=== PATIENT | female | born 1960 | race Caucasian/White ===

== ENCOUNTER 2023-10-13 09:57 | Outpatient (OUT) | payer OTHER, SELFPAY ==
[2023-10-15 11:08] LABS: Lyme Total Antibody CIA Negative (Negative)
== END 2023-10-13 09:58 | disposition home or self-care (01) ==
LOC: LAB 10:07
PROVIDERS: PCP Family Medicine; Visit Provider Nurse Practitioner Family
DX: R51.9 Headache, unspecified (principal); M25.50 Pain in unspecified joint; W57.XXXA Bitten or stung by nonvenomous insect and other nonvenomous arthropods, initial encounter
CPT/HCPCS: 36415; 86618

== ENCOUNTER 2024-01-19 00:46 | Emergency (ER) | payer OTHER, MEDICARE, SELFPAY ==
[2024-01-19 00:50] VITALS: BP 171/90; PULSE 66; TEMP 36.5; O2SAT 98; BMI 27.4
[2024-01-19 00:53] VITALS: PULSE 60
--- NOTE | 2024-01-19 01:02 | ECG_ITS ---
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
--- NOTE | 2024-01-19 01:02 | XR_ITS ---
The [address] [address] Patient Name: KARLENE JIMENEZ MRN: [id number] date: 1960 Sex: F Assigned Patient Location: ER Current Patient Location: Accession/Order Number: [id number] Exam Date: 01/19/2024 01:13 Report Date: 01/19/2024 03:55 At the request of: RAH SILVER Procedure: XR chest 1V EXAM: XR chest 1V HISTORY: SOB COMPARISON: None. TECHNIQUE: One view of the chest was obtained. FINDINGS: The cardiac silhouette is normal in size. The lungs are clear. There is no significant pneumothorax or pleural effusion. No acute osseous abnormality is seen. XR/XR chest 1V IMPRESSION: 1. No acute cardiopulmonary abnormality. Electronically authenticated by: Yovanny ONEAL Date: 01/19/2024 03:55
--- NOTE | 2024-01-19 01:02 | ED.GENADUL1 ---
HPI HPI - General Adult General Chief complaint: Shortness of Breath/Dyspnea Stated complaint: SOB Time Seen by Provider: 01/19/24 00:58 Source: patient Mode of arrival: walk-in Limitations: no limitations History of Present Illness HPI narrative: 63-year-old female presents to the emergency department for shortness of breath. She has had this for 3 weeks. She has some pain in her shoulders but no chest pain or back pain. She states a week ago she saw her doctor who put her on an antibiotic and she felt a bit better after that. She has not completely gotten better. No history of PE. She states she has asthma and is a smoker and she was just put on an inhaler last week. Related Data Home Medications ?Medication ?Instructions ?Recorded ?Confirmed albuterol sulfate 2.5 mg/3 mL 2.5 mg inhalation Q4H PRN 01/19/24 01/19/24 (0.083 %) solution for nebulization shortness of breath or wheezing albuterol sulfate 90 mcg/actuation 2 puff inhalation Q4H 01/19/24 01/19/24 aerosol inhaler duloxetine 60 mg capsule,delayed mg PO 01/19/24 release fluticasone 250 mcg-salmeterol 50 1 inh inhalation Q12H 01/19/24 01/19/24 mcg/dose blistr powdr for inhalation hydrocodone 5 mg-acetaminophen 325 1 tab PO Q8H 01/19/24 01/19/24 mg tablet tizanidine 4 mg tablet 4 mg PO Q8H 01/19/24 01/19/24 Previous Rx's ?Medication ?Instructions ?Recorded prednisone 10 mg tablet See Rx Instructions .Route 01/19/24 .COMPLEX #30 tabs Allergies Allergy/AdvReac Type Severity Reaction Status Date / Time Sulfa (Sulfonamide Allergy Unknown Unknown Verified 01/19/24 00:57 Antibiotics) levofloxacin (From Levaquin) Allergy Rash Verified 01/19/24 00:57 Opioid HPI Opioid Management Most Recent Opioid Data: Last Pain Scale 8 01/19/24 01:25 01/19/24 Review of Systems ROS Narrative A ten point review of systems is negative except as noted above. PFSH PFSH Social History Little interest or pleasure in doing things: not at all Feeling down, depressed, or hopeless: not at all Exam Narrative Exam Narrative: Nurses note and vital signs reviewed and patient is not hypoxic. General: The patient appears well and in no apparent distress. Patient is resting comfortably on cart. Skin: Warm, dry, no pallor noted. There is no rash noted. Head: Normocephalic, atraumatic Eye: Normal conjunctiva, no drainage Ears, Nose, Mouth, and Throat: oral mucosa is moist. Nares patent. Cardiovascular: Regular Rate and Rhythm Respiratory: Patient is in no distress, no accessory muscle use, lungs show end expiratory rhonchi, minimal. Breath sounds are equal Back: non-tender GI: Soft and nontender Musculoskeletal: The patient has no evidence of calf tenderness, no pitting edema, symmetrical pulses noted bilaterally Neurological: A&O x4, normal speech Psychiatric: Cooperative Constitutional Vital Signs, click to edit/add: Last Vital Signs Temp 97.7 F 01/19/24 00:50 Pulse 62 01/19/24 02:13 Resp 18 01/19/24 02:13 BP 171/90 H 01/19/24 00:50 Pulse Ox 96 01/19/24 02:13 O2 Del Method Room Air 01/19/24 02:13 Course Vital Signs Vital signs: Vital Signs Temperature 97.7 F 01/19/24 00:50 Pulse Rate 66 01/19/24 00:50 Respiratory Rate 20 01/19/24 00:50 Blood Pressure 171/90 H 01/19/24 00:50 Pulse Oximetry 98 01/19/24 00:50 Oxygen Delivery Method Room Air 01/19/24 00:50 Temperature 97.7 F 01/19/24 00:50 Pulse Rate 62 01/19/24 02:13 Respiratory Rate 18 01/19/24 02:13 Blood Pressure 171/90 H 01/19/24 00:50 Pulse Oximetry 96 01/19/24 02:13 Oxygen Delivery Method Room Air 01/19/24 02:13 Medical Decision Making MDM Narrative Medical decision making narrative: Her workup here is negative including troponin and D-dimer. Chest x-ray on my interpretation showed no acute findings. My clinical impression is that she has COPD and she was encouraged to quit smoking. She is being referred to pulmonology for appropriate follow-up. Findings were discussed with the patient. Differential Diagnosis Differential Diagnosis: Pneumonia, COPD, PE, heart disease Lab Data Lab results reviewed: Yes I reviewed the patient's lab results Labs: Lab Results 01/19/24 01/19/24 Range/Units 01:08 01:35 WBC 12.6 H (4.0-11.0) 10^3/uL RBC 4.36 (4.20-5.40) 10^6/uL Hgb 12.8 (12.0-16.0) g/dL Hct 39.5 (36.0-48.0) % MCV 90.6 (81.0-99.0) fL MCH 29.4 (26.7-34.0) pg MCHC 32.4 (29.9-35.2) g/dL RDW 13.1 (11.0-15.0) % Plt Count 304 (150-450) 10^3/uL MPV 9.3 L (9.5-13.5) fL Neut % (Auto) 50.7 (43.0-75.0) % Lymph % (Auto) 35.0 (20.5-60.0) % [place] % (Auto) 9.5 (1.7-12.0) % Eos % (Auto) 4.3 (0.9-7.0) % Baso % (Auto) 0.2 (0.2-2.0) % Neut # (Auto) 6.4 (1.4-6.5) 10^3/uL Lymph # (Auto) 4.4 H (1.2-3.8) 10^3/uL [place] # (Auto) 1.2 H (0.3-0.8) 10^3/uL Eos # (Auto) 0.5 (0.0-0.7) 10^3/uL Baso # (Auto) 0.0 (0.0-0.1) 10^3/uL Abs Immat Gran (auto) 0.04 H (0.00-0.03) 10^3/uL Imm/Tot Granulo (auto) 0.3 (0.0-0.5) % D-Dimer 0.43 (<=0.59) mg/L FEU Sodium 138 (136-145) mmol/L Potassium 4.0 (3.5-5.1) mmol/L Chloride 105 (98-107) mmol/L Carbon Dioxide 28.7 (21.0-32.0) mmol/L Anion Gap 8.3 BUN 27.0 H (7.0-18.0) mg/dL Creatinine 0.92 (0.55-1.02) mg/dL Est GFR ( Amer) >60 (>=60 mL/min/1.73m^2) Est GFR (Non-Af Amer) >60 (>=60 mL/min/1.73m^2) BUN/Creatinine Ratio 29.3 Glucose 78 (74-106) mg/dL Calcium 9.0 (8.5-10.1) mg/dL Troponin I High Sens 5.8 (4.0-51.3) pg/mL Influenza Type A Ag Negative Influenza Type B Ag Negative SARS-CoV-2 Ag (CV2AG) Negative (NEGATIVE) ECG Data Attestation: I personally reviewed and interpreted this ECG as follows: (EKG on my interpretation shows sinus rhythm with rate of 60 and no acute change) Discharge Plan Discharge Chief Complaint: Shortness of Breath/Dyspnea Clinical Impression: COPD (chronic obstructive pulmonary disease) Patient Disposition: Home, Self-Care Time of Disposition Decision: 03:27 Condition: Good Mode of Transportation: Private Vehicle Prescriptions / Home Meds: New prednisone 10 mg tablet See Rx Instructions .ROUTE .COMPLEX Qty: 30 0RF Rx Instructions: 4 by mouth daily for three days then 3 by mouth daily for three days then 2 by mouth daily for three days then 1 by mouth daily for three days No Action albuterol sulfate 2.5 mg /3 mL (0.083 %) solution for nebulization 2.5 mg inhalation Q4H PRN (Reason: shortness of breath or wheezing) albuterol sulfate 90 mcg/actuation HFA aerosol inhaler 2 puff INHALATION Q4H duloxetine 60 mg capsule,delayed release(DR/EC) PO fluticasone propion-salmeterol 250-50 mcg/dose blister with device 1 inh INHALATION Q12H hydrocodone-acetaminophen 5-325 mg tablet 1 tab PO Q8H tizanidine 4 mg tablet 4 mg PO Q8H Print Language: Turkish Instructions: COPD (Chronic Obstructive Pulmonary Disease) (ED) Referrals: Celia Blank MD [Primary Care Provider] - 1 week
[2024-01-19 01:20] LABS: Basophils Percent Auto 0.2 % (0.2-2.0); Eosinophils Absolute Auto 0.5 10^3/uL (0.0-0.7); Eosinophils Percent Auto 4.3 % (0.9-7.0); Hematocrit 39.5 % (36.0-48.0); Hemoglobin 12.8 g/dL (12.0-16.0); Immature Granulocytes Abs Auto 0.04 10^3/uL (0.00-0.03); Immature Granulocytes Pct Auto 0.3 % (0.0-0.5); Lymphocytes Absolute Auto 4.4 10^3/uL (1.2-3.8); Mean Corpuscular HGB Conc 32.4 g/dL (29.9-35.2); Mean Corpuscular Hemoglobin 29.4 pg (26.7-34.0); Mean Corpuscular Volume 90.6 fL (81.0-99.0); Mean Platelet Volume 9.3 fL (9.5-13.5); Monocytes Absolute Auto 1.2 10^3/uL (0.3-0.8); Monocytes Percent Auto 9.5 % (1.7-12.0); Neutrophils Absolute Auto 6.4 10^3/uL (1.4-6.5); Neutrophils Percent Auto 50.7 % (43.0-75.0); Platelet Count 304 10^3/uL (150-450); Red Blood Count 4.36 10^6/uL (4.20-5.40); Red Cell Distribution Width 13.1 % (11.0-15.0); White Blood Count 12.6 10^3/uL (4.0-11.0)
[2024-01-19 01:34] LABS: D Dimer 0.43 mg/L FEU (<=0.59)
[2024-01-19 01:37] LABS: Anion Gap 8.3; BUN Creatinine Ratio 29.3; Carbon Dioxide 28.7 mmol/L (21.0-32.0); Chloride 105 mmol/L (98-107); Estimated GFR (African America >60 (>=60 mL/min/1.73m^2); Estimated GFR (Non-African Ame >60 (>=60 mL/min/1.73m^2); Glucose 78 mg/dL (74-106); Sodium 138 mmol/L (136-145); Troponin I High Sensitivity 5.8 pg/mL (4.0-51.3)
[2024-01-19 01:53] LABS: Influenza Virus A Antigen Negative; Influenza Virus B Antigen Negative; Internal Control Within Normal Limits; SARS-CoV-2 Ag NEGATIVE (NEGATIVE)
[2024-01-19 02:13] VITALS: PULSE 62; O2SAT 96
[2024-01-19] MEDS: ALBUTEROL SULFATE 2.5 MG/3 ML VIAL NEB IH (02:13)
== END 2024-01-19 03:48 | disposition home or self-care (01) ==
PROVIDERS: Emergency Provider Emergency Medicine; PCP Family Medicine
DX: J44.9 Chronic obstructive pulmonary disease, unspecified (principal); J45.909 Unspecified asthma, uncomplicated; F17.200 Nicotine dependence, unspecified, uncomplicated; Z20.822 Contact with and (suspected) exposure to COVID-19
CPT/HCPCS: 36415; 71045; 80048; 84484; 85025; 85378; 87804; 87811; 93005; 94640; 99285

== ENCOUNTER 2024-02-01 00:14 | Emergency (ER) | payer OTHER, MEDICARE, SELFPAY ==
[2024-02-01 00:16] VITALS: BP 170/99; PULSE 92; TEMP 36.4; O2SAT 98; BMI 27.4
--- NOTE | 2024-02-01 00:19 | XR_ITS ---
The [address] [address] Patient Name: KARLENE JIMENEZ MRN: [id number] date: 1960 Sex: F Assigned Patient Location: ED.MAIN Current Patient Location: Accession/Order Number: [id number] Exam Date: 02/01/2024 00:26 Report Date: 02/01/2024 04:12 At the request of: RAH SILVER Procedure: XR ribs RT min 3V w CXR1V EXAMINATION: XR ribs RT min 3V w CXR1V HISTORY: Fell 2 days ago, right anterior lower rib pain COMPARISON: XR chest 1124 FINDINGS: LUNGS: Underexpanded lungs with new thick curvilinear stranding opacity within left lung base. PLEURA: No pneumothorax, effusion, or pleural thickening. MEDIASTINUM: No visible mass or adenopathy. CARDIAC: No cardiomegaly or cardiac silhouette abnormality. RIBS: Minimally displaced lateral right seventh rib fracture. OTHER: Negative. XR/XR ribs RT min 3V w CXR1V IMPRESSION: 1. Minimally displaced acute fracture of the lateral right seventh rib. 2. Discoid atelectasis versus infiltrates within left lung base; new compared to 01/19/2024. Electronically authenticated by: CONY NEWTON Date: 02/01/2024 04:12
--- NOTE | 2024-02-01 00:20 | ED.FALL1 ---
HPI HPI - Fall General Chief Complaint: Fall Stated Complaint: flank pain Time Seen by Provider: 02/01/24 00:16 History of Present Illness HPI Narrative: 64-year-old female presents for pain in her right anterior lower rib region. She had fallen 2 days ago when she tripped and hit this area. She did not hit her head. She has been having some degree of pain since then but it got worse tonight. She does not complain of abdominal pain or shortness of breath. The pain is severe and sharp. Related Data Home Medications ?Medication ?Instructions ?Recorded ?Confirmed albuterol sulfate 2.5 mg/3 mL 2.5 mg inhalation Q4H PRN 01/19/24 02/01/24 (0.083 %) solution for nebulization shortness of breath or wheezing albuterol sulfate 90 mcg/actuation 2 puff inhalation Q4H 01/19/24 02/01/24 aerosol inhaler fluticasone 250 mcg-salmeterol 50 1 inh inhalation Q12H 01/19/24 02/01/24 mcg/dose blistr powdr for inhalation hydrocodone 5 mg-acetaminophen 325 1 tab PO Q8H 01/19/24 02/01/24 mg tablet tizanidine 4 mg tablet 4 mg PO Q8H 01/19/24 02/01/24 omeprazole 20 mg capsule,delayed 20 mg PO DAILY 02/01/24 02/01/24 release Previous Rx's ?Medication ?Instructions ?Recorded prednisone 10 mg tablet See Rx Instructions .Route 01/19/24 .COMPLEX #30 tabs Allergies Allergy/AdvReac Type Severity Reaction Status Date / Time Sulfa (Sulfonamide Allergy Unknown Unknown Verified 02/01/24 00:25 Antibiotics) levofloxacin (From Levaquin) Allergy Rash Verified 02/01/24 00:25 acetaminophen (From Percocet) AdvReac Intermediate Vomiting Verified 02/01/24 00:25 oxycodone (From Percocet) AdvReac Intermediate Vomiting Verified 02/01/24 00:25 Opioid HPI Opioid Management Most Recent Pain and Opioid Data: Last Pain Scale 8 01/19/24 01:25 01/19/24 Last MAR Pain Assessment 02/01/24 00:30 Review of Systems ROS Narrative A ten point review of systems is negative except as noted above. PFSH PFSH Social History Little interest or pleasure in doing things: not at all Feeling down, depressed, or hopeless: not at all Exam Narrative Exam Narrative: Nurses note and vital signs reviewed and patient is not hypoxic. General: The patient appears in no acute respiratory distress. She is clearly uncomfortable. Skin: Warm, dry, no pallor noted. There is no rash noted. Head: Normocephalic, atraumatic Eye: Normal conjunctiva, no drainage Ears, Nose, Mouth, and Throat: oral mucosa is moist. Nares patent. Cardiovascular: Regular Rate and Rhythm Respiratory: Patient is in no distress, no accessory muscle use, lungs are clear to auscultation, no wheezing, rales or rhonchi; she has tenderness in the anterior right lower rib region. No crepitus bruise or abrasion. No tenderness on the abdomen including the right upper quadrant. GI: Normal bowel sounds, no tenderness to palpation, no masses appreciated. No rebound, guarding, or rigidity noted. Musculoskeletal: The patient has no evidence of calf tenderness, no pitting edema, symmetrical pulses noted bilaterally Neurological: A&O, normal speech Psychiatric: Cooperative, somewhat anxious Constitutional Vital Signs, click to edit/add: Last Vital Signs Temp 97.6 F 02/01/24 00:16 Pulse 92 H 02/01/24 00:16 Resp 20 02/01/24 00:16 BP 170/99 H 02/01/24 00:16 Pulse Ox 98 02/01/24 00:16 O2 Del Method Room Air 02/01/24 00:16 Course Vital Signs Vital signs: Vital Signs Temperature 97.6 F 02/01/24 00:16 Pulse Rate 92 H 02/01/24 00:16 Respiratory Rate 20 02/01/24 00:16 Blood Pressure 170/99 H 02/01/24 00:16 Pulse Oximetry 98 02/01/24 00:16 Oxygen Delivery Method Room Air 02/01/24 00:16 Temperature 97.6 F 02/01/24 00:16 Pulse Rate 92 H 02/01/24 00:16 Respiratory Rate 20 02/01/24 00:16 Blood Pressure 170/99 H 02/01/24 00:16 Pulse Oximetry 98 02/01/24 00:16 Oxygen Delivery Method Room Air 02/01/24 00:16 MDM - Fall MDM Narrative Medical decision making narrative: A single rib fracture is identified. No pneumothorax. She is feeling much improved after being given IM Toradol and has plenty of [place] at home for pain. OPEP dispensed and she will follow-up with her doctor in a week. Treatment diagnosis and follow-up were discussed with the patient. Differential Diagnosis Differential diagnosis: Likely other (Rib fracture, rib contusion, pneumothorax) Imaging Data Right rib x-rays: My impression: Right seventh rib fracture. No pneumothorax. Discharge Plan Discharge Chief Complaint: Fall Clinical Impression: Fracture, rib Patient Disposition: Home, Self-Care Time of Disposition Decision: :07 Condition: Good Mode of Transportation: Private Vehicle Prescriptions / Home Meds: No Action albuterol sulfate 2.5 mg /3 mL (0.083 %) solution for nebulization 2.5 mg inhalation Q4H PRN (Reason: shortness of breath or wheezing) albuterol sulfate 90 mcg/actuation HFA aerosol inhaler 2 puff INHALATION Q4H fluticasone propion-salmeterol 250-50 mcg/dose blister with device 1 inh INHALATION Q12H hydrocodone-acetaminophen 5-325 mg tablet 1 tab PO Q8H tizanidine 4 mg tablet 4 mg PO Q8H prednisone 10 mg tablet See Rx Instructions .ROUTE .COMPLEX Qty: 30 0RF Rx Instructions: 4 by mouth daily for three days then 3 by mouth daily for three days then 2 by mouth daily for three days then 1 by mouth daily for three days omeprazole 20 mg capsule,delayed release(DR/EC) 20 mg PO DAILY Print Language: Azeri Instructions: Rib Fracture (ED) Additional Instructions: OPEP 10 times every hour while awake. Recheck from family physician in a week. Referrals: Celia Blank MD [Primary Care Provider] - 1 week
--- NOTE | 2024-02-01 00:22 | ECG_ITS ---
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
[2024-02-01] MEDS: KETOROLAC TROMETHAMINE 60 MG/2 ML VIAL IM (00:30)
--- OUTSIDE RECORDS SUMMARY | 2024-02-01 00:41 | XMS_ITS | CCD ---
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 Role Phone CELIA GARRISON Primary Care Physician BLADIMIR PROVIDERCELIA Referring Unavailab le NILL, Mihaela Michelle Attending Unavailable NILL, Mihaela Michelle Attending Unavailable NILL, Mihaela Michelle Attending Unavailable NILL, Mihaela Michelle Attending Unavailable MISC, DR MIDDLETON Primary Care Unavailable REQUEST, DR REYES LISTED Attending Unavaila ble REQUEST, DR REYES LISTED Consulting Unavaila ble REQUEST, DR REYES LISTED Admitting Unavaila ble GARRISON, DR CLEIA Ward Primary Care Unavailable NILL, DR CHAIREZ Admitting Unavailable NILL, DR CHAIREZ Attending Unavailable NILL, DR CHAIREZ Consulting Unavailable HANNA, RADHIKA Consulting Unavailable MORGOS, DARREL Consulting Unavailable NILL, DR CHAIREZ Admitting Unavailable MISC, DR MIDDLETON Primary Care Unavailable NILL, DR CHAIREZ Attending Unavailable NILL, DR CHAIREZ Consulting Unavailable MD Celia Garrison Primary Care Provider DO Alexandro Galvez Attending Provider [phone] Celia Garrison Primary Care Unavailable Alexandro Galvez Attending Unavailable Alexandro Galvez Admitting Unavailable Allergies Allergy Classification Reported Allergen(s) Allergy Type Date of Onset Reaction(s) Facility (3 sources) Acetaminophen / oxyCODONE; Translations: [acetaminophen-oxy codone] Drug Allergy Nausea (finding) [facility] [place] (3 sources) Alendronate; Translations: [alendronate] Drug Allergy Muscle pain (finding) [facility] [place] (9 sources) Clarithromycin; Translations: [clarithromycin] Drug Allergy 4 Unknown (qualifier value) [facility] [place] (9 sources) levoFLOXacin; Translations: [levofloxacin] Drug Allergy 4 Eruption of skin (disorder) [facility] [place] (3 sources) Sulfonamides (Antibiotic); Translations: [sulfa drugs] Drug allergy Unknown (qualifier value) [facility] [place] (1 source) Acetaminophen / oxyCODONE Drug Allergy 6 [facility] (1 source) Alendronate Drug Allergy 6 [facility] (1 source) Clarithromycin Drug Allergy 6 [facility] (1 source) levoFLOXacin Drug Allergy 6 [facility] (1 source) Quinolones (Antibiotic) Drug allergy (disorder) 6 [facility] (1 source) Sulfonamides (Antibiotic) Drug allergy (disorder) 4 [facility] (1 source) Acetaminophen Drug Allergy 4 [facility] (6 sources) Alendronate Drug Allergy 4 [facility] (6 sources) oxyCODONE Drug Allergy 4 [facility] (6 sources) Sulfonamides (Antibiotic) Allergy to substance 4 Comment:as a young child, pt. cannot recall reaction [facility] (6 sources) Biaxin XL *MACROLIDES* Allergy to substance 4 [facility] Medications Current Medications Medication Drug Class(es) Dates Sig (Normalized) Sig (Original) [id number] 200 actuat albuterol 0.09 mg/actuat metered dose inhaler (20 sources) beta2-Adrenergic Agonist Start: 01-23-2024 take 1 dose by inhalation every four to six hours as needed Albuterol Sulfate Active 0 .ROUTE .COMPLEX January 23, 2024 10:48am INHALE 1 vial via NEBULIZER EVERY 4 TO 6 HOURS NEEDED Start: 01-09-2024 End: 01-23-2024 take 2.5 mg by inhalation every four to six hours Albuterol Sulfate Discontinued 2.5 MG INHALATION EVERY 4-6 HOURS January 09, 2024 12:00am January 23, 2024 10:48am Start: 09-08-2023 End: 01-24-2024 take 1 puff(s) by inhalation every four hours Albuterol Sulfate Discontinued 2 PUFF INHALATION Every 4 hours 8.5 November 01, 2023 9:22am December 05, 2023 2:48pm Start: 07-28-2023 End: 09-08-2023 take 2 puff(s) by inhalation every four hours as needed Albuterol Sulfate Discontinued 2 PUFF INHALATION Every 4 hours July 28, 2023 12:00am September 08, 2023 10:39am FreeTextSi puff Inhalation every 4 hrs prn; Note: Source Status: Refill; Refills: 2; Provider: Bladimir Ward Start: 12-17-2021 take 2 puff(s) by in halation every four hours ProAir HFA 90 mcg/inh inhalation aerosol 2 puff(s), Inhalation, q4hr Shortness of breath or wheezing, Refill(s) 0 Start Date: 12/17/21 Status: Ordered amitriptyline hydrochloride 50 mg oral tablet (8 sources) Tricyclic Antidepressant Start: 07-28-2023 take 1 tablet by mouth once daily at bedtime Amitriptyline Active 50 MG PO Daily at bedtime July 28, 2023 12:00am FreeTextSi tablet at bedtime Orally Once a day; Note: Source Status: Start; Refills: 3; Qty: 90 Tablet; Provider: Bladimir Ward Start: 12-17-2021 take 1 tablet by margarito th once daily at bedtime amitriptyline 50 mg Tab 50 mg = 1 tab(s), Oral, Once a day (at bedtime), Refills(s) 0 Start Date: 12/17/21 Status: Ordered cefdinir 300 mg oral capsule (3 sources) Cephalosporin Antibacterial Start: 01-09-2024 take 300 mg by mouth twice daily Cefdinir Active 300 MG PO Twice daily 14 January 09, 2024 12:00am diclofenac potassium 50 mg oral tablet (1 source) Nonsteroidal Anti-inflammatory Drug Start: 12-17-2021 take 1 tablet by mouth twice daily diclofenac potassium 50 mg oral tablet 50 mg = 1 tab(s), Oral, BID, Refills(s) 0 Start Date: 12/17/21 Status: Ordered fluticasone (9 sources) Corticosteroid Start: 01-24-2024 take 1 puff(s) by inhalation twice daily Fluticasone Propionate Active 1 PUFF INHALATION Twice daily 10.6 January 24, 2024 8:18am administer with spacer Start: 12-05-2023 End: 01-24-2024 take 1 puff(s) by inhalation twice daily Fluticasone Propionate Discontinued 1 PUFF INHALATION Twice daily .December 05, 2023 2:47pm January 24, 2024 8:18am administer with spacer Start: 12-05-2023 take 1 puff(s) by in halation twice daily Fluticasone Propionate Active 1 PUFF INHALATION Twice daily .December 05, 2023 2:47pm administer with spacer Start: 11-01-2023 End: 12-05-2023 take 1 puff(s) by inhalation twice daily Fluticasone Propionate Discontinued 1 PUFF INHALATION Twice daily November 01, 2023 12:00am December 05, 2023 2:48pm administer with spacer Start: 11-01-2023 take 1 puff(s) by in halation twice daily Fluticasone Propionate Active 1 PUFF INHALATION Twice daily November 01, 2023 12:00am administer with spacer omeprazole 20 mg oral tablet (1 source) Proton Pump Inhibitor Start: 12-22-2021 take 20 mg by mouth once daily Prilosec OTC 20 mg, Oral, Daily, Refills(s) 0 Start Date: 12/22/21 Status: Ordered pantoprazole 40 mg delayed release oral tablet (1 source) Proton Pump Inhibitor Start: 02-01-2022 take 1 tablet by mouth once daily Pantoprazole [address] Tab 40 mg = 1 tab(s), Oral, Daily, Refills(s) 0 Start Date: 02/01/22 Status: Ordered predniSONE 20 mg oral tablet (3 sources) Start: 01-09-2024 take 20 mg by mouth twice daily Prednisone Active 20 MG PO Twice daily January 09, 2024 12:00am sucralfate 1000 mg oral tablet (1 source) Aluminum Complex Start: 02-01-2022 sucralfate ta b 1 gm = 1 tab(s), Oral, QIDACHS, Refills(s) 0 Start Date: 02/01/22 Status: Ordered Completed/Discontinued Medications Medication Drug Class(es) Dates Sig (Normalized) Sig (Original) acetaminophen 325 mg / HYDROcodone bitartrate 5 mg oral tablet (20 sources) Opioid Agonist Start: 08-03-2023 End: 01-24-2024 take 1 tablet by mouth three times daily Hydrocodone-Acetami nophen Discontinued 1 TAB PO Three times daily December 27, 2023 January 24, 2024 8:18am Start: 08-03-2023 take 1 tablet by margarito th three times daily Hydrocodone-Acetaminophen Active 1 TAB P O Three times daily August 03, 2023 Start: 05-26-2023 End: 07-31-2023 take 1 tablet by mouth three times daily Hydrocodone-Acetaminophen Discontinued 1 TAB PO Three times daily May 26, 2023 June 26, 2023 12:47pm Start: 12-17-2021 take 1 tablet by margarito th three times daily acetaminophen-hydrocodone 325 mg-5 mg or al tablet 1 tab(s), Oral, TID, Refill(s) 0 Start Date: 12/17/21 Status: Ordered doxycycline hyclate 100 mg oral tablet (5 sources) Tetracycline-class Drug Start: 10-13-2023 End: 11-01-2023 take 100 mg by mouth twice daily Doxycycline Hyclate Discontinued 100 MG PO Twice daily 27 01October 13, 2023 12:00am November 01, 2023 9:02am DULoxetine 60 mg delayed release oral capsule (20 sources) Serotonin and Norepinephrine Reuptake Inhibitor Start: 11-01-2023 End: 01-09-2024 take 60 mg by mouth once daily Duloxetine Discontinued 60 MG PO Daily December 05, 2023 2:48pm January 09, 2024 3:24pm Start: 07-31-2023 End: 11-01-2023 take 1 capsule by mouth once daily Duloxetine (Cymbalta) 30 mg capsule,delayed release(DR/EC) Discontinued 30 MG PO Daily October 13, 2023 3:47pm November 01, 2023 9:18am Fluticasone Propion-Salmeterol (8 sources) Corticosteroid, beta2-Adrenergic Agonist Start: 07-28-2023 End: 11-01-2023 take 1 puff(s) by inhalation twice daily Fluticasone Propion-Salmeterol Discontinued 1 INH INHALATION Twice daily July 28, 2023 12:00am November 01, 2023 9:03am FreeTextSi puff Inhalation Twice a day; Note: Source Status: Start; Refills: 3; Provider: Bladimir Ward Start: 07-28-2023 take 1 puff(s) by in halation twice daily Fluticasone Propion-Salmeterol Active 1 INH INHALATION Twice daily July 28, 2023 12:00am FreeTextSi puff Inhalation Twice a day; Note: Source Status: Start; Refills: 3; Provider: Bladimir Ward Start: 12-17-2021 take 2 puff(s) by in halation twice daily Advair HFA 115 mcg-21 mcg Aerosol 2 puff(s), Inhalation, BID, Refill(s) 6 Start Date: 12/17/21 Status: Ordered Methylprednisolone (4 sources) Corticosteroid Start: 11-01-2023 End: 12-05-2023 Methylprednisolone Discontin ued 0 PO per package directions November 01, 2023 12:00am December 05, 2023 2:48pm PO PER PKG DIR for 6 days Start: 11-01-2023 Methylpredniso lone Active 0 PO per package directions November 01, 2023 12:00am PO PER PKG DIR for 6 days pregabalin 50 mg oral capsule (6 sources) Start: 07-31-2023 End: 07-31-2023 take 1 capsule by mouth twice daily Pregabalin (Lyrica) 50 mg capsule Discontinued 50 MG PO Twice daily 60 30 July 31, 2023 12:00am July 31, 2023 4:27pm tiZANidine 4 mg oral tablet (20 sources) Central alpha-2 Adrenergic Agonist Start: 05-26-2023 End: 01-24-2024 take 4 mg by mouth three times daily Tizanidine Discontinued 4 MG PO Three times daily May 26, 2023 1:10pm August 28, 2023 3:10pm Start: 12-17-2021 take 1 tablet by margarito th three times daily tiZANidine 4 mg Tab 4 mg = 1 tab(s), Oral, TID, Refills(s) 0 Start Date: 12/17/21 Status: Ordered Problems Problem Classification Problem Date Documented Date Episodic/Chronic Abdominal hernia (1 source) Diaphragmatic hernia without obstruction or gangrene; Translations: [DIAPH HERNIA W/O OBST/GANGRENE] Onset: 01-17-2022 Episodic Abdominal pain (7 sources) Epigastric pain; Translations: [Epigastric pain] Onset: 12-22-2021 Episodic Anal and rectal conditions (1 source) Rectal polyp; Translations: [RECTAL POLYP] Onset: 01-17-2022 Episodic Asthma (2 sources) Asthma 12-17-2021 Chronic Chronic obstructive pulmonary disease and bronchiectasis (15 sources) Chronic obstructive lung disease; Translations: [Chronic obstructive pulmonary disease, unspecified] Onset: 01-17-2022 12-17-2021 Chronic Digestive congenital anomalies (1 source) Other specified congenital malformations of intestine; Translations: [OTH SPEC CONGEN MALFORM INTESTINE] Onset: 01-17-2022 Chronic Disorders of lipid metabolism (2 sources) 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 Diverticulosis and diverticulitis (1 source) Diverticulosis of large intestine without perforation or abscess without bleeding; Translations: [DVRTCLOS LG INT NO PERF/ABSC W/O BL] Onset: 01-17-2022 Chronic E Codes: Natural/environment (8 sources) Tick bite; Translations: [Bitten or stung by nonvenomous insect and other nonvenomous arthropods, initial encounter] 10-13-2023 Episodic Esophageal disorders (7 sources) Gastroesophageal reflux disease without esophagitis; Translations: [Gastro-esophageal reflux disease without esophagitis] Onset: 12-22-2021 Chronic Gastritis and duodenitis (1 source) Unspecified chronic gastritis without bleeding; Translations: [UNS CHRONIC GASTRITIS W/O BLEEDING] Onset: 01-17-2022 Chronic Headache; including migraine (8 sources) Headache; Translations: [Headache] 10-13-2023 Episodic Mood disorders (2 sources) Depressive disorder 12-17-2021 Chronic Osteoarthritis (4 sources) Primary gonarthrosis, bilateral; Translations: [Bilateral primary osteoarthritis of knee] 01-24-2024 Chronic Other aftercare (1 source) Other yard spotter (current) drug therapy; Translations: [OTH CONSTRUCTION EXECUTIVE CURRENT DRUG THERAPY] Onset: 01-17-2022 Episodic Other bone disease and musculoskeletal deformities (2 sources) Osteopenia 12-17-2021 Episodic Other bone disease and musculoskeletal deformities (1 source) Other specified disorders of bone density and structure, unspecified site; Translations: [OTH D/O BONE DEN STRUCT UNS SITE] Onset: 01-17-2022 Episodic Other non-traumatic joint disorders (5 sources) Joint pain; Translations: [Pain in unspecified joint] 10-13-2023 Episodic Other non-traumatic joint disorders (3 sources) Pain in unspecified joint; Translations: [Pain in joint, site unspecified] 10-13-2023 Episodic Other non-traumatic joint disorders (7 sources) Pain in right knee; Translations: [Pain in both knees] Onset: 01-24-2024 01-10-2024 Episodic Other non-traumatic joint disorders (1 source) Pain in left knee; Translations: [Pain in left knee] Onset: 01-24-2024 Episodic Other nutritional; endocrine; and metabolic disorders (2 sources) Overweight in adulthood with body mass index of 25 or more but less than 30 12-22-2021 Episodic Other screening for suspected conditions (not mental disorders or infectious disease) (2 sources) Screening for malignant neoplasm of colon done; Translations: [Encounter for screening for malignant neoplasm of colon] Onset: 12-22-2021 Episodic Residual codes; unclassified (3 sources) Early satiety; Translations: [Early satiety] Onset: 12-22-2021 Episodic Residual codes; unclassified (3 sources) Tobacco user; Translations: [Tobacco use] Onset: 12-22-2021 Episodic Residual codes; unclassified (2 sources) Chronic back pain 12-17-2021 Episodic Residual codes; unclassified (1 source) Early satiety; Translations: [EARLY SATIETY] Onset: 01-17-2022 Episodic Spondylosis; intervertebral disc disorders; other back problems (20 sources) Lumbar radiculopathy; Translations: [Radiculopathy, lumbar region] 07-31-2023 Episodic Substance-related disorders (1 source) Nicotine dependence, cigarettes, uncomplicated; Translations: [NICOTINE DEPEND CIGARETTES UNCOMP] Onset: 01-17-2022 Chronic Unclassified (2 sources) Patient encounter status 12-22-2021 Unclassified (1 source) CONTACT W/AND (SUSP) EXPOS COVID-19; Translations: [CONTACT W/AND (SUSP) EXPOS COVID-19] Onset: 01-13-2022 Results Test Name Value Interpretation Reference Range Facility XR knee BI 3V - NOT FOR ER U Sanam 01-24-2024 XR knee BI 3V - NOT FOR ER USE [facility] [address] [place] [address] XRay Report Signed Patient: Cristine Manley MR#: [id number] 53 : 1960 Acct:[id number] Age/Sex: 64 / F ADM Date: 01/24/24 Loc: [facility] Room: Type: [facility] Attending Dr: Alexandro Galvez DO Copies to: Alexandro Galvez DO Ordering Provider: Alexandro Galvez DO Date of Service: 01/24/24 XR/XR knee BI 3V - NOT FOR ER USE: M25.561 - Pain in right knee XR knee BI 3V - NOT FOR ER USE 01/24/2024 2:53 PM SIGNS AND SYMPTOMS: Bilateral knee pain anteriorly, right greater than left. PROTOCOL: Frontal, lateral, and sunrise views of the bilateral knees COMPARISON: None FINDINGS: There is narrowing weightbearing joint spaces, greatest medially on the right and laterally on the left. Poles of the patella. XR/XR knee BI 3V - NOT FOR ER USE IMPRESSION: No fracture or dislocation. Degenerative changes are noted, greatest in the medial weightbearing joint space on the right and lateral weightbearing joint space on the left. Impression dictated by: Sunday Graham M.D.01/24/2024 3:45 PM Dictation Location: [place] [address] Transcribed By: [facility] 01/24/24 1545 Dictated By: Sunday Graham II, MD 01/24/24 154 Signed By: 01/24/24 154 Normal [facility] Basophils Auto (Bld) [#/Vol] on 01-19-2024 Basophils (Bld) [#/Vol] 0.0 10 3/uL 0.0-0.1 [facility] Basophils/100 WBC Auto (Bld) on 01-19-2024 Basophils/100 WBC (Bld) 0.2 % 0.2-2.0 [facility] Eosinophils/100 WBC Auto (Bl d)on 01-19-2024 Eosinophils/100 WBC (Bld) 4.3 % 0.9-7.0 [facility] Erythrocyte distribution wid th Auto (RBC) [Ratio]on 01-19-2024 Erythrocyte distribution width (RBC) [Ratio] 13.1 % 11.0-15.0 [facility] Estimated glomerular filtrat ion rate (GFR) non- Americanon 01-19-2024 GFR/1.73 sq M.predicted among non-blacks MDRD (S/P/Bld) [Vol rate/Area] mL/min/{1.73_m2} >=60 mL/min/1.73 m 2 [facility] Fibrin D-dimer [Presence] in Platelet poor plasma by Latex agglutinationon 01-19-2024 Fibrin D-dimer LA Ql (PPP) 0.43 mg/L FEU <=0.59 [facility] Comment on above: Increases in D-Dimer concentration observed withthromboembolic events can be variable due to localization,size, and age of the thrombus. Therefore, a thromboembolicevent cannot be diagnosed with certainty on the basis of thereference range. D-Dimers may also be elevated for a varietyof disorders including advanced age, , coronarydisease, cancer, liver disease, infection, inflammation,hematoma, DIC, trauma, post-surgery, diabetes, thrombolyticor anticoagulant therapy, stress, and generalizedhospitalization. Hematocrit Auto (Bld) [Volum e fraction]on 01-19-2024 Hematocrit (Bld) [Volume fraction] 39.5 % 36.0-48.0 [facility] Hemoglobin [Mass/volume] in Bloodon 01-19-2024 Hemoglobin (Bld) [Mass/Vol] 12.8 g/dL 12.0-16.0 [facility] Laboratory - Chemistry and C hemistry - challengeon 01-19-2024 Calcium [Mass/Vol] 9.0 mg/dL 8.5-10.1 [facility] Chloride [Moles/Vol] 105 mmol/L 98-107 [facility] CO2 [Moles/Vol] 28.7 mmol/L 21.0-32.0 [facility] Creatinine [Mass/Vol] 0.92 mg/dL 0.55-1.02 [facility] GFR/1.73 sq M.predicted MDRD (S/P/Bld) [Vol rate/Area] mL/min/{1.73_m2} >=60 mL/min/1.73 m 2 [facility] Glucose [Mass/Vol] 78 mg/dL 74-106 [facility] Potassium [Moles/Vol] 4.0 mmol/L 3.5-5.1 [facility] Sodium [Moles/Vol] 138 mmol/L 136-145 [facility] Urea nitrogen [Mass/Vol] 27.0 mg/dL High 7.0-18.0 [facility] Urea nitrogen/Creatinine [Mass ratio] 29.3 mg/mg [facility] Laboratory - Hematology and Cell countson 01-19-2024 Immature granulocytes/100 WBC (Bld) 0.3 % 0.0-0.5 [facility] - Microbiology an d Antimicrobial susceptibilityon 01-19-2024 SARS-CoV-2 (COVID-19) RNA JOSELUIS+probe Ql (Unsp spec) Negative NEGATIVE [facility] Comment on above: This test has not be en FDA cleared or approved, but has beenauthorized by the FDA under an Emergency Use Authorization(EUA) for use by authorized laboratories certified underIA that meet the requirements to perform moderate or highcomplexity testing. This test has been authorized only forthe detection of proteins from SARS-CoV-2, not for any otherviruses or pathogens. The emergency use of this test isauthorized for the duration of the declaration thatcircumstances exist justifying the authorization ofemergency use of in vitro diagnostic tests for detectionand/or diagnosis of Covid-19 under section 564(b)(1) of theAct, 21 U.S.C. 360bbb-3(b)(1), unless the declaration isterminated or authorization is revoked sooner. Leukocytes [#/volume] correc shant for nucleated erythrocytes in Blood by Automated counon 01-19-2024 WBC corrected for nucl RBC Auto (Bld) [#/Vol] 12.6 10 3/uL High 4.0-11.0 [facility] Lymphocytes Auto (Bld) [#/Vo l]on 01-19-2024 Lymphocytes (Bld) [#/Vol] 4.4 10 3/uL High 1.2-3.8 [facility] Lymphocytes/100 WBC Auto (Bl d)on 01-19-2024 Lymphocytes/100 WBC (Bld) 35.0 % 20.5-60.0 [facility] MCH Auto (RBC) [Entitic mass ]on 01-19-2024 MCH (RBC) [Entitic mass] 29.4 pg 26.7-34.0 [facility] MCHC Auto (RBC) [Mass/Vol]on 01-19-2024 MCHC (RBC) [Mass/Vol] 32.4 g/dL 29.9-35.2 [facility] MCV Auto (RBC) [Entitic vol] on 01-19-2024 MCV (RBC) [Entitic vol] 90.6 fL 81.0-99.0 [facility] Monocytes Auto (Bld) [#/Vol] on 01-19-2024 Monocytes (Bld) [#/Vol] 1.2 10 3/uL High 0.3-0.8 [facility] Monocytes/100 WBC Auto (Bld) on 01-19-2024 Monocytes/100 WBC (Bld) 9.5 % 1.7-12.0 [facility] Neutrophils Auto (Bld) [#/Vo l]on 01-19-2024 Neutrophils (Bld) [#/Vol] 6.4 10 3/uL 1.4-6.5 [facility] Neutrophils/100 WBC Auto (Bl d)on 01-19-2024 Neutrophils/100 WBC (Bld) 50.7 % 43.0-75.0 [facility] No Panel Informationon 01-18 Bedside Influenza Type A Antigen Negative [facility] Comment on above: Negative for Flu A p rotein antigen. Infection due to Flu Acannot be ruled out. Flu A antigen in the sample may bebelow the detection limit of the test. Bedside Influenza Type B Antigen Negative [facility] Comment on above: Negative for Flu B p rotein antigen. Infection due to Flu Bcannot be ruled out. Flu B antigen in the sample may bebelow the detection limit of the test. Eosinophils # (Auto) 0.5 10 3/uL 0.0-0.7 [facility] Immature Granulocyte # (Auto) 0.04 10 3/uL High 0.00-0.03 [facility] Troponin I High Sensitivity 5.8 pg/mL 4.0-51.3 [facility] Comment on above: CUT-OFF POINTS HAVE BEEN ESTABLISHED BASED ON THE FOURTHUNIVERSAL DEFINITION OF MYOCARDIAL INFARCTION. THE UPPERREFERENCE LIMIT (URL) OF TROPONIN, DEFINED THE 99THPERCENTILE OF cTnI DISTRIBUTION IN A REFERENCE POPULATION,HAS BEEN CONFIRMED THE DECISION THRESHOLD FOR MIDIAGNOSIS.99TH PERCENTILE = 51.4 PG/MLNOTE: HIGH-SENSITIVITY TROPONIN ASSAY IS NOT INTENDED TO BEUSED IN ISOLATION BUT SHOULD BE INTERPRETED IN CONJUNCTIONWITH OTHER DIAGNOSTIC AND CLINICAL INFORMATION. Platelet mean volume Auto (B ld) [Entitic vol]on 01-19-2024 Platelet mean volume (Bld) [Entitic vol] 9.3 fL Low 9.5-13.5 [facility] Platelets Auto (Bld) [#/Vol] on 01-19-2024 Platelets (Bld) [#/Vol] 304 10 3/uL 150-450 [facility] RBC Auto (Bld) [#/Vol]on RBC (Bld) [#/Vol] 4.36 10 6/uL 4.20-5.40 [facility] Serum or plasma anion gap de terminationon 01-19-2024 Anion gap [Moles/Vol] 8.3 mmol/L [facility] Borrelia burgdorferi IgG+IgM Ab [Presence] in Serum by Immunoassayon 10-13-2023 B. burgdorferi IgG+IgM IA Ql (S) Negative Negative [facility] Comment on above: Lyme antibodies not detected. Reflex testing is notindicated.No laboratory evidence of infection with B. burgdorferi(Lyme disease). Negative results may occur in patientsrecently infected (less than or equal to 14 days) with B.burgdorferi. If recent infection is suspected, repeattesting on a new sample collected in 7 to 14 days isrecommended.Performed at: [facility] [id number] Director: Jeovany Bazan PhD, Phone: [phone] General Surgery Office/Clini c Noteon 02-21-2022 General Surgery Office/Clinic Note Chief Complaint EGD and colonoscopy follow up HPI Staff 20 day post operative follow up post EGD with antral ulcer biopsy and colonoscopy with rectal polypectomy. Taking Protonix as prescribed. Taking Carafate 2-3 times per day. States abdominal pain has significantly improved. History of Present Illness s/p EGD and colonoscopy; 2 antral ulcers noted, bx negative for H pylori; no active bleeding; small hiatal hernia; colonoscopy with sigmoid diverticulosis and small hyperplastic rectal polyp; doing well, pain improved on medications. no blood in stools, no melena. Review of Systems ROS - Provider Constitutional: no fever, no sweats, no weight loss. Eyes: no glasses, no blurred vision, no visual loss. ENMT: no dentures, no hoarseness, no swallowing difficulties, no hearing loss, no ear infection(s), no nose bleeds. Cardiovascular: normal blood pressure, no chest pain, regular heartbeat, no heart murmur. Respiratory: no shortness of breath, no cough, no asthma, no wheezing. Gastrointestinal: no nausea, no vomiting, no diarrhea, no constipation, no blood in stool, no change in bowel habits, no abdominal pain, no hepatitis. Genitourinary: no kidney stones, no urine infection, no dysuria. Musculoskeletal: no pain, no weakness. Skin: no changing moles, no rash, no skin lumps. Neurologic: no seizures, no epilepsy, no headache. Psychiatric: no emotional or psychiatric problem. Heme/Lymph: no bleeding problems, no anemia, no blood clots, no transfusions. Allergy/Immunologic: no swollen lymph nodes/glands, no IV drug abuse. Other: Additional ROS info: Except as noted in the above Review of Systems and in the History of Present Illness, all other systems have been reviewed and are negative or noncontributory. Assessment/Plan 1. Antral ulcer (K25.9: Gastric ulcer, unspecified as acute or chronic, without hemorrhage or perforation) continue medications, no NSAIDs; f/u in 3months for repeat EGD to document healing; call sooner if problems/questions. 2. Sigmoid diverticulosis (K57.30: Diverticulosis of large intestine without perforation or abscess without bleeding) high fiber diet and daily fiber supplement; follow up screening colonoscopy in 10 years. Follow-up No qualifying data available Problem List/Past Medical History Ongoing Antral ulcer Asthma BMI 27.0-27.9,adult Chronic back pain Chronic GERD Chronic obstructive pulmonary disease Depression Early satiety Epigastric pain GERD (gastroesophageal reflux disease) Osteopenia Screening for malignant neoplasm of colon Sigmoid diverticulosis Tobacco user Very low density lipoprotinemia Historical No qualifying data Procedure/Surgical History Colonoscopy (01/12/2022), EGD - Esophagogastroduodenoscopy (01/12/2022), Bilateral oophorectomy, Bunionectomy, Colonoscopy, Decompression of thoracic spine, Discectomy of spine, EGD - Esophagogastroduodenoscopy, Repair of laceration of vagina, Tonsillectomy. Medications acetaminophen-hydrocodone 325 mg-5 mg oral tablet, 1 tab(s), Oral, TID Advair HFA 115 mcg-21 mcg Aerosol, 2 puff(s), Inhalation, BID amitriptyline 50 mg Tab, 50 mg= 1 tab(s), Oral, Once a day (at bedtime) Pantoprazole [address] Tab, 40 mg= 1 tab(s), Oral, Daily ProAir HFA 90 mcg/inh inhalation aerosol, 2 puff(s), Inhalation, q4hr, PRN sucralfate tab, 1 gm= 1 tab(s), Oral, QIDACHS tiZANidine 4 mg Tab, 4 mg= 1 tab(s), Oral, TID Allergies Biaxin (Unknown) Fosamax (Muscle pain) Levaquin (Rash) Percocet (Nausea) sulfa drugs (Unknown) Social History Alcohol - Denies Alcohol Use, 12/22/2021 Substance Abuse - Denies Substance Abuse, 12/22/2021 Tobacco 10 or more cigarettes (1/2 pack or more)/day in last 30 days Tobacco Use:. Never Smokeless Tobacco Use:. Cigarettes, 2 per day. Started age 16.0 Years. Yes, 12/22/2021 Family History Alzheimer's disease: Mother. COPD: Brother. Diabetes mellitus type 2: Mother. Heart disease: Sister. Hypertension: Mother and Brother. Primary malignant neoplasm of female breast: Sister. Primary malignant neoplasm of lung: Father. Normal [facility] Comment on above: Result Comment: Elec tronically Signed By: RAJINDER TAVERAS, Mihaela Trujillo\Date and Time Signed: 02/21/22 16:42 EST Ambulatory Visit Summaryon 1 Ambulatory Visit Summary MANLEY, CRISTINE K :1960 Visit Date:02/01/2022 Ambulatory Visit Instructions Your Care Team Attending Physician - RAJINDER TAVERAS, Mihaela Michelle Primary Care Physician - BLADIMIR TAVERAS, CELIA This Is Your Medications List Contact prescribing physician if questions or concerns acetaminophen-hydrocodone (acetaminophen-hydrocodone 325 mg-5 mg oral tablet) albuterol (ProAir HFA 90 mcg/inh inhalation aerosol) amitriptyline (amitriptyline 50 mg Tab) fluticasone-salmeterol (Advair HFA 115 mcg-21 mcg Aerosol) pantoprazole (Pantoprazole [address] Tab) sucralfate (sucralfate tab) tizanidine (tiZANidine 4 mg Tab) Procedures Performed Colonoscopy (01/12/2022), EGD - Esophagogastroduodenoscopy (01/12/2022), Bilateral oophorectomy, Bunionectomy, Colonoscopy, Decompression of thoracic spine, Discectomy of spine, EGD - Esophagogastroduodenoscopy, Repair of laceration of vagina, Tonsillectomy. Medications What How Much When Instructions Unchanged acetaminophen-hydrocodone (acetaminophen-hydrocodone 325 mg-5 mg oral tablet) 1 Tablets By Mouth 3 times a day Contact prescribing physician if questions or concerns Unchanged albuterol (ProAir HFA 90 mcg/ inh inhalation aerosol) 2 Puffs Inhalation Every 4 hours as needed for Shortness of breath or wheezing Contact prescribing physician if questions or concerns Unchanged amitriptyline (amitriptyline 50 mg Tab) 1 Tablets By Mouth Once a day (at bedtime) Contact prescribing physician if questions or concerns Unchanged fluticasone-salmeterol (Advair HFA 115 mcg-21 mcg Aerosol) 2 Puffs Inhalation 2 times a day Contact prescribing physician if questions or concerns Unchanged pantoprazole (Pantoprazole [address] Tab) 1 Tablets By Mouth Every day Contact prescribing physician if questions or concerns Unchanged sucralfate (sucralfate tab) 1 Tablets By Mouth Four times a day (before meals and at bedtime) Contact prescribing physician if questions or concerns Unchanged tizanidine (tiZANidine 4 mg Tab) 1 Tablets By Mouth 3 times a day Contact prescribing physician if questions or concerns Allergies Biaxin (Unknown) Fosamax (Muscle pain) Levaquin (Rash) Percocet (Nausea) sulfa drugs (Unknown) Problems Ongoing - Any problem that you are currently receiving treatment for. Asthma BMI 27.0-27.9,adult Chronic back pain Chronic GERD Chronic obstructive pulmonary disease Depression Early satiety Epigastric pain GERD (gastroesophageal reflux disease) Osteopenia Screening for malignant neoplasm of colon Tobacco user Very low density lipoprotinemia Normal [facility] Reminderson 02-01-2022 Reminders - From: Sushma Shell LPN To: N - Clinical; Sent: 02/01/2022 16:18:52 EDT Show up: 04/12/2022 07:00:00 EST Subject: EGD recall Due Date/Time: 05/04/2022 07:00:00 EST Reminder/Recall Patient is due to repeat EGD 05/04/2022 due to gastric ulcer. Normal [facility] Outside Colonoscopyon 2021 Outside Colonoscopy [id number]#[id number]:127 Normal [facility] Pathology Noteon 01-14-2022 Pathology Note [id number]:127 [facility] Reminderson 01-14-2022 Reminders - From: Sushma Shell LPN To: [facility] - Clinical; Sent: 01/14/2022 08:07:35 EDT Show up: 12/14/2031 07:00:00 EDT Subject: colonoscopy recall Due Date/Time: 01/13/2032 07:00:00 EDT Reminder/Recall Patient is due for screening colonoscopy 01/13/2032. Normal [facility] Pre-Certification Formon Pre-Certification Form [id number]#[id number]:127 [facility] Lab Reportson 01-11-2022 Lab Reports [id number]#[id number]:127 Normal [facility] Covid-19 PCR (CVDTB)on SARS-CoV-2 (COVID-19) RNA JOSELUIS+probe Ql (Unsp spec) Not detected Normal NOT DETECTED [facility] Comment on above: Result Comment: This test is not yet approved or cleared by the [place] FDA. When there are no FDA-approved or cleared tests available, and other criteria are met, FDA can make tests available under an emergency access mechanism called an Emergency Use Authorization (EUA). The EUA for this test is supported by the [place] of Health and Human Service's (HHS's) declaration that circumstances exist to justify the emergency use of in vitro diagnostics for the detection and/or diagnosis of the virus that causes COVID-19. This EUA will remain in effect (meaning this test can be used) for the duration of the COVID-19 declaration justifying emergency of IVDs, unless it is terminated or revoked by FDA (after which the test may no longer be used). When diagnostic testing is negative, the possibility of a false negative should be considered in the context of a patient's recent exposures and the presence of clinical signs and symptoms consistent with SARS-CoV-2. Performed By: #### [facility] #### [facility] Laboratory [address] [place] [address] Dr. Pablo Sheth Physician Orderon 12-23-2021 Physician Order [id number]:127 Normal [facility] Ambulatory Visit Summaryon 0 12-22-2021 Ambulatory Visit Summary TONY CRISTINE K :1960 Visit Date:12/22/2021 Ambulatory Visit Instructions Your Care Team Attending Physician - RAJINDER TAVERAS, Mihaela Michelle Primary Care Physician - CELIA GARRISON MD This Is Your Medications List Contact prescribing physician if questions or concerns acetaminophen-hydrocodone (acetaminophen-hydrocodone 325 mg-5 mg oral tablet) albuterol (ProAir HFA 90 mcg/inh inhalation aerosol) amitriptyline (amitriptyline 50 mg Tab) diclofenac (diclofenac potassium 50 mg oral tablet) fluticasone-salmeterol (Advair HFA 115 mcg-21 mcg Aerosol) omeprazole (Prilosec OTC) tizanidine (tiZANidine 4 mg Tab) Procedures Performed Bilateral oophorectomy, Bunionectomy, Colonoscopy, Decompression of thoracic spine, Discectomy of spine, EGD - Esophagogastroduodenoscopy, Repair of laceration of vagina, Tonsillectomy. Discharge Vitals Heart Rate (Peripheral) 72 Respiratory Rate 16 Blood Pressure 116/80 Height 170.0 cm Height 170 cm Weight 80.4 kg Weight 80.4 kg BMI 27.82 Medications What How Much When Instructions Unchanged acetaminophen-hydrocodone (acetaminophen-hydrocodone 325 mg-5 mg oral tablet) 1 Tablets By Mouth 3 times a day Contact prescribing physician if questions or concerns Unchanged albuterol (ProAir HFA 90 mcg/ inh inhalation aerosol) 2 Puffs Inhalation Every 4 hours as needed for Shortness of breath or wheezing Contact prescribing physician if questions or concerns Unchanged amitriptyline (amitriptyline 50 mg Tab) 1 Tablets By Mouth Once a day (at bedtime) Contact prescribing physician if questions or concerns Unchanged diclofenac (diclofenac potassium 50 mg oral tablet) 1 Tablets By Mouth 2 times a day Contact prescribing physician if questions or concerns Unchanged fluticasone-salmeterol (Advair HFA 115 mcg-21 mcg Aerosol) 2 Puffs Inhalation 2 times a day Contact prescribing physician if questions or concerns Unchanged omeprazole (Prilosec OTC) 20 Milligram By Mouth Every day Contact prescribing physician if questions or concerns Unchanged tizanidine (tiZANidine 4 mg Tab) 1 Tablets By Mouth 3 times a day Contact prescribing physician if questions or concerns Allergies Biaxin (Unknown) Fosamax (Muscle pain) Levaquin (Rash) Percocet (Nausea) sulfa drugs (Unknown) Problems Ongoing - Any problem that you are currently receiving treatment for. Asthma BMI 27.0-27.9,adult Chronic back pain Chronic obstructive pulmonary disease Depression Epigastric pain GERD (gastroesophageal reflux disease) Osteopenia Tobacco user Very low density lipoprotinemia Normal [facility] CBC AUTO DIFFon 12-17-2021 BASO # 0.1 103/ul Normal 0.0-0.1 [facility] Comment on above: Performed By: #### D ATCBC #### [facility] [address] [place] [address] Dr. Pablo Sheth Basophils/100 WBC (Bld) 0.4 % Normal 0.2-2.0 [facility] Comment on above: Performed By: #### D ATCBC #### [facility] [address] [place] [address] Dr. Pablo Sheth EO # 0.3 103/ul Normal 0.0-0.7 [facility] Comment on above: Performed By: #### D ATCBC #### [facility] [address] [place] [address] Dr. Pablo Sheth Eosinophils/100 WBC (Bld) 2.4 % Normal 0.9-7.0 [facility] Comment on above: Performed By: #### D ATCBC #### [facility] [address] [place] [address] Dr. Pablo Sheth Erythrocyte distribution width (RBC) [Ratio] 13.2 % Normal 11.0-15.0 [facility] Comment on above: Performed By: #### D ATCBC #### [facility] [address] [place] [address] Dr. Pablo Sheth Hematocrit (Bld) [Volume fraction] 42.6 % Normal 36.0-48.0 [facility] Comment on above: Performed By: #### D ATCBC #### [facility] [address] [place] [address] Dr. Pablo Sheth Hemoglobin (Bld) [Mass/Vol] 13.7 g/dL Normal 12.0-16.0 [facility] Comment on above: Performed By: #### D ATCBC #### [facility] [address] [place] [address] Dr. Pablo Sheth IG # 0.05 10e3/ul Critically high 0.00-0.03 [facility] Comment on above: Performed By: #### D ATCBC #### [facility] [address] [place] [address] Dr. Pablo Sheth IG % 0.4 % Normal 0.0-0.5 [facility] Comment on above: Performed By: #### D ATCBC #### [facility] [address] [place] [address] Dr. Pablo Sheth LYMPH # 2.8 103/ul Normal 1.2-3.8 [facility] Comment on above: Performed By: #### D ATCBC #### [facility] [address] [place] [address] Dr. Pablo Sheth Lymphocytes/100 WBC (Bld) 20.9 % Normal 20.5-60.0 [facility] Comment on above: Performed By: #### D ATCBC #### [facility] [address] [place] [address] Dr. Pablo Sheth MCH (RBC) [Entitic mass] 29.2 pg Normal 26.7-34.0 [facility] Comment on above: Performed By: #### D ATCBC #### [facility] [address] [place] [address] Dr. Pablo Sheth MCHC (RBC) [Mass/Vol] 32.2 g/dL Normal 29.9-35.2 [facility] Comment on above: Performed By: #### D ATCBC #### [facility] [address] [place] [address] Dr. Pablo Sheth MCV (RBC) [Entitic vol] 90.8 fL Normal 81.0-99.0 [facility] Comment on above: Performed By: #### D ATCBC #### [facility] [address] [place] [address] Dr. Pablo Sheth MONO # 1.0 103/ul Critically high 0.3-0.8 [facility] Comment on above: Performed By: #### D ATCBC #### [facility] [address] [place] [address] Dr. Pablo Sheth Monocytes/100 WBC (Bld) 7.5 % Normal 1.7-12.0 [facility] Comment on above: Performed By: #### D ATCBC #### [facility] [address] [place] [address] Dr. Pablo Sheth NEUT # 9.2 103/ul Critically high 1.4-6.5 [facility] Comment on above: Performed By: #### D ATCBC #### [facility] [address] [place] [address] Dr. Pablo Sheth Neutrophils/100 WBC (Bld) 68.4 % Normal 43.0-75.0 [facility] Comment on above: Performed By: #### D ATCBC #### [facility] [address] [place] [address] Dr. Pablo Sheth Platelet mean volume (Bld) [Entitic vol] 9.3 fL Critically low 9.5-13.5 [facility] Comment on above: Performed By: #### D ATCBC #### [facility] [address] [place] [address] Dr. Pablo Sheth PLT 313 103/ul Normal 150-450 [facility] Comment on above: Performed By: #### D ATCBC #### [facility] [address] [place] [address] Dr. Pablo Sheth RBC 4.69 106/ul Normal 4.20-5.40 [facility] Comment on above: Performed By: #### D ATCBC #### [facility] [address] [place] [address] Dr. Pablo Sheth WBC 13.4 103/ul Critically high 4.0-11.0 [facility] Comment on above: Performed By: #### D ATCBC #### [facility] [address] [place] [address] Dr. Pablo Sheth BERKLEY - TSHon 12-17-2021 TSH 1.241 uIU/mL Normal 0.358-3.740 [facility] Comment on above: Performed By: #### D ATTSH, DATBMP #### [facility] [address] [place] [address] Dr. Pablo Sheth TSH RANGE SEE BELOW Normal [facility] Comment on above: Result Comment: <0.3 4 UIU/ml HYPERTHYROID 0.34-5.60 UIU/ml EUTHYROID >5.60 UIU/ml HYPOTHYROID Performed By: #### D ATTSH, DATBMP #### [facility] [address] [place] [address] Dr. Pablo Sheth BERKLEY- BMP WITH LIPIDon 2021 Anion gap [Moles/Vol] 11.9 mmol/L Normal [facility] Comment on above: Performed By: #### D ATTTONYA, DATBMP #### [facility] [address] [place] [address] Dr. Pablo Sheth Calcium [Mass/Vol] 9.1 mg/dL Normal 8.5-10.1 [facility] Comment on above: Performed By: #### D ATTTONYA, DATBMP #### [facility] [address] [address] [address] Pablo Sheth Chloride [Moles/Vol] 104 mmol/L Normal 98-107 [facility] Comment on above: Performed By: #### D ATTTONYA, DATBMP #### [facility] [address] [place] [address] Dr. Pablo Sheth Cholesterol [Mass/Vol] 207 mg/dL Critically high <=200 [facility] Comment on above: Performed By: #### D JOSE J, DATBMP #### [facility] [address] [address] [address] Pablo Sheth Cholesterol in HDL [Mass/Vol] 52 mg/dL Normal 40-60 [facility] Comment on above: Performed By: #### D JOSE J, DATBMP #### [facility] [address] [place] [address] Dr. Pablo Sheth Cholesterol in LDL [Mass/Vol] 141.4 mg/dL Normal [facility] Comment on above: Performed By: #### D ATTTONYA, DATBMP #### [facility] [address] [address] [address] Pablo Sheth CO2 [Moles/Vol] 29.3 mmol/L Normal 21.0-32.0 [facility] Comment on above: Performed By: #### D ATTSH, DATBMP #### [facility] [address] [place] [address] Dr. Pablo Sheth Creatinine [Mass/Vol] 0.77 mg/dL Normal 0.55-1.02 [facility] Comment on above: Performed By: #### D ATTSH, DATBMP #### [facility] [address] [address] [address] Pablo Sheth EGFR-AF MEXICAN >60 Normal >=60 [facility] Comment on above: Performed By: #### D ATTSH, DATBMP #### [facility] [address] [address] [address] Pablo Sheth EGFR-NON AF MEXICAN >60 Normal >=60 [facility] Comment on above: Performed By: #### D ATTSH, DATBMP #### [facility] [address] [address] [address] Pablo Sheth Glucose [Mass/Vol] 109 mg/dL Critically high 74-106 T [facility] Comment on above: Performed By: #### D ATTSH, DATBMP #### [facility] [address] [place] [address] Dr. Pablo Sheth HDL NORMAL > or = 60 mg/dl - LO W CARDIOVASCULAR RISK <40 mg/dl - HIGH CARDIOVASCULAR RISK Normal [facility] Comment on above: Performed By: #### D ATTSH, DATBMP #### [facility] [address] [place] [address] Dr. Pablo Sheth LDL CALC NORMAL SEE BELOW Normal [facility] Comment on above: Result Comment: <100 mg/dl OPTIMAL 100 - 129 mg/dl NEAR OR ABOVE OPTIMAL 130 - 159 mg/dl BORDERLINE HIGH 160 - 189 mg/dl HIGH >190 mg/dl VERY HIGH Performed By: #### D ATTSH, DATBMP #### [facility] [address] [address] [address] Pablo Sheth Potassium [Moles/Vol] 4.2 mmol/L Normal 3.5-5.1 [facility] Comment on above: Performed By: #### D ATTSH, DATBMP #### [facility] [address] [address] [address] Pablo Sheth Sodium [Moles/Vol] 141 mmol/L Normal 136-145 [facility] Comment on above: Performed By: #### D ATTSH, DATBMP #### [facility] [address] [address] [address] Pablo Sheth Triglyceride [Mass/Vol] 68 mg/dL Normal <=150 [facility] Comment on above: Performed By: #### D ATTSH, DATBMP #### [facility] [address] [address] [address] Pablo Sheth Urea nitrogen [Mass/Vol] 26.0 mg/dL Critically high 7.0-18.0 [facility] Comment on above: Performed By: #### D ATTSH, DATBMP #### [facility] [address] [address] [address] Pablo Sheth Urea nitrogen/Creatinine [Mass ratio] 33.8 mg/mg Normal [facility] Comment on above: Performed By: #### D ATTSH, DATBMP #### [facility] [address] [address] [address] Pablo Sheth VLDL CALC 13.6 mg/dL Normal [facility] Comment on above: Performed By: #### D ATTSH, DATBMP #### [facility] [address] [address] [address] Pablo Sheth Physician Referralon 022 Physician Referral [id number]:127 Normal [facility] Vital Signs Date Time Vital Sign Value Performing Clinician Faci lity 01-24-2024 14:35-0400 Body height 170.18 cm MD Celia Garrison Work Phone: [facility] 01-24-2024 14:35-0400 Body mass index (BMI) [Ratio] 28.3 kg/m2 MD Celia Garrison Work Phone: [facility] 01-24-2024 14:35040 Body weight 82.21 kg MD Celia Garrison Work Phone: [facility] 01-09-2024 15:17-0400 Body height 167.64 cm [facility] 01-09-2024 15:17-0400 Body mass index (BMI) [Ratio] 28.2 kg/m2 [facility] 01-09-2024 15:17-0400 Body weight 79.37 kg [facility] 01-09-2024 15:17-0400 Diastolic blood pressure 91 mm[Hg] [facility] 01-09-2024 15:17-0400 Heart rate 76 /min [facility] 01-09-2024 15:17-0400 SaO2% (BldA) [Mass fraction] 97 % [facility] 01-09-2024 15:17-0400 Systolic blood pressure 135 mm[Hg] [facility] 11-01-2023 08:57-0400 Body height 167.64 cm [facility] 11-01-2023 08:57-0400 Body mass index (BMI) [Ratio] 28.2 kg/m2 [facility] 11-01-2023 08:57-0400 Body weight 79.37 kg [facility] 11-01-2023 08:57-0400 Diastolic blood pressure 90 mm[Hg] [facility] 11-01-2023 08:57-0400 Heart rate 63 /min [facility] 11-01-2023 08:57-0400 Systolic blood pressure 136 mm[Hg] [facility] 10-13-2023 09:19-0400 Body height 167.64 cm [facility] 10-13-2023 09:19-0400 Body mass index (BMI) [Ratio] 28 kg/m2 [facility] 10-13-2023 09:19-0400 Body weight 78.92 kg [facility] [facility] 10-13-2023 09:19-0400 Diastolic blood pressure 76 mm[Hg] [facility] 10-13-2023 09:19-0400 Heart rate 78 /min [facility] 10-13-2023 09:19-0400 SaO2% (BldA) [Mass fraction] 98 % [facility] 10-13-2023 09:19-0400 Systolic blood pressure 118 mm[Hg] [facility] 07-31-2023 10:09-0400 Body height 167.64 cm [facility] 07-31-2023 10:09-0400 Body mass index (BMI) [Ratio] 28.8 kg/m2 [facility] 07-31-2023 10:09-0400 Body weight 80.9 kg [facility] 07-31-2023 10:09-0400 Diastolic blood pressure 89 mm[Hg] [facility] 07-31-2023 10:09-0400 Heart rate 74 /min [facility] 07-31-2023 10:09-0400 Systolic blood pressure 138 mm[Hg] [facility] 12-22-2021 14:20-0400 Blood Pressure Location Mihaela KERNL [facility] [place] 12-22-2021 14:20-0400 Diastolic blood pressure 80 mm[Hg] Mihaela KERNL [facility] [place] 12-22-2021 14:20-0400 Heart rate 72 /min Mihaela NILL [facility] [place] 12-22-2021 14:20-0400 Respiratory rate 16 /min Mihaela NILL [facility] [place] 12-22-2021 14:20-0400 Systolic blood pressure 116 mm[Hg] Mihaela KERNL [facility] [place] Encounters Encounter Date Encounter Type Care Provider Facility Start: 01-24-2024 End: 01-24-2024 ambulatory MD Celia Garrison Work Phone: [facility] Work Phone: Start: 01-24-2024 End: 01-24-2024 Patient encounter procedure MD Celia Garrison Work Phone: [facility] Work Phone: Start: 01-24-2024 End: 01-24-2024 Patient encounter procedure MD Celia Garrison Work Phone: [facility] Start: 01-24-2024 End: 01-24-2024 ambulatory MD Celia Garrison Work Phone: [facility] Work Phone: Start: 01-19-2024 Non-patient / Non-visit MD Mala Garrison Work Phone: [facility] Work Phone: Start: 01-09-2024 End: 01-09-2024 ambulatory [facility] Work Phone: Start: 01-09-2024 End: 01-09-2024 Patient encounter procedure [facility] Work Phone: Start: 11-01-2023 End: 11-01-2023 ambulatory [facility] Work Phone: Start: 11-01-2023 End: 11-01-2023 Patient encounter procedure [facility] Work Phone: Start: 10-13-2023 End: 10-13-2023 ambulatory [facility] Work Phone: Start: 10-13-2023 End: 10-13-2023 Patient encounter procedure [facility] Work Phone: Start: 07-31-2023 End: 07-31-2023 ambulatory [facility] Work Phone: Start: 07-31-2023 End: 07-31-2023 Patient encounter procedure [facility] Work Phone: Start: 05-26-2023 Non-patient / Non-visit [facility] Work Phone: Start: 02-01-2022 End: 02-02-2022 ambulatory Mihaela CASAS Facility:[facility] Start: 02-01-2022 End: 02-01-2022 Patient encounter procedure Mihaela CASAS [facility] Start: 01-13-2022 Encounter for preprocedural laboratory examination DR MIHAELA CASAS [facility] Start: 01-12-2022 End: 01-13-2022 ambulatory Mihaela CASAS Facility:CD:[id number] Start: 01-10-2022 End: 01-11-[address] MIHAELA CASAS Facility:[facility] Start: 01-10-2022 End: 01-11-2022 Encounter for preprocedural laboratory examination DR MIHAELA CASAS Facility: Start: 12-22-2021 End: 12-23-2021 ambulatory Mihaela CASAS Facility:[facility] Start: 12-22-2021 End: 12-22-2021 Patient encounter procedure Mihaela CASAS [facility] [place] Start: 12-17-2021 End: 12-18-2021 ambulatory CELIA GARRISON PROVIDER Facility:[facility] Procedures Date Procedure Procedure Detail Performing Clinician Start: 01-24-2024 X-ray of both knees, three views MD Anoop Garrison Work Phone: Start: 01-12-2022 Colonoscopy Mihaela NILL Start: 01-12-2022 Esophagogastroduodenoscopy Mihaela NILL Bilateral oophorectomy Ebenezer el NILL Colonoscopy Mihaela NILL Decompression of thoracic spine Mihaela NILL Discectomy of spine Mihaela NILL Comment on above: T12-L1 T12-L1 Esophagogastroduodenoscopy M ichael NILL Excision of bunion Mihaela N ILL Repair of vaginal tear Ebenezer chaney NILL Tonsillectomy Mihaela NILL Plan of Treatment Date Care Activity Detail Author Start: 01-24-2024 X-ray of both knees, three views XR knee BI 3V - NOT FOR ER USE [facility] Start: 10-16-2024 XR Knee - bilateral 3 Views [facility] Start: 01-10-2024 Patient referral [facility] Work Phone: Patient Education Low back pain in adults [facility] Work Phone: Patient referral [facility] Work Phone: [facility] Immunizations Immunization Date Immunization Notes Care Provider Fa cility 03-29-2021 COVID-19 mRNA, Comir martinez (Pfizer) [facility] 08-11-2020 COVID-19 mRNA, Comir martinez (Pfizer) [facility] 07-21-2020 COVID-19 mRNA, Comir martinez (Pfizer) [facility] 10-07-2018 diphtheria, tetanus toxoids and acellular pertussis vaccine, unspecified formulation [facility] 02-05-2014 tetanus and diphther ia toxoids, adsorbed, preservative free, for adult use (5 Lf of tetanus toxoid and 2 Lf of diphtheria toxoid) [facility] Payers Date Payer Category Payer Unknown [id number] 1960 Self-pay [id number] 1960 Unknown [id number] 1960 Unknown [id number] 1960 Unknown [id number] 1960 Unknown [id number] 1960 Unknown [id number] 1960 Unknown [id number] Medicare Medicare [id number] Private Health Insurance [employer] [facility] PFFS G [id number] Unknown [id number] Unknown [id number] Unknown MMO [employer] [id number] Unknown Regular Insurance [id number] Social History Date Type Detail Facility Start: 12-22-2021 Heavy tobacco smoker (finding) [facility] [place] Never [facility] [place] Female [facility] [place] Start: 07-31-2023 End: 10-13-2023 Tobacco smoking status NHIS Smoker (finding) [facility] Start: 1960 Sex Assigned At Female F [facility] Functional Status Date Assessment Result Facility 12-22-2021 N/A [facility] [place] Clinical Note 01-12-2022 Note Date & Type Note Facility 01-12-2022 Note OPERATIVE NOTE OPERATION DATE: 01/12/2022 PREOPERATIVE DIAGNOSIS: Epigastric abdominal pain, as well as need for colorectal screening. POSTOPERATIVE DIAGNOSIS: Antral ulcers x2 with no active bleeding, small hiatal hernia, redundant colon with sigmoid diverticulosis, as well as 2 mm rectal polyp. PROCEDURE: EGD with antral biopsy x2 of antral ulcers, colonoscopy to cecum with cold forceps polypectomy x1 for rectal polyp. SURGEON: Mihaela Casas M.D. ANESTHESIA: Monitored anesthesia care. ESTIMATED BLOOD LOSS: Less than 1 mL. INDICATIONS AND CONSENT: Patient is a 61-year-old female with history of epigastric abdominal pain, as well as need for colorectal screening. Indications, risks, benefits, alternatives of proceeding with EGD and colonoscopy were explained extensively to the patient, including the risks of bleeding, aspiration, esophageal/gastric/duodenal or colonic perforation or anesthetic complications. All of her questions were answered. Informed consent was obtained. PROCEDURE: Patient brought to the operating room, placed in the left lateral decubitus position. Monitored anesthesia care was provided. A bite block was placed in the patient's mouth. Scope was inserted into the oropharynx. Under direct visualization, it was advanced into the esophagus, past the cricopharyngeus, down to the stomach. The stomach was insufflated with air. The pylorus was traversed down to the descending portion of the duodenum. There was no evidence of duodenitis or ulceration. No scarring within the pyloric channel. Scope was pulled back into the stomach. Right adjacent to the pylorus, there was noted to be two ulcerations with craters probably 5 mm craters with some spasm. No evidence of visible vessel. Some surrounding erythema. The scope was retroflexed. There was noted to be a small sliding type hiatal hernia. Biopsies around the two ulcers were obtained with good hemostasis. The GE junction was noted at 36 cm. There was no distal esophagitis or Hatfield's changes. Remainder of the esophagus was unremarkable. The scope was then withdrawn. The patient was then positioned for colonoscopy. Rectal exam was performed which showed no masses or blood. Scope was inserted into the anal canal. Under direct visualization was advanced. With the aid of abdominal compression, it was advanced to the cecum where cecal markings were clearly identified. There was noted to be a good prep. Upon withdrawal of the scope, mucosal surfaces were carefully examined. There were no mass lesions or inflammatory changes. There was moderate sigmoid diverticulosis. There was redundancy and spasm of the colon. Within the rectum, there was noted to be a 2 mm sessile polyp that was removed with cold biopsy forceps with good hemostasis. Scope was retroflexed in the anal canal. There was no significant hemorrhoidal disease. Scope was then withdrawn. Patient tolerated procedure well, was sent to recovery room in good condition. Follow up colonoscopy should be likely in five years; will depend on the pathology of the polyp. CC: Celia Garrison M.D. [facility] Clinical Note 12-22-2021 Note Date & Type Note Facility 12-22-2021 Note Chief Complaint consultation for epigastric pain HPI Staff 61 year old female presents on consultation from Dr. Garrison for epigastric pain. Reports she has been experiencing crampy pain after eating for the past year. No known food triggers. Denies nausea, vomiting, heartburn, bloating or change in bowels. Intermittent indigestion. She was prescribed Carafate which was helpful but did not refill prescription when she ran out. Has been on OTC Prilosec x 10 years. No imaging completed. Reports last colonoscopy and EGD completed greater than 10 years ago. She does not recall any abnormalities. History of Present Illness 61 yo female with h/o asthma/COPD, GERD, chronic back pain requiring narcotics, GERD, depression, referred for epigastric abdominal pain, began 1 year ago, more frequent now, described as burning/ache that occurs immediately after eating any food, no food triggers; can last for several hours, or the entire day, no relieving factors; some GERD symptoms when lying down, no dysphagia, no N/V; no wt loss, some early satiety; on Prilosec OTC for several years; no change in bms or blood in stools, no melena; last EGD/colonoscopy 2004; abdominal operations significant for bilateral oophorectomies; on diclofenac daily, no asa, no SBE prophylaxis; no fmhx of GI malignancy or IBD; smokes 2 ppd. Review of Systems PHQ Score Initial Depression Screen Score: 0 ROS - Provider Constitutional: no fever, no sweats, no weight loss. Eyes: no glasses, no blurred vision, no visual loss. ENMT: no dentures, no hoarseness, no swallowing difficulties, no hearing loss, no ear infection(s), no nose bleeds. Cardiovascular: normal blood pressure, no chest pain, regular heartbeat, no heart murmur. Respiratory: no shortness of breath, yes cough, no asthma, yes wheezing. Gastrointestinal: no nausea, no vomiting, no diarrhea, no constipation, no blood in stool, no change in bowel habits, mild abdominal pain, no hepatitis. Genitourinary: no kidney stones, no urine infection, no dysuria. Musculoskeletal: no pain, no weakness. Skin: no changing moles, no rash, no skin lumps. Neurologic: no seizures, no epilepsy, no headache. Psychiatric: no emotional or psychiatric problem. Heme/Lymph: no bleeding problems, no anemia, no blood clots, no transfusions. Allergy/Immunologic: no swollen lymph nodes/glands, no IV drug abuse. Other: Additional ROS info: Except as noted in the above Review of Systems and in the History of Present Illness, all other systems have been reviewed and are negative or noncontributory. Physical Exam Vitals & Measurements HR: 72(Peripheral) RR: 16 BP: 116/80 HT: 170.0 cm HT: 170 cm WT: 80.4 kg WT: 80.4 kg BMI: 27.82 ROS - Provider Constitutional: no fever, no sweats, no weight loss. Eyes: no glasses, no blurred vision, no visual loss. ENMT: no dentures, no hoarseness, no swallowing difficulties, no hearing loss, no ear infection(s), no nose bleeds. Cardiovascular: normal blood pressure, no chest pain, regular heartbeat, no heart murmur. Respiratory: no shortness of breath, no cough, no asthma, no wheezing. Gastrointestinal: no nausea, no vomiting, no diarrhea, no constipation, no blood in stool, no change in bowel habits, no abdominal pain, no hepatitis. Genitourinary: no kidney stones, no urine infection, no dysuria. Musculoskeletal: no pain, no weakness. Skin: no changing moles, no rash, no skin lumps. Neurologic: no seizures, no epilepsy, no headache. Psychiatric: no emotional or psychiatric problem. Heme/Lymph: no bleeding problems, no anemia, no blood clots, no transfusions. Allergy/Immunologic: no swollen lymph nodes/glands, no IV drug abuse. Other: Additional ROS info: Except as noted in the above Review of Systems and in the History of Present Illness, all other systems have been reviewed and are negative or noncontributory. Assessment/Plan 1. Epigastric pain (R10.13: Epigastric pain) plan EGD and colonoscopy under anesthesia, informed consent obtained. 2. Chronic GERD (K21.9: Gastro-esophageal reflux disease without esophagitis) see # 1 3. Early satiety (R68.81: Early satiety) see # 1 4. Screening for malignant neoplasm of colon (Z12.11: Encounter for screening for malignant neoplasm of colon) see # 1 5. Tobacco user (Z72.0: Tobacco use) We strongly recommend to quit tobacco use. Cigarette smoking harms nearly every organ of the body, causes many diseases, and reduces the health of smokers in general. Quitting smoking lowers your risk for smoking-related diseases and can add years to your life. We encourage you to visit www.smokefree.gov access to helpful resources including free telephone support. If you decide on prescription treatment to help you quit, your family doctor would be happy to provide these. Follow-up No qualifying data available Problem List/Past Medical History Ongoing Asthma BMI 27.0-27.9,adult Chronic back pain Chronic GERD Chronic obstructive pulmonary dise (more content not included)... [facility] Comment on above: Result Comment: Elec tronically Signed By: RAJINDER TAVERAS, Mihaela Trujillo\Date and Time Signed: 12/22/21 17:34 EDT Evaluation + Plan note Note Date & Type Note Facility Evaluation + Plan note No data available for this section [facility] [place] Evaluation note Note Date & Type Note Facility Evaluation note Diagnosis Onset Date Lumbar radiculopathy, chronic acute [facility] Work Phone: Evaluation note Note Date & Type Note Facility Evaluation note Diagnosis Onset Date Lumbar radiculopathy, chronic acute Headache acute Joint pain acute Tick bite acute [facility] Work Phone: Evaluation note Note Date & Type Note Facility Evaluation note Diagnosis Onset Date Headache acute Joint pain acute Tick bite acute Chronic obstructive pulmonar y disease, unspecified acute Lumbar radiculopathy, chronic acute [facility] Work Phone: Evaluation note Note Date & Type Note Facility Evaluation note Diagnosis Onset Date Chronic obstructive pulmonar y disease, unspecified acute Lumbar radiculopathy, chronic acute Bilateral knee pain acute COPD exacerbation acute Lumbar pain acute Lumbar radiculopathy, chronic acute Bilateral knee pain acute Primary osteoarthritis of both knees acute [facility] Work Phone: Hospital Discharge instructions Note Date & Type Note Facility Hospital Discharge instructions No data available for this section [facility] [place] Progress note Note Date & Type Note Facility Progress note No data available for this section [facility] [place] Summary Purpose Family History No Family History Records Found Relationship Condition Age at Onset Recorded Date/T tyron Not Specified Diabetes mellitus Unknown Hypertension Unknown father Malignant neoplasm Unknown Relationship Condition Age at Onset Recorded Date/T tyron mother Diabetes mellitus Unknown Hypertension Unknown father Malignant neoplasm Unknown Advance Directives No Advanced Directives Records Found Advance Directive Response Recorded Date/ Time Advance Directives No July 30 024 9:55am Chief Complaint and Reason for Visit Chief Complaint Amb Documentation Medication Check Reason for Visit Lumbar radiculopathy , chronic Chief Complaint Medication Check tick bite Reason for Visit Lumbar radiculopathy , chronic Headache Joint pain Tick bite Chief Complaint tick bite 3 month follow up Reason for Visit Headache Joint pain Tick bite Chronic obstructive pulmonary disease, unspecified Lumbar radiculopathy, chronic Chief Complaint tick bite 3 month follow up Back Issues/Knee Pain Reason for Visit Headache Joint pain Tick bite Chronic obstructive pulmonary disease, unspecified Lumbar radiculopathy, chronic Chief Complaint 3 month follow up Back Issues/Knee Pain M25.561 - Pain in right knee CONSULT DR. GARRISON BILDESEAN KNEE PAIN, NX Reason for Visit Chronic obstructive pulmonary disease, unspecified Lumbar radiculopathy, chronic Bilateral knee pain COPD exacerbation Lumbar pain Lumbar radiculopathy, chronic Bilateral knee pain Primary osteoarthritis of both knees Additional Source Comments Care Team (unrecognized sect ion and content) Team Status: Active Member Role Status Dates Celia Garrison MD Primary Care Provider Active Team Status: Inactive Member Role Status Dates Celia Garrison MD Primary Care Provide r, Attending Provider Active Start: July 31, 2023 End: July 31, 2023 Team Status: Inactive Member Role Status Dates Celia Garrison MD Primary Care Provider Active Start: October 13, 2023 End: October 13, 2023 Brittanie Siu APRN [employer] Attending Provider Act onesimo Start: October 13, 2023 End: October 13, 2023 Team Status: Active Member Role Status Dates Celia Garrison MD Primary Care Provider Active Start: May 26, 2023 EULA Luis Attending Provider Active Start : May 26, 2023 Team Status: Inactive Member Role Status Dates Celia Garrison MD Primary Care Provide r, Attending Provider Active Start: November 01, 2023 End: November 01, 2023 Team Status: Inactive Member Role Status Dates Celia Garrison MD Primary Care Provide r, Attending Provider Active Start: January 09, 2024 End: January 09, 2024 Team Status: Active Member Role Status Dates Celia Garrison MD Primary Care Provider Active Start: January 19, 2024 Delvin Campbell DO Attending Provider Active S tart: January 19, 2024 Team Status: Active Member Role Status Dates Celia Garrison MD Primary Care Provider Active Start: January 24, 2024 Alexandro Galvez DO Attending Provider Active S tart: January 24, 2024 Team Status: Inactive Member Role Status Dates Celia Garrison MD Primary Care Provider Active Start: January 24, 2024 End: January 24, 2024 Alexandro Galvez DO Attending Provider Active S tart: January 24, 2024 End: January 24, 2024 INFORMATION SOURCE (unrecogn ized section and content) DATE CREATED AUTHOR 02/21/2022 [facility] DATE CREATED AUTHOR AUTHOR'S ORGANIZ ATION 04/01/2022 [facility] DATE CREATED AUTHOR AUTHOR'S ORGANIZ ATION 01/27/2024 [facility] Goals (unrecognized section and content) Goals may be documented in a n alternate section FOR RECORDS PERTAINING TO PATIENTS WHO ARE OR HAVE BEEN ENROLLED IN A CHEMICAL DEPENDENCY/SUBSTANCEABUSE PROGRAM, SOME INFORMATION MAY BE OMITTED. This clinical summary was aggregated from multiple sources. Caution should be exercised in using it in the provision of clinical care. This summary normalizes information from multiple sources, and as a consequence, information in this document may materially change the coding, format and clinical context of patient data. In addition, data may be omitted in some cases. CLINICAL DECISIONS SHOULD BE BASED ON THE PRIMARY CLINICAL RECORDS. [employer] provides no warranty or guarantee of the accuracy or completeness of information in this document.
[2024-02-01 01:31] VITALS: BP 144/100; PULSE 78; O2SAT 98
== END 2024-02-01 01:31 | disposition home or self-care (01) ==
PROVIDERS: Emergency Provider Emergency Medicine; PCP Family Medicine
DX: S22.31XA Fracture of one rib, right side, initial encounter for closed fracture (principal); W01.10XA Fall on same level from slipping, tripping and stumbling with subsequent striking against unspecified object, initial encounter
CPT/HCPCS: 71101; 93005; 94667; 96372; 99284; J1885

== ENCOUNTER 2024-03-21 08:06 | Outpatient (OUT) | payer MEDICARE, OTHER, SELFPAY ==
--- NOTE | 2024-03-21 08:10 | XR_ITS ---
The [address] [address] Patient Name: KARLENE JIMENEZ MRN: [id number] date: 1960 Sex: F Assigned Patient Location: [facility] Current Patient Location: Accession/Order Number: [id number] Exam Date: 03/21/2024 08:42 Report Date: 03/22/2024 07:16 At the request of: CORNELIUS GARRISON Procedure: XR DEXA axial skeleton EXAMINATION: XR DEXA axial skeleton, 03/21/2024 8:42 AM EST HISTORY: Menopause Present COMPARISON: 2009. TECHNIQUE: Dual-energy X-ray absorptiometry (DEXA) bone density study performed for the axial skeleton. FINDINGS: Bone mineral density AP spine L1-L4 measures 0.917 g/sq cm. T score -2.2. Lowest bone mineral density right femoral trochanter measures 0.569 g/sq cm. T score -2.5. Osteoporosis XR/XR DEXA axial skeleton IMPRESSION: Osteoporosis 10 year fracture risk not provided as T score at or below -2.5 Pharmacologic treatment recommendations * No uniform recommendation applies to all patients. Management plans must be individualized. * Consider initiating pharmacologic treatment in postmenopausal women and men >= 50 years of age who have the following: Primary fracture prevention: * T-score <= - 2.5 at the femoral neck, total hip, lumbar spine, 33% radius (some uncertainty with existing data) by DXA. * Low bone mass (osteopenia: T-score between - 1.0 and - 2.5) at the femoral neck or total hip by DXA with a 10-year hip fracture risk >= 3% or a 10-year major osteoporosis-related fracture risk >= 20% (i.e., clinical vertebral, hip, forearm, or proximal humerus) based on the [place]-adapted FRAXregistered model. Secondary fracture prevention: * Fracture of the hip or vertebra regardless of BMD [4, 5]. * Fracture of proximal humerus, pelvis, or distal forearm in persons with low bone mass (osteopenia: T-score between - 1.0 and - 2.5). The decision to treat should be individualized in persons with a fracture of the proximal humerus, pelvis, or distal forearm who do not have osteopenia or low BMD [12, 13]. Reji MS, Summer SL, Jose KL, Radha EM, Torey KG, Pavon AJ, Rupal ES. The clinician's guide to prevention and treatment of osteoporosis. Osteoporos Int. 2021;33(10):5815-7459. doi: 10.1007/c25213-765-85418-t. Epub 2021Aug 05. Erratum in: Osteoporos Int. 2021Nov 04;: PMID: [id number]; PMCID: [id number]. Electronically authenticated by: KELLY MAXWELL Date: 03/22/2024 07:16
--- OUTSIDE RECORDS SUMMARY | 2024-03-21 08:27 | XMS_ITS | CCD ---
Author Organization 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 Name Role Phone CELIA GARRISON Primary Care Physician BLADIMIR PROVIDERCELIA Referring Unavailab le NILL, Mihaela Michelle Attending Unavailable NILL, Mihaela Michelle Attending Unavailable NILL, Mihaela Michelle Attending Unavailable NILL, Mihaela Michelle Attending Unavailable MISC, DR MIDDLETON Primary Care Unavailable REQUEST, DR REYES LISTED Attending Unavaila ble REQUEST, DR REYES LISTED Consulting Unavaila ble REQUEST, DR REYES LISTED Admitting Unavaila ble GARRISON, DR CELIA Ward Primary Care Unavailable NILL, DR CHAIREZ Admitting Unavailable NILL, DR CHAIREZ Attending Unavailable NILL, DR CHAIREZ Consulting Unavailable HANNA, RADHIKA Consulting Unavailable MORGOS, DARREL Consulting Unavailable NILL, DR CHAIREZ Admitting Unavailable MISC, DR MIDDLETON Primary Care Unavailable NILL, DR CHAIREZ Attending Unavailable NILL, DR CHAIREZ Consulting Unavailable MD Celia Garrison Primary Care Provider DO Alexandro Galvez Attending Provider [phone] Alexandro Galvez Admitting Unavailable Celia Garrison Primary Care Unavailable Alexandro Galvez Attending Unavailable Celia Garrison Attending Unavailable Celia Garrison Primary Care Unavailable Celia Garrison Admitting Unavailable Adis PA-Quoc, Ofelia Grace Attending Unavailab Tuan TAVERAS, Celia Whyte Primary Care Gelava stephany Garrison MD, Celia Whyte Primary Care Unava ilable Adis PA-C, Ofelia Grace Admitting Unavailab le Adis PAMeghanC, Ofelia Grace Attending Unavailab le Adis PAMeghanC, Ofelia Grace Attending Unavailab Tuan TAVERAS, Celia Whyte Primary Care Unava ilable Adis DEMARCUS, Ofelia Grace Attending Unavailab Tuan TAVERAS, Celia Whyte Primary Care Gelava stephany Garrison MD, Celia Whyte Referring Unava ilable Allergies Allergy Classification Reported Allergen(s) Allergy Type Date of Onset Reaction(s) Facility (3 sources) Acetaminophen / oxyCODONE; Translations: [acetaminophen-oxy codone] Drug Allergy Nausea (finding) [facility] [place] (3 sources) Alendronate; Translations: [alendronate] Drug Allergy Muscle pain (finding) [facility] [place] (10 sources) Clarithromycin; Translations: [clarithromycin] Drug Allergy 07-31-19 Unknown (qualifier value) [facility] [place] (11 sources) levoFLOXacin; Translations: [levofloxacin] Drug Allergy 07-31-19 Eruption of skin (disorder) [facility] [place] (4 sources) Sulfonamides (Antibiotic); Translations: [sulfa drugs] Drug allergy Unknown (qualifier value) [facility] [place] (1 source) Acetaminophen / oxyCODONE Drug Allergy 03-25-20 16 [facility] (1 source) Alendronate Drug Allergy 03-18-20 16 [facility] (1 source) Clarithromycin Drug Allergy 03-25-20 16 [facility] (1 source) levoFLOXacin Drug Allergy 03-25-20 16 [facility] (1 source) Quinolones (Antibiotic) Drug allergy (disorder) 03-25-20 16 [facility] (1 source) Sulfonamides (Antibiotic) Drug allergy (disorder) 05-01-19 14 [facility] (1 source) Acetaminophen Drug Allergy 07-31-19 [facility] (7 sources) Alendronate Drug Allergy 07-31-19 [facility] (7 sources) oxyCODONE Drug Allergy 07-31-19 [facility] (7 sources) Sulfonamides (Antibiotic) Allergy to substance 07-31-19 Comment:as a young child, pt. cannot recall reaction [facility] (7 sources) Biaxin XL *MACROLIDES* Allergy to substance 07-28-19 [facility] (1 source) Ciprofloxacin; Translations: [Cipro] Drug Allergy [facility] Rep[facility] (1 source) symbalta; Translations: [symbalta] Propensity to adverse reactions to drug (disorder) [facility] Repository Medications Current Medications Medication Drug Class(es) Dates Sig (Normalized) Sig (Original) [id number] 200 actuat albuterol 0.09 mg/actuat metered dose [...] Refill(s) 0 Start Date: 12/17/21 Status: Ordered diclofenac potassium 50 mg oral tablet (1 source) Nonsteroidal Anti-inflammatory Drug Start: 12-17-2021 take 1 tablet by mouth twice daily diclofenac potassium 50 mg oral tablet 50 mg = 1 tab(s), Oral, BID, Refills(s) 0 Start Date: 12/17/21 Status: Ordered omeprazole 20 mg oral tablet (1 source) [...] Refills(s) 0 Start Date: 02/01/22 Status: Ordered sucralfate 1000 mg oral tablet (1 source) Aluminum Complex Start: 02-01-2022 sucralfate tab 1 gm = 1 tab(s), Oral, QIDACHS, Refills(s) 0 Start Date: 02/01/22 Status: Ordered Completed/Discontinued Medications Medication Drug Class(es) Dates Sig (Normalized) Sig (Original) acetaminophen 325 mg / HYDROcodone bitartrate 5 mg oral tablet (20 sources) Opioid Agonist Start: 08-03-2023 End: 01-24-2024 take 1 tablet by mouth three times daily Hydrocodone-Acetami nophen Discontinued 1 TAB PO Three times daily 90 December 27, 2023 January 24, 2024 8:18am Start: 08-03-2023 take 1 tablet by margarito th three times daily Hydrocodone-Acetaminophen Active 1 TAB P O Three times daily 90 August 03, 2023 Start: 05-26-2023 End: 07-31-2023 take 1 tablet by mouth three times daily Hydrocodone-Acetaminophen Discontinued 1 TAB PO Three times daily 90 May 26, 2023 June 26, 2023 12:47pm Start: 12-17-2021 take 1 tablet by margarito th three times daily acetaminophen-hydrocodone 325 mg-5 mg or al tablet 1 tab(s), Oral, TID, Refill(s) 0 Start Date: 12/17/21 Status: Ordered amitriptyline hydrochloride 50 mg oral tablet (9 sources) Tricyclic Antidepressant Start: 07-28-2023 End: 02-08-2024 take 1 tablet by mouth once daily at bedtime Amitriptyline Discontinued 50 MG PO Daily at bedtime July 28, 2023 12:00am February 08, 2024 1:58pm [employer] tablet at bedtime Orally Once a day; Note: Source Status: Start; Refills: 3; Qty: 90 Tablet; Provider: Bladimir Ward Start: 12-17-2021 take 1 tablet by margarito th once daily at bedtime amitriptyline 50 mg Tab 50 mg = 1 tab(s), Oral, Once a day (at bedtime), Refills(s) 0 Start Date: 12/17/21 Status: Ordered cefdinir 300 mg oral capsule (4 sources) Cephalosporin Antibacterial Start: 01-09-2024 End: 02-08-2024 take 300 mg by mouth twice daily Cefdinir Discontinued 300 MG PO Twice daily January 09, 2024 12:00am February 08, 2024 1:53pm doxycycline hyclate 100 mg oral tablet (6 sources) Tetracycline-class Drug Start: 10-13-2023 End: 11-01-2023 [...] 13, 2023 3:47pm November 01, 2023 9:18am fluticasone (12 sources) Corticosteroid Start: 01-24-2024 End: 02-08-2024 take 1 puff(s) by inhalation twice daily Fluticasone Propionate Discontinued 1 PUFF INHALATION Twice daily 01.13January 24, 2024 8:18am February 08, 2024 2:20pm administer with spacer Start: 01-24-2024 take 1 puff(s) by in halation twice daily Fluticasone Propionate Active 1 PUFF INHALATION Twice daily 01.13January 24, 2024 8:18am administer with spacer Start: 12-05-2023 End: 01-24-2024 take 1 puff(s) by inhalation twice daily Fluticasone Propionate Discontinued 1 PUFF INHALATION Twice daily 01.13December 05, 2023 2:47pm January 24, 2024 8:18am administer with spacer Start: 12-05-2023 take 1 puff(s) by in halation twice daily Fluticasone Propionate Active 1 PUFF INHALATION Twice daily 10.6 December 05, 2023 2:47pm administer with spacer Start: 11-01-2023 End: 12-05-2023 take 1 puff(s) by inhalation twice daily Fluticasone Propionate Discontinued 1 PUFF INHALATION Twice daily November 01, 2023 12:00am December 05, 2023 2:48pm administer with spacer Start: 11-01-2023 take 1 puff(s) by in halation twice daily Fluticasone Propionate Active 1 PUFF INHALATION Twice daily November 01, 2023 12:00am administer with spacer Fluticasone Propion-Salmeterol (9 sources) Corticosteroid, beta2-Adrenergic Agonist Start: 07-28-2023 End: [...] 6 Start Date: 12/17/21 Status: Ordered Methylprednisolone (5 sources) Corticosteroid Start: 11-01-2023 End: 12-05-2023 Methylprednisolone Discontin ued 0 PO per package directions November 01, 2023 12:00am December 05, 2023 2:48pm PO PER PKG DIR for 6 days Start: 11-01-2023 Methylpredniso lone Active 0 PO per package directions November 01, 2023 12:00am PO PER PKG DIR for 6 days predniSONE 20 mg oral tablet (4 sources) Start: 01-09-2024 End: 02-08-2024 take 20 mg by mouth twice daily Prednisone Discontinued 20 MG PO Twice daily January 09, 2024 12:00am February 08, 2024 1:53pm pregabalin 50 mg oral capsule (7 sources) Start: 07-31-2023 End: 07-31-2023 take 1 capsule by mouth twice daily Pregabalin (Lyrica) 50 mg capsule Discontinued 50 MG PO Twice daily 60 July 31, 2023 12:00am July 31, 2023 [...] Chronic Chronic obstructive pulmonary disease and bronchiectasis (18 sources) Chronic obstructive lung disease; Translations: [Chronic [...] BL] Onset: 01-17-2022 Chronic E Codes: Natural/environment (9 sources) Tick bite; Translations: [Bitten or stung by nonvenomous insect and other nonvenomous arthropods, initial encounter] 10-13-2023 Episodic Esophageal disorders (7 sources) Gastroesophageal reflux disease without esophagitis; Translations: [Gastro-esophageal reflux disease without esophagitis] Onset: 12-22-2021 Chronic Gastritis and duodenitis (1 source) Unspecified chronic gastritis without bleeding; Translations: [UNS CHRONIC GASTRITIS W/O BLEEDING] Onset: 01-17-2022 Chronic Headache; including migraine (9 sources) Headache; Translations: [Headache] 10-13-2023 Episodic Mood disorders (2 sources) Depressive disorder 12-17-2021 Chronic Osteoarthritis (6 sources) Primary gonarthrosis, bilateral; Translations: [Bilateral primary osteoarthritis of knee] 01-24-2024 Chronic Other aftercare (1 source) Other correction (current) drug therapy; Translations: [OTH NURSING HOME CURRENT DRUG THERAPY] Onset: 01-17-2022 Episodic Other bone disease and musculoskeletal deformities (2 sources) Osteopenia 12-17-2021 Episodic Other bone disease and musculoskeletal deformities (1 source) Other specified disorders of bone density and structure, unspecified site; Translations: [OTH D/O BONE DEN STRUCT UNS SITE] Onset: 01-17-2022 Episodic Other non-traumatic joint disorders (6 sources) Joint pain; Translations: [Pain in unspecified joint] 10-13-2023 Episodic Other non-traumatic joint disorders (3 sources) Pain in unspecified joint; Translations: [Pain in joint, site unspecified] 10-13-2023 Episodic Other non-traumatic joint disorders (10 sources) Pain in right knee; Translations: [Pain [...] satiety; Translations: [EARLY SATIETY] Onset: 01-17-2022 Episodic Residual codes; unclassified (1 source) Menopause present; Translations: [Asymptomatic menopausal state] 02-08-2024 Episodic Residual codes; unclassified (1 source) Asymptomatic menopausal state; Translations: [Symptomatic menopausal or female climacteric states] 02-08-2024 Episodic Spondylosis; intervertebral disc disorders; other back [...] Test Name Value Interpretation Reference Range Facility Provider Letteron 02-29-2024 Provider Letter (Inserted Image. Gela ble to display) Celia Whittaker [address], [place] [address] Re: Cristine Manley Date of Visit: 02/23/2024 Dear Celia Garrison MD, Please see attached results on this mutual patient you have with [facility] Result Name Current Result CT Spine Thoracic/Lumbar Myelogram w/Con 02/23/2024 Let me know if you have any questions or concerns. Sincerely, Jaclyn Bliss [facility] RADIOLOGICAL ENGINEER Clinical Lead Health Resident Medical Officer C C Providers: [facility] CT Spine Thoracic/Lumbar Mye logram w/Conon 02-27-2024 CT Spine Thoracic/Lumbar Myelogram w/Con EXAMINATION: CT Spine Thoracic/Lumbar Myelogram w/Con HISTORY: Thoracic radiculopathy, lumbar radiculopathy. Spine surgery April 2023. COMPARISON: MRI of the lumbar spine dated September 01, 2011 and lumbar x-ray studies of February 19, 2024. TECHNIQUE: CT studies of the thoracic and lumbar spine were acquired with additional review in the reconstructed coronal and sagittal planes. There is intrathecal myelographic contrast, injection procedure separately dictated. Dose reduction techniques were achieved by using automated exposure control and/or adjustment of mA and/or kV according to patient size and/or use of iterative reconstruction technique. FINDINGS: The thoracic and lumbar bodies are intact. I do identify 4 mm anterolisthesis of L4 on L5. There is normal alignment present at the remaining thoracic and lumbar levels. The thoracic cord signal character and configuration appears to be normal, tip of the conus medullaris lies at T12-L1. Axial images correlate as follows: There is a right central disc protrusion at T6-T7 with some endplate calcification indicating long-standing protrusion. This does abut the right ventral cord. There is no canal, recess, or foramen stenosis. At T11-T12 there is a left recess and foraminal focused protrusion present with shallow impression on the ventral subarachnoid space. There appears to be moderate left foraminal stenosis, perhaps with slight displacement of the nerve root in the left lateral foramen. At the T12-L1 level there is prior left laminectomy with additional resection of the inferior facet of T12 and superior facet of L1 on the left. There appears to be a fluid collection posterolaterally contiguous with the thecal sac on the left within the surgical defect and posterior left paramedian soft tissues. This appears to be contiguous with the opacified subarachnoid space at the T12-L1 interspace level. The posterior paraspinal fluid collection is measuring approximately 6 cm axial height, 3.8 cm AP, and up to 17 mm in transverse dimension. Note made of central disc protrusion T12-L1 with shallow ventral impression on the thecal sac without canal, recess, or foramen stenosis. No discogenic encroachment of the canal or recesses at the lower lumbar levels. I do see that there is prominent facet arthrosis at L4-L5 and pseudo-bulging of the disc present. The visible included paraspinal and retroperitoneal soft tissues in the lumbar region are unremarkable. The included lung comer are clear. There is some apical pleural thickening and pleuroparenchymal scarring present on the right. I do see that the left thyroid lobe is surgically absent. There appears to be a dominant nodule of the right thyroid lobe with at least one small internal calcification, which should be further clarified sonographically. IMPRESSION: Post myelographic CT study shows right central disc protrusion T6-T7 with abutment of the right ventral cord. No high-grade canal, recess, or foramen stenosis. At the T11-T12 level there is left recess and foraminal focused disc protrusion with moderate left foraminal stenosis and mild impression on the left ventral thecal sac without canal stenosis. At T12-L1 prior left side laminectomy and facetectomy surgical changes are present. 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 The opacified pseudomeningocele is measuring approximately 6 x 3.8 x 1.7 cm as detailed above. The significance of this finding should be closely clinically correlated. Left hemithyroidectomy noted. Right lobe appears to be composed of a heterogeneous density nodule, which should be further correlated sonographically as to significance. Final Dictated by: Ayaz Carlton DO Dictated DT/TM: 02.27.2024 8:38 am Signed by: Ayaz Carlton DO Signed (Electronic Signature): 02.27.2024 10:31 am Transcribed DT/TM: 02.27.2024 10:18 am (If Report Is Signed, Electronically Signed in Other Vendor System) Normal [facility] PTon 02-23-2024 INR Coag (PPP) [Relative time] 1.0 {INR} Normal <=3.5 [facility] Comment on above: Result Comment: INR has no normal range. INR Therapeutic range is: 2.0-3.0 (AF, CVA, TIAs, DVT prophylaxis, acute DVT) 2.5-3.5 ([facility] heart valves, recurrent thrombosis/emboli) Performed By: #### P TINR #### [facility] [address] [place] [address] PT Coag (PPP) [Time] 10.3 s Normal 9.2-12.0 [facility] Comment on above: Performed By: #### P TINR #### [address] [address] PTTon 02-23-2024 aPTT Coag (Bld) [Time] 24.8 s Normal 19.5-28.2 [facility] Comment on above: Performed By: #### P TT #### [address] [address] Platelet Counton 02-23-2024 Platelet 300 x10*3/mcL Normal 150-450 [facility] Comment on above: Performed By: #### P LTS #### [address] [address] XR Hip 2-3 Views Lefton 02-08 XR Hip 2-3 Views Left EXAM: XR Hip 2-3 Views Left, XR Spine Lumbosacral Bending 2-3 Views, XR Spine Cervical 4 or 5 Views HISTORY: Pain in joint, hip, pelvis or thigh. COMPARISON: None. TECHNIQUE: Routine views were obtained for left hip, cervical spine and lumbosacral spine. FINDINGS/IMPRESSION: Left hip: 1. There is moderate bilateral hip joint osteoarthritis. 2. 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 Cervical spine: 1. There is grade 1 retrolisthesis of C3 over C4 and C5 over C6. There is no evidence of instability at these levels with flexion and extension views. 2. There is severe loss of disc height at C3-C4, C5-C6 and C6-C7 with endplate spurring indicating severe disc degenerative changes at this level. 3. No acute fracture or traumatic subluxation. Lumbar spine: 1. Diffuse disc degenerative changes of the lumbar spine is seen throughout the lumbar spine, loss of disc height and endplate spurring. 2. No acute fracture or subluxation. No evidence of instability. 3. Grade 1 retrolisthesis is seen at L1 over L2. Final Dictated by: Alexandra Aleman MD Dictated DT/TM: 02/23/2024 2:47 pm Signed by: Alexandra Aleman MD Signed (Electronic Signature): 02/23/2024 3:14 pm Transcribed DT/TM: 02/23/2024 2:59 (If Report Is Signed, Electronically Signed in Other Vendor System) Normal [facility] Spine 2 or More Areas CLINICAL HISTORY: Radiculopathy. EXAMINATION: A fluoroscopically guided thoracolumbar myelogram was performed. FLUOROSCOPY TIME: 12 seconds DOSE: 10.6 mGy Reference air kerma (Ka,r) TECHNIQUE AND FINDINGS: The procedure, risks and benefits were explained to the patient and written consent was obtained. The patient was placed in the prone position on the fluoroscopy table. The lumbar spine was prepped and draped in usual sterile fashion. Maximum sterile barrier was utilized. Fluoroscopy was used to localize the intervertebral space at L2-L3. A timeout was completed. The skin was anesthetized with 2% lidocaine. Under fluoroscopic guidance, a 22-gauge spinal needle was inserted into the thecal sac. A small amount of contrast was injected and flowed freely around the nerve roots. Approximately 13 cc of Omnipaque 180 was injected into the thecal sac. There was no myelographic block. The needle was removed and hemostasis was achieved. The patient was placed in the left lateral decubitus position and a lateral image of the lumbar spine was obtained. The table was placed in the Trendelenburg position. Contrast flowed freely to the thoracic spine. A screen capture images obtained. The patient was sent immediately to CT. Please see CT report for further diagnostic details. IMPRESSION: Successful and uneventful fluoroscopically guided thoracolumbar myelogram. Final Dictated by: Alexey Morgan MD Dictated DT/TM: 02/23/2024 10:10 am Signed by: Alexey Morgan MD Signed (Electronic Signature): 02/23/2024 10:11 am (If Report Is Signed, Electronically Signed in Other Vendor System) Normal [facility] XR Spine Cervical [address] [facility] 02-23-2024 XR Spine Cervical 4 or 5 Views EXAM: XR Hip 2-3 Views Left, XR Spine Lumbosacral Bending 2-3 Views, XR Spine Cervical 4 or 5 Views HISTORY: Pain in joint, hip, pelvis or thigh. COMPARISON: None. TECHNIQUE: Routine views were obtained for left hip, cervical spine and lumbosacral spine. FINDINGS/IMPRESSION: Left hip: 1. There is moderate bilateral hip joint osteoarthritis. 2. 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 Cervical spine: 1. There is grade 1 retrolisthesis of C3 over C4 and C5 over C6. There is no evidence of instability at these levels with flexion and extension views. 2. There is severe loss of disc height at C3-C4, C5-C6 and C6-C7 with endplate spurring indicating severe disc degenerative changes at this level. 3. No acute fracture or traumatic subluxation. Lumbar spine: 1. Diffuse disc degenerative changes of the lumbar spine is seen throughout the lumbar spine, loss of disc height and endplate spurring. 2. No acute fracture or subluxation. No evidence of instability. 3. Grade 1 retrolisthesis is seen at L1 over L2. Final Dictated by: Alexandra Aleman MD Dictated DT/TM: 02/23/2024 2:47 pm Signed by: Alexandra Aleman MD Signed (Electronic Signature): 02/23/2024 3:14 pm Transcribed DT/TM: 02/23/2024 2:59 (If Report Is Signed, Electronically Signed in Other Vendor System) [facility] XR Spine Lumbosacral Bending 2-3 [facility] 02-23-2024 XR Spine Lumbosacral Bending 2-3 Views EXAM: XR Hip 2-3 Views Left, XR Spine Lumbosacral Bending 2-3 Views, XR Spine Cervical 4 or 5 Views HISTORY: Pain in joint, hip, pelvis or thigh. COMPARISON: None. TECHNIQUE: Routine views were obtained for left hip, cervical spine and lumbosacral spine. FINDINGS/IMPRESSION: Left hip: 1. There is moderate bilateral hip joint osteoarthritis. 2. 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 Cervical spine: 1. There is grade 1 retrolisthesis of C3 over C4 and C5 over C6. There is no evidence of instability at these levels with flexion and extension views. 2. There is severe loss of disc height at C3-C4, C5-C6 and C6-C7 with endplate spurring indicating severe disc degenerative changes at this level. 3. No acute fracture or traumatic subluxation. Lumbar spine: 1. Diffuse disc degenerative changes of the lumbar spine is seen throughout the lumbar spine, loss of disc height and endplate spurring. 2. No acute fracture or subluxation. No evidence of instability. 3. Grade 1 retrolisthesis is seen at L1 over L2. Final Dictated by: Alexandra Aleman MD Dictated DT/TM: 02/23/2024 2:47 pm Signed by: Alexandra Aleman MD Signed (Electronic Signature): 02/23/2024 3:14 pm Transcribed DT/TM: 02/23/2024 2:59 (If Report Is Signed, Electronically Signed in Other Vendor System) Normal [facility] Neurosurgery Office/Clinic N sherry 02-13-2024 Neurosurgery Office/Clinic Note Chief Complaint Back lumbar pain radiculopathy consult History of Present Illness The patient is a pleasant 64-year-old right-handed female with history of chronic nicotine use, asthma and recently diagnosed COPD for which she is planned to see a manager payment in the near future. She also has history of decompression/discectomy T12-L1 by Dr. Ugarte in 2013 with good postoperative benefit. The patient presents to the neurosurgical office on behalf of of referral by Dr. Celia Garrison (primary care) regarding low back pain with radiation into the left lower extremity. The patient notes that pain has been chronic in nature, present even before her thoracolumbar surgery in 2013. Per her understanding, at the time, while her low lumbar spine was symptomatic, it did not require any surgical intervention at the time. She describes pain throughout the lumbar area, particularly left-sided with radiation into the gluteal area and lateral hip. By the end of the day, she notes that pain radiates also radiates around her lower abdomen. She describes burning sensation within the left posterior thigh particularly when laying in bed at night. 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 When her hip locks up, she notes that she is unable to get up from where she is laying and finds difficulty walking until the hip pops or releases allowing her to return to her normal walking. She describes intermittent cramping in the anterior medial thighs bilaterally the left more so than right. She denies any lower extremity weakness, numbness or paresthesia. She denies any catching of her toes or slapping of her feet with walking. She notes urinary frequency and incomplete bladder emptying though denies urinary incontinence. She denies bowel incontinence or saddle paresthesia. The patient reports cervicalgia which is relatively new over the past month or so. This radiates into the right trapezial angle though she denies any upper extremity radicular pain, numbness, paresthesia or weakness. No difficulty with fine motor skills of the hands. She notes thoracic spine pain as well as the above-mentioned radiation of pain wrapping around her lower abdomen though denies any associated numbness or paresthesia. The patient reports having a fall approximately 1.5 weeks ago when she tripped over an object on the ground causing her to land on her right side fracturing her right seventh rib. She was evaluated at the emergency department of a different local hospital at which time the right rib fracture was identified. She also notes bruising throughout the right lateral thigh which is currently resolving. The patient reports that she is unsure if she is able to undergo MRIs as she has a needle within her jaw that occurred during a dental appointment when the needle broke off. This occurred approximately 8 years ago she followed up with ENT afterward though they felt it was too risky for removal of the needle. Conservative measures: Oral anti-inflammatory medication including ibuprofen and Tylenol with limited benefit. Oral muscle relaxants including tizanidine which helps pain to be more tolerable though does not resolve. Oral narcotics including [place] which makes pain tolerable though does not resolve. Topical agents including lidocaine patches and Bengay with limited benefit. Pain management injection modalities years ago with temporary benefit lasting only a few days. Physical therapy years ago without significant benefit. Chiropractic manipulation x 1 visit without benefit therefore patient never returned. Activity modification No recent imaging of the lumbar spine PAST MEDICAL HISTORY: Asthma Newly diagnosed COPD, scheduled to see a manager payment in the near future Chronic nicotine use Cataracts with plans for upcoming surgical removal. PAST SURGICAL HISTORY: Bilateral bunionectomies, 04/2016 T12-L1 decompression/discectomy by Dr. Ugarte in 2013 Oophorectomy, 1984 Appendectomy, 1972 Tonsillectomy, 1972 ALLERGIES: Cipro which causes dizziness, chest pain Sulfa which causes unknown reaction Cymbalta which causes urinary retention MEDICATIONS: See medication list SOCIAL HISTORY: The patient is . She has 1 child, 4 grandchildren and [address] on the [address] She notes tobacco use of 1/2 pack/day and is actively trying to quit. She previously smoked approximately 2 packs/day. She denies alcohol, recreational drug use or medical marijuana use. 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 She denies any Worker's Comp. related claims regarding today's visit FAMILY HISTORY: Lung cancer: Father Diabetes mellitus: Mother Hypertension: Mother Review of Systems Constitutional: [No fevers, chills, sweats] Eye: [No recent visual problems] ENMT: [ (more content not included)... Normal [facility] Provider Letteron 02-13-2024 Provider Letter (Inserted Image. Gela ble to display) Celia Garrison MD [address] [place] [address], [facility] [place] [address] Re: Cristine Manley Date of Visit: 02/13/2024 Dear Celia Garrison MD, This patient was recently seen in the neurosurgical office. Please see attached note for further details. Let me know if you have any questions or concerns. Sincerely, DEMARCUS Gan Providers: The following document(s) were included in the letter: February 13, 2024 09:39:53 EST - (02/13/2024) Neurosurgery Office Visit Note Normal [facility] XR knee BI 3V - NOT FOR ER U Sanam 01-24-2024 XR knee BI 3V - NOT FOR ER USE [facility] [address] [place] [address] XRay Report Signed Patient: Cristine Manley MR#: [id number] 53 : 1960 Acct:[id number] Age/Sex: 64 / F ADM Date: 01/24/24 Loc: SOXD Room: Type: [facility] Attending Dr: Alexandro Galvez DO Copies to: [...] Sunday Graham M.D.01/24/2024 3:45 PM Dictation Location: [place] [address] Transcribed By: [facility] 01/24/24 154 Dictated By: Sunday Graham II, MD 01/24/24 154 Signed By: 01/24/24 1545 Normal [facility] Basophils Auto (Bld) [#/Vol] on 01-19-2024 Basophils (Bld) [#/Vol] 0.0 10 3/uL 0.0-0.1 [facility] Basophils/100 WBC Auto (Bld) on 01-19-2024 Basophils/100 WBC (Bld) 0.2 % 0.2-2.0 [facility] Eosinophils/100 WBC Auto (Bl d)on 01-19-2024 Eosinophils/100 WBC (Bld) 4.3 % 0.9-7.0 [facility] Erythrocyte distribution wid th Auto (RBC) [Ratio]on 01-19-2024 Erythrocyte distribution width (RBC) [Ratio] 13.1 % 11.0-15.0 [facility] Estimated glomerular filtrat ion rate (GFR) non- Americanon 01-19-2024 GFR/1.73 sq M.predicted among non-blacks MDRD (S/P/Bld) [Vol rate/Area] mL/min/{1.73_m2} >=60 mL/min/1.73 m 2 [facility] Fibrin D-dimer [Presence] in Platelet poor plasma by Latex agglutinationon 01-19-2024 Fibrin D-dimer LA Ql (PPP) 0.43 mg/L FEU <=0.59 [facility] Comment on above: Increases in D-Dimer concentration [...] Hematocrit (Bld) [Volume fraction] 39.5 % 36.0-48.0 [facility] Hemoglobin [Mass/volume] in Bloodon 01-19-2024 Hemoglobin (Bld) [Mass/Vol] 12.8 g/dL 12.0-16.0 [facility] Laboratory - Chemistry and C hemistry - challengeon 01-19-2024 Calcium [Mass/Vol] 9.0 mg/dL 8.5-10.1 [facility] Chloride [Moles/Vol] 105 mmol/L 98-107 [facility] CO2 [Moles/Vol] 28.7 mmol/L 21.0-32.0 [facility] Creatinine [Mass/Vol] 0.92 mg/dL 0.55-1.02 [facility] GFR/1.73 sq M.predicted MDRD (S/P/Bld) [Vol rate/Area] mL/min/{1.73_m2} >=60 mL/min/1.73 m 2 [facility] Glucose [Mass/Vol] 78 mg/dL 74-106 [facility] Potassium [Moles/Vol] 4.0 mmol/L 3.5-5.1 [facility] Sodium [Moles/Vol] 138 mmol/L 136-145 [facility] Urea nitrogen [Mass/Vol] 27.0 mg/dL High 7.0-18.0 [facility] Urea nitrogen/Creatinine [Mass ratio] 29.3 mg/mg [facility] Laboratory - Hematology and Cell countson 01-19-2024 Immature granulocytes/100 WBC (Bld) 0.3 % 0.0-0.5 [facility] Laboratory - Microbiology an d Antimicrobial susceptibilityon 01-19-2024 SARS-CoV-2 (COVID-19) RNA JOSELUIS+probe Ql (Unsp spec) Negative NEGATIVE [facility] Comment on above: This test has not [...] (Bld) [#/Vol] 12.6 10 3/uL High 4.0-11.0 [facility] Lymphocytes Auto (Bld) [#/Vo l]on 01-19-2024 Lymphocytes (Bld) [#/Vol] 4.4 10 3/uL High 1.2-3.8 [facility] Lymphocytes/100 WBC Auto (Bl d)on 01-19-2024 Lymphocytes/100 WBC (Bld) 35.0 % 20.5-60.0 [facility] MCH Auto (RBC) [Entitic mass ]on 01-19-2024 MCH (RBC) [Entitic mass] 29.4 pg 26.7-34.0 [facility] MCHC Auto (RBC) [Mass/Vol]on 01-19-2024 MCHC (RBC) [Mass/Vol] 32.4 g/dL 29.9-35.2 [facility] MCV Auto (RBC) [Entitic vol] on 01-19-2024 MCV (RBC) [Entitic vol] 90.6 fL 81.0-99.0 [facility] Monocytes Auto (Bld) [#/Vol] on 01-19-2024 Monocytes (Bld) [#/Vol] 1.2 10 3/uL High 0.3-0.8 [facility] Monocytes/100 WBC Auto (Bld) on 01-19-2024 Monocytes/100 WBC (Bld) 9.5 % 1.7-12.0 [facility] Neutrophils Auto (Bld) [#/Vo l]on 01-19-2024 Neutrophils (Bld) [#/Vol] 6.4 10 3/uL 1.4-6.5 [facility] Neutrophils/100 WBC Auto (Bl d)on 01-19-2024 Neutrophils/100 WBC (Bld) 50.7 % 43.0-75.0 [facility] No Panel Informationon 01-18 Bedside Influenza Type A Antigen Negative [facility] Comment on above: Negative for Flu A p rotein antigen. Infection due to Flu Acannot be ruled out. Flu A antigen in the sample may bebelow the detection limit of the test. Bedside Influenza Type B Antigen Negative [facility] Comment on above: Negative for Flu B p rotein antigen. Infection due to Flu Bcannot be ruled out. Flu B antigen in the sample may bebelow the detection limit of the test. Eosinophils # (Auto) 0.5 10 3/uL 0.0-0.7 [facility] Immature Granulocyte # (Auto) 0.04 10 3/uL High 0.00-0.03 [facility] Troponin I High Sensitivity 5.8 pg/mL 4.0-51.3 [facility] Comment on above: CUT-OFF POINTS HAVE BEEN [...] (Bld) [Entitic vol] 9.3 fL Low 9.5-13.5 [facility] Platelets Auto (Bld) [#/Vol] on 01-19-2024 Platelets (Bld) [#/Vol] 304 10 3/uL 150-450 [facility] RBC Auto (Bld) [#/Vol]on RBC (Bld) [#/Vol] 4.36 10 6/uL 4.20-5.40 [facility] Serum or plasma anion gap de terminationon 01-19-2024 Anion gap [Moles/Vol] 8.3 mmol/L [facility] Borrelia burgdorferi IgG+IgM Ab [Presence] in Serum by Immunoassayon 10-13-2023 B. burgdorferi IgG+IgM IA Ql (S) Negative Negative [facility] Comment on above: Lyme antibodies not detected. Reflex testing is notindicated.No laboratory evidence of infection with B. burgdorferi(Lyme disease). Negative results may occur in patientsrecently infected (less than or equal to 14 days) with B.burgdorferi. If recent infection is suspected, repeattesting on a new sample collected in 7 to 14 days isrecommended.Performed at: - [address] [id number] Director: Jeovany Bazan PhD, Phone: [phone] General Surgery Office/Clini c Noteon 02-21-2022 General [...] Primary malignant neoplasm of lung: Father. Normal [facility] Comment on above: Result Comment: Elec tronically Signed By: Mihaela CASAS MD\.br\Date and Time Signed: 02/21/22 16:42 EST Ambulatory Visit Summaryon 1 Ambulatory Visit Summary CRISTINE MANLEY :1960 Visit Date:02/01/2022 Ambulatory Visit Instructions Your Care Team Attending Physician - Mihaela CASAS MD Primary Care Physician - CELIA GARRISON MD [...] Tobacco user Very low density lipoprotinemia Normal [facility] Reminderson 02-01-2022 Reminders - From: Sushma Shell LPN To: N - Clinical; Sent: 02/01/2022 16:18:52 EDT Show up: 04/12/2022 07:00:00 EST Subject: EGD recall Due Date/Time: 05/04/2022 07:00:00 EST Reminder/Recall Patient is due to repeat EGD 05/04/2022 due to gastric ulcer. Normal [facility] Outside Colonoscopyon 2021 Outside Colonoscopy [id number]#[id number]:127 Normal [facility] Pathology Noteon 01-14-2022 Pathology Note [id number]#[id number]:127 Normal [facility] Reminderson 01-14-2022 Reminders - From: Sushma Shell LPN To: [facility] - Clinical; Sent: 01/14/2022 08:07:35 EDT Show up: 12/14/2031 07:00:00 EDT Subject: colonoscopy recall Due Date/Time: 01/13/2032 07:00:00 EDT Reminder/Recall Patient is due for screening colonoscopy 01/13/2032. Normal [facility] Pre-Certification Formon Pre-Certification Form [id number]:127 Normal [facility] Lab Reportson 01-11-2022 Lab Reports [id number]#[id number]:127 Normal [facility] SARS-CoV-2 (COVID-19) RNA JOSELUIS+probe Ql (Unsp spec) Not detected Normal NOT DETECTED [facility] Comment on above: Result Comment: This test is not yet approved or cleared by the [place] FDA. When there are no FDA-approved or cleared tests available, and other criteria are met, FDA can make tests available under an emergency access mechanism called an Emergency Use Authorization (EUA). The EUA for this test is supported by the Bariatric Nurse of Health and Human Service's (HHS's) declaration [...] consistent with SARS-CoV-2. Performed By: #### C [facility] #### [facility] [address] [place] [address] Dr. Pablo Sheth Physician Orderon 12-23-2021 Physician Order [id number]:127 Normal [facility] Ambulatory Visit Summaryon 0 12-22-2021 Ambulatory Visit Summary CRISTINE MANLEY :1960 Visit Date:12/22/2021 Ambulatory Visit Instructions Your [...] Tobacco user Very low density lipoprotinemia Normal [facility] CBC AUTO DIFFon 12-17-2021 BASO # 0.1 103/ul Normal 0.0-0.1 [facility] Comment on above: Performed By: #### D ATCBC #### [facility] [address] [place] [address] [address] Pablo Sheth Basophils/100 WBC (Bld) 0.4 % Normal 0.2-2.0 [facility] Comment on above: Performed By: #### D ATCBC #### [facility] [address] [place] [address] Dr. Pablo Sheth EO # 0.3 103/ul Normal 0.0-0.7 [facility] Comment on above: Performed By: #### D ATCBC #### [facility] [address] [place] [address] Dr. Pablo Sheth Eosinophils/100 WBC (Bld) 2.4 % Normal 0.9-7.0 [facility] Comment on above: Performed By: #### D ATCBC #### [facility] [address] [place] [address] Dr. Pablo Sheth Erythrocyte distribution width (RBC) [Ratio] 13.2 % Normal 11.0-15.0 [facility] Comment on above: Performed By: #### D ATCBC #### [facility] [address] [place] [address] Dr. Pablo Sheth Hematocrit (Bld) [Volume fraction] 42.6 % Normal 36.0-48.0 [facility] Comment on above: Performed By: #### D ATCBC #### [facility] [address] [place] [address] Dr. Pablo Sheth Hemoglobin (Bld) [Mass/Vol] 13.7 g/dL Normal 12.0-16.0 [facility] Comment on above: Performed By: #### D ATCBC #### [facility] [address] [place] [address] Dr. Pablo Sheth IG # 0.05 10e3/ul Critically high 0.00-0.03 [facility] Comment on above: Performed By: #### D ATCBC #### [facility] [address] [place] [address] Dr. Pablo Sheth IG % 0.4 % Normal 0.0-0.5 [facility] Comment on above: Performed By: #### D ATCBC #### [facility] [address] [place] [address] Dr. Pablo Sheth LYMPH # 2.8 103/ul Normal 1.2-3.8 [facility] Comment on above: Performed By: #### D ATCBC #### [facility] [address] [place] [address] Dr. Pablo Sheth Lymphocytes/100 WBC (Bld) 20.9 % Normal 20.5-60.0 [facility] Comment on above: Performed By: #### D ATCBC #### [facility] [address] [place] [address] Dr. Pablo Sheth MCH (RBC) [Entitic mass] 29.2 pg Normal 26.7-34.0 [facility] Comment on above: Performed By: #### D ATCBC #### [facility] [address] [place] [address] Dr. Pablo Sheth MCHC (RBC) [Mass/Vol] 32.2 g/dL Normal 29.9-35.2 [facility] Comment on above: Performed By: #### D ATCBC #### [facility] [address] [place] [address] Dr. Pablo Sheth MCV (RBC) [Entitic vol] 90.8 fL Normal 81.0-99.0 [facility] Comment on above: Performed By: #### D ATCBC #### [facility] [address] [place] [address] Dr. Pablo Sheth MONO # 1.0 103/ul Critically high 0.3-0.8 [facility] Comment on above: Performed By: #### D ATCBC #### [facility] [address] [place] [address] Dr. Pablo Sheth Monocytes/100 WBC (Bld) 7.5 % Normal 1.7-12.0 [facility] Comment on above: Performed By: #### D ATCBC #### [facility] [address] [place] [address] Dr. Pablo Sheth NEUT # 9.2 103/ul Critically high 1.4-6.5 [facility] Comment on above: Performed By: #### D ATCBC #### [facility] [address] [place] [address] Dr. Pablo Sheth Neutrophils/100 WBC (Bld) 68.4 % Normal 43.0-75.0 [facility] Comment on above: Performed By: #### D ATCBC #### [facility] [address] [place] [address] Dr. Pablo Sheth Platelet mean volume (Bld) [Entitic vol] 9.3 fL Critically low 9.5-13.5 [facility] Comment on above: Performed By: #### D ATCBC #### [facility] [address] [place] [address] Dr. Pablo Sheth PLT 313 103/ul Normal 150-450 [facility] Comment on above: Performed By: #### D ATCBC #### [facility] [address] [place] [address] Dr. Pablo Sheth RBC 4.69 106/ul Normal 4.20-5.40 [facility] Comment on above: Performed By: #### D ATCBC #### [facility] [address] [place] [address] Dr. Pablo Sheth WBC 13.4 103/ul Critically high 4.0-11.0 [facility] Comment on above: Performed By: #### D ATCBC #### [facility] [address] [place] [address] Dr. Pablo Sheth BERKLEY - TSHon 12-17-2021 TSH 1.241 uIU/mL Normal 0.358-3.740 [facility] Comment on above: Performed By: #### D ATTTONYA DATBMP #### [facility] [address] [place] [address] Dr. Pablo Sheth TSH RANGE SEE BELOW Normal [facility] Comment on above: Result Comment: <0.3 4 UIU/ml HYPERTHYROID 0.34-5.60 UIU/ml EUTHYROID >5.60 UIU/ml HYPOTHYROID Performed By: #### D ATTSH DATBMP #### [facility] [address] [place] [address] Dr. Pablo Sheth BERKLEY- BMP WITH LIPIDon 2021 Anion gap [Moles/Vol] 11.9 mmol/L Normal [facility] Comment on above: Performed By: #### D ATTSH, DATBMP #### [facility] [address] [place] [address] [address] Pablo Sheth Calcium [Mass/Vol] 9.1 mg/dL Normal 8.5-10.1 [facility] Comment on above: Performed By: #### D ATTTONYA, DATBMP #### [facility] [address] [address] [address] Pablo Sheth Chloride [Moles/Vol] 104 mmol/L Normal 98-107 [facility] Comment on above: Performed By: #### D ATTTONYA, DATBMP #### [facility] [address] [place] [address] [address] Pablo Sheth Cholesterol [Mass/Vol] 207 mg/dL Critically high <=200 [facility] Comment on above: Performed By: #### D ATTTONYA, DATBMP #### [facility] [address] [place] [address] Dr. Pablo Sheth Cholesterol in HDL [Mass/Vol] 52 mg/dL Normal 40-60 [facility] Comment on above: Performed By: #### D ATTTONYA, DATBMP #### [facility] [address] [address] [address] Pablo Sheth Cholesterol in LDL [Mass/Vol] 141.4 mg/dL Normal [facility] Comment on above: Performed By: #### D ATTTONYA, DATBMP #### [facility] [address] [place] [address] [address] Pablo Sheth CO2 [Moles/Vol] 29.3 mmol/L Normal 21.0-32.0 [facility] Comment on above: Performed By: #### D ATTSH, DATBMP #### [facility] [address] [place] [address] [address] Pablo Sheth Creatinine [Mass/Vol] 0.77 mg/dL Normal 0.55-1.02 [facility] Comment on above: Performed By: #### D ATTSH, DATBMP #### [facility] [address] [place] [address] [address] Pablo Sheth EGFR-AF LIBYAN >60 Normal >=60 [facility] Comment on above: Performed By: #### D ATTTONYA, DATBMP #### [facility] [address] [place] [address] [address] Pablo Sheth EGFR-NON AF LIBYAN >60 Normal >=60 [facility] Comment on above: Performed By: #### D ATTTONYA, DATBMP #### [facility] [address] [address] [address] Pablo Sheth Glucose [Mass/Vol] 109 mg/dL Critically high 74-106 [facility] Comment on above: Performed By: #### D ATTTONYA, DATBMP #### [facility] [address] [place] [address] [address] Pablo Sheth HDL NORMAL > or = 60 mg/dl - LO W CARDIOVASCULAR RISK <40 mg/dl - HIGH CARDIOVASCULAR RISK Normal [facility] Comment on above: Performed By: #### D JOSE J, DATBMP #### [facility] [address] [place] [address] Dr. Pablo Sheth LDL CALC NORMAL SEE BELOW Normal [facility] Comment on above: Result Comment: <100 mg/dl OPTIMAL 100 - 129 mg/dl NEAR OR ABOVE OPTIMAL 130 - 159 mg/dl BORDERLINE HIGH 160 - 189 mg/dl HIGH >190 mg/dl VERY HIGH Performed By: #### D JOSE J DATBMP #### [facility] [address] [place] [address] Dr. Pablo Sheth Potassium [Moles/Vol] 4.2 mmol/L Normal 3.5-5.1 [facility] Comment on above: Performed By: #### D JOSE J DATBMP #### [facility] [address] [address] [address] Pablo Sheth Sodium [Moles/Vol] 141 mmol/L Normal 136-145 [facility] Comment on above: Performed By: #### D ATTTONYA, DATBMP #### [facility] [address] [address] [address] Pablo Sheth Triglyceride [Mass/Vol] 68 mg/dL Normal <=150 [facility] Comment on above: Performed By: #### D JOSE J DATBMP #### [facility] [address] [address] [address] Pablo Sheth Urea nitrogen [Mass/Vol] 26.0 mg/dL Critically high 7.0-18.0 [facility] Comment on above: Performed By: #### D ATTTONYA, DATBMP #### [facility] [address] [place], [place] [address] Dr. Pablo Sheth Urea nitrogen/Creatinine [Mass ratio] 33.8 mg/mg Normal [facility] Comment on above: Performed By: #### D ATTTONYA, DATBMP #### [facility] [address] [address] [address] Pablo Sheth VLDL CALC 13.6 mg/dL Normal [facility] Comment on above: Performed By: #### D ATTTONYA, DATBMP #### [facility] [address] [address] [address] Pablo Sheth Physician Referralon 022 Physician Referral [id number]:127 Normal [facility] Vital Signs Date Time Vital Sign Value Performing Clinician Faci lity 02-08-2024 13:55-0400 Body height 170.18 cm MD Celia Garrison Work Phone: [facility] 02-08-2024 13:55-0400 Body mass index (BMI) [Ratio] 27.9 kg/m2 MD Celia Garrison Work Phone: [facility] 02-08-2024 13:55-0400 Body weight 80.9 kg MD Celia Garrison Work Phone: [facility] 02-08-2024 13:55-0400 Diastolic blood pressure 78 mm[Hg] MD Celia Garrison Work Phone: [facility] 02-08-2024 13:55-0400 Heart rate 74 /min MD Cleia Garrison Work Phone: [facility] 02-08-2024 13:55-0400 SaO2% (BldA) [Mass fraction] 96 % MD Celia Garrison Work Phone: [facility] 02-08-2024 13:55-0400 Systolic blood pressure 110 mm[Hg] MD Celia Garrison Work Phone: [facility] 01-24-2024 14:35-0400 Body height 170.18 cm MD Celia Garrison Work Phone: [facility] 01-24-2024 14:35-0400 Body mass index (BMI) [Ratio] 28.3 kg/m2 MD Celia Garrison Work Phone: [facility] 01-24-2024 14:35-0400 Body weight 82.21 kg MD Celia Garrison Work Phone: [facility] 01-09-2024 15:17-0400 Body height 167.64 cm [facility] 01-09-2024 15:17-0400 Body mass index (BMI) [Ratio] 28.2 kg/m2 [facility] 01-09-2024 15:17-0400 Body weight 79.37 kg [facility] 01-09-2024 15:17-0400 Diastolic blood pressure 91 mm[Hg] [facility] 01-09-2024 15:17-0400 Heart rate 76 /min [facility] 01-09-2024 15:17-0400 SaO2% (BldA) [Mass fraction] 97 % [facility] 01-09-2024 15:17-0400 Systolic blood pressure 135 mm[Hg] [facility] 11-01-2023 08:57-0400 Body height 167.64 cm [facility] 11-01-2023 08:57-0400 Body mass index (BMI) [Ratio] 28.2 kg/m2 [facility] 11-01-2023 08:57-0400 Body weight 79.37 kg [facility] 11-01-2023 08:57-0400 Diastolic blood pressure 90 mm[Hg] [facility] 11-01-2023 08:57-0400 Heart rate 63 /min [facility] 11-01-2023 08:57-0400 Systolic blood pressure 136 mm[Hg] [facility] 10-13-2023 09:19-0400 Body height 167.64 cm [facility] 10-13-2023 09:19-0400 Body mass index (BMI) [Ratio] 28 kg/m2 [facility] 10-13-2023 09:19-0400 Body weight 78.92 kg [facility] 10-13-2023 09:19-0400 Diastolic blood pressure 76 mm[Hg] [facility] 10-13-2023 09:19-0400 Heart rate 78 /min [facility] 10-13-2023 09:19-0400 SaO2% (BldA) [Mass fraction] 98 % [facility] 10-13-2023 09:19-0400 Systolic blood pressure 118 mm[Hg] [facility] 07-31-2023 10:09-0400 Body height 167.64 cm [facility] 07-31-2023 10:09-0400 Body mass index (BMI) [Ratio] 28.8 kg/m2 [facility] 07-31-2023 10:09-0400 Body weight 80.9 kg [facility] 07-31-2023 10:09-0400 Diastolic blood pressure 89 mm[Hg] [facility] 07-31-2023 10:09-0400 Heart rate 74 /min [facility] 07-31-2023 10:09-0400 Systolic blood pressure 138 mm[Hg] [facility] 12-22-2021 14:20-0400 Blood Pressure Location Mihaela CASAS [facility] [place] 12-22-2021 14:20-0400 Diastolic blood pressure 80 mm[Hg] Mihaela CASAS [facility] [place] 12-22-2021 14:20-0400 Heart rate 72 /min Mihaela CASAS [facility] [place] 12-22-2021 14:20-0400 Respiratory rate 16 /min Mihaela CASAS [facility] [place] 12-22-2021 14:20-0400 Systolic blood pressure 116 mm[Hg] Mihaela CASAS General Surgery [place] Encounters Encounter Date Encounter Type Care Provider Facility Start: 03-04-2024 End: 03-04-2024 ambulatory Celia Garrison Facility:[facility] Start: 02-23-2024 End: 02-23-2024 ambulatory Celia Garrison MD Facility:[facility] Start: 02-19-2024 End: 02-19-2024 ambulatory Ofelia Arceo PA-C Facility:[facility] Start: 02-13-2024 End: 02-13-2024 ambulatory Ofelia QUINTANAQuoc Facility:[facility] Start: 02-08-2024 End: 02-08-2024 ambulatory MD Celia Garrison Work Phone: [facility] Work Phone: Start: 02-08-2024 End: 02-08-2024 Patient encounter procedure MD Celia Garrison Work Phone: [facility] Work Phone: Start: 02-07-2024 Non-patient / Non-visit MD Mala Garrison Work Phone: [facility] Work Phone: Start: 01-24-2024 End: 01-24-2024 ambulatory MD Celia Garrison Work Phone: [facility] Work Phone: Start: 01-24-2024 End: 01-24-2024 Patient encounter procedure MD Celia Garrison Work Phone: [facility] Work Phone: Start: 01-24-2024 End: 01-24-2024 Patient encounter procedure MD Celia Garrison Work Phone: [facility] Start: 01-24-2024 End: 01-24-2024 ambulatory MD Celia Garrison Work Phone: [facility] Work Phone: Start: 01-19-2024 Non-patient / Non-visit MD Mala Garrison Work Phone: [facility] Work Phone: Start: 01-19-2024 Non-patient / Non-visit MD Mala Garrison Work Phone: [facility] Work Phone: Start: 01-09-2024 End: 01-09-2024 ambulatory [facility] Work Phone: Start: 01-09-2024 End: 01-09-2024 Patient encounter procedure [facility] Work Phone: Start: 11-01-2023 End: 11-01-2023 ambulatory [facility] Work Phone: Start: 11-01-2023 End: 11-01-2023 Patient encounter procedure [facility] Work Phone: Start: 10-13-2023 End: 10-13-2023 ambulatory [facility] Work Phone: Start: 10-13-2023 End: 10-13-2023 Patient encounter procedure [facility] Work Phone: Start: 07-31-2023 End: 07-31-2023 ambulatory [facility] Work Phone: Start: 07-31-2023 End: 07-31-2023 Patient encounter procedure [facility] Work Phone: Start: 05-26-2023 Non-patient / Non-visit [facility] Work Phone: Start: 02-01-2022 End: 02-02-2022 ambulatory Mihaela CASAS Facility:[facility] Start: 02-01-2022 End: 02-01-2022 Patient encounter procedure Mihaela CASAS General Surgery [facility] [place] Start: 01-13-2022 Encounter for preprocedural laboratory examination DR MIHAELA CASAS [facility] Start: 01-12-2022 End: 01-13-2022 ambulatory Mihaela CASAS Facility:CD:[id number] Start: 01-10-2022 End: 01-11-[address] MIHAELA CASAS Facility:[facility] Start: 01-10-2022 End: 01-11-2022 Encounter for preprocedural laboratory examination DR MIHAELA CASAS Facility: Start: 12-22-2021 End: 12-23-2021 ambulatory Mihaela CASAS Facility:[facility] Start: 12-22-2021 End: 12-22-2021 Patient encounter procedure Mihaela CASAS General Surgery [facility] Start: 12-17-2021 End: 12-18-2021 ambulatory CELIA GARRISON PROVIDER Facility:[facility] Procedures Date Procedure Procedure Detail Performing Clinician Start: 01-24-2024 X-ray of both knees, three views MD Anoop Garrison Work Phone: Start: 01-12-2022 Colonoscopy Mihaela NILL Start: 01-12-2022 Esophagogastroduodenoscopy Mihaela NILL Bilateral oophorectomy Ebenezer el NILL Colonoscopy Mihaela NILL Decompression of thoracic spine Mihaela NILL Discectomy of spine Mihaela NILL Comment on above: T12-L1 T12-L1 Esophagogastroduodenoscopy M ichael NILL Excision of bunion Mihaela HALL Repair of vaginal tear Ebenezer el NILL Tonsillectomy Mihaela NILL Plan of Treatment Date Care Activity Detail Author Start: 03-25-2024 ambulatory Ambulatory Facility[facility] Start: 01-24-2024 X-ray of both knees, three views XR knee BI 3V - NOT FOR ER USE [facility] Start: 01-24-2024 XR Knee - bilateral 3 Views [facility] Start: 01-10-2024 [facility] Work Phone: DXA Skeletal system.axial Views for bone density [facility] Patient Education Low back pain in adults [facility] Work Phone: Patient referral [facility] Work Phone: [facility] Immunizations Immunization Date Immunization Notes Care Provider Fa isaacty 03-29-2021 COVID-19 mRNA, Comir martinez (Pfizer) [facility] 08-11-2020 COVID-19 mRNA, Comir martinez (Pfizer) [facility] 07-21-2020 COVID-19 mRNA, Comir martinez (Pfizer) [facility] 10-07-2018 diphtheria, tetanus toxoids and acellular pertussis vaccine, unspecified formulation [facility] 02-05-2014 tetanus and diphther ia toxoids, adsorbed, preservative free, for adult use (5 Lf of tetanus toxoid and 2 Lf of diphtheria toxoid) [facility] Payers Date Payer Category Payer Medicare 2023 Unknown 2021 Unknown [id number] 1960 Self-pay [id number] 1960 Unknown [id number] 1960 Unknown [id number] 1960 Unknown [id number] 1959 Unknown [id number] 1959 Unknown [id number] 1960 Unknown [id number] 1960 Unknown [id number] 1960 Unknown [id number] [id number] 1960 Unknown [id number] 1960 Unknown [id number] Medicare Medicare [id number] Private Health Insurance [employer] [facility] PFFS G [id number] Unknown [id number] Unknown [id number] Unknown MMO [employer] [id number] Unknown Regular Insurance [id number] Social History Date Type Detail Facility Start: 12-22-2021 Heavy tobacco smoker (finding) [facility] [place] Female [facility] Start: 07-31-2023 End: 10-13-2023 Tobacco smoking status NHIS Smoker (finding) [facility] Start: 1960 Sex Assigned At Female F [facility] Functional Status Date Assessment Result Facility 12-22-2021 N/A General Surgery [place] Clinical Notes 12-22-2021 to 02-23-2024 Note Date & Type Note Facility 02-23-2024 Note Patient Education Ma terials Name: Cristine Manley Current Date: 02/23/2024 07:10:10 [place] : 1960 The following sheet(s) are the Patient Education Leaflets for Cristine Manley IMAGING DISCHARGE INSTRUCTIONS Lumbar Puncture/Myelogram DISCHARGE INSTRUCTIONS Do not drive, operate machinery or drink alcohol until tomorrow a.m. Do not smoke today. Stay with a responsible adult tonight if at all possible Do not make any legal or important decisions for 24 hours SPECIAL INSTRUCTION Activity: No lifting for 24 hours. Avoid straining with bowel movements. Bed rest for today. May resume regular activity after 24 hours. Diet: Drink plenty of fluids. May resume your previous diet. Procedure Site Care: Keep dressing clean and dry for 24 hours. You may change or remove your dressing the next day. You may shower the next day. Specific Procedure Information: The procedure you have had today was called a (an) . If you experience sudden onset of extreme headache, nausea, and or vomiting call the provider that ordered the test or go straight to your local emergency department. FOLLOW UP CARE If you have any questions or problems regarding your procedure, like abnormal bleeding or bruising to procedure site, abnormal drainage from the procedure site or increased fever, please call the health care provider that order the test or go straight to your local emergency department. Please follow up with for continued care. Thank you for choosing [facility] for your care. [facility] 01-12-2022 Note OPERATIVE NOTE OPERATION DATE: 01/12/2022 [...] the polyp. CC: Celia Garrison M.D. [facility] 12-22-2021 Note Chief Complaint consultation for epigastric [...] obstructive pulmonary dise (more content not included)... [facility] Comment on above: Result Comment: Elec tronically Signed By: RAJINDER TAVERAS, Mihaela Trujillo\Date and Time Signed: 12/22/21 17:34 EDT Evaluation + Plan note No data available for this section General Surgery [place] Evaluation note Diagnosis Onset Date Lumbar radiculopathy, chronic acute [facility] Work Phone: Evaluation note* Diagnosis Onset Date Resolution Status Lumbar radiculopathy, chronic acute Headache acute Joint pain acute Tick bite acute [facility] Work Phone: Evaluation note* Diagnosis Onset Date Resolution Status Headache acute Joint pain acute Tick bite acute Chronic obstructive pulmonary disease, unspecified acute Lumbar radiculopathy, chronic acute [facility] Work Phone: Evaluation note* Diagnosis Onset Date Resolution Status Chronic obstructive pulmonary disease, unspecified acute Lumbar radiculopathy, chronic acute Bilateral knee pain acute COPD exacerbation acute Lumbar pain acute Lumbar radiculopathy, chronic acute Bilateral knee pain acute Primary osteoarthritis of both knees acute [facility] Work Phone: Evaluation note* Diagnosis Onset Date Resolution Status Bilateral knee pain acute COPD exacerbation acute Lumbar pain acute Lumbar radiculopathy, chronic acute Bilateral knee pain acute Primary osteoarthritis of both knees acute Menopause acute [facility] Work Phone: Hospital Discharge instructions No data available for this section General Surgery [place] Progress note No data available for this section [facility] [place] Summary Purpose Family History No Family History [...] Date/ Time Advance Directives No July 30 9:55am Chief Complaint and Reason for Visit [...] - Pain in right knee CONSULT DR. BLADIMIR TIRADO KNEE PAIN, NX Reason for Visit Chronic obstructive pulmonary disease, unspecified Lumbar radiculopathy, chronic Bilateral knee pain COPD exacerbation Lumbar pain Lumbar radiculopathy, chronic Bilateral knee pain Primary osteoarthritis of both knees Chief Complaint Back Issues/Knee Lindsay n M25.561 - Pain in right knee CONSULT DR. BLADIMIR TIRADO KNEE PAIN, NX CC Adult Risk Stratification Fracture f/u/Discuss-HIGH RISK Reason for Visit Bilateral knee pain COPD exacerbation Lumbar pain Lumbar radiculopathy, chronic Bilateral knee pain Primary osteoarthritis of both knees Menopause Additional Source Comments Care Team (unrecognized sect [...] End: October 13, 2023 Brittanie Siu APRN [employer]-C Attending Provider Act onesimo Start: October 13, [...] Active Start: January 19, 2024 Delvin Campbell , Attending Provider Active S tart: January 19, [...] January 24, 2024 End: January 24, 2024 Team Status: Active Member Role Status Dates Celia Garrison MD Primary Care Provider Active Start: January 19, 2024 Geoff Rock DO Attending Provider Active Sta rt: January 19, 2024 Team Status: Active Member Role Status Dates Celia Garrison MD Primary Care Provide r, Attending Provider Active Start: February 07, 2024 Team Status: Inactive Member Role Status Dates Celia Garrison MD Primary Care Provide r, Attending Provider Active Start: February 08, 2024 End: February 08, 2024 INFORMATION SOURCE (unrecogn ized section and content) DATE CREATED AUTHOR 02/21/2022 [facility] DATE CREATED AUTHOR AUTHOR'S ORGANIZ ATION 04/01/[address] [facility] DATE CREATED AUTHOR AUTHOR'S ORGANIZ ATION 03/07/2024 [facility] DATE CREATED AUTHOR AUTHOR'S ORGANIZ ATION 03/07/2024 [facility] Goals (unrecognized section and content) Goals may [...] BE BASED ON THE PRIMARY CLINICAL RECORDS. [facility]. provides no warranty or guarantee of the accuracy or completeness of information in this document.
== END 2024-03-21 08:07 | disposition home or self-care (01) ==
LOC: RAD 08:06
PROVIDERS: PCP Family Medicine; Visit Provider Family Medicine
DX: F17.219 Nicotine dependence, cigarettes, with unspecified nicotine-induced disorders (principal); J45.40 Moderate persistent asthma, uncomplicated; Z78.0 Asymptomatic menopausal state; M81.0 Age-related osteoporosis without current pathological fracture
CPT/HCPCS: 71271; 77080

== ENCOUNTER 2024-03-21 08:07 | Outpatient (OUT) | payer MEDICARE, OTHER, SELFPAY ==
--- NOTE | 2024-03-21 08:11 | CT_ITS ---
[address] [address] Patient Name: KARLENE JIMENEZ MRN: [id number] date: 1960 Sex: F Assigned Patient Location: CT Current Patient Location: RAD Accession/Order Number: [id number] Exam Date: 03/21/2024 08:20 Report Date: 03/25/2024 11:47 At the request of: LAY DIMAS Procedure: CT lung screening low-dose EXAMINATION: CT lung screening low-dose HISTORY: Nicotine Dependence, Screening For Malignant Neoplasm Lung COMPARISON: No relevant comparison available. TECHNIQUE: Axial, Coronal, and Sagittal images were created without the administration of IV contrast material. Dose reduction techniques were achieved by using automated exposure control and/or adjustment of mA and/or kV according to patient size and/or use of iterative reconstruction technique. FINDINGS: LUNGS: Patchy infiltrate identified in the right upper lobe likely pleural parenchymal scarring. A few scattered pulmonary nodules are noted measuring up to 3 mm. PLEURA: No mass, effusion, or pneumothorax. VASCULATURE: No abnormality. JUNO: No mass or pathologic adenopathy. MEDIASTINUM: No mass or pathologic adenopathy. Asymmetrically enlarged right thyroid gland with absent left CARDIAC: No enlargement, pericardial thickening, or significant calcification. CORONARY ARTERIES: Coronary calcifcations are absent. AORTA: No aortic aneurysm. Moderate calcific atherosclerosis CHEST WALL: No mass or axillary adenopathy BONES: Subacute right fourth through seventh rib fractures Moderate degenerative change LIMITED ABDOMEN: No suspicious findings. Limited images of the upper abdomen. OTHER: Negative. CT/CT lung screening low-dose IMPRESSION: LUNG SCREENING: Lung-RADS Category 2- Benign Appearance or Behavior. Nodules with a very low likelihood of becoming a clinically active cancer due to size or lack of growth. 2. Continue annual screening with LDCT in 12 months. Electronically authenticated by: KELLY MAXWELL Date: 03/25/2024 11:47
[2024-03-21 09:57] LABS: Basophils Absolute Auto 0.1 10^3/uL (0.0-0.1); Basophils Percent Auto 0.6 % (0.2-2.0); Eosinophils Absolute Auto 0.1 10^3/uL (0.0-0.7); Eosinophils Percent Auto 1.3 % (0.9-7.0); Hematocrit 41.5 % (36.0-48.0); Hemoglobin 13.3 g/dL (12.0-16.0); Immature Granulocytes Abs Auto 0.01 10^3/uL (0.00-0.03); Immature Granulocytes Pct Auto 0.1 % (0.0-0.5); Lymphocytes Absolute Auto 1.9 10^3/uL (1.2-3.8); Lymphocytes Percent Auto 18.9 % (20.5-60.0); Mean Corpuscular Hemoglobin 29.4 pg (26.7-34.0); Mean Corpuscular Volume 91.6 fL (81.0-99.0); Mean Platelet Volume 9.9 fL (9.5-13.5); Monocytes Absolute Auto 0.7 10^3/uL (0.3-0.8); Neutrophils Absolute Auto 7.2 10^3/uL (1.4-6.5); Neutrophils Percent Auto 72.1 % (43.0-75.0); Platelet Count 294 10^3/uL (150-450); Red Blood Count 4.53 10^6/uL (4.20-5.40); Red Cell Distribution Width 12.9 % (11.0-15.0)
== END 2024-03-21 08:08 | disposition home or self-care (01) ==
LOC: CT 08:07
PROVIDERS: PCP Family Medicine; Visit Provider Internal Medicine
DX: F17.219 Nicotine dependence, cigarettes, with unspecified nicotine-induced disorders (principal); Z12.2 Encounter for screening for malignant neoplasm of respiratory organs; J45.40 Moderate persistent asthma, uncomplicated
CPT/HCPCS: 36415; 71271; 82785; 85025

== ENCOUNTER 2024-04-05 13:45 | Outpatient (OUT) | payer MEDICARE, OTHER, SELFPAY ==
--- NOTE | 2024-04-05 13:49 | US_ITS ---
The [address] [address] Patient Name: KARLENE JIMENEZ MRN: [id number] date: 1960 Sex: F Assigned Patient Location: Current Patient Location: Accession/Order Number: [id number] Exam Date: 04/05/2024 14:00 Report Date: 04/08/2024 12:57 At the request of: CORNELIUS GARRISON Procedure: US thyroid EXAMINATION: US thyroid HISTORY: Nodule Right Thyroid Lobe COMPARISON: No relevant comparison available. FINDINGS: RIGHT LOBE: Enlarged, heterogeneous and contains a 1.4 cm TR 3 nodule within superior pole and a 2.8 cm TR 3 nodule within inferior pole. Lobe size: 6.2 x 2.7 x 2.4 cm LEFT LOBE: Absent. ISTHMUS: Normal size and echotexture. Thickness: 2 mm US/US thyroid IMPRESSION: 1. Enlarged heterogeneous right thyroid lobe containing a 2.8 cm TR 3 nodule. Ultrasound-guided fine-needle aspiration should be considered. 2. No appreciable left thyroid lobe. TR3 (mildly suspicious): > 1.5 cm, follow-up ultrasound in 1, 3, and 5 years. > 2.5 cm, fine needle aspiration. Electronically authenticated by: CONY NEWTON Date: 04/08/2024 12:57
--- NOTE | 2024-04-05 13:49 | US_ITS ---
The [address] [address] Patient Name: KARLENE JIMENEZ MRN: [id number] date: 1960 Sex: F Assigned Patient Location: Current Patient Location: Accession/Order Number: [id number] Exam Date: 04/05/2024 14:00 Report Date: 04/05/2024 16:57 At the request of: OCRNELIUS GARRISON Procedure: US venous doppler LE RT CLINICAL DATA: Leg pain. PROCEDURE: Right lower extremity venous duplex ultrasound. TECHNIQUE: Schwarz-scale, color flow, and waveform spectral analysis was performed of the right lower extremity. FINDINGS: The right common femoral, profunda femoral, femoral, and popliteal veins were compressible. The saphenous vein was compressible. No venous thrombosis was seen. The veins fill with color Doppler. Augmentation was normal. Note is made of a popliteal fossa cyst measuring 4.5 x 0.9 x 1.6 cm. US/US venous doppler LE RT IMPRESSION: 1. No acute lower extremity deep venous thrombosis. 2. No superficial venous thrombosis. Electronically authenticated by: Mitch ALLEN Date: 04/05/2024 16:57
--- OUTSIDE RECORDS SUMMARY | 2024-04-05 13:51 | XMS_ITS | CCD ---
Author Organization [facility] Care Team Providers Care Banquet Cook Name Role Phone CELIA GARRISON Primary Care Physician BLADIMIR PROVIDER, CELIA Referring Unavailab le NILL, Mihaela Michelle Attending [...] Unavailable MD Celia Garrison Primary Care Provider [phone] DO Alexandro Galvez Attending Provider Alexandro Galvez Admitting Unavailable Celia Garrison Primary Care Unavailable Alexandro Galvez Attending Unavailable Celia Garrison Attending Unavailable Celia Garrison Primary Care Unavailable Celia Garrison Admitting Unavailable Bladimir TAVERAS, Celia Whyte Primary Care Unava ilable Adis PA-C, Ofelia Grace Attending Unavailab le Adis PA-C, Ofelia Grace Attending Unavailab le Adis PA-C, Ofelia Grace Admitting Unavailab Tuan TAVERAS, Celia Whyte Primary Care Unava ilable Adis DEMARCUS, Ofelia Grace Attending Unavailab Tuan TAVERAS, Celia Whyte [facility] Care Unava ilable Adis PA-C, Ofelia Grace Attending UnavailCelia Rascon MD Primary Care Unava ilable Adis DEMARCUS, Ofelia Grace Attending Unavailab Tuan TAVERAS, Celia hWyte Referring Abhi Garrison MD, Celia Whyte Primary Care Abhi Garrison MD, Celia Primary Care Provider King NITIN, Ofelia Unavailable KANE PEREZ Attending Unavailable OFELIA ARCEO Referring Unavailable Allergies Allergy Classification Reported Allergen(s) Allergy Type Date of Onset Reaction(s) Facility (3 sources) Acetaminophen / oxyCODONE; Translations: [acetaminophen-oxy codone] Drug Allergy Nausea (finding) [facility] (3 sources) Alendronate; Translations: [alendronate] Drug Allergy Muscle pain (finding) [facility] (10 sources) Clarithromycin; Translations: [clarithromycin] Drug Allergy 07-31-19 Unknown (qualifier value) [facility] (11 sources) levoFLOXacin; Translations: [levofloxacin] Drug Allergy 07-31-19 Eruption of skin (disorder) [facility] Surgery [place] (4 sources) Sulfonamides (Antibiotic); Translations: [sulfa drugs] Drug allergy Unknown (qualifier value) [facility] Surgery [place] (1 source) Acetaminophen / oxyCODONE Drug Allergy 03-25-20 16 [facility] (1 source) Alendronate Drug Allergy 03-18-20 16 [facility] (1 source) Clarithromycin Drug Allergy 03-25-20 16 [facility] (1 source) levoFLOXacin Drug Allergy 03-25-20 16 [facility] (1 source) Quinolones (Antibiotic) Drug allergy (disorder) 03-25-20 16 [facility] (1 source) Sulfonamides (Antibiotic) Drug allergy (disorder) 05-01-19 14 [facility] (1 source) Acetaminophen Drug Allergy 07-31-19 24 [facility] (7 sources) Alendronate Drug Allergy 07-31-19 24 [facility] (7 sources) oxyCODONE Drug Allergy 07-31-19 24 [facility] (7 sources) Sulfonamides (Antibiotic) Allergy to substance 07-31-19 Comment:as a young child, pt. cannot recall reaction [facility] (7 sources) Biaxin XL *MACROLIDES* Allergy to substance 07-28-19 [facility] (1 source) Ciprofloxacin; Translations: [Cipro] Drug Allergy [facility] (1 source) symbalta; Translations: [symbalta] Propensity to adverse reactions to drug (disorder) [facility] Medications Current Medications Medication Drug Class(es) Dates Sig (Normalized) Sig (Original) [id number] 200 actuat albuterol 0.09 mg/actuat metered dose [...] Start: 12-17-2021 take 1 tablet by margarito once daily at bedtime amitriptyline 50 mg [...] Propionate Discontinued 1 PUFF INHALATION Twice daily 10.6 January 24, 2024 8:18am February 08, 2024 2:20pm administer with spacer Start: 01-24-2024 take 1 puff(s) by in halation twice daily Fluticasone Propionate Active 1 PUFF INHALATION Twice daily 10.January 24, 2024 8:18am administer with spacer Start: 12-05-2023 End: 01-24-2024 take 1 puff(s) by inhalation twice daily Fluticasone Propionate Discontinued 1 PUFF INHALATION Twice daily 10.December 05, 2023 2:47pm January 24, 2024 8:18am administer with spacer Start: 12-05-2023 take 1 puff(s) by in halation twice daily Fluticasone Propionate Active 1 PUFF INHALATION Twice daily 10.December 05, 2023 2:47pm administer with spacer Start: [...] 01-24-2024 Chronic Other aftercare (1 source) 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; Translations: [OTH FRAME CHANGER CURRENT DRUG THERAPY] Onset: 01-17-2022 Episodic Other bone disease and musculoskeletal deformities (2 sources) Osteopenia 12-17-2021 Episodic Other bone disease and musculoskeletal deformities (1 source) Other specified disorders of bone density and structure, unspecified site; Translations: [OTH D/O BONE DEN STRUCT UNS SITE] Onset: 01-17-2022 Episodic Other nervous system disorders (1 source) Numbness and tingling sensation of skin; Translations: [Anesthesia of skin] 04-01-2024 Episodic Other non-traumatic joint disorders (6 sources) [...] Test Name Value Interpretation Reference Range Facility EMG 2 Extremitieson 04-01-20 EMG/NCS BLE Right L5/S1 radic [place] S1/2 radic [facility] NVC 9-10 Nerveson 04-01-2024 EMG/NCS BLE Right L5/S1 radic [place] S1/2 radic [facility] Provider Letteron 03-26-2024 Provider Letter (Inserted Image. Gela ble to display) Celia Garrison MD [facility] [facility], [place] [address] Re: Cristine Manley Date of Visit: 03/25/2024 Dear Celia Garrison MD, This patient was recently seen in the neurosurgical office. Please see attached note for further details. Let me know if you have any questions or concerns. Sincerely, DEMARCUS Gan Providers: The following document(s) were included in the letter: March 25, 2024 17:40:13 EST - (03/25/2024) Neurosurgery Office Visit Note Normal [facility] Neurosurgery Office/Clinic N oteon 03-25-2024 Neurosurgery Office/Clinic Note Chief Complaint CT thoracic, lumbar, XR lumbar, hips and neck review History of Present Illness The patient is a pleasant 64-year-old right-handed female with history of chronic nicotine use, asthma and recently diagnosed COPD for which she is planned to see a external relations manager in the near future. She also has history of decompression/discectomy T12-L1 by Dr. Ugarte in 2013 with good postoperative benefit. The patient recently presented to the neurosurgical office on behalf of of referral by Dr. Celia Garrison (primary care) regarding low back pain with radiation into the left lower extremity. The patient notes that pain has been chronic in nature, present even before her thoracolumbar surgery in 2013. She returns to the neurosurgical office having undergone additional imaging including thoracolumbar CT myelogram, lumbar flexion/extension x-rays, left hip x-rays as well as x--rays of the cervical spine. Results detailed below. She denies any significant change in symptom profile since the time of her last visit. She describes pain throughout the lumbar area, particularly left sided with radiation into the gluteal area and lateral hip. By the end of the day, she notes that the pain also radiates around the lower abdomen. She describes burning sensation within the left posterior thigh particularly when laying in bed at night. 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 When her hip locks up, she feels that she is unable to get up from where she is laying and finds difficulty walking until the hip pops or releases allowing her to return to normal walking. She describes intermittent cramping in the anteromedial thighs bilaterally, left more so than right. She denies any lower extremity weakness or numbness She denies any catching of her toes [...] extremity radicular pain, numbness, paresthesia or weakness. She denies difficulty with fine motor skills of the hands. She notes thoracic spine pain as well as the above mentioned radiation of pain wrapping around the lower abdomen though denies any associated numbness or paresthesia. Conservative measures: Oral anti-inflammatory medication including ibuprofen and Tylenol with limited benefit. Oral muscle relaxants including tizanidine which helps pain to be more tolerable though does not resolve. Oral narcotics including [place] which makes pain tolerable though does not resolve. Topical agents including lidocaine patches and Bengay with limited benefit. Pain management injection modalities years ago with temporary benefit lasting only a few days. Physical therapy years ago without significant benefit. Chiropractic manipulation x 1 visit without benefit therefore patient never returned. Activity modification [1] Recent imaging (provider interpretation): CT myelogram thoracolumbar spine 02/23/2024 reveals multilevel degenerative disc disease throughout the thoracic spine with vacuum disc phenomenon at multiple levels including T5-6, T9-10, T10-11, T11-12. There is anterior bridging osteophytosis at multiple levels particularly T7-8, T8-9 and T9-10. Varying degrees of neuroforaminal stenosis throughout the thoracic spine particularly right T9-10, left T6-7, T7-8 and T8-9. 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 No significant central canal stenosis or cord compression throughout the thoracic spine. Within the lumbar spine, the patient is found to have fairly well-maintained disc height. There is anterior listhesis L4-5. No significant central canal stenosis throughout the lumbar spine. Moderate right neuroforaminal stenosis L3-4. Multilevel facet arthropathy throughout. Radiology notes a right thyroid heterogeneous density nodule, which should be further correlated sonographically as to significance. The patient is notified of this and given a copy of her radiology report. A copy of this has also been forwarded to her primary care provider for follow-up as deemed appropriate. Lumbar x-rays 02/19/2024 reveals degenerative disc disease more notable L4-5 and L5-S1. There is facet arthropathy throughout the mid to lower thoracic spine. Very limited range of motion without dynamic instability. X-ray cervical spine 02/19/2024 reveals multilevel degenerative disc disease particularly C3-4, C5-6. There is anterior listhesis C2-3 and C4-5. Listhesis increases slightl (more content not included)... [facility] Provider Letteron 02-29-2024 Provider Letter (Inserted Image. Gela ble to display) Celia Whittaker [address] [facility], [facility] [address] Re: Cristine Manley Date of Visit: 02/23/2024 Dear Celia Garrison MD, Please see attached results on this mutual patient you have with [facility] Result Name Current Result CT Spine Thoracic/Lumbar Myelogram w/Con 02/23/2024 Let me know if you have any questions or concerns. Sincerely, Jaclyn Bliss [facility] Clinical Lead Health Book Cleaner C C Providers: Normal [facility] CT Spine Thoracic/Lumbar Mye logram w/Conon 02-27-2024 [...] Electronically Signed in Other Vendor System) Normal [facility] PTon 02-23-2024 INR Coag (PPP) [Relative time] 1.0 {INR} Normal <=3.5 [facility] Comment on above: Result Comment: INR has no normal range. INR Therapeutic range is: 2.0-3.0 (AF, CVA, TIAs, DVT prophylaxis, acute DVT) 2.5-3.5 ([facility] heart valves, recurrent thrombosis/emboli) Performed By: #### P TINR #### [facility] [address] [place] [id number] PT Coag (PPP) [Time] 10.3 s Normal 9.2-12.0 [facility] Comment on above: Performed By: #### P TINR #### [facility] [address] [place] [id number] PTTon 02-23-2024 aPTT Coag (Bld) [Time] 24.8 s Normal 19.5-28.2 [facility] Comment on above: Performed By: #### P TT #### [facility] [address] [place] [address] Platelet Counton 02-23-2024 Platelet 300 x10*3/mcL Normal 150-450 [facility] Comment on above: Performed By: #### P LTS #### [facility] [address] [place] [address] XR Hip 2-3 Views Lefton 02-08 XR [...] Electronically Signed in Other Vendor System) Normal [facility] XR Myelography Spine 2 or Mo re Areason 02-23-2024 XR Myelography Spine 2 or More [...] Electronically Signed in Other Vendor System) Normal [facility] XR Spine Cervical 4 or 5 Vie wson 02-23-2024 XR Spine Cervical 4 or 5 [...] Electronically Signed in Other Vendor System) Normal [facility] XR Spine Lumbosacral Bending 2-3 Viewson 02-23-2024 [...] Electronically Signed in Other Vendor System) Normal [facility] Neurosurgery Office/Clinic N oteon 02-13-2024 Neurosurgery Office/Clinic Note Chief Complaint Back lumbar pain radiculopathy consult History of Present Illness The patient is a pleasant 64-year-old right-handed female with history of chronic nicotine use, asthma and recently diagnosed COPD for which she is planned to see a external relations manager in the near future. She also has [...] though does not resolve. Oral narcotics including [place] which makes pain tolerable though does not [...] Newly diagnosed COPD, scheduled to see a external relations manager in the near future Chronic nicotine use [...] marijuana use. 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 She denies any Worker's Comp. related claims regarding today's visit FAMILY HISTORY: Lung cancer: Father Diabetes mellitus: Mother Hypertension: Mother Review of Systems Constitutional: [No fevers, chills, sweats] Eye: [No recent visual problems] ENMT: [ (more content not included)... [facility] Provider Letteron 02-13-2024 Provider Letter (Inserted Image. Gela ble to display) Celia Garrison MD [facility] [facility], [facility] [address] Re: Cristine Manley Date of Visit: 02/13/2024 Dear Celia Garrison MD, This patient was recently seen in the neurosurgical office. Please see attached note for further details. Let me know if you have any questions or concerns. Sincerely, DEMARCUS Gan Providers: The following document(s) were included in the letter: February 13, 2024 09:39:53 EST - (02/13/2024) Neurosurgery Office Visit Note [facility] XR knee BI 3V - NOT FOR ER U Sanam 01-24-2024 XR knee BI 3V - NOT FOR ER USE [facility] [address] [place] [address] XRay Report Signed Patient: Cristine Manley MR#: [id number] 54 : 1960 Acct:[id number] Age/Sex: 64 / F ADM Date: 01/24/24 Loc: [facility] Room: Type: [facility] Attending Dr: Alexandro Galvez DO Copies [...] Sunday Graham M.D.01/24/2024 3:45 PM Dictation Location: [place] [address] Transcribed By: [facility] 01/24/241544 Dictated By: Sunday Graham II, MD 01/24/24 154 Signed By: 01/24/24 154 Normal [facility] Basophils Auto (Bld) [#/Vol] on 01-19-2024 Basophils (Bld) [#/Vol] 0.0 10 3/uL 0.0-0.1 [facility] Basophils/100 WBC Auto (Bld) on 01-19-2024 Basophils/100 WBC (Bld) 0.2 % 0.2-2.0 [facility] Eosinophils/100 WBC Auto (Bl d)on 01-19-2024 Eosinophils/100 WBC (Bld) 4.3 % 0.9-7.0 [facility] Erythrocyte distribution wid th Auto (RBC) [Ratio]on 01-19-2024 Erythrocyte distribution width (RBC) [Ratio] 13.1 % 11.0-15.0 [facility] Estimated glomerular filtrat ion rate (GFR) non- Americanon 01-19-2024 GFR/1.73 sq M.predicted among non-blacks MDRD (S/P/Bld) [Vol rate/Area] mL/min/{1.73_m2} >=60 mL/min/1.73 m 2 [facility] Fibrin D-dimer [Presence] in Platelet poor plasma by Latex agglutinationon 01-19-2024 Fibrin D-dimer LA Ql (PPP) 0.43 mg/L FEU <=0.59 [facility] Comment on above: Increases in D-Dimer concentration [...] Hematocrit (Bld) [Volume fraction] 39.5 % 36.0-48.0 [facility] Hemoglobin [Mass/volume] in Bloodon 01-19-2024 Hemoglobin (Bld) [Mass/Vol] 12.8 g/dL 12.0-16.0 [facility] Laboratory - Chemistry and C hemistry - challengeon 01-19-2024 Calcium [Mass/Vol] 9.0 mg/dL 8.5-10.1 [facility] Chloride [Moles/Vol] 105 mmol/L 98-107 [facility] CO2 [Moles/Vol] 28.7 mmol/L 21.0-32.0 [facility] Creatinine [Mass/Vol] 0.92 mg/dL 0.55-1.02 [facility] GFR/1.73 sq M.predicted MDRD (S/P/Bld) [Vol rate/Area] mL/min/{1.73_m2} >=60 mL/min/1.73 m 2 [facility] Glucose [Mass/Vol] 78 mg/dL 74-106 [facility] Potassium [Moles/Vol] 4.0 mmol/L 3.5-5.1 [facility] Sodium [Moles/Vol] 138 mmol/L 136-145 [facility] Urea nitrogen [Mass/Vol] 27.0 mg/dL High 7.0-18.0 [facility] Urea nitrogen/Creatinin e [Mass ratio] 29.3 mg/mg [facility] Laboratory - Hematology and Cell countson 01-19-2024 Immature granulocytes/100 WBC (Bld) 0.3 % 0.0-0.5 [facility] Laboratory - Microbiology an d Antimicrobial susceptibilityon 01-19-2024 SARS-CoV-2 (COVID-19) RNA JOSELUIS+probe Ql (Unsp spec) Negative NEGATIVE [facility] Comment on above: This test has not [...] of Covid-19 under section 564(b)(1) of theAct, U.S.C. 360bbb-3(b)(1), unless the declaration isterminated or authorization is revoked sooner. Leukocytes [#/volume] correc shant for nucleated erythrocytes in Blood by Automated counon 01-19-2024 WBC corrected for nucl RBC Auto (Bld) [#/Vol] 12.6 10 3/uL High 4.0-11.0 [facility] Lymphocytes Auto (Bld) [#/Vo l]on 01-19-2024 Lymphocytes (Bld) [#/Vol] 4.4 10 3/uL High 1.2-3.8 [facility] Lymphocytes/100 WBC Auto (Bl d)on 01-19-2024 Lymphocytes/100 WBC (Bld) 35.0 % 20.5-60.0 [facility] MCH Auto (RBC) [Entitic mass ]on 01-19-2024 MCH (RBC) [Entitic mass] 29.4 pg 26.7-34.0 [facility] MCHC Auto (RBC) [Mass/Vol]on 01-19-2024 MCHC (RBC) [Mass/Vol] 32.4 g/dL 29.9-35.2 [facility] MCV Auto (RBC) [Entitic vol] on 01-19-2024 MCV (RBC) [Entitic vol] 90.6 fL 81.0-99.0 [facility] Monocytes Auto (Bld) [#/Vol] on 01-19-2024 Monocytes (Bld) [#/Vol] 1.2 10 3/uL High 0.3-0.8 [facility] Monocytes/100 WBC Auto (Bld) on 01-19-2024 Monocytes/100 WBC (Bld) 9.5 % 1.7-12.0 [facility] Neutrophils Auto (Bld) [#/Vo l]on 01-19-2024 Neutrophils (Bld) [#/Vol] 6.4 10 3/uL 1.4-6.5 [facility] Neutrophils/100 WBC Auto (Bl d)on 01-19-2024 Neutrophils/100 WBC (Bld) 50.7 % 43.0-75.0 [facility] No Panel Informationon 01-18 Bedside Influenza Type A Antigen Negative [facility] Comment on above: Negative for Flu A p rotein antigen. Infection due to Flu Acannot be ruled out. Flu A antigen in the sample may bebelow the detection limit of the test. Bedside Influenza Type B Antigen Negative [facility] Comment on above: Negative for Flu B p rotein antigen. Infection due to Flu Bcannot be ruled out. Flu B antigen in the sample may bebelow the detection limit of the test. Eosinophils # (Auto) 0.5 10 3/uL 0.0-0.7 [facility] Immature Granulocyte # (Auto) 0.04 10 3/uL High 0.00-0.03 [facility] Troponin I High Sensitivity 5.8 pg/mL 4.0-51.3 [facility] Comment on above: CUT-OFF POINTS HAVE BEEN [...] (Bld) [Entitic vol] 9.3 fL Low 9.5-13.5 [facility] Platelets Auto (Bld) [#/Vol] on 01-19-2024 Platelets (Bld) [#/Vol] 304 10 3/uL 150-450 [facility] RBC Auto (Bld) [#/Vol]on RBC (Bld) [#/Vol] 4.36 10 6/uL 4.20-5.40 [facility] Serum or plasma anion gap de terminationon 01-19-2024 Anion gap [Moles/Vol] 8.3 mmol/L [facility] Borrelia burgdorferi IgG+IgM Ab [Presence] in Serum by Immunoassayon 10-13-2023 B. burgdorferi IgG+IgM IA Ql (S) Negative Negative [facility] Comment on above: Lyme antibodies not detected. Reflex testing is notindicated.No laboratory evidence of infection with B. burgdorferi(Lyme disease). Negative results may occur in patientsrecently infected (less than or equal to 14 days) with B.burgdorferi. If recent infection is suspected, repeattesting on a new sample collected in 7 to 14 days isrecommended.Performed at: [facility] [id number] Director: Jeovany Bazan PhD, Phone: [phone] General Surgery Office/Clini c Noteon 02-21-2022 General [...] Primary malignant neoplasm of lung: Father. Normal [facility] Comment on above: Result Comment: Elec tronically Signed By: RAJINDER TAVERAS, Mihaela Michelle\.br\Date and Time Signed: 02/21/22 16:42 EST Ambulatory [...] Tobacco user Very low density lipoprotinemia Normal [facility] Reminderson 02-01-2022 Reminders - From: Sushma Shell LPN To: N - Clinical; Sent: 02/01/2022 16:18:52 EDT Show up: 04/12/2022 07:00:00 EST Subject: EGD recall Due Date/Time: 05/04/2022 07:00:00 EST Reminder/Recall Patient is due to repeat EGD 05/04/2022 due to gastric ulcer. Normal [facility] Outside Colonoscopyon 2021 Outside Colonoscopy [id number]#[id number]:127 Normal [facility] Pathology Noteon 01-14-2022 Pathology Note [id number]#1.00CD:127 Normal [facility] Reminderson 01-14-2022 Reminders - From: Sushma Shell LPN To: N - Clinical; Sent: 01/14/2022 08:07:35 EDT Show up: 12/14/2031 07:00:00 EDT Subject: colonoscopy recall Due Date/Time: 01/13/2032 07:00:00 EDT Reminder/Recall Patient is due for screening colonoscopy 01/13/2032. Normal [facility] Pre-Certification Formon Pre-Certification Form [id number]#1.00CD:127 [facility] Lab Reportson 01-11-2022 Lab Reports [id number]#1.00CD:127 [facility] SARS-CoV-2 (COVID-19) RNA JOSELUIS+probe Ql (Unsp spec) Not detected Normal NOT DETECTED [facility] Comment on above: Result Comment: This test is not yet approved or cleared by the [place] FDA. When there are no FDA-approved or cleared tests available, and other criteria are met, FDA can make tests available under an emergency access mechanism called an Emergency Use Authorization (EUA). The EUA for this test is supported by the [employer] Engraver of Health and Human Service's (HHS's) declaration [...] consistent with SARS-CoV-2. Performed By: #### [facility] #### [facility] [address] [place] [address] Dr. Pablo Sheth Physician Orderon 12-23-2021 Physician Order [id number]:127 Normal [facility] Ambulatory Visit Summaryon 0 12-22-2021 Ambulatory Visit [...] Tobacco user Very low density lipoprotinemia Normal [facility] CBC AUTO DIFFon 12-17-2021 BASO # 0.1 103/ul Normal 0.0-0.1 [facility] Comment on above: Performed By: #### D ATCBC #### [facility] [address] [place] [address] [address] Pablo Sheth Basophils/100 WBC (Bld) 0.4 % Normal 0.2-2.0 [facility] Comment on above: Performed By: #### D ATCBC #### [facility] [address] [place] [address] [address] Pablo Sheth EO # 0.3 103/ul Normal 0.0-0.7 [facility] Comment on above: Performed By: #### D ATCBC #### [facility] [address] [place] [address] Dr. Pablo Sheth Eosinophils/100 WBC (Bld) 2.4 % Normal 0.9-7.0 [facility] Comment on above: Performed By: #### D ATCBC #### [facility] [address] [place] [address] Dr. Pablo Sheth Erythrocyte distribution width (RBC) [Ratio] 13.2 % Normal 11.0-15.0 [facility] Comment on above: Performed By: #### D ATCBC #### [facility] [address] [place] [address] Dr. Pablo Sheth Hematocrit (Bld) [Volume fraction] 42.6 % Normal 36.0-48.0 [facility] Comment on above: Performed By: #### D ATCBC #### [facility] [address] [place] [address] Dr. Pablo Sheth Hemoglobin (Bld) [Mass/Vol] 13.7 g/dL Normal 12.0-16.0 [facility] Comment on above: Performed By: #### D ATCBC #### [facility] [address] [place] [address] Dr. Pablo Sheth IG # 0.05 10e3/ul Critically high 0.00-0.03 [facility] Comment on above: Performed By: #### D ATCBC #### [facility] [address] [place] [address] Dr. Pablo Sheth IG % 0.4 % Normal 0.0-0.5 [facility] Comment on above: Performed By: #### D ATCBC #### [facility] [address] [place] [address] Dr. Pablo Sheth LYMPH # 2.8 103/ul Normal 1.2-3.8 [facility] Comment on above: Performed By: #### D ATCBC #### [facility] [address] [place] [address] Dr. Pablo Sheth Lymphocytes/100 WBC (Bld) 20.9 % Normal 20.5-60.0 [facility] Comment on above: Performed By: #### D ATCBC #### [facility] [address] [place] [address] Dr. Pablo Sheth MCH (RBC) [Entitic mass] 29.2 pg Normal 26.7-34.0 [facility] Comment on above: Performed By: #### D ATCBC #### [facility] [address] [address] [address] Pablo Sheth MCHC (RBC) [Mass/Vol] 32.2 g/dL Normal 29.9-35.2 [facility] Comment on above: Performed By: #### D ATCBC #### [facility] [address] [address] [address] Pablo Sheth MCV (RBC) [Entitic vol] 90.8 fL Normal 81.0-99.0 [facility] Comment on above: Performed By: #### D ATCBC #### [facility] [address] [address] [address] Pablo Sheth MONO # 1.0 103/ul Critically high 0.3-0.8 [facility] Comment on above: Performed By: #### D ATCBC #### [facility] [address] [address] [address] Pablo Sheth Monocytes/100 WBC (Bld) 7.5 % Normal 1.7-12.0 [facility] Comment on above: Performed By: #### D ATCBC #### [facility] [address] [address] [address] Pablo Sheth NEUT # 9.2 103/ul Critically high 1.4-6.5 [facility] Comment on above: Performed By: #### D ATCBC #### [facility] [address] [address] [address] Pablo Sheth Neutrophils/100 WBC (Bld) 68.4 % Normal 43.0-75.0 [facility] Comment on above: Performed By: #### D ATCBC #### [facility] [address] [address] [address] Pablo Sheth Platelet mean volume (Bld) [Entitic vol] 9.3 fL Critically low 9.5-13.5 [facility] Comment on above: Performed By: #### D ATCBC #### [facility] [address] [address] [address] Pablo Sheth PLT 313 103/ul Normal 150-450 [facility] Comment on above: Performed By: #### D ATCBC #### [facility] [address] [place] [address] Dr. Pablo Sheth RBC 4.69 106/ul Normal 4.20-5.40 [facility] Comment on above: Performed By: #### D ATCBC #### [facility] [address] [place] [address] Dr. Pablo Sheth WBC 13.4 103/ul Critically high 4.0-11.0 [facility] Comment on above: Performed By: #### D ATCBC #### [facility] [address] [place] [address] Dr. Pablo Sheth BERKLEY - TSHon 12-17-2021 TSH 1.241 uIU/mL Normal 0.358-3.740 [facility] Comment on above: Performed By: #### D ATTSH DATBMP #### [facility] [address] [place] [address] Dr. Pablo Sheth TSH RANGE SEE BELOW Normal [facility] Comment on above: Result Comment: <0.3 4 UIU/ml HYPERTHYROID 0.34-5.60 UIU/ml EUTHYROID >5.60 UIU/ml HYPOTHYROID Performed By: #### D ATTSH, DATBMP #### [facility] [address] [place] [address] Dr. Pablo Sheth BERKLEY- BMP WITH LIPIDon 2021 Anion gap [Moles/Vol] 11.9 mmol/L Normal [facility] Comment on above: Performed By: #### D ATTSH, DATBMP #### [facility] [address] [place] [address] Dr. Pablo Sheth Calcium [Mass/Vol] 9.1 mg/dL Normal 8.5-10.1 [facility] Comment on above: Performed By: #### D ATTSH, DATBMP #### [facility] [address] [place] [address] Dr. Pablo Sheth Chloride [Moles/Vol] 104 mmol/L Normal 98-107 [facility] Comment on above: Performed By: #### D ATTSH, DATBMP #### [facility] [address] [address] [address] Pablo Sheth Cholesterol [Mass/Vol] 207 mg/dL Critically high <=200 [facility] Comment on above: Performed By: #### D ATTSH, DATBMP #### [facility] [address] [address] [address] Pablo Sheth Cholesterol in HDL [Mass/Vol] 52 mg/dL Normal 40-60 [facility] Comment on above: Performed By: #### D ATTSH, DATBMP #### [facility] [address] [address] [address] Pablo Sheth Cholesterol in LDL [Mass/Vol] 141.4 mg/dL Normal [facility] Comment on above: Performed By: #### D ATTSH, DATBMP #### [facility] [address] [place] [address] Dr. Pablo Sheth CO2 [Moles/Vol] 29.3 mmol/L Normal 21.0-32.0 [facility] Comment on above: Performed By: #### D ATTSH, DATBMP #### [facility] [address] [address] [address] Pablo Sheth Creatinine [Mass/Vol] 0.77 mg/dL Normal 0.55-1.02 [facility] Comment on above: Performed By: #### D ATTSH, DATBMP #### [facility] [address] [address] [address] Pablo Sheth EGFR-AF BAHAMIAN >60 Normal >=60 [facility] Comment on above: Performed By: #### D ATTSH, DATBMP #### [facility] [address] [address] [address] Pablo Sheth EGFR-NON AF BAHAMIAN >60 Normal >=60 [facility] Comment on above: Performed By: #### D ATTSH, DATBMP #### [facility] [address] [address] [address] Pablo Sheth Glucose [Mass/Vol] 109 mg/dL Critically high 74-106 [facility] Comment on above: Performed By: #### D ATTSH, DATBMP #### [facility] [address] [address] [address] Pablo Sheth HDL NORMAL > or = 60 mg/dl - LO W CARDIOVASCULAR RISK <40 mg/dl - HIGH CARDIOVASCULAR RISK Normal [facility] Comment on above: Performed By: #### D ATTSH, DATBMP #### [facility] [address] [address] [address] Pablo Sheth LDL CALC NORMAL SEE BELOW Normal [facility] Comment on above: Result Comment: <100 mg/dl OPTIMAL 100 - 129 mg/dl NEAR OR ABOVE OPTIMAL 130 - 159 mg/dl BORDERLINE HIGH 160 - 189 mg/dl HIGH >190 mg/dl VERY HIGH Performed By: #### D ATTTONYA, DATBMP #### [facility] [address] [address] [address] Pablo Sheth Potassium [Moles/Vol] 4.2 mmol/L Normal 3.5-5.1 [facility] Comment on above: Performed By: #### D ATTSH, DATBMP #### [facility] [address] [address] [address] Pablo Sheth Sodium [Moles/Vol] 141 mmol/L Normal 136-145 [facility] Comment on above: Performed By: #### D ATTSH, DATBMP #### [facility] [address] [address] [address] Pablo Sheth Triglyceride [Mass/Vol] 68 mg/dL Normal <=150 [facility] Comment on above: Performed By: #### D ATTSH, DATBMP #### [facility] [address] [address] [address] Pablo Sheth Urea nitrogen [Mass/Vol] 26.0 mg/dL Critically high 7.0-18.0 [facility] Comment on above: Performed By: #### D ATTSH, DATBMP #### [facility] [address] [address] [address] Pablo Sheth Urea nitrogen/Creatinin e [Mass ratio] 33.8 mg/mg Normal [facility] Comment on above: Performed By: #### D ATTSH, DATBMP #### [facility] [address] [address] [address] Pablo Sheth VLDL CALC 13.6 mg/dL Normal [facility] Comment on above: Performed By: #### D ATTSH, DATBMP #### [facility] [id number] Pablo Sheth Physician Referralon Physician Referral [id number]:[id number] Normal [facility] Vital Signs Date Time Vital Sign Value Performing Clinician Faci lity 02-08-2024 13:55-0400 Body height 170.18 cm MD Celia Garrison Work Phone: [facility] 02-08-2024 13:55-0400 Body mass index (BMI) [Ratio] 27.9 kg/m2 MD Celia Garrison Work Phone: [facility] 02-08-2024 13:55-0400 Body weight 80.9 kg MD Celia Garrison Work Phone: [facility] 02-08-2024 13:55-0400 Diastolic blood pressure 78 mm[Hg] MD Celia Garrison Work Phone: [facility] 02-08-2024 13:55-0400 Heart rate 74 /min MD Celia Garrison Work Phone: [facility] 02-08-2024 13:55-0400 SaO2% (BldA) [Mass fraction] 96 % MD Celia Garrison Work Phone: [facility] 02-08-2024 13:55-0400 Systolic blood pressure 110 mm[Hg] MD Celia Garrison Work Phone: [facility] 01-24-2024 14:35-0400 Body height 170.18 cm MD Celia Garrison Work Phone: [facility] 01-24-2024 14:35-0400 Body mass index (BMI) [Ratio] 28.3 kg/m2 MD Celia Garrison Work Phone: [facility] 01-24-2024 14:35-0400 Body weight 82.21 kg MD Celia Garrison Work Phone: [facility] 01-09-2024 15:17-0400 Body height 167.64 cm [facility] 01-09-2024 15:17-0400 Body mass index (BMI) [Ratio] 28.2 kg/m2 [facility] 01-09-2024 15:17-0400 Body weight 79.37 kg [facility] 01-09-2024 15:17-0400 Diastolic blood pressure 91 mm[Hg] [facility] 01-09-2024 15:17-0400 Heart rate 76 /min [facility] 01-09-2024 15:17-0400 SaO2% (BldA) [Mass fraction] 97 % [facility] 01-09-2024 15:17-0400 Systolic blood pressure 135 mm[Hg] [facility] 11-01-2023 08:57-0400 Body height 167.64 cm [facility] 11-01-2023 08:57-0400 Body mass index (BMI) [Ratio] 28.2 kg/m2 [facility] 11-01-2023 08:57-0400 Body weight 79.37 kg [facility] 11-01-2023 08:57-0400 Diastolic blood pressure 90 mm[Hg] [facility] 11-01-2023 08:57-0400 Heart rate 63 /min [facility] 11-01-2023 08:57-0400 Systolic blood pressure 136 mm[Hg] [facility] 10-13-2023 09:19-0400 Body height 167.64 cm [facility] 10-13-2023 09:19-0400 Body mass index (BMI) [Ratio] 28 kg/m2 [facility] 10-13-2023 09:19-0400 Body weight 78.92 kg [facility] 10-13-2023 09:19-0400 Diastolic blood pressure 76 mm[Hg] [facility] 10-13-2023 09:19-0400 Heart rate 78 /min [facility] 10-13-2023 09:19-0400 SaO2% (BldA) [Mass fraction] 98 % [facility] 10-13-2023 09:19-0400 Systolic blood pressure 118 mm[Hg] [facility] 07-31-2023 10:09-0400 Body height 167.64 cm [facility] 07-31-2023 10:09-0400 Body mass index (BMI) [Ratio] 28.8 kg/m2 [facility] 07-31-2023 10:09-0400 Body weight 80.9 kg [facility] 07-31-2023 10:09-0400 Diastolic blood pressure 89 mm[Hg] [facility] 07-31-2023 10:09-0400 Heart rate 74 /min [facility] 07-31-2023 10:09-0400 Systolic blood pressure 138 mm[Hg] [facility] 12-22-2021 14:20-0400 Blood Pressure Location Mihaela CASAS [facility] [place] 12-22-2021 14:20-0400 Diastolic blood pressure 80 mm[Hg] Mihaela CASAS [facility] [place] 12-22-2021 14:20-0400 Heart rate 72 /min Mihaela CASAS [facility] [place] 12-22-2021 14:20-0400 Respiratory rate 16 /min Mihaela CASAS [facility] [place] 12-22-2021 14:20-0400 Systolic blood pressure 116 mm[Hg] Mihaela CASAS [facility] [place] Encounters Encounter Date Encounter Type Care Provider Facility Start: 04-01-2024 End: 04-01-2024 Patient encounter procedure Kane Perez DO Work Phone: [facility] Comment on above: Lumbosacral radiculo bakari (Primary Dx); Numbness and tingling Start: 04-01-2024 End: 04-01-2024 ambulatory KANE ANA Not Available Start: 04-01-2024 End: 04-01-2024 Bamboo flowsheet Kane Ana DO Work Phone: [facility] Start: 04-01-2024 End: 04-01-2024 Bamboo flowsheet Kane Ana DO Work Phone: [facility] Start: 03-25-2024 End: 03-25-[address] [facility] Facility:[facility] Start: 03-04-2024 End: 03-04-2024 ambulatory Celia Garrison Facility:[facility] Start: 02-23-2024 End: 02-23-[address] [facility] Facility:[facility] Start: 02-19-2024 End: 02-19-[address] [facility] Facility:[facility] Start: 02-13-2024 End: 02-13-[address] [facility] Facility:[facility] Start: 02-08-2024 End: 02-08-2024 ambulatory MD Celia Garrison Work Phone: [facility] Work Phone: Start: 02-08-2024 End: 02-08-2024 Patient encounter procedure MD Celia Garrison Work Phone: [facility] Work Phone: Start: 02-07-2024 Non-patient / Non-visit MD Mala Garrison Work Phone: [facility] Work Phone: Start: 01-24-2024 End: 01-24-2024 ambulatory MD Celia Garrison Work Phone: [facility] Work Phone: Start: 01-24-2024 End: 01-24-2024 Patient encounter procedure MD Celia Garrison Work Phone: [facility] Work Phone: Start: 01-24-2024 End: 01-24-2024 Patient encounter procedure MD Celia Garrison Work Phone: [facility] Start: 01-24-2024 End: 01-24-2024 ambulatory MD Celia Garrison Work Phone: [facility] Work Phone: Start: 01-19-2024 Non-patient / Non-visit MD Mala Garrison Work Phone: [facility] Work Phone: Start: 01-19-2024 Non-patient / Non-visit MD Mala Garrison Work Phone: [facility] Work Phone: Start: 01-09-2024 End: 01-09-2024 ambulatory [facility] Work Phone: Start: 01-09-2024 End: 01-09-2024 Patient encounter procedure [facility] Work Phone: Start: 11-01-2023 End: 11-01-2023 ambulatory [facility] Work Phone: Start: 11-01-2023 End: 11-01-2023 Patient encounter procedure [facility] Work Phone: Start: 10-13-2023 End: 10-13-2023 ambulatory [facility] Work Phone: Start: 10-13-2023 End: 10-13-2023 Patient encounter procedure [facility] Work Phone: Start: 07-31-2023 End: 07-31-2023 ambulatory [facility] Work Phone: Start: 07-31-2023 End: 07-31-2023 Patient encounter procedure [facility] Work Phone: Start: 05-26-2023 Non-patient / [facility]visit [facility]: Start: 02-01-2022 End: 02-02-2022 ambulatory Mihaela CASAS Facility: [place] Start: 02-01-2022 End: 02-01-2022 Patient encounter procedure Mihaela CASAS General Surgery Nill/[facility] [place] Start: 01-13-2022 Encounter for preprocedural laboratory examination DR MIHAELA CASAS [facility] Start: 01-12-2022 End: 01-13-2022 ambulatory Mihaela CASAS Facility:[id number] Start: 01-10-2022 End: 01-11-[address] MIHAELA CASAS Facility:[facility] Start: 01-10-2022 End: 01-11-2022 Encounter for preprocedural laboratory examination DR MIHAELA CASAS Facility: Start: 12-22-2021 End: 12-23-2021 ambulatory Mihaela CASAS [facility] Start: 12-22-2021 End: 12-22-2021 Patient encounter procedure Mihaela CASAS General Surgery Nill/[facility] [place] Start: 12-17-2021 End: 12-18-2021 ambulatory CELIA GARRISON PROVIDER Facility:[facility] Procedures Date Procedure Procedure Detail Performing Clinician Start: 04-01-2024 End: 04-01-2024 Needle emg ea extremty w/paraspinl area complete Kane Ana DO Work Phone: Start: 01-24-2024 X-ray of both knees, three views MD Anoop Garrison Work Phone: Start: 01-12-2022 Colonoscopy Mihaela NILL Start: 01-12-2022 Esophagogastroduodenoscopy Mihaela NILL Bilateral oophorectomy Ebenezer shiv CASAS Colonoscopy Mihaela NILL Decompression of thoracic spine Mihaela CASAS Discectomy of spine Mihaela KERNL Comment on above: T12-L1 T12-L1 Esophagogastroduodenoscopy Jax CASAS Excision of bunion Mihaela HALL Repair of vaginal tear Ebenezer shiv NILShahriar Tonsillectomy Mihaela CASAS Plan of Treatment Date Care Activity Detail Author Start: 04-01-2024 End: 04-01-2024 Patient encounter procedure 04/01/2024 3:00 PM EST [facility] [address] [place] [id number] Kane Perez, [address] [place] [address] Arrived [facility] Comment on above: Arrived Start: 01-24-2024 X-ray of both knees, three views XR knee BI 3V - NOT FOR ER USE [facility] Start: 01-24-2024 XR Knee - bilateral 3 Views [facility] Start: 01-10-2024 Patient referral [facility] Work Phone: DXA Skeletal system.axial Views for bone density [facility] Patient Education Low back pain in adults [facility] Work Phone: Patient referral [facility] Work Phone: [facility] Immunizations Immunization Date Immunization Notes Care Provider Fa ciliever 03-29-2021 COVID-19 mRNA, Comir martinez (Pfizer) [facility] 08-11-2020 COVID-19 mRNA, Comir martinez (Pfizer) [facility] 07-21-2020 COVID-19 mRNA, Comir martinez (Pfizer) [facility] 10-07-2018 diphtheria, tetanus toxoids and acellular pertussis vaccine, unspecified formulation [facility] 02-05-2014 tetanus and diphther ia toxoids, adsorbed, preservative free, for adult use (5 Lf of tetanus toxoid and 2 Lf of diphtheria toxoid) [facility] Payers Date Payer Category Payer Medicare [id number] 2024 Medicare 2023 Unknown 2021 Unknown [id number] 1960 Self-pay [id number] 1960 Unknown [id number] 1959 Unknown [id number] [id number] 1959 Unknown [id number] [id number] 1959 Unknown [id number] [id number] 1959 Unknown [id number] [id number] 1959 Unknown [id number] [id number] 1959 Unknown [id number] [id number] 1959 Unknown [id number] [id number] 1959 Unknown [id number] [id number] 1959 Unknown [id number] [id number] 1959 Unknown [id number] [id number] 1959 Unknown [id number] [id number] Private Health Insurance [employer] [facility] PFFS G [id number] Unknown [id number] Unknown [id number] Unknown MMO [employer] [id number] Unknown Regular Insurance [id number] Social History Date Type Detail Facility Start: 12-22-2021 Heavy tobacco smoker (finding) [facility] [place] [facility] Female [facility] Start: 07-31-2023 End: 10-13-2023 Tobacco smoking status NHIS Smoker (finding) [facility] Start: 1960 Sex Assigned At Female F [facility] Tobacco smoking status NHIS Tobacco smoking consumption unknown [facility] Start: 1960 Sex assigned at Not on file [facility] Functional Status Date Assessment Result Facility 12-22-2021 N/A [facility] [place] Clinical Notes 12-22-2021 to 04-01-2024 Daniel Dougherty, ARRT - 04/01/2024 3:00 PM EST Note Date & Type Note Facility 04-01-2024 History of Present illness Narrative Images from the original note were not included. 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 No hx of DM. Not on blood thinners. Comments: Procedure was explained to the patient who expressed understanding. Patient appeared to have tolerated the test well despite some discomfort due to the nature of the test. documented in this encounter [facility] 02-23-2024 Note Patient Education Ma terials Name: [...] have had today was called a (an) __. If you experience sudden onset of extreme [...] for continued care. Thank you for choosing [facility] for your care. [facility] 01-12-2022 Note OPERATIVE NOTE OPERATION DATE: [...] the polyp. CC: Celia Garrison M.D. [facility] 12-22-2021 Note Chief Complaint consultation for [...] obstructive pulmonary dise (more content not included)... [facility] Comment on above: Result Comment: Elec tronically Signed By: RAJINDER TAVERAS, Mihaela Trujillo\Date and Time Signed: 12/22/21 17:34 EDT Evaluation + Plan note No data available for this section [facility] [place] Evaluation note Diagnosis Onset Date Lumbar radiculopathy, chronic acute [facility] Work Phone: Evaluation note* Diagnosis Onset Date Resolution Status Lumbar radiculopathy, chronic acute Headache acute Joint pain acute Tick bite acute [facility] Work Phone: Evaluation note* Diagnosis Onset Date Resolution Status Headache acute Joint pain acute Tick bite acute Chronic obstructive pulmonary disease, unspecified acute Lumbar radiculopathy, chronic acute [facility] Work Phone: Evaluation note* Diagnosis Onset Date Resolution Status Chronic obstructive pulmonary disease, unspecified acute Lumbar radiculopathy, chronic acute Bilateral knee pain acute COPD exacerbation acute Lumbar pain acute Lumbar radiculopathy, chronic acute Bilateral knee pain acute Primary osteoarthritis of both knees acute [facility] Work Phone: Evaluation note* Diagnosis Onset Date Resolution Status Bilateral knee pain acute COPD exacerbation acute Lumbar pain acute Lumbar radiculopathy, chronic acute Bilateral knee pain acute Primary osteoarthritis of both knees acute Menopause acute [facility] Work Phone: Evaluation note* Diagnosis Lumbosacral radiculopathy- Primary Thoracic or lumbosacral neuritis or radiculitis, unspecified Numbness and tingling Disturbance of skin sensation documented in this encounter [facility] Discharge instructions No data available for this section [facility] [place] Progress note No data available for this section [facility] [place] Reason for visit Narrative* Other Medical (Routine) - Closed Specialty Diagnoses / Procedures Referred By Contac t Referred To Contact Neurology Diagnoses Neuralgia and neuritis, unspecified Procedures HI NEEDLE EMG EA EXTREMTY W/PARASPINL AREA COMPLETE HI NERVE CONDUCTION STUDIES 9-10 STUDIES Ofelia Arceo PA-C [address] [place] [address] Phone: tel: fax: Cecil Fields MD [address] [place] [address] Phone: tel: fax: Referral ID Status Reason Start Date Expiration Date V isits Requested Visits Authorized [id number] Closed Perform Procedure 03/27/2024 09/23/2024 1 1 [facility] Healthcare Summary Purpose Family History No Family History [...] content) Team Status: Active Member Role Status Dominick Garrison MD Primary Care Provider Active Team Status: Inactive Member Role Status Dominick Garrison MD Primary Care Provide r, Attending Provider Active Start: July 31, 2023 End: July 31, 2023 Team Status: Inactive Member Role Status Dominick Garrison MD Primary Care Provider Active Start: October 13, 2023 End: October 13, 2023 Brittanie Siu APRN ACCESS NURSE-C Attending Provider Act onesimo Start: October 13, 2023 End: October 13, 2023 Team Status: Active Member Role Status Dominick Garrison MD Primary Care Provider Active Start: May 26, 2023 EULA Luis Attending Provider Active Start : May 26, 2023 Team Status: Inactive Member Role Status Dominick Garrison MD Primary Care Provide r, Attending Provider Active Start: November 01, 2023 End: November 01, 2023 Team Status: Inactive Member Role Status Dominick Garrison MD Primary Care Provide r, Attending Provider Active Start: January 09, 2024 End: January 09, 2024 Team Status: Active Member Role Status Dominick Garrison MD Primary Care Provider Active Start: January 19, 2024 Delvin Campbell DO Attending Provider Active S tart: January 19, 2024 Team Status: Active Member Role Status Dominick Garrison MD Primary Care Provider Active Start: January 24, 2024 Alexandro Galvez DO Attending Provider Active S tart: January 24, 2024 Team Status: Inactive Member Role Status Dominick Garrison MD Primary Care Provider Active Start: [...] February 08, 2024 End: February 08, 2024 Banquet Cook Relationship Specialty Start Date End Date Celia Garrison MD [facility] [place] [phone] PCP - General Family Medicine 03/27/24 Ofelia Arceo MD [address] [address] Referring Physician Internal Medicine 03/27/24 Banquet Cook Relationship Specialty Start Date End Date Celia Garrison MD [address] [place] [id number] PCP - General Family Medicine 03/27/24 Ofelia Arceo MD [address] [address] Referring Physician Internal Medicine 03/27/24 INFORMATION SOURCE (unrecogn ized section and content) DATE CREATED AUTHOR 02/21/2022 [facility] DATE CREATED AUTHOR AUTHOR'S ORGANIZ ATION 04/01/2022 [facility] DATE CREATED AUTHOR AUTHOR'S ORGANIZ ATION 03/07/2024 [facility] DATE CREATED AUTHOR AUTHOR'S ORGANIZ ATION 03/27/2024 [facility] DATE CREATED AUTHOR AUTHOR'S ORGANIZ ATION 04/03/2024 [facility] EPIC Goals (unrecognized section and content) Goals may [...] BE BASED ON THE PRIMARY CLINICAL RECORDS. [facility] [employer] [facility]. provides no warranty or guarantee of the accuracy or completeness of information in this document.
== END 2024-04-05 13:46 | disposition home or self-care (01) ==
LOC: US 13:45
PROVIDERS: PCP Family Medicine; Visit Provider Family Medicine
DX: E04.1 Nontoxic single thyroid nodule (principal); M79.604 Pain in right leg
CPT/HCPCS: 76536; 93971

== ENCOUNTER 2024-04-08 13:58 | Outpatient (RCR) | payer MEDICARE, OTHER, SELFPAY | END 2024-04-09 14:30 | disposition home or self-care (01) | LOC: PT 13:58 | PROVIDERS: PCP Family Medicine; Visit Provider Family Medicine | DX: M54.50 Low back pain, unspecified (principal) | CPT/HCPCS: 97110; 97161; G0283 ==

== ENCOUNTER 2024-04-10 10:22 | Outpatient (RCR) | payer MEDICARE, OTHER, SELFPAY | END 2024-05-17 07:26 | disposition home or self-care (01) | LOC: PT 10:22 | PROVIDERS: PCP Family Medicine; Visit Provider Family Medicine | DX: M54.50 Low back pain, unspecified (principal); M25.569 Pain in unspecified knee | CPT/HCPCS: 97110; G0283 ==

== ENCOUNTER 2024-04-22 12:14 | Day surgery (SDC) | payer MEDICARE, OTHER, SELFPAY ==
--- NOTE | 2024-04-22 12:29 | US_ITS ---
[address] [address] Patient Name: KARLENE JIMENEZ MRN: [id number] date: 1960 Sex: F Assigned Patient Location: [place] Current Patient Location: [place] Accession/Order Number: [id number] Exam Date: 04/22/2024 12:30 Report Date: 04/22/2024 13:40 At the request of: CORNELIUS GARRISON Procedure: US biopsy FNA EXAMINATION: US biopsy FNA HISTORY: enlarged right thyroid lobe COMPARISON: No relevant comparison available. TECHNIQUE: After obtaining informed consent, an ultrasound-guided biopsy was performed in the usual sterile manner. FINDINGS: IMAGING: Ultrasound BIOPSY NEEDLE: 25-gauge 2 inch SPECIMEN TYPE, #, LOCATION: 3 fine-needle aspirates, 2.9 cm right thyroid nodule MEDICATION: 3 cc 1% buffered lidocaine COMPLICATIONS: None. LABORATORY: Pathology and molecular studies OTHER: Negative. US/US biopsy FNA IMPRESSION: Uneventful ultrasound guided biopsy. The patient was instructed to obtain follow up care and biopsy results from the referring physician. Electronically authenticated by: KELLY MAXWELL Date: 04/22/2024 13:40
[2024-04-22 12:35] VITALS: BP 118/74; PULSE 80; O2SAT 95
[2024-04-22] MEDS: LIDOCAINE HCL 10 ML, SODIUM BICARBONATE 1 MEQ INJ (13:10)
== END 2024-04-22 13:30 | disposition home or self-care (01) ==
LOC: US 12:15
PROVIDERS: Radiology Diagnostic Radiology; PCP Family Medicine; Visit Provider Family Medicine
DX: E04.9 Nontoxic goiter, unspecified (principal); M48.062 Spinal stenosis, lumbar region with neurogenic claudication; M54.16 Radiculopathy, lumbar region
CPT/HCPCS: 10005; 88173; G0463

== ENCOUNTER 2024-04-22 13:43 | Outpatient (OUT) | payer MEDICARE, OTHER, SELFPAY ==
--- OUTSIDE RECORDS SUMMARY | 2024-04-22 14:06 | XMS_ITS | CCD ---
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 Name Role Phone CELIA GARRISON Primary [...] Care Provider DO Alexandro Galvez Attending Provider [phone] Alexandro Galvez Admitting Unavailable Celia Garrison Primary Care Unavailable Alexandro Galvez Attending Unavailable Celia Garrison Attending Unavailable Celia Garrison Primary Care Unavailable Celia Garrison Admitting Unavailable Celia Garrison MD Primary Care Unava ilable Adis PA-C, Ofelia Grace Attending Unavailab le Adis PA-C, Ofelia Grace Attending Unavailab le Adis PA-C, Ofelia Grace Admitting UnavailCelia Rascon MD Primary Care Unava ilable Adis DEMARCUS, Ofelia Grace Attending Unavailab Tuan TAVERAS, Celia Whyte Primary Care Unava ilable Adis PA-C, Ofelia Grace Attending Unavailab Tuan TAVERAS, Celia Whyte Primary Care Unava ilable Adis PAMeghanC, Ofelia Grace Attending UnavailCelia Rascon MD Referring Celia Mcgowan MD Primary Care Celia Mcgowan MD Primary Care Provider Ofelia Arceo MD Unavailable KANE PEREZ Attending Unavailable OFELIA ARCEO Referring Unavailable Celia Garrison MD Primary Care Provider Alexandro Galvez DO Attending Provider Celia Garrison MD Attending Provider Allergies Allergy Classification Reported Allergen(s) Allergy Type Date of Onset Reaction(s) Facility (3 sources) Acetaminophen / oxyCODONE; Translations: [acetaminophen-oxy codone] Drug Allergy Nausea (finding) [facility] [place] (3 sources) Alendronate; Translations: [alendronate] Drug Allergy Muscle pain (finding) [facility] [place] (11 sources) Clarithromycin; Translations: [clarithromycin] Drug Allergy 07-31-19 24 Unknown (qualifier value) [facility] [place] (12 sources) levoFLOXacin; Translations: [levofloxacin] Drug Allergy 07-31-19 24 Eruption of skin (disorder) [facility] [place] (4 sources) Sulfonamides (Antibiotic); Translations: [sulfa drugs] Drug allergy Unknown (qualifier value) [facility] [place] (1 source) Acetaminophen / oxyCODONE Drug Allergy 03-25-20 16 [facility] (1 source) Alendronate Drug Allergy 03-18-20 16 [facility] (1 source) Clarithromycin Drug Allergy 03-25-20 16 [facility] (1 source) levoFLOXacin Drug Allergy 03-25-20 16 [facility] (1 source) Quinolones (Antibiotic) Drug allergy (disorder) 03-25-20 16 [facility] (1 source) Sulfonamides (Antibiotic) Drug allergy (disorder) 05-01-19 14 [facility] (1 source) Acetaminophen Drug Allergy 07-31-19 24 [facility] (8 sources) Alendronate Drug Allergy 07-31-19 24 [facility] (8 sources) oxyCODONE Drug Allergy 07-31-19 24 [facility] (8 sources) Sulfonamides (Antibiotic) Allergy to substance 07-31-19 Comment:as a young child, pt. cannot recall reaction [facility] (8 sources) Biaxin XL *MACROLIDES* Allergy to substance 07-28-[address] [facility] (1 source) Ciprofloxacin; Translations: [Cipro] Drug Allergy [facility] (1 source) symbalta; Translations: [symbalta] Propensity to adverse reactions to drug (disorder) [facility] Medications Current Medications Medication Drug Class(es) Dates Sig (Normalized) Sig (Original) acetaminophen 325 mg / HYDROcodone bitartrate 5 mg oral tablet (20 sources) Opioid Agonist Start: 08-03-2023 End: 03-22-2024 take 1 tablet by mouth three times daily Hydrocodone-Aceta minophen 5-325 mg tablet Active 1 TAB PO Three times daily March 22, 2024 Start: 08-03-2023 take 1 tablet by margarito th three times daily Hydrocodone-Acetaminophen Active 1 TAB P O Three times daily August 03, 2023 Start: 05-26-2023 End: 07-31-2023 take 1 tablet by mouth three times daily Hydrocodone-Acetaminophen 5-325 mg table t Discontinued 1 TAB PO Three times daily May 26, 2023 June 26, 2023 11:47am Start: 12-17-2021 take 1 tablet by margarito th three times daily acetaminophen-hydrocodone 325 mg-5 mg or al tablet 1 tab(s), Oral, TID, Refill(s) 0 Start Date: 12/17/21 Status: Ordered albuterol 0.83 mg/ml inhalation solution (20 sources) beta2-Adrenergic Agonist Start: 04-15-2024 take 2.5 mg by inhalation four times daily as needed for wheezing Albuterol Sulfate 2.5 mg /3 mL (0.083 %) solution for nebulization Active 2.5 MG INHALATION Four times daily as needed for shortness of breath or wheezing April 15, 2024 3:16pm Start: 01-23-2024 End: 04-15-2024 take 1 dose by inhalation every four to six hours as needed Albuterol Sulfate 2.5 mg /3 mL (0.083 %) solution for nebulization Discontinued 0 .ROUTE .COMPLEX March 18, 2024 4:52pm April 15, 2024 3:17pm INHALE 1 vial via NEBULIZER EVERY 4 TO 6 HOURS NEEDED Start: 01-09-2024 End: 01-23-2024 take 2.5 mg by inhalation every four to six hours as needed Albuterol Sulfate 2.5 mg /3 mL (0.083 %) solution for nebulization Discontinued 2.5 MG INHALATION EVERY 4-6 HOURS as needed for bronchospasm January 08, 2024 11:00pm January 23, 2024 9:48am Start: 09-08-2023 End: 03-12-2024 take 1 puff(s) by inhalation every four hours as needed Albuterol Sulfate 90 mcg/actuation HFA aerosol inhaler Discontinued 2 PUFF INHALATION Every 4 hours as needed for bronchospasm 8.5 November 01, 2023 8:22am December 05, 2023 1:48pm Start: 07-28-2023 End: 09-08-2023 take 2 puff(s) by inhalation every four hours as needed Albuterol Sulfate 90 mcg/actuation HFA aerosol inhaler Discontinued 2 PUFF INHALATION Every 4 hours July 27, 2023 11:00pm September 08, 2023 9:39am FreeTextSi puff Inhalation every 4 hrs prn; Note: Source Status: Refill; Refills: 2; Provider: Bladimir Ward Start: 12-17-2021 take 2 puff(s) by in halation every four hours ProAir HFA 90 mcg/inh inhalation aerosol 2 puff(s), Inhalation, q4hr Shortness of breath or wheezing, Refill(s) 0 Start Date: 12/17/21 Status: Ordered amitriptyline hydrochloride 50 mg oral tablet (11 sources) Tricyclic Antidepressant Start: 03-29-2024 take 1 tablet by mouth once daily at bedtime Amitriptyline 50 mg tablet Active 50 MG PO Daily at bedtime March 29, 2024 9:36am FreeTextSi tablet at bedtime Orally Once a day; Note: Source Status: Start; Refills: 3; Qty: 90 Tablet; Provider: Bladimir Ward Start: 07-28-2023 End: 02-08-2024 take 1 tablet by mouth once daily at bedtime Amitriptyline 50 mg tablet Discontinued 50 MG PO Daily at bedtime July 27, 2023 11:00pm February 08, 2024 12:58pm FreeTextSi tablet at bedtime Orally Once a day; Note: Source Status: Start; Refills: 3; Qty: 90 Tablet; Provider: Bladimir Ward Start: 12-17-2021 take 1 tablet by margarito once daily at bedtime amitriptyline 50 mg Tab 50 mg = 1 tab(s), Oral, Once a day (at bedtime), Refills(s) 0 Start Date: 12/17/21 Status: Ordered 24 hr buPROPion hydrochloride 300 mg extended release oral tablet (2 sources) Aminoketone Start: 04-15-2024 take 1 tablet by mouth once daily Bupropion Hcl 300 mg tablet extended release 24 hr Active 300 MG PO Daily 90 April 15, 2024 12:00am Start: 03-11-2024 End: 04-15-2024 take 1 tablet by mouth once daily Bupropion Hcl 150 mg tablet extended release 24 hr Discontinued 150 MG PO Daily March 11, 2024 12:00am April 15, 2024 3:39pm diclofenac potassium 50 mg oral tablet (1 source) Nonsteroidal Anti-inflammatory Drug Start: 12-17-2021 take 1 tablet by mouth twice daily diclofenac potassium 50 mg oral tablet 50 mg = 1 tab(s), Oral, BID, Refills(s) 0 Start Date: 12/17/21 Status: Ordered Fluticasone-Umecl idin-Vilanter (3 sources) Start: 04-15-2024 Fluticasone-Umec lidin-Vilanter (Trelegy Ellipta) 200-62.5-25 mcg blister with device Active 1 INH INHALATION Daily 3 April 15, 2024 3:40pm Rinse after use Start: 03-29-2024 End: 04-15-2024 Zqygddfvjbq-Gzdlnpkyj-Kwcoli er (Trelegy Ellipta) 200-62.5-25 mcg blister with device Discontinued 1 INH INHALATION Daily 60 March 29, 2024 9:38am April 15, 2024 3:41pm Rinse after use Start: 03-11-2024 End: 03-29-2024 Dpzgkayepwr-Icweoidqx-Iqaydf er (Trelegy Ellipta) 200-62.5-25 mcg blister with device Discontinued 1 INH INHALATION Daily 180 90 March 11, 2024 12:00am March 29, 2024 9:38am Rinse after use omeprazole 20 mg delayed release oral capsule (2 sources) Proton Pump Inhibitor Start: 03-11-2024 take 1 capsule by mouth once daily Omeprazole 20 mg capsule,delayed release(DR/EC) Active 20 MG PO Daily March 11, 2024 12:00am Start: 12-22-2021 take 20 mg by mouth [...] Drug Class(es) Dates Sig (Normalized) Sig (Original) cefdinir 300 mg oral capsule (5 sources) Cephalosporin Antibacterial Start: 01-09-2024 End: 02-08-2024 take 1 capsule by mouth twice daily Cefdinir 300 mg capsule Discontinued 300 MG PO Twice daily January 08, 2024 11:00pm February 08, 2024 12:53pm doxycycline hyclate 100 mg oral tablet (7 sources) Tetracycline-class Drug Start: 10-13-2023 End: 11-01-2023 take 1 tablet by mouth twice daily Doxycycline Hyclate 100 mg tablet Discontinued 100 MG PO Twice daily 27 01October 12, 2023 11:00pm November 01, 2023 8:02am DULoxetine 60 mg delayed release oral capsule (20 sources) Serotonin and Norepinephrine Reuptake Inhibitor Start: 11-01-2023 End: 01-09-2024 take 1 capsule by mouth once daily Duloxetine 60 mg capsule,delayed release(DR/EC) Discontinued 60 MG PO Daily December 05, 2023 1:48pm January 09, 2024 2:24pm Start: 07-31-2023 End: 11-01-2023 take 1 capsule by mouth once daily Duloxetine (Cymbalta) 30 mg capsule,delayed release(DR/EC) Discontinued 30 MG PO Daily October 13, 2023 2:47pm November 01, 2023 8:18am fluticasone (12 sources) Corticosteroid Start: 01-24-2024 End: 02-08-2024 take 1 puff(s) by inhalation twice daily Fluticasone Propionate Discontinued 1 PUFF INHALATION Twice daily 10.January 24, 2024 8:18am February 08, 2024 2:20pm [...] 2023 12:00am administer with spacer Fluticasone Propion-Salmeterol (10 sources) Corticosteroid, beta2-Adrenergic Agonist Start: 07-28-2023 End: 11-01-2023 take 1 puff(s) by inhalation twice daily Fluticasone Propion-Salmeterol 250-50 mcg/dose blister with device Discontinued 1 INH INHALATION Twice daily July 27, 2023 11:00pm November 01, 2023 8:03am FreeTextSi puff Inhalation Twice a day; Note: Source Status: Start; Refills: 3; Provider: Bladimir Ward Start: 07-28-2023 End: 11-01-2023 take 1 puff(s) [...] Refill(s) 6 Start Date: 12/17/21 Status: Ordered Fluticasone Propionate 44 mcg/actuation HFA aerosol inhaler (3 sources) Start: 01-24-2024 End: 02-08-2024 take 1 puff(s) by inhalation twice daily Fluticasone Propionate 44 mcg/actuation HFA aerosol inhaler Discontinued 1 PUFF INHALATION Twice daily 10.January 24, 2024 7:18am February 08, 2024 1:20pm administer with spacer Start: 12-05-2023 End: 01-24-2024 take 1 puff(s) by inhalation twice daily Fluticasone Propionate 44 mcg/actuation HFA aerosol inhaler Discontinued 1 PUFF INHALATION Twice daily 10.December 05, 2023 1:47pm January 24, 2024 7:18am administer with spacer Start: 11-01-2023 End: 12-05-2023 take 1 puff(s) by inhalation twice daily Fluticasone Propionate 44 mcg/actuation HFA aerosol inhaler Discontinued 1 PUFF INHALATION Twice daily October 31, 2023 11:00pm December 05, 2023 1:48pm administer with spacer methylPREDNISolone 4 mg oral tablet (6 sources) Corticosteroid Start: 11-01-2023 End: 12-05-2023 Methylprednisolone 4 mg tablets,dose pack Discontinued 0 PO per package directions October 31, 2023 11:00pm December 05, 2023 1:48pm PO PER PKG DIR for 6 days Start: 11-01-2023 End: 12-05-2023 Methylprednisolone Discontin ued 0 PO per package directions November 01, 2023 12:00am December 05, 2023 2:48pm PO PER PKG DIR for 6 days Start: 11-01-2023 Methylpredniso lone Active 0 PO per package directions November 01, 2023 12:00am PO PER PKG DIR for 6 days Pneumoc 20-Agnes Conj-Dip Cr(Pf) (1 source) Start: 03-11-2024 End: 03-29-2024 inject 1 mL by intramuscular injection once Pneumoc 20-Ganes Conj-Dip Cr(Pf) (Prevnar 20 (Pf)) 0.5 mL syringe Discontinued 0.5 ML IM Once 0.5 March 11, 2024 12:00am March 29, 2024 8:52am predniSONE 20 mg oral tablet (5 sources) Start: 01-09-2024 End: 02-08-2024 take 1 tablet by mouth twice daily Prednisone 20 mg tablet Discontinued 20 MG PO Twice daily January 08, 2024 11:00pm February 08, 2024 12:53pm pregabalin 50 mg oral capsule (8 sources) Start: 07-31-2023 End: 07-31-2023 take 1 capsule by mouth twice daily Pregabalin (Lyrica) 50 mg capsule Discontinued 50 MG PO Twice daily 60 July 30, 2023 11:00pm July 31, 2023 3:27pm Rsvpref3 Antigen-As01e (Pf) (Arexvy (Pf)) 120 mcg/0.5 mL suspension for reconstitution (1 source) Start: 03-11-2024 End: 03-29-2024 inject 1 mL by intramuscular injection once Rsvpref3 Antigen-As01e (Pf) (Arexvy (Pf)) 120 mcg/0.5 mL suspension for reconstitution Discontinued 0.5 ML IM Once 1 March 11, 2024 12:00am March 29, 2024 9:04am 60 actuat tiotropium 0.00142 mg/actuat inhalation spray (3 sources) Anticholinergic Start: 02-08-2024 End: 03-11-2024 take 1 puff(s) by inhalation once daily in the morning Tiotropium [place] (Spiriva Respimat) 1.25 mcg/actuation mist Discontinued 2 PUFF INHALATION Every morning March 08, 2024 9:50am March 11, 2024 3:50pm tiZANidine 4 mg oral tablet (20 sources) Central alpha-2 Adrenergic Agonist Start: 05-26-2023 End: 03-22-2024 take 1 tablet by mouth three times daily Tizanidine 4 mg tablet Discontinued 4 MG PO Three times daily May 26, 2023 12:10pm August 28, 2023 2:10pm Start: 12-17-2021 take 1 tablet by margarito [...] Translations: [RECTAL POLYP] Onset: 01-17-2022 Episodic Asthma (5 sources) Asthma; Translations: [Uncomplicated moderate persistent asthma] 12-17-2021 Chronic Chronic obstructive pulmonary disease and bronchiectasis (20 sources) Chronic obstructive lung disease; Translations: [Chronic [...] BL] Onset: 01-17-2022 Chronic E Codes: Natural/environment (10 sources) Tick bite; Translations: [Bitten or stung by nonvenomous insect and other nonvenomous arthropods, initial encounter] 10-13-2023 Episodic Esophageal disorders (7 sources) Gastroesophageal reflux disease without esophagitis; Translations: [Gastro-esophageal reflux disease without esophagitis] Onset: 12-22-2021 Chronic Gastritis and duodenitis (1 source) Unspecified chronic gastritis without bleeding; Translations: [UNS CHRONIC GASTRITIS W/O BLEEDING] Onset: 01-17-2022 Chronic Headache; including migraine (10 sources) Headache; Translations: [Headache] 10-13-2023 Episodic Immunizations and screening for infectious disease (2 sources) Patient encounter status; Translations: [Encounter for immunization] 03-11-2024 Episodic Mood disorders (2 sources) Depressive disorder 12-17-2021 Chronic Osteoarthritis (8 sources) Primary gonarthrosis, bilateral; Translations: [Bilateral primary osteoarthritis of knee] 01-24-2024 Chronic Other aftercare (1 source) Other rn long term care (current) drug therapy; Translations: [OTH MCC CURRENT DRUG THERAPY] Onset: 01-17-2022 Episodic Other bone disease and musculoskeletal deformities (2 sources) Osteopenia 12-17-2021 Episodic Other bone disease and musculoskeletal deformities (1 source) Other specified disorders of bone density and structure, unspecified site; Translations: [OTH D/O BONE DEN STRUCT UNS SITE] Onset: 01-17-2022 Episodic Other connective tissue disease (1 source) Pain in right lower limb; Translations: [Pain in right leg] 03-29-2024 Episodic Other connective tissue disease (1 source) Pain in right leg; Translations: [Pain in limb] 03-29-2024 Episodic Other fractures (1 source) Fracture of rib; Translations: [Fracture of one rib, unspecified side, initial encounter for closed fracture] 02-18-2024 Episodic Other fractures (1 source) Fracture of one rib, unspecified side, initial encounter for closed fracture; Translations: [Closed fracture of rib(s), unspecified] 02-08-2024 Episodic Other nervous system disorders (1 source) Numbness and tingling sensation of skin; Translations: [Anesthesia of skin] 04-01-2024 Episodic Other non-traumatic joint disorders (7 sources) Joint pain; Translations: [Pain in unspecified joint] 10-13-2023 Episodic Other non-traumatic joint disorders (3 sources) Pain in unspecified joint; Translations: [Pain in joint, site unspecified] 10-13-2023 Episodic Other non-traumatic joint disorders (12 sources) Pain in right knee; Translations: [Pain [...] conditions (not mental disorders or infectious disease) (5 sources) Screening for malignant neoplasm of colon [...] SATIETY] Onset: 01-17-2022 Episodic Residual codes; unclassified (2 sources) Menopause present; Translations: [Asymptomatic menopausal state] 02-08-2024 Episodic Residual codes; unclassified (2 sources) Asymptomatic menopausal state; Translations: [Symptomatic menopausal or female climacteric states] 02-08-2024 Episodic Spondylosis; intervertebral disc disorders; other back problems (20 sources) Lumbar radiculopathy; Translations: [Radiculopathy, lumbar region] 07-31-2023 Episodic Substance-related disorders (4 sources) Nicotine dependence, cigarettes, uncomplicated; Translations: [Tobacco dependence caused by cigarettes] Onset: 01-17-2022 03-11-2024 Chronic Thyroid disorders (2 sources) Thyroid nodule; Translations: [Nontoxic single thyroid nodule] 03-29-2024 Chronic Unclassified (2 sources) Patient encounter status 12-22-2021 Unclassified (1 source) CONTACT W/AND (SUSP) EXPOS COVID-19; Translations: [CONTACT W/AND (SUSP) EXPOS COVID-19] Onset: 01-13-2022 Results Test Name Value Interpretation Reference Range Facility EMG 2 Extremitieson 04-01-20 EMG/NCS BLE Right L5/S1 radic [place] S1/2 radic [facility] Healthcare NVC 9-10 Nerveson 04-01-2024 EMG/NCS BLE Right L5/S1 radic [place] S1/2 radic [facility] Provider Letteron 03-26-2024 Provider Letter (Inserted Image. Gela ble to display) Celia Garrison MD [facility] [place] [address] Re: Cristine Manley Date of Visit: 03/25/2024 Dear Celia Garrison MD, This patient was recently seen in the neurosurgical office. Please see attached note for further details. Let me know if you have any questions or concerns. Sincerely, DEMARCUS Gan Providers: The following document(s) were included in the letter: March 25, 2024 17:40:13 EST - (03/25/2024) Neurosurgery Office Visit Note Normal [facility] Neurosurgery Office/Clinic N oteon 03-25-2024 Neurosurgery Office/Clinic Note Chief Complaint CT thoracic, lumbar, XR lumbar, hips and neck review History of Present Illness The patient is a pleasant 64-year-old right-handed female with history of chronic nicotine use, asthma and recently diagnosed COPD for which she is planned to see a assembler brazer in the near future. 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 Oral narcotics including [place] which makes pain tolerable though does not [...] increases slightl (more content not included)... Normal [facility] Basophils Auto (Bld) [#/Vol] on 03-21-2024 Basophils (Bld) [#/Vol] Automated basophil count 0.0-0.1 [facility] Basophils/100 WBC Auto (Bld) on 03-21-2024 Basophils/100 WBC (Bld) Automated basophil % 0.2-2.[address] [facility] Eosinophils/100 WBC Auto (Bl d)on 03-21-2024 Eosinophils/100 WBC (Bld) Automated eosinophil % 0.9-7.[address] [facility] Erythrocyte distribution wid th Auto (RBC) [Ratio]on 03-21-2024 Erythrocyte distribution width (RBC) [Ratio] Erythrocyte distribution width [Ratio] by Automated count 11.0-15.[address] [facility] Hematocrit Auto (Bld) [Volum e fraction]on 03-21-2024 Hematocrit (Bld) [Volume fraction] Hematocrit [Volume Fraction] of Blood by Automated count 36.0-48.[address] [facility] Hemoglobin [Mass/volume] in Bloodon 03-21-2024 Hemoglobin (Bld) [Mass/Vol] Hemoglobin [Mass/volume] in Blood 12.0-16.[address] [facility] IgE [Units/volume] in Serum or Plasmaon 03-21-2024 IgE Qn IgE [Units/volume] i n Serum or Plasma [phone] [facility] Comment on above: Performed at: [address] [id number] Director: Levi Pedroza MD, Phone: [phone] Laboratory - Hematology and Cell countson 03-21-2024 Immature granulocytes/100 WBC (Bld) 0.1 % 0.0-0.[address] [facility] Leukocytes [#/volume] correc shant for nucleated erythrocytes in Blood by Automated counon 03-21-2024 WBC corrected for nucl RBC Auto (Bld) [#/Vol] Leukocytes [#/volume] corrected for nucleated erythrocytes in Blood by Automated coun 4.0-11.[address] [facility] Lymphocytes Auto (Bld) [#/Vo l]on 03-21-2024 Lymphocytes (Bld) [#/Vol] Lymphocytes [#/volume] in Blood by Automated count 1.2-3.[address] [facility] Lymphocytes/100 WBC Auto (Bl d)on 03-21-2024 Lymphocytes/100 WBC (Bld) Lymphocytes/100 leukocytes in Blood by Automated count Low 20.5-60.[address] [facility] MCH Auto (RBC) [Entitic mass ]on 03-21-2024 MCH (RBC) [Entitic mass] MCH [Entitic mass] by Automated count 26.7-34.[address] [facility] MCHC Auto (RBC) [Mass/Vol]on 03-21-2024 MCHC (RBC) [Mass/Vol] MCHC [Mass/volume] by Automated count 29.9-35.[address] [facility] MCV Auto (RBC) [Entitic vol] on 03-21-2024 MCV (RBC) [Entitic vol] MCV [Entitic volume] by Automated count 81.0-99.[address] [facility] Monocytes Auto (Bld) [#/Vol] on 03-21-2024 Monocytes (Bld) [#/Vol] Automated blood monocyte count 0.3-0.[address] [facility] Monocytes/100 WBC Auto (Bld) on 03-21-2024 Monocytes/100 WBC (Bld) Automated monocyte % 1.7-12.[address] [facility] Neutrophils Auto (Bld) [#/Vo l]on 03-21-2024 Neutrophils (Bld) [#/Vol] Neutrophils [#/volume] in Blood by Automated count High 1.4-6.[address] [facility] Neutrophils/100 WBC Auto (Bl d)on 03-21-2024 Neutrophils/100 WBC (Bld) Automated neutrophil % 43.0-75.[address] [facility] No Panel Informationon 03-21 Eosinophils # (Auto) 0.1 10 3/uL 0.0-0.[address] [facility] Immature Granulocyte # (Auto) 0.01 10 3/uL 0.00-0.[address] [facility] Platelet mean volume Auto (B ld) [Entitic vol]on 03-21-2024 Platelet mean volume (Bld) [Entitic vol] Platelet mean volume [Entitic volume] in Blood by Automated count 9.5-13.[address] [facility] Platelets Auto (Bld) [#/Vol] on 03-21-2024 Platelets (Bld) [#/Vol] Platelets [#/volume] in Blood by Automated count 150-[address] [facility] RBC Auto (Bld) [#/Vol]on RBC (Bld) [#/Vol] Erythrocytes [#/volu me] in Blood by Automated count 4.20-5.[address] [facility] Provider Letteron 02-29-2024 Provider Letter (Inserted Image. Gela ble to display) Celia Whittaker [address] [facility], [place] [address] Re: Cristine Manley Date of Visit: 02/23/2024 Dear Celia Garrison MD, Please see attached results on this mutual patient you have with [facility] Result Name Current Result CT Spine Thoracic/Lumbar Myelogram w/Con 02/23/2024 Let me know if you have any questions or concerns. Sincerely, Jaclyn Bliss [facility] Automobile Assembler Quoc Kumari Providers: Normal [facility] CT Spine Thoracic/Lumbar Mye logram w/Conon 02-27-2024 [...] Electronically Signed in Other Vendor System) Normal [facility] PTon 02-23-2024 INR Coag (PPP) [Relative time] 1.0 {INR} Normal <=3.5 [facility] Comment on above: Result Comment: INR has no normal range. INR Therapeutic range is: 2.0-3.0 (AF, CVA, TIAs, DVT prophylaxis, acute DVT) 2.5-3.5 ([facility] heart valves, recurrent thrombosis/emboli) Performed By: #### P TINR #### [address] [address] PT Coag (PPP) [Time] 10.3 s Normal 9.2-12.0 [facility] Comment on above: Performed By: #### P TINR #### [address] [address] PTTon 02-23-2024 aPTT Coag (Bld) [Time] 24.8 s Normal 19.5-28.2 [facility] Comment on above: Performed By: #### P TT #### [address] [address] Platelet Counton 02-23-2024 Platelet 300 x10*3/mcL Normal 150-450 [facility] Comment on above: Performed By: #### P LTS #### [address] [address] XR Hip 2-3 Views Lefton 02-08 XR [...] Electronically Signed in Other Vendor System) Normal [facility] XR Myelography Spine 2 or Mo re [facility] 02-23-2024 XR Myelography Spine 2 or More [...] fluoroscopically guided thoracolumbar myelogram. Final Dictated by: Alxeey Morgan MD Dictated DT/TM: 02/23/2024 10:10 am Signed by: Alexey Morgan MD Signed (Electronic Signature): 02/23/2024 10:11 am (If Report Is Signed, Electronically Signed in Other Vendor System) Normal [facility] XR Spine Cervical 4 or 5 Vifadi wson 02-23-2024 XR Spine Cervical 4 or [...] Electronically Signed in Other Vendor System) Normal [facility] XR Spine Lumbosacral Bending 2-3 Viewson 02-23-2024 [...] Signed, Electronically Signed in Other Vendor System) [facility] Neurosurgery Office/Clinic Aliya powell 02-13-2024 Neurosurgery Office/Clinic Note Chief Complaint Back lumbar pain radiculopathy consult History of Present Illness The patient is a pleasant 64-year-old right-handed female with history of chronic nicotine use, asthma and recently diagnosed COPD for which she is planned to see a assembler brazer in the near future. She also has [...] though does not resolve. Oral narcotics including [place] which makes pain tolerable though does not [...] Newly diagnosed COPD, scheduled to see a assembler brazer in the near future Chronic nicotine use [...] marijuana use. 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 She denies any Worker's Comp. related claims regarding today's visit FAMILY HISTORY: Lung cancer: Father Diabetes mellitus: Mother Hypertension: Mother Review of Systems Constitutional: [No fevers, chills, sweats] Eye: [No recent visual problems] ENMT: [ (more content not included)... Normal [facility] Provider Letteron 02-13-2024 Provider Letter (Inserted Image. Gela ble to display) Celia Garrison MD [address] [place] [address], [place] [address] Re: Cristine Manley Date of Visit: 02/13/2024 Dear Celia Garrison MD, This patient was recently seen in the neurosurgical office. Please see attached note for further details. Let me know if you have any questions or concerns. Sincerely, DEMARCUS Gan Providers: The following document(s) were included in the letter: February 13, 2024 09:39:53 EST - (02/13/2024) Neurosurgery Office Visit Note Normal [facility] XR knee BI 3V - NOT FOR ER U Sanam 10-16-2024 XR knee BI 3V - NOT FOR ER USE [facility] [address] [place] [address] XRay Report Signed Patient: Cristine Manley MR#: [id number] 53 : 1960 Acct:[id number] Age/Sex: 64 / F ADM Date: 01/24/24 Loc: [facility] Room: Type: [facility] CLI Attending Dr: Alexandro Galvez DO Copies to: [...] Sunday Graham M.D.01/24/2024 3:45 PM Dictation Location: [place] [address] Transcribed By: [facility] 01/24/24 1545 Dictated By: Sunday Graham II, MD 01/24/24 154 Signed By: 01/24/24 154 Normal [facility] Basophils Auto (Bld) [#/Vol] on 01-19-2024 Basophils (Bld) [#/Vol] 0.0 10 3/uL 0.0-0.[address] [facility] Basophils (Bld) [#/Vol] Automated basophil count 0.0-0.1 [facility] Basophils/100 WBC Auto (Bld) on 01-19-2024 Basophils/100 WBC (Bld) 0.2 % 0.2-2.[address] [facility] Basophils/100 WBC (Bld) Automated basophil % 0.2-2.[address] [facility] Eosinophils/100 WBC Auto (Bl d)on 01-19-2024 Eosinophils/100 WBC (Bld) 4.3 % 0.9-7.[address] [facility] Eosinophils/100 WBC (Bld) Automated eosinophil % 0.9-7.[address] [facility] Erythrocyte distribution wid th Auto (RBC) [Ratio]on 01-19-2024 Erythrocyte distribution width (RBC) [Ratio] 13.1 % 11.0-15.[address] [facility] Erythrocyte distribution width (RBC) [Ratio] Erythrocyte distribution width [Ratio] by Automated count 11.0-15.[address] [facility] Estimated glomerular filtrat ion rate (GFR) non- Americanon 01-19-2024 GFR/1.73 sq M.predicted among non-blacks MDRD (S/P/Bld) [Vol rate/Area] mL/min/{1.73_m2} >=60 mL/min/1.73 m [address] [facility] GFR/1.73 sq M.predicted among non-blacks MDRD (S/P/Bld) [Vol rate/Area] Estimated glomerular filtration rate (GFR) non- >=60 mL/min/1.73 m [address] [facility] Fibrin D-dimer [Presence] in Platelet poor plasma by Latex agglutinationon 01-19-2024 Fibrin D-dimer LA Ql (PPP) 0.43 mg/L FEU <=0.[address] [facility] Comment on above: Increases in [...] diabetes, thrombolyticor anticoagulant therapy, stress, and generalizedhospitalization. Fibrin D-dimer LA Ql (PPP) Fibrin D-dimer [Presence] in Platelet poor plasma by Latex agglutination <=0.[address] [facility] Comment on above: Increases in [...] [Volume fraction] 39.5 % 36.0-48.[address] [facility] Hematocrit (Bld) [Volume fraction] Hematocrit [Volume Fraction] of Blood by Automated count 36.0-48.[address] [facility] Hemoglobin [Mass/volume] in Bloodon 01-19-2024 Hemoglobin (Bld) [Mass/Vol] 12.8 g/dL 12.0-16.[address] [facility] Hemoglobin (Bld) [Mass/Vol] Hemoglobin [Mass/volume] in Blood 12.0-16.[address] [facility] Laboratory - Chemistry and C hemistry - challengeon 01-19-2024 Calcium [Mass/Vol] 9.0 mg/dL 8.5-10.1 [facility] Chloride [Moles/Vol] 105 mmol/L 98-[address] [facility] CO2 [Moles/Vol] 28.7 mmol/L 21.0-32.0 [facility] Creatinine [Mass/Vol] 0.92 mg/dL 0.55-1.[address] [facility] GFR/1.73 sq M.predicted MDRD (S/P/Bld) [Vol rate/Area] mL/min/{1.73_m2} >=60 mL/min/1.73 m [address] [facility] Glucose [Mass/Vol] 78 mg/dL 74-106 [facility] Potassium [Moles/Vol] 4.0 mmol/L 3.5-5.[address] [facility] Sodium [Moles/Vol] 138 mmol/L 136-145 [facility] Urea nitrogen [Mass/Vol] 27.0 mg/dL High 7.0-18.[address] [facility] Urea nitrogen/Creatinin e [Mass ratio] 29.3 mg/mg [facility] Laboratory - Hematology and Cell countson 01-19-2024 Immature granulocytes/100 WBC (Bld) 0.3 % 0.0-0.[address] [facility] Laboratory - Microbiology an d Antimicrobial susceptibilityon 01-19-2024 SARS-CoV-2 (COVID-19) RNA JOSELUIS+probe Ql (Unsp spec) Negative NEGATIVE [facility] Comment on above: This test [...] diagnosis of Covid-19 under section 564(b)(1) of [facility] [place] 360bbb-3(b)(1), unless the declaration isterminated or authorization is revoked sooner. Leukocytes [#/volume] correc shant for nucleated erythrocytes in Blood by Automated counon 01-19-2024 WBC corrected for nucl RBC Auto (Bld) [#/Vol] 12.6 10 3/uL High 4.0-11.[address] [facility] WBC corrected for nucl RBC Auto (Bld) [#/Vol] Leukocytes [#/volume] corrected for nucleated erythrocytes in Blood by Automated coun High 4.0-11.[address] [facility] Lymphocytes Auto (Bld) [#/Vo l]on 01-19-2024 Lymphocytes (Bld) [#/Vol] 4.4 10 3/uL High 1.2-3.[address] [facility] Lymphocytes (Bld) [#/Vol] Lymphocytes [#/volume] in Blood by Automated count High 1.2-3.[address] [facility] Lymphocytes/100 WBC Auto (Bl d)on 01-19-2024 Lymphocytes/100 WBC (Bld) 35.0 % 20.5-60.[address] [facility] Lymphocytes/100 WBC (Bld) Lymphocytes/100 leukocytes in Blood by Automated count 20.5-60.[address] [facility] MCH Auto (RBC) [Entitic mass ]on 01-19-2024 MCH (RBC) [Entitic mass] 29.4 pg 26.7-34.[address] [facility] MCH (RBC) [Entitic mass] MCH [Entitic mass] by Automated count 26.7-34.[address] [facility] MCHC Auto (RBC) [Mass/Vol]on 01-19-2024 MCHC (RBC) [Mass/Vol] 32.4 g/dL 29.9-35.[address] [facility] MCHC (RBC) [Mass/Vol] MCHC [Mass/volume] by Automated count 29.9-35.[address] [facility] MCV Auto (RBC) [Entitic vol] on 01-19-2024 MCV (RBC) [Entitic vol] 90.6 fL 81.0-99.[address] [facility] MCV (RBC) [Entitic vol] MCV [Entitic volume] by Automated count 81.0-99.[address] [facility] Monocytes Auto (Bld) [#/Vol] on 01-19-2024 Monocytes (Bld) [#/Vol] 1.2 10 3/uL High 0.3-0.[address] [facility] Monocytes (Bld) [#/Vol] Automated blood monocyte count High 0.3-0.[address] [facility] Monocytes/100 WBC Auto (Bld) on 01-19-2024 Monocytes/100 WBC (Bld) 9.5 % 1.7-12.[address] [facility] Monocytes/100 WBC (Bld) Automated monocyte % 1.7-12.[address] [facility] Neutrophils Auto (Bld) [#/Vo l]on 01-19-2024 Neutrophils (Bld) [#/Vol] 6.4 10 3/uL 1.4-6.[address] [facility] Neutrophils (Bld) [#/Vol] Neutrophils [#/volume] in Blood by Automated count 1.4-6.[address] [facility] Neutrophils/100 WBC Auto (Bl d)on 01-19-2024 Neutrophils/100 WBC (Bld) 50.7 % 43.0-75.[address] [facility] Neutrophils/100 WBC (Bld) Automated neutrophil % 43.0-75.[address] [facility] No Panel Informationon 01-18 Bedside Influenza Type A Antigen Negative [facility] Comment on above: Negative for Flu A p rotein antigen. Infection due to Flu Acannot be ruled out. Flu A antigen in the sample may bebelow the detection limit of the test. Bedside Influenza Type B Antigen Negative [facility] Comment on above: Negative for Flu B p rotein antigen. Infection due to Flu Bcannot be ruled out. Flu B antigen in the sample may bebelow the detection limit of the test. Eosinophils # (Auto) 0.5 10 3/uL 0.0-0.[address] [facility] Immature Granulocyte # (Auto) 0.04 10 3/uL High 0.00-0.[address] [facility] Troponin I High Sensitivity 5.8 pg/mL 4.0-51.[address] [facility] Comment on above: CUT-OFF POINTS [...] vol] 9.3 fL Low 9.5-13.[address] [facility] Platelet mean volume (Bld) [Entitic vol] Platelet mean volume [Entitic volume] in Blood by Automated count Low 9.5-13.[address] [facility] Platelets Auto (Bld) [#/Vol] on 01-19-2024 Platelets (Bld) [#/Vol] 304 10 3/uL 150-[address] [facility] Platelets (Bld) [#/Vol] Platelets [#/volume] in Blood by Automated count 150-[address] [facility] RBC Auto (Bld) [#/Vol]on RBC (Bld) [#/Vol] 4.36 10 6/uL 4.20-5.40 [facility] RBC (Bld) [#/Vol] Erythrocytes [#/volu me] in Blood by Automated count .20-5.[address] [facility] Serum or plasma anion gap de terminationon 01-19-2024 Anion gap [Moles/Vol] 8.3 mmol/L [facility] Anion gap [Moles/Vol] Serum or plasma anion gap determination [facility] Borrelia burgdorferi IgG+IgM Ab [Presence] in Serum by Immunoassayon 10-13-2023 B. burgdorferi IgG+IgM IA Ql (S) Negative Negative [facility] Comment on above: Lyme antibodies not detected. Reflex testing is notindicated.No laboratory evidence of infection with B. burgdorferi(Lyme disease). Negative results may occur in patientsrecently infected (less than or equal to 14 days) with B.burgdorferi. If recent infection is suspected, repeattesting on a new sample collected in 7 to 14 days isrecommended.Performed at: [facility] [id number] Director: Jeovany Bazan PhD, Phone: [phone] General Surgery Office/Clini c Noteon 02-21-2022 General [...] Primary malignant neoplasm of lung: Father. Normal [facility] Comment on above: Result Comment: Elec [...] Tobacco user Very low density lipoprotinemia Normal [facility] Reminderson 02-01-2022 Reminders - From: Sushma Shell LPN To: N - Clinical; Sent: 02/01/2022 16:18:52 EDT Show up: 04/12/2022 07:00:00 EST Subject: EGD recall Due Date/Time: 05/04/2022 07:00:00 EST Reminder/Recall Patient is due to repeat EGD 05/04/2022 due to gastric ulcer. Normal [facility] Outside Colonoscopyon 2021 Outside Colonoscopy [id number]#[id number]:127 Normal [facility] Pathology Noteon 01-14-2022 Pathology Note [id number]#[id number]:127 Normal [facility] Reminderson 01-14-2022 Reminders - From: Sushma Shell LPN To: N - Clinical; Sent: 01/14/2022 08:07:35 EDT Show up: 12/14/2031 07:00:00 EDT Subject: colonoscopy recall Due Date/Time: 01/13/2032 07:00:00 EDT Reminder/Recall Patient is due for screening colonoscopy 01/13/2032. Normal [facility] Pre-Certification Formon Pre-Certification Form [id number]#[id number]:127 [facility] Lab Reportson 01-11-2022 Lab Reports [id number]#[id number]:127 Normal [facility] SARS-CoV-2 (COVID-19) RNA JOSELUIS+probe Ql (Unsp spec) Not detected Normal NOT DETECTED [facility] Comment on above: Result Comment: This test is not yet approved or cleared by the [place] FDA. When there are no FDA-approved or cleared tests available, and other criteria are met, FDA can make tests available under an emergency access mechanism called an Emergency Use Authorization (EUA). The EUA for this test is supported by the Community Relations Police Lieutenant of Health and Human Service's (HHS's) declaration [...] consistent with SARS-CoV-2. Performed By: #### C [facility] #### [facility] [address] [place] [address] Dr. Pablo Sheth Physician Orderon 12-23-2021 Physician Order [id number]:127 Normal [facility] Ambulatory Visit Summaryon 0 12-22-2021 Ambulatory [...] Tobacco user Very low density lipoprotinemia Normal [facility] CBC AUTO DIFFon 12-17-2021 BASO # 0.1 103/ul Normal 0.0-0.1 [facility] Comment on above: Performed By: #### D ATCBC #### [facility] [address] [place] [address] [address] Pablo Sheth Basophils/100 WBC (Bld) 0.4 % Normal 0.2-2.0 [facility] Comment on above: Performed By: #### D ATCBC #### [facility] [address] [place] [address] [address] Pablo Sheth EO # 0.3 103/ul Normal 0.0-0.7 [facility] Comment on above: Performed By: #### D ATCBC #### [facility] [address] [place] [address] [address] Pablo Sheth Eosinophils/100 WBC (Bld) 2.4 % Normal 0.9-7.0 [facility] Comment on above: Performed By: #### D ATCBC #### [facility] [address] [place] [address] Dr. Pablo Sheth Erythrocyte distribution width (RBC) [Ratio] 13.2 % Normal 11.0-15.0 [facility] Comment on above: Performed By: #### D ATCBC #### [facility] [address] [place] [address] Dr. Pablo Sheth Hematocrit (Bld) [Volume fraction] 42.6 % Normal 36.0-48.0 [facility] Comment on above: Performed By: #### D ATCBC #### [facility] [address] [place] [address] Dr. Pablo Sheth Hemoglobin (Bld) [Mass/Vol] 13.7 g/dL Normal 12.0-16.0 [facility] Comment on above: Performed By: #### D ATCBC #### [facility] [address] [place] [address] Dr. Pablo Sheth IG # 0.05 10e3/ul Critically high 0.00-0.03 [facility] Comment on above: Performed By: #### D ATCBC #### [facility] [address] [place] [address] Dr. Pablo Sheth IG % 0.4 % Normal 0.0-0.5 [facility] Comment on above: Performed By: #### D ATCBC #### [facility] [address] [place] [address] Dr. Pablo Sheth LYMPH # 2.8 103/ul Normal 1.2-3.8 [facility] Comment on above: Performed By: #### D ATCBC #### [facility] [address] [place] [address] Dr. Pablo Sheth Lymphocytes/100 WBC (Bld) 20.9 % Normal 20.5-60.0 [facility] Comment on above: Performed By: #### D ATCBC #### [facility] [address] [place] [address] Dr. Pablo Sheth MCH (RBC) [Entitic mass] 29.2 pg Normal 26.7-34.0 [facility] Comment on above: Performed By: #### D ATCBC #### [facility] [address] [place] [address] [address] Pablo Sheth MCHC (RBC) [Mass/Vol] 32.2 g/dL Normal 29.9-35.2 [facility] Comment on above: Performed By: #### D ATCBC #### [facility] [address] [place] [address] Dr. Pablo Sheth MCV (RBC) [Entitic vol] 90.8 fL Normal 81.0-99.0 [facility] Comment on above: Performed By: #### D ATCBC #### [facility] [address] [place] [address] Dr. Pablo Sheth MONO # 1.0 103/ul Critically high 0.3-0.8 [facility] Comment on above: Performed By: #### D ATCBC #### [facility] [address] [place] [address] Dr. Pablo Sheth Monocytes/100 WBC (Bld) 7.5 % Normal 1.7-12.0 [facility] Comment on above: Performed By: #### D ATCBC #### [facility] [address] [place] [address] Dr. Pablo Sheth NEUT # 9.2 103/ul Critically high 1.4-6.5 [facility] Comment on above: Performed By: #### D ATCBC #### [facility] [address] [place] [address] Dr. Pablo Sheth Neutrophils/100 WBC (Bld) 68.4 % Normal 43.0-75.0 [facility] Comment on above: Performed By: #### D ATCBC #### [facility] [address] [place] [address] Dr. Pablo Sheth Platelet mean volume (Bld) [Entitic vol] 9.3 fL Critically low 9.5-13.5 [facility] Comment on above: Performed By: #### D ATCBC #### [facility] [address] [place] [address] Dr. Pablo Sheth PLT 313 103/ul Normal 150-450 [facility] Comment on above: Performed By: #### D ATCBC #### [facility] [address] [place] [address] Dr. Pablo Sheth RBC 4.69 106/ul Normal 4.20-5.40 [facility] Comment on above: Performed By: #### D ATCBC #### [facility] [address] [place] [address] Dr. Pablo Sheth WBC 13.4 103/ul Critically high 4.0-11.0 [facility] Comment on above: Performed By: #### D ATCBC #### [facility] [address] [place] [address] Dr. Pablo Sheth BERKLEY - TSHon 12-17-2021 TSH 1.241 uIU/mL Normal 0.358-3.740 [facility] Comment on above: Performed By: #### D JOSE J DATBMP #### [facility] [address] [place] [address] Dr. Pablo Sheth TSH RANGE SEE BELOW Normal [facility] Comment on above: Result Comment: <0.3 4 UIU/ml HYPERTHYROID 0.34-5.60 UIU/ml EUTHYROID >5.60 UIU/ml HYPOTHYROID Performed By: #### D JOSE J DATBMP #### [facility] [address] [place] [address] Dr. Pablo Sheth BERKLEY- BMP WITH LIPIDon 2021 Anion gap [Moles/Vol] 11.9 mmol/L Normal [facility] Comment on above: Performed By: #### D JOSE J DATBMP #### [facility] [address] [place] [address] Dr. Pablo Sheth Calcium [Mass/Vol] 9.1 mg/dL Normal 8.5-10.1 [facility] Comment on above: Performed By: #### D ATTTONYA DATBMP #### [facility] [address] [place] [address] Dr. Pablo Sheth Chloride [Moles/Vol] 104 mmol/L Normal 98-107 [facility] Comment on above: Performed By: #### D ATTTONYA DATBMP #### [facility] [address] [place] [address] [address] Pablo Sheth Cholesterol [Mass/Vol] 207 mg/dL Critically high <=200 [facility] Comment on above: Performed By: #### D ATTSH, DATBMP #### [facility] [address] [place] [address] [address] Pablo Sheth Cholesterol in HDL [Mass/Vol] 52 mg/dL Normal 40-60 [facility] Comment on above: Performed By: #### D ATTSH, DATBMP #### [facility] [address] [address] [address] Pablo Sheth Cholesterol in LDL [Mass/Vol] 141.4 mg/dL Normal [facility] Comment on above: Performed By: #### D ATTSH, DATBMP #### [facility] [address] [address] [address] Pablo Sheth CO2 [Moles/Vol] 29.3 mmol/L Normal 21.0-32.0 [facility] Comment on above: Performed By: #### D ATTSH, DATBMP #### [facility] [address] [address] [address] Pablo Sheth Creatinine [Mass/Vol] 0.77 mg/dL Normal 0.55-1.02 [facility] Comment on above: Performed By: #### D ATTSH, DATBMP #### [facility] [address] [address] [address] Pablo Sheth EGFR-AF CROATIAN >60 Normal >=60 [facility] Comment on above: Performed By: #### D ATTSH, DATBMP #### [facility] [address] [address] [address] Pablo Sheth EGFR-NON AF CROATIAN >60 Normal >=60 [facility] Comment on above: Performed By: #### D ATTSH, DATBMP #### [facility] [address] [address] [address] Pablo Sheth Glucose [Mass/Vol] 109 mg/dL Critically high 74-[address] [facility] Comment on above: Performed By: #### D ATTSH, DATBMP #### [facility] [address] [address] [address] Pablo Sheth HDL NORMAL > or = 60 mg/dl - LO W CARDIOVASCULAR RISK <40 mg/dl - HIGH CARDIOVASCULAR RISK Normal [facility] Comment on above: Performed By: #### D JOSE J DATBMP #### [facility] [address] [address] [address] Pablo Sheth LDL CALC NORMAL SEE BELOW Normal [facility] Comment on above: Result Comment: <100 mg/dl OPTIMAL 100 - 129 mg/dl NEAR OR ABOVE OPTIMAL 130 - 159 mg/dl BORDERLINE HIGH 160 - 189 mg/dl HIGH >190 mg/dl VERY HIGH Performed By: #### D JOSE J DATBMP #### [facility] [address] [place] [address] Dr. Pabol Sheth Potassium [Moles/Vol] 4.2 mmol/L Normal 3.5-5.1 [facility] Comment on above: Performed By: #### D JOSE J DATBMP #### [facility] [address] [address] [address] Pablo Sheth Sodium [Moles/Vol] 141 mmol/L Normal 136-145 [facility] Comment on above: Performed By: #### D JOSE J DATBMP #### [facility] [address] [address] [address] Pablo Sheth Triglyceride [Mass/Vol] 68 mg/dL Normal <=150 [facility] Comment on above: Performed By: #### D JOSE J DATBMP #### [facility] [address] [address] [address] Pablo Sheth Urea nitrogen [Mass/Vol] 26.0 mg/dL Critically high 7.0-18.0 [facility] Comment on above: Performed By: #### D JOSE J DATBMP #### [facility] [address] [place] [address] Dr. Pablo Sheth Urea nitrogen/Creatinin e [Mass ratio] 33.8 mg/mg Normal [facility] Comment on above: Performed By: #### D JOSE J DATBMP #### [facility] [address] [address] [address] Pablo Sheth VLDL CALC 13.6 mg/dL Normal [facility] Comment on above: Performed By: #### D TENZIN LUX #### [facility] [address] [place], [place] [address] Dr. Pablo Sheth Physician Referralon 022 Physician Referral [id number] Normal [facility] Vital Signs Date Time Vital Sign Value Performing Clinician Faci lity 04-15-2024 15:14-0500 Body height 170.18 cm Celia Garrison MD Work Phone: [facility] 04-15-2024 15:14-0500 Body mass index (BMI) [Ratio] 27.7 kg/m2 Celia Garrison MD Work Phone: [facility] 04-15-2024 15:14-0500 Body temperature 98.4 [degF] Celia Garrison MD Work Phone: [facility] 04-15-2024 15:14-0500 Body weight 80.28 kg Celia Garrison MD Work Phone: [facility] 04-15-2024 15:14-0500 Diastolic blood pressure 82 mm[Hg] Celia Garrison MD Work Phone: [facility] 04-15-2024 15:14-0500 Heart rate 83 /min Celia Garrison MD Work Phone: [facility] 04-15-2024 15:14-0500 Respiratory rate 20 /min Celia Garrison MD Work Phone: [facility] 04-15-2024 15:14-0500 SaO2% (BldA) [Mass fraction] 96 % Celia Garrison MD Work Phone: [facility] 04-15-2024 15:14-0500 Systolic blood pressure 128 mm[Hg] Celia Garrison MD Work Phone: [facility] 03-29-2024 08:56-0500 Body height 170.18 cm Celia Garrison MD Work Phone: [facility] 03-29-2024 08:56-0500 Body mass index (BMI) [Ratio] 27.2 kg/m2 Celia Garrison MD Work Phone: [facility] 03-29-2024 08:56-0500 Body weight 78.92 kg Celia Garrison MD Work Phone: [facility] 03-29-2024 08:56-0500 Diastolic blood pressure 86 mm[Hg] Celia Garrison MD Work Phone: [facility] 03-29-2024 08:56-0500 Heart rate 91 /min Celia Garrison MD Work Phone: [facility] 03-29-2024 08:56-0500 SaO2% (BldA) [Mass fraction] 95 % Celia Garrison MD Work Phone: [facility] 03-29-2024 08:56-0500 Systolic blood pressure 124 mm[Hg] Celia Garrison MD Work Phone: [facility] 03-11-2024 15:29-0500 Body height 170.18 cm Celia Garrison MD Work Phone: [facility] 03-11-2024 15:29-0500 Body mass index (BMI) [Ratio] 27.8 kg/m2 Celia Garrison MD Work Phone: [facility] 03-11-2024 15:29-0500 Body temperature 97.6 [degF] Celia Garrison MD Work Phone: [facility] 03-11-2024 15:29-0500 Body weight 80.73 kg Celia Garrison MD Work Phone: [facility] 03-11-2024 15:29-0500 Diastolic blood pressure 80 mm[Hg] Celia Garrison MD Work Phone: [facility] 03-11-2024 15:29-0500 Heart rate 82 /min Celia Garrison MD Work Phone: [facility] 03-11-2024 15:29-0500 Respiratory rate 20 /min Celia Garrison MD Work Phone: [facility] 03-11-2024 15:29-0500 SaO2% (BldA) [Mass fraction] 98 % Celia Garrison MD Work Phone: [facility] 03-11-2024 15:29-0500 Systolic blood pressure 134 mm[Hg] Celia Garrison MD Work Phone: [facility] 02-08-2024 13:55-0400 Body height 170.18 cm MD Celia Garrison Work Phone: [facility] 02-08-2024 13:55-0400 Body mass index (BMI) [Ratio] 27.9 kg/m2 MD Celia Garrison Work Phone: [facility] 02-08-2024 13:55-0400 Body weight 80.9 kg MD Celia Garrison Work Phone: [facility] 02-08-2024 13:55-0400 Diastolic blood pressure 78 mm[Hg] MD Celia Garrison Work Phone: [facility] 02-08-2024 13:55-0400 Heart rate 74 /min MD Celia Garrison Work Phone: [facility] 02-08-2024 13:55-0400 SaO2% (BldA) [Mass fraction] 96 % MD Celia Garrison Work Phone: [facility] 02-08-2024 13:55-0400 Systolic blood pressure 110 mm[Hg] MD Celia Garrison Work Phone: [facility] 01-24-2024 14:35-0400 Body height 170.18 cm MD Celia Garrison Work Phone: [facility] 01-24-2024 14:35-0400 Body mass index (BMI) [Ratio] 28.3 kg/m2 MD Celia Garrison Work Phone: [facility] 01-24-2024 14:35-0400 Body weight 82.21 kg MD Celia Garrison Work Phone: [facility] 01-09-2024 15:17-0400 Body height 167.64 cm [facility] 01-09-2024 15:17-0400 Body mass index (BMI) [Ratio] 28.2 kg/m2 [facility] 01-09-2024 15:17-0400 Body weight 79.37 kg [facility] 01-09-2024 15:17-0400 Diastolic blood pressure 91 mm[Hg] [facility] 01-09-2024 15:17-0400 Heart rate 76 /min [facility] 01-09-2024 15:17-0400 SaO2% (BldA) [Mass fraction] 97 % [facility] 01-09-2024 15:17-0400 Systolic blood pressure 135 mm[Hg] [facility] 11-01-2023 08:57-0400 Body height 167.64 cm [facility] 11-01-2023 08:57-0400 Body mass index (BMI) [Ratio] 28.2 kg/m2 [facility] 11-01-2023 08:57-0400 Body weight 79.37 kg [facility] 11-01-2023 08:57-0400 Diastolic blood pressure 90 mm[Hg] [facility] 11-01-2023 08:57-0400 Heart rate 63 /min [facility] 11-01-2023 08:57-0400 Systolic blood pressure 136 mm[Hg] [facility] 10-13-2023 09:19-0400 Body height 167.64 cm [facility] 10-13-2023 09:19-0400 Body mass index (BMI) [Ratio] 28 kg/m2 [facility] 10-13-2023 09:19-0400 Body weight 78.92 kg [facility] 10-13-2023 09:19-0400 Diastolic blood pressure 76 mm[Hg] [facility] 10-13-2023 09:19-0400 Heart rate 78 /min [facility] 10-13-2023 09:19-0400 SaO2% (BldA) [Mass fraction] 98 % [facility] 10-13-2023 09:19-0400 Systolic blood pressure 118 mm[Hg] [facility] 07-31-2023 10:09-0400 Body height 167.64 cm [facility] 07-31-2023 10:09-0400 Body mass index (BMI) [Ratio] 28.8 kg/m2 [facility] 07-31-2023 10:09-0400 Body weight 80.9 kg [facility] 07-31-2023 10:09-0400 Diastolic blood pressure 89 mm[Hg] [facility] 07-31-2023 10:09-0400 Heart rate 74 /min [facility] 07-31-2023 10:09-0400 Systolic blood pressure 138 mm[Hg] [facility] 12-22-2021 14:20-0400 Blood Pressure Location Mihaela CASAS [facility] [place] 12-22-2021 14:20-0400 Diastolic blood pressure 80 mm[Hg] Mihaela CASAS [facility] [place] 12-22-2021 14:20-0400 Heart rate 72 /min Mihaela CASAS [facility] [place] 12-22-2021 14:20-0400 Respiratory rate 16 /min Mihaela CASAS [facility] [place] 12-22-2021 14:20-0400 Systolic blood pressure 116 mm[Hg] Mihaela CASAS [facility] [place] Encounters Encounter Date Encounter Type Care Provider Facility Start: 04-15-2024 End: 04-15-2024 ambulatory Celia Garrison MD Work Phone: [facility] Work Phone: Start: 04-15-2024 End: 04-15-2024 Patient encounter procedure Celia Garrison MD Work Phone: [facility] Work Phone: Start: 04-01-2024 End: 04-01-2024 Patient encounter procedure Kane Perez DO Work Phone: [facility] Comment on above: Lumbosacral radiculo bakari (Primary Dx); Numbness and tingling Start: 04-01-2024 End: 04-01-2024 ambulatory KAEN PEREZ Not Available Start: 04-01-2024 End: 04-01-2024 Bamboo flowsheet Kane Perez DO Work Phone: [facility] Start: 04-01-2024 End: 04-01-2024 Bamboo flowsheet Kane Perez DO Work Phone: [facility] Start: 03-29-2024 End: 03-29-2024 Patient encounter procedure Celia Garrison MD Work Phone: [facility] Work Phone: Start: 03-25-2024 End: 03-25-2024 ambulatory Ofelia Arceo PA-C Facility:[facility] [place] [facility] Start: 03-21-2024 Non-patient / Non-visit Celia Garrison MD Work Phone: [facility] Work Phone: Start: 03-11-2024 End: 03-11-2024 Patient encounter procedure Celia Garrison MD Work Phone: [facility] Work Phone: Start: 03-04-2024 Non-patient / Non-visit Celia Garrison MD Work Phone: [facility] Work Phone: Start: 03-04-2024 End: 03-04-2024 Patient encounter procedure Celia Garrison MD Work Phone: [facility] Work Phone: Start: 03-04-2024 End: 03-04-2024 ambulatory Celia Garrison Facility:[facility] Start: 02-23-2024 End: 02-23-2024 ambulatory [facility] Facility:[facility] Start: 02-19-2024 End: 02-19-2024 ambulatory [facility] Facility:[facility] Start: 02-13-2024 End: 02-13-2024 ambulatory [facility] Facility:[facility] Start: 02-08-2024 End: 02-08-2024 ambulatory MD Celia Garrison Work Phone: [facility] Work Phone: Start: 02-08-2024 End: 02-08-2024 Patient encounter procedure MD Celia Garrison Work Phone: [facility] Work Phone: Start: 02-07-2024 Non-patient / Non-visit MD Mala Garrison Work Phone: [facility] Work Phone: Start: 02-01-2024 Non-patient / Non-visit Celia Garrison MD Work Phone: [facility] Work Phone: Start: 01-24-2024 End: 01-24-2024 ambulatory MD Celia Garrison Work Phone: [facility] Work Phone: Start: 01-24-2024 End: 01-24-2024 Patient encounter procedure MD Celia Garrison Work Phone: [facility] Physician [facility] Work Phone: Start: 01-24-2024 End: 01-24-2024 Patient encounter procedure MD Celia Garrison Work Phone: [facility] Start: 01-24-2024 End: 01-24-2024 ambulatory MD Celia Garrison Work Phone: [facility] Work Phone: Start: 01-19-2024 Non-patient / Non-visit MD Mala Garrison Work Phone: [facility] Work Phone: Start: 01-19-2024 Non-patient / Non-visit MD Mala Garrison Work Phone: [facility] Work Phone: Start: 01-09-2024 End: 01-09-2024 ambulatory [facility] Work Phone: Start: 01-09-2024 End: 01-09-2024 Patient encounter procedure [facility] Physician [facility] Work Phone: Start: 11-01-2023 End: 11-01-2023 ambulatory [facility] Work Phone: Start: 11-01-2023 End: 11-01-2023 Patient encounter procedure [facility] Physician [facility] Work Phone: Start: 10-13-2023 End: 10-13-2023 ambulatory [facility] Work Phone: Start: 10-13-2023 End: 10-13-2023 Patient encounter procedure [facility] Physician [facility] Work Phone: Start: 07-31-2023 End: 07-31-2023 ambulatory [facility] Work Phone: Start: 07-31-2023 End: 07-31-2023 Patient encounter procedure [facility] Physician [facility] Work Phone: Start: 05-26-2023 Non-patient / Non-visit [facility] Physician [facility] Work Phone: Start: 02-01-2022 End: 02-02-2022 ambulatory Mihaela CASAS Facility:[facility] Start: 02-01-2022 End: 02-01-2022 Patient encounter procedure Mihaela R NILL [facility] [place] Start: 01-13-2022 Encounter for preprocedural laboratory examination DR MIHAELA CASAS [facility] Start: 01-12-2022 End: 01-13-2022 ambulatory Mihaela CASAS Facility:[id number] Start: 01-10-2022 End: 01-11-[address] MIHAELA CASAS Facility:[facility] Start: 01-10-2022 End: 01-11-2022 Encounter for preprocedural laboratory examination DR MIHAELA CASAS Facility: Start: 12-22-2021 End: 12-23-2021 ambulatory Mihaela CASAS Facility:[facility] Start: 12-22-2021 End: 12-22-2021 Patient encounter procedure Mihaela CASAS [facility] Start: 12-17-2021 End: 12-18-2021 ambulatory CELIA GARRISON PROVIDER Facility:[facility] Procedures Date Procedure Procedure Detail Performing Clinician Start: 04-01-2024 End: 04-01-2024 Needle emg ea extremty w/paraspinl area complete Kane Perez DO Work Phone: Start: 01-24-2024 X-ray of both knees, three views MD Anoop Garrison Work Phone: Start: 01-12-2022 Colonoscopy Mihaela NILL Start: 01-12-2022 Esophagogastroduodenoscopy Mihaela NILL Bilateral oophorectomy Ebenezer shiv NILL Colonoscopy Mihaela NILL Decompression of thoracic spine Mihaela NILL Discectomy of spine Mihaela NILL Comment on above: T12-L1 T12-L1 Esophagogastroduodenoscopy M ichcarrington NILL Excision of bunion Mihaela HALL Repair of vaginal tear Ebenezer CASAS Tonsillectomy Mihaela CASAS Plan of Treatment Date Care Activity Detail Author Start: 04-05-2024 Patient referral [facility] Work Phone: Start: 04-01-2024 End: 04-01-2024 Patient encounter procedure 04/01/2024 3:00 PM EST Procedure [facility] [address] [place] [address] Kane Perez, [address] [place] [address] Arrived [facility] Comment on above: Arrived Start: 01-24-2024 X-ray of both knees, three views XR knee BI 3V - NOT FOR ER USE [facility] Start: 01-24-2024 XR Knee - bilateral [address] [facility] Start: 01-10-2024 Patient referral [facility] Work Phone: CT Unspecified body region [facility] CT Unspecified body region [facility] DXA Skeletal system.axial Views for bone density [facility] Patient Education Low back pain in adults [facility] Work Phone: Patient referral [facility] Work Phone: US Lower extremity v ein - right [facility] US Thyroid gland [facility] Immunizations Immunization Date Immunization Notes Care Provider Fa cility 03-11-2024 diphtheria, tetanus toxoids and acellular pertussis vaccine, unspecified formulation Celia Garrison MD Work Phone: [facility] 03-29-2021 COVID-19 mRNA, Comirnaty (Pfizer) [facility] 08-11-2020 COVID-19 mRNA, Comirnaty (Pfizer) [facility] 07-21-2020 COVID-19 mRNA, Comirnaty (Pfizer) [facility] 10-07-2018 diphtheria, tetanus toxoids and acellular pertussis vaccine, unspecified formulation [facility] 02-05-2014 tetanus and diphther ia toxoids, adsorbed, preservative free, for adult use (5 Lf of tetanus toxoid and 2 Lf of diphtheria toxoid) [facility] Payers Date Payer Category Payer Medicare [id number] 2024 Medicare 2023 Unknown 2021 Unknown [id number] 1960 Self-pay [id number] 1960 Unknown [id number] 1959 Unknown [id number] [id number] 1959 Unknown [id number] [id number] 1959 Unknown [id number] [id number] 1959 Unknown [id number] [id number] 1959 Unknown [id number] [id number] 1959 Unknown [id number] [id number] 1959 Unknown [id number] [id number] 1959 Unknown [id number] [id number] 1959 Unknown [id number] [id number] 1959 Unknown [id number] [id number] 1959 Unknown [id number] [id number] Private Health Insurance [employer] [facility] PFFS G [id number] Unknown [id number] Unknown [id number] Unknown MMO [employer] [id number] Unknown Regular Insurance [id number] Social History Date Type Detail Facility Start: 12-22-2021 Heavy tobacco smoker (finding) [facility] [place] Never [facility] [place] Female [facility] [place] Start: 07-31-2023 End: 04-15-2024 Tobacco smoking status NHIS Smoker (finding) [facility] Start: 1960 Sex Assigned At Female F [facility] Tobacco smoking status [facility] Tobacco smoking consumption unknown [facility] Healthcare Start: 1960 Sex assigned at Not on file N [facility] Start: 04-15-2024 Sex Female (finding) [facility] Functional Status Date Assessment Result Facility 12-22-2021 N/A [facility] [place] Clinical Notes 12-22-2021 to 04-01-2024 Daniel Dougherty, ARRT - 04/01/2024 3:00 PM EST Note Date & Type Note Facility 04-01-2024 History of Present illness Narrative Images from the original note were not included. 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 documented in this encounter [facility] 02-23-2024 Note Patient Education Ma terials Name: Cristine Manley Current Date: 02/23/2024 07:10:10 [place] : 1960 The following sheet(s) are the [...] have had today was called a (an) ___. If you experience sudden onset of extreme [...] for continued care. Thank you for choosing [facility] for your care. [facility] 01-24-2024 Evaluation note Diagnosis Onset Date Resolution Bilateral knee pain acute Octob er 2023 2:05pm Primary osteoarthritis of both knees acute January 23 2:05pm COPD exacerbation acute February 08, 2024 1:31pm Lumbar radiculopathy, chronic acute February 07 1:31pm Menopause acute February 08, 2024 1:31pm Rib fracture acute January 1:31pm Cigarette nicotine dependence with nicotine-induced disorder acute March 11 3:14pm Encounter for immunization acute March 11 3:14pm Encounter for screening for lung cancer acute March 11 3:14pm Moderate persistent asthma, uncomplicated acute March 112023 3:14pm Lumbar radiculopathy, chronic acute March 29 8:45am Pain in posterior right lower extremity acute March 29 8:45am Right thyroid nodule acute [id number] 8:45am Cigarette nicotine dependence with nicotine-induced disorder acute April 15 3:12pm Encounter for screening for lung cancer acute April 15 3:12pm Moderate persistent asthma, uncomplicated acute April 3:12pm [facility] Work Phone: [phone] 278-710010-05-2022 NoteOPERATIVE NOTE OPERATION DATE: 01/12/2022 PREOPERATIVE DIAGNOSIS: Epigastric [...] pathology of the polyp. CC: Celia Garrison M.D.[id number] NoteChief Complaint consultation for epigastric pain HPI Staff [...] change in bms or blood in stools, nomelena; last EGD/colonoscopy 2004; abdominal operations significant for [...] swallowing difficulties, no hearing loss, no ear infection(s),no nose bleeds. Cardiovascular: normal blood pressure, no [...] swallowing difficulties, no hearing loss, no ear infection(s),no nose bleeds. Cardiovascular: normal blood pressure, no [...] Chronic obstructive pulmonary dise (more content not included)...[facility]Result Comment: Electronically Signed By: RAJINDER TAVERAS, Mihaela Trujillo\Date and Time Signed: 12/22/21 17:34 EDTEvaluation + Plan note No data available for this section [facility] [place] Evaluation note* Diagnosis Onset Date Resolution Status Lumbar radiculopathy, chronic acute [facility] Work Phone: Evaluation note* Diagnosis Onset Date Resolution Status Lumbar radiculopathy, chronic acute Headache acute Joint pain acute Tick bite acute [facility] Work Phone: Evaluation note* Diagnosis Onset Date Resolution Status Headache acute Joint pain acute Tick bite acute Chronic obstructive pulmonary disease, unspecified acute Lumbar radiculopathy, chronic acute [facility] Work Phone: Evaluation note* Diagnosis Onset Date Resolution Status Chronic obstructive pulmonary disease, unspecified acute Lumbar radiculopathy, chronic acute Bilateral knee pain acute COPD exacerbation acute Lumbar pain acute Lumbar radiculopathy, chronic acute Bilateral knee pain acute Primary osteoarthritis of both knees acute [facility] Work Phone: Evaluation note* Diagnosis Onset Date Resolution Status Bilateral knee pain acute COPD exacerbation acute Lumbar pain acute Lumbar radiculopathy, chronic acute Bilateral knee pain acute Primary osteoarthritis of both knees acute Menopause acute [facility] Work Phone: Evaluation note* Diagnosis Lumbosacral radiculopathy- Primary Thoracic or lumbosacral neuritis or radiculitis, unspecified Numbness and tingling Disturbance of skin sensation documented [facility] No data available for this section [facility] [place] Progress note No data available for this section [facility] [place] Reason for visit Narrative* Other Medical (Routine) - Closed Specialty Diagnoses / Procedures Referred By Contac t Referred To Contact Neurology Diagnoses Neuralgia and neuritis, unspecified Procedures MN NEEDLE EMG EA EXTREMTY W/PARASPINL AREA COMPLETE MN NERVE CONDUCTION STUDIES 9-10 STUDIES Ofelia Arceo PA-C [address] [place] [address] Phone: tel: fax: Cecil Fields MD [address] [place] [address] Phone: tel: fax: Referral ID Status Reason Start Date Expiration Date V isits Requested Visits Authorized [id number] Closed Perform Procedure 03/27/2024 09/23/2024 1 1 [facility] Healthcare Summary Purpose Family History Relationship Condition Age at Onset Recorded Date/T tyron Not Specified Diabetes mellitus Unknown Hypertension Unknown father Malignant neoplasm Unknown Relationship Condition Age at Onset Recorded Date/T tyron mother Diabetes mellitus Unknown Hypertension Unknown father Malignant neoplasm Unknown Advance Directives Advance Directive Response Recorded Date/ Time Advance Directives No July 30, 024 9:55am Advance Directive Response Recorded Date/ Time Advance Directives No March 11, 2024 4:03pm Chief Complaint and Reason for Visit Chief [...] pain Primary osteoarthritis of both knees Menopause Chief Complaint Admit Date M25.561 - Pain in right knee January 6:54am CONSULT DR. GARRISON BILAT KNEE PAIN, NX Oc tober 2023 2:05pm CC Adult Risk Stratification January 3:05pm Fracture f/u/Discuss-HIGH RISK January 102023 1:31pm J44.1 March 04, 2024 2:34pm J44.1 March 04, 2024 6:43pm Ref: Dr. 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 COPD April 15 3:12pm Reason for Visit Admit Date Bilateral knee pain January 24, 2024 2 :05pm Primary osteoarthritis of both knees Oct min 2023 2:05pm COPD exacerbation February 08, 2024 1 :31pm Lumbar radiculopathy, chronic February 072023 1:31pm Menopause February 08, 2024 1 :31pm Rib fracture February 08, 2024 1 :31pm Cigarette nicotine dependenc e with nicotine-induced disorder March 11, 2024 3:14pm Encounter for immunization March 11, 2024 3:14pm Encounter for screening for lung cancer March 11, 2024 3:14pm Moderate persistent asthma, uncomplicate d March 11, 2024 3:14pm Lumbar radiculopathy, chronic March 112023 8:45am Pain in posterior right lower extremity March 29, 2024 8:45am Right thyroid nodule March 29, 2024 8:45am Cigarette nicotine dependenc e with nicotine-induced disorder April 15, 2024 3:12pm Encounter for screening for lung cancer April 15, 2024 3:12pm Moderate persistent asthma, uncomplicate d April 15, 2024 3:12pm Additional Source Comments Care Team (unrecognized sect ion and content) Team Status: Active Member Role Status Dates Celia Garrison MD Primary Care Provider Active Team Status: Active Member Role Status Dates Celia Garrison MD Primary Care Provider Active Start: January 19, 2024 Delvin Campbell DO Attending Provider Active S tart: January 19, 2024 Team Status: Active Member Role Status Dates Celia Garrison MD Primary Care Provider Active Start: January 19, 2024 Geoff Rock DO Attending Provider Active Sta rt: January 19, 2024 Team Status: Inactive Member Role Status Dates Celia Garrison MD Primary Care Provider Active Start: January 24, 2024 End: January 24, 2024 Alexandro Galvez DO Attending Provider Active S tart: January 24, 2024 End: January 24, 2024 Team Status: Active Member Role Status Dates Celia Garrison MD Primary Care Provider Active Start: February 01, 2024 Geoff Rock DO Attending Provider Active Sta rt: February 01, 2024 Team Status: Active Member Role Status Dates Celia Garrison MD Primary Care Provide r, Attending Provider Active Start: February 07, 2024 Team Status: Inactive Member Role Status Dates Celia Garrison MD Primary Care Provide r, Attending Provider Active Start: February 08, 2024 End: February 08, 2024 Team Status: Inactive Member Role Status Dates Celia Garrison MD Primary Care Provide r, Attending Provider Active Start: March 04, 2024 End: March 04, 2024 Team Status: Active Member Role Status Dates Celia Garrison MD Primary Care Provide r, Other Provider Active Start: March 04, 2024 Reynaldo Tee MD Attending Provider Active Start: March 04, 2024 Team Status: Inactive Member Role Status Dates Celia Garrison MD Primary Care Provide r, Referring Provider Active Start: March 11, 2024 End: March 11, 2024 Scott Dennis DO Attending Provider Active St art: March 11, 2024 End: March 11, 2024 Team Status: Active Member Role Status Dates Celia Garrison MD Primary Care Provider Active Start: March 21, 2024 Scott Dennis DO Attending Provider Active St art: March 21, 2024 Team Status: Inactive Member Role Status Dates Celia Garrison MD Primary Care Provide r, Attending Provider Active Start: March 29, 2024 End: March 29, 2024 Team Status: Inactive Member Role Status Dates Celia Garrison MD Primary Care Provider Active Start: April 15, 2024 End: April 15, 2024 Scott Dennis DO Attending Provider Active St art: April 15, 2024 End: April 15, 2024 Team Status: Active Member Role Status [...] End: October 13, 2023 Brittanie Siu APRN [employer] Attending Provider Act onesimo Start: October 13, [...] February 08, 2024 End: February 08, 2024 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 Start Date End Date Celia Garrison MD [address] [place] [address] PCP - General Family Medicine 03/27/24 Ofelia Arceo MD [address] [address] Referring Physician Internal Medicine 03/27/24 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 Start Date End Date Celia Garrison MD [address] [place] [address] PCP - General Family Medicine 03/27/24 Ofelia Arceo MD [address] [address] Referring Physician Internal Medicine 03/27/24 Team Status: Active Member Role Status Dates Celia Garrison MD Primary Care Provider Active Start: February 01, 2024 Geoff Rock DO Attending Provider Active Sta rt: February 01, 2024 Team Status: Inactive Member Role Status Dates Celia Garrison MD Primary Care Provide r, Attending Provider Active Start: March 04, 2024 End: March 04, 2024 Team Status: Active Member Role Status Dates Celia Garrison MD Primary Care Provide r, Other Provider Active Start: March 04, 2024 Reynaldo Tee MD Attending Provider Active Start: March 04, 2024 Team Status: Inactive Member Role Status Dates Celia Garrison MD Primary Care Provide r, Referring Provider Active Start: March 11, 2024 End: March 11, 2024 Scott Dennis DO Attending Provider Active St art: March 11, 2024 End: March 11, 2024 Team Status: Active Member Role Status Dates Celia Garrison MD Primary Care Provider Active Start: March 21, 2024 Scott Dennis DO Attending Provider Active St art: March 21, 2024 Team Status: Inactive Member Role Status Dates Celia Garrison MD Primary Care Provide r, Attending Provider Active Start: March 29, 2024 End: March 29, 2024 Team Status: Inactive Member Role Status Dates Celia Garrison MD Primary Care Provider Active Start: April 15, 2024 End: April 15, 2024 Scott Dennis DO Attending Provider Active St art: April 15, 2024 End: April 15, 2024 INFORMATION SOURCE (unrecogn ized section and content) DATE CREATED AUTHOR 02/21/2022 Spenser Ritchie [facility] DATE CREATED AUTHOR AUTHOR'S ORGANIZ ATION 04/01/2022 [facility] DATE CREATED AUTHOR AUTHOR'S ORGANIZ ATION 03/07/2024 [facility] DATE CREATED AUTHOR AUTHOR'S ORGANIZ ATION 03/27/2024 [facility] DATE CREATED AUTHOR AUTHOR'S ORGANIZ ATION 04/03/2024 [facility] EPIC Goals (unrecognized section [...] BE BASED ON THE PRIMARY CLINICAL RECORDS. [employer] provides no warranty or guarantee of the accuracy or completeness of information in this document.
--- NOTE | 2024-04-22 15:00 | PM.CN ---
Consult Note: HPI Data of Consult Patient: new to practice Consult date: 04/22/24 Requesting Physician: Duong Oreilly MD Primary Care Provider: Celia Blnak MD Consult Narrative Reason for consult: low back, left leg pain Narrative: 64yof who presents for evaluation. longstanding low back history, worsening pain into left lower extremity. imaging shows multilevel stenosis, including at t11-12, t12-l1, and l4-5. emg reviewed, shows radiculopathy at l5-s1. was evaluated by nsg, recommended pain management initially. cannot have mri due to metal lodged in her jaw. uses norco as needed. denies adverse med side effects. 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 (ICD-10) Asthma ?J45.909 - Unspecified asthma, uncomplicated (ICD-10) Surgical History H/O fine needle aspiration with imaging guidance ?Z98.890 - Other specified postprocedural states (ICD-10) Status post discectomy ?Z98.890 - Other specified postprocedural states (ICD-10) History of bunionectomy ?Z98.890 - Other specified postprocedural states (ICD-10) H/O bilateral oophorectomy ?Z90.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, bilateral (ICD-10) History of tonsillectomy ?Z90.89 - Acquired absence of other organs (ICD-10) Social History Little interest or pleasure in doing things: not at all Feeling down, depressed, or hopeless: not at all Meds Home Medications and Allergies Home Medications ?Medication ?Instructions ?Recorded ?Confirmed ?Type albuterol sulfate 2.5 mg/3 mL 2.5 mg inhalation Q4H PRN 01/19/24 02/01/24 History (0.083 %) solution for nebulization shortness of breath or wheezing albuterol sulfate 90 mcg/actuation 2 puff inhalation Q4H 01/19/24 02/01/24 History aerosol inhaler fluticasone 250 mcg-salmeterol 50 1 inh inhalation Q12H 01/19/24 02/01/24 History mcg/dose blistr powdr for inhalation hydrocodone 5 mg-acetaminophen 325 1 tab PO Q8H 01/19/24 04/22/24 History mg tablet tizanidine 4 mg tablet 4 mg PO Q8H 01/19/24 04/22/24 History omeprazole 20 mg capsule,delayed 20 mg PO DAILY 02/01/24 04/22/24 History release bupropion HCl 150 mg 24 hr tablet, 150 mg PO DAILY 04/22/24 04/22/24 History extended release fluticasone fur. 200 mcg-umeclid 1 inh inhalation DAILY 04/22/24 04/22/24 History 62.5 mcg-vilant 25 mcg inhalat.powder (Trelegy Ellipta) Allergies Allergy/AdvReac Type Severity Reaction Status Date / Time Sulfa (Sulfonamide Allergy Unknown Unknown Verified 04/22/24 13:41 Antibiotics) levofloxacin (From Levaquin) Allergy Rash Verified 04/22/24 13:41 acetaminophen (From Percocet) AdvReac Intermediate Vomiting Verified 04/22/24 13:41 oxycodone (From Percocet) AdvReac Intermediate Vomiting Verified 04/22/24 13:41 Exam Narrative Exam Narrative: Psych-alert and oriented x 3. Attentive and appropriate, constitutionally normal, displays normal mood and affect per situation. There are no obvious deficits in memory, reasoning, or intellect.? Skin-no obvious rashes, bruising, erythema noted to the patient's area of pain.? Extremities- extremities are warm with minimal edema and palpable pulses. Lumbar-tenderness to palpation noted in the lumbar spine and paraspinal musculature. Pain is elicited with flexion, extension, and lateral rotation of the lumbar spine. Range of motion is diminished with these motions. Facet loading maneuvers are positive.? Strength-noted to be unremarkable with the exception of decreased strength rated at 4 out of 5 in left quadriceps femoris, anterior tibialis. Sensory-no notable sensory deficits in the bilateral lower extremities to touch or pinprick in all dermatomal distributions with the exception to decreased sensation to the left L4, 5, S1 dermatomal distribution Coordination remains intact.? Gait remains non-antalgic. Assessment and Plan Assessment and Plan (1) Lumbar stenosis with neurogenic claudication: (2) Lumbar radiculopathy: Plan 64yof who presents for evaluation. failed conservative measures, as noted. imaging reviewed, as noted. given symptoms and imaging, prudent to attempt left l4-5, l5-s1 tfesi under fluoroscopic guidance. she is in agreement. meds reviewed, no changes. follow up after procedure.
== END 2024-04-22 13:44 | disposition home or self-care (01) ==
LOC: PM 13:44
PROVIDERS: PCP Family Medicine; Visit Provider Anesthesiology
DX: M48.062 Spinal stenosis, lumbar region with neurogenic claudication (principal); M54.16 Radiculopathy, lumbar region
CPT/HCPCS: G0463

== ENCOUNTER 2024-04-29 06:46 | Day surgery (SDC) | payer MEDICARE, OTHER, SELFPAY ==
--- OUTSIDE RECORDS SUMMARY | 2024-04-29 06:49 | XMS_ITS | CCD ---
Author Organization [facility] Care Team Providers Care Manager Business Planning Name Role Phone CORNELIUS GARRISON Primary Care Physician [phone] BLADIMIR PROVIDERCORNELIUS Referring Unavailab le NILL, Mihaela Michelle Attending Unavailable NILL, Mihaela Michelle Attending Unavailable NILL, Mihaela Michelle Attending Unavailable NILL, Mihaela Michelle Attending Unavailable MISC, DR MIDDLETON Primary Care Unavailable REQUEST, DR REYES LISTED Attending Unavaila ble REQUEST, DR REYES LISTED Consulting Unavaila ble REQUEST, DR REYES LISTED Admitting Unavaila ble GARRISON, DR CORNELIUS Ward Primary Care Unavailable NILL, DR CHAIREZ Admitting Unavailable NILL, DR CHAIREZ Attending Unavailable NILL, DR CHAIREZ Consulting Unavailable HANNA, RADHIKA Consulting Unavailable MORGOS, DARREL Consulting Unavailable NILL, DR CHAIREZ Admitting Unavailable MISC, DR MIDDLETON Primary Care Unavailable NILL, DR CHAIREZ Attending Unavailable NILL, DR CHAIREZ Consulting Unavailable MD Cornelius Garrison Primary Care Provider DO Alexandro Galvez Attending Provider Bladimir TAVERAS, Cornelius Whyte Primary Care Unava ilable Adis PA-C, Ofelia Grace Attending Unavailab le Adis PA-C, Ofelia Grace Attending Unavailab le Adis PA-C, Ofelia Grace Admitting Unavailab Tuan TAVERAS, Cornelius Whyte Primary Care Unava ilable Adis PA-C, Ofelia Grace Attending Unavailab Tuan TAVERAS, Cornelius Whyte Primary Care Unava ilable Adis PA-C, Ofelia Grace Attending Unavailab Tuan TAVERAS, Cornelius Whyte Primary Care Unava ilable Adis PASonia, Ofelia Grace Attending Unavailab Tuan TAVERAS, Cornelius Whyte Referring Abhi Garrison MD, Cornelius Whyte Primary Care Cornelius Mcgowan MD Primary Care Provider [phone] Ofelia Arceo MD KANE PEREZ Attending Unavailable OFELIA ARCEO Referring Unavailable Cornelius Garrison MD Primary Care Provider Alexandro Galvez DO Attending Provider Cornelius Garrison MD Attending Provider Cornelius Garrison MD Primary Care Provider Cornelius Garrison Admitting Unavailable Cornelius Garrison Attending Unavailable Alexandro Galvez Attending Unavailable Alexandro Galvez Admitting Unavailable Cornelius Garrison Primary Care Unavailable Cornelius Garrison Attending Unavailable Cornelius Garrison Primary Care Unavailable Cornelius Garrison Admitting Unavailable Allergies Allergy Classification Reported Allergen(s) Allergy Type Date of Onset Reaction(s) Facility (3 sources) Acetaminophen / oxyCODONE; Translations: [acetaminophen-oxy codone] Drug Allergy Nausea (finding) [facility] (3 sources) Alendronate; Translations: [alendronate] Drug Allergy Muscle pain (finding) [facility] (12 sources) Clarithromycin; Translations: [clarithromycin] Drug Allergy 07-31-19 24 Unknown (qualifier value) [facility] (13 sources) levoFLOXacin; Translations: [levofloxacin] Drug Allergy 07-31-19 24 Eruption of skin (disorder) [facility] (4 sources) Sulfonamides (Antibiotic); Translations: [sulfa drugs] Drug allergy Unknown (qualifier value) [facility] (1 source) Acetaminophen / oxyCODONE Drug Allergy 03-25-20 16 [facility] (1 source) Alendronate Drug Allergy 03-18-20 16 [facility] (1 source) Clarithromycin Drug Allergy 03-25-20 16 [facility] (1 source) levoFLOXacin Drug Allergy 03-25-20 16 [facility] (1 source) Quinolones (Antibiotic) Drug allergy (disorder) 03-25-20 16 [facility] (1 source) Sulfonamides (Antibiotic) Drug allergy (disorder) 05-01-19 14 [facility] (1 source) Acetaminophen Drug Allergy 07-31-19 24 [facility] (9 sources) Alendronate Drug Allergy 04 [facility] (9 sources) oxyCODONE Drug Allergy 07-31-19 [facility] (9 sources) Sulfonamides (Antibiotic) Allergy to substance 07-31-19 Comment:as a young child, pt. cannot recall reaction [facility] (9 sources) Biaxin XL *MACROLIDES* Allergy to substance 07-28-19 [facility] (1 source) Ciprofloxacin; Translations: [Cipro] Drug Allergy [facility] (1 source) symbalta; Translations: [symbalta] Propensity to adverse reactions to drug (disorder) [facility] Medications Current Medications Medication Drug Class(es) Dates Sig (Normalized) Sig (Original) acetaminophen 325 mg / HYDROcodone bitartrate 5 mg oral tablet (20 sources) Opioid Agonist Start: 04-21-2024 take 1 tablet by mouth three times daily Hydrocodone-Aceta minophen 5-325 mg tablet Active 1 TAB PO Three times daily April 21, 2024 Start: 04-20-2024 End: 04-19-2024 take 1 tablet by mouth three times daily Hydrocodone-Acetaminophen 5-325 mg table t Discontinued 1 TAB PO Three times daily April 20, 2024 April 19, 2024 2:01pm Start: 08-03-2023 End: 04-19-2024 take 1 tablet by mouth three times daily Hydrocodone-Acetaminophen 5-325 mg table t Discontinued 1 TAB PO Three times daily March 22, 2024 April 19, 2024 2:01pm Start: 08-03-2023 take 1 tablet by amrgarito th three times daily Hydrocodone-Acetaminophen Active 1 [...] Ordered amitriptyline hydrochloride 50 mg oral tablet (13 sources) Tricyclic Antidepressant Start: 03-29-2024 take 1 [...] hydrochloride 300 mg extended release oral tablet (4 sources) Aminoketone Start: 04-15-2024 take 1 tablet by mouth once daily Bupropion Hcl 300 mg tablet extended release 24 hr Active 300 MG PO Daily April 15, 2024 12:00am Start: 03-11-2024 End: [...] Start Date: 12/17/21 Status: Ordered Fluticasone-Umecl idin-Vilanter (6 sources) Start: 04-15-2024 Fluticasone-Umec lidin-Vilanter (Trelegy Ellipta) 200-62.5-25 mcg blister with device Active 1 INH INHALATION Daily 3 April 15, 2024 3:40pm Rinse after use Start: 03-29-2024 End: 04-15-2024 Ybulqcquctx-Xpslcjgdn-Efzeyh er (Trelegy Ellipta) 200-62.5-25 mcg blister with device Discontinued 1 INH INHALATION Daily 60 March 29, 2024 9:38am April 15, 2024 3:41pm Rinse after use Start: 03-11-2024 End: 03-29-2024 Gggznivbtgr-Wxwkigtmq-Qpugbz er (Trelegy Ellipta) 200-62.5-25 mcg blister with device Discontinued 1 INH INHALATION Daily 180 March 11, 2024 12:00am March 29, 2024 9:38am Rinse after use omeprazole 20 mg delayed release oral capsule (3 sources) Proton Pump Inhibitor Start: 03-11-2024 take [...] Sig (Original) cefdinir 300 mg oral capsule (6 sources) Cephalosporin Antibacterial Start: 01-09-2024 End: 02-08-2024 take 1 capsule by mouth twice daily Cefdinir 300 mg capsule Discontinued 300 MG PO Twice daily January 08, 2024 11:00pm February 08, 2024 12:53pm doxycycline hyclate 100 mg oral tablet (8 sources) Tetracycline-class Drug Start: 10-13-2023 End: 11-01-2023 [...] Propionate Discontinued 1 PUFF INHALATION Twice daily .January 24, 2024 8:18am February 08, 2024 2:20pm administer with spacer Start: 01-24-2024 take 1 puff(s) by in halation twice daily Fluticasone Propionate Active 1 PUFF INHALATION Twice daily .January 24, 2024 8:18am administer with spacer Start: [...] 2023 12:00am administer with spacer Fluticasone Propion-Salmeterol (11 sources) Corticosteroid, beta2-Adrenergic Agonist Start: 07-28-2023 End: [...] Fluticasone Propionate 44 mcg/actuation HFA aerosol inhaler (6 sources) Start: 01-24-2024 End: 02-08-2024 take 1 puff(s) by inhalation twice daily Fluticasone Propionate 44 mcg/actuation HFA aerosol inhaler Discontinued 1 PUFF INHALATION Twice daily 10.6 January 24, 2024 7:18am February 08, 2024 1:20pm administer with spacer Start: 12-05-2023 End: 01-24-2024 take 1 puff(s) by inhalation twice daily Fluticasone Propionate 44 mcg/actuation HFA aerosol inhaler Discontinued 1 PUFF INHALATION Twice daily 10.6 December 05, 2023 1:47pm January 24, 2024 7:18am administer with spacer Start: 11-01-2023 End: 12-05-2023 take 1 puff(s) by inhalation twice daily Fluticasone Propionate 44 mcg/actuation HFA aerosol inhaler Discontinued 1 PUFF INHALATION Twice daily October 31, 2023 11:00pm December 05, 2023 1:48pm administer with spacer methylPREDNISolone 4 mg oral tablet (7 sources) Corticosteroid Start: 11-01-2023 End: 12-05-2023 Methylprednisolone [...] for 6 days Pneumoc 20-Agnes Conj-Dip Cr(Pf) (2 sources) Start: 03-11-2024 End: 03-29-2024 inject 1 mL by intramuscular injection once Pneumoc 20-Agnes Conj-Dip Cr(Pf) (Prevnar 20 (Pf)) 0.5 mL syringe Discontinued 0.5 ML IM Once 0.5 March 11, 2024 12:00am March 29, 2024 8:52am predniSONE 20 mg oral tablet (6 sources) Start: 01-09-2024 End: 02-08-2024 take 1 tablet by mouth twice daily Prednisone 20 mg tablet Discontinued 20 MG PO Twice daily January 08, 2024 11:00pm February 08, 2024 12:53pm pregabalin 50 mg oral capsule (9 sources) Start: 07-31-2023 End: 07-31-2023 take 1 capsule by mouth twice daily Pregabalin (Lyrica) 50 mg capsule Discontinued 50 MG PO Twice daily 60 30 July 30, 2023 11:00pm July 31, 2023 3:27pm Rsvpref3 Antigen-As01e (Pf) (Arexvy (Pf)) 120 mcg/0.5 mL suspension for reconstitution (2 sources) Start: 03-11-2024 End: 03-29-2024 inject 1 mL by intramuscular injection once Rsvpref3 Antigen-As01e (Pf) (Arexvy (Pf)) 120 mcg/0.5 mL suspension for reconstitution Discontinued 0.5 ML IM Once 1 March 11, 2024 12:00am March 29, 2024 9:04am 60 actuat tiotropium 0.17225 mg/actuat inhalation spray (6 sources) Anticholinergic Start: 02-08-2024 End: 03-11-2024 take 1 puff(s) by inhalation once daily in the morning Tiotropium [place] (Spiriva Respimat) 1.25 mcg/actuation mist Discontinued 2 PUFF INHALATION Every morning March 08, 2024 9:50am March 11, 2024 3:50pm tiZANidine 4 mg oral tablet (20 sources) Central alpha-2 Adrenergic Agonist Start: 05-26-2023 End: 04-19-2024 take 1 tablet by mouth three times daily Tizanidine 4 mg tablet Discontinued 4 MG PO Three times daily May 26, 2023 12:10pm August 28, 2023 2:10pm Start: 12-17-2021 take 1 tablet by margarito th three times daily tiZANidine 4 mg Tab 4 mg = 1 tab(s), Oral, TID, Refills(s) 0 Start Date: 12/17/21 Status: Ordered Problems Active Problems Problem Classification Problem Date Documented Date Episodic/Chronic Abdominal hernia (1 source) Diaphragmatic hernia without obstruction or gangrene; Translations: [DIAPH HERNIA W/O OBST/GANGRENE] Onset: 01-17-2022 Episodic Abdominal pain (7 sources) Epigastric pain; Translations: [Epigastric pain] Onset: 12-22-2021 Episodic Anal and rectal conditions (1 source) Rectal polyp; Translations: [RECTAL POLYP] Onset: 01-17-2022 Episodic Asthma (8 sources) Asthma; Translations: [Uncomplicated moderate persistent asthma] [...] BL] Onset: 01-17-2022 Chronic E Codes: Natural/environment (11 sources) Tick bite; Translations: [Bitten or stung by nonvenomous insect and other nonvenomous arthropods, initial encounter] 10-13-2023 Episodic Esophageal disorders (7 sources) Gastroesophageal reflux disease without esophagitis; Translations: [Gastro-esophageal reflux disease without esophagitis] Onset: 12-22-2021 Chronic Gastritis and duodenitis (1 source) Unspecified chronic gastritis without bleeding; Translations: [UNS CHRONIC GASTRITIS W/O BLEEDING] Onset: 01-17-2022 Chronic Headache; including migraine (11 sources) Headache; Translations: [Headache] 10-13-2023 Episodic Immunizations and screening for infectious disease (4 sources) Patient encounter status; Translations: [Encounter for immunization] 03-11-2024 Episodic Mood disorders (2 sources) Depressive disorder 12-17-2021 Chronic Osteoarthritis (9 sources) Primary gonarthrosis, bilateral; Translations: [Bilateral primary osteoarthritis of knee] 01-24-2024 Chronic Other aftercare (1 source) Other salvage 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 (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) 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 therapy; Translations: [OTH ADMINISTRATIVE TECHNICIAN CURRENT DRUG THERAPY] Onset: 01-17-2022 Episodic Other aftercare (1 source) Long-term current use of inhaled steroid; Translations: [termite exterminator (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 of 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] 04-15-2024 Episodic Other aftercare (1 source) termite exterminator (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 of 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; Translations: [Long-term (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 of steroids] 04-15-2024 Episodic Other bone disease and musculoskeletal deformities (2 sources) Osteopenia 12-17-2021 Episodic Other bone disease and musculoskeletal deformities (1 source) Other specified disorders of bone density and structure, unspecified site; Translations: [OTH D/O BONE DEN STRUCT UNS SITE] Onset: 01-17-2022 Episodic Other connective tissue disease (2 sources) Pain in right lower limb; Translations: [Pain in right leg] 03-29-2024 Episodic Other connective tissue disease (2 sources) Pain in right leg; Translations: [Pain in limb] 03-29-2024 Episodic Other fractures (2 sources) Fracture of rib; Translations: [Fracture of one rib, unspecified side, initial encounter for closed fracture] 02-18-2024 Episodic Other fractures (2 sources) Fracture of one rib, unspecified side, initial encounter for closed fracture; Translations: [Closed fracture of rib(s), unspecified] 02-08-2024 Episodic Other nervous system disorders (1 source) Numbness and tingling sensation of skin; Translations: [Anesthesia of skin] 04-01-2024 Episodic Other non-traumatic joint disorders (8 sources) Joint pain; Translations: [Pain in unspecified joint] 10-13-2023 Episodic Other non-traumatic joint disorders (3 sources) Pain in unspecified joint; Translations: [Pain in joint, site unspecified] 10-13-2023 Episodic Other nutritional; endocrine; and metabolic disorders (2 sources) Overweight in adulthood with body mass index of 25 or more but less than 30 12-22-2021 Episodic Other screening for suspected conditions (not mental disorders or infectious disease) (8 sources) Screening for malignant neoplasm of colon [...] SATIETY] Onset: 01-17-2022 Episodic Residual codes; unclassified (3 sources) Menopause present; Translations: [Asymptomatic menopausal state] 02-08-2024 Episodic Residual codes; unclassified (3 sources) Asymptomatic menopausal state; Translations: [Symptomatic menopausal or female climacteric states] 02-08-2024 Episodic Spondylosis; intervertebral disc disorders; other back problems (20 sources) Lumbar radiculopathy; Translations: [Radiculopathy, lumbar region] 07-31-2023 Episodic Substance-related disorders (7 sources) Nicotine dependence, cigarettes, uncomplicated; Translations: [Tobacco dependence caused by cigarettes] Onset: 01-17-2022 03-11-2024 Chronic Thyroid disorders (4 sources) Thyroid nodule; Translations: [Nontoxic single thyroid nodule] 03-29-2024 Chronic Unclassified (2 sources) Patient encounter status 12-22-2021 Unclassified (1 source) CONTACT W/AND (SUSP) EXPOS COVID-19; Translations: [CONTACT W/AND (SUSP) EXPOS COVID-19] Onset: 01-13-2022 Past or Other Problems Problem Classification Problem Date Documented Da te Episodic/Chronic Other non-traumatic joint disorders (13 sources) Pain in right knee; Translations: [Pain in both knees] Onset: 01-24-2024 01-10-2024 Episodic Other non-traumatic joint disorders (1 source) Pain in left knee; Translations: [Pain in left knee] Onset: 01-24-2024 Episodic Results Test Name Value Interpretation Reference Range [facility] 04-22-2024 -------- -------- Specimen: [id number] Received: 04/24/24 Status: OMAR Hayes Num: [id number] Spec Type: Cytology Subm Dr: Cornelius Garrison MD Tissues: A FNA SLIDES NOPATH (INF RT THY) Procedures: Cyto Int and Re, PAPSTN/5 -------- Age/ Patient Sex Location Account Attending Physician -------- Cristine Manley 64/F [facility] [id number] Cornelius Garrison MD -------- SPEC NUM: [id number] RECD: 04/24/24 STATUS: OMAR HAYES NUM: [id number] TORI: 04/22/24- [facility] DR: Cornelius Garrison MD ENTERED: 04/24/[address] [facility] [address]: Les Lee MD SPEC TYPE: Cytology DEPT: KEN NCYT ENTERED BY: [id number] RECV BY: [id number] ORDERED: Cyto Int and Re, PAPSTN/5 ORDERED: Cyto Int and Re, PAPSTN/5 Pathological Diagnosis Right thyroid nodule, inferior, FNA cytology -Adequate follicular groups in the ThinPrep smear, appropriate for assessment, consisting of small to occasionally slightly larger and reactive follicular cells, suggesting dimorphic population and the category 3 [place] system, atypia of the undetermined significance, otherwise all showing small benign ovoid appearing nuclei -Pending additional molecular triage assessment to follow Clinical Information Right Thyroid Nodule Gross Description Received fixed in Cytolyt is 30 ml pale pink clear fixed fluid for cytology said to have been obtained as Inferior Right Thyroid Inferior. ThinPrep preparations are prepared for microscopic examination. Also received are 4 spray fixed smeared slides for pap and a Veracyte vial stored at -20 for microscopic examination. (MI/az) -------- Specimen: [id number] Received: 04/24/24 Status: OMAR Freddy Num: [id number] Spec Type: Cytology Subm Dr: Cornelius Garrison MD Tissues: A FNA SLIDES NOPATH (INF RT THY) Procedures: Cyto Int and Re, PAPSTN/5 -------- Patient: ManleyAmanda ennisandrea Hairston [id number] (Continued) -------- Specimen: [id number] Received: 04/24/24 (Continued) Signed (signature on file) Gail Sheth MD 04/24/24 1439 -------- Specimen: [id number] Received: 04/24/24 Status: OMAR Hayes Num: [id number] Spec Type: Cytology Subm Dr: Cornelius Garrison MD Tissues: A FNA SLIDES NOPATH (INF RT THY) Procedures: Cyto Int and Re, PAPSTN/5 -------- Patient: Cristine Manley [id number] (Continued) -------- Specimen: [id number] Received: 04/24/24 (Continued) Microscopic Description Microscopic examinations are performed supporting the above interpretation CPT Codes 88970 -------- -------- Specimen: [id number] Received: 04/24/24 Status: OMAR Hayes Num: [id number] Spec Type: Cytology Subm Dr: Cornelius Garrison MD Tissues: A FNA SLIDES NOPATH (INF RT THY) Procedures: Cyto Int and Re, PAPSTN/5 -------- Patient: SindhuCristine Hairston [id number] (Continued) -------- Signed (signature on file) Gail Sheth MD 04/24/24 1439 Normal [facility] EMG 2 Extremitieson 04-01-20 EMG/NCS BLE Right L5/S1 radic [place] S1/2 radic [facility] [place] 9-10 Nerveson 04-01-2024 EMG/NCS BLE Right L5/S1 radic [place] S1/2 radic [facility] Healthcare Provider Letteron 03-26-2024 Provider Letter (Inserted Image. Gela ble to display) Cornelius Garrison MD [address] [place] [address] [place] [address] Re: Cristine Sindhu Date of Visit: 03/25/2024 Dear Cornelius Garrison MD, This patient was recently seen in the neurosurgical office. Please see attached note for further details. Let me know if you have any questions or concerns. Sincerely, DEMARCUS Gan Providers: The following document(s) were included in the letter: March 25, 2024 17:40:13 EST - (03/25/2024) Neurosurgery Office Visit Note Normal [facility] Neurosurgery Office/Clinic N sherry 03-25-2024 Neurosurgery Office/Clinic Note Chief Complaint CT thoracic, lumbar, XR lumbar, hips and neck review History of Present Illness The patient is a pleasant 64-year-old right-handed female with history of chronic nicotine use, asthma and recently diagnosed COPD for which she is planned to see a cardiovascular operating room nurse in the near future. She also has history of decompression/discectomy T12-L1 by Dr. Ugarte in 2013 with good postoperative benefit. The patient recently presented to the neurosurgical office on behalf of of referral by Dr. Cornelius Garrison (primary care) regarding low back pain [...] though does not resolve. Oral narcotics including Wilcox which makes pain tolerable though does not [...] increases slightl (more content not included)... Normal [facility] Basophils Auto (Bld) [#/Vol] on 03-21-2024 Basophils (Bld) [#/Vol] Automated basophil count 0.0-0.1 [facility] Basophils/100 WBC Auto (Bld) on 03-21-2024 Basophils/100 WBC (Bld) Automated basophil % 0.2-2.0 [facility] Eosinophils/100 WBC Auto (Bl d)on 03-21-2024 Eosinophils/100 WBC (Bld) Automated eosinophil % 0.9-7.0 [facility] Erythrocyte distribution wid th Auto (RBC) [Ratio]on 03-21-2024 Erythrocyte distribution width (RBC) [Ratio] Erythrocyte distribution width [Ratio] by Automated count 11.0-15.0 [facility] Hematocrit Auto (Bld) [Volum e fraction]on 03-21-2024 Hematocrit (Bld) [Volume fraction] Hematocrit [Volume Fraction] of Blood by Automated count 36.0-48.0 [facility] Hemoglobin [Mass/volume] in Bloodon 03-21-2024 Hemoglobin (Bld) [Mass/Vol] Hemoglobin [Mass/volume] in Blood 12.0-16.0 [facility] IgE [Units/volume] in Serum or Plasmaon 03-21-2024 IgE Qn IgE [Units/volume] i n Serum or Plasma [phone] [facility] Comment on above: Performed at: [facility] [address] [id number] Director: eLvi Pedroza MD, Phone: [phone] Laboratory - Hematology and Cell countson 03-21-2024 Immature granulocytes/100 WBC (Bld) 0.1 % 0.0-0.5 [facility] Leukocytes [#/volume] correc shant for nucleated erythrocytes in Blood by Automated counon 03-21-2024 WBC corrected for nucl RBC Auto (Bld) [#/Vol] Leukocytes [#/volume] corrected for nucleated erythrocytes in Blood by Automated coun 4.0-11.0 [facility] Lymphocytes Auto (Bld) [#/Vo l]on 03-21-2024 Lymphocytes (Bld) [#/Vol] Lymphocytes [#/volume] in Blood by Automated count 1.2-3.8 [facility] Lymphocytes/100 WBC Auto (Bl d)on 03-21-2024 Lymphocytes/100 WBC (Bld) Lymphocytes/100 leukocytes in Blood by Automated count Low 20.5-60.0 [facility] MCH Auto (RBC) [Entitic mass ]on 03-21-2024 MCH (RBC) [Entitic mass] MCH [Entitic mass] by Automated count 26.7-34.0 [facility] MCHC Auto (RBC) [Mass/Vol]on 03-21-2024 MCHC (RBC) [Mass/Vol] MCHC [Mass/volume] by Automated count 29.9-35.2 [facility] MCV Auto (RBC) [Entitic vol] on 03-21-2024 MCV (RBC) [Entitic vol] MCV [Entitic volume] by Automated count 81.0-99.0 [facility] Monocytes Auto (Bld) [#/Vol] on 03-21-2024 Monocytes (Bld) [#/Vol] Automated blood monocyte count 0.3-0.8 [facility] Monocytes/100 WBC Auto (Bld) on 03-21-2024 Monocytes/100 WBC (Bld) Automated monocyte % 1.7-12.0 [facility] Neutrophils Auto (Bld) [#/Vo l]on 03-21-2024 Neutrophils (Bld) [#/Vol] Neutrophils [#/volume] in Blood by Automated count High 1.4-6.5 [facility] Neutrophils/100 WBC Auto (Bl d)on 03-21-2024 Neutrophils/100 WBC (Bld) Automated neutrophil % 43.0-75.0 [facility] No Panel Informationon 12-12 -2024 Eosinophils # (Auto) 0.1 10 3/uL 0.0-0.7 [facility] Immature Granulocyte # (Auto) 0.01 10 3/uL 0.00-0.03 [facility] Platelet mean volume Auto (B ld) [Entitic vol]on 03-21-2024 Platelet mean volume (Bld) [Entitic vol] Platelet mean volume [Entitic volume] in Blood by Automated count 9.5-13.5 [facility] Platelets Auto (Bld) [#/Vol] on 03-21-2024 Platelets (Bld) [#/Vol] Platelets [#/volume] in Blood by Automated count 150-450 [facility] RBC Auto (Bld) [#/Vol]on RBC (Bld) [#/Vol] Erythrocytes [#/volu me] in Blood by Automated count 4.20-5.40 [facility] Provider Letteron 02-29-2024 Provider Letter (Inserted Image. Gela ble to display) Cornelius Whittaker [facility] [address] Re: Cristine Manley Date of Visit: 02/23/2024 Dear Cornelius Garrison MD, Please see attached results on this mutual patient you have with [facility] Result Name Current Result CT Spine Thoracic/Lumbar Myelogram w/Con 02/23/2024 Let me know if you have any questions or concerns. Sincerely, Jaclyn Bliss [facility] Clinical Lead Health Product Analyst C C Providers: Normal [facility] CT Spine Thoracic/Lumbar Mye logram w/Conon [...] Electronically Signed in Other Vendor System) Normal [facility] PTon 02-23-2024 INR Coag (PPP) [Relative time] 1.0 {INR} Normal <=3.5 [facility] Comment on above: Result Comment: INR has no normal range. INR Therapeutic range is: 2.0-3.0 (AF, CVA, TIAs, DVT prophylaxis, acute DVT) 2.5-3.5 ([place] heart valves, recurrent thrombosis/emboli) Performed By: #### P TINR #### [address] [address] PT Coag (PPP) [Time] 10.3 s Normal 9.2-12.0 [facility] Comment on above: Performed By: #### P TINR #### [address] [address] PTTon 02-23-2024 aPTT Coag (Bld) [Time] 24.8 s Normal 19.5-28.2 [facility] Comment on above: Performed By: #### P TT #### [address] [address] Platelet Counton 02-23-2024 Platelet 300 x10*3/mcL Normal 150-450 [facility] Comment on above: Performed By: #### P LTS #### [facility] [address] [place] [address] XR Hip 2-3 Views Lefton 02-08 XR [...] Electronically Signed in Other Vendor System) Normal [facility] XR Myelography Spine 2 or Mo [...] Electronically Signed in Other Vendor System) Normal [facility] XR Spine Cervical 4 or 5 [...] Electronically Signed in Other Vendor System) Normal [facility] XR Spine Lumbosacral Bending 2-3 Viewson [...] Electronically Signed in Other Vendor System) Normal [facility] Neurosurgery Office/Clinic Aliya powell 02-13-2024 Neurosurgery Office/Clinic Note Chief Complaint Back lumbar pain radiculopathy consult History of Present Illness The patient is a pleasant 64-year-old right-handed female with history of chronic nicotine use, asthma and recently diagnosed COPD for which she is planned to see a cardiovascular operating room nurse in the near future. She also has history of decompression/discectomy T12-L1 by Dr. Ugarte in 2013 with good postoperative benefit. The patient presents to the neurosurgical office on behalf of of referral by Dr. Cornelius Garrison (primary care) regarding low back pain [...] though does not resolve. Oral narcotics including Wilcox which makes pain tolerable though does not [...] Newly diagnosed COPD, scheduled to see a cardiovascular operating room nurse in the near future Chronic nicotine use [...] marijuana use. 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 She denies any Worker's Comp. related claims regarding today's visit FAMILY HISTORY: Lung cancer: Father Diabetes mellitus: Mother Hypertension: Mother Review of Systems Constitutional: [No fevers, chills, sweats] Eye: [No recent visual problems] ENMT: [ (more content not included)... Normal [facility] Provider Letteron 02-13-2024 Provider Letter (Inserted Image. Gela ble to display) Cornelius Garrison MD [facility] [address] Re: Cristine Manley Date of Visit: 02/13/2024 Dear Cornelius Garrison MD, This patient was recently seen in the neurosurgical office. Please see attached note for further details. Let me know if you have any questions or concerns. Sincerely, DEMARCUS Gan Providers: The following document(s) were included in the letter: February 13, 2024 09:39:53 EST - (02/13/2024) Neurosurgery Office Visit Note Normal [facility] XR knee BI 3V - NOT FOR ER U Sanam 01-24-2024 XR knee BI 3V - NOT FOR ER USE [facility] [address] [place] [address] XRay Report Signed Patient: Cristine Manley MR#: [id number] 53 : 1960 Acct:[id number] Age/Sex: 64 / F ADM Date: 01/24/24 [place] [facility] [place] Type: [facility] Attending Dr: Alexandro Galvez DO Copies to: [...] Sunday Graham M.D.01/24/2024 3:45 PM Dictation Location: [place] [address] Transcribed By: JOVANA 01/24/24 154 Dictated By: Sunday Graham II, MD 01/24/24 154 Signed By: 01/24/24 154 Normal [facility] Basophils Auto (Bld) [#/Vol] on 01-19-2024 Basophils (Bld) [#/Vol] 0.0 10 3/uL 0.0-0.1 [facility] Basophils (Bld) [#/Vol] Automated basophil count 0.0-0.1 [facility] Basophils/100 WBC Auto (Bld) on 01-19-2024 Basophils/100 WBC (Bld) 0.2 % 0.2-2.0 [facility] Basophils/100 WBC (Bld) Automated basophil % 0.2-2.0 [facility] Eosinophils/100 WBC Auto (Bl d)on 01-19-2024 Eosinophils/100 WBC (Bld) 4.3 % 0.9-7.0 [facility] Eosinophils/100 WBC (Bld) Automated eosinophil % 0.9-7.0 [facility] Erythrocyte distribution wid th Auto (RBC) [Ratio]on 01-19-2024 Erythrocyte distribution width (RBC) [Ratio] 13.1 % 11.0-15.0 [facility] Erythrocyte distribution width (RBC) [Ratio] Erythrocyte distribution width [Ratio] by Automated count 11.0-15.0 [facility] Estimated glomerular filtrat ion rate (GFR) non- Americanon 01-19-2024 GFR/1.73 sq M.predicted among non-blacks MDRD (S/P/Bld) [Vol rate/Area] mL/min/{1.73_m2} >=60 mL/min/1.73 m 2 [facility] GFR/1.73 sq M.predicted among non-blacks MDRD (S/P/Bld) [Vol rate/Area] Estimated glomerular filtration rate (GFR) non- >=60 mL/min/1.73 m 2 [facility] Fibrin D-dimer [Presence] in Platelet poor plasma by Latex agglutinationon 01-19-2024 Fibrin D-dimer LA Ql (PPP) 0.43 mg/L FEU <=0.59 [facility] Comment on above: Increases in D-Dimer concentration [...] Platelet poor plasma by Latex agglutination <=0.59 [facility] Comment on above: Increases in D-Dimer concentration [...] Hematocrit (Bld) [Volume fraction] 39.5 % 36.0-48.0 [facility] Hematocrit (Bld) [Volume fraction] Hematocrit [Volume Fraction] of Blood by Automated count 36.0-48.0 [facility] Hemoglobin [Mass/volume] in Bloodon 01-19-2024 Hemoglobin (Bld) [Mass/Vol] 12.8 g/dL 12.0-16.0 [facility] Hemoglobin (Bld) [Mass/Vol] Hemoglobin [Mass/volume] in Blood 12.0-16.0 [facility] Laboratory - Chemistry and C hemistry - challengeon 01-19-2024 Calcium [Mass/Vol] 9.0 mg/dL 8.5-10.1 [facility] Chloride [Moles/Vol] 105 mmol/L 98-107 [facility] CO2 [Moles/Vol] 28.7 mmol/L 21.0-32.0 [facility] Creatinine [Mass/Vol] 0.92 mg/dL 0.55-1.02 [facility] GFR/1.73 sq M.predicted MDRD (S/P/Bld) [Vol rate/Area] mL/min/{1.73_m2} >=60 mL/min/1.73 m 2 [facility] Glucose [Mass/Vol] 78 mg/dL 74-106 [facility] Potassium [Moles/Vol] 4.0 mmol/L 3.5-5.1 [facility] Sodium [Moles/Vol] 138 mmol/L 136-145 [facility] Urea nitrogen [Mass/Vol] 27.0 mg/dL High 7.0-18.0 [facility] Urea nitrogen/Creatinin e [Mass ratio] 29.3 mg/mg [facility] - Hematology and Cell countson 01-19-2024 Immature granulocytes/100 WBC (Bld) 0.3 % 0.0-0.5 [facility] - Microbiology an d Antimicrobial susceptibilityon 01-19-2024 SARS-CoV-2 (COVID-19) RNA JOSELUIS+probe Ql (Unsp spec) Negative NEGATIVE [facility] Comment on above: This test has not [...] (Bld) [#/Vol] 12.6 10 3/uL High 4.0-11.0 [facility] WBC corrected for nucl RBC Auto (Bld) [#/Vol] Leukocytes [#/volume] corrected for nucleated erythrocytes in Blood by Automated coun High 4.0-11.0 [facility] Lymphocytes Auto (Bld) [#/Vo l]on 01-19-2024 Lymphocytes (Bld) [#/Vol] 4.4 10 3/uL High 1.2-3.8 [facility] Lymphocytes (Bld) [#/Vol] Lymphocytes [#/volume] in Blood by Automated count High 1.2-3.8 [facility] Lymphocytes/100 WBC Auto (Bl d)on 01-19-2024 Lymphocytes/100 WBC (Bld) 35.0 % 20.5-60.0 [facility] Lymphocytes/100 WBC (Bld) Lymphocytes/100 leukocytes in Blood by Automated count 20.5-60.0 [facility] MCH Auto (RBC) [Entitic mass ]on 01-19-2024 MCH (RBC) [Entitic mass] 29.4 pg 26.7-34.0 [facility] MCH (RBC) [Entitic mass] MCH [Entitic mass] by Automated count 26.7-34.0 [facility] MCHC Auto (RBC) [Mass/Vol]on 01-19-2024 MCHC (RBC) [Mass/Vol] 32.4 g/dL 29.9-35.2 [facility] MCHC (RBC) [Mass/Vol] MCHC [Mass/volume] by Automated count 29.9-35.2 [facility] MCV Auto (RBC) [Entitic vol] on 01-19-2024 MCV (RBC) [Entitic vol] 90.6 fL 81.0-99.0 [facility] MCV (RBC) [Entitic vol] MCV [Entitic volume] by Automated count 81.0-99.0 [facility] Monocytes Auto (Bld) [#/Vol] on 01-19-2024 Monocytes (Bld) [#/Vol] 1.2 10 3/uL High 0.3-0.8 [facility] Monocytes (Bld) [#/Vol] Automated blood monocyte count High 0.3-0.8 [facility] Monocytes/100 WBC Auto (Bld) on 01-19-2024 Monocytes/100 WBC (Bld) 9.5 % 1.7-12.0 [facility] Monocytes/100 WBC (Bld) Automated monocyte % 1.7-12.0 [facility] Neutrophils Auto (Bld) [#/Vo l]on 01-19-2024 Neutrophils (Bld) [#/Vol] 6.4 10 3/uL 1.4-6.5 [facility] Neutrophils (Bld) [#/Vol] Neutrophils [#/volume] in Blood by Automated count 1.4-6.5 [facility] Neutrophils/100 WBC Auto (Bl d)on 01-19-2024 Neutrophils/100 WBC (Bld) 50.7 % 43.0-75.0 [facility] Neutrophils/100 WBC (Bld) Automated neutrophil % 43.0-75.0 [facility] No Panel Informationon 01-18 Bedside Influenza Type A Antigen Negative [facility] Comment on above: Negative for Flu A p rotein antigen. Infection due to Flu Acannot be ruled out. Flu A antigen in the sample may bebelow the detection limit of the test. Bedside Influenza Type B Antigen Negative [facility] Comment on above: Negative for Flu B p rotein antigen. Infection due to Flu Bcannot be ruled out. Flu B antigen in the sample may bebelow the detection limit of the test. Eosinophils # (Auto) 0.5 10 3/uL 0.0-0.7 [facility] Immature Granulocyte # (Auto) 0.04 10 3/uL High 0.00-0.03 [facility] Troponin I High Sensitivity 5.8 pg/mL 4.0-51.3 [facility] Comment on above: CUT-OFF POINTS HAVE BEEN [...] (Bld) [Entitic vol] 9.3 fL Low 9.5-13.5 [facility] Platelet mean volume (Bld) [Entitic vol] Platelet mean volume [Entitic volume] in Blood by Automated count Low 9.5-13.5 [facility] Platelets Auto (Bld) [#/Vol] on 01-19-2024 Platelets (Bld) [#/Vol] 304 10 3/uL 150-450 [facility] Platelets (Bld) [#/Vol] Platelets [#/volume] in Blood by Automated count 150-450 [facility] RBC Auto (Bld) [#/Vol]on RBC (Bld) [#/Vol] 4.36 10 6/uL 4.20-5.40 [facility] RBC (Bld) [#/Vol] Erythrocytes [#/volu me] in Blood by Automated count 4.20-5.40 [facility] Serum or plasma anion gap de terminationon 01-19-2024 Anion gap [Moles/Vol] 8.3 mmol/L [facility] Anion gap [Moles/Vol] Serum or plasma anion gap determination [facility] Borrelia burgdorferi IgG+IgM Ab [Presence] in Serum by Immunoassayon 10-13-2023 B. burgdorferi IgG+IgM IA Ql (S) Negative Negative [facility] Comment on above: Lyme antibodies not detected. Reflex testing is notindicated.No laboratory evidence of infection with B. burgdorferi(Lyme disease). Negative results may occur in patientsrecently infected (less than or equal to 14 days) with B.burgdorferi. If recent infection is suspected, repeattesting on a new sample collected in 7 to 14 days isrecommended.Performed at: [facility] [place] [id number] [place], [place] [id number] Director: Jeovany Bazan PhD, Phone: [phone] General Surgery Office/Filiberto avila Noteon 02-21-2022 General Surgery Office/Clinic Note Chief [...] Primary malignant neoplasm of lung: Father. Normal [facility] Comment on above: Result Comment: Elec tronically Signed By: RAJINDER TAVERAS, Mihaela Michelle\.br\Date and Time Signed: 02/21/22 16:42 EST Ambulatory Visit Summaryon 1 Ambulatory Visit Summary CRISTINE MANLEY :1960 Visit Date:02/01/2022 Ambulatory Visit Instructions Your Care Team Attending Physician - Mihaela CASAS MD Primary Care Physician - CORNELIUS GARRISON MD This Is Your Medications List [...] colon Tobacco user Very low density lipoprotinemia [facility] Reminderson 02-01-2022 Reminders - From: Sushma Shell LPN To: N - Clinical; Sent: 02/01/2022 16:18:52 EDT Show up: 04/12/2022 07:00:00 EST Subject: EGD recall Due Date/Time: 05/04/2022 07:00:00 EST Reminder/Recall Patient is due to repeat EGD 05/04/2022 due to gastric ulcer. Normal [facility] Outside Colonoscopyon 2021 Outside Colonoscopy [id number]#[id number]:127 [facility] Pathology Noteon 01-14-2022 Pathology Note [id number]#1.00CD:127 [facility] Reminderson 01-14-2022 Reminders - From: Sushma Shell LPN To: N - Clinical; Sent: 01/14/2022 08:07:35 EDT Show up: 12/14/2031 07:00:00 EDT Subject: colonoscopy recall Due Date/Time: 01/13/2032 07:00:00 EDT Reminder/Recall Patient is due for screening colonoscopy 01/13/2032. Normal [facility] Pre-Certification Formon Pre-Certification Form [id number]#1.00CD:127 Normal [facility] Lab Reportson 01-11-2022 Lab Reports [id number]#1.00CD:127 Normal [facility] Covid-19 PCR (CVDTB)on SARS-CoV-2 (COVID-19) RNA JOSELUIS+probe Ql (Unsp spec) Not detected Normal NOT DETECTED [facility] Comment on above: Result Comment: This test is not yet approved or cleared by the [place] FDA. When there are no FDA-approved or cleared tests available, and other criteria are met, FDA can make tests available under an emergency access mechanism called an Emergency Use Authorization (EUA). The EUA for this test is supported by the Mo[employer] of Health and Human Service's (HHS's) declaration [...] consistent with SARS-CoV-2. Performed By: #### [facility] #### [facility] [address] [place] [address] Dr. Pablo Sheth Physician Orderon 12-23-2021 Physician Order [id number]#[id number]:127 Normal [facility] Ambulatory Visit Summaryon 0 12-22-2021 Ambulatory Visit Summary CRISTINE MANLEY :1960 Visit Date:12/22/2021 Ambulatory Visit Instructions Your Care Team Attending Physician - RAJINDER TAVERAS, Mihaela Michelle Primary Care Physician - CORNELIUS GARRISON MD This Is Your Medications List [...] Tobacco user Very low density lipoprotinemia Normal [facility] CBC AUTO DIFFon 12-17-2021 BASO # 0.1 103/ul Normal 0.0-0.1 [facility] Comment on above: Performed By: #### D ATCBC #### [facility] [address] [place] [address] [address] Pablo Sheth Basophils/100 WBC (Bld) 0.4 % Normal 0.2-2.0 [facility] Comment on above: Performed By: #### D ATCBC #### [facility] [address] [place] [address] [address] Pablo Sheth EO # 0.3 103/ul Normal 0.0-0.7 [facility] Comment on above: Performed By: #### D ATCBC #### [facility] [address] [place] [address] Dr. Pablo Sheth Eosinophils/100 WBC (Bld) 2.4 % Normal 0.9-7.0 [facility] Comment on above: Performed By: #### D ATCBC #### [facility] [address] [place] [address] Dr. Pablo Sheth Erythrocyte distribution width (RBC) [Ratio] 13.2 % Normal 11.0-15.0 [facility] Comment on above: Performed By: #### D ATCBC #### [facility] [address] [place] [address] Dr. Pablo Sheth Hematocrit (Bld) [Volume fraction] 42.6 % Normal 36.0-48.0 [facility] Comment on above: Performed By: #### D ATCBC #### [facility] [address] [place] [address] Dr. Pablo Sheth Hemoglobin (Bld) [Mass/Vol] 13.7 g/dL Normal 12.0-16.0 [facility] Comment on above: Performed By: #### D ATCBC #### [facility] [address] [place] [address] Dr. Pablo Sheth IG # 0.05 10e3/ul Critically high 0.00-0.03 [facility] Comment on above: Performed By: #### D ATCBC #### [facility] [address] [place] [address] [address] Pablo Sheth IG % 0.4 % Normal 0.0-0.5 [facility] Comment on above: Performed By: #### D ATCBC #### [facility] [address] [place] [address] [address] Pablo Sheth LYMPH # 2.8 103/ul Normal 1.2-3.8 [facility] Comment on above: Performed By: #### D ATCBC #### [facility] [address] [place] [address] [address] Pablo Sheth Lymphocytes/100 WBC (Bld) 20.9 % Normal 20.5-60.0 [facility] Comment on above: Performed By: #### D ATCBC #### [facility] [address] [place] [address] Dr. Pablo Sheth MCH (RBC) [Entitic mass] 29.2 pg Normal 26.7-34.0 [facility] Comment on above: Performed By: #### D ATCBC #### [facility] [address] [place] [address] Dr. Pablo Sheth MCHC (RBC) [Mass/Vol] 32.2 g/dL Normal 29.9-35.2 [facility] Comment on above: Performed By: #### D ATCBC #### [facility] [address] [place] [address] [address] Pablo Sheth MCV (RBC) [Entitic vol] 90.8 fL Normal 81.0-99.0 [facility] Comment on above: Performed By: #### D ATCBC #### [facility] [address] [place] [address] [address] Pablo Sheth MONO # 1.0 103/ul Critically high 0.3-0.8 [facility] Comment on above: Performed By: #### D ATCBC #### [facility] [address] [place] [address] [address] Pablo Sheth Monocytes/100 WBC (Bld) 7.5 % Normal 1.7-12.0 [facility] Comment on above: Performed By: #### D ATCBC #### [facility] [address] [place] [address] [address] Pablo Sheth NEUT # 9.2 103/ul Critically high 1.4-6.5 [facility] Comment on above: Performed By: #### D ATCBC #### [facility] [address] [place] [address] [address] Pablo Sheth Neutrophils/100 WBC (Bld) 68.4 % Normal 43.0-75.0 [facility] Comment on above: Performed By: #### D ATCBC #### [facility] [address] [place] [address] [address] Pablo Sheth Platelet mean volume (Bld) [Entitic vol] 9.3 fL Critically low 9.5-13.5 [facility] Comment on above: Performed By: #### D ATCBC #### [facility] [address] [place] [address] [address] Pablo Sheth PLT 313 103/ul Normal 150-450 [facility] Comment on above: Performed By: #### D ATCBC #### [facility] [address] [place] [address] [address] Pablo Sheth RBC 4.69 106/ul Normal 4.20-5.40 [facility] Comment on above: Performed By: #### D ATCBC #### [facility] [address] [place] [address] [address] Pablo Sheth WBC 13.4 103/ul Critically high 4.0-11.0 [facility] Comment on above: Performed By: #### D ATCBC #### [facility] [address] [place] [address] [address] Pablo Sheth BERKLEY - TSHon 12-17-2021 TSH 1.241 uIU/mL Normal 0.358-3.740 [facility] Comment on above: Performed By: #### D ATTSH, DATBMP #### [facility] [address] [place] [address] [address] Pablo Sheth TSH RANGE SEE BELOW Normal [facility] Comment on above: Result Comment: <0.3 4 UIU/ml HYPERTHYROID 0.34-5.60 UIU/ml EUTHYROID >5.60 UIU/ml HYPOTHYROID Performed By: #### D ATTSH, DATBMP #### [facility] [address] [place] [address] [address] Pablo Sheth BERKLEY- BMP WITH LIPIDon 2021 Anion gap [Moles/Vol] 11.9 mmol/L Normal [facility] Comment on above: Performed By: #### D ATTSH, DATBMP #### [facility] [address] [place] [address] [address] Pablo Sheth Calcium [Mass/Vol] 9.1 mg/dL Normal 8.5-10.1 [facility] Comment on above: Performed By: #### D ATTSH, DATBMP #### [facility] [address] [place] [address] Dr. Pablo Sheth Chloride [Moles/Vol] 104 mmol/L Normal 98-107 [facility] Comment on above: Performed By: #### D ATTSH, DATBMP #### [facility] [address] [place] [address] [address] Pablo Sheth Cholesterol [Mass/Vol] 207 mg/dL Critically high <=200 [facility] Comment on above: Performed By: #### D ATTSH, DATBMP #### [facility] [address] [place] [address] Dr. Pablo Sheth Cholesterol in HDL [Mass/Vol] 52 mg/dL Normal 40-60 [facility] Comment on above: Performed By: #### D ATTSH, DATBMP #### [facility] [address] [place] [address] [address] Pablo Sheth Cholesterol in LDL [Mass/Vol] 141.4 mg/dL Normal [facility] Comment on above: Performed By: #### D ATTSH, DATBMP #### [facility] [address] [place] [address] [address] Pablo Sheth CO2 [Moles/Vol] 29.3 mmol/L Normal 21.0-32.0 [facility] Comment on above: Performed By: #### D ATTSH, DATBMP #### [facility] [address] [place] [address] [address] Pablo Sheth Creatinine [Mass/Vol] 0.77 mg/dL Normal 0.55-1.02 [facility] Comment on above: Performed By: #### D ATTSH, DATBMP #### [facility] [address] [place] [address] [address] Pablo Sheth EGFR-AF CITIZ[place] >60 Normal >=60 [facility] Comment on above: Performed By: #### D ATTSH, DATBMP #### [facility] [address] [place] [address] [address] Pablo Sheth EGFR-NON AF CITIZEN OF [place] >60 Normal >=60 [facility] Comment on above: Performed By: #### D ATTSH, DATBMP #### [facility] [address] [place] [address] [address] Pablo Sheth Glucose [Mass/Vol] 109 mg/dL Critically high 74-106 [facility] Comment on above: Performed By: #### D ATTSH, DATBMP #### [facility] [address] [place] [address] [address] Pablo Sheth HDL NORMAL > or = 60 mg/dl - LO W CARDIOVASCULAR RISK <40 mg/dl - HIGH CARDIOVASCULAR RISK Normal [facility] Comment on above: Performed By: #### D ATTSH, DATBMP #### [facility] [address] [place] [address] [address] Pablo Sheth LDL CALC NORMAL SEE BELOW Normal [facility] Comment on above: Result Comment: <100 mg/dl OPTIMAL 100 - 129 mg/dl NEAR OR ABOVE OPTIMAL 130 - 159 mg/dl BORDERLINE HIGH 160 - 189 mg/dl HIGH >190 mg/dl VERY HIGH Performed By: #### D ATTSH, DATBMP #### [facility] [address] [place] [address] [address] Pablo Sheth Potassium [Moles/Vol] 4.2 mmol/L Normal 3.5-5.1 [facility] Comment on above: Performed By: #### D ATTSH, DATBMP #### [facility] [address] [place] [address] [address] Pablo Sheth Sodium [Moles/Vol] 141 mmol/L Normal 136-145 [facility] Comment on above: Performed By: #### D ATTSH, DATBMP #### [facility] [address] [place] [address] [address] Pablo Sheth Triglyceride [Mass/Vol] 68 mg/dL Normal <=150 [facility] Comment on above: Performed By: #### D ATTSH, DATBMP #### [facility] [address] [place] [address] [address] Pablo Sheth Urea nitrogen [Mass/Vol] 26.0 mg/dL Critically high 7.0-18.0 [facility] Comment on above: Performed By: #### D ATTSH, DATBMP #### [facility] [address] [place] [address] Dr. Pablo Sheth Urea nitrogen/Creatinin e [Mass ratio] 33.8 mg/mg Normal [facility] Comment on above: Performed By: #### D ATTSH, DATBMP #### [facility] [address] [place] [address] [address] Pablo Sheth VLDL CALC 13.6 mg/dL Normal [facility] Comment on above: Performed By: #### D ATTSH, DATBMP #### [facility] [address] [place] [address] Dr. Pablo Sheth Physician Referralon 022 Physician Referral [id number]:127 Normal [facility] Vital Signs Date Time Vital Sign Value Performing Clinician Faci lity 04-15-2024 15:14-0500 Body height 170.18 cm Cornelius Garrison MD Work Phone: [facility] 04-15-2024 15:14-0500 Body mass index (BMI) [Ratio] 27.7 kg/m2 Cornelius Garrison MD Work Phone: [facility] 04-15-2024 15:14-0500 Body temperature 98.4 [degF] Cornelius Garrison MD Work Phone: [facility] 04-15-2024 15:14-0500 Body weight 80.28 kg Cornelius aGrrison MD Work Phone: [facility] 04-15-2024 15:14-0500 Diastolic blood pressure 82 mm[Hg] Cornelius Garrison MD Work Phone: [facility] 04-15-2024 15:14-0500 Heart rate 83 /min Cornelius Garrison MD Work Phone: [facility] 04-15-2024 15:14-0500 Respiratory rate 20 /min Cornelius Garrison MD Work Phone: [facility] 04-15-2024 15:14-0500 SaO2% (BldA) [Mass fraction] 96 % Cornelius Garrison MD Work Phone: [facility] 04-15-2024 15:14-0500 Systolic blood pressure 128 mm[Hg] Cornelius Garrison MD Work Phone: [facility] 03-29-2024 08:56-0500 Body height 170.18 cm Cornelius Garrison MD Work Phone: [facility] 03-29-2024 08:56-0500 Body mass index (BMI) [Ratio] 27.2 kg/m2 Cornelius Garrison MD Work Phone: [facility] 03-29-2024 08:56-0500 Body weight 78.92 kg Cornelius Garrison MD Work Phone: [facility] 03-29-2024 08:56-0500 Diastolic blood pressure 86 mm[Hg] Cornelius Garrison MD Work Phone: [facility] 03-29-2024 08:56-0500 Heart rate 91 /min Cornelius Garrison MD Work Phone: [facility] 03-29-2024 08:56-0500 SaO2% (BldA) [Mass fraction] 95 % Cornelius Garrison MD Work Phone: [facility] 03-29-2024 08:56-0500 Systolic blood pressure 124 mm[Hg] Cornelius Garrison MD Work Phone: [facility] 03-11-2024 15:29-0500 Body height 170.18 cm Cornelius Garrison MD Work Phone: [facility] 03-11-2024 15:29-0500 Body mass index (BMI) [Ratio] 27.8 kg/m2 Cornelius Garrison MD Work Phone: [facility] 03-11-2024 15:29-0500 Body temperature 97.6 [degF] Cornelius Garrison MD Work Phone: [facility] 03-11-2024 15:29-0500 Body weight 80.73 kg Cornelius Garrison MD Work Phone: [facility] 03-11-2024 15:29-0500 Diastolic blood pressure 80 mm[Hg] Cornelius Garrison MD Work Phone: [facility] 03-11-2024 15:29-0500 Heart rate 82 /min Cornelius Garrison MD Work Phone: [facility] 03-11-2024 15:29-0500 Respiratory rate 20 /min Cornelius Garrison MD Work Phone: [facility] 03-11-2024 15:29-0500 SaO2% (BldA) [Mass fraction] 98 % Cornelius Garrison MD Work Phone: [facility] 03-11-2024 15:29-0500 Systolic blood pressure 134 mm[Hg] Cornelius Garrison MD Work Phone: [facility] 02-08-2024 13:55-0400 Body height 170.18 cm MD Cornelius Garrison Work Phone: [facility] 02-08-2024 13:55-0400 Body mass index (BMI) [Ratio] 27.9 kg/m2 MD Cornelius Garrison Work Phone: [facility] 02-08-2024 13:55-0400 Body weight 80.9 kg MD Cornelius Garrison Work Phone: [facility] 02-08-2024 13:55-0400 Diastolic blood pressure 78 mm[Hg] MD Cornelius Garrison Work Phone: [facility] 02-08-2024 13:55-0400 Heart rate 74 /min MD Cornelius Garrison Work Phone: [facility] 02-08-2024 13:55-0400 SaO2% (BldA) [Mass fraction] 96 % MD Cornelius Garrison Work Phone: [facility] 02-08-2024 13:55-0400 Systolic blood pressure 110 mm[Hg] MD Cornelius Garrison Work Phone: [facility] 01-24-2024 14:35-0400 Body height 170.18 cm MD Cornelius Garrison Work Phone: [facility] 01-24-2024 14:35-0400 Body mass index (BMI) [Ratio] 28.3 kg/m2 MD Cornelius Garrison Work Phone: [facility] 01-24-2024 14:35-0400 Body weight 82.21 kg MD Cornelius Garrison Work Phone: [facility] 01-09-2024 15:17-0400 Body height 167.64 cm [facility] 01-09-2024 15:17-0400 Body mass index (BMI) [Ratio] 28.2 kg/m2 [facility] 01-09-2024 15:17-0400 Body weight 79.37 kg [facility] 01-09-2024 15:17-0400 Diastolic blood pressure 91 mm[Hg] [facility] 01-09-2024 15:17-0400 Heart rate 76 /min [facility] 01-09-2024 15:17-0400 SaO2% (BldA) [Mass fraction] 97 % [facility] 01-09-2024 15:17-0400 Systolic blood pressure 135 mm[Hg] [facility] 11-01-2023 08:57-0400 Body height 167.64 cm [facility] 11-01-2023 08:57-0400 Body mass index (BMI) [Ratio] 28.2 kg/m2 [facility] 11-01-2023 08:57-0400 Body weight 79.37 kg [facility] 11-01-2023 08:57-0400 Diastolic blood pressure 90 mm[Hg] [facility] 11-01-2023 08:57-0400 Heart rate 63 /min [facility] 11-01-2023 08:57-0400 Systolic blood pressure 136 mm[Hg] [facility] 10-13-2023 09:19-0400 Body height 167.64 cm [facility] 10-13-2023 09:19-0400 Body mass index (BMI) [Ratio] 28 kg/m2 [facility] 10-13-2023 09:19-0400 Body weight 78.92 kg [facility] 10-13-2023 09:19-0400 Diastolic blood pressure 76 mm[Hg] [facility] 10-13-2023 09:19-0400 Heart rate 78 /min [facility] 10-13-2023 09:19-0400 SaO2% (BldA) [Mass fraction] 98 % [facility] 10-13-2023 09:19-0400 Systolic blood pressure 118 mm[Hg] [facility] 07-31-2023 10:09-0400 Body height 167.64 cm [facility] 07-31-2023 10:09-0400 Body mass index (BMI) [Ratio] 28.8 kg/m2 [facility] 07-31-2023 10:09-0400 Body weight 80.9 kg [facility] 07-31-2023 10:09-0400 Diastolic blood pressure 89 mm[Hg] [facility] 07-31-2023 10:09-0400 Heart rate 74 /min [facility] 07-31-2023 10:09-0400 Systolic blood pressure 138 mm[Hg] [facility] 12-22-2021 14:20-0400 Blood Pressure Location Mihaela CASAS [facility] [place] 12-22-2021 14:20-0400 Diastolic blood pressure 80 mm[Hg] Mihaela CASAS [facility] [place] 12-22-2021 14:20-0400 Heart rate 72 /min Mihaela CASAS [facility] [place] 12-22-2021 14:20-0400 Respiratory rate 16 /min Mihaela CASAS [facility] [place] 12-22-2021 14:20-0400 Systolic blood pressure 116 mm[Hg] Mihaela CASAS [facility] [place] Encounters Encounter Date Encounter Type Care Provider Facility Start: 04-22-2024 End: 04-22-2024 ambulatory Cornelius Garrison MD Work Phone: [facility] Work Phone: Start: 04-22-2024 End: 04-22-2024 Departed Referred Cornelius Garrison MD Work Phone: [facility] Start: 04-15-2024 End: 04-15-2024 ambulatory Cornelius Garrison MD Work Phone: [facility] Work Phone: Start: 04-15-2024 End: 04-15-2024 Patient encounter procedure Cornelius Garrison MD Work Phone: [facility] Work Phone: Start: 04-01-2024 End: 04-01-2024 Patient encounter procedure Kane Perez DO Work Phone: [facility] Comment on above: Lumbosacral radiculo bakari (Primary Dx); Numbness and tingling Start: 04-01-2024 End: 04-01-2024 ambulatory KANE PEREZ Not Available Start: 04-01-2024 End: 04-01-2024 Bamboo flowsheet Kane Perez DO Work Phone: [facility] Start: 04-01-2024 End: 04-01-2024 Bamboo flowsheet Kane Guerraner DO Work Phone: [facility] Start: 03-29-2024 End: 03-29-2024 Patient encounter procedure Cornelius Garrison MD Work Phone: [facility] Work Phone: Start: 03-25-2024 End: 03-25-2024 ambulatory [facility] Facility[facility] Start: 03-21-2024 Non-patient / Non-visit Cornelius Garrison MD Work Phone: [facility] Work Phone: Start: 03-11-2024 End: 03-11-2024 Patient encounter procedure Cornelius Garrison MD Work Phone: [facility] Work Phone: Start: 03-04-2024 Non-patient / Non-visit Cornelius Garrison MD Work Phone: [facility] Work Phone: Start: 03-04-2024 End: 03-04-2024 Patient encounter procedure Cornelius Garrison MD Work Phone: [facility] Work Phone: Start: 03-04-2024 End: 03-04-2024 ambulatory Cornelius Garrison Facility:[facility] Start: 02-23-2024 End: 02-23-2024 ambulatory [facility] Facility:[facility] Start: 02-19-2024 End: 02-19-2024 ambulatory [facility] Facility:[facility] Start: 02-13-2024 End: 02-13-2024 ambulatory [facility] Facility:[facility] Start: 02-08-2024 End: 02-08-2024 ambulatory MD Cornelius Garrison Work Phone: [facility] Work Phone: Start: 02-08-2024 End: 02-08-2024 Patient encounter procedure MD Cornelius Garrison Work Phone: [facility] Work Phone: Start: 02-07-2024 Non-patient / Non-visit MD Mala Garrison Work Phone: [facility] Work Phone: Start: 02-01-2024 Non-patient / Non-visit Cornelius Garrison MD Work Phone: [facility] Work Phone: Start: 01-24-2024 End: 01-24-2024 ambulatory MD Cornelius Garrison Work Phone: [facility] Work Phone: Start: 01-24-2024 End: 01-24-2024 Patient encounter procedure MD Cornelius Garrison Work Phone: [facility] Work Phone: Start: 01-24-2024 End: 01-24-2024 Patient encounter procedure MD Cornelius Garrison Work Phone: [facility] Start: 01-24-2024 End: 01-24-2024 ambulatory MD Cornelius Garrison Work Phone: [facility] Work Phone: Start: 01-19-2024 Non-patient / Non-visit MD Mala Garrison Work Phone: [facility] Work Phone: Start: 01-19-2024 Non-patient / Non-visit MD Mala Garrison Work Phone: [facility] Work Phone: Start: 01-09-2024 End: 01-09-2024 ambulatory [facility] Work Phone: Start: 01-09-2024 End: 01-09-2024 Patient encounter procedure [facility] Work Phone: Start: 11-01-2023 End: 11-01-2023 ambulatory [facility] Work Phone: Start: 11-01-2023 End: 11-01-2023 Patient encounter procedure [facility] Work Phone: Start: 10-13-2023 End: 10-13-2023 ambulatory [facility] Work Phone: Start: 10-13-2023 End: 10-13-2023 Patient encounter procedure [facility] Work Phone: Start: 07-31-2023 End: 07-31-2023 ambulatory [facility] Work Phone: Start: 07-31-2023 End: 07-31-2023 Patient encounter procedure [facility] Work Phone: Start: 05-26-2023 Non-patient / Non-visit [facility] Work Phone: Start: 02-01-2022 End: 02-02-2022 ambulatory Mihaela CASAS Facility:[facility] Start: 02-01-2022 End: 02-01-2022 Patient encounter procedure Mihaela CASAS General [facility] [place] Start: 01-13-2022 Encounter for preprocedural laboratory examination DR MIHAELA CASAS [facility] Start: 01-12-2022 End: 01-13-2022 ambulatory Mihaela CASAS Facility:[id number] Start: 01-10-2022 End: 01-11-[address] MIHAELA CASAS Facility:[facility] Start: 01-10-2022 End: 01-11-2022 Encounter for preprocedural laboratory examination DR MIHAELA CASAS Facility: Start: 12-22-2021 End: 12-23-2021 ambulatory Mihaela CASAS Facility: [facility] Start: 12-22-2021 End: 12-22-2021 Patient encounter procedure Mihaela CASAS General Surgery [facility] [place] Start: 12-17-2021 End: 12-18-2021 ambulatory CORNELIUS GARRISON PROVIDER Facility:[facility] Procedures Date Procedure Procedure Detail Performing Clinician Start: 04-01-2024 End: 04-01-2024 Needle emg ea extremty w/paraspinl area complete Kane Keith DO Work Phone: Start: 01-24-2024 X-ray of both knees, three views MD Anoop Garrison Work Phone: Start: 01-12-2022 Colonoscopy Mihaela RAJINDER Start: 01-12-2022 Esophagogastroduodenoscopy Mihaela NILL Bilateral oophorectomy Ebenezer el NILL Colonoscopy Mihaela NILL Decompression of thoracic spine Mihaela NILL Discectomy of spine Mihaela NILL Comment on above: T12-L1 T12-L1 Esophagogastroduodenoscopy M ichael NILL Excision of bunion Mihaela N ILL Repair of vaginal tear Ebenezer el NILL Tonsillectomy Mihaela NILL Plan of Treatment Date Care Activity Detail Author Start: 04-05-2024 Patient referral [facility] Work Phone: Start: 04-01-2024 End: 04-01-2024 Patient encounter procedure 04/01/2024 3:00 PM EST Procedure Visit [facility] [address] [place] [address] Kane Perez DO [address] [place] [address] Arrived [facility] Comment on above: Arrived Start: 01-24-2024 X-ray of both knees, three views XR knee BI 3V - NOT FOR ER USE [facility] Start: 01-24-2024 XR Knee - bilateral 3 Views [facility] Start: 01-10-2024 Patient referral [facility] Work Phone: CT Unspecified body region [facility] CT Unspecified body region [facility] DXA Skeletal system.axial Views for bone density [facility] Patient Education Low back pain in adults [facility] Work Phone: Patient referral [facility] Work Phone: US Lower extremity v ein - right [facility] US Thyroid gland [facility] Immunizations Immunization Date Immunization Notes Care Provider Fa cility 03-11-2024 diphtheria, tetanus toxoids and acellular pertussis vaccine, unspecified formulation Cornelius Garrison MD Work Phone: [facility] 03-29-2021 COVID-19 mRNA, Comirnaty (Pfizer) [facility] 08-11-2020 COVID-19 mRNA, Comirnaty (Pfizer) [facility] 07-21-2020 COVID-19 mRNA, Comirnaty (Pfizer) [facility] 10-07-2018 diphtheria, tetanus toxoids and acellular pertussis vaccine, unspecified formulation [facility] 02-05-2014 tetanus and diphther ia toxoids, adsorbed, preservative free, for adult use (5 Lf of tetanus toxoid and 2 Lf of diphtheria toxoid) [facility] Payers Date Payer Category Payer Medicare [id number] 2024 Medicare 2023 Unknown 2021 Unknown [id number] 1960 Self-pay [id number] 1960 Unknown [id number] 1959 Unknown [id number] [id number] 1959 Unknown [id number] [id number] 1959 Unknown [id number] [id number] 1959 Unknown [id number] [id number] 1959 Unknown [id number] [id number] 1959 Unknown [id number] [id number] 1959 Unknown [id number] [id number] 1959 Unknown [id number] [id number] 1959 Unknown [id number] [id number] 1959 Unknown [id number] [id number] 1959 Unknown [id number] [id number] Private Health Insurance [employer] MCR PFFS G [id number] Unknown [id number] Unknown [id number] Unknown MMO [employer] [id number] Unknown Regular Insurance [id number] Social History Date Type Detail Facility Start: 12-22-2021 Heavy tobacco smoker (finding) [facility] Female [facility] Start: 07-31-2023 End: 04-15-2024 Tobacco smoking status NHIS Smoker (finding) [facility] Start: 1960 Sex Assigned At Female F [facility] Tobacco smoking status MTIS Tobacco smoking consumption unknown [facility] Start: 1960 Sex assigned at Not on file N [facility] Start: 04-15-2024 End: 04-24-2024 Sex Female (finding) [facility] Functional Status Date Assessment Result Facility 12-22-2021 N/A [facility] [place] Clinical Notes 12-22-2021 to 04-01-2024 BRENDA Nuñez - 04/01/2024 3:00 PM EST Note Date & Type Note Facility 04-01-2024 History of Present illness Narrative Images from the original note were not included. Reason for Appointment: EMG Patient: Cristine Leslieaver : 1960 [facility] Computer: Meetyl Referring Physician: Ofelia Arceo PA-C EMG: BLE meter maintenance person: Daniel Dougherty RT(R) Office Location: [place] Reason for EMG: c/o numbness/tingling in bilateral [...] of the test. documented in this encounter [facility] 02-23-2024 Note Patient Education Ma terials Name: Cristine Manley Current Date: 02/23/2024 07:10:10 [place] : 1960 [facility]: [id number] The following sheet(s) are the Patient Education [...] for continued care. Thank you for choosing [facility] for your care. 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 April 15, 2024 3:12pm Moderate persistent asthma, uncomplicated acute April 3:12pm [facility] Work Phone: 1(753) 172-952610-16-2024 Evaluation note* Diagnosis Onset Date Resolution Status Admit Date Bilateral knee pain acute Oct er 2023 2:05pm Primary osteoarthritis of rk th knees acute January 23 2:05pm COPD exacerbation acute February 08, 2024 1:31pm Lumbar radiculopathy, chronic acute February 08, 2024 1:31pm Menopause acute February 08, 2024 1:31pm Rib fracture acute January 1:31pm Cigarette nicotine dependenc e with nicotine-induced disorder acute D ec2023 3:14pm Encounter for immunization acute March 11, 2024 3:14pm Encounter for screening for lung cancer acute March 11 3:14pm Moderate persistent asthma, uncomplicated acute March 11 3:14pm Lumbar radiculopathy, chronic acute March 29, 2024 8:45am Pain in posterior right lowe r extremity acute March 29 8:45am Right thyroid nodule acute Dece 2023 8:45am Cigarette nicotine dependenc e with nicotine-induced disorder acute J anuary 2024 3:12pm Encounter for screening for lung cancer acute April 15 3:12pm Moderate persistent asthma, uncomplicated acute April 15 3:12pm [facility] Work Phone: 1(263) 685-486110-05-2022 NoteOPERATIVE NOTE OPERATION DATE: 01/12/2022 PREOPERATIVE DIAGNOSIS: [...] on the pathology of the polyp. CC: Cornelius Garrison M.D.[facility] [id number] NoteChief Complaint consultation for epigastric pain HPI [...] Chronic obstructive pulmonary dise (more content not included)...[facility]:Result Comment: Electronically Signed By: RAJINDER TAVERAS, Mihaela Trujillo\Date and Time Signed: 12/22/21 17:34 EDTEvaluation + Plan note No data available for this section [facility] [place] Evaluation note* Diagnosis Onset Date Resolution Status Lumbar radiculopathy, chronic acute [facility] Work Phone: Evaluation note* Diagnosis Onset Date Resolution Status Lumbar radiculopathy, chronic acute Headache acute Joint pain acute Tick bite [facility] Work Phone: Evaluation note* Diagnosis Onset Date Resolution Status Headache acute Joint pain acute Tick bite acute Chronic obstructive pulmonary disease, unspecified acute Lumbar radiculopathy, chronic acute [facility] Work Phone: Evaluation note* Diagnosis Onset Date Resolution Status Chronic obstructive pulmonary disease, unspecified acute Lumbar radiculopathy, chronic acute Bilateral knee pain acute COPD exacerbation acute Lumbar pain acute Lumbar radiculopathy, chronic acute Bilateral knee pain acute Primary osteoarthritis of both knees [facility] Work Phone: Evaluation note* Diagnosis Onset Date Resolution Status Bilateral knee pain acute COPD exacerbation acute Lumbar pain acute Lumbar radiculopathy, chronic acute Bilateral knee pain acute Primary osteoarthritis of both knees acute Menopause acute [facility] Work Phone: Evaluation note* Diagnosis Lumbosacral radiculopathy- Primary Thoracic or lumbosacral neuritis or radiculitis, unspecified Numbness and tingling Disturbance of skin sensation documented in this encounter [facility] HealthcareHospital Discharge instructions No data available for this section [facility] [place] Progress note No data available for this section [facility] [place] Reason for visit Narrative* Other Medical (Routine) - Closed Specialty Diagnoses / Procedures Referred By Contac t Referred To Contact Neurology Diagnoses Neuralgia and neuritis, unspecified Procedures WI NEEDLE EMG EA EXTREMTY W/PARASPINL AREA COMPLETE WI NERVE CONDUCTION STUDIES 9-10 STUDIES Ofelia Arceo PA-C [address] [place] [address] Phone: tel: fax: Cecil Fields MD [address] [place] [address] Phone: tel: fax: Referral ID Status Reason Start Date Expiration Date V isits Requested Visits Authorized [id number] Closed Perform Procedure 03/27/2024 09/23/2024 1 1 [facility] Healthcare Summary Purpose Family History No [...] Time Advance Directives No July 30 9:55am Advance Directive Response Recorded Date/ Time [...] in right knee January 6:54am CONSULT DR. BLADIMIR TIRADO KNEE PAIN, NX Oc tober 2023 2:05pm CC Adult Risk Stratification January 3:05pm Fracture f/u/Discuss-HIGH RISK January 102023 1:31pm J44.1 March 04, 2024 2:34pm J44.1 March 04, 2024 6:43pm Ref: Dr. 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 April 15, 2024 3:12pm Moderate persistent asthma, uncomplicate d April 15, 2024 3:12pm Additional Source Comments Care Team (unrecognized sect ion and content) Team Status: Active Member Role Status Dates Cornelius Garrison MD Primary Care Provider Active Team Status: Active Member Role Status Dates Cornelius Garrison MD Primary Care Provider Active Start: January 19, 2024 Delvin Campbell DO Attending Provider Active S tart: January 19, 2024 Team Status: Active Member Role Status Dates Cornelius Garrison MD Primary Care Provider Active Start: [...] Dominick Garrison MD Primary Care Provide r, Other Provider Active Start: March 04, 2024 Reynaldo Tee MD Attending Provider Active Start: March 04, 2024 Team Status: Inactive Member Role Status Dominick Garrison MD Primary Care Provide r, Referring [...] 2024 End: April 15, 2024 Team Status: Inactive Member Role Status Dates Cornelius Garrison MD Primary Care Provide r, Attending Provider Active Start: July 31, 2023 End: July 31, 2023 Team Status: Inactive Member Role Status Dates Cornelius Garrison MD Primary Care Provider Active Start: October 13, 2023 End: October 13, 2023 Brittanie Siu APRN REPORT PROGRAMMER-C Attending Provider Act onesimo Start: October 13, 2023 End: October 13, 2023 Team Status: Active Member Role Status Dates Cornelius Garrison MD Primary Care Provider Active Start: May 26, 2023 EULA Luis Attending Provider Active Start : May 26, 2023 Team Status: Inactive Member Role Status Dates Cornelius Garrison MD Primary Care Provide r, Attending Provider Active Start: November 01, 2023 End: November 01, 2023 Team Status: Inactive Member Role Status Dates Cornelius Garrison MD Primary Care Provide r, Attending Provider Active Start: January 09, 2024 End: January 09, 2024 Team Status: Active Member Role Status Dates Cornelius Garrison MD Primary Care Provider Active Start: January 24, 2024 Alexandro Galvez DO Attending Provider Active S tart: January 24, 2024 Manager Business Planning Relationship Specialty Start Date End Date Cornelius Garrison MD [address] [place] [phone] PCP - General Family Medicine 03/27/24 Ofelia Arceo MD [address] [address] Referring Physician Internal Medicine 03/27/24 Manager Business Planning Relationship Specialty Start [place] [address] [place] [phone] PCP - General Family Medicine 03/27/24 Ofelia Arceo MD [address] [address] Referring Physician Internal Medicine 03/27/24 Team Status: Inactive Member Role Status Dates Cornelius Garrison MD Attending Provider Active St art: April 22, 2024 End: April 22, 2024 INFORMATION SOURCE (unrecogn ized section and content) DATE CREATED AUTHOR 02/21/2022 Spenser Ritchie [facility] DATE CREATED AUTHOR AUTHOR'S ORGANIZ ATION 04/01/2022 [facility] pital DATE CREATED AUTHOR AUTHOR'S ORGANIZ ATION 03/27/2024 [facility] DATE CREATED AUTHOR AUTHOR'S ORGANIZ ATION 04/03/2024 [facility] DATE CREATED AUTHOR AUTHOR'S ORGANIZ ATION 04/27/2024 [facility] Goals (unrecognized section and content) [...] BE BASED ON THE PRIMARY CLINICAL RECORDS. [email or web address] provides no warranty or guarantee of the accuracy or completeness of information in this document.
[2024-04-29 07:02] VITALS: BP 139/88; PULSE 86; TEMP 35.8; O2SAT 97
[2024-04-29 07:52] VITALS: BP 150/71; PULSE 61; O2SAT 98
[2024-04-29 07:53] VITALS: BP 161/76; PULSE 61; O2SAT 99
--- NOTE | 2024-04-29 07:56 | P.ON_ITS ---
Date of procedure: 04/29/24 Pre-op diagnosis: Pain due to lumbar stenosis with neurogenic claudication Post-op diagnosis: same as pre-op Procedure: Procedure: Left L4-5, L5-S1 transforaminal epidural steroid injection Medications: Bupivacaine 0.25% 2cc, lidocaine 2% 1cc, depomedrol 80mg The patient was seen and examined in the preoperative holding area.? Informed consent was obtained and placed on the chart.? Patient was brought to the medical procedure unit and placed in the prone position where a timeout was completed verifying the correct patient, procedure site, position, and planned special equipment using sterile aseptic technique.? Under direct fluoroscopic visualization a 25-gauge Quincke tipped spinal needle was advanced to the designated neural foramen where contrast dye was injected to show adequate spread.? The needle was inserted at level left L4-5. There was no evidence of vascular or adverse uptake.? Epidural spread was appreciated.? The above- mentioned injectate was then placed in a 1.5 mL aliquot preceded by negative aspiration.? The needle was removed. The needle was inserted and the procedure repeated at level left L5-S1.? The surgery site was covered.? Patient was taken to the postprocedural recovery area and monitored for an appropriate length of time before found suitable for discharge in the accompaniment of a responsible adult. Anesthesia: Local Surgeon: Duong Oreilly Pathology: none sent Condition: stable Disposition: no change
[2024-04-29] MEDS: LIDOCAINE HCL 2% 400 MG/20 ML MDV INJ (07:58)
[2024-04-29] MEDS: 0.9 % SODIUM CHLORIDE 10 ML SYRINGE - SALINE FLUSH INJ (07:58)
[2024-04-29] MEDS: IOHEXOL 240 MG/ML - 10 ML VIAL 12 MG INJ (07:58)
[2024-04-29] MEDS: METHYLPREDNISOLONE ACETATE 80 MG/ML VIAL INJ (07:58)
[2024-04-29] MEDS: BUPIVACAINE HCL 0.25% PF 25 MG/10 ML VIAL INJ (07:58)
== END 2024-04-29 08:02 | disposition home or self-care (01) ==
LOC: SURGOUT 06:47
PROVIDERS: PCP Family Medicine; Visit Provider Anesthesiology
DX: M48.062 Spinal stenosis, lumbar region with neurogenic claudication (principal)
CPT/HCPCS: 64483; 64484; J0665; J1010; Q9966

== ENCOUNTER 2024-05-08 07:37 | Outpatient (OUT) | payer MEDICARE, OTHER, SELFPAY ==
--- OUTSIDE RECORDS SUMMARY | 2024-05-08 07:40 | XMS_ITS | CCD ---
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 Role Phone CELIA GARRISON Primary Care Physician [phone] CELIA AYOUB Referring Unavailab le NILL, Mihaela Michelle Attending [...] Care Provider DO Alexandro Galvez Attending Provider Celia Garrison MD Primary Care Provider Ofelia Arceo MD Unavailable KANE PEREZ Attending Unavailable OFELIA ARCEO Referring Unavailable Celia Garrison MD Primary Care Provider [phone] Alexandro Galvez DO Attending Provider [phone] Celia Garrison MD Attending Provider Celia Garrison MD Primary Care Provider [phone] Celia Garrison Admitting Unavailable Celia Garrison Attending Unavailable Alexandro Galvez Attending Unavailable Alexandro Galvez Admitting Unavailable Celia Garrison Primary Care Unavailable Celia Garrison Attending Unavailable Celia Garrison Primary Care Unavailable Celia Garrison Admitting Unavailable Celia Garrison MD Primary Care Unava ilable Adis PA-C, Ofelia Grace Attending Unavailab le Adis PA-C, Ofelia Grace Admitting Unavailab Tuan TAVERAS, Celia Milanbeth Primary [facility] Unava ilable Adis PA-C, Ofelia Grace Attending Unavailab jass Oreilly MD, Duong Wagoner Attending Kya Garrison MD, [facility] Abhi [facility] MD, Celia Milanbeth Primary [facility] Abhi Oreilly MD, Duong Wagoner Attending Unavailable Bladimir TAVERAS[facility] Adis PA-C, Ofelia Grace Attending Unavailab le Adis PA-C, Ofelia Grace Attending Unavailab jass Garrison MD, Celia Milanbeth Referring Abhi Garrison MD, [facility]hi [facility] MD, Celia [facility] Unava ilable Adis PA-C, Ofelia Grace Attending Unavailab le Allergies Allergy Classification Reported Allergen(s) Allergy Type Date of Onset Reaction(s) Facility (3 sources) Acetaminophen / oxyCODONE; Translations: [acetaminophen-oxy codone] Drug Allergy Nausea (finding) [facility] (3 sources) Alendronate; Translations: [alendronate] Drug Allergy Muscle pain (finding) [facility] (12 sources) Clarithromycin; Translations: [clarithromycin] Drug Allergy 07-31-19 Unknown (qualifier value) [facility] (13 sources) levoFLOXacin; Translations: [levofloxacin] Drug Allergy 07-31-19 24 Eruption of skin (disorder) [facility] (4 sources) Sulfonamides (Antibiotic); Translations: [sulfa drugs] Drug allergy Unknown (qualifier value) [facility] (1 source) Acetaminophen / oxyCODONE Drug Allergy 03-25-20 16 [facility] (1 source) Alendronate Drug Allergy 03-18-20 16 [facility] (1 source) Clarithromycin Drug Allergy 03-25-20 16 [facility] (1 source) levoFLOXacin Drug Allergy 03-25-20 16 [facility] (1 source) Quinolones (Antibiotic) Drug allergy (disorder) 03-25-20 16 [facility] (1 source) Sulfonamides (Antibiotic) Drug allergy (disorder) 05-01-19 14 [facility] (1 source) Acetaminophen Drug Allergy 07-31-19 24 [facility] (9 sources) Alendronate Drug Allergy 07-31-19 24 [facility] (9 sources) oxyCODONE Drug Allergy 07-31-19 24 [facility] (9 sources) Sulfonamides (Antibiotic) Allergy to substance 07-31-19 Comment:as a young child, pt. cannot recall reaction [facility] (9 sources) Biaxin XL *MACROLIDES* Allergy to substance 07-28-19 [facility] (1 source) Ciprofloxacin; Translations: [Cipro] Drug Allergy [facility] Repository (1 source) symbalta; Translations: [symbalta] Propensity to adverse reactions to drug (disorder) [facility] Repository Medications Current Medications Medication Drug [...] 2:01pm Start: 08-03-2023 take 1 tablet by margarito [...] Rinse after use Start: 03-29-2024 End: 04-15-2024 Dnefshigpek-Vvcxbweog-Ppctex er (Trelegy Ellipta) 200-62.5-25 mcg blister with device Discontinued 1 INH INHALATION Daily 60 March 29, 2024 9:38am April 15, 2024 3:41pm Rinse after use Start: 03-11-2024 End: 03-29-2024 Eughaqniaqx-Wcidpevrq-Zdeicr er (Trelegy Ellipta) 200-62.5-25 mcg blister with [...] for reconstitution Discontinued 0.5 ML IM Once March 11, 2024 12:00am March 29, 2024 9:04am 60 actuat tiotropium 0.16648 mg/actuat inhalation spray (6 sources) Anticholinergic Start: 02-08-2024 End: 03-11-2024 take 1 puff(s) by inhalation once daily in the morning Tiotropium [place] (Spiriva Respimat) 1.25 mcg/actuation mist Discontinued 2 [...] 01-24-2024 Chronic Other aftercare (1 source) 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; Translations: [OTH TANKMAN CURRENT DRUG THERAPY] Onset: 01-17-2022 Episodic Other aftercare (1 source) Long-term current use of inhaled steroid; Translations: [[facility] (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 of 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] 04-15-2024 Episodic Other aftercare (1 source) [facility] (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 of 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; Translations: [Long-term [...] Test Name Value Interpretation Reference Range Facility [facility] 04-22-2024 L -------- -------- Specimen: [id number] Received: 04/24/24 Status: OMAR Hayes Num: [id number] Spec Type: Cytology Subm Dr: Celia Garrison MD Tissues: A FNA SLIDES NOPATH (INF RT THY) Procedures: Cyto Int and Re, PAPSTN/5 -------- Age/ Patient Sex Location Account Attending Physician -------- Cristine Manley 64/F [place] [id number] Celia Garrison MD -------- SPEC NUM: [id number] RECD: 04/24/24 STATUS: OMAR HAYES NUM: [id number] TORI: 04/22/24- [facility] DR: Celia Garrison MD ENTERED: 04/24/[address] [facility] [address]: Les Lee MD SPEC TYPE: Cytology DEPT: [facility] ENTERED BY: [id number] RECV BY: [id number] ORDERED: Cyto Int and Re, PAPSTN/5 ORDERED: Cyto Int and Re, PAPSTN/5 Pathological Diagnosis Right thyroid nodule, inferior, FNA cytology -Adequate follicular groups in the ThinPrep smear, appropriate for assessment, consisting of small to occasionally slightly larger and reactive follicular cells, suggesting dimorphic population and the category 3 Proctor system, atypia of the undetermined significance, otherwise [...] vial stored at -20 for microscopic examination. (NV/tx) -------- Specimen: [id number] Received: 04/24/24 Status: OMAR Hayes Num: [id number] Spec Type: Cytology Subm Dr: Celia Garrison MD Tissues: A FNA SLIDES NOPATH (INF RT THY) Procedures: Cyto Int and Re, PAPSTN/5 -------- Patient: Cristine Manley [id number] (Continued) -------- Specimen: [id number] Received: 04/24/24 (Continued) Signed (signature on file) Gail Sheth MD 04/24/24 1439 -------- Specimen: [id number] Received: 04/24/24 Status: OMAR Hayes Num: [id number] Spec Type: Cytology Subm Dr: Celia Garrison MD Tissues: A FNA SLIDES NOPATH (INF RT THY) Procedures: Cyto Int and Re, PAPSTN/5 -------- Patient: Cristine Manley [id number] (Continued) -------- Specimen: [id number] Received: 04/24/24 (Continued) Microscopic Description Microscopic examinations are performed supporting the above interpretation CPT Codes 57251 -------- -------- Specimen: [id number] Received: 04/24/24 Status: OMAR Hayes Num: [id number] Spec Type: Cytology Subm Dr: Celia Garrison MD Tissues: A FNA SLIDES NOPATH (INF RT THY) Procedures: Cyto Int and Re, PAPSTN/5 -------- Patient: Cristine Manley [id number] (Continued) -------- Signed (signature on file) Gail Sheth MD 04/24/24 0882 Normal [facility] EMG 2 Extremitieson 04-01-20 EMG/NCS BLE Right L5/S1 radic [place] S1/2 radic [facility] [place] 9-10 Nerveson 04-01-2024 EMG/NCS BLE Right L5/S1 radic [place] S1/2 radic [facility] Provider Letteron 03-26-2024 Provider Letter (Inserted Image. Gela ble to display) Celia Garrison MD [address], [place] [address] Re: Cristine Manley Date of Visit: 03/25/2024 Dear Celia Garrison MD, This patient was recently seen in the neurosurgical office. Please see attached note for further details. Let me know if you have any questions or concerns. Sincerely, DEMARCUS Gan Providers: The following document(s) were included in the letter: March 25, 2024 17:40:13 EST - (03/25/2024) Neurosurgery Office Visit Note Normal [facility] Neurosurgery Office/Clinic N oteon 03-25-2024 Neurosurgery Office/Clinic Note Chief Complaint CT thoracic, lumbar, XR lumbar, hips and neck review History of Present Illness The patient is a pleasant 64-year-old right-handed female with history of chronic nicotine use, asthma and recently diagnosed COPD for which she is planned to see a correctional counselor in the near future. She also has [...] though does not resolve. Oral narcotics including Whiting which makes pain tolerable though does not [...] increases slightl (more content not included)... Normal [facility] Basophils Auto (Bld) [#/Vol] on 03-21-2024 Basophils (Bld) [#/Vol] Automated basophil count 0.0-0.1 [facility] Basophils/100 WBC Auto (Bld) on 03-21-2024 Basophils/100 WBC (Bld) Automated basophil % 0.2-2.0 [facility] Eosinophils/100 WBC Auto (Bl d)on 03-21-2024 Eosinophils/100 WBC (Bld) Automated eosinophil % 0.9-7.0 [facility] Erythrocyte distribution wid th Auto (RBC) [Ratio]on 03-21-2024 Erythrocyte distribution width (RBC) [Ratio] Erythrocyte distribution width [Ratio] by Automated count 11.0-15.0 [facility] Hematocrit Auto (Bld) [Volum e fraction]on 03-21-2024 Hematocrit (Bld) [Volume fraction] Hematocrit [Volume Fraction] of Blood by Automated count 36.0-48.0 [facility] Hemoglobin [Mass/volume] in Bloodon 03-21-2024 Hemoglobin (Bld) [Mass/Vol] Hemoglobin [Mass/volume] in Blood 12.0-16.0 [facility] IgE [Units/volume] in Serum or Plasmaon 03-21-2024 IgE Qn IgE [Units/volume] i n Serum or Plasma [phone] [facility] Comment on above: Performed at: [address] [id number] Director: Levi Pedroza MD, Phone: [phone] Laboratory - Hematology and Cell countson 03-21-2024 Immature granulocytes/100 WBC (Bld) 0.1 % 0.0-0.5 [facility] Leukocytes [#/volume] correc shant for nucleated erythrocytes in Blood by Automated counon 03-21-2024 WBC corrected for nucl RBC Auto (Bld) [#/Vol] Leukocytes [#/volume] corrected for nucleated erythrocytes in Blood by Automated coun 4.0-11.0 [facility] Lymphocytes Auto (Bld) [#/Vo l]on 03-21-2024 Lymphocytes (Bld) [#/Vol] Lymphocytes [#/volume] in Blood by Automated count 1.2-3.8 [facility] Lymphocytes/100 WBC Auto (Bl d)on 03-21-2024 Lymphocytes/100 WBC (Bld) Lymphocytes/100 leukocytes in Blood by Automated count Low 20.5-60.0 [facility] MCH Auto (RBC) [Entitic mass ]on 03-21-2024 MCH (RBC) [Entitic mass] MCH [Entitic mass] by Automated count 26.7-34.0 [facility] MCHC Auto (RBC) [Mass/Vol]on 03-21-2024 MCHC (RBC) [Mass/Vol] MCHC [Mass/volume] by Automated count 29.9-35.2 [facility] MCV Auto (RBC) [Entitic vol] on 03-21-2024 MCV (RBC) [Entitic vol] MCV [Entitic volume] by Automated count 81.0-99.0 [facility] Monocytes Auto (Bld) [#/Vol] on 03-21-2024 Monocytes (Bld) [#/Vol] Automated blood monocyte count 0.3-0.8 [facility] Monocytes/100 WBC Auto (Bld) on 03-21-2024 Monocytes/100 WBC (Bld) Automated monocyte % 1.7-12.0 [facility] Neutrophils Auto (Bld) [#/Vo l]on 03-21-2024 Neutrophils (Bld) [#/Vol] Neutrophils [#/volume] in Blood by Automated count High 1.4-6.5 [facility] Neutrophils/100 WBC Auto (Bl d)on 03-21-2024 Neutrophils/100 WBC (Bld) Automated neutrophil % 43.0-75.0 [facility] No Panel Informationon 03-21 Eosinophils # (Auto) 0.1 10 3/uL 0.0-0.7 [facility] Immature Granulocyte # (Auto) 0.01 10 3/uL 0.00-0.03 [facility] Platelet mean volume Auto (B ld) [Entitic vol]on 03-21-2024 Platelet mean volume (Bld) [Entitic vol] Platelet mean volume [Entitic volume] in Blood by Automated count 9.5-13.5 [facility] Platelets Auto (Bld) [#/Vol] on 03-21-2024 Platelets (Bld) [#/Vol] Platelets [#/volume] in Blood by Automated count 150-450 [facility] RBC Auto (Bld) [#/Vol]on RBC (Bld) [#/Vol] Erythrocytes [#/volu me] in Blood by Automated count 4.20-5.40 [facility] Provider Letteron 02-29-2024 Provider Letter (Inserted Image. Gela ble to display) Celia [facility] [facility] [place] [address] Re: Cristine Manley Date of Visit: 02/23/2024 Dear Celia Garrison MD, Please see attached results on this mutual patient you have with [facility] Result Name Current Result CT Spine Thoracic/Lumbar Myelogram w/Con 02/23/2024 Let me know if you have any questions or concerns. Sincerely, Jaclyn Bliss [facility] MANAGER RETAIL Clinical [facility] Sports Medicine Specialist C C Providers: Normal [facility] CT Spine Thoracic/Lumbar Mye logram w/Conon [...] Electronically Signed in Other Vendor System) Normal [facility] PTon 02-23-2024 INR Coag (PPP) [Relative time] 1.0 {INR} Normal <=3.5 [facility] Comment on above: Result Comment: INR has no normal range. INR Therapeutic range is: 2.0-3.0 (AF, CVA, TIAs, DVT prophylaxis, acute DVT) 2.5-3.5 ([facility] heart valves, recurrent thrombosis/emboli) Performed By: #### P TINR #### [facility] [address] [place] [address] PT Coag (PPP) [Time] 10.3 s Normal 9.2-12.0 [facility] Comment on above: Performed By: #### P TINR #### [facility] [address] [place] [address] PTTon 02-23-2024 aPTT Coag (Bld) [Time] 24.8 s Normal 19.5-28.2 [facility] Comment on above: Performed By: #### P TT #### [facility] [address] [place] [address] Platelet Counton 02-23-2024 Platelet 300 x10*3/mcL Normal 150-450 [facility] Comment on above: Performed By: #### P LTS #### [facility] [address] [place] [address] XR Hip 2-3 Views Lefton 02-08 XR [...] Electronically Signed in Other Vendor System) Normal [facility] XR Myelography Spine 2 or Mo [...] Electronically Signed in Other Vendor System) Normal [facility] XR Spine Cervical 4 or 5 Vie on 02-23-2024 XR Spine Cervical 4 or 5 [...] Electronically Signed in Other Vendor System) Normal [facility] XR Spine Lumbosacral Bending 2-3 Viewson [...] Electronically Signed in Other Vendor System) Normal [facility] Neurosurgery Office/Clinic N sherry 02-13-2024 Neurosurgery Office/Clinic Note Chief Complaint Back lumbar pain radiculopathy consult History of Present Illness The patient is a pleasant 64-year-old right-handed female with history of chronic nicotine use, asthma and recently diagnosed COPD for which she is planned to see a correctional counselor in the near future. She also has [...] though does not resolve. Oral narcotics including Whiting which makes pain tolerable though does not [...] Newly diagnosed COPD, scheduled to see a correctional counselor in the near future Chronic nicotine use [...] marijuana use. 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 She denies any Worker's Comp. related claims regarding today's visit FAMILY HISTORY: Lung cancer: Father Diabetes mellitus: Mother Hypertension: Mother Review of Systems Constitutional: [No fevers, chills, sweats] Eye: [No recent visual problems] ENMT: [ (more content not included)... Normal [facility] Provider Letteron 02-13-2024 Provider Letter (Inserted Image. Gela ble to display) Celia Garrison MD [address] [place] [address] Re: Cristine Manley Date of Visit: 02/13/2024 Dear Celia Garrison MD, This patient was recently seen in the neurosurgical office. Please see attached note for further details. Let me know if you have any questions or concerns. Sincerely, DEMARCUS Gan Providers: The following document(s) were included in the letter: February 13, 2024 09:39:53 EST - (02/13/2024) Neurosurgery Office Visit Note Normal [facility] XR knee BI 3V - NOT FOR ER U Sanam 01-24-2024 XR knee BI 3V - NOT FOR ER USE [facility] [address] [place] [address] XRay Report Signed Patient: Cristine Manley MR#: [id number] 54 : 1960 Acct:[id number] Age/Sex: 64 / F ADM Date: 01/24/24 Loc: [facility] Room: Type: [facility] Attending Dr: Alexandro Galvez DO Copies to: [...] Sunday Graham M.D.01/24/2024 3:45 PM Dictation Location: [place] [address] Transcribed By: [facility] 01/24/24 154 Dictated By: Sunday Graham II, MD 01/24/24 154 Signed By: 01/24/24 154 Normal [facility] Basophils Auto (Bld) [#/Vol] on 01-19-2024 Basophils (Bld) [#/Vol] 0.0 10 3/uL 0.0-0.1 [facility] Basophils (Bld) [#/Vol] Automated basophil count 0.0-0.1 [facility] Basophils/100 WBC Auto (Bld) on 01-19-2024 Basophils/100 WBC (Bld) 0.2 % 0.2-2.0 [facility] Basophils/100 WBC (Bld) Automated basophil % 0.2-2.0 [facility] Eosinophils/100 WBC Auto (Bl d)on 01-19-2024 Eosinophils/100 WBC (Bld) 4.3 % 0.9-7.0 [facility] Eosinophils/100 WBC (Bld) Automated eosinophil % 0.9-7.0 [facility] Erythrocyte distribution wid th Auto (RBC) [Ratio]on 01-19-2024 Erythrocyte distribution width (RBC) [Ratio] 13.1 % 11.0-15.0 [facility] Erythrocyte distribution width (RBC) [Ratio] Erythrocyte distribution width [Ratio] by Automated count 11.0-15.0 [facility] Estimated glomerular filtrat ion rate (GFR) non- Americanon 01-19-2024 GFR/1.73 sq M.predicted among non-blacks MDRD (S/P/Bld) [Vol rate/Area] mL/min/{1.73_m2} >=60 mL/min/1.73 m 2 [facility] GFR/1.73 sq M.predicted among non-blacks MDRD (S/P/Bld) [Vol rate/Area] Estimated glomerular filtration rate (GFR) non- >=60 mL/min/1.73 m 2 [facility] Fibrin D-dimer [Presence] in Platelet poor plasma by Latex agglutinationon 01-19-2024 Fibrin D-dimer LA Ql (PPP) 0.43 mg/L FEU <=0.59 [facility] Comment on above: Increases in D-Dimer [...] Platelet poor plasma by Latex agglutination <=0.59 [facility] Comment on above: Increases in D-Dimer [...] Hematocrit (Bld) [Volume fraction] 39.5 % 36.0-48.0 [facility] Hematocrit (Bld) [Volume fraction] Hematocrit [Volume Fraction] of Blood by Automated count 36.0-48.0 [facility] Hemoglobin [Mass/volume] in Bloodon 01-19-2024 Hemoglobin (Bld) [Mass/Vol] 12.8 g/dL 12.0-16.0 [facility] Hemoglobin (Bld) [Mass/Vol] Hemoglobin [Mass/volume] in Blood 12.0-16.0 [facility] Laboratory - Chemistry and C hemistry - challengeon 01-19-2024 Calcium [Mass/Vol] 9.0 mg/dL 8.5-10.1 [facility] Chloride [Moles/Vol] 105 mmol/L 98-107 [facility] CO2 [Moles/Vol] 28.7 mmol/L 21.0-32.0 [facility] Creatinine [Mass/Vol] 0.92 mg/dL 0.55-1.02 [facility] GFR/1.73 sq M.predicted MDRD (S/P/Bld) [Vol rate/Area] mL/min/{1.73_m2} >=60 mL/min/1.73 m 2 [facility] Glucose [Mass/Vol] 78 mg/dL 74-106 [facility] Potassium [Moles/Vol] 4.0 mmol/L 3.5-5.1 [facility] Sodium [Moles/Vol] 138 mmol/L 136-145 [facility] Urea nitrogen [Mass/Vol] 27.0 mg/dL High 7.0-18.0 [facility] Urea nitrogen/Creatinin e [Mass ratio] 29.3 mg/mg [facility] Laboratory - Hematology and Cell countson 01-19-2024 Immature granulocytes/100 WBC (Bld) 0.3 % 0.0-0.5 [facility] Laboratory - Microbiology an d Antimicrobial susceptibilityon 01-19-2024 SARS-CoV-2 (COVID-19) RNA JOSELUIS+probe Ql (Unsp spec) Negative NEGATIVE [facility] Comment on above: This test has not be en FDA cleared or approved, but has beenauthorized by the FDA under an Emergency Use Authorization(EUA) for use by authorized laboratories certified underCLIA that meet the requirements to perform moderate [...] (Bld) [#/Vol] 12.6 10 3/uL High 4.0-11.0 [facility] WBC corrected for nucl RBC Auto (Bld) [#/Vol] Leukocytes [#/volume] corrected for nucleated erythrocytes in Blood by Automated coun High 4.0-11.0 [facility] Lymphocytes Auto (Bld) [#/Vo l]on 01-19-2024 Lymphocytes (Bld) [#/Vol] 4.4 10 3/uL High 1.2-3.8 [facility] Lymphocytes (Bld) [#/Vol] Lymphocytes [#/volume] in Blood by Automated count High 1.2-3.8 [facility] Lymphocytes/100 WBC Auto (Bl d)on 01-19-2024 Lymphocytes/100 WBC (Bld) 35.0 % 20.5-60.0 [facility] Lymphocytes/100 WBC (Bld) Lymphocytes/100 leukocytes in Blood by Automated count 20.5-60.0 [facility] MCH Auto (RBC) [Entitic mass ]on 01-19-2024 MCH (RBC) [Entitic mass] 29.4 pg 26.7-34.0 [facility] MCH (RBC) [Entitic mass] MCH [Entitic mass] by Automated count 26.7-34.0 [facility] MCHC Auto (RBC) [Mass/Vol]on 01-19-2024 MCHC (RBC) [Mass/Vol] 32.4 g/dL 29.9-35.2 [facility] MCHC (RBC) [Mass/Vol] MCHC [Mass/volume] by Automated count 29.9-35.2 [facility] MCV Auto (RBC) [Entitic vol] on 01-19-2024 MCV (RBC) [Entitic vol] 90.6 fL 81.0-99.0 [facility] MCV (RBC) [Entitic vol] MCV [Entitic volume] by Automated count 81.0-99.0 [facility] Monocytes Auto (Bld) [#/Vol] on 01-19-2024 Monocytes (Bld) [#/Vol] 1.2 10 3/uL High 0.3-0.8 [facility] Monocytes (Bld) [#/Vol] Automated blood monocyte count High 0.3-0.8 [facility] Monocytes/100 WBC Auto (Bld) on 01-19-2024 Monocytes/100 WBC (Bld) 9.5 % 1.7-12.0 [facility] Monocytes/100 WBC (Bld) Automated monocyte % 1.7-12.0 [facility] Neutrophils Auto (Bld) [#/Vo l]on 01-19-2024 Neutrophils (Bld) [#/Vol] 6.4 10 3/uL 1.4-6.5 [facility] Neutrophils (Bld) [#/Vol] Neutrophils [#/volume] in Blood by Automated count 1.4-6.5 [facility] Neutrophils/100 WBC Auto (Bl d)on 01-19-2024 Neutrophils/100 WBC (Bld) 50.7 % 43.0-75.0 [facility] Neutrophils/100 WBC (Bld) Automated neutrophil % 43.0-75.0 [facility] No Panel Informationon 01-18 Bedside Influenza Type A Antigen Negative [facility] Comment on above: Negative for Flu A p rotein antigen. Infection due to Flu Acannot be ruled out. Flu A antigen in the sample may bebelow the detection limit of the test. Bedside Influenza Type B Antigen Negative [facility] Comment on above: Negative for Flu B p rotein antigen. Infection due to Flu Bcannot be ruled out. Flu B antigen in the sample may bebelow the detection limit of the test. Eosinophils # (Auto) 0.5 10 3/uL 0.0-0.7 [facility] Immature Granulocyte # (Auto) 0.04 10 3/uL High 0.00-0.03 [facility] Troponin I High Sensitivity 5.8 pg/mL 4.0-51.3 [facility] Comment on above: CUT-OFF POINTS HAVE [...] (Bld) [Entitic vol] 9.3 fL Low 9.5-13.5 [facility] Platelet mean volume (Bld) [Entitic vol] Platelet mean volume [Entitic volume] in Blood by Automated count Low 9.5-13.5 [facility] Platelets Auto (Bld) [#/Vol] on 01-19-2024 Platelets (Bld) [#/Vol] 304 10 3/uL 150-450 [facility] Platelets (Bld) [#/Vol] Platelets [#/volume] in Blood by Automated count 150-450 [facility] RBC Auto (Bld) [#/Vol]on RBC (Bld) [#/Vol] 4.36 10 6/uL 4.20-5.40 [facility] RBC (Bld) [#/Vol] Erythrocytes [#/volu me] in Blood by Automated count 4.20-5.40 [facility] Serum or plasma anion gap de terminationon 01-19-2024 Anion gap [Moles/Vol] 8.3 mmol/L [facility] Anion gap [Moles/Vol] Serum or plasma anion gap determination [facility] Borrelia burgdorferi IgG+IgM Ab [Presence] in Serum by Immunoassayon 10-13-2023 B. burgdorferi IgG+IgM IA Ql (S) Negative Negative [facility] Comment on above: Lyme antibodies not detected. Reflex testing is notindicated.No laboratory evidence of infection with B. burgdorferi(Lyme disease). Negative results may occur in patientsrecently infected (less than or equal to 14 days) with B.burgdorferi. If recent infection is suspected, repeattesting on a new sample collected in 7 to 14 days isrecommended.Performed at: [facility] [id number] [place], [place] [id number] Director: Jeovany Bazan PhD, Phone: [phone] General Surgery Office/Clini c Noteon 02-21-2022 General [...] neoplasm of lung: Father. Normal [facility] Comment on above: Result Comment: Elec [...] Very low density lipoprotinemia Normal [facility] Reminderson 02-01-2022 Reminders - From: Sushma Shell LPN To: GSN - Clinical; Sent: 02/01/2022 16:18:52 EDT Show up: 04/12/2022 07:00:00 EST Subject: EGD recall Due Date/Time: 05/04/2022 07:00:00 EST Reminder/Recall Patient is due to repeat EGD 05/04/2022 due to gastric ulcer. Normal [facility] Outside Colonoscopyon 2021 Outside Colonoscopy [id number]:127 Normal [facility] Pathology Noteon 01-14-2022 Pathology Note [id number]#1.00CD:127 Normal [facility] Reminderson 01-14-2022 Reminders - From: Sushma Shell LPN To: GSN - Clinical; Sent: 01/14/2022 08:07:35 EDT Show up: 12/14/2031 07:00:00 EDT Subject: colonoscopy recall Due Date/Time: 01/13/2032 07:00:00 EDT Reminder/Recall Patient is due for screening colonoscopy 01/13/2032. Normal [facility] Pre-Certification Formon Pre-Certification Form [id number]:127 Normal [facility] Lab Reportson 01-11-2022 Lab Reports [id number]#1.00CD:127 Normal [facility]on SARS-CoV-2 (COVID-19) RNA JOSELUIS+probe Ql (Unsp spec) Not detected Normal NOT DETECTED [facility] Comment on above: Result Comment: This test is not yet approved or cleared by the [place] FDA. When there are no FDA-approved or cleared tests available, and other criteria are met, FDA can make tests available under an emergency access mechanism called an Emergency Use Authorization (EUA). The EUA for this test is supported by the [employer] Boards of Health and Human Service's (HHS's) declaration [...] consistent with SARS-CoV-2. Performed By: #### C VDTB #### [facility] [address] [place] [address] Dr. Pablo Sheth Physician Orderon 12-23-2021 Physician Order [id number]:127 Normal [facility] Ambulatory Visit Summaryon 0 12-22-2021 Ambulatory [...] Very low density lipoprotinemia Normal [facility] CBC AUTO DIFFon 12-17-2021 BASO # 0.1 103/ul Normal 0.0-0.1 [facility] Comment on above: Performed By: #### D ATCBC #### [facility] [address] [address] [address] Pablo Sheth Basophils/100 WBC (Bld) 0.4 % Normal 0.2-2.0 [facility] Comment on above: Performed By: #### D ATCBC #### [facility] [address] [address] [address] Pablo Sheth EO # 0.3 103/ul Normal 0.0-0.7 [facility] Comment on above: Performed By: #### D ATCBC #### [facility] [address] [address] [address] Pablo Sheth Eosinophils/100 WBC (Bld) 2.4 % Normal 0.9-7.0 [facility] Comment on above: Performed By: #### D ATCBC #### [facility] [address] [address] [address] Pablo Sheth Erythrocyte distribution width (RBC) [Ratio] 13.2 % Normal 11.0-15.0 [facility] Comment on above: Performed By: #### D ATCBC #### [facility] [address] [address] [address] Pablo Sheth Hematocrit (Bld) [Volume fraction] 42.6 % Normal 36.0-48.0 [facility] Comment on above: Performed By: #### D ATCBC #### [facility] [address] [place] [address] Dr. Pablo Sheth Hemoglobin (Bld) [Mass/Vol] 13.7 g/dL Normal 12.0-16.0 [facility] Comment on above: Performed By: #### D ATCBC #### [facility] [address] [address] [address] Pablo Sheth IG # 0.05 10e3/ul Critically high 0.00-0.03 [facility] Comment on above: Performed By: #### D ATCBC #### [facility] [address] [address] [address] Pablo Sheth IG % 0.4 % Normal 0.0-0.5 [facility] Comment on above: Performed By: #### D ATCBC #### [facility] [address] [address] [address] Pablo Sheth LYMPH # 2.8 103/ul Normal 1.2-3.8 [facility] Comment on above: Performed By: #### D ATCBC #### [facility] [address] [place] [address] Dr. Pablo Sheth Lymphocytes/100 WBC (Bld) 20.9 % Normal 20.5-60.0 [facility] Comment on above: Performed By: #### D ATCBC #### [facility] [address] [address] [address] Pablo Sheth MCH (RBC) [Entitic mass] 29.2 pg Normal 26.7-34.0 [facility] Comment on above: Performed By: #### D ATCBC #### [facility] [address] [address] [address] Pablo Sheth MCHC (RBC) [Mass/Vol] 32.2 g/dL Normal 29.9-35.2 [facility] Comment on above: Performed By: #### D ATCBC #### [facility] [address] [address] [address] Pablo Sheth MCV (RBC) [Entitic vol] 90.8 fL Normal 81.0-99.0 [facility] Comment on above: Performed By: #### D ATCBC #### [facility] [address] [address] [address] Pablo Sheth MONO # 1.0 103/ul Critically high 0.3-0.8 [facility] Comment on above: Performed By: #### D ATCBC #### [facility] [address] [address] [address] Pablo Sheth Monocytes/100 WBC (Bld) 7.5 % Normal 1.7-12.0 [facility] Comment on above: Performed By: #### D ATCBC #### [facility] [address] [address] [address] Pablo Sheth NEUT # 9.2 103/ul Critically high 1.4-6.5 [facility] Comment on above: Performed By: #### D ATCBC #### [facility] [address] [address] [address] Pablo Sheth Neutrophils/100 WBC (Bld) 68.4 % Normal 43.0-75.0 [facility] Comment on above: Performed By: #### D ATCBC #### [facility] [address] [address] [address] Pablo Sheth Platelet mean volume (Bld) [Entitic vol] 9.3 fL Critically low 9.5-13.5 [facility] Comment on above: Performed By: #### D ATCBC #### [facility] [address] [place] [address] Dr. Pablo Sheth PLT 313 103/ul Normal 150-450 [facility] Comment on above: Performed By: #### D ATCBC #### [facility] [address] [address] [address] Pablo Sheth RBC 4.69 106/ul Normal 4.20-5.40 [facility] Comment on above: Performed By: #### D ATCBC #### [facility] [address] [address] [address] Pablo Sheth WBC 13.4 103/ul Critically high 4.0-11.0 [facility] Comment on above: Performed By: #### D ATCBC #### [facility] [address] [place] [address] Dr. Pablo Sheth BERKLEY - TSHon 12-17-2021 TSH 1.241 uIU/mL Normal 0.358-3.740 [facility] Comment on above: Performed By: #### D ATTSH, DATBMP #### [facility] [address] [place] [address] Dr. Pablo Sheth TSH RANGE SEE BELOW Normal [facility] Comment on above: Result Comment: <0.3 4 UIU/ml HYPERTHYROID 0.34-5.60 UIU/ml EUTHYROID >5.60 UIU/ml HYPOTHYROID Performed By: #### D ATTSH, DATBMP #### [facility] [address] [place] [address] Dr. Pablo Sheth BERKLEY- BMP WITH LIPIDon 2021 Anion gap [Moles/Vol] 11.9 mmol/L Normal [facility] Comment on above: Performed By: #### D ATTSH, DATBMP #### [facility] [address] [place] [address] Dr. Pablo Sheth Calcium [Mass/Vol] 9.1 mg/dL Normal 8.5-10.1 [facility] Comment on above: Performed By: #### D ATTSH, DATBMP #### [facility] [address] [place] [address] Dr. Pablo Sheth Chloride [Moles/Vol] 104 mmol/L Normal 98-107 [facility] Comment on above: Performed By: #### D ATTSH, DATBMP #### [facility] [address] [place] [address] Dr. Pablo Sheth Cholesterol [Mass/Vol] 207 mg/dL Critically high <=200 [facility] Comment on above: Performed By: #### D ATTSH, DATBMP #### [facility] [address] [place] [address] Dr. Pablo Sheth Cholesterol in HDL [Mass/Vol] 52 mg/dL Normal 40-60 [facility] Comment on above: Performed By: #### D ATTSH, DATBMP #### [facility] [address] [place] [address] Dr. Pablo Sheth Cholesterol in LDL [Mass/Vol] 141.4 mg/dL Normal [facility] Comment on above: Performed By: #### D ATTSH, DATBMP #### [facility] [address] [address] [address] Pablo Sheth CO2 [Moles/Vol] 29.3 mmol/L Normal 21.0-32.0 [facility] Comment on above: Performed By: #### D ATTSH, DATBMP #### [facility] [address] [address] [address] Pablo Sheth Creatinine [Mass/Vol] 0.77 mg/dL Normal 0.55-1.02 [facility] Comment on above: Performed By: #### D ATTSH, DATBMP #### [facility] [address] [address] [address] Pablo Sheth EGFR-AF BRAZILIAN >60 Normal >=60 [facility] Comment on above: Performed By: #### D ATTSH, DATBMP #### [facility] [address] [address] [address] Pablo Sheth EGFR-NON AF BRAZILIAN >60 Normal >=60 [facility] Comment on above: Performed By: #### D ATTSH, DATBMP #### [facility] [address] [address] [address] Pablo Sheth Glucose [Mass/Vol] 109 mg/dL Critically high 74-106 [facility] Comment on above: Performed By: #### D ATTSH, DATBMP #### [facility] [address] [address] [address] Pablo Sheth HDL NORMAL > or = 60 mg/dl - LO W CARDIOVASCULAR RISK <40 mg/dl - HIGH CARDIOVASCULAR RISK Normal [facility] Comment on above: Performed By: #### D ATTSH, DATBMP #### [facility] [address] [address] [address] Pablo Sheth LDL CALC NORMAL SEE BELOW Normal [facility] Comment on above: Result Comment: <100 mg/dl OPTIMAL 100 - 129 mg/dl NEAR OR ABOVE OPTIMAL 130 - 159 mg/dl BORDERLINE HIGH 160 - 189 mg/dl HIGH >190 mg/dl VERY HIGH Performed By: #### D ATTSH, DATBMP #### [facility] [address] [address] [address] Pablo Sheth Potassium [Moles/Vol] 4.2 mmol/L Normal 3.5-5.1 [facility] Comment on above: Performed By: #### D ATTSH, DATBMP #### [facility] [address] [address] [address] Pablo Sheth Sodium [Moles/Vol] 141 mmol/L Normal 136-145 [facility] Comment on above: Performed By: #### D ATTSH, DATBMP #### [facility] [address] [address] [address] Pablo Sheth Triglyceride [Mass/Vol] 68 mg/dL Normal <=150 [facility] Comment on above: Performed By: #### D ATTSH, DATBMP #### [facility] [address] [place] [address] Dr. Pablo Sheth Urea nitrogen [Mass/Vol] 26.0 mg/dL Critically high 7.0-18.0 [facility] Comment on above: Performed By: #### D ATTSH, DATBMP #### [facility] [address] [place] [address] Dr. Pablo Sheth Urea nitrogen/Creatinin e [Mass ratio] 33.8 mg/mg Normal [facility] Comment on above: Performed By: #### D ATTSH, DATBMP #### [facility] [address] [place] [address] Dr. Pablo Sheth VLDL CALC 13.6 mg/dL Normal [facility] Comment on above: Performed By: #### D ATTSH, DATBMP #### [facility] [address] [address] [address] Pablo Sheth Physician Referralon 022 Physician Referral [id number]:127 Normal [facility] Vital Signs Date Time Vital Sign Value Performing Clinician Bea monk 04-15-2024 15:14-0500 Body height 170.18 cm Celia Garrison MD Work Phone: [facility] 04-15-2024 15:14-0500 Body mass index (BMI) [Ratio] 27.7 kg/m2 Celia Garrison MD Work Phone: [facility] 04-15-2024 15:14-0500 Body temperature 98.4 [degF] Celia Garrison MD Work Phone: [facility] 04-15-2024 15:14-0500 Body weight 80.28 kg Celia Garrison MD Work Phone: [facility] 04-15-2024 15:14-0500 Diastolic blood pressure 82 mm[Hg] Celia Garrison MD Work Phone: [phone] [place] [address] 04-15-2024 15:14-0500 Heart rate 83 /min Celia Garrison MD Work Phone: [facility] 04-15-2024 15:14-0500 Respiratory rate 20 /min Celia Garrison MD Work Phone: [facility] 04-15-2024 15:14-0500 SaO2% (BldA) [Mass fraction] 96 % Celia Garrison MD Work Phone: [facility] 04-15-2024 15:14-0500 Systolic blood pressure 128 mm[Hg] Celia Garrison MD Work Phone: [facility] 03-29-2024 08:56-0500 Body height 170.18 cm Celia Garrison MD Work Phone: [facility] 03-29-2024 08:56-0500 Body mass index (BMI) [Ratio] 27.2 kg/m2 Celia Garrison MD Work Phone: [facility] 03-29-2024 08:56-0500 Body weight 78.92 kg Celia Garrison MD Work Phone: [facility] 03-29-2024 08:56-0500 Diastolic blood pressure 86 mm[Hg] Celia Garrison MD Work Phone: [facility] 03-29-2024 08:56-0500 Heart rate 91 /min Celia Garrison MD Work Phone: [facility] 03-29-2024 08:56-0500 SaO2% (BldA) [Mass fraction] 95 % Celia Garrison MD Work Phone: [facility] 03-29-2024 08:56-0500 Systolic blood pressure 124 mm[Hg] Celia Garrison MD Work Phone: [facility] 03-11-2024 15:29-0500 Body height 170.18 cm Celia Garrison MD Work Phone: [facility] 03-11-2024 15:29-0500 Body mass index (BMI) [Ratio] 27.8 kg/m2 Celia Garrison MD Work Phone: [facility] 03-11-2024 15:29-0500 Body temperature 97.6 [degF] Celia Garrison MD Work Phone: [facility] 03-11-2024 15:29-0500 Body weight 80.73 kg Celia Garrison MD Work Phone: [facility] 03-11-2024 15:29-0500 Diastolic blood pressure 80 mm[Hg] Celia Garrison MD Work Phone: [facility] 03-11-2024 15:29-0500 Heart rate 82 /min Celia Garrison MD Work Phone: [facility] 03-11-2024 15:29-0500 Respiratory rate 20 /min Celia Garrison MD Work Phone: [facility] 03-11-2024 15:29-0500 SaO2% (BldA) [Mass fraction] 98 % Celia Garrison MD Work Phone: [facility] 03-11-2024 15:29-0500 Systolic blood pressure 134 mm[Hg] Celia Garrison MD Work Phone: [facility] 02-08-2024 13:55-0400 Body height 170.18 cm MD Celia Garrison Work Phone: [facility] 02-08-2024 13:55-0400 Body mass index (BMI) [Ratio] 27.9 kg/m2 MD Celia Garrison Work Phone: [facility] 02-08-2024 13:55-0400 Body weight 80.9 kg MD Celia Garrison Work Phone: [facility] 02-08-2024 13:55-0400 Diastolic blood pressure 78 mm[Hg] MD Celia Garrison Work Phone: [facility] 02-08-2024 13:55-0400 Heart rate 74 /min MD Celia Garrison Work Phone: [facility] 02-08-2024 13:55-0400 SaO2% (BldA) [Mass fraction] 96 % MD Celia Garrison Work Phone: [facility] 02-08-2024 13:55-0400 Systolic blood pressure 110 mm[Hg] MD Celia Garrison Work Phone: [facility] 01-24-2024 14:35-0400 Body height 170.18 cm MD Celia Garrison Work Phone: [facility] 01-24-2024 14:35-0400 Body mass index (BMI) [Ratio] 28.3 kg/m2 MD Celia Garrison Work Phone: [facility] 01-24-2024 14:35-0400 Body weight 82.21 kg MD Celia Garrison Work Phone: [facility] 01-09-2024 15:17-0400 Body height 167.64 cm [facility] 01-09-2024 15:17-0400 Body mass index (BMI) [Ratio] 28.2 kg/m2 [facility] 01-09-2024 15:17-0400 Body weight 79.37 kg [facility] 01-09-2024 15:17-0400 Diastolic blood pressure 91 mm[Hg] [facility] 01-09-2024 15:17-0400 Heart rate 76 /min [facility] 01-09-2024 15:17-0400 SaO2% (BldA) [Mass fraction] 97 % [facility] 01-09-2024 15:17-0400 Systolic blood pressure 135 mm[Hg] [facility] 11-01-2023 08:57-0400 Body height 167.64 cm [facility] 11-01-2023 08:57-0400 Body mass index (BMI) [Ratio] 28.2 kg/m2 [facility] 11-01-2023 08:57-0400 Body weight 79.37 kg [facility] 11-01-2023 08:57-0400 Diastolic blood pressure 90 mm[Hg] [facility] 11-01-2023 08:57-0400 Heart rate 63 /min [facility] 11-01-2023 08:57-0400 Systolic blood pressure 136 mm[Hg] [facility] 10-13-2023 09:19-0400 Body height 167.64 cm [facility] 10-13-2023 09:19-0400 Body mass index (BMI) [Ratio] 28 kg/m2 [facility] 10-13-2023 09:19-0400 Body weight 78.92 kg [facility] 10-13-2023 09:19-0400 Diastolic blood pressure 76 mm[Hg] [facility] 10-13-2023 09:19-0400 Heart rate 78 /min [facility] 10-13-2023 09:19-0400 SaO2% (BldA) [Mass fraction] 98 % [facility] 10-13-2023 09:19-0400 Systolic blood pressure 118 mm[Hg] [facility] 07-31-2023 10:09-0400 Body height 167.64 cm [facility] 07-31-2023 10:09-0400 Body mass index (BMI) [Ratio] 28.8 kg/m2 [facility] 07-31-2023 10:09-0400 Body weight 80.9 kg [facility] 07-31-2023 10:09-0400 Diastolic blood pressure 89 mm[Hg] [facility] 07-31-2023 10:09-0400 Heart rate 74 /min [facility] 07-31-2023 10:09-0400 Systolic blood pressure 138 mm[Hg] [facility] 12-22-2021 14:20-0400 Blood Pressure Location Mihaela CASAS [facility] 12-22-2021 14:20-0400 Diastolic blood pressure 80 mm[Hg] Mihaela KERNL [facility] [place] 12-22-2021 14:20-0400 Heart rate 72 /min Mihaela KERNL [facility] [place] 12-22-2021 14:20-0400 Respiratory rate 16 /min Mihaela KERNShahriar [facility] [place] 12-22-2021 14:20-0400 Systolic blood pressure 116 mm[Hg] Mihaela KERNL [facility] [place] Encounters Encounter Date Encounter Type Care Provider Facility Start: 04-29-2024 End: 04-29-2024 ambulatory Duong Oreilly MD Facility:[facility] Start: 04-22-2024 End: 04-22-2024 ambulatory Celia Garrison MD Work Phone: [facility] Work Phone: Start: 04-22-2024 End: 04-22-2024 Departed Referred Celia Garrison MD Work Phone: [facility] Start: 04-22-2024 End: 04-22-2024 ambulatory Celia Garrison MD Facility:[facility] Start: 04-15-2024 End: 04-15-2024 ambulatory Celia Garrison MD Work Phone: [facility] Work Phone: Start: 04-15-2024 End: 04-15-2024 Patient encounter procedure Celia Garrison MD [facility] Phone[facility]: Start: 04-01-2024 End: [...] encounter procedure Celia Garrison MD Work Phone: [facility] Work Phone: Start: 03-25-2024 End: 03-25-2024 ambulatory Celia Garrison MD Facility:[facility] Start: 03-21-2024 Non-patient / Non-visit Celia Garrison MD Work Phone: [facility] Work Phone: Start: 03-11-2024 End: 03-11-2024 Patient encounter procedure Celia Garrison MD Work Phone: [facility] Work Phone: Start: 03-04-2024 Non-patient / Non-visit Celia Garrison MD Work Phone: [facility] Work Phone: Start: 03-04-2024 End: 03-04-2024 Patient encounter procedure Celia Garrison MD Work Phone: [facility] Work Phone: Start: 03-04-2024 End: 03-04-2024 ambulatory Celia Garrison Facility:[facility] Start: 02-23-2024 End: 02-23-2024 ambulatory Celia Garrison MD Facility:[facility] Start: 02-19-2024 End: 02-19-2024 ambulatory Celia Garrison MD Facility:[facility] Start: 02-13-2024 End: 02-13-2024 ambulatory fOelia Arceo PA-C Facility:[facility] Start: 02-08-2024 End: 02-08-2024 ambulatory MD Celia Garrison Work Phone: [facility] Work Phone: Start: 02-08-2024 End: 02-08-2024 Patient encounter procedure MD Celia Garrison Work Phone: [facility] Work Phone: Start: 02-07-2024 Non-patient / Non-visit MD Mala Garrison Work Phone: [facility] Work Phone: Start: 02-01-2024 Non-patient / Non-visit Celia Garrison MD Work Phone: [facility] Work Phone: Start: 01-24-2024 End: 01-24-2024 ambulatory MD Celia Garrison Work Phone: [facility] Work Phone: Start: 01-24-2024 End: 01-24-2024 Patient encounter procedure MD Celia Garrison Work Phone: [facility] Phys[facility] Work Phone: Start: 01-24-2024 End: 01-24-2024 Patient encounter procedure MD Celia Garrison Work Phone: [facility] Start: 01-24-2024 End: 01-24-2024 ambulatory MD Celia Garrison Work Phone: [facility] Work Phone: Start: 01-19-2024 Non-patient / Non-visit MD Mala Garrison Work Phone: [facility] Work Phone: Start: 01-19-2024 Non-patient / Non-visit MD Mala Garrison Work Phone: [facility] Physician [facility] Work Phone: Start: 01-09-2024 End: 01-09-2024 ambulatory [facility] Work Phone: Start: 01-09-2024 End: 01-09-2024 Patient encounter procedure [facility] Physician [facility] Work Phone: Start: 11-01-2023 End: 11-01-2023 ambulatory [facility] Work Phone: Start: 11-01-2023 End: 11-01-2023 Patient encounter procedure [facility] Work Phone: Start: 10-13-2023 End: 10-13-2023 ambulatory [facility] [facility] Work Phone: Start: 10-13-2023 End: 10-13-2023 Patient encounter procedure [facility] Physician [facility] Work Phone: Start: 07-31-2023 End: 07-31-2023 ambulatory [facility] Work Phone: Start: 07-31-2023 End: 07-31-2023 Patient encounter procedure [facility] Physician [facility] Work Phone: Start: 05-26-2023 Non-patient / Non-visit [facility] Physician [facility] Work Phone: Start: 02-01-2022 End: 02-02-2022 ambulatory Mihaela CASAS Facility:[facility] Start: 02-01-2022 End: 02-01-2022 Patient encounter procedure Mihaela CASAS General Surgery [facility] [place] Start: 01-13-2022 Encounter for preprocedural laboratory examination DR MIHAELA CASAS [facility] Start: 01-12-2022 End: 01-13-2022 ambulatory Mihaela CASAS Facility:CD:[id number] Start: 01-10-2022 End: 01-11-[address] MIHAELA CASAS Facility:[facility] Start: 01-10-2022 End: 01-11-2022 Encounter for preprocedural laboratory examination DR MIHAELA CASAS Facility:[facility] Start: 12-22-2021 End: 12-23-2021 [facility] Start: 12-22-2021 End: 12-22-2021 Patient encounter procedure Mihaela CASAS General Surgery [facility] Start: 12-17-2021 End: 12-18-2021 ambulatory CELIA GARRISON PROVIDER Facility:[facility] Procedures Date Procedure Procedure Detail Performing Clinician [...] of vaginal tear Ebenezer CASAS Tonsillectomy Mihaela KERNShahriar Plan of Treatment Date Care Activity Detail Author Start: 04-05-2024 Patient referral [facility] Work Phone: Start: 04-01-2024 End: 04-01-2024 Patient encounter procedure 04/01/2024 3:00 PM EST Procedure Visit [facility] [address] [place] [address] Kane Perez, [address] [place] [address] Arrived ZAINAB REDDY NEURO Comment on above: Arrived Start: 01-24-2024 X-ray of both knees, three views XR knee BI 3V - NOT FOR ER USE [facility] Start: 01-24-2024 XR Knee - bilateral 3 Views [facility] Start: 01-10-2024 Patient referral [facility] Work Phone: CT Unspecified body region [facility] CT Unspecified body region [facility] DXA Skeletal system.axial Views for bone density [facility] Patient Education Low back pain in adults [facility] Work Phone: Patient referral [facility] Work Phone: US Lower extremity v ein - right [facility] US Thyroid gland [facility] Immunizations Immunization Date Immunization Notes Care Provider Fa cility 03-11-2024 diphtheria, tetanus toxoids and acellular pertussis vaccine, unspecified formulation Celia Garrison MD Work Phone: [facility] 03-29-2021 COVID-19 mRNA, Comirnaty (Pfizer) [facility] 08-11-2020 COVID-19 mRNA, Comirnaty (Pfizer) [facility] 07-21-2020 COVID-19 mRNA, Comirnaty (Pfizer) [facility] 10-07-2018 diphtheria, tetanus toxoids and acellular pertussis vaccine, unspecified formulation [facility] 02-05-2014 tetanus and diphther ia toxoids, adsorbed, preservative free, for adult use (5 Lf of tetanus toxoid and 2 Lf of diphtheria toxoid) [facility] Payers Date Payer Category Payer Medicare [id number] 2024 Medicare [id number] 2023 Unknown 2021 Unknown [id number] 1960 Self-pay [id number] 1960 Unknown [id number] [id number] 1959 Unknown [id number] 2.16.840.1.641404.3.579.2.727 1959 Unknown [id number] 2.16.840.1.036185.3.579.2.727 1959 Unknown [id number] 2.16.840.1.929828.3.579.2.727 1959 Unknown [id number] 2.16.840.1.020621.3.579.2.593 1959 Unknown [id number] 2.16.840.1.948730.3.579.2.593 1959 Unknown [id number] 2.16.840.1.195853.3.579.2.1259 1959 Unknown [id number] 2.16.840.1.240849.3.579.2.196 1959 Unknown [id number] 2.16.840.1.600411.3.579.2.196 1959 Unknown [id number] 2.16.840.1.046979.3.579.2.196 1959 Unknown [id number] 2.16.840.1.797703.3.579.2.196 1959 Unknown [id number] 2.16.840.1.409937.3.579.2.196 1959 Unknown [id number] 2.16.840.1.590653.3.579.2.196 1959 Unknown [id number] 2.16.840.1.479358.3.579.2.196 Private Health Insurance [employer] [facility] PFFS G [id number] Unknown [id number] Unknown [id number] 2.16.840.1.441039.3.579.2.593 Unknown MMO [employer] [id number] Unknown Regular Insurance [id number] Social History Date Type Detail Facility Start: 12-22-2021 Heavy tobacco smoker (finding) [facility] Female [facility] Start: 07-31-2023 End: 04-15-2024 Tobacco smoking status NHIS Smoker (finding) [facility] Start: 1960 Sex Assigned At Female F [facility] Tobacco smoking status NDIS Tobacco smoking consumption unknown [facility] Start: 1960 Sex assigned at Not on file [facility] Start: 04-15-2024 End: 04-24-2024 Sex Female (finding) [facility] Functional Status Date Assessment Result Facility 12-22-2021 N/A [facility] Clinical Notes 12-22-2021 to 04-01-2024 BRENDA Nuñez - 04/01/2024 3:00 PM EST Note Date & Type Note Facility 04-01-2024 History of Present illness Narrative Images from the original note were not included. Reason for Appointment: EMG Patient: Cristine Manley : 1960 EMG Computer: [employer] Referring Physician: Ofelia Arceo PA-C EMG: BLE credit verifier: Daniel Dougherty RT(R) Office Location: [place] Reason for EMG: c/o numbness/tingling in bilateral [...] of the test. documented in this encounter [facility] 02-23-2024 Note Patient Education Ma terials Name: Cristine Manley Current Date: 02/23/2024 07:10:10 [facility] : 1960 The following sheet(s) are the [...] for continued care. Thank you for choosing [facility] for your care. 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 acute April 15, 2024 3:12pm Moderate persistent asthma, uncomplicated acute April 3:12pm [facility] Work Phone: 1(197) 302-803110-16-2024 Evaluation note* Diagnosis Onset Date Resolution Status Admit Date Bilateral knee pain acute Octob er 2023 2:05pm Primary osteoarthritis of rk [...] posterior right lowe r extremity acute March 29, 2 024 8:45am Right thyroid nodule acute Dece mb2023 8:45am Cigarette nicotine dependenc e with nicotine-induced disorder acute J anuary 2024 3:12pm Encounter for screening for lung cancer acute April 15 3:12pm Moderate persistent asthma, uncomplicated acute April 15 3:12pm [facility] Work Phone: 1(418) 888-714010-05-2022 NoteOPERATIVE NOTE OPERATION DATE: 01/12/2022 PREOPERATIVE DIAGNOSIS: [...] of the polyp. CC: Celia Garrison M.D.[facility] [id number] NoteChief Complaint consultation for epigastric pain HPI [...] pulmonary dise (more content not included)...[facility]:Result Comment: Electronically Signed By: RAJINDER TAVERAS, Mihaela Trujillo\Date and Time Signed: 12/22/21 17:34 EDTEvaluation + Plan note No data available for this section General Surgery [employer] Evaluation note* Diagnosis Onset Date Resolution Status Lumbar radiculopathy, chronic acute [facility] Work Phone: Evaluation note* Diagnosis Onset Date Resolution Status Lumbar radiculopathy, chronic acute Headache acute Joint pain acute Tick bite acute [facility] Work Phone: evaluation note* Diagnosis Onset Date Resolution Status Headache acute Joint pain acute Tick bite acute Chronic obstructive pulmonary disease, unspecified acute Lumbar radiculopathy, chronic acute [facility] Work Phone: evaluation note* Diagnosis Onset Date Resolution Status Chronic obstructive pulmonary disease, unspecified acute Lumbar radiculopathy, chronic acute Bilateral knee pain acute COPD exacerbation acute Lumbar pain acute Lumbar radiculopathy, chronic acute Bilateral knee pain acute Primary osteoarthritis of both knees acute [facility] Work Phone: evaluation note* Diagnosis Onset Date Resolution Status Bilateral knee pain acute COPD exacerbation acute Lumbar pain acute Lumbar radiculopathy, chronic acute Bilateral knee pain acute Primary osteoarthritis of both knees acute Menopause acute [facility] Work Phone: Evaluation note* Diagnosis Lumbosacral radiculopathy- Primary Thoracic or lumbosacral neuritis or radiculitis, unspecified Numbness and tingling Disturbance of skin sensation [facility] No data available for this section [facility] [place] Progress note No data available for this section [facility] [place] Reason for visit Narrative* Other Medical (Routine) - Closed Specialty Diagnoses / Procedures Referred By Conteddie t Referred To Contact Neurology Diagnoses Neuralgia and neuritis, unspecified Procedures VT NEEDLE EMG EA EXTREMTY W/PARASPINL AREA COMPLETE VT NERVE CONDUCTION STUDIES 9-10 STUDIES Ofelia Arceo PA-C [address] [place] [address] Phone: tel: fax: Cecil Fields MD [address] [place] [address] Phone: tel: fax: Referral ID Status Reason Start Date Expiration Date V isits Requested Visits Authorized [id number] Closed Perform Procedure 03/27/2024 09/23/2024 1 1 [facility] Summary Purpose Family History No Family [...] Date/ Time Advance Directives No July 30, 9:55am Advance Directive Response Recorded Date/ Time [...] Back & Knee Pain-HIGH RISK March 8:45am 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 f/u Asthma COPD April 15, 2 025 3:12pm Reason for Visit Admit Date [...] Back & Knee Pain-HIGH RISK March 8:45am 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 f/u Asthma COPD April 15, 2 025 3:12pm Unknown April 22, 2024 1 2:14pm [...] for lung cancer April 15, 2024 3:12pm 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 April 15, 2024 3:12pm Moderate persistent asthma, uncomplicate d April 15, 2024 3:12pm Additional Source Comments Care Team (unrecognized sect ion and content) Team Status: Active Member Role Status Dominick Garrison MD Primary Care Provider Active Team Status: Active Member Role Status Dominick [...] 2024 End: March 11, 2024 Scott Dennis , DO Attending Provider Active St art: March 11, 2024 End: March 11, 2024 Team Status: Active Member Role Status Dates Celia Garrison MD Primary Care Provider Active Start: March 21, 2024 Scott P Sonny , DO Attending Provider Active St art: March 21, 2024 Team Status: Inactive Member Role Status Dates Celia Garrison MD Primary Care Provide r, Attending Provider Active Start: March 29, 2024 End: March 29, 2024 Team Status: Inactive Member Role Status Dates Celia Garrison MD Primary Care Provider Active Start: April 15, 2024 End: April 15, 2024 Scott Dennis , DO Attending Provider Active St art: April 15, 2024 End: April 15, 2024 Team Status: Inactive Member Role Status Dates Celia Garrison MD Primary Care Provide r, Attending Provider Active Start: July 31, 2023 End: July 31, 2023 Team Status: Inactive Member Role Status Dates Celia Garrison MD Primary Care Provider Active Start: October 13, 2023 End: October 13, 2023 Brittanie Siu APRN KEYBOARDING TEACHER-C Attending Provider Act onesimo Start: October 13, [...] Provider Active S tart: January 24, 2024 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 Specialty Start Date End Date Celia Garrison MD [address] [place] [address] PCP - General Family Medicine 03/27/24 Ofelia Arceo MD [address] [facility] [address] [place] [address] Referring Physician Internal Medicine 03/27/24 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 Specialty Start Date End Date Celia Garrison MD [address] [place] [address] PCP - General Family Medicine 03/27/24 Ofelia Arceo MD [address] [place] [address] Referring Physician Internal Medicine 03/27/24 Team Status: Inactive Member Role Status Dates Celia Garrison MD Attending Provider Active St art: April 22, 2024 End: April 22, 2024 INFORMATION SOURCE (unrecogn ized section and content) DATE CREATED AUTHOR 02/21/2022 [facility] DATE CREATED AUTHOR AUTHOR'S ORGANIZ ATION 04/01/2022 [facility] DATE CREATED AUTHOR AUTHOR'S ORGANIZ ATION 04/03/2024 [facility] EPIC DATE CREATED AUTHOR AUTHOR'S ORGANIZ ATION 04/27/2024 [facility] DATE CREATED AUTHOR AUTHOR'S ORGANIZ ATION 05/07/2024 [facility] Goals (unrecognized section and content) Goals [...] BE BASED ON THE PRIMARY CLINICAL RECORDS. [facility] provides no warranty or guarantee of the accuracy or completeness of information in this document.
--- NOTE | 2024-05-08 08:01 | PM.CN ---
Consult Note: HPI Data of Consult Patient: known to practice within the last 3 years Requesting Physician: Julee Reynoso NP Primary Care Provider: Celia Blank MD Consult Narrative Reason for consult: f/u Narrative: Cristine Manley a pleasant 64 year old female has failed PT greater than 6 weeks, heat/ice, tylenol, ibuprofen. currently utilizing tizanidine, ibuprofen, hydrocodone through PCP. hx of lumbar surgery, recently evaluated by NS who did not recommend further intervention. pt recently underwent left L4/5 L5/S1 TFESI with mild relief. Pain today 5/10 increasing to 8/10 burning. 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 (ICD-10) Asthma ?J45.909 - Unspecified asthma, uncomplicated (ICD-10) Surgical History H/O fine needle aspiration with imaging guidance ?Z98.890 - Other specified postprocedural states (ICD-10) Status post discectomy ?Z98.890 - Other specified postprocedural states (ICD-10) History of bunionectomy ?Z98.890 - Other specified postprocedural states (ICD-10) H/O bilateral oophorectomy ?Z90.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, bilateral (ICD-10) History of tonsillectomy ?Z90.89 - Acquired absence of other organs (ICD-10) Social History Little interest or pleasure in doing things: not at all Feeling down, depressed, or hopeless: not at all Meds Home Medications and Allergies Home Medications ?Medication ?Instructions ?Recorded ?Confirmed ?Type albuterol sulfate 2.5 mg/3 mL 2.5 mg inhalation Q4H PRN 01/19/24 04/29/24 History (0.083 %) solution for nebulization shortness of breath or wheezing albuterol sulfate 90 mcg/actuation 2 puff inhalation Q4H 01/19/24 04/29/24 History aerosol inhaler fluticasone 250 mcg-salmeterol 50 1 inh inhalation Q12H 01/19/24 04/29/24 History mcg/dose blistr powdr for inhalation hydrocodone 5 mg-acetaminophen 325 1 tab PO Q8H 01/19/24 04/29/24 History mg tablet tizanidine 4 mg tablet 4 mg PO Q8H 01/19/24 04/29/24 History omeprazole 20 mg capsule,delayed 20 mg PO DAILY 02/01/24 04/29/24 History release bupropion HCl 150 mg 24 hr tablet, 150 mg PO DAILY 04/22/24 04/29/24 History extended release fluticasone fur. 200 mcg-umeclid 1 inh inhalation DAILY 04/22/24 04/29/24 History 62.5 mcg-vilant 25 mcg inhalat.powder (Trelegy Ellipta) Allergies Allergy/AdvReac Type Severity Reaction Status Date / Time Sulfa (Sulfonamide Allergy Unknown Unknown Verified 04/29/24 07:05 Antibiotics) levofloxacin (From Levaquin) Allergy Rash Verified 04/29/24 07:05 acetaminophen (From Percocet) AdvReac Intermediate Vomiting Verified 04/29/24 07:05 oxycodone (From Percocet) AdvReac Intermediate Vomiting Verified 04/29/24 07:05 Exam Constitutional Documenting provider has reviewed patient's vital signs: yes Common normals: no apparent distress, oriented x3, healthy appearing, alert and well nourished General appearance: cooperative [facility] Common normals: normocephalic, hearing grossly normal bilaterally and moist oral mucous membranes Head and scalp: normocephalic Eye Common normals: PERRL Pupil: PERRL Neck & C-Spine Common normals: full ROM General: normal visual inspection Chest Common normals: inspection of chest normal Respiratory Common normals: normal respiratory effort, no retractions and no use of accessory muscles Back & Pelvis Lumbar spine/lower back: ROM limited, pain with ROM, lumbar spinal tenderness and straight leg raise negative bilaterally; no paraspinal muscle tenderness and no paraspinal muscle spasm Sacroiliac joints: SI joint(s) abnormal Other: left sij positive nicol(patricks), gaenslens, thigh thrust, compression test positive facet loading L2-S1 negative radiculopathy on exam, sensation intact BLE Neuro Common normals: oriented x3, CN's II-XII intact bilaterally, moves all extremities, no focal motor deficits, no sensory deficits noted and deep tendon reflexes 2+ bilaterally Sensorium/orientation: alert Motor exam: strength 5/5 throughout and no movement abnormalities noted Psych Common normals: mental status grossly normal, thought process normal, cooperative, affect normal, speech normal and activity/motor behavior normal Speech: normal speech Thought process: normal thought process Results Additional Findings Additional findings: If on a controlled substance or opioids, I have checked an [place]AR[place] report on this patient and there are no aberrancies noted in the prescribing history.??If on a controlled substance or opioid a drug screen was completed and reviewed within the last year, and if there has not been a drug screen completed we ordered one today to monitor higher risk, state monitored pain medication use. As part of providing excellent, safe, comprehensive care, the following was completed at our patient's visit: 1. A medication reconciliation and review to ensure accurate knowledge of current/active medications, including asking our patients to inform us about any [id number] medications or herbal remedies/nutritional supplements/alternative remedies. 2. A review to specifically ensure our patients have had annual screening for screening for depression, screening for tobacco use, and screening for unhealthy alcohol use. For concerning screenings had a discussion with the patient, provided patient education, and recommended follow-up with primary care provider when appropriate. If patient noted with a risk of falling, they received education on strength, gait, and balance training to prevent future risk of falling. Portions of this note may have been carried over from the previous visit and updated as appropriate. Please note this office utilizes paper charting in addition to the electronic medical record. A list of current medications, vitals, and PMH is available there as the clinical staff outside of myself do not have access to myaNUMBER charting during the clinic day operations. As part of providing quality comprehensive care the current medications, vitals, and PMH were reviewed in the paper chart. Assessment and Plan Assessment and Plan (1) Lumbar stenosis with neurogenic claudication: (2) Failed back syndrome: (3) Sacroiliitis: Plan left SIJ injection under fluoroscopy consider L4-S1 MBB x2 working towards RFA if axial low back pain persists emt intermediate consider spinal cord stim trial if fails above listed procedures continue HEP as tolerated f/u after injection
== END 2024-05-08 07:38 | disposition home or self-care (01) ==
LOC: PM 07:38
PROVIDERS: PCP Family Medicine; Visit Provider Nurse Practitioner
DX: M48.062 Spinal stenosis, lumbar region with neurogenic claudication (principal); M96.1 Postlaminectomy syndrome, not elsewhere classified; M46.1 Sacroiliitis, not elsewhere classified
CPT/HCPCS: G0463

== ENCOUNTER 2024-05-13 06:42 | Day surgery (SDC) | payer MEDICARE, OTHER, SELFPAY ==
--- OUTSIDE RECORDS SUMMARY | 2024-05-13 06:45 | XMS_ITS | CCD ---
Author Organization [facility] Care Team Providers Care Composition Molder Name Role Phone CORNELIUS GARRISON Primary Care Physician CORNELIUS AYOUB Referring Unavailab le NILL, Mihaela Michelle [...] Care Provider DO Alexandro Galvez Attending Provider [phone] Cornelius Garrison MD Primary Care Provider Ofelia Arceo MD Unavailable KANE PEREZ Attending Unavailable ADISOFELIA Referring Unavailable Cornelius Garrison MD Primary Care Provider [phone] Alexandro Galvez DO Attending Provider [phone] Cornelius Garrison MD Attending Provider Cornelius Garrison MD Primary Care Provider [phone] Cornelius Garrison MD Primary Care Unava ilable King DEMARCUS, Ofelia Grace Attending Unavailab le Adis DEMARCUS, Ofelia Grace Admitting Unavailab Cornelius Dickerson MD Primary Care Unava ilable King DEMARCUS, Ofelia Grace Attending Unavailab jass Oreilly MD, Duong Wagoner Attending Unavailable Bladimir TAVERAS, Cornelius Whyte Primary Care Unava stephany Garrison MD, Cornelius Whyte Primary Care Unava ilkrystal Oreilly MD, Duong Wagoner Attending Unavailable Bladimir TAVERAS, Cornelius Whyte Primary Care Unava ilable Adis PA-C, Ofelia Grace Attending Unavailab le Adis PAMeghanC, Ofelia Grace Attending Unavailab jass Garrison MD, Cornelius Whyte Referring Gelava stephany Garrison MD, Cornelius Whyte Primary Care Unava stephany Garrison MD, Cornelius Whyte Primary Care Unava ilable Adis PA-C, Ofelia Grace Attending Unavailab Cornelius Dickerson Admitting Unavailable Cornelius Garrison Attending Unavailable Cornelius Garrison Admitting Unavailable Cornelius Garrison Attending Unavailable Cornelius Garrison Primary Care Unavailable Alexandro Galvez Attending Unavailable Alexandro Galvez Admitting Unavailable Cornelius Garrison Primary Care Unavailable Allergies Allergy Classification Reported Allergen(s) Allergy Type Date of Onset Reaction(s) Facility (3 sources) Acetaminophen / oxyCODONE; Translations: [acetaminophen-oxy codone] Drug Allergy Nausea (finding) [facility] [place] (3 sources) Alendronate; Translations: [alendronate] Drug Allergy Muscle pain (finding) [facility] [place] (13 sources) Clarithromycin; Translations: [clarithromycin] Drug Allergy 07-31-19 Unknown (qualifier value) [facility] [place] (14 sources) levoFLOXacin; Translations: [levofloxacin] Drug Allergy 07-31-19 24 Eruption of skin (disorder) [facility] [place] (4 sources) Sulfonamides (Antibiotic); Translations: [sulfa drugs] Drug allergy Unknown (qualifier value) [facility] [place] (1 source) Acetaminophen / oxyCODONE Drug Allergy 03-25-20 16 [facility] Rep[facility] (1 source) Alendronate Drug Allergy 03-18-20 16 [facility] (1 source) Clarithromycin Drug Allergy 03-25-20 16 [facility] (1 source) levoFLOXacin Drug Allergy 03-25-20 16 [facility] (1 source) Quinolones (Antibiotic) Drug allergy (disorder) 03-25-20 16 [facility] (1 source) Sulfonamides (Antibiotic) Drug allergy (disorder) 05-01-19 14 [facility] (1 source) Acetaminophen Drug Allergy 07-31-19 24 [facility] (10 sources) Alendronate Drug Allergy 07-31-19 24 [facility] (10 sources) oxyCODONE Drug Allergy 07-31-19 24 [facility] (10 sources) Sulfonamides (Antibiotic) Allergy to substance 07-31-19 Comment:as a young child, pt. cannot recall reaction [facility] (10 sources) Biaxin XL *MACROLIDES* Allergy to substance 07-28-19 [facility] (1 source) Ciprofloxacin; Translations: [Cipro] Drug Allergy [facility] Repository (1 source) symbalta; Translations: [symbalta] Propensity to adverse reactions to drug (disorder) [facility] Repository Medications Current Medications Medication Drug [...] 20, 2024 April 19, 2024 2:01pm Start: 04-20-2024 End: 04-19-2024 take 1 tablet [...] Ordered amitriptyline hydrochloride 50 mg oral tablet (15 sources) Tricyclic Antidepressant Start: 03-29-2024 take 1 [...] hydrochloride 300 mg extended release oral tablet (6 sources) Aminoketone Start: 04-15-2024 take 1 tablet by mouth once daily Bupropion Hcl 300 mg tablet extended release 24 hr Active 300 MG PO Daily April 15, 2024 12:00am Start: 03-11-2024 End: 04-15-2024 take 1 tablet by mouth once daily Bupropion Hcl 150 mg tablet extended release 24 hr Discontinued 150 MG PO Daily 30 March 11, 2024 12:00am April 15, 2024 3:39pm diclofenac potassium 50 mg oral tablet (1 source) Nonsteroidal Anti-inflammatory Drug Start: 12-17-2021 take 1 tablet by mouth twice daily diclofenac potassium 50 mg oral tablet 50 mg = 1 tab(s), Oral, BID, Refills(s) 0 Start Date: 12/17/21 Status: Ordered Fluticasone-Umecl idin-Vilanter (9 sources) Start: 04-15-2024 Fluticasone-Umec lidin-Vilanter (Trelegy Ellipta) 200-62.5-25 mcg blister with device Active 1 INH INHALATION Daily 3 April 15, 2024 3:40pm Rinse after use Start: 03-29-2024 End: 04-15-2024 Qhoedxyzaix-Tmzcvgfzc-Oiwoyv er (Trelegy Ellipta) 200-62.5-25 mcg blister with device Discontinued 1 INH INHALATION Daily 60 March 29, 2024 9:38am April 15, 2024 3:41pm Rinse after use Start: 03-11-2024 End: 03-29-2024 Flpoqrpfvap-Hsvtvhdhj-Bkohal er (Trelegy Ellipta) 200-62.5-25 mcg blister with device Discontinued 1 INH INHALATION Daily 180 March 11, 2024 12:00am March 29, 2024 9:38am Rinse after use omeprazole 20 mg delayed release oral capsule (4 sources) Proton Pump Inhibitor Start: 03-11-2024 take [...] Sig (Original) cefdinir 300 mg oral capsule (7 sources) Cephalosporin Antibacterial Start: 01-09-2024 End: 02-08-2024 take 1 capsule by mouth twice daily Cefdinir 300 mg capsule Discontinued 300 MG PO Twice daily January 08, 2024 11:00pm February 08, 2024 12:53pm doxycycline hyclate 100 mg oral tablet (9 sources) Tetracycline-class Drug Start: 10-13-2023 End: 11-01-2023 [...] Twice daily 10.6 December 05, 2023 2:47pm January 24, 2024 8:18am [...] 2023 12:00am administer with spacer Fluticasone Propion-Salmeterol (12 sources) Corticosteroid, beta2-Adrenergic Agonist Start: 07-28-2023 End: [...] Fluticasone Propionate 44 mcg/actuation HFA aerosol inhaler (9 sources) Start: 01-24-2024 End: 02-08-2024 take 1 [...] with spacer methylPREDNISolone 4 mg oral tablet (8 sources) Corticosteroid Start: 11-01-2023 End: 12-05-2023 Methylprednisolone [...] for 6 days Pneumoc 20-Agnes Conj-Dip Cr(Pf) (3 sources) Start: 03-11-2024 End: 03-29-2024 inject 1 mL by intramuscular injection once Pneumoc 20-Agnes Conj-Dip Cr(Pf) (Prevnar 20 (Pf)) 0.5 mL syringe Discontinued 0.5 ML IM Once 0.5 March 11, 2024 12:00am March 29, 2024 8:52am predniSONE 20 mg oral tablet (7 sources) Start: 01-09-2024 End: 02-08-2024 take 1 tablet by mouth twice daily Prednisone 20 mg tablet Discontinued 20 MG PO Twice daily January 08, 2024 11:00pm February 08, 2024 12:53pm pregabalin 50 mg oral capsule (10 sources) Start: 07-31-2023 End: 07-31-2023 take 1 capsule by mouth twice daily Pregabalin (Lyrica) 50 mg capsule Discontinued 50 MG PO Twice daily July 30, 2023 11:00pm July 31, 2023 3:27pm Rsvpref3 Antigen-As01e (Pf) (Arexvy (Pf)) 120 mcg/0.5 mL suspension for reconstitution (3 sources) Start: 03-11-2024 End: 03-29-2024 inject 1 mL by intramuscular injection once Rsvpref3 Antigen-As01e (Pf) (Arexvy (Pf)) 120 mcg/0.5 mL suspension for reconstitution Discontinued 0.5 ML IM Once 1 March 11, 2024 12:00am March 29, 2024 9:04am 60 actuat tiotropium 0.15645 mg/actuat inhalation spray (9 sources) Anticholinergic Start: 02-08-2024 End: 03-11-2024 take 1 puff(s) by inhalation once daily in the morning Tiotropium Cataumet (Spiriva Respimat) 1.25 mcg/actuation mist Discontinued 2 [...] Translations: [RECTAL POLYP] Onset: 01-17-2022 Episodic Asthma (11 sources) Asthma; Translations: [Uncomplicated moderate persistent asthma] [...] BL] Onset: 01-17-2022 Chronic E Codes: Natural/environment (12 sources) Tick bite; Translations: [Bitten or stung by nonvenomous insect and other nonvenomous arthropods, initial encounter] 10-13-2023 Episodic Esophageal disorders (7 sources) Gastroesophageal reflux disease without esophagitis; Translations: [Gastro-esophageal reflux disease without esophagitis] Onset: 12-22-2021 Chronic Gastritis and duodenitis (1 source) Unspecified chronic gastritis without bleeding; Translations: [UNS CHRONIC GASTRITIS W/O BLEEDING] Onset: 01-17-2022 Chronic Headache; including migraine (12 sources) Headache; Translations: [Headache] 10-13-2023 Episodic Immunizations and screening for infectious disease (6 sources) Patient encounter status; Translations: [Encounter for immunization] 03-11-2024 Episodic Mood disorders (2 sources) Depressive disorder 12-17-2021 Chronic Osteoarthritis (10 sources) Primary gonarthrosis, bilateral; Translations: [Bilateral primary osteoarthritis of knee] 01-24-2024 Chronic Other aftercare (1 source) Other nursing home (current) drug therapy; Translations: [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] Onset: 01-17-2022 Episodic Other aftercare (2 sources) Long-term current use of inhaled steroid; Translations: [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] 04-15-2024 Episodic Other aftercare (2 sources) nursing home (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 of 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; Translations: [Long-term (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 of steroids] 04-15-2024 Episodic Other bone disease and musculoskeletal deformities (2 sources) Osteopenia 12-17-2021 Episodic Other bone disease and musculoskeletal deformities (1 source) Other specified disorders of bone density and structure, unspecified site; Translations: [OT D/O BONE DEN STRUCT UNS SITE] Onset: 01-17-2022 Episodic Other connective tissue disease (3 sources) Pain in right lower limb; Translations: [Pain in right leg] 03-29-2024 Episodic Other connective tissue disease (3 sources) Pain in right leg; Translations: [Pain in limb] 03-29-2024 Episodic Other fractures (3 sources) Fracture of rib; Translations: [Fracture of one rib, unspecified side, initial encounter for closed fracture] 02-18-2024 Episodic Other fractures (2 sources) Fracture of one rib, unspecified side, initial encounter for closed fracture; Translations: [Closed fracture of rib(s), unspecified] 02-08-2024 Episodic Other nervous system disorders (1 source) Numbness and tingling sensation of skin; Translations: [Anesthesia of skin] 04-01-2024 Episodic Other non-traumatic joint disorders (9 sources) Joint pain; Translations: [Pain in unspecified [...] conditions (not mental disorders or infectious disease) (11 sources) Screening for malignant neoplasm of colon [...] SATIETY] Onset: 01-17-2022 Episodic Residual codes; unclassified (4 sources) Menopause present; Translations: [Asymptomatic menopausal state] 02-08-2024 Episodic Residual codes; unclassified (3 sources) Asymptomatic menopausal state; Translations: [Symptomatic menopausal or female climacteric states] 02-08-2024 Episodic Spondylosis; intervertebral disc disorders; other back problems (20 sources) Lumbar radiculopathy; Translations: [Radiculopathy, lumbar region] 07-31-2023 Episodic Substance-related disorders (10 sources) Nicotine dependence, cigarettes, uncomplicated; Translations: [Tobacco dependence caused by cigarettes] Onset: 01-17-2022 03-11-2024 Chronic Thyroid disorders (6 sources) Thyroid nodule; Translations: [Nontoxic single thyroid nodule] 03-29-2024 Chronic Unclassified (2 sources) Patient encounter status 12-22-2021 Unclassified (1 source) CONTACT W/AND (SUSP) EXPOS COVID-19; Translations: [CONTACT W/AND (SUSP) EXPOS COVID-19] Onset: 01-13-2022 Past or Other Problems Problem Classification Problem Date Documented Da te Episodic/Chronic Other non-traumatic joint disorders (14 sources) Pain in right knee; Translations: [Pain in both knees] Onset: 01-24-2024 01-10-2024 Episodic Other non-traumatic joint disorders (1 source) Pain in left knee; Translations: [Pain in left knee] Onset: 01-24-2024 Episodic Results Test Name Value Interpretation Reference Range [facility] 04-22-2024 -------- -------- Specimen: [id number] Received: 04/24/24 Status: OMAR Hayes Num: [id number] Spec Type: Cytology Subm Dr: Cornelius Garrison MD Tissues: A FNA SLIDES NOPATH (INF RT THY) Procedures: Cyto Int and Re, PAPSTN/5 -------- Age/ Patient Sex Location Account Attending Physician -------- Cristine Manley 64/F LABELL [id number] Cornelius Garrison MD -------- SPEC NUM: [id number] RECD: 04/24/24 STATUS: OMAR HAYES NUM: [id number] TORI: 04/22/24- SUBM DR: Cornelius Garrison MD ENTERED: 04/24/[address] [facility] [address]: Les Lee MD SPEC TYPE: Cytology DEPT: KEN MINER ENTERED BY: [id number] RECV BY: [id number] ORDERED: Cyto Int and Re, PAPSTN/5 ORDERED: Cyto Int and Re, PAPSTN/5 Supplemental Report Addendum 1 Entered: 05/10/24 Supplemental for findings of [facility] [employer] W[employer]ER: -Ensemble Travel Med Surg Rn -Benign (risk of malignancy 4%) -Xpression [place] -N/A -Other Classifiers -BRAF p. V600E c. 1799T>A: Negative -RET/PTC1: Not detected -RET/PTC3: Not detected -MTC: Negative -Parathyroid: Negative TERT PROMOTER REGION: -Tests (2) not Performed (TNP) -------- Specimen: [id number] Received: 04/24/24 Status: OMAR Hayes Num: [id number] Spec Type: Cytology Subm Dr: Cornelius Garrison MD Tissues: A FNA SLIDES NOPATH (INF RT THY) Procedures: Cyto Int and Re, PAPSTN/5 -------- Patient: Cristine Manley [id number] (Continued) -------- Specimen: [id number] Received: 04/24/24 (Continued) Supplemental Report (Continued) Signed (signature on file) Parminder Sheth MD 04/24/24 1439 -------- Specimen: [id number] Received: 04/24/24 Status: OMAR [place] Num: [id number] Spec Type: Cytology Subm Dr: Cornelius Garrison MD Tissues: A FNA SLIDES NOPATH (INF RT THY) Procedures: Cyto Int and Re, PAPSTN/5 -------- Patient: Cristine Manley [id number] (Continued) -------- Specimen: [id number] Received: 04/24/24 (Continued) Supplemental Report (Continued) Addendum Signed (signature on file)Omkar Sheth MD 05/10/24 1132 -------- Pathological Diagnosis Right thyroid nodule, inferior, FNA cytology -Adequate follicular groups in the ThinPrep smear, appropriate for assessment, consisting of small to occasionally slightly larger and reactive follicular cells, suggesting dimorphic population and the category 3 [place] system, atypia of the undetermined significance, otherwise [...] vial stored at -20 for microscopic examination. (ME/nh) Microscopic Description Microscopic examinations are performed supporting the above interpretation CPT Codes 63176 -------- -------- Specimen: [id number] Received: 04/24/24 Status: OMAR Hayes Num: [id number] Spec Type: Cytology Subm Dr: Cornelius Garrison MD Tissues: A FNA SLIDES NOPATH (INF RT THY) Procedures: Cyto Int and Re, PAPSTN/5 -------- Patient: Cristine Manley [id number] (Continued) -------- Signed (signature on file) Chin-Diogenes Sheth MD 04/24/24 1439 Normal [facility] EMG 2 Extremitieson 04-01-20 EMG/NCS BLE Right L5/S1 radic [place] S1/2 radic [facility] Healthcare NVC 9-10 Nerveson 04-01-2024 EMG/NCS BLE Right L5/S1 radic [place] S1/2 radic [facility] Healthcare Provider Letteron 03-26-2024 Provider Letter (Inserted Image. Gela ble to display) Cornelius Garrison MD [address] [place] [address], [place] [address] Re: Cristine Manley Date of Visit: 03/25/2024 Dear Cornelius Garrison MD, This patient was recently seen in the neurosurgical office. Please see attached note for further details. Let me know if you have any questions or concerns. Sincerely, DEMARCUS Gan Providers: The following document(s) were included in the letter: March 25, 2024 17:40:13 EST - (03/25/2024) Neurosurgery Office Visit Note Normal [facility] Neurosurgery Office/Clinic N oteon 03-25-2024 Neurosurgery Office/Clinic Note Chief Complaint CT thoracic, lumbar, XR lumbar, hips and neck review History of Present Illness The patient is a pleasant 64-year-old right-handed female with history of chronic nicotine use, asthma and recently diagnosed COPD for which she is planned to see a appliquer zigzag in the near future. She also has history of decompression/discectomy T12-L1 by Dr. Ugarte in 2014 with good postoperative benefit. 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 Oral narcotics including Ashippun which makes pain tolerable though does not [...] increases slightl (more content not included)... Normal [facility] Basophils Auto (Bld) [#/Vol] on 03-21-2024 Basophils (Bld) [#/Vol] Automated basophil count 0.0-0.1 [facility] Basophils/100 WBC Auto (Bld) on 03-21-2024 Basophils/100 WBC (Bld) Automated basophil % 0.2-2.0 [facility] Eosinophils/100 WBC Auto (Bl d)on 03-21-2024 Eosinophils/100 WBC (Bld) Automated eosinophil % 0.9-7.0 [facility] Erythrocyte distribution wid th Auto (RBC) [Ratio]on 03-21-2024 Erythrocyte distribution width (RBC) [Ratio] Erythrocyte distribution width [Ratio] by Automated count 11.0-15.0 [facility] Hematocrit Auto (Bld) [Volum e fraction]on 03-21-2024 Hematocrit (Bld) [Volume fraction] Hematocrit [Volume Fraction] of Blood by Automated count 36.0-48.0 [facility] Hemoglobin [Mass/volume] in Bloodon 03-21-2024 Hemoglobin (Bld) [Mass/Vol] Hemoglobin [Mass/volume] in Blood 12.0-16.0 [facility] IgE [Units/volume] in Serum or Plasmaon 03-21-2024 IgE Qn IgE [Units/volume] i n Serum or Plasma [phone] [facility] Comment on above: Performed at: [address] [id number] Director: Levi Pedroza MD, Phone: [phone] Laboratory - Hematology and Cell countson 03-21-2024 Immature granulocytes/100 WBC (Bld) 0.1 % 0.0-0.5 [facility] Leukocytes [#/volume] correc shant for nucleated erythrocytes in Blood by Automated counon 03-21-2024 WBC corrected for nucl RBC Auto (Bld) [#/Vol] Leukocytes [#/volume] corrected for nucleated erythrocytes in Blood by Automated coun 4.0-11.0 [facility] Lymphocytes Auto (Bld) [#/Vo l]on 03-21-2024 Lymphocytes (Bld) [#/Vol] Lymphocytes [#/volume] in Blood by Automated count 1.2-3.8 [facility] Lymphocytes/100 WBC Auto (Bl d)on 03-21-2024 Lymphocytes/100 WBC (Bld) Lymphocytes/100 leukocytes in Blood by Automated count Low 20.5-60.0 [facility] MCH Auto (RBC) [Entitic mass ]on 03-21-2024 MCH (RBC) [Entitic mass] MCH [Entitic mass] by Automated count 26.7-34.0 [facility] MCHC Auto (RBC) [Mass/Vol]on 03-21-2024 MCHC (RBC) [Mass/Vol] MCHC [Mass/volume] by Automated count 29.9-35.2 [facility] MCV Auto (RBC) [Entitic vol] on 03-21-2024 MCV (RBC) [Entitic vol] MCV [Entitic volume] by Automated count 81.0-99.0 [facility] Monocytes Auto (Bld) [#/Vol] on 03-21-2024 Monocytes (Bld) [#/Vol] Automated blood monocyte count 0.3-0.8 [facility] Monocytes/100 WBC Auto (Bld) on 03-21-2024 Monocytes/100 WBC (Bld) Automated monocyte % 1.7-12.0 [facility] Neutrophils Auto (Bld) [#/Vo l]on 03-21-2024 Neutrophils (Bld) [#/Vol] Neutrophils [#/volume] in Blood by Automated count High 1.4-6.5 [facility] Neutrophils/100 WBC Auto (Bl d)on 03-21-2024 Neutrophils/100 WBC (Bld) Automated neutrophil % 43.0-75.0 [facility] No Panel Informationon 03-21 Eosinophils # (Auto) 0.1 10 3/uL 0.0-0.7 [facility] Immature Granulocyte # (Auto) 0.01 10 3/uL 0.00-0.03 [facility] Platelet mean volume Auto (B ld) [Entitic vol]on 03-21-2024 Platelet mean volume (Bld) [Entitic vol] Platelet mean volume [Entitic volume] in Blood by Automated count 9.5-13.5 [facility] Platelets Auto (Bld) [#/Vol] on 03-21-2024 Platelets (Bld) [#/Vol] Platelets [#/volume] in Blood by Automated count 150-450 [facility] RBC Auto (Bld) [#/Vol]on RBC (Bld) [#/Vol] Erythrocytes [#/volu me] in Blood by Automated count 4.20-5.40 [facility] Provider Letteron 02-29-2024 Provider Letter (Inserted Image. Gela ble to display) Cornelius Whittaker [address] [facility] [place] [address] Re: Cristine Manley Date of Visit: 02/23/2024 Dear Cornelius Garrison MD, Please see attached results on this mutual patient you have with [facility] Result Name Current Result CT Spine Thoracic/Lumbar Myelogram w/Con 02/23/2024 Let me know if you have any questions or concerns. Sincerely, Jaclyn Bliss [facility] Clinical [employer] Officer C C Providers: Normal [facility] CT Spine Thoracic/Lumbar Mye logram w/Conon [...] Electronically Signed in Other Vendor System) Normal [facility] PTon 02-23-2024 INR Coag (PPP) [Relative time] 1.0 {INR} Normal <=3.5 [facility] Comment on above: Result Comment: INR has no normal range. INR Therapeutic range is: 2.0-3.0 (AF, CVA, TIAs, DVT prophylaxis, acute DVT) 2.5-3.5 ([facility] heart valves, recurrent thrombosis/emboli) Performed By: #### P TINR #### [address] [address] PT Coag (PPP) [Time] 10.3 s Normal 9.2-12.0 [facility] Comment on above: Performed By: #### P TINR #### [address] [address] PTTon 02-23-2024 aPTT Coag (Bld) [Time] 24.8 s Normal 19.5-28.2 [facility] Comment on above: Performed By: #### P TT #### [address] [address] Platelet Counton 02-23-2024 Platelet 300 x10*3/mcL Normal 150-450 [facility] Comment on above: Performed By: #### P LTS #### [address] [address] XR Hip 2-3 Views Lefton 02-08 XR [...] Electronically Signed in Other Vendor System) Normal [facility] XR Myelography Spine 2 or Mo [...] Electronically Signed in Other Vendor System) Normal [facility] XR Spine Cervical 4 or 5 [...] Electronically Signed in Other Vendor System) Normal [facility] XR Spine Lumbosacral Bending 2-3 Viewson [...] Electronically Signed in Other Vendor System) Normal [facility] Neurosurgery Office/Clinic N sherry 02-13-2024 Neurosurgery Office/Clinic Note Chief Complaint Back lumbar pain radiculopathy consult History of Present Illness The patient is a pleasant 64-year-old right-handed female with history of chronic nicotine use, asthma and recently diagnosed COPD for which she is planned to see a appliquer zigzag in the near future. She also has history of decompression/discectomy T12-L1 by Dr. Ugarte in 2014 with good postoperative benefit. The patient presents to the neurosurgical office on behalf of of referral by Dr. Cornelius Garrison (primary care) regarding low back pain with radiation into the left lower extremity. The patient notes that pain has been chronic in nature, present even before her thoracolumbar surgery in 2014. 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 Oral narcotics including Ashippun which makes pain tolerable though does not [...] Newly diagnosed COPD, scheduled to see a appliquer zigzag in the near future Chronic nicotine use [...] marijuana use. 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 She denies any Worker's Comp. related claims regarding today's visit FAMILY HISTORY: Lung cancer: Father Diabetes mellitus: Mother Hypertension: Mother Review of Systems Constitutional: [No fevers, chills, sweats] Eye: [No recent visual problems] ENMT: [ (more content not included)... Normal [facility] [facility] Provider Letteron 02-13-2024 Provider Letter (Inserted Image. Gela ble to display) Corenlius Garrison MD [facility], [place] [address] Re: Cristine Sindhu Date of Visit: 02/13/2024 Dear Cornelius Garrison MD, This patient was recently seen in the neurosurgical office. Please see attached note for further details. Let me know if you have any questions or concerns. Sincerely, DEMARCUS Gan Providers: The following document(s) were included in the letter: February 13, 2024 09:39:53 EST - (02/13/2024) Neurosurgery Office Visit Note Normal [facility] XR knee BI 3V - NOT FOR ER U Sanam 01-24-2024 XR knee BI 3V - NOT FOR ER USE [facility] [address] [place] [address] XRay Report Signed Patient: Cristine Manley MR#: [id number] 53 : 1960 Acct:[id number] Age/Sex: 64 / F ADM Date: 01/24/24 [place] [facility] [place]: Type: [facility] Attending Dr: Alexandro Galvez DO Copies [...] Sunday Graham M.D.01/24/2024 3:45 PM Dictation Location: [place] [address] Transcribed By: [facility] 01/24/24 6838 Dictated By: Sunday Graham II, MD 01/24/24 582 Signed By: 01/24/24 642 Normal [facility] Basophils Auto (Bld) [#/Vol] on 01-19-2024 Basophils (Bld) [#/Vol] 0.0 10 3/uL 0.0-0.1 [facility] Basophils (Bld) [#/Vol] Automated basophil count 0.0-0.1 [facility] Basophils/100 WBC Auto (Bld) on 01-19-2024 Basophils/100 WBC (Bld) 0.2 % 0.2-2.0 [facility] Basophils/100 WBC (Bld) Automated basophil % 0.2-2.0 [facility] Eosinophils/100 WBC Auto (Bl d)on 01-19-2024 Eosinophils/100 WBC (Bld) 4.3 % 0.9-7.0 [facility] Eosinophils/100 WBC (Bld) Automated eosinophil % 0.9-7.0 [facility] Erythrocyte distribution wid th Auto (RBC) [Ratio]on 01-19-2024 Erythrocyte distribution width (RBC) [Ratio] 13.1 % 11.0-15.0 [facility] Erythrocyte distribution width (RBC) [Ratio] Erythrocyte distribution width [Ratio] by Automated count 11.0-15.0 [facility] Estimated glomerular filtrat ion rate (GFR) non- Americanon 01-19-2024 GFR/1.73 sq M.predicted among non-blacks MDRD (S/P/Bld) [Vol rate/Area] mL/min/{1.73_m2} >=60 mL/min/1.73 m 2 [facility] GFR/1.73 sq M.predicted among non-blacks MDRD (S/P/Bld) [Vol rate/Area] Estimated glomerular filtration rate (GFR) non- >=60 mL/min/1.73 m 2 [facility] Fibrin D-dimer [Presence] in Platelet poor plasma by Latex agglutinationon 01-19-2024 Fibrin D-dimer LA Ql (PPP) 0.43 mg/L FEU <=0.59 [facility] Comment on above: Increases in D-Dimer [...] Platelet poor plasma by Latex agglutination <=0.59 [facility] Comment on above: Increases in D-Dimer [...] Hematocrit (Bld) [Volume fraction] 39.5 % 36.0-48.0 [facility] Hematocrit (Bld) [Volume fraction] Hematocrit [Volume Fraction] of Blood by Automated count 36.0-48.0 [facility] Hemoglobin [Mass/volume] in Bloodon 01-19-2024 Hemoglobin (Bld) [Mass/Vol] 12.8 g/dL 12.0-16.0 [facility] Hemoglobin (Bld) [Mass/Vol] Hemoglobin [Mass/volume] in Blood 12.0-16.0 [facility] Laboratory - Chemistry and C hemistry - challengeon 01-19-2024 Calcium [Mass/Vol] 9.0 mg/dL 8.5-10.1 [facility] Chloride [Moles/Vol] 105 mmol/L 98-107 [facility] CO2 [Moles/Vol] 28.7 mmol/L 21.0-32.0 [facility] Creatinine [Mass/Vol] 0.92 mg/dL 0.55-1.02 [facility] GFR/1.73 sq M.predicted MDRD (S/P/Bld) [Vol rate/Area] mL/min/{1.73_m2} >=60 mL/min/1.73 m 2 [facility] Glucose [Mass/Vol] 78 mg/dL 74-106 [facility] Potassium [Moles/Vol] 4.0 mmol/L 3.5-5.1 [facility] Sodium [Moles/Vol] 138 mmol/L 136-145 [facility] Urea nitrogen [Mass/Vol] 27.0 mg/dL High 7.0-18.0 [facility] Urea nitrogen/Creatinin e [Mass ratio] 29.3 mg/mg [facility] Laboratory - Hematology and Cell countson 01-19-2024 Immature granulocytes/100 WBC (Bld) 0.3 % 0.0-0.5 [facility] Laboratory - Microbiology an d Antimicrobial susceptibilityon 01-19-2024 SARS-CoV-2 (COVID-19) RNA JOSELUIS+probe Ql (Unsp spec) Negative NEGATIVE [facility] Comment on above: This test has [...] (Bld) [#/Vol] 12.6 10 3/uL High 4.0-11.0 [facility] WBC corrected for nucl RBC Auto (Bld) [#/Vol] Leukocytes [#/volume] corrected for nucleated erythrocytes in Blood by Automated coun High 4.0-11.0 [facility] Lymphocytes Auto (Bld) [#/Vo l]on 01-19-2024 Lymphocytes (Bld) [#/Vol] 4.4 10 3/uL High 1.2-3.8 [facility] Lymphocytes (Bld) [#/Vol] Lymphocytes [#/volume] in Blood by Automated count High 1.2-3.8 [facility] Lymphocytes/100 WBC Auto (Bl d)on 01-19-2024 Lymphocytes/100 WBC (Bld) 35.0 % 20.5-60.0 [facility] Lymphocytes/100 WBC (Bld) Lymphocytes/100 leukocytes in Blood by Automated count 20.5-60.0 [facility] MCH Auto (RBC) [Entitic mass ]on 01-19-2024 MCH (RBC) [Entitic mass] 29.4 pg 26.7-34.0 [facility] MCH (RBC) [Entitic mass] MCH [Entitic mass] by Automated count 26.7-34.0 [facility] MCHC Auto (RBC) [Mass/Vol]on 01-19-2024 MCHC (RBC) [Mass/Vol] 32.4 g/dL 29.9-35.2 [facility] MCHC (RBC) [Mass/Vol] MCHC [Mass/volume] by Automated count 29.9-35.2 [facility] MCV Auto (RBC) [Entitic vol] on 01-19-2024 MCV (RBC) [Entitic vol] 90.6 fL 81.0-99.0 [facility] MCV (RBC) [Entitic vol] MCV [Entitic volume] by Automated count 81.0-99.0 [facility] Monocytes Auto (Bld) [#/Vol] on 01-19-2024 Monocytes (Bld) [#/Vol] 1.2 10 3/uL High 0.3-0.8 [facility] Monocytes (Bld) [#/Vol] Automated blood monocyte count High 0.3-0.8 [facility] Monocytes/100 WBC Auto (Bld) on 01-19-2024 Monocytes/100 WBC (Bld) 9.5 % 1.7-12.0 [facility] Monocytes/100 WBC (Bld) Automated monocyte % 1.7-12.0 [facility] Neutrophils Auto (Bld) [#/Vo l]on 01-19-2024 Neutrophils (Bld) [#/Vol] 6.4 10 3/uL 1.4-6.5 [facility] Neutrophils (Bld) [#/Vol] Neutrophils [#/volume] in Blood by Automated count 1.4-6.5 [facility] Neutrophils/100 WBC Auto (Bl d)on 01-19-2024 Neutrophils/100 WBC (Bld) 50.7 % 43.0-75.0 [facility] Neutrophils/100 WBC (Bld) Automated neutrophil % 43.0-75.0 [facility] No Panel Informationon 01-18 Bedside Influenza Type A Antigen Negative [facility] Comment on above: Negative for Flu A p rotein antigen. Infection due to Flu Acannot be ruled out. Flu A antigen in the sample may bebelow the detection limit of the test. Bedside Influenza Type B Antigen Negative [facility] Comment on above: Negative for Flu B p rotein antigen. Infection due to Flu Bcannot be ruled out. Flu B antigen in the sample may bebelow the detection limit of the test. Eosinophils # (Auto) 0.5 10 3/uL 0.0-0.7 [facility] Immature Granulocyte # (Auto) 0.04 10 3/uL High 0.00-0.03 [facility] Troponin I High Sensitivity 5.8 pg/mL 4.0-51.3 [facility] Comment on above: CUT-OFF POINTS HAVE [...] (Bld) [Entitic vol] 9.3 fL Low 9.5-13.5 [facility] Platelet mean volume (Bld) [Entitic vol] Platelet mean volume [Entitic volume] in Blood by Automated count Low 9.5-13.5 [facility] Platelets Auto (Bld) [#/Vol] on 01-19-2024 Platelets (Bld) [#/Vol] 304 10 3/uL 150-450 [facility] Platelets (Bld) [#/Vol] Platelets [#/volume] in Blood by Automated count 150-450 [facility] RBC Auto (Bld) [#/Vol]on RBC (Bld) [#/Vol] 4.36 10 6/uL 4.20-5.40 [facility] RBC (Bld) [#/Vol] Erythrocytes [#/volu me] in Blood by Automated count 4.20-5.40 [facility] Serum or plasma anion gap de terminationon 01-19-2024 Anion gap [Moles/Vol] 8.3 mmol/L [facility] Anion gap [Moles/Vol] Serum or plasma anion gap determination [facility] Borrelia burgdorferi IgG+IgM Ab [Presence] in Serum by Immunoassayon 10-13-2023 B. burgdorferi IgG+IgM IA Ql (S) Negative Negative [facility] Comment on above: Lyme antibodies not detected. Reflex testing is notindicated.No laboratory evidence of infection with B. burgdorferi(Lyme disease). Negative results may occur in patientsrecently infected (less than or equal to 14 days) with B.burgdorferi. If recent infection is suspected, repeattesting on a new sample collected in 7 to 14 days isrecommended.Performed at: [facility] [id number] Director: Jeovany Bazan PhD, Phone: [phone] General Surgery Office/Clini c Noteon 02-21-2022 General [...] Primary malignant neoplasm of lung: Father. Normal [facility] Comment on above: Result Comment: Elec tronically [...] Tobacco user Very low density lipoprotinemia Normal [facility] Reminderson 02-01-2022 Reminders - From: Sushma Shell LPN To: N - Clinical; Sent: 02/01/2022 16:18:52 EDT Show up: 04/12/2022 07:00:00 EST Subject: EGD recall Due Date/Time: 05/04/2022 07:00:00 EST Reminder/Recall Patient is due to repeat EGD 05/04/2022 due to gastric ulcer. Normal [facility] Outside Colonoscopyon 2021 Outside Colonoscopy [id number]#[id number]:127 Normal [facility] Pathology Noteon 01-14-2022 Pathology Note [id number]#1.00CD:127 Normal [facility] Reminderson 01-14-2022 Reminders - From: Sushma Shell LPN To: N - Clinical; Sent: 01/14/2022 08:07:35 EDT Show up: 12/14/2031 07:00:00 EDT Subject: colonoscopy recall Due Date/Time: 01/13/2032 07:00:00 EDT Reminder/Recall Patient is due for screening colonoscopy 01/13/2032. Normal [facility] Pre-Certification Formon Pre-Certification Form [id number]#1.00CD:127 Normal [facility] Lab Reportson 01-11-2022 Lab Reports [id number]#[id number]:127 Normal [facility] Covid-19 PCR (CVDTB)on SARS-CoV-2 (COVID-19) RNA JOSELUIS+probe Ql (Unsp spec) Not detected Normal NOT DETECTED [facility] Comment on above: Result Comment: This test is not yet approved or cleared by the [place] FDA. When there are no FDA-approved or cleared tests available, and other criteria are met, FDA can make tests available under an emergency access mechanism called an Emergency Use Authorization (EUA). The EUA for this test is supported by the [place] of Health and Human Service's (HHS's) declaration [...] consistent with SARS-CoV-2. Performed By: #### C [facility] #### [facility] [address] [place] [address] Dr. Pablo Sheth Physician Orderon 12-23-2021 Physician Order [id number]#[id number]:127 Normal [facility] Ambulatory Visit Summaryon 0 12-22-2021 Ambulatory Visit [...] Tobacco user Very low density lipoprotinemia Normal [facility] CBC AUTO DIFFon 12-17-2021 BASO # 0.1 103/ul Normal 0.0-0.1 [facility] Comment on above: Performed By: #### D ATCBC #### [facility] [address] [place], [place] [address] Dr. Pablo Sheth Basophils/100 WBC (Bld) 0.4 % Normal 0.2-2.0 [facility] Comment on above: Performed By: #### D ATCBC #### [facility] [address] [place] [address] [address] Pablo Sheth EO # 0.3 103/ul Normal 0.0-0.7 [facility] Comment on above: Performed By: #### D ATCBC #### [facility] [address] [place] [address] Dr. Pablo Sheth Eosinophils/100 WBC (Bld) 2.4 % Normal 0.9-7.0 [facility] Comment on above: Performed By: #### D ATCBC #### [facility] [address] [place] [address] Dr. Pablo Sheth Erythrocyte distribution width (RBC) [Ratio] 13.2 % Normal 11.0-15.0 [facility] Comment on above: Performed By: #### D ATCBC #### [facility] [address] [place] [address] Dr. Pablo Sheth Hematocrit (Bld) [Volume fraction] 42.6 % Normal 36.0-48.0 [facility] Comment on above: Performed By: #### D ATCBC #### [facility] [address] [place] [address] Dr. Pablo Sheth Hemoglobin (Bld) [Mass/Vol] 13.7 g/dL Normal 12.0-16.0 [facility] Comment on above: Performed By: #### D ATCBC #### [facility] [address] [place] [address] Dr. Pablo Sheth IG # 0.05 10e3/ul Critically high 0.00-0.03 [facility] Comment on above: Performed By: #### D ATCBC #### [facility] [address] [place] [address] Dr. Pablo Sheth IG % 0.4 % Normal 0.0-0.5 [facility] Comment on above: Performed By: #### D ATCBC #### [facility] [address] [place] [address] Dr. Pablo Sheth LYMPH # 2.8 103/ul Normal 1.2-3.8 [facility] Comment on above: Performed By: #### D ATCBC #### [facility] [address] [place] [address] Dr. Pablo Sheth Lymphocytes/100 WBC (Bld) 20.9 % Normal 20.5-60.0 [facility] Comment on above: Performed By: #### D ATCBC #### [facility] [address] [place] [address] Dr. Pablo Sheth MCH (RBC) [Entitic mass] 29.2 pg Normal 26.7-34.0 [facility] Comment on above: Performed By: #### D ATCBC #### [facility] [address] [place] [address] Dr. Pablo Sheth MCHC (RBC) [Mass/Vol] 32.2 g/dL Normal 29.9-35.2 [facility] Comment on above: Performed By: #### D ATCBC #### [facility] [address] [place] [address] Dr. Pablo Sheth MCV (RBC) [Entitic vol] 90.8 fL Normal 81.0-99.0 [facility] Comment on above: Performed By: #### D ATCBC #### [facility] [address] [place] [address] Dr. Pablo Sheth MONO # 1.0 103/ul Critically high 0.3-0.8 [facility] Comment on above: Performed By: #### D ATCBC #### [facility] [address] [place] [address] Dr. Pablo Sheth Monocytes/100 WBC (Bld) 7.5 % Normal 1.7-12.0 [facility] Comment on above: Performed By: #### D ATCBC #### [facility] [address] [place] [address] Dr. Pablo Sheth NEUT # 9.2 103/ul Critically high 1.4-6.5 [facility] Comment on above: Performed By: #### D ATCBC #### [facility] [address] [place] [address] Dr. Pablo Sheht Neutrophils/100 WBC (Bld) 68.4 % Normal 43.0-75.0 [facility] Comment on above: Performed By: #### D ATCBC #### [facility] [address] [place] [address] Dr. Pablo Sheth Platelet mean volume (Bld) [Entitic vol] 9.3 fL Critically low 9.5-13.5 [facility] Comment on above: Performed By: #### D ATCBC #### [facility] [address] [place] [address] Dr. Pablo Sheth PLT 313 103/ul Normal 150-450 [facility] Comment on above: Performed By: #### D ATCBC #### [facility] [address] [place] [address] Dr. Pablo Sheth RBC 4.69 106/ul Normal 4.20-5.40 [facility] Comment on above: Performed By: #### D ATCBC #### [facility] [address] [place] [address] Dr. Pablo Sheth WBC 13.4 103/ul Critically high 4.0-11.0 The [facility] Comment on above: Performed By: #### D ATCBC #### [facility] [address] [place] [address] Dr. Pablo Sheth BERKLEY - TSHon 12-17-2021 TSH 1.241 uIU/mL Normal 0.358-3.740 [facility] Comment on above: Performed By: #### D ATTTONYA DATBMP #### [facility] [address] [place] [address] Dr. Pablo Sheth TSH RANGE SEE BELOW Normal [facility] Comment on above: Result Comment: <0.3 4 UIU/ml HYPERTHYROID 0.34-5.60 UIU/ml EUTHYROID >5.60 UIU/ml HYPOTHYROID Performed By: #### D ATTSH DATBMP #### [facility] [address] [place] [address] Dr. Pablo Sheth BERKLEY- BMP WITH LIPIDon 2021 Anion gap [Moles/Vol] 11.9 mmol/L Normal [facility] Comment on above: Performed By: #### D ATTSH DATBMP #### [facility] [address] [place] [address] [address] Pablo Sheth Calcium [Mass/Vol] 9.1 mg/dL Normal 8.5-10.1 [facility] Comment on above: Performed By: #### D ATTTONYA, DATBMP #### [facility] [address] [place] [address] [address] Pablo Sheth Chloride [Moles/Vol] 104 mmol/L Normal 98-107 [facility] Comment on above: Performed By: #### D ATTTONYA, DATBMP #### [facility] [address] [place] [address] [address] Pablo Sheth Cholesterol [Mass/Vol] 207 mg/dL Critically high <=200 [facility] Comment on above: Performed By: #### D ATTTONYA, DATBMP #### [facility] [address] [place] [address] [address] Pablo Sheth Cholesterol in HDL [Mass/Vol] 52 mg/dL Normal 40-60 [facility] Comment on above: Performed By: #### D ATTTONYA, DATBMP #### [facility] [address] [place] [address] [address] Pablo Sheth Cholesterol in LDL [Mass/Vol] 141.4 mg/dL Normal [facility] Comment on above: Performed By: #### D ATTTONYA, DATBMP #### [facility] [address] [place] [address] [address] Pablo Sheth CO2 [Moles/Vol] 29.3 mmol/L Normal 21.0-32.0 The [facility] Comment on above: Performed By: #### D ATTSH, DATBMP #### [facility] [address] [place] [address] [address] Pablo Sheth Creatinine [Mass/Vol] 0.77 mg/dL Normal 0.55-1.02 [facility] Comment on above: Performed By: #### D ATTSH, DATBMP #### [facility] [address] [place] [address] [address] Pablo Sheth EGFR-AF SURINAMESE >60 Normal >=60 The [facility] Comment on above: Performed By: #### D ATTSH, DATBMP #### [facility] [address] [place] [address] [address] Pablo Sheth EGFR-NON AF SURINAMESE >60 Normal >=60 [facility] Comment on above: Performed By: #### D ATTTONYA, DATBMP #### [facility] [address] [place] [address] [address] Pablo Sheth Glucose [Mass/Vol] 109 mg/dL Critically high 74-106 [facility] Comment on above: Performed By: #### D ATTTONYA, DATBMP #### [facility] [address] [place] [address] [address] Pablo Sheth HDL NORMAL > or = 60 mg/dl - LO W CARDIOVASCULAR RISK <40 mg/dl - HIGH CARDIOVASCULAR RISK Normal [facility] Comment on above: Performed By: #### D JOSE J DATBMP #### [facility] [address] [place] [address] [address] Pablo Sheth LDL CALC NORMAL SEE BELOW Normal [facility] Comment on above: Result Comment: <100 mg/dl OPTIMAL 100 - 129 mg/dl NEAR OR ABOVE OPTIMAL 130 - 159 mg/dl BORDERLINE HIGH 160 - 189 mg/dl HIGH >190 mg/dl VERY HIGH Performed By: #### D JOSE J DATBMP #### [facility] [address] [place] [address] [address] Pablo Sheth Potassium [Moles/Vol] 4.2 mmol/L Normal 3.5-5.1 [facility] Comment on above: Performed By: #### D JOSE J DATBMP #### [facility] [address] [place] [address] [address] Pablo Sheth Sodium [Moles/Vol] 141 mmol/L Normal 136-145 [facility] Comment on above: Performed By: #### D ATTTONYA, DATBMP #### [facility] [address] [place] [address] [address] Pablo Sheth Triglyceride [Mass/Vol] 68 mg/dL Normal <=150 [facility] Comment on above: Performed By: #### D JOSE J, DATBMP #### [facility] [address] [place] [address] [address] Pablo Sheth Urea nitrogen [Mass/Vol] 26.0 mg/dL Critically high 7.0-18.0 [facility] Comment on above: Performed By: #### D JOSE J DATBMP #### [facility] [address] [place] [address] [address] Pablo Sheth Urea nitrogen/Creatinin e [Mass ratio] 33.8 mg/mg Normal [facility] Comment on above: Performed By: #### D JOSE J, DATBMP #### [facility] [address] [place] [address] [address] Pablo Sheth VLDL CALC 13.6 mg/dL Normal [facility] Comment on above: Performed By: #### D JOSE J DATBMP #### [facility] [address] [place] [address] [address] Pablo Sheth Physician Referralon 022 Physician Referral [id number]:127 Normal [facility] Vital Signs Date Time Vital Sign Value Performing Clinician Faci lity 04-15-2024 15:14-0500 Body height 170.18 cm Cornelius Garrison MD Work Phone: [facility] 04-15-2024 15:14-0500 Body mass index (BMI) [Ratio] 27.7 kg/m2 Cornelius Garrison MD Work Phone: [facility] 04-15-2024 15:14-0500 Body temperature 98.4 [degF] Cornelius Garrison MD Work Phone: [facility] 04-15-2024 15:14-0500 Body weight 80.28 kg Cornelius Garrison MD Work Phone: [facility] 04-15-2024 15:14-0500 Diastolic blood pressure 82 mm[Hg] Cornelius Garrison MD Work Phone: [facility] 04-15-2024 15:14-0500 Heart rate 83 /min Cornelius Garrison MD Work Phone: [facility] 04-15-2024 15:14-0500 Respiratory rate 20 /min Cornelius Garrison MD Work Phone: [facility] 04-15-2024 15:14-0500 SaO2% (BldA) [Mass fraction] 96 % Cornelius Garrison MD Work Phone: [facility] 04-15-2024 15:14-0500 Systolic blood pressure 128 mm[Hg] Cornelius Garrison MD Work Phone: [facility] 03-29-2024 08:56-0500 Body height 170.18 cm Cornelius Garrison MD Work Phone: [facility] 03-29-2024 08:56-0500 Body mass index (BMI) [Ratio] 27.2 kg/m2 Cornelius Garrison MD Work Phone: [facility] 03-29-2024 08:56-0500 Body weight 78.92 kg Cornelius Garrison MD Work Phone: [facility] 03-29-2024 08:56-0500 Diastolic blood pressure 86 mm[Hg] Cornelius Garrison MD Work Phone: [facility] 03-29-2024 08:56-0500 Heart rate 91 /min Cornelius Garrison MD Work Phone: [facility] 03-29-2024 08:56-0500 SaO2% (BldA) [Mass fraction] 95 % Cornelius Garrison MD Work Phone: [facility] 03-29-2024 08:56-0500 Systolic blood pressure 124 mm[Hg] Cornelius Garrison MD Work Phone: [facility] 03-11-2024 15:29-0500 Body height 170.18 cm Cornelius Garrison MD Work Phone: [facility] 03-11-2024 15:29-0500 Body mass index (BMI) [Ratio] 27.8 kg/m2 Cornelius Garrison MD Work Phone: [facility] 03-11-2024 15:29-0500 Body temperature 97.6 [degF] Cornelius Garrison MD Work Phone: [facility] 03-11-2024 15:29-0500 Body weight 80.73 kg Cornelius Garrison MD Work Phone: [facility] 03-11-2024 15:29-0500 Diastolic blood pressure 80 mm[Hg] Cornelius Garrison MD Work Phone: [facility] 03-11-2024 15:29-0500 Heart rate 82 /min Cornelius Garrison MD Work Phone: [facility] 03-11-2024 15:29-0500 Respiratory rate 20 /min Cornelius Garrison MD Work Phone: [facility] 03-11-2024 15:29-0500 SaO2% (BldA) [Mass fraction] 98 % Cornelius Garrison MD Work Phone: [facility] 03-11-2024 15:29-0500 Systolic blood pressure 134 mm[Hg] Cornelius Garrison MD Work Phone: [facility] 02-08-2024 13:55-0400 Body height 170.18 cm MD Cornelius Garrison Work Phone: [facility] 02-08-2024 13:55-0400 Body mass index (BMI) [Ratio] 27.9 kg/m2 MD Cornelius Garrison Work Phone: [facility] 02-08-2024 13:55-0400 Body weight 80.9 kg MD Cornelius Garrison Work Phone: [facility] 02-08-2024 13:55-0400 Diastolic blood pressure 78 mm[Hg] MD Cornelius Garrison Work Phone: [facility] 02-08-2024 13:55-0400 Heart rate 74 /min MD Cornelius Garrison Work Phone: [facility] 02-08-2024 13:55-0400 SaO2% (BldA) [Mass fraction] 96 % MD Cornelius Garrison Work Phone: [facility] 02-08-2024 13:55-0400 Systolic blood pressure 110 mm[Hg] MD Cornelius Garrison Work Phone: [facility] 01-24-2024 14:35-0400 Body height 170.18 cm MD Cornelius Garrison Work Phone: [facility] 01-24-2024 14:35-0400 Body mass index (BMI) [Ratio] 28.3 kg/m2 MD Cornelius Garrison Work Phone: [facility] 01-24-2024 14:35-0400 Body weight 82.21 kg MD Cornelius Garrison Work Phone: [facility] 01-09-2024 15:17-0400 Body height 167.64 cm [facility] 01-09-2024 15:17-0400 Body mass index (BMI) [Ratio] 28.2 kg/m2 [facility] 01-09-2024 15:17-0400 Body weight 79.37 kg [facility] 01-09-2024 15:17-0400 Diastolic blood pressure 91 mm[Hg] [facility] 01-09-2024 15:17-0400 Heart rate 76 /min [facility] 01-09-2024 15:17-0400 SaO2% (BldA) [Mass fraction] 97 % [facility] 01-09-2024 15:17-0400 Systolic blood pressure 135 mm[Hg] [facility] 11-01-2023 08:57-0400 Body height 167.64 cm [facility] 11-01-2023 08:57-0400 Body mass index (BMI) [Ratio] 28.2 kg/m2 [facility] 11-01-2023 08:57-0400 Body weight 79.37 kg [facility] 11-01-2023 08:57-0400 Diastolic blood pressure 90 mm[Hg] [facility] 11-01-2023 08:57-0400 Heart rate 63 /min [facility] 11-01-2023 08:57-0400 Systolic blood pressure 136 mm[Hg] [facility] 10-13-2023 09:19-0400 Body height 167.64 cm [facility] 10-13-2023 09:19-0400 Body mass index (BMI) [Ratio] 28 kg/m2 [facility] 10-13-2023 09:19-0400 Body weight 78.92 kg [facility] 10-13-2023 09:19-0400 Diastolic blood pressure 76 mm[Hg] [facility] 10-13-2023 09:19-0400 Heart rate 78 /min [facility] 10-13-2023 09:19-0400 SaO2% (BldA) [Mass fraction] 98 % [facility] 10-13-2023 09:19-0400 Systolic blood pressure 118 mm[Hg] [facility] 07-31-2023 10:09-0400 Body height 167.64 cm [facility] 07-31-2023 10:09-0400 Body mass index (BMI) [Ratio] 28.8 kg/m2 [facility] 07-31-2023 10:09-0400 Body weight 80.9 kg [facility] 07-31-2023 10:09-0400 Diastolic blood pressure 89 mm[Hg] [facility] 07-31-2023 10:09-0400 Heart rate 74 /min [facility] 07-31-2023 10:09-0400 Systolic blood pressure 138 mm[Hg] [facility] 12-22-2021 14:20-0400 Blood Pressure Location Mihaela CASAS [facility] [place] 12-22-2021 14:20-0400 Diastolic blood pressure 80 mm[Hg] Mihaela CASAS [facility] [place] 12-22-2021 14:20-0400 Heart rate 72 /min Mihaela CASAS [facility] [place] 12-22-2021 14:20-0400 Respiratory rate 16 /min Mihaela CASAS [facility] [place] 12-22-2021 14:20-0400 Systolic blood pressure 116 mm[Hg] Mihaela CASAS General Surgery [place] Encounters Encounter Date Encounter Type Care Provider Facility Start: 05-10-2024 ambulatory Cornelius Garrison MD Work Phone: [facility] Work Phone: Start: 05-10-2024 Non-patient / Non-visit Cornelius Garrison MD Work Phone: [facility] Work Phone: Start: 04-29-2024 End: 04-29-2024 ambulatory Duong Oreilly MD Facility:[facility] Start: 04-22-2024 End: 04-22-2024 ambulatory Cornelius Garrison MD Work Phone: [facility] Work Phone: Start: 04-22-2024 End: 04-22-2024 Departed Referred Cornelius Garrison MD Work Phone: [facility] [place] [facility] Start: 04-22-2024 End: 04-22-2024 ambulatory Cornelius Garrison MD Facility:[facility] Start: 04-15-2024 End: 04-15-2024 ambulatory Cornelius Garrison MD Work Phone: [facility] Work Phone: Start: 04-15-2024 End: 04-15-2024 Patient encounter procedure Cornelius Garrison MD Work Phone: [facility] Physician [facility] Work Phone: Start: 04-01-2024 End: 04-01-2024 Patient encounter procedure Kane Perez DO Work Phone: [facility] Comment on above: Lumbosacral radiculo bakari (Primary Dx); Numbness and tingling Start: 04-01-2024 End: 04-01-2024 ambulatory KANE PEREZ Not Available Start: 04-01-2024 End: 04-01-2024 Bamboo flowsheet Kane Keith DO Work Phone: [facility] Start: 04-01-2024 End: 04-01-2024 Bamboo flowsheet Kane Keith DO Work Phone: [facility] Start: 03-29-2024 End: 03-29-2024 Patient encounter procedure Cornelius Garrison MD Work Phone: [facility] Physician [facility] Work Phone: Start: 03-25-2024 End: 03-25-2024 ambulatory Cornelius Garrison MD Facility:[facility] Start: 03-21-2024 Non-patient / Non-visit Cornelius Garrison MD Work Phone: [facility] Work Phone: Start: 03-11-2024 End: 03-11-2024 Patient encounter procedure Cornelius Garrison MD Work Phone: [facility] Physician [facility] Work Phone: Start: 03-04-2024 Non-patient / Non-visit Cornelius Garrison MD Work Phone: [facility] Work Phone: Start: 03-04-2024 End: 03-04-2024 Patient encounter procedure Cornelius Garrison MD Work Phone: [facility] Work Phone: Start: 03-04-2024 End: 03-04-2024 ambulatory Cornelius Garrison Facility:[facility] Start: 02-23-2024 End: 02-23-2024 ambulatory Cornelius Garrison MD Facility:[facility] Start: 02-19-2024 End: 02-19-2024 ambulatory Cornelius Garrison MD Facility:[facility] Start: 02-13-2024 End: 02-13-2024 ambulatory Ofelia Arceo PA-C Facility[facility] Start: 02-08-2024 End: 02-08-2024 ambulatory MD Cornelius Garrison Work Phone: [facility] Work Phone: Start: 02-08-2024 End: 02-08-2024 Patient encounter procedure MD Cornelius Garrison Work Phone: [facility] Work Phone: Start: 02-07-2024 Non-patient / Non-visit MD Mala Garrison Work Phone: [facility] Work Phone: Start: 02-01-2024 Non-patient / Non-visit Cornelius Garrison MD Work Phone: [facility] Work Phone: Start: 01-24-2024 End: 01-24-2024 ambulatory MD Cornelius Garrison Work Phone: [facility] Work Phone: Start: 01-24-2024 End: 01-24-2024 Patient encounter procedure MD Cornelius Garrison Work Phone: [facility] Work Phone: Start: 01-24-2024 End: 01-24-2024 Patient encounter procedure MD Cornelius Garrison Work Phone: [facility] Start: 01-24-2024 End: 01-24-2024 ambulatory MD Cornelius Garrison Work Phone: [facility] Work Phone: Start: 01-19-2024 Non-patient / Non-visit MD Mala Garrison Work Phone: [facility] Work Phone: Start: 01-19-2024 Non-patient / Non-visit MD Mala Garrison Work Phone: [facility] Work Phone: Start: 01-09-2024 End: 01-09-2024 ambulatory [facility] Work Phone: Start: 01-09-2024 End: 01-09-2024 Patient encounter procedure [facility] Phys[facility] Work Phone: Start: 11-01-2023 End: 11-01-2023 ambulatory [facility] Work Phone: Start: 11-01-2023 End: 11-01-2023 Patient encounter procedure [facility] Work Phone: Start: 10-13-2023 End: 10-13-2023 ambulatory [facility] Work Phone: Start: 10-13-2023 End: 10-13-2023 Patient encounter procedure [facility] Work Phone: Start: 07-31-2023 End: 07-31-2023 ambulatory [facility] Work Phone: Start: 07-31-2023 End: 07-31-2023 Patient encounter procedure [facility] Work Phone: Start: 05-26-2023 Non-patient / Non-visit [facility] Work Phone: Start: 02-01-2022 End: 02-02-2022 ambulatory Mihaela CASAS Facility:[facility] Start: 02-01-2022 End: 02-01-2022 Patient encounter procedure Mihaela CASAS General Surgery Nill/Said [place] Start: 01-13-2022 Encounter for preprocedural laboratory examination DR MIHAELA CASAS [facility] Start: 01-12-2022 End: 01-13-2022 ambulatory Mihaela CASAS Facility:[id number] Start: 01-10-2022 End: 01-11-[address] MIHAELA CASAS Facility: Start: 01-10-2022 End: 01-11-2022 Encounter for preprocedural laboratory examination DR MIHAELA CASAS Facility: Start: 12-22-2021 End: 12-23-2021 ambulatory Mihaela CASAS Facility: [place] Start: 12-22-2021 End: 12-22-2021 Patient encounter procedure Mihaela CASAS General Surgery Nill/[facility] [place] Start: 12-17-2021 End: 12-18-2021 ambulatory CORNELIUS GARRISON PROVIDER Facility: [facility] Procedures Date Procedure Procedure Detail Performing Clinician [...] M ichael NILL Excision of bunion Mihaela Pisano ILL Repair of vaginal tear Ebenezer el NILL Tonsillectomy Mihaela NILL Plan of Treatment Date Care Activity Detail Author Start: 05-10-2024 Patient referral [facility] Work Phone: Start: 04-05-2024 Patient referral [facility] Work Phone: Start: 04-01-2024 End: 04-01-2024 Patient encounter procedure 04/01/2024 3:00 PM EST Procedure [facility] [address] [place] [address] Kane Perez DO [address] [place] [address] Arrived [facility] Comment on above: Arrived Start: 01-24-2024 X-ray of both knees, three views XR knee BI 3V - NOT FOR ER USE [facility] Start: 01-24-2024 XR Knee - bilateral 3 Views [facility] Start: 01-10-2024 Patient referral [facility] Work Phone: CT Unspecified body region [facility] CT Unspecified body region [facility] DXA Skeletal system.axial Views for bone density [facility] Patient Education Low back pain in adults [facility] Work Phone: Patient referral [facility] Work Phone: US Lower extremity v ein - right [facility] US Thyroid gland [facility] Immunizations Immunization Date Immunization Notes Care Provider Fa cility 03-11-2024 diphtheria, tetanus toxoids and acellular pertussis vaccine, unspecified formulation Cornelius Garrison MD Work Phone: [facility] 03-29-2021 COVID-19 mRNA, Comirnaty (Pfizer) [facility] 08-11-2020 COVID-19 mRNA, Comirnaty (Pfizer) [facility] 07-21-2020 COVID-19 mRNA, Comirnaty (Pfizer) [facility] 10-07-2018 diphtheria, tetanus toxoids and acellular pertussis vaccine, unspecified formulation [facility] 02-05-2014 tetanus and diphther ia toxoids, adsorbed, preservative free, for adult use (5 Lf of tetanus toxoid and 2 Lf of diphtheria toxoid) [facility] Payers Date Payer Category Payer Medicare [id number] 2024 Medicare [id number] 2023 Unknown 2021 Unknown [id number] 1960 Self-pay [id number] 1960 Unknown [id number] [id number] 1959 Unknown [id number] [id number] 1959 Unknown [id number] 2.16.840.1.067512.3.579.2.727 1959 Unknown [id number] 2.16.840.1.953146.3.579.2.727 1959 Unknown [id number] 2.16.840.1.125202.3.579.2.593 1959 Unknown [id number] 2.16.840.1.972406.3.579.2.593 1959 Unknown [id number] 2.16.840.1.200412.3.579.2.1259 1959 Unknown [id number] 2.16.840.1.526194.3.579.2.196 1959 Unknown [id number] 2.16.840.1.825253.3.579.2.196 1959 Unknown [id number] 2.16.840.1.442971.3.579.2.196 1959 Unknown [id number] 2.16.840.1.374335.3.579.2.196 1959 Unknown [id number] 2.16.840.1.986514.3.579.2.196 1959 Unknown [id number] 2.16.840.1.381052.3.579.2.196 1959 Unknown [id number] 2.16.840.1.586094.3.579.2.196 Private Health Insurance [employer] [facility] PFFS G [id number] Unknown [id number] Unknown [id number] [id number] Unknown MMO [employer] [id number] Unknown Regular Insurance [id number] Social History Date Type Detail Facility Start: 12-22-2021 Heavy tobacco smoker (finding) [facility] [place] Never [facility] [place] Female [facility] [place] Start: 07-31-2023 End: 04-15-2024 Tobacco smoking status NHIS Smoker (finding) [facility] Start: 1960 Sex Assigned At Female F [facility] Tobacco smoking status [facility] Tobacco smoking consumption unknown [facility] Start: 1960 Sex assigned at Not on file [facility] Start: 04-15-2024 End: 05-10-2024 Sex Female (finding) [facility] Functional Status Date Assessment Result Facility 12-22-2021 N/A General Surgery [place] Clinical Notes 12-22-2021 to 05-10-2024 Daniel Dougherty, ARRT - 04/01/2024 3:00 PM EST Note Date & Type Note Facility 05-10-2024 Hospital Discharg e instructions Ambulatory OrdersReferral to ENT Time Frame: 05/10/24, Location: None Selected [facility] Work Phone: 04-01-2024 History of Presen t illness Narrative Images from the original note were not included. 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 documented in this encounter 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 acute April 15 3:12pm Moderate persistent asthma, uncomplicated acute April 15 3:12pm [facility] Work Phone: 1(833) 637-296010-16-2024 Evaluation note* Diagnosis Onset Date Resolution Status [...] right lowe r extremity acute March 29, 024 8:45am Right thyroid nodule acute Dece mb2023 8:45am Cigarette nicotine dependenc e with nicotine-induced disorder acute J anuary 2024 3:12pm Encounter for screening for lung cancer acute April 15 3:12pm Moderate persistent asthma, uncomplicated acute April 15 3:12pm [facility] Work Phone: 1(419) 188-880410-05-2022 NoteOPERATIVE NOTE OPERATION DATE: 01/12/2022 PREOPERATIVE DIAGNOSIS: [...] of the polyp. CC: Cornelius Garrison M.D.[id number] NoteChief Complaint consultation for epigastric pain HPI [...] Chronic obstructive pulmonary dise (more content not included)...[facility]:Result Comment: Electronically Signed By: RAJINDER TAVERAS, Mihaela Trujillo\Date and Time Signed: 12/22/21 17:34 EDTEvaluation + Plan note No data available for this section General Surgery [employer] Evaluation note* Diagnosis Onset Date Resolution Status Lumbar radiculopathy, chronic acute [facility] Work Phone: Evaluation note* Diagnosis Onset Date Resolution Status Lumbar radiculopathy, chronic acute Headache acute Joint pain acute Tick bite acute [facility] Work Phone: Evaluation note* Diagnosis Onset Date Resolution Status Headache acute Joint pain acute Tick bite acute Chronic obstructive pulmonary disease, unspecified acute Lumbar radiculopathy, chronic acute [facility] Work Phone: evaluation note* Diagnosis Onset Date Resolution Status Chronic obstructive pulmonary disease, unspecified acute Lumbar radiculopathy, chronic acute Bilateral knee pain acute COPD exacerbation acute Lumbar pain acute Lumbar radiculopathy, chronic acute Bilateral knee pain acute Primary osteoarthritis of both knees [facility] Work Phone: Evaluation note* Diagnosis Onset Date Resolution Status Bilateral knee pain acute COPD exacerbation acute Lumbar pain acute Lumbar radiculopathy, chronic acute Bilateral knee pain acute Primary osteoarthritis of both knees acute Menopause acute [facility] Work Phone: Evaluation note* Diagnosis Lumbosacral radiculopathy- Primary Thoracic or lumbosacral neuritis or radiculitis, unspecified Numbness and tingling Disturbance of skin sensation [facility] No data available for this section General Surgery [place] Progress note No data available for this section General Surgery [place] Reason for visit Narrative* Other Medical (Routine) - Closed Specialty Diagnoses / Procedures Referred By Contac t Referred To Contact Neurology Diagnoses Neuralgia and neuritis, unspecified Procedures FL NEEDLE EMG EA EXTREMTY W/PARASPINL AREA COMPLETE FL NERVE CONDUCTION STUDIES 9-10 STUDIES Ofelia Arceo PA-C [address] [place] [address] Phone: tel: fax: Cecil Fields MD [address] [place] [address] Phone: tel: fax: Referral ID Status Reason Start Date Expiration Date V isits Requested Visits Authorized [id number] Closed Perform Procedure 03/27/2024 09/23/2024 1 1 [facility] Healthcare Summary Purpose Family History No [...] Back & Knee Pain-HIGH RISK March 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 April [...] Cornelius Garrison MD Primary Care Provide r, Other Provider Active Start: March 04, 2024 Reynaldo Tee MD Attending Provider Active Start: March 04, 2024 Team Status: Inactive Member Role Status Dates Cornelius Garrison MD Primary Care Provide r, Referring Provider Active Start: March 11, 2024 End: March 11, 2024 Scott Dennis , DO Attending Provider Active St art: March 11, 2024 End: March 11, 2024 Team Status: Active Member Role Status Dates Cornelius Garrison MD Primary Care Provider Active Start: March 21, 2024 Scott Dennis , DO Attending Provider [...] End: October 13, 2023 Brittanie Siu APRN SERVICE DESK LEADMeghanC Attending Provider Act onesimo Start: October 13, [...] Provider Active S tart: January 24, 2024 Composition Molder Relationship Specialty Start Date End Date Cornelius Garrison MD [address] [place] [address] PCP - General Family Medicine 03/27/24 Ofelia Arceo MD [address] [address] Referring Physician Internal Medicine 03/27/24 Composition Molder Relationship Specialty Start Date End Date Cornelius Garrison MD [address] [place] [address] PCP - General Family Medicine 03/27/24 Ofelia Arceo MD [address] [address] Referring Physician Internal Medicine 03/27/24 Team Status: Inactive Member Role Status Dates Cornelius Garrison MD Attending Provider Active St art: April 22, 2024 End: April 22, 2024 Team Status: Active Member Role Status Dates Cornelius Garrison MD Attending Provider Active St art: May 10, 2024 INFORMATION SOURCE (unrecogn ized section and content) DATE CREATED AUTHOR 02/21/2022 [facility] DATE CREATED AUTHOR AUTHOR'S ORGANIZ ATION 04/01/2022 [facility] DATE CREATED AUTHOR AUTHOR'S ORGANIZ ATION 04/03/2024 [facility] DATE CREATED AUTHOR AUTHOR'S ORGANIZ ATION 05/07/2024 [facility] DATE CREATED AUTHOR AUTHOR'S ORGANIZ ATION 05/12/2024 [facility] ysician [facility] Goals (unrecognized section and [...] BE BASED ON THE PRIMARY CLINICAL RECORDS. [facility]. provides no warranty or guarantee of the accuracy or completeness of information in this document.
[2024-05-13 07:02] VITALS: BP 153/93; PULSE 72; TEMP 36.8; O2SAT 98
[2024-05-13 07:34] VITALS: BP 183/96; PULSE 62; O2SAT 100
[2024-05-13 07:35] VITALS: BP 180/90; PULSE 60; O2SAT 99
[2024-05-13] MEDS: BUPIVACAINE HCL 0.25% PF 25 MG/10 ML VIAL 2 ML INJ (07:37)
[2024-05-13] MEDS: LIDOCAINE HCL 2% 400 MG/20 ML MDV INJ (07:38)
[2024-05-13] MEDS: IOHEXOL 240 MG/ML - 10 ML VIAL 12 MG INJ (07:38)
[2024-05-13] MEDS: METHYLPREDNISOLONE ACETATE 40 MG/ML VIAL INJ (07:38)
--- NOTE | 2024-05-13 07:38 | W.PM.PROCNOT ---
Date of procedure: 05/13/24 Pre-op diagnosis: Pain due to left sacroiliitis Post-op diagnosis: same as pre-op Procedure: Procedure: Left sacroiliac joint injection Medications: Bupivacaine 0.25% 3cc, depomedrol 40mg After informed consent was obtained, the patient was brought to the medical procedure unit and placed in the prone position, when a timeout was completed verifying correct patient, procedure, site, positioning, implant, and/or special equipment.? The skin overlying the area was prepped and draped in standard sterile fashion using alcohol.? A 25-gauge needle was inserted towards the left sacroiliac joint under direct fluoroscopic imaging.? Needle tip was advanced until the joint was encountered.? We instilled a total of 2 mL of solution.? Postoperatively needles were removed.? The patient tolerated the procedure well without complication.? The patient reported reduction in pain symptoms postoperatively. Anesthesia: Local Surgeon: Duong Oreilly Pathology: none sent Condition: stable Disposition: no change
== END 2024-05-13 07:41 | disposition home or self-care (01) ==
PROVIDERS: PCP Family Medicine; Visit Provider Anesthesiology
DX: M46.1 Sacroiliitis, not elsewhere classified (principal)
CPT/HCPCS: 27096; J0665; J1010; Q9966

== ENCOUNTER 2024-05-30 07:35 | Outpatient (OUT) | payer MEDICARE, OTHER, SELFPAY ==
--- OUTSIDE RECORDS SUMMARY | 2024-05-30 07:38 | XMS_ITS | CCD ---
Author Organization [facility] Care Team Providers Care Clinical Coordinator Name Role Phone CORNELIUS GARRISON Primary Care Physician [phone] BLADIMIR PROVIDERCORNELIUS Referring Unavailab le NILL, Mihaela Michelle Attending Unavailable NILL, Mihaela Michelle Attending Unavailable NILL, Mihaela Michelle Attending Unavailable NILL, Mihaela Michelle Attending Unavailable MISC, DR MIDDLETON Primary Care Unavailable REQUEST, DR REYES LISTED Attending Unavaila ble REQUEST, DR REYES LISTED Consulting Unavaila ble REQUEST, DR REYES LISTED Admitting Unavaila ble GARRISON, DR CORNELIUS aWrd Primary Care Unavailable NILL, DR CHAIREZ Admitting Unavailable NILL, DR CHAIREZ Attending Unavailable NILL, DR CHAIREZ Consulting Unavailable HANNA, RADHIKA Consulting Unavailable MORGOS, DARREL Consulting Unavailable NILL, DR CHAIREZ Admitting Unavailable MISC, DR MIDDLETON Primary Care Unavailable NILL, DR CHAIREZ Attending Unavailable NILL, DR CHAIREZ Consulting Unavailable MD Cornelius Garrison Primary Care Provider DO Alexandro Galvez Attending Provider Cornelius Garrison MD Primary Care Provider [phone] King NITIN, Ofelia Unavailable KANE PEREZ Attending Unavailable OFELIA ARCEO Referring Unavailable Cornelius Garrison MD Primary Care Provider Alexandro Galvez DO Attending Provider Cornelius Garrison MD Attending Provider [phone] Cornelius Garrison MD Primary Care Provider [phone] Cornelius Garrison Admitting Unavailable Cornelius Garrison Attending Unavailable Cornelius Garrison Admitting Unavailable Cornelius Garrison Attending Unavailable Cornelius Garrison Primary Care Unavailable Alexandro Galvez Attending Unavailable Alexandro Galvez Admitting Unavailable Cornelius Garrison Primary Care Unavailable Cornelius Garrison MD Primary Care Abhi Oreilly MD, Duong Wagoner Attending Unavailable Adis PA-C, Ofelia Grace Attending Unavailab Tuan TAVERAS, Cornelius [facility] Abhi Garrison MD, Cornelius Teresath Referring Unava ilable Adis PA-C, Ofelia Grace Attending Unavailab Tuan TAVERAS, Cornelius Crane Primary [facility] Unava ilable Adis PA-C, Ofelia Grace Attending Unavailab Tuan TAVERAS, [facility] Unava ilable Adis PA-C, Ofelia Grace Admitting Unavailab le Adis PA-C, Ofelia Grace Attending Unavailab Tuan TAVERAS, Cornelius [facility] Unava stephany Garrison MD, [facility] Unava ilable Adis PA-C, Ofelia Grace Attending Unavailab Tuan TAVERAS, [facility] Unava ilkrystal Oreilly MD, Duong Wagoner Attending Unavailable Bladimir TAVERAS, Cornelius [facility] Unava ilable Denilson TAVERAS, Duong Wagoner Attending Unavailable Allergies Allergy Classification Reported Allergen(s) Allergy Type Date of Onset Reaction(s) Facility (3 sources) Acetaminophen / oxyCODONE; Translations: [acetaminophen-oxy codone] Drug Allergy Nausea (finding) [facility] [place] (3 sources) Alendronate; Translations: [alendronate] Drug Allergy Muscle pain (finding) [facility] [place] (13 sources) Clarithromycin; Translations: [clarithromycin] Drug Allergy 07-31-19 Unknown (qualifier value) [facility] [place] (14 sources) levoFLOXacin; Translations: [levofloxacin] Drug Allergy 07-31-19 24 Eruption of skin (disorder) [facility] [place] (4 sources) Sulfonamides (Antibiotic); Translations: [sulfa drugs] Drug allergy Unknown (qualifier value) [facility] [place] (1 source) Acetaminophen / oxyCODONE Drug Allergy 03-25-20 16 [facility] (1 source) Alendronate Drug Allergy 03-18-20 16 [facility] (1 source) Clarithromycin Drug Allergy 03-25-20 16 [facility] (1 source) levoFLOXacin Drug Allergy 03-25-20 16 [facility] (1 source) Quinolones (Antibiotic) Drug allergy (disorder) 03-25-20 16 [facility] (1 source) Sulfonamides (Antibiotic) Drug allergy (disorder) 05-01-19 14 [facility] (1 source) Acetaminophen Drug Allergy 07-31-19 24 [facility] (10 sources) Alendronate Drug Allergy 07-31-19 [facility] (10 sources) oxyCODONE Drug Allergy 07-31-19 [facility] (10 sources) Sulfonamides (Antibiotic) Allergy to substance 07-31-19 Comment:as a young child, pt. cannot recall reaction [facility] (10 sources) Biaxin XL *MACROLIDES* Allergy to substance 07-28-19 [facility] (1 source) Ciprofloxacin; Translations: [Cipro] Drug Allergy [facility] (1 source) symbalta; Translations: [symbalta] Propensity to adverse reactions to drug (disorder) [facility] Medications Current Medications Medication Drug [...] hr Active 300 MG PO Daily 90 90 April 15, 2024 12:00am Start: 03-11-2024 [...] Rinse after use Start: 03-29-2024 End: 04-15-2024 Qnsjodjzmon-Nxlsuskcn-Jryqkm er (Trelegy Ellipta) 200-62.5-25 mcg blister with device Discontinued 1 INH INHALATION Daily 60 March 29, 2024 9:38am April 15, 2024 3:41pm Rinse after use Start: 03-11-2024 End: 03-29-2024 Ypytfmbotjf-Kvhlubcbm-Sllzgs er (Trelegy Ellipta) 200-62.5-25 mcg blister with [...] March 29, 2024 9:04am 60 actuat tiotropium 0.68261 mg/actuat inhalation spray (9 sources) Anticholinergic Start: 02-08-2024 End: 03-11-2024 take 1 puff(s) by inhalation once daily in the morning Tiotropium [place] (Spiriva Respimat) 1.25 mcg/actuation mist Discontinued 2 PUFF INHALATION Every morning March 08, 2024 9:50am March 11, 2024 3:50pm tiZANidine 4 mg oral tablet (20 sources) Central alpha-2 Adrenergic Agonist Start: 05-26-2023 End: 04-19-2024 take 1 tablet by mouth three times daily Tizanidine 4 mg tablet Discontinued 4 MG PO Three times daily May 26, 2023 12:10pm May 20th, 2024 2:10pm Start: 12-17-2021 take 1 tablet by margarito three times daily tiZANidine 4 mg Tab [...] 01-24-2024 Chronic Other aftercare (1 source) Other custodial (current) drug therapy; Translations: [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 04-22-2024 L -------- -------- Specimen: [id number] Received: 04/24/24 Status: OMAR Freddy Num: [id number] Spec Type: Cytology Subm Dr: Cornelius Garrison MD Tissues: A FNA SLIDES NOPATH (INF RT THY) Procedures: Cyto Int and Re, PAPSTN/5 -------- Age/ Patient Sex Location Account Attending Physician -------- Cristine Manley 64/F [place]E[facility] [id number] Cornelius Garrison MD -------- SPEC NUM: [id number] RECD: 04/24/24 STATUS: OMAR HAYES NUM: [id number] TORI: 04/22/24- SUBM DR: Cornelius Garrison MD ENTERED: 04/24/[address] [facility] [address]: Les Lee MD SPEC TYPE: Cytology DEPT: KEN NCYT ENTERED BY: [id number] RECV BY: [id number] ORDERED: Cyto Int and Re, PAPSTN/5 ORDERED: Cyto Int and Re, PAPSTN/5 Supplemental Report Addendum 1 Entered: 05/10/241132 Supplemental for findings of AFIRMA 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 V600E c. 1799T>A: Negative -RET/PTC1: Not detected -RET/PTC3: Not detected -MTC: Negative -Parathyroid: Negative TERT PROMOTER REGION: -Tests (2) not Performed (TNP) -------- Specimen: [id number] Received: 04/24/24 Status: OMAR Re Num: [id number] Spec Type: Cytology Subm Dr: Cornelius Garrison MD Tissues: A FNA SLIDES NOPATH (INF RT THY) Procedures: Cyto Int and Re, PAPSTN/5 -------- Patient: Cristine Manley [id number] (Continued) -------- Specimen: [id number] Received: 04/24/24 (Continued) Supplemental Report (Continued) Signed (signature on file) Gail Sheth MD 04/24/24 1439 -------- Specimen: [id number] Received: 04/24/24 Status: OMAR Freddy Num: [id number] Spec Type: Cytology Subm Dr: Cornelius Garrison MD Tissues: A FNA SLIDES NOPATH (INF RT THY) Procedures: Cyto Int and Re, PAPSTN/5 -------- Patient: Cristine Manley [id number] (Continued) -------- Specimen: [id number] Received: 04/24/24 (Continued) Supplemental Report (Continued) Addendum Signed (signature on file)Omkar Sheth MD 05/10/24 1132 -------- Pathological Diagnosis Right thyroid nodule, inferior, FNA cytology -Adequate follicular groups in the ThinPrep smear, appropriate for assessment, consisting of small to occasionally slightly larger and reactive follicular cells, suggesting dimorphic population and the category 3 [place] system, atypia of the undetermined significance, otherwise [...] vial stored at -20 for microscopic examination. (TX/nh) Microscopic Description Microscopic examinations are performed supporting the above interpretation CPT Codes 93260 -------- -------- Specimen: [id number] Received: 04/24/24 Status: OMAR Hayes Num: [id number] Spec Type: Cytology Subm Dr: Cornelius Garrison MD Tissues: A FNA SLIDES NOPATH (INF RT THY) Procedures: Cyto Int and Re, PAPSTN/5 -------- Patient: Cristine Manley [id number] (Continued) -------- Signed (signature on file) Chin-Diogenes Sheth MD 04/24/24 5909 Normal [facility] EMG 2 Extremitieson 04-01-20 EMG/NCS BLE Right L5/S1 radic [place] S1/2 radic [facility] NVC 9-10 Nerveson 04-01-2024 EMG/NCS BLE Right L5/S1 radic [place] S1/2 radic [facility] Provider Letteron 03-26-2024 Provider Letter (Inserted Image. Gela ble to display) Cornelius Garrison MD [address] [place] [address] Re: Cristine Leslieaver Date of Visit: 03/25/2024 Dear Cornelius Garrison MD, This patient was recently seen in the neurosurgical office. Please see attached note for further details. Let me know if you have any questions or concerns. Sincerely, DEMARCUS Gan Providers: The following document(s) were included in the letter: March 25, 2024 17:40:13 EST - (03/25/2024) Neurosurgery Office Visit Note Normal [facility] Neurosurgery Office/Clinic N oteon 03-25-2024 Neurosurgery Office/Clinic Note Chief Complaint CT thoracic, lumbar, XR lumbar, hips and neck review History of Present Illness The patient is a pleasant 64-year-old right-handed female with history of chronic nicotine use, asthma and recently diagnosed COPD for which she is planned to see a pocketed spring machine operator in the near future. She also has [...] though does not resolve. Oral narcotics including [place] which makes pain tolerable though does not [...] increases slightl (more content not included)... Normal [facility] Basophils Auto (Bld) [#/Vol] on 03-21-2024 Basophils (Bld) [#/Vol] Automated basophil count 0.0-0.1 [facility] Basophils/100 WBC Auto (Bld) on 03-21-2024 Basophils/100 WBC (Bld) Automated basophil % 0.2-2.0 [facility] Eosinophils/100 WBC Auto (Bl d)on 03-21-2024 Eosinophils/100 WBC (Bld) Automated eosinophil % 0.9-7.0 [facility] Erythrocyte distribution wid th Auto (RBC) [Ratio]on 03-21-2024 Erythrocyte distribution width (RBC) [Ratio] Erythrocyte distribution width [Ratio] by Automated count 11.0-15.0 [facility] Hematocrit Auto (Bld) [Volum e fraction]on 03-21-2024 Hematocrit (Bld) [Volume fraction] Hematocrit [Volume Fraction] of Blood by Automated count 36.0-48.0 [facility] Hemoglobin [Mass/volume] in Bloodon 03-21-2024 Hemoglobin (Bld) [Mass/Vol] Hemoglobin [Mass/volume] in Blood 12.0-16.0 [facility] IgE [Units/volume] in Serum or Plasmaon 03-21-2024 IgE Qn IgE [Units/volume] i n Serum or Plasma 6-495 [facility] Comment on above: Performed at: [address] [id number] Director: Levi Pedroza MD, Phone: [phone] Laboratory - Hematology and Cell countson 03-21-2024 Immature granulocytes/100 WBC (Bld) 0.1 % 0.0-0.5 [facility] Leukocytes [#/volume] correc shant for nucleated erythrocytes in Blood by Automated counon 03-21-2024 WBC corrected for nucl RBC Auto (Bld) [#/Vol] Leukocytes [#/volume] corrected for nucleated erythrocytes in Blood by Automated coun 4.0-11.0 [facility] Lymphocytes Auto (Bld) [#/Vo l]on 03-21-2024 Lymphocytes (Bld) [#/Vol] Lymphocytes [#/volume] in Blood by Automated count 1.2-3.8 [facility] Lymphocytes/100 WBC Auto (Bl d)on 03-21-2024 Lymphocytes/100 WBC (Bld) Lymphocytes/100 leukocytes in Blood by Automated count Low 20.5-60.0 [facility] MCH Auto (RBC) [Entitic mass ]on 03-21-2024 MCH (RBC) [Entitic mass] MCH [Entitic mass] by Automated count 26.7-34.0 [facility] MCHC Auto (RBC) [Mass/Vol]on 03-21-2024 MCHC (RBC) [Mass/Vol] MCHC [Mass/volume] by Automated count 29.9-35.2 [facility] MCV Auto (RBC) [Entitic vol] on 03-21-2024 MCV (RBC) [Entitic vol] MCV [Entitic volume] by Automated count 81.0-99.0 [facility] Monocytes Auto (Bld) [#/Vol] on 03-21-2024 Monocytes (Bld) [#/Vol] Automated blood monocyte count 0.3-0.8 [facility] Monocytes/100 WBC Auto (Bld) on 03-21-2024 Monocytes/100 WBC (Bld) Automated monocyte % 1.7-12.0 [facility] Neutrophils Auto (Bld) [#/Vo l]on 03-21-2024 Neutrophils (Bld) [#/Vol] Neutrophils [#/volume] in Blood by Automated count High 1.4-6.5 [facility] Neutrophils/100 WBC Auto (Bl d)on 03-21-2024 Neutrophils/100 WBC (Bld) Automated neutrophil % 43.0-75.0 [facility] No Panel Informationon 03-21 Eosinophils # (Auto) 0.1 10 3/uL 0.0-0.7 [facility] Immature Granulocyte # (Auto) 0.01 10 3/uL 0.00-0.03 [facility] Platelet mean volume Auto (B ld) [Entitic vol]on 03-21-2024 Platelet mean volume (Bld) [Entitic vol] Platelet mean volume [Entitic volume] in Blood by Automated count 9.5-13.5 [facility] Platelets Auto (Bld) [#/Vol] on 03-21-2024 Platelets (Bld) [#/Vol] Platelets [#/volume] in Blood by Automated count 150-450 [facility] RBC Auto (Bld) [#/Vol]on RBC (Bld) [#/Vol] Erythrocytes [#/volu me] in Blood by Automated count 4.20-5.40 [facility] Provider Letteron 02-29-2024 Provider Letter (Inserted Image. Gela ble to display) Cornelius Whittaker [address] [facility] [address], [place] [address] Re: Cristine Manley Date of Visit: 02/23/2024 Dear Cornelius Garrison MD, Please see attached results on this mutual patient you have with [facility] Result Name Current Result CT Spine Thoracic/Lumbar Myelogram w/Con 02/23/2024 Let me know if you have any questions or concerns. Sincerely, Jaclyn Bliss [facility] Clinical Lead Health Hammer Fitter C C Providers: Normal [facility] CT Spine Thoracic/Lumbar Mye logram w/Conon [...] Electronically Signed in Other Vendor System) Normal [facility] PTon 02-23-2024 INR Coag (PPP) [Relative time] 1.0 {INR} Normal <=3.5 [facility] Comment on above: Result Comment: INR has no normal range. INR Therapeutic range is: 2.0-3.0 (AF, CVA, TIAs, DVT prophylaxis, acute DVT) 2.5-3.5 ([facility] heart valves, recurrent thrombosis/emboli) Performed By: #### P TINR #### [address] [address] PT Coag (PPP) [Time] 10.3 s Normal 9.2-12.0 [facility] Comment on above: Performed By: #### P TINR #### [address] [address] PTTon 02-23-2024 aPTT Coag (Bld) [Time] 24.8 s Normal 19.5-28.2 [facility] Comment on above: Performed By: #### P TT #### [address] [address] Platelet Counton 02-23-2024 Platelet 300 x10*3/mcL Normal 150-450 [facility] Comment on above: Performed By: #### P LTS #### [address] [address] XR Hip 2-3 Views Lefton 02-08 XR [...] Electronically Signed in Other Vendor System) Normal [facility] XR Myelography Spine 2 or Mo [...] Electronically Signed in Other Vendor System) Normal [facility] XR Spine Cervical 4 or 5 [...] Electronically Signed in Other Vendor System) Normal [facility] XR Spine Lumbosacral Bending 2-3 Viewson [...] Electronically Signed in Other Vendor System) Normal [facility] Neurosurgery Office/Clinic N oteon 02-13-2024 Neurosurgery Office/Clinic Note Chief Complaint Back lumbar pain radiculopathy consult History of Present Illness The patient is a pleasant 64-year-old right-handed female with history of chronic nicotine use, asthma and recently diagnosed COPD for which she is planned to see a pocketed spring machine operator in the near future. She also has [...] though does not resolve. Oral narcotics including [place] which makes pain tolerable though does not [...] Newly diagnosed COPD, scheduled to see a pocketed spring machine operator in the near future Chronic nicotine use [...] marijuana use. 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 She denies any Worker's Comp. related claims regarding today's visit FAMILY HISTORY: Lung cancer: Father Diabetes mellitus: Mother Hypertension: Mother Review of Systems Constitutional: [No fevers, chills, sweats] Eye: [No recent visual problems] ENMT: [ (more content not included)... Normal [facility] Provider Letteron 02-13-2024 Provider Letter (Inserted Image. Gela ble to display) Cornelius Garrison MD [address], [place] [address] Re: Cristine Manley Date of Visit: 02/13/2024 Dear Cornelius Garrison MD, This patient was recently seen in the neurosurgical office. Please see attached note for further details. Let me know if you have any questions or concerns. Sincerely, DEMARCUS Gan Providers: The following document(s) were included in the letter: February 13, 2024 09:39:53 EST - (02/13/2024) Neurosurgery Office Visit Note Normal [facility] XR knee BI 3V - NOT FOR ER U [facility] 01-24-2024 XR knee BI 3V - NOT FOR ER USE [facility] [address] [place] [address] XRay Report Signed Patient: Cristine Manley MR#: [id number] 53 : 1960 Acct:[id number] Age/Sex: 64 / F ADM Date: 01/24/24 Loc: [facility] Room: Type: [facility] Attending Dr: Alexandro Galvez DO Copies [...] Sunday Graham M.D.01/24/2024 3:45 PM Dictation Location: [place] [address] Transcribed By: [facility] 01/24/24 6288 Dictated By: Sunday Graham II, MD 01/24/24 1542 Signed By: 01/24/24 1545 Normal [facility] Basophils Auto (Bld) [#/Vol] on 01-19-2024 Basophils (Bld) [#/Vol] 0.0 10 3/uL 0.0-0.1 [facility] Basophils (Bld) [#/Vol] Automated basophil count 0.0-0.1 [facility] Basophils/100 WBC Auto (Bld) on 01-19-2024 Basophils/100 WBC (Bld) 0.2 % 0.2-2.0 [facility] Basophils/100 WBC (Bld) Automated basophil % 0.2-2.0 [facility] Eosinophils/100 WBC Auto (Bl d)on 01-19-2024 Eosinophils/100 WBC (Bld) 4.3 % 0.9-7.0 [facility] Eosinophils/100 WBC (Bld) Automated eosinophil % 0.9-7.0 [facility] Erythrocyte distribution wid th Auto (RBC) [Ratio]on 01-19-2024 Erythrocyte distribution width (RBC) [Ratio] 13.1 % 11.0-15.0 [facility] Erythrocyte distribution width (RBC) [Ratio] Erythrocyte distribution width [Ratio] by Automated count 11.0-15.0 [facility] Estimated glomerular filtrat ion rate (GFR) non- Americanon 01-19-2024 GFR/1.73 sq M.predicted among non-blacks MDRD (S/P/Bld) [Vol rate/Area] mL/min/{1.73_m2} >=60 mL/min/1.73 m 2 [facility] GFR/1.73 sq M.predicted among non-blacks MDRD (S/P/Bld) [Vol rate/Area] Estimated glomerular filtration rate (GFR) non- >=60 mL/min/1.73 m 2 [facility] Fibrin D-dimer [Presence] in Platelet poor plasma by Latex agglutinationon 01-19-2024 Fibrin D-dimer LA Ql (PPP) 0.43 mg/L FEU <=0.59 [facility] Comment on above: Increases in D-Dimer concentration [...] Platelet poor plasma by Latex agglutination <=0.59 [facility] Comment on above: Increases in D-Dimer concentration [...] Hematocrit (Bld) [Volume fraction] 39.5 % 36.0-48.0 [facility] Hematocrit (Bld) [Volume fraction] Hematocrit [Volume Fraction] of Blood by Automated count 36.0-48.0 [facility] Hemoglobin [Mass/volume] in Bloodon 01-19-2024 Hemoglobin (Bld) [Mass/Vol] 12.8 g/dL 12.0-16.0 [facility] Hemoglobin (Bld) [Mass/Vol] Hemoglobin [Mass/volume] in Blood 12.0-16.0 [facility] Laboratory - Chemistry and C hemistry - challengeon 01-19-2024 Calcium [Mass/Vol] 9.0 mg/dL 8.5-10.1 [facility] Chloride [Moles/Vol] 105 mmol/L 98-107 [facility] CO2 [Moles/Vol] 28.7 mmol/L 21.0-32.0 [facility] Creatinine [Mass/Vol] 0.92 mg/dL 0.55-1.02 [facility] GFR/1.73 sq M.predicted MDRD (S/P/Bld) [Vol rate/Area] mL/min/{1.73_m2} >=60 mL/min/1.73 m 2 [facility] Glucose [Mass/Vol] 78 mg/dL 74-106 [facility] Potassium [Moles/Vol] 4.0 mmol/L 3.5-5.1 [facility] Sodium [Moles/Vol] 138 mmol/L 136-145 [facility] Urea nitrogen [Mass/Vol] 27.0 mg/dL High 7.0-18.0 [facility] Urea nitrogen/Creatinin e [Mass ratio] 29.3 mg/mg [facility] Laboratory - Hematology and Cell countson 01-19-2024 Immature granulocytes/100 WBC (Bld) 0.3 % 0.0-0.5 [facility] Laboratory - Microbiology an d Antimicrobial susceptibilityon 01-19-2024 SARS-CoV-2 (COVID-19) RNA JOSELUIS+probe Ql (Unsp spec) Negative NEGATIVE [facility] Comment on above: This test has not [...] (Bld) [#/Vol] 12.6 10 3/uL High 4.0-11.0 [facility] WBC corrected for nucl RBC Auto (Bld) [#/Vol] Leukocytes [#/volume] corrected for nucleated erythrocytes in Blood by Automated coun High 4.0-11.0 [facility] Lymphocytes Auto (Bld) [#/Vo l]on 01-19-2024 Lymphocytes (Bld) [#/Vol] 4.4 10 3/uL High 1.2-3.8 [facility] Lymphocytes (Bld) [#/Vol] Lymphocytes [#/volume] in Blood by Automated count High 1.2-3.8 [facility] Lymphocytes/100 WBC Auto (Bl d)on 01-19-2024 Lymphocytes/100 WBC (Bld) 35.0 % 20.5-60.0 [facility] [facility] Lymphocytes/100 WBC (Bld) Lymphocytes/100 leukocytes in Blood by Automated count 20.5-60.0 [facility] MCH Auto (RBC) [Entitic mass ]on 01-19-2024 MCH (RBC) [Entitic mass] 29.4 pg 26.7-34.0 [facility] MCH (RBC) [Entitic mass] MCH [Entitic mass] by Automated count 26.7-34.0 [facility] MCHC Auto (RBC) [Mass/Vol]on 01-19-2024 MCHC (RBC) [Mass/Vol] 32.4 g/dL 29.9-35.2 [facility] MCHC (RBC) [Mass/Vol] MCHC [Mass/volume] by Automated count 29.9-35.2 [facility] MCV Auto (RBC) [Entitic vol] on 01-19-2024 MCV (RBC) [Entitic vol] 90.6 fL 81.0-99.0 [facility] MCV (RBC) [Entitic vol] MCV [Entitic volume] by Automated count 81.0-99.0 [facility] Monocytes Auto (Bld) [#/Vol] on 01-19-2024 Monocytes (Bld) [#/Vol] 1.2 10 3/uL High 0.3-0.8 [facility] Monocytes (Bld) [#/Vol] Automated blood monocyte count High 0.3-0.8 [facility] Monocytes/100 WBC Auto (Bld) on 10-11-2024 Monocytes/100 WBC (Bld) 9.5 % 1.7-12.0 [facility] Monocytes/100 WBC (Bld) Automated monocyte % 1.7-12.0 [facility] Neutrophils Auto (Bld) [#/Vo l]on 01-19-2024 Neutrophils (Bld) [#/Vol] 6.4 10 3/uL 1.4-6.5 [facility] Neutrophils (Bld) [#/Vol] Neutrophils [#/volume] in Blood by Automated count 1.4-6.5 [facility] Neutrophils/100 WBC Auto (Bl d)on 01-19-2024 Neutrophils/100 WBC (Bld) 50.7 % 43.0-75.0 [facility] Neutrophils/100 WBC (Bld) Automated neutrophil % 43.0-75.0 [facility] No Panel Informationon 01-18 Bedside Influenza Type A Antigen Negative [facility] Comment on above: Negative for Flu A p rotein antigen. Infection due to Flu Acannot be ruled out. Flu A antigen in the sample may bebelow the detection limit of the test. Bedside Influenza Type B Antigen Negative [facility] Comment on above: Negative for Flu B p rotein antigen. Infection due to Flu Bcannot be ruled out. Flu B antigen in the sample may bebelow the detection limit of the test. Eosinophils # (Auto) 0.5 10 3/uL 0.0-0.7 [facility] Immature Granulocyte # (Auto) 0.04 10 3/uL High 0.00-0.03 [facility] Troponin I High Sensitivity 5.8 pg/mL 4.0-51.3 [facility] Comment on above: CUT-OFF POINTS HAVE BEEN [...] mean volume Auto (B ld) [Entitic vol]on 10-11-2024 Platelet mean volume (Bld) [Entitic vol] 9.3 fL Low 9.5-13.5 [facility] Platelet mean volume (Bld) [Entitic vol] Platelet mean volume [Entitic volume] in Blood by Automated count Low 9.5-13.5 [facility] Platelets Auto (Bld) [#/Vol] on 01-19-2024 Platelets (Bld) [#/Vol] 304 10 3/uL 150-450 [facility] Platelets (Bld) [#/Vol] Platelets [#/volume] in Blood by Automated count 150-450 [facility] RBC Auto (Bld) [#/Vol]on RBC (Bld) [#/Vol] 4.36 10 6/uL 4.20-5.40 [facility] RBC (Bld) [#/Vol] Erythrocytes [#/volu me] in Blood by Automated count 4.20-5.40 [facility] Serum or plasma anion gap de terminationon 01-19-2024 Anion gap [Moles/Vol] 8.3 mmol/L [facility] Anion gap [Moles/Vol] Serum or plasma anion gap determination [facility] Borrelia burgdorferi IgG+IgM Ab [Presence] in Serum by Immunoassayon 10-13-2023 B. burgdorferi IgG+IgM IA Ql (S) Negative Negative [facility] Comment on above: Lyme antibodies not detected. Reflex testing is notindicated.No laboratory evidence of infection with B. burgdorferi(Lyme disease). Negative results may occur in patientsrecently infected (less than or equal to 14 days) with B.burgdorferi. If recent infection is suspected, repeattesting on a new sample collected in 7 to 14 days isrecommended.Performed at: - [facility] [id number] Director: Jeovany Bazan PhD, Phone: [phone] General Surgery Office/Clini c Noteon 02-21-2022 General [...] Primary malignant neoplasm of lung: Father. Normal [facility] Comment on above: Result Comment: Elec tronically Signed By: RAJINDER TAVERAS, Mihaela Michelle\joe\Date and Time Signed: 02/21/22 16:42 EST Ambulatory Visit Summaryon 1 Ambulatory Visit Summary CRISTINE MANLEY Yovanny :1960 Visit Date:02/01/2022 Ambulatory Visit Instructions Your [...] Tobacco user Very low density lipoprotinemia Normal [facility] Reminderson 02-01-2022 Reminders - From: Sushma Shell LPN To: [facility] - Clinical; Sent: 02/01/2022 16:18:52 EDT Show up: 04/12/2022 07:00:00 EST Subject: EGD recall Due Date/Time: 05/04/2022 07:00:00 EST Reminder/Recall Patient is due to repeat EGD 05/04/2022 due to gastric ulcer. Normal [facility] Outside Colonoscopyon 2021 Outside Colonoscopy [id number]:127 Normal [facility] Pathology Noteon 01-14-2022 Pathology Note [id number]#[id number]:127 [facility] Reminderson 01-14-2022 Reminders - From: Sushma Shell LPN To: [facility] - Clinical; Sent: 01/14/2022 08:07:35 EDT Show up: 12/14/2031 07:00:00 EDT Subject: colonoscopy recall Due Date/Time: 01/13/2032 07:00:00 EDT Reminder/Recall Patient is due for screening colonoscopy 01/13/2032. Normal [facility] Pre-Certification Formon Pre-Certification Form [id number]:127 [facility] Lab Reportson 01-11-2022 Lab Reports [id number]#[id number]:127 [facility]on SARS-CoV-2 (COVID-19) RNA JOSELUIS+probe Ql (Unsp spec) Not detected Normal NOT DETECTED [facility] Comment on above: Result Comment: This test is not yet approved or cleared by the [place] FDA. When there are no FDA-approved or cleared tests available, and other criteria are met, FDA can make tests available under an emergency access mechanism called an Emergency Use Authorization (EUA). The EUA for this test is supported by the [place] of Health and Human Service's (HHS's) declaration [...] consistent with SARS-CoV-2. Performed By: #### [facility] #### [facility] [address] [place] [address] Dr. Pablo Sheth Physician Orderon 12-23-2021 Physician Order [id number]:127 Normal [facility] Ambulatory Visit Summaryon 0 12-22-2021 Ambulatory Visit Summary EVELYNE MANLEYMAUREEN Hairston :1960 Visit Date:12/22/2021 Ambulatory Visit Instructions Your Care Team Attending Physician - RAJINDER TAVERAS, Mihaela Michelle Primary Care Physician - BLADIMIR TAVERAS, CORNELIUS This Is Your Medications List Contact prescribing [...] Tobacco user Very low density lipoprotinemia Normal [facility] CBC AUTO DIFFon 12-17-2021 BASO # 0.1 103/ul Normal 0.0-0.1 [facility] Comment on above: Performed By: #### D ATCBC #### [facility] [address] [address] [address] Pablo Sheth Basophils/100 WBC (Bld) 0.4 % Normal 0.2-2.0 [facility] Comment on above: Performed By: #### D ATCBC #### [facility] [address] [address] [address] Pablo Sheth EO # 0.3 103/ul Normal 0.0-0.7 [facility] Comment on above: Performed By: #### D ATCBC #### [facility] [address] [place] [address] Dr. Pablo Sheth Eosinophils/100 WBC (Bld) 2.4 % Normal 0.9-7.0 [facility] Comment on above: Performed By: #### D ATCBC #### [facility] [address] [place] [address] Dr. Pablo Sheth Erythrocyte distribution width (RBC) [Ratio] 13.2 % Normal 11.0-15.0 [facility] Comment on above: Performed By: #### D ATCBC #### [facility] [address] [place] [address] Dr. Pablo Sheth Hematocrit (Bld) [Volume fraction] 42.6 % Normal 36.0-48.0 [facility] Comment on above: Performed By: #### D ATCBC #### [facility] [address] [place] [address] Dr. Pablo Sheth Hemoglobin (Bld) [Mass/Vol] 13.7 g/dL Normal 12.0-16.0 [facility] Comment on above: Performed By: #### D ATCBC #### [facility] [address] [place] [address] Dr. Pablo Sheth IG # 0.05 10e3/ul Critically high 0.00-0.03 [facility] Comment on above: Performed By: #### D ATCBC #### [facility] [address] [place] [address] Dr. Pablo Sheth IG % 0.4 % Normal 0.0-0.5 [facility] Comment on above: Performed By: #### D ATCBC #### [facility] [address] [place] [address] Dr. Pablo Sheth LYMPH # 2.8 103/ul Normal 1.2-3.8 [facility] Comment on above: Performed By: #### D ATCBC #### [facility] [address] [place] [address] Dr. Pablo Sheth Lymphocytes/100 WBC (Bld) 20.9 % Normal 20.5-60.0 [facility] Comment on above: Performed By: #### D ATCBC #### [facility] [address] [place] [address] Dr. Pablo Sheth MCH (RBC) [Entitic mass] 29.2 pg Normal 26.7-34.0 [facility] Comment on above: Performed By: #### D ATCBC #### [facility] [address] [place] [address] Dr. Pablo Sheth MCHC (RBC) [Mass/Vol] 32.2 g/dL Normal 29.9-35.2 [facility] Comment on above: Performed By: #### D ATCBC #### [facility] [address] [place] [address] Dr. Pablo Sheth MCV (RBC) [Entitic vol] 90.8 fL Normal 81.0-99.0 [facility] Comment on above: Performed By: #### D ATCBC #### [facility] [address] [place] [address] Dr. Pablo Sheth MONO # 1.0 103/ul Critically high 0.3-0.8 [facility] Comment on above: Performed By: #### D ATCBC #### [facility] [address] [place] [address] Dr. Pablo Sheth Monocytes/100 WBC (Bld) 7.5 % Normal 1.7-12.0 [facility] Comment on above: Performed By: #### D ATCBC #### [facility] [address] [place] [address] Dr. Pablo Sheth NEUT # 9.2 103/ul Critically high 1.4-6.5 [facility] Comment on above: Performed By: #### D ATCBC #### [facility] [address] [place] [address] Dr. Pablo Sheth Neutrophils/100 WBC (Bld) 68.4 % Normal 43.0-75.0 [facility] Comment on above: Performed By: #### D ATCBC #### [facility] [address] [place] [address] Dr. Pablo Sheth Platelet mean volume (Bld) [Entitic vol] 9.3 fL Critically low 9.5-13.5 [facility] Comment on above: Performed By: #### D ATCBC #### [facility] [address] [place] [address] Dr. Pablo Sheth PLT 313 103/ul Normal 150-450 [facility] Comment on above: Performed By: #### D ATCBC #### [facility] [address] [place] [address] Dr. Pablo Sheth RBC 4.69 106/ul Normal 4.20-5.40 [facility] Comment on above: Performed By: #### D ATCBC #### [facility] [address] [place] [address] Dr. Pablo Sheth WBC 13.4 103/ul Critically high 4.0-11.0 [facility] Comment on above: Performed By: #### D ATCBC #### [facility] [address] [place] [address] Dr. Pablo Sheth BERKLEY - TSHon 12-17-2021 TSH 1.241 uIU/mL Normal 0.358-3.740 [facility] Comment on above: Performed By: #### D BERKLEY LUXBMP #### [facility] [address] [place] [address] Dr. Pablo Sheth TSH RANGE SEE BELOW Normal [facility] Comment on above: Result Comment: <0.3 4 UIU/ml HYPERTHYROID 0.34-5.60 UIU/ml EUTHYROID >5.60 UIU/ml HYPOTHYROID Performed By: #### D BERKLEY LUXBMP #### [facility] [address] [place] [address] Dr. Pablo Sheth BERKLEY- BMP WITH LIPIDon 2021 Anion gap [Moles/Vol] 11.9 mmol/L Normal [facility] Comment on above: Performed By: #### D ATTSH, DATBMP #### [facility] [address] [address] [address] Pablo Sheth Calcium [Mass/Vol] 9.1 mg/dL Normal 8.5-10.1 [facility] Comment on above: Performed By: #### D ATTSH, DATBMP #### [facility] [address] [address] [address] Pablo Sheth Chloride [Moles/Vol] 104 mmol/L Normal 98-107 [facility] Comment on above: Performed By: #### D ATTSH, DATBMP #### [facility] [address] [address] [address] Pablo Sheth Cholesterol [Mass/Vol] 207 mg/dL Critically high <=200 [facility] Comment on above: Performed By: #### D ATTSH, DATBMP #### [facility] [address] [place] [address] Dr. Pablo Sheth Cholesterol in HDL [Mass/Vol] 52 mg/dL Normal 40-60 [facility] Comment on above: Performed By: #### D ATTSH, DATBMP #### [facility] [address] [place] [address] Dr. Pablo Sheth Cholesterol in LDL [Mass/Vol] 141.4 mg/dL Normal [facility] Comment on above: Performed By: #### D ATTSH, DATBMP #### [facility] [address] [place] [address] Dr. Pablo Sheth CO2 [Moles/Vol] 29.3 mmol/L Normal 21.0-32.0 [facility] Comment on above: Performed By: #### D ATTSH, DATBMP #### [facility] [address] [place] [address] Dr. Pablo Sheth Creatinine [Mass/Vol] 0.77 mg/dL Normal 0.55-1.02 [facility] Comment on above: Performed By: #### D ATTSH, DATBMP #### [facility] [address] [place] [address] Dr. Pablo Sheth EGFR-AF FILIPINO >60 Normal >=60 [facility] Comment on above: Performed By: #### D ATTSH, DATBMP #### [facility] [address] [address] [address] Pablo Sheth EGFR-NON AF FILIPINO >60 Normal >=60 [facility] Comment on above: Performed By: #### D ATTSH, DATBMP #### [facility] [address] [address] [address] Pablo Sheth Glucose [Mass/Vol] 109 mg/dL Critically high 74-106 T [facility] Comment on above: Performed By: #### D ATTSH, DATBMP #### [facility] [address] [address] [address] Pablo Sheth HDL NORMAL > or = 60 mg/dl - LO W CARDIOVASCULAR RISK <40 mg/dl - HIGH CARDIOVASCULAR RISK Normal [facility] Comment on above: Performed By: #### D ATTSH, DATBMP #### [facility] [address] [address] [address] Pablo Sheth LDL CALC NORMAL SEE BELOW Normal [facility] Comment on above: Result Comment: <100 mg/dl OPTIMAL 100 - 129 mg/dl NEAR OR ABOVE OPTIMAL 130 - 159 mg/dl BORDERLINE HIGH 160 - 189 mg/dl HIGH >190 mg/dl VERY HIGH Performed By: #### D ATTSH, DATBMP #### [facility] [address] [address] [address] Pablo Sheth Potassium [Moles/Vol] 4.2 mmol/L Normal 3.5-5.1 [facility] Comment on above: Performed By: #### D ATTSH, DATBMP #### [facility] [address] [address] [address] Pablo Sheth Sodium [Moles/Vol] 141 mmol/L Normal 136-145 [facility] Comment on above: Performed By: #### D ATTSH, DATBMP #### [facility] [address] [address] [address] Pablo Sheth Triglyceride [Mass/Vol] 68 mg/dL Normal <=150 [facility] Comment on above: Performed By: #### D ATTSH, DATBMP #### [facility] [address] [address] [address] Pablo Sheth Urea nitrogen [Mass/Vol] 26.0 mg/dL Critically high 7.0-18.0 [facility] Comment on above: Performed By: #### D ATTSH, DATBMP #### [facility] [address] [address] [address] Pablo Sheth Urea nitrogen/Creatinin e [Mass ratio] 33.8 mg/mg Normal [facility] Comment on above: Performed By: #### D ATTSH, DATBMP #### [facility] [address] [address] [address] Pablo Sheth VLDL CALC 13.6 mg/dL Normal [facility] Comment on above: Performed By: #### D ATTSH, DATBMP #### [facility] [address] [address] [address] Pablo Sheth Physician Referralon 022 Physician Referral [id number]:127 Normal [facility] Vital Signs Date Time Vital Sign Value Performing Clinician Eldoni lity 04-15-2024 15:14-0500 Body height 170.18 cm Cornelius Garrison MD Work Phone: [facility] 04-15-2024 15:14-0500 Body mass index (BMI) [Ratio] 27.7 kg/m2 Cornelius Garrison MD Work Phone: [facility] 04-15-2024 15:14-0500 Body temperature 98.4 [degF] Cornelius Garrison MD Work Phone: [facility] 04-15-2024 15:14-0500 Body weight 80.28 kg Cornelius Garrison MD Work Phone: [facility] 04-15-2024 15:14-0500 Diastolic blood pressure 82 mm[Hg] Cornelius Garrison MD Work Phone: [facility] 04-15-2024 15:14-0500 Heart rate 83 /min Cornelius Garrison MD Work Phone: [facility] 04-15-2024 15:14-0500 Respiratory rate 20 /min Cornelius Garrison MD Work Phone: [facility] 04-15-2024 15:14-0500 SaO2% (BldA) [Mass fraction] 96 % Cornelius Garrison MD Work Phone: [facility] 04-15-2024 15:14-0500 Systolic blood pressure 128 mm[Hg] Cornelius Garrison MD Work Phone: [facility] 03-29-2024 08:56-0500 Body height 170.18 cm Cornelius Garrison MD Work Phone: [facility] 03-29-2024 08:56-0500 Body mass index (BMI) [Ratio] 27.2 kg/m2 Cornelius Garrison MD Work Phone: [facility] 03-29-2024 08:56-0500 Body weight 78.92 kg Cornelius Garrison MD Work Phone: [facility] 03-29-2024 08:56-0500 Diastolic blood pressure 86 mm[Hg] Cornelius Garrison MD Work Phone: [facility] 03-29-2024 08:56-0500 Heart rate 91 /min Cornelius Garrison MD Work Phone: [facility] 03-29-2024 08:56-0500 SaO2% (BldA) [Mass fraction] 95 % Cornelius Garrison MD Work Phone: [facility] 03-29-2024 08:56-0500 Systolic blood pressure 124 mm[Hg] Cornelius Garrison MD Work Phone: [facility] 03-11-2024 15:29-0500 Body height 170.18 cm Cornelius Garrison MD Work Phone: [facility] 03-11-2024 15:29-0500 Body mass index (BMI) [Ratio] 27.8 kg/m2 Cornelius Garrison MD Work Phone: [facility] 03-11-2024 15:29-0500 Body temperature 97.6 [degF] Cornelius Garrison MD Work Phone: [facility] 03-11-2024 15:29-0500 Body weight 80.73 kg Cornelius Garrison MD Work Phone: [facility] 03-11-2024 15:29-0500 Diastolic blood pressure 80 mm[Hg] Cornelius Garrison MD Work Phone: [facility] 03-11-2024 15:29-0500 Heart rate 82 /min Cornelius Garrison MD Work Phone: [facility] 03-11-2024 15:29-0500 Respiratory rate 20 /min Cornelius Garrison MD Work Phone: [facility] 03-11-2024 15:29-0500 SaO2% (BldA) [Mass fraction] 98 % Cornelius Garrison MD Work Phone: [facility] 03-11-2024 15:29-0500 Systolic blood pressure 134 mm[Hg] Cornelius Garrison MD Work Phone: [facility] 02-08-2024 13:55-0400 Body height 170.18 cm MD Cornelius Garrison Work Phone: [facility] 02-08-2024 13:55-0400 Body mass index (BMI) [Ratio] 27.9 kg/m2 MD Cornelius Garrison Work Phone: [facility] 02-08-2024 13:55-0400 Body weight 80.9 kg MD Cornelius Garrison Work Phone: [facility] 02-08-2024 13:55-0400 Diastolic blood pressure 78 mm[Hg] MD Cornelius Garrison Work Phone: [facility] 02-08-2024 13:55-0400 Heart rate 74 /min MD Cornelius Garrison Work Phone: [facility] 02-08-2024 13:55-0400 SaO2% (BldA) [Mass fraction] 96 % MD Cornelius Garrison Work Phone: [facility] 02-08-2024 13:55-0400 Systolic blood pressure 110 mm[Hg] MD Cornelius Garrison Work Phone: [facility] 01-24-2024 14:35-0400 Body height 170.18 cm MD Cornelius Garrison Work Phone: [facility] 01-24-2024 14:35-0400 Body mass index (BMI) [Ratio] 28.3 kg/m2 MD Cornelius Garrison Work Phone: [facility] 01-24-2024 14:35-0400 Body weight 82.21 kg MD Cornelius Garrison Work Phone: [facility] 01-09-2024 15:17-0400 Body height 167.[address] [facility] 01-09-2024 15:17-0400 Body mass index (BMI) [Ratio] 28.2 kg/m2 [facility] 01-09-2024 15:17-0400 Body weight 79.[address] [facility] 01-09-2024 15:17-0400 Diastolic blood pressure 91 mm[Hg] [facility] 01-09-2024 15:17-0400 Heart rate 76 /min [facility] 01-09-2024 15:17-0400 SaO2% (BldA) [Mass fraction] 97 % [facility] 01-09-2024 15:17-0400 Systolic blood pressure 135 mm[Hg] [facility] 11-01-2023 08:57-0400 Body height 167.[address] [facility] 11-01-2023 08:57-0400 Body mass index (BMI) [Ratio] 28.2 kg/m2 [facility] 11-01-2023 08:57-0400 Body weight 79.[address] [facility] 11-01-2023 08:57-0400 Diastolic blood pressure 90 mm[Hg] [facility] 11-01-2023 08:57-0400 Heart rate 63 /min [facility] 11-01-2023 08:57-0400 Systolic blood pressure 136 mm[Hg] [facility] 10-13-2023 09:19-0400 Body height 167.[address] [facility] 10-13-2023 09:19-0400 Body mass index (BMI) [Ratio] 28 kg/m2 [facility] 10-13-2023 09:19-0400 Body weight 78.[address] [facility] 10-13-2023 09:19-0400 Diastolic blood pressure 76 mm[Hg] [facility] 10-13-2023 09:19-0400 Heart rate 78 /min [facility] 10-13-2023 09:19-0400 SaO2% (BldA) [Mass fraction] 98 % [facility] 10-13-2023 09:19-0400 Systolic blood pressure 118 mm[Hg] [facility] 07-31-2023 10:09-0400 Body height 167.[address] [facility] 07-31-2023 10:09-0400 Body mass index (BMI) [Ratio] 28.8 kg/m2 [facility] 07-31-2023 10:09-0400 Body weight 80.[address] [facility] 07-31-2023 10:09-0400 Diastolic blood pressure 89 mm[Hg] [facility] 07-31-2023 10:09-0400 Heart rate 74 /min [facility] 07-31-2023 10:09-0400 Systolic blood pressure 138 mm[Hg] [facility] 12-22-2021 14:20-0400 Blood Pressure Location Mihaela CASAS [facility] [place] 12-22-2021 14:20-0400 Diastolic blood pressure 80 mm[Hg] Mihaela CASAS [facility] [place] 12-22-2021 14:20-0400 Heart rate 72 /min Mihaela CASAS [facility] [place] 09-14-2022 14:20-0400 Respiratory rate 16 /min Mihaela CASAS [facility] [place] 12-22-2021 14:20-0400 Systolic blood pressure 116 mm[Hg] Mihaela CASAS [facility] [place] Encounters Encounter Date Encounter Type Care Provider Facility Start: 05-13-2024 End: 05-13-2024 ambulatory Cornelius Garrison MD Facility:[facility] Start: 05-10-2024 ambulatory Cornelius Garrison MD Work Phone: [facility] Work Phone: Start: 05-10-2024 Non-patient / Non-visit Cornelius Garrison MD Work Phone: [facility] Work Phone: Start: 04-29-2024 End: 04-29-2024 ambulatory Cornelius Garrison MD Facility:[facility] Start: 04-22-2024 End: 04-22-2024 ambulatory Cornelius Garrison MD Work Phone: [facility] Work Phone: Start: 04-22-2024 End: 04-22-2024 Departed Referred Cornelius Garrison MD Work Phone: [facility] [place] [facility] Start: 04-22-2024 End: 04-22-2024 ambulatory Cornelius Garrison MD Facility:[facility] Start: 04-15-2024 End: 04-15-2024 ambulatory Cornelius Garrison MD Work Phone: [facility] Work Phone: Start: 04-15-2024 End: 04-15-2024 Patient encounter procedure Cornelius Garrison MD Work Phone: [facility] Work Phone: Start: 04-01-2024 End: [...] encounter procedure Cornelius Garrison MD Work Phone: [facility] Work Phone: Start: 03-25-2024 End: 03-25-2024 [facility] Facility[facility] Start: 03-21-2024 Non-patient / Non-visit Cornelius Garrison MD Work Phone: [facility] Work Phone: Start: 03-11-2024 End: 03-11-2024 Patient encounter procedure Cornelius Garrison MD Work Phone: [facility] Work Phone: Start: 03-04-2024 Non-patient / Non-visit Cornelius Garrison MD Work Phone: [facility] Work Phone: Start: 03-04-2024 End: 03-04-2024 Patient encounter procedure Cornelius Garrison MD Work Phone: [facility] Work Phone: Start: 03-04-2024 End: 03-04-2024 ambulatory Cornelius Garrison Facility:[facility] Start: 02-23-2024 End: 02-23-2024 ambulatory [facility] Facility:[facility] Start: 02-19-2024 End: 02-19-2024 ambulatory Cornelius Garrison MD Facility:[facility] Start: 02-13-2024 End: 02-13-2024 ambulatory Cornelius Garrison MD Facility:[facility] Start: 02-08-2024 End: 02-08-2024 ambulatory MD Cornelius Garrison Work Phone: [facility] Work Phone: Start: 02-08-2024 End: 02-08-2024 Patient encounter procedure MD Cornelius Garrison Work Phone: [facility] Work Phone: Start: 02-07-2024 Non-patient / Non-visit MD Mala Garrison Work Phone: [facility] Work Phone: Start: 02-01-2024 Non-patient / Non-visit Cornelius Garrison MD Work Phone: [facility] Work Phone: Start: 01-24-2024 End: 01-24-2024 ambulatory MD Cornelius Garrison Work Phone: [facility] Work Phone: Start: 01-24-2024 End: 01-24-2024 Patient encounter procedure MD Cornelius Garrison Work Phone: [facility] Work Phone: Start: 01-24-2024 End: 01-24-2024 Patient encounter procedure MD Cornelius Garrison Work Phone: [facility] Start: 01-24-2024 End: 01-24-2024 ambulatory MD Cornelius Garrison Work Phone: [facility] Work Phone: Start: 01-19-2024 Non-patient / Non-visit MD Mala Garrison Work Phone: [facility] Work Phone: Start: 01-19-2024 Non-patient / Non-visit MD Mala Garrison Work Phone: [facility] Work Phone: Start: 01-09-2024 End: 01-09-2024 ambulatory [facility] Work Phone: Start: 01-09-2024 End: 01-09-2024 Patient encounter procedure [facility] [place] Work Phone: Start: 11-01-2023 End: 11-01-2023 ambulatory [facility] Work Phone: Start: 11-01-2023 End: 11-01-2023 Patient encounter procedure [facility] Work Phone: Start: 10-13-2023 End: 10-13-2023 ambulatory [facility] Work Phone: Start: 10-13-2023 End: 10-13-2023 Patient encounter procedure [facility] Work Phone: Start: 07-31-2023 End: 07-31-2023 ambulatory [facility] Work Phone: Start: 07-31-2023 End: 07-31-2023 Patient encounter procedure [facility] Work Phone: Start: 05-26-2023 Non-patient / Non-visit [facility] Work Phone: Start: 02-01-2022 End: 02-02-2022 ambulatory Mihaela CASAS Facility:[facility] Start: 02-01-2022 End: 02-01-2022 Patient encounter procedure Mihaela CASAS [facility] [place] Start: 01-13-2022 Encounter for preprocedural laboratory examination DR MIHAELA CASAS [facility] Start: 01-12-2022 End: 01-13-2022 ambulatory Mihaela CASAS Facility:CD:[id number] Start: 01-10-2022 End: 01-11-[address] MIHAELA CASAS Facility:[facility] Start: 01-10-2022 End: 01-11-2022 Encounter for preprocedural laboratory examination DR MIHAELA CASAS Facility: Start: 12-22-2021 End: 12-23-2021 ambulatory Mihaela CASAS Facility:[facility] Start: 12-22-2021 End: 12-22-2021 Patient encounter procedure Mihaela CASAS [facility] [place] [place] Start: 12-17-2021 End: 12-18-2021 ambulatory CORNELIUS GARRISON PROVIDER Facility:[facility] Procedures Date Procedure Procedure Detail Performing [...] Treatment Date Care Activity Detail Author Start: 06-06-2024 ambulatory Ambulatory Facility[facility] Start: 05-10-2024 Patient referral [facility] Work Phone: Start: 04-05-2024 Patient referral [facility] Work Phone: Start: 04-01-2024 End: 04-01-2024 Patient encounter procedure 04/01/2024 3:00 PM EST Procedure Visit [facility] [address] [place] [id number] Kane Perez, [address] [place] [address] Arrived [facility] Comment on above: Arrived Start: 01-24-2024 X-ray of both knees, three views XR knee BI 3V - NOT FOR ER USE [facility] Start: 01-24-2024 XR Knee - bilateral 3 Views [facility] Start: 01-10-2024 Patient referral [facility] Work Phone: CT Unspecified body region [facility] CT Unspecified body region [facility] DXA Skeletal system.axial Views for bone density [facility] Patient Education Low back pain in adults [facility] Work Phone: Patient referral [facility] Work Phone: [place] Lower extremity v ein - right [facility] [place] Thyroid gland [facility] Immunizations Immunization Date Immunization Notes Care Provider Fa cility 03-11-2024 diphtheria, tetanus toxoids and acellular pertussis vaccine, unspecified formulation Cornelius Garrison MD Work Phone: [facility] 03-29-2021 COVID-19 mRNA, Comirnaty (Pfizer) [facility] 08-11-2020 COVID-19 mRNA, Comirnaty (Pfizer) [facility] 07-21-2020 COVID-19 mRNA, Comirnaty (Pfizer) [facility] 10-07-2018 diphtheria, tetanus toxoids and acellular pertussis vaccine, unspecified formulation [facility] 02-05-2014 tetanus and diphther ia toxoids, adsorbed, preservative free, for adult use (5 Lf of tetanus toxoid and 2 Lf of diphtheria toxoid) [facility] Payers Date Payer Category Payer Medicare [id number] 2024 Medicare [id number] 2023 Unknown 2021 Unknown [id number] 1960 Self-pay [id number] 1960 Unknown [id number] [id number] 1959 Unknown [id number] [id number] 1959 Unknown [id number] 2.16.840.1.868711.3.579.2.727 1959 Unknown [id number] 2.16.840.1.046270.3.579.2.727 1959 Unknown [id number] 2.16.840.1.920617.3.579.2.593 1959 Unknown [id number] 2.16.840.1.991238.3.579.2.593 1959 Unknown [id number] 2.16.840.1.930036.3.579.2.1259 1959 Unknown [id number] 2.16.840.1.526718.3.579.2.196 1959 Unknown [id number] 2.16.840.1.208342.3.579.2.196 1959 Unknown [id number] 2.16.840.1.983641.3.579.2.196 1959 Unknown [id number] 2.16.840.1.253821.3.579.2.196 1959 Unknown [id number] 2.16.840.1.639074.3.579.2.196 1959 Unknown [id number] 2.16.840.1.557013.3.579.2.196 1959 Unknown [id number] 2.16.840.1.852175.3.579.2.196 1959 Unknown [id number] 2.16.840.1.558308.3.579.2.196 Private Health Insurance [employer] [facility] G [id number] Unknown [id number] Unknown [id number] [id number] Unknown MMO [employer] [id number] Unknown Regular Insurance [id number] Social History Date Type Detail Facility Start: 12-22-2021 Heavy tobacco smoker (finding) [facility] [place] Never [facility] [place] Female [facility] [place] Start: 07-31-2023 End: 04-15-2024 Tobacco smoking status NHIS Smoker (finding) [facility] Start: 1960 Sex Assigned At Female F [facility] Tobacco smoking status LAIS Tobacco smoking consumption unknown [facility] Start: 1960 Sex assigned at Not on file [facility] Start: 04-15-2024 End: 05-10-2024 Sex Female (finding) [facility] Functional Status Date Assessment Result Facility 12-22-2021 N/A General Surgery [place] Clinical Notes 12-22-2021 to 05-10-2024 BRENDA Nuñez - 04/01/2024 3:00 PM EST Note Date & Type Note Facility 05-10-2024 Hospital Discharg e instructions Ambulatory OrdersReferral to ENT Time Frame: 05/10/24, Location: None Selected [facility] Work Phone: 04-01-2024 History of Presen t illness Narrative Images from the original note were not included. Reason for Appointment: EMG Patient: Cristine Manley : 1960 EMG Computer: [employer] Referring Physician: Ofelia Arceo PA-C EMG: BLE dependency case manager: Daniel Dougherty RT(R) Office Location: [place] Reason for EMG: c/o numbness/tingling in bilateral [...] of the test. documented in this encounter [facility] 03-11-2024 Evaluation note Diagnosis Onset Date Resolution [...] 29 024 8:45am Right thyroid nodule acute 2023 8:45am Cigarette nicotine dependence with nicotine-induced disorder acute April 15 3:12pm Encounter for screening for lung cancer acute April 15 3:12pm long-term (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 of 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 acute April 15, 2024 3:12pm Moderate persistent asthma, uncomplicated acute April 3:12pm [facility] Work Phone: 1(153) 467-622311-15-2024 NotePatient Education Materials Name: Cristine Manley Current Date: 02/23/2024 07:10:10 [place] : 1960 [facility]: [id number] The following sheet(s) are the Patient Education [...] you for choosing [facility] for your care.[facility]10-31-2024 Evaluation note* Diagnosis Onset Date Resolution [...] 024 8:45am Right thyroid nodule acute Dece 2023 8:45am Cigarette nicotine dependenc e with nicotine-induced disorder acute J anuary 2024 3:12pm Encounter for screening for lung cancer acute April 15 3:12pm long-term (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 of 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 acute April 15 3:12pm Moderate persistent asthma, uncomplicated acute April 15 3:12pm [facility] Work Phone: 1(650) 817-417910-16-2024 Evaluation note* Diagnosis Onset Date Resolution Status Admit Date Bilateral knee pain acute Octob er 2023 2:05pm Primary osteoarthritis of rk th knees acute January 23 2:05pm COPD exacerbation acute February 08, 2024 1:31pm Lumbar radiculopathy, chronic acute February 08, 2024 1:31pm Menopause acute February 08, 2024 1:31pm Rib fracture acute January 1:31pm Cigarette nicotine dependenc e with nicotine-induced disorder acute D ecember 2023 3:14pm Encounter for immunization acute March 11, 2024 3:14pm Encounter for screening for lung cancer acute March 11 3:14pm Moderate persistent asthma, uncomplicated acute March 11 3:14pm Lumbar radiculopathy, chronic acute March 29, 2024 8:45am Pain in posterior right lowe r extremity acute March 29 024 8:45am Right thyroid nodule acute Dece 2023 8:45am Cigarette nicotine dependenc e with nicotine-induced disorder acute J anuary 2024 3:12pm Encounter for screening for lung cancer acute April 15 3:12pm Moderate persistent asthma, uncomplicated acute April 15 3:12pm [facility] Work Phone: 1(133) 617-737210-05-2022 NoteOPERATIVE NOTE OPERATION DATE: 01/12/2022 PREOPERATIVE DIAGNOSIS: [...] pathology of the polyp. CC: Cornelius Garrison M.D.[facility]09-14-2022 NoteChief Complaint consultation for epigastric pain HPI [...] Chronic obstructive pulmonary dise (more content not included)...[facility]:Result Comment: Electronically Signed By: RAJINDER TAVERAS, Mihaela Trujillo\Date and Time Signed: 12/22/21 17:34 EDTEvaluation + Plan note No data available for this section [facility] [place] Evaluation note* Diagnosis Onset Date Resolution Status Lumbar radiculopathy, chronic acute [facility] Work Phone: Evaluation note* Diagnosis Onset Date Resolution Status Lumbar radiculopathy, chronic acute Headache acute Joint pain acute Tick bite acute [facility] Work Phone: Evaluation note* Diagnosis Onset Date Resolution Status Headache acute Joint pain acute Tick bite acute Chronic obstructive pulmonary disease, unspecified acute Lumbar radiculopathy, chronic acute [facility] Work Phone: Evaluation note* Diagnosis Onset Date Resolution Status Chronic obstructive pulmonary disease, unspecified acute Lumbar radiculopathy, chronic acute Bilateral knee pain acute COPD exacerbation acute Lumbar pain acute Lumbar radiculopathy, chronic acute Bilateral knee pain acute Primary osteoarthritis of both knees acute [facility] Work Phone: Evaluation note* Diagnosis Onset Date Resolution Status Bilateral knee pain acute COPD exacerbation acute Lumbar pain acute Lumbar radiculopathy, chronic acute Bilateral knee pain acute Primary osteoarthritis of both knees acute Menopause acute [facility] Work Phone: Evaluation note* Diagnosis Lumbosacral radiculopathy- Primary Thoracic or lumbosacral neuritis or radiculitis, unspecified Numbness and tingling Disturbance of skin sensation documented in this encounter [facility] HealthcareHospital Discharge instructions No data available for this section [facility] [place] Progress note No data available for this section [facility] [place] Reason for visit Narrative* Other Medical (Routine) - Closed Specialty Diagnoses / Procedures Referred By Contac t Referred To Contact Neurology Diagnoses Neuralgia and neuritis, unspecified Procedures MO NEEDLE EMG EA EXTREMTY W/PARASPINL AREA COMPLETE MO NERVE CONDUCTION STUDIES 9-10 STUDIES Ofelia Arceo PA-C [address] [place] [address] Phone: tel: fax: Cecil Fields MD [address] [place] [address] Phone: tel: fax: Referral ID Status Reason Start Date Expiration Date V isits Requested Visits Authorized [id number] Closed Perform Procedure 03/27/2024 09/23/2024 1 1 [facility] Healthcare Summary Purpose Family History No Family [...] Back & Knee Pain-HIGH RISK March 8:45am SHIP MATE: 4 wk f/u Asthma COPD April 15 2 025 3:12pm Reason for Visit Admit [...] Back & Knee Pain-HIGH RISK March 8:45am SHIP MATE: 4 wk f/u Asthma COPD April 15, [...] for lung cancer April 15, 2024 3:12pm long-term (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 of inhaled stero ids April 15, 2024 3:12pm Moderate persistent asthma, uncomplicate d April 15, 2024 3:12pm Chief Complaint Admit Date J44.1 March 04, 2024 2:34pm J44.1 March 04, 2024 6:43pm Ref: Dr. 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 SHIP MATE: 4 wk f/u Asthma COPD April 15, [...] for lung cancer April 15, 2024 3:12pm long-term (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 of inhaled stero ids April [...] 11, 2024 End: March 11, 2024 Scott Denins DO Attending Provider Active St art: March 11, 2024 End: March 11, 2024 Team Status: Active Member Role Status Dates Cornelius Garrison MD Primary Care Provider Active Start: March 21, 2024 Scott Dennis , Attending Provider Active St art: March 21, [...] End: October 13, 2023 Brittanie Siu APRN [employer]NAGER[employer] Attending Provider Act onesimo Start: October 13, [...] Provider Active S tart: January 24, 2024 Clinical Coordinator Relationship Specialty Start Date End Date Cornelius Garrison MD [address] [place] [address] PCP - General Family Medicine 03/27/24 Ofelia Arceo MD [address] [address] Referring Physician Internal Medicine 03/27/24 Clinical Coordinator Relationship Specialty Start Date End Date Cornelius Garrison MD [address] [place] [address] PCP - General Family Medicine 03/27/24 Ofelia Arceo MD [address] [address] Referring Physician Internal Medicine 03/27/24 Team Status: Inactive Member Role Status Dates Cornelius Garrison MD Attending Provider Active St art: April 22, 2024 End: April 22, 2024 Team Status: Active Member Role Status Dates Cornelius Garrison MD Attending Provider Active St art: May 10, 2024 INFORMATION SOURCE (unrecogn ized section and content) DATE CREATED AUTHOR 02/21/2022 [facility] DATE CREATED AUTHOR AUTHOR'S ORGANIZ ATION 04/01/2022 [facility] DATE CREATED AUTHOR AUTHOR'S ORGANIZ ATION 04/03/2024 [facility] EPIC DATE CREATED AUTHOR AUTHOR'S ORGANIZ ATION 05/12/2024 [facility] DATE CREATED AUTHOR AUTHOR'S ORGANIZ ATION 05/27/2024 [facility] Goals (unrecognized section and content) Goals [...] BE BASED ON THE PRIMARY CLINICAL RECORDS. [facility] [employer] [facility]. provides no warranty or guarantee of the accuracy or completeness of information in this document.
--- NOTE | 2024-05-30 08:04 | P.CN_ITS ---
Consult Note: HPI Data of Consult Patient: known to practice within the last 3 years Requesting Physician: Julee Reynoso NP Primary Care Provider: Celia Blank MD Consult Narrative Reason for consult: f/u Narrative: Cristine Manley a pleasant 64 year old female has failed PT greater than 6 weeks, heat/ice, tylenol, ibuprofen. currently utilizing tizanidine, ibuprofen, hydrocodone through PCP. hx of lumbar surgery, recently evaluated by NS who did not recommend further intervention. pt recently underwent left L4/5 L5/S1 TFESI and left SIJ injection with mild relief. Pain today 4/10 increasing to 8/10 burning aching without numbness tingling or weakness to BLE. 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 (ICD-10) Asthma ?J45.909 - Unspecified asthma, uncomplicated (ICD-10) Surgical History H/O fine needle aspiration with imaging guidance ?Z98.890 - Other specified postprocedural states (ICD-10) Status post discectomy ?Z98.890 - Other specified postprocedural states (ICD-10) History of bunionectomy ?Z98.890 - Other specified postprocedural states (ICD-10) H/O bilateral oophorectomy ?Z90.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, bilateral (ICD-10) History of tonsillectomy ?Z90.89 - Acquired absence of other organs (ICD-10) Social History Little interest or pleasure in doing things: not at all Feeling down, depressed, or hopeless: not at all Meds Home Medications and Allergies Home Medications ?Medication ?Instructions ?Recorded ?Confirmed ?Type albuterol sulfate 2.5 mg/3 mL 2.5 mg inhalation Q4H PRN 01/19/24 05/13/24 History (0.083 %) solution for nebulization shortness of breath or wheezing albuterol sulfate 90 mcg/actuation 2 puff inhalation Q4H 01/19/24 05/13/24 History aerosol inhaler fluticasone 250 mcg-salmeterol 50 1 inh inhalation Q12H 01/19/24 05/13/24 History mcg/dose blistr powdr for inhalation hydrocodone 5 mg-acetaminophen 325 1 tab PO Q8H 01/19/24 05/13/24 History mg tablet tizanidine 4 mg tablet 4 mg PO Q8H 01/19/24 05/13/24 History omeprazole 20 mg capsule,delayed 20 mg PO DAILY 02/01/24 05/13/24 History release bupropion HCl 150 mg 24 hr tablet, 150 mg PO DAILY 04/22/24 05/13/24 History extended release fluticasone fur. 200 mcg-umeclid 1 inh inhalation DAILY 04/22/24 05/13/24 History 62.5 mcg-vilant 25 mcg inhalat.powder (Trelegy Ellipta) Allergies Allergy/AdvReac Type Severity Reaction Status Date / Time Sulfa (Sulfonamide Allergy Unknown Unknown Verified 05/13/24 07:00 Antibiotics) levofloxacin (From Levaquin) Allergy Rash Verified 05/13/24 07:00 acetaminophen (From Percocet) AdvReac Intermediate Vomiting Verified 05/13/24 07:00 oxycodone (From Percocet) AdvReac Intermediate Vomiting Verified 05/13/24 07:00 Exam Constitutional Documenting provider has reviewed patient's vital signs: yes Common normals: no apparent distress, oriented x3, healthy appearing, alert and well nourished General appearance: cooperative [facility] Common normals: normocephalic, hearing grossly normal bilaterally and moist oral mucous membranes Head and scalp: normocephalic Eye Common normals: PERRL Pupil: PERRL Neck & C-Spine Common normals: full ROM General: normal visual inspection Chest Common normals: inspection of chest normal Respiratory Common normals: normal respiratory effort, no retractions and no use of accessory muscles Back & Pelvis Lumbar spine/lower back: ROM limited, pain with ROM, lumbar spinal tenderness and straight leg raise negative bilaterally; no paraspinal muscle tenderness and no paraspinal muscle spasm Sacroiliac joints: SI joints normal Other: left sij negative nicol(patricks), gaenslens, thigh thrust, compression test positive facet loading L2-S1 negative radiculopathy on exam, sensation intact BLE Neuro Common normals: oriented x3, CN's II-XII intact bilaterally, moves all extremities, no focal motor deficits, no sensory deficits noted and deep tendon reflexes 2+ bilaterally Sensorium/orientation: alert Motor exam: strength 5/5 throughout and no movement abnormalities noted Psych Common normals: mental status grossly normal, thought process normal, cooperative, affect normal, speech normal and activity/motor behavior normal Speech: normal speech Thought process: normal thought process Results Additional Findings Additional findings: If on a controlled substance or opioids, I have checked an [place] report on this patient and there are no aberrancies noted in the prescribing history.??If on a controlled substance or opioid a drug screen was completed and reviewed within the last year, and if there has not been a drug screen completed we ordered one today to monitor higher risk, state monitored pain medication use. As part of providing excellent, safe, comprehensive care, the following was completed at our patient's visit: 1. A medication reconciliation and review to ensure accurate knowledge of current/active medications, including asking our patients to inform us about any [id number] medications or herbal remedies/nutritional supplements/alternative remedies. 2. A review to specifically ensure our patients have had annual screening for screening for depression, screening for tobacco use, and screening for unhealthy alcohol use. For concerning screenings had a discussion with the patient, provided patient education, and recommended follow-up with primary care provider when appropriate. If patient noted with a risk of falling, they received education on strength, gait, and balance training to prevent future risk of falling. Portions of this note may have been carried over from the previous visit and updated as appropriate. Please note this office utilizes paper charting in addition to the electronic medical record. A list of current medications, vitals, and PMH is available there as the clinical staff outside of myself do not have access to [facility] charting during the clinic day operations. As part of providing quality comprehensive care the current medications, vitals, and PMH were reviewed in the paper chart. Assessment and Plan Assessment and Plan (1) Lumbar facet arthropathy: Assessment and Plan: The patient has had over 3 months of moderate to severe low back pain with functional impairment and inadequate response to conservative care including NSAIDS (unless there are contraindication such as concurrent blood thinners), multiple oral or topical pain medications, and home exercise program/physical therapy.? Patient has completed >6 weeks of guided home exercise program and/or formal physical therapy program without relief of their symptoms.? I have reviewed the imaging of the lumbar spine and no red flags were identified.? The imaging reveals radiographic findings consistent with lumbar facet arthropathy The Oswestry Disability Index was completed, and the patient scored a 24%.? The patient noted the following:?? moderate to severe pain, pain with walking more than 0.5 miles, sleeping less than 6 hours due to pain, social life and travel impacted by pain We discussed the risks and benefits of the procedure with the patient, and we are NOT planning on using sedation as outlined in the guidelines from Medicare unless there is a documented reason that sedation would be strongly recommended.?? ?The procedure will be completed with fluoroscopic guidance.? (2) Lumbar stenosis with neurogenic claudication: (3) Failed back syndrome: (4) Sacroiliitis: Plan bilateral L4-S1 MBB x2 working towards RFA for axial low back pain secondary to lumbar facet arthropathy not interested in spinal cord stimulation continue HEP as tolerated f/u after each injection
== END 2024-05-30 07:36 | disposition home or self-care (01) ==
LOC: PM 07:35
PROVIDERS: PCP Family Medicine; Visit Provider Nurse Practitioner
DX: M47.816 Spondylosis without myelopathy or radiculopathy, lumbar region (principal); M48.062 Spinal stenosis, lumbar region with neurogenic claudication; M96.1 Postlaminectomy syndrome, not elsewhere classified; M46.1 Sacroiliitis, not elsewhere classified
CPT/HCPCS: G0463

== ENCOUNTER 2024-06-17 07:16 | Day surgery (SDC) | payer MEDICARE, OTHER, SELFPAY ==
--- OUTSIDE RECORDS SUMMARY | 2024-06-17 07:19 | XMS_ITS | CCD ---
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 Name Role Phone CORNELIUS GARRISON Primary Care Physician [phone] BLADIMIR PROVIDERCORNELIUS Referring Unavailab le NILL, Mihaela [...] Provider Cornelius Garrison MD Primary Care Provider King NITIN, Ofelia Unavailable Cornelius Garrison MD Primary Care Provider [phone] Alexandro Galvez DO Attending Provider Cornelius Garrison MD Attending Provider Cornelius Garrison MD Primary Care Provider Cornelius Garrison Admitting Unavailable Cornelius Garrison Attending Unavailable Cornelius Garrison Admitting Unavailable Cornelius Garrison Attending Unavailable Cornelius Garrison Primary Care Unavailable Alexandro Galvez Attending Unavailable Alexandro Galvez Admitting Unavailable Cornelius Garrison Primary Care Unavailable Geoff Walker DO Unavailable GEOFF WALKER Attending Unavailable CORNELIUS GARRISON Referring Unavailable KANE PEREZ Attending Unavailable OFELIA ARCEO Referring Unavailable Denilson TAVERAS, Duong Wagoner Attending Unavailable Bladimir TAVERAS, Cornelius [facility] Unava ilable Adis PA-C, Ofelia Grace Attending Unavailab Tuan TAVERAS, Cornelius [facility] Unava stephany Garrison MD, [facility] Unava ilable Adis PA-C, Ofelia Grace Attending Unavailab jass Garrison MD, [facility] Unava stephany Garrison MD, Cornelius Whyte Referring Unava ilable Adis PA-C, Ofelia Grace Attending Unavailab le Adis PA-C, Ofelia Grace Admitting Unavailab le Adis PA-C, Ofelia Grace Attending Unavailab jass Garrison MD, Cornelius [facility] Unava ilable Adis PA-C, Ofelia Grace Attending Unavailab jass Garrison MD, [facility] Abhi Garrison MD, [facility] Gelava ilable Denilson TAVERAS, Duong Wagoner Attending Unavailable Bladimir TAVERAS, [facility] Unava ilable Denilson TAVERAS, Duong Wagoner Attending Unavailable Allergies Allergy Classification Reported Allergen(s) Allergy Type Date of Onset Reaction(s) Facility (3 sources) Acetaminophen / oxyCODONE; Translations: [acetaminophen-oxy codone] Drug Allergy Nausea (finding) [facility] [place] (6 sources) Alendronate; Translations: [alendronate] Drug Allergy 03-29-20 Muscle pain (finding) [facility] [place] (13 sources) Clarithromycin; Translations: [clarithromycin] Drug Allergy 07-31-19 Unknown (qualifier value) [facility] [place] (14 sources) levoFLOXacin; Translations: [levofloxacin] Drug Allergy 07-31-19 Eruption of skin (disorder) [facility] [place] (4 sources) Sulfonamides (Antibiotic); Translations: [sulfa drugs] Drug allergy Unknown (qualifier value) [facility] [place] (1 source) Acetaminophen / oxyCODONE Drug Allergy 03-25-20 16 [facility] Repository (1 source) Alendronate Drug Allergy 03-18-20 [facility] (1 source) Clarithromycin Drug Allergy 03-25-20 16 [facility] (1 source) levoFLOXacin Drug Allergy 03-25-20 16 [facility] (1 source) Quinolones (Antibiotic) Drug allergy (disorder) 03-25-20 16 [facility] (1 source) Sulfonamides (Antibiotic) Drug allergy (disorder) 05-01-19 14 [facility] (1 source) Acetaminophen Drug Allergy 07-31-19 24 [facility] (10 sources) Alendronate Drug Allergy 07-31-19 24 [facility] (10 sources) oxyCODONE Drug Allergy 07-31-19 24 [facility] (10 sources) Sulfonamides (Antibiotic) Allergy to substance 07-31-19 Comment:as a young child, pt. cannot recall reaction [facility] (10 sources) Biaxin XL *MACROLIDES* Allergy to substance 07-28-19 24 [facility] (3 sources) Acetaminophen / oxyCODONE Drug Allergy 06-05-19 25 Nausea Only [facility] (3 sources) Clarithromycin Allergy to substance 03-29-20 24 [facility] (3 sources) Lactobacillus acidophilus Drug Allergy 06-05-19 25 [facility] (3 sources) Quinolones (Antibiotic) Drug Intolerance 03-11-20 10 Rash [facility] (3 sources) Sulfonamides (Antibiotic) Drug Intolerance 03-11-20 10 [facility] (1 source) Ciprofloxacin; Translations: [Cipro] Drug Allergy [facility] Repository (1 source) symbalta; Translations: [symbalta] Propensity to adverse reactions to drug (disorder) [facility] Repository Medications Current Medications Medication Drug Class(es) [...] Three times daily April 20, 2024 April 195 2:01pm Start: 04-20-2024 End: 04-19-2024 take 1 [...] Refill(s) 0 Start Date: 12/17/21 Status: Ordered take 1 tablet by margarito th in the morning, then take 1 tablet by mouth in the evening, then take 1 tablet by mouth at bedtime HYDROcodone-acetaminophen ([place]) 5-325 MG tablet Take 1 tablet by mouth in the morning and 1 tablet in the evening and 1 tablet before bedtime. Active albuterol 0.83 mg/ml inhalation solution (20 sources) [...] Refill(s) 0 Start Date: 12/17/21 Status: Ordered take 2 puff(s) by in halation every four hours albuterol HFA 90 mcg/act inhaler Inhale 2 puffs every 4 (four) hours if needed Active amitriptyline hydrochloride 50 mg oral tablet (15 [...] hydrochloride 300 mg extended release oral tablet (9 sources) Aminoketone Start: 04-15-2024 take 1 tablet by mouth once daily Bupropion Hcl 300 mg tablet extended release 24 hr Active 300 MG PO Daily April 15, 2024 12:00am Start: 03-11-2024 End: 04-15-2024 take 1 tablet by mouth once daily buPROPion XL (Wellbutrin XL) 150 MG 24 hr tablet Take 150 mg by mouth Daily 03/11/2024 Active diclofenac potassium 50 mg oral tablet (1 [...] Rinse after use Start: 03-29-2024 End: 04-15-2024 Zytqenbxoqd-Cbtnbmjyq-Nqlpsk er (Trelegy Ellipta) 200-62.5-25 mcg blister with device Discontinued 1 INH INHALATION Daily 60 March 29, 2024 9:38am April 15, 2024 3:41pm Rinse after use Start: 03-11-2024 End: 03-29-2024 Hdrlzidiild-Cpgsrsiiy-Raaznu er (Trelegy Ellipta) 200-62.5-25 mcg blister with device Discontinued 1 INH INHALATION Daily 180 90 March 11, 2024 12:00am March 29, 2024 9:38am Rinse after use omeprazole 20 mg delayed release oral capsule (7 sources) Proton Pump Inhibitor Start: 03-11-2024 take [...] 2023 12:00am administer with spacer Fluticasone Propion-Salmeterol (15 sources) Corticosteroid, beta2-Adrenergic Agonist Start: 07-28-2023 End: [...] Refill(s) 6 Start Date: 12/17/21 Status: Ordered Fluticasone-Salm eterol 250-50 MCG/ACT aerosol powder Inhale 1 puff Active Fluticasone Propionate 44 mcg/actuation HFA aerosol inhaler (9 sources) Start: 01-24-2024 End: 02-08-2024 take 1 puff(s) by inhalation twice daily Fluticasone Propionate 44 mcg/actuation HFA aerosol inhaler Discontinued 1 PUFF INHALATION Twice daily .January 24, 2024 7:18am February 08, 2024 1:20pm administer with spacer Start: 12-05-2023 End: 01-24-2024 take 1 puff(s) by inhalation twice daily Fluticasone Propionate 44 mcg/actuation HFA aerosol inhaler Discontinued 1 PUFF INHALATION Twice daily .December 05, 2023 1:47pm January 24, 2024 7:18am [...] March 29, 2024 9:04am 60 actuat tiotropium 0.76470 mg/actuat inhalation spray (9 sources) Anticholinergic Start: 02-08-2024 End: 03-11-2024 take 1 puff(s) by inhalation once daily in the morning Tiotropium Kimberly (Spiriva Respimat) 1.25 mcg/actuation mist Discontinued 2 PUFF INHALATION Every morning March 08, 2024 9:50am March 11, 2024 3:50pm tiZANidine 4 mg oral tablet (20 sources) Central alpha-2 Adrenergic Agonist Start: 12-17-2021 End: 04-19-2024 take 1 tablet by mouth three times daily Tizanidine 4 mg tablet Discontinued 4 MG PO Three times daily May 26, 2023 12:10pm August 28, 2023 2:10pm Problems Active Problems Problem Classification Problem Date Documented Date Episodic/Chronic Abdominal hernia (1 source) Diaphragmatic hernia without obstruction or gangrene; Translations: [DIAPH HERNIA W/O OBST/GANGRENE] Onset: 01-17-2022 Episodic Anal and rectal conditions (1 source) Rectal polyp; Translations: [RECTAL POLYP] Onset: 01-17-2022 Episodic Chronic obstructive pulmonary disease and bronchiectasis (20 sources) Chronic obstructive lung disease; Translations: [Chronic obstructive pulmonary disease, unspecified] Onset: 01-17-2022 Resolved: 06-05-2024 12-17-2021 Chronic Digestive congenital anomalies (1 source) Other specified congenital malformations of intestine; Translations: [OTH SPEC CONGEN MALFORM INTESTINE] Onset: 01-17-2022 Chronic Diverticulosis and diverticulitis (1 source) Diverticulosis of large intestine without perforation or abscess without bleeding; Translations: [DVRTCLOS LG INT NO PERF/ABSC W/O BL] Onset: 01-17-2022 Chronic Esophageal disorders (10 sources) Gastroesophageal reflux disease without esophagitis; Translations: [Gastro-esophageal reflux disease without esophagitis] Onset: 12-22-2021 Resolved: 06-05-2024 Chronic Gastritis and duodenitis (1 source) Unspecified chronic gastritis without bleeding; Translations: [UNS CHRONIC GASTRITIS W/O BLEEDING] Onset: 01-17-2022 Chronic Other aftercare (1 source) Other longwall foreman (current) drug therapy; Translations: [OTH INTERMEDIATE CURRENT DRUG THERAPY] Onset: 01-17-2022 Episodic Other aftercare (2 sources) rodent exterminator (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 of 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; Translations: [...] skin] 04-01-2024 Episodic Other non-traumatic joint disorders (3 sources) Pain in unspecified joint; Translations: [Pain in joint, site unspecified] 10-13-2023 Episodic Other screening for suspected conditions (not mental disorders or infectious disease) (11 sources) Screening for malignant neoplasm of colon done; Translations: [Encounter for screening for malignant neoplasm of colon] Onset: 12-22-2021 Episodic Residual codes; unclassified (1 source) Early satiety; Translations: [EARLY SATIETY] Onset: 01-17-2022 Episodic Residual codes; unclassified (3 sources) Asymptomatic menopausal state; Translations: [Symptomatic menopausal or female climacteric states] 02-08-2024 Episodic Thyroid disorders (11 sources) Thyroid nodule; Translations: [Nontoxic single thyroid nodule] Onset: 06-05-2024 Resolved: 06-05-2024 03-29-2024 Chronic Unclassified (2 sources) Patient encounter status 12-22-2021 Unclassified (1 source) CONTACT W/AND (SUSP) EXPOS COVID-19; Translations: [CONTACT W/AND (SUSP) EXPOS COVID-19] Onset: 01-13-2022 Past or Other Problems Problem Classification Problem Date Documented Da te Episodic/Chronic Abdominal pain (10 sources) Epigastric pain; Translations: [Epigastric pain] Onset: 12-22-2021 Resolved: 06-05-2024 Episodic Asthma (17 sources) Asthma; Translations: [Uncomplicated moderate persistent asthma] Onset: 06-05-2024 Resolved: 06-05-2024 12-17-2021 Chronic Disorders of lipid metabolism (5 sources) Very low density lipoprotinemia; Translations: [Pure hyperglyceridemia] Onset: 06-05-2024 Resolved: 06-05-2024 12-17-2021 Chronic E Codes: Natural/environment (15 sources) Tick bite; Translations: [Bitten or stung by nonvenomous insect and other nonvenomous arthropods, initial encounter] Onset: 06-05-2024 Resolved: 06-05-2024 10-13-2023 Episodic Headache; including migraine (15 sources) Headache; Translations: [Headache] Onset: 06-05-2024 Resolved: 06-05-2024 10-13-2023 Episodic Immunizations and screening for infectious disease (9 sources) Patient encounter status; Translations: [Encounter for immunization] Onset: 06-05-2024 Resolved: 06-05-2024 03-11-2024 Episodic Mood disorders (5 sources) Depressive disorder; Translations: [Depression] Onset: 06-05-2024 Resolved: 06-05-2024 12-17-2021 Chronic Osteoarthritis (16 sources) Primary gonarthrosis, bilateral; Translations: [Bilateral primary osteoarthritis of knee] Onset: 06-05-2024 Resolved: 06-05-2024 01-24-2024 Chronic Other aftercare (5 sources) Long-term current use of inhaled steroid; Translations: [rodent exterminator (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 of 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] Onset: 06-05-2024 Resolved: 06-05-2024 04-15-2024 Episodic Other bone disease and musculoskeletal deformities (5 sources) Osteopenia; Translations: [Other specified disorders of bone density and structure, unspecified site] Onset: 06-05-2024 Resolved: 06-05-2024 12-17-2021 Episodic Other connective tissue disease (6 sources) Pain in right lower limb; Translations: [Pain in right leg] Onset: 06-05-2024 Resolved: 06-05-2024 03-29-2024 Episodic Other fractures (6 sources) Fracture of rib; Translations: [Fracture of one rib, unspecified side, initial encounter for closed fracture] Onset: 06-05-2024 Resolved: 06-05-2024 02-18-2024 Episodic Other non-traumatic joint disorders (12 sources) Joint pain; Translations: [Pain in unspecified joint] Onset: 06-05-2024 Resolved: 06-05-2024 10-13-2023 Episodic Other non-traumatic joint disorders (17 sources) Pain in right knee; Translations: [Pain in both knees] Onset: 01-24-2024 Resolved: 06-05-2024 01-10-2024 Episodic Other non-traumatic joint disorders (1 source) Pain in left knee; Translations: [Pain in left knee] Onset: 01-24-2024 Episodic Other nutritional; endocrine; and metabolic disorders (5 sources) Overweight in adulthood with body mass index of 25 or more but less than 30; Translations: [Body mass index (BMI) 27.0-27.9, adult] Onset: 06-05-2024 Resolved: 06-05-2024 12-22-2021 Episodic Residual codes; unclassified (6 sources) Early satiety; Translations: [Early satiety] Onset: 12-22-2021 Resolved: 06-05-2024 Episodic Residual codes; unclassified (6 sources) Tobacco user; Translations: [Tobacco use] Onset: 12-22-2021 Resolved: 06-05-2024 Episodic Residual codes; unclassified (5 sources) Chronic back pain ; Translations: [Dorsalgia, unspecified] Onset: 06-05-2024 Resolved: 06-05-2024 12-17-2021 Episodic Residual codes; unclassified (7 sources) Menopause present; Translations: [Asymptomatic menopausal state] Onset: 06-05-2024 Resolved: 06-05-2024 02-08-2024 Episodic Spondylosis; intervertebral disc disorders; other back problems (20 sources) Lumbar radiculopathy; Translations: [Radiculopathy, lumbar region] Onset: 06-05-2024 Resolved: 06-05-2024 4 Episodic Substance-related disorders (13 sources) Nicotine dependence, cigarettes, uncomplicated; Translations: [Tobacco dependence caused by cigarettes] Onset: 01-17-2022 Resolved: 06-05-2024 03-11-2024 Chronic Results Test Name Value Interpretation Reference Range Facility Neurosurgery Office/Clinic Aliya powell 06-06-2024 Neurosurgery Office/Clinic Note Chief Complaint back follow up History of Present Illness The patient is a pleasant 64-year-old right-handed female with history of chronic nicotine use, asthma and recently diagnosed COPD for which she is planned to see a almond blancher hand in the near future. She also has [...] even before her thoracolumbar surgery in 2013. 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 There is multilevel degenerative disc disease and vacuum disc phenomenon throughout the mid to lower thoracic spine as well as varying degrees of neuroforaminal stenosis including right T9-10 as well as left T6-7, 7-8 and 8-9. In regards to the lumbar spine, there is moderate facet arthropathy though relatively intact disc heights and not significant central canal stenosis. There is moderate neuroforaminal stenosis right L3-4 though I cannot explain her left leg symptoms based on lumbar imaging. 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 She returns today having undergone EMG of the bilateral lower extremities. Results detailed below. Since her last visit, she has also initiated physical therapy without benefit. She is established with [facility] undergoing left L4-5 CARLOS and left sacroiliac joint injection with results of injections detailed below. Overall, she denies any significant change in symptom profile since the time of her last visit. She describes pain throughout the lumbar area, particularly left sided with radiation into the gluteal area, posterior thigh to the knee, and lateral hip. By the end of [...] She denies bowel incontinence or saddle paresthesia. Conservative measures: Oral anti-inflammatory medication including ibuprofen and Tylenol with limited benefit. Oral muscle relaxants including tizanidine which helps pain to be more tolerable though does not resolve. Oral narcotics including [place] which makes pain tolerable though does not resolve. Topical agents including lidocaine patches and Bengay with limited benefit. Pain management injection modalities years ago with temporary benefit lasting only a few days. Physical therapy years ago without significant benefit. Chiropractic manipulation x 1 visit without benefit therefore patient never returned. Activity modification [1] Pain management injection modalities through [facility]. Initial injection targeted left L4-5 which she states locked her left hip and provided no benefit pain. Second injection targeted the left sacroiliac joint which she states benefited her left lower extremity pain for approximately 1 hour before returning. She is planned to undergo trial injections for nerve ablation though is unsure if this is targeting the sacroiliac joint or lumbosacral facets. She also states that she has been offered possible spinal cord stimulator though she does not wish to entertain this idea. Recent imaging (provider interpretation): CT myelogram thoracolumbar [...] medial laterally and 3.6 cm craniocaudally. No si (more content not included)... Normal [facility] Provider Letteron 06-06-2024 Provider Letter (Inserted Image. Gela ble to display) Cornelius Garrison MD [address] [place] [address], [facility] [place] [address] Re: Critsine Manley Date of Visit: 06/06/2024 Dear Cornelius Garrison MD, This patient was recently seen in the neurosurgical office. Please see attached note for further details. Let me know if you have any questions or concerns. Sincerely, DEMARCUS Gan Providers: The following document(s) were included in the letter: June 06, 2024 09:36:40 EST - (06/06/2024) Neurosurgery Office Visit Note Normal [facility] Dominick 04-22-2024 L -------- -------- Specimen: [id number] Received: 04/24/24 Status: OMAR Hayes Num: [id number] Spec Type: Cytology Subm Dr: Cornelius Garrison MD Tissues: A FNA SLIDES NOPATH (INF RT THY) Procedures: Cyto Int and Re, PAPSTN/5 -------- Age/ Patient Sex Location Account Attending Physician -------- ManleyCristine Hairston 64/F [facility] [id number] Cornelius Garrison MD -------- SPEC NUM: [id number] RECD: 04/24/24 STATUS: OMAR HAYES NUM: [id number] TORI: 04/22/24- SUBM DR: Cornelius Garrison MD ENTERED: 04/24/[address] [facility] [address]: Les Lee MD SPEC TYPE: Cytology DEPT: KEN NC ENTERED BY: [id number] RECV BY: [id number] ORDERED: Cyto Int and Re, PAPSTN/5 ORDERED: Cyto Int and Re, PAPSTN/5 Supplemental Report Addendum 1 Entered: 05/10/249912 Supplemental for findings of [facility] GENOMIC SEQUENCING QUALITY AUDITOR: -Ensemble Clinical Research Manager -Benign (risk of malignancy 4%) -Xpression [place] -N/A -Other Classifiers -BRAF p. V600E c. 1799T>A: Negative -RET/PTC1: Not detected -RET/PTC3: Not detected -MTC: Negative -Parathyroid: Negative TERT PROMOTER REGION: -Tests (2) not Performed (TNP) -------- Specimen: [id number] Received: 04/24/24 Status: BASIAPalma Hayes Num: [id number] Spec Type: Cytology Subm Dr: Cornelius Garrison MD Tissues: A FNA SLIDES NOPATH (INF RT THY) Procedures: Cyto Int and Re, PAPSTN/5 -------- Patient: Cristine Manley [id number] (Continued) -------- Specimen: [id number] Received: 04/24/24 (Continued) Supplemental Report (Continued) Signed (signature on file) Gail Sheth MD 04/24/24 1439 -------- Specimen: [id number] Received: 04/24/24 Status: OMAR Hayes Num: [id number] Spec Type: Cytology Subm Dr: Cornelius Garrison MD Tissues: A FNA SLIDES NOPATH (INF RT THY) Procedures: Cyto Int and Re, PAPSTN/5 -------- Patient: Cristine Manley [id number] (Continued) -------- Specimen: [id number] Received: 04/24/247689 (Continued) Supplemental Report (Continued) Addendum Signed (signature on file) Pedro-Diogenes Sheth MD 05/10/24 1132 -------- Pathological Diagnosis Right thyroid nodule, inferior, FNA cytology -Adequate follicular groups in the ThinPrep smear, appropriate for assessment, consisting of small to occasionally slightly larger and reactive follicular cells, suggesting dimorphic population and the category 3 [place] system, atypia of the undetermined significance, otherwise [...] performed supporting the above interpretation CPT Codes 73898 -------- -------- Specimen: [id number] Received: 04/24/24 Status: OMAR Hayes Num: [id number] Spec Type: Cytology Subm Dr: Cornelius Garrison MD Tissues: A FNA SLIDES NOPATH (INF RT THY) Procedures: Cyto Int and Re, PAPSTN/5 -------- Patient: Cristine Manley [id number] (Continued) -------- Signed (signature on file) Gail Sheth MD 04/24/24 1439 Normal [facility] EMG 2 Extremitieson 04-01-20 EMG/NCS BLE Right L5/S1 radic [place] S1/2 radic [facility] NVC 9-10 Nerveson 04-01-2024 EMG/NCS BLE Right L5/S1 radic [place] S1/2 radic [facility] Provider Letteron 03-26-2024 Provider Letter (Inserted Image. Gela ble to display) Cornelius Garrison MD [facility], [facility] [place] [address] Re: Cristine Manley Date of Visit: 03/25/2024 Dear Cornelius Garrison MD, This patient was recently seen in the neurosurgical office. Please see attached note for further details. Let me know if you have any questions or concerns. Sincerely, DEMARCUS Gan Providers: The following document(s) were included in the letter: March 25, 2024 17:40:13 EST - (03/25/2024) Neurosurgery Office Visit Note Normal [facility] Neurosurgery Office/Clinic N oteon 03-25-2024 Neurosurgery Office/Clinic Note Chief Complaint CT thoracic, lumbar, XR lumbar, hips and neck review History of Present Illness The patient is a pleasant 64-year-old right-handed female with history of chronic nicotine use, asthma and recently diagnosed COPD for which she is planned to see a almond blancher hand in the near future. She also has [...] though does not resolve. Oral narcotics including [place] which makes pain tolerable though does not [...] increases slightl (more content not included)... Normal [facility] Basophils Auto (Bld) [#/Vol] on 03-21-2024 Basophils (Bld) [#/Vol] Automated basophil count 0.0-0.1 [facility] Basophils/100 WBC Auto (Bld) on 03-21-2024 Basophils/100 WBC (Bld) Automated basophil % 0.2-2.0 [facility] Eosinophils/100 WBC Auto (Bl d)on 03-21-2024 Eosinophils/100 WBC (Bld) Automated eosinophil % 0.9-7.0 [facility] Erythrocyte distribution wid th Auto (RBC) [Ratio]on 03-21-2024 Erythrocyte distribution width (RBC) [Ratio] Erythrocyte distribution width [Ratio] by Automated count 11.0-15.0 [facility] Hematocrit Auto (Bld) [Volum e fraction]on 03-21-2024 Hematocrit (Bld) [Volume fraction] Hematocrit [Volume Fraction] of Blood by Automated count 36.0-48.0 [facility] Hemoglobin [Mass/volume] in Bloodon 03-21-2024 Hemoglobin (Bld) [Mass/Vol] Hemoglobin [Mass/volume] in Blood 12.0-16.0 [facility] IgE [Units/volume] in Serum or Plasmaon 03-21-2024 IgE Qn IgE [Units/volume] i n Serum or Plasma 6-495 [facility] Comment on above: Performed at: - [address] [id number] Director: Levi Pedroza MD, Phone: [phone] Laboratory - Hematology and Cell countson 03-21-2024 Immature granulocytes/100 WBC (Bld) 0.1 % 0.0-0.5 [facility] Leukocytes [#/volume] correc shant for nucleated erythrocytes in Blood by Automated counon 03-21-2024 WBC corrected for nucl RBC Auto (Bld) [#/Vol] Leukocytes [#/volume] corrected for nucleated erythrocytes in Blood by Automated coun 4.0-11.0 [facility] Lymphocytes Auto (Bld) [#/Vo l]on 03-21-2024 Lymphocytes (Bld) [#/Vol] Lymphocytes [#/volume] in Blood by Automated count 1.2-3.8 [facility] Lymphocytes/100 WBC Auto (Bl d)on 03-21-2024 Lymphocytes/100 WBC (Bld) Lymphocytes/100 leukocytes in Blood by Automated count Low 20.5-60.0 [facility] MCH Auto (RBC) [Entitic mass ]on 03-21-2024 MCH (RBC) [Entitic mass] MCH [Entitic mass] by Automated count 26.7-34.0 [facility] MCHC Auto (RBC) [Mass/Vol]on 03-21-2024 MCHC (RBC) [Mass/Vol] MCHC [Mass/volume] by Automated count 29.9-35.2 [facility] MCV Auto (RBC) [Entitic vol] on 03-21-2024 MCV (RBC) [Entitic vol] MCV [Entitic volume] by Automated count 81.0-99.0 [facility] Monocytes Auto (Bld) [#/Vol] on 03-21-2024 Monocytes (Bld) [#/Vol] Automated blood monocyte count 0.3-0.8 [facility] Monocytes/100 WBC Auto (Bld) on 03-21-2024 Monocytes/100 WBC (Bld) Automated monocyte % 1.7-12.0 [facility] Neutrophils Auto (Bld) [#/Vo l]on 03-21-2024 Neutrophils (Bld) [#/Vol] Neutrophils [#/volume] in Blood by Automated count High 1.4-6.5 [facility] Neutrophils/100 WBC Auto (Bl d)on 03-21-2024 Neutrophils/100 WBC (Bld) Automated neutrophil % 43.0-75.0 [facility] No Panel Informationon 03-21 Eosinophils # (Auto) 0.1 10 3/uL 0.0-0.7 [facility] Immature Granulocyte # (Auto) 0.01 10 3/uL 0.00-0.03 [facility] Platelet mean volume Auto (B ld) [Entitic vol]on 03-21-2024 Platelet mean volume (Bld) [Entitic vol] Platelet mean volume [Entitic volume] in Blood by Automated count 9.5-13.5 [facility] Platelets Auto (Bld) [#/Vol] on 03-21-2024 Platelets (Bld) [#/Vol] Platelets [#/volume] in Blood by Automated count 150-450 [facility] RBC Auto (Bld) [#/Vol]on RBC (Bld) [#/Vol] Erythrocytes [#/volu me] in Blood by Automated count 4.20-5.40 [facility] Provider Letteron 02-29-2024 Provider Letter (Inserted Image. Gela ble to display) Cornelius Whittaker [address], [place] [address] Re: Cristine Manley Date of Visit: 02/23/2024 Dear Cornelius Garrison MD, Please see attached results on this mutual patient you have with [facility] Result Name Current Result CT Spine Thoracic/Lumbar Myelogram w/Con 02/23/2024 Let me know if you have any questions or concerns. Sincerely, Jaclyn Bliss [facility] C C Providers: Normal [facility] CT Spine Thoracic/Lumbar Mye logram w/Conon 02-27-2024 [...] Electronically Signed in Other Vendor System) Normal [facility] PTon 02-23-2024 INR Coag (PPP) [Relative time] 1.0 {INR} Normal <=3.5 [facility] Comment on above: Result Comment: INR has no normal range. INR Therapeutic range is: 2.0-3.0 (AF, CVA, TIAs, DVT prophylaxis, acute DVT) 2.5-3.5 ([facility] heart valves, recurrent thrombosis/emboli) Performed By: #### P TINR ####[facility] [place] [address] PT Coag (PPP) [Time] 10.3 s Normal 9.2-12.0 [facility] Comment on above: Performed By: #### P TINR ####[address] [address] PTTon 02-23-2024 aPTT Coag (Bld) [Time] 24.8 s Normal 19.5-28.2 [facility] Comment on above: Performed By: #### P TT ####[address] [address] Platelet Counton 02-23-2024 Platelet 300 x10*3/mcL Normal 150-450 [facility] Comment on above: Performed By: #### P LTS #### [address] [address] XR Hip 2-3 Views Lefton 02-08 XR [...] Electronically Signed in Other Vendor System) Normal [facility] XR Myelography Spine 2 or Mo re [facility] 02-23-2024 XR Myelography Spine 2 or More [...] DT/TM: 02/23/2024 10:10 am Signed by: Alexey Moragn MD Signed (Electronic Signature): 02/23/2024 10:11 am (If Report Is Signed, Electronically Signed in Other Vendor System) Normal [facility] XR Spine Cervical 4 or 5 [facility] 02-23-2024 XR Spine Cervical 4 or 5 [...] Signed, Electronically Signed in Other Vendor System) [facility] XR Spine Lumbosacral Bending 2-3 Viewson [...] Electronically Signed in Other Vendor System) Normal [facility] Neurosurgery Office/Clinic N sherry 02-13-2024 Neurosurgery Office/Clinic Note Chief Complaint Back lumbar pain radiculopathy consult History of Present Illness The patient is a pleasant 64-year-old right-handed female with history of chronic nicotine use, asthma and recently diagnosed COPD for which she is planned to see a almond blancher hand in the near future. She also has [...] though does not resolve. Oral narcotics including [place] which makes pain tolerable though does not [...] Newly diagnosed COPD, scheduled to see a almond blancher hand in the near future Chronic nicotine use [...] marijuana use. 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 She denies any Worker's Comp. related claims regarding today's visit FAMILY HISTORY: Lung cancer: Father Diabetes mellitus: Mother Hypertension: Mother Review of Systems Constitutional: [No fevers, chills, sweats] Eye: [No recent visual problems] ENMT: [ (more content not included)... Normal [facility] Provider Letteron 02-13-2024 Provider Letter (Inserted Image. Gela ble to display) Cornelius Garrison MD [address] [place] [address], [facility] [place] [address] Re: Cristine Manley Date of Visit: 02/13/2024 Dear Cornelius Garrison MD, This patient was recently seen in the neurosurgical office. Please see attached note for further details. Let me know if you have any questions or concerns. Sincerely, DEMARCUS Gan Providers: The following document(s) were included in the letter: February 13, 2024 09:39:53 EST - (02/13/2024) Neurosurgery Office Visit Note Normal [facility] XR knee BI 3V - NOT FOR ER U Sanam 01-24-2024 XR knee BI 3V - NOT FOR ER USE [facility] [address] [facility] [place] [address] XRay Report Signed Patient: Cristine Manley MR#: [id number] 53 : 1960 Acct:[id number] Age/Sex: 64 / F ADM Date: 01/24/24 Loc: SOXD Room: Type: [facility] Attending Dr: Alexandro Galvez DO Copies [...] Sunday Graham M.D.01/24/2024 3:45 PM Dictation Location: [place] [address] Transcribed By: [facility] 01/24/24 1545 Dictated By: Sunday Graham II, MD 01/24/24 154 Signed By: 01/24/24 154 Normal [facility] Basophils Auto (Bld) [#/Vol] on 01-19-2024 Basophils (Bld) [#/Vol] 0.0 10 3/uL 0.0-0.1 [facility] Basophils (Bld) [#/Vol] Automated basophil count 0.0-0.1 [facility] Basophils/100 WBC Auto (Bld) on 01-19-2024 Basophils/100 WBC (Bld) 0.2 % 0.2-2.0 [facility] Basophils/100 WBC (Bld) Automated basophil % 0.2-2.0 [facility] Eosinophils/100 WBC Auto (Bl d)on 01-19-2024 Eosinophils/100 WBC (Bld) 4.3 % 0.9-7.0 [facility] Eosinophils/100 WBC (Bld) Automated eosinophil % 0.9-7.0 [facility] Erythrocyte distribution wid th Auto (RBC) [Ratio]on 01-19-2024 Erythrocyte distribution width (RBC) [Ratio] 13.1 % 11.0-15.0 [facility] Erythrocyte distribution width (RBC) [Ratio] Erythrocyte distribution width [Ratio] by Automated count 11.0-15.0 [facility] Estimated glomerular filtrat ion rate (GFR) non- Americanon 01-19-2024 GFR/1.73 sq M.predicted among non-blacks MDRD (S/P/Bld) [Vol rate/Area] mL/min/{1.73_m2} >=60 mL/min/1.73 m 2 [facility] GFR/1.73 sq M.predicted among non-blacks MDRD (S/P/Bld) [Vol rate/Area] Estimated glomerular filtration rate (GFR) non- >=60 mL/min/1.73 m 2 [facility] Fibrin D-dimer [Presence] in Platelet poor plasma by Latex agglutinationon 01-19-2024 Fibrin D-dimer LA Ql (PPP) 0.43 mg/L FEU <=0.59 [facility] Comment on above: Increases in D-Dimer concentration [...] Platelet poor plasma by Latex agglutination <=0.59 [facility] Comment on above: Increases in D-Dimer concentration [...] Hematocrit (Bld) [Volume fraction] 39.5 % 36.0-48.0 [facility] Hematocrit (Bld) [Volume fraction] Hematocrit [Volume Fraction] of Blood by Automated count 36.0-48.0 [facility] Hemoglobin [Mass/volume] in Bloodon 01-19-2024 Hemoglobin (Bld) [Mass/Vol] 12.8 g/dL 12.0-16.0 [facility] Hemoglobin (Bld) [Mass/Vol] Hemoglobin [Mass/volume] in Blood 12.0-16.0 [facility] Laboratory - Chemistry and C hemistry - challengeon 01-19-2024 Calcium [Mass/Vol] 9.0 mg/dL 8.5-10.1 [facility] Chloride [Moles/Vol] 105 mmol/L 98-107 [facility] CO2 [Moles/Vol] 28.7 mmol/L 21.0-32.0 [facility] Creatinine [Mass/Vol] 0.92 mg/dL 0.55-1.02 [facility] GFR/1.73 sq M.predicted MDRD (S/P/Bld) [Vol rate/Area] mL/min/{1.73_m2} >=60 mL/min/1.73 m 2 [facility] Glucose [Mass/Vol] 78 mg/dL 74-106 [facility] Potassium [Moles/Vol] 4.0 mmol/L 3.5-5.1 [facility] Sodium [Moles/Vol] 138 mmol/L 136-145 [facility] Urea nitrogen [Mass/Vol] 27.0 mg/dL High 7.0-18.0 [facility] Urea nitrogen/Creatinin e [Mass ratio] 29.3 mg/mg [facility] Laboratory - Hematology and Cell countson 01-19-2024 Immature granulocytes/100 WBC (Bld) 0.3 % 0.0-0.5 [facility] Laboratory - Microbiology an d Antimicrobial susceptibilityon 01-19-2024 SARS-CoV-2 (COVID-19) RNA JOSELUIS+probe Ql (Unsp spec) Negative NEGATIVE [facility] Comment on above: This test has not [...] (Bld) [#/Vol] 12.6 10 3/uL High 4.0-11.0 [facility] WBC corrected for nucl RBC Auto (Bld) [#/Vol] Leukocytes [#/volume] corrected for nucleated erythrocytes in Blood by Automated coun High 4.0-11.0 [facility] Lymphocytes Auto (Bld) [#/Vo l]on 01-19-2024 Lymphocytes (Bld) [#/Vol] 4.4 10 3/uL High 1.2-3.8 [facility] Lymphocytes (Bld) [#/Vol] Lymphocytes [#/volume] in Blood by Automated count High 1.2-3.8 [facility] Lymphocytes/100 WBC Auto (Bl d)on 01-19-2024 Lymphocytes/100 WBC (Bld) 35.0 % 20.5-60.0 [facility] Lymphocytes/100 WBC (Bld) Lymphocytes/100 leukocytes in Blood by Automated count 20.5-60.0 [facility] MCH Auto (RBC) [Entitic mass ]on 01-19-2024 MCH (RBC) [Entitic mass] 29.4 pg 26.7-34.0 [facility] MCH (RBC) [Entitic mass] MCH [Entitic mass] by Automated count 26.7-34.0 [facility] MCHC Auto (RBC) [Mass/Vol]on 01-19-2024 MCHC (RBC) [Mass/Vol] 32.4 g/dL 29.9-35.2 [facility] MCHC (RBC) [Mass/Vol] MCHC [Mass/volume] by Automated count 29.9-35.2 [facility] MCV Auto (RBC) [Entitic vol] on 01-19-2024 MCV (RBC) [Entitic vol] 90.6 fL 81.0-99.0 [facility] MCV (RBC) [Entitic vol] MCV [Entitic volume] by Automated count 81.0-99.0 [facility] Monocytes Auto (Bld) [#/Vol] on 01-19-2024 Monocytes (Bld) [#/Vol] 1.2 10 3/uL High 0.3-0.8 [facility] Monocytes (Bld) [#/Vol] Automated blood monocyte count High 0.3-0.8 [facility] Monocytes/100 WBC Auto (Bld) on 01-19-2024 Monocytes/100 WBC (Bld) 9.5 % 1.7-12.0 [facility] Monocytes/100 WBC (Bld) Automated monocyte % 1.7-12.0 [facility] Neutrophils Auto (Bld) [#/Vo l]on 01-19-2024 Neutrophils (Bld) [#/Vol] 6.4 10 3/uL 1.4-6.5 [facility] Neutrophils (Bld) [#/Vol] Neutrophils [#/volume] in Blood by Automated count 1.4-6.5 [facility] Neutrophils/100 WBC Auto (Bl d)on 01-19-2024 Neutrophils/100 WBC (Bld) 50.7 % 43.0-75.0 [facility] Neutrophils/100 WBC (Bld) Automated neutrophil % 43.0-75.0 [facility] No Panel Informationon 01-18 Bedside Influenza Type A Antigen Negative [facility] Comment on above: Negative for Flu A p rotein antigen. Infection due to Flu Acannot be ruled out. Flu A antigen in the sample may bebelow the detection limit of the test. Bedside Influenza Type B Antigen Negative [facility] Comment on above: Negative for Flu B p rotein antigen. Infection due to Flu Bcannot be ruled out. Flu B antigen in the sample may bebelow the detection limit of the test. Eosinophils # (Auto) 0.5 10 3/uL 0.0-0.7 [facility] Immature Granulocyte # (Auto) 0.04 10 3/uL High 0.00-0.03 [facility] Troponin I High Sensitivity 5.8 pg/mL 4.0-51.3 [facility] Comment on above: CUT-OFF POINTS HAVE BEEN [...] (Bld) [Entitic vol] 9.3 fL Low 9.5-13.5 [facility] Platelet mean volume (Bld) [Entitic vol] Platelet mean volume [Entitic volume] in Blood by Automated count Low 9.5-13.5 [facility] Platelets Auto (Bld) [#/Vol] on 01-19-2024 Platelets (Bld) [#/Vol] 304 10 3/uL 150-450 [facility] Platelets (Bld) [#/Vol] Platelets [#/volume] in Blood by Automated count 150-450 [facility] RBC Auto (Bld) [#/Vol]on RBC (Bld) [#/Vol] 4.36 10 6/uL 4.20-5.40 [facility] RBC (Bld) [#/Vol] Erythrocytes [#/volu me] in Blood by Automated count 4.20-5.40 [facility] Serum or plasma anion gap de terminationon 01-19-2024 Anion gap [Moles/Vol] 8.3 mmol/L [facility] Anion gap [Moles/Vol] Serum or plasma anion gap determination [facility] Borrelia burgdorferi IgG+IgM Ab [Presence] in Serum by Immunoassayon 10-13-2023 B. burgdorferi IgG+IgM IA Ql (S) Negative Negative [facility] Comment on above: Lyme antibodies not detected. Reflex testing is notindicated.No laboratory evidence of infection with B. burgdorferi(Lyme disease). Negative results may occur in patientsrecently infected (less than or equal to 14 days) with B.burgdorferi. If recent infection is suspected, repeattesting on a new sample collected in 7 to 14 days isrecommended.Performed at: [id number] [id number] Director: Jeovany Bazan PhD, Phone: [phone] General Surgery Office/Clini c Noteon 02-21-2022 General [...] Sister. Primary malignant neoplasm of lung: Father. [facility] Comment on above: Result Comment: Elec [...] Tobacco user Very low density lipoprotinemia Normal [facility] Reminderson 02-01-2022 Reminders - From: Sushma Shell LPN To: GSN - Clinical; Sent: 02/01/2022 16:18:52 EDT Show up: 04/12/2022 07:00:00 EST Subject: EGD recall Due Date/Time: 05/04/2022 07:00:00 EST Reminder/Recall Patient is due to repeat EGD 05/04/2022 due to gastric ulcer. Normal [facility] Outside Colonoscopyon 2021 Outside Colonoscopy [id number]#[id number]:127 Normal [facility] Pathology Noteon 01-14-2022 Pathology Note [id number]#[id number]:127 Normal [facility] Reminderson 01-14-2022 Reminders - From: Sushma Shell LPN To: N - Clinical; Sent: 01/14/2022 08:07:35 EDT Show up: 12/14/2031 07:00:00 EDT Subject: colonoscopy recall Due Date/Time: 01/13/2032 07:00:00 EDT Reminder/Recall Patient is due for screening colonoscopy 01/13/2032. Normal [facility] Pre-Certification Formon Pre-Certification Form [id number]#[id number]:127 [facility] Lab Reportson 01-11-2022 Lab Reports [id number]#[id number]:127 Normal [facility] Covid-19 PCR (CVDTB)on SARS-CoV-2 (COVID-19) RNA JOSELUIS+probe Ql (Unsp spec) Not detected Normal NOT DETECTED [facility] Comment on above: Result Comment: This test is not yet approved or cleared by the [place] FDA. When there are no FDA-approved or cleared tests available, and other criteria are met, FDA can make tests available under an emergency access mechanism called an Emergency Use Authorization (EUA). The EUA for this test is supported by the Counselor Aide of Health and Human Service's (HHS's) declaration [...] consistent with SARS-CoV-2. Performed By: #### C [facility] #### [facility] [address] [place] [address] Dr. Pablo Sheth Physician Orderon 12-23-2021 Physician Order [id number]:127 Normal [facility] Ambulatory Visit Summaryon 0 12-22-2021 Ambulatory Visit [...] Tobacco user Very low density lipoprotinemia Normal [facility] CBC AUTO DIFFon 12-17-2021 BASO # 0.1 103/ul Normal 0.0-0.1 [facility] Comment on above: Performed By: #### D ATCBC #### [facility] [address] [place] [address] Dr. Pablo Sheth Basophils/100 WBC (Bld) 0.4 % Normal 0.2-2.0 [facility] Comment on above: Performed By: #### D ATCBC #### [facility] [address] [place] [address] Dr. Pablo Sheth EO # 0.3 103/ul Normal 0.0-0.7 [facility] Comment on above: Performed By: #### D ATCBC #### [facility] [address] [place] [address] [address] Pablo Sheth Eosinophils/100 WBC (Bld) 2.4 % Normal 0.9-7.0 [facility] Comment on above: Performed By: #### D ATCBC #### [facility] [address] [place] [address] Dr. Pablo Sheth Erythrocyte distribution width (RBC) [Ratio] 13.2 % Normal 11.0-15.0 [facility] Comment on above: Performed By: #### D ATCBC #### [facility] [address] [place] [address] Dr. Pablo Sheth Hematocrit (Bld) [Volume fraction] 42.6 % Normal 36.0-48.0 [facility] Comment on above: Performed By: #### D ATCBC #### [facility] [address] [place] [address] Dr. Pablo Sheth Hemoglobin (Bld) [Mass/Vol] 13.7 g/dL Normal 12.0-16.0 [facility] Comment on above: Performed By: #### D ATCBC #### [facility] [address] [place] [address] Dr. Pablo Sheth IG # 0.05 10e3/ul Critically high 0.00-0.03 [facility] Comment on above: Performed By: #### D ATCBC #### [facility] [address] [place] [address] Dr. Pablo Sheth IG % 0.4 % Normal 0.0-0.5 [facility] Comment on above: Performed By: #### D ATCBC #### [facility] [address] [place] [address] Dr. Pablo Sheth LYMPH # 2.8 103/ul Normal 1.2-3.8 [facility] Comment on above: Performed By: #### D ATCBC #### [facility] [address] [place] [address] Dr. Pablo Sheth Lymphocytes/100 WBC (Bld) 20.9 % Normal 20.5-60.0 [facility] Comment on above: Performed By: #### D ATCBC #### [facility] [address] [place] [address] Dr. Pablo Sheth MCH (RBC) [Entitic mass] 29.2 pg Normal 26.7-34.0 [facility] Comment on above: Performed By: #### D ATCBC #### [facility] [address] [place] [address] Dr. Pablo Sheth MCHC (RBC) [Mass/Vol] 32.2 g/dL Normal 29.9-35.2 [facility] Comment on above: Performed By: #### D ATCBC #### [facility] [address] [place] [address] [address] Pablo Sheth MCV (RBC) [Entitic vol] 90.8 fL Normal 81.0-99.0 [facility] Comment on above: Performed By: #### D ATCBC #### [facility] [address] [place] [address] Dr. Pablo Sheth MONO # 1.0 103/ul Critically high 0.3-0.[address] [facility] Comment on above: Performed By: #### D ATCBC #### [facility] [address] [place] [address] Dr. Pablo Sheth Monocytes/100 WBC (Bld) 7.5 % Normal 1.7-12.0 [facility] Comment on above: Performed By: #### D ATCBC #### [facility] [address] [place] [address] Dr. Pablo Sheth NEUT # 9.2 103/ul Critically high 1.4-6.[address] [facility] Comment on above: Performed By: #### D ATCBC #### [facility] [address] [place] [address] Dr. Pablo Sheth Neutrophils/100 WBC (Bld) 68.4 % Normal 43.0-75.0 [facility] Comment on above: Performed By: #### D ATCBC #### [facility] [address] [place] [address] Dr. Pablo Sheth Platelet mean volume (Bld) [Entitic vol] 9.3 fL Critically low 9.5-13.5 [facility] Comment on above: Performed By: #### D ATCBC #### [facility] [address] [place] [address] Dr. Pablo Sheth PLT 313 103/ul Normal 150-450 [facility] Comment on above: Performed By: #### D ATCBC #### [facility] [address] [place] [address] Dr. Pablo Sheth RBC 4.69 106/ul Normal 4.20-5.40 [facility] Comment on above: Performed By: #### D ATCBC #### [facility] [address] [place] [address] [address] Pablo Sheth WBC 13.4 103/ul Critically high 4.0-11.0 [facility] Comment on above: Performed By: #### D ATCBC #### [facility] [address] [place] [address] Dr. Pablo Sheth BERKLEY - TSHon 12-17-2021 TSH 1.241 uIU/mL Normal 0.358-3.740 [facility] Comment on above: Performed By: #### D ATTTONYA DATBMP #### [facility] [address] [place] [address] Dr. Pablo Sheth TSH RANGE SEE BELOW Normal [facility] Comment on above: Result Comment: <0.3 4 UIU/ml HYPERTHYROID 0.34-5.60 UIU/ml EUTHYROID >5.60 UIU/ml HYPOTHYROID Performed By: #### D JOSE J DATBMP #### [facility] [address] [place] [address] Dr. Pablo Sheth BERKLEY- BMP WITH LIPIDon 2021 Anion gap [Moles/Vol] 11.9 mmol/L Normal [facility] Comment on above: Performed By: #### D JOSE J DATBMP #### [facility] [address] [place] [address] Dr. Pablo Sheth Calcium [Mass/Vol] 9.1 mg/dL Normal 8.5-10.1 [facility] Comment on above: Performed By: #### D JOSE J DATBMP #### [facility] [address] [place] [address] Dr. Pablo Sheth Chloride [Moles/Vol] 104 mmol/L Normal 98-107 [facility] Comment on above: Performed By: #### D ATTTONYA DATBMP #### [facility] [address] [place] [address] Dr. Pablo Sheth Cholesterol [Mass/Vol] 207 mg/dL Critically high <=200 [facility] Comment on above: Performed By: #### D ATTTONYA DATBMP #### [facility] [address] [place] [address] Dr. Pablo Sheth Cholesterol in HDL [Mass/Vol] 52 mg/dL Normal 40-60 [facility] Comment on above: Performed By: #### D JOSE J DATBMP #### [facility] [address] [place] [address] [address] Pablo Sheth Cholesterol in LDL [Mass/Vol] 141.4 mg/dL Normal [facility] Comment on above: Performed By: #### D JOSE J DATBMP #### [facility] [address] [place] [address] [address] Pablo Sheth CO2 [Moles/Vol] 29.3 mmol/L Normal 21.0-32.0 [facility] Comment on above: Performed By: #### D JOSE J DATBMP #### [facility] [address] [place] [place] [address] Dr. Pablo Sheth Creatinine [Mass/Vol] 0.77 mg/dL Normal 0.55-1.02 [facility] Comment on above: Performed By: #### Breanna LUX DATBMP #### [facility] [address] [place] [address] Dr. Pablo Sheth EGFR-AF ZIMBABWEAN >60 Normal >=60 [facility] Comment on above: Performed By: #### D JOSE J DATBMP #### [facility] [address] [place] [address] Dr. Pablo Sheth EGFR-NON AF ZIMBABWEAN >60 Normal >=60 [facility] Comment on above: Performed By: #### D JOSE J DATBMP #### [facility] [address] [place] [address] Dr. Pablo Sheth Glucose [Mass/Vol] 109 mg/dL Critically high 74-106 [facility] Comment on above: Performed By: #### D ATTTONYA DATBMP #### [facility] [address] [place] [address] Dr. Pablo Sheth HDL NORMAL > or = 60 mg/dl - LO W CARDIOVASCULAR RISK <40 mg/dl - HIGH CARDIOVASCULAR RISK Normal [facility] Comment on above: Performed By: #### D ATTTONYA DATBMP #### [facility] [address] [address] [address] Pablo Sheth LDL CALC NORMAL SEE BELOW Normal [facility] Comment on above: Result Comment: <100 mg/dl OPTIMAL 100 - 129 mg/dl NEAR OR ABOVE OPTIMAL 130 - 159 mg/dl BORDERLINE HIGH 160 - 189 mg/dl HIGH >190 mg/dl VERY HIGH Performed By: #### D JOSE J DATBMP #### [facility] [address] [address] [address] Pablo Sheth Potassium [Moles/Vol] 4.2 mmol/L Normal 3.5-5.1 [facility] Comment on above: Performed By: #### D JOSE J DATBMP #### [facility] [address] [address] [address] Pablo Sheth Sodium [Moles/Vol] 141 mmol/L Normal 136-145 [facility] Comment on above: Performed By: #### D JOSE J DATBMP #### [facility] [address] [address] [address] Pablo Sheth Triglyceride [Mass/Vol] 68 mg/dL Normal <=150 [facility] Comment on above: Performed By: #### D JOSE J DATBMP #### [facility] [address] [place] [address] Dr. Pablo Sheth Urea nitrogen [Mass/Vol] 26.0 mg/dL Critically high 7.0-18.0 [facility] Comment on above: Performed By: #### D JOSE J DATBMP #### [facility] [address] [place] [address] Dr. Pablo Sheth Urea nitrogen/Creatinin e [Mass ratio] 33.8 mg/mg Normal [facility] Comment on above: Performed By: #### D JOSE J DATBMP #### [facility] [address] [place] [address] Dr. Pablo Sheth VLDL CALC 13.6 mg/dL Normal [facility] Comment on above: Performed By: #### D JOSE J DATBMP #### [facility] [address] [place] [address] Dr. Pablo Sheth Physician Referralon 022 Physician Referral [id number] Normal [facility] Vital Signs Date Time Vital Sign Value Performing Clinician Facility 06-05-2024 14:11-0500 Body height 170.2 cm Geoff Walker DO Work Phone: [facility] 06-05-2024 14:11-0500 Body mass index (BMI) [Ratio] 27.72 kg/m2 Geoff Walker DO Work Phone: [facility] 06-05-2024 14:11-0500 Body weight 80.29 kg Geoff Moyershyann DO Work Phone: [facility] 04-15-2024 15:14-0500 Body height 170.18 cm Cornelius Garrison MD Work Phone: [facility] 04-15-2024 15:14-0500 Body mass index (BMI) [Ratio] 27.7 kg/m2 Cornelius Garrison MD Work Phone: [facility] 04-15-2024 15:14-0500 Body temperature 98.4 [degF] Cornelius Garrison MD Work Phone: [facility] 04-15-2024 15:14-0500 Body weight 80.28 kg Cornelius Garrison MD Work Phone: [facility] 04-15-2024 15:14-0500 Diastolic blood pressure 82 mm[Hg] Cornelius Garrison MD Work Phone: [facility] 04-15-2024 15:14-0500 Heart rate 83 /min Cornelius Garrison MD Work Phone: [facility] 04-15-2024 15:14-0500 Respiratory rate 20 /min Cornelius Garrison MD Work Phone: [facility] 04-15-2024 15:14-0500 SaO2% (BldA) [Mass fraction] 96 % Cornelius Garrison MD Work Phone: [facility] 04-15-2024 15:14-0500 Systolic blood pressure 128 mm[Hg] Cornelius Garrison MD Work Phone: [facility] 03-29-2024 08:56-0500 Body height 170.18 cm Cornelius Garrison MD Work Phone: [facility] 03-29-2024 08:56-0500 Body mass index (BMI) [Ratio] 27.2 kg/m2 Cornelius Garrison MD Work Phone: [facility] 03-29-2024 08:56-0500 Body weight 78.92 kg Cornelius Garrison MD Work Phone: [facility] 03-29-2024 08:56-0500 Diastolic blood pressure 86 mm[Hg] Cornelius Garrison MD Work Phone: [facility] 03-29-2024 08:56-0500 Heart rate 91 /min Cornelius Garrison MD Work Phone: [facility] 03-29-2024 08:56-0500 SaO2% (BldA) [Mass fraction] 95 % Cornelius Garrison MD Work Phone: [facility] 03-29-2024 08:56-0500 Systolic blood pressure 124 mm[Hg] Cornelius Garrison MD Work Phone: [facility] 03-11-2024 15:29-0500 Body height 170.18 cm Cornelius Garrison MD Work Phone: [facility] 03-11-2024 15:29-0500 Body mass index (BMI) [Ratio] 27.8 kg/m2 Cornelius Garrison MD Work Phone: [facility] 03-11-2024 15:29-0500 Body temperature 97.6 [degF] Cornelius Garrison MD Work Phone: [facility] 03-11-2024 15:29-0500 Body weight 80.73 kg Cornelius Garrison MD Work Phone: [facility] 03-11-2024 15:29-0500 Diastolic blood pressure 80 mm[Hg] Cornelius Garrison MD Work Phone: [facility] 03-11-2024 15:29-0500 Heart rate 82 /min Cornelius Garrison MD Work Phone: [facility] 03-11-2024 15:29-0500 Respiratory rate 20 /min Cornelius Garrison MD Work Phone: [facility] 03-11-2024 15:29-0500 SaO2% (BldA) [Mass fraction] 98 % Cornelius Garrison MD Work Phone: [facility] 03-11-2024 15:29-0500 Systolic blood pressure 134 mm[Hg] Cornelius Garrison MD Work Phone: [facility] 02-08-2024 13:55-0400 Body height 170.18 cm MD Cornelius Garrison Work Phone: [facility] 02-08-2024 13:55-0400 Body mass index (BMI) [Ratio] 27.9 kg/m2 MD Cornelius Garrison Work Phone: [facility] 02-08-2024 13:55-0400 Body weight 80.9 kg MD Cornelius Garrison Work Phone: [facility] 02-08-2024 13:55-0400 Diastolic blood pressure 78 mm[Hg] MD Cornelius Garrison Work Phone: [facility] 02-08-2024 13:55-0400 Heart rate 74 /min MD Cornelius Garrison Work Phone: [facility] 02-08-2024 13:55-0400 SaO2% (BldA) [Mass fraction] 96 % MD Cornelius Garrison Work Phone: [facility] 02-08-2024 13:55-0400 Systolic blood pressure 110 mm[Hg] MD Cornelius Garrison Work Phone: [facility] 01-24-2024 14:35-0400 Body height 170.18 cm MD Cornelius Garrison Work Phone: [facility] 01-24-2024 14:35-0400 Body mass index (BMI) [Ratio] 28.3 kg/m2 MD Cornelius Garrison Work Phone: [facility] 01-24-2024 14:35-0400 Body weight 82.21 kg MD Cornelius Garrison Work Phone: [facility] 01-09-2024 15:17-0400 Body height 167.64 cm [facility] 01-09-2024 15:17-0400 Body mass index (BMI) [Ratio] 28.2 kg/m2 [facility] 01-09-2024 15:17-0400 Body weight 79.37 kg [facility] 01-09-2024 15:17-0400 Diastolic blood pressure 91 mm[Hg] [facility] 01-09-2024 15:17-0400 Heart rate 76 /min [facility] 01-09-2024 15:17-0400 SaO2% (BldA) [Mass fraction] 97 % [facility] 01-09-2024 15:17-0400 Systolic blood pressure 135 mm[Hg] [facility] 11-01-2023 08:57-0400 Body height 167.64 cm [facility] 11-01-2023 08:57-0400 Body mass index (BMI) [Ratio] 28.2 kg/m2 [facility] 11-01-2023 08:57-0400 Body weight 79.37 kg [facility] 11-01-2023 08:57-0400 Diastolic blood pressure 90 mm[Hg] [facility] 11-01-2023 08:57-0400 Heart rate 63 /min [facility] 11-01-2023 08:57-0400 Systolic blood pressure 136 mm[Hg] [facility] 10-13-2023 09:19-0400 Body height 167.64 cm [facility] 10-13-2023 09:19-0400 Body mass index (BMI) [Ratio] 28 kg/m2 [facility] 10-13-2023 09:19-0400 Body weight 78.92 kg [facility] 10-13-2023 09:19-0400 Diastolic blood pressure 76 mm[Hg] [facility] 10-13-2023 09:19-0400 Heart rate 78 /min [facility] 10-13-2023 09:19-0400 SaO2% (BldA) [Mass fraction] 98 % [facility] 10-13-2023 09:19-0400 Systolic blood pressure 118 mm[Hg] [facility] 07-31-2023 10:09-0400 Body height 167.64 cm [facility] 07-31-2023 10:09-0400 Body mass index (BMI) [Ratio] 28.8 kg/m2 [facility] 07-31-2023 10:09-0400 Body weight 80.9 kg [facility] 07-31-2023 10:09-0400 Diastolic blood pressure 89 mm[Hg] [facility] 07-31-2023 10:09-0400 Heart rate 74 /min [facility] 07-31-2023 10:09-0400 Systolic blood pressure 138 mm[Hg] [facility] 12-22-2021 14:20-0400 Blood Pressure Location Mihaela CASAS [facility] [place] 12-22-2021 14:20-0400 Diastolic blood pressure 80 mm[Hg] Mihaela CASAS [facility] [place] 12-22-2021 14:20-0400 Heart rate 72 /min Mihaela CASAS [facility] [place] 12-22-2021 14:20-0400 Respiratory rate 16 /min Mihaela CASAS [facility] [place] 12-22-2021 14:20-0400 Systolic blood pressure 116 mm[Hg] Mihaela CASAS [facility] [place] Encounters Encounter Date Encounter Type Care Provider Facility Start: 06-06-2024 End: 06-06-2024 ambulatory Of[facility]ce[facility]-C [facility] Start: 06-05-2024 End: 06-05-2024 Office outpatient new 45 minutes Geoff Bundy Aaron DO Work Phone: [facility] Comment on above: Thyroid nodule (CMS/ HCC) (Primary Dx) Start: 06-05-2024 End: 06-05-2024 Bamboo flowsheet Geoff Walker DO Work Phone: [facility] Start: 06-05-2024 End: 06-05-2024 Bamboo flowsheet Geoff Walker DO Work Phone: [facility] Start: 06-05-2024 End: 06-05-2024 ambulatory GEOFF WALKER Not Available Start: 05-13-2024 End: 05-13-2024 ambulatory Cornelius Garrison MD Facility:[facility] Start: 05-10-2024 ambulatory Cornelius Garrison MD Work Phone: [facility] Work Phone: Start: 05-10-2024 Non-patient / Non-visit Cornelius Garrison MD [facility] Phone[facility] Work Phone: Start: 04-29-2024 End: 04-29-2024 ambulatory Cornelius Garrison MD Facility:[facility] Start: 04-22-2024 End: 04-22-2024 ambulatory Cornelius Garrison MD Work Phone: [facility] Work Phone: Start: 04-22-2024 End: 04-22-2024 Departed Referred Cornelius Garrison MD Work Phone: [facility] [place] [facility] Start: 04-22-2024 End: 04-22-2024 ambulatory Duong Oreilly MD Facility:[facility] Start: 04-15-2024 End: 04-15-2024 ambulatory Cornelius Garrison MD Work Phone: [facility] Work Phone: Start: 04-15-2024 End: 04-15-2024 Patient encounter procedure Cornelius Garrison MD Work Phone: [facility] Work Phone: Start: 04-01-2024 End: 04-01-2024 Patient encounter procedure Kane Keith DO Work Phone: [facility] Comment on above: Lumbosacral radiculo bakari (Primary Dx); Numbness and tingling Start: 04-01-2024 End: 04-01-2024 ambulatory KANEJASS PEREZ Not Available Start: 04-01-2024 End: 04-01-2024 Bamboo flowsheet Kane Keith DO Work Phone: [facility] Start: 04-01-2024 End: 04-01-2024 Bamboo flowsheet Kane Keith DO Work Phone: [facility] Start: 03-29-2024 End: 03-29-2024 Patient encounter procedure Cornelius Garrison MD Work Phone: [facility] Work Phone: Start: 03-25-2024 End: 03-25-2024 ambulatory Cornelius Garrison MD Facility:[facility] Start: 03-21-2024 Non-patient / Non-visit Cornelius Garrison MD Work Phone: [facility] Work Phone: Start: 03-11-2024 End: 03-11-2024 Patient encounter procedure Cornelius Garrison MD Work Phone: [facility] Work Phone: Start: 03-04-2024 Non-patient / Non-visit Cornelius Garrison MD Work Phone: [facility] Work Phone: Start: 03-04-2024 End: 03-04-2024 Patient encounter procedure Cornelius Garrison MD Work Phone: [facility] Work Phone: Start: 03-04-2024 End: 03-04-2024 ambulatory Cornelius Garrison Facility:[facility] Start: 02-23-2024 End: 02-23-2024 ambulatory [facility] Facility:[facility] Start: 02-19-2024 End: 02-19-2024 ambulatory [facility] Facility:[facility] Start: 02-13-2024 End: 02-13-2024 ambulatory Cornelius Garrison MD Facility:[facility] Start: 02-08-2024 End: 02-08-2024 ambulatory MD Cornelius Garrison Work Phone: [facility] Work Phone: Start: 02-08-2024 End: 02-08-2024 Patient encounter procedure MD Cornelius Garrison Work Phone: [facility] Work Phone: Start: 02-07-2024 Non-patient / Non-visit MD Mala Garrison Work Phone: [facility] Work Phone: Start: 02-01-2024 Non-patient / Non-visit Cornelius Garrison MD Work Phone: [facility] Work Phone: Start: 01-24-2024 End: 01-24-2024 ambulatory MD Cornelius Garrison Work Phone: [facility] Work Phone: Start: 01-24-2024 End: 01-24-2024 Patient encounter procedure MD Cornelius Garrison Work Phone: [facility] Work Phone: Start: 01-24-2024 End: 01-24-2024 Patient encounter procedure MD Cornelius Garrison Work Phone: [facility] Start: 01-24-2024 End: 01-24-2024 ambulatory MD Cornelius Garrison Work Phone: [facility] Work Phone: Start: 01-19-2024 Non-patient / Non-visit MD Mala Garrison Work Phone: [facility] Work Phone: Start: 01-19-2024 Non-patient / Non-visit MD Mala Garrison Work Phone: [facility] [place] Work Phone: Start: 01-09-2024 End: 01-09-2024 ambulatory [facility] Work Phone: Start: 01-09-2024 End: 01-09-2024 Patient encounter procedure [facility] Work Phone: Start: 11-01-2023 End: 11-01-2023 ambulatory [facility] Work Phone: Start: 11-01-2023 End: 11-01-2023 Patient encounter procedure [facility] Work Phone: Start: 10-13-2023 End: 10-13-2023 ambulatory [facility] Work Phone: Start: 10-13-2023 End: 10-13-2023 Patient encounter procedure [facility] Work Phone: Start: 07-31-2023 End: 07-31-2023 ambulatory [facility] Work Phone: Start: 07-31-2023 End: 07-31-2023 Patient encounter procedure [facility] Work Phone: Start: 05-26-2023 Non-patient / Non-visit [facility] [place] Work Phone: Start: 02-01-2022 End: 02-02-2022 ambulatory [facility] Start: 02-01-2022 End: 02-01-2022 Patient encounter procedure Mihaela Miguel Angel NILL General Surgery N[facility] [place] Start: 01-13-2022 Encounter for preprocedural laboratory examination DR MIHAELA CASAS [facility] Start: 01-12-2022 End: 01-13-2022 ambulatory Mihaela CASAS Facility:[id number] Start: 01-10-2022 End: 01-11-[address] MIHAELA CASAS Facility:[facility] Start: 01-10-2022 End: 01-11-2022 Encounter for preprocedural laboratory examination DR MIHAELA CASAS Facility:[facility] Start: 12-22-2021 End: 12-23-2021 ambulatory [facility] Start: 12-22-2021 End: 12-22-2021 Patient encounter procedure Mihaela CASAS General Surgery Nill/[facility] [place] Start: 12-17-2021 End: 12-18-2021 ambulatory CORNELIUS GARRISON PROVIDER Facility:[facility] Procedures Date Procedure Procedure Detail Performing Clinician Start: 04-01-2024 End: 04-01-2024 Needle emg ea extremty w/paraspinl area complete Kane Perez DO Work Phone: Start: 01-24-2024 X-ray of both knees, three views MD Anoop Garrison Work Phone: Start: 01-12-2022 Colonoscopy Geoff Comfortshyann DO Work Phone: Start: 01-12-2022 Colonoscopy Mihaela NILL Start: 01-12-2022 Esophagogastroduodenoscopy Mihaela NILL Bilateral oophorectomy Ebenezer shiv CASAS Colonoscopy Mihaela NILL Decompression of thoracic spine Mihaela NILL Discectomy of spine Mihaela NILL Comment on above: T12-L1 T12-L1 Esophagogastroduodenoscopy Jax KERNL Excision of bunion Mihaela HALL Repair of vaginal tear Ebenezer shiv NILL Tonsillectomy Mihaela KERNL Plan of Treatment Date Care Activity Detail Author Start: 01-13-2032 [facility] Start: 06-10-2025 End: 06-10-2025 Patient encounter procedure 06/10/2025 8:45 AM EST Office Visit [facility] [address] [place] [id number] Geoff Walker, DO [address] [place] [address] [facility] Start: 06-05-2024 End: 06-05-2024 Patient encounter procedure 06/05/2024 2:30 PM EST Office Visit [facility] [address] [place] [id number] Geoff Walker, DO [address] [place] [address] Arrived [facility] Comment on above: Arrived Start: 05-10-2024 Patient referral [facility] Work Phone: Start: 04-05-2024 Patient referral [facility] Work Phone: Start: 04-01-2024 End: 04-01-2024 Patient encounter procedure 04/01/2024 3:00 PM EST Procedure Visit [facility] [address] [place] [address] Kane PerezDO [address] [place] [address] Arrived [facility] Comment on above: Arrived Start: 01-24-2024 X-ray of both knees, three views XR knee BI 3V - NOT FOR ER USE [facility] Start: 01-24-2024 XR Knee - bilateral 3 Views [facility] Start: 01-22-2024 Pneumococcal Vaccine : 65+ Years (1 of 1 - PCV) Pneumococcal Vaccine: 65+ Years (1 of 1 - PCV) [facility] Start: 01-10-2024 Patient referral [facility] Work Phone: Start: 12-10-2023 Influenza vaccination Influenza Vacc ine (#1) [facility] Start: 1999 Screening for malign ant neoplasm of breast Mammogram [facility] Start: 1989 Screening for malign ant neoplasm of cervix [facility] Start: 01-22-1980 Screening for malign ant neoplasm of cervix Pap Smear [facility] Start: 1959 Screening for malign ant neoplasm of colon [facility] CT Unspecified body region [facility] CT Unspecified body region [facility] DXA Skeletal system.axial Views for bone density [facility] Patient Education Low back pain in adults [facility] Work Phone: Patient referral [facility] Work Phone: US Lower extremity v ein - right [facility] US Thyroid gland [facility] Immunizations Immunization Date Immunization Notes Care Provider Fa cility 03-11-2024 diphtheria, tetanus toxoids and acellular pertussis vaccine, unspecified formulation Cornelius Garrison MD Work Phone: [facility] 03-29-2021 COVID-19 mRNA, Comirnaty (Pfizer) [facility] 08-11-2020 COVID-19 mRNA, Comirnaty (Pfizer) [facility] 07-21-2020 COVID-19 mRNA, Comirnaty (Pfizer) [facility] 10-07-2018 diphtheria, tetanus toxoids and acellular pertussis vaccine, unspecified formulation [facility] 02-05-2014 tetanus and diphther ia toxoids, adsorbed, preservative free, for adult use (5 Lf of tetanus toxoid and 2 Lf of diphtheria toxoid) [facility] Payers Date Payer Category Payer Other GENERIC OTHER [id number] 2024 Unknown [id number] 2024 Medicare [id number] 2024 Medicare [id number] 2023 Unknown 2021 Unknown [id number] 1959 Self-pay [id number] 1959 Unknown [id number] 2.16.840.1.125237.3.579.2 .727 1959 Unknown [id number] 2.16.840.1.062246.3.579.2 .727 1959 Unknown [id number] 2.16.840.1.875242.3.579.2 .727 1959 Unknown [id number] 2.16.840.1.491211.3.579.2 .727 1959 Unknown [id number] 2.16.840.1.541365.3.579.2 .593 1959 Unknown [id number] 2.16.840.1.490827.3.579.2 .593 1959 Unknown [id number] 2.16.840.1.146025.3.579.2 .1259 1959 Unknown [id number] 2.16.840.1.023125.3.579.2 .1259 1959 Unknown [id number] 2.16.840.1.668476.3.579.2 .196 1959 Unknown [id number] 2.16.840.1.292639.3.579.2 .196 1959 Unknown [id number] 2.16.840.1.191943.3.579.2 .196 1959 Unknown [id number] 2.16.840.1.493135.3.579.2 .196 1959 Unknown [id number] 2.16.840.1.240066.3.579.2 .196 1959 Unknown [id number] 2.16.840.1.138554.3.579.2 .196 1959 Unknown [id number] 2.16.840.1.673362.3.579.2 .196 1959 Unknown [id number] 2.16.840.1.944040.3.579.2 .196 Private Health Insurance [employer] MCR PFFS G [id number] Unknown [id number] Unknown [id number] 2.16.840.1.507588.3.579.2 .593 Unknown MMO [employer] [id number] Social History Date Type Detail Facility Start: 12-22-2021 Heavy tobacco smoker (finding) [facility] [place] [facility] [place] Start: 06-05-2024 Female General [facility] michaelle Matta Start: 07-31-2023 End: 04-15-2024 Tobacco smoking status NHIS Smoker (finding) [facility] Start: 1960 Sex Assigned At Female F [facility] Tobacco smoking stat us NHIS Tobacco smoking consumption unknown [facility] Start: 1960 Sex assigned at Not on file [facility] Start: 04-15-2024 End: 05-10-2024 Sex Female (finding) [facility] Start: 06-05-2024 Tobacco smoking stat [facility] Smokes tobacco daily [facility] History of tobacco use Cigarette Smoker [facility] Start: 06-05-2024 Tobacco use and exposure Smokeless tobacco non-user [facility] Start: 06-05-2024 Alcoholic beverage intake Ex-drinker (finding) [facility] Start: 06-05-2024 History of Social function [facility] Functional Status Date Assessment Result Facility 12-22-2021 N/A [facility] [place] Clinical Notes 12-22-2021 to 06-05-2024 Geoff Walker, DO - 06/05/2024 2:30 PM NEEMA VincentT - 04/01/2024 3:00 PM EST Note Date & Type Note Facility 06-05-2024 History of Present illness Narrative Subjective Patient ID: HPI 64-year-old female referred for a right thyroid mass. This was found during a workup for something else. Ultrasound was done showing a 2.8 cm inferior based right thyroid mass. FNA was performed which came back as Ben Franklin III, Afirma testing was then done showing the possibility of malignancy to be less than 4 percent. Patient is completely asymptomatic. Has no pertinent family history of thyroid disorder, no risk factors for thyroid cancer. Sounds as if she never developed a left thyroid lobe. Review of Systems ROS The specialty specific review of systems is noncontributory except for that recorded in the intake questionnaire and /or described in the history of present illness. Objective ENT Physical Exam Physical Exam Constitutional: Appearance: Normal appearance. HENT: Head: Atraumatic. Ears: External ear shows no abnormality Bilateral ear canals are clear Tympanic membranes intact, no evidence of middle ear fluid or other pathology. Nose: External nose appears to be normal Nares patent. Septal deviation to the right No evidence of polyp, mass or pus bilaterally. Oral Cavity: No evidence of trismus Lips appear normal Dental good Tongue of normal size and configuration, floor of mouth mucosa clear. Buccal mucosa shows no evidence of ulceration, mass or other abnormality Hard palate soft palate mucosa intact with no evidence of mass, ulceration or other abnormality Uvula of normal size and configuration Oropharynx: Tonsils Posterior pharyngeal wall Neck: No evidence of palpable abnormality Thyroid without evidence of thyromegaly or mass. No cervical lymphadenopathy present. Cardiovascular: Rate and Rhythm: Normal rate and regular rhythm. . Skin: General: Skin is warm and dry. Neurological: General: No focal deficit present. Mental Status: alert and oriented to person, place, and time. THYROID ULTRASOUND EXAMINATION Indication: Thyroid nodule After informed consent was obtained the patient was placed supine on the examining table. Patient was asked to extend the neck. Topical ultrasound jelly was used. The right lobe of the thyroid gland measures _ 4.9 cm in greatest dimension. There is a small hypoechoic nodule superiorly with no internal vascularity microcalcification measuring 1.01 cm in greatest dimension. The larger nodules inferior, somewhat heterogeneous with no internal vascularity or calcification measuring 2.75 cm in greatest dimension. The isthmus is unremarkable. There is no appreciable thyroid tissue noted on the left side. There is no appreciable adenopathy in either lateral neck. Assessment/Plan Cristine was seen today for thyroid nodule. Diagnoses and all orders for this visit: Thyroid nodule (CMS/HCC) (Primary) Comments: I have recommended repeating the ultrasound in my office in 1 year. I will see her back in 1 year documented in this encounter [facility] 05-10-2024 Hospital Discharge instructions Ambulatory OrdersReferral to ENT Time Frame: 05/10/24, [facility] Work Phone: 04-01-2024 History of Present illness Narrative Images from the original note were not included. 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 documented in this encounter [facility] 03-11-2024 Evaluation note Diagnosis Onset Date Resolution [...] for lung cancer acute April 15 3:12pm intermediate (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 of 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 acute April 15, 2024 3:12pm Moderate persistent asthma, uncomplicated acute April 3:12pm [facility] Work Phone: 1(356) 375-153111-15-2024 NotePatient Education Materials Name: Cristine Manley Current [...] for continued care. Thank you for choosing [facility] for your care.[facility]10-31-2024 Evaluation note* Diagnosis Onset Date Resolution Status [...] for lung cancer acute April 15 3:12pm intermediate (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 of 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 acute April 15 3:12pm Moderate persistent asthma, uncomplicated acute April 15 3:12pm [facility] Work Phone: 1(584) 476-418610-16-2024 Evaluation note* Diagnosis Onset Date Resolution Status [...] persistent asthma, uncomplicated acute April 15 3:12pm [facility] Work Phone: 1(109) 738-989910-05-2022 NoteOPERATIVE NOTE OPERATION DATE: 01/12/2022 PREOPERATIVE DIAGNOSIS: [...] of the polyp. CC: Cornelius Garrison M.D.[facility] [place] [facility] [id number] NoteChief Complaint consultation for epigastric pain HPI [...] Chronic obstructive pulmonary dise (more content not included)...[facility] SystemComment on above:Result Comment: Electronically Signed By: RAJINDER TAVERAS, Mihaela Trujillo\Date and Time Signed: 12/22/21 17:34 EDTEvaluation + Plan note No data available for this section General Surgery [place] Evaluation note* Diagnosis Onset Date Resolution Status Lumbar radiculopathy, chronic acute [facility] Work Phone: Evaluation note* Diagnosis Onset Date Resolution Status Lumbar radiculopathy, chronic acute Headache acute Joint pain acute Tick bite acute [facility] Work Phone: Evaluation note* Diagnosis Onset Date Resolution Status Headache acute Joint pain acute Tick bite acute Chronic obstructive pulmonary disease, unspecified acute Lumbar radiculopathy, chronic acute [facility] Work Phone: Evaluation note* Diagnosis Onset Date Resolution Status Chronic obstructive pulmonary disease, unspecified acute Lumbar radiculopathy, chronic acute Bilateral knee pain acute COPD exacerbation acute Lumbar pain acute Lumbar radiculopathy, chronic acute Bilateral knee pain acute Primary osteoarthritis of both knees [facility] Work Phone: Evaluation note* Diagnosis Onset Date Resolution Status Bilateral knee pain acute COPD exacerbation acute Lumbar pain acute Lumbar radiculopathy, chronic acute Bilateral knee pain acute Primary osteoarthritis of both knees acute Menopause acute [facility] Work Phone: Evaluation note* Diagnosis Lumbosacral radiculopathy- Primary Thoracic or lumbosacral neuritis or radiculitis, unspecified Numbness and tingling Disturbance of skin sensation [facility] Diagnosis Thyroid nodule (CMS/HCC)- Primary Nontoxic uninodular goiter documented in this encounter [facility] Healthcare[facility]ospital Discharge instructions No data available for this section General Surgery [place] Progress note No data available for this section General Surgery [place] Reason for visit Narrative* Other Medical (Routine) - Closed Specialty Diagnoses / Procedures Referred By Contac t Referred To Contact Neurology Diagnoses Neuralgia and neuritis, unspecified Procedures OK NEEDLE EMG EA EXTREMTY W/PARASPINL AREA COMPLETE OK NERVE CONDUCTION STUDIES 9-10 STUDIES Ofelia Arceo PA-C [address] [place] [address] Phone: tel: fax: Cecil Fields MD [address] [place] [address] Phone: tel: fax: Referral ID Status Reason Start Date Expiration Date V isits Requested Visits Authorized [id number] Closed Perform Procedure 03/27/2024 09/23/2024 1 1 [facility] Healthcare Summary Purpose Family History [...] Back & Knee Pain-HIGH 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 COPD April 15, [...] for lung cancer April 15, 2024 3:12pm intermediate (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 of inhaled stero ids April [...] 11, 2024 End: March 11, 2024 Scott P Samsa , DO Attending Provider Active St art: March 11, 2024 End: March 11, 2024 Team Status: Active Member Role Status Dates Cornelius Garrison MD Primary Care Provider Active Start: March 21, 2024 Scottly Dennis , DO Attending Provider Active St [...] End: October 13, 2023 Brittanie Siu APRN GLOVE PRESSER-C Attending Provider Act onesimo Start: October 13, [...] Provider Active S tart: January 24, 2024 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 Start Date End Date Cornelius Garrison MD [address] [facility] [place] [id number] PCP - General Family Medicine 03/27/24 Ofelia Arceo MD [address] [place] [address] Referring Physician Internal Medicine 03/27/24 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 Start Date End Date Cornelius Garrison MD [address] [facility] [place] [id number] PCP - General Family Medicine 03/27/24 Ofelia Arceo MD [address] [place] [address] Referring Physician Internal Medicine 03/27/24 Team Status: Inactive Member Role Status Dates Cornelius Garrison MD Attending Provider Active St art: April 22, 2024 End: April 22, 2024 Team Status: Active Member Role Status Dates Cornelius Garrison MD Attending Provider Active St art: May 10, 2024 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 Start Date End Date Cornelius Garrison MD [address] [place] [id number] PCP - General Family Medicine 03/27/24 Ofelia rAceo MD [address] [place] [address] Referring Physician Internal Medicine 03/27/24 Geoff Walker DO [address] [place] [address] Otolaryngology 2/26/25 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 Start Date End Date Cornelius Garrison MD [address] [facility] [place] [address] PCP - General Family Medicine 03/27/24 Ofelia Arceo MD [address] [place] [address] Referring Physician Internal Medicine 03/27/24 Geoff Walker DO [address] [place] [address] Otolaryngology 06/05/24 INFORMATION SOURCE (unrecogn ized section and content) DATE CREATED AUTHOR 02/21/2022 [facility] DATE CREATED AUTHOR AUTHOR'S ORGANIZ ATION 04/01/2022 [facility] DATE CREATED AUTHOR AUTHOR'S ORGANIZ ATION 05/12/2024 [facility] DATE CREATED AUTHOR AUTHOR'S ORGANIZ ATION 06/07/2024 [facility] DATE CREATED AUTHOR AUTHOR'S ORGANIZ ATION 06/08/2024 [facility] Goals (unrecognized section and content) Goals may be documented in a n alternate section Reason for Visit (unrecogniz ed section and content) Reason Comments Thyroid Nodule New patient : thyroi d nodule / FNA done FOR RECORDS PERTAINING TO PATIENTS WHO ARE [...] BE BASED ON THE PRIMARY CLINICAL RECORDS. [employer] provides no warranty or guarantee of the accuracy or completeness of information in this document.
[2024-06-17 07:37] VITALS: BP 131/90; PULSE 71; TEMP 36.4; O2SAT 98
[2024-06-17] MEDS: BUPIVACAINE HCL 0.25% PF 25 MG/10 ML VIAL 8 ML INJ (08:20)
[2024-06-17] MEDS: LIDOCAINE HCL 2% 400 MG/20 ML MDV INJ (08:20)
--- NOTE | 2024-06-17 08:21 | W.PM.PROCNOT ---
Date of procedure: 06/17/24 Pre-op diagnosis: Pain due to lumbar spondylosis without myelopathy Post-op diagnosis: same as pre-op Procedure: Procedure: Bilateral L4-5, L5-S1 medial branch block Medications: Bupivacaine 0.25% 6cc The patient was seen and examined in the preoperative holding area.? An informed consent was obtained and placed on the chart.? The patient was brought to the medical procedure unit and placed in the prone position.? A timeout was completed verifying correct patient, procedure site, positioning, plan, and special equipment.? Using aseptic technique, the needle was placed at left L4. Under direct fluoroscopic visualization a Quincke-tipped spinal needle was advanced to the junction of the superior articulating process with the transverse process at the designated medial branch segment.? Preceded by negative aspiration, the above-mentioned injectate was placed in 1 mL aliquots.? The procedure was repeated at left L5, S1.? The needle was removed and insertion site was covered. The same procedure, at the same levels, was completed on the right side. The patient was taken to the postprocedural recovery area and monitored for an appropriate length of time before found suitable for discharge in the company of a responsible adult. Anesthesia: Local Surgeon: Duong Oreilly Pathology: none sent Condition: stable Disposition: no change
[2024-06-17 08:42] VITALS: BP 170/97; BP 174/107; PULSE 67; PULSE 68; O2SAT 98; O2SAT 99
== END 2024-06-17 08:27 | disposition home or self-care (01) ==
PROVIDERS: PCP Family Medicine; Visit Provider Anesthesiology
DX: M47.816 Spondylosis without myelopathy or radiculopathy, lumbar region (principal)
CPT/HCPCS: 64493; 64494; J0665

== ENCOUNTER 2024-06-19 08:11 | Outpatient (OUT) | payer MEDICARE, OTHER, SELFPAY ==
--- NOTE | 2024-06-19 08:15 | P.CN_ITS ---
Consult Note: HPI Data of Consult Patient: known to practice within the last 3 years Requesting Physician: Julee Reynoso NP Primary Care Provider: Celia Blank MD Consult Narrative Reason for consult: f/u Narrative: Cristine Manley a pleasant 64 year old female has failed PT greater than 6 weeks, heat/ice, tylenol, ibuprofen. currently utilizing tizanidine, ibuprofen, hydrocodone through PCP. hx of lumbar surgery, recently evaluated by NS who did not recommend further intervention. Recently underwent bilateral L4-5 L5-S1 facet medial branch block #1 with >80% improvement in functional ability and pain immediately following and hours after the procedure. Preop pain up to 10/10 post op pain 3/10 with significant pain relief while standing, walking, lifting, twisting. 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 (ICD-10) Asthma ?J45.909 - Unspecified asthma, uncomplicated (ICD-10) Surgical History H/O fine needle aspiration with imaging guidance ?Z98.890 - Other specified postprocedural states (ICD-10) Status post discectomy ?Z98.890 - Other specified postprocedural states (ICD-10) History of bunionectomy ?Z98.890 - Other specified postprocedural states (ICD-10) H/O bilateral oophorectomy ?Z90.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, bilateral (ICD-10) History of tonsillectomy ?Z90.89 - Acquired absence of other organs (ICD-10) Social History Little interest or pleasure in doing things: not at all Feeling down, depressed, or hopeless: not at all Meds Home Medications and Allergies Home Medications ?Medication ?Instructions ?Recorded ?Confirmed ?Type albuterol sulfate 2.5 mg/3 mL 2.5 mg inhalation Q4H PRN 01/19/24 06/17/24 History (0.083 %) solution for nebulization shortness of breath or wheezing albuterol sulfate 90 mcg/actuation 2 puff inhalation Q4H 01/19/24 06/17/24 History aerosol inhaler hydrocodone 5 mg-acetaminophen 325 1 tab PO Q8H 01/19/24 06/17/24 History mg tablet tizanidine 4 mg tablet 4 mg PO Q8H 01/19/24 06/17/24 History omeprazole 20 mg capsule,delayed 20 mg PO DAILY 02/01/24 06/17/24 History release bupropion HCl 150 mg 24 hr tablet, 150 mg PO DAILY 04/22/24 06/17/24 History extended release fluticasone fur. 200 mcg-umeclid 1 inh inhalation DAILY 04/22/24 06/17/24 History 62.5 mcg-vilant 25 mcg inhalat.powder (Trelegy Ellipta) Allergies Allergy/AdvReac Type Severity Reaction Status Date / Time Sulfa (Sulfonamide Allergy Unknown Unknown Verified 06/17/24 07:41 Antibiotics) levofloxacin (From Levaquin) Allergy Rash Verified 06/17/24 07:41 acetaminophen (From Percocet) AdvReac Intermediate Vomiting Verified 06/17/24 07:41 oxycodone (From Percocet) AdvReac Intermediate Vomiting Verified 06/17/24 07:41 Exam Constitutional Documenting provider has reviewed patient's vital signs: yes Common normals: no apparent distress, oriented x3, healthy appearing, alert and well nourished General appearance: cooperative [facility] Common normals: normocephalic, hearing grossly normal bilaterally and moist oral mucous membranes Head and scalp: normocephalic Eye Common normals: PERRL Pupil: PERRL Neck & C-Spine Common normals: full ROM General: normal visual inspection Chest Common normals: inspection of chest normal Respiratory Common normals: normal respiratory effort, no retractions and no use of accessory muscles Back & Pelvis Lumbar spine/lower back: ROM limited, pain with ROM, lumbar spinal tenderness and straight leg raise negative bilaterally; no paraspinal muscle tenderness and no paraspinal muscle spasm Sacroiliac joints: SI joints normal Other: left sij negative nicol(patricks), gaenslens, thigh thrust, compression test positive facet loading L2-S1 negative radiculopathy on exam, sensation intact BLE Neuro Common normals: oriented x3, CN's II-XII intact bilaterally, moves all extremities, no focal motor deficits, no sensory deficits noted and deep tendon reflexes 2+ bilaterally Sensorium/orientation: alert Motor exam: strength 5/5 throughout and no movement abnormalities noted Psych Common normals: mental status grossly normal, thought process normal, cooperative, affect normal, speech normal and activity/motor behavior normal Speech: normal speech Thought process: normal thought process Results Additional Findings Additional findings: If on a controlled substance or opioids, I have checked an [place] report on this patient and there are no aberrancies noted in the prescribing history.??If on a controlled substance or opioid a drug screen was completed and reviewed within the last year, and if there has not been a drug screen completed we ordered one today to monitor higher risk, state monitored pain medication use. As part of providing excellent, safe, comprehensive care, the following was completed at our patient's visit: 1. A medication reconciliation and review to ensure accurate knowledge of current/active medications, including asking our patients to inform us about any [id number] medications or herbal remedies/nutritional supplements/alternative remedies. 2. A review to specifically ensure our patients have had annual screening for screening for depression, screening for tobacco use, and screening for unhealthy alcohol use. For concerning screenings had a discussion with the patient, provided patient education, and recommended follow-up with primary care provider when appropriate. If patient noted with a risk of falling, they received education on strength, gait, and balance training to prevent future risk of falling. Portions of this note may have been carried over from the previous visit and updated as appropriate. Please note this office utilizes paper charting in addition to the electronic medical record. A list of current medications, vitals, and PMH is available there as the clinical staff outside of myself do not have access to [employer] charting during the clinic day operations. As part of providing quality comprehensive care the current medications, vitals, and PMH were reviewed in the paper chart. Assessment and Plan Assessment and Plan (1) Lumbar facet arthropathy: Assessment and Plan: The patient has had over 3 months of moderate to severe low back pain with functional impairment and inadequate response to conservative care including NSAIDS (unless there are contraindication such as concurrent blood thinners), multiple oral or topical pain medications, and home exercise program/physical therapy.? Patient has completed >6 weeks of guided home exercise program and/or formal physical therapy program without relief of their symptoms.? I have reviewed the imaging of the lumbar spine and no red flags were identified.? The imaging reveals radiographic findings consistent with lumbar facet arthropathy The Oswestry Disability Index was completed, and the patient scored a 40%.? The patient noted the following:?? moderate to severe pain, pain with walking more than 0.5 miles, sleeping less than 6 hours due to pain, social life and travel impacted by pain We discussed the risks and benefits of the procedure with the patient, and we are NOT planning on using sedation as outlined in the guidelines from Medicare unless there is a documented reason that sedation would be strongly recommended.?? ?The procedure will be completed with fluoroscopic guidance.? (2) Lumbar stenosis with neurogenic claudication: (3) Failed back syndrome: (4) Sacroiliitis: Plan bilateral L4-S1 MBB x2 working towards RFA for axial low back pain secondary to lumbar facet arthropathy not interested in spinal cord stimulation continue HEP as tolerated f/u after each injection
--- OUTSIDE RECORDS SUMMARY | 2024-06-19 08:32 | XMS_ITS | CCD ---
Author Organization [facility] CliniSyne Care Team Providers Care Automobile Brakes Bonder Name Role Phone CORNELIUS GARRISON Primary Care Physician BLADIMIR PROVIDERCORNELIUS Referring Unavailab le NILL, Mihaela [...] Unavailable MD Cornelius Garrison Primary Care Provider [phone] DO Alexandro Galvez Attending Provider [phone] Cornelius Garrison MD Primary Care Provider King NITIN, Ofelia Unavailable Cornelius Garrison MD Primary Care Provider [phone] Alexandro Galvez DO Attending Provider [phone] Cornelius Garrison MD Attending Provider Cornelius Garrison MD Primary Care Provider Cornelius Garrison Admitting Unavailable Cornelius Garrison Attending Unavailable Cornelius Garrison Admitting Unavailable Cornelius Garrison Attending Unavailable Cornelius Garrison Primary Care Unavailable Alexandro Galvez Attending Unavailable Alexandro Galvez Admitting Unavailable Cornelius Garrison Primary Care Unavailable Geoff Walker DO Unavailable [phone] GEOFF WALKER Attending Unavailable CORNELIUS GARRISON Referring Unavailable KANE PEREZ Attending Unavailable OFELIA ARCEO Referring Unavailable Denilson TAVERAS, Duong Wagoner Attending Unavailable Bladimir TAVERAS, Cornelius [facility] Unava ilable Adis PA-C, Ofelia Grace Attending Unavailab Tuan TAVERAS, Cornelius [facility] Unava stephany Garrison MD, [facility] Unava ilable Adis PA-C, Ofelia Grace Attending Unavailab jass Garrison MD, [facility] Unava stephany Garrison MD, Cornelius Whyte Referring Unava ilable Adis PA-C, Ofelia Grace Attending Unavailab le Adis PA-C, Ofelia Grace Admitting Unavailab le Adis PA-C, Ofelia Grace Attending Unavailab jass Garrison MD, Cornelius [facility] Unava ilable Adis PA-C, Ofelia Grace Attending Unavailab jass Garrison MD, [facility] Abhi Garrison MD, [facility] Gelava ilable Denilson TAVERAS, Duong Wagoner Attending Unavailable Bladimir TAVERAS, [facility] Unava ilable Denilson TAVERAS, Duong Wagoner Attending Unavailable Allergies Allergy Classification Reported Allergen(s) Allergy Type Date of Onset Reaction(s) Facility (3 sources) Acetaminophen / oxyCODONE; Translations: [acetaminophen-oxy codone] Drug Allergy Nausea (finding) [facility] [place] (6 sources) Alendronate; Translations: [alendronate] Drug Allergy 03-29-20 Muscle pain (finding) [facility] [place] (13 sources) Clarithromycin; Translations: [clarithromycin] Drug Allergy 07-31-19 Unknown (qualifier value) [facility] [place] (14 sources) levoFLOXacin; Translations: [levofloxacin] Drug Allergy 07-31-19 Eruption of skin (disorder) [facility] [place] (4 sources) Sulfonamides (Antibiotic); Translations: [sulfa drugs] Drug allergy Unknown (qualifier value) [facility] [place] (1 source) Acetaminophen / oxyCODONE Drug Allergy 03-25-20 16 [facility] (1 source) Alendronate Drug Allergy 03-18-20 [facility] (1 source) Clarithromycin Drug Allergy 03-25-20 16 [facility] (1 source) levoFLOXacin Drug Allergy 03-25-20 16 [facility] (1 source) Quinolones (Antibiotic) Drug allergy (disorder) 03-25-20 16 [facility] (1 source) Sulfonamides (Antibiotic) Drug allergy (disorder) 05-01-19 14 [facility] (1 source) Acetaminophen Drug Allergy 07-31-19 24 [facility] (10 sources) Alendronate Drug Allergy 07-31-19 24 [facility] (10 sources) oxyCODONE Drug Allergy 07-31-19 24 [facility] (10 sources) Sulfonamides (Antibiotic) Allergy to substance 07-31-19 Comment:as a young child, pt. cannot recall reaction [facility] (10 sources) Biaxin XL *MACROLIDES* Allergy to substance 07-28-19 24 [facility] (3 sources) Acetaminophen / oxyCODONE Drug Allergy 06-05-19 25 Nausea Only [facility] (3 sources) Clarithromycin Allergy to substance 03-29-20 24 [facility] (3 sources) Lactobacillus acidophilus Drug Allergy 06-05-19 25 [facility] (3 sources) Quinolones (Antibiotic) Drug Intolerance 03-11-20 10 Rash [facility] (3 sources) Sulfonamides (Antibiotic) Drug Intolerance 03-11-20 10 [facility] (1 source) Ciprofloxacin; Translations: [Cipro] Drug Allergy [facility] (1 source) symbalta; Translations: [symbalta] Propensity to adverse reactions to drug (disorder) [facility] Medications Current Medications Medication Drug Class(es) [...] 1 tablet by mouth at bedtime HYDROcodone-acetaminophen ([place]) 5-325 MG tablet Take 1 tablet by [...] Rinse after use Start: 03-29-2024 End: 04-15-2024 Aprmkhauofk-Wwuldcgtk-Fvtipq er (Trelegy Ellipta) 200-62.5-25 mcg blister with device Discontinued 1 INH INHALATION Daily 60 March 29, 2024 9:38am April 15, 2024 3:41pm Rinse after use Start: 03-11-2024 End: 03-29-2024 Cwnviapvzye-Vnjvnssau-Rcewhp er (Trelegy Ellipta) 200-62.5-25 mcg blister with [...] March 29, 2024 9:04am 60 actuat tiotropium 0.27184 mg/actuat inhalation spray (9 sources) Anticholinergic Start: 02-08-2024 End: 03-11-2024 take 1 puff(s) by inhalation once daily in the morning Tiotropium [place] (Spiriva Respimat) 1.25 mcg/actuation mist Discontinued 2 [...] 01-17-2022 Chronic Other aftercare (1 source) 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 She also has [...] therapy without benefit. She is established with [facility] pain [facility] undergoing left L4-5 CARLOS and [...] though does not resolve. Oral narcotics including [place] which makes pain tolerable though does not resolve. Topical agents including lidocaine patches and Bengay with limited benefit. Pain management injection modalities years ago with temporary benefit lasting only a few days. Physical therapy years ago without significant benefit. Chiropractic manipulation x 1 visit without benefit therefore patient never returned. Activity modification [1] Pain management injection modalities through [place]. Initial injection targeted left L4-5 which she [...] No si (more content not included)... Normal [facility] Provider Letteron 06-06-2024 Provider Letter (Inserted Image. Gela ble to display) Cornelius Garrison MD [address] [place] [address], [facility] [place] [address] Re: Cristine Manley Date of Visit: 06/06/2024 Dear Cornelius Garrison MD, This patient was recently seen in the neurosurgical office. Please see attached note for further details. Let me know if you have any questions or concerns. Sincerely, DEMARCUS Gan Providers: The following document(s) were included in the letter: June 06, 2024 09:36:40 EST - (06/06/2024) Neurosurgery Office Visit Note Normal [facility] Dominick 04-22-2024 L -------- -------- Specimen: [id number] Received: 04/24/24 Status: OMAR Hayes Num: [id number] Spec Type: Cytology Subm Dr: Cornelius Garrison MD Tissues: A FNA SLIDES NOPATH (INF RT THY) Procedures: Cyto Int and Re, PAPSTN/5 -------- Age/ Patient Sex Location Account Attending Physician -------- ManleyCristine Hairston 64/F LABELL [id number] Cornelius Garrison MD -------- SPEC NUM: [id number] RECD: 04/24/24 STATUS: OMAR HAYES NUM: [id number] TORI: 04/22/24- SUBM DR: Cornelius Garrison MD ENTERED: 04/24/24 [facility] DR: Les Lee MD SPEC TYPE: Cytology DEPT: KEN NC ENTERED BY: [id number] RECV BY: [id number] ORDERED: Cyto Int and Re, PAPSTN/5 ORDERED: Cyto Int and Re, PAPSTN/5 Supplemental Report Addendum 1 Entered: 05/10/246272 Supplemental for findings of [facility] GENOMIC SEQUENCING ACAD[facility] AFFAIRS DIRECTOR: -Ensemble Study Specialist -Benign (risk of malignancy 4%) -Xpression [place] -N/A -Other Classifiers -BRAF p. V600E c. 1799T>A: Negative -RET/PTC1: Not detected -RET/PTC3: Not detected -MTC: Negative -Parathyroid: Negative TERT PROMOTER REGION: -Tests (2) not Performed (TNP) -------- Specimen: [id number] Received: 04/24/24 Status: BASIAPalma Hayes Num: [id number] Spec Type: Cytology Subm Dr: Cornelius Garrison MD Tissues: A FNA SLIDES NOPATH (INF RT THY) Procedures: Cyto Int and Re, PAPSTN/5 -------- Patient: Cristine Manley [id number] (Continued) -------- Specimen: [id number] Received: 04/24/24 (Continued) Supplemental Report (Continued) Signed (signature on file) Gail Sheth MD 04/24/24 1439 -------- Specimen: [id number] Received: 04/24/24 Status: OMAR Hayes Num: [id number] Spec Type: Cytology Subm Dr: Cornelius Garrison MD Tissues: A FNA SLIDES NOPATH (INF RT THY) Procedures: Cyto Int and Re, PAPSTN/5 -------- Patient: Cristine Manley [id number] (Continued) -------- Specimen: [id number] Received: 04/24/242676 (Continued) Supplemental Report (Continued) Addendum Signed (signature on file) Pedro-Diogenes Sheth MD 05/10/24 1132 -------- Pathological Diagnosis Right thyroid nodule, inferior, FNA cytology -Adequate follicular groups in the ThinPrep smear, appropriate for assessment, consisting of small to occasionally slightly larger and reactive follicular cells, suggesting dimorphic population and the category 3 Kopperl system, atypia of the undetermined significance, otherwise [...] performed supporting the above interpretation CPT Codes 21456 -------- -------- Specimen: [id number] Received: 04/24/24 Status: OMAR Hayes Num: [id number] Spec Type: Cytology Subm Dr: Cornelius Garrison MD Tissues: A FNA SLIDES NOPATH (INF RT THY) Procedures: Cyto Int and Re, PAPSTN/5 -------- Patient: Cristine Manley [id number] (Continued) -------- Signed (signature on file) Gail Sheth MD 04/24/24 1439 Normal [facility] EMG 2 Extremitieson 04-01-20 EMG/NCS BLE Right L5/S1 radic Francisco S1/2 radic [facility] NVC 9-10 Nerveson 04-01-2024 EMG/NCS BLE Right L5/S1 radic Francisco S1/2 radic [facility] Provider Letteron 03-26-2024 Provider Letter (Inserted Image. Gela ble to display) Cornelius Garrison MD [facility], [facility] [place] [address] Re: Cristine Manley Date of Visit: 03/25/2024 Dear Cornelius Garrison MD, This patient was recently seen in the neurosurgical office. Please see attached note for further details. Let me know if you have any questions or concerns. Sincerely, DEMARCUS Gan Providers: The following document(s) were included in the letter: March 25, 2024 17:40:13 EST - (03/25/2024) Neurosurgery Office Visit Note Normal [facility] Neurosurgery Office/Clinic N oteon 03-25-2024 Neurosurgery Office/Clinic Note Chief Complaint CT thoracic, lumbar, XR lumbar, hips and neck review History of Present Illness The patient is a pleasant 64-year-old right-handed female with history of chronic nicotine use, asthma and recently diagnosed COPD for which she is planned to see a choir director in the near future. She also has [...] though does not resolve. Oral narcotics including [place] which makes pain tolerable though does not [...] increases slightl (more content not included)... Normal [facility] Basophils Auto (Bld) [#/Vol] on 03-21-2024 Basophils (Bld) [#/Vol] Automated basophil count 0.0-0.1 [facility] Basophils/100 WBC Auto (Bld) on 03-21-2024 Basophils/100 WBC (Bld) Automated basophil % 0.2-2.0 [facility] Eosinophils/100 WBC Auto (Bl d)on 03-21-2024 Eosinophils/100 WBC (Bld) Automated eosinophil % 0.9-7.0 [facility] Erythrocyte distribution wid th Auto (RBC) [Ratio]on 03-21-2024 Erythrocyte distribution width (RBC) [Ratio] Erythrocyte distribution width [Ratio] by Automated count 11.0-15.0 [facility] Hematocrit Auto (Bld) [Volum e fraction]on 03-21-2024 Hematocrit (Bld) [Volume fraction] Hematocrit [Volume Fraction] of Blood by Automated count 36.0-48.0 [facility] Hemoglobin [Mass/volume] in Bloodon 03-21-2024 Hemoglobin (Bld) [Mass/Vol] Hemoglobin [Mass/volume] in Blood 12.0-16.0 [facility] IgE [Units/volume] in Serum or Plasmaon 03-21-2024 IgE Qn IgE [Units/volume] i n Serum or Plasma 6-495 [facility] Comment on above: Performed at: - [address] [id number] Director: Levi Pedroza MD, Phone: [phone] Laboratory - Hematology and Cell countson 03-21-2024 Immature granulocytes/100 WBC (Bld) 0.1 % 0.0-0.5 [facility] Leukocytes [#/volume] correc shant for nucleated erythrocytes in Blood by Automated counon 03-21-2024 WBC corrected for nucl RBC Auto (Bld) [#/Vol] Leukocytes [#/volume] corrected for nucleated erythrocytes in Blood by Automated coun 4.0-11.0 [facility] Lymphocytes Auto (Bld) [#/Vo l]on 03-21-2024 Lymphocytes (Bld) [#/Vol] Lymphocytes [#/volume] in Blood by Automated count 1.2-3.8 [facility] Lymphocytes/100 WBC Auto (Bl d)on 03-21-2024 Lymphocytes/100 WBC (Bld) Lymphocytes/100 leukocytes in Blood by Automated count Low 20.5-60.0 [facility] MCH Auto (RBC) [Entitic mass ]on 03-21-2024 MCH (RBC) [Entitic mass] MCH [Entitic mass] by Automated count 26.7-34.0 [facility] MCHC Auto (RBC) [Mass/Vol]on 03-21-2024 MCHC (RBC) [Mass/Vol] MCHC [Mass/volume] by Automated count 29.9-35.2 [facility] MCV Auto (RBC) [Entitic vol] on 03-21-2024 MCV (RBC) [Entitic vol] MCV [Entitic volume] by Automated count 81.0-99.0 [facility] Monocytes Auto (Bld) [#/Vol] on 03-21-2024 Monocytes (Bld) [#/Vol] Automated blood monocyte count 0.3-0.8 [facility] Monocytes/100 WBC Auto (Bld) on 03-21-2024 Monocytes/100 WBC (Bld) Automated monocyte % 1.7-12.0 [facility] Neutrophils Auto (Bld) [#/Vo l]on 03-21-2024 Neutrophils (Bld) [#/Vol] Neutrophils [#/volume] in Blood by Automated count High 1.4-6.5 [facility] Neutrophils/100 WBC Auto (Bl d)on 03-21-2024 Neutrophils/100 WBC (Bld) Automated neutrophil % 43.0-75.0 [facility] No Panel Informationon 03-21 Eosinophils # (Auto) 0.1 10 3/uL 0.0-0.7 [facility] Immature Granulocyte # (Auto) 0.01 10 3/uL 0.00-0.03 [facility] Platelet mean volume Auto (B ld) [Entitic vol]on 03-21-2024 Platelet mean volume (Bld) [Entitic vol] Platelet mean volume [Entitic volume] in Blood by Automated count 9.5-13.5 [facility] Platelets Auto (Bld) [#/Vol] on 03-21-2024 Platelets (Bld) [#/Vol] Platelets [#/volume] in Blood by Automated count 150-450 [facility] RBC Auto (Bld) [#/Vol]on RBC (Bld) [#/Vol] Erythrocytes [#/volu me] in Blood by Automated count 4.20-5.40 [facility] Provider Letteron 02-29-2024 Provider Letter (Inserted Image. Gela ble to display) Cornelius Whittaker [address] [facility], [place] [address] Re: Cristine Manley Date of Visit: 02/23/2024 Dear Cornelius Garrison MD, Please see attached results on this mutual patient you have with [facility] Result Name Current Result CT Spine Thoracic/Lumbar Myelogram w/Con 02/23/2024 Let me know if you have any questions or concerns. Sincerely, Jaclyn Bliss [facility] [employer] Income Portfolio Manager C C Providers: Normal [facility] CT Spine Thoracic/Lumbar Mye logram w/Conon 02-27-2024 [...] Electronically Signed in Other Vendor System) Normal [facility] PTon 02-23-2024 INR Coag (PPP) [Relative time] 1.0 {INR} Normal <=3.5 [facility] Comment on above: Result Comment: INR has no normal range. INR Therapeutic range is: 2.0-3.0 (AF, CVA, TIAs, DVT prophylaxis, acute DVT) 2.5-3.5 ([facility] heart valves, recurrent thrombosis/emboli) Performed By: #### P TINR ####[facility] [place] [address] PT Coag (PPP) [Time] 10.3 s Normal 9.2-12.0 [facility] Comment on above: Performed By: #### P TINR ####[address] [address] PTTon 02-23-2024 aPTT Coag (Bld) [Time] 24.8 s Normal 19.5-28.2 [facility] Comment on above: Performed By: #### P TT ####[address] [address] Platelet Counton 02-23-2024 Platelet 300 x10*3/mcL Normal 150-450 [facility] Comment on above: Performed By: #### P LTS #### [address] [address] XR Hip 2-3 Views Lefton 02-08 XR [...] Electronically Signed in Other Vendor System) Normal [facility] XR Myelography Spine 2 or Mo re [facility] 02-23-2024 XR Myelography Spine 2 or More [...] Electronically Signed in Other Vendor System) Normal [facility] XR Spine Cervical 4 or 5 [facility] 02-23-2024 XR Spine Cervical 4 or 5 [...] Vendor System) [facility] XR Spine Lumbosacral Bending 2-3 Viewson 02-23-2024 [...] Electronically Signed in Other Vendor System) Normal [facility] Neurosurgery Office/Clinic N sherry 02-13-2024 Neurosurgery Office/Clinic Note Chief Complaint Back lumbar pain radiculopathy consult History of Present Illness The patient is a pleasant 64-year-old right-handed female with history of chronic nicotine use, asthma and recently diagnosed COPD for which she is planned to see a choir director in the near future. She also has [...] though does not resolve. Oral narcotics including [place] which makes pain tolerable though does not [...] Newly diagnosed COPD, scheduled to see a choir director in the near future Chronic nicotine use [...] marijuana use. 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 She denies any Worker's Comp. related claims regarding today's visit FAMILY HISTORY: Lung cancer: Father Diabetes mellitus: Mother Hypertension: Mother Review of Systems Constitutional: [No fevers, chills, sweats] Eye: [No recent visual problems] ENMT: [ (more content not included)... Normal [facility] Provider Letteron 02-13-2024 Provider Letter (Inserted Image. Gela ble to display) Cornelius Garrison MD [address] [place] [address], [facility] [place] [address] Re: Cristine Manley Date of Visit: 02/13/2024 Dear Cornelius Garrison MD, This patient was recently seen in the neurosurgical office. Please see attached note for further details. Let me know if you have any questions or concerns. Sincerely, DEMARCUS Gan Providers: The following document(s) were included in the letter: February 13, 2024 09:39:53 EST - (02/13/2024) Neurosurgery Office Visit Note Normal [facility] XR knee BI 3V - NOT FOR ER U Sanam 01-24-2024 XR knee BI 3V - NOT FOR ER USE [facility] [place] [facility] [address] [facility] [place] [address] XRay Report Signed Patient: Cristine Manley MR#: [id number] 53 : 1960 Acct:[id number] Age/Sex: 64 / F ADM Date: 01/24/24 Loc: [facility]XD Room: Type: [facility] Attending Dr: Alexandro Galvez DO Copies to: [...] Sunday Graham M.D.01/24/2024 3:45 PM Dictation Location: [place] [address] Transcribed By: [facility] 01/24/24 1545 Dictated By: Sunday Graham II, MD 01/24/24 154 Signed By: 01/24/24 154 Normal [facility] Basophils Auto (Bld) [#/Vol] on 01-19-2024 Basophils (Bld) [#/Vol] 0.0 10 3/uL 0.0-0.1 [facility] Basophils (Bld) [#/Vol] Automated basophil count 0.0-0.1 [facility] Basophils/100 WBC Auto (Bld) on 01-19-2024 Basophils/100 WBC (Bld) 0.2 % 0.2-2.0 [facility] Basophils/100 WBC (Bld) Automated basophil % 0.2-2.0 [facility] Eosinophils/100 WBC Auto (Bl d)on 01-19-2024 Eosinophils/100 WBC (Bld) 4.3 % 0.9-7.0 [facility] Eosinophils/100 WBC (Bld) Automated eosinophil % 0.9-7.0 [facility] Erythrocyte distribution wid th Auto (RBC) [Ratio]on 01-19-2024 Erythrocyte distribution width (RBC) [Ratio] 13.1 % 11.0-15.0 [facility] Erythrocyte distribution width (RBC) [Ratio] Erythrocyte distribution width [Ratio] by Automated count 11.0-15.0 [facility] Estimated glomerular filtrat ion rate (GFR) non- Americanon 01-19-2024 GFR/1.73 sq M.predicted among non-blacks MDRD (S/P/Bld) [Vol rate/Area] mL/min/{1.73_m2} >=60 mL/min/1.73 m 2 [facility] GFR/1.73 sq M.predicted among non-blacks MDRD (S/P/Bld) [Vol rate/Area] Estimated glomerular filtration rate (GFR) non- >=60 mL/min/1.73 m 2 [facility] Fibrin D-dimer [Presence] in Platelet poor plasma by Latex agglutinationon 01-19-2024 Fibrin D-dimer LA Ql (PPP) 0.43 mg/L FEU <=0.59 [facility] Comment on above: Increases in D-Dimer [...] poor plasma by Latex agglutination <=0.59 [facility] Comment on above: Increases in D-Dimer [...] (Bld) [Volume fraction] 39.5 % 36.0-48.0 [facility] Hematocrit (Bld) [Volume fraction] Hematocrit [Volume Fraction] of Blood by Automated count 36.0-48.0 [facility] Hemoglobin [Mass/volume] in Bloodon 01-19-2024 Hemoglobin (Bld) [Mass/Vol] 12.8 g/dL 12.0-16.0 [facility] Hemoglobin (Bld) [Mass/Vol] Hemoglobin [Mass/volume] in Blood 12.0-16.0 [facility] Laboratory - Chemistry and C hemistry - challengeon 01-19-2024 Calcium [Mass/Vol] 9.0 mg/dL 8.5-10.1 [facility] Chloride [Moles/Vol] 105 mmol/L 98-107 [facility] CO2 [Moles/Vol] 28.7 mmol/L 21.0-32.0 [facility] Creatinine [Mass/Vol] 0.92 mg/dL 0.55-1.02 [facility] GFR/1.73 sq M.predicted MDRD (S/P/Bld) [Vol rate/Area] mL/min/{1.73_m2} >=60 mL/min/1.73 m 2 [facility] Glucose [Mass/Vol] 78 mg/dL 74-106 [facility] Potassium [Moles/Vol] 4.0 mmol/L 3.5-5.1 [facility] Sodium [Moles/Vol] 138 mmol/L 136-145 [facility] Urea nitrogen [Mass/Vol] 27.0 mg/dL High 7.0-18.0 [facility] Urea nitrogen/Creatinin e [Mass ratio] 29.3 mg/mg [facility] Laboratory - Hematology and Cell countson 01-19-2024 Immature granulocytes/100 WBC (Bld) 0.3 % 0.0-0.5 [facility] Laboratory - Microbiology an d Antimicrobial susceptibilityon 01-19-2024 SARS-CoV-2 (COVID-19) RNA JOSELUIS+probe Ql (Unsp spec) Negative NEGATIVE [facility] Comment on above: This test has [...] [#/Vol] 12.6 10 3/uL High 4.0-11.0 [facility] WBC corrected for nucl RBC Auto (Bld) [#/Vol] Leukocytes [#/volume] corrected for nucleated erythrocytes in Blood by Automated coun High 4.0-11.0 [facility] Lymphocytes Auto (Bld) [#/Vo l]on 01-19-2024 Lymphocytes (Bld) [#/Vol] 4.4 10 3/uL High 1.2-3.8 [facility] Lymphocytes (Bld) [#/Vol] Lymphocytes [#/volume] in Blood by Automated count High 1.2-3.8 [facility] Lymphocytes/100 WBC Auto (Bl d)on 01-19-2024 Lymphocytes/100 WBC (Bld) 35.0 % 20.5-60.0 [facility] Lymphocytes/100 WBC (Bld) Lymphocytes/100 leukocytes in Blood by Automated count 20.5-60.0 [facility] MCH Auto (RBC) [Entitic mass ]on 01-19-2024 MCH (RBC) [Entitic mass] 29.4 pg 26.7-34.0 [facility] MCH (RBC) [Entitic mass] MCH [Entitic mass] by Automated count 26.7-34.0 [facility] MCHC Auto (RBC) [Mass/Vol]on 01-19-2024 MCHC (RBC) [Mass/Vol] 32.4 g/dL 29.9-35.2 [facility] MCHC (RBC) [Mass/Vol] MCHC [Mass/volume] by Automated count 29.9-35.2 [facility] MCV Auto (RBC) [Entitic vol] on 01-19-2024 MCV (RBC) [Entitic vol] 90.6 fL 81.0-99.0 [facility] MCV (RBC) [Entitic vol] MCV [Entitic volume] by Automated count 81.0-99.0 [facility] Monocytes Auto (Bld) [#/Vol] on 01-19-2024 Monocytes (Bld) [#/Vol] 1.2 10 3/uL High 0.3-0.8 [facility] Monocytes (Bld) [#/Vol] Automated blood monocyte count High 0.3-0.8 [facility] Monocytes/100 WBC Auto (Bld) on 01-19-2024 Monocytes/100 WBC (Bld) 9.5 % 1.7-12.0 [facility] Monocytes/100 WBC (Bld) Automated monocyte % 1.7-12.0 [facility] Neutrophils Auto (Bld) [#/Vo l]on 01-19-2024 Neutrophils (Bld) [#/Vol] 6.4 10 3/uL 1.4-6.5 [facility] Neutrophils (Bld) [#/Vol] Neutrophils [#/volume] in Blood by Automated count 1.4-6.5 [facility] Neutrophils/100 WBC Auto (Bl d)on 01-19-2024 Neutrophils/100 WBC (Bld) 50.7 % 43.0-75.0 [facility] Neutrophils/100 WBC (Bld) Automated neutrophil % 43.0-75.0 [facility] No Panel Informationon 01-18 Bedside Influenza Type A Antigen Negative [facility] Comment on above: Negative for Flu A p rotein antigen. Infection due to Flu Acannot be ruled out. Flu A antigen in the sample may bebelow the detection limit of the test. Bedside Influenza Type B Antigen Negative [facility] Comment on above: Negative for Flu B p rotein antigen. Infection due to Flu Bcannot be ruled out. Flu B antigen in the sample may bebelow the detection limit of the test. Eosinophils # (Auto) 0.5 10 3/uL 0.0-0.7 [facility] Immature Granulocyte # (Auto) 0.04 10 3/uL High 0.00-0.03 [facility] Troponin I High Sensitivity 5.8 pg/mL 4.0-51.3 [facility] Comment on above: CUT-OFF POINTS HAVE [...] [Entitic vol] 9.3 fL Low 9.5-13.5 [facility] Platelet mean volume (Bld) [Entitic vol] Platelet mean volume [Entitic volume] in Blood by Automated count Low 9.5-13.5 [facility] Platelets Auto (Bld) [#/Vol] on 01-19-2024 Platelets (Bld) [#/Vol] 304 10 3/uL 150-450 [facility] Platelets (Bld) [#/Vol] Platelets [#/volume] in Blood by Automated count 150-450 [facility] RBC Auto (Bld) [#/Vol]on RBC (Bld) [#/Vol] 4.36 10 6/uL 4.20-5.40 [facility] RBC (Bld) [#/Vol] Erythrocytes [#/volu me] in Blood by Automated count 4.20-5.40 [facility] Serum or plasma anion gap de terminationon 01-19-2024 Anion gap [Moles/Vol] 8.3 mmol/L [facility] Anion gap [Moles/Vol] Serum or plasma anion gap determination [facility] Borrelia burgdorferi IgG+IgM Ab [Presence] in Serum by Immunoassayon 10-13-2023 B. burgdorferi IgG+IgM IA Ql (S) Negative Negative [facility] Comment on above: Lyme antibodies not detected. Reflex testing is notindicated.No laboratory evidence of infection with B. burgdorferi(Lyme disease). Negative results may occur in patientsrecently infected (less than or equal to 14 days) with B.burgdorferi. If recent infection is suspected, repeattesting on a new sample collected in 7 to 14 days isrecommended.Performed at: [employer] [id number] Director: Jeovany Bazan PhD, Phone: [phone] General Surgery Office/Clini c Noteon 02-21-2022 General [...] Sister. Primary malignant neoplasm of lung: Father. [facility] Comment on above: Result Comment: [...] Tobacco user Very low density lipoprotinemia Normal [facility] Reminderson 02-01-2022 Reminders - From: Sushma Shell LPN To: GSN - Clinical; Sent: 02/01/2022 16:18:52 EDT Show up: 04/12/2022 07:00:00 EST Subject: EGD recall Due Date/Time: 05/04/2022 07:00:00 EST Reminder/Recall Patient is due to repeat EGD 05/04/2022 due to gastric ulcer. Normal [facility] Outside Colonoscopyon 2021 Outside Colonoscopy [id number]#[id number]:127 Normal [facility] Pathology Noteon 01-14-2022 Pathology Note [id number]#1.00CD:127 Normal [facility] Reminderson 01-14-2022 Reminders - From: Sushma Shell LPN To: N - Clinical; Sent: 01/14/2022 08:07:35 EDT Show up: 12/14/2031 07:00:00 EDT Subject: colonoscopy recall Due Date/Time: 01/13/2032 07:00:00 EDT Reminder/Recall Patient is due for screening colonoscopy 01/13/2032. Normal [facility] Pre-Certification Formon Pre-Certification Form [id number]#1.00CD:127 [facility] Lab Reportson 01-11-2022 Lab Reports [id number]#[id number]:127 Normal [facility] Covid-19 PCR (CVDTB)on SARS-CoV-2 (COVID-19) RNA JOSELUIS+probe Ql (Unsp spec) Not detected Normal NOT DETECTED [facility] Comment on above: Result Comment: This test is not yet approved or cleared by the [place] FDA. When there are no FDA-approved or cleared tests available, and other criteria are met, FDA can make tests available under an emergency access mechanism called an Emergency Use Authorization (EUA). The EUA for this test is supported by the [employer] of Health and Human Service's (HHS's) declaration [...] consistent with SARS-CoV-2. Performed By: #### C [facility] #### [facility] [address] [place] [address] Dr. Pablo Sheth Physician Orderon 12-23-2021 Physician Order [id number]:127 Normal [facility] Ambulatory Visit Summaryon 0 12-22-2021 Ambulatory [...] Tobacco user Very low density lipoprotinemia Normal [facility] CBC AUTO DIFFon 12-17-2021 BASO # 0.1 103/ul Normal 0.0-0.1 [facility] Comment on above: Performed By: #### D ATCBC #### [facility] [address] [place] [address] Dr. Pablo Sheth Basophils/100 WBC (Bld) 0.4 % Normal 0.2-2.0 [facility] Comment on above: Performed By: #### D ATCBC #### [facility] [address] [place] [address] Dr. Pablo Sheth EO # 0.3 103/ul Normal 0.0-0.7 [facility] Comment on above: Performed By: #### D ATCBC #### [facility] [address] [address] [address] Pablo Sheth Eosinophils/100 WBC (Bld) 2.4 % Normal 0.9-7.0 [facility] Comment on above: Performed By: #### D ATCBC #### [facility] [address] [place] [address] Dr. Pablo Sheth Erythrocyte distribution width (RBC) [Ratio] 13.2 % Normal 11.0-15.0 [facility] Comment on above: Performed By: #### D ATCBC #### [facility] [address] [place] [address] Dr. Pablo Sheth Hematocrit (Bld) [Volume fraction] 42.6 % Normal 36.0-48.0 [facility] Comment on above: Performed By: #### D ATCBC #### [facility] [address] [place] [address] Dr. Pablo Sheth Hemoglobin (Bld) [Mass/Vol] 13.7 g/dL Normal 12.0-16.0 [facility] Comment on above: Performed By: #### D ATCBC #### [facility] [address] [place] [address] Dr. Pablo Sheth IG # 0.05 10e3/ul Critically high 0.00-0.03 [facility] Comment on above: Performed By: #### D ATCBC #### [facility] [address] [place] [address] Dr. Pablo Sheth IG % 0.4 % Normal 0.0-0.5 [facility] Comment on above: Performed By: #### D ATCBC #### [facility] [address] [place] [address] Dr. Pablo Sheth LYMPH # 2.8 103/ul Normal 1.2-3.8 [facility] Comment on above: Performed By: #### D ATCBC #### [facility] [address] [place] [address] Dr. Pablo Sheth Lymphocytes/100 WBC (Bld) 20.9 % Normal 20.5-60.0 [facility] Comment on above: Performed By: #### D ATCBC #### [facility] [address] [place] [address] Dr. Pablo Sheth MCH (RBC) [Entitic mass] 29.2 pg Normal 26.7-34.0 [facility] Comment on above: Performed By: #### D ATCBC #### [facility] [address] [place] [address] Dr. Pablo Sheth MCHC (RBC) [Mass/Vol] 32.2 g/dL Normal 29.9-35.2 [facility] Comment on above: Performed By: #### D ATCBC #### [facility] [address] [address] [address] Pablo Sheth MCV (RBC) [Entitic vol] 90.8 fL Normal 81.0-99.0 [facility] Comment on above: Performed By: #### D ATCBC #### [facility] [address] [place] [address] Dr. Pablo Sheth MONO # 1.0 103/ul Critically high 0.3-0.8 [facility] Comment on above: Performed By: #### D ATCBC #### [facility] [address] [place] [address] Dr. Pablo Sheth Monocytes/100 WBC (Bld) 7.5 % Normal 1.7-12.0 [facility] Comment on above: Performed By: #### D ATCBC #### [facility] [address] [place] [address] Dr. Pablo Sheth NEUT # 9.2 103/ul Critically high 1.4-6.5 [facility] Comment on above: Performed By: #### D ATCBC #### [facility] [address] [place] [address] Dr. Pablo Sheth Neutrophils/100 WBC (Bld) 68.4 % Normal 43.0-75.0 [facility] Comment on above: Performed By: #### D ATCBC #### [facility] [address] [place] [address] Dr. Pbalo Sheth Platelet mean volume (Bld) [Entitic vol] 9.3 fL Critically low 9.5-13.5 [facility] Comment on above: Performed By: #### D ATCBC #### [facility] [address] [place] [address] Dr. Pablo Sheth PLT 313 103/ul Normal 150-450 [facility] Comment on above: Performed By: #### D ATCBC #### [facility] [address] [place] [address] Dr. Pablo Sheth RBC 4.69 106/ul Normal 4.20-5.40 [facility] Comment on above: Performed By: #### D ATCBC #### [facility] [address] [address] [address] Pablo Sheth WBC 13.4 103/ul Critically high 4.0-11.0 [facility] Comment on above: Performed By: #### D ATCBC #### [facility] [address] [place] [address] Dr. Pablo Sheth BERKLEY - TSHon 12-17-2021 TSH 1.241 uIU/mL Normal 0.358-3.740 [facility] Comment on above: Performed By: #### D ATTTONYA DATBMP #### [facility] [address] [place] [address] Dr. Pablo Sheth TSH RANGE SEE BELOW Normal [facility] Comment on above: Result Comment: <0.3 4 UIU/ml HYPERTHYROID 0.34-5.60 UIU/ml EUTHYROID >5.60 UIU/ml HYPOTHYROID Performed By: #### D JOSE J DATBMP #### [facility] [address] [place] [address] Dr. Pablo Sheth BERKLEY- BMP WITH LIPIDon 2021 Anion gap [Moles/Vol] 11.9 mmol/L Normal [facility] Comment on above: Performed By: #### D JOSE J DATBMP #### [facility] [address] [place] [address] Dr. Pablo Sheth Calcium [Mass/Vol] 9.1 mg/dL Normal 8.5-10.1 [facility] Comment on above: Performed By: #### D JOSE J DATBMP #### [facility] [address] [place] [address] Dr. Pablo Sheth Chloride [Moles/Vol] 104 mmol/L Normal 98-107 [facility] Comment on above: Performed By: #### D ATTTONYA DATBMP #### [facility] [address] [place] [address] Dr. Pablo Sheth Cholesterol [Mass/Vol] 207 mg/dL Critically high <=200 [facility] Comment on above: Performed By: #### D ATTTONYA DATBMP #### [facility] [address] [place] [address] Dr. Pablo Sheth Cholesterol in HDL [Mass/Vol] 52 mg/dL Normal 40-60 [facility] Comment on above: Performed By: #### D JOSE J DATBMP #### [facility] [address] [address] [address] Pablo Sheth Cholesterol in LDL [Mass/Vol] 141.4 mg/dL Normal [facility] Comment on above: Performed By: #### D JOSE J DATBMP #### [facility] [address] [address] [address] Pablo Sheth CO2 [Moles/Vol] 29.3 mmol/L Normal 21.0-32.0 [facility] Comment on above: Performed By: #### D JOSE J DATBMP #### [facility] [address] [place] [address] Dr. Pablo Sheth Creatinine [Mass/Vol] 0.77 mg/dL Normal 0.55-1.02 [facility] Comment on above: Performed By: #### Breanna LUX DATBMP #### [facility] [address] [place] [address] Dr. Pablo Sheth EGFR-AF IRAQI >60 Normal >=60 [facility] Comment on above: Performed By: #### D JOSE J DATBMP #### [facility] [address] [place] [address] Dr. Pablo Sheth EGFR-NON AF IRAQI >60 Normal >=60 [facility] Comment on above: Performed By: #### D JOSE J DATBMP #### [facility] [address] [place] [address] Dr. Pablo Sheth Glucose [Mass/Vol] 109 mg/dL Critically high 74-106 T [facility] Comment on above: Performed By: #### D ATTTONYA DATBMP #### [facility] [address] [place] [address] Dr. Pablo Sheth HDL NORMAL > or = 60 mg/dl - LO W CARDIOVASCULAR RISK <40 mg/dl - HIGH CARDIOVASCULAR RISK Normal [facility] Comment on above: Performed By: #### D ATTTONYA DATBMP #### [facility] [address] [address] [address] Pablo Sheth LDL CALC NORMAL SEE BELOW Normal [facility] Comment on above: Result Comment: <100 mg/dl OPTIMAL 100 - 129 mg/dl NEAR OR ABOVE OPTIMAL 130 - 159 mg/dl BORDERLINE HIGH 160 - 189 mg/dl HIGH >190 mg/dl VERY HIGH Performed By: #### D JOSE J DATBMP #### [facility] [address] [address] [address] Pablo Sheth Potassium [Moles/Vol] 4.2 mmol/L Normal 3.5-5.1 [facility] Comment on above: Performed By: #### D JOSE J DATBMP #### [facility] [address] [address] [address] Pablo Sheth Sodium [Moles/Vol] 141 mmol/L Normal 136-145 [facility] Comment on above: Performed By: #### D JOSE J DATBMP #### [facility] [address] [address] [address] Pablo Sheth Triglyceride [Mass/Vol] 68 mg/dL Normal <=150 [facility] Comment on above: Performed By: #### D JOSE J DATBMP #### [facility] [address] [place] [address] Dr. Pablo Sheth Urea nitrogen [Mass/Vol] 26.0 mg/dL Critically high 7.0-18.0 [facility] Comment on above: Performed By: #### D JOSE J DATBMP #### [facility] [address] [place] [address] Dr. Pablo Sheth Urea nitrogen/Creatinin e [Mass ratio] 33.8 mg/mg Normal [facility] Comment on above: Performed By: #### D JOSE J DATBMP #### [facility] [address] [place] [address] Dr. Pablo Sheth VLDL CALC 13.6 mg/dL Normal [facility] Comment on above: Performed By: #### D JOSE J DATBMP #### [facility] [address] [place] [address] Dr. Pablo Sheth Physician Referralon 022 Physician Referral [id number]:127 Normal [facility] Vital Signs Date Time Vital Sign Value Performing Clinician Facility 06-05-2024 14:11-0500 Body height 170.2 cm Geoff Walker DO Work Phone: [facility] 06-05-2024 14:11-0500 Body mass index (BMI) [Ratio] 27.72 kg/m2 Geoff Walker DO Work Phone: [facility] 06-05-2024 14:11-0500 Body weight 80.29 kg Geoff Moyershyann DO Work Phone: [facility] 04-15-2024 15:14-0500 Body height 170.18 cm Cornelius Garrison MD Work Phone: [facility] 04-15-2024 15:14-0500 Body mass index (BMI) [Ratio] 27.7 kg/m2 Cornelius Garrison MD Work Phone: [facility] 04-15-2024 15:14-0500 Body temperature 98.4 [degF] Cornelius Garrison MD Work Phone: [facility] 04-15-2024 15:14-0500 Body weight 80.28 kg Cornelius Garrison MD Work Phone: [facility] 04-15-2024 15:14-0500 Diastolic blood pressure 82 mm[Hg] Cornelius Garrison MD Work Phone: [facility] 04-15-2024 15:14-0500 Heart rate 83 /min Cornelius Garrison MD Work Phone: [facility] 04-15-2024 15:14-0500 Respiratory rate 20 /min Cornelius Garrison MD Work Phone: [facility] 04-15-2024 15:14-0500 SaO2% (BldA) [Mass fraction] 96 % Cornelius Garrison MD Work Phone: [facility] 04-15-2024 15:14-0500 Systolic blood pressure 128 mm[Hg] Cornelius Garrison MD Work Phone: [facility] 03-29-2024 08:56-0500 Body height 170.18 cm Cornelius Garrison MD Work Phone: [facility] 03-29-2024 08:56-0500 Body mass index (BMI) [Ratio] 27.2 kg/m2 Cornelius Garrison MD Work Phone: [facility] 03-29-2024 08:56-0500 Body weight 78.92 kg Cornelius Garrison MD Work Phone: [facility] 03-29-2024 08:56-0500 Diastolic blood pressure 86 mm[Hg] Cornelius Garrison MD Work Phone: [facility] 03-29-2024 08:56-0500 Heart rate 91 /min Cornelius Garrison MD Work Phone: [facility] 03-29-2024 08:56-0500 SaO2% (BldA) [Mass fraction] 95 % Cornelius Garrison MD Work Phone: [facility] 03-29-2024 08:56-0500 Systolic blood pressure 124 mm[Hg] Cornelius Garrison MD Work Phone: [facility] 03-11-2024 15:29-0500 Body height 170.18 cm Cornelius Garrison MD Work Phone: [facility] 03-11-2024 15:29-0500 Body mass index (BMI) [Ratio] 27.8 kg/m2 Cornelius Garrsion MD Work Phone: [facility] 03-11-2024 15:29-0500 Body temperature 97.6 [degF] Cornelius Garrison MD Work Phone: [facility] 03-11-2024 15:29-0500 Body weight 80.73 kg Cornelius Garrison MD Work Phone: [facility] 03-11-2024 15:29-0500 Diastolic blood pressure 80 mm[Hg] Cornelius Garrison MD Work Phone: [facility] 03-11-2024 15:29-0500 Heart rate 82 /min Cornelius Garrison MD Work Phone: [facility] 03-11-2024 15:29-0500 Respiratory rate 20 /min Cornelius Garrison MD Work Phone: [facility] 03-11-2024 15:29-0500 SaO2% (BldA) [Mass fraction] 98 % Cornelius Garrison MD Work Phone: [facility] 03-11-2024 15:29-0500 Systolic blood pressure 134 mm[Hg] Cornelius Garrison MD Work Phone: [facility] 02-08-2024 13:55-0400 Body height 170.18 cm MD Cornelius Garrison Work Phone: [facility] 02-08-2024 13:55-0400 Body mass index (BMI) [Ratio] 27.9 kg/m2 MD Cornelius Garrison Work Phone: [facility] 02-08-2024 13:55-0400 Body weight 80.9 kg MD Cornelius Garrison Work Phone: [facility] 02-08-2024 13:55-0400 Diastolic blood pressure 78 mm[Hg] MD Cornelius Garrison Work Phone: [facility] 02-08-2024 13:55-0400 Heart rate 74 /min MD Cornelius Garrison Work Phone: [facility] 02-08-2024 13:55-0400 SaO2% (BldA) [Mass fraction] 96 % MD Cornelius Garrison Work Phone: [facility] 02-08-2024 13:55-0400 Systolic blood pressure 110 mm[Hg] MD Cornelius Garrison Work Phone: [facility] 01-24-2024 14:35-0400 Body height 170.18 cm MD Cornelius Garrison Work Phone: [facility] 01-24-2024 14:35-0400 Body mass index (BMI) [Ratio] 28.3 kg/m2 MD Cornelius Garrison Work Phone: [facility] 01-24-2024 14:35-0400 Body weight 82.21 kg MD Cornelius Garrison Work Phone: [facility] 01-09-2024 15:17-0400 Body height 167.64 cm [facility] 01-09-2024 15:17-0400 Body mass index (BMI) [Ratio] 28.2 kg/m2 [facility] 01-09-2024 15:17-0400 Body weight 79.37 kg [facility] 01-09-2024 15:17-0400 Diastolic blood pressure 91 mm[Hg] [facility] 01-09-2024 15:17-0400 Heart rate 76 /min [facility] 01-09-2024 15:17-0400 SaO2% (BldA) [Mass fraction] 97 % [facility] 01-09-2024 15:17-0400 Systolic blood pressure 135 mm[Hg] [facility] 11-01-2023 08:57-0400 Body height 167.64 cm [facility] 11-01-2023 08:57-0400 Body mass index (BMI) [Ratio] 28.2 kg/m2 [facility] 11-01-2023 08:57-0400 Body weight 79.37 kg [facility] 11-01-2023 08:57-0400 Diastolic blood pressure 90 mm[Hg] [facility] 11-01-2023 08:57-0400 Heart rate 63 /min [facility] 11-01-2023 08:57-0400 Systolic blood pressure 136 mm[Hg] [facility] 10-13-2023 09:19-0400 Body height 167.64 cm [facility] 10-13-2023 09:19-0400 Body mass index (BMI) [Ratio] 28 kg/m2 [facility] 10-13-2023 09:19-0400 Body weight 78.92 kg [facility] 10-13-2023 09:19-0400 Diastolic blood pressure 76 mm[Hg] [facility] 10-13-2023 09:19-0400 Heart rate 78 /min [facility] 10-13-2023 09:19-0400 SaO2% (BldA) [Mass fraction] 98 % [facility] 10-13-2023 09:19-0400 Systolic blood pressure 118 mm[Hg] [facility] 07-31-2023 10:09-0400 Body height 167.64 cm [facility] 07-31-2023 10:09-0400 Body mass index (BMI) [Ratio] 28.8 kg/m2 [facility] 07-31-2023 10:09-0400 Body weight 80.9 kg [facility] 07-31-2023 10:09-0400 Diastolic blood pressure 89 mm[Hg] [facility] 07-31-2023 10:09-0400 Heart rate 74 /min [facility] 07-31-2023 10:09-0400 Systolic blood pressure 138 mm[Hg] [facility] 12-22-2021 14:20-0400 Blood Pressure Location Mihaela [facility] [place] 12-22-2021 14:20-0400 Diastolic blood pressure 80 mm[Hg] [facility]ha[facility] [place] 12-22-2021 14:20-0400 Heart rate 72 /min Miha[facility] [place] 12-22-2021 14:20-0400 Respiratory rate 16 /min Mihaela [facility] [place] 12-22-2021 14:20-0400 Systolic blood pressure 116 mm[Hg] Mihaela CAS[facility] [place] Encounters Encounter Date Encounter Type Care Provider Facility Start: 06-06-2024 End: 06-06-2024 ambulatory [facility] Start: 06-05-2024 End: 06-05-2024 Office outpatient new [...] 05-13-2024 End: 05-13-2024 ambulatory Cornelius Garrison MD Facility:[facility] Start: 05-10-2024 ambulatory Cornelius Garrison MD Work Phone: [facility] Work Phone: Start: 05-10-2024 Non-patient / Non-visit Cornelius Garrison MD Work Phone: [facility] Work Phone: Start: 04-29-2024 End: 04-29-2024 ambulatory Cornelius Garrison MD Facility:[facility] Start: 04-22-2024 End: 04-22-2024 ambulatory Cornelius Garrison MD Work Phone: [facility] Work Phone: Start: 04-22-2024 End: 04-22-2024 Departed Referred Cornelius Garrison MD Work Phone: [facility] [place] [facility] Start: 04-22-2024 End: 04-22-2024 ambulatory Duong Oreilly MD Facility:[facility] Start: 04-15-2024 End: 04-15-2024 ambulatory Cornelius Garrison MD Work Phone: [facility] Work Phone: Start: 04-15-2024 End: 04-15-2024 Patient encounter procedure Cornelius Garrison MD Work Phone: [facility] Work Phone: Start: 04-01-2024 End: 04-01-2024 [...] encounter procedure Cornelius Garrison MD Work Phone: [facility] Work Phone: Start: 03-25-2024 End: 03-25-2024 ambulatory Cornelius Garrison MD Facility:[facility] Start: 03-21-2024 Non-patient / Non-visit Cornelius Garrison MD Work Phone: [facility] Work Phone: Start: 03-11-2024 End: 03-11-2024 Patient encounter procedure Cornelius Garrison MD Work Phone: [facility] Work Phone: Start: 03-04-2024 Non-patient / Non-visit Cornelius Garrison MD Work Phone: [facility] Work Phone: Start: 03-04-2024 End: 03-04-2024 Patient encounter procedure Cornelius Garrison MD Work Phone: [facility] Work Phone: Start: 03-04-2024 End: 03-04-2024 ambulatory Cornelius Garrison Facility:[facility] Start: 02-23-2024 End: 02-23-2024 ambulatory [facility] Facility:[facility] Start: 02-19-2024 End: 02-19-2024 ambulatory [facility] Facility:[facility] Start: 02-13-2024 End: 02-13-2024 ambulatory Cornelius Garrison MD Facility:[facility] Start: 02-08-2024 End: 02-08-2024 ambulatory MD Cornelius Garrison Work Phone: [facility] Work Phone: Start: 02-08-2024 End: 02-08-2024 Patient encounter procedure MD Cornelius Garrison Work Phone: [facility] Work Phone: Start: 02-07-2024 Non-patient / Non-visit MD Mala Garrison Work Phone: [facility] Work Phone: Start: 02-01-2024 Non-patient / Non-visit Cornelius Garrison MD Work Phone: [facility] Work Phone: Start: 01-24-2024 End: 01-24-2024 ambulatory MD Cornelius Garrison Work Phone: [facility] Work Phone: Start: 01-24-2024 End: 01-24-2024 Patient encounter procedure MD Cornelius Garrison Work Phone: [facility] Work Phone: Start: 01-24-2024 End: 01-24-2024 Patient encounter procedure MD Cornelius Garrison Work Phone: [facility] Start: 01-24-2024 End: 01-24-2024 ambulatory MD Cornelius Garrison Work Phone: [facility] Work Phone: Start: 01-19-2024 Non-patient / Non-visit MD Mala Garrison Work Phone: [facility] Work Phone: Start: 01-19-2024 Non-patient / Non-visit MD Mala Garrison Work Phone: [facility] Work Phone: Start: 01-09-2024 End: 01-09-2024 ambulatory [facility] Work Phone: Start: 01-09-2024 End: 01-09-2024 Patient encounter procedure [facility] Work Phone: Start: 11-01-2023 End: 11-01-2023 ambulatory [facility] Work Phone: Start: 11-01-2023 End: 11-01-2023 Patient encounter procedure [facility] Work Phone: Start: 10-13-2023 End: 10-13-2023 ambulatory [facility] Work Phone: Start: 10-13-2023 End: 10-13-2023 Patient encounter procedure [facility] Work Phone: Start: 07-31-2023 End: 07-31-2023 ambulatory [facility] Work Phone: Start: 07-31-2023 End: 07-31-2023 Patient encounter procedure [facility] Work Phone: Start: 05-26-2023 Non-patient / Non-visit [facility] Work Phone: Start: 02-01-2022 End: 02-02-2022 [facility]ulatory [facility] Start: 02-01-2022 End: 02-01-2022 Patient encounter procedure Mihaela Miguel Angel NILL General Surgery Nill[facility] [place] Start: 01-13-2022 Encounter for preprocedural laboratory examination DR MIHAELA CASAS [facility] Start: 01-12-2022 End: 01-13-2022 ambulatory Mihaela CASAS Facility:CD:[id number] Start: 01-10-2022 End: 01-11-[address] MIHAELA CASAS Facility:[facility] Start: 01-10-2022 End: 01-11-2022 Encounter for preprocedural laboratory examination DR MIHAELA CASAS Facility:[facility] Start: 12-22-2021 End: 12-23-2021 ambulatory [facility] Start: 12-22-2021 End: 12-22-2021 Patient encounter procedure Mihaela CASAS General Surgery Nill[facility] [place] Start: 12-17-2021 End: 12-18-2021 ambulatory CORNELIUS GARRISON PROVIDER Facility:[facility] Procedures Date Procedure Procedure Detail Performing Clinician [...] Screening for malign [facility] Start: 06-10-2025 End: 06-10-2025 Patient encounter procedure 06/10/2025 8:45 AM EST Office Visit [facility] [address] [place] [phone] Geoff Walker, DO [address] [place] [address] [facility] Start: 06-05-2024 End: 06-05-2024 Patient encounter procedure 06/05/2024 2:30 PM EST Office Visit [facility] [address] [place] [address] Geoff Walker, DO [address] [place] [address] Arrived [facility] Comment on above: Arrived Start: 05-10-2024 Patient referral [facility] Work Phone: Start: 04-05-2024 Patient referral [facility] Work Phone: Start: 04-01-2024 End: 04-01-2024 Patient encounter procedure 04/01/2024 3:00 PM EST Procedure Visit [facility] [address] [place] [address] Kane PerezDO [address] [place] [address] Arrived [facility] Comment on above: Arrived Start: 01-24-2024 X-ray of both knees, three views XR knee BI 3V - NOT FOR ER USE [facility] Start: 01-24-2024 XR Knee - bilateral 3 Views [facility] Start: 01-22-2024 Pneumococcal Vaccine : 65+ Years (1 of 1 - PCV) Pneumococcal Vaccine: 65+ Years (1 of 1 - PCV) [facility] Start: 01-10-2024 Patient referral [facility] Work Phone: Start: 12-10-2023 Influenza vaccination Influenza Vacc ine (#1) [facility] Start: 1999 Screening for malign ant neoplasm of breast Mammogram [facility] Start: 1989 Screening for malign ant neoplasm of cervix [facility] Start: 01-22-1980 Screening for malign ant neoplasm of cervix Pap Smear [facility] Start: 1959 Screening for malign ant neoplasm of colon [facility] CT Unspecified body region [facility] CT Unspecified body region [facility] DXA Skeletal system.axial Views for bone density [facility] Patient Education Low back pain in adults [facility] Work Phone: Patient referral [facility] Work Phone: US Lower extremity v ein - right [facility] US Thyroid gland [facility] Immunizations Immunization Date Immunization Notes Care Provider Fa cility 03-11-2024 diphtheria, tetanus toxoids and acellular pertussis vaccine, unspecified formulation Cornelius Garrison MD Work Phone: [facility] 03-29-2021 COVID-19 mRNA, Comirnaty (Pfizer) [facility] 08-11-2020 COVID-19 mRNA, Comirnaty (Pfizer) [facility] 07-21-2020 COVID-19 mRNA, Comirnaty (Pfizer) [facility] 10-07-2018 diphtheria, tetanus toxoids and acellular pertussis vaccine, unspecified formulation [facility] 02-05-2014 tetanus and diphther ia toxoids, adsorbed, preservative free, for adult use (5 Lf of tetanus toxoid and 2 Lf of diphtheria toxoid) [facility] Payers Date Payer Category Payer Other GENERIC OTHER [id number] 2024 Unknown [id number] 2024 Medicare [id number] 2024 Medicare [id number] 2023 Unknown 2021 Unknown [id number] 1959 Self-pay [id number] 1959 Unknown [id number] 2.16.840.1.758944.3.579.2 .727 1959 Unknown [id number] 2.16.840.1.432851.3.579.2 .727 1959 Unknown [id number] 2.16.840.1.822222.3.579.2 .727 1959 Unknown [id number] 2.16.840.1.148009.3.579.2 .727 1959 Unknown [id number] 2.16.840.1.515602.3.579.2 .593 1959 Unknown [id number] 2.16.840.1.601762.3.579.2 .593 1959 Unknown [id number] 2.16.840.1.654014.3.579.2 .1259 1959 Unknown [id number] 2.16.840.1.055697.3.579.2 .1259 1959 Unknown [id number] 2.16.840.1.324476.3.579.2 .196 1959 Unknown [id number] 2.16.840.1.454869.3.579.2 .196 1959 Unknown [id number] 2.16.840.1.519410.3.579.2 .196 1959 Unknown [id number] 2.16.840.1.063284.3.579.2 .196 1959 Unknown [id number] 2.16.840.1.728323.3.579.2 .196 1959 Unknown [id number] 2.16.840.1.525509.3.579.2 .196 1959 Unknown [id number] 2.16.840.1.769418.3.579.2 .196 1959 Unknown [id number] 2.16.840.1.750683.3.579.2 .196 Private Health Insurance [employer] MCR PFFS G [id number] Unknown [id number] Unknown [id number] 2.16.840.1.160809.3.579.2 .593 Unknown MMO [employer] [id number] Social History Date Type Detail Facility Start: 12-22-2021 Heavy tobacco smoker (finding) [facility] [place] [facility] [place] Start: 06-05-2024 Female General Love michaelle Matta Start: 07-31-2023 End: 04-15-2024 Tobacco smoking status NHIS Smoker (finding) [facility] Start: 1960 Sex Assigned At Female F [facility] Tobacco smoking stat us NHIS Tobacco smoking consumption unknown [facility] Start: 1960 Sex assigned at Not on file [facility] Start: 04-15-2024 End: 05-10-2024 Sex Female (finding) [facility] Start: 06-05-2024 Tobacco smoking stat [facility] Smokes tobacco daily [facility] History of tobacco use Cigarette Smoker [facility] Start: 06-05-2024 Tobacco use and exposure Smokeless tobacco non-user [facility] Start: 06-05-2024 Alcoholic beverage intake Ex-drinker (finding) [facility] Start: 06-05-2024 History of Social function [facility] Functional Status Date Assessment Result Facility 12-22-2021 N/A General Surgery [place] Clinical Notes 12-22-2021 to 06-05-2024 Geoff Walker, [...] FNA was performed which came back as Kopperl III, Afirma testing was then done showing [...] in 1 year documented in this encounter [facility] 05-10-2024 Hospital Discharge instructions Ambulatory OrdersReferral to ENT Time Frame: 05/10/24, Location: None [facility] Work Phone: 04-01-2024 History of Present illness Narrative Images from the original note were not included. 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 documented in this encounter [facility] 03-11-2024 Evaluation note Diagnosis Onset Date [...] for lung cancer acute April 15 3:12pm assisted (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 of 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 acute April 15, 2024 3:12pm Moderate persistent asthma, uncomplicated acute April 3:12pm [facility] Work Phone: 1(790) 974-298411-15-2024 NotePatient Education Materials Name: Cristine Manley Current [...] for continued care. Thank you for choosing [facility] for your care.[facility]10-31-2024 Evaluation note* Diagnosis Onset Date Resolution Status [...] for lung cancer acute April 15 3:12pm assisted (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 of 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 acute April 15 3:12pm Moderate persistent asthma, uncomplicated acute April 15 3:12pm [facility] Work Phone: 1(448) 302-588710-16-2024 Evaluation note* Diagnosis Onset Date Resolution Status [...] persistent asthma, uncomplicated acute April 15 3:12pm [facility] Work Phone: 1(383) 268-906810-05-2022 NoteOPERATIVE NOTE OPERATION DATE: 01/12/2022 PREOPERATIVE DIAGNOSIS: [...] of the polyp. CC: Cornelius Garrison M.D.The [id number] NoteChief Complaint consultation for epigastric pain HPI [...] Chronic obstructive pulmonary dise (more content not included)...[facility]Result Comment: Electronically Signed By: RAJINDER TAVERAS, Mihaela Trujillo\Date and Time Signed: 12/22/21 17:34 EDTEvaluation + Plan note No data available for this section [facility] [place] Evaluation note* Diagnosis Onset Date Resolution Status Lumbar radiculopathy, chronic acute [facility] Work Phone: Evaluation note* Diagnosis Onset Date Resolution Status Lumbar radiculopathy, chronic acute Headache acute Joint pain acute Tick bite acute [facility] Work Phone: Evaluation note* Diagnosis Onset Date Resolution Status Headache acute Joint pain acute Tick bite acute Chronic obstructive pulmonary disease, unspecified acute Lumbar radiculopathy, chronic acute [facility] Work Phone: Evaluation note* Diagnosis Onset Date Resolution Status Chronic obstructive pulmonary disease, unspecified acute Lumbar radiculopathy, chronic acute Bilateral knee pain acute COPD exacerbation acute Lumbar pain acute Lumbar radiculopathy, chronic acute Bilateral knee pain acute Primary osteoarthritis of both knees [facility] Work Phone: Evaluation note* Diagnosis Onset Date Resolution Status Bilateral knee pain acute COPD exacerbation acute Lumbar pain acute Lumbar radiculopathy, chronic acute Bilateral knee pain acute Primary osteoarthritis of both knees acute Menopause acute [facility] Work Phone: Evaluation note* Diagnosis Lumbosacral radiculopathy- Primary Thoracic or lumbosacral neuritis or radiculitis, unspecified Numbness and tingling Disturbance of skin sensation [facility] Diagnosis Thyroid nodule (CMS/HCC)- Primary Nontoxic uninodular goiter documented in this encounter [facility] HealthcareHospital Discharge instructions No data available for this section General Surgery [place] Progress note No data available for this section [facility] [place] Reason for visit Narrative* Other Medical (Routine) - Closed Specialty Diagnoses / Procedures Referred By Contac t Referred To Contact Neurology Diagnoses Neuralgia and neuritis, unspecified Procedures LA NEEDLE EMG EA EXTREMTY W/PARASPINL AREA COMPLETE LA NERVE CONDUCTION STUDIES 9-10 STUDIES Ofelia Arceo PA-C [address] [place] [address] Phone: tel: fax: Cecil Fields MD [address] [place] [address] Phone: tel: fax: Referral ID Status Reason Start Date Expiration Date V isits Requested Visits Authorized [id number] Closed Perform Procedure 03/27/2024 09/23/2024 1 1 [facility] Healthcare Summary Purpose Family History No Family [...] right knee January 6:54am CONSULT DR. BLADIMIR ITRADO KNEE PAIN, NX Oc tober 2023 2:05pm CC Adult Risk Stratification January 3:05pm Fracture f/u/Discuss-HIGH RISK January 102023 1:31pm J44.1 March 04, 2024 2:34pm J44.1 March 04, 2024 6:43pm Ref: Dr. 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 COPD April 15, [...] for lung cancer April 15, 2024 3:12pm assisted (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 of inhaled stero ids April [...] End: October 13, 2023 Brittanie Siu APRN COMMUNICATIONS EQUIPMENT OPERATOR-C Attending Provider Act onesimo Start: October 13, [...] Provider Active S tart: January 24, 2024 Automobile Brakes Bonder Relationship Specialty Start Date End Date Cornelius Garrison MD [address] [place] [facility] [place] [address] PCP - General Family Medicine 03/27/24 Ofelia Arceo MD [address] [place] [address] Referring Physician Internal Medicine 03/27/24 Automobile Brakes Bonder Relationship Specialty Start Date End Date Cornelius Garrison MD [address] [place] [facility] [place] [phone] PCP - General Family Medicine 03/27/24 Ofelia Arceo MD [address] [place] [address] Referring Physician Internal Medicine 03/27/24 Team Status: Inactive Member Role Status Dates Cornelius Garrison MD Attending Provider Active St art: April 22, 2024 End: April 22, 2024 Team Status: Active Member Role Status Dates Cornelius Garrison MD Attending Provider Active St art: May 10, 2024 Automobile Brakes Bonder Relationship Specialty Start Date End Date Cornelius Garrison MD [address] [place] [phone] PCP - General Family Medicine 03/27/24 Ofelia Arceo MD [address] [place] [address] Referring Physician Internal Medicine 03/27/24 Geoff Walker DO [address] [place] [address] Otolaryngology 2/26/25 Automobile Brakes Bonder Relationship Specialty Start Date End Date Cornelius Garrison MD [address] [facility] [place] [address] PCP - General Family Medicine 03/27/24 Ofelia Arceo MD [address] [place] [address] Referring Physician Internal Medicine 03/27/24 Geoff Walker DO [address] [place] [place] [address] Otolaryngology 06/05/24 INFORMATION SOURCE (unrecogn ized section and content) DATE CREATED AUTHOR 02/21/[address] [facility] DATE CREATED AUTHOR AUTHOR'S ORGANIZ ATION 04/01/2022 [facility] DATE CREATED AUTHOR AUTHOR'S ORGANIZ ATION 05/12/2024 [facility] DATE CREATED AUTHOR AUTHOR'S ORGANIZ ATION 06/07/2024 [facility] EPIC DATE CREATED AUTHOR AUTHOR'S ORGANIZ ATION 06/08/2024 [facility] Goals (unrecognized section and content) Goals may [...] BE BASED ON THE PRIMARY CLINICAL RECORDS. [employer] provides no warranty or guarantee of the accuracy or completeness of information in this document.
== END 2024-06-19 08:12 | disposition home or self-care (01) ==
LOC: PM 08:11
PROVIDERS: PCP Family Medicine; Visit Provider Nurse Practitioner
DX: M47.816 Spondylosis without myelopathy or radiculopathy, lumbar region (principal); M48.062 Spinal stenosis, lumbar region with neurogenic claudication; M96.1 Postlaminectomy syndrome, not elsewhere classified; M46.1 Sacroiliitis, not elsewhere classified
CPT/HCPCS: G0463

== ENCOUNTER 2024-07-08 10:51 | Day surgery (SDC) | payer MEDICARE, OTHER, SELFPAY ==
--- OUTSIDE RECORDS SUMMARY | 2024-07-08 11:06 | XMS_ITS | CCD ---
Author Organization [facility] Care Team Providers Care 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 Name Role Phone CORNELIUS GARRISON Primary Care Physician [phone] BLADIMIR PROVIDERCORNELIUS Referring Unavailab le NILL, Mihaela [...] Provider Cornelius Garrison MD Primary Care Provider [phone] King NITIN, Ofelia Unavailable Cornelius Garrison MD Primary Care Provider [phone] Alexandro Galvez DO Attending Provider Cornelius Garrison MD Attending Provider Cornelius Garrison MD Primary Care Provider Cornelius Garrison Admitting Unavailable Cornelius Garrison Attending Unavailable Cornelius Garrison Admitting Unavailable Cornelius Garrison Attending Unavailable Cornelius Garrison Primary Care Unavailable Alexandro Galvez Attending Unavailable Alexandro Galvez Admitting Unavailable Cornelius Garrison Primary Care Unavailable Geoff Walker DO Unavailable GEOFF WALKER Attending CORNELIUS Nicole Referring Unavailable KANE PEREZ Attending Unavailable ADISOFELIA Referring Unavailable Adis PA-C, Ofelia Grace Attending Unavailab Tuan TAVERAS, Cornelius [facility] Unava ilable Adis PA-C, Ofelia Grace Attending Unavailab Tuan TAVERAS, [facility] Unava ilable Adis PA-C, Ofelia Grace Admitting Unavailab le Adis PA-C, Ofelia Grace Attending Unavailab Tuan TAVERAS, Cornelius [facility] Unava ilable Adis PA-C, Ofelia Grace Attending Unavailab Tuan TAVERAS, Cornelius [facility] Unava stephany Garrison MD, Cornelius [facility] Gelava ilable Denilson TAVERAS, Duong Wagoner Attending Unavailable Bladimir TAVERAS, Cornelius [facility] Unava ilable Denilson TAVERAS, Andrius Wagoner Attending Unavailable Denilson TAVERAS, Andrius Rizwana Attending Unavailable Bladimir TAVERAS, Cornelius [facility] Unava stephany Garrison MD, [facility] Unava ilable Denilson TAVERAS, Sonyarius Wagoner Attending Unavailable Adis PA-C, Ofelia Grace Attending Unavailab Tuan TAVERAS, Cornelius [facility] Gelava stephany Garrison MD, Cornelius Whyte Referring Cornelius Mcgowan MD Attending Provider Allergies Allergy Classification Reported Allergen(s) Allergy Type Date of Onset Reaction(s) Facility (3 sources) Acetaminophen / oxyCODONE; Translations: [acetaminophen-oxy codone] Drug Allergy Nausea (finding) [facility] [place] (6 sources) Alendronate; Translations: [alendronate] Drug Allergy 03-29-20 Muscle pain (finding) [facility] [place] (14 sources) Clarithromycin; Translations: [clarithromycin] Drug Allergy 07-31-19 Unknown (qualifier value) [facility] [place] (15 sources) levoFLOXacin; Translations: [levofloxacin] Drug Allergy 07-31-19 Eruption of skin (disorder) [facility] [place] (4 sources) Sulfonamides (Antibiotic); Translations: [sulfa drugs] Drug allergy Unknown (qualifier value) [facility] [place] (1 source) Acetaminophen / oxyCODONE Drug Allergy 03-25-20 16 [facility] (1 source) Alendronate Drug Allergy 03-18-20 16 [facility] (1 source) Clarithromycin Drug Allergy 03-25-20 16 [facility] (1 source) levoFLOXacin Drug Allergy 03-25-20 16 [facility] (1 source) Quinolones (Antibiotic) Drug allergy (disorder) 03-25-20 16 [facility] (1 source) Sulfonamides (Antibiotic) Drug allergy (disorder) 05-01-19 14 [facility] (1 source) Acetaminophen Drug Allergy 07-31-[address] [facility] (11 sources) Alendronate Drug Allergy 07-31-[address] [facility] (11 sources) oxyCODONE Drug Allergy 07-31-[address] [facility] (11 sources) Sulfonamides (Antibiotic) Allergy to substance 07-31-19 24 Comment:as a young child, pt. cannot recall reaction [facility] (11 sources) Biaxin XL *MACROLIDES* Allergy to substance 07-28-[address] [facility] (3 sources) Acetaminophen / oxyCODONE Drug Allergy 06-05-19 25 Nausea Only [facility] (3 sources) Clarithromycin Allergy to substance 03-29-20 24 [facility] (3 sources) Lactobacillus acidophilus Drug Allergy 06-05-19 25 [facility] (3 sources) Quinolones (Antibiotic) Drug Intolerance 03-11-20 10 Rash [facility] (3 sources) Sulfonamides (Antibiotic) Drug Intolerance 03-11-20 10 [facility] (1 source) Ciprofloxacin; Translations: [Cipro] Drug Allergy [facility] Rep[facility] (1 source) symbalta; Translations: [symbalta] Propensity to adverse reactions to drug (disorder) [facility] Repository Medications Current Medications Medication Drug Class(es) Dates Sig (Normalized) Sig (Original) acetaminophen 325 mg / HYDROcodone bitartrate 5 mg oral tablet (20 sources) Opioid Agonist Start: 04-21-2024 End: 06-21-2024 take 1 tablet by mouth three times daily Hydrocodone-Aceta minophen 5-325 mg tablet Active 1 TAB PO Three times daily June 21, 2024 Start: 04-20-2024 End: 04-19-2024 take 1 tablet by mouth three times daily Hydrocodone-Acetaminophen 5-325 mg table t Discontinued 1 TAB PO Three times daily April 20, 2024 April 19, 2024 3:01pm Start: 04-20-2024 End: 04-19-2024 take 1 tablet [...] daily March 22, 2024 April 19, 2024 3:01pm Start: 08-03-2023 take 1 tablet by margarito [...] 1 tablet by mouth at bedtime HYDROcodone-acetaminophen ([place]) 5-325 MG tablet Take 1 tablet by mouth in the morning and 1 tablet in the evening and 1 tablet before bedtime. Active albuterol 0.83 mg/ml inhalation solution (20 sources) beta2-Adrenergic Agonist Start: 06-26-2024 take 3 mL by inhalation every month as needed for wheezing Albuterol Sulfate 2.5 mg /3 mL (0.083 %) solution for nebulization Active 2.5 MG INHALATION Four times daily as needed for shortness of breath or wheezing June 26, 2024 8:47am 3ml x 120 doses/month Start: 04-15-2024 End: 06-26-2024 take 2.5 mg by inhalation four times daily as needed for wheezing Albuterol Sulfate 2.5 mg /3 mL (0.083 %) solution for nebulization Discontinued 2.5 MG INHALATION Four times daily as needed for shortness of breath or wheezing June 10, 2024 2:02pm June 26, 2024 8:50am Start: 01-23-2024 End: 04-15-2024 take 1 dose by inhalation every four to six hours as needed Albuterol Sulfate 2.5 mg /3 mL (0.083 %) solution for nebulization Discontinued 0 .ROUTE .COMPLEX March 18, 2024 5:52pm April 15, 2024 4:17pm INHALE 1 vial via NEBULIZER EVERY 4 TO 6 HOURS NEEDED Start: 01-09-2024 End: 01-23-2024 take 2.5 mg by inhalation every four to six hours as needed Albuterol Sulfate 2.5 mg /3 mL (0.083 %) solution for nebulization Discontinued 2.5 MG INHALATION EVERY 4-6 HOURS as needed for bronchospasm January 09, 2024 12:00am January 23, 2024 10:48am Start: 09-08-2023 End: 03-12-2024 take 1 puff(s) by inhalation every four hours as needed Albuterol Sulfate 90 mcg/actuation HFA aerosol inhaler Discontinued 2 PUFF INHALATION Every 4 hours as needed for bronchospasm 8.5 November 01, 2023 9:22am December 05, [...] Active amitriptyline hydrochloride 50 mg oral tablet (17 sources) Tricyclic Antidepressant Start: 03-29-2024 take 1 tablet by mouth once daily at bedtime Amitriptyline 50 mg tablet Active 50 MG PO Daily at bedtime March 29, 2024 10:36am FreeTextSi tablet at bedtime Orally Once a [...] hydrochloride 300 mg extended release oral tablet (11 sources) Aminoketone Start: 04-15-2024 take 1 tablet by mouth once daily Bupropion Hcl 300 mg tablet extended release 24 hr Active 300 MG PO Daily 90 April 15, 2024 1:00am Start: 03-11-2024 End: 04-15-2024 take 1 tablet by mouth once daily Bupropion Hcl 150 mg tablet extended release 24 hr Discontinued 150 MG PO Daily March 11, 2024 1:00am April 15, 2024 4:39pm diclofenac potassium 50 mg oral tablet (1 source) Nonsteroidal Anti-inflammatory Drug Start: 12-17-2021 take 1 tablet by mouth twice daily diclofenac potassium 50 mg oral tablet 50 mg = 1 tab(s), Oral, BID, Refills(s) 0 Start Date: 12/17/21 Status: Ordered Fluticasone-Umecl idin-Vilanter (12 sources) Start: 04-15-2024 Fluticasone-Umec lidin-Vilanter (Trelegy Ellipta) 200-62.5-25 mcg blister with device Active 1 INH INHALATION Daily 3 April 15, 2024 4:40pm Rinse after use Start: 04-15-2024 Fluticasone-Um eclidin-Vilanter (Trelegy Ellipta) 200-62.5-25 mcg blister with device Active 1 INH INHALATION Daily 3 April 15, 2024 3:40pm Rinse after use Start: 03-29-2024 End: 04-15-2024 Rglhsbxzsba-Ccccjwyba-Autjjh er (Trelegy Ellipta) 200-62.5-25 mcg blister with device Discontinued 1 INH INHALATION Daily 60 March 29, 2024 10:38am April 15, 2024 4:41pm Rinse after use Start: 03-29-2024 End: 04-15-2024 Rvcmxrcxznc-Nzowgkgno-Gkxxeo er (Trelegy Ellipta) 200-62.5-25 mcg blister with device Discontinued 1 INH INHALATION Daily 60 March 29, 2024 9:38am April 15, 2024 3:41pm Rinse after use Start: 03-11-2024 End: 03-29-2024 Eeexxzdgtbw-Wdigprkhg-Xhxzyl er (Trelegy Ellipta) 200-62.5-25 mcg blister with device Discontinued 1 INH INHALATION Daily 180 March 11, 2024 1:00am March 29, 2024 10:38am Rinse after use Start: 03-11-2024 End: 03-29-2024 Cbqqyraspcf-Ulrlodwew-Wtkcnm er (Trelegy Ellipta) 200-62.5-25 mcg blister with device Discontinued 1 INH INHALATION Daily 180 March 11, 2024 12:00am March 29, 2024 9:38am Rinse after use omeprazole 20 mg delayed release oral capsule (8 sources) Proton Pump Inhibitor Start: 03-11-2024 take 1 capsule by mouth once daily Omeprazole 20 mg capsule,delayed release(DR/EC) Active 20 MG PO Daily March 11, 2024 1:00am Start: 12-22-2021 take 20 mg by mouth [...] Sig (Original) cefdinir 300 mg oral capsule (8 sources) Cephalosporin Antibacterial Start: 01-09-2024 End: 02-08-2024 take 1 capsule by mouth twice daily Cefdinir 300 mg capsule Discontinued 300 MG PO Twice daily January 09, 2024 12:00am February 08, 2024 1:53pm doxycycline hyclate 100 mg oral tablet (10 sources) Tetracycline-class Drug Start: 10-13-2023 End: 11-01-2023 [...] 2023 12:00am administer with spacer Fluticasone Propion-Salmeterol (16 sources) Corticosteroid, beta2-Adrenergic Agonist Start: 07-28-2023 End: [...] Fluticasone Propionate 44 mcg/actuation HFA aerosol inhaler (12 sources) Start: 01-24-2024 End: 02-08-2024 take 1 puff(s) by inhalation twice daily Fluticasone Propionate 44 mcg/actuation HFA aerosol inhaler Discontinued 1 PUFF INHALATION Twice daily 10.6 January 24, 2024 8:18am February 08, 2024 2:20pm administer with spacer Start: 01-24-2024 End: 02-08-2024 take 1 puff(s) [...] inhaler Discontinued 1 PUFF INHALATION Twice daily November 01, 2023 12:00am December 05, 2023 2:48pm administer with spacer Start: 11-01-2023 End: 12-05-2023 take 1 puff(s) by inhalation twice daily Fluticasone Propionate 44 mcg/actuation HFA aerosol inhaler Discontinued 1 PUFF INHALATION Twice daily October 31, 2023 11:00pm December 05, 2023 1:48pm administer with spacer methylPREDNISolone 4 mg oral tablet (9 sources) Corticosteroid Start: 11-01-2023 End: 12-05-2023 Methylprednisolone 4 mg tablets,dose pack Discontinued 0 PO per package directions November 01, [...] for 6 days Pneumoc 20-Agnes Conj-Dip Cr(Pf) (4 sources) Start: 03-11-2024 End: 03-29-2024 inject 1 mL by intramuscular injection once Pneumoc 20-Agnes Conj-Dip Cr(Pf) (Prevnar 20 (Pf)) 0.5 mL syringe Discontinued 0.5 ML IM Once 0.5 March 11, 2024 1:00am March 29, 2024 9:52am Start: 03-11-2024 End: 03-29-2024 inject 1 mL by intramuscular injection once Pneumoc 20-Agnes Conj-Dip Cr(Pf) (Prevnar 20 (Pf)) 0.5 mL syringe Discontinued 0.5 ML IM Once 0.5 March 11, 2024 12:00am March 29, 2024 8:52am predniSONE 20 mg oral tablet (8 sources) Start: 01-09-2024 End: 02-08-2024 take 1 tablet by mouth twice daily Prednisone 20 mg tablet Discontinued 20 MG PO Twice daily January 09, 2024 12:00am February 08, 2024 1:53pm pregabalin 50 mg oral capsule (11 sources) Start: 07-31-2023 End: 07-31-2023 take 1 capsule by mouth twice daily Pregabalin (Lyrica) 50 mg capsule Discontinued 50 MG PO Twice daily 60 July 31, 2023 12:00am July 31, 2023 4:27pm Rsvpref3 Antigen-As01e (Pf) (Arexvy (Pf)) 120 mcg/0.5 mL suspension for reconstitution (4 sources) Start: 03-11-2024 End: 03-29-2024 inject 1 mL by intramuscular injection once Rsvpref3 Antigen-As01e (Pf) (Arexvy (Pf)) 120 mcg/0.5 mL suspension for reconstitution Discontinued 0.5 ML IM Once March 11, 2024 1:00am March 29, 2024 10:04am Start: 03-11-2024 End: 03-29-2024 inject 1 mL by intramuscular injection once Rsvpref3 Antigen-As01e (Pf) (Arexvy (Pf)) 120 mcg/0.5 mL suspension for reconstitution Discontinued 0.5 ML IM Once March 11, 2024 12:00am March 29, 2024 9:04am 60 actuat tiotropium 0.82161 mg/actuat inhalation spray (12 sources) Anticholinergic Start: 02-08-2024 End: 03-11-2024 take 1 puff(s) by inhalation once daily in the morning Tiotropium [place] (Spiriva Respimat) 1.25 mcg/actuation mist Discontinued 2 PUFF INHALATION Every morning March 08, 2024 10:50am March 11, 2024 4:50pm tiZANidine 4 mg oral tablet (20 sources) Central alpha-2 Adrenergic Agonist Start: 12-17-2021 End: 06-21-2024 take 1 tablet by mouth three times daily Tizanidine 4 mg tablet Discontinued 4 MG PO Three times daily May 26, 2023 1:10pm August 28, 2023 3:10pm Problems Active Problems Problem Classification Problem Date Documented Date Episodic/Chronic Abdominal hernia (1 source) Diaphragmatic hernia without obstruction or gangrene; Translations: [DIAPH HERNIA W/O OBST/GANGRENE] Onset: 01-17-2022 Episodic Anal and rectal conditions (1 source) Rectal polyp; Translations: [RECTAL POLYP] Onset: 01-17-2022 Episodic Asthma (19 sources) Asthma; Translations: [Uncomplicated moderate persistent asthma] Onset: 06-05-2024 Resolved: 06-05-2024 12-17-2021 Chronic Chronic obstructive pulmonary disease and [...] BL] Onset: 01-17-2022 Chronic E Codes: Natural/environment (16 sources) Tick bite; Translations: [Bitten or stung by nonvenomous insect and other nonvenomous arthropods, initial encounter] Onset: 06-05-2024 Resolved: 06-05-2024 10-13-2023 Episodic Esophageal disorders (10 sources) Gastroesophageal reflux disease without esophagitis; Translations: [Gastro-esophageal reflux disease without esophagitis] Onset: 12-22-2021 Resolved: 06-05-2024 Chronic Gastritis and duodenitis (1 source) Unspecified chronic gastritis without bleeding; Translations: [UNS CHRONIC GASTRITIS W/O BLEEDING] Onset: 01-17-2022 Chronic Headache; including migraine (16 sources) Headache; Translations: [Headache] Onset: 06-05-2024 Resolved: 06-05-2024 10-13-2023 Episodic Immunizations and screening for infectious disease (10 sources) Patient encounter status; Translations: [Encounter for immunization] Onset: 06-05-2024 Resolved: 06-05-2024 03-11-2024 Episodic Osteoarthritis (17 sources) Primary gonarthrosis, bilateral; Translations: [Bilateral primary osteoarthritis of knee] Onset: 06-05-2024 Resolved: 06-05-2024 01-24-2024 Chronic Other aftercare (1 source) Other termite control servicer (current) drug therapy; Translations: [OTH IT SUPPORT SPECIALIST CURRENT DRUG THERAPY] Onset: 01-17-2022 Episodic Other aftercare (6 sources) Long-term current use of inhaled steroid; Translations: [exterminator helper termite (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 of 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] Onset: 06-05-2024 Resolved: 06-05-2024 04-15-2024 Episodic Other aftercare (3 sources) exterminator helper termite (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 of 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; Translations: [Long-term (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 of steroids] 04-15-2024 Episodic Other bone disease and musculoskeletal deformities (1 source) Other specified disorders of bone density and structure, unspecified site; Translations: [OTH D/O BONE DEN STRUCT UNS SITE] Onset: 01-17-2022 Episodic Other connective tissue disease (7 sources) Pain in right lower limb; Translations: [Pain in right leg] Onset: 06-05-2024 Resolved: 06-05-2024 03-29-2024 Episodic Other connective tissue disease (4 sources) Pain in right leg; Translations: [Pain in limb] 03-29-2024 Episodic Other fractures (7 sources) Fracture of rib; Translations: [Fracture of one rib, unspecified side, initial encounter for closed fracture] Onset: 06-05-2024 Resolved: 06-05-2024 02-18-2024 Episodic Other fractures (2 sources) Fracture of one rib, unspecified side, initial encounter for closed fracture; Translations: [Closed fracture of rib(s), unspecified] 02-08-2024 Episodic Other nervous system disorders (1 source) Numbness and tingling sensation of skin; Translations: [Anesthesia of skin] 04-01-2024 Episodic Other non-traumatic joint disorders (13 sources) Joint pain; Translations: [Pain in unspecified joint] Onset: 06-05-2024 Resolved: 06-05-2024 10-13-2023 Episodic Other non-traumatic joint disorders (3 sources) Pain in unspecified joint; Translations: [Pain in joint, site unspecified] 10-13-2023 Episodic Other non-traumatic joint disorders (18 sources) Pain in right knee; Translations: [Pain in both knees] Onset: 01-24-2024 Resolved: 06-05-2024 01-10-2024 Episodic Other screening for suspected conditions (not mental disorders or infectious disease) (13 sources) Screening for malignant neoplasm of colon done; Translations: [Encounter for screening for malignant neoplasm of colon] Onset: 12-22-2021 Episodic Residual codes; unclassified (1 source) Early satiety; Translations: [EARLY SATIETY] Onset: 01-17-2022 Episodic Residual codes; unclassified (8 sources) Menopause present; Translations: [Asymptomatic menopausal state] Onset: 06-05-2024 Resolved: 06-05-2024 02-08-2024 Episodic Residual codes; unclassified (3 sources) Asymptomatic menopausal state; Translations: [Symptomatic menopausal or female climacteric states] 02-08-2024 Episodic Spondylosis; intervertebral disc disorders; other back problems (20 sources) Lumbar radiculopathy; Translations: [Radiculopathy, lumbar region] Onset: 06-05-2024 Resolved: 06-05-2024 07-31-2023 Episodic Substance-related disorders (15 sources) Nicotine dependence, cigarettes, uncomplicated; Translations: [Tobacco dependence caused by cigarettes] Onset: 01-17-2022 Resolved: 06-05-2024 03-11-2024 Chronic Thyroid disorders (13 sources) Thyroid nodule; Translations: [Nontoxic single thyroid nodule] Onset: 06-05-2024 Resolved: 06-05-2024 03-29-2024 Chronic Unclassified (2 sources) Patient encounter status 12-22-2021 Unclassified (1 source) CONTACT W/AND (SUSP) EXPOS COVID-19; Translations: [CONTACT W/AND (SUSP) EXPOS COVID-19] Onset: 01-13-2022 Past or Other Problems Problem Classification Problem Date Documented Da te Episodic/Chronic Abdominal pain (10 sources) Epigastric pain; Translations: [Epigastric pain] Onset: 12-22-2021 Resolved: 06-05-2024 Episodic Disorders of lipid metabolism (5 sources) Very low density lipoprotinemia; Translations: [Pure hyperglyceridemia] Onset: 06-05-2024 Resolved: 06-05-2024 12-17-2021 Chronic Mood disorders (5 sources) Depressive disorder; Translations: [Depression] Onset: 06-05-2024 Resolved: 06-05-2024 12-17-2021 Chronic Other bone disease and musculoskeletal deformities (5 sources) Osteopenia; Translations: [Other specified disorders of bone density and structure, unspecified site] Onset: 06-05-2024 Resolved: 06-05-2024 12-17-2021 Episodic Other non-traumatic joint disorders (1 source) [...] unspecified] Onset: 06-05-2024 Resolved: 06-05-2024 12-17-2021 Episodic Results Test Name Value Interpretation Reference Range Facility Neurosurgery Office/Clinic N ju[facility] 06-06-2024 Neurosurgery Office/Clinic Note Chief Complaint back follow up History of Present Illness The patient is a pleasant 64-year-old right-handed female with history of chronic nicotine use, asthma and recently diagnosed COPD for which she is planned to see a rigger up in the near future. She also has [...] therapy without benefit. She is established with [facility] undergoing left L4-5 CARLOS and [...] though does not resolve. Oral narcotics including [place] which makes pain tolerable though does not resolve. Topical agents including lidocaine patches and [place] with limited benefit. Pain management injection modalities years ago with temporary benefit lasting only a few days. Physical therapy years ago without significant benefit. Chiropractic manipulation x 1 visit without benefit therefore patient never returned. Activity modification [1] Pain management injection modalities through [facility]. Initial injection targeted left L4-5 which she [...] No si (more content not included)... Normal [facility] Provider Letteron 06-06-2024 Provider Letter (Inserted Image. Gela ble to display) Cornelius Garrison MD [facility], [place] [address] Re: Cristine Manley Date of Visit: 06/06/2024 Dear Cornelius Garrison MD, This patient was recently seen in the neurosurgical office. Please see attached note for further details. Let me know if you have any questions or concerns. Sincerely, DEMARCUS Gan Providers: The following document(s) were included in the letter: June 06, 2024 09:36:40 EST - (06/06/2024) Neurosurgery Office Visit Note Normal [facility] Dominick 04-22-2024 L -------- -------- Specimen: [id number] Received: 04/24/24 Status: OMAR Hayes Num: [id number] Spec Type: Cytology Subm Dr: Cornelius Garrison MD Tissues: A FNA SLIDES NOPATH (INF RT THY) Procedures: Cyto Int and Re, PAPSTN/5 -------- Age/ Patient Sex Location Account Attending Physician -------- Manley,Cristine K 64/F [facility] [id number] Cornelius Garrison MD -------- SPEC NUM: [id number] RECD: 04/24/24 STATUS: OMAR REQ NUM: [id number] TORI: 04/22/24- DR: Cornelius Garrison MD ENTERED: 04/24/[address] [facility] [address]: Les Lee MD SPEC TYPE: Cytology DEPT: [facility] ENTERED BY: [id number] RECV BY: [id number] ORDERED: Cyto Int and Re, PAPSTN/5 ORDERED: Cyto Int and Re, PAPSTN/5 Supplemental Report Addendum 1 Entered: 05/10/24 Supplemental for findings of [facility] JV BASEBALL COACH: -Ensemble Blade [place] -Benign (risk of malignancy 4%) -Xpression [place] -N/A -Other Classifiers -BRAF p. V600E c. 1799T>A: Negative -RET/PTC1: Not detected -RET/PTC3: Not detected -MTC: Negative -Parathyroid: Negative TERT PROMOTER REGION: -Tests (2) not Performed (TNP) -------- Specimen: [id number] Received: 04/24/24 Status: OMAR Freddy Num: [id number] Spec Type: Cytology Subm Dr: Cornelius Garrison MD Tissues: A FNA SLIDES NOPATH (INF RT THY) Procedures: Cyto Int and Re, PAPSTN/5 -------- Patient: Cristine Manley [id number] (Continued) -------- Specimen: [id number] Received: 04/24/24 (Continued) Supplemental Report (Continued) Signed (signature on file) Gail Sheth MD 04/24/24 1439 -------- Specimen: [id number] Received: 04/24/24 Status: OMAR [place] Num: [id number] Spec Type: Cytology Subm Dr: Cornelius Garrison MD Tissues: A FNA SLIDES NOPATH (INF RT THY) Procedures: Cyto Int and Re, PAPSTN/5 -------- Patient: Cristine Manley [id number] (Continued) -------- Specimen: [id number] Received: 04/24/24 (Continued) Supplemental Report (Continued) Addendum Signed (signature on file) Pedro-Diogenes Sheth MD 05/10/24 1132 -------- Pathological Diagnosis Right thyroid nodule, inferior, FNA cytology -Adequate follicular groups in the ThinPrep smear, appropriate for assessment, consisting of small to occasionally slightly larger and reactive follicular cells, suggesting dimorphic population and the category 3 Watson system, atypia of the undetermined significance, otherwise [...] vial stored at -20 for microscopic examination. (PA/nh) Microscopic Description Microscopic examinations are performed supporting the above interpretation CPT Codes 03853 -------- -------- Specimen: [id number] Received: 04/24/24 Status: OMAR [place] Num: [id number] Spec Type: Cytology Subm Dr: Cornelius Garrison MD Tissues: A FNA SLIDES NOPATH (INF RT THY) Procedures: Cyto Int and Re, PAPSTN/5 -------- Patient: Cristine Manley [id number] (Continued) -------- Signed (signature on file) Gail Shteh MD 04/24/24 7722 Normal [facility] EMG 2 Extremitieson 04-01-20 EMG/NCS BLE Right L5/S1 radic Francisco S1/2 radic [facility] [place] 9-10 Nerveson 04-01-2024 EMG/NCS BLE Right L5/S1 radic Francisco S1/2 radic [facility] Provider Letteron 12-17-2024 Provider Letter (Inserted Image. Gela ble to display) Cornleius Garrison MD [address], [place] [address] Re: Cristine Manley Date of Visit: 03/25/2024 Dear Cornelius Garrison MD, This patient was recently seen in the neurosurgical office. Please see attached note for further details. Let me know if you have any questions or concerns. Sincerely, DEMARCUS Gan Providers: The following document(s) were included in the letter: March 25, 2024 17:40:13 EST - (03/25/2024) Neurosurgery Office Visit Note Normal [facility] Neurosurgery Office/Clinic N oteon 03-25-2024 Neurosurgery Office/Clinic Note Chief Complaint CT thoracic, lumbar, XR lumbar, hips and neck review History of Present Illness The patient is a pleasant 64-year-old right-handed female with history of chronic nicotine use, asthma and recently diagnosed COPD for which she is planned to see a rigger up in the near future. She also has [...] though does not resolve. Oral narcotics including [place] which makes pain tolerable though does not [...] increases slightl (more content not included)... Normal [facility] Basophils Auto (Bld) [#/Vol] on 03-21-2024 Basophils (Bld) [#/Vol] Automated basophil count 0.0-0.1 [facility] Basophils/100 WBC Auto (Bld) on 03-21-2024 Basophils/100 WBC (Bld) Automated basophil % 0.2-2.0 [facility] Eosinophils/100 WBC Auto (Bl d)on 03-21-2024 Eosinophils/100 WBC (Bld) Automated eosinophil % 0.9-7.0 [facility] Erythrocyte distribution wid th Auto (RBC) [Ratio]on 03-21-2024 Erythrocyte distribution width (RBC) [Ratio] Erythrocyte distribution width [Ratio] by Automated count 11.0-15.0 [facility] Hematocrit Auto (Bld) [Volum e fraction]on 03-21-2024 Hematocrit (Bld) [Volume fraction] Hematocrit [Volume Fraction] of Blood by Automated count 36.0-48.0 [facility] Hemoglobin [Mass/volume] in Bloodon 03-21-2024 Hemoglobin (Bld) [Mass/Vol] Hemoglobin [Mass/volume] in Blood 12.0-16.0 [facility] IgE [Units/volume] in Serum or Plasmaon 03-21-2024 IgE Qn IgE [Units/volume] i n Serum or Plasma 6-495 [facility] Comment on above: Performed at: [address], [place], [place] [id number] Director: Levi Pedroza MD, Phone: [phone] Laboratory - Hematology and Cell countson 03-21-2024 Immature granulocytes/100 WBC (Bld) 0.1 % 0.0-0.5 [facility] Leukocytes [#/volume] correc shant for nucleated erythrocytes in Blood by Automated counon 03-21-2024 WBC corrected for nucl RBC Auto (Bld) [#/Vol] Leukocytes [#/volume] corrected for nucleated erythrocytes in Blood by Automated coun 4.0-11.0 [facility] Lymphocytes Auto (Bld) [#/Vo l]on 03-21-2024 Lymphocytes (Bld) [#/Vol] Lymphocytes [#/volume] in Blood by Automated count 1.2-3.8 [facility] Lymphocytes/100 WBC Auto (Bl d)on 03-21-2024 Lymphocytes/100 WBC (Bld) Lymphocytes/100 leukocytes in Blood by Automated count Low 20.5-60.0 [facility] MCH Auto (RBC) [Entitic mass ]on 03-21-2024 MCH (RBC) [Entitic mass] MCH [Entitic mass] by Automated count 26.7-34.0 [facility] MCHC Auto (RBC) [Mass/Vol]on 03-21-2024 MCHC (RBC) [Mass/Vol] MCHC [Mass/volume] by Automated count 29.9-35.2 [facility] MCV Auto (RBC) [Entitic vol] on 03-21-2024 MCV (RBC) [Entitic vol] MCV [Entitic volume] by Automated count 81.0-99.0 [facility] Monocytes Auto (Bld) [#/Vol] on 03-21-2024 Monocytes (Bld) [#/Vol] Automated blood monocyte count 0.3-0.8 [facility] Monocytes/100 WBC Auto (Bld) on 03-21-2024 Monocytes/100 WBC (Bld) Automated monocyte % 1.7-12.0 [facility] Neutrophils Auto (Bld) [#/Vo l]on 03-21-2024 Neutrophils (Bld) [#/Vol] Neutrophils [#/volume] in Blood by Automated count High 1.4-6.5 [facility] Neutrophils/100 WBC Auto (Bl d)on 03-21-2024 Neutrophils/100 WBC (Bld) Automated neutrophil % 43.0-75.0 [facility] No Panel Informationon 03-21 Eosinophils # (Auto) 0.1 10 3/uL 0.0-0.7 [facility] Immature Granulocyte # (Auto) 0.01 10 3/uL 0.00-0.03 [facility] Platelet mean volume Auto (B ld) [Entitic vol]on 03-21-2024 Platelet mean volume (Bld) [Entitic vol] Platelet mean volume [Entitic volume] in Blood by Automated count 9.5-13.5 [facility] Platelets Auto (Bld) [#/Vol] on 03-21-2024 Platelets (Bld) [#/Vol] Platelets [#/volume] in Blood by Automated count 150-450 [facility] RBC Auto (Bld) [#/Vol]on RBC (Bld) [#/Vol] Erythrocytes [#/volu me] in Blood by Automated count 4.20-5.40 [facility] Provider Letteron 02-29-2024 Provider Letter (Inserted Image. Gela ble to display) Cornelius Whittaker [facility] [facility] [facility] [place] [address] Re: Cristine Manley Date of Visit: 02/23/2024 Dear Cornelius Garrison MD, Please see attached results on this mutual patient you have with [facility] Result Name Current Result CT Spine Thoracic/Lumbar Myelogram w/Con 02/23/2024 Let me know if you have any questions or concerns. Sincerely, Jaclyn Bliss [facility]lysis Investigator C C Providers: Normal [facility] CT Spine Thoracic/Lumbar Mye logram w/Conon [...] Electronically Signed in Other Vendor System) Normal [facility] PTon 02-23-2024 INR Coag (PPP) [Relative time] 1.0 {INR} Normal <=3.5 [facility] Comment on above: Result Comment: INR has no normal range. INR Therapeutic range is: 2.0-3.0 (AF, CVA, TIAs, DVT prophylaxis, acute DVT) 2.5-3.5 ([facility] heart valves, recurrent thrombosis/emboli) Performed By: #### P TINR #### [facility] [address] [place] [id number] PT Coag (PPP) [Time] 10.3 s Normal 9.2-12.0 [facility] Comment on above: Performed By: #### P TINR #### [address] [address] PTTon 02-23-2024 aPTT Coag (Bld) [Time] 24.8 s Normal 19.5-28.2 [facility] Comment on above: Performed By: #### P TT #### [address] [address] Platelet Counton 02-23-2024 Platelet 300 x10*3/mcL Normal 150-450 [facility] Comment on above: Performed By: #### P LTS #### [facility] [address] [place] [id number] XR Hip 2-3 Views Lefton 02-08 XR [...] Electronically Signed in Other Vendor System) Normal [facility] XR Myelography Spine 2 or More [...] Electronically Signed in Other Vendor System) Normal [facility] XR Spine Cervical 4 or 5 Vie [...] Electronically Signed in Other Vendor System) Normal [facility] XR Spine Lumbosacral Bending 2-3 Viewson [...] Electronically Signed in Other Vendor System) Normal [facility] Neurosurgery Office/Clinic N oteon 02-13-2024 Neurosurgery Office/Clinic Note Chief Complaint Back lumbar pain radiculopathy consult History of Present Illness The patient is a pleasant 64-year-old right-handed female with history of chronic nicotine use, asthma and recently diagnosed COPD for which she is planned to see a rigger up in the near future. She also has [...] though does not resolve. Oral narcotics including [place] which makes pain tolerable though does not [...] Newly diagnosed COPD, scheduled to see a rigger up in the near future Chronic nicotine use [...] marijuana use. 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 She denies any Worker's Comp. related claims regarding today's visit FAMILY HISTORY: Lung cancer: Father Diabetes mellitus: Mother Hypertension: Mother Review of Systems Constitutional: [No fevers, chills, sweats] Eye: [No recent visual problems] ENMT: [ (more content not included)... Normal [facility] Provider Letteron 02-13-2024 Provider Letter (Inserted Image. Gela ble to display) Cornelius Garrison MD [address] [place] [address] [place] [address] Re: Cristine Manley Date of Visit: 02/13/2024 Dear Cornelius Garrison MD, This patient was recently seen in the neurosurgical office. Please see attached note for further details. Let me know if you have any questions or concerns. Sincerely, DEMARCUS Gan Providers: The following document(s) were included in the letter: February 13, 2024 09:39:53 EST - (02/13/2024) Neurosurgery Office Visit Note Normal [facility] XR knee BI 3V - NOT FOR ER U Sanam 01-24-2024 XR knee BI 3V - NOT FOR ER USE [facility] [address] [place] [address] XRay Report Signed Patient: Cristine Manley MR#: [id number] 53 : 1960 Acct:[id number] Age/Sex: 64 / F ADM Date: 01/24/24 Loc: [facility] Room: Type: [facility] Attending Dr: Alexandro Galvez DO [...] Sunday Graham M.D.01/24/2024 3:45 PM Dictation Location: [place] [address] Transcribed By: [facility] 01/24/241544 Dictated By: Sunday Graham II, MD 01/24/24 154 Signed By: 01/24/24 154 Normal [facility] Basophils Auto (Bld) [#/Vol] on 01-19-2024 Basophils (Bld) [#/Vol] 0.0 10 3/uL 0.0-0.1 [facility] Basophils (Bld) [#/Vol] Automated basophil count 0.0-0.1 [facility] Basophils/100 WBC Auto (Bld) on 01-19-2024 Basophils/100 WBC (Bld) 0.2 % 0.2-2.0 [facility] Basophils/100 WBC (Bld) Automated basophil % 0.2-2.0 [facility] Eosinophils/100 WBC Auto (Bl d)on 01-19-2024 Eosinophils/100 WBC (Bld) 4.3 % 0.9-7.0 [facility] Eosinophils/100 WBC (Bld) Automated eosinophil % 0.9-7.0 [facility] Erythrocyte distribution wid th Auto (RBC) [Ratio]on 01-19-2024 Erythrocyte distribution width (RBC) [Ratio] 13.1 % 11.0-15.0 [facility] Erythrocyte distribution width (RBC) [Ratio] Erythrocyte distribution width [Ratio] by Automated count 11.0-15.0 [facility] Estimated glomerular filtrat ion rate (GFR) non- Americanon 01-19-2024 GFR/1.73 sq M.predicted among non-blacks MDRD (S/P/Bld) [Vol rate/Area] mL/min/{1.73_m2} >=60 mL/min/1.73 m 2 [facility] GFR/1.73 sq M.predicted among non-blacks MDRD (S/P/Bld) [Vol rate/Area] Estimated glomerular filtration rate (GFR) non- >=60 mL/min/1.73 m 2 [facility] Fibrin D-dimer [Presence] in Platelet poor plasma by Latex agglutinationon 01-19-2024 Fibrin D-dimer LA Ql (PPP) 0.43 mg/L FEU <=0.59 [facility] Comment on above: Increases in D-Dimer concentration [...] agglutination <=0.59 [facility] Comment on above: Increases in D-Dimer concentration [...] % 36.0-48.0 [facility] Hematocrit (Bld) [Volume fraction] Hematocrit [Volume Fraction] of Blood by Automated count 36.0-48.0 [facility] Hemoglobin [Mass/volume] in Bloodon 01-19-2024 Hemoglobin (Bld) [Mass/Vol] 12.8 g/dL 12.0-16.0 [facility] Hemoglobin (Bld) [Mass/Vol] Hemoglobin [Mass/volume] in Blood 12.0-16.0 [facility] Laboratory - Chemistry and C hemistry - challengeon 01-19-2024 Calcium [Mass/Vol] 9.0 mg/dL 8.5-10.1 [facility] Chloride [Moles/Vol] 105 mmol/L 98-107 [facility] CO2 [Moles/Vol] 28.7 mmol/L 21.0-32.0 [facility] Creatinine [Mass/Vol] 0.92 mg/dL 0.55-1.02 [facility] GFR/1.73 sq M.predicted MDRD (S/P/Bld) [Vol rate/Area] mL/min/{1.73_m2} >=60 mL/min/1.73 m 2 [facility] Glucose [Mass/Vol] 78 mg/dL 74-106 [facility] Potassium [Moles/Vol] 4.0 mmol/L 3.5-5.1 [facility] Sodium [Moles/Vol] 138 mmol/L 136-145 [facility] Urea nitrogen [Mass/Vol] 27.0 mg/dL High 7.0-18.0 [facility] Urea nitrogen/Creatinin e [Mass ratio] 29.3 mg/mg [facility] Laboratory - Hematology and Cell countson 01-19-2024 Immature granulocytes/100 WBC (Bld) 0.3 % 0.0-0.5 [facility] Laboratory - Microbiology an d Antimicrobial susceptibilityon 01-19-2024 SARS-CoV-2 (COVID-19) RNA JOSELUIS+probe Ql (Unsp spec) Negative NEGATIVE [facility] Comment on above: This test has not [...] High 4.0-11.0 [facility] WBC corrected for nucl RBC Auto (Bld) [#/Vol] Leukocytes [#/volume] corrected for nucleated erythrocytes in Blood by Automated coun High 4.0-11.0 [facility] Lymphocytes Auto (Bld) [#/Vo l]on 01-19-2024 Lymphocytes (Bld) [#/Vol] 4.4 10 3/uL High 1.2-3.8 [facility] Lymphocytes (Bld) [#/Vol] Lymphocytes [#/volume] in Blood by Automated count High 1.2-3.8 [facility] Lymphocytes/100 WBC Auto (Bl d)on 01-19-2024 Lymphocytes/100 WBC (Bld) 35.0 % 20.5-60.0 [facility] Lymphocytes/100 WBC (Bld) Lymphocytes/100 leukocytes in Blood by Automated count 20.5-60.0 [facility] MCH Auto (RBC) [Entitic mass ]on 01-19-2024 MCH (RBC) [Entitic mass] 29.4 pg 26.7-34.0 [facility] MCH (RBC) [Entitic mass] MCH [Entitic mass] by Automated count 26.7-34.0 [facility] MCHC Auto (RBC) [Mass/Vol]on 01-19-2024 MCHC (RBC) [Mass/Vol] 32.4 g/dL 29.9-35.2 [facility] MCHC (RBC) [Mass/Vol] MCHC [Mass/volume] by Automated count 29.9-35.2 [facility] MCV Auto (RBC) [Entitic vol] on 01-19-2024 MCV (RBC) [Entitic vol] 90.6 fL 81.0-99.0 [facility] MCV (RBC) [Entitic vol] MCV [Entitic volume] by Automated count 81.0-99.0 [facility] Monocytes Auto (Bld) [#/Vol] on 01-19-2024 Monocytes (Bld) [#/Vol] 1.2 10 3/uL High 0.3-0.8 [facility] Monocytes (Bld) [#/Vol] Automated blood monocyte count High 0.3-0.8 [facility] Monocytes/100 WBC Auto (Bld) on 01-19-2024 Monocytes/100 WBC (Bld) 9.5 % 1.7-12.0 [facility] Monocytes/100 WBC (Bld) Automated monocyte % 1.7-12.0 [facility] Neutrophils Auto (Bld) [#/Vo l]on 01-19-2024 Neutrophils (Bld) [#/Vol] 6.4 10 3/uL 1.4-6.5 [facility] Neutrophils (Bld) [#/Vol] Neutrophils [#/volume] in Blood by Automated count 1.4-6.5 [facility] Neutrophils/100 WBC Auto (Bl d)on 01-19-2024 Neutrophils/100 WBC (Bld) 50.7 % 43.0-75.0 [facility] Neutrophils/100 WBC (Bld) Automated neutrophil % 43.0-75.0 [facility] No Panel Informationon 01-18 Bedside Influenza Type A Antigen Negative [facility] Comment on above: Negative for Flu A p rotein antigen. Infection due to Flu Acannot be ruled out. Flu A antigen in the sample may bebelow the detection limit of the test. Bedside Influenza Type B Antigen Negative [facility] Comment on above: Negative for Flu B p rotein antigen. Infection due to Flu Bcannot be ruled out. Flu B antigen in the sample may bebelow the detection limit of the test. Eosinophils # (Auto) 0.5 10 3/uL 0.0-0.7 [facility] Immature Granulocyte # (Auto) 0.04 10 3/uL High 0.00-0.03 [facility] Troponin I High Sensitivity 5.8 pg/mL 4.0-51.3 [facility] Comment on above: CUT-OFF POINTS HAVE BEEN [...] Low 9.5-13.5 [facility] Platelet mean volume (Bld) [Entitic vol] Platelet mean volume [Entitic volume] in Blood by Automated count Low 9.5-13.5 [facility] Platelets Auto (Bld) [#/Vol] on 01-19-2024 Platelets (Bld) [#/Vol] 304 10 3/uL 150-450 [facility] Platelets (Bld) [#/Vol] Platelets [#/volume] in Blood by Automated count 150-450 [facility] RBC Auto (Bld) [#/Vol]on RBC (Bld) [#/Vol] 4.36 10 6/uL 4.20-5.40 [facility] RBC (Bld) [#/Vol] Erythrocytes [#/volu me] in Blood by Automated count 4.20-5.40 [facility] Serum or plasma anion gap de terminationon 01-19-2024 Anion gap [Moles/Vol] 8.3 mmol/L [facility] Anion gap [Moles/Vol] Serum or plasma anion gap determination [facility] Borrelia burgdorferi IgG+IgM Ab [Presence] in Serum by Immunoassayon 10-13-2023 B. burgdorferi IgG+IgM IA Ql (S) Negative Negative [facility] Comment on above: Lyme antibodies not detected. Reflex testing is notindicated.No laboratory evidence of infection with B. burgdorferi(Lyme disease). Negative results may occur in patientsrecently infected (less than or equal to 14 days) with B.burgdorferi. If recent infection is suspected, repeattesting on a new sample collected in 7 to 14 days isrecommended.Performed at: - [facility] [id number] Director: Jeovany Bazan PhD, Phone: [phone] General Surgery Office/Clini c Noteon 02-21-2022 General [...] Primary malignant neoplasm of lung: Father. Normal [facility] Comment on above: Result Comment: Elec [...] Tobacco user Very low density lipoprotinemia Normal [facility] Reminderson 02-01-2022 Reminders - From: Sushma Shell LPN To: GSN - Clinical; Sent: 02/01/2022 16:18:52 EDT Show up: 04/12/2022 07:00:00 EST Subject: EGD recall Due Date/Time: 05/04/2022 07:00:00 EST Reminder/Recall Patient is due to repeat EGD 05/04/2022 due to gastric ulcer. Normal [facility] Outside Colonoscopyon 2021 Outside Colonoscopy [id number]#[id number]:127 Normal [facility] Pathology Noteon 01-14-2022 Pathology Note [id number]#[id number]:127 Normal [facility] Reminderson 01-14-2022 Reminders - From: Sushma Shell LPN To: GSN - Clinical; Sent: 01/14/2022 08:07:35 EDT Show up: 12/14/2031 07:00:00 EDT Subject: colonoscopy recall Due Date/Time: 01/13/2032 07:00:00 EDT Reminder/Recall Patient is due for screening colonoscopy 01/13/2032. Normal [facility] Pre-Certification Formon Pre-Certification Form [id number]#1.00CD:127 Normal [facility] Lab Reportson 01-11-2022 Lab Reports [id number]#[id number]:127 Normal [facility] Covid-19 PCR ([facility])on SARS-CoV-2 (COVID-19) RNA JOSELUIS+probe Ql (Unsp spec) Not detected Normal NOT DETECTED [facility] Comment on above: Result Comment: This test is not yet approved or cleared by the [place] FDA. When there are no FDA-approved or cleared tests available, and other criteria are met, FDA can make tests available under an emergency access mechanism called an Emergency Use Authorization (EUA). The EUA for this test is supported by the System Integration Engineer of Health and Human Service's (HHS's) declaration [...] SARS-CoV-2. Performed By: #### C VDTB #### [facility] [address] [place] [address] Dr. Pablo Sheth Physician Orderon 12-23-2021 Physician Order [id number]#[id number]:127 Normal [facility] Ambulatory Visit Summaryon 0 12-22-2021 Ambulatory [...] Tobacco user Very low density lipoprotinemia Normal [facility] CBC AUTO DIFFon 12-17-2021 BASO # 0.1 103/ul Normal 0.0-0.1 [facility] Comment on above: Performed By: #### D ATCBC #### [facility] [address] [place] [address] [address] Pablo Sheth Basophils/100 WBC (Bld) 0.4 % Normal 0.2-2.0 [facility] Comment on above: Performed By: #### D ATCBC #### [facility] [address] [place] [address] [address] Pablo Sheth EO # 0.3 103/ul Normal 0.0-0.7 [facility] Comment on above: Performed By: #### D ATCBC #### [facility] [address] [place] [address] [address] Pablo Sheth Eosinophils/100 WBC (Bld) 2.4 % Normal 0.9-7.0 [facility] Comment on above: Performed By: #### D ATCBC #### [facility] [address] [place] [address] [address] Pablo Sheth Erythrocyte distribution width (RBC) [Ratio] 13.2 % Normal 11.0-15.0 [facility] Comment on above: Performed By: #### D ATCBC #### [facility] [address] [place] [address] [address] Pablo Sheth Hematocrit (Bld) [Volume fraction] 42.6 % Normal 36.0-48.0 [facility] Comment on above: Performed By: #### D ATCBC #### [facility] [address] [place] [address] Dr. Palbo Sheth Hemoglobin (Bld) [Mass/Vol] 13.7 g/dL Normal 12.0-16.0 [facility] Comment on above: Performed By: #### D ATCBC #### [facility] [address] [place] [address] [address] Pablo Sheth IG # 0.05 10e3/ul Critically high 0.00-0.03 [facility] Comment on above: Performed By: #### D ATCBC #### [facility] [address] [place] [address] [address] Pablo Sheth IG % 0.4 % Normal 0.0-0.5 [facility] Comment on above: Performed By: #### D ATCBC #### [facility] [address] [place] [address] [address] Pablo Sheth LYMPH # 2.8 103/ul Normal 1.2-3.8 [facility] Comment on above: Performed By: #### D ATCBC #### [facility] [address] [place] [address] [address] Pablo Sheth Lymphocytes/100 WBC (Bld) 20.9 % Normal 20.5-60.0 [facility] Comment on above: Performed By: #### D ATCBC #### [facility] [address] [place] [address] [address] Pablo Sheth MCH (RBC) [Entitic mass] 29.2 pg Normal 26.7-34.0 [facility] Comment on above: Performed By: #### D ATCBC #### [facility] [address] [place] [address] [address] Pablo Sheth MCHC (RBC) [Mass/Vol] 32.2 g/dL Normal 29.9-35.2 [facility] Comment on above: Performed By: #### D ATCBC #### [facility] [address] [place] [address] [address] Pablo Sheth MCV (RBC) [Entitic vol] 90.8 fL Normal 81.0-99.0 [facility] Comment on above: Performed By: #### D ATCBC #### [facility] [address] [place] [address] [address] Pablo Sheth MONO # 1.0 103/ul Critically high 0.3-0.8 [facility] Comment on above: Performed By: #### D ATCBC #### [facility] [address] [place] [address] Dr. Pablo Sheth Monocytes/100 WBC (Bld) 7.5 % Normal 1.7-12.0 [facility] Comment on above: Performed By: #### D ATCBC #### [facility] [address] [address] [address] Pablo Sheth NEUT # 9.2 103/ul Critically high 1.4-6.5 [facility] Comment on above: Performed By: #### D ATCBC #### [facility] [address] [place] [address] Dr. Pablo Sheth Neutrophils/100 WBC (Bld) 68.4 % Normal 43.0-75.0 [facility] Comment on above: Performed By: #### D ATCBC #### [facility] [address] [place] [address] Dr. Pablo Sheth Platelet mean volume (Bld) [Entitic vol] 9.3 fL Critically low 9.5-13.5 [facility] Comment on above: Performed By: #### D ATCBC #### [facility] [address] [place] [address] Dr. Pablo Sheth PLT 313 103/ul Normal 150-450 [facility] Comment on above: Performed By: #### D ATCBC #### [facility] [address] [place] [address] Dr. Pablo Sheth RBC 4.69 106/ul Normal 4.20-5.40 [facility] Comment on above: Performed By: #### D ATCBC #### [facility] [address] [place] [address] Dr. Pablo Sheth WBC 13.4 103/ul Critically high 4.0-11.0 [facility] Comment on above: Performed By: #### D ATCBC #### [facility] [address] [place] [address] Dr. Pablo Sheth BERKLEY - TSHon 12-17-2021 TSH 1.241 uIU/mL Normal 0.358-3.740 [facility] Comment on above: Performed By: #### D ATTSH, DATBMP #### [facility] [address] [place] [address] Dr. Pablo Sheth TSH RANGE SEE BELOW Normal [facility] Comment on above: Result Comment: <0.3 4 UIU/ml HYPERTHYROID 0.34-5.60 UIU/ml EUTHYROID >5.60 UIU/ml HYPOTHYROID Performed By: #### D ATTSH, DATBMP #### [facility] [address] [place] [address] Dr. Pablo Sheth BERKLEY- BMP WITH LIPIDon 2021 Anion gap [Moles/Vol] 11.9 mmol/L Normal [facility] Comment on above: Performed By: #### D ATTSH, DATBMP #### [facility] [address] [place] [address] Dr. Pablo Sheth Calcium [Mass/Vol] 9.1 mg/dL Normal 8.5-10.1 [facility] Comment on above: Performed By: #### D ATTSH, DATBMP #### [facility] [address] [place] [address] Dr. Pablo Sheth Chloride [Moles/Vol] 104 mmol/L Normal 98-107 [facility] Comment on above: Performed By: #### D ATTSH, DATBMP #### [facility] [address] [place] [address] Dr. Pablo Sheth Cholesterol [Mass/Vol] 207 mg/dL Critically high <=200 [facility] Comment on above: Performed By: #### D ATTSH, DATBMP #### [facility] [address] [place] [address] Dr. Pablo Sheth Cholesterol in HDL [Mass/Vol] 52 mg/dL Normal 40-60 [facility] Comment on above: Performed By: #### D ATTSH, DATBMP #### [facility] [address] [place] [address] Dr. Pablo Sheth Cholesterol in LDL [Mass/Vol] 141.4 mg/dL Normal [facility] Comment on above: Performed By: #### D ATTSH, DATBMP #### [facility] [address] [address] [address] Pablo Sheth CO2 [Moles/Vol] 29.3 mmol/L Normal 21.0-32.0 [facility] Comment on above: Performed By: #### D ATTSH, DATBMP #### [facility] [address] [address] [address] Pablo Sheth Creatinine [Mass/Vol] 0.77 mg/dL Normal 0.55-1.02 [facility] Comment on above: Performed By: #### D ATTSH, DATBMP #### [facility] [address] [place] [address] Dr. Pablo Sheth EGFR-AF TUVALUAN >60 Normal >=60 [facility] Comment on above: Performed By: #### D ATTSH, DATBMP #### [facility] [address] [address] [address] Pablo Sheth EGFR-NON AF TUVALUAN >60 Normal >=60 [facility] Comment on above: Performed By: #### D ATTSH, DATBMP #### [facility] [address] [address] [address] Pablo Sheth Glucose [Mass/Vol] 109 mg/dL Critically high 74-106 [facility] Comment on above: Performed By: #### D ATTSH, DATBMP #### [facility] [address] [address] [address] Pablo Sheth HDL NORMAL > or = 60 mg/dl - LO W CARDIOVASCULAR RISK <40 mg/dl - HIGH CARDIOVASCULAR RISK Normal [facility] Comment on above: Performed By: #### D ATTSH, DATBMP #### [facility] [address] [place] [address] Dr. Pablo Sheth LDL CALC NORMAL SEE BELOW Normal [facility] Comment on above: Result Comment: <100 mg/dl OPTIMAL 100 - 129 mg/dl NEAR OR ABOVE OPTIMAL 130 - 159 mg/dl BORDERLINE HIGH 160 - 189 mg/dl HIGH >190 mg/dl VERY HIGH Performed By: #### D ATTSH, DATBMP #### [facility] [address] [address] [address] Pablo Sheth Potassium [Moles/Vol] 4.2 mmol/L Normal 3.5-5.1 [facility] Comment on above: Performed By: #### D ATTSH, DATBMP #### [facility] [address] [address] [address] Pablo Sheth Sodium [Moles/Vol] 141 mmol/L Normal 136-145 [facility] Comment on above: Performed By: #### D ATTSH, DATBMP #### [facility] [address] [address] [address] Pablo Sheth Triglyceride [Mass/Vol] 68 mg/dL Normal <=150 [facility] Comment on above: Performed By: #### D ATTSH, DATBMP #### [facility] [address] [place] [address] Dr. Pablo Sheth Urea nitrogen [Mass/Vol] 26.0 mg/dL Critically high 7.0-18.0 [facility] Comment on above: Performed By: #### D ATTSH, DATBMP #### [facility] [address] [place] [address] Dr. Pablo Sheth Urea nitrogen/Creatinin e [Mass ratio] 33.8 mg/mg Normal [facility] Comment on above: Performed By: #### D ATTSH, DATBMP #### [facility] [address] [place] [address] Dr. Pablo Sheth VLDL CALC 13.6 mg/dL Normal [facility] Comment on above: Performed By: #### D ATTSH, DATBMP #### [facility] [address] [address] [address] Pablo Sheth Physician Referralon 022 Physician Referral [id number]:[id number] Normal [facility] Vital Signs Date Time Vital Sign Value Performing Clinician Facility 06-26-2024 08:30-0400 Body height 170.18 cm Cornelius Garrison MD Work Phone: [facility] 06-26-2024 08:30-0400 Body mass index (BMI) [Ratio] 27.6 kg/m2 Cornelius Garrison MD Work Phone: [facility] 06-26-2024 08:30-0400 Body weight 79.94 kg Cornelius Garrison MD Work Phone: [facility] 06-26-2024 08:30-0400 Diastolic blood pressure 107 mm[Hg] Cornelius Garrison MD Work Phone: [facility] 06-26-2024 08:30-0400 Heart rate 80 /min Cornelius Garrison MD Work Phone: [facility] 06-26-2024 08:30-0400 Respiratory rate 12 /min Cornelius Garrison MD Work Phone: [facility] 06-26-2024 08:30-0400 SaO2% (BldA) [Mass fraction] 95 % Cornelius Garrison MD Work Phone: [facility] 06-26-2024 08:30-0400 Systolic blood pressure 168 mm[Hg] Cornelius Garrison MD Work Phone: [facility] 06-05-2024 14:11-0500 Body height 170.2 cm Geoff Walker DO Work Phone: [facility] 06-05-2024 14:11-0500 Body mass index (BMI) [Ratio] 27.72 kg/m2 Geoff Walker DO Work Phone: [facility] 06-05-2024 14:11-0500 Body weight 80.29 kg Geoff Walker DO Work Phone: [facility] 04-15-2024 15:14-0500 Body height 170.18 cm Cornelius Garrison MD Work Phone: [facility] 04-15-2024 15:14-0500 Body mass index (BMI) [Ratio] 27.7 kg/m2 Cornelius Garrison MD Work Phone: [facility] 04-15-2024 15:14-0500 Body temperature 98.4 [degF] Cornelius Garrison MD Work Phone: [facility] 04-15-2024 15:14-0500 Body weight 80.28 kg Cornelius Garrison MD Work Phone: [facility] 04-15-2024 15:14-0500 Diastolic blood pressure 82 mm[Hg] Cornelius Garrison MD Work Phone: [facility] 04-15-2024 15:14-0500 Heart rate 83 /min Cornelius Garrison MD Work Phone: [facility] 04-15-2024 15:14-0500 Respiratory rate 20 /min Cornelius Garrison MD Work Phone: [facility] 04-15-2024 15:14-0500 SaO2% (BldA) [Mass fraction] 96 % Cornelius Garrison MD Work Phone: [facility] 04-15-2024 15:14-0500 Systolic blood pressure 128 mm[Hg] Cornelius Garrison MD Work Phone: [facility] 03-29-2024 08:56-0500 Body height 170.18 cm Cornelius Garrison MD Work Phone: [facility] 03-29-2024 08:56-0500 Body mass index (BMI) [Ratio] 27.2 kg/m2 Cornelius Garrison MD Work Phone: [facility] 03-29-2024 08:56-0500 Body weight 78.92 kg Cornelius Garrison MD Work Phone: [facility] 03-29-2024 08:56-0500 Diastolic blood pressure 86 mm[Hg] Cornelius Garrison MD Work Phone: [facility] 03-29-2024 08:56-0500 Heart rate 91 /min Corneilus Garrison MD Work Phone: [facility] 03-29-2024 08:56-0500 SaO2% (BldA) [Mass fraction] 95 % Cornelius Garrison MD Work Phone: [facility] 03-29-2024 08:56-0500 Systolic blood pressure 124 mm[Hg] Cornelius Garrison MD Work Phone: [facility] 03-11-2024 15:29-0500 Body height 170.18 cm Cornelius Garrison MD Work Phone: [facility] 03-11-2024 15:29-0500 Body mass index (BMI) [Ratio] 27.8 kg/m2 Cornelius Garrison MD Work Phone: [facility] 03-11-2024 15:29-0500 Body temperature 97.6 [degF] Cornelius Garrison MD Work Phone: [facility] 03-11-2024 15:29-0500 Body weight 80.73 kg Cornelius Garrison MD Work Phone: [facility] 03-11-2024 15:29-0500 Diastolic blood pressure 80 mm[Hg] Cornelius Garrison MD Work Phone: [facility] 03-11-2024 15:29-0500 Heart rate 82 /min Cornelius Garrison MD Work Phone: [facility] 03-11-2024 15:29-0500 Respiratory rate 20 /min Cornelius Garrison MD Work Phone: [facility] 03-11-2024 15:29-0500 SaO2% (BldA) [Mass fraction] 98 % Cornelius Garrison MD Work Phone: [facility] 03-11-2024 15:29-0500 Systolic blood pressure 134 mm[Hg] Cornelius Garrison MD Work Phone: [facility] 02-08-2024 13:55-0400 Body height 170.18 cm MD Cornelius Garrison Work Phone: [facility] 02-08-2024 13:55-0400 Body mass index (BMI) [Ratio] 27.9 kg/m2 MD Cornelius Garrison Work Phone: [facility] 02-08-2024 13:55-0400 Body weight 80.9 kg MD Cornelius Garrison Work Phone: [facility] 02-08-2024 13:55-0400 Diastolic blood pressure 78 mm[Hg] MD Cornelius Garrison Work Phone: [facility] 02-08-2024 13:55-0400 Heart rate 74 /min MD Cornelius Garrison Work Phone: [facility] 02-08-2024 13:55-0400 SaO2% (BldA) [Mass fraction] 96 % MD Cornelius Garrison Work Phone: [facility] 02-08-2024 13:55-0400 Systolic blood pressure 110 mm[Hg] MD Cornelius Garrison Work Phone: [facility] 01-24-2024 14:35-0400 Body height 170.18 cm MD Cornelius Garrison Work Phone: [facility] 01-24-2024 14:35-0400 Body mass index (BMI) [Ratio] 28.3 kg/m2 MD Cornelius Garrison Work Phone: [facility] 01-24-2024 14:35-0400 Body weight 82.21 kg MD Cornelius Garrison Work Phone: [facility] 01-09-2024 15:17-0400 Body height 167.64 cm [facility] 01-09-2024 15:17-0400 Body mass index (BMI) [Ratio] 28.2 kg/m2 [facility] 01-09-2024 15:17-0400 Body weight 79.37 kg [facility] 01-09-2024 15:17-0400 Diastolic blood pressure 91 mm[Hg] [facility] 01-09-2024 15:17-0400 Heart rate 76 /min [facility] 01-09-2024 15:17-0400 SaO2% (BldA) [Mass fraction] 97 % [facility] 01-09-2024 15:17-0400 Systolic blood pressure 135 mm[Hg] [facility] 11-01-2023 08:57-0400 Body height 167.64 cm [facility] 11-01-2023 08:57-0400 Body mass index (BMI) [Ratio] 28.2 kg/m2 [facility] 11-01-2023 08:57-0400 Body weight 79.37 kg [facility] 11-01-2023 08:57-0400 Diastolic blood pressure 90 mm[Hg] [facility] 11-01-2023 08:57-0400 Heart rate 63 /min [facility] 11-01-2023 08:57-0400 Systolic blood pressure 136 mm[Hg] [facility] 10-13-2023 09:19-0400 Body height 167.64 cm [facility] 10-13-2023 09:19-0400 Body mass index (BMI) [Ratio] 28 kg/m2 [facility] 10-13-2023 09:19-0400 Body weight 78.92 kg [facility] 10-13-2023 09:19-0400 Diastolic blood pressure 76 mm[Hg] [facility] 10-13-2023 09:19-0400 Heart rate 78 /min [facility] 10-13-2023 09:19-0400 SaO2% (BldA) [Mass fraction] 98 % [facility] 10-13-2023 09:19-0400 Systolic blood pressure 118 mm[Hg] [facility] 07-31-2023 10:09-0400 Body height 167.64 cm [facility] 07-31-2023 10:09-0400 Body mass index (BMI) [Ratio] 28.8 kg/m2 [facility] 07-31-2023 10:09-0400 Body weight 80.9 kg [facility] 07-31-2023 10:09-0400 Diastolic blood pressure 89 mm[Hg] [facility] 07-31-2023 10:09-0400 Heart rate 74 /min [facility] 07-31-2023 10:09-0400 Systolic blood pressure 138 mm[Hg] [facility] 12-22-2021 14:20-0400 Blood Pressure Location Mihaela KERNL [facility] [place] 12-22-2021 14:20-0400 Diastolic blood pressure 80 mm[Hg] Mihaela NILL [facility] [place] 12-22-2021 14:20-0400 Heart rate 72 /min Mihaela NILL [facility] [place] 12-22-2021 14:20-0400 Respiratory rate 16 /min Mihaela NILL [facility] [place] 12-22-2021 14:20-0400 Systolic blood pressure 116 mm[Hg] Mihaela NILL [facility] [place] Encounters Encounter Date Encounter Type Care Provider Facility Start: 06-26-2024 End: 06-26-2024 ambulatory Cornelius Garrison MD Work Phone: [facility] Work Phone: Start: 06-26-2024 End: 06-26-2024 Patient encounter procedure Cornelius Garrison MD Work Phone: [facility] Work Phone: Start: 06-17-2024 End: 06-17-2024 ambulatory Cornelius Garrison MD Facility:[facility] Start: 06-06-2024 End: 06-06-2024 ambulatory Ofelia Arceo PA-C Facility:[facility] Start: 06-05-2024 End: 06-05-2024 Office outpatient new 45 minutes Goeff Walker DO Work Phone: [facility] Comment on above: Thyroid nodule (CMS/ HCC) (Primary Dx) Start: 06-05-2024 End: 06-05-2024 Bamboo flowsheet Geoff Walker DO Work Phone: [facility] Start: 06-05-2024 End: 06-05-2024 Bamboo flowsheet Geoff Walker DO Work Phone: [facility] Start: 06-05-2024 End: 06-05-2024 ambulatory GEOFF WALKER Not Available Start: 05-13-2024 End: 05-13-2024 ambulatory Cornelius Garrison MD Facility:[facility] Start: 05-10-2024 ambulatory Cornelius Garrison MD Work Phone: [facility] Work Phone: Start: 05-10-2024 Non-patient / Non-visit Cornelius Garrison MD Work Phone: [facility] Work Phone: Start: 04-29-2024 End: 04-29-2024 ambulatory Cornelius Garrison MD Facility:[facility] Start: 04-22-2024 End: 04-22-2024 ambulatory Cornelius Garrison MD Work Phone: [facility] Work Phone: Start: 04-22-2024 End: 04-22-2024 Departed Referred Cornelius Garrison MD Work Phone: [facility] [place] [facility] Start: 04-22-2024 End: 04-22-2024 ambulatory Duong Oreilly MD Facility:[facility] Start: 04-15-2024 End: 04-15-2024 ambulatory Cornelius Garrison MD Work Phone: [facility] Work Phone: Start: 04-15-2024 End: 04-15-2024 Patient encounter procedure Cornelius Garrison MD Work Phone: [facility] Work Phone: Start: 04-01-2024 End: 04-01-2024 [...] encounter procedure Cornelius Garrison MD Work Phone: [facility] Work Phone: Start: 03-25-2024 End: 03-25-2024 ambulatory [facility] Facility:[facility] Start: 03-21-2024 Non-patient / Non-visit Cornelius Garrison MD Work Phone: [facility] Work Phone: Start: 03-11-2024 End: 03-11-2024 Patient encounter procedure Cornelius Garrison MD Work Phone: [facility] Work Phone: Start: 03-04-2024 Non-patient / Non-visit Cornelius Garrison MD Work Phone: [facility] Work Phone: Start: 03-04-2024 End: 03-04-2024 Patient encounter procedure Cornelius Garrison MD Work Phone: [facility] Work Phone: Start: 03-04-2024 End: 03-04-2024 ambulatory Cornelius Garrison Facility:[facility] Start: 02-23-2024 End: 02-23-2024 ambulatory [facility] Facility:[facility] Start: 02-19-2024 End: 02-19-2024 ambulatory [facility] Facility:[facility] Start: 02-13-2024 End: 02-13-2024 ambulatory Ofelia Arceo PA-C Facility:[facility] Start: 02-08-2024 End: 02-08-2024 ambulatory MD Cornelius Garrison Work Phone: [facility] Work Phone: Start: 02-08-2024 End: 02-08-2024 Patient encounter procedure MD Cornelius Garrison Work Phone: [facility] Work Phone: Start: 02-07-2024 Non-patient / Non-visit MD Mala Garrison Work Phone: [facility] Work Phone: Start: 02-01-2024 Non-patient / Non-visit Cornelius Garrison MD Work Phone: [facility] Work Phone: Start: 01-24-2024 End: 01-24-2024 ambulatory MD Cornelius Garrison Work Phone: [facility] Work Phone: Start: 01-24-2024 End: 01-24-2024 Patient encounter procedure MD Cornelius Garrison Work Phone: [facility] Work Phone: Start: 01-24-2024 End: 01-24-2024 Patient encounter procedure MD Cornelius Garrison Work Phone: [facility] Start: 01-24-2024 End: 01-24-2024 ambulatory MD Cornelius Garrison Work Phone: [facility] Work Phone: Start: 01-19-2024 Non-patient / Non-visit MD Mala Garrison Work Phone: [facility] Work Phone: Start: 01-19-2024 Non-patient / Non-visit MD Mala Garrison Work Phone: [facility] Work Phone: Start: 01-09-2024 End: 01-09-[address] [facility] Work Phone: Start: 01-09-2024 End: 01-09-2024 Patient encounter procedure [facility] Work Phone: Start: 11-01-2023 End: 11-01-[address] [facility] Work Phone: Start: 11-01-2023 End: 11-01-2023 Patient encounter procedure [facility] Work Phone: Start: 10-13-2023 End: 10-13-[address] [facility] Work Phone: Start: 10-13-2023 End: 10-13-2023 Patient encounter procedure [facility] Work Phone: Start: 07-31-2023 End: 07-31-[address] [facility] Work Phone: Start: 07-31-2023 End: 07-31-2023 Patient encounter procedure [facility] Work Phone: Start: 05-26-2023 Non-patient / Non-visit [facility] Work Phone: Start: 02-01-2022 End: 02-02-2022 ambulatory Mihaela CASAS Facility:[facility] Start: 02-01-2022 End: 02-01-2022 Patient encounter procedure Mihaela CASAS General Surgery [facility] [place] Start: 01-13-2022 Encounter for preprocedural laboratory examination DR MIHAELA CASAS [facility] Start: 01-12-2022 End: 01-13-2022 ambulatory Mihaela CASAS Facility:[id number] Start: 01-10-2022 End: 01-11-[address] MIHAELA CASAS Facility:[facility] Start: 01-10-2022 End: 01-11-2022 Encounter for preprocedural laboratory examination DR MIHAELA CASAS Facility:[facility] Start: 12-22-2021 End: 12-23-2021 ambulatory Mihaela CASAS Facility: [place] Start: 12-22-2021 End: 12-22-2021 Patient encounter procedure Mihaela Michelle NILL General Surgery [facility] [place] Start: 12-17-2021 End: 12-18-2021 ambulatory CORNELIUS GARRISON PROVIDER Facility:[facility] Procedures Date Procedure Procedure Detail Performing Clinician Start: 04-01-2024 End: 04-01-2024 Needle emg ea extremty w/paraspinl area complete Kane Keith DO Work Phone: Start: 01-24-2024 X-ray of both knees, three views MD Anoop Garrison Work Phone: Start: 01-12-2022 Colonoscopy Geoff Walker DO Work Phone: Start: 01-12-2022 Colonoscopy Mihaela NILL Start: 01-12-2022 Esophagogastroduodenoscopy Mihaela NILL Bilateral oophorectomy Ebenezer el NILL Colonoscopy Mihaela NILL Decompression of thoracic spine Mihaela NILL Discectomy of spine Mihaela NILL Comment on above: T12-L1 T12-L1 Esophagogastroduodenoscopy M ichael NILL Excision of bunion Mihaela HALL Repair of vaginal tear Ebenezer chaney NILL Tonsillectomy Mihaela NILL Plan of Treatment Date Care Activity Detail Author Start: 01-13-2032 Screening for malign ant neoplasm of colon [facility] Start: 06-10-2025 End: 06-10-2025 Patient encounter procedure 06/10/2025 8:45 AM EST Office Visit [facility] [address] [place] [id number] Geoff Walker, DO [address] [place] [address] [facility] Start: 06-26-2024 Patient referral [facility] Work Phone: Start: 06-05-2024 End: 06-05-2024 Patient encounter procedure 06/05/2024 2:30 PM EST Office Visit RITAJonathan HARDINUSKY [address] [place] [phone] Geoff Walker, DO [address] [place] [address] Arrived [facility] Comment on above: Arrived Start: 05-10-2024 Patient referral [facility] Work Phone: Start: 04-05-2024 Patient referral [facility] Work Phone: Start: 04-01-2024 End: 04-01-2024 Patient encounter procedure 04/01/2024 3:00 PM EST Procedure Visit [facility] [address] [place] [address] Kane Perez, DO [address] [place], [place] [id number] Arrived [facility] Comment on above: Arrived Start: 01-24-2024 X-ray of both knees, three views XR knee BI 3V - NOT FOR ER USE [facility] Start: 01-24-2024 XR Knee - bilateral 3 Views [facility] Start: 01-22-2024 Pneumococcal Vaccine : 65+ Years (1 of 1 - PCV) Pneumococcal Vaccine: 65+ Years (1 of 1 - PCV) [facility] Start: 01-10-2024 Patient referral [facility] Work Phone: Start: 12-10-2023 Influenza vaccination Influenza Vacc ine (#1) [facility] Start: 1999 Screening for malign ant neoplasm of breast Mammogram [facility] Start: 1989 Screening for malign ant neoplasm of cervix [facility] Start: 01-22-1980 Screening for malign ant neoplasm of cervix Pap Smear [facility] Start: 1959 Screening for malign ant neoplasm of colon [facility] CT Unspecified body region [facility] CT Unspecified body region [facility] DXA Skeletal system.axial Views for bone density [facility] Patient Education Low back pain in adults [facility] Work Phone: Patient referral [facility] Work Phone: [place] Lower extremity v ein - right [facility] [place] Thyroid gland [facility] Immunizations Immunization Date Immunization Notes Care Provider Fa cility 03-11-2024 diphtheria, tetanus toxoids and acellular pertussis vaccine, unspecified formulation Cornelius Garrison MD Work Phone: [facility] 03-29-2021 COVID-19 mRNA, Comirnaty (Pfizer) [facility] 08-11-2020 COVID-19 mRNA, Comirnaty (Pfizer) [facility] 07-21-2020 COVID-19 mRNA, Comirnaty (Pfizer) [facility] 10-07-2018 diphtheria, tetanus toxoids and acellular pertussis vaccine, unspecified formulation [facility] 02-05-2014 tetanus and diphther ia toxoids, adsorbed, preservative free, for adult use (5 Lf of tetanus toxoid and 2 Lf of diphtheria toxoid) [facility] Payers Date Payer Category Payer Other GENERIC OTHER [id number] 2024 Unknown [id number] 2024 Medicare [id number] 2024 Medicare [id number] 2023 Unknown 2021 Unknown [id number] 1959 Self-pay [id number] 1959 Unknown [id number] 2.16.840.1.919420.3.579.2 .727 1959 Unknown [id number] 2.16840.1.230570.3.579.2 .727 1959 Unknown [id number] .840.1.879203.3.579.2 .727 1959 Unknown [id number] 2.16.840.1.667883.3.579.2 .727 1959 Unknown [id number] 2.16.840.1.407364.3.579.2 .593 1959 Unknown [id number] 2.16.840.1.821501.3.579.2 .593 1959 Unknown [id number] 2.16.840.1.510160.3.579.2 .1259 1959 Unknown [id number] 2.16.840.1.100119.3.579.2 .1259 1959 Unknown [id number] 2.16.840.1.658052.3.579.2 .196 1959 Unknown [id number] 2.16.840.1.618325.3.579.2 .196 1959 Unknown [id number] 2.16.840.1.949457.3.579.2 .196 1959 Unknown [id number] 2.16.840.1.397266.3.579.2 .196 1959 Unknown [id number] 2.16.840.1.363190.3.579.2 .196 1959 Unknown [id number] 2.16.840.1.353079.3.579.2 .196 1959 Unknown [id number] 2.16.840.1.788480.3.579.2 .196 1959 Unknown [id number] 2.16.840.1.683955.3.579.2 .196 1959 Unknown [id number] 2.16.840.1.688829.3.579.2 .196 Private Health Insurance [employer] [facility] G [id number] Unknown [id number] Unknown [id number] 2.16.840.1.896990.3.579.2 .593 Unknown MMO [employer] [id number] Social History Date Type Detail Facility Start: 12-22-2021 Heavy tobacco smoker (finding) [facility] Start: 06-05-2024 Female General Love [facility] Start: 07-31-2023 End: 04-15-2024 Tobacco smoking status INIS Smoker (finding) [facility] Start: 1960 Sex Assigned At Female F [facility] Start: 1960 Sex assigned at Not on file [facility] Start: 04-15-2024 End: 06-26-2024 Sex Female (finding) [facility] Start: 06-05-2024 Tobacco smoking stat [facility] Smokes tobacco daily [facility] History of tobacco use Cigarette Smoker [facility] Start: 06-05-2024 Tobacco use and exposure Smokeless tobacco non-user [facility] Start: 06-05-2024 Alcoholic beverage intake Ex-drinker (finding) [facility] Start: 06-05-2024 History of Social function [facility] Healthcare Functional Status Date Assessment Result Facility 12-22-2021 N/A [facility] Clinical Notes 12-22-2021 to 06-05-2024 Geoff Walker, DO - 06/05/2024 2:30 PM Nori Dougherty, ARRT - 04/01/2024 3:00 PM EST Note Date & Type Note Facility 06-05-2024 History of Present illness Narrative Subjective Patient ID: HPI 64-year-old female referred for a right thyroid mass. This was found during a workup for something else. Ultrasound was done showing a 2.8 cm inferior based right thyroid mass. 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 Work Phone: 04-01-2024 History of Present illness Narrative Images from the original note were not included. Reason for Appointment: EMG Patient: Cristine Manley : 1960 EMG Computer: [employer] Referring Physician: Ofelia Arceo PA-C EMG: BLE brick and blocker aid labor: Daniel Dougherty RT(R) Office Location: [place] Reason for EMG: c/o numbness/tingling in bilateral [...] of the test. 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 April 15, 2024 3:12pm Moderate persistent asthma, uncomplicated acute April 3:12pm Lumbar radiculopathy, chronic acute June 26, 2024 8:28am [facility] Work Phone: 1(275) 528-961112-02-2024 Evaluation note* Diagnosis Onset Date Resolution Status Admit Date Cigarette nicotine dependenc e with nicotine-induced disorder acute D ec2023 3:14pm Encounter for immunization acute March 11, 2024 3:14pm Encounter for screening for lung cancer acute March 11 3:14pm Moderate persistent asthma, uncomplicated acute March 11 3:14pm Lumbar radiculopathy, chronic acute March 29, 2024 8:45am Pain in posterior right lowe r extremity acute March 29 8:45am Right thyroid nodule acute 2023 8:45am Cigarette nicotine dependenc e with nicotine-induced disorder acute J an2024 3:12pm Encounter for screening for lung cancer acute April 15 3:12pm [facility] (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 of 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 acute April 15 3:12pm Moderate persistent asthma, uncomplicated acute April 15 3:12pm [facility] Work Phone: 1(187) 843-648411-15-2024 NotePatient Education Materials Name: Cristine Manley Current [...] for continued care. Thank you for choosing [facility] for your care.[facility]10-31-2024 Evaluation note* Diagnosis Onset Date Resolution Status [...] for lung cancer acute April 15 3:12pm [facility] (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 of 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 acute April 15 3:12pm Moderate persistent asthma, uncomplicated acute April 15 3:12pm [facility] Work Phone: 1(509) 651-975410-16-2024 Evaluation note* Diagnosis Onset Date Resolution Status [...] persistent asthma, uncomplicated acute April 15 3:12pm [facility] Work Phone: 1(703) 946-993210-05-2022 NoteOPERATIVE NOTE OPERATION DATE: 01/12/2022 PREOPERATIVE DIAGNOSIS: [...] of the polyp. CC: Cornelius Garrison M.D.[facility] [id number] NoteChief Complaint consultation for epigastric pain HPI [...] Chronic obstructive pulmonary dise (more content not included)...[facility] HospitalComment on above:Result Comment: Electronically Signed By: RAJINDER TAVERAS, Mihaela Trujillo\Date and Time Signed: 12/22/21 17:34 EDTEvaluation + Plan note No data available for this section [facility] [place] Evaluation note* Diagnosis Onset Date Resolution Status Lumbar radiculopathy, chronic acute [facility] Work Phone: Evaluation note* Diagnosis Onset Date Resolution Status Lumbar radiculopathy, chronic acute Headache acute Joint pain acute Tick bite acute [facility] Work Phone: Evaluation note* Diagnosis Onset Date Resolution Status Headache acute Joint pain acute Tick bite acute Chronic obstructive pulmonary disease, unspecified acute Lumbar radiculopathy, chronic acute [facility] Work Phone: Evaluation note* Diagnosis Onset Date Resolution Status Chronic obstructive pulmonary disease, unspecified acute Lumbar radiculopathy, chronic acute Bilateral knee pain acute COPD exacerbation acute Lumbar pain acute Lumbar radiculopathy, chronic acute Bilateral knee pain acute Primary osteoarthritis of both knees acute [facility] Work Phone: Evaluation note* Diagnosis Onset Date Resolution Status Bilateral knee pain acute COPD exacerbation acute Lumbar pain acute Lumbar radiculopathy, chronic acute Bilateral knee pain acute Primary osteoarthritis of both knees acute Menopause acute [facility] Work Phone: Evaluation note* Diagnosis Lumbosacral radiculopathy- Primary Thoracic or lumbosacral neuritis or radiculitis, unspecified Numbness and tingling Disturbance of skin sensation documented in this encounter [facility] HealthcareEvaluation note* Diagnosis Thyroid nodule (CMS/HCC)- Primary Nontoxic uninodular goiter documented in this encounter [facility] HealthcareHospital Discharge instructions No data available for this section [facility] [place] [facility] Discharge instructionsAmbulatory Orders* Referral to Orthopedics Time Frame: 06/26/24, Location: None Selected [facility] Work Phone: Progress note No data available for this section [facility] [place] Reason for visit Narrative* Other Medical (Routine) - Closed Specialty Diagnoses / Procedures Referred By Contac t Referred To Contact Neurology Diagnoses Neuralgia and neuritis, unspecified Procedures DE NEEDLE EMG EA EXTREMTY W/PARASPINL AREA COMPLETE DE NERVE CONDUCTION STUDIES 9-10 STUDIES Ofelia Arceo PA-C [address] [place] [address] Phone: tel: fax: Cecil Fields MD [address] [place] [address] Phone: tel: fax: Referral ID Status Reason Start Date Expiration Date V isits Requested Visits Authorized [id number] Closed Perform Procedure 03/27/2024 09/23/2024 1 1 [facility] Healthcare Summary Purpose Family History Relationship Condition [...] Advance Directives No March 11, 2024 4:03pm Advance Directive Response Recorded Date/ Time Advance Directives No March 11, 2024 5:03pm Chief Complaint and Reason for Visit Chief [...] Back & Knee Pain-HIGH RISK March 8:45am 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 April 15, 2 025 3:12pm Unknown April 22, 2024 1 2:14pm Referral Order May 10, 2024 2 :41pm Med f/u-HIGH RISK June 26, 2024 8:2 8am Reason for Visit Admit Date Lumbar radiculopathy, chronic March 112023 8:45am Pain in posterior right lower extremity March 29, 2024 8:45am Right thyroid nodule March 29, 2024 8:45am Cigarette nicotine dependenc e with nicotine-induced disorder April 15, 2024 3:12pm Encounter for screening for lung cancer Amarilis 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, 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 April 15, 2024 3:12pm Moderate persistent asthma, uncomplicate d April 15, 2024 3:12pm Lumbar radiculopathy, chronic June 8:28am Additional Source Comments Care Team (unrecognized sect [...] Inactive Member Role Status Dominick Garrison MD Attending Provider Active St art: April 22, 2024 End: April 22, 2024 Team Status: Active Member Role Status Dominick Garrison MD Attending Provider Active St art: May 10, 2024 Team Status: Inactive Member Role Status Dominick Garrison MD Primary Care Provide r, Attending Provider Active Start: June 26, 2024 End: June 26, 2024 Team Status: Active Member Role Status [...] End: March 11, 2024 Scott Dennis , Attending Provider Active St art: March 11, 2024 End: March 11, 2024 Team Status: Active Member Role Status Dates Cornelius Garrison MD Primary Care Provider Active Start: March 21, 2024 Soctt Dennis , Attending Provider Active St art: March 21, 2024 Team Status: Inactive Member Role Status Dates Cornelius Garrison MD Primary Care Provide r, Attending Provider Active Start: March 29, 2024 End: March 29, 2024 Team Status: Inactive Member Role Status Dates Cornelius Garrison MD Primary Care Provider Active Start: April 15, 2024 End: April 15, 2024 Scott Dennis , Attending Provider Active St art: April 15, 2024 End: April 15, 2024 Team Status: Inactive Member Role Status Dates Cornelius Garrison MD Primary Care Provide r, Attending Provider Active Start: July 31, 2023 End: July 31, 2023 Team Status: Inactive Member Role Status Dates Cornelius Garrison MD Primary Care Provider Active Start: October 13, 2023 End: October 13, 2023 Brittanie Siu APRN NP-Quoc Attending Provider Act onesimo Start: October 13, [...] Provider Active S tart: January 24, 2024 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 Relationship 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 Start Date End Date Cornelius Garrison MD [address] [place] [id number] PCP - General Family Medicine 03/27/24 Ofelia Arceo MD [address] [address] Referring Physician Internal Medicine 03/27/24 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 Relationship Specialty Start Date End Date Cornelius Garrison MD [address] [place] [id number] PCP - General Family Medicine 03/27/24 Ofelia Arceo MD [address] [address] Referring Physician Internal Medicine 03/27/24 Team Status: Inactive Member Role Status Dates Cornelius Garrison MD Attending Provider Active St art: April 22, 2024 End: April 22, 2024 Team Status: Active Member Role Status Dates Cornelius Garrison MD Attending Provider Active St art: May 10, 2024 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 Relationship Specialty Start Date End Date Cornelius Garrison MD [address] [place] [phone] PCP - General Family Medicine 03/27/24 Ofelia Arceo MD [address] [address] Referring Physician Internal Medicine 03/27/24 Geoff Walker, DO [address] [place] [address] Otolaryngology 06/05/24 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 Relationship Specialty Start Date End Date Cornelius Garrison MD [address] [place] [address] PCP - General Family Medicine 03/27/24 Ofelia Arceo MD [address] [place] [address] Referring Physician Internal Medicine 03/27/24 Geoff Walker DO [address] [place] [address] Otolaryngology 06/05/24 Team Status: Inactive Member Role Status Dates Cornelius Garrison MD Primary Care Provide r, Attending Provider Active Start: June 26, 2024 End: June 26, 2024 INFORMATION SOURCE (unrecogn ized section and content) DATE CREATED AUTHOR 02/21/2022 [facility] DATE CREATED AUTHOR AUTHOR'S ORGANIZ ATION 04/01/2022 [facility] DATE CREATED AUTHOR AUTHOR'S ORGANIZ ATION 05/12/2024 [facility] DATE CREATED AUTHOR AUTHOR'S ORGANIZ ATION 06/07/2024 [facility] EPIC DATE CREATED AUTHOR AUTHOR'S ORGANIZ ATION 06/26/2024 [facility] Goals (unrecognized section and content) Goals may [...] BE BASED ON THE PRIMARY CLINICAL RECORDS. [facility]. provides no warranty or guarantee of the accuracy or completeness of information in this document.
[2024-07-08 11:25] VITALS: BP 140/89; PULSE 81; TEMP 35.8; O2SAT 98
[2024-07-08 12:00] VITALS: BP 144/73; BP 147/76; PULSE 69; PULSE 72; O2SAT 96; O2SAT 97
[2024-07-08] MEDS: LIDOCAINE HCL 2% 400 MG/20 ML MDV INJ (12:03)
[2024-07-08] MEDS: BUPIVACAINE HCL 0.25% PF 25 MG/10 ML VIAL 8 ML INJ (12:03)
--- NOTE | 2024-07-08 12:06 | W.PM.PROCNOT ---
Date of procedure: 07/08/24 Pre-op diagnosis: Pain due to lumbar spondylosis without myelopathy Post-op diagnosis: same as pre-op Procedure: Procedure: Bilateral L4-5, L5-s1 medial branch block Medications: Bupivacaine 0.25% 6cc The patient was seen and examined in the preoperative holding area.? An informed consent was obtained and placed on the chart.? The patient was brought to the medical procedure unit and placed in the prone position.? A timeout was completed verifying correct patient, procedure site, positioning, plan, and special equipment.? Using aseptic technique, the needle was placed at left L4. Under direct fluoroscopic visualization a Quincke-tipped spinal needle was advanced to the junction of the superior articulating process with the transverse process at the designated medial branch segment.? Preceded by negative aspiration, the above-mentioned injectate was placed in 1 mL aliquots.? The procedure was repeated at left L5, S1.? The needle was removed and insertion site was covered. The same procedure, at the same levels, was completed on the right side. The patient was taken to the postprocedural recovery area and monitored for an appropriate length of time before found suitable for discharge in the company of a responsible adult. Anesthesia: Local Surgeon: Duong Oreilly Pathology: none sent Condition: stable Disposition: no change
== END 2024-07-08 12:07 | disposition home or self-care (01) ==
PROVIDERS: PCP Family Medicine; Visit Provider Anesthesiology
DX: M47.816 Spondylosis without myelopathy or radiculopathy, lumbar region (principal); M54.50 Low back pain, unspecified
CPT/HCPCS: 64493; 64494; J0665

== ENCOUNTER 2024-07-10 07:59 | Outpatient (OUT) | payer MEDICARE, OTHER, SELFPAY ==
--- OUTSIDE RECORDS SUMMARY | 2024-07-10 08:13 | XMS_ITS | CCD ---
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 Name Role Phone CORNELIUS GARRISON Primary Care [...] Care Provider Alexandro Galvez DO Attending Provider [phone] Cornelius Garrison MD Attending Provider Cornelius Garrison MD Primary Care Provider [phone] Cornelius Garrison Admitting Unavailable Cornelius Garrison Attending Unavailable Cornelius Garrison Admitting Unavailable Cornelius Garrison Attending Unavailable Cornelius Garrison Primary Care Unavailable Alexandro Galvez Attending Unavailable Alexandro Galvez Admitting Unavailable Cornelius Garrison Primary Care Unavailable Geoff Walker DO Unavailable [phone] GEOFF WALKER Attending CORNELIUS Nicole Referring Unavailable KANE PEREZ Attending Unavailable ADISOFELIA Referring Unavailable Adis PA-C, Ofelia Grace Attending Unavailab Tuan TAVERAS, Cornelius [facility] Unava ilable Adis PA-C, Ofelia rGace Attending Unavailab Tuan TAVERAS, [facility] Unava ilable Adis PA-C, Ofelia Grace Admitting Unavailab le Adis PA-C, Ofelia Grace Attending Unavailab Tuan TAVERAS, Cornelius [facility] Unava ilable Adis PA-C, Ofelia Grace Attending Unavailab Tuan TAVERAS, Cornelius [facility] Unava stephany Garrison MD, Cornelius [facility] Gelava ilable Denilson TAVERAS, Duong Wagoner Attending Unavailable Bladimir TAVERAS, Cornelius [facility] Unava ilable Denilson TAVERAS, Andrius Wagoner Attending Unavailable Denilson TAVERAS, Andrius Rizwana Attending Unavailable Bladimir TAVERAS, Cornelius [facility] Unava stephany Garrison MD, [facility] Unava ilable Denilson TAVERAS, Sonyarius Wagoner Attending Unavailable Adis PA-C, Ofelia Grace Attending Unavailab Tuan TAVERAS, Cornelius [facility] Gelava stephany Garrison MD, Cornelius Whyte Referring Cornelius Mcgowan MD Attending Provider [phone] Allergies Allergy Classification Reported Allergen(s) Allergy Type Date of Onset Reaction(s) Facility (3 sources) Acetaminophen / oxyCODONE; Translations: [acetaminophen-oxy codone] Drug Allergy Nausea (finding) [facility] (6 sources) Alendronate; Translations: [alendronate] Drug Allergy 03-29-20 Muscle pain (finding) [facility] (14 sources) Clarithromycin; Translations: [clarithromycin] Drug Allergy 07-31-19 Unknown (qualifier value) [facility] (15 sources) levoFLOXacin; Translations: [levofloxacin] Drug Allergy 07-31-19 Eruption of skin (disorder) [facility] (4 sources) Sulfonamides (Antibiotic); Translations: [sulfa drugs] Drug allergy Unknown (qualifier value) General [facility] (1 source) Acetaminophen / oxyCODONE Drug Allergy 03-25-20 16 [facility] Repository (1 source) Alendronate Drug Allergy 03-18-20 16 [facility] (1 source) Clarithromycin Drug Allergy 03-25-20 16 [facility] (1 source) levoFLOXacin Drug Allergy 03-25-20 16 [facility] (1 source) Quinolones (Antibiotic) Drug allergy (disorder) 03-25-20 16 [facility] (1 source) Sulfonamides (Antibiotic) Drug allergy (disorder) 05-01-19 14 [facility] (1 source) Acetaminophen Drug Allergy 07-31-19 24 [facility] (11 sources) Alendronate Drug Allergy 07-31-19 24 [facility] (11 sources) oxyCODONE Drug Allergy 07-31-19 24 [facility] (11 sources) Sulfonamides (Antibiotic) Allergy to substance 07-31-19 24 Comment:as a young child, pt. cannot recall reaction [facility] (11 sources) Biaxin XL *MACROLIDES* Allergy to substance 07-28-19 24 [facility] (3 sources) Acetaminophen / oxyCODONE Drug Allergy 06-05-19 25 Nausea Only [facility] (3 sources) Clarithromycin Allergy to substance 03-29-20 24 [facility] (3 sources) Lactobacillus acidophilus Drug Allergy 06-05-19 25 [facility] (3 sources) Quinolones (Antibiotic) Drug Intolerance 03-11-20 10 Rash [facility] (3 sources) Sulfonamides (Antibiotic) Drug Intolerance 03-11-20 10 [facility] (1 source) Ciprofloxacin; Translations: [Cipro] Drug Allergy [facility] Repository (1 source) symbalta; Translations: [symbalta] Propensity to adverse reactions to drug (disorder) [facility] Repository Medications Current Medications Medication Drug [...] 1 tablet by mouth at bedtime HYDROcodone-acetaminophen (Mobile) 5-325 MG tablet Take 1 tablet by [...] Rinse after use Start: 03-29-2024 End: 04-15-2024 Kbnkgpayudn-Fptaeyjui-Qpgubq er (Trelegy Ellipta) 200-62.5-25 mcg blister with device Discontinued 1 INH INHALATION Daily 60 March 29, 2024 10:38am April 15, 2024 4:41pm Rinse after use Start: 03-29-2024 End: 04-15-2024 Rkopfjsytwv-Jlyppyjgj-Otuurg er (Trelegy Ellipta) 200-62.5-25 mcg blister with device Discontinued 1 INH INHALATION Daily 60 March 29, 2024 9:38am April 15, 2024 3:41pm Rinse after use Start: 03-11-2024 End: 03-29-2024 Umlsndpkrwf-Uvvonjxgw-Wkljsd er (Trelegy Ellipta) 200-62.5-25 mcg blister with device Discontinued 1 INH INHALATION Daily 180 March 11, 2024 1:00am March 29, 2024 10:38am Rinse after use Start: 03-11-2024 End: 03-29-2024 Oykmbfyhalx-Ptpebikjc-Zijxos er (Trelegy Ellipta) 200-62.5-25 mcg blister with [...] March 29, 2024 9:04am 60 actuat tiotropium 0.65233 mg/actuat inhalation spray (12 sources) Anticholinergic Start: 02-08-2024 End: 03-11-2024 take 1 puff(s) by inhalation once daily in the morning Tiotropium Blanchard (Spiriva Respimat) 1.25 mcg/actuation mist Discontinued 2 [...] 01-24-2024 Chronic Other aftercare (1 source) Other longterm (current) drug therapy; Translations: [OTH FDC CURRENT DRUG THERAPY] Onset: 01-17-2022 Episodic Other aftercare (6 sources) Long-term current use of inhaled steroid; Translations: [snf (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 of 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] Onset: 06-05-2024 Resolved: 06-05-2024 04-15-2024 Episodic Other aftercare (3 sources) manager terminal (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 of 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; Translations: [Long-term [...] which she is planned to see a oracle business analyst in the near future. She also has [...] therapy without benefit. She is established with [facility] undergoing left L4-5 CARLOS and [...] though does not resolve. Oral narcotics including Mobile which makes pain tolerable though does not resolve. Topical agents including lidocaine patches and Bengay with limited benefit. Pain management injection modalities years ago with temporary benefit lasting only a few days. Physical therapy years ago without significant benefit. Chiropractic manipulation x 1 visit without benefit therefore patient never returned. Activity modification [1] Pain management injection modalities through [facility]. Initial injection targeted left L4-5 [...] No si (more content not included)... Normal [facility] Provider Letteron 06-06-2024 Provider Letter (Inserted Image. Gela ble to display) Cornelius Garrison MD [facility] [facility], [place] [address] Re: Cristine Manley Date of Visit: 06/06/2024 Dear Cornelius Garrison MD, This patient was recently seen in the neurosurgical office. Please see attached note for further details. Let me know if you have any questions or concerns. Sincerely, DEMARCUS Gan Providers: The following document(s) were included in the letter: June 06, 2024 09:36:40 EST - (06/06/2024) Neurosurgery Office Visit Note Normal [facility] Dominick 04-22-2024 L -------- -------- Specimen: [id number] Received: 04/24/24 Status: OMAR Hayes Num: [id number] Spec Type: Cytology Subm Dr: Cornelius Garrison MD Tissues: A FNA SLIDES NOPATH (INF RT THY) Procedures: Cyto Int and Re, PAPSTN/5 -------- Age/ Patient Sex Location Account Attending Physician -------- Manley,Cristine K 64/F [facility] [id number] Cornelius Garrison MD -------- SPEC NUM: [id number] RECD: 04/24/24 STATUS: OMAR REQ NUM: [id number] TORI: 04/22/24- DR: Cornelius Garrison MD ENTERED: 04/24/[address] [facility] [address]: Les Lee MD SPEC TYPE: Cytology DEPT: [facility] ENTERED BY: [id number] RECV BY: [id number] ORDERED: Cyto Int and Re, PAPSTN/5 ORDERED: Cyto Int and Re, PAPSTN/5 Supplemental Report Addendum 1 Entered: 05/10/24 Supplemental for findings of [facility] GENOMIC SEQUENCING LUGGAGE REPAIRER: -Ensemble Automatic Spinning Lathe Setter -Benign (risk of malignancy 4%) -Xpression [place] -N/A -Other Classifiers -BRAF p. V600E c. 1799T>A: Negative -RET/PTC1: Not detected -RET/PTC3: Not detected -MTC: Negative -Parathyroid: Negative TERT PROMOTER REGION: -Tests (2) not Performed (TNP) -------- Specimen: [id number] Received: 04/24/24 Status: OMAR Freddy Num: [id number] Spec Type: Cytology Subm Dr: Cornelius Garrison MD Tissues: A FNA SLIDES NOPATH (INF RT THY) Procedures: Cyto Int and Re, PAPSTN/5 -------- Patient: Cristine Manley [id number] (Continued) -------- Specimen: [id number] Received: 04/24/24 (Continued) Supplemental Report (Continued) Signed (signature on file) Gail Sheth MD 04/24/24 1439 -------- Specimen: [id number] Received: 04/24/24 Status: OMAR [facility] Num: [id number] Spec Type: Cytology Subm Dr: Cornelius Garrison MD Tissues: A FNA SLIDES NOPATH (INF RT THY) Procedures: Cyto Int and Re, PAPSTN/5 -------- Patient: Cristine Manley [id number] (Continued) -------- Specimen: [id number] Received: 04/24/24 (Continued) Supplemental Report (Continued) Addendum Signed (signature on file) Pedro-Diogenes Sheth MD 05/10/24 1132 -------- Pathological Diagnosis Right thyroid nodule, inferior, FNA cytology -Adequate follicular groups in the ThinPrep smear, appropriate for assessment, consisting of small to occasionally slightly larger and reactive follicular cells, suggesting dimorphic population and the category 3 [place] system, atypia of the undetermined significance, otherwise [...] vial stored at -20 for microscopic examination. (MI/nh) Microscopic Description Microscopic examinations are performed supporting the above interpretation CPT Codes 01822 -------- -------- Specimen: [id number] Received: 04/24/24 Status: OMAR [facility] Num: [id number] Spec Type: Cytology Subm Dr: Cornelius Garrison MD Tissues: A FNA SLIDES NOPATH (INF RT THY) Procedures: Cyto Int and Re, PAPSTN/5 -------- Patient: Cristine Manley [id number] (Continued) -------- Signed (signature on file) Gail Sheth MD 04/24/24 5242 Normal [facility] EMG 2 Extremitieson 04-01-20 EMG/NCS BLE Right L5/S1 radic [place] S1/2 radic [facility] [place] 9-10 Nerveson 04-01-2024 EMG/NCS BLE Right L5/S1 radic [place] S1/2 radic [facility] Provider Letteron 12-17-2024 Provider Letter (Inserted Image. Gela ble to display) Cornelius Garrison MD [address] [facility] [facility], [place] [address] Re: Cristine Manley Date of Visit: 03/25/2024 Dear Cornelius Garrison MD, This patient was recently seen in the neurosurgical office. Please see attached note for further details. Let me know if you have any questions or concerns. Sincerely, DEMARCUS Gan Providers: The following document(s) were included in the letter: March 25, 2024 17:40:13 EST - (03/25/2024) Neurosurgery Office Visit Note Normal [facility] Neurosurgery Office/Clinic N oteon 03-25-2024 Neurosurgery Office/Clinic Note Chief Complaint CT thoracic, lumbar, XR lumbar, hips and neck review History of Present Illness The patient is a pleasant 64-year-old right-handed female with history of chronic nicotine use, asthma and recently diagnosed COPD for which she is planned to see a oracle business analyst in the near future. She also has [...] though does not resolve. Oral narcotics including Mobile which makes pain tolerable though does not [...] increases slightl (more content not included)... Normal [facility] Basophils Auto (Bld) [#/Vol] on 03-21-2024 Basophils (Bld) [#/Vol] Automated basophil count 0.0-0.[address] [facility] Basophils/100 WBC Auto (Bld) on 03-21-2024 Basophils/100 WBC (Bld) Automated basophil % 0.2-2.0 [facility] Eosinophils/100 WBC Auto (Bl d)on 03-21-2024 Eosinophils/100 WBC (Bld) Automated eosinophil % 0.9-7.0 [facility] Erythrocyte distribution wid th Auto (RBC) [Ratio]on 03-21-2024 Erythrocyte distribution width (RBC) [Ratio] Erythrocyte distribution width [Ratio] by Automated count 11.0-15.0 [facility] Hematocrit Auto (Bld) [Volum e fraction]on 03-21-2024 Hematocrit (Bld) [Volume fraction] Hematocrit [Volume Fraction] of Blood by Automated count 36.0-48.0 [facility] Hemoglobin [Mass/volume] in Bloodon 03-21-2024 Hemoglobin (Bld) [Mass/Vol] Hemoglobin [Mass/volume] in Blood 12.0-16.0 [facility] IgE [Units/volume] in Serum or Plasmaon 03-21-2024 IgE Qn IgE [Units/volume] i n Serum or Plasma 6-495 [facility] Comment on above: Performed at: [address], [place], [place] [id number] Director: Levi Pedroza MD, Phone: [phone] Laboratory - Hematology and Cell countson 03-21-2024 Immature granulocytes/100 WBC (Bld) 0.1 % 0.0-0.5 [facility] Leukocytes [#/volume] correc shant for nucleated erythrocytes in Blood by Automated counon 03-21-2024 WBC corrected for nucl RBC Auto (Bld) [#/Vol] Leukocytes [#/volume] corrected for nucleated erythrocytes in Blood by Automated coun 4.0-11.0 [facility] Lymphocytes Auto (Bld) [#/Vo l]on 03-21-2024 Lymphocytes (Bld) [#/Vol] Lymphocytes [#/volume] in Blood by Automated count 1.2-3.8 [facility] Lymphocytes/100 WBC Auto (Bl d)on 03-21-2024 Lymphocytes/100 WBC (Bld) Lymphocytes/100 leukocytes in Blood by Automated count Low 20.5-60.0 [facility] MCH Auto (RBC) [Entitic mass ]on 03-21-2024 MCH (RBC) [Entitic mass] MCH [Entitic mass] by Automated count 26.7-34.0 [facility] MCHC Auto (RBC) [Mass/Vol]on 03-21-2024 MCHC (RBC) [Mass/Vol] MCHC [Mass/volume] by Automated count 29.9-35.2 [facility] MCV Auto (RBC) [Entitic vol] on 03-21-2024 MCV (RBC) [Entitic vol] MCV [Entitic volume] by Automated count 81.0-99.0 [facility] Monocytes Auto (Bld) [#/Vol] on 03-21-2024 Monocytes (Bld) [#/Vol] Automated blood monocyte count 0.3-0.8 [facility] Monocytes/100 WBC Auto (Bld) on 03-21-2024 Monocytes/100 WBC (Bld) Automated monocyte % 1.7-12.0 [facility] Neutrophils Auto (Bld) [#/Vo l]on 03-21-2024 Neutrophils (Bld) [#/Vol] Neutrophils [#/volume] in Blood by Automated count High 1.4-6.5 [facility] Neutrophils/100 WBC Auto (Bl d)on 03-21-2024 Neutrophils/100 WBC (Bld) Automated neutrophil % 43.0-75.0 [facility] No Panel Informationon 03-21 Eosinophils # (Auto) 0.1 10 3/uL 0.0-0.7 [facility] Immature Granulocyte # (Auto) 0.01 10 3/uL 0.00-0.03 [facility] Platelet mean volume Auto (B ld) [Entitic vol]on 03-21-2024 Platelet mean volume (Bld) [Entitic vol] Platelet mean volume [Entitic volume] in Blood by Automated count 9.5-13.5 [facility] Platelets Auto (Bld) [#/Vol] on 03-21-2024 Platelets (Bld) [#/Vol] Platelets [#/volume] in Blood by Automated count 150-450 [facility] RBC Auto (Bld) [#/Vol]on RBC (Bld) [#/Vol] Erythrocytes [#/volu me] in Blood by Automated count 4.20-5.40 [facility] Provider Letteron 02-29-2024 Provider Letter (Inserted Image. Gela ble to display) Cornelius Whittaker [facility] [facility], [facility] [place] [address] Re: Cristine Manley Date of Visit: 02/23/2024 Dear Cornelius Garrison MD, Please see attached results on this mutual patient you have with [facility] Result Name Current Result CT Spine Thoracic/Lumbar Myelogram w/Con 02/23/2024 Let me know if you have any questions or concerns. Sincerely, Jaclyn Bliss [facility] Final Finisher Forging Dies C C Providers: Normal [facility] CT Spine Thoracic/Lumbar Mye logram w/Conon [...] Electronically Signed in Other Vendor System) Normal [facility] PTon 02-23-2024 INR Coag (PPP) [Relative time] 1.0 {INR} Normal <=3.5 [facility] Comment on above: Result Comment: INR has no normal range. INR Therapeutic range is: 2.0-3.0 (AF, CVA, TIAs, DVT prophylaxis, acute DVT) 2.5-3.5 ([facility] heart valves, recurrent thrombosis/emboli) Performed By: #### P TINR #### [facility] [address] [place] [address] PT Coag (PPP) [Time] 10.3 s Normal 9.2-12.0 [facility] Comment on above: Performed By: #### P TINR #### [address] [address] PTTon 02-23-2024 aPTT Coag (Bld) [Time] 24.8 s Normal 19.5-28.2 [facility] Comment on above: Performed By: #### P TT #### [address] [address] Platelet Counton 02-23-2024 Platelet 300 x10*3/mcL Normal 150-450 [facility] Comment on above: Performed By: #### P LTS #### [facility] [address] [place] [address] XR Hip 2-3 Views Lefton 02-08 XR [...] Electronically Signed in Other Vendor System) Normal [facility] Myelography Spine 2 or [...] Electronically Signed in Other Vendor System) Normal [facility] XR Spine Cervical 4 or 5 Vie [...] Electronically Signed in Other Vendor System) Normal [facility] XR Spine Lumbosacral Bending 2-3 Viewson [...] Electronically Signed in Other Vendor System) Normal [facility] Neurosurgery Office/Clinic N oteon 02-13-2024 Neurosurgery Office/Clinic Note Chief Complaint Back lumbar pain radiculopathy consult History of Present Illness The patient is a pleasant 64-year-old right-handed female with history of chronic nicotine use, asthma and recently diagnosed COPD for which she is planned to see a oracle business analyst in the near future. She also has [...] though does not resolve. Oral narcotics including Mobile which makes pain tolerable though does not [...] Newly diagnosed COPD, scheduled to see a oracle business analyst in the near future Chronic nicotine use [...] marijuana use. 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 She denies any Worker's Comp. related claims regarding today's visit FAMILY HISTORY: Lung cancer: Father Diabetes mellitus: Mother Hypertension: Mother Review of Systems Constitutional: [No fevers, chills, sweats] Eye: [No recent visual problems] ENMT: [ (more content not included)... Normal [facility] Provider Letteron 02-13-2024 Provider Letter (Inserted Image. Gela ble to display) Cornelius Garrison MD [address] [place] [address] [place] [address] Re: Cristine Manley Date of Visit: 02/13/2024 Dear Cornelius Garrison MD, This patient was recently seen in the neurosurgical office. Please see attached note for further details. Let me know if you have any questions or concerns. Sincerely, DEMARCUS Gan Providers: The following document(s) were included in the letter: February 13, 2024 09:39:53 EST - (02/13/2024) Neurosurgery Office Visit Note Normal [facility] XR knee BI 3V - NOT FOR ER U Sanam 01-24-2024 XR knee BI 3V - NOT FOR ER USE [facility] [address] [place] [address] XRay Report Signed Patient: Cristine Manley MR#: [id number] 53 : 1960 Acct:[id number] Age/Sex: 64 / F ADM Date: 01/24/24 Loc: [facility] Room: Type: [facility] Attending Dr: Alexandro Galvez DO Copies to: [...] Sunday Graham M.D.01/24/2024 3:45 PM Dictation Location: [place] [address] Transcribed By: [facility] 01/24/241544 Dictated By: Sunday Graham II, MD 01/24/24 154 Signed By: 01/24/24 154 Normal [facility] Basophils Auto (Bld) [#/Vol] on 01-19-2024 Basophils (Bld) [#/Vol] 0.0 10 3/uL 0.0-0.1 [facility] Basophils (Bld) [#/Vol] Automated basophil count 0.0-0.[address] [facility] Basophils/100 WBC Auto (Bld) on 01-19-2024 Basophils/100 WBC (Bld) 0.2 % 0.2-2.0 [facility] Basophils/100 WBC (Bld) Automated basophil % 0.2-2.0 [facility] Eosinophils/100 WBC Auto (Bl d)on 01-19-2024 Eosinophils/100 WBC (Bld) 4.3 % 0.9-7.0 [facility] Eosinophils/100 WBC (Bld) Automated eosinophil % 0.9-7.0 [facility] Erythrocyte distribution wid th Auto (RBC) [Ratio]on 01-19-2024 Erythrocyte distribution width (RBC) [Ratio] 13.1 % 11.0-15.0 [facility] Erythrocyte distribution width (RBC) [Ratio] Erythrocyte distribution width [Ratio] by Automated count 11.0-15.0 [facility] Estimated glomerular filtrat ion rate (GFR) non- Americanon 01-19-2024 GFR/1.73 sq M.predicted among non-blacks MDRD (S/P/Bld) [Vol rate/Area] mL/min/{1.73_m2} >=60 mL/min/1.73 m 2 [facility] GFR/1.73 sq M.predicted among non-blacks MDRD (S/P/Bld) [Vol rate/Area] Estimated glomerular filtration rate (GFR) non- >=60 mL/min/1.73 m 2 [facility] Fibrin D-dimer [Presence] in Platelet poor plasma by Latex agglutinationon 01-19-2024 Fibrin D-dimer LA Ql (PPP) 0.43 mg/L FEU <=0.59 [facility] Comment on above: Increases in D-Dimer concentration [...] Platelet poor plasma by Latex agglutination <=0.59 [facility] Comment on above: Increases in D-Dimer concentration [...] Hematocrit (Bld) [Volume fraction] 39.5 % 36.0-48.0 [facility] Hematocrit (Bld) [Volume fraction] Hematocrit [Volume Fraction] of Blood by Automated count 36.0-48.0 [facility] Hemoglobin [Mass/volume] in Bloodon 01-19-2024 Hemoglobin (Bld) [Mass/Vol] 12.8 g/dL 12.0-16.0 [facility] Hemoglobin (Bld) [Mass/Vol] Hemoglobin [Mass/volume] in Blood 12.0-16.0 [facility] Laboratory - Chemistry and C hemistry - challengeon 01-19-2024 Calcium [Mass/Vol] 9.0 mg/dL 8.5-10.1 [facility] Chloride [Moles/Vol] 105 mmol/L 98-107 [facility] CO2 [Moles/Vol] 28.7 mmol/L 21.0-32.0 [facility] Creatinine [Mass/Vol] 0.92 mg/dL 0.55-1.02 [facility] GFR/1.73 sq M.predicted MDRD (S/P/Bld) [Vol rate/Area] mL/min/{1.73_m2} >=60 mL/min/1.73 m 2 [facility] Glucose [Mass/Vol] 78 mg/dL 74-106 [facility] Potassium [Moles/Vol] 4.0 mmol/L 3.5-5.1 [facility] Sodium [Moles/Vol] 138 mmol/L 136-145 [facility] Urea nitrogen [Mass/Vol] 27.0 mg/dL High 7.0-18.0 [facility] Urea nitrogen/Creatinin e [Mass ratio] 29.3 mg/mg [facility] Laboratory - Hematology and Cell countson 01-19-2024 Immature granulocytes/100 WBC (Bld) 0.3 % 0.0-0.5 [facility] Laboratory - Microbiology an d Antimicrobial susceptibilityon 01-19-2024 SARS-CoV-2 (COVID-19) RNA JOSELUIS+probe Ql (Unsp spec) Negative NEGATIVE [facility] Comment on above: This test has not [...] (Bld) [#/Vol] 12.6 10 3/uL High 4.0-11.0 [facility] WBC corrected for nucl RBC Auto (Bld) [#/Vol] Leukocytes [#/volume] corrected for nucleated erythrocytes in Blood by Automated coun High 4.0-11.0 [facility] Lymphocytes Auto (Bld) [#/Vo l]on 01-19-2024 Lymphocytes (Bld) [#/Vol] 4.4 10 3/uL High 1.2-3.8 [facility] Lymphocytes (Bld) [#/Vol] Lymphocytes [#/volume] in Blood by Automated count High 1.2-3.8 [facility] Lymphocytes/100 WBC Auto (Bl d)on 01-19-2024 Lymphocytes/100 WBC (Bld) 35.0 % 20.5-60.0 [facility] Lymphocytes/100 WBC (Bld) Lymphocytes/100 leukocytes in Blood by Automated count 20.5-60.0 [facility] MCH Auto (RBC) [Entitic mass ]on 01-19-2024 MCH (RBC) [Entitic mass] 29.4 pg 26.7-34.0 [facility] MCH (RBC) [Entitic mass] MCH [Entitic mass] by Automated count 26.7-34.0 [facility] MCHC Auto (RBC) [Mass/Vol]on 01-19-2024 MCHC (RBC) [Mass/Vol] 32.4 g/dL 29.9-35.2 [facility] MCHC (RBC) [Mass/Vol] MCHC [Mass/volume] by Automated count 29.9-35.2 [facility] MCV Auto (RBC) [Entitic vol] on 01-19-2024 MCV (RBC) [Entitic vol] 90.6 fL 81.0-99.0 [facility] MCV (RBC) [Entitic vol] MCV [Entitic volume] by Automated count 81.0-99.0 [facility] Monocytes Auto (Bld) [#/Vol] on 01-19-2024 Monocytes (Bld) [#/Vol] 1.2 10 3/uL High 0.3-0.8 [facility] Monocytes (Bld) [#/Vol] Automated blood monocyte count High 0.3-0.8 [facility] Monocytes/100 WBC Auto (Bld) on 01-19-2024 Monocytes/100 WBC (Bld) 9.5 % 1.7-12.0 [facility] Monocytes/100 WBC (Bld) Automated monocyte % 1.7-12.0 [facility] Neutrophils Auto (Bld) [#/Vo l]on 01-19-2024 Neutrophils (Bld) [#/Vol] 6.4 10 3/uL 1.4-6.5 [facility] Neutrophils (Bld) [#/Vol] Neutrophils [#/volume] in Blood by Automated count 1.4-6.5 [facility] Neutrophils/100 WBC Auto (Bl d)on 01-19-2024 Neutrophils/100 WBC (Bld) 50.7 % 43.0-75.0 [facility] Neutrophils/100 WBC (Bld) Automated neutrophil % 43.0-75.0 [facility] No Panel Informationon 01-18 Bedside Influenza Type A Antigen Negative [facility] Comment on above: Negative for Flu A p rotein antigen. Infection due to Flu Acannot be ruled out. Flu A antigen in the sample may bebelow the detection limit of the test. Bedside Influenza Type B Antigen Negative [facility] Comment on above: Negative for Flu B p rotein antigen. Infection due to Flu Bcannot be ruled out. Flu B antigen in the sample may bebelow the detection limit of the test. Eosinophils # (Auto) 0.5 10 3/uL 0.0-0.7 [facility] Immature Granulocyte # (Auto) 0.04 10 3/uL High 0.00-0.03 [facility] Troponin I High Sensitivity 5.8 pg/mL 4.0-51.3 [facility] Comment on above: CUT-OFF POINTS HAVE BEEN [...] (Bld) [Entitic vol] 9.3 fL Low 9.5-13.5 [facility] Platelet mean volume (Bld) [Entitic vol] Platelet mean volume [Entitic volume] in Blood by Automated count Low 9.5-13.5 [facility] Platelets Auto (Bld) [#/Vol] on 01-19-2024 Platelets (Bld) [#/Vol] 304 10 3/uL 150-450 [facility] Platelets (Bld) [#/Vol] Platelets [#/volume] in Blood by Automated count 150-450 [facility] RBC Auto (Bld) [#/Vol]on RBC (Bld) [#/Vol] 4.36 10 6/uL 4.20-5.40 [facility] RBC (Bld) [#/Vol] Erythrocytes [#/volu me] in Blood by Automated count 4.20-5.40 [facility] Serum or plasma anion gap de terminationon 01-19-2024 Anion gap [Moles/Vol] 8.3 mmol/L [facility] Anion gap [Moles/Vol] Serum or plasma anion gap determination [facility] Borrelia burgdorferi IgG+IgM Ab [Presence] in Serum by Immunoassayon 10-13-2023 B. burgdorferi IgG+IgM IA Ql (S) Negative Negative [facility] Comment on above: Lyme antibodies not detected. Reflex testing is notindicated.No laboratory evidence of infection with B. burgdorferi(Lyme disease). Negative results may occur in patientsrecently infected (less than or equal to 14 days) with B.burgdorferi. If recent infection is suspected, repeattesting on a new sample collected in 7 to 14 days isrecommended.Performed at: - [facility] [id number] Director: Jeovany Bazan PhD, Phone: [phone] General Surgery Office/Clini c Noteon 02-21-2022 General [...] Primary malignant neoplasm of lung: Father. Normal [facility] Comment on above: Result Comment: Elec [...] Tobacco user Very low density lipoprotinemia Normal [facility] Reminderson 02-01-2022 Reminders - From: Sushma Shell LPN To: GSN - Clinical; Sent: 02/01/2022 16:18:52 EDT Show up: 04/12/2022 07:00:00 EST Subject: EGD recall Due Date/Time: 05/04/2022 07:00:00 EST Reminder/Recall Patient is due to repeat EGD 05/04/2022 due to gastric ulcer. Normal [facility] Outside Colonoscopyon 2021 Outside Colonoscopy [id number]#[id number]:127 Normal [facility] Pathology Noteon 01-14-2022 Pathology Note [id number]#[id number]:127 Normal [facility] Reminderson 01-14-2022 Reminders - From: Sushma Shell LPN To: GSN - Clinical; Sent: 01/14/2022 08:07:35 EDT Show up: 12/14/2031 07:00:00 EDT Subject: colonoscopy recall Due Date/Time: 01/13/2032 07:00:00 EDT Reminder/Recall Patient is due for screening colonoscopy 01/13/2032. Normal [facility] Pre-Certification Formon Pre-Certification Form [id number]#[id number]:127 Normal [facility] Lab Reportson 01-11-2022 Lab Reports [id number]#1.00CD:127 Normal [facility] Covid-19 PCR ([facility])on SARS-CoV-2 (COVID-19) RNA JOSELUIS+probe Ql (Unsp spec) Not detected Normal NOT DETECTED [facility] Comment on above: Result Comment: This test is not yet approved or cleared by the [place] FDA. When there are no FDA-approved or cleared tests available, and other criteria are met, FDA can make tests available under an emergency access mechanism called an Emergency Use Authorization (EUA). The EUA for this test is supported by the [employer] of Health and Human Service's (HHS's) declaration [...] SARS-CoV-2. Performed By: #### C VDTB #### [facility] [address] [place] [address] Dr. Pablo Sheth Physician Orderon 12-23-2021 Physician Order [id number]:127 Normal [facility] Ambulatory Visit Summaryon 0 12-22-2021 Ambulatory [...] Tobacco user Very low density lipoprotinemia Normal [facility] CBC AUTO DIFFon 12-17-2021 BASO # 0.1 103/ul Normal 0.0-0.1 [facility] Comment on above: Performed By: #### D ATCBC #### [facility] [address] [address] [address] Pablo Sheth Basophils/100 WBC (Bld) 0.4 % Normal 0.2-2.0 [facility] Comment on above: Performed By: #### D ATCBC #### [facility] [address] [address] [address] Pablo Sheth EO # 0.3 103/ul Normal 0.0-0.7 [facility] Comment on above: Performed By: #### D ATCBC #### [facility] [address] [address] [address] Pablo Sheth Eosinophils/100 WBC (Bld) 2.4 % Normal 0.9-7.0 [facility] Comment on above: Performed By: #### D ATCBC #### [facility] [address] [address] [address] Pablo Sheth Erythrocyte distribution width (RBC) [Ratio] 13.2 % Normal 11.0-15.0 [facility] Comment on above: Performed By: #### D ATCBC #### [facility] [address] [address] [address] Pablo Sheth Hematocrit (Bld) [Volume fraction] 42.6 % Normal 36.0-48.0 [facility] Comment on above: Performed By: #### D ATCBC #### [facility] [address] [place] [address] Dr. Pablo Sheth Hemoglobin (Bld) [Mass/Vol] 13.7 g/dL Normal 12.0-16.0 [facility] Comment on above: Performed By: #### D ATCBC #### [facility] [address] [address] [address] Pablo Sheth IG # 0.05 10e3/ul Critically high 0.00-0.03 [facility] Comment on above: Performed By: #### D ATCBC #### [facility] [address] [address] [address] Pablo Sheth IG % 0.4 % Normal 0.0-0.5 [facility] Comment on above: Performed By: #### D ATCBC #### [facility] [address] [address] [address] Pablo Sheth LYMPH # 2.8 103/ul Normal 1.2-3.8 [facility] Comment on above: Performed By: #### D ATCBC #### [facility] [address] [address] [address] Pablo Sheth Lymphocytes/100 WBC (Bld) 20.9 % Normal 20.5-60.0 [facility] Comment on above: Performed By: #### D ATCBC #### [facility] [address] [address] [address] Pablo Sheth MCH (RBC) [Entitic mass] 29.2 pg Normal 26.7-34.0 [facility] Comment on above: Performed By: #### D ATCBC #### [facility] [address] [address] [address] Pablo Sheth MCHC (RBC) [Mass/Vol] 32.2 g/dL Normal 29.9-35.2 [facility] Comment on above: Performed By: #### D ATCBC #### [facility] [address] [address] [address] Pablo Sheth MCV (RBC) [Entitic vol] 90.8 fL Normal 81.0-99.0 [facility] Comment on above: Performed By: #### D ATCBC #### [facility] [address] [address] [address] Pablo Sheth MONO # 1.0 103/ul Critically high 0.3-0.8 [facility] Comment on above: Performed By: #### D ATCBC #### [facility] [address] [place] [address] Dr. Pablo Sheth Monocytes/100 WBC (Bld) 7.5 % Normal 1.7-12.0 [facility] Comment on above: Performed By: #### D ATCBC #### [facility] [address] [address] [address] Pablo Sheth NEUT # 9.2 103/ul Critically high 1.4-6.5 [facility] Comment on above: Performed By: #### D ATCBC #### [facility] [address] [place] [address] Dr. aPblo Sheth Neutrophils/100 WBC (Bld) 68.4 % Normal 43.0-75.0 [facility] Comment on above: Performed By: #### D ATCBC #### [facility] [address] [place] [address] Dr. Pablo Sheth Platelet mean volume (Bld) [Entitic vol] 9.3 fL Critically low 9.5-13.5 [facility] Comment on above: Performed By: #### D ATCBC #### [facility] [address] [place] [address] Dr. Pablo Sheth PLT 313 103/ul Normal 150-450 [facility] Comment on above: Performed By: #### D ATCBC #### [facility] [address] [place] [address] Dr. Pablo Sheth RBC 4.69 106/ul Normal 4.20-5.40 [facility] Comment on above: Performed By: #### D ATCBC #### [facility] [address] [place] [address] Dr. Pablo Sheth WBC 13.4 103/ul Critically high 4.0-11.0 [facility] Comment on above: Performed By: #### D ATCBC #### [facility] [address] [place] [address] Dr. Pablo Sheth BERKLEY - TSHon 12-17-2021 TSH 1.241 uIU/mL Normal 0.358-3.740 [facility] Comment on above: Performed By: #### D ATTSH, DATBMP #### [facility] [address] [place] [address] Dr. Pablo Sheth TSH RANGE SEE BELOW Normal [facility] Comment on above: Result Comment: <0.3 4 UIU/ml HYPERTHYROID 0.34-5.60 UIU/ml EUTHYROID >5.60 UIU/ml HYPOTHYROID Performed By: #### D ATTSH, DATBMP #### [facility] [address] [place] [address] Dr. Pablo Sheth BERKLEY- BMP WITH LIPIDon 2021 Anion gap [Moles/Vol] 11.9 mmol/L Normal [facility] Comment on above: Performed By: #### D ATTSH, DATBMP #### [facility] [address] [place] [address] Dr. Pablo Sheth Calcium [Mass/Vol] 9.1 mg/dL Normal 8.5-10.1 [facility] Comment on above: Performed By: #### D ATTSH, DATBMP #### [facility] [address] [place] [address] Dr. Pablo Sheth Chloride [Moles/Vol] 104 mmol/L Normal 98-107 [facility] Comment on above: Performed By: #### D ATTSH, DATBMP #### [facility] [address] [place] [address] Dr. Pablo Sheth Cholesterol [Mass/Vol] 207 mg/dL Critically high <=200 [facility] Comment on above: Performed By: #### D ATTSH, DATBMP #### [facility] [address] [place] [address] Dr. Pablo hSeth Cholesterol in HDL [Mass/Vol] 52 mg/dL Normal 40-60 [facility] Comment on above: Performed By: #### D ATTSH, DATBMP #### [facility] [address] [place] [address] Dr. Pablo Sheth Cholesterol in LDL [Mass/Vol] 141.4 mg/dL Normal [facility] Comment on above: Performed By: #### D ATTSH, DATBMP #### [facility] [address] [address] [address] Pablo Sheth CO2 [Moles/Vol] 29.3 mmol/L Normal 21.0-32.0 [facility] Comment on above: Performed By: #### D ATTSH, DATBMP #### [facility] [address] [address] [address] Pablo Sheth Creatinine [Mass/Vol] 0.77 mg/dL Normal 0.55-1.02 [facility] Comment on above: Performed By: #### D ATTSH, DATBMP #### [facility] [address] [place] [address] Dr. Pablo Sheth EGFR-AF SAMOAN >60 Normal >=60 [facility] Comment on above: Performed By: #### D ATTSH, DATBMP #### [facility] [address] [address] [address] Pablo Sheth EGFR-NON AF SAMOAN >60 Normal >=60 [facility] Comment on above: Performed By: #### D ATTSH, DATBMP #### [facility] [address] [address] [address] Pablo Sheth Glucose [Mass/Vol] 109 mg/dL Critically high 74-106 [facility] Comment on above: Performed By: #### D ATTSH, DATBMP #### [facility] [address] [address] [address] Pablo Sheth HDL NORMAL > or = 60 mg/dl - LO W CARDIOVASCULAR RISK <40 mg/dl - HIGH CARDIOVASCULAR RISK Normal [facility] Comment on above: Performed By: #### D ATTSH, DATBMP #### [facility] [address] [place] [address] Dr. Pablo Sheth LDL CALC NORMAL SEE BELOW Normal [facility] Comment on above: Result Comment: <100 mg/dl OPTIMAL 100 - 129 mg/dl NEAR OR ABOVE OPTIMAL 130 - 159 mg/dl BORDERLINE HIGH 160 - 189 mg/dl HIGH >190 mg/dl VERY HIGH Performed By: #### D ATTSH, DATBMP #### [facility] [address] [address] [address] Pablo Sheth Potassium [Moles/Vol] 4.2 mmol/L Normal 3.5-5.1 [facility] Comment on above: Performed By: #### D ATTSH, DATBMP #### [facility] [address] [address] [address] Pablo Sheth Sodium [Moles/Vol] 141 mmol/L Normal 136-145 [facility] Comment on above: Performed By: #### D ATTSH, DATBMP #### [facility] [address] [address] [address] Pablo Sheth Triglyceride [Mass/Vol] 68 mg/dL Normal <=150 [facility] Comment on above: Performed By: #### D ATTSH, DATBMP #### [facility] [address] [place] [address] Dr. Pablo Sheth Urea nitrogen [Mass/Vol] 26.0 mg/dL Critically high 7.0-18.0 [facility] Comment on above: Performed By: #### D ATTSH, DATBMP #### [facility] [address] [place] [address] Dr. Pablo Sheth Urea nitrogen/Creatinin e [Mass ratio] 33.8 mg/mg Normal [facility] Comment on above: Performed By: #### D ATTSH, DATBMP #### [facility] [address] [place] [address] Dr. Pablo Sheth VLDL CALC 13.6 mg/dL Normal [facility] Comment on above: Performed By: #### D ATTSH, DATBMP #### [facility] [address] [address] [address] Pablo Sheth Physician Referralon 022 Physician Referral [id number]:127 Normal [facility] Vital Signs Date Time Vital Sign Value Performing Clinician Facility 06-26-2024 08:30-0400 Body height 170.18 cm Cornelius Garrison MD Work Phone: [facility] 06-26-2024 08:30-0400 Body mass index (BMI) [Ratio] 27.6 kg/m2 Cornelius Garrison MD Work Phone: [facility] 06-26-2024 08:30-0400 Body weight 79.94 kg Cornelius Garrison MD Work Phone: [facility] 06-26-2024 08:30-0400 Diastolic blood pressure 107 mm[Hg] Cornelius Garrison MD Work Phone: [facility] 06-26-2024 08:30-0400 Heart rate 80 /min Cornelius Garirson MD Work Phone: [facility] 06-26-2024 08:30-0400 Respiratory rate 12 /min Cornelius Garrison MD Work Phone: [facility] 06-26-2024 08:30-0400 SaO2% (BldA) [Mass fraction] 95 % Cornelius Garrison MD Work Phone: [facility] 06-26-2024 08:30-0400 Systolic blood pressure 168 mm[Hg] Cornelius Garrison MD Work Phone: [facility] 06-05-2024 14:11-0500 Body height 170.2 cm Geoff Walker DO Work Phone: [facility] 06-05-2024 14:11-0500 Body mass index (BMI) [Ratio] 27.72 kg/m2 Geoff Walker DO Work Phone: [facility] 06-05-2024 14:11-0500 Body weight 80.29 kg Geoff Walker DO Work Phone: [facility] 04-15-2024 15:14-0500 Body height 170.18 cm Cornelius Garrison MD Work Phone: [facility] 04-15-2024 15:14-0500 Body mass index (BMI) [Ratio] 27.7 kg/m2 Cornelius Garrison MD Work Phone: [facility] 04-15-2024 15:14-0500 Body temperature 98.4 [degF] Cornelius Garrison MD Work Phone: [facility] 04-15-2024 15:14-0500 Body weight 80.28 kg Cornelius Garrison MD Work Phone: [facility] 04-15-2024 15:14-0500 Diastolic blood pressure 82 mm[Hg] Cornelius Garrison MD Work Phone: [facility] 04-15-2024 15:14-0500 Heart rate 83 /min Cornelius Garrison MD Work Phone: [facility] 04-15-2024 15:14-0500 Respiratory rate 20 /min Cornelius Garrison MD Work Phone: [facility] 04-15-2024 15:14-0500 SaO2% (BldA) [Mass fraction] 96 % Cornelius Garrison MD Work Phone: [facility] 04-15-2024 15:14-0500 Systolic blood pressure 128 mm[Hg] Cornelius Garrison MD Work Phone: [facility] 03-29-2024 08:56-0500 Body height 170.18 cm Cornelius Garrison MD Work Phone: [facility] 03-29-2024 08:56-0500 Body mass index (BMI) [Ratio] 27.2 kg/m2 Cornelius Garrison MD Work Phone: [facility] 03-29-2024 08:56-0500 Body weight 78.92 kg Cornelius Garrison MD Work Phone: [facility] 03-29-2024 08:56-0500 Diastolic blood pressure 86 mm[Hg] Cornelius Garrison MD Work Phone: [facility] 03-29-2024 08:56-0500 Heart rate 91 /min Cornelius Garrison MD Work Phone: [facility] 03-29-2024 08:56-0500 SaO2% (BldA) [Mass fraction] 95 % Cornelius Garrison MD Work Phone: [facility] 03-29-2024 08:56-0500 Systolic blood pressure 124 mm[Hg] Cornelius Garrison MD Work Phone: [facility] 03-11-2024 15:29-0500 Body height 170.18 cm Cornelius Garrison MD Work Phone: [facility] 03-11-2024 15:29-0500 Body mass index (BMI) [Ratio] 27.8 kg/m2 Cornelius Garrison MD Work Phone: [facility] 03-11-2024 15:29-0500 Body temperature 97.6 [degF] Cornelius Garrison MD Work Phone: [facility] 03-11-2024 15:29-0500 Body weight 80.73 kg Cornelius Garrison MD Work Phone: [facility] 03-11-2024 15:29-0500 Diastolic blood pressure 80 mm[Hg] Cornelius Garrison MD Work Phone: [facility] 03-11-2024 15:29-0500 Heart rate 82 /min Cornelius Garrison MD Work Phone: [facility] 03-11-2024 15:29-0500 Respiratory rate 20 /min Cornelius Garrison MD Work Phone: [facility] 03-11-2024 15:29-0500 SaO2% (BldA) [Mass fraction] 98 % Cornelius Garrison MD Work Phone: [facility] 03-11-2024 15:29-0500 Systolic blood pressure 134 mm[Hg] Cornelius Garrison MD Work Phone: [facility] 02-08-2024 13:55-0400 Body height 170.18 cm MD Cornelius Garrison Work Phone: [facility] 02-08-2024 13:55-0400 Body mass index (BMI) [Ratio] 27.9 kg/m2 MD Cornelius Garrison Work Phone: [facility] 02-08-2024 13:55-0400 Body weight 80.9 kg MD Cornelius Garrison Work Phone: [facility] 02-08-2024 13:55-0400 Diastolic blood pressure 78 mm[Hg] MD Cornelius Garrison Work Phone: [facility] 02-08-2024 13:55-0400 Heart rate 74 /min MD Cornelius Garrison Work Phone: [facility] 02-08-2024 13:55-0400 SaO2% (BldA) [Mass fraction] 96 % MD Cornelius Garrsion Work Phone: [facility] 02-08-2024 13:55-0400 Systolic blood pressure 110 mm[Hg] MD Cornelius Garrison Work Phone: [facility] 01-24-2024 14:35-0400 Body height 170.18 cm MD Cornelius Garrison Work Phone: [facility] 01-24-2024 14:35-0400 Body mass index (BMI) [Ratio] 28.3 kg/m2 MD Cornelius Garrison Work Phone: [facility] 01-24-2024 14:35-0400 Body weight 82.21 kg MD Cornelius Garrison Work Phone: [facility] 01-09-2024 15:17-0400 Body height 167.64 cm [facility] 01-09-2024 15:17-0400 Body mass index (BMI) [Ratio] 28.2 kg/m2 [facility] 01-09-2024 15:17-0400 Body weight 79.37 kg [facility] 01-09-2024 15:17-0400 Diastolic blood pressure 91 mm[Hg] [facility] 01-09-2024 15:17-0400 Heart rate 76 /min [facility] 01-09-2024 15:17-0400 SaO2% (BldA) [Mass fraction] 97 % [facility] 01-09-2024 15:17-0400 Systolic blood pressure 135 mm[Hg] [facility] 11-01-2023 08:57-0400 Body height 167.64 cm [facility] 11-01-2023 08:57-0400 Body mass index (BMI) [Ratio] 28.2 kg/m2 [facility] 11-01-2023 08:57-0400 Body weight 79.37 kg [facility] 11-01-2023 08:57-0400 Diastolic blood pressure 90 mm[Hg] [facility] 11-01-2023 08:57-0400 Heart rate 63 /min [facility] 11-01-2023 08:57-0400 Systolic blood pressure 136 mm[Hg] [facility] 10-13-2023 09:19-0400 Body height 167.64 cm [facility] 10-13-2023 09:19-0400 Body mass index (BMI) [Ratio] 28 kg/m2 [facility] 10-13-2023 09:19-0400 Body weight 78.92 kg [facility] 10-13-2023 09:19-0400 Diastolic blood pressure 76 mm[Hg] [facility] 10-13-2023 09:19-0400 Heart rate 78 /min [facility] 10-13-2023 09:19-0400 SaO2% (BldA) [Mass fraction] 98 % [facility] 10-13-2023 09:19-0400 Systolic blood pressure 118 mm[Hg] [facility] 07-31-2023 10:09-0400 Body height 167.64 cm [facility] 07-31-2023 10:09-0400 Body mass index (BMI) [Ratio] 28.8 kg/m2 [facility] 07-31-2023 10:09-0400 Body weight 80.9 kg [facility] 07-31-2023 10:09-0400 Diastolic blood pressure 89 mm[Hg] [facility] 07-31-2023 10:09-0400 Heart rate 74 /min [facility] 07-31-2023 10:09-0400 Systolic blood pressure 138 mm[Hg] [facility] 12-22-2021 14:20-0400 Blood Pressure Location Mihaela KERNL [facility] [place] 12-22-2021 14:20-0400 Diastolic blood pressure 80 mm[Hg] Mihaela NILL [facility] [place] 12-22-2021 14:20-0400 Heart rate 72 /min Mihaela NILL General Surgery [place] 12-22-2021 14:20-0400 Respiratory rate 16 /min Mihaela NILL [facility] [place] 12-22-2021 14:20-0400 Systolic blood pressure 116 mm[Hg] Mihaela NILL [facility] [place] Encounters Encounter Date Encounter Type Care Provider Facility Start: 06-26-2024 End: 06-26-2024 ambulatory Conrelius Garrison MD Work Phone: [facility] Work Phone: Start: 06-26-2024 End: 06-26-2024 Patient encounter procedure Cornelius Garrison MD Work Phone: [facility] Work Phone: Start: 06-17-2024 End: 06-17-2024 ambulatory Cornelius Garrison MD Facility:[facility] Start: 06-06-2024 End: 06-06-2024 ambulatory Ofelia Arceo PA-C Facility:Neurosurg [facility] Start: 06-05-2024 End: 06-05-2024 Office outpatient new 45 minutes Geoff Walker DO Work Phone: [facility] Comment on above: Thyroid nodule (CMS/ HCC) (Primary Dx) Start: 06-05-2024 End: 06-05-2024 Bamboo flowsheet Geoff Walker DO Work Phone: [facility] Start: 06-05-2024 End: 06-05-2024 Bamboo flowsheet Goeff Walker DO Work Phone: [facility] Start: 06-05-2024 End: 06-05-2024 ambulatory GEOFF WALKER Not Available Start: 05-13-2024 End: 05-13-2024 ambulatory Cornelius Garrison MD Facility:[facility] Start: 05-10-2024 ambulatory Cornelius Garrison MD Work Phone: [facility] Work Phone: Start: 05-10-2024 Non-patient / Non-visit Cornelius Garrison MD Work Phone: [facility] Phys[facility] [place] Work Phone: Start: 04-29-2024 End: 04-29-2024 ambulatory Cornelius Garrison MD Facility:[facility] Start: 04-22-2024 End: 04-22-2024 ambulatory Cornelius Garrison MD Work Phone: [facility] Work Phone: Start: 04-22-2024 End: 04-22-2024 Departed Referred Cornelius Garrison MD Work Phone: [facility] [place] [facility] Start: 04-22-2024 End: 04-22-2024 ambulatory Duong Oreilly MD Facility:[facility] Start: 04-15-2024 End: 04-15-2024 ambulatory Cornelius Garrison MD Work Phone: [facility] Work Phone: Start: 04-15-2024 End: 04-15-2024 Patient encounter procedure Cornelius Garrison MD Work Phone: [facility] Work Phone: Start: 04-01-2024 End: 04-01-2024 [...] encounter procedure Cornelius Garrison MD Work Phone: [facility] Work Phone: Start: 03-25-2024 End: 03-25-2024 ambulatory [facility] Facility:Neurosurg [facility] Start: 03-21-2024 Non-patient / Non-visit Cornelius Garrison MD Work Phone: [facility] Work Phone: Start: 03-11-2024 End: 03-11-2024 Patient encounter procedure Cornelius Garrison MD Work Phone: [facility] Work Phone: Start: 03-04-2024 Non-patient / Non-visit Cornelius Garrison MD Work Phone: [facility] Work Phone: Start: 03-04-2024 End: 03-04-2024 Patient encounter procedure Cornelius Garrison MD Work Phone: [facility] Work Phone: Start: 03-04-2024 End: 03-04-2024 ambulatory Cornelius Garrison Facility:[facility] Start: 02-23-2024 End: 02-23-2024 ambulatory [facility] Facility:[facility] Start: 02-19-2024 End: 02-19-2024 ambulatory [facility] Facility:[facility] Start: 02-13-2024 End: 02-13-2024 ambulatory Ofelia Arceo PA-C Facility:Neurosurg [facility] Start: 02-08-2024 End: 02-08-2024 ambulatory MD Cornelius Garrison Work Phone: [facility] Work Phone: Start: 02-08-2024 End: 02-08-2024 Patient encounter procedure MD Cornelius Garrison Work Phone: [facility] Work Phone: Start: 02-07-2024 Non-patient / Non-visit MD Mala Garrison Work Phone: [facility] Work Phone: Start: 02-01-2024 Non-patient / Non-visit Cornelius Garrison MD Work Phone: [facility] Work Phone: Start: 01-24-2024 End: 01-24-2024 ambulatory MD Cornelius Garrison Work Phone: [facility] Work Phone: Start: 01-24-2024 End: 01-24-2024 Patient encounter procedure MD Cornelius Garrison Work Phone: [facility] Work Phone: Start: 01-24-2024 End: 01-24-2024 Patient encounter procedure MD Cornelius Garrison Work Phone: [facility] Start: 01-24-2024 End: 01-24-2024 ambulatory MD Cornelius Garrison Work Phone: [facility] Work Phone: Start: 01-19-2024 Non-patient / Non-visit MD Mala Garrison Work Phone: [facility] Work Phone: Start: 01-19-2024 Non-patient / Non-visit MD Mala Garrison Work Phone: [facility] Work Phone: Start: 01-09-2024 End: 01-09-2024 ambulatory [facility] Work Phone: Start: 01-09-2024 End: 01-09-2024 Patient encounter procedure [facility] Work Phone: Start: 11-01-2023 End: 11-01-2023 ambulatory [facility] Work Phone: Start: 11-01-2023 End: 11-01-2023 Patient encounter procedure [facility] Work Phone: Start: 10-13-2023 End: 10-13-2023 ambulatory [facility] Work Phone: Start: 10-13-2023 End: 10-13-2023 Patient encounter procedure [facility] Work Phone: Start: 07-31-2023 End: 07-31-2023 ambulatory [facility] Work Phone: Start: 07-31-2023 End: 07-31-2023 Patient encounter procedure [facility] Work Phone: Start: 05-26-2023 Non-patient / Non-visit [facility] Work Phone: Start: 02-01-2022 End: 02-02-2022 ambulatory Mihaela CASAS Facility:[facility] Start: 02-01-2022 End: 02-01-2022 Patient encounter procedure Mihaela CASAS General Surgery Nill/Said [place] Start: 01-13-2022 Encounter for preprocedural laboratory examination DR MIHAELA CASAS [facility] Start: 01-12-2022 End: 01-13-2022 ambulatory Mihaela CASAS Facility:[id number] Start: 01-10-2022 End: 01-11-[address] MIHAELA CASAS Facility:[facility] Start: 01-10-2022 End: 01-11-2022 Encounter for preprocedural laboratory examination DR MIHAELA CASAS Facility:[facility] Start: 12-22-2021 End: 12-23-2021 ambulatory Mihaela CASAS Facility: [place] Start: 12-22-2021 End: 12-22-2021 Patient encounter procedure Mihaela Michelle NILL General Surgery Nill/Said [place] Start: 12-17-2021 End: 12-18-2021 ambulatory CORNELIUS GARRISON PROVIDER Facility:[facility] Procedures Date Procedure Procedure Detail Performing [...] Screening for malign ant neoplasm of colon [facility] Start: 06-10-2025 End: 06-10-2025 Patient encounter procedure 06/10/2025 8:45 AM EST Office Visit [facility] [place] [address] [place] [phone] Geoff Walker, DO [address] [place] [address] [facility] Start: 06-26-2024 Patient referral [facility] Work Phone: Start: 06-05-2024 End: 06-05-2024 Patient encounter procedure 06/05/2024 2:30 PM EST Office Visit RITAJonathan HARDINUSKY [address] [place] [phone] Geoff Walker, DO [address] [place] [address] Arrived [facility] BAG[facility] Comment on above: Arrived Start: 05-10-2024 Patient referral [facility] Work Phone: Start: 04-05-2024 Patient referral [facility] Work Phone: Start: 04-01-2024 End: 04-01-2024 Patient encounter procedure 04/01/2024 3:00 PM EST Procedure Visit [facility] [address] [place] [address] Kane Perez, DO [address] [place], [place] [id number] Arrived [facility] REDDY NEURO Comment on above: Arrived Start: 01-24-2024 X-ray of both knees, three views XR knee BI 3V - NOT FOR ER USE [facility] Start: 01-24-2024 XR Knee - bilateral 3 Views [facility] Start: 01-22-2024 Pneumococcal Vaccine : 65+ Years (1 of 1 - PCV) Pneumococcal Vaccine: 65+ Years (1 of 1 - PCV) [facility] Start: 01-10-2024 Patient referral [facility] Work Phone: Start: 12-10-2023 Influenza vaccination Influenza Vacc ine (#1) [facility] Start: 1999 Screening for malign ant neoplasm of breast Mammogram [facility] Start: 1989 Screening for malign ant neoplasm of cervix [facility] Start: 01-22-1980 Screening for malign ant neoplasm of cervix Pap Smear [facility] Start: 1959 Screening for malign ant neoplasm of colon [facility] CT Unspecified body region [facility] CT Unspecified body region [facility] DXA Skeletal system.axial Views for bone density [facility] Patient Education Low back pain in adults [facility] Work Phone: Patient referral [facility] Work Phone: US Lower extremity v ein - right [facility] US Thyroid gland [facility] Immunizations Immunization Date Immunization Notes Care Provider Fa cility 03-11-2024 diphtheria, tetanus toxoids and acellular pertussis vaccine, unspecified formulation Cornelius Garrison MD Work Phone: [facility] 03-29-2021 COVID-19 mRNA, Comirnaty (Pfizer) [facility] 08-11-2020 COVID-19 mRNA, Comirnaty (Pfizer) [facility] 07-21-2020 COVID-19 mRNA, Comirnaty (Pfizer) [facility] 10-07-2018 diphtheria, tetanus toxoids and acellular pertussis vaccine, unspecified formulation [facility] 02-05-2014 tetanus and diphther ia toxoids, adsorbed, preservative free, for adult use (5 Lf of tetanus toxoid and 2 Lf of diphtheria toxoid) [facility] Payers Date Payer Category Payer Other GENERIC OTHER [id number] 2024 Unknown [id number] 2024 Medicare [id number] 2024 Medicare [id number] 2023 Unknown 2021 Unknown [id number] 1960 Self-pay [id number] 1959 Unknown [id number] 2.16.840.1.806437.3.579.2 .727 1959 Unknown [id number] 2.16840.1.119392.3.579.2 .727 1959 Unknown [id number] .840.1.708515.3.579.2 .727 1959 Unknown [id number] 2.16.840.1.748724.3.579.2 .727 1959 Unknown [id number] 2.16.840.1.577927.3.579.2 .593 1959 Unknown [id number] 2.16.840.1.954290.3.579.2 .593 1959 Unknown [id number] 2.16.840.1.906406.3.579.2 .1259 1959 Unknown [id number] 2.16.840.1.163109.3.579.2 .1259 1959 Unknown [id number] 2.16.840.1.793360.3.579.2 .196 1959 Unknown [id number] 2.16.840.1.310905.3.579.2 .196 1959 Unknown [id number] 2.16.840.1.751452.3.579.2 .196 1959 Unknown [id number] 2.16.840.1.628697.3.579.2 .196 1959 Unknown [id number] 2.16.840.1.931770.3.579.2 .196 1959 Unknown [id number] 2.16.840.1.918718.3.579.2 .196 1959 Unknown [id number] 2.16.840.1.160759.3.579.2 .196 1959 Unknown [id number] 2.16.840.1.850063.3.579.2 .196 1959 Unknown [id number] 2.16.840.1.499103.3.579.2 .196 Private Health Insurance [employer] [facility] G [id number] Unknown [id number] Unknown [id number] 2.16.840.1.623562.3.579.2 .593 Unknown MMO [employer] [id number] Social History Date Type Detail Facility Start: 12-22-2021 Heavy tobacco smoker (finding) [facility] [place] Never [facility] [place] Start: 06-05-2024 Female General Love [facility] Start: 07-31-2023 End: 04-15-2024 Tobacco smoking status VTIS Smoker (finding) [facility] Start: 1960 Sex Assigned At Female F [facility] consumption unknown [facility] Start: 1960 Sex assigned at Not on file [facility] Start: 04-15-2024 End: 06-26-2024 Sex Female (finding) [facility] Start: 06-05-2024 Tobacco smoking stat [facility] Smokes tobacco daily [facility] History of tobacco use Cigarette Smoker [facility] Start: 06-05-2024 Tobacco use and exposure Smokeless tobacco non-user [facility] Start: 06-05-2024 Alcoholic beverage intake Ex-drinker (finding) [facility] Start: 06-05-2024 History of Social function [facility] Healthcare Functional Status Date Assessment Result Facility 12-22-2021 N/A General [facility] [place] Clinical Notes 12-22-2021 to 06-05-2024 Geoff Walker, [...] FNA was performed which came back as [place] III, Afirma testing was then done showing [...] in 1 year documented in this encounter [facility] 05-10-2024 Hospital Discharge instructions Ambulatory OrdersReferral to ENT Time Frame: 05/10/24, [facility] Work Phone: 04-01-2024 History of Present illness Narrative Images from the original note were not included. 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 documented in this encounter [facility] 03-29-2024 Evaluation note Diagnosis Onset Date Resolution Lumbar radiculopathy, chronic acute March 29 8:45am Pain in posterior right lower extremity acute March 29 8:45am Right thyroid nodule acute 2023 8:45am Cigarette nicotine dependence with nicotine-induced disorder acute April 15 3:12pm Encounter for screening for lung cancer acute April 15 3:12pm snf (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 of 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 acute April 15, 2024 3:12pm Moderate persistent asthma, uncomplicated acute April 3:12pm Lumbar radiculopathy, chronic acute June 26, 2024 8:28am [facility] Work Phone: 1(720) 624-352512-02-2024 Evaluation note* Diagnosis Onset Date Resolution Status [...] for lung cancer acute April 15 3:12pm snf (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 of 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 acute April 15 3:12pm Moderate persistent asthma, uncomplicated acute April 15 3:12pm [facility] Work Phone: 1(851) 357-843511-15-2024 NotePatient Education Materials Name: Cristine Manley Current [...] for continued care. Thank you for choosing [facility] for your care.[facility]10-31-2024 Evaluation note* Diagnosis Onset Date Resolution Status [...] for lung cancer acute April 15 3:12pm snf (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 of 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 acute April 15 3:12pm Moderate persistent asthma, uncomplicated acute April 15 3:12pm [facility] Work Phone: 1(830) 361-755810-16-2024 Evaluation note* Diagnosis Onset Date Resolution Status [...] persistent asthma, uncomplicated acute April 15 3:12pm [facility] Work Phone: 1(761) 829-269610-05-2022 NoteOPERATIVE NOTE OPERATION DATE: 01/12/2022 PREOPERATIVE DIAGNOSIS: [...] of the polyp. CC: Cornelius Garrison M.D.[facility] [id number] NoteChief Complaint consultation for epigastric pain HPI [...] Chronic obstructive pulmonary dise (more content not included)...[facility] HospitalComment on [facility]:Result Comment: Electronically Signed By: RAJINDER TAVERAS, Mihaela Trujillo\Date and Time Signed: 12/22/21 17:34 EDTEvaluation + Plan note No data available for this section General Surgery [place] Evaluation note* Diagnosis Onset Date Resolution Status Lumbar radiculopathy, chronic acute [facility] Work Phone: Evaluation note* Diagnosis Onset Date Resolution Status Lumbar radiculopathy, chronic acute Headache acute Joint pain acute Tick bite acute [facility] Work Phone: Evaluation note* Diagnosis Onset Date Resolution Status Headache acute Joint pain acute Tick bite acute Chronic obstructive pulmonary disease, unspecified acute Lumbar radiculopathy, chronic acute [facility] Work Phone: Evaluation note* Diagnosis Onset Date Resolution Status Chronic obstructive pulmonary disease, unspecified acute Lumbar radiculopathy, chronic acute Bilateral knee pain acute COPD exacerbation acute Lumbar pain acute Lumbar radiculopathy, chronic acute Bilateral knee pain acute Primary osteoarthritis of both knees acute [facility] Work Phone: Evaluation note* Diagnosis Onset Date Resolution Status Bilateral knee pain acute COPD exacerbation acute Lumbar pain acute Lumbar radiculopathy, chronic acute Bilateral knee pain acute Primary osteoarthritis of both knees acute Menopause acute [facility] Work Phone: Evaluation note* Diagnosis Lumbosacral radiculopathy- Primary Thoracic or lumbosacral neuritis or radiculitis, unspecified Numbness and tingling Disturbance of skin sensation documented in this encounter [facility] HealthcareEvaluation note* Diagnosis Thyroid nodule (CMS/HCC)- Primary Nontoxic uninodular goiter documented in this encounter [facility] HealthcareHospital Discharge instructions No data available for this section [facility] [place] Hospital Discharge instructionsAmbulatory Orders* Referral to Orthopedics Time Frame: 06/26/24, Location: None Selected [facility] Work Phone: Progress note No data available for this section [facility] Surgery [place] Reason for visit Narrative* Other Medical (Routine) - Closed Specialty Diagnoses / Procedures Referred By Contac t Referred To Contact Neurology Diagnoses Neuralgia and neuritis, unspecified Procedures MT NEEDLE EMG EA EXTREMTY W/PARASPINL AREA COMPLETE MT NERVE CONDUCTION STUDIES 9-10 STUDIES Ofelia Arceo PA-C [address] [place] [address] Phone: tel: fax: Cecil Fields MD [address] [place] [address] Phone: tel: fax: Referral ID Status Reason Start Date Expiration Date V isits Requested Visits Authorized [id number] Closed Perform Procedure 03/27/2024 09/23/2024 1 1 [facility] Healthcare Summary Purpose Family History Relationship Condition [...] Back & Knee Pain-HIGH RISK March 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 COPD April 15, [...] for lung cancer Am[place] 6th, 2025 3:12pm snf (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 of inhaled stero ids April [...] Active Team Status: Active Member Role Status Dominikc Garrison MD Primary Care Provider Active Start: [...] Provider Active S tart: January 24, 2024 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 Start Date End Date Cornelius Garrison MD [address] [place] [id number] PCP - General Family Medicine 03/27/24 Ofelia Arceo MD [address] [address] Referring Physician Internal Medicine 03/27/24 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 Start Date End Date Cornelius Garrison MD [address] [place] [phone] PCP - General Family Medicine 03/27/24 Ofelia Arceo MD [address] [address] Referring Physician Internal Medicine 03/27/24 Team Status: Inactive Member Role Status Dates Cornelius Garrison MD Attending Provider Active St art: April 22, 2024 End: April 22, 2024 Team Status: Active Member Role Status Dates Cornelius Garrison MD Attending Provider Active St art: May 10, 2024 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 Start Date End Date Cornelius Garrison MD [address] [place] [phone] PCP - General Family Medicine 03/27/24 Ofelia Arceo MD [address] [address] Referring Physician Internal Medicine 03/27/24 Geoff Walker, DO [address] [place] [address] Otolaryngology 06/05/24 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 Start Date End Date Cornelius Garrison MD [address] [place] [address] PCP - General Family Medicine 03/27/24 Ofelia Arceo MD [address] [place] [address] Referring Physician Internal Medicine 03/27/24 Geoff Walker DO [address] [place] [place] [address] Otolaryngology 06/05/24 Team Status: Inactive Member Role Status Dates Cornelius Garrison MD Primary Care Provide r, Attending Provider Active Start: June 26, 2024 End: June 26, 2024 INFORMATION SOURCE (unrecogn ized section and content) DATE CREATED AUTHOR 02/21/2022 [facility] DATE CREATED AUTHOR AUTHOR'S ORGANIZ ATION 04/01/2022 [facility] DATE CREATED AUTHOR AUTHOR'S ORGANIZ ATION 05/12/2024 [facility] DATE CREATED AUTHOR AUTHOR'S ORGANIZ ATION 06/07/2024 [facility] EPIC DATE CREATED AUTHOR AUTHOR'S ORGANIZ ATION 06/26/2024 [facility] Goals (unrecognized section and content) Goals may [...] BASED ON THE PRIMARY CLINICAL RECORDS. [facility] [employer] [facility]. provides no warranty or guarantee of the accuracy or completeness of information in this document.
--- NOTE | 2024-07-10 08:14 | PM.CN ---
Consult Note: HPI Data of Consult Patient: known to practice within the last 3 years Requesting Physician: Julee Reynoso NP Primary Care Provider: Celia Blank MD Consult Narrative Reason for consult: f/u Narrative: Cristine Manley a pleasant 64 year old female has failed PT greater than 6 weeks, heat/ice, Tylenol, ibuprofen. currently utilizing tizanidine, ibuprofen, hydrocodone through PCP. hx of lumbar surgery, recently evaluated by NS who did not recommend further intervention. Recently underwent bilateral L4-5 L5-S1 facet medial branch block #1 and #2 with >80% improvement in functional ability and pain immediately following and hours after the procedure. Preop pain up to 10/10 post op pain 1/10 with significant pain relief while standing, walking, lifting, twisting. 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 (ICD-10) Asthma ?J45.909 - Unspecified asthma, uncomplicated (ICD-10) Surgical History H/O fine needle aspiration with imaging guidance ?Z98.890 - Other specified postprocedural states (ICD-10) Status post discectomy ?Z98.890 - Other specified postprocedural states (ICD-10) History of bunionectomy ?Z98.890 - Other specified postprocedural states (ICD-10) H/O bilateral oophorectomy ?Z90.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, bilateral (ICD-10) History of tonsillectomy ?Z90.89 - Acquired absence of other organs (ICD-10) Social History Little interest or pleasure in doing things: not at all Feeling down, depressed, or hopeless: not at all Meds Home Medications and Allergies Home Medications ?Medication ?Instructions ?Recorded ?Confirmed ?Type albuterol sulfate 2.5 mg/3 mL 2.5 mg inhalation Q4H PRN 10/11/24 03/31/25 History (0.083 %) solution for nebulization shortness of breath or wheezing albuterol sulfate 90 mcg/actuation 2 puff inhalation Q4H 01/19/24 07/08/24 History aerosol inhaler hydrocodone 5 mg-acetaminophen 325 1 tab PO Q8H 01/19/24 07/08/24 History mg tablet tizanidine 4 mg tablet 4 mg PO Q8H 01/19/24 07/08/24 History omeprazole 20 mg capsule,delayed 20 mg PO DAILY 02/01/24 07/08/24 History release bupropion HCl 150 mg 24 hr tablet, 150 mg PO DAILY 04/22/24 07/08/24 History extended release fluticasone fur. 200 mcg-umeclid 1 inh inhalation DAILY 04/22/24 07/08/24 History 62.5 mcg-vilant 25 mcg inhalat.powder (Trelegy Ellipta) Allergies Allergy/AdvReac Type Severity Reaction Status Date / Time Sulfa (Sulfonamide Allergy Unknown Unknown Verified 07/08/24 11:26 Antibiotics) levofloxacin (From Levaquin) Allergy Rash Verified 07/08/24 11:26 acetaminophen (From Percocet) AdvReac Intermediate Vomiting Verified 07/08/24 11:26 oxycodone (From Percocet) AdvReac Intermediate Vomiting Verified 07/08/24 11:26 Exam Constitutional Documenting provider has reviewed patient's vital signs: yes Common normals: no apparent distress, oriented x3, healthy appearing, alert and well nourished General appearance: cooperative [facility] Common normals: normocephalic, hearing grossly normal bilaterally and moist oral mucous membranes Head and scalp: normocephalic Eye Common normals: PERRL Pupil: PERRL Neck & C-Spine Common normals: full ROM General: normal visual inspection Chest Common normals: inspection of chest normal Respiratory Common normals: normal respiratory effort, no retractions and no use of accessory muscles Back & Pelvis Lumbar spine/lower back: ROM limited, pain with ROM, lumbar spinal tenderness and straight leg raise negative bilaterally; no paraspinal muscle tenderness and no paraspinal muscle spasm Sacroiliac joints: SI joints normal Other: left sij negative nicol(patricks), gaenslens, thigh thrust, compression test positive facet loading L2-S1 negative radiculopathy on exam, sensation intact BLE Neuro Common normals: oriented x3, CN's II-XII intact bilaterally, moves all extremities, no focal motor deficits, no sensory deficits noted and deep tendon reflexes 2+ bilaterally Sensorium/orientation: alert Motor exam: strength 5/5 throughout and no movement abnormalities noted Psych Common normals: mental status grossly normal, thought process normal, cooperative, affect normal, speech normal and activity/motor behavior normal Speech: normal speech Thought process: normal thought process Results Additional Findings Additional findings: If on a controlled substance or opioids, I have checked an [place] report on this patient and there are no aberrancies noted in the prescribing history.??If on a controlled substance or opioid a drug screen was completed and reviewed within the last year, and if there has not been a drug screen completed we ordered one today to monitor higher risk, state monitored pain medication use. As part of providing excellent, safe, comprehensive care, the following was completed at our patient's visit: 1. A medication reconciliation and review to ensure accurate knowledge of current/active medications, including asking our patients to inform us about any idek-agt-tjxuwaz medications or herbal remedies/nutritional supplements/alternative remedies. 2. A review to specifically ensure our patients have had annual screening for screening for depression, screening for tobacco use, and screening for unhealthy alcohol use. For concerning screenings had a discussion with the patient, provided patient education, and recommended follow-up with primary care provider when appropriate. If patient noted with a risk of falling, they received education on strength, gait, and balance training to prevent future risk of falling. Portions of this note may have been carried over from the previous visit and updated as appropriate. Please note this office utilizes paper charting in addition to the electronic medical record. A list of current medications, vitals, and PMH is available there as the clinical staff outside of myself do not have access to [employer] charting during the clinic day operations. As part of providing quality comprehensive care the current medications, vitals, and PMH were reviewed in the paper chart. Assessment and Plan Assessment and Plan (1) Lumbar facet arthropathy: Assessment and Plan: The patient has had over 3 months of moderate to severe low back pain with functional impairment and inadequate response to conservative care including NSAIDS (unless there are contraindication such as concurrent blood thinners), multiple oral or topical pain medications, and home exercise program/physical therapy.? Patient has completed >6 weeks of guided home exercise program and/or formal physical therapy program without relief of their symptoms.? I have reviewed the imaging of the lumbar spine and no red flags were identified.? The imaging reveals radiographic findings consistent with lumbar facet arthropathy The Oswestry Disability Index was completed, and the patient scored a 36%.? The patient noted the following:?? moderate to severe pain, pain with walking more than 0.5 miles, sleeping less than 6 hours due to pain, social life and travel impacted by pain We discussed the risks and benefits of the procedure with the patient, and we are NOT planning on using sedation as outlined in the guidelines from Medicare unless there is a documented reason that sedation would be strongly recommended.?? ?The procedure will be completed with fluoroscopic guidance.? (2) Lumbar stenosis with neurogenic claudication: (3) Failed back syndrome: (4) Sacroiliitis: Plan bilateral L4-S1 facet medial branch RFA for axial low back pain secondary to lumbar facet arthropathy with 10mg po valium 30-60 mins prior to RFA not interested in spinal cord stimulation continue HEP as tolerated f/u 1 month after RFA
== END 2024-07-10 08:00 | disposition home or self-care (01) ==
LOC: PM 08:00
PROVIDERS: PCP Family Medicine; Visit Provider Nurse Practitioner
DX: M47.816 Spondylosis without myelopathy or radiculopathy, lumbar region (principal); M48.062 Spinal stenosis, lumbar region with neurogenic claudication; M96.1 Postlaminectomy syndrome, not elsewhere classified; M46.1 Sacroiliitis, not elsewhere classified
CPT/HCPCS: G0463

== ENCOUNTER 2024-07-22 08:07 | Day surgery (SDC) | payer MEDICARE, OTHER, SELFPAY ==
[2024-07-22 08:20] VITALS: BP 149/90; PULSE 66; TEMP 36.3; O2SAT 99
--- OUTSIDE RECORDS SUMMARY | 2024-07-22 08:30 | XMS_ITS | CCD ---
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 Name Role Phone CORNELIUS GARRISON Primary Care Physician [phone] BLADIMIR PROVIDERCORNELIUS Referring Unavailab le NILL, Mihaela [...] Unavailable MD Cornelius Garrison Primary Care Provider [phone] DO Alexandro Galvez Attending Provider [phone] Cornelius Garrison MD Primary Care Provider King NITIN, Ofelia Unavailable Cornelius Garrison MD Primary Care Provider Alexandro Galvez DO Attending Provider [phone] Cornelius Garrison MD Attending Provider [phone] Cornelius Garrison MD Primary Care Provider Cornelius Garrison Admitting Unavailable Cornelius Garrison Attending Unavailable Cornelius Garrison Admitting Unavailable Cornelius Garrison Attending Unavailable Cornelius Garrison Primary Care Unavailable Alexandro Galvez Attending Unavailable Alexandro Galvez Admitting Unavailable Cornelius Garrison Primary Care Unavailable Geoff Walker DO Unavailable [phone] GEOFF WALKER Attending Unavailable CORNELIUS GARRISON Referring KNAE Boateng Attending Unavailable OFELIA ARCEO Referring Unavailable Cornelius Garrison MD Attending Provider King MARIANO-C, Ofelia Grace Attending Unavailab Tuan TAVERAS, [facility] Unava ilable Denilson TAVERAS, Duong Wagoner Attending Unavailable Bladimir TAVERAS, [facility] Unava ilable Gieverett TAVERAS, Duong Wagoner Attending Unavailable Bladimir TAVERAS, [facility] Unava ilable Gieverett TAVERAS, Andrius Wagoner Attending Unavailable Bladimir TAVERAS, [facility] Unava ilable Denilson TAVERAS, Duong Wagoner Attending Unavailable Bladimir TAVERAS, [facility] Unava ilable Denilson TAVERAS, Duong Wagoner Attending Unavailable Bladimir TAVERAS, [facility] Unava ilable Adis PA-C, Ofelia Grace Attending Unavailab Tuan TAVERAS, [facility] Unava ilable Bladimir TAVERAS, Cornelius Arjay Referring Unava ilable Adis PA-C, Ofelia Grace Attending Unavailab Tuan TAVERAS, [facility] Unava ilable Bladimir TAVERAS, [facility] Unava ilable Adis PA-C, Ofelia Grace Attending Unavailab Tuan TAVERAS, [facility] Unava ilable Adis PA-C, Ofelia Grace Admitting Unavailab le Adis PA-C, Ofelia Grace Attending Unavailab Tuan TAVERAS, [facility] Unava ilable [employer] PA-C, Sravani Benson Attending U navailable Allergies Allergy Classification Reported Allergen(s) Allergy Type Date of Onset Reaction(s) Facility (3 sources) Acetaminophen / oxyCODONE; Translations: [acetaminophen-oxy codone] Drug Allergy Nausea (finding) General [facility] [place] (6 sources) Alendronate; Translations: [alendronate] Drug Allergy 03-29-20 Muscle pain (finding) [facility] [place] (14 sources) Clarithromycin; Translations: [clarithromycin] Drug Allergy 07-31-19 Unknown (qualifier value) [facility] [place] (15 sources) levoFLOXacin; Translations: [levofloxacin] Drug Allergy 07-31-19 24 Eruption of skin (disorder) [facility] [place] (4 sources) Sulfonamides (Antibiotic); Translations: [sulfa drugs] Drug allergy Unknown (qualifier value) [facility] [place] (1 source) Acetaminophen / oxyCODONE Drug Allergy 03-25-20 16 [facility] (1 source) Alendronate Drug Allergy 03-18-20 16 [facility] (1 source) Clarithromycin Drug Allergy 03-25-20 16 [facility] (1 source) levoFLOXacin Drug Allergy 03-25-20 16 [facility] (1 source) Quinolones (Antibiotic) Drug allergy (disorder) 03-25-20 16 [facility] (1 source) Sulfonamides (Antibiotic) Drug allergy (disorder) 05-01-19 14 [facility] (1 source) Acetaminophen Drug Allergy 07-31-19 24 [facility] (11 sources) Alendronate Drug Allergy 07-31-19 24 [facility] (11 sources) oxyCODONE Drug Allergy 07-31-19 24 [facility] (11 sources) Sulfonamides (Antibiotic) Allergy to substance 07-31-19 24 Comment:as a young child, pt. cannot recall reaction [facility] (11 sources) Biaxin XL *MACROLIDES* Allergy to substance 07-28-19 24 [facility] (3 sources) Acetaminophen / oxyCODONE Drug Allergy 06-05-19 25 Nausea Only [facility] (3 sources) Clarithromycin Allergy to substance 03-29-20 24 [facility] (3 sources) Lactobacillus acidophilus Drug Allergy 06-05-19 25 [facility] (3 sources) Quinolones (Antibiotic) Drug Intolerance 03-11-20 10 Rash [facility] (3 sources) Sulfonamides (Antibiotic) Drug Intolerance 03-11-20 10 [facility] (1 source) Ciprofloxacin; Translations: [Cipro] Drug Allergy [facility] (1 source) symbalta; Translations: [symbalta] Propensity to adverse reactions to drug (disorder) [facility] Repository Medications Current Medications Medication Drug Class(es) [...] 1 tablet by mouth at bedtime HYDROcodone-acetaminophen (Nazlini) 5-325 MG tablet Take 1 tablet by [...] PO Daily 90 90 April 15, 2024 1:00am Start: 03-11-2024 [...] Rinse after use Start: 03-29-2024 End: 04-15-2024 Whgnvzfyklx-Mfpcouyol-Vjzgrr er (Trelegy Ellipta) 200-62.5-25 mcg blister with device Discontinued 1 INH INHALATION Daily 60 March 29, 2024 10:38am April 15, 2024 4:41pm Rinse after use Start: 03-29-2024 End: 04-15-2024 Bjgwnmzyaha-Znafcccqm-Gwipjc er (Trelegy Ellipta) 200-62.5-25 mcg blister with device Discontinued 1 INH INHALATION Daily 60 March 29, 2024 9:38am April 15, 2024 3:41pm Rinse after use Start: 03-11-2024 End: 03-29-2024 Lpbbbtwbsde-Svnulthfr-Omeobd er (Trelegy Ellipta) 200-62.5-25 mcg blister with device Discontinued 1 INH INHALATION Daily 180 March 11, 2024 1:00am March 29, 2024 10:38am Rinse after use Start: 03-11-2024 End: 03-29-2024 Rihkienuquj-Jnfhkgwak-Qttuiw er (Trelegy Ellipta) 200-62.5-25 mcg blister with [...] mL syringe Discontinued 0.5 ML IM Once 0.March 11, 2024 12:00am March 29, 2024 8:52am [...] March 29, 2024 9:04am 60 actuat tiotropium 0.31397 mg/actuat inhalation spray (12 sources) Anticholinergic Start: 02-08-2024 End: 03-11-2024 take 1 puff(s) by inhalation once daily in the morning Tiotropium Myrtle (Spiriva Respimat) 1.25 mcg/actuation mist Discontinued 2 [...] 01-24-2024 Chronic Other aftercare (1 source) Other terminal manager (current) drug therapy; Translations: [OTH CUSTODIAL CURRENT DRUG THERAPY] Onset: 01-17-2022 Episodic Other aftercare (6 sources) Long-term current use of inhaled steroid; Translations: [halfway (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 of 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] Onset: 06-05-2024 Resolved: 06-05-2024 04-15-2024 Episodic Other aftercare (3 sources) halfway (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 of 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; Translations: [Long-term [...] which she is planned to see a county nurse in the near future. She also [...] therapy without benefit. She is established with [place] [facility] undergoing left L4-5 CARLOS and [...] though does not resolve. Oral narcotics including Nazlini which makes pain tolerable though does not resolve. Topical agents including lidocaine patches and Bengay with limited benefit. Pain management injection modalities years ago with temporary benefit lasting only a few days. Physical therapy years ago without significant benefit. Chiropractic manipulation x 1 visit without benefit therefore patient never returned. Activity modification [1] Pain management injection modalities through [facility]. Initial injection targeted left L4-5 which she [...] No si (more content not included)... Normal [facility] Provider Letteron 06-06-2024 Provider Letter (Inserted Image. Gela ble to display) Cornelius Garrison MD [facility] [facility] [address], [place] [address] Re: Cristine Manley Date of Visit: 06/06/2024 Dear Cornelius Garrison MD, This patient was recently seen in the neurosurgical office. Please see attached note for further details. Let me know if you have any questions or concerns. Sincerely, DEMARCUS Gan Providers: The following document(s) were included in the letter: June 06, 2024 09:36:40 EST - (06/06/2024) Neurosurgery Office Visit Note Normal [facility] Dominick 04-22-2024 L -------- -------- Specimen: [id number] Received: 04/24/24 Status: OMAR Freddy Num: [id number] Spec Type: Cytology Subm Dr: Cornelius Garrison MD Tissues: A FNA SLIDES NOPATH (INF RT THY) Procedures: Cyto Int and Re, PAPSTN/5 -------- Age/ Patient Sex Location Account Attending Physician -------- Cristine Manley 64/F [place] [id number] Cornelius Garrison MD -------- SPEC NUM: [id number] RECD: 04/24/24 STATUS: OMAR HAYES NUM: [id number] TROI: 04/22/24- SUBM DR: Cornelius Garrison MD ENTERED: 04/24/[address] [facility] [address]: Les Lee MD SPEC TYPE: Cytology DEPT: KEN NCYT ENTERED BY: [id number] RECV BY: [id number] ORDERED: Cyto Int and Re, PAPSTN/5 ORDERED: Cyto Int and Re, PAPSTN/5 Supplemental Report Addendum 1 Entered: 05/10/24-7702 Supplemental for findings of [facility] GENOMIC SEQUENCING ORE FIELDER: -Ensemble Dish Cloth Inspector -Benign (risk of malignancy 4%) -Xpression [place] -N/A -Other Classifiers -BRAF p. V600E c. 1799T>A: Negative -RET/PTC1: Not detected -RET/PTC3: Not detected -MTC: Negative -Parathyroid: Negative TERT PROMOTER REGION: -Tests (2) not Performed (TNP) -------- Specimen: [id number] Received: 04/24/24 Status: OMAR Freddy Num: [id number] Spec Type: Cytology Subm Dr: Cornelius Garrison MD Tissues: A FNA SLIDES NOPATH (INF RT THY) Procedures: Cyto Int and Re, PAPSTN/5 -------- Patient: Cristine Manley [id number] (Continued) -------- Specimen: [id number] Received: 04/24/24 (Continued) Supplemental Report (Continued) Signed (signature on file) Gail Sheth MD 04/24/24 1439 -------- Specimen: [id number] Received: 04/24/24 Status: BASIAPalma Hayes Num: [id number] Spec Type: Cytology Subm Dr: Cornelius Garrison MD Tissues: A FNA SLIDES NOPATH (INF RT THY) Procedures: Cyto Int and Re, PAPSTN/5 -------- Patient: Cristine Manley [id number] (Continued) -------- Specimen: [id number] Received: 04/24/2444 (Continued) Supplemental Report (Continued) Addendum Signed (signature on file) Pedro-Diogenes Sheth MD 05/10/24 1132 -------- Pathological Diagnosis Right thyroid nodule, inferior, FNA cytology -Adequate follicular groups in the ThinPrep smear, appropriate for assessment, consisting of small to occasionally slightly larger and reactive follicular cells, suggesting dimorphic population and the category 3 [place] system, atypia of the undetermined significance, otherwise [...] vial stored at -20 for microscopic examination. (VA/md) Microscopic Description Microscopic examinations are performed supporting the above interpretation CPT Codes 44879 -------- -------- Specimen: [id number] Received: 04/24/24 Status: OMAR Hayes Num: [id number] Spec Type: Cytology Subm Dr: Cornelius Garrison MD Tissues: A FNA SLIDES NOPATH (INF RT THY) Procedures: Cyto Int and Re, PAPSTN/5 -------- Patient: Cristine Manley [id number] (Continued) -------- Signed (signature on file) Gail Sheth MD 04/24/24 4468 Normal [facility] EMG 2 Extremitieson 04-01-20 EMG/NCS BLE Right L5/S1 radic Francisco S1/2 radic [facility] NVC 9-10 Nerveson 04-01-2024 EMG/NCS BLE Right L5/S1 radic Francisco S1/2 radic [facility] Provider Letteron 03-26-2024 Provider Letter (Inserted Image. Gela ble to display) Cornelius Garrison MD [facility] [facility] [address], [place] [address] Re: Cristine Manley Date of Visit: 03/25/2024 Dear Cornelius Garrison MD, This patient was recently seen in the neurosurgical office. Please see attached note for further details. Let me know if you have any questions or concerns. Sincerely, DEMARCUS Gan Providers: The following document(s) were included in the letter: March 25, 2024 17:40:13 EST - (03/25/2024) Neurosurgery Office Visit Note Normal [facility] Neurosurgery Office/Clinic N oteon 03-25-2024 Neurosurgery Office/Clinic Note Chief Complaint CT thoracic, lumbar, XR lumbar, hips and neck review History of Present Illness The patient is a pleasant 64-year-old right-handed female with history of chronic nicotine use, asthma and recently diagnosed COPD for which she is planned to see a county nurse in the near future. She also [...] though does not resolve. Oral narcotics including Nazlini which makes pain tolerable though does not [...] increases slightl (more content not included)... Normal [facility] Basophils Auto (Bld) [#/Vol] on 03-21-2024 Basophils (Bld) [#/Vol] Automated basophil count 0.0-0.1 [facility] Basophils/100 WBC Auto (Bld) on 03-21-2024 Basophils/100 WBC (Bld) Automated basophil % 0.2-2.0 [facility] Eosinophils/100 WBC Auto (Bl d)on 03-21-2024 Eosinophils/100 WBC (Bld) Automated eosinophil % 0.9-7.0 [facility] Erythrocyte distribution wid th Auto (RBC) [Ratio]on 03-21-2024 Erythrocyte distribution width (RBC) [Ratio] Erythrocyte distribution width [Ratio] by Automated count 11.0-15.0 [facility] Hematocrit Auto (Bld) [Volum e fraction]on 03-21-2024 Hematocrit (Bld) [Volume fraction] Hematocrit [Volume Fraction] of Blood by Automated count 36.0-48.0 [facility] Hemoglobin [Mass/volume] in Bloodon 03-21-2024 Hemoglobin (Bld) [Mass/Vol] Hemoglobin [Mass/volume] in Blood 12.0-16.0 [facility] IgE [Units/volume] in Serum or Plasmaon 03-21-2024 IgE Qn IgE [Units/volume] i n Serum or Plasma 6-495 [facility] Comment on above: Performed at: [address] [id number] Director: Levi Pedroza MD, Phone: [phone] Laboratory - Hematology and Cell countson 03-21-2024 Immature granulocytes/100 WBC (Bld) 0.1 % 0.0-0.5 [facility] Leukocytes [#/volume] correc shant for nucleated erythrocytes in Blood by Automated counon 03-21-2024 WBC corrected for nucl RBC Auto (Bld) [#/Vol] Leukocytes [#/volume] corrected for nucleated erythrocytes in Blood by Automated coun 4.0-11.0 [facility] Lymphocytes Auto (Bld) [#/Vo l]on 03-21-2024 Lymphocytes (Bld) [#/Vol] Lymphocytes [#/volume] in Blood by Automated count 1.2-3.8 [facility] Lymphocytes/100 WBC Auto (Bl d)on 03-21-2024 Lymphocytes/100 WBC (Bld) Lymphocytes/100 leukocytes in Blood by Automated count Low 20.5-60.0 [facility] MCH Auto (RBC) [Entitic mass ]on 03-21-2024 MCH (RBC) [Entitic mass] MCH [Entitic mass] by Automated count 26.7-34.0 [facility] MCHC Auto (RBC) [Mass/Vol]on 03-21-2024 MCHC (RBC) [Mass/Vol] MCHC [Mass/volume] by Automated count 29.9-35.2 [facility] MCV Auto (RBC) [Entitic vol] on 03-21-2024 MCV (RBC) [Entitic vol] MCV [Entitic volume] by Automated count 81.0-99.0 [facility] Monocytes Auto (Bld) [#/Vol] on 03-21-2024 Monocytes (Bld) [#/Vol] Automated blood monocyte count 0.3-0.8 [facility] Monocytes/100 WBC Auto (Bld) on 03-21-2024 Monocytes/100 WBC (Bld) Automated monocyte % 1.7-12.0 [facility] Neutrophils Auto (Bld) [#/Vo l]on 03-21-2024 Neutrophils (Bld) [#/Vol] Neutrophils [#/volume] in Blood by Automated count High 1.4-6.5 [facility] Neutrophils/100 WBC Auto (Bl d)on 03-21-2024 Neutrophils/100 WBC (Bld) Automated neutrophil % 43.0-75.0 [facility] No Panel Informationon 03-21 Eosinophils # (Auto) 0.1 10 3/uL 0.0-0.7 [facility] Immature Granulocyte # (Auto) 0.01 10 3/uL 0.00-0.03 [facility] Platelet mean volume Auto (B ld) [Entitic vol]on 03-21-2024 Platelet mean volume (Bld) [Entitic vol] Platelet mean volume [Entitic volume] in Blood by Automated count 9.5-13.5 [facility] Platelets Auto (Bld) [#/Vol] on 03-21-2024 Platelets (Bld) [#/Vol] Platelets [#/volume] in Blood by Automated count 150-450 [facility] RBC Auto (Bld) [#/Vol]on RBC (Bld) [#/Vol] Erythrocytes [#/volu me] in Blood by Automated count 4.20-5.40 [facility] Provider Letteron 02-29-2024 Provider Letter (Inserted Image. Gela ble to display) Cornelius Whittaker [address], [place] [address] Re: Cristine Manley Date of Visit: 02/23/2024 Dear Cornelius Garrison MD, Please see attached results on this mutual patient you have with [facility] Result Name Current Result CT Spine Thoracic/Lumbar Myelogram w/Con 02/23/2024 Let me know if you have any questions or concerns. Sincerely, Jaclyn Bliss [facility] CHARGE ACCOUNTS AUDIT CLERK [facility] [address] Providers: Normal [facility] CT Spine Thoracic/Lumbar Mye logram w/Conon 02-27-2024 [...] Electronically Signed in Other Vendor System) Normal [facility] PTon 02-23-2024 INR Coag (PPP) [Relative time] 1.0 {INR} Normal <=3.5 [facility] Comment on above: Result Comment: INR has no normal range. INR Therapeutic range is: 2.0-3.0 (AF, CVA, TIAs, DVT prophylaxis, acute DVT) 2.5-3.5 ([facility] heart valves, recurrent thrombosis/emboli) Performed By: #### P TINR #### [place] [id number] PT Coag (PPP) [Time] 10.3 s Normal 9.2-12.0 [facility] Comment on above: Performed By: #### P TINR #### [address] [address] PTTon 02-23-2024 aPTT Coag (Bld) [Time] 24.8 s Normal 19.5-28.2 [facility] Comment on above: Performed By: #### P TT #### [address] [address] Platelet Counton 02-23-2024 Platelet 300 x10*3/mcL Normal 150-450 [facility] Comment on above: Performed By: #### P LTS #### [address] [address] XR Hip 2-3 Views Lefton 02-08 XR [...] Electronically Signed in Other Vendor System) Normal [facility] XR Myelography Spine 2 or Mo re [...] Electronically Signed in Other Vendor System) Normal [facility] XR Spine Cervical 4 or 5 Vie [...] Signed, Electronically Signed in Other Vendor System) [facility] XR Spine Lumbosacral Bending 2-3 Viewson 02-23-2024 [...] Dictated DT/TM: 02/23/2024 2:47 pm Signed by: Alexnadra Aleman MD Signed (Electronic Signature): 02/23/2024 3:14 pm Transcribed DT/TM: 02/23/2024 2:59 (If Report Is Signed, Electronically Signed in Other Vendor System) Normal [facility] Neurosurgery Office/Clinic N ericon 02-13-2024 Neurosurgery Office/Clinic Note Chief Complaint Back lumbar pain radiculopathy consult History of Present Illness The patient is a pleasant 64-year-old right-handed female with history of chronic nicotine use, asthma and recently diagnosed COPD for which she is planned to see a county nurse in the near future. 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 Oral narcotics including Nazlini which makes pain tolerable though does not [...] Newly diagnosed COPD, scheduled to see a county nurse in the near future Chronic nicotine [...] marijuana use. 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 She denies any Worker's Comp. related claims regarding today's visit FAMILY HISTORY: Lung cancer: Father Diabetes mellitus: Mother Hypertension: Mother Review of Systems Constitutional: [No fevers, chills, sweats] Eye: [No recent visual problems] ENMT: [ (more content not included)... Normal [facility] Provider Letteron 02-13-2024 Provider Letter (Inserted Image. Gela ble to display) Cornelius Garrison MD [address] [place] [address], [place] [address] Re: Cristine Manley Date of Visit: 02/13/2024 Dear Cornelius Garrison MD, This patient was recently seen in the neurosurgical office. Please see attached note for further details. Let me know if you have any questions or concerns. Sincerely, DEMARCUS Gan Providers: The following document(s) were included in the letter: February 13, 2024 09:39:53 EST - (02/13/2024) Neurosurgery Office Visit Note Normal [facility] XR knee BI 3V - NOT FOR ER U Sanam 01-24-2024 XR knee BI 3V - NOT FOR ER USE [facility] [address] [place] [address] XRay Report Signed Patient: Cristine Manley MR#: [id number] 53 : 1960 Acct:[id number] Age/Sex: 64 / F ADM Date: 01/24/24 Loc: [facility] Room: Type: [facility] Attending Dr: Alexandro Galvez DO Copies [...] Sunday Graham M.D.01/24/2024 3:45 PM Dictation Location: [place] [address] Transcribed By: [facility] 01/24/24 1545 Dictated By: Sunday Graham II, MD 01/24/24 154 Signed By: 01/24/24 1545 Normal [facility] Basophils Auto (Bld) [#/Vol] on 01-19-2024 Basophils (Bld) [#/Vol] 0.0 10 3/uL 0.0-0.1 [facility] Basophils (Bld) [#/Vol] Automated basophil count 0.0-0.1 [facility] Basophils/100 WBC Auto (Bld) on 01-19-2024 Basophils/100 WBC (Bld) 0.2 % 0.2-2.0 [facility] Basophils/100 WBC (Bld) Automated basophil % 0.2-2.0 [facility] Eosinophils/100 WBC Auto (Bl d)on 01-19-2024 Eosinophils/100 WBC (Bld) 4.3 % 0.9-7.0 [facility] Eosinophils/100 WBC (Bld) Automated eosinophil % 0.9-7.0 [facility] Erythrocyte distribution wid th Auto (RBC) [Ratio]on 01-19-2024 Erythrocyte distribution width (RBC) [Ratio] 13.1 % 11.0-15.0 [facility] Erythrocyte distribution width (RBC) [Ratio] Erythrocyte distribution width [Ratio] by Automated count .0-15.0 [facility] Estimated glomerular filtrat ion rate (GFR) non- Americanon 01-19-2024 GFR/1.73 sq M.predicted among non-blacks MDRD (S/P/Bld) [Vol rate/Area] mL/min/{1.73_m2} >=60 mL/min/1.73 m 2 [facility] GFR/1.73 sq M.predicted among non-blacks MDRD (S/P/Bld) [Vol rate/Area] Estimated glomerular filtration rate (GFR) non- >=60 mL/min/1.73 m 2 [facility] Fibrin D-dimer [Presence] in Platelet poor plasma by Latex agglutinationon 01-19-2024 Fibrin D-dimer LA Ql (PPP) 0.43 mg/L FEU <=0.59 [facility] Comment on above: Increases in D-Dimer concentration [...] plasma by Latex agglutination <=0.59 [facility] Comment on above: Increases in D-Dimer concentration [...] [Volume fraction] 39.5 % 36.0-48.0 [facility] Hematocrit (Bld) [Volume fraction] Hematocrit [Volume Fraction] of Blood by Automated count 36.0-48.0 [facility] Hemoglobin [Mass/volume] in Bloodon 01-19-2024 Hemoglobin (Bld) [Mass/Vol] 12.8 g/dL 12.0-16.0 [facility] Hemoglobin (Bld) [Mass/Vol] Hemoglobin [Mass/volume] in Blood 12.0-16.0 [facility] Laboratory - Chemistry and C hemistry - challengeon 01-19-2024 Calcium [Mass/Vol] 9.0 mg/dL 8.5-10.1 [facility] Chloride [Moles/Vol] 105 mmol/L 98-107 [facility] CO2 [Moles/Vol] 28.7 mmol/L 21.0-32.0 [facility] Creatinine [Mass/Vol] 0.92 mg/dL 0.55-1.02 [facility] GFR/1.73 sq M.predicted MDRD (S/P/Bld) [Vol rate/Area] mL/min/{1.73_m2} >=60 mL/min/1.73 m 2 [facility] Glucose [Mass/Vol] 78 mg/dL 74-106 [facility] Potassium [Moles/Vol] 4.0 mmol/L 3.5-5.1 [facility] Sodium [Moles/Vol] 138 mmol/L 136-145 [facility] Urea nitrogen [Mass/Vol] 27.0 mg/dL High 7.0-18.0 [facility] Urea nitrogen/Creatinin e [Mass ratio] 29.3 mg/mg [facility] Laboratory - Hematology and Cell countson 01-19-2024 Immature granulocytes/100 WBC (Bld) 0.3 % 0.0-0.5 [facility] Laboratory - Microbiology an d Antimicrobial susceptibilityon 01-19-2024 SARS-CoV-2 (COVID-19) RNA JOSELUIS+probe Ql (Unsp spec) Negative NEGATIVE [facility] Comment on above: This test has not [...] 12.6 10 3/uL High 4.0-11.0 [facility] WBC corrected for nucl RBC Auto (Bld) [#/Vol] Leukocytes [#/volume] corrected for nucleated erythrocytes in Blood by Automated coun High 4.0-11.0 [facility] Lymphocytes Auto (Bld) [#/Vo l]on 01-19-2024 Lymphocytes (Bld) [#/Vol] 4.4 10 3/uL High 1.2-3.8 [facility] Lymphocytes (Bld) [#/Vol] Lymphocytes [#/volume] in Blood by Automated count High 1.2-3.8 [facility] Lymphocytes/100 WBC Auto (Bl d)on 01-19-2024 Lymphocytes/100 WBC (Bld) 35.0 % 20.5-60.0 [facility] Lymphocytes/100 WBC (Bld) Lymphocytes/100 leukocytes in Blood by Automated count 20.5-60.0 [facility] MCH Auto (RBC) [Entitic mass ]on 01-19-2024 MCH (RBC) [Entitic mass] 29.4 pg 26.7-34.0 [facility] MCH (RBC) [Entitic mass] MCH [Entitic mass] by Automated count 26.7-34.0 [facility] MCHC Auto (RBC) [Mass/Vol]on 01-19-2024 MCHC (RBC) [Mass/Vol] 32.4 g/dL 29.9-35.2 [facility] MCHC (RBC) [Mass/Vol] MCHC [Mass/volume] by Automated count 29.9-35.2 [facility] MCV Auto (RBC) [Entitic vol] on 01-19-2024 MCV (RBC) [Entitic vol] 90.6 fL 81.0-99.0 [facility] MCV (RBC) [Entitic vol] MCV [Entitic volume] by Automated count 81.0-99.0 [facility] Monocytes Auto (Bld) [#/Vol] on 01-19-2024 Monocytes (Bld) [#/Vol] 1.2 10 3/uL High 0.3-0.8 [facility] Monocytes (Bld) [#/Vol] Automated blood monocyte count High 0.3-0.8 [facility] Monocytes/100 WBC Auto (Bld) on 01-19-2024 Monocytes/100 WBC (Bld) 9.5 % 1.7-12.0 [facility] Monocytes/100 WBC (Bld) Automated monocyte % 1.7-12.0 [facility] Neutrophils Auto (Bld) [#/Vo l]on 01-19-2024 Neutrophils (Bld) [#/Vol] 6.4 10 3/uL 1.4-6.5 [facility] Neutrophils (Bld) [#/Vol] Neutrophils [#/volume] in Blood by Automated count 1.4-6.5 [facility] Neutrophils/100 WBC Auto (Bl d)on 01-19-2024 Neutrophils/100 WBC (Bld) 50.7 % 43.0-75.0 [facility] Neutrophils/100 WBC (Bld) Automated neutrophil % 43.0-75.0 [facility] No Panel Informationon 01-18 Bedside Influenza Type A Antigen Negative [facility] Comment on above: Negative for Flu A p rotein antigen. Infection due to Flu Acannot be ruled out. Flu A antigen in the sample may bebelow the detection limit of the test. Bedside Influenza Type B Antigen Negative [facility] Comment on above: Negative for Flu B p rotein antigen. Infection due to Flu Bcannot be ruled out. Flu B antigen in the sample may bebelow the detection limit of the test. Eosinophils # (Auto) 0.5 10 3/uL 0.0-0.7 [facility] Immature Granulocyte # (Auto) 0.04 10 3/uL High 0.00-0.03 [facility] Troponin I High Sensitivity 5.8 pg/mL 4.0-51.3 [facility] Comment on above: CUT-OFF POINTS HAVE BEEN [...] vol] 9.3 fL Low 9.5-13.5 [facility] Platelet mean volume (Bld) [Entitic vol] Platelet mean volume [Entitic volume] in Blood by Automated count Low 9.5-13.5 [facility] Platelets Auto (Bld) [#/Vol] on 01-19-2024 Platelets (Bld) [#/Vol] 304 10 3/uL 150-450 [facility] Platelets (Bld) [#/Vol] Platelets [#/volume] in Blood by Automated count 150-450 [facility] RBC Auto (Bld) [#/Vol]on RBC (Bld) [#/Vol] 4.36 10 6/uL 4.20-5.40 [facility] RBC (Bld) [#/Vol] Erythrocytes [#/volu me] in Blood by Automated count 4.20-5.40 [facility] Serum or plasma anion gap de terminationon 01-19-2024 Anion gap [Moles/Vol] 8.3 mmol/L [facility] Anion gap [Moles/Vol] Serum or plasma anion gap determination [facility] Borrelia burgdorferi IgG+IgM Ab [Presence] in Serum by Immunoassayon 10-13-2023 B. burgdorferi IgG+IgM IA Ql (S) Negative Negative [facility] Comment on above: Lyme antibodies not detected. Reflex testing is notindicated.No laboratory evidence of infection with B. burgdorferi(Lyme disease). Negative results may occur in patientsrecently infected (less than or equal to 14 days) with B.burgdorferi. If recent infection is suspected, repeattesting on a new sample collected in 7 to 14 days isrecommended.Performed at: [facility] [id number] Director: Jeovany Bazan PhD, Phone: [phone] General Surgery Office/Clini c Noteon 02-21-2022 General [...] Primary malignant neoplasm of lung: Father. Normal [facility] Comment on above: Result Comment: Elec tronically Signed By: RAJINDER TAVERSA, Mihaela Michelle\.br\Date and Time Signed: 02/21/22 16:42 [...] Tobacco user Very low density lipoprotinemia Normal [facility] Reminderson 02-01-2022 Reminders - From: Sushma Shell LPN To: N - Clinical; Sent: 02/01/2022 16:18:52 EDT Show up: 04/12/2022 07:00:00 EST Subject: EGD recall Due Date/Time: 05/04/2022 07:00:00 EST Reminder/Recall Patient is due to repeat EGD 05/04/2022 due to gastric ulcer. Normal [facility] Outside Colonoscopyon 2021 Outside Colonoscopy [id number]#[id number]:127 Normal [facility] Pathology Noteon 01-14-2022 Pathology Note [id number]#1.00CD:127 Normal [facility] Reminderson 01-14-2022 Reminders - From: Sushma Shell LPN To: [facility] - Clinical; Sent: 01/14/2022 08:07:35 EDT Show up: 12/14/2031 07:00:00 EDT Subject: colonoscopy recall Due Date/Time: 01/13/2032 07:00:00 EDT Reminder/Recall Patient is due for screening colonoscopy 01/13/2032. Normal [facility] Pre-Certification Formon Pre-Certification Form [id number]#1.00CD:127 Normal [facility] Lab Reportson 01-11-2022 Lab Reports [id number]#1.00CD:127 Normal [facility] Covid-19 PCR ([facility])on SARS-CoV-2 (COVID-19) RNA JOSELUIS+probe Ql (Unsp spec) Not detected Normal NOT DETECTED [facility] Comment on above: Result Comment: This test is not yet approved or cleared by the [place] FDA. When there are no FDA-approved or cleared tests available, and other criteria are met, FDA can make tests available under an emergency access mechanism called an Emergency Use Authorization (EUA). The EUA for this test is supported by the [employer]ch[employer] Representative of Health and Human Service's (HHS's) declaration [...] consistent with SARS-CoV-2. Performed By: #### [facility] #### [facility] [address] [address] [address] Pablo Sheth Physician Orderon 12-23-2021 Physician Order [id number]#[id number]:127 [facility] Ambulatory Visit Summaryon 0 12-22-2021 [...] Tobacco user Very low density lipoprotinemia Normal [facility] CBC AUTO DIFFon 12-17-2021 BASO # 0.1 103/ul Normal 0.0-0.1 [facility] Comment on above: Performed By: #### D ATCBC #### [facility] [address] [place] [address] Dr. Pablo Sheth Basophils/100 WBC (Bld) 0.4 % Normal 0.2-2.0 [facility] Comment on above: Performed By: #### D ATCBC #### [facility] [address] [address] [address] Pablo Sheth EO # 0.3 103/ul Normal 0.0-0.7 [facility] Comment on above: Performed By: #### D ATCBC #### [facility] [address] [address] [address] Pablo Sheth Eosinophils/100 WBC (Bld) 2.4 % Normal 0.9-7.0 [facility] Comment on above: Performed By: #### D ATCBC #### [facility] [address] [address] [address] Pablo Sheth Erythrocyte distribution width (RBC) [Ratio] 13.2 % Normal 11.0-15.0 [facility] Comment on above: Performed By: #### D ATCBC #### [facility] [address] [address] [address] Pablo Sheth Hematocrit (Bld) [Volume fraction] 42.6 % Normal 36.0-48.0 [facility] Comment on above: Performed By: #### D ATCBC #### [facility] [address] [address] [address] Pablo Sheth Hemoglobin (Bld) [Mass/Vol] 13.7 g/dL Normal 12.0-16.0 [facility] Comment on above: Performed By: #### D ATCBC #### [facility] [address] [address] [address] Pablo Sheth IG # 0.05 10e3/ul Critically high 0.00-0.03 [facility] Comment on above: Performed By: #### D ATCBC #### [facility] [address] [address] [address] Pablo Sheth IG % 0.4 % Normal 0.0-0.5 [facility] Comment on above: Performed By: #### D ATCBC #### [facility] [address] [address] [address] Pablo Sheth LYMPH # 2.8 103/ul Normal 1.2-3.8 [facility] Comment on above: Performed By: #### D ATCBC #### [facility] [address] [address] [address] Pablo Sheth Lymphocytes/100 WBC (Bld) 20.9 % Normal 20.5-60.0 [facility] Comment on above: Performed By: #### D ATCBC #### [facility] [address] [address] [address] Pablo Sheth MCH (RBC) [Entitic mass] 29.2 pg Normal 26.7-34.0 [facility] Comment on above: Performed By: #### D ATCBC #### [facility] [address] [address] [address] Pablo Sheth MCHC (RBC) [Mass/Vol] 32.2 g/dL Normal 29.9-35.2 [facility] Comment on above: Performed By: #### D ATCBC #### [facility] [address] [address] [address] Pablo Sheth MCV (RBC) [Entitic vol] 90.8 fL Normal 81.0-99.0 [facility] Comment on above: Performed By: #### D ATCBC #### [facility] [address] [address] [address] Pablo Sheth MONO # 1.0 103/ul Critically high 0.3-0.[address] [facility] Comment on above: Performed By: #### D ATCBC #### [facility] [address] [address] [address] Pablo Sheth Monocytes/100 WBC (Bld) 7.5 % Normal 1.7-12.0 [facility] Comment on above: Performed By: #### D ATCBC #### [facility] [address] [place] [address] Dr. Pablo Sheth NEUT # 9.2 103/ul Critically high 1.4-6.5 [facility] Comment on above: Performed By: #### D ATCBC #### [facility] [address] [place] [address] Dr. Pablo Sheth Neutrophils/100 WBC (Bld) 68.4 % Normal 43.0-75.0 [facility] Comment on above: Performed By: #### D ATCBC #### [facility] [address] [place] [address] Dr. Pablo Sheth Platelet mean volume (Bld) [Entitic vol] 9.3 fL Critically low 9.5-13.5 [facility] Comment on above: Performed By: #### D ATCBC #### [facility] [address] [place] [address] Dr. Pablo Sheth PLT 313 103/ul Normal 150-450 [facility] Comment on above: Performed By: #### D ATCBC #### [facility] [address] [place] [address] Dr. Pablo Sheth RBC 4.69 106/ul Normal 4.20-5.40 [facility] Comment on above: Performed By: #### D ATCBC #### [facility] [address] [place] [address] Dr. Pablo Sheth WBC 13.4 103/ul Critically high 4.0-11.[address] [facility] Comment on above: Performed By: #### D ATCBC #### [facility] [address] [address] [address] Pablo Sheth BERKLEY - TSHon 12-17-2021 TSH 1.241 uIU/mL Normal 0.358-3.740 [facility] Comment on above: Performed By: #### D ATTSH, DATBMP #### [facility] [address] [address] [address] Pablo Sheth TSH RANGE SEE BELOW Normal [facility] Comment on above: Result Comment: <0.3 4 UIU/ml HYPERTHYROID 0.34-5.60 UIU/ml EUTHYROID >5.60 UIU/ml HYPOTHYROID Performed By: #### D ATTSH, DATBMP #### [facility] [address] [place] [address] Dr. Pablo Sheth BERKLEY- BMP WITH LIPIDon 2021 Anion gap [Moles/Vol] 11.9 mmol/L Normal [facility] Comment on above: Performed By: #### D ATTSH, DATBMP #### [facility] [address] [place] [address] Dr. Pablo Sheth Calcium [Mass/Vol] 9.1 mg/dL Normal 8.5-10.1 [facility] Comment on above: Performed By: #### D ATTSH, DATBMP #### [facility] [address] [place] [address] Dr. Pablo Sheth Chloride [Moles/Vol] 104 mmol/L Normal 98-107 [facility] Comment on above: Performed By: #### D ATTSH, DATBMP #### [facility] [address] [place] [address] Dr. Pablo Sheth Cholesterol [Mass/Vol] 207 mg/dL Critically high <=200 [facility] Comment on above: Performed By: #### D ATTSH, DATBMP #### [facility] [address] [place] [address] Dr. Pablo Sheth Cholesterol in HDL [Mass/Vol] 52 mg/dL Normal 40-60 [facility] Comment on above: Performed By: #### D ATTSH, DATBMP #### [facility] [address] [address] [address] Pablo Sheth Cholesterol in LDL [Mass/Vol] 141.4 mg/dL Normal [facility] Comment on above: Performed By: #### D ATTSH, DATBMP #### [facility] [address] [address] [address] Pablo Sheth CO2 [Moles/Vol] 29.3 mmol/L Normal 21.0-32.[address] [facility] Comment on above: Performed By: #### D ATTSH, DATBMP #### [facility] [address] [address] [address] Pablo Sheth Creatinine [Mass/Vol] 0.77 mg/dL Normal 0.55-1.02 [facility] Comment on above: Performed By: #### D ATTSH, DATBMP #### [facility] [address] [address] [address] Pablo Sheth EGFR-AF SAMMARINESE >60 Normal >=[address] [facility] Comment on above: Performed By: #### D ATTSH, DATBMP #### [facility] [address] [address] [address] Pablo Sheth EGFR-NON AF SAMMARINESE >60 Normal >=60 [facility] Comment on above: Performed By: #### D ATTSH, DATBMP #### [facility] [address] [address] [address] Pablo Sheth Glucose [Mass/Vol] 109 mg/dL Critically high 74-106 [facility] Comment on above: Performed By: #### D ATTSH, DATBMP #### [facility] [address] [address] [address] Pablo Sheth HDL NORMAL > or = 60 mg/dl - LO W CARDIOVASCULAR RISK <40 mg/dl - HIGH CARDIOVASCULAR RISK Normal [facility] Comment on above: Performed By: #### D ATTSH, DATBMP #### [facility] [address] [address] [address] Pablo Sheth LDL CALC NORMAL SEE BELOW Normal [facility] Comment on above: Result Comment: <100 mg/dl OPTIMAL 100 - 129 mg/dl NEAR OR ABOVE OPTIMAL 130 - 159 mg/dl BORDERLINE HIGH 160 - 189 mg/dl HIGH >190 mg/dl VERY HIGH Performed By: #### D ATTSH, DATBMP #### [facility] [address] [address] [address] Pablo Sheth Potassium [Moles/Vol] 4.2 mmol/L Normal 3.5-5.1 [facility] Comment on above: Performed By: #### D ATTSH, DATBMP #### [facility] [address] [address] [address] Pablo Sheth Sodium [Moles/Vol] 141 mmol/L Normal 136-145 [facility] Comment on above: Performed By: #### D ATTSH, DATBMP #### [facility] [address] [address] [address] Pablo Sheth Triglyceride [Mass/Vol] 68 mg/dL Normal <=150 [facility] Comment on above: Performed By: #### D ATTSH, DATBMP #### [facility] [address] [address] [address] Pablo Sheth Urea nitrogen [Mass/Vol] 26.0 mg/dL Critically high 7.0-18.0 [facility] Comment on above: Performed By: #### D ATTSH, DATBMP #### [facility] [address] [address] [address] Pablo Sheth Urea nitrogen/Creatinin e [Mass ratio] 33.8 mg/mg Normal [facility] Comment on above: Performed By: #### D ATTSH, DATBMP #### [facility] [address] [address] [address] Pablo Sheth VLDL CALC 13.6 mg/dL Normal [facility] Comment on above: Performed By: #### D ATTSH, DATBMP #### [facility] [address] [address] [address] Pablo Sheth Physician Referralon 022 Physician Referral [id number]:127 Normal [facility] Vital Signs Date Time Vital Sign Value Performing Clinician Facility 06-26-2024 08:30-0400 Body height 170.18 cm Cornelius Garrison MD Work Phone: [facility] 06-26-2024 08:30-0400 Body mass index (BMI) [Ratio] 27.6 kg/m2 Cornelius Garrison MD Work Phone: [facility] 06-26-2024 08:30-0400 Body weight 79.94 kg Cornelius Garrison MD Work Phone: [facility] 06-26-2024 08:30-0400 Diastolic blood pressure 107 mm[Hg] Cornelius Garrison MD Work Phone: [facility] 06-26-2024 08:30-0400 Heart rate 80 /min Cornelius Garrison MD Work Phone: [facility] 06-26-2024 08:30-0400 Respiratory rate 12 /min Cornelius Garrison MD Work Phone: [facility] 06-26-2024 08:30-0400 SaO2% (BldA) [Mass fraction] 95 % Cornelius Garrison MD Work Phone: [facility] 06-26-2024 08:30-0400 Systolic blood pressure 168 mm[Hg] Cornelius Garrison MD Work Phone: [facility] 06-05-2024 14:11-0500 Body height 170.2 cm Geoff Walker DO Work Phone: [facility] 06-05-2024 14:11-0500 Body mass index (BMI) [Ratio] 27.72 kg/m2 Geoff Walker DO Work Phone: [facility] 06-05-2024 14:11-0500 Body weight 80.29 kg Geoff Walker DO Work Phone: [facility] 04-15-2024 15:14-0500 Body height 170.18 cm Cornelius Garrison MD Work Phone: [facility] 04-15-2024 15:14-0500 Body mass index (BMI) [Ratio] 27.7 kg/m2 Cornelius Garrison MD Work Phone: [facility] 04-15-2024 15:14-0500 Body temperature 98.4 [degF] Cornelius Garrison MD Work Phone: [facility] 04-15-2024 15:14-0500 Body weight 80.28 kg Cornelius Garrison MD Work Phone: [facility] 04-15-2024 15:14-0500 Diastolic blood pressure 82 mm[Hg] Corneilus Garrison MD Work Phone: [facility] 04-15-2024 15:14-0500 Heart rate 83 /min Cornelius Garrison MD Work Phone: [facility] 04-15-2024 15:14-0500 Respiratory rate 20 /min Cornelius Garrison MD Work Phone: [facility] 04-15-2024 15:14-0500 SaO2% (BldA) [Mass fraction] 96 % Cornelius Garrison MD Work Phone: [facility] 04-15-2024 15:14-0500 Systolic blood pressure 128 mm[Hg] Cornelius Garrison MD Work Phone: [facility] 03-29-2024 08:56-0500 Body height 170.18 cm Cornelius Garrison MD Work Phone: [facility] 03-29-2024 08:56-0500 Body mass index (BMI) [Ratio] 27.2 kg/m2 Cornelius Garrison MD Work Phone: [facility] 03-29-2024 08:56-0500 Body weight 78.92 kg Cornelius Garrison MD Work Phone: [facility] 03-29-2024 08:56-0500 Diastolic blood pressure 86 mm[Hg] Cornelius Garrison MD Work Phone: [facility] 03-29-2024 08:56-0500 Heart rate 91 /min Cornelius Garrison MD Work Phone: [facility] 03-29-2024 08:56-0500 SaO2% (BldA) [Mass fraction] 95 % Cornelius Garrison MD Work Phone: [facility] 03-29-2024 08:56-0500 Systolic blood pressure 124 mm[Hg] Cornelius Garrison MD Work Phone: [facility] 03-11-2024 15:29-0500 Body height 170.18 cm Cornelius Garrison MD Work Phone: [facility] 03-11-2024 15:29-0500 Body mass index (BMI) [Ratio] 27.8 kg/m2 Cornelius Garrison MD Work Phone: [facility] 03-11-2024 15:29-0500 Body temperature 97.6 [degF] Cornelius Garrison MD Work Phone: [facility] 03-11-2024 15:29-0500 Body weight 80.73 kg Cornelius Garrison MD Work Phone: [facility] 03-11-2024 15:29-0500 Diastolic blood pressure 80 mm[Hg] Cornelius Garrison MD Work Phone: [facility] 03-11-2024 15:29-0500 Heart rate 82 /min Cornelius Garrison MD Work Phone: [facility] 03-11-2024 15:29-0500 Respiratory rate 20 /min Cornelius Garrison MD Work Phone: [facility] 03-11-2024 15:29-0500 SaO2% (BldA) [Mass fraction] 98 % Cornelius Garrison MD Work Phone: [facility] 03-11-2024 15:29-0500 Systolic blood pressure 134 mm[Hg] Cornelius Garrison MD Work Phone: [facility] 02-08-2024 13:55-0400 Body height 170.18 cm MD Cornelius Garrison Work Phone: [facility] 02-08-2024 13:55-0400 Body mass index (BMI) [Ratio] 27.9 kg/m2 MD Cornelius Garrison Work Phone: [facility] 02-08-2024 13:55-0400 Body weight 80.9 kg MD Cornelius Garrison Work Phone: [facility] [facility] 02-08-2024 13:55-0400 Diastolic blood pressure 78 mm[Hg] MD Cornelius Garrison Work Phone: [facility] 02-08-2024 13:55-0400 Heart rate 74 /min MD Cornelius Garrison Work Phone: [facility] 02-08-2024 13:55-0400 SaO2% (BldA) [Mass fraction] 96 % MD Cornelius Garrison Work Phone: [facility] 02-08-2024 13:55-0400 Systolic blood pressure 110 mm[Hg] MD Cornelius Garrison Work Phone: [facility] 01-24-2024 14:35-0400 Body height 170.18 cm MD Cornelius Garrison Work Phone: [facility] 01-24-2024 14:35-0400 Body mass index (BMI) [Ratio] 28.3 kg/m2 MD Cornelius Garrison Work Phone: [facility] 01-24-2024 14:35-0400 Body weight 82.21 kg MD Cornelius Garrison Work Phone: [facility] 01-09-2024 15:17-0400 Body height 167.64 cm [facility] 01-09-2024 15:17-0400 Body mass index (BMI) [Ratio] 28.2 kg/m2 [facility] 01-09-2024 15:17-0400 Body weight 79.37 kg [facility] 01-09-2024 15:17-0400 Diastolic blood pressure 91 mm[Hg] [facility] 01-09-2024 15:17-0400 Heart rate 76 /min [facility] 01-09-2024 15:17-0400 SaO2% (BldA) [Mass fraction] 97 % [facility] 01-09-2024 15:17-0400 Systolic blood pressure 135 mm[Hg] [facility] 11-01-2023 08:57-0400 Body height 167.64 cm [facility] 11-01-2023 08:57-0400 Body mass index (BMI) [Ratio] 28.2 kg/m2 [facility] 11-01-2023 08:57-0400 Body weight 79.37 kg [facility] 11-01-2023 08:57-0400 Diastolic blood pressure 90 mm[Hg] [facility] 11-01-2023 08:57-0400 Heart rate 63 /min [facility] 11-01-2023 08:57-0400 Systolic blood pressure 136 mm[Hg] [facility] 10-13-2023 09:19-0400 Body height 167.64 cm [facility] 10-13-2023 09:19-0400 Body mass index (BMI) [Ratio] 28 kg/m2 [facility] 10-13-2023 09:19-0400 Body weight 78.92 kg [facility] 10-13-2023 09:19-0400 Diastolic blood pressure 76 mm[Hg] [facility] 10-13-2023 09:19-0400 Heart rate 78 /min [facility] 10-13-2023 09:19-0400 SaO2% (BldA) [Mass fraction] 98 % [facility] 10-13-2023 09:19-0400 Systolic blood pressure 118 mm[Hg] [facility] 07-31-2023 10:09-0400 Body height 167.64 cm [facility] 07-31-2023 10:09-0400 Body mass index (BMI) [Ratio] 28.8 kg/m2 [facility] 07-31-2023 10:09-0400 Body weight 80.9 kg [facility] 04-22-2024 10:09-0400 Diastolic blood pressure 89 mm[Hg] [facility] 07-31-2023 10:09-0400 Heart rate 74 /min [facility] 07-31-2023 10:09-0400 Systolic blood pressure 138 mm[Hg] [facility] 12-22-2021 14:20-0400 Blood Pressure Location Mihaela CASAS [facility] [place] 12-22-2021 14:20-0400 Diastolic blood pressure 80 mm[Hg] Mihaela KERNL [facility] [place] 12-22-2021 14:20-0400 Heart rate 72 /min Mihaela KERNL [facility] [place] 12-22-2021 14:20-0400 Respiratory rate 16 /min Mihaela KERNL [facility] [place] 12-22-2021 14:20-0400 Systolic blood pressure 116 mm[Hg] Mihaela KERNL [facility] [place] Encounters Encounter Date Encounter Type Care Provider Facility Start: 07-30-2024 ambulatory Cornelius Garrison MD Facility:[facility] Start: 07-08-2024 End: 07-08-2024 ambulatory Duong Oreilly MD Facility:[facility] Start: 06-26-2024 End: 06-26-2024 ambulatory Cornelius Garrison MD Work Phone: [facility] Work Phone: Start: 06-26-2024 End: 06-26-2024 Patient encounter procedure Cornelius Garrison MD [facility] Phone[facility] Work Phone: Start: 06-17-2024 End: 06-17-2024 ambulatory Duong Oreilly MD Facility:[facility] Start: 06-06-2024 End: 06-06-2024 ambulatory Cornelius Garrison MD Facility:[facility] Start: 06-05-2024 End: 06-05-2024 Office outpatient new 45 minutes Geoff Walker DO Work Phone: [facility] Comment on above: Thyroid nodule (CMS/ HCC) (Primary Dx) Start: 06-05-2024 End: 06-05-2024 Bamboo flowsheet Geoff Walker DO Work Phone: [facility] Start: 06-05-2024 End: 06-05-2024 Bamboo flowsheet Geoff Walker DO Work Phone: [facility] Start: 06-05-2024 End: 06-05-2024 ambulatory GEOFF WALKER Not Available Start: 05-13-2024 End: 05-13-2024 ambulatory Duong Oreilly MD Facility:[facility] Start: 05-10-2024 ambulatory Cornelius Garrison MD Work Phone: [facility] Work Phone: Start: 05-10-2024 Non-patient / Non-visit Cornelius Garrison MD Work Phone: [facility] Work Phone: Start: 04-29-2024 End: 04-29-2024 ambulatory Duong Oreilly MD Facility:[facility] Start: 04-22-2024 End: 04-22-2024 ambulatory Cornelius Garrison MD Work Phone: [facility] Work Phone: Start: 04-22-2024 End: 04-22-2024 Departed Referred Cornelius Garrison MD Work Phone: [facility] [place] [facility] Start: 04-22-2024 End: 04-22-2024 ambulatory Duong Oreilly MD Facility:[facility] Start: 04-15-2024 End: 04-15-2024 ambulatory Cornelius Garrison MD Work Phone: [facility] Work Phone: Start: 04-15-2024 End: 04-15-2024 Patient encounter procedure Cornelius Garrison MD Work Phone: [facility] Work Phone: Start: 04-01-2024 End: 04-01-2024 Patient encounter procedure Kane Parker DO Work Phone: [facility] Comment on above: Lumbosacral radiculo bakari (Primary Dx); Numbness and tingling Start: 04-01-2024 End: 04-01-2024 ambulatory KANE KEITH Not Available Start: 04-01-2024 End: 04-01-2024 Bamboo flowsheet Kane Keith DO Work Phone: [facility] Start: 04-01-2024 End: 04-01-2024 Bamboo flowsheet Kane Parker DO Work Phone: [facility] Start: 03-29-2024 End: 03-29-2024 Patient encounter procedure Cornelius Garrison MD Work Phone: [facility] Work Phone: Start: 03-25-2024 End: 03-25-2024 ambulatory Ofelia Arceo PA-C Facility:[facility] Start: 03-21-2024 Non-patient / Non-visit Cornelius Garrison MD Work Phone: [facility] Work Phone: Start: 03-11-2024 End: 03-11-2024 Patient encounter procedure Cornelius Garrison MD Work Phone: [facility] Work Phone: Start: 03-04-2024 Non-patient / Non-visit Cornelius Garrison MD Work Phone: [facility] Work Phone: Start: 03-04-2024 End: 03-04-2024 Patient encounter procedure Cornelius Garrison MD Work Phone: [facility] Work Phone: Start: 03-04-2024 End: 03-04-2024 ambulatory Cornelius Garrison Facility:[facility] Start: 02-23-2024 End: 02-23-2024 ambulatory Cornelius Garrison MD Facility:[facility] Start: 02-19-2024 End: 02-19-2024 ambulatory Ofelia Arceo PA-C Facility:[facility] Start: 02-13-2024 End: 02-13-2024 ambulatory Ofeliaoneil QUINTANAQuoc Facility:[facility]uro[facility] Start: 02-08-2024 End: 02-08-2024 ambulatory MD Cornelius Garrison Work Phone: [facility] Work Phone: Start: 02-08-2024 End: 02-08-2024 Patient encounter procedure MD Cornelius Garrison Work Phone: [facility] Work Phone: Start: 02-07-2024 Non-patient / Non-visit MD Mala Garrison Work Phone: [facility] Work Phone: Start: 02-01-2024 Non-patient / Non-visit Cornelius Garrison MD Work Phone: [facility] Work Phone: Start: 01-24-2024 End: 01-24-2024 ambulatory MD Cornelius Garrison Work Phone: [facility] Work Phone: Start: 01-24-2024 End: 01-24-2024 Patient encounter procedure MD Cornelius Garrison Work Phone: [facility] Work Phone: Start: 01-24-2024 End: 01-24-2024 Patient encounter procedure MD Cornelius Garrsion Work Phone: [facility] Start: 01-24-2024 End: 01-24-2024 ambulatory MD Cornelius Garrison Work Phone: [facility] Work Phone: Start: 01-19-2024 Non-patient / Non-visit MD Mala Garrison Work Phone: [facility] Work Phone: Start: 01-19-2024 Non-patient / Non-visit MD Mala Garrison Work Phone: [facility] Work Phone: Start: 01-09-2024 End: 01-09-2024 ambulatory [facility] Work Phone: Start: 01-09-2024 End: 01-09-2024 Patient encounter procedure [facility] Work Phone: Start: 11-01-2023 End: 11-01-2023 ambulatory [facility] Work Phone: Start: 11-01-2023 End: 11-01-2023 Patient encounter procedure [facility] Work Phone: Start: 10-13-2023 End: 10-13-2023 ambulatory [facility] Work Phone: Start: 10-13-2023 End: 10-13-2023 Patient encounter procedure [facility] Work Phone: Start: 07-31-2023 End: 07-31-2023 ambulatory [facility] Work Phone: Start: 07-31-2023 End: 07-31-2023 Patient encounter procedure [facility] Work Phone: Start: 05-26-2023 Non-patient / Non-visit [facility] Work Phone: Start: 02-01-2022 End: 02-02-2022 ambulatory [facility] Start: 02-01-2022 End: 02-01-2022 Patient encounter procedure Mihaela Miguel Angel NILL General [facility] Nill[facility] [place] Start: 01-13-2022 Encounter for preprocedural laboratory examination DR MIHAELA CASAS [facility] Start: 01-12-2022 End: 01-13-2022 ambulatory Mihaela CASAS Facility:CD:[id number] Start: 01-10-2022 End: 01-11-[address] MIHAELA CASAS Facility:[facility] Start: 01-10-2022 End: 01-11-2022 Encounter for preprocedural laboratory examination DR MIHAELA CASAS Facility:[facility] Start: 12-22-2021 End: 12-23-2021 ambulatory [facility]ela CASAS [facility] Start: 12-22-2021 End: 12-22-2021 Patient encounter procedure Mihaela CASAS [facility] Nill/[facility] [place] Start: 12-17-2021 End: 12-18-2021 ambulatory CORNELIUS GARRISON PROVIDER Facility:[facility] Procedures Date Procedure Procedure Detail Performing Clinician Start: 04-01-2024 End: 04-01-2024 Needle emg ea extremty w/paraspinl area complete Kane Parker DO Work Phone: Start: 01-24-2024 X-ray of both knees, three views MD Anoop Garrison Work Phone: Start: 01-12-2022 Colonoscopy Geoff Comfortshyann DO Work Phone: Start: 01-12-2022 Colonoscopy Mihaela NILL Start: 01-12-2022 Esophagogastroduodenoscopy Mihaela NILL Bilateral oophorectomy Ebenezer CASAS Colonoscopy Mihaela NILL Decompression of thoracic spine Mihaela NILL Discectomy of spine Mihaela CASAS Comment on above: T12-L1 T12-L1 Esophagogastroduodenoscopy Jax CASAS Excision of bunion Mihaela HALL Repair of vaginal tear Ebenezer CASAS Tonsillectomy Mihaela KERNL Plan of Treatment Date Care Activity Detail Author Start: 01-13-2032 [facility] Start: 06-10-2025 End: 06-10-2025 Patient encounter procedure 06/10/2025 8:45 AM EST Office Visit [facility] [address] [place] [phone] Geoff Walker, DO [address] [place] [address] [facility] Start: 06-26-2024 Patient referral [facility] Work Phone: Start: 06-05-2024 End: 06-05-2024 Patient encounter procedure 06/05/2024 2:30 PM EST Office Visit [facility] [address] [place] [phone] Geoff Walker, DO [address] [place] [address] Arrived [facility] Comment on above: Arrived Start: 05-10-2024 Patient referral [facility] Work Phone: Start: 04-05-2024 Patient referral [facility] Work Phone: Start: 04-01-2024 End: 04-01-2024 Patient encounter procedure 04/01/2024 3:00 PM EST Procedure Visit [facility] [address] [place] [address] Kane Parker, [address] [place] [address] Arrived [facility] Comment on above: Arrived Start: 01-24-2024 X-ray of both knees, three views XR knee BI 3V - NOT FOR ER USE [facility] Start: 01-24-2024 XR Knee - bilateral 3 Views [facility] Start: 01-22-2024 Pneumococcal Vaccine : 65+ Years (1 of 1 - PCV) Pneumococcal Vaccine: 65+ Years (1 of 1 - PCV) [facility] Start: 01-10-2024 Patient referral [facility] Work Phone: Start: 12-10-2023 Influenza vaccination Influenza Vacc ine (#1) [facility] Start: 1999 Screening for malign ant neoplasm of breast Mammogram [facility] Start: 1989 Screening for malign ant neoplasm of cervix [facility] Start: 01-22-1980 Screening for malign ant neoplasm of cervix Pap Smear [facility] Start: 1959 Screening for malign ant neoplasm of colon [facility] CT Unspecified body region [facility] CT Unspecified body region [facility] DXA Skeletal system.axial Views for bone density [facility] Patient Education Low back pain in adults [facility] Work Phone: Patient referral [facility] Work Phone: US Lower extremity v ein - right [facility] US Thyroid gland [facility] Immunizations Immunization Date Immunization Notes Care Provider Fa cility 03-11-2024 diphtheria, tetanus toxoids and acellular pertussis vaccine, unspecified formulation Cornelius Garrison MD Work Phone: [facility] 03-29-2021 COVID-19 mRNA, Comirnaty (Pfizer) [facility] 08-11-2020 COVID-19 mRNA, Comirnaty (Pfizer) [facility] 07-21-2020 COVID-19 mRNA, Comirnaty (Pfizer) [facility] 10-07-2018 diphtheria, tetanus toxoids and acellular pertussis vaccine, unspecified formulation [facility] 02-05-2014 tetanus and diphther ia toxoids, adsorbed, preservative free, for adult use (5 Lf of tetanus toxoid and 2 Lf of diphtheria toxoid) [facility] Payers Date Payer Category Payer Other GENERIC OTHER [id number] 2024 Unknown [id number] 2024 Medicare [id number] 2024 Medicare [id number] 2023 Unknown 2021 Unknown [id number] 1960 Self-pay [id number] 1959 Unknown [id number] 2.16.840.1.094556.3.579.2 .727 1959 Unknown [id number] .840.1.765653.3.579.2 .727 1959 Unknown [id number] .840.1.576968.3.579.2 .727 1959 Unknown [id number] 2.16.840.1.434098.3.579.2 .727 1959 Unknown [id number] 2.16.840.1.052174.3.579.2 .593 1959 Unknown [id number] 2.16.840.1.995397.3.579.2 .593 1959 Unknown [id number] 2.16.840.1.742675.3.579.2 .1259 1959 Unknown [id number] 2.16.840.1.512838.3.579.2 .1259 1959 Unknown [id number] 2.16.840.1.809361.3.579.2 .196 1959 Unknown [id number] 2.16.840.1.706616.3.579.2 .196 1959 Unknown [id number] 2.16.840.1.501427.3.579.2 .196 1959 Unknown [id number] 2.16.840.1.715696.3.579.2 .196 1959 Unknown [id number] 2.16.840.1.437371.3.579.2 .196 1959 Unknown [id number] 2.16.840.1.945155.3.579.2 .196 1959 Unknown [id number] 2.16.840.1.032633.3.579.2 .196 1959 Unknown [id number] 2.16.840.1.412750.3.579.2 .196 1959 Unknown [id number] 2.16.840.1.549314.3.579.2 .196 1959 Unknown [id number] 2.16.840.1.197538.3.579.2 .196 1959 Unknown [id number] 2.16.840.1.808854.3.579.2 .196 Private Health Insurance [employer] [facility] PFFS G [id number] Unknown [id number] Unknown [id number] 2.16.840.1.460145.3.579.2 .593 Unknown MMO [employer] [id number] Social History Date Type Detail Facility Start: 12-22-2021 Heavy tobacco smoker (finding) [facility] [place] [facility] [place] Start: 06-05-2024 Female General [facility] [place] Start: 07-31-2023 End: 04-15-2024 Tobacco smoking status NHIS Smoker (finding) [facility] Start: 1960 Sex Assigned At Female [facility] Start: 1960 Sex assigned at Not on file [facility] Start: 04-15-2024 End: 06-26-2024 Sex Female (finding) [facility] Start: 06-05-2024 Tobacco smoking stat [facility] Smokes tobacco daily [facility] History of tobacco use Cigarette Smoker [facility] Start: 06-05-2024 Tobacco use and exposure Smokeless tobacco non-user [facility] Start: 06-05-2024 Alcoholic beverage intake Ex-drinker (finding) [facility] Start: 06-05-2024 History of Social function [facility] Functional Status Date Assessment Result Facility 12-22-2021 N/A [facility] [place] Clinical Notes 12-22-2021 to 06-05-2024 Geoff Walker, - 06/05/2024 2:30 PM NEEMA VincentT - 04/01/2024 3:00 PM EST Note Date & Type Note Facility 06-05-2024 History of Present illness Narrative Subjective Patient ID: HPI 64-year-old female referred for a right thyroid mass. This was found during a workup for something else. Ultrasound was done showing a 2.8 cm inferior based right thyroid mass. FNA was performed which came back as [place] III, Afirma testing was then done showing [...] in 1 year documented in this encounter [facility] 05-10-2024 Hospital Discharge instructions Ambulatory OrdersReferral to ENT Time Frame: 05/10/24, Location: None Selected [facility] Work Phone: 04-01-2024 History of Present illness Narrative Images from the original note were not included. Reason for Appointment: EMG Patient: Cristine Manley : 1960 EMG Computer: [employer] Referring Physician: Ofelia Arceo PA-C EMG: MANISH hadoop application developer: Daniel Dougherty RT(R) Office Location: [place] [...] of the test. 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 acute April 15, 2024 3:12pm Moderate persistent asthma, uncomplicated acute April 3:12pm Lumbar radiculopathy, chronic acute June 26, 2024 8:28am [facility] Work Phone: 1(994) 722-335112-02-2024 Evaluation note* Diagnosis Onset Date Resolution Status Admit Date Cigarette nicotine dependenc e with nicotine-induced disorder acute D 2023 3:14pm Encounter for immunization acute March [...] for lung cancer acute April 15 3:12pm halfway (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 of 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 acute April 15 3:12pm Moderate persistent asthma, uncomplicated acute April 15 3:12pm [facility] Work Phone: 1(767) 804-275811-15-2024 NotePatient Education Materials Name: Cristine Manley Current Date: 02/23/2024 07:10:10 [place] : 1960 The following sheet(s) are the [...] for continued care. 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 CC: Cornelius Garrison M.D.[facility] [id number] NoteChief Complaint consultation for epigastric pain HPI [...] Chronic obstructive pulmonary dise (more content not included)...[facility]Result Comment: Electronically Signed By: RAJINDER TAVERAS, Mihaela Trujillo\Date and Time Signed: 12/22/21 17:34 EDTEvaluation + Plan note No data available for this section [facility] [place] Evaluation note* Diagnosis Onset Date Resolution Status Lumbar radiculopathy, chronic acute [facility] Work Phone: Evaluation note* Diagnosis Onset Date Resolution Status Lumbar radiculopathy, chronic acute Headache acute Joint pain acute Tick bite acute [facility] Work Phone: Evaluation note* Diagnosis Onset Date Resolution Status Headache acute Joint pain acute Tick bite acute Chronic obstructive pulmonary disease, unspecified acute Lumbar radiculopathy, chronic acute [facility] Work Phone: Evaluation note* Diagnosis Onset Date Resolution Status Chronic obstructive pulmonary disease, unspecified acute Lumbar radiculopathy, chronic acute Bilateral knee pain acute COPD exacerbation acute Lumbar pain acute Lumbar radiculopathy, chronic acute Bilateral knee pain acute Primary osteoarthritis of both knees acute [facility] Work Phone: Evaluation note* Diagnosis Onset Date Resolution Status Bilateral knee pain acute COPD exacerbation acute Lumbar pain acute Lumbar radiculopathy, chronic acute Bilateral knee pain acute Primary osteoarthritis of both knees acute Menopause acute [facility] Work Phone: Evaluation note* Diagnosis Lumbosacral radiculopathy- Primary Thoracic or lumbosacral neuritis or radiculitis, unspecified Numbness and tingling Disturbance of skin sensation documented in this encounter [facility] HealthcareEvaluation note* Diagnosis Thyroid nodule (CMS/HCC)- Primary Nontoxic uninodular goiter documented in this encounter [facility] HealthcareHospital Discharge instructions No data available for this section General [facility] Discharge instructionsAmbulatory Orders* Referral to Orthopedics Time Frame: 06/26/24, Location: None Selected [facility] Work Phone: Progress note No data available for this section General Surgery [place] Reason for visit Narrative* Other Medical (Routine) - Closed Specialty Diagnoses / Procedures Referred By Mallorie t Referred To Contact Neurology Diagnoses Neuralgia and neuritis, unspecified Procedures ID NEEDLE EMG EA EXTREMTY W/PARASPINL AREA COMPLETE ID NERVE CONDUCTION STUDIES 9-10 STUDIES Ofelia Arceo PA-C [address] [place] [address] Phone: tel: fax: Cecil Fields MD [address] [place] [address] Phone: tel: fax: Referral ID Status Reason Start Date Expiration Date V isits Requested Visits Authorized [id number] Closed Perform Procedure 03/27/2024 09/23/2024 1 1 [facility] Healthcare Summary Purpose Family History No Family [...] Back & Knee Pain-HIGH RISK March 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 COPD April 15, [...] for lung cancer April 15, 2024 3:12pm halfway (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 of inhaled stero ids April [...] Start: January 19, 2024 Delvin Campbell , DO Attending Provider Active S tart: January [...] End: October 13, 2023 Brittanie Siu APRN [employer] ARTIST-C Attending Provider Act onesimo Start: October 13, [...] Provider Active S tart: January 24, 2024 [employer] Machine Tender Relationship Specialty Start Date End Date Cornelius Garrison MD [address] [place] [address] PCP - General Family Medicine 03/27/24 Ofelia Arceo MD [address] [address] Referring Physician Internal Medicine 03/27/24 [employer] Machine Tender Relationship Specialty Start Date End Date Cornelius Garrison MD [address] [place] [address] PCP - General Family Medicine 03/27/24 Ofelia Arceo MD [address] [address] Referring Physician Internal Medicine 03/27/24 [employer]ing Machine Tender Relationship Specialty Start Date End Date Cornelius Garrison MD [address] [place] [address] PCP - General Family Medicine 03/27/24 Ofelia Arceo MD [address] [place] [address] Referring Physician Internal Medicine 03/27/24 Geoff Walker, DO [address] [place] [address] Otolaryngology 06/05/24 [employer]ing Machine Tender Relationship Specialty Start Date End Date Cornelius Garrison MD [address] [place] [id number] PCP - General Family Medicine 03/27/24 Ofelia Arceo MD [address] [place] [address] Referring Physician Internal Medicine 03/27/24 Geoff Walker, DO [address] [place] [address] Otolaryngology 06/05/24 INFORMATION SOURCE (unrecogn ized section and content) DATE CREATED AUTHOR 02/21/2022 [facility] DATE CREATED AUTHOR AUTHOR'S ORGANIZ ATION 04/01/2022 [facility] DATE CREATED AUTHOR AUTHOR'S ORGANIZ ATION 05/12/2024 [facility] DATE CREATED AUTHOR AUTHOR'S ORGANIZ ATION 06/07/2024 [facility] DATE CREATED AUTHOR AUTHOR'S ORGANIZ ATION 07/19/2024 [facility] Goals (unrecognized section and content) Goals may [...] BE BASED ON THE PRIMARY CLINICAL RECORDS. [employer] [facility]. provides no warranty or guarantee of the accuracy or completeness of information in this document.
[2024-07-22 08:52] VITALS: BP 152/82; BP 152/85; PULSE 70; O2SAT 96
[2024-07-22] MEDS: LIDOCAINE HCL 2% 400 MG/20 ML MDV 16 ML INJ (08:55)
[2024-07-22] MEDS: BUPIVACAINE HCL 0.25% PF 25 MG/10 ML VIAL 4 ML INJ (08:55)
[2024-07-22] MEDS: METHYLPREDNISOLONE ACETATE 40 MG/ML VIAL 80 MG INJ (08:56)
--- NOTE | 2024-07-22 09:07 | P.ON_ITS ---
Date of procedure: 07/22/24 Pre-op diagnosis: Pain due to lumbar spondylosis without myelopathy Post-op diagnosis: same as pre-op Procedure: Procedure: Bilateral L4-5, L5-S1 radiofrequency ablation Medications: Bupivacaine 0.25% 6cc, lidocaine 2% 6cc, depomedrol 80mg The patient was seen and examined in the preoperative holding area.? The site was marked.? Written informed consent was obtained and placed on the chart.? The patient was brought to the medical procedure unit and placed in the prone position.? A timeout was completed verifying correct patient, procedure, positioning, and special requirements.? The skin overlying the target points, the designated medial branch, were prepped and draped in the usual sterile fashion.? The target point was achieved with a 20-gauge 15 cm with a 10 mm curved active tip radiofrequency cannula under direct fluoroscopic visualizati on.? The needle was inserted at level L4 on the right side. Needle tip position was confirmed with lateral fluoroscopic position.? Motor stimulation was carried out at 2 Hz up to 5 volts with the absence of extremity activity.? This was repeated at level L5, S1 on right side.?? Sensory stimulation was carried out.? Concordant pain was realized at the above- mentioned sites.? Then radiofrequency lesioning was carried out times 90 seconds at 80 degrees times 2 lesions at each level.? The radiofrequency probe was removed prior to cannula removal.? The above-mentioned injectate was placed in 1 mL increments.? The needle was removed. The same procedure, with the same steps, was then completed on the left side at the same levels. Insertion sites were covered.? The patient was taken to the postoperative recovery area and monitored for an appropriate length of time before being found suitable for discharge in the company of a responsible adult. Anesthesia: Local Surgeon: Duong Oreilly Pathology: none sent Condition: stable Disposition: no change
== END 2024-07-22 09:17 | disposition home or self-care (01) ==
LOC: SURGOUT 08:07
PROVIDERS: PCP Family Medicine; Visit Provider Anesthesiology
DX: M47.816 Spondylosis without myelopathy or radiculopathy, lumbar region (principal); M54.50 Low back pain, unspecified
CPT/HCPCS: 64635; 64636; J0665; J1010

== ENCOUNTER 2024-08-21 08:00 | Outpatient (OUT) | payer MEDICARE, OTHER, SELFPAY ==
--- OUTSIDE RECORDS SUMMARY | 2024-08-21 08:11 | XMS_ITS | CCD ---
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 Name Role Phone CORNELIUS GARRISON Primary Care Physician [phone] BLADIMIR PROVIDERCORNELIUS Referring Unavailab le NILL, Mihaela [...] Care Provider DO Alexandro Galvez Attending Provider [phone] Cornelius Garrison MD Primary Care Provider King NITIN, Ofelia Unavailable Cornelius Garrison MD Primary Care Provider Alexandro Galvez DO Attending Provider Cornelius Garrison MD Attending Provider [phone] Cornelius Garrison MD Primary Care Provider Cornelius [...] Referring Unavailable Cornelius Garrison MD Attending Provider Denilson TAVERAS, Duong Wagoner Attending Unavailable Bladimir TAVERAS, [facility] Unava ilable Denilson TAVERAS, Duong Wagoner Attending Unavailable Bladimir TAVERAS, [facility] Unava ilable Denilson TAVERAS, Duong Wagoner Attending Unavailable Bladimir TAVERAS, [facility] Unava ilable Bladimir TAVERAS, [facility] Unava ilable Denilson TAVERAS, Duong Wagoner Attending Unavailable Bladimir TAVERAS, [facility] Unava ilable Denilson TAVERAS, Duong Wagoner Attending Unavailable Bladimir TAVERAS, [facility] Unava ilable Bladimir TAVERAS, Cornelius Isabell Referring Unava ilable Adis PA-C, Ofelia Grace Attending Unavailab Tuan TAVERAS, [facility] Unava ilable Adis PA-C, Ofelia Grace Attending Unavailab Tuan TAVERAS, [facility] Unava ilable Adis PA-C, Ofelia Grace Attending Unavailab Tuan TAVERAS, [facility] Unava ilable Alexey Morgan MD Admitting Unavailable Equinunk PA-C, Sravani Benson Attending U elizabeht Garrison MD, [facility] Unava ilable Adis PA-C, Ofelia Grace Admitting Unavailab le Adis PA-C, Ofelia Grace Attending Unavailab Tuan TAVERAS, [facility] Unava ilable Adis PA-C, Ofelia Grace Attending Unavailab Traci TAVERAS, Duong Wagoner Attending Unavailable Bladimir TAVERAS, [facility] Unava ilable Allergies Allergy Classification Reported Allergen(s) Allergy Type Date of Onset Reaction(s) Facility (3 sources) Acetaminophen / oxyCODONE; Translations: [acetaminophen-oxy codone] Drug Allergy Nausea (finding) [facility] (6 sources) Alendronate; Translations: [alendronate] Drug Allergy 03-29-20 Muscle pain (finding) [facility] (14 sources) Clarithromycin; Translations: [clarithromycin] Drug Allergy 07-31-19 Unknown (qualifier value) [facility] (15 sources) levoFLOXacin; Translations: [levofloxacin] Drug Allergy 07-31-19 Eruption of skin (disorder) [facility] (4 sources) Sulfonamides (Antibiotic); Translations: [sulfa drugs] Drug allergy Unknown (qualifier value) General [facility] (1 source) Acetaminophen / oxyCODONE Drug Allergy 03-25-20 16 [facility] (1 source) Alendronate Drug Allergy 03-18-20 16 [facility] (1 source) Clarithromycin Drug Allergy 03-25-20 16 [facility] (1 source) levoFLOXacin Drug Allergy 03-25-20 16 [facility] (1 source) Quinolones (Antibiotic) Drug allergy (disorder) 03-25-20 16 [facility] (1 source) Sulfonamides (Antibiotic) Drug allergy (disorder) 05-01-19 14 [facility] (1 source) Acetaminophen Drug Allergy 07-31-19 24 [facility] (11 sources) Alendronate Drug Allergy 07-31-19 24 [facility] (11 sources) oxyCODONE Drug Allergy 07-31-19 24 [facility] (11 sources) Sulfonamides (Antibiotic) Allergy to substance 07-31-19 Comment:as a young child, pt. cannot recall reaction [facility] (11 sources) Biaxin XL *MACROLIDES* Allergy to substance 07-28-19 24 [facility] (3 sources) Acetaminophen / oxyCODONE Drug Allergy 06-05-19 25 Nausea Only [facility] (3 sources) Clarithromycin Allergy to substance 03-29-20 24 [facility] (3 sources) Lactobacillus acidophilus Drug Allergy 06-05-19 25 [facility] (3 sources) Quinolones (Antibiotic) Drug Intolerance 03-11-20 10 Rash [facility] (3 sources) Sulfonamides (Antibiotic) Drug Intolerance 03-11-20 10 [facility] (1 source) Ciprofloxacin; Translations: [Cipro] Drug Allergy [facility] Rep[facility] (1 source) symbalta; Translations: [symbalta] Propensity to adverse reactions to drug (disorder) [facility] Medications Current Medications Medication Drug [...] 1 tablet by mouth at bedtime HYDROcodone-acetaminophen ([place]) 5-325 MG tablet Take 1 tablet by [...] Rinse after use Start: 03-29-2024 End: 04-15-2024 Czovkidfqmm-Tzyyuoaeb-Tvjawq er (Trelegy Ellipta) 200-62.5-25 mcg blister with device Discontinued 1 INH INHALATION Daily March 29, 2024 10:38am April 15, 2024 4:41pm Rinse after use Start: 03-29-2024 End: 04-15-2024 Zkwjtdjqmsq-Odxrexbzk-Ubfwcm er (Trelegy Ellipta) 200-62.5-25 mcg blister with device Discontinued 1 INH INHALATION Daily 60 March 29, 2024 9:38am April 15, 2024 3:41pm Rinse after use Start: 03-11-2024 End: 03-29-2024 Wocethhrtbc-Bfrcmutcb-Ynqjcg er (Trelegy Ellipta) 200-62.5-25 mcg blister with device Discontinued 1 INH INHALATION Daily 180 90 March 11, 2024 1:00am March 29, 2024 10:38am Rinse after use Start: 03-11-2024 End: 03-29-2024 Xuqejwyshil-Dlizxhthv-Asbmlx er (Trelegy Ellipta) 200-62.5-25 mcg blister with [...] 0.5 ML IM Once 0.March 11, 2024 1:00am March 29, 2024 9:52am [...] March 29, 2024 9:04am 60 actuat tiotropium 0.35407 mg/actuat inhalation spray (12 sources) Anticholinergic Start: 02-08-2024 End: 03-11-2024 take 1 puff(s) by inhalation once daily in the morning Tiotropium [place] (Spiriva Respimat) 1.25 mcg/actuation mist Discontinued 2 [...] 01-24-2024 Chronic Other aftercare (1 source) Other skilled nursing (current) drug therapy; Translations: [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 EXAMINATION: Contiguous axial images were obtained through the lumbar spine following the intrathecal administration of contrast as previously described. This is supplemented with reformatted coronal and sagittal images and compared to a previous examination dated 02/23/2024. FINDINGS: Vertebral body heights and alignment are maintained. There is no acute fracture or dislocation. There is minimal endplate bone spurring throughout the lumbar spine. There is loss of disc space height with sclerosis and vacuum disc effect at T11-T12. There is no suspicious osseous lesion. The conus terminates at L1. There is no abnormality of the conus or the cauda equina. The imaged right kidney demonstrates scarring in the midpole. There are probable parapelvic cysts in the left kidney. The imaged liver, adrenals, pancreas and spleen are satisfactory in appearance. There are calcifications in the aorta. T11-T12: There is moderate facet arthropathy and ligamentous hypertrophy. There is mild left paracentral disc protrusion. There is constriction of the left lateral recess. The central canal remains patent. There is moderate left neural foraminal narrowing. 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 This measures approximately 5.6 cm in greatest dimension at and has not significantly changed. There is facet arthropathy. There is disc and spur effacing the thecal sac. The central canal and neural foramina remain patent. L1-L2: There is moderate facet arthropathy and ligamentous hypertrophy. There is constriction of the lateral recesses. There is mild broad-based disc bulge. There is mild bilateral neural foraminal narrowing. L2-L3: There is moderate facet arthropathy and ligamentous hypertrophy. There is mild disc and spur extend into the neural foramina. There is mild left neural foraminal narrowing. L3-L4: There is moderate facet arthropathy and ligamentous hypertrophy. There is constriction of the lateral recesses. There is moderate to severe right neural foraminal narrowing and minimal left neural foraminal narrowing. L4-L5: There is marked facet arthropathy and moderate ligamentous atrophy. There is constriction of the lateral recesses. There is moderate bilateral neural foraminal narrowing, greater on the right. L5-S1: There is mild facet arthropathy and ligamentous hypertrophy. There is broad-based disc bulge extending into the neural foramina. There is mild to moderate bilateral neural foraminal narrowing, greater on the left. IMPRESSION: 1. 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 This has not significantly changed. 2. Degenerative changes resulting in varying degrees of neural foraminal narrowing as detailed above. Radiation Dose Estimate: CTDI(mGy):0.144589 / / / kVp:120.859153 / mAs:0.868234 / / / DLP(mGy-cm):3.183054Idze Part: CTDI(mGy):21.855940 / / / kVp:120.951800 / mAs:230.714492 / / / DLP(mGy-cm):616.582990Wefg Part: Final Dictated by: Alexey Morgan MD Dictated DT/TM: 07.30.2024 12:27 pm Signed by: Alexey Morgan MD Signed (Electronic Signature): 07.30.2024 12:38 pm (If Report Is Signed, Electronically Signed in Other Vendor System) Normal [facility] PTon 07-30-2024 INR Coag (PPP) [Relative time] 0.9 {INR} Normal <=3.5 [facility] Comment on above: Result Comment: INR has no normal range. INR Therapeutic range is: 2.0-3.0 (AF, CVA, TIAs, DVT prophylaxis, acute DVT) 2.5-3.5 ([facility] heart valves, recurrent thrombosis/emboli) Performed By: #### P TINR #### [address] [address] PT Coag (PPP) [Time] 10.4 s Normal 10.2-12.9 [facility] Comment on above: Performed By: #### P TINR #### [id number] [place] [address] PTTon 07-30-2024 aPTT Coag (Bld) [Time] 30.8 s Normal 25.1-36.5 [facility] Comment on above: Performed By: #### P TT #### [address] [address] Platelet Counton 07-30-2024 Platelet 313 x10*3/mcL Normal 150-450 [facility] Comment on above: Performed By: #### P TINR #### [address] [address] XR Myelography Lumbosacral S pineon 07-30-2024 XR Myelography Lumbosacral Spine CLINICAL HISTORY: Radiculopathy. EXAMINATION: A fluoroscopically guided lumbar myelogram was performed. FLUOROSCOPY TIME: 0.3 minutes DOSE: 12.3 mGy Reference air kerma (Ka,r) TECHNIQUE AND [...] of the lumbar spine was obtained. The patient was sent immediately to CT. Please see CT report for further diagnostic details. IMPRESSION: Successful and uneventful fluoroscopically guided lumbar myelogram. Final Dictated by: Alexey Morgan MD Dictated DT/TM: 07/30/2024 12:27 pm Signed by: Alexey Morgan MD Signed (Electronic Signature): 07/30/2024 12:27 pm (If Report Is Signed, Electronically Signed in Other Vendor System) [facility] Neurosurgery Office/Clinic Aliya powell 06-06-2024 Neurosurgery Office/Clinic Note Chief Complaint back follow up History of Present Illness The patient is a pleasant 64-year-old right-handed female with history of chronic nicotine use, asthma and recently diagnosed COPD for which she is planned to see a criminal legal assistant in the near future. She also has [...] therapy without benefit. She is established with [facility] undergoing left L4-5 CARLOS and [...] though does not resolve. Oral narcotics including Genoa which makes pain tolerable though does not resolve. Topical agents including lidocaine patches and Bengay with limited benefit. Pain management injection modalities years ago with temporary benefit lasting only a few days. Physical therapy years ago without significant benefit. Chiropractic manipulation x 1 visit without benefit therefore patient never returned. Activity modification [1] Pain management injection modalities through [facility]. Initial injection targeted left L4-5 which she [...] No si (more content not included)... Normal [facility] Provider Letteron 06-06-2024 Provider Letter (Inserted Image. Gela ble to display) Cornelius Garrison MD [facility] [facility], [place] [address] Re: Cristine Manley Date of Visit: 06/06/2024 Dear Cornelius Garrison MD, This patient was recently seen in the neurosurgical office. Please see attached note for further details. Let me know if you have any questions or concerns. Sincerely, DEMARCUS Gan Providers: The following document(s) were included in the letter: June 06, 2024 09:36:40 EST - (06/06/2024) Neurosurgery Office Visit Note Normal [facility] Dominick 04-22-2024 L -------- -------- Specimen: [id number] Received: 04/24/24 Status: OMAR Freddy Num: [id number] Spec Type: Cytology Subm Dr: Cornelius Garrison MD Tissues: A FNA SLIDES NOPATH (INF RT THY) Procedures: Cyto Int and Re, PAPSTN/5 -------- Age/ Patient Sex Location Account Attending Physician -------- Cristine Manley 64/F [place] [id number] Cornelius Garrison MD -------- SPEC NUM: [id number] RECD: 04/24/24 STATUS: OMAR HAYES NUM: [id number] TORI: 04/22/24- SUBM DR: Cornelius Garrison MD ENTERED: 04/24/[address] [facility] [address]: Les Lee MD SPEC TYPE: Cytology DEPT: KEN NCYT ENTERED BY: [id number] RECV BY: [id number] ORDERED: Cyto Int and Re, PAPSTN/5 ORDERED: Cyto Int and Re, PAPSTN/5 Supplemental Report Addendum 1 Entered: 05/10/24-2492 Supplemental for findings of [facility] 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 V600E c. 1799T>A: Negative -RET/PTC1: Not detected -RET/PTC3: Not detected -MTC: Negative -Parathyroid: Negative TERT PROMOTER REGION: -Tests (2) not Performed (TNP) -------- Specimen: [id number] Received: 04/24/24 Status: OMAR Freddy Num: [id number] Spec Type: Cytology Subm Dr: Cornelius Garrison MD Tissues: A FNA SLIDES NOPATH (INF RT THY) Procedures: Cyto Int and Re, PAPSTN/5 -------- Patient: Cristine Manley [id number] (Continued) -------- Specimen: [id number] Received: 04/24/24 (Continued) Supplemental Report (Continued) Signed (signature on file) Gail Sheth MD 04/24/24 1439 -------- Specimen: [id number] Received: 04/24/24 Status: BASIAPalma Hayes Num: [id number] Spec Type: Cytology Subm Dr: Cornelius Garrison MD Tissues: A FNA SLIDES NOPATH (INF RT THY) Procedures: Cyto Int and Re, PAPSTN/5 -------- Patient: Cristine Manley [id number] (Continued) -------- Specimen: [id number] Received: 04/24/2444 (Continued) Supplemental Report (Continued) Addendum Signed (signature on file) Pedro-Diogenes Sheth MD 05/10/24 1132 -------- Pathological Diagnosis Right thyroid nodule, inferior, FNA cytology -Adequate follicular groups in the ThinPrep smear, appropriate for assessment, consisting of small to occasionally slightly larger and reactive follicular cells, suggesting dimorphic population and the category 3 [place] system, atypia of the undetermined significance, otherwise [...] vial stored at -20 for microscopic examination. (NC/nm) Microscopic Description Microscopic examinations are performed supporting the above interpretation CPT Codes 24253 -------- -------- Specimen: [id number] Received: 04/24/24 Status: OMAR Hayes Num: [id number] Spec Type: Cytology Subm Dr: Cornelius Garrison MD Tissues: A FNA SLIDES NOPATH (INF RT THY) Procedures: Cyto Int and Re, PAPSTN/5 -------- Patient: Cristine Manley [id number] (Continued) -------- Signed (signature on file) Gail Sheth MD 04/24/24 3705 Normal [facility] EMG 2 Extremitieson 04-01-20 EMG/NCS BLE Right L5/S1 radic [place] S1/2 radic [facility] NVC 9-10 Nerveson 04-01-2024 EMG/NCS BLE Right L5/S1 radic Francisco S1/2 radic [facility] Provider Letteron 03-26-2024 Provider Letter (Inserted Image. Gela ble to display) Cornelius Garrison MD [facility] [facility], [place] [address] Re: Cristine Manley Date of Visit: 03/25/2024 Dear Cornelius Garrison MD, This patient was recently seen in the neurosurgical office. Please see attached note for further details. Let me know if you have any questions or concerns. Sincerely, DEMARCUS Gan Providers: The following document(s) were included in the letter: March 25, 2024 17:40:13 EST - (03/25/2024) Neurosurgery Office Visit Note Normal [facility] Neurosurgery Office/Clinic N oteon 03-25-2024 Neurosurgery Office/Clinic Note Chief Complaint CT thoracic, lumbar, XR lumbar, hips and neck review History of Present Illness The patient is a pleasant 64-year-old right-handed female with history of chronic nicotine use, asthma and recently diagnosed COPD for which she is planned to see a criminal legal assistant in the near future. She also has [...] though does not resolve. Oral narcotics including [place] which makes pain tolerable though does not [...] increases slightl (more content not included)... Normal [facility] Basophils Auto (Bld) [#/Vol] on 03-21-2024 Basophils (Bld) [#/Vol] Automated basophil count 0.0-0.1 [facility] Basophils/100 WBC Auto (Bld) on 03-21-2024 Basophils/100 WBC (Bld) Automated basophil % 0.2-2.0 [facility] Eosinophils/100 WBC Auto (Bl d)on 03-21-2024 Eosinophils/100 WBC (Bld) Automated eosinophil % 0.9-7.0 [facility] Erythrocyte distribution wid th Auto (RBC) [Ratio]on 03-21-2024 Erythrocyte distribution width (RBC) [Ratio] Erythrocyte distribution width [Ratio] by Automated count 11.0-15.0 [facility] Hematocrit Auto (Bld) [Volum e fraction]on 03-21-2024 Hematocrit (Bld) [Volume fraction] Hematocrit [Volume Fraction] of Blood by Automated count 36.0-48.0 [facility] Hemoglobin [Mass/volume] in Bloodon 03-21-2024 Hemoglobin (Bld) [Mass/Vol] Hemoglobin [Mass/volume] in Blood 12.0-16.0 [facility] IgE [Units/volume] in Serum or Plasmaon 03-21-2024 IgE Qn IgE [Units/volume] i n Serum or Plasma 6-495 [facility] Comment on above: Performed at: [address] [id number] Director: Levi Pedroza MD, Phone: [phone] Laboratory - Hematology and Cell countson 03-21-2024 Immature granulocytes/100 WBC (Bld) 0.1 % 0.0-0.5 [facility] Leukocytes [#/volume] correc shant for nucleated erythrocytes in Blood by Automated counon 03-21-2024 WBC corrected for nucl RBC Auto (Bld) [#/Vol] Leukocytes [#/volume] corrected for nucleated erythrocytes in Blood by Automated coun 4.0-11.0 [facility] Lymphocytes Auto (Bld) [#/Vo l]on 03-21-2024 Lymphocytes (Bld) [#/Vol] Lymphocytes [#/volume] in Blood by Automated count 1.2-3.8 [facility] Lymphocytes/100 WBC Auto (Bl d)on 03-21-2024 Lymphocytes/100 WBC (Bld) Lymphocytes/100 leukocytes in Blood by Automated count Low 20.5-60.0 [facility] MCH Auto (RBC) [Entitic mass ]on 03-21-2024 MCH (RBC) [Entitic mass] MCH [Entitic mass] by Automated count 26.7-34.0 [facility] MCHC Auto (RBC) [Mass/Vol]on 03-21-2024 MCHC (RBC) [Mass/Vol] MCHC [Mass/volume] by Automated count 29.9-35.2 [facility] MCV Auto (RBC) [Entitic vol] on 03-21-2024 MCV (RBC) [Entitic vol] MCV [Entitic volume] by Automated count 81.0-99.0 [facility] Monocytes Auto (Bld) [#/Vol] on 03-21-2024 Monocytes (Bld) [#/Vol] Automated blood monocyte count 0.3-0.8 [facility] Monocytes/100 WBC Auto (Bld) on 03-21-2024 Monocytes/100 WBC (Bld) Automated monocyte % 1.7-12.0 [facility] Neutrophils Auto (Bld) [#/Vo l]on 03-21-2024 Neutrophils (Bld) [#/Vol] Neutrophils [#/volume] in Blood by Automated count High 1.4-6.5 [facility] Neutrophils/100 WBC Auto (Bl d)on 03-21-2024 Neutrophils/100 WBC (Bld) Automated neutrophil % 43.0-75.0 [facility] No Panel Informationon 03-21 Eosinophils # (Auto) 0.1 10 3/uL 0.0-0.7 [facility] Immature Granulocyte # (Auto) 0.01 10 3/uL 0.00-0.03 [facility] Platelet mean volume Auto (B ld) [Entitic vol]on 03-21-2024 Platelet mean volume (Bld) [Entitic vol] Platelet mean volume [Entitic volume] in Blood by Automated count 9.5-13.5 [facility] Platelets Auto (Bld) [#/Vol] on 03-21-2024 Platelets (Bld) [#/Vol] Platelets [#/volume] in Blood by Automated count 150-450 [facility] RBC Auto (Bld) [#/Vol]on RBC (Bld) [#/Vol] Erythrocytes [#/volu me] in Blood by Automated count 4.20-5.40 [facility] Provider Letteron 02-29-2024 Provider Letter (Inserted Image. Gela ble to display) Cornelius Whittaker [address], [place] [address] Re: Cristine Manley Date of Visit: 02/23/2024 Dear Cornelius Garrison MD, Please see attached results on this mutual patient you have with [facility] Result Name Current Result CT Spine Thoracic/Lumbar Myelogram w/Con 02/23/2024 Let me know if you have any questions or concerns. Sincerely, Jaclyn Bliss [facility] PIPE JEEPER Clinical Lead Health Emissions Testing And Repair Technician Quoc C Providers: Normal [facility] CT Spine Thoracic/Lumbar Mye logram w/Conon [...] Electronically Signed in Other Vendor System) Normal [facility] PTon 02-23-2024 INR Coag (PPP) [Relative time] 1.0 {INR} Normal <=3.5 [facility] Comment on above: Result Comment: INR has no normal range. INR Therapeutic range is: 2.0-3.0 (AF, CVA, TIAs, DVT prophylaxis, acute DVT) 2.5-3.5 ([facility] heart valves, recurrent thrombosis/emboli) Performed By: #### P TINR #### [id number] PT Coag (PPP) [Time] 10.3 s Normal 9.2-12.0 [facility] Comment on above: Performed By: #### P TINR #### [address] [address] PTTon 02-23-2024 aPTT Coag (Bld) [Time] 24.8 s Normal 19.5-28.2 [facility] Comment on above: Performed By: #### P TT #### [address] [address] Platelet Counton 02-23-2024 Platelet 300 x10*3/mcL Normal 150-450 [facility] Comment on above: Performed By: #### P LTS #### [address] [address] XR Hip 2-3 Views Lefton 02-08 XR [...] Electronically Signed in Other Vendor System) Normal [facility] XR Myelography Spine 2 or Mo [...] Electronically Signed in Other Vendor System) Normal [facility] XR Spine Cervical 4 or 5 [...] Signed, Electronically Signed in Other Vendor System) [facility] XR Spine Lumbosacral Bending 2-3 Viewson [...] Electronically Signed in Other Vendor System) Normal [facility] Neurosurgery Office/Clinic N ericon 02-13-2024 Neurosurgery Office/Clinic Note Chief Complaint Back lumbar pain radiculopathy consult History of Present Illness The patient is a pleasant 64-year-old right-handed female with history of chronic nicotine use, asthma and recently diagnosed COPD for which she is planned to see a criminal legal assistant in the near future. 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 Oral narcotics including [place] which makes pain tolerable though does not [...] Newly diagnosed COPD, scheduled to see a criminal legal assistant in the near future Chronic nicotine use [...] marijuana use. 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 She denies any Worker's Comp. related claims regarding today's visit FAMILY HISTORY: Lung cancer: Father Diabetes mellitus: Mother Hypertension: Mother Review of Systems Constitutional: [No fevers, chills, sweats] Eye: [No recent visual problems] ENMT: [ (more content not included)... Normal [facility] Provider Letteron 02-13-2024 Provider Letter (Inserted Image. Gela ble to display) Cornelius Garrison MD [address] [place] [address], [place] [address] Re: Cristine Manley Date of Visit: 02/13/2024 Dear Cornelius Garrison MD, This patient was recently seen in the neurosurgical office. Please see attached note for further details. Let me know if you have any questions or concerns. Sincerely, DEMARCUS Gan Providers: The following document(s) were included in the letter: February 13, 2024 09:39:53 EST - (02/13/2024) Neurosurgery Office Visit Note Normal [facility] XR knee BI 3V - NOT FOR ER U Sanam 01-24-2024 XR knee BI 3V - NOT FOR ER USE [facility] [address] [place] [address] XRay Report Signed Patient: Cristine Manley MR#: [id number] 53 : 1960 Acct:[id number] Age/Sex: 64 / F ADM Date: 01/24/24 [place] [facility] [place]: Type: [facility] Attending Dr: Alexandro Galvez DO Copies [...] Sunday Graham M.D.01/24/2024 3:45 PM Dictation Location: [place] [address] Transcribed By: [facility] 01/24/24 1545 Dictated By: Sunday Graham II, MD 01/24/24 154 Signed By: 01/24/24 1545 Normal [facility] Basophils Auto (Bld) [#/Vol] on 01-19-2024 Basophils (Bld) [#/Vol] 0.0 10 3/uL 0.0-0.1 [facility] Basophils (Bld) [#/Vol] Automated basophil count 0.0-0.1 [facility] Basophils/100 WBC Auto (Bld) on 01-19-2024 Basophils/100 WBC (Bld) 0.2 % 0.2-2.0 [facility] Basophils/100 WBC (Bld) Automated basophil % 0.2-2.0 [facility] Eosinophils/100 WBC Auto (Bl d)on 01-19-2024 Eosinophils/100 WBC (Bld) 4.3 % 0.9-7.0 [facility] Eosinophils/100 WBC (Bld) Automated eosinophil % 0.9-7.0 [facility] Erythrocyte distribution wid th Auto (RBC) [Ratio]on 01-19-2024 Erythrocyte distribution width (RBC) [Ratio] 13.1 % 11.0-15.0 [facility] Erythrocyte distribution width (RBC) [Ratio] Erythrocyte distribution width [Ratio] by Automated count .0-15.0 [facility] Estimated glomerular filtrat ion rate (GFR) non- Americanon 01-19-2024 GFR/1.73 sq M.predicted among non-blacks MDRD (S/P/Bld) [Vol rate/Area] mL/min/{1.73_m2} >=60 mL/min/1.73 m 2 [facility] GFR/1.73 sq M.predicted among non-blacks MDRD (S/P/Bld) [Vol rate/Area] Estimated glomerular filtration rate (GFR) non- >=60 mL/min/1.73 m 2 [facility] Fibrin D-dimer [Presence] in Platelet poor plasma by Latex agglutinationon 01-19-2024 Fibrin D-dimer LA Ql (PPP) 0.43 mg/L FEU <=0.59 [facility] Comment on above: Increases in D-Dimer [...] Platelet poor plasma by Latex agglutination <=0.59 [facility] Comment on above: Increases in D-Dimer [...] Hematocrit (Bld) [Volume fraction] 39.5 % 36.0-48.0 [facility] Hematocrit (Bld) [Volume fraction] Hematocrit [Volume Fraction] of Blood by Automated count 36.0-48.0 [facility] Hemoglobin [Mass/volume] in Bloodon 01-19-2024 Hemoglobin (Bld) [Mass/Vol] 12.8 g/dL 12.0-16.0 [facility] Hemoglobin (Bld) [Mass/Vol] Hemoglobin [Mass/volume] in Blood 12.0-16.0 [facility] Laboratory - Chemistry and C hemistry - challengeon 01-19-2024 Calcium [Mass/Vol] 9.0 mg/dL 8.5-10.1 [facility] Chloride [Moles/Vol] 105 mmol/L 98-107 [facility] CO2 [Moles/Vol] 28.7 mmol/L 21.0-32.0 [facility] Creatinine [Mass/Vol] 0.92 mg/dL 0.55-1.02 [facility] GFR/1.73 sq M.predicted MDRD (S/P/Bld) [Vol rate/Area] mL/min/{1.73_m2} >=60 mL/min/1.73 m 2 [facility] Glucose [Mass/Vol] 78 mg/dL 74-106 [facility] Potassium [Moles/Vol] 4.0 mmol/L 3.5-5.1 [facility] Sodium [Moles/Vol] 138 mmol/L 136-145 [facility] Urea nitrogen [Mass/Vol] 27.0 mg/dL High 7.0-18.0 [facility] Urea nitrogen/Creatinin e [Mass ratio] 29.3 mg/mg [facility] Laboratory - Hematology and Cell countson 01-19-2024 Immature granulocytes/100 WBC (Bld) 0.3 % 0.0-0.5 [facility] - Microbiology an d Antimicrobial susceptibilityon 01-19-2024 SARS-CoV-2 (COVID-19) RNA JOSELUIS+probe Ql (Unsp spec) Negative NEGATIVE [facility] Comment on above: This test has [...] (Bld) [#/Vol] 12.6 10 3/uL High 4.0-11.0 [facility] WBC corrected for nucl RBC Auto (Bld) [#/Vol] Leukocytes [#/volume] corrected for nucleated erythrocytes in Blood by Automated coun High 4.0-11.0 [facility] Lymphocytes Auto (Bld) [#/Vo l]on 01-19-2024 Lymphocytes (Bld) [#/Vol] 4.4 10 3/uL High 1.2-3.8 [facility] Lymphocytes (Bld) [#/Vol] Lymphocytes [#/volume] in Blood by Automated count High 1.2-3.8 [facility] Lymphocytes/100 WBC Auto (Bl d)on 01-19-2024 Lymphocytes/100 WBC (Bld) 35.0 % 20.5-60.0 [facility] Lymphocytes/100 WBC (Bld) Lymphocytes/100 leukocytes in Blood by Automated count 20.5-60.0 [facility] MCH Auto (RBC) [Entitic mass ]on 01-19-2024 MCH (RBC) [Entitic mass] 29.4 pg 26.7-34.0 [facility] MCH (RBC) [Entitic mass] MCH [Entitic mass] by Automated count 26.7-34.0 [facility] MCHC Auto (RBC) [Mass/Vol]on 01-19-2024 MCHC (RBC) [Mass/Vol] 32.4 g/dL 29.9-35.2 [facility] MCHC (RBC) [Mass/Vol] MCHC [Mass/volume] by Automated count 29.9-35.2 [facility] MCV Auto (RBC) [Entitic vol] on 01-19-2024 MCV (RBC) [Entitic vol] 90.6 fL 81.0-99.0 [facility] MCV (RBC) [Entitic vol] MCV [Entitic volume] by Automated count 81.0-99.0 [facility] Monocytes Auto (Bld) [#/Vol] on 01-19-2024 Monocytes (Bld) [#/Vol] 1.2 10 3/uL High 0.3-0.8 [facility] Monocytes (Bld) [#/Vol] Automated blood monocyte count High 0.3-0.8 [facility] Monocytes/100 WBC Auto (Bld) on 01-19-2024 Monocytes/100 WBC (Bld) 9.5 % 1.7-12.0 [facility] Monocytes/100 WBC (Bld) Automated monocyte % 1.7-12.0 [facility] Neutrophils Auto (Bld) [#/Vo l]on 01-19-2024 Neutrophils (Bld) [#/Vol] 6.4 10 3/uL 1.4-6.5 [facility] Neutrophils (Bld) [#/Vol] Neutrophils [#/volume] in Blood by Automated count 1.4-6.5 [facility] Neutrophils/100 WBC Auto (Bl d)on 01-19-2024 Neutrophils/100 WBC (Bld) 50.7 % 43.0-75.0 [facility] Neutrophils/100 WBC (Bld) Automated neutrophil % 43.0-75.0 [facility] No Panel Informationon 01-18 Bedside Influenza Type A Antigen Negative [facility] Comment on above: Negative for Flu A p rotein antigen. Infection due to Flu Acannot be ruled out. Flu A antigen in the sample may bebelow the detection limit of the test. Bedside Influenza Type B Antigen Negative [facility] Comment on above: Negative for Flu B p rotein antigen. Infection due to Flu Bcannot be ruled out. Flu B antigen in the sample may bebelow the detection limit of the test. Eosinophils # (Auto) 0.5 10 3/uL 0.0-0.7 [facility] Immature Granulocyte # (Auto) 0.04 10 3/uL High 0.00-0.03 [facility] Troponin I High Sensitivity 5.8 pg/mL 4.0-51.3 [facility] Comment on above: CUT-OFF POINTS HAVE [...] (Bld) [Entitic vol] 9.3 fL Low 9.5-13.5 [facility] Platelet mean volume (Bld) [Entitic vol] Platelet mean volume [Entitic volume] in Blood by Automated count Low 9.5-13.5 [facility] Platelets Auto (Bld) [#/Vol] on 01-19-2024 Platelets (Bld) [#/Vol] 304 10 3/uL 150-450 [facility] Platelets (Bld) [#/Vol] Platelets [#/volume] in Blood by Automated count 150-450 [facility] RBC Auto (Bld) [#/Vol]on RBC (Bld) [#/Vol] 4.36 10 6/uL 4.20-5.40 [facility] RBC (Bld) [#/Vol] Erythrocytes [#/volu me] in Blood by Automated count 4.20-5.40 [facility] Serum or plasma anion gap de terminationon 01-19-2024 Anion gap [Moles/Vol] 8.3 mmol/L [facility] Anion gap [Moles/Vol] Serum or plasma anion gap determination [facility] Borrelia burgdorferi IgG+IgM Ab [Presence] in Serum by Immunoassayon 10-13-2023 B. burgdorferi IgG+IgM IA Ql (S) Negative Negative [facility] Comment on above: Lyme antibodies not detected. Reflex testing is notindicated.No laboratory evidence of infection with B. burgdorferi(Lyme disease). Negative results may occur in patientsrecently infected (less than or equal to 14 days) with B.burgdorferi. If recent infection is suspected, repeattesting on a new sample collected in 7 to 14 days isrecommended.Performed at: [facility] [id number] Director: Jeovany Bazan PhD, Phone: [phone] General Surgery Office/Clini c Noteon 02-21-2022 General [...] Primary malignant neoplasm of lung: Father. Normal [facility] Comment on above: Result Comment: Elec [...] Tobacco user Very low density lipoprotinemia Normal [facility] Reminderson 02-01-2022 Reminders - From: Sushma Shell LPN To: N - Clinical; Sent: 02/01/2022 16:18:52 EDT Show up: 04/12/2022 07:00:00 EST Subject: EGD recall Due Date/Time: 05/04/2022 07:00:00 EST Reminder/Recall Patient is due to repeat EGD 05/04/2022 due to gastric ulcer. Normal [facility] Outside Colonoscopyon 2021 Outside Colonoscopy [id number]#[id number]:[address] [facility] Pathology Noteon 01-14-2022 Pathology Note [id number]#1.00CD:[address] [facility] Reminderson 01-14-2022 Reminders - From: Sushma Shell LPN To: [facility] - Clinical; Sent: 01/14/2022 08:07:35 EDT Show up: 12/14/2031 07:00:00 EDT Subject: colonoscopy recall Due Date/Time: 01/13/2032 07:00:00 EDT Reminder/Recall Patient is due for screening colonoscopy 01/13/2032. Normal [facility] Pre-Certification Formon Pre-Certification Form [id number]#1.00CD:[address] [facility] Lab Reportson 01-11-2022 Lab Reports [id number]#1.00CD:[address] [facility] Covid-19 PCR ([facility])on SARS-CoV-2 (COVID-19) RNA JOSELUIS+probe Ql (Unsp spec) Not detected Normal NOT DETECTED [facility] Comment on above: Result Comment: This test is not yet approved or cleared by the [place] FDA. When there are no FDA-approved or cleared tests available, and other criteria are met, FDA can make tests available under an emergency access mechanism called an Emergency Use Authorization (EUA). The EUA for this test is supported by the [employer] Developer of Health and Human Service's (HHS's) declaration [...] consistent with SARS-CoV-2. Performed By: #### C [facility] #### [facility] [address] [place] [address] [address] Pablo Sheth Physician Orderon 12-23-2021 Physician Order [id number]:[address] [facility] Ambulatory Visit Summaryon 0 12-22-2021 Ambulatory [...] Tobacco user Very low density lipoprotinemia Normal [facility] CBC AUTO DIFFon 12-17-2021 BASO # 0.1 103/ul Normal 0.0-0.1 [facility] Comment on above: Performed By: #### D ATCBC #### [facility] [address] [place] [address] Dr. Pablo Sheth Basophils/100 WBC (Bld) 0.4 % Normal 0.2-2.0 [facility] Comment on above: Performed By: #### D ATCBC #### [facility] [address] [place] [address] [address] Pablo Sheth EO # 0.3 103/ul Normal 0.0-0.7 [facility] Comment on above: Performed By: #### D ATCBC #### [facility] [address] [place] [address] [address] Pablo Sheth Eosinophils/100 WBC (Bld) 2.4 % Normal 0.9-7.0 [facility] Comment on above: Performed By: #### D ATCBC #### [facility] [address] [place] [address] [address] Pablo Sheth Erythrocyte distribution width (RBC) [Ratio] 13.2 % Normal 11.0-15.0 [facility] Comment on above: Performed By: #### D ATCBC #### [facility] [address] [place] [address] [address] Pablo Sheth Hematocrit (Bld) [Volume fraction] 42.6 % Normal 36.0-48.0 [facility] Comment on above: Performed By: #### D ATCBC #### [facility] [address] [place] [address] [address] Pablo Sheth Hemoglobin (Bld) [Mass/Vol] 13.7 g/dL Normal 12.0-16.0 [facility] Comment on above: Performed By: #### D ATCBC #### [facility] [address] [place] [address] [address] Pablo Sheth IG # 0.05 10e3/ul Critically high 0.00-0.03 [facility] Comment on above: Performed By: #### D ATCBC #### [facility] [address] [place] [address] [address] Pablo Sheth IG % 0.4 % Normal 0.0-0.5 [facility] Comment on above: Performed By: #### D ATCBC #### [facility] [address] [place] [address] [address] Pablo Sheth LYMPH # 2.8 103/ul Normal 1.2-3.8 [facility] Comment on above: Performed By: #### D ATCBC #### [facility] [address] [place] [address] [address] Pablo Sheth Lymphocytes/100 WBC (Bld) 20.9 % Normal 20.5-60.0 [facility] Comment on above: Performed By: #### D ATCBC #### [facility] [address] [place] [address] [address] Pablo Sheth MCH (RBC) [Entitic mass] 29.2 pg Normal 26.7-34.0 [facility] Comment on above: Performed By: #### D ATCBC #### [facility] [address] [place] [address] [address] Pablo Sheth MCHC (RBC) [Mass/Vol] 32.2 g/dL Normal 29.9-35.2 [facility] Comment on above: Performed By: #### D ATCBC #### [facility] [address] [place] [address] [address] Pablo Sheth MCV (RBC) [Entitic vol] 90.8 fL Normal 81.0-99.0 [facility] Comment on above: Performed By: #### D ATCBC #### [facility] [address] [place] [address] [address] Pablo Sheth MONO # 1.0 103/ul Critically high 0.3-0.8 [facility] Comment on above: Performed By: #### D ATCBC #### [facility] [address] [place] [address] [address] Pablo Sheth Monocytes/100 WBC (Bld) 7.5 % Normal 1.7-12.0 [facility] Comment on above: Performed By: #### D ATCBC #### [facility] [address] [place] [address] Dr. Pablo Sheth NEUT # 9.2 103/ul Critically high 1.4-6.5 [facility] Comment on above: Performed By: #### D ATCBC #### [facility] [address] [place] [address] Dr. Pablo Sheth Neutrophils/100 WBC (Bld) 68.4 % Normal 43.0-75.0 [facility] Comment on above: Performed By: #### D ATCBC #### [facility] [address] [place] [address] Dr. Pablo Sheth Platelet mean volume (Bld) [Entitic vol] 9.3 fL Critically low 9.5-13.5 [facility] Comment on above: Performed By: #### D ATCBC #### [facility] [address] [place] [address] Dr. Pablo Sheth PLT 313 103/ul Normal 150-450 [facility] Comment on above: Performed By: #### D ATCBC #### [facility] [address] [place] [address] Dr. Pablo Sheth RBC 4.69 106/ul Normal 4.20-5.40 [facility] Comment on above: Performed By: #### D ATCBC #### [facility] [address] [place] [address] Dr. Pablo Sheth WBC 13.4 103/ul Critically high 4.0-11.0 [facility] Comment on above: Performed By: #### D ATCBC #### [facility] [address] [place] [address] [address] Pablo Sheth BERKLEY - TSHon 12-17-2021 TSH 1.241 uIU/mL Normal 0.358-3.740 [facility] Comment on above: Performed By: #### D ATTSH, DATBMP #### [facility] [address] [address] [address] Pablo Sheth TSH RANGE SEE BELOW Normal [facility] Comment on above: Result Comment: <0.3 4 UIU/ml HYPERTHYROID 0.34-5.60 UIU/ml EUTHYROID >5.60 UIU/ml HYPOTHYROID Performed By: #### D ATTSH, DATBMP #### [facility] [address] [place] [address] Dr. Pablo Sheth BERKLEY- BMP WITH LIPIDon 2021 Anion gap [Moles/Vol] 11.9 mmol/L Normal [facility] Comment on above: Performed By: #### D ATTSH, DATBMP #### [facility] [address] [place] [address] Dr. Pablo Sheth Calcium [Mass/Vol] 9.1 mg/dL Normal 8.5-10.1 [facility] Comment on above: Performed By: #### D ATTSH, DATBMP #### [facility] [address] [place] [address] Dr. Pablo Sheth Chloride [Moles/Vol] 104 mmol/L Normal 98-107 [facility] Comment on above: Performed By: #### D ATTSH, DATBMP #### [facility] [address] [place] [address] Dr. Pablo Sheth Cholesterol [Mass/Vol] 207 mg/dL Critically high <=200 [facility] Comment on above: Performed By: #### D ATTSH, DATBMP #### [facility] [address] [place] [address] Dr. Pablo Sheth Cholesterol in HDL [Mass/Vol] 52 mg/dL Normal 40-60 [facility] Comment on above: Performed By: #### D ATTSH, DATBMP #### [facility] [address] [address] [address] Pablo Sheth Cholesterol in LDL [Mass/Vol] 141.4 mg/dL Normal [facility] Comment on above: Performed By: #### D ATTSH, DATBMP #### [facility] [address] [address] [address] Pablo Sheth CO2 [Moles/Vol] 29.3 mmol/L Normal 21.0-32.0 [facility] Comment on above: Performed By: #### D ATTSH, DATBMP #### [facility] [address] [address] [address] Pablo Sheth Creatinine [Mass/Vol] 0.77 mg/dL Normal 0.55-1.02 [facility] Comment on above: Performed By: #### D ATTSH, DATBMP #### [facility] [address] [address] [address] Pablo Sheth EGFR-AF PORTUGUESE >60 Normal >=60 [facility] Comment on above: Performed By: #### D ATTSH, DATBMP #### [facility] [address] [address] [address] Pablo Sheth EGFR-NON AF PORTUGUESE >60 Normal >=60 [facility] Comment on above: Performed By: #### D ATTSH, DATBMP #### [facility] [address] [address] [address] Pablo Sheth Glucose [Mass/Vol] 109 mg/dL Critically high 74-106 [facility] Comment on above: Performed By: #### D ATTSH, DATBMP #### [facility] [address] [address] [address] Pablo Sheth HDL NORMAL > or = 60 mg/dl - LO W CARDIOVASCULAR RISK <40 mg/dl - HIGH CARDIOVASCULAR RISK Normal [facility] Comment on above: Performed By: #### D ATTSH, DATBMP #### [facility] [address] [address] [address] Pablo Sheth LDL CALC NORMAL SEE BELOW Normal [facility] Comment on above: Result Comment: <100 mg/dl OPTIMAL 100 - 129 mg/dl NEAR OR ABOVE OPTIMAL 130 - 159 mg/dl BORDERLINE HIGH 160 - 189 mg/dl HIGH >190 mg/dl VERY HIGH Performed By: #### D ATTSH, DATBMP #### [facility] [address] [address] [address] Pablo Sheth Potassium [Moles/Vol] 4.2 mmol/L Normal 3.5-5.1 [facility] Comment on above: Performed By: #### D ATTSH, DATBMP #### [facility] [address] [address] [address] Pablo Sheth Sodium [Moles/Vol] 141 mmol/L Normal 136-145 [facility] Comment on above: Performed By: #### D ATTSH, DATBMP #### [facility] [address] [address] [address] Pablo Sheth Triglyceride [Mass/Vol] 68 mg/dL Normal <=150 [facility] Comment on above: Performed By: #### D ATTSH, DATBMP #### [facility] [address] [address] [address] Pablo Sheth Urea nitrogen [Mass/Vol] 26.0 mg/dL Critically high 7.0-18.0 [facility] Comment on above: Performed By: #### D ATTSH, DATBMP #### [facility] [address] [address] [address] Pablo Sheth Urea nitrogen/Creatinin e [Mass ratio] 33.8 mg/mg Normal [facility] Comment on above: Performed By: #### D ATTSH, DATBMP #### [facility] [address] [address] [address] Pablo Sheth VLDL CALC 13.6 mg/dL Normal [facility] Comment on above: Performed By: #### D ATTSH, DATBMP #### [facility] [address] [address] [address] Pablo Sheth Physician Referralon 022 Physician Referral [id number]:[address] [facility] Vital Signs Date Time Vital Sign Value Performing Clinician Facility 06-26-2024 08:30-0400 Body height 170.18 cm Cornelius Garrison MD Work Phone: [facility] 06-26-2024 08:30-0400 Body mass index (BMI) [Ratio] 27.6 kg/m2 Cornelius Garrison MD Work Phone: [facility] 06-26-2024 08:30-0400 Body weight 79.94 kg Cornelius Garrison MD Work Phone: [facility] 06-26-2024 08:30-0400 Diastolic blood pressure 107 mm[Hg] Cornelius Garrison MD Work Phone: [facility] 06-26-2024 08:30-0400 Heart rate 80 /min Cornelius Garrison MD Work Phone: [facility] 06-26-2024 08:30-0400 Respiratory rate 12 /min Cornelius Garrison MD Work Phone: [facility] 06-26-2024 08:30-0400 SaO2% (BldA) [Mass fraction] 95 % Cornelius Garrison MD Work Phone: [facility] 06-26-2024 08:30-0400 Systolic blood pressure 168 mm[Hg] Cornelius Garrison MD Work Phone: [facility] 06-05-2024 14:11-0500 Body height 170.2 cm Geoff Walker DO Work Phone: [facility] 06-05-2024 14:11-0500 Body mass index (BMI) [Ratio] 27.72 kg/m2 Geoff Walker DO Work Phone: [facility] 06-05-2024 14:11-0500 Body weight 80.29 kg Geoff Walker DO Work Phone: [facility] 04-15-2024 15:14-0500 Body height 170.18 cm Cornelius Garrison MD Work Phone: [facility] 04-15-2024 15:14-0500 Body mass index (BMI) [Ratio] 27.7 kg/m2 Cornelius Garrison MD Work Phone: [facility] 04-15-2024 15:14-0500 Body temperature 98.4 [degF] Cornelius Garrison MD Work Phone: [facility] 04-15-2024 15:14-0500 Body weight 80.28 kg Cornelius Garrison MD Work Phone: [facility] 04-15-2024 15:14-0500 Diastolic blood pressure 82 mm[Hg] Cornelius Garrison MD Work Phone: [facility] 04-15-2024 15:14-0500 Heart rate 83 /min Cornelius Garrison MD Work Phone: [facility] 04-15-2024 15:14-0500 Respiratory rate 20 /min Cornelius Garrison MD Work Phone: [facility] 04-15-2024 15:14-0500 SaO2% (BldA) [Mass fraction] 96 % Cornelius Garrison MD Work Phone: [facility] 04-15-2024 15:14-0500 Systolic blood pressure 128 mm[Hg] Cornelius Garrison MD Work Phone: [facility] 03-29-2024 08:56-0500 Body height 170.18 cm Cornelius Garrison MD Work Phone: [facility] 03-29-2024 08:56-0500 Body mass index (BMI) [Ratio] 27.2 kg/m2 Cornelius Garrison MD Work Phone: [facility] 03-29-2024 08:56-0500 Body weight 78.92 kg Cornelius Garrison MD Work Phone: [facility] 03-29-2024 08:56-0500 Diastolic blood pressure 86 mm[Hg] Cornelius Garrison MD Work Phone: [facility] 03-29-2024 08:56-0500 Heart rate 91 /min Cornelius Garrison MD Work Phone: [facility] 03-29-2024 08:56-0500 SaO2% (BldA) [Mass fraction] 95 % Cornelius Garrison MD Work Phone: [facility] 03-29-2024 08:56-0500 Systolic blood pressure 124 mm[Hg] Cornelius Garrison MD Work Phone: [facility] 03-11-2024 15:29-0500 Body height 170.18 cm Cornelius Garrison MD Work Phone: [facility] 03-11-2024 15:29-0500 Body mass index (BMI) [Ratio] 27.8 kg/m2 Cornelius Garrison MD Work Phone: [facility] 03-11-2024 15:29-0500 Body temperature 97.6 [degF] Cornelius Garrison MD Work Phone: [facility] 03-11-2024 15:29-0500 Body weight 80.73 kg Cornelius Garrison MD Work Phone: [facility] 03-11-2024 15:29-0500 Diastolic blood pressure 80 mm[Hg] Cornelius Garrison MD Work Phone: [facility] 03-11-2024 15:29-0500 Heart rate 82 /min Cornelius Garrison MD Work Phone: [facility] 03-11-2024 15:29-0500 Respiratory rate 20 /min Cornelius Garrison MD Work Phone: [facility] 03-11-2024 15:29-0500 SaO2% (BldA) [Mass fraction] 98 % Cornelius Garrison MD Work Phone: [facility] 03-11-2024 15:29-0500 Systolic blood pressure 134 mm[Hg] Cornelius Garrison MD Work Phone: [facility] 02-08-2024 13:55-0400 Body height 170.18 cm MD Cornelius Garrison Work Phone: [facility] 02-08-2024 13:55-0400 Body mass index (BMI) [Ratio] 27.9 kg/m2 MD Cornelius Garrison Work Phone: [facility] 02-08-2024 13:55-0400 Body weight 80.9 kg MD Cornelius Garrison Work Phone: [facility] 02-08-2024 13:55-0400 Diastolic blood pressure 78 mm[Hg] MD Cornelius Garrison Work Phone: [facility] 02-08-2024 13:55-0400 Heart rate 74 /min MD Cornelius Garrison Work Phone: [facility] 02-08-2024 13:55-0400 SaO2% (BldA) [Mass fraction] 96 % MD Cornelius Garrison Work Phone: [facility] 02-08-2024 13:55-0400 Systolic blood pressure 110 mm[Hg] MD Cornelius Garrison Work Phone: [facility] 01-24-2024 14:35-0400 Body height 170.18 cm MD Cornelius Garrison Work Phone: [facility] 01-24-2024 14:35-0400 Body mass index (BMI) [Ratio] 28.3 kg/m2 MD Cornelius Garrison Work Phone: [facility] 01-24-2024 14:35-0400 Body weight 82.21 kg MD Cornelius Garrison Work Phone: [facility] 01-09-2024 15:17-0400 Body height 167.64 cm [facility] 01-09-2024 15:17-0400 Body mass index (BMI) [Ratio] 28.2 kg/m2 [facility] 01-09-2024 15:17-0400 Body weight 79.37 kg [facility] 01-09-2024 15:17-0400 Diastolic blood pressure 91 mm[Hg] [facility] 01-09-2024 15:17-0400 Heart rate 76 /min [facility] 01-09-2024 15:17-0400 SaO2% (BldA) [Mass fraction] 97 % [facility] 01-09-2024 15:17-0400 Systolic blood pressure 135 mm[Hg] [facility] 11-01-2023 08:57-0400 Body height 167.64 cm [facility] 11-01-2023 08:57-0400 Body mass index (BMI) [Ratio] 28.2 kg/m2 [facility] 11-01-2023 08:57-0400 Body weight 79.37 kg [facility] 11-01-2023 08:57-0400 Diastolic blood pressure 90 mm[Hg] [facility] 11-01-2023 08:57-0400 Heart rate 63 /min [facility] 11-01-2023 08:57-0400 Systolic blood pressure 136 mm[Hg] [facility] 10-13-2023 09:19-0400 Body height 167.64 cm [facility] 10-13-2023 09:19-0400 Body mass index (BMI) [Ratio] 28 kg/m2 [facility] 10-13-2023 09:19-0400 Body weight 78.92 kg [facility] 10-13-2023 09:19-0400 Diastolic blood pressure 76 mm[Hg] [facility] 10-13-2023 09:19-0400 Heart rate 78 /min [facility] 10-13-2023 09:19-0400 SaO2% (BldA) [Mass fraction] 98 % [facility] 10-13-2023 09:19-0400 Systolic blood pressure 118 mm[Hg] [facility] 07-31-2023 10:09-0400 Body height 167.64 cm [facility] 07-31-2023 10:09-0400 Body mass index (BMI) [Ratio] 28.8 kg/m2 [facility] 07-31-2023 10:09-0400 Body weight 80.9 kg [facility] 04-22-2024 10:09-0400 Diastolic blood pressure 89 mm[Hg] [facility] 07-31-2023 10:09-0400 Heart rate 74 /min [facility] 07-31-2023 10:09-0400 Systolic blood pressure 138 mm[Hg] [facility] 12-22-2021 14:20-0400 Blood Pressure Location Mihaela CASAS [facility] 12-22-2021 14:20-0400 Diastolic blood pressure 80 mm[Hg] Mihaela KERNL [facility] 12-22-2021 14:20-0400 Heart rate 72 /min Mihaela KERNL [facility] 12-22-2021 14:20-0400 Respiratory rate 16 /min Mihaela KERNL [facility] 12-22-2021 14:20-0400 Systolic blood pressure 116 mm[Hg] Mihaela KERNL [facility] Encounters Encounter Date Encounter Type Care Provider Facility Start: 07-30-2024 End: 07-30-2024 ambulatory Cornelius Garrison MD Facility:[facility] Start: 07-22-2024 End: 07-22-2024 ambulatory Cornelius Garrison MD Facility:[facility] Start: 07-08-2024 End: 07-08-2024 ambulatory Duong Oreilly MD Facility:[facility] Start: 06-26-2024 End: 06-26-2024 ambulatory Cornelius Garrison MD Work Phone: [facility] Work Phone: Start: 06-26-2024 End: 06-26-2024 Patient encounter procedure [facility]el[facility]arrison MD [facility] Work [facility]: Start: 06-17-2024 End: 06-17-2024 ambulatory Duong Oreilly MD Facility:[facility] Start: 06-06-2024 End: 06-06-2024 ambulatory Cornelius Garrison MD Facility:[facility] Start: 06-05-2024 End: 06-05-2024 Office outpatient new 45 minutes Geoff Walker DO Work Phone: [facility] Comment on above: Thyroid nodule (CMS/ HCC) (Primary Dx) Start: 06-05-2024 End: 06-05-2024 Bamboo flowsheet Geoff Walker DO Work Phone: [facility] Start: 06-05-2024 End: 06-05-2024 Bamboo flowsheet Geoff Walker DO Work Phone: [facility] Start: 06-05-2024 End: 06-05-2024 ambulatory GEOFF WALKER Not Available Start: 05-13-2024 End: 05-13-2024 ambulatory Duong Oreilly MD Facility:[facility] Start: 05-10-2024 ambulatory Cornelius Garrison MD Work Phone: [facility] Work Phone: Start: 05-10-2024 Non-patient / Non-visit Cornelius Garrison MD [facility] Phone[facility] Work Phone: Start: 04-29-2024 End: 04-29-2024 ambulatory Duong Oreilly MD Facility:[facility] Start: 04-22-2024 End: 04-22-2024 ambulatory Cornelius Garrison MD Work Phone: [facility] Work Phone: Start: 04-22-2024 End: 04-22-2024 Departnicholas Garrison MD Work Phone: [facility] Start: 04-22-2024 End: 04-22-2024 ambulatory Cornelius Garrison MD Facility:[facility] Start: 04-15-2024 End: 04-15-2024 ambulatory Cornelius Garrison MD Work Phone: [facility] Work Phone: Start: 04-15-2024 End: 04-15-2024 Patient encounter procedure Cornelius Garrison MD Work Phone: [facility] Work Phone: Start: 04-01-2024 End: 04-01-2024 Patient encounter procedure Kane Perez DO Work Phone: [facility] Comment on above: Lumbosacral radiculo bakari (Primary Dx); Numbness and tingling Start: 04-01-2024 End: 04-01-2024 ambulatory KANE MIRAMONTESNER Not Available Start: 04-01-2024 End: 04-01-2024 Bamboo flowsheet Kane Perez DO Work Phone: [facility] Start: 04-01-2024 End: 04-01-2024 Bamboo flowsheet Kane Perez DO Work Phone: [facility] Start: 03-29-2024 End: 03-29-2024 Patient encounter procedure Cornelius Garrison MD Work Phone: [facility] Work Phone: Start: 03-25-2024 End: 03-25-2024 ambulatory Cornelius Garrison MD Facility:[facility] Start: 03-21-2024 Non-patient / Non-visit Cornelius Garrison MD Work Phone: [facility] Work Phone: Start: 03-11-2024 End: 03-11-2024 Patient encounter procedure Cornelius Garrison MD Work Phone: [facility] Work Phone: Start: 03-04-2024 Non-patient / Non-visit Cornelius Garrison MD Work Phone: [facility] Work Phone: Start: 03-04-2024 End: 03-04-2024 Patient encounter procedure Cornelius Garrison MD Work Phone: [facility] Work Phone: Start: 03-04-2024 End: 03-04-2024 ambulatory Cornelius Garrison Facility:[facility] Start: 02-23-2024 End: 02-23-2024 ambulatory Cornelius Garrison MD Facility:[facility] Start: 02-19-2024 End: 02-19-2024 ambulatory Cornelius Garrison MD Facility:[facility] Start: 02-13-2024 End: 02-13-2024 ambulatory Cornelius Garrison MD Facility:[facility] Start: 02-08-2024 End: 02-08-2024 ambulatory MD Cornelius Garrison Work Phone: [facility] Work Phone: Start: 02-08-2024 End: 02-08-2024 Patient encounter procedure MD Cornelius Garrison Work Phone: [facility] Work Phone: Start: 02-07-2024 Non-patient / Non-visit MD Mala Garrison Work Phone: [facility] Work Phone: Start: 02-01-2024 Non-patient / Non-visit Cornelius Garrison MD Work Phone: [facility] Work Phone: Start: 01-24-2024 End: 01-24-2024 ambulatory MD Cornelius Garrison Work Phone: [facility] Work Phone: Start: 01-24-2024 End: 01-24-2024 Patient encounter procedure MD Cornelius Garrison Work Phone: [facility] Work Phone: Start: 01-24-2024 End: 01-24-2024 Patient encounter procedure MD Cornelius Garrison Work Phone: [facility] Start: 01-24-2024 End: 01-24-2024 ambulatory MD Cornelius Garrison Work Phone: [facility] Work Phone: Start: 01-19-2024 Non-patient / Non-visit MD Mala Garrison Work Phone: [facility] Work Phone: Start: 01-19-2024 Non-patient / Non-visit MD Mala Garrison Work Phone: [facility] Work Phone: Start: 01-09-2024 End: 01-09-2024 ambulatory [facility] Work Phone: Start: 01-09-2024 End: 01-09-2024 Patient encounter procedure [facility] Work Phone: Start: 11-01-2023 End: 11-01-2023 ambulatory [facility] Work Phone: Start: 11-01-2023 End: 11-01-2023 Patient encounter procedure [facility] Work Phone: Start: 10-13-2023 End: 10-13-2023 ambulatory [facility] Work Phone: Start: 10-13-2023 End: 10-13-2023 Patient encounter procedure [facility] Work Phone: Start: 07-31-2023 End: 07-31-2023 ambulatory [facility] Work Phone: Start: 07-31-2023 End: 07-31-2023 Patient encounter procedure [facility] Work Phone: Start: 05-26-2023 Non-patient / [facility]-visit [facility] Work Phone: Start: 02-01-2022 End: 02-02-2022 ambulatory [facility] Start: 02-01-2022 End: 02-01-2022 Patient encounter procedure Mihaela CASAS General [facility] Start: 01-13-2022 Encounter for preprocedural laboratory examination DR MIHAELA CASAS [facility] Start: 01-12-2022 End: 01-13-2022 ambulatory Mihaela CASAS Facility:[id number] Start: 01-10-2022 End: 01-11-[address] MIHAELA CASAS Facility:[facility] Start: 01-10-2022 End: 01-11-2022 Encounter for preprocedural laboratory examination DR MIHAELA CASAS Facility: Start: 12-22-2021 End: 12-23-2021 ambulatory Mihaela CASAS [facility] Start: 12-22-2021 End: 12-22-2021 Patient encounter procedure Mihaela CASAS General Surgery [facility] Start: 12-17-2021 End: 12-18-2021 ambulatory CORNELIUS GARRISON PROVIDER Facility:[facility] Procedures Date Procedure Procedure Detail Performing Clinician Start: 04-01-2024 End: 04-01-2024 Needle emg ea extremty w/paraspinl area complete Kane Perez DO Work Phone: Start: 01-24-2024 X-ray of both knees, three views MD Anoop Garrison Work Phone: Start: 01-12-2022 Colonoscopy Geoff Walker DO Work Phone: Start: 01-12-2022 Colonoscopy Mihaela CASAS Start: 01-12-2022 Esophagogastroduodenoscopy Mihaela KERNL Bilateral oophorectomy Ebenezer CASAS Colonoscopy Mihaela NILL Decompression of thoracic spine Mihaela NILL Discectomy of spine Mihaela NILL Comment on above: T12-L1 T12-L1 Esophagogastroduodenoscopy Jax castillo NILL Excision of bunion Mihaela N ILL Repair of vaginal tear Ebenezer chaney NILL Tonsillectomy Mihaela NILL Plan of Treatment Date Care Activity Detail Author Start: 01-13-2032 Screening for malign ant neoplasm of colon [facility] Start: 06-10-2025 End: 06-10-2025 Patient encounter procedure 06/10/2025 8:45 AM EST Office Visit [facility] [address] [place] [id number] Geoff Walker, DO [address] [place] [address] [facility] Start: 06-26-2024 Patient referral [facility] Work Phone: Start: 06-05-2024 End: 06-05-2024 Patient encounter procedure 06/05/2024 2:30 PM EST Office Visit [facility] [address] [place] [id number] Geoff Walker, DO [address] [place] [address] Arrived [facility] Comment on above: Arrived Start: 05-10-2024 Patient referral [facility] Work Phone: Start: 04-05-2024 Patient referral [facility] Work Phone: Start: 04-01-2024 End: 04-01-2024 Patient encounter procedure 04/01/2024 3:00 PM EST Procedure Visit [facility] [address] [place] [address] Kane Perez DO [address] [place] [address] Arrived [facility] Comment on above: Arrived Start: 01-24-2024 X-ray of both knees, three views XR knee BI 3V - NOT FOR ER USE [facility] Start: 01-24-2024 XR Knee - bilateral 3 Views [facility] Start: 01-22-2024 Pneumococcal Vaccine : 65+ Years (1 of 1 - PCV) Pneumococcal Vaccine: 65+ Years (1 of 1 - PCV) [facility] Start: 01-10-2024 Patient referral [facility] Work Phone: Start: 12-10-2023 Influenza vaccination Influenza Vacc ine (#1) [facility] Start: 1999 Screening for malign ant neoplasm of breast Mammogram [facility] Start: 1989 Screening for malign ant neoplasm of cervix [facility] Start: 01-22-1980 Screening for malign ant neoplasm of cervix Pap Smear [facility] Start: 1959 Screening for malign ant neoplasm of colon [facility] CT Unspecified body region [facility] CT Unspecified body region [facility] DXA Skeletal system.axial Views for bone density [facility] Patient Education Low back pain in adults [facility] Work Phone: Patient referral [facility] Work Phone: US Lower extremity v ein - right [facility] US Thyroid gland [facility] Immunizations Immunization Date Immunization Notes Care Provider Fa cility 03-11-2024 diphtheria, tetanus toxoids and acellular pertussis vaccine, unspecified formulation Cornelius Garrison MD Work Phone: [facility] 03-29-2021 COVID-19 mRNA, Comirnaty (Pfizer) [facility] 08-11-2020 COVID-19 mRNA, Comirnaty (Pfizer) [facility] 07-21-2020 COVID-19 mRNA, Comirnaty (Pfizer) [facility] 10-07-2018 diphtheria, tetanus toxoids and acellular pertussis vaccine, unspecified formulation [facility] 02-05-2014 tetanus and diphther ia toxoids, adsorbed, preservative free, for adult use (5 Lf of tetanus toxoid and 2 Lf of diphtheria toxoid) [facility] Payers Date Payer Category Payer Other GENERIC OTHER [id number] 2024 Unknown [id number] 2024 Medicare [id number] 2024 Medicare [id number] 2023 Unknown 2021 Unknown [id number] 1959 Self-pay [id number] 1959 Unknown [id number] 2.16.840.1.447518.3.579.2 .727 1959 Unknown [id number] 2.16.840.1.163799.3.579.2 .727 1959 Unknown [id number] 2.16.840.1.436561.3.579.2 .727 1959 Unknown [id number] 2.16.840.1.296341.3.579.2 .727 1959 Unknown [id number] 2.16.840.1.595853.3.579.2 .593 1959 Unknown [id number] 2.16.840.1.083369.3.579.2 .593 1959 Unknown [id number] 2.16.840.1.659141.3.579.2 .1259 1959 Unknown [id number] 2.16.840.1.260073.3.579.2 .1259 1959 Unknown [id number] 2.16.840.1.773059.3.579.2 .196 1959 Unknown [id number] 2.16.840.1.320449.3.579.2 .196 1959 Unknown [id number] 2.16.840.1.839233.3.579.2 .196 1959 Unknown [id number] 2.16.840.1.904590.3.579.2 .196 1959 Unknown [id number] 2.16.840.1.440230.3.579.2 .196 1959 Unknown [id number] 2.16.840.1.937095.3.579.2 .196 1959 Unknown [id number] 2.16.840.1.611900.3.579.2 .196 1959 Unknown [id number] 2.16.840.1.787400.3.579.2 .196 1959 Unknown [id number] 2.16.840.1.569930.3.579.2 .196 1959 Unknown [id number] 2.16.840.1.095340.3.579.2 .196 1959 Unknown [id number] 2.16.840.1.058280.3.579.2 .196 1959 Unknown [id number] 2.16.840.1.485094.3.579.2 .196 Private Health Insurance [employer] [facility] G [id number] Unknown [id number] Unknown [id number] 2.16.840.1.335886.3.579.2 .593 Unknown MMO [employer] [id number] Social History Date Type Detail Facility Start: 12-22-2021 Heavy tobacco smoker (finding) [facility] Start: 06-05-2024 Female [facility] Start: 07-31-2023 End: 04-15-2024 Tobacco smoking status NHIS Smoker (finding) [facility] Start: 1960 Sex Assigned At Female F [facility] Start: 1960 Sex assigned at Not on file [facility] Start: 04-15-2024 End: 06-26-2024 Sex Female (finding) [facility] Start: 06-05-2024 [facility] History of tobacco use Cigarette Smoker [facility] Start: 06-05-2024 Tobacco use and exposure Smokeless tobacco non-user [facility] Start: 06-05-2024 Alcoholic beverage intake Ex-drinker (finding) [facility] Start: 06-05-2024 History of Social function [facility] Functional Status Date Assessment Result Facility 12-22-2021 N/A [facility] Clinical Notes 12-22-2021 to 06-05-2024 Geoff Walker, [...] FNA was performed which came back as [place] III, Afirma testing was then done showing [...] in 1 year documented in this encounter [facility] 05-10-2024 Hospital Discharge instructions Ambulatory OrdersReferral to ENT Time Frame: 05/10/24, Location: None [facility] Work Phone: 04-01-2024 History of Present illness Narrative Images from the original note were not included. Reason for Appointment: EMG Patient: Cristine Manley : 1960 EMG Computer: [employer] Referring Physician: Ofelia Arceo PA-C EMG: [facility] capacitor tester: Daniel Dougherty RT(R) Office Location: [place] Reason for EMG: c/o numbness/tingling in bilateral [...] of the test. 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 Work Phone: 1(730) 346-594412-02-2024 Evaluation note* Diagnosis Onset Date Resolution Status [...] for lung cancer acute April 15 3:12pm correction (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 of 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 acute April 15 3:12pm Moderate persistent asthma, uncomplicated acute April 15 3:12pm [facility] Work Phone: 1(996) 786-257611-15-2024 NotePatient Education Materials Name: Cristine Manley Current Date: 02/23/2024 07:10:10 [place] : 1960 The following sheet(s) are the [...] for continued care. Thank you for choosing [facility] for your care.[facility]10-31-2024 Evaluation note* Diagnosis Onset Date Resolution [...] for lung cancer acute April 15 3:12pm correction (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 of 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 acute April 15 3:12pm Moderate persistent asthma, uncomplicated acute April 15 3:12pm [facility] Work Phone: 1(829) 837-439610-16-2024 Evaluation note* Diagnosis Onset Date Resolution Status [...] persistent asthma, uncomplicated acute April 15 3:12pm [facility] Work Phone: 1(174) 988-602310-05-2022 NoteOPERATIVE NOTE OPERATION DATE: 01/12/2022 PREOPERATIVE DIAGNOSIS: [...] of the polyp. CC: Cornelius Garrison M.D.[id number] NoteChief Complaint consultation for epigastric pain HPI [...] Chronic obstructive pulmonary dise (more content not included)...[facility]Result Comment: Electronically Signed By: RAJINDER TAVERAS, Mihaela Trujillo\Date and Time Signed: 12/22/21 17:34 EDTEvaluation + Plan note No data available for this section [facility] Evaluation note* Diagnosis Onset Date Resolution Status Lumbar radiculopathy, chronic acute [facility] Work Phone: Evaluation note* Diagnosis Onset Date Resolution Status Lumbar radiculopathy, chronic acute Headache acute Joint pain acute Tick bite acute [facility] Work Phone: Evaluation note* Diagnosis Onset Date Resolution Status Headache acute Joint pain acute Tick bite acute Chronic obstructive pulmonary disease, unspecified acute Lumbar radiculopathy, chronic acute [facility] Work Phone: Evaluation note* Diagnosis Onset Date Resolution Status Chronic obstructive pulmonary disease, unspecified acute Lumbar radiculopathy, chronic acute Bilateral knee pain acute COPD exacerbation acute Lumbar pain acute Lumbar radiculopathy, chronic acute Bilateral knee pain acute Primary osteoarthritis of both knees acute [facility] Work Phone: Evaluation note* Diagnosis Onset Date Resolution Status Bilateral knee pain acute COPD exacerbation acute Lumbar pain acute Lumbar radiculopathy, chronic acute Bilateral knee pain acute Primary osteoarthritis of both knees acute Menopause acute [facility] Work Phone: Evaluation note* Diagnosis Lumbosacral radiculopathy- Primary Thoracic or lumbosacral neuritis or radiculitis, unspecified Numbness and tingling Disturbance of skin sensation documented in this encounter [facility] HealthcareEvaluation note* Diagnosis Thyroid nodule (CMS/HCC)- Primary Nontoxic uninodular goiter documented in this encounter [facility] HealthcareHospital Discharge instructions No data available for this section [facility] Discharge instructionsAmbulatory Orders* Referral to Orthopedics Time Frame: 06/26/24, Location: None Selected [facility] Work Phone: Progress note No data available for this section [facility] Reason for visit Narrative* Other Medical (Routine) - Closed Specialty Diagnoses / Procedures Referred By Contac t Referred To Contact Neurology Diagnoses Neuralgia and neuritis, unspecified Procedures CO NEEDLE EMG EA EXTREMTY W/PARASPINL AREA COMPLETE CO NERVE CONDUCTION STUDIES 9-10 STUDIES Ofelia Arceo PA-C [address] [place] [address] Phone: tel: fax: Cecil Fields MD [address] [place] [address] Phone: tel: fax: Referral ID Status Reason Start Date Expiration Date V isits Requested Visits Authorized [id number] Closed Perform Procedure 03/27/2024 09/23/2024 1 1 [facility] Healthcare Summary Purpose Family History No [...] Back & Knee Pain-HIGH RISK March 8:45am [facility]: 4 wk f/u Asthma COPD April 15 [...] Back & Knee Pain-HIGH RISK March 8:45am [facility]ER: 4 wk f/u Asthma COPD April 15, [...] for lung cancer April 15, 2024 3:12pm 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 April [...] End: October 13, 2023 Brittanie Siu APRN TRAFFIC II MANAGER-C Attending Provider Act onesimo Start: October 13, [...] Provider Active S tart: January 24, 2024 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 Start Date End Date Cornelius Garrison MD [address] [place] [id number] PCP - General Family Medicine 03/27/24 Ofelia Arceo MD [address] [address] Referring Physician Internal Medicine 03/27/24 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 Start Date End Date Cornelius Garrison MD [address] [place] [address] PCP - General Family Medicine 03/27/24 Ofelia Arceo MD [address] [place] [address] Referring Physician Internal Medicine 03/27/24 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 Start Date End Date Cornelius Garrison MD [address] [place] [id number] PCP - General Family Medicine 03/27/24 Ofelia Arceo MD [address] [place] [address] Referring Physician Internal Medicine 03/27/24 Geoff Walker DO [address] [place] [address] Otolaryngology 06/05/24 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 Start Date End Date Cornelius Garrison MD [address] [place] [address] PCP - General Family Medicine 03/27/24 Ofelia Arceo MD [address] [place] [address] Referring Physician Internal Medicine 03/27/24 Geoff Walker DO [address] [place] [address] Otolaryngology 06/05/24 INFORMATION SOURCE (unrecogn ized section and content) DATE CREATED AUTHOR 02/21/2022 [facility] DATE CREATED AUTHOR AUTHOR'S ORGANIZ ATION 04/01/2022 [facility] DATE CREATED AUTHOR AUTHOR'S ORGANIZ ATION 05/12/2024 [facility] DATE CREATED AUTHOR AUTHOR'S ORGANIZ ATION 06/07/2024 [facility] EPIC DATE CREATED AUTHOR AUTHOR'S ORGANIZ ATION 08/01/2024 [facility] Goals (unrecognized section and content) Goals [...] BE BASED ON THE PRIMARY CLINICAL RECORDS. [facility] [employer] [facility]. provides no warranty or guarantee of the accuracy or completeness of information in this document.
--- NOTE | 2024-08-21 08:41 | PM.CN ---
Consult Note: HPI Data of Consult Patient: known to practice within the last 3 years Requesting Physician: Julee Reynoso NP Primary Care Provider: Celia Blank MD Consult Narrative Reason for consult: f/u Narrative: Cristine Manley a pleasant 64 year old female presents for evaluation of pain. recently underwent bilateral L4/5 L5/S1 RFA with moderate improvement in facet mediated low back pain. However she continues to have moderate to severe upper back and lumbar radiculopathy pain. pain today 6/10 burning throbbing with numbness in bilateral feet. She was evaluated by NS at [facility] who did not recommend additional intervention, but now pt is following with Dr Ramon for further workup. She recently underwent additional CT myelogram of lumbar spine which confirms multilevel degenerative changes and stenosis. 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 (ICD-10) Asthma ?J45.909 - Unspecified asthma, uncomplicated (ICD-10) Surgical History H/O fine needle aspiration with imaging guidance ?Z98.890 - Other specified postprocedural states (ICD-10) Status post discectomy ?Z98.890 - Other specified postprocedural states (ICD-10) History of bunionectomy ?Z98.890 - Other specified postprocedural states (ICD-10) H/O bilateral oophorectomy ?Z90.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, bilateral (ICD-10) History of tonsillectomy ?Z90.89 - Acquired absence of other organs (ICD-10) Social History Little interest or pleasure in doing things: not at all Feeling down, depressed, or hopeless: not at all Meds Home Medications and Allergies Home Medications ?Medication ?Instructions ?Recorded ?Confirmed ?Type albuterol sulfate 2.5 mg/3 mL 2.5 mg inhalation Q4H PRN 01/19/24 07/22/24 History (0.083 %) solution for nebulization shortness of breath or wheezing albuterol sulfate 90 mcg/actuation 2 puff inhalation Q4H 01/19/24 07/22/24 History aerosol inhaler hydrocodone 5 mg-acetaminophen 325 1 tab PO Q8H 01/19/24 07/22/24 History mg tablet tizanidine 4 mg tablet 4 mg PO Q8H 01/19/24 07/22/24 History omeprazole 20 mg capsule,delayed 20 mg PO DAILY 02/01/24 07/22/24 History release bupropion HCl 150 mg 24 hr tablet, 150 mg PO DAILY 04/22/24 07/22/24 History extended release fluticasone fur. 200 mcg-umeclid 1 inh inhalation DAILY 04/22/24 07/22/24 History 62.5 mcg-vilant 25 mcg inhalat.powder (Trelegy Ellipta) diazepam 10 mg tablet (Valium) 10 mg PO ONCE PRN anxiety 07/22/24 07/22/24 History Allergies Allergy/AdvReac Type Severity Reaction Status Date / Time Sulfa (Sulfonamide Allergy Unknown Unknown Verified 07/22/24 08:24 Antibiotics) levofloxacin (From Levaquin) Allergy Rash Verified 07/22/24 08:24 acetaminophen (From Percocet) AdvReac Intermediate Vomiting Verified 07/22/24 08:24 oxycodone (From Percocet) AdvReac Intermediate Vomiting Verified 07/22/24 08:24 Exam Constitutional Documenting provider has reviewed patient's vital signs: yes Common normals: no apparent distress, oriented x3, healthy appearing, alert and well nourished General appearance: cooperative [facility] Common normals: normocephalic, hearing grossly normal bilaterally and moist oral mucous membranes Head and scalp: normocephalic Eye Common normals: PERRL Pupil: PERRL Neck & C-Spine Common normals: full ROM General: normal visual inspection Chest Common normals: inspection of chest normal Respiratory Common normals: normal respiratory effort, no retractions and no use of accessory muscles Back & Pelvis Thoracic spine/upper back: pain with ROM and thoracic spinal tenderness T-spine tenderness location: T2, T3 and T4 Lumbar spine/lower back: ROM not limited, no pain with ROM and no lumbar spinal tenderness Other: decreased sensation to bilateral T2,3,4 dermatomal pattern with positive facet loading and tenderness over facets negative facet loading to lumbar spine strength 5/5 in BLE with decreased sensation to bilateral L4,5,S1 Neuro Common normals: oriented x3 Sensorium/orientation: alert Psych Common normals: mental status grossly normal, thought process normal, cooperative, affect normal, speech normal and activity/motor behavior normal Speech: normal speech Thought process: normal thought process Results Additional Findings Additional findings: If on a controlled substance or opioids, I have checked an [place]AR[place] report on this patient and there are no aberrancies noted in the prescribing history.??If on a controlled substance or opioid a drug screen was completed and reviewed within the last year, and if there has not been a drug screen completed we ordered one today to monitor higher risk, state monitored pain medication use. As part of providing excellent, safe, comprehensive care, the following was completed at our patient's visit: 1. A medication reconciliation and review to ensure accurate knowledge of current/active medications, including asking our patients to inform us about any [id number] medications or herbal remedies/nutritional supplements/alternative remedies. 2. A review to specifically ensure our patients have had annual screening for screening for depression, screening for tobacco use, and screening for unhealthy alcohol use. For concerning screenings had a discussion with the patient, provided patient education, and recommended follow-up with primary care provider when appropriate. If patient noted with a risk of falling, they received education on strength, gait, and balance training to prevent future risk of falling. Portions of this note may have been carried over from the previous visit and updated as appropriate. Please note this office utilizes paper charting in addition to the electronic medical record. A list of current medications, vitals, and PMH is available there as the clinical staff outside of myself do not have access to [facility] [employer] charting during the clinic day operations. As part of providing quality comprehensive care the current medications, vitals, and PMH were reviewed in the paper chart. Assessment and Plan Assessment and Plan (1) Failed back syndrome: (2) Thoracic spondylosis: (3) Lumbar facet arthropathy: Assessment and Plan: 07/22/24 bilateral L4-5 L5-S1 facet RFA moderate improvement in facet mediated low back pain (4) Lumbar radiculopathy: Assessment and Plan: 04/29/24 left L4/5 L5/S1 TFESI with >50% improvement in radicular pain/NC symptoms greater than 3 months (5) Lumbar stenosis with neurogenic claudication: (6) Thoracic radiculopathy: Plan continue f/u with NS as planned continue medication management through PCP at this time defer additional ESIs at this time. f/u based on NS recommendations
== END 2024-08-21 08:01 | disposition home or self-care (01) ==
LOC: PM 08:01
PROVIDERS: PCP Family Medicine; Visit Provider Nurse Practitioner
DX: M47.814 Spondylosis without myelopathy or radiculopathy, thoracic region (principal); M96.1 Postlaminectomy syndrome, not elsewhere classified; M47.816 Spondylosis without myelopathy or radiculopathy, lumbar region; M54.16 Radiculopathy, lumbar region; M48.062 Spinal stenosis, lumbar region with neurogenic claudication; M54.14 Radiculopathy, thoracic region
CPT/HCPCS: G0463

== ENCOUNTER 2024-09-30 14:10 | Emergency (ER) | payer MEDICARE, OTHER, SELFPAY ==
[2024-09-30 14:14] VITALS: BP 136/83; PULSE 87; TEMP 36.9; O2SAT 97; BMI 26.5
== END 2024-09-30 16:30 | disposition left against medical advice (07) ==
LOC: ER 14:16
PROVIDERS: Emergency Provider Emergency Medicine; PCP Family Medicine
DX: Z53.21 Procedure and treatment not carried out due to patient leaving prior to being seen by health care provider (principal)
CPT/HCPCS: 99281

== ENCOUNTER 2024-11-03 04:50 | Emergency (ER) | payer MEDICARE, OTHER, SELFPAY ==
--- OUTSIDE RECORDS SUMMARY | 2024-10-16 05:43 | XMS_ITS ---
Author Organization [facility] in [place] Address [address] [place] [address] Care Team Providers Care Certified Registered Locksmith Name Role Phone Celia Blank Primary Care Provider Scott Cramer [phone] REASON FOR VISIT Appointment Encounters Encounter Location Date Provider Diagnosis Pulmonary Medicine [place] [address] [place] [address] 10/16/2024 Scott Dennis Plan Of Treatment No Information Progress Notes * Cristine MANLEY KDOB: (64 yo F)Acc No.[id number]:10/16/2024 Patient: Amanda ALEJANDREandrea Hairston :1960 A ge:64 Y S ex:Female Address:[address] [place] [address], [phone] * true * Date: Generated for Darya santiago/Alda/eTransmitting on: 0 11/03/2024 04:56 AM EDT
--- OUTSIDE RECORDS SUMMARY | 2024-10-17 11:00 | XMS_ITS ---
Author Organization [facility] in [place] Address [address] [place] [address] Care Team Providers Care Category Director Name Role Phone Celia Blank Primary Care Provider Scott Cramer [phone] Allergies Allergen (clinical drug ingredient) Drug/Non Drug [...] Risk Notes Problem Uncomplicated moderate persistent asthma (349463140) Moderate persistent asthma, uncomplicated (J45.40) Active confirmed Problem Mental disorder caused by drug (872478576) Cigarette nicotine dependence with nicotine-induced disorder (F17.219) Active confirmed Problem Long-term current use of inhaled steroid (623990616) 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 10/17/2024 manager intermediate (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 of 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 (ICD-10 - [...] annual LDCT screening which is due 03/2025. [facility] (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 of i nhaled steroids Patient [...] PFT Data: 03/04/2024 -FEV1 /FVC: 73%-FEV1: 65%-FVC: 68%-TYN03-24%: 56%-Bronchodilator response: Partial-RV: 118%-T%-DLCO: 77% Progress Notes * Cristine MANLEY KDOB: [birth year] (64 yo F)Acc No.[id number]:10/17/2024 Follow Up Patient: Cristine ALEJANDRE Provider: Aliya Dennis DO :1960 A ge:64 Y S ex:Female Date:10/17/2024 Address:[address] [place], [place] [address] Pcp:Celia Blank Check In:02:52 PM ESTCheck O ut:03:42 PM EST Subjective: * Chief Complaints: * F /U-6 MO. ASTHMA ([facility]) * HPI: G eneral: TRANSFER FROM [facility] PULMONOLOGY Patient was last seen @ [facility] Pulmonology 04/15/2024. She had benefit with Trelegy [...] for Asthma. Patient was seen by at [facility] Pulmonary and requested to transfer to [facility] Pulmonary. Patient admits to smoking 1PPD. 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 (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 of 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 Modified On:10/17/2024 [...] tiZANidine HCl 4 MG Tablet Oral Trelegy Ellipta(Hfrtntetttj-Edlfvtrth-Gxsxno) 200-62.5-25 MCG/ACT Aerosol Powder Breath Activated inhale [...] HCl 4 MG Tablet Oral Taking Trelegy Ellipta(Pwnvlsiucjp-Gqldubwbn-Chpasy) 200-62.5-25 MCG/ACT Aerosol Powder Breath Activated inhale [...] 03/04/2024 -FEV1/FVC: 73% -FEV1: 65% -FVC: 68% -HUB67-18%: 56% -Bronchodilator response: Partial -RV: 118% -T% [...] Reason: D rug declined by patient B ME ACTION PLAN Above Normal BMI Follow-up D ietary management education, guidance, and counseling * Follow Up: 6 Months * * Sign off status: Completed Visit Status: C HK (Check Out) true * Provider: Aliya Dennis DO Date: 10/17/2024 Generated for Darya santiago/Alda/eTransmitting on: 11/03/2024 04:56 AM EDT History and Physical Notes * HPI (History of Present Illness) Category Sub-Category Detail Notes Category Not es General Patient present s for a follow-up for Asthma. Patient was seen by at [facility] Pulmonary and requested to transfer to [facility] Pulmonary. Patient admits to smoking 1PPD. [...] APPEARANCE: Appears stated age Skin Normal Mouth [place] and moist Trachea Midline Chest Normal Respiratory Normal Movements, Ef fort Normal Auscultation Diminished with coar se breath sounds and expiratory wheezes Cardiac Regular rate and rhy thm Gastrointestinal Normal Vascular No edema Musculoskeletal Normal posture Neurological Focal, intact Psychiatric Alert and oriented x 3 Mentation/Cognition Normal Oropharynx Mallampati Class II
--- OUTSIDE RECORDS SUMMARY | 2024-10-18 07:30 | XMS_ITS ---
Author Organization [facility] Address [address] [place] [address] Care Team Providers Care Program Director Cable Television Name Role Phone Celia Blank M.D. Primary Care Provider Unavail able Aron Vancetamiko Unavailable [phone] RE[address]ON FOR VISIT lumbar CT myelogram review Medications Medication SIG (Take, Route, Fr equency, Duration) Notes Start Date End Date Status Trelegy Ellipta Acti ve PriLOSEC Active buPROPion Active tiZANidine Active HYDROcodone Active albuterol Active Problems Problem Type SNOMED Code ICD Code Onset Dates Problem Status W/U Status Risk Notes Problem 87459861 Lumbar stenosis with neurogenic claudication (M48.062) Active confirmed Problem 043555400 Neuroforaminal stenosis of lumbar spine (M48.061) Active confirmed Encounters Encounter Location Date Provider Diagnosis [facility] [address] [place] [address] 10/18/2024 Jose L Vance Degeneration of intervertebral disc of lumbar region with discogenic back pain M51.360 ; Lumbar stenosis with neurogenic claudication M48.062 and Neuroforaminal stenosis of lumbar spine M48.061 Assessments Encounter Date Diagnosis (ICD Code) Assessment Notes Treatment Notes Treatment Clinical Notes Section Notes 10/18/2024 Degeneration of intervertebral disc of lumbar region with discogenic back pain (ICD-10 - M51.360) 10/18/2024 Lumbar stenosis with neurogenic claudication (ICD-10 - M48.062) 10/18/2024 Neuroforaminal stenosis of lumbar spine (ICD-10 - M48.061) Plan Of Treatment Next Appt Details Follow Up: SCHEDULE SURGERY, Reason: Provider Name:Jose L Booker [facility], 02/04/2025 09:00:00 AM, [address] [facility], [place], [place], [id number], Progress Notes * KARLENE MANLEY KDOB: [birth year] (64 yo F)Acc No.[id number]:10/18/2024 Patient: KARLENE ALEJANDRE Provider: Jonathan Lee MD, PhD :1960 A ge:64 Y S ex:Female Date:10/18/2024 Address:[address] [place], [place] [id number] Pcp:Celia Blank M.D. Subjective: * Chief Complaints: * [address] myelogram review. * Medical History: * Medications: T aking albuterol , Taking Trelegy Ellipta , Taking PriLOSEC , Taking buPROPion , Taking tiZANidine , Taking HYDROcodone Objective: * Vitals: Assessment: * Assessment: 1. D egeneration of intervertebral disc of lumbar region with discogenic back pain - M51.360 (Primary) 2 . L umbar stenosis with neurogenic claudication - M48.062 ?3. N euroforaminal stenosis of lumbar spine - M48.061 Plan: * Treatment: * Follow Up: [facility] Forms: * Images: * Electronic signature of Jose Vance MD, PHD on 11/03/2024 at 04:56 AM EDT Sign off status: Pending * Provider: Jonathan Lee MD, PhD Date: 10/18/2024 Generated for Darya santiago/Alda/Chinmaysmitting on: 11/03/2024 04:56 AM EDT
--- OUTSIDE RECORDS SUMMARY | 2024-10-29 03:30 | XMS_ITS ---
Author Organization The [facility] in [place] Address [address] [place] [address] Care Team Providers Care Zoo Caretaker Name Role Phone Celia Blank Primary Care Provider Scott Cramer [phone] REASON FOR VISIT F/U-6 MO. ASTHMA ([facility]) Encounters Encounter Location Date Provider Diagnosis Pulmonary Medicine [address] [address] 10/29/2024 Scott Dennis Plan Of Treatment No Information Progress Notes * SINDHU Cristine KDOB: (64 yo F)Acc No.[id number]:10/29/2024 UNLOCKED PROGRESS NOTE Follow Up Patient: Cristine ALEJANDRE Provider: Aliya Dennis DO :1960 A ge:64 Y S ex:Female Date:10/29/2024 Address:[address] [place], [place] [id number] Pcp:Celia Blank Subjective: * Chief Complaints: * 1 . F/U-6 MO. ASTHMA ([facility]). * Medical History: Objective: * Vitals: Assessment: Plan: * Treatment: * * Electronic signature of Shilpa Dennis DO on 11/03/2024 at 04:56 AM EDT Sign off status: Pending Visit Status: R /S (Rescheduled) * Provider: Aliya Dennis DO Date: 10/29/2024 Generated for Printi ng/Faxing/eTransmitting on: 11/03/2024 04:56 AM EDT
[2024-11-03 04:55] VITALS: BP 158/84; PULSE 74; O2SAT 98; BMI 25.8
--- OUTSIDE RECORDS SUMMARY | 2024-11-03 04:56 | XMS_ITS | Patient Health Record ---
Author Organization [facility] in [place] Address [address] [place] [address] Care Team Providers Care Addiction Treatment Counselor Name Role Phone Celia Blank Primary Care Provider Scott Cramer [phone] Allergies Allergen (clinical drug ingredient) Drug/Non Drug Allergy documented on EMR Reaction Allergy Type Onset Date Status Levaquin rash Drug Allergy Active acetaminophen / oxycodone Percocet nausea and vomiting Drug Allergy Active Substance with sulfonamide structure and antibacterial mechanism of action (substance) Sulfa Antibiotics unknown Drug Allergy Active Reason For Referral No Information Medications Medication SIG (Take, Route, Frequency, Duration) [...] X 42 as directed Orally 10/17/2024 Active Immunizations Vaccine Route Administration Date Status Comme nts SARS-COV-2 (COVID 19 Pfizer 30mcg/0.3mL) Unknown 03/29/2021 Administered Social History Tobacco Use: Social History Observation Description Date Details (start date - stop date) Current Smoker NA - NA Tobacco Control (Standard) Question Answer Notes Tobacco use: Current every day smoker Additional Findings: Tobacco user Heavy cigarett e smoker (20-39 cigs/day) Problems Problem Type SNOMED Code ICD Code Onset Dates Problem Status W/U Status Risk Notes Problem Uncomplicated moderate persistent asthma (898670453) Moderate persistent asthma, uncomplicated (J45.40) Active confirmed Problem Long-term current use of inhaled steroid (814583336) custodial (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 of 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 (Z79.51) Active confirmed Problem Mental disorder caused by drug (632745740) Cigarette nicotine dependence with nicotine-induced disorder (F17.219) Active confirmed Problem Multiple pulmonary nodules (991095087) Multiple pulmonary nodules (R91.8) Active confirmed Vital Signs Heart Rate 80 /min 10/17/2024 Temperature 96.6 degrees Fahrenheit 10/17/2024 Respiratory Rate 18 /min 10/17/2024 Oximetry 95 % 10/17/2024 Blood pressure diastolic 67 mm Hg 10/17/2024 Height 67.0 in 10/17/2024 Blood pressure systolic 103 mm Hg 10/17/2024 Weight 171.8 lbs 10/17/2024 BMI 26.9 kg/m2 10/17/2024 Procedures Procedure Date Ordered Date Performed Result Body Sit e Smoking/Tobacco Counseling 3 min up to 10-performed 10/17/2024 10/17/2024 N/A Encounters Encounter Location Date Provider Diagnosis Pulmonary Medicine [address] [address] 10/17/2024 [facility] Moderate persistent asthma, uncomplicated J45.40 ; Cigarette nicotine dependence with nicotine-induced disorder F17.219 ; Multiple pulmonary nodules R91.8 ; custodial (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 of 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 Z79.51 and Encounter for screening for malignant neoplasm of respiratory organs Z12.2 Pulmonary Medicine [address] [address] [facility] [place] [address] [place] [address] 10/16/2024 [facility] Assessments Encounter Date Diagnosis (ICD Code) Assessment [...] LDCT screening which is due 03/2025. 10/17/2024 custodial (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 of 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 (ICD-10 - [...] abstinence. LDCT due 03/2025. Plan Of Treatment No Information Insurance Providers Payer Name Payer Address Payer Phone Subscriber Number Group Number Insured Name Patient Relationship to Insured Coverage Start Date Coverage End Date [place] [address] [place] [address] [id number] Cristine Manley Self - patient is the insured [employer] SU[employer]LEMENT [address] [address] [place] [address] [id number] Cristine Manley Self - patient is the insured Medical (General) History Medical History History ICD Code Moderate persistent asthma, uncomplicate d J45.40 Multiple pulmonary nodules R91.8 OA (osteoarthritis) M19.90 Cigarette nicotine dependence with nicot ine-induced disorder F17.219 Surgical History Surgery Date(Month/Year) oopherectomy tonsillectomy bunionectomy cataract-lens implants thoracic spine surgery
--- OUTSIDE RECORDS SUMMARY | 2024-11-03 04:56 | XMS_ITS | Patient Health Record ---
Author Organization [facility] Address [address] [place] [address] Care Team Providers Care Taxi Driver Supervisor Name Role Phone Celia Blank M.D. Primary Care Provider Unavail able Jose L Vance Unavailable [phone] xxSravani Traylor Unavailable Allergies Allergen (clinical drug ingredient) Drug/Non Drug Allergy documented on EMR Reaction Allergy Type Onset Date Status BIAXIN (uncoded) Unknown Allergy Act onesimo LEVAQUIN (uncoded) Unknown Allergy A ctive SULPHA (uncoded) Unknown Allergy Act onesimo Percocet Unknown Drug Allergy Active Results Component Value Reference Range Notes PT Reviewed date:08/20/2024 10:10:32 AM Interpretation: Performing Lab: Notes/Report: [place] [id number] [place] [address] PT 10.4 10.2-12.9 seconds INR 0.9 <=3.5 ratio INR has no normal range. INR Therapeutic range is: 2.0-3.0 (AF, CVA, TIAs, DVT prophylaxis, acute DVT) 2.5-3.5 ([facility] heart valves, recurrent thrombosis/emboli) Platelet Count Reviewed date:08/20/2024 10:10:32 AM Interpretation: Performing Lab: Notes/[place]: [place] [address] [place] [address] Platelet 313 150-450 x10*3/mcL PTT Reviewed date:08/20/2024 10:10:32 AM Interpretation: Performing Lab: Notes/Report: [place] [address] [facility] PTT 30.8 25.1-36.[address] Spine Lumbar Myelogram w/ Contrast Reviewed date:09/19/2024 11:52:34 AM Interpretation: Performing Lab: Notes/Report: Patient Name: Karlene Manley CLINICAL HISTORY: Pain and radiculopathy. XR Myelography Lumbosacral S micky Reviewed date:08/20/2024 10:10:32 AM Interpretation: Performing Lab: Notes/Report: Patient Name: Karlene Manley CLINICAL HISTORY: Radiculopathy. Reason For Referral Reason NO AUTH REQ......... ......................NOT SCHEDULED....................................[facility] ct lumbar myelogram to be done at [facility] Diagnosis 1 Retrolisthesis (M43. 10) Referral Organization [facility] Referring Provider First Name Jose L Referring Provider Last Name Pinky Referring Provider [facility] Orthopedic Surgery Referred Organization [facility] Scheduling Procedure 1 CT lumbar spine; W/ contrast material (67226) General Notes Luiza Camilo 2024 10:01:53 AM >, Amira Bradford 07/12/2024 10:13:12 AM > MYELOGRAM OF WHAT PART?, Luiza Camilo 07/12/2024 11:00:16 AM >Sanchez BOCANEGRA Kayla 07/12/2024 11:03:14 AM > THANK YOU, MEDICARE PARTS A & B ACTIVE AND EFFECTIVE 01/09/24 PER [facility] WITH [facility] Branch SECONDARY. NO AUTHORIZATION REQUIRED. FAXED TO [facility].Leslee Dawn 07/12/2024 01:28:10 PM >[facility] DOES NOT DO CT MYELOGARM, SO PATIENT WOULD LIKE TO GO TO [facility]. ORDER FAXED, Rozina Cruz 07/12/2024 02:45:10 PM > Referral Priority Routine Medications Medication SIG (Take, Route, Fr equency, Duration) Notes Start Date End Date Status albuterol Active Trelegy Ellipta Acti ve PriLOSEC Active buPROPion Active tiZANidine Active HYDROcodone Active Social History Tobacco Use: Social History [...] Problem Status W/U Status Risk Notes Problem 398964477913591 Spondylolisthesi s, lumbar region (M43.16) Active confirmed Problem 9551461 Radiculopathy, lumbosacral region (M54.17) Active confirmed Problem 83526081 Lumbar stenosis with neurogenic claudication (M48.062) Active confirmed Problem 038523387 Neuroforaminal stenosis of lumbar spine (M48.061) Active confirmed Vital Signs Height 5'7 in 07/12/2024 Weight 176 lbs 07/12/2024 BMI 27.56 07/12/2024 Encounters Encounter Location Date Provider Diagnosis [facility] Office [address] [place] [address] 10/18/2024 Selvon Pinky Degeneration of intervertebral disc of lumbar region with discogenic back pain M51.360 ; Lumbar stenosis with neurogenic claudication M48.062 and Neuroforaminal stenosis of lumbar spine M48.061 [facility] Office [address] [facility] [address] [place] [address] 07/12/2024 [facility] Spondylolisthesis, lumbar region M43.16 and Radiculopathy, lumbosacral region M54.17 Assessments Encounter Date Diagnosis (ICD Code) Assessment Notes Treatment Notes Treatment Clinical Notes Section Notes 07/12/2024 Spondylolisthesis , lumbar region (ICD-10 - M43.16) 1. Prior T12-L1 left hemilaminectomy and facetectomy 2. L1 on 2 spondylolisthesis 3. L5-S1 radiculopathy 07/12/2024 Radiculopathy, lumbosacral region (ICD-10 - M54.17) 1. Prior T12-L1 left hemilaminectomy and facetectomy 2. L1 on 2 spondylolisthesis 3. L5-S1 radiculopathy 10/18/2024 Lumbar stenosis with neurogenic claudication (ICD-10 - M48.062) 10/18/2024 Degeneration of intervertebral disc of lumbar region with discogenic back pain (ICD-10 - M51.360) 10/18/2024 Neuroforaminal stenosis of lumbar spine (ICD-10 - M48.061) 07/12/2024 Other For the patient's symptoms of her bilateral lower legs, left greater than right I discussed with her that they are in the S1 pattern and we do not have advanced imaging of this. She does have an EMG study showing radiculopathy at L5-S1. I am going to order a CT myelogram of the lumbar spine to further evaluate for neural compression. We will see patient back in the office after imaging is complete to review and offer further recommendations . The patient is very much in agreement with the treatment and/or diagnostic plan set forth and all questions were answered to the patient's satisfaction. Thanks once again. If we can be of further service to your patients with disorders of the spine, cervical, thoracic, or lumbar, please do not hesitate to contact Dr. Lee. Best regards, 1. Prior T12-L1 left hemilaminectomy and facetectomy 2. L1 on 2 spondylolisthesis 3. L5-S1 radiculopathy Plan Of Treatment Pending Test Test Name Order Date CT Myelogram - Lumbar Spine 07/12/2024 Next Appt Details Provider Name:Jose L Severino, 02/04/2025 09:00:00 AM, [facility], [place], [place], [id number], Insurance Providers Payer Name Payer Address Payer Phone Subscriber Number Group Number Insured Name Patient Relationship to Insured Coverage Start Date Coverage End [place] [address] [place] [address] [id number] KARLENE MANLEY Self - patient is the insured [employer] [address] [address] [place] [address] [id number] KARLENE MANLEY Self - patient is the insured 5 Medical (General) History Medical History History ICD Code Asthma/Emphysema/Wheezing: Yes COPD: : Yes CPAP Machine:: No Healthcare worker: No Latex Allergy: No Osteoporosis: Yes Ovarian Cysts: Yes Sciatica: Yes Stomach ulcers: Yes Have you been in close conta ct with someone who has had MRSA within the last year?: No Have you ever had or presently have MRSA ?: No Have you been seen by a dentist in the l ast year?: Yes Do you have any dental probl ems i.e. Broken, loose, or chipped teeth, absess, gum disease?: No Surgical History Surgery Date(Month/Year) Bunionectomy Ovaries removed Tonsillectomy Back surgery T12/L1 Hospitalization History Reason Date(Month/Year) Ovaries Removed Back surgery Kidney infection
--- OUTSIDE RECORDS SUMMARY | 2024-11-03 04:57 | XMS_ITS | Clinical Summary ---
Author Organization [facility] Address [address] [place] [address] Care Team Providers Care Automobile Painter Name Role Phone Celia Blank MD Primary Care Provider [phone] Allergies Active Allergy Reactions Criticality Noted Date Comments Levofloxacin Unknown 03/11/2010 Quinolones Unknown 01/18/2011 Sulfa (Sulfonamide Antibiotics) Unknown 05/2009 Medications fluticasone-yessi meterol (ADVAIR DISKUS) 250-50 mcg/dose INHALATION DsDvIndications :Hypothyroidism ,Burning pain,Neck swelling,Neck stiffness,Short ness of breath,History of smoking,Disturb ance of skin sensation Uses once daily 0 0 Active omeprazole (PRILOSEC) 20 mg ORAL capsuleIndicati ons:Hypothyroid ism,Burning pain,Neck swelling,Neck stiffness,Short ness of breath,History of smoking,Disturb ance of skin sensation Take one(1) capsule daily. 0 0 Active tizanidine (ZANAFLEX) 4 mg ORAL tablet Take 4 mg by mouth every 8 hours as needed. 0 6 Active amitriptyline 25 mg ORAL tablet Take 1 tablet by mouth daily at bedtime. 0 1 Active diclofenac potassium (CATAFLAM) 50 mg tablet Take 50 mg by mouth twice daily. Active HYDROcodone-yisel taminophen (NORCO) 5-325 mg per tablet Take 1 tablet by mouth every 6 hours as needed. Active albuterol HFA (PROAIR HFA) 90 mcg/actuation inhaler Inhale 2 Puffs as instructed every 4 hours as needed. Active fluticasone-yessi meterol (ADVAIR DISKUS) 250-50 mcg/dose dsdv Inhale 1 Puff as instructed twice daily. Active Active Problems No known active problems Family History Medical History Relation Comments Heart Brother 1 CHF Hypertension Brother 1 Hypertension Brother 2 Cancer Father Lungs (unsure of primary) Tremor [Other] Father Arthritis Mother Coronary Artery Disease Mother Diabetes Mother dementia [Other] Mother Relation Status Comments Brother 1 Brother 2 Father Mother Social History Tobacco Use Types Packs/Day Years Used Date Smoking Tobacco: Every Day Cigarettes 1 45 Smokeless Tobacco: Never Alcohol Use Standard Drinks/Week Comments No 0 (1 standard drink = 0.6 oz pur e alcohol) quit 30 years prior Comments No Sex and Gender Information Value Date Recorded Sex Assigned at Not on file Legal Sex Female 8:33 AM EST Gender Identity Not on file Sexual Orientation Not on file Last Filed Vital Signs Vital Sign Reading Time Taken Comments Blood Pressure 116/72 03/09/2016 1:14 PM EST Pulse 75 03/09/2016 1:14 PM EST Temperature - - Respiratory Rate 16 03/09/2016 1:14 PM EST Oxygen Saturation 96% 03/09/2016 1:14 PM EST Inhaled Oxygen Concentration - - Weight 78.5 kg (173 lb) 03/09/2016 1:14 PM EST Height 170.2 cm (5' 7 ) 03/09/2016 1:14 PM EST Body Mass Index 27.1 03/09/2016 1:14 PM EST Plan of Treatment Health Maintenance Due Date Last Done Comments Anxiety Screening 1977 Depression Screening 1977 Hepatitis C Screening 1977 DTaP,Tdap,Td Vaccine (1 - Tdap) [address] Colonography 01/22/2004 Cologuard (FIT-DNA) 01/22/2004 Colonoscopy 01/22/2004 Colorectal Cancer Screening 01/22/2004 Fecal Occult Blood 01/22/2004 Lipid Screening 01/22/2004 Sigmoidoscopy 01/22/2004 Pneumococcal Vaccine: 50+ (1 of 1 - PCV) 2009 Shingrix Vaccine (1 of 2) 2009 Diabetes Screening 03/11/2013 03/11/2010, 03/11/2010 Covid-19 Vaccine ( season) 2023 Bone Density Screening 01/22/2024 Advance Directive Discussion 04/10/2024 Influenza Vaccine (#1) 2024 RSV Vaccine (1 - 1-dose 75+ series) 2034 HIV Screening Completed 03/11/2010 Procedures Procedure Name Priority Date/Time Associated Diagnosis Comments HIV 1/2 COMBO WITH REFLEX TO DIFFERENTIATION Routine 03/11/2010 3:48 PM EST Burning pain Hypothyroidism Neck swelling Neck stiffness Shortness of breath History of smoking Disturbance of skin sensation COMPREHENSIVE METABOLIC PANEL Routine 03/11/2010 3:48 PM EST Hypothyroidism Burning pain Neck swelling Neck stiffness Shortness of breath History of smoking Disturbance of skin sensation from Last 3 Months or Most Recently Relevant to Health Maintenance Results * HIV AB 1&2 SCREEN (03/11/2010 3:48 PM EST) [facility] HIV 1 & 2 Ab (EIA) Non Reactive NR [facility] Comment: If results are indeterminate or otherwise inconsistent with an individual's clinical presentation or risk profile for HIV infection a repeat specimen is requested. A repeat specimen is also recommended for any individual identified positive for the first time. Blood specimen (specimen) BLOOD SPECIMEN / Unknown 03/11/2010 3:48 PM EST 03/11/2010 5:06 PM EST Les Drew MD LABORATORY Final Result Performing Organization Address City/State/[facility] Co de Phone Number [facility] [address] [facility] [place] [address] * COMP METABOLIC PANEL (03/11/2010 3:48 PM EST) [facility] Protein, Total 6.8 6.0 - 8.4 g/dL [facility] Albumin 4.7 3.5 - 5.0 g/dL [facility] Calcium 9.8 8.5 - 10.5 mg/dL [facility] Bilirubin, Total 0.3 0.0 - 1.5 mg/dL [facility] Alkaline Phosphatase 75 40 - 150 U/L [facility] AST 15 7 - 40 U/L [facility] Glucose 78 65 - 100 mg/dL [facility] BUN 17 8 - 25 mg/dL [facility] Creatinine 0.94 0.70 - 1.40 mg/dL [facility] Sodium 142 132 - 148 mmol/L [facility] Potassium 4.8 3.5 - 5.0 mmol/L [facility] Chloride 105 98 - 110 mmol/L [facility] CO2 27 23 - 32 mmol/L [facility] Anion Gap 10 0 - 15 mmol/L [facility] ALT 15 0 - 45 U/L [facility] eGFR- >60 [facility] eGFR-All Other Races >60 . [facility] Comment: eGFR (Estimated GFR) Units of measure: mL/min/1.73 meters squared eGFR is derived from the reexpressed MDRD Study equation using the following parameters: serum creatinine, age, gender and race. The creatinine assay has been calibrated to be traceable to IDMS. An eGFR <60 mL/min/1.73m2 for >3 months is consistent with chronic kidney disease. Refer to KDOQI guidelines for clinical interpretation. Blood specimen (specimen) BLOOD SPECIMEN / Unknown 03/11/2010 3:48 PM EST 03/11/2010 5:06 PM EST us Les Drew MD LABORATORY Final Result [facility] [address] [facility] [place] [address] from Last 3 Months or Most Recently Relevant to Health Maintenance Care Teams Automobile Painter Relationship Specialty Start Date End Date Celia Blank MD [address] [place] [address] PCP - General Family Medicine 03/09/10
--- OUTSIDE RECORDS SUMMARY | 2024-11-03 04:57 | XMS_ITS | Clinical Summary ---
Author Organization [facility] Address [address] [place] [address] Care Team Providers Care Mixing And Molding Machine Operator Name Role Phone Celia Blank MD Primary Care Provider [phone] Ofelia Arceo MD Unavailable Geoff Walker DO Unavailable [phone] Allergies Active Allergy Reactions Criticality Noted Date Comments Alendronate 03/29/2024 Other Reaction(s): Hives, Muscle pain Clarithromycin 03/29/2024 Other Reaction(s): Hives, Unknown Lactobacillus 06/05/2024 Other Reaction(s): Unknown Oxycodone-Acetaminophen Nausea Only 06/05/2024 Quinolones Rash Low 03/11/2010 Other Reaction(s): Hives, Other (See Comments), Unknown, Unknown Sulfa Antibiotics 03/11/2010 Other Reaction(s): Other (See Comments), Unknown Medications albuterol (2.5 MG/3ML) 0.083% nebulizer solution INHALE 3ml via NEBULIZER FOUR TIMES DAILY NEEDED SHORTNESS OF BREATH and FOR WHEEZING Active albuterol HFA 90 mcg/act inhaler Inhale 2 puffs every 4 (four) hours if needed Active buPROPion XL (Wellbutrin XL) 150 MG 24 hr tablet Take 150 mg by mouth Daily 4 Active Fluticasone-Malachi meterol 250-50 MCG/ACT aerosol powder Inhale 1 puff Active tiZANidine (Zanaflex) 4 MG tablet Take 4 mg by mouth in the morning and 4 mg in the evening and 4 mg before bedtime. Active omeprazole (PriLOSEC) [address] capsule Oral Active HYDROcodone-yisel taminophen ([place]) 5-325 MG tablet Take 1 tablet by mouth in the morning and 1 tablet in the evening and 1 tablet before bedtime. Active Resolved Problems Problem Noted Date Diagnosed Date Resolved Date Asthma 06/05/2024 06/05/2024 Bilateral knee pain 06/05/2024 06/05/19 25 BMI 27.0-27.9,adult 06/05/2024 06/05/19 Chronic back pain 06/05/2024 06/05/2024 Chronic GERD 06/05/2024 06/05/2024 Chronic obstructive pulmonar y disease, unspecified 06/05/2024 06/05/2024 Cigarette nicotine dependenc e with nicotine-induced disorder 06/05/2024 06/05/2024 Depression 06/05/2024 06/05/2024 Early satiety 06/05/2024 06/05/2024 Epigastric pain 06/05/2024 06/05/2024 Headache 06/05/2024 06/05/2024 Joint pain 06/05/2024 06/05/2024 FDC (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 of 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 06/05/2024 06/05/2024 Lumbar radiculopathy, chronic 06/05/2024 06/05/2024 Menopause 06/05/2024 06/05/2024 Moderate persistent asthma, uncomplicated 06/05/2024 06/05/2024 Osteoarthritis of right wrist 06/05/2024 06/05/2024 Osteopenia 06/05/2024 06/05/2024 Pain in posterior right lower extremity 06/05/2024 06/05/2024 Primary osteoarthritis of both knees 06/05/2024 06/05/2024 Rib fracture 06/05/2024 06/05/2024 Right thyroid nodule 06/05/2024 025 Encounter for immunization 06/05/2024 0 06/05/2024 Tick bite 06/05/2024 06/05/2024 Tobacco user 06/05/2024 06/05/2024 Very low density lipoprotinemia 06/05/2024 06/05/2024 Immunizations Immunization Administration Dates Next Due DTaP, Unspecified 10/07/2018 Pfizer Purple Cap SARS-CoV-2 Vaccination 021,08/11/2020,07/21/2020 Td (adult), 5 Lf tetanus tox oid, preservative free, adsorbed 02/05/2014 Social History Tobacco Use Types Packs/Day Years Used Date Smoking Tobacco: Every Day Cigarettes Smokeless Tobacco: Never Tobacco Cessation:Ready to Q uit: Not Asked; Counseling Given: Not Answered Alcohol Use Standard Drinks/Week Comments Not Currently 0 (1 standard drink = 0.6 oz pur e alcohol) Comments Unknown Sex and Gender Information Value Date Recorded Sex Assigned at Not on file Legal Sex Female 6:39 PM EDT Gender Identity Not on file Sexual Orientation Not on file Last Filed Vital Signs Vital Sign Reading Time Taken Comments Blood Pressure - - Pulse - - Temperature - - Respiratory Rate - - Oxygen Saturation - - Inhaled Oxygen Concentration - - Weight 80.3 kg (177 lb) 06/05/2024 2:11 PM EST Height 170.2 cm (5' 7 ) 06/05/2024 2:11 PM EST Body Mass Index 27.72 06/05/2024 2:11 PM EST Plan of Treatment Upcoming Encounters Date Type Department Care Team (Late st Contact Info) Description 06/10/2025 8:45 AM EST Office Visit [facility] [address] [place] [id number] Geoff Walker, [address] [facility] [place] [address] Health Maintenance Due Date Last Done Comments CT Colonography 1959 FIT-DNA 1959 FIT 1959 FOBT 1959 Sigmoidoscopy 1959 Pap Smear 01/22/1980 Cervical Cancer Screening 1989 HPV/Cotest 1989 Mammogram 1999 Pneumococcal Vaccine: 65+ Years (1 of 1 - PCV) 009 Influenza Vaccine (#1) 2024 Colonoscopy 01/13/2032 01/12/2022 Colorectal Cancer Screening 01/13/2032 Insurance MEDICARE GENERIC OTHER Care Teams Mixing And Molding Machine Operator Relationship Specialty Start Date End Date Celia Blank MD PCP - General Family Medicine 03/27/24 Ofelia Arceo MD [address] [place] [address] Referring Physician Internal Medicine 03/27/24 Geoff Walker DO [address] [place] [address] Otolaryngology 06/05/24
--- OUTSIDE RECORDS SUMMARY | 2024-11-03 04:57 | XMS_ITS | Clinical Summary ---
Author Organization [facility] tem Address [facility] [place]-[id number] [address] [place] [address] Care Team Providers Care Marina Manager Name Role Phone Celia Blank MD Primary Care Provider [phone] Allergies Active Allergy Reactions Criticality Noted Date Comments Levofloxacin 10/01/2024 Oxycodone-Acetaminophen 10/01/2024 Sulfa (Sulfonamide Antibiotics) 09/09 Medications HYDROcodone-ibu profen (VICOPROFEN) 5-200 mg per tablet Take 1 tablet by mouth every 8 (eight) hours as needed for pain. Max Daily Amount: 3 tablets Active tiZANidine (ZANAFLEX) 4 mg tablet Take 1 tablet (4 mg total) by mouth every 6 (six) hours as needed for muscle spasms. Active omeprazole (PriLOSEC) 20 mg capsule Take 1 capsule (20 mg total) by mouth in the morning. Active fluticasone-ume clidin-vilanter (TRELEGY ELLIPTA) 100-62.5-25 mcg blister with device Inhale 1 puff in the morning. Active albuterol (PROVENTIL HFA;VENTOLIN HFA) 90 mcg/actuation inhaler Inhale 2 puffs every 6 (six) hours as needed for wheezing. Active buPROPion SR (WELLBUTRIN SR) 150 mg 12 hr tablet Take 2 tablets (300 mg total) by mouth in the morning and 2 tablets (300 mg total) before bedtime. Active Encounters Date Type Department Care Team Description 10/01/2024 7:13 AM EDT - 10/01/2024 11:16 AM EDT Emergency [facility] - Emergency [address] [address] Carmen Alfred, Pancolitis ([facility]) (Primary Dx); Abnormal computed tomography of abdomen and pelvis; Diarrhea, unspecified type Discharge Disposition: Home 10/01/2024 Travel from Last 3 Months Social History Tobacco Use Types Packs/Day Years Used Date Smoking Tobacco: Never Assessed Childcare Answer Date Recorded Childcare Unknown 09/19/2018 Employment Answer Date Recorded Employment Unknown 09/19/2018 Hunger Screening Answer Date Recorded Within the past 12 months we worried whether our food would run out before we got money to buy more. Never True 10/01/2024 Within the past 12 months th e food we bought just didn't last and we didn't have money to get more. Never True 10/01/2024 Comments Unknown Sex and Gender Information Value Date Recorded Sex Assigned at Not on file Legal Sex Female 12:10 PM EDT Gender Identity Not on file Sexual Orientation Not on file Last Filed Vital Signs Vital Sign Reading Time Taken Comments Blood Pressure 133/76 10/01/2024 10:30 AM EDT Pulse 73 10/01/2024 9:59 AM EDT Temperature 36.9 C (98.5 F) 10/01/2024 7:26 AM EDT Respiratory Rate 16 10/01/2024 8:45 AM EDT Oxygen Saturation 96% 10/01/2024 10:30 AM EDT Inhaled Oxygen Concentration - - Weight 76.7 kg (169 lb) 10/01/2024 7:26 AM EDT Height 170.2 cm (5' 7 ) 10/01/2024 7:26 AM EDT Body Mass Index 26.47 10/01/2024 7:26 AM EDT Plan of Treatment Health Maintenance Due Date Last Done Comments Depression Screening 1971 Tobacco Screening 1971 Adult BMI Follow Up Plan 1977 Zoster (Shingles) Vaccine (1 of 2) 2009 COVID-19 Vaccine (2023-2 5 season) 2023 03/29/2021, 08/11/2020, 07/21/2020 Fall Risk Screening 01/22/2024 Influenza Vaccine 12/09/2024 Adult BMI Screening 10/01/2025 10/01/2024 DTaP,Tdap and Td Vaccines (3 - Td or Tdap) 10/07/2028 10/07/2018, 02/05/2014 Medical Devices Not on file Procedures Procedure Name Priority Date/Time Associated Diagnosis Comments C DIFFICILE BY PCR Routine 10/01/2024 10 :49 AM EDT GI PANEL STOOL PATHOGEN PANEL Routine 10/01/2024 10:49 AM EDT POCT NURSING URINE MACROSCOPIC UA Routine 10/01/2024 9:27 AM EDT ER EXTRA URINE MARBLE STAT 10/01/2024 9:16 AM EDT ER EXTRA URINE CULTURE STAT 9:16 AM EDT ER EXTRA URINE STAT 10/01/2024 9:[address] ABDOMEN AND PELVIS W CONT STAT 10/01/2024 8:27 AM EDT EXTRA TUBES BLUE TOP Routine 10/01/2024 7:38 AM EDT EXTRA TUBES Routine 10/01/2024 7:38 AM EDT MAGNESIUM STAT 10/01/2024 7:38 AM EDT LIPASE STAT 10/01/2024 7:38 AM EDT COMPREHENSIVE METABOLIC PANEL STAT 10/01/2024 7:38 AM EDT CBC WITH AUTO DIFFERENTIAL STAT 10/01/2024 7:38 AM EDT from Last 3 Months Results * (ABNORMAL) GI Panel(stool pathogen panel) (10/01/2024 10:49 AM EDT) CAMPYLOBACTER Detected(A) Not Detected 10/01/2024 3:31 PM [facility] Comment:Detects the followin g: C. jejuni, C. coli, C. upsaliensis. PLESIOMONAS Not Detected Not Detected 10/[facility]/2024 [facility] SALMONELLA Not Detected Not Detected 10/01/2024 3:31 PM [facility] VIBRIO Not Detected Not Detected 10/01/2024 3:[facility] VIBRIO CHOLERAE Not Detected Not Detected 10/01/2024 3:31 PM [facility] Y. ENTEROCOLITICA Not Detected Not Detected 10/01/2024 3:31 PM [facility] AGGREGATIVE E COLI Not Detected Not Detected 10/01/2024 3:31 PM [facility] PATHOGENIC E COLI Detected(A) Not Detected 10/01/2024 3:31 PM [facility] Comment:Enteropathogenic Esc herichia coli TOXIGENIC E COLI Not Detected Not Detected 10/01/2024 3:31 PM [facility] SHIGA TOXIN E COLI Not Detected Not Detected 10/01/2024 3:31 PM [facility] SHIGELLA-E COLI Not Detected Not Detected 10/01/2024 3:31 PM [facility] CRYPTOSPORIDIUM Not Detected Not Detected 10/01/2024 3:31 PM [facility] CYCLOSPORA Not Detected Not Detected 10/01/2024 3:31 PM [facility] E HISTOLYTICA Not Detected Not Detected 10/01/2024 3:31 PM [facility] GIARDIA LAMBLIA Not Detected Not Detected 10/01/2024 3:31 PM [facility] ADENOVIRUS Not Detected Not Detected 10/01/2024 3:31 PM [facility] ASTROVIRUS Not Detected Not Detected 10/01/2024 3:31 PM [facility] NOROVIRUS Not Detected Not Detected 10/01/2024 3:31 PM [facility] ROTAVIRUS A Not Detected Not Detected 10/01/2024 3:31 PM [facility] SAPOVIRUS Not Detected Not Detected 10/01/2024 3:31 PM EDT [facility] Stool Feces / Unknown Collection / Unknown 10/01/2024 10:49 AM EDT 10/01/2024 10:52 AM EDT Carmen Raineykhatib DO BODY FLUIDS AND STOOLS ORDER CASSANDRA Final Result Performing Organization Address [facility]/ZIP Co de Phone Number [facility] [address] [place] [address], [place] [phone] * C difficile by PCR (10/01/2024 10:49 AM EDT) Pathologist [facility] TOXIGENIC C DIFF Negative Negative 10/02/19 2:44 PM EDT [facility] 027 [id number] Presumptive Negative Presumptive Negative 10/01/2024 2:44 PM EDT [facility] Comment:Assay methodology is nucleic acid amplification by real-time PCR for detection of C. difficile toxin gene sequences performed on [employer] Instrument System. Stool Feces / Unknown Collection / Unknown 10/01/2024 10:49 AM EDT 10/01/2024 10:52 AM EDT Carmen Alfred DO BODY FLUIDS AND STOOLS ORDER CASSANDRA Final Result Performing Organization Address City/[facility] Co de Phone Number [facility] [address] [place] [address], [place] [phone] * (ABNORMAL) POCT Nursing Urine Macroscopic UA (10/01/2024 9:27 AM EDT) POC Urine Specific [place] <=1.005(A) 1.010, 1.015, 1.020, 1.025 10/01/2024 9:21 AM EDT [facility] POC Urine Leukocyte Esterase Negative Negative 10/01/2024 9:21 AM EDT [facility] POC Urine Nitrite Negative Negative 10/01/2024 9:21 AM EDT [facility] POC Urine pH 6.0 5.0, 6.0, 6.5, 7.0, 7.5, 8.0, 8.5, 5.5 10/01/2024 9:21 AM EDT [facility] POC Urine Protein Trace(A) Negative 10/01/2024 9:21 AM EDT [facility] POC Urine Glucose Negative Negative 10/01/2024 9:21 AM EDT [facility] POC Urine Ketones Negative Negative 10/01/2024 9:21 AM EDT [facility] POC Urine Urobilinogen 0.2 E.U./dL 10/01/2024 9:21 AM EDT [facility] POC Urine Bilirubin Negative Negative 10/01/2024 9:21 AM EDT [facility] POC Urine Blood/HGB Moderate(A) Negative 10/01/2024 9:21 AM EDT [facility] Urine 10/01/2024 9:27 AM EDT 10/01/2024 9:21 AM EDT us Carmen Alfred DO POINT OF CARE TEST ORDERABLE S Final Result Performing Organization Address [facility] Co de Phone Number [address] [place] [address], [place] * Extra Urine [place] (10/01/2024 9:16 AM EDT) Extra Tube Auto Resulted 10/01/2024 11:01 AM EDT [facility] Urine Urine specimen collection, clean catch / Unknown 10/01/2024 9:16 AM EDT 10/01/2024 9:41 AM EDT us Carmen Alfred DO URINE ORDERABLES Final Resul t Performing Organization Address [facility] Co de Phone Number [address] [place] [address], [place] * Extra Urine Culture (10/01/2024 9:16 AM EDT) Extra Tube Auto Resulted 10/01/2024 11:01 AM EDT [facility] Urine Urine specimen collection, clean catch / Unknown 10/01/2024 9:16 AM EDT 10/01/2024 9:41 AM EDT us Miladjarod Alfred DO URINE ORDERABLES Final Resul t Performing Organization Address [facility] de Phone Number [address] [place] [address], [place] * Extra Urine (10/01/2024 9:16 AM EDT) Extra Tube Auto Resulted 10/01/2024 11:01 AM EDT [facility] Urine Urine / Unknown 10/01/2024 9 :16 AM EDT 10/01/2024 9:41 AM EDT us Carmen Alfred DO URINE ORDERABLES Final Resul t Performing Organization Address [facility] de Phone Number [address] [place] [address], [place] * CT abdomen and pelvis with contrast (10/01/2024 8:27 AM EDT) Anatomical Region Laterality Modality Body, Abdomen, Body Covera N/A Compu shant Tomography 10/01/2024 8:34 AM EDT Narrative 10/01/2024 8:[address] ABDOMEN AND PELVIS W CONT CLINICAL HISTORY:pain COMPARISON: None. TECHNIQUE: CT abdomen and pelvis was performed utilizing the standard protocol following the uneventful administration of 100 cc Omnipaque 300 nonionic intravenous contrast. Coronal and sagittal reformatted images were generated and reviewed. Automated exposure control was utilized. FINDINGS: No significant findings lower thorax. Unremarkable liver, gallbladder, spleen, adrenal glands, pancreas. Normal left kidney. Area of renal parenchymal volume loss right interpolar kidney, associated dystrophic calcification, 0.6 cm. Moderate severe atherosclerotic disease abdominal aorta. No acute appearing occlusion of the major visceral vasculature. Diffuse wall thickening, mucosal hyperenhancement, hyperemia involving the entire large bowel. Appendectomy. No free fluid or fluid collections. Nodular lesion left aspect of the bladder, 2.3 cm; no transmural extension seen. No aggressive osseous lesions. Degenerative changes lower lumbar spine. IMPRESSION: 1. Pancolitis, suspect infection, please correlate clinically. Inflammatory bowel disease, such as ulcerative colitis, is possible as well. 2. Nodular lesion left aspect of the urinary bladder, 2.3 cm, suspect neoplasm, circumscribed morphology raises possibility for benign process, such as leiomyoma [diagnosis of exclusion]. THIS REPORT CONTAINS A SIGNIFICANT RESULT AND/OR RECOMMENDATION, WHICH REQUIRES THE ATTENTION OF THE LICENSED CAREGIVER RESPONSIBLE FOR THIS PATIENT. THEREFORE, I SPECIFICALLY DESIGNATED THIS REPORT TO BE TELEPHONED BY THE RADIOLOGY DEPARTMENT. FINDINGS WERE INSTRUCTED TO BE CALLED TO THE CLINICAL SERVICE ON 10/01/2024 8:[address] scans at this facility use dose modulation, iterative reconstruction, and/or weight based dosing when appropriate to reduce radiation dose to as low as reasonably achievable. Finalized by Chico Cordova MD on 10/01/2024 8:37 AM Procedure Note Chico Cordova MD - 10/01/2024 CT ABDOMEN AND PELVIS W CONT CLINICAL HISTORY:pain COMPARISON: None. TECHNIQUE: CT abdomen and pelvis was performed utilizing the standardprotocol following the uneventful administration of 100 cc Omnipaque 300nonionic intravenous contrast. Coronal and sagittal reformatted imageswere generated and reviewed. Automated exposure control was utilized. FINDINGS: No significant findings lower thorax. Unremarkable liver, gallbladder,spleen, adrenal glands, pancreas. Normal left kidney. Area of renal parenchymal volume loss right interpolar kidney, associateddystrophic calcification, 0.6 cm. Moderate severe atherosclerotic diseaseabdominal aorta. No acute appearing occlusion of the major visceralvasculature. Diffuse wall thickening, mucosal hyperenhancement, hyperemia involving theentire large bowel. Appendectomy. No free fluid or fluid collections. Nodular lesion left aspect of the bladder, 2.3 cm; no transmural extensionseen. No aggressive osseous lesions. Degenerative changes lower lumbar spine. IMPRESSION: 1. Pancolitis, suspect infection, please correlate clinically.Inflammatory bowel disease, such as ulcerative colitis, is possible aswell. 2. Nodular lesion left aspect of the urinary bladder, 2.3 cm, suspectneoplasm, circumscribed morphology raises possibility for benign process,such as leiomyoma [diagnosis of exclusion]. THIS REPORT CONTAINS A SIGNIFICANT RESULT AND/OR RECOMMENDATION, WHICHREQUIRES THE ATTENTION OF THE LICENSED CAREGIVER RESPONSIBLE FOR THISPATIENT. THEREFORE, I SPECIFICALLY DESIGNATED THIS REPORT TO BE TELEPHONED BY THERADIOLOGY DEPARTMENT. FINDINGS WERE INSTRUCTED TO BE CALLED TO THE CLINICAL SERVICE ON 58:[address] scans at this facility use dose modulation, iterativereconstruction, and/or weight based dosing when appropriate to reduceradiation dose to as low as reasonably achievable. Finalized by Chico Cordova MD on 10/01/2024 8:37 AM us Carmen Alfred DO IMG CT ORDERABLES Final Resu lt * Light Blue Top (10/01/2024 7:38 AM EDT) Extra Tube Auto Resulted 10/01/2024 9:01 AM EDT [facility] Blood Venous blood / Unknown 10/01/2024 7:38 AM EDT 10/01/2024 7:42 AM EDT us Carmen Alfred DO LAB BLOOD ORDERABLES Final R esult [facility] [address] [place] [address], [place] * (ABNORMAL) CBC auto differential (10/01/2024 7:38 AM EDT) WBC 9.3 4 - 11 x10E9/L 10/01/2024 7:50 AM EDT [facility] RBC Count 4.74 3.8 - 5.2 X10E12/L 10/01/2024 7:50 AM EDT [facility] Hemoglobin 14.1 11.7 - 15.5 g/dL 10/01/2024 7:50 AM EDT [facility] Hematocrit 41.7 35 - 47 % 10/01/2024 7:50 AM EDT [facility] MCV 88 80 - 100 fL 10/01/2024 7:50 AM EDT [facility] MCH 29.8 27 - 34 pg 10/01/2024 7:50 AM EDT [facility] MCHC 33.9 32 - 36 g/dL 10/01/2024 7:50 AM EDT [facility] RDW 13.2 11.5 - 15 % 10/01/2024 7:50 AM EDT [facility] Platelet Count 376 150 - 450 X10E9/L 10/01/2024 7:50 AM EDT [facility] MPV 7.7 7 - 12 fL 10/01/2024 7:50 AM EDT [facility] Neutrophils % 65.7 % 10/01/2024 7:50 AM EDT [facility] Lymphocytes % 18.1 % 10/01/2024 7:50 AM EDT [facility] Monocytes % 14.3 % 10/01/2024 7:50 AM EDT [facility] Eosinophils % 1.2 % 10/01/2024 7:50 AM EDT [facility] Basophils % 0.7 % 10/01/2024 7:50 AM EDT [facility] Neutrophils Absolute (A) 6.1 1.5 - 6.6 10*3/uL 10/01/2024 7:50 AM EDT [facility] Lymphocytes Absolute 1.7 1.0 - 3.5 10*3/uL 10/01/2024 7:50 AM EDT [facility] Monocytes Absolute 1.3(H) 0.0 - 0.9 10*3/uL 10/01/2024 7:50 AM EDT [facility] Eosinophils Absolute 0.1 0.0 - 0.4 10*3/uL 10/01/2024 7:50 AM EDT [facility] Basophils Absolute 0.1 0.0 - 0.2 10*3/uL 10/01/2024 7:50 AM EDT [facility] Differential Type AUTOMATED DIFFERENTIAL 10/01/2024 7:50 AM EDT [facility] Blood Venous blood / Unknown Venipuncture / Unknown 10/01/2024 7:38 AM EDT 10/01/2024 7:41 AM EDT us Carmen Alfred DO LAB BLOOD ORDERABLES Final R esult [address] [place] [address], [place] * Magnesium (10/01/2024 7:38 AM EDT) MAGNESIUM 1.9 1.8 - 2.6 mg/dL 10/01/2024 8:02 AM EDT [facility] Blood Venous blood / Unknown Venipuncture / Unknown 10/01/2024 7:38 AM EDT 10/01/2024 7:41 AM EDT us Carmen Alfred DO LAB BLOOD ORDERABLES Final R esult Performing Organization Address City/[facility]/ZIP Co de Phone Number [address] [place] [address], [place] * Lipase (10/01/2024 7:38 AM EDT) LIPASE 32 17 - 40 U/L 10/01/2024 8:00 AM EDT [facility] Blood Venous blood / Unknown Venipuncture / Unknown 10/01/2024 7:38 AM EDT 10/01/2024 7:41 AM EDT us Carmen Alfred DO LAB BLOOD ORDERABLES Final R esult Performing Organization Address [facility]/ZIP Co de Phone Number [address] [place] [address], [place] * (ABNORMAL) Comprehensive metabolic panel (10/01/2024 7:38 AM EDT) SODIUM 137 134 - 146 mmol/L 10/01/2024 8:02 AM EDT [facility] POTASSIUM 3.4(L) 3.5 - 5.0 mmol/L 10/01/2024 8:02 AM EDT [facility] CHLORIDE 102 98 - 109 mmol/L 10/01/2024 8:02 AM EDT [facility] CARBON DIOXIDE 25 22 - 32 mmol/L 10/01/2024 8:02 AM EDT [facility] ANION GAP 10 5 - 15 mmol/L 10/01/2024 8:02 AM EDT [facility] BLOOD UREA NITROGEN 20 5 - 27 mg/dL 10/01/2024 8:02 AM EDT [facility] CREATININE 0.89 0.40 - 1.00 mg/dL 10/01/2024 8:02 AM EDT [facility] Comment:METHOD TRACEABLE TO IDMS STANDARD GLUCOSE 111(H) 65 - 99 mg/dL 10/01/2024 8:02 AM EDT [facility] CALCIUM 8.9 8.5 - 10.5 mg/dL 10/01/2024 8:02 AM EDT [facility] TOTAL PROTEIN 6.6 6.0 - 8.0 g/dL 10/01/2024 8:02 AM EDT [facility] ALBUMIN 3.5 3.2 - 5.3 g/dL 10/01/2024 8:02 AM EDT [facility] ALKALINE PHOSPHATASE 69 39 - 130 U/L 10/01/2024 8:02 AM EDT [facility] AST 14 <=41 U/L 10/01/2024 8:02 AM EDT [facility] ALT 20 <=31 U/L 10/01/2024 8:02 AM EDT [facility] BILIRUBIN,TOTAL 0.4 0.3 - 1.2 mg/dL 10/01/2024 8:02 AM EDT [facility] EGFR Non-Race Dependent 72 >=60 ml/min/1.7 3sq.m 10/01/2024 8:02 AM EDT [facility] Comment: eGFR not reported due to non-numeric value for Creatinine. Reported eGFR is based on the CKD-EPI 2020 equation that does not use a race coefficient. Blood Venous blood / Unknown Venipuncture / Unknown 10/01/2024 7:38 AM EDT 10/01/2024 7:41 AM EDT us Carmen Alfred DO LAB BLOOD ORDERABLES Final R esult [facility] [address] [place] [address], from Last 3 Months Insurance MEDICARE COMMERCIAL Care Teams Marina Manager Relationship Specialty Start Date End Date Celia Blank MD [address] [place] [id number] PCP - General Family Medicine 10/01/24
--- OUTSIDE RECORDS SUMMARY | 2024-11-03 04:57 | XMS_ITS | CCD ---
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 Role Phone CORNELIUS GARRISON Primary [...] Unavailable MD Cornelius Garrison Primary Care Provider [phone] DO Alexandro Galvez Attending Provider Cornelius Garrison MD Primary Care Provider King NITIN, Ofelia Unavailable Cornelius Garrison MD Primary Care Provider Alexandro Galvez DO Attending Provider [phone] Cornelius Garrison MD Attending Provider [phone] Cornelius Garrison MD Primary Care Provider Cornelius [...] TAVERAS, Duong Wagoner Attending Unavailable Bladimir TAVERAS, [facility] Unava ilable Denilson TAVERAS, Duong Wagoner Attending Unavailable Bladimir TAVERAS, [facility] Unava ilable Denilson TAVERAS, Duong Wagoner Attending Unavailable Bladimir TAVERAS, Cornelius [facility] Unava ilkrystal Garrison MD, [facility] Unava ilable Denilson TAVERAS, Duong Wagoner Attending Unavailable Bladimir TAVERAS, Cornelius [facility] Unava ilable Denilson TAVERAS, Duong Wagoner Attending Unavailable Bladimir TAVERAS, [facility] Unava ilkrystal Garrison MD, Cornelius Milanbeth Referring Unava ilable Adis PA-C, Ofelia Grace Attending Unavailab Tuan TAVERAS, [facility] Unava ilable Adis PA-C, Ofelia Grace Attending Unavailab jass Garrison MD, [facility] Unava ilable Adis PA-C, Ofelia Grace Attending Unavailab Tuan TAVERAS, [facility] Unava ilable Alexey Morgan MD Admitting Unavailable Grant PA-C, Sravani Benson Attending U elizabeth Garrison MD, [facility] Unava ilable Adis PA-C, Ofelia Grace Admitting Unavailab le King MARIANO-C, Ofelia Grace Attending Unavailab Tuan TAVERAS, [facility] Unava ilable Adis PA-C, Ofelia Grace Attending Unavailab Traci TAVERAS, Duong Wagoner Attending Unavailable Bladimir TAVERAS, [facility] Unava ilable CORNELIUS GARRISON Primary [facility] [place] Unavailable TYRONE HAMM Attending Unavailable Allergies Allergy Classification Reported Allergen(s) Allergy Type Date of Onset Reaction(s) Facility (3 sources) Acetaminophen / oxyCODONE; Translations: [acetaminophen-oxy codone] Drug Allergy Nausea (finding) [facility] [place] (6 sources) Alendronate; Translations: [alendronate] Drug Allergy 12-20-20 24 Muscle pain (finding) [facility] [place] (14 sources) Clarithromycin; Translations: [clarithromycin] Drug Allergy 07-31-19 Unknown (qualifier value) [facility] [place] (16 sources) levoFLOXacin; Translations: [levofloxacin] Drug Allergy 07-31-19 Eruption of skin (disorder) [facility] [place] (4 sources) Sulfonamides (Antibiotic); Translations: [sulfa drugs] Drug allergy Unknown (qualifier value) [facility] [place] (1 source) Acetaminophen / oxyCODONE Drug Allergy 03-25-20 16 [facility] (1 source) Alendronate Drug Allergy 03-18-20 16 [facility] (1 source) Clarithromycin Drug Allergy 03-25-20 16 [facility] (1 source) levoFLOXacin Drug Allergy 03-25-20 16 [facility] (1 source) Quinolones (Antibiotic) Drug allergy (disorder) 03-25-20 16 [facility] (1 source) Sulfonamides (Antibiotic) Drug allergy (disorder) 05-01-19 14 [facility] (1 source) Acetaminophen Drug Allergy 07-31-19 24 [facility] (11 sources) Alendronate Drug Allergy 07-31-19 24 [facility] (11 sources) oxyCODONE Drug Allergy 07-31-19 24 [facility] (12 sources) Sulfonamides (Antibiotic); Translations: [SULFA (SULFONAMIDE ANTIBIOTICS)] Allergy to substance 07-31-19 Comment:as a young child, pt. cannot recall [facility] (11 sources) Biaxin XL *MACROLIDES* Allergy to substance 07-28-19 [facility] (4 sources) Acetaminophen / oxyCODONE; Translations: [OXYCODONE-ACETAMI NOPHEN] Drug Allergy 06-05-19 Nausea Only [facility] (3 sources) Clarithromycin Allergy to substance 03-29-20 24 [facility] (3 sources) Lactobacillus acidophilus Drug Allergy 06-05-19 25 [facility] (3 sources) Quinolones (Antibiotic) Drug Intolerance 03-11-20 10 Rash [facility] (3 sources) Sulfonamides (Antibiotic) Drug Intolerance 03-11-20 10 [facility] (1 source) Ciprofloxacin; Translations: [Cipro] Drug Allergy [facility] (1 source) symbalta; Translations: [symbalta] Propensity to adverse reactions to drug (disorder) [facility] Medications Current Medications Medication Drug [...] 1 tablet by mouth at bedtime HYDROcodone-acetaminophen (Elim) 5-325 MG tablet Take 1 tablet by [...] Rinse after use Start: 03-29-2024 End: 04-15-2024 Hlyrxwvaybv-Fqzevwyau-Kdifbp er (Trelegy Ellipta) 200-62.5-25 mcg blister with device Discontinued 1 INH INHALATION Daily 60 March 29, 2024 10:38am April 15, 2024 4:41pm Rinse after use Start: 03-29-2024 End: 04-15-2024 Gbmtklhahsv-Mhelkmeja-Rsqitw er (Trelegy Ellipta) 200-62.5-25 mcg blister with device Discontinued 1 INH INHALATION Daily 60 March 29, 2024 9:38am April 15, 2024 3:41pm Rinse after use Start: 03-11-2024 End: 03-29-2024 Iypptsgifer-Kopmcgnck-Wtijgj er (Trelegy Ellipta) 200-62.5-25 mcg blister with device Discontinued 1 INH INHALATION Daily 180 90 March 11, 2024 1:00am March 29, 2024 10:38am Rinse after use Start: 03-11-2024 End: 03-29-2024 Rmzxcpospts-Owbyrrvlf-Qhnwgv er (Trelegy Ellipta) 200-62.5-25 mcg blister with [...] tablet Discontinued 100 MG PO Twice daily 20 October 13, 2023 12:00am November 01, 2023 9:02am [...] March 29, 2024 9:04am 60 actuat tiotropium 0.21265 mg/actuat inhalation spray (12 sources) Anticholinergic Start: 02-08-2024 End: 03-11-2024 take 1 puff(s) by inhalation once daily in the morning Tiotropium Frostproof (Spiriva Respimat) 1.25 mcg/actuation mist Discontinued 2 [...] Active Problems Problem Classification Problem Date Documented Da te Episodic/Chronic Abdominal hernia (1 source) Diaphragmatic hernia without obstruction or gangrene; Translations: [DIAPH HERNIA W/O OBST/GANGRENE] Onset: 2 Episodic Anal and rectal conditions (1 source) Rectal polyp; Translations: [RECTAL POLYP] Onset: 2 Episodic Asthma (19 sources) Asthma; Translations: [Uncomplicated moderate persistent asthma] Onset: 5 Resolved: 5 12-17-2021 Chronic Chronic obstructive pulmonary disease and bronchiectasis (20 sources) Chronic obstructive lung disease; Translations: [Chronic obstructive pulmonary disease, unspecified] Onset: 2 Resolved: 5 12-17-2021 Chronic Digestive congenital anomalies (1 source) Other specified congenital malformations of intestine; Translations: [OTH SPEC CONGEN MALFORM INTESTINE] Onset: 2 Chronic Diverticulosis and diverticulitis (1 source) Diverticulosis of large intestine without perforation or abscess without bleeding; Translations: [DVRTCLOS LG INT NO PERF/ABSC W/O BL] Onset: 2 Chronic E Codes: Natural/environment (16 sources) Tick bite; Translations: [Bitten or stung by nonvenomous insect and other nonvenomous arthropods, initial encounter] Onset: 5 Resolved: 5 10-13-2023 Episodic Esophageal disorders (10 sources) Gastroesophageal reflux disease without esophagitis; Translations: [Gastro-esophageal reflux disease without esophagitis] Onset: 2 Resolved: 5 Chronic Gastritis and duodenitis (1 source) Unspecified chronic gastritis without bleeding; Translations: [UNS CHRONIC GASTRITIS W/O BLEEDING] Onset: 2 Chronic Headache; including migraine (16 sources) Headache; Translations: [Headache] Onset: 5 Resolved: 5 10-13-2023 Episodic Immunizations and screening for infectious disease (10 sources) Patient encounter status; Translations: [Encounter for immunization] Onset: 5 Resolved: 5 03-11-2024 Episodic Osteoarthritis (17 sources) Primary gonarthrosis, bilateral; Translations: [Bilateral primary osteoarthritis of knee] Onset: 5 Resolved: 5 01-24-2024 Chronic Other aftercare (1 source) Other mcfp (current) drug therapy; Translations: [OTH LONGTERM CURRENT DRUG THERAPY] Onset: 2 Episodic Other aftercare (6 sources) Long-term current use of inhaled steroid; Translations: [terminal gauger (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 of 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] Onset: 5 Resolved: 5 04-15-2024 Episodic Other aftercare (3 sources) terminal gauger (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 of 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; Translations: [Long-term (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 of steroids] 04-15-2024 Episodic Other bone disease and musculoskeletal deformities (1 source) Other specified disorders of bone density and structure, unspecified site; Translations: [OTH D/O BONE DEN STRUCT UNS SITE] Onset: 2 Episodic Other connective tissue disease (7 sources) Pain in right lower limb; Translations: [Pain in right leg] Onset: 5 Resolved: 5 03-29-2024 Episodic Other connective tissue disease (4 sources) Pain in right leg; Translations: [Pain in limb] 03-29-2024 Episodic Other fractures (7 sources) Fracture of rib; Translations: [Fracture of one rib, unspecified side, initial encounter for closed fracture] Onset: 5 Resolved: 5 02-18-2024 Episodic Other fractures (2 sources) Fracture of one rib, unspecified side, initial encounter for closed fracture; Translations: [Closed fracture of rib(s), unspecified] 02-08-2024 Episodic Other gastrointestinal disorders (1 source) Diarrhea, unspecified; Translations: [Diarrhea, unspecified] Onset: 5 Episodic Other gastrointestinal disorders (1 source) Diarrhea Onset: 5 Episodic Other nervous system disorders (1 source) Numbness and tingling sensation of skin; Translations: [Anesthesia of skin] 04-01-2024 Episodic Other non-traumatic joint disorders (13 sources) Joint pain; Translations: [Pain in unspecified joint] Onset: 5 Resolved: 5 10-13-2023 Episodic Other non-traumatic joint disorders (3 sources) Pain in unspecified joint; Translations: [Pain in joint, site unspecified] 10-13-2023 Episodic Other non-traumatic joint disorders (18 sources) Pain in right knee; Translations: [Pain in both knees] Onset: 4 Resolved: 5 01-10-2024 Episodic Other screening for suspected conditions (not mental disorders or infectious disease) (14 sources) Screening for malignant neoplasm of colon done; Translations: [Encounter for screening for malignant neoplasm of colon] Onset: 2 Episodic Regional enteritis and ulcerative colitis (1 source) Ulcerative (chronic) pancolitis without complications; Translations: [Ulcerative (chronic) pancolitis without complications] Onset: 5 Chronic Residual codes; unclassified (1 source) Early satiety; Translations: [EARLY SATIETY] Onset: 2 Episodic Residual codes; unclassified (8 sources) Menopause present; Translations: [Asymptomatic menopausal state] Onset: 5 Resolved: 5 02-08-2024 Episodic Residual codes; unclassified (3 sources) Asymptomatic menopausal state; Translations: [Symptomatic menopausal or female climacteric states] 02-08-2024 Episodic Spondylosis; intervertebral disc disorders; other back problems (20 sources) Lumbar radiculopathy; Translations: [Radiculopathy, lumbar region] Onset: 5 Resolved: 5 07-31-2023 Episodic Substance-related disorders (15 sources) Nicotine dependence, cigarettes, uncomplicated; Translations: [Tobacco dependence caused by cigarettes] Onset: 2 Resolved: 5 03-11-2024 Chronic Thyroid disorders (13 sources) Thyroid nodule; Translations: [Nontoxic single thyroid nodule] Onset: 5 Resolved: 5 03-29-2024 Chronic Unclassified (2 sources) Patient encounter status 12-22-2021 Unclassified (1 source) CONTACT W/AND (SUSP) EXPOS COVID-19; Translations: [CONTACT W/AND (SUSP) EXPOS COVID-19] Onset: 2 Unclassified (1 source) Diarrhea, Abdominal Pain Onset: 5 Past or Other Problems Problem Classification Problem [...] Test Name Value Interpretation Reference Range Facility C DIFFICILE BY PCRon 025 027 NAP1 Negative Normal Presumptive Negative [facility] Comment on above: Result Comment: Batool cerrato methodology is nucleic acid amplification by real-time PCR for detection of C. difficile toxin gene sequences performed on [employer] Instrument System. Performed By: #### C DFPCR #### [facility] ([facility]) [address] [place] [address] VIR TOXIGENIC C DIFF Negative Normal Negative [facility] Comment on above: Performed By: #### C DFPCR #### [facility] ([facility]) [address] [place] [address] VIR CBC WITH AUTO DIFFERENTIALon 10-01-2024 BASOPHILS ABSOLUTE COUNT (10*3/UL) BY AUTOMATED COUNT 0.1 10*3/uL Normal 0.0-0.[address] [facility] Comment on above: Performed By: #### C BCA #### [facility] ([facility]) [address] [place] [address] VIR BASOPHILS RELATIVE PERCENT BY AUTOMATED COUNT 0.7 % Normal [facility] Comment on above: Performed By: #### C BCA #### [facility] ([address] [address] VIR CELLAVISION DIFFERENTIAL TYPE AUTOMATED DIFFERENTIAL Normal [place] Comment on above: Performed By: #### C BCA #### [facility] ([address] [address] VIR Eosinophils (Bld) [#/Vol] 0.1 10*3/uL Normal 0.0-0.[address] [facility] Comment on above: Performed By: #### C BCA #### [address] [address] VIR EOSINOPHILS RELATIVE PERCENT BY AUTOMATED COUNT 1.2 % Normal [facility] Comment on above: Performed By: #### C BCA #### [address] [address] VIR Erythrocyte distribution width (RBC) [Ratio] 13.2 % Normal 11.5-[address] [facility] Comment on above: Performed By: #### C BCA #### [address] [address] VIR Hematocrit (Bld) [Volume fraction] 41.7 % Normal 35-[address] [facility] Comment on above: Performed By: #### C BCA #### [address] [address] VIR Hemoglobin (Bld) [Mass/Vol] 14.1 g/dL Normal 11.7-15.[address] [facility] Comment on above: Performed By: #### C BCA #### [address] [address] VIR LYMPHOCYTES ABSOLUTE COUNT (10*3/UL) BY AUTOMATED COUNT 1.7 10*3/uL Normal 1.0-3.[address] [facility] Comment on above: Performed By: #### C BCA #### [facility] ([address] [address] VIR LYMPHOCYTES RELATIVE PERCENT BY AUTOMATED COUNT 18.1 % Normal [facility] Comment on above: Performed By: #### C BCA #### [facility] ([address] [place] [address] VIR MCH (RBC) [Entitic mass] 29.8 pg Normal 27-[address] [facility] Comment on above: Performed By: #### C BCA #### [facility] ([address] [address] VIR MCHC (RBC) [Mass/Vol] 33.9 g/dL Normal 32-[address] [facility] Comment on above: Performed By: #### C BCA #### [facility] ([address] [address] VIR MCV (RBC) [Entitic vol] 88 fL Normal 80-[address] [facility] Comment on above: Performed By: #### C BCA #### [facility] ([address] [address] VIR MONOCYTES ABSOLUTE COUNT (10*3/UL) BY AUTOMATED COUNT 1.3 10*3/uL High 0.0-0.[address] [facility] Comment on above: Performed By: #### C BCA #### [facility] ([address] [place] [address] VIR MONOCYTES RELATIVE PERCENT BY AUTOMATED COUNT 14.3 % Normal [facility] Comment on above: Performed By: #### C BCA #### [facility] ([address] [address] VIR NEUTROPHILS ABSOLUTE COUNT BY AUTOMATED COUNT 6.1 10*3/uL Normal 1.5-6.[address] [facility] Comment on above: Performed By: #### C BCA #### [facility] ([address] [place] [address] VIR NEUTROPHILS RELATIVE PERCENT BY AUTOMATED COUNT 65.7 % Normal [facility] Comment on above: Performed By: #### C BCA #### [facility] ([facility]) [address] [place], [place] [address]. [place] [address] VIR Platelet mean volume (Bld) [Entitic vol] 7.7 fL Normal 7-[address] [facility] Comment on above: Performed By: #### C BCA #### [facility] ([address] [place] [address] VIR Platelets (Bld) [#/Vol] 376 10*3/uL Normal 150-[address] [facility] Comment on above: Performed By: #### C BCA #### [facility] ([address] [place] [address] VIR RBC COUNT 4.74 X10E12/L Normal 3.8-5.[address] [facility] Comment on above: Performed By: #### C BCA #### [facility] ([address] [place] [address] VIR WBC (Bld) [#/Vol] 9.3 10*3/uL Normal 4-11 [facility] Comment on above: Performed By: #### C BCA #### [facility] ([address] [place] [address] VIR COMPREHENSIVE METABOLIC PANE Dominick 10-01-2024 Albumin [Mass/Vol] 3.5 g/dL Normal 3.2-5.3 [facility] Comment on above: Performed By: #### C MP #### [facility] ([address] [place] [address] VIR ALP [Catalytic activity/Vol] 69 U/L Normal 39-[address] [facility] Comment on above: Performed By: #### C MP #### [facility] ([address] [place] [address] VIR ALT [Catalytic activity/Vol] 20 U/L Normal <=[address] [facility] Comment on above: Performed By: #### C MP #### [facility] ([place] [address] [place] [address] VIR Anion gap [Moles/Vol] 10 mmol/L Normal 5-[address] [facility] Comment on above: Performed By: #### C MP #### [facility] ([place] [address] [place] [address] VIR AST [Catalytic activity/Vol] 14 U/L Normal <=[address] [facility] Comment on above: Performed By: #### C MP #### [facility] ([place] [address] [place] [address] VIR Bilirubin [Mass/Vol] 0.4 mg/dL Normal 0.3-1.[address] [facility] Comment on above: Performed By: #### C MP #### [facility] ([place] [address] [place] [address] VIR Calcium [Mass/Vol] 8.9 mg/dL Normal 8.5-10.5 [facility] Comment on above: Performed By: #### C MP #### [facility] ([place] [address] [place] [address] VIR Chloride [Moles/Vol] 102 mmol/L Normal 98-[address] [facility] Comment on above: Performed By: #### C MP #### [facility] ([place] [address] [place] [address] VIR CO2 [Moles/Vol] 25 mmol/L Normal 22-[address] [facility] Comment on above: Performed By: #### C MP #### [facility] ([place] [address] [address] VIR Creatinine [Mass/Vol] 0.89 mg/dL Normal 0.40-1.[address] [facility] Comment on above: Result Comment: METH OD TRACEABLE TO IDMS STANDARD Performed By: #### C MP #### [facility] ([address] [address] VIR GFR/1.73 sq M.predicted among non-blacks MDRD (S/P/Bld) [Vol rate/Area] 72 mL/min/{1.73_m2} Normal >=[address] [facility] Comment on above: Result Comment: eGFR not reported due to non-numeric value for Creatinine. Reported eGFR is based on the CKD-EPI 2020 equation that does not use a race coefficient. Performed By: #### C MP #### [facility] ([address] [address] VIR Glucose [Mass/Vol] 111 mg/dL High 65-99 [facility] Comment on above: Performed By: #### C MP #### [facility] ([address] [address] VIR Potassium [Moles/Vol] 3.4 mmol/L Low 3.5-5.[address] [facility] Comment on above: Performed By: #### C MP #### [facility] ([address] [address] VIR Protein [Mass/Vol] 6.6 g/dL Normal 6.0-8.0 [facility] Comment on above: Performed By: #### C MP #### [facility] ([address] [address] VIR Sodium [Moles/Vol] 137 mmol/L Normal 134-146 [facility] Comment on above: Performed By: #### C MP #### [facility] ([address] [place] [address] VIR Urea nitrogen [Mass/Vol] 20 mg/dL Normal 5-[address] [facility] Comment on above: Performed By: #### C MP #### [facility] ([facility]) [address] [place] [address] ABDOMEN AND PELVIS W CONT on 10-01-2024 CT ABDOMEN AND PELVIS W CONT CT ABDOMEN AND PELVIS W CONT CT ABDOMEN AND PELVIS W CONT CLINICAL [...] Chico Cordova MD on 10/01/2024 8:37 AM Normal [facility] GI PANEL STOOL PATHOGEN PANE Dominick 10-01-2024 ADENOVIRUS Not detected Normal Not Detected [facility] Comment on above: Performed By: #### G IP #### [facility] ([facility]) [address] [place] [address] VIR AGGREGATIVE E COLI Not detected Normal Not Detected [facility] Comment on above: Performed By: #### G IP #### [facility] ([facility]) [address] [place] [address] VIR ASTROVIRUS Not detected Normal Not Detected [facility] Comment on above: Performed By: #### G IP #### [facility] ([facility]) [address] [place] [address] VIR CAMPYLOBACTER Detected Abnormal Not Detected [facility] Comment on above: Result Comment: Dete cts the following: C. jejuni, C. coli, C. upsaliensis. Performed By: #### G IP #### [facility] ([facility]) [address] [place] [address] VIR CRYPTOSPORIDIUM Not detected Normal Not Detected [facility] Comment on above: Performed By: #### G IP #### [facility] ([facility]) [address] [place] [address] VIR CYCLOSPORA Not detected Normal Not Detected [facility] Comment on above: Performed By: #### G IP #### [facility] ([facility]) [address] [place] [address] VIR E HISTOLYTICA Not detected Normal Not Detected [place] Comment on above: Performed By: #### G IP #### [facility] ([facility]) [address] [place] [address] VIR GIARDIA LAMBLIA Not detected Normal Not Detected [facility] Comment on above: Performed By: #### G IP #### [facility] ([facility]) [address] [place] [address] VIR NOROVIRUS Not detected Normal Not Detected [facility] Comment on above: Performed By: #### G IP #### [facility] ([facility]) [address] [place] [address] VIR PATHOGENIC E COLI Detected Abnormal Not Detected [facility] Comment on above: Result Comment: Ente ropathogenic Escherichia coli Performed By: #### G IP #### [facility] ([facility]) [address] [place] [address] VIR PLESIOMONAS Not detected Normal Not Detected [facility] Comment on above: Performed By: #### G IP #### [facility] ([facility]) [address] [place] [address] VIR ROTAVIRUS A Not detected Normal Not Detected [facility] Comment on above: Performed By: #### G IP #### [facility] ([facility]) [address] [place] [address] VIR SALMONELLA Not detected Normal Not Detected [facility] Comment on above: Performed By: #### G IP #### [facility] ([facility]) [address] [place] [address] VIR SAPOVIRUS Not detected Normal Not Detected [facility] Comment on above: Performed By: #### G IP #### [facility] ([facility]) [address] [place] [address] VIR SHIGA TOXIN E COLI Not detected Normal Not Detected [facility] Comment on above: Performed By: #### G IP #### [facility] ([facility]) [address] [place] [address] VIR SHIGELLA-E COLI Not detected Normal Not Detected [facility] Comment on above: Performed By: #### G IP #### [facility] ([facility]) [address] [place] [address] VIR TOXIGENIC E COLI Not detected Normal Not Detected [facility] Comment on above: Performed By: #### G IP #### [facility] ([facility]) [address] [place] [address] VIR VIBRIO Not detected Normal Not Detected [facility] Comment on above: Performed By: #### G IP #### [facility] ([facility]) [address] [place] [address] VIR VIBRIO CHOLERAE Not detected Normal Not Detected [facility] Comment on above: Performed By: #### G IP #### [facility] ([facility]) [address] [place] [address] VIR Y. ENTEROCOLITICA Not detected Normal Not Detected [facility] Comment on above: Performed By: #### G IP #### [facility] ([facility]) [address] [place] [address] VIR LIPASEon 10-01-2024 Lipase [Catalytic activity/Vol] 32 U/L Normal 17-[address] [facility] Comment on above: Performed By: #### L IPA #### [facility] ([facility]) [address] [place] [address] VIR MAGNESIUMon 10-01-2024 Magnesium [Mass/Vol] 1.9 mg/dL Normal 1.8-2.[address] [facility] Comment on above: Performed By: #### M G #### [facility] ([place] [address] [place] [address] VIR POCT NURSING URINE MACROSCOP IC UAon 10-01-2024 BILIRUBIN SHANT Negative Normal Negative [facility] Comment on above: Performed By: #### N UM #### [facility] ([place] [address] [facility] [place] [address] VIR BLOOD/HGB SHANT Moderate Abnormal Negative [facility] Comment on above: Performed By: #### N UM #### [facility] ([place] [address] [place] [address] VIR GLUCOSE SHANT Negative Normal Negative [facility] Comment on above: Performed By: #### N UM #### [facility] ([place] [address] [address] VIR KETONES SHANT Negative Normal Negative [facility] Comment on above: Performed By: #### N UM #### [facility] ([address] [place] [address] VIR LEUKOCYTE ESTERASE SHANT Negative Normal Negative [facility] Comment on above: Performed By: #### N UM #### [facility] ([address] [place] [address] VIR NITRITE SHANT Negative Normal Negative [facility] Comment on above: Performed By: #### N UM #### [facility] ([address] [place] [address] VIR PH SHANT 6.0 Normal 5.0, 6.0, 6.5, 7.0, 7.5, 8.0, 8.5, 5.[address] [facility] Comment on above: Performed By: #### N UM #### [address] [place] [address] VIR PROTEIN SHANT Trace Abnormal Negative [facility] Comment on above: Performed By: #### N UM #### [facility] ([address] [place] [address] VIR SPECIFIC GRAVITY SHANT <=1.005 Abnormal 1.010, 1.015, 1.020, 1.[address] [facility] Comment on above: Performed By: #### N UM #### [address] [place] [address] VIR UROBILINOGEN SHANT 0.2 E.U./dL [facility] Comment on above: Performed By: #### N UM #### [address] [place] [address] Spine Lumbar Myelogram w/ Contraston 07-30-2024 [...] narrowing as detailed above. Radiation Dose Estimate: CTDI(mGy):0.751819 / / / kVp:120.367657 / mAs:0.615545 / / / DLP(mGy-cm):3.950285Lvte Part: CTDI(mGy):21.691070 / / / kVp:120.899541 / mAs:230.481405 / / / DLP(mGy-cm):616.583276Tngs Part: Final Dictated by: Alexey Morgan MD Dictated DT/TM: 07.30.2024 12:27 pm Signed by: Alexey Morgan MD Signed (Electronic Signature): 07.30.2024 12:38 pm (If Report Is Signed, Electronically Signed in Other Vendor System) Normal [facility] PTon 07-30-2024 INR Coag (PPP) [Relative time] 0.9 {INR} Normal <=3.5 [facility] Comment on above: Result Comment: INR has no normal range. INR Therapeutic range is: 2.0-3.0 (AF, CVA, TIAs, DVT prophylaxis, acute DVT) 2.5[facility]3.5 [facility] Performed By: #### P TINR #### [address] [address] PT Coag (PPP) [Time] 10.4 s Normal 10.2-12.9 [facility] Comment on above: Performed By: #### P TINR #### [address] [address] PTTon 07-30-2024 aPTT Coag (Bld) [Time] 30.8 s Normal 25.1-36.5 [facility] Comment on above: Performed By: #### P TT #### [address] [address] Platelet Counton 07-30-2024 Platelet 313 x10*3/mcL Normal 150-450 [facility] Comment on above: Performed By: #### P TINR #### [place] [address] XR Myelography Lumbosacral S wally 07-30-2024 XR Myelography Lumbosacral Spine CLINICAL HISTORY: [...] Electronically Signed in Other Vendor System) Normal [facility] Neurosurgery Office/Clinic N oteon 06-06-2024 Neurosurgery Office/Clinic Note Chief Complaint back follow up History of Present Illness The patient is a pleasant 64-year-old right-handed female with history of chronic nicotine use, asthma and recently diagnosed COPD for which she is planned to see a wildlife control agent in the near future. She also has [...] therapy without benefit. She is established with [place] pain management undergoing left L4-5 CARLOS and [...] though does not resolve. Oral narcotics including Elim which makes pain tolerable though does not resolve. Topical agents including lidocaine patches and Bengay with limited benefit. Pain management injection modalities years ago with temporary benefit lasting only a few days. Physical therapy years ago without significant benefit. Chiropractic manipulation x 1 visit without benefit therefore patient never returned. Activity modification [1] Pain management injection modalities through [facility]. Initial injection targeted left L4-5 which [...] No si (more content not included)... Normal [facility] Provider Letteron 06-06-2024 Provider Letter (Inserted Image. Gela ble to display) Cornelius Garrison MD [facility], [place] [address] Re: Cristine Manley Date of Visit: 06/06/2024 Dear Cornelius Garrison MD, This patient was recently seen in the neurosurgical office. Please see attached note for further details. Let me know if you have any questions or concerns. Sincerely, DEMARCUS Gan Providers: The following document(s) were included in the letter: June 06, 2024 09:36:40 EST - (06/06/2024) Neurosurgery Office Visit Note Normal [facility] Dominick 04-22-2024 L -------- -------- Specimen: [id number] Received: 04/24/24 Status: OMAR Lopestyree Num: [id number] Spec Type: Cytology Subm Dr: Cornelius Garrison MD Tissues: A FNA SLIDES NOPATH (INF RT THY) Procedures: Cyto Int and Re, PAPSTN/5 -------- Age/ Patient Sex Location Account Attending Physician -------- Cristine Manley 64/F [place] [id number] Cornelius Garrison MD -------- SPEC NUM: [id number] RECD: 04/24/24 STATUS: OMAR HAYES NUM: [id number] TORI: 04/22/24- SUBM DR: Cornelius Garrison MD ENTERED: 04/24/[address] [facility] [address]: Les Lee MD SPEC TYPE: Cytology DEPT: KEN NCYT ENTERED BY: [id number] RECV BY: [id number] ORDERED: Cyto Int and Re, PAPSTN/5 ORDERED: Cyto Int and Re, PAPSTN/5 Supplemental Report Addendum 1 Entered: 05/10/[address] [facility] GENOMIC SEQUENCING TRANSMITTER ENGINEER: -Ensemble Internal Audit Manager -Benign (risk of malignancy 4%) -Xpression [place] -N/A -Other Classifiers -BRAF p. V600E c. 1799T>A: Negative -RET/PTC1: Not detected -RET/PTC3: Not detected -MTC: Negative -Parathyroid: Negative TERT PROMOTER REGION: -Tests (2) not Performed (TNP) -------- Specimen: [id number] Received: 04/24/24 Status: OMAR Lopesq Num: [id number] Spec Type: Cytology Subm Dr: Cornelius Garrison MD Tissues: A FNA SLIDES NOPATH (INF RT THY) Procedures: Cyto Int and Re, PAPSTN/5 -------- Patient: Cristine Manley [id number] (Continued) -------- Specimen: [id number] Received: 04/24/24 (Continued) Supplemental Report (Continued) Signed (signature on file) Gail Sheth MD 04/24/24 1439 -------- Specimen: [id number] Received: 04/24/24 Status: OMAR Hayes Num: [id number] Spec Type: Cytology Subm Dr: Cornelius Garrison MD Tissues: A FNA SLIDES NOPATH (INF RT THY) Procedures: Cyto Int and Re, PAPSTN/5 -------- Patient: Cristine Manley [id number] (Continued) -------- Specimen: [id number] Received: 04/24/24 (Continued) Supplemental Report (Continued) Addendum Signed (signature on file) Gail Sheth MD 05/10/24 1132 -------- Pathological Diagnosis Right thyroid nodule, inferior, FNA cytology -Adequate follicular groups in the ThinPrep smear, appropriate for assessment, consisting of small to occasionally slightly larger and reactive follicular cells, suggesting dimorphic population and the category 3 [place] system, atypia of the undetermined significance, otherwise [...] vial stored at -20 for microscopic examination. ([place]/vt) Microscopic Description Microscopic examinations are performed supporting the above interpretation CPT Codes 55397 -------- -------- Specimen: [id number] Received: 04/24/24 Status: OMAR Hayes Num: [id number] Spec Type: Cytology Subm Dr: Cornelius Garrison MD Tissues: A FNA SLIDES NOPATH (INF RT THY) Procedures: Cyto Int and Re, PAPSTN/5 -------- Patient: SindhuEvelyneCristine K [id number] (Continued) -------- Signed (signature on file) Gail Sheth MD 04/24/24 1439 Normal [facility] EMG 2 Extremitieson 04-01-20 EMG/NCS BLE Right L5/S1 radic [place] S1/2 radic [facility] Healthcare [place] 9-10 Nerveson 04-01-2024 EMG/NCS BLE Right L5/S1 radic [place] S1/2 radic [facility] Healthcare [facility] Healthcare Provider Letteron 03-26-2024 Provider Letter (Inserted Image. Gela ble to display) Cornelius Garrison MD [facility], [facility] [place] [address] Re: Cristine Sindhu Date of Visit: 03/25/2024 Dear Cornelius Garrison MD, This patient was recently seen in the neurosurgical office. Please see attached note for further details. Let me know if you have any questions or concerns. Sincerely, DEMARCUS Gan Providers: The following document(s) were included in the letter: March 25, 2024 17:40:13 EST - (03/25/2024) Neurosurgery Office Visit Note Normal [facility] Neurosurgery Office/Clinic N sherry 03-25-2024 Neurosurgery Office/Clinic Note Chief Complaint CT thoracic, lumbar, XR lumbar, hips and neck review History of Present Illness The patient is a pleasant 64-year-old right-handed female with history of chronic nicotine use, asthma and recently diagnosed COPD for which she is planned to see a wildlife control agent in the near future. She also has [...] though does not resolve. Oral narcotics including Elim which makes pain tolerable though does not [...] increases slightl (more content not included)... Normal [facility] Basophils Auto (Bld) [#/Vol] on 03-21-2024 Basophils (Bld) [#/Vol] Automated basophil count 0.0-0.1 [facility] Basophils/100 WBC Auto (Bld) on 03-21-2024 Basophils/100 WBC (Bld) Automated basophil % 0.2-2.0 [facility] Eosinophils/100 WBC Auto (Bl d)on 03-21-2024 Eosinophils/100 WBC (Bld) Automated eosinophil % 0.9-7.0 [facility] Erythrocyte distribution wid th Auto (RBC) [Ratio]on 03-21-2024 Erythrocyte distribution width (RBC) [Ratio] Erythrocyte distribution width [Ratio] by Automated count 11.0-15.0 [facility] Hematocrit Auto (Bld) [Volum e fraction]on 03-21-2024 Hematocrit (Bld) [Volume fraction] Hematocrit [Volume Fraction] of Blood by Automated count 36.0-48.0 [facility] Hemoglobin [Mass/volume] in Bloodon 03-21-2024 Hemoglobin (Bld) [Mass/Vol] Hemoglobin [Mass/volume] in Blood 12.0-16.0 [facility] IgE [Units/volume] in Serum or Plasmaon 03-21-2024 IgE Qn IgE [Units/volume] i n Serum or Plasma 6-495 [facility] Comment on above: Performed at: [address] [id number] Director: Levi Pedroza MD, Phone: [phone] Laboratory - Hematology and Cell countson 03-21-2024 Immature granulocytes/100 WBC (Bld) 0.1 % 0.0-0.5 [facility] Leukocytes [#/volume] correc shant for nucleated erythrocytes in Blood by Automated counon 03-21-2024 WBC corrected for nucl RBC Auto (Bld) [#/Vol] Leukocytes [#/volume] corrected for nucleated erythrocytes in Blood by Automated coun 4.0-11.0 [facility] Lymphocytes Auto (Bld) [#/Vo l]on 03-21-2024 Lymphocytes (Bld) [#/Vol] Lymphocytes [#/volume] in Blood by Automated count 1.2-3.8 [facility] Lymphocytes/100 WBC Auto (Bl d)on 03-21-2024 Lymphocytes/100 WBC (Bld) Lymphocytes/100 leukocytes in Blood by Automated count Low 20.5-60.0 [facility] MCH Auto (RBC) [Entitic mass ]on 03-21-2024 MCH (RBC) [Entitic mass] MCH [Entitic mass] by Automated count 26.7-34.0 [facility] MCHC Auto (RBC) [Mass/Vol]on 03-21-2024 MCHC (RBC) [Mass/Vol] MCHC [Mass/volume] by Automated count 29.9-35.2 [facility] MCV Auto (RBC) [Entitic vol] on 03-21-2024 MCV (RBC) [Entitic vol] MCV [Entitic volume] by Automated count 81.0-99.0 [facility] Monocytes Auto (Bld) [#/Vol] on 03-21-2024 Monocytes (Bld) [#/Vol] Automated blood monocyte count 0.3-0.8 [facility] Monocytes/100 WBC Auto (Bld) on 03-21-2024 Monocytes/100 WBC (Bld) Automated monocyte % 1.7-12.0 [facility] Neutrophils Auto (Bld) [#/Vo l]on 03-21-2024 Neutrophils (Bld) [#/Vol] Neutrophils [#/volume] in Blood by Automated count High 1.4-6.5 [facility] Neutrophils/100 WBC Auto (Bl d)on 03-21-2024 Neutrophils/100 WBC (Bld) Automated neutrophil % 43.0-75.0 [facility] No Panel Informationon 03-21 Eosinophils # (Auto) 0.1 10 3/uL 0.0-0.7 [facility] Immature Granulocyte # (Auto) 0.01 10 3/uL 0.00-0.03 [facility] Platelet mean volume Auto (B ld) [Entitic vol]on 03-21-2024 Platelet mean volume (Bld) [Entitic vol] Platelet mean volume [Entitic volume] in Blood by Automated count 9.5-13.5 [facility] Platelets Auto (Bld) [#/Vol] on 03-21-2024 Platelets (Bld) [#/Vol] Platelets [#/volume] in Blood by Automated count 150-450 [facility] RBC Auto (Bld) [#/Vol]on RBC (Bld) [#/Vol] Erythrocytes [#/volu me] in Blood by Automated count 4.20-5.40 [facility] Provider Letteron 02-29-2024 Provider Letter (Inserted Image. Gela ble to display) Cornelius Whittaker [facility], [facility] [place] [address] Re: Cristine Manley Date of Visit: 02/23/2024 Dear Cornelius Garrison MD, Please see attached results on this mutual patient you have with [facility] Result Name Current Result CT Spine Thoracic/Lumbar Myelogram w/Con 02/23/2024 Let me know if you have any questions or concerns. Sincerely, Jaclyn Bliss [facility] Clinical Lead Health Financial Planning Assistant C C Providers: Normal [facility] CT Spine Thoracic/Lumbar Mye logram w/Conon [...] Electronically Signed in Other Vendor System) Normal [facility] PTon 02-23-2024 INR Coag (PPP) [Relative time] 1.0 {INR} Normal <=3.5 [facility] Comment on above: Result Comment: INR has no normal range. INR Therapeutic range is: 2.0-3.0 (AF, CVA, TIAs, DVT prophylaxis, acute DVT) 2.5-3.5 ([facility] heart valves, recurrent thrombosis/emboli) Performed By: #### P TINR #### [address] [address] PT Coag (PPP) [Time] 10.3 s Normal 9.2-12.0 [facility] Comment on above: Performed By: #### P TINR #### [address] [address] PTTon 02-23-2024 aPTT Coag (Bld) [Time] 24.8 s Normal 19.5-28.2 [facility] Comment on above: Performed By: #### P TT #### [address] [address] Platelet Counton 02-23-2024 Platelet 300 x10*3/mcL Normal 150-450 [facility] Comment on above: Performed By: #### P LTS #### [facility] [address] [place] [address] XR Hip 2-3 Views Lefton 02-08 XR [...] Electronically Signed in Other Vendor System) Normal [facility] XR Myelography Spine 2 or Mo [...] Electronically Signed in Other Vendor System) Normal [facility] XR Spine Cervical 4 or 5 [...] Signed, Electronically Signed in Other Vendor System) [facility] XR Spine Lumbosacral Bending 2-3 [place] 02-23-2024 [...] Electronically Signed in Other Vendor System) Normal [facility] Neurosurgery Office/Clinic Aliya powell 02-13-2024 Neurosurgery Office/Clinic Note Chief Complaint Back lumbar pain radiculopathy consult History of Present Illness The patient is a pleasant 64-year-old right-handed female with history of chronic nicotine use, asthma and recently diagnosed COPD for which she is planned to see a wildlife control agent in the near future. She also has [...] in front of her (patient has a [employer] business where she is required to [...] though does not resolve. Oral narcotics including Elim which makes pain tolerable though does not [...] Newly diagnosed COPD, scheduled to see a wildlife control agent in the near future Chronic nicotine use [...] marijuana use. 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 She denies any Worker's Comp. related claims regarding today's visit FAMILY HISTORY: Lung cancer: Father Diabetes mellitus: Mother Hypertension: Mother Review of Systems Constitutional: [No fevers, chills, sweats] Eye: [No recent visual problems] ENMT: [ (more content not included)... Normal [facility] Provider Letteron 02-13-2024 Provider Letter (Inserted Image. Gela ble to display) Cornelius Garrison MD [facility], [facility] [place] [address] Re: Cristine Manley Date of Visit: 02/13/2024 Dear Cornelius Garrison MD, This patient was recently seen in the neurosurgical office. Please see attached note for further details. Let me know if you have any questions or concerns. Sincerely, DEMARCUS Gan Providers: The following document(s) were included in the letter: February 13, 2024 09:39:53 EST - (02/13/2024) Neurosurgery Office Visit Note Normal [facility] XR knee BI 3V - NOT FOR ER U Sanam 01-24-2024 XR knee BI 3V - NOT FOR ER USE [facility] [address] [place] [address] XRay Report Signed Patient: Cristine Manley MR#: [id number] 53 : 1960 Acct:[id number] Age/Sex: 64 / F ADM Date: 01/24/24 Loc: [facility] Room: Type: [facility] Attending Dr: Alexandro Galvez DO Copies to: [...] Sunday Graham M.D.01/24/2024 3:45 PM Dictation Location: [place] [address] Transcribed By: [facility] 01/24/24 154 Dictated By: Sunday Graham II, MD 01/24/24 154 Signed By: 01/24/24 154 Normal [facility] Basophils Auto (Bld) [#/Vol] on 01-19-2024 Basophils (Bld) [#/Vol] 0.0 10 3/uL 0.0-0.1 [facility] Basophils (Bld) [#/Vol] Automated basophil count 0.0-0.1 [facility] Basophils/100 WBC Auto (Bld) on 01-19-2024 Basophils/100 WBC (Bld) 0.2 % 0.2-2.0 [facility] Basophils/100 WBC (Bld) Automated basophil % 0.2-2.0 [facility] Eosinophils/100 WBC Auto (Bl d)on 01-19-2024 Eosinophils/100 WBC (Bld) 4.3 % 0.9-7.0 [facility] Eosinophils/100 WBC (Bld) Automated eosinophil % 0.9-7.0 [facility] Erythrocyte distribution wid th Auto (RBC) [Ratio]on 01-19-2024 Erythrocyte distribution width (RBC) [Ratio] 13.1 % 11.0-15.0 [facility] Erythrocyte distribution width (RBC) [Ratio] Erythrocyte distribution width [Ratio] by Automated count 11.0-15.0 [facility] Estimated glomerular filtrat ion rate (GFR) non- Americanon 01-19-2024 GFR/1.73 sq M.predicted among non-blacks MDRD (S/P/Bld) [Vol rate/Area] mL/min/{1.73_m2} >=60 mL/min/1.73m 2 [facility] GFR/1.73 sq M.predicted among non-blacks MDRD (S/P/Bld) [Vol rate/Area] Estimated glomerular filtration rate (GFR) non- >=60 mL/min/1.73m 2 [facility] Fibrin D-dimer [Presence] in Platelet poor plasma by Latex agglutinationon 01-19-2024 Fibrin D-dimer LA Ql (PPP) 0.43 mg/L FEU <=0.59 [facility] Comment on above: Increases in D-Dimer [...] Platelet poor plasma by Latex agglutination <=0.59 [facility] Comment on above: Increases in D-Dimer [...] Hematocrit (Bld) [Volume fraction] 39.5 % 36.0-48.0 [facility] Hematocrit (Bld) [Volume fraction] Hematocrit [Volume Fraction] of Blood by Automated count 36.0-48.0 [facility] Hemoglobin [Mass/volume] in Bloodon 01-19-2024 Hemoglobin (Bld) [Mass/Vol] 12.8 g/dL 12.0-16.0 [facility] Hemoglobin (Bld) [Mass/Vol] Hemoglobin [Mass/volume] in Blood 12.0-16.0 [facility] Laboratory - Chemistry and C hemistry - challengeon 01-19-2024 Calcium [Mass/Vol] 9.0 mg/dL 8.5-10.1 [facility] Chloride [Moles/Vol] 105 mmol/L 98-107 [facility] CO2 [Moles/Vol] 28.7 mmol/L 21.0-32.0 [facility] Creatinine [Mass/Vol] 0.92 mg/dL 0.55-1.02 [facility] GFR/1.73 sq M.predicted MDRD (S/P/Bld) [Vol rate/Area] mL/min/{1.73_m2} >=60 mL/min/1.73m 2 [facility] Glucose [Mass/Vol] 78 mg/dL 74-106 [facility] Potassium [Moles/Vol] 4.0 mmol/L 3.5-5.1 [facility] Sodium [Moles/Vol] 138 mmol/L 136-145 [facility] Urea nitrogen [Mass/Vol] 27.0 mg/dL High 7.0-18.0 [facility] Urea nitrogen/Creatinin e [Mass ratio] 29.3 mg/mg [facility] Laboratory - Hematology and Cell countson 01-19-2024 Immature granulocytes/100 WBC (Bld) 0.3 % 0.0-0.5 [facility] Laboratory - Microbiology an d Antimicrobial susceptibilityon 01-19-2024 SARS-CoV-2 (COVID-19) RNA JOSELUIS+probe Ql (Unsp spec) Negative NEGATIVE [facility] Comment on above: This test has [...] (Bld) [#/Vol] 12.6 10 3/uL High 4.0-11.0 [facility] WBC corrected for nucl RBC Auto (Bld) [#/Vol] Leukocytes [#/volume] corrected for nucleated erythrocytes in Blood by Automated coun High 4.0-11.0 [facility] Lymphocytes Auto (Bld) [#/Vo l]on 01-19-2024 Lymphocytes (Bld) [#/Vol] 4.4 10 3/uL High 1.2-3.8 [facility] Lymphocytes (Bld) [#/Vol] Lymphocytes [#/volume] in Blood by Automated count High 1.2-3.8 [facility] Lymphocytes/100 WBC Auto (Bl d)on 01-19-2024 Lymphocytes/100 WBC (Bld) 35.0 % 20.5-60.0 [facility] Lymphocytes/100 WBC (Bld) Lymphocytes/100 leukocytes in Blood by Automated count 20.5-60.0 [facility] MCH Auto (RBC) [Entitic mass ]on 01-19-2024 MCH (RBC) [Entitic mass] 29.4 pg 26.7-34.0 [facility] MCH (RBC) [Entitic mass] MCH [Entitic mass] by Automated count 26.7-34.0 [facility] MCHC Auto (RBC) [Mass/Vol]on 01-19-2024 MCHC (RBC) [Mass/Vol] 32.4 g/dL 29.9-35.2 [facility] MCHC (RBC) [Mass/Vol] MCHC [Mass/volume] by Automated count 29.9-35.2 [facility] MCV Auto (RBC) [Entitic vol] on 01-19-2024 MCV (RBC) [Entitic vol] 90.6 fL 81.0-99.0 [facility] MCV (RBC) [Entitic vol] MCV [Entitic volume] by Automated count 81.0-99.0 [facility] Monocytes Auto (Bld) [#/Vol] on 01-19-2024 Monocytes (Bld) [#/Vol] 1.2 10 3/uL High 0.3-0.8 [facility] Monocytes (Bld) [#/Vol] Automated blood monocyte count High 0.3-0.8 [facility] Monocytes/100 WBC Auto (Bld) on 01-19-2024 Monocytes/100 WBC (Bld) 9.5 % 1.7-12.0 [facility] Monocytes/100 WBC (Bld) Automated monocyte % 1.7-12.0 [facility] Neutrophils Auto (Bld) [#/Vo l]on 01-19-2024 Neutrophils (Bld) [#/Vol] 6.4 10 3/uL 1.4-6.5 [facility] Neutrophils (Bld) [#/Vol] Neutrophils [#/volume] in Blood by Automated count 1.4-6.5 [facility] Neutrophils/100 WBC Auto (Bl d)on 01-19-2024 Neutrophils/100 WBC (Bld) 50.7 % 43.0-75.0 [facility] Neutrophils/100 WBC (Bld) Automated neutrophil % 43.0-75.0 [facility] No Panel Informationon 01-18 Bedside Influenza Type A Antigen Negative [facility] Comment on above: Negative for Flu A p rotein antigen. Infection due to Flu Acannot be ruled out. Flu A antigen in the sample may bebelow the detection limit of the test. Bedside Influenza Type B Antigen Negative [facility] Comment on above: Negative for Flu B p rotein antigen. Infection due to Flu Bcannot be ruled out. Flu B antigen in the sample may bebelow the detection limit of the test. Eosinophils # (Auto) 0.5 10 3/uL 0.0-0.7 [facility] Immature Granulocyte # (Auto) 0.04 10 3/uL High 0.00-0.03 [facility] Troponin I High Sensitivity 5.8 pg/mL 4.0-51.3 [facility] Comment on above: CUT-OFF POINTS HAVE [...] (Bld) [Entitic vol] 9.3 fL Low 9.5-13.5 [facility] Platelet mean volume (Bld) [Entitic vol] Platelet mean volume [Entitic volume] in Blood by Automated count Low 9.5-13.5 [facility] Platelets Auto (Bld) [#/Vol] on 01-19-2024 Platelets (Bld) [#/Vol] 304 10 3/uL 150-450 [facility] Platelets (Bld) [#/Vol] Platelets [#/volume] in Blood by Automated count 150-450 [facility] RBC Auto (Bld) [#/Vol]on RBC (Bld) [#/Vol] 4.36 10 6/uL 4.20-5.40 [facility] RBC (Bld) [#/Vol] Erythrocytes [#/volu me] in Blood by Automated count 4.20-5.40 [facility] Serum or plasma anion gap de terminationon 01-19-2024 Anion gap [Moles/Vol] 8.3 mmol/L [facility] Anion gap [Moles/Vol] Serum or plasma anion gap determination [facility] Borrelia burgdorferi IgG+IgM Ab [Presence] in Serum by Immunoassayon 10-13-2023 B. burgdorferi IgG+IgM IA Ql (S) Negative Negative [facility] Comment on above: Lyme antibodies not detected. Reflex testing is notindicated.No laboratory evidence of infection with B. burgdorferi(Lyme disease). Negative results may occur in patientsrecently infected (less than or equal to 14 days) with B.burgdorferi. If recent infection is suspected, repeattesting on a new sample collected in 7 to 14 days isrecommended.Performed at: [address], [place], [place] [id number] Director: Jeovany Bazan PhD, Phone: [phone] General Surgery Office/Filiberto avila Noteon 02-21-2022 General [...] neoplasm of lung: Father. Normal [facility] Comment on above: Result Comment: Elec [...] Very low density lipoprotinemia Normal [facility] Reminderson 02-01-2022 Reminders - From: Sushma Shell LPN To: N - Clinical; Sent: 02/01/2022 16:18:52 EDT Show up: 04/12/2022 07:00:00 EST Subject: EGD recall Due Date/Time: 05/04/2022 07:00:00 EST Reminder/Recall Patient is due to repeat EGD 05/04/2022 due to gastric ulcer. Normal [facility] Outside Colonoscopyon 2021 Outside Colonoscopy [id number]#[id number]:127 [facility] Pathology Noteon 01-14-2022 Pathology Note [id number]#1.00CD:[address] [facility] Reminderson 01-14-2022 Reminders - From: Sushma Shell LPN To: N - Clinical; Sent: 01/14/2022 08:07:35 EDT Show up: 12/14/2031 07:00:00 EDT Subject: colonoscopy recall Due Date/Time: 01/13/2032 07:00:00 EDT Reminder/Recall Patient is due for screening colonoscopy 01/13/2032. Normal [facility] Pre-Certification Formon Pre-Certification Form [id number]#1.00CD:[address] [facility] Lab Reportson 01-11-2022 Lab Reports [id number]#1.00CD:[address] [facility] Covid-19 PCR (CVDTB)on SARS-CoV-2 (COVID-19) RNA JOSELUIS+probe Ql (Unsp spec) Not detected Normal NOT DETECTED [facility] Comment on above: Result Comment: This test is not yet approved or cleared by the [place] FDA. When there are no FDA-approved or cleared tests available, and other criteria are met, FDA can make tests available under an emergency access mechanism called an Emergency Use Authorization (EUA). The EUA for this test is supported by the Director Of Special Services of Health and Human Service's (HHS's) declaration [...] consistent with SARS-CoV-2. Performed By: #### [facility] #### [facility] [address] [place] [address] Dr. Pablo Sheth Physician Orderon 12-23-2021 Physician Order [id number]#[id number]:[address] [facility] Ambulatory Visit Summaryon 0 12-22-2021 Ambulatory Visit Summary EVELYNE MANLEYANDREA Hairston :1960 Visit Date:12/22/2021 Ambulatory Visit Instructions [...] Very low density lipoprotinemia Normal [facility] CBC AUTO DIFFon 12-17-2021 BASO # 0.1 103/ul Normal 0.0-0.1 [facility] Comment on above: Performed By: #### D ATCBC #### [facility] [address] [address] [address] Pablo Sheth Basophils/100 WBC (Bld) 0.4 % Normal 0.2-2.0 [facility] Comment on above: Performed By: #### D ATCBC #### [facility] [address] [address] [address] Pablo Sheth EO # 0.3 103/ul Normal 0.0-0.7 [facility] Comment on above: Performed By: #### D ATCBC #### [facility] [address] [place] [address] Dr. Pablo Sheth Eosinophils/100 WBC (Bld) 2.4 % Normal 0.9-7.0 [facility] Comment on above: Performed By: #### D ATCBC #### [facility] [address] [place] [address] Dr. Pablo Sheth Erythrocyte distribution width (RBC) [Ratio] 13.2 % Normal 11.0-15.0 [facility] Comment on above: Performed By: #### D ATCBC #### [facility] [address] [place] [address] Dr. Pablo Sheth Hematocrit (Bld) [Volume fraction] 42.6 % Normal 36.0-48.0 [facility] Comment on above: Performed By: #### D ATCBC #### [facility] [address] [place] [address] Dr. Pablo Sheth Hemoglobin (Bld) [Mass/Vol] 13.7 g/dL Normal 12.0-16.0 [facility] Comment on above: Performed By: #### D ATCBC #### [facility] [address] [place] [address] Dr. Pablo Sheth IG # 0.05 10e3/ul Critically high 0.00-0.03 [facility] Comment on above: Performed By: #### D ATCBC #### [facility] [address] [place] [address] Dr. Pablo Sheth IG % 0.4 % Normal 0.0-0.5 [facility] Comment on above: Performed By: #### D ATCBC #### [facility] [address] [place] [address] Dr. Pablo Sheth LYMPH # 2.8 103/ul Normal 1.2-3.8 [facility] Comment on above: Performed By: #### D ATCBC #### [facility] [address] [place] [address] Dr. Pablo Sheth Lymphocytes/100 WBC (Bld) 20.9 % Normal 20.5-60.0 [facility] Comment on above: Performed By: #### D ATCBC #### [facility] [address] [place] [address] Dr. Pablo Sheth MCH (RBC) [Entitic mass] 29.2 pg Normal 26.7-34.0 [facility] Comment on above: Performed By: #### D ATCBC #### [facility] [address] [place] [address] Dr. Pablo Sheth MCHC (RBC) [Mass/Vol] 32.2 g/dL Normal 29.9-35.2 [facility] Comment on above: Performed By: #### D ATCBC #### [facility] [address] [place] [address] Dr. Pablo Sheth MCV (RBC) [Entitic vol] 90.8 fL Normal 81.0-99.0 [facility] Comment on above: Performed By: #### D ATCBC #### [facility] [address] [place] [address] Dr. Pablo Sheth MONO # 1.0 103/ul Critically high 0.3-0.8 [facility] Comment on above: Performed By: #### D ATCBC #### [facility] [address] [place] [address] Dr. Pablo Sheth Monocytes/100 WBC (Bld) 7.5 % Normal 1.7-12.0 [facility] Comment on above: Performed By: #### D ATCBC #### [facility] [address] [address] [address] Pablo Sheth NEUT # 9.2 103/ul Critically high 1.4-6.5 [facility] Comment on above: Performed By: #### D ATCBC #### [facility] [address] [address] [address] Pablo Sheth Neutrophils/100 WBC (Bld) 68.4 % Normal 43.0-75.0 [facility] Comment on above: Performed By: #### D ATCBC #### [facility] [address] [place] [address] Dr. Pablo Sheth Platelet mean volume (Bld) [Entitic vol] 9.3 fL Critically low 9.5-13.5 [facility] Comment on above: Performed By: #### D ATCBC #### [facility] [address] [place] [address] Dr. Pablo Sheth PLT 313 103/ul Normal 150-450 [facility] Comment on above: Performed By: #### D ATCBC #### [facility] [address] [place] [address] Dr. Pablo Sheth RBC 4.69 106/ul Normal 4.20-5.40 [facility] Comment on above: Performed By: #### D ATCBC #### [facility] [address] [place] [address] Dr. Pablo Sheth WBC 13.4 103/ul Critically high 4.0-11.0 [facility] Comment on above: Performed By: #### D ATCBC #### [facility] [address] [place] [address] Dr. Pablo Sheth BERKLEY - TSHon 12-17-2021 TSH 1.241 uIU/mL Normal 0.358-3.740 [facility] Comment on above: Performed By: #### D ATTSH, DATBMP #### [facility] [address] [place] [address] Dr. Pablo Sheth TSH RANGE SEE BELOW Normal [facility] Comment on above: Result Comment: <0.3 4 UIU/ml HYPERTHYROID 0.34-5.60 UIU/ml EUTHYROID >5.60 UIU/ml HYPOTHYROID Performed By: #### D JOSE J DATBMP #### [facility] [address] [place] [address] Dr. Pablo Sheth BERKLEY- BMP WITH LIPIDon 2021 Anion gap [Moles/Vol] 11.9 mmol/L Normal [facility] Comment on above: Performed By: #### D JOSE J DATBMP #### [facility] [address] [place] [address] Dr. Pablo Sheth Calcium [Mass/Vol] 9.1 mg/dL Normal 8.5-10.1 [facility] Comment on above: Performed By: #### D JOSE J DATBMP #### [facility] [address] [place] [address] Dr. Pablo Sheth Chloride [Moles/Vol] 104 mmol/L Normal 98-107 [facility] Comment on above: Performed By: #### D JOSE J DATBMP #### [facility] [address] [place] [address] Dr. Pablo Sheth Cholesterol [Mass/Vol] 207 mg/dL Critically high <=200 [facility] Comment on above: Performed By: #### D JOSE J DATBMP #### [facility] [address] [place] [address] Dr. Pablo Sheth Cholesterol in HDL [Mass/Vol] 52 mg/dL Normal 40-60 [facility] Comment on above: Performed By: #### D JOSE J DATBMP #### [facility] [address] [place] [address] Dr. Pablo Sheth Cholesterol in LDL [Mass/Vol] 141.4 mg/dL Normal [facility] Comment on above: Performed By: #### D ATTTONYA DATBMP #### [facility] [address] [place] [address] Dr. Pablo Sheth CO2 [Moles/Vol] 29.3 mmol/L Normal 21.0-32.0 [facility] Comment on above: Performed By: #### D JOSE J DATBMP #### [facility] [address] [address] [address] Pablo Sheth Creatinine [Mass/Vol] 0.77 mg/dL Normal 0.55-1.02 [facility] Comment on above: Performed By: #### D ATTSH, DATBMP #### [facility] [address] [address] [address] Pablo Sheth EGFR-AF SALVADOREAN >60 Normal >=60 [facility] Comment on above: Performed By: #### D ATTSH, DATBMP #### [facility] [address] [address] [address] Pablo Sheth EGFR-NON AF SALVADOREAN >60 Normal >=60 [facility] Comment on above: Performed By: #### D ATTSH, DATBMP #### [facility] [address] [place] [address] Dr. Pablo Sheth Glucose [Mass/Vol] 109 mg/dL Critically high 74-106 [facility] Comment on above: Performed By: #### D ATTSH, DATBMP #### [facility] [address] [place] [address] Dr. Pablo Sheth HDL NORMAL > or = 60 mg/dl - LO W CARDIOVASCULAR RISK <40 mg/dl - HIGH CARDIOVASCULAR RISK Normal [facility] Comment on above: Performed By: #### D ATTSH, DATBMP #### [facility] [address] [address] [address] Pablo Sheth LDL CALC NORMAL SEE BELOW Normal [facility] Comment on above: Result Comment: <100 mg/dl OPTIMAL 100 - 129 mg/dl NEAR OR ABOVE OPTIMAL 130 - 159 mg/dl BORDERLINE HIGH 160 - 189 mg/dl HIGH >190 mg/dl VERY HIGH Performed By: #### D ATTSH, DATBMP #### [facility] [address] [address] [address] Pablo Sheth Potassium [Moles/Vol] 4.2 mmol/L Normal 3.5-5.1 [facility] Comment on above: Performed By: #### D ATTSH, DATBMP #### [facility] [address] [address] [address] Pablo Sheth Sodium [Moles/Vol] 141 mmol/L Normal 136-145 [facility] Comment on above: Performed By: #### D ATTTNOYA, DATBMP #### [facility] [address] [address] [address] Pablo Sheth Triglyceride [Mass/Vol] 68 mg/dL Normal <=150 [facility] Comment on above: Performed By: #### D ATTTONYA, DATBMP #### [facility] [address] [address] [address] Pablo Sheth Urea nitrogen [Mass/Vol] 26.0 mg/dL Critically high 7.0-18.0 [facility] Comment on above: Performed By: #### D ATTTONYA, DATBMP #### [facility] [address] [address] [address] Pablo Sheth Urea nitrogen/Creatinin e [Mass ratio] 33.8 mg/mg Normal [facility] Comment on above: Performed By: #### D ATTTONYA, DATBMP #### [facility] [address] [address] [address] Pablo Sheth VLDL CALC 13.6 mg/dL Normal [facility] Comment on above: Performed By: #### D JOSE J, DATBMP #### [facility] [address] [address] [address] Pablo Sheth Physician Referralon 022 Physician Referral [id number]:[address] [facility] Vital Signs Date Time Vital Sign Value Performing Clinician Facility 06-26-2024 08:30-0400 Body height 170.18 cm Cornelius Garrison MD Work Phone: [facility] 06-26-2024 08:30-0400 Body mass index (BMI) [Ratio] 27.6 kg/m2 Cornelius Garrison MD Work Phone: [facility] 06-26-2024 08:30-0400 Body weight 79.94 kg Cornelius Garrison MD Work Phone: [facility] 06-26-2024 08:30-0400 Diastolic blood pressure 107 mm[Hg] Cornelius Garrison MD Work Phone: [facility] 06-26-2024 08:30-0400 Heart rate 80 /min Cornelius Garrison MD Work Phone: [facility] 06-26-2024 08:30-0400 Respiratory rate 12 /min Cornelius Garrison MD Work Phone: [facility] 06-26-2024 08:30-0400 SaO2% (BldA) [Mass fraction] 95 % Cornelius Garrison MD Work Phone: [facility] 06-26-2024 08:30-0400 Systolic blood pressure 168 mm[Hg] Cornelius Garrison MD Work Phone: [facility] 06-05-2024 14:11-0500 Body height 170.2 cm Geoff Moyershyann BETHEA Work Phone: [facility] 06-05-2024 14:11-0500 Body mass index (BMI) [Ratio] 27.72 kg/m2 Geoff Walker DO Work Phone: [facility] 06-05-2024 14:11-0500 Body weight 80.29 kg Geoff Walker DO Work Phone: [facility] 04-15-2024 15:14-0500 Body height 170.18 cm Cornelius Garrison MD Work Phone: [facility] 04-15-2024 15:14-0500 Body mass index (BMI) [Ratio] 27.7 kg/m2 Cornelius Garrison MD Work Phone: [facility] 04-15-2024 15:14-0500 Body temperature 98.4 [degF] Cornelius Garrison MD Work Phone: [facility] 04-15-2024 15:14-0500 Body weight 80.28 kg Cornelius Garrison MD Work Phone: [facility] 04-15-2024 15:14-0500 Diastolic blood pressure 82 mm[Hg] Cornelius Garrison MD Work Phone: [facility] 04-15-2024 15:14-0500 Heart rate 83 /min Cornelius Garrison MD Work Phone: [facility] 04-15-2024 15:14-0500 Respiratory rate 20 /min Cornelius Garrison MD Work Phone: [facility] 04-15-2024 15:14-0500 SaO2% (BldA) [Mass fraction] 96 % Cornelius Garrison MD Work Phone: [facility] 04-15-2024 15:14-0500 Systolic blood pressure 128 mm[Hg] Cornelius Garrison MD Work Phone: [facility] 03-29-2024 08:56-0500 Body height 170.18 cm Cornelius Garrison MD Work Phone: [facility] 03-29-2024 08:56-0500 Body mass index (BMI) [Ratio] 27.2 kg/m2 Cornelius Garrison MD Work Phone: [facility] 03-29-2024 08:56-0500 Body weight 78.92 kg Cornelius Garrison MD Work Phone: [facility] 03-29-2024 08:56-0500 Diastolic blood pressure 86 mm[Hg] Cornelius Garrison MD Work Phone: [facility] 03-29-2024 08:56-0500 Heart rate 91 /min Cornelius Garrison MD Work Phone: [facility] 03-29-2024 08:56-0500 SaO2% (BldA) [Mass fraction] 95 % Cornelius Garrison MD Work Phone: [facility] 03-29-2024 08:56-0500 Systolic blood pressure 124 mm[Hg] Cornelius Garrison MD Work Phone: [facility] 03-11-2024 15:29-0500 Body height 170.18 cm Cornelius Garrison MD Work Phone: [facility] 03-11-2024 15:29-0500 Body mass index (BMI) [Ratio] 27.8 kg/m2 Cornelius Garrison MD Work Phone: [facility] 03-11-2024 15:29-0500 Body temperature 97.6 [degF] Cornelius Garrison MD Work Phone: [facility] 03-11-2024 15:29-0500 Body weight 80.73 kg Cornelius Garrison MD Work Phone: [facility] 03-11-2024 15:29-0500 Diastolic blood pressure 80 mm[Hg] Cornelius Garrison MD Work Phone: [facility] 03-11-2024 15:29-0500 Heart rate 82 /min Cornelius Garrison MD Work Phone: [facility] 03-11-2024 15:29-0500 Respiratory rate 20 /min Cornelius Garrison MD Work Phone: [facility] 03-11-2024 15:29-0500 SaO2% (BldA) [Mass fraction] 98 % Cornelius Garrison MD Work Phone: [facility] 03-11-2024 15:29-0500 Systolic blood pressure 134 mm[Hg] Cornelius Garrison MD Work Phone: [facility] 02-08-2024 13:55-0400 Body height 170.18 cm MD Cornelius Garrison Work Phone: [facility] 02-08-2024 13:55-0400 Body mass index (BMI) [Ratio] 27.9 kg/m2 MD Cornelius Garrison Work Phone: [facility] 02-08-2024 13:55-0400 Body weight 80.9 kg MD Cornelius Garrison Work Phone: [facility] 02-08-2024 13:55-0400 Diastolic blood pressure 78 mm[Hg] MD Cornelius Garrison Work Phone: [facility] 02-08-2024 13:55-0400 Heart rate 74 /min MD Cornelius Garrison Work Phone: [facility] 02-08-2024 13:55-0400 SaO2% (BldA) [Mass fraction] 96 % MD Cornelius Garrison Work Phone: [facility] 02-08-2024 13:55-0400 Systolic blood pressure 110 mm[Hg] MD Cornelius Garrison Work Phone: [facility] 01-24-2024 14:35-0400 Body height 170.18 cm MD Cornelius Garrison Work Phone: [facility] 01-24-2024 14:35-0400 Body mass index (BMI) [Ratio] 28.3 kg/m2 MD Cornelius Garrison Work Phone: [facility] 01-24-2024 14:35-0400 Body weight 82.21 kg MD Cornelius Garrison Work Phone: [facility] 01-09-2024 15:17-0400 Body height 167.64 cm [facility] 01-09-2024 15:17-0400 Body mass index (BMI) [Ratio] 28.2 kg/m2 [facility] 01-09-2024 15:17-0400 Body weight 79.37 kg [facility] 01-09-2024 15:17-0400 Diastolic blood pressure 91 mm[Hg] [facility] 01-09-2024 15:17-0400 Heart rate 76 /min [facility] 01-09-2024 15:17-0400 SaO2% (BldA) [Mass fraction] 97 % [facility] 01-09-2024 15:17-0400 Systolic blood pressure 135 mm[Hg] [facility] 11-01-2023 08:57-0400 Body height 167.64 cm [facility] 11-01-2023 08:57-0400 Body mass index (BMI) [Ratio] 28.2 kg/m2 [facility] 11-01-2023 08:57-0400 Body weight 79.37 kg [facility] 11-01-2023 08:57-0400 Diastolic blood pressure 90 mm[Hg] [facility] 11-01-2023 08:57-0400 Heart rate 63 /min [facility] 11-01-2023 08:57-0400 Systolic blood pressure 136 mm[Hg] [facility] 10-13-2023 09:19-0400 Body height 167.64 cm [facility] 10-13-2023 09:19-0400 Body mass index (BMI) [Ratio] 28 kg/m2 [facility] 10-13-2023 09:19-0400 Body weight 78.92 kg [facility] 10-13-2023 09:19-0400 Diastolic blood pressure 76 mm[Hg] [facility] 10-13-2023 09:19-0400 Heart rate 78 /min [facility] 10-13-2023 09:19-0400 SaO2% (BldA) [Mass fraction] 98 % [facility] 10-13-2023 09:19-0400 Systolic blood pressure 118 mm[Hg] [facility] 07-31-2023 10:09-0400 Body height 167.64 cm [facility] 07-31-2023 10:09-0400 Body mass index (BMI) [Ratio] 28.8 kg/m2 [facility] 07-31-2023 10:09-0400 Body weight 80.9 kg [facility] 07-31-2023 10:09-0400 Diastolic blood pressure 89 mm[Hg] [facility] 07-31-2023 10:09-0400 Heart rate 74 /min [facility] 07-31-2023 10:09-0400 Systolic blood pressure 138 mm[Hg] [facility] 12-22-2021 14:20-0400 Blood Pressure Location Mihaela CASAS [facility] [place] 12-22-2021 14:20-0400 Diastolic blood pressure 80 mm[Hg] Mihaela CASAS [facility] [place] 12-22-2021 14:20-0400 Heart rate 72 /min Mihaela KERNShahriar [facility] [place] 12-22-2021 14:20-0400 Respiratory rate 16 /min Mhiaela KERNShahriar [facility] [place] 12-22-2021 14:20-0400 Systolic blood pressure 116 mm[Hg] Mihaela CASAS [facility] [place] Encounters Encounter Date Encounter Type Care Provider Facility Start: 10-01-2024 End: 10-01-2024 Emergency department patient visit CORNELIUS GARRISON [facility] Start: 07-30-2024 End: 07-30-2024 ambulatory Cornelius Garrison MD Facility:[facility] Start: 07-22-2024 End: 07-22-2024 ambulatory Cornelius Garrison MD Facility:[facility] Start: 07-08-2024 End: 07-08-2024 ambulatory Duong Oreilly MD Facility:[facility] Start: 06-26-2024 End: 06-26-2024 ambulatory Cornelius Garrison MD Work Phone: [facility] Work Phone: Start: 06-26-2024 End: 06-26-2024 Patient encounter procedure Cornelius Garrison MD Work Phone: [facility] Physician [facility] Work Phone: Start: 06-17-2024 End: 06-17-2024 ambulatory Duong Oreilly MD Facility:[facility] Start: 06-06-2024 End: 06-06-2024 ambulatory Cornelius Garrison MD Facility:[facility] Start: 06-05-2024 End: 06-05-2024 Office outpatient new 45 minutes Geoff Walker DO Work Phone: [facility] Comment on above: Thyroid nodule (CMS/ HCC) (Primary Dx) Start: 06-05-2024 End: 06-05-2024 Bamboo flowsheet Geoff Walker DO Work Phone: [facility] Start: 06-05-2024 End: 06-05-2024 Bamboo flowsheet Geoff Walker DO Work Phone: [facility] Start: 06-05-2024 End: 06-05-2024 ambulatory GEOFF WALKER Not Available Start: 05-13-2024 End: 05-13-2024 ambulatory Duong Oreilly MD Facility: [place] Start: 05-10-2024 ambulatory Cornelius Garrison MD Work Phone: [facility] Work Phone: Start: 05-10-2024 Non-patient / Non-visit Cornelius Garrison MD Work Phone: [facility] Work Phone: Start: 04-29-2024 End: 04-29-2024 ambulatory Duong Oreilly MD Facility: [place] Start: 04-22-2024 End: 04-22-2024 ambulatory Cornelius Garrison MD Work Phone: [facility] Work Phone: Start: 04-22-2024 End: 04-22-2024 Departed Referred Cornelius Garrison MD Work Phone: [facility] [place] [facility] Start: 04-22-2024 End: 04-22-2024 ambulatory Cornelius Garrison MD Facility:[facility] [place] Start: 04-15-2024 End: 04-15-2024 ambulatory Cornelius Garrison MD Work Phone: [facility] Work Phone: Start: 04-15-2024 End: 04-15-2024 Patient encounter procedure Cornelius Garrison MD Work Phone: [facility] Physician [facility] Work Phone: Start: 04-01-2024 [...] encounter procedure Cornelius Garrison MD Work Phone: [facility] Work Phone: Start: 03-25-2024 End: 03-25-2024 ambulatory Cornelius Garrison MD Facility:[facility] Start: 03-21-2024 Non-patient / Non-visit Cornelius Garrison MD Work Phone: [facility] Work Phone: Start: 03-11-2024 End: 03-11-2024 Patient encounter procedure Cornelius Garrison MD Work Phone: [facility] Work Phone: Start: 03-04-2024 Non-patient / Non-visit Cornelius Garrison MD Work Phone: [facility] Work Phone: Start: 03-04-2024 End: 03-04-2024 Patient encounter procedure Cornelius Garrison MD Work Phone: [facility] Work Phone: Start: 03-04-2024 End: 03-04-2024 ambulatory Cornelius Garrison Facility:[facility] Start: 02-23-2024 End: 02-23-2024 ambulatory Cornelius Garrison MD Facility:[facility] Start: 02-19-2024 End: 02-19-2024 ambulatory Cornelius Garrison MD Facility:[facility] Start: 02-13-2024 End: 02-13-2024 ambulatory Cornelius Garrison MD Facility:[facility] Start: 02-08-2024 End: 02-08-2024 ambulatory MD Cornelius Garrison Work Phone: [facility] Work Phone: Start: 02-08-2024 End: 02-08-2024 Patient encounter procedure MD Cornelius Garrison Work Phone: [facility] Work Phone: Start: 02-07-2024 Non-patient / Non-visit MD Mala Garrison Work Phone: [facility] Work Phone: Start: 02-01-2024 Non-patient / Non-visit Cornelius Garrison MD Work Phone: [facility] Work Phone: Start: 01-24-2024 End: 01-24-2024 ambulatory MD Cornelius Garrison Work Phone: [facility] Work Phone: Start: 01-24-2024 End: 01-24-2024 Patient encounter procedure MD Cornelius Garrison Work Phone: [facility] Physician [facility] Work Phone: Start: 01-24-2024 End: 01-24-2024 Patient encounter procedure MD Cornelius Garrison Work Phone: [facility] Start: 01-24-2024 End: 01-24-2024 ambulatory MD Cornelius Garrison Work Phone: [facility] Work Phone: Start: 01-19-2024 Non-patient / Non-visit MD Mala Garrison Work Phone: [facility] Work Phone: Start: 01-19-2024 Non-patient / Non-visit MD Mala Garrison Work Phone: [facility] Work Phone: Start: 01-09-2024 End: 01-09-2024 ambulatory [facility] Work Phone: Start: 01-09-2024 End: 01-09-2024 Patient encounter procedure [facility] Physician [facility] Work Phone: Start: 11-01-2023 End: 11-01-2023 ambulatory [facility] Work Phone: Start: 11-01-2023 End: 11-01-2023 Patient encounter procedure [facility] Work Phone: Start: 10-13-2023 End: 10-13-2023 ambulatory [facility] Work Phone: Start: 10-13-2023 End: 10-13-2023 Patient encounter procedure [facility] Work Phone: Start: 07-31-2023 End: 07-31-2023 ambulatory [facility] Work Phone: Start: 07-31-2023 End: 07-31-2023 Patient encounter procedure [facility] Work Phone: Start: 05-26-2023 Non-patient / Non-visit [facility] Work Phone: Start: 02-01-2022 End: 02-02-2022 ambulatory [facility] CAS[facility] Start: 02-01-2022 End: 02-01-2022 Patient encounter procedure Mihaela CASAS General Surgery [facility] Start: 01-13-2022 Encounter for preprocedural laboratory examination DR MIHAELA CASAS [facility] Start: 01-12-2022 End: 01-13-2022 ambulatory Mihaela CASAS Facility::[id number] Start: 01-10-2022 End: 01-11-[address] MIHAELA CASAS Facility:[facility] Start: 01-10-2022 End: 01-11-2022 Encounter for preprocedural laboratory examination DR MIHAELA CASAS Facility: Start: 12-22-2021 End: 12-23-2021 ambulatory Mihaela CASAS Facility:[facility] Start: 12-22-2021 End: 12-22-2021 Patient encounter procedure Mihaela CASAS General Surgery [facility] Start: 12-17-2021 End: 12-18-2021 ambulatory CORNELIUS GARRISON PROVIDER Facility:[facility] Procedures Date Procedure Procedure [...] Screening for malign ant neoplasm of colon [facility] Start: 06-10-2025 End: 06-10-2025 Patient encounter procedure 06/10/2025 8:45 AM EST Office Visit ZAINAB KENDALL [address] [place] [id number] Geoff Walker, DO [address] [place], [place] [id number] [facility]ENDALL Start: 06-26-2024 Patient referral [facility] Work Phone: Start: 06-05-2024 End: 06-05-2024 Patient encounter procedure 06/05/2024 2:30 PM EST Office Visit ZAINAB KENDALL [address] [place] [address] Geoff Walker, DO [address] [place], [place] [id number] Arrived ZAINAB KENDALL Comment on above: Arrived Start: 05-10-2024 Patient referral [facility] Work Phone: Start: 04-05-2024 Patient referral [facility] Work Phone: Start: 04-01-2024 End: 04-01-2024 Patient encounter procedure 04/01/2024 3:00 PM EST Procedure Visit [facility] [address] [place] [address] Kane Perez, DO [address] [place], [place] [id number] Arrived [facility] Comment on above: Arrived Start: 01-24-2024 X-ray of both knees, three views XR knee BI 3V - NOT FOR ER USE [facility] Start: 01-24-2024 XR Knee - bilateral [address] [facility] Start: 01-22-2024 Pneumococcal Vaccine : 65+ Years (1 of 1 - PCV) Pneumococcal Vaccine: 65+ Years (1 of 1 - PCV) [facility] Start: 01-10-2024 Patient referral [facility] Work Phone: Start: 12-10-2023 Influenza vaccination Influenza Vacc ine (#1) [facility] Start: 1999 Screening for malign ant neoplasm of breast Mammogram [facility] Start: 1989 Screening for malign ant neoplasm of cervix [facility] Start: 01-22-1980 Screening for malign ant neoplasm of cervix Pap Smear [facility] Start: 1959 Screening for malign ant neoplasm of colon [facility] CT Unspecified body region [facility] CT Unspecified body region [facility] DXA Skeletal system.axial Views for bone density [facility] Patient Education Low back pain in adults [facility] Work Phone: Patient referral [facility] Work Phone: US Lower extremity v ein - right [facility] US Thyroid gland [facility] Immunizations Immunization Date Immunization Notes Care Provider Fa cility 03-11-2024 diphtheria, tetanus toxoids and acellular pertussis vaccine, unspecified formulation Cornelius Garrison MD Work Phone: [facility] 03-29-2021 COVID-19 mRNA, Comirnaty (Pfizer) [facility] 08-11-2020 COVID-19 mRNA, Comirnaty (Pfizer) [facility] 07-21-2020 COVID-19 mRNA, Comirnaty (Pfizer) [facility] 10-07-2018 diphtheria, tetanus toxoids and acellular pertussis vaccine, unspecified formulation [facility] 02-05-2014 tetanus and diphther ia toxoids, adsorbed, preservative free, for adult use (5 Lf of tetanus toxoid and 2 Lf of diphtheria toxoid) [facility] Payers Date Payer Category Payer Other GENERIC OTHER [id number] 2024 Unknown [id number] 2024 Medicare [id number] 2024 Medicare [id number] 2023 Unknown 2021 Unknown [id number] 1959 Self-pay [id number] 1959 Unknown [id number] 2.16.840.1.938850.3.579.2 .727 1959 Unknown [id number] 2.16.840.1.022624.3.579.2 .727 1959 Unknown [id number] 2.16.840.1.939052.3.579.2 .727 1959 Unknown [id number] 2.16.840.1.015202.3.579.2 .727 1959 Unknown [id number] 2.16.840.1.101207.3.579.2 .593 1959 Unknown [id number] 2.16.840.1.638524.3.579.2 .593 1959 Unknown [id number] 2.16.840.1.121569.3.579.2 .1259 1959 Unknown [id number] 2.16.840.1.264258.3.579.2 .1259 1959 Unknown [id number] 2.16.840.1.693153.3.579.2 .196 1959 Unknown [id number] 2.16.840.1.791475.3.579.2 .196 1959 Unknown [id number] 2.16.840.1.407220.3.579.2 .196 1959 Unknown [id number] 2.16.840.1.523748.3.579.2 .196 1959 Unknown [id number] 2.16.840.1.914394.3.579.2 .196 1959 Unknown [id number] 2.16.840.1.179829.3.579.2 .196 1959 Unknown [id number] 2.16.840.1.633563.3.579.2 .196 1959 Unknown [id number] 2.16.840.1.846375.3.579.2 .196 1959 Unknown [id number] 2.16.840.1.028695.3.579.2 .196 1959 Unknown [id number] 2.16.840.1.570232.3.579.2 .196 1959 Unknown [id number] 2.16.840.1.603648.3.579.2 .196 1959 Unknown [id number] 2.16.840.1.629973.3.579.2 .196 1959 Unknown [id number] 2.16.840.1.162244.3.579.2 .1286 Private Health Insurance [employer] [facility] G [id number] Unknown [id number] Unknown [id number] 2.16.840.1.730529.3.579.2 .593 Unknown MMO [employer] [id number] Social History Date Type Detail Facility Start: 12-22-2021 Heavy tobacco smoker (finding) [facility] [place] [facility] [place] Start: 06-05-2024 Female General [facility] Start: 07-31-2023 End: 04-15-2024 Tobacco smoking status NHIS Smoker (finding) [facility] Start: 1960 Sex Assigned At Female F [facility] Tobacco smoking consumption unknown [facility] Start: 1960 Sex assigned at Not on file [facility] Start: 04-15-2024 End: 06-26-2024 Sex Female (finding) [facility] Start: 06-05-2024 Tobacco smoking stat us [place]IS Smokes tobacco daily [facility] History of tobacco use Cigarette Smoker [facility] Start: 06-05-2024 Tobacco use and exposure Smokeless tobacco non-user [facility] Start: 06-05-2024 Alcoholic beverage intake Ex-drinker (finding) [facility] Start: 06-05-2024 History of Social function [facility] Functional Status Date Assessment Result Facility 12-22-2021 N/A [facility] [place] Clinical Notes 12-22-2021 to 06-05-2024 Geoff Walker, [...] FNA was performed which came back as [place] III, Afirma testing was then done showing [...] in 1 year documented in this encounter [facility] 05-10-2024 Hospital Discharge instructions Ambulatory OrdersReferral to ENT Time Frame: 05/10/24, Location: None Selected [facility] Work Phone: 04-01-2024 History of Present illness Narrative Images from the original note were not included. Reason for Appointment: EMG Patient: Cristine Manley : 1960 EMG Computer: [employer] Referring Physician: Ofelia Arceo PA-C EMG: BLE bonsai culturist: Daniel Dougherty RT(R) Office Location: [place] Reason for EMG: c/o numbness/tingling in bilateral [...] of the test. documented in this encounter [facility] 03-29-2024 Evaluation note Diagnosis Onset Date Resolution Lumbar radiculopathy, chronic acute March 29 8:45am Pain in posterior right lower extremity acute March 29 8:45am Right thyroid nodule acute 2023 8:45am Cigarette nicotine dependence with nicotine-induced disorder acute April 15 3:12pm Encounter for screening for lung cancer acute April 15 3:12pm terminal gauger (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 of 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 acute April 15, 2024 3:12pm Moderate persistent asthma, uncomplicated acute April 3:12pm Lumbar radiculopathy, chronic acute June 26, 2024 8:28am [facility] Work Phone: 1(972) 419-849112-02-2024 Evaluation note* Diagnosis Onset Date Resolution Status [...] lung cancer acute April 15 3:12pm terminal gauger (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 of 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 acute April 15 3:12pm Moderate persistent asthma, uncomplicated acute April 15 3:12pm [facility] Work Phone: 1(424) 988-754611-15-2024 NotePatient Education Materials Name: Cristine Manley Current Date: 02/23/2024 07:10:10 [place] : 1960 The following sheet(s) are the [...] for continued care. Thank you for choosing [facility] for your care.[facility]10-31-2024 Evaluation note* Diagnosis Onset Date Resolution [...] lung cancer acute April 15 3:12pm terminal gauger (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 of 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 acute April 15 3:12pm Moderate persistent asthma, uncomplicated acute April 15 3:12pm [facility] Work Phone: 1(193) 796-390710-16-2024 Evaluation note* Diagnosis Onset Date Resolution Status [...] [facility] Work Phone: 1(478) 609-670710-05-2022 NoteOPERATIVE NOTE OPERATION DATE: 01/12/2022 PREOPERATIVE DIAGNOSIS: [...] the polyp. CC: Cornelius Garrison M.D.[facility] [id number] NoteChief Complaint consultation for epigastric pain HPI [...] pulmonary dise (more content not included)...[facility]Result Comment: Electronically Signed By: RAJINDER TAVERAS, Mihaela Trujillo\Date and Time Signed: 12/22/21 17:34 EDTEvaluation + Plan note No data available for this section General Surgery [place] Evaluation note* Diagnosis Onset Date Resolution Status [...] of skin sensation documented in this encounter [facility] HealthcareEvaluation [facility]* Diagnosis Thyroid nodule (CMS/HCC)- Primary Nontoxic uninodular goiter documented in this encounter [facility] Healthcare[facility]ospital Discharge instructions No data available for this section General Surgery [place] [facility] Discharge instructionsAmbulatory Orders* Referral to Orthopedics Time Frame: 06/26/24, Location: None Selected [facility] Work Phone: Progress note No data available for this section General Surgery [place] Reason for visit Narrative* Other Medical (Routine) - Closed Specialty Diagnoses / Procedures Referred By Mallorie t Referred To Contact Neurology Diagnoses Neuralgia and neuritis, unspecified Procedures MI NEEDLE EMG EA EXTREMTY W/PARASPINL AREA COMPLETE MI NERVE CONDUCTION STUDIES 9-10 STUDIES Ofelia Arceo PA-C [address] [place] [address] Phone: tel: fax: Cecil Fields MD [address] [place] [address] Phone: tel: fax: Referral ID Status Reason Start Date Expiration Date V isits Requested Visits Authorized [id number] Closed Perform Procedure 03/27/2024 09/23/2024 1 1 [...] Back & Knee Pain-HIGH RISK March 8:45am 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 Asthma COPD April 15 025 3:12pm Reason for Visit Admit Date Bilateral knee pain January 24, 2024 2 :05pm Primary osteoarthritis of both knees Jan 2:05pm COPD exacerbation February 08, 2024 1 [...] Back & Knee Pain-HIGH RISK March 8:45am 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 Asthma COPD April 15, [...] Back & Knee Pain-HIGH RISK March 8:45am 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 Asthma COPD April 15, [...] Back & Knee Pain-HIGH RISK March 8:45am 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 Asthma COPD April 15, [...] lung cancer April 15, 2024 3:12pm terminal gauger (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 of inhaled stero ids April [...] End: October 13, 2023 Brittanie Siu APRN IMPORT CLERK-C Attending Provider Act [employer]imo Start: October 13, [...] Provider Active S tart: January 24, 2024 Experienced Truck Driver Relationship Specialty Start Date End Date Cornelius Garrison MD [address] [place] [address] PCP - General Family Medicine 03/27/24 Ofelia Arceo MD [address] [place] [address] Referring Physician Internal Medicine 03/27/24 Experienced Truck Driver Relationship Specialty Start Date End Date Cornelius Garrison MD [address] [place] [phone] PCP - General Family Medicine 03/27/24 Ofelia Arceo MD [address] [place] [address] Referring Physician Internal Medicine 03/27/24 Experienced Truck Driver Relationship Specialty Start Date End Date Cornelius Garrison MD [address] [place] [address] PCP - General Family Medicine 03/27/24 Ofelia Arceo MD [address] [place] [address] Referring Physician Internal Medicine 03/27/24 Geoff Walker DO [address] [place] [address] Otolaryngology 06/05/24 Experienced Truck Driver Relationship Specialty Start Date End Date Cornelius Garrison MD [address] [place] [address] PCP - General Family Medicine 03/27/24 Ofelia Arceo MD [address] [address] Referring Physician Internal Medicine 03/27/24 Geoff Walker DO [address] [place] [address] Otolaryngology 06/05/24 INFORMATION SOURCE (unrecogn ized section and content) DATE CREATED AUTHOR 02/21/2022 [facility] DATE CREATED AUTHOR AUTHOR'S ORGANIZ ATION 04/01/2022 [facility] DATE CREATED AUTHOR AUTHOR'S ORGANIZ ATION 05/12/2024 [facility] DATE CREATED AUTHOR AUTHOR'S ORGANIZ ATION 06/07/2024 [facility] EPIC DATE CREATED AUTHOR AUTHOR'S ORGANIZ ATION 08/01/2024 [facility] DATE CREATED AUTHOR AUTHOR'S ORGANIZ ATION 10/02/2024 [facility] Goals (unrecognized section and content) Goals may [...] BE BASED ON THE PRIMARY CLINICAL RECORDS. [facility]. provides no warranty or guarantee of the accuracy or completeness of information in this document.
--- NOTE | 2024-11-03 05:16 | PC.NURSE ---
Patient reports blood in urine and lower abdominal/pelvic pain.
--- NOTE | 2024-11-03 05:19 | PC.NURSE ---
Urine sample obtained, urine bright red in color.
--- NOTE | 2024-11-03 05:22 | ED_ITS ---
HPI - Female Genitourinary General Chief complaint: Urogenital-Female Stated complaint: BLOOD IN URINE Time Seen by Provider: 11/03/24 05:15 Source: patient Mode of arrival: walk-in History of Present Illness HPI Narrative: states one month ago she was seen at an ER and a scan demonstrated a nodule in her bladder. Yesterday developed hematuria. This am has lower abdominal pain. No fever or nausea Related Data Home Medications ?Medication ?Instructions ?Recorded ?Confirmed albuterol sulfate 2.5 mg/3 mL 2.5 mg inhalation Q4H CA N 01/19/24 11/03/24 (0.083 %) solution for nebulization shortness of breat h or wheezing albuterol sulfate 90 mcg/actuation 2 puff inhalation Q 4H 01/19/24 11/03/24 aerosol inhaler hydrocodone 5 mg-acetaminophen 325 1 tab PO Q8H 11/03/24 mg tablet tizanidine 4 mg tablet 4 mg PO Q8H PRN muscle spast icity 01/19/24 11/03/24 omeprazole 20 mg capsule,delayed 20 mg PO DAILY 11/03/24 release bupropion HCl 150 mg 24 hr tablet, 150 mg PO DAILY 07/22/24 extended release fluticasone fur. 200 mcg-umeclid 1 inh inhalation LUKASZ Y 04/22/24 11/03/24 62.5 mcg-vilant 25 mcg inhalat.powder (Trelegy Ellipta) bupropion HCl 300 mg 24 hr tablet, 300 mg PO DAILY 11/03/24 extended release Allergies Allergy/AdvReac Type Severity Reaction Status Date / Time Sulfa (Sulfonamide Allergy Unknown Unknown Verified 11/03/24 04:57 Antibiotics) levofloxacin (From Levaquin) Allergy Rash Verified 11/03/24 04:57 acetaminophen (From Percocet) AdvReac Intermediate Vomiting Verified 11/03/24 04:57 oxycodone (From Percocet) AdvReac Intermediate Vomiting Verified 11/03/24 04:57 Review of Systems ROS Status of ROS 10 or more systems reviewed and unremark able except as noted in history and below [facility] Medical History 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 (ICD-10) Asthma ?J45.909 - Unspecified asthma, uncomplicated (ICD-10) Surgical History H/O fine needle aspiration with imaging guidance ?Z98.890 - Other specified postprocedural states (ICD-10) Status post discectomy ?Z98.890 - Other specified postprocedural states (ICD-10) History of bunionectomy ?Z98.890 - Other specified postprocedural states (ICD-10) H/O bilateral oophorectomy ?Z90.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, bilateral (ICD-10) History of tonsillectomy ?Z90.89 - Acquired absence of other organs (ICD-10) Social History Little interest or pleasure in doing things: not at all Feeling down, depressed, or hopeless: not at all Exam Constitutional Vital Signs, click to edit/add: Last Vital Signs Pulse 74 11/03/24 04:55 Resp 20 11/03/24 04:55 BP 158/84 H 11/03/24 04:55 Pulse Ox 98 11/03/24 04:55 O2 Del Method Room Air 11/03/24 04:55 Common normals: no apparent distress, average body habitus, oriented x3, no limitations, healthy appearing, alert and well nourished [facility] Common normals: normocephalic and head/scalp atraumatic Eye Common normals: EOMs intact bilaterally and conjunctivae normal Respiratory Common normals: normal respiratory effort, no retractions, no use of accessory muscles and clear to auscultation bilaterally Cardio Common normals: regular rate, regular rhythm, S1 normal heart sound and S2 clarence l heart sound GI Other: mild supra pubic tenderness Extremity Common normals: normal to inspection and full ROM Neuro Common normals: oriented x3, CN's II-XII intact bilaterally and moves all extremities Psych Appearance: grossly normal Course Vital Signs Vital signs: Vital Signs Pulse Rate 74 11/03/24 04:55 Respiratory Rate 20 11/03/24 04:55 Blood Pressure 158/84 H 11/03/24 04:55 Pulse Oximetry 98 07/27/25 04:55 Oxygen Delivery Method Room Air 11/03/24 04:55 Pulse Rate 74 11/03/24 04:55 Respiratory Rate 20 11/03/24 04:55 Blood Pressure 158/84 H 11/03/24 04:55 Pulse Oximetry 98 11/03/24 04:55 Oxygen Delivery Method Room Air 11/03/24 04:55 MDM - Female Genitourinary MDM Narrative Medical decision making narrative: patient presents with hematuria that started yesterday. This AM she now has suprapubic pain and mild tenderness. No guarding or fever. States something was found in her bladder one month ago at another hospital. Her UA is remarkable for gross hematuria and also has leukocytes. Will plan course of macrobid and recommend she followup with urology Lab Data Labs: Lab Results 11/03/24 Range/Units 05:18 Urine Color Dk. red (YELLOW) Urine Clarity Cloudy A (CLEAR) Urine pH Color interference A (5.0-9.0) Ur Specific Gabbs 1.015 (1.005-1.025) Urine Protein Color interference A (NEG/TRACE) mg/dL Urine Glucose (UA) Color interference A (NEGATIVE) mg/dL Urine Ketones Color interference A (NEGATIVE) mg/dL Urine Occult Blood Color interference A (NEGATIVE) Urine Nitrite Color interference A (NEGATIVE) Urine Bilirubin Color interference A (NEGATIVE) Urine Urobilinogen Color interference A (0.2-1.0) EU/dL Ur Leukocyte Esterase Color interference A (NEGATIVE) Urine RBC >100 A (0-2) #/HPF Urine WBC 20-50 A (NONE SEEN) #/HPF Ur Squamous Epith Cells None seen (NONE/RARE) #/LPF Urine Crystals None seen (None Seen) #/HPF Urine Bacteria Trace A (NONE SEEN) #/HPF Urine Casts None seen (NONE SEEN) #/LPF Urine Mucus None seen (NONE SEEN) Ur Culture Indicated? Yes-[facility] Discharge Plan Discharge Chief Complaint: Urogenital-Female Clinical Impression: Acute UTI (urinary tract infection), Hematuria Patient Disposition: Home, Self-Care Prescriptions / Home Meds: No Action albuterol sulfate 2.5 mg /3 mL (0.083 %) solution for nebulization 2.5 mg inhalation Q4H PRN (Reason: shortness of breath or wheezing) albuterol sulfate 90 mcg/actuation HFA aerosol inhaler 2 puff INHALATION Q4H hydrocodone-acetaminophen 5-325 mg tablet 1 tab PO Q8H tizanidine 4 mg tablet 4 mg PO Q8H PRN (Reason: muscle spasticity) bupropion HCl 150 mg tablet extended release 24 hr 150 mg PO DAILY Trelegy Ellipta 200-62.5-25 mcg blister with device 1 inh INHALATION DAILY omeprazole 20 mg capsule,delayed release(DR/EC) 20 mg PO DAILY bupropion HCl 300 mg tablet extended release 24 hr 300 mg PO DAILY Print Language: Romanian Instructions: Urinary Tract Infection in Women (ED), Hematuria (ED) Additional Instructions: follow up with urology next week Referrals: Celia Blank MD [Primary Care Provider, Family Practice] - 1 week
[2024-11-03 05:33] LABS: Glucose Urine UA COLOR INTERFERENCE mg/dL (NEGATIVE)
[2024-11-03 05:43] LABS: Cast Seen? NONE SEEN #/LPF (NONE SEEN); Crystals Seen? None Seen #/HPF (None Seen); Urine Culture Indicated YES-FRMC
[2024-11-03] MEDS: NITROFURANTOIN MONOHYD/MAC-CRST 100 MG CAPSULE PO (06:34)
== END 2024-11-03 06:38 | disposition home or self-care (01) ==
PROVIDERS: Emergency Provider Internal Medicine; PCP Family Medicine
DX: N39.0 Urinary tract infection, site not specified (principal); R31.9 Hematuria, unspecified; Z90.722 Acquired absence of ovaries, bilateral
CPT/HCPCS: 81001; 87086; 99283

== ENCOUNTER 2024-11-12 03:25 | Inpatient (IN) | payer MEDICARE, OTHER, SELFPAY ==
--- OUTSIDE RECORDS SUMMARY | 2024-10-16 05:43 | XMS_ITS ---
Author Organization [facility] in [place] Address [address] [place] [address] Care Team Providers Care Superintendent Electric Power Name Role Phone Celia Blank Primary Care Provider Scott Cramer Unavailable [phone] REASON FOR VISIT Appointment Encounters Encounter Location Date Provider Diagnosis Pulmonary Medicine [place] [address] [place] [address] 10/16/2024 Scott Dennis Plan Of Treatment No Information Progress Notes * Cristine MANLEY KDOB: (64 yo F)Acc No.[id number]:10/16/2024 Patient: Amanda ALEJANDREandrea Hairston :1960 A ge:64 Y S ex:Female Address:[address] [place] [address], [id number] * true * Date: Generated for Darya santiago/Alda/eTransmitting on: 0 11/12/2024 03:30 AM EDT
--- OUTSIDE RECORDS SUMMARY | 2024-10-17 11:00 | XMS_ITS ---
Author Organization [facility] in [place] Address [address] [place] [address] Care Team Providers Care Wafer Fab Technician Name Role Phone Celia Blank Primary Care Provider Scott Cramer [phone] Allergies Allergen (clinical drug ingredient) Drug/Non Drug [...] Risk Notes Problem Uncomplicated moderate persistent asthma (660916468) Moderate persistent asthma, uncomplicated (J45.40) Active confirmed Problem Mental disorder caused by drug (017807126) Cigarette nicotine dependence with nicotine-induced disorder (F17.219) Active confirmed Problem Long-term current use of inhaled steroid (946895875) 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) Active confirmed Problem Multiple pulmonary nodules (R91.8) Active confirmed Vital Signs Weight 171.8 lbs 10/17/2024 Height 67.0 in 10/17/2024 Blood pressure systolic 103 mm Hg 10/18/19 25 Blood pressure diastolic 67 mm Hg 025 Temperature 96.6 degrees Fahrenheit 10/18/19 25 Heart Rate 80 /min 10/17/2024 Respiratory Rate 18 /min 10/17/2024 BMI 26.9 kg/m2 10/17/2024 Oximetry 95 % 10/17/2024 Procedures Procedure Date Ordered Date Performed Result Body Sit e Smoking/Tobacco Counseling 3 min up to 10-performed 10/17/2024 10/17/2024 N/A Encounters Encounter Location Date Provider Diagnosis Pulmonary Medicine [address] [address] 10/17/2024 Scottly Dennis Moderate persistent asthma, uncomplicated J45.40 ; [...] PFT Data: 03/04/2024 -FEV1 /FVC: 73%-FEV1: 65%-FVC: 68%-BEO71-23%: 56%-Bronchodilator response: Partial-RV: 118%-T%-DLCO: 77% Progress Notes * Cristine MANLEY KDOB: [birth year] (64 yo F)Acc No.[id number]:10/17/2024 Follow Up Patient: Cristine ALEJANDRE Provider: Aliya Dennis DO :1960 A ge:64 Y S ex:Female Date:10/17/2024 Address:[address] [place] [address] Pcp:Celia Blank Check In:02:52 PM ESTCheck O ut:03:42 PM EST Subjective: * Chief Complaints: * F /U-6 MO. ASTHMA ([facility]) * HPI: G eneral: TRANSFER FROM [facility] PULMONOLOGY Patient was last seen @ [facility] Pulmonology 04/15/2024. She had benefit with Trelegy [...] for Asthma. Patient was seen by at [facility] Pulmonary and requested to transfer to [facility] Pulmonary. Patient admits to smoking 1PPD. [...] tiZANidine HCl 4 MG Tablet Oral Trelegy Ellipta(Nmyfwaypjkv-Igthwcayg-Rgxyfm) 200-62.5-25 MCG/ACT Aerosol Powder Breath Activated inhale [...] HCl 4 MG Tablet Oral Taking Trelegy Ellipta(Jgrzbvicbrh-Wjevvxahp-Eymklp) 200-62.5-25 MCG/ACT Aerosol Powder Breath Activated inhale [...] 03/04/2024 -FEV1/FVC: 73% -FEV1: 65% -FVC: 68% -IUR83-02%: 56% -Bronchodilator response: Partial -RV: 118% -T% [...] Reason: D rug declined by patient B SD ACTION PLAN Above Normal BMI Follow-up D ietary management education, guidance, and counseling * Follow Up: 6 Months * * Sign off status: Completed Visit Status: C HK (Check Out) true * Provider: Aliya Dennis DO Date: 0 10/17/2024 Generated for Darya santiago/Alda/Estelitaitting on: 0 11/12/2024 03:30 AM EDT History and Physical Notes * HPI (History of Present Illness) Category Sub-Category Detail Notes Category Not es General Patient present s for a follow-up for Asthma. Patient was seen by at [facility] Pulmonary and requested to transfer to [facility] Pulmonary. Patient admits to smoking 1PPD. [...] APPEARANCE: Appears stated age Skin Normal Mouth [place] and moist Trachea Midline Chest Normal Respiratory Normal Movements, Ef fort Normal Auscultation Diminished with coar se breath sounds and expiratory wheezes Cardiac Regular rate and rhy thm Gastrointestinal Normal Vascular No edema Musculoskeletal Normal posture Neurological Focal, intact Psychiatric Alert and oriented x 3 Mentation/Cognition Normal Oropharynx Mallampati Class II
--- OUTSIDE RECORDS SUMMARY | 2024-10-18 07:30 | XMS_ITS ---
Author Organization [facility] Address [address] [place] [address] Care Team Providers Care Team Physician Name Role Phone Celia Blank M.D. Primary Care Provider Unavail able Jose L Vance Unavailable [phone] Allergies Allergen (clinical drug ingredient) Drug/Non Drug Allergy documented on EMR Reaction Allergy Type Onset Date Status BIAXIN (uncoded) Unknown Allergy Act onesimo LEVAQUIN (uncoded) Unknown Allergy A ctive SULPHA (uncoded) Unknown Allergy Act onesimo Percocet Unknown Drug Allergy Active REASON FOR VISIT CT myelogram review of the Lumbar Spine Medications Medication SIG (Take, Route, Fr equency, Duration) Notes Start Date End Date Status Trelegy Ellipta Acti ve PriLOSEC Active buPROPion Active tiZANidine Active HYDROcodone Active albuterol Active Social History Tobacco Use: Social History Observation Description Date Details (start date - stop date) Light tobacco s moker NA - NA Smoking History Question Answer Notes Smoking Status light tobacco smoker AUDIT-C (Standard) Question Answer Notes Did you have a drink containing alcohol in the p ast year? 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 L3-S1 degenerative disc disease and facet arthropathy with stenosis and radiculopathy 10/18/2024 Lumbar stenosis with neurogenic claudication (ICD-10 - M48.062) 1. L3-S1 degenerative disc disease and facet arthropathy with stenosis and radiculopathy 10/18/2024 Neuroforaminal stenosis of lumbar spine (ICD-10 - M48.061) 1. L3-S1 degenerative disc disease and facet arthropathy with stenosis and radiculopathy 10/18/2024 Other Plan established by Dr. Lee. At this time, Dr. Lee discussed MRI results with the patient. It was recommended patient of an L3-S1 decompression and fusion with an L5-S1 transforaminal lumbar interbody fusion fusion being necessary due to the fact that total facetectomies would need to be performed bilaterally trouble which would lead to instability requiring a fusion. Patient is understand this and would like to proceed with surgery. Will see the patient back in the office after medical clearance.. Smoking cessation was also discussed with the patient today. The patient is very much in agreement with the treatment and/or diagnostic plan set forth and all questions were answered to the patient's satisfaction. Thanks once again. If we can be of further service to your patients with disorders of the spine, cervical, thoracic, or lumbar, please do not hesitate to contact Dr. Lee. Best regards, 1. L3-S1 degenerative disc disease and facet arthropathy with stenosis and radiculopathy Plan Of Treatment Treatment Notes Assessment Notes Other Plan established by Dr. Lee. At this time, Dr. Lee discussed MRI results with the patient. It was recommended patient of an L3-S1 decompression and fusion with an L5-S1 transforaminal lumbar interbody fusion fusion being necessary due to the fact that total facetectomies would need to be performed bilaterally trouble which would lead to instability requiring a fusion. Patient is understand this and would like to proceed with surgery. Will see the patient back in the office after medical clearance.. Smoking cessation was also discussed with the patient today. The patient is very much in agreement with the treatment and/or diagnostic plan set forth and all questions were answered to the patient's satisfaction. Thanks once again. If we can be of further service to your patients with disorders of the spine, cervical, thoracic, or lumbar, please do not hesitate to contact Dr. Lee. Best regards, Next Appt Details Follow Up: SCHEDULE SURGERY, Reason: Provider Name:Jose L López Booker [facility], 02/04/2025 09:00:00 AM, [address] [place], [place], [id number], Progress Notes * KARLENE MANLEY KDOB: [birth year] (64 yo F)Acc No.[id number]:10/18/2024 Patient: KARLENE ALEJANDRE Provider: Jonathan Lee MD, PhD :1960 A ge:64 Y S ex:Female Date:10/18/2024 Address:[address] [place], [place] [address] Pcp:Celia Blank M.D. Subjective: * Chief Complaints: * [address] myelogram review of the Lumbar Spine. * HPI: H PI: Dictated by Cecil Malik PA-C The patient returns to the office 3 months since their last appointment. At that time, they were complaining of chronic lumbar pain with bilateral lower extremity pain, left greater than right. Patient reports the symptoms are mainly into the bilateral posterior thighs. We set them up with a CT myelogram of the lumbar spine. The patient returns to the office today to discuss results. Patient denies bowel or bladder incontinence or urinary retention. * ROS: G enitourinary: Denies I ncontinence. * Medical History: A sthma/Emphysema/Wheezing: Yes, COPD: : Yes, CPAP Machine:: No, Healthcare worker: No, Latex Allergy: No, Osteoporosis: Yes, Ovarian Cysts: Yes, Sciatica: Yes, Stomach ulcers: Yes, Have you been in close contact with someone who has had MRSA within the last year?: No, Have you ever had or presently have MRSA?: No, Have you been seen by a dentist in the last year?: Yes, Do you have any dental problems i.e. Broken, loose, or chipped teeth, absess, gum disease?: No. * Surgical History: B ack surgery T12/L1 , Tonsillectomy , Ovaries removed , Bunionectomy . * Family History: M other: Diabetes,Hypertension. S iblings: Heart Disease,Hypertension,Alcoholism. F ather: Cancer,Alcoholism. * Social History: S moking History S moking Status l ight tobacco smoker. C onsume alcohol D o you drink alcohol? N o. E xercise regularly D o you exercise? N o. D o you live?With whom do you live? s pouse only. W hat is your place of residence? W here do you live? P rivate home. 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 A KACIE-C (Standard) D id you have a drink containing alcohol in the past year? N o.? * Medications: T aking albuterol , Taking Trelegy Ellipta , Taking PriLOSEC , Taking buPROPion , Taking tiZANidine , Taking HYDROcodone , Medication List reviewed and reconciled with the patient * Allergies: L EVAQUIN, SULPHA, Percocet, BIAXIN. Objective: * Vitals: * Examination: G eneral examination: O n examination, the patient is well-developed, well-nourished, well-groomed, alert and oriented x3, normal mood. Limited lumbar ROM. Tender over the lumbar spine. 5/5 muscle strength bilateral lower extremities. Sensory intact lower extremities. C T Imaging Studies: C T myelogram of the lumbar spine done on 07/30/2024 shows L3-S1 degenerative disc disease and facet arthropathy with moderate to severe bilateral foraminal stenosis. Assessment: * Assessment: 1. D egeneration of intervertebral disc of lumbar region with discogenic back pain - M51.360 (Primary) 2 . L umbar stenosis with neurogenic claudication - M48.062 ?3. N euroforaminal stenosis of lumbar spine - M48.061 1. L3-S1 degenerative disc d isease and facet arthropathy with stenosis and radiculopathy. Plan: * Treatment: * Follow Up: S [facility] Forms: * Images: * Electronic signature of Jose Vance MD, PHD on 11/12/2024 at 03:30 AM EDT Sign off status: Pending * Provider: Jonathan Lee MD, PhD Date: 0 10/18/2024 Generated for Darya santiago/Alda/Estelitaitting on: 0 11/12/2024 03:30 AM EDT History and Physical Notes * HPI (History of Present Illness) Category Sub-Category Detail Notes Category Not es HPI Dictated by Cecil Malik PA-C The patient returns to the office 3 months since their last appointment. At that time, they were complaining of chronic lumbar pain with bilateral lower extremity pain, left greater than right. Patient reports the symptoms are mainly into the bilateral posterior thighs. We set them up with a CT myelogram of the lumbar spine. The patient returns to the office today to discuss results. Patient denies bowel or bladder incontinence or urinary retention. Examination Category Sub-Category Detail Notes Category Not es General examination On exami nation, the patient is well-developed, well-nourished, well-groomed, alert and oriented x3, normal mood. Limited lumbar ROM. Tender over the lumbar spine. 5/5 muscle strength bilateral lower extremities. Sensory intact lower extremities. CT Imaging Studies CT myelog nancy of the lumbar spine done on 07/30/2024 shows L3-S1 degenerative disc disease and facet arthropathy with moderate to severe bilateral foraminal stenosis.
--- OUTSIDE RECORDS SUMMARY | 2024-10-29 03:30 | XMS_ITS ---
Author Organization [facility] in [place] Address [address] [place] [address] Care Team Providers Care Wind Turbine Engineer Name Role Phone Celia Blank Primary Care Provider Scott Cramer [phone] REASON FOR VISIT F/U-6 MO. ASTHMA ([facility]) Encounters Encounter Location Date Provider Diagnosis Pulmonary Medicine [address] [address] 10/29/2024 Scott Dennis Plan Of Treatment No Information Progress Notes * SINDHU Cristnie KDOB: (64 yo F)Acc No.[id number]:10/29/2024 UNLOCKED PROGRESS NOTE Follow Up Patient: Cristine ALEJANDRE Provider: Aliya Dennis DO :1960 A ge:64 Y S ex:Female Date:10/29/2024 Address:[address] [place], [place] [address] Pcp:Celia Blank Subjective: * Chief Complaints: * 1 . F/U-6 MO. ASTHMA ([facility]). * Medical History: Objective: * Vitals: Assessment: Plan: * Treatment: * * Electronic signature of Shilpa Dennis DO on 11/12/2024 at 03:30 AM EDT Sign off status: Pending Visit Status: R /S (Rescheduled) * Provider: Aliya Dennis DO Date: 0 10/29/2024 Generated for Printi ng/Faxing/eTransmitting on: 0 11/12/2024 03:30 AM EDT
[2024-11-12] VITALS (35 sets, daily range): BP systolic 116–182; BP diastolic 71–124; PULSE 63–72; TEMP 36.6–36.8; O2SAT 94–100; BMI 26.3
--- OUTSIDE RECORDS SUMMARY | 2024-11-12 03:30 | XMS_ITS | Patient Health Record ---
Author Organization [facility] Address [address] [place] [address] Care Team Providers Care Crime Lab Technician Name Role Phone Celia Blank M.D. Primary Care Provider Unavail able Jose L Vance Unavailable [phone] xxSravani Traylor Unavailable Allergies Allergen (clinical drug ingredient) Drug/Non Drug Allergy documented on EMR Reaction Allergy Type Onset Date Status BIAXIN (uncoded) Unknown Allergy Act onesimo LEVAQUIN (uncoded) Unknown Allergy A ctive SULPHA (uncoded) Unknown Allergy Act onesimo Percocet Unknown Drug Allergy Active Results Component Value Reference Range Notes Platelet Count Reviewed date:08/20/2024 10:10:32 AM Interpretation: Performing Lab: Notes/Report: [address] [address] Platelet 313 150-450 x10*3/mcL PT Reviewed date:08/20/2024 10:10:32 AM Interpretation: Performing Lab: Notes/Report: [address] [address] PT 10.4 10.2-12.9 seconds INR 0.9 <=3.5 ratio INR has no normal range. INR Therapeutic range is: 2.0-3.0 (AF, CVA, TIAs, DVT prophylaxis, acute DVT) 2.5-3.5 ([facility] heart valves, recurrent thrombosis/emboli) PTT Reviewed date:08/20/2024 10:10:32 AM Interpretation: Performing Lab: Notes/Report: [address] [address] PTT 30.8 25.1-36.[address] Spine Lumbar Myelogram w/ Contrast Reviewed date:09/19/2024 11:52:34 AM Interpretation: Performing Lab: Notes/Report: Patient Name: Karlene Manley CLINICAL HISTORY: Pain and radiculopathy. XR Myelography Lumbosacral S micky Reviewed date:08/20/2024 10:10:32 AM Interpretation: Performing Lab: Notes/Report: Patient Name: Karlene Manley CLINICAL HISTORY: Radiculopathy. Reason For Referral Reason NO AUTH REQ......... ......................NOT SCHEDULED....................................[facility] ct lumbar myelogram to be done at [facility] Diagnosis 1 Retrolisthesis (M43. 10) Referral Organization [facility] Referring Provider First Name Jose L Referring Provider Last Name Pinky Referring Provider [facility] Orthopedic Surgery Referred Organization [facility] Central Scheduling Procedure 1 CT lumbar spine; W/ contrast material (66755) General Notes Luiza Camilo 2024 10:01:53 AM >, Amira Bradford 07/12/2024 10:13:12 AM > MYELOGRAM OF WHAT PART?, Luiza Camilo 07/12/2024 11:00:16 AM >Sanchez BOCANEGRA Kayla 07/12/2024 11:03:14 AM > THANK YOU, MEDICARE PARTS A & B ACTIVE AND EFFECTIVE 01/09/24 PER [facility]AILITY WITH [facility] Locally SECONDARY. NO AUTHORIZATION REQUIRED. FAXED TO [email or web address] Dawn 07/12/2024 01:28:10 PM >[facility] DOES NOT DO CT MYELOGARM, SO PATIENT WOULD LIKE TO GO TO [facility]. ORDER FAXED, Rozina Cruz 07/12/2024 02:45:10 PM [...] Problem Status W/U Status Risk Notes Problem [id number] Spondylolisthesi s, lumbar region (M43.16) Active confirmed Problem 4296120 Radiculopathy, lumbosacral region (M54.17) Active confirmed Problem 09731039 Lumbar stenosis with neurogenic claudication (M48.062) Active confirmed Problem 161011399 Neuroforaminal stenosis of lumbar spine (M48.061) Active confirmed Vital Signs Height 5'7 in 07/12/2024 Weight 176 lbs 07/12/2024 BMI 27.56 07/12/2024 Encounters Encounter Location Date Provider Diagnosis [facility] Office [address] [place] [address] 10/18/2024 Selvon Pinky Degeneration of intervertebral disc of lumbar region with discogenic back pain M51.360 ; Lumbar stenosis with neurogenic claudication M48.062 and Neuroforaminal stenosis of lumbar spine M48.061 [facility] Office [address] [place] [address] [place] [address] 07/12/2024 [facility] Spondylolisthesis, lumbar region M43.16 and Radiculopathy, lumbosacral [...] facet arthropathy with stenosis and radiculopathy 10/18/2024 Degeneration of intervertebral disc of lumbar [...] and facet arthropathy with stenosis and radiculopathy 07/12/2024 Other For the patient's symptoms of [...] is complete to review and offer further recommendations. The patient is very much in agreement [...] Provider Name:Jose L Severino, 02/04/2025 09:00:00 AM, [address], [place], [place], [id number], Insurance Providers Payer Name Payer Address Payer Phone Subscriber Number Group Number Insured Name Patient Relationship to Insured Coverage Start Date Coverage End [place] [address] [place] [address] [id number] MANLEYKARLENE KOEHLER Self - patient is the insured [employer] ([employer]) [address] [address] [place] [address] [id number] KARLENE MANLEY Self - patient is the insured Medical [...] T12/L1 Hospitalization History Reason Date(Month/Year) Ovaries Removed Kidney infection Back surgery
--- OUTSIDE RECORDS SUMMARY | 2024-11-12 03:30 | XMS_ITS | Clinical Summary ---
Author Organization [facility] Address [address], [address] [place] [address] Care Team Providers Care Slitting Machine Operator Helper Name Role Phone Celia Blank MD Primary Care Provider [phone] Allergies Active Allergy Reactions Criticality Noted Date Comments Levofloxacin Other (See Comments) Low 03/11/2010 Quinolones Rash Low 01/18/2011 Sulfa Antibiotics Other (See Comments) 03/11/20 10 Medications HYDROcodone-acet aminophen (NORCO) 5-325 MG per tablet Take 1 tablet by mouth . Active tiZANidine (ZANAFLEX) 4 MG tablet Take 4 mg by mouth 03/09/2016 Active diclofenac (CATAFLAM) 50 MG tablet Take 50 mg by mouth Active omeprazole (PRILOSEC) 20 MG delayed release capsule Take by mouth 03/11/2010 Active amitriptyline (ELAVIL) 25 MG tablet Take 25 mg by mouth 01/18/2011 Active fluticasone-salm eterol (ADVAIR DISKUS) 250-50 MCG/DOSE AEPB Inhale 1 puff into the lungs Active Social History Tobacco Use Types Packs/Day Years Used Date Smoking Tobacco: Every Day Cigarettes Alcohol Use Standard Drinks/Week Comments No 0 (1 standard drink = 0.6 oz pur e alcohol) Comments No Sex and Gender Information Value Date Recorded Sex Assigned at Not on file Legal Sex Female 2:49 PM EST Gender Identity Not on file Sexual Orientation Not on file Last Filed Vital Signs Vital Sign Reading Time Taken Comments Blood Pressure 153/99 06/29/2016 4:51 PM EDT Pulse 84 06/29/2016 4:51 PM EDT Temperature 37.3 C (99.1 F) 06/29/2016 4:51 PM EDT Respiratory Rate 18 06/29/2016 4:51 PM EDT Oxygen Saturation 99% 06/29/2016 4:51 PM EDT Inhaled Oxygen Concentration - - Weight - - Height - - Body Mass Index - - Plan of Treatment Not on file Insurance [employer] Care Teams Slitting Machine Operator Helper Relationship Specialty Start Date End Date Celia Blank MD PCP - General Family Medicine 06/29/16
--- OUTSIDE RECORDS SUMMARY | 2024-11-12 03:30 | XMS_ITS | Patient Health Record ---
Author Organization [facility] [place] Address [address] [place] [address] Care Team Providers Care Limehouse Worker Name Role Phone Celia Blank Primary Care Provider Scott Cramer [phone] Allergies Allergen (clinical drug ingredient) Drug/Non Drug [...] Risk Notes Problem Uncomplicated moderate persistent asthma (191994328) Moderate persistent asthma, uncomplicated (J45.40) Active confirmed Problem Long-term current use of inhaled steroid (713491919) snf (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 of 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 (Z79.51) Active confirmed Problem 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) Cigarette nicotine dependence with nicotine-induced disorder (F17.219) Active confirmed Problem Multiple pulmonary nodules (R91.8) [...] Encounter Location Date Provider Diagnosis Pulmonary Medicine [address] [address] 10/17/2024 Scott Dennis Moderate persistent asthma, uncomplicated J45.40 ; Cigarette nicotine dependence with nicotine-induced disorder F17.219 ; Multiple pulmonary nodules R91.8 ; exterminator helper termite (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 of 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 Z79.51 and Encounter for screening for malignant neoplasm of respiratory organs Z12.2 [facility] [address] [place] [address] 07/15/2024 Scott Dennis Pul[facility] [address] [place] [address] 10/16/2024 Scott Dennis Assessments Encounter Date Diagnosis (ICD Code) Assessment [...] LDCT screening which is due 03/2025. 10/17/2024 exterminator helper termite (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 of 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 (ICD-10 - [...] End Date [place] [address] [place] [address] [id number] ManleyCristine ennis Self - patient is the insured [employer]STATE MEDICARE SUPPLEMENT [address] [address] [place] [address] [phone] [id number] ManleyAmanda ennisne Self - patient is the insured Medical (General) History Medical History History ICD Code Moderate persistent asthma, uncomplicate d J45.40 Multiple pulmonary nodules R91.8 OA (osteoarthritis) M19.90 Cigarette nicotine dependence with nicot ine-induced disorder F17.219 Surgical History Surgery Date(Month/Year) oopherectomy tonsillectomy bunionectomy cataract-lens implants thoracic spine surgery
--- OUTSIDE RECORDS SUMMARY | 2024-11-12 03:31 | XMS_ITS | Clinical Summary ---
Author Organization [facility] Address [address] [place] [address] Care Team Providers Care Junior Project Manager Name Role Phone Celia Blank MD Primary Care Provider [phone] Allergies Active Allergy Reactions Criticality Noted Date [...] 2) 2009 Diabetes Screening 03/11/2013 03/11/2010, 03/11/2010 Bone Density Screening 01/22/2024 Advance Directive Discussion [...] AB 1&2 SCREEN (03/11/2010 3:48 PM EST) Pathologist [facility] HIV 1 & 2 Ab (EIA) Non Reactive NR [facility] Comment: If results are indeterminate or otherwise inconsistent with an individual's clinical presentation or risk profile for HIV infection a repeat specimen is requested. A repeat specimen is also recommended for any individual identified positive for the first time. Blood specimen (specimen) BLOOD SPECIMEN / Unknown 03/11/2010 3:48 PM EST 03/11/2010 5:06 PM EST us Les Drew MD LABORATORY Final Result Performing Organization Address City/State/[facility] Co de Phone Number [facility] [address] [place] [address] * COMP METABOLIC PANEL (03/11/2010 3:48 PM EST) Pathologist [facility] Protein, Total 6.8 6.0 - 8.4 g/dL [facility] Albumin 4.7 3.5 - 5.0 g/dL [facility] Calcium 9.8 8.5 - 10.5 mg/dL [facility] Bilirubin, Total 0.3 0.0 - 1.5 mg/dL [facility] Alkaline Phosphatase 75 40 - 150 U/L [facility] AST 15 7 - 40 U/L [facility] Glucose 78 65 - 100 mg/dL [facility] BUN 17 8 - 25 mg/dL [facility] Creatinine 0.94 0.70 - 1.40 mg/dL [facility] Sodium 142 132 - 148 mmol/L [facility] Potassium 4.8 3.5 - 5.0 mmol/L [facility] Chloride 105 98 - 110 mmol/L [facility] CO2 27 23 - 32 mmol/L [facility] Anion Gap 10 0 - 15 mmol/L [facility] ALT 15 0 - 45 U/L [facility] eGFR- >60 [facility] eGFR-All Other Races >60 . [facility] Comment: eGFR (Estimated GFR) Units of [...] us Les Drew MD LABORATORY Final Result [facility] [address] [place] [address] from Last 3 Months or Most Recently Relevant to Health Maintenance Care Teams Junior Project Manager Relationship Specialty Start Date End Date Celia Blakn MD [address] [place] [address] PCP - General Family Medicine 03/09/10
--- OUTSIDE RECORDS SUMMARY | 2024-11-12 03:31 | XMS_ITS | CCD ---
Author Organization [facility] CliniSyal Care Team Providers Care Tectonophysicist Name Role Phone CORNELIUS GARRISON Primary Care Physician MISC, DR MIDDLETON Primary Care Unavailable REQUEST, [...] MD Cornelius Garrison Primary Care Provider [phone] DO Alexandro Galvez Attending Provider [phone] Cornelius Garrison MD Primary Care Provider Ofelia Arceo MD Unavailable Cornelius Garrison MD Primary Care Provider Alexandro Galvez DO Attending Provider [phone] Cornelius Garrison MD Attending Provider [phone] Cornelius Garrison MD Primary Care Provider Geoff Walker DO Unavailable [phone] GEOFF WALKER Attending Unavailable CORNELIUS GARRISON Referring Unavailable KANE PEREZ Attending Unavailable OFELIA ARCEO Referring Unavailable Cornelius Garrison MD Attending Provider [phone] Denilson TAVERAS, Duong Wagoner Attending Unavailable Cornelius Garrison MD Primary Care Gelava ilkrystal Oreilly MD, Duong Wagoner Attending Unavailable Cornelius Garrison MD [facility] Unava ilkrystal Oreilly MD, Duong Wagoner Attending Unavailable Bladimir TAVERAS, [facility] Unava ilkrystal Garrison MD, [facility] Unava ilable Denilson TAVERAS, Duong Wagoner Attending Unavailable Bladimir TAVERAS, [facility] Unava ilkrystal Oreilly MD, Duong Wagoner Attending Unavailable Bladimir TAVERAS, [facility] Unava stephany Garrison MD, Cornelius [place] Referring Unava ilable Adis PA-C, Ofelia Grace Attending Unavailab Tuan TAVERAS, [facility] Unava ilable Adis PA-C, Ofelia Grace Attending Unavailab Tuan TAVERAS, [facility] Unava ilable Adis PA-C, Ofelia Grace Attending Unavailab Tuan TAVERAS, [facility] Unava ilable Alexey Morgan MD Admitting Unavailable [place] PA-C, Sravani Benson Attending U elizabeth Garrison MD, [facility] Unava ilable Adis PA-C, Ofelia Grace Admitting Unavailab le Adis PA-C, Ofelia Grace Attending Unavailab Tuan TAVERAS, [facility] Unava ilable Adis PA-C, Ofelia Grace Attending Unavailab Traci TAVERAS, Duong Wagoner Attending Unavailable Bladimir TAVERAS, [facility] Unava ilable CORNELIUS GARRISON Primary Care Unavailable TYRONE HAMM Attending Unavailable Cornelius Garrison MD Primary Care Provider Cornelius Garrison MD Attending Provider Vera Hdez CMA Attending Provider UnavailCarlin Ayala MD Attending Provider Cornelius Garrison Admitting Unavailable Cornelius Garrison Attending Unavailable Cornelius Garrison Primary Care Unavailable Alexandro Galvez Admitting Unavailable Alexandro Galvez Attending Unavailable Cornelius Garrison Admitting Unavailable Cornelius Garrison Primary Care Unavailable Cornelius Garrison Attending Unavailable Cornelius Garrison Attending Unavailable Cornelius Garrison Admitting Unavailable CORNELIUS GARRISON Unavailable Khris HARPER Attending Unavailable Allergies Allergy Classification Reported Allergen(s) Allergy Type Date of Onset Reaction(s) Facility (3 sources) Acetaminophen / oxyCODONE; Translations: [acetaminophen-oxy codone] Drug Allergy Nausea (finding) [facility] (6 sources) Alendronate; Translations: [alendronate] Drug Allergy 03-29-20 Muscle pain (finding) [facility] (15 sources) Clarithromycin; Translations: [clarithromycin] Drug Allergy 07-31-19 Unknown (qualifier value) [facility] (17 sources) levoFLOXacin; Translations: [levofloxacin] Drug Allergy 07-31-19 Eruption of skin (disorder) [facility] [place] (4 sources) Sulfonamides (Antibiotic); Translations: [sulfa drugs] Drug allergy Unknown (qualifier value) [facility] (1 source) Acetaminophen / oxyCODONE Drug Allergy 03-25-20 16 [facility] Rep[facility] (1 source) Alendronate Drug Allergy 03-18-20 16 [facility] (1 source) Clarithromycin Drug Allergy 03-25-20 16 [facility] (1 source) levoFLOXacin Drug Allergy 03-25-20 16 [facility] (1 source) Quinolones (Antibiotic) Drug allergy (disorder) 03-25-20 16 [facility] (1 source) Sulfonamides (Antibiotic) Drug allergy (disorder) 05-01-19 14 [facility] (1 source) Acetaminophen Drug Allergy 07-31-19 [facility] (12 sources) Alendronate Drug Allergy 07-31-19 24 [facility] (12 sources) oxyCODONE Drug Allergy 07-31-19 [facility] (13 sources) Sulfonamides (Antibiotic); Translations: [SULFA (SULFONAMIDE ANTIBIOTICS)] Allergy to substance 07-31-19 Comment:as a young child, pt. cannot recall [facility] (12 sources) Biaxin XL *MACROLIDES* Allergy to substance 07-28-19 [facility] (4 sources) Acetaminophen / oxyCODONE; Translations: [OXYCODONE-ACETAMI NOPHEN] Drug Allergy 06-05-19 Nausea Only [facility] (3 sources) Clarithromycin Allergy to substance 03-29-20 [facility] (3 sources) Lactobacillus acidophilus Drug Allergy 06-05-19 [facility] (3 sources) Quinolones (Antibiotic) Drug Intolerance 03-11-20 Rash [facility] (3 sources) Sulfonamides (Antibiotic) Drug Intolerance 03-11-20 [facility] (1 source) Ciprofloxacin; Translations: [Cipro] Drug Allergy [facility] Rep[facility] (1 source) symbalta; Translations: [symbalta] Propensity to adverse reactions to drug (disorder) [facility] (1 source) fluoroquinolone antibiotics Allergy to substance 10-03-19 [facility] Medications Current Medications Medication Drug Class(es) Dates Sig (Normalized) Sig (Original) acetaminophen 325 mg / HYDROcodone bitartrate 5 mg oral tablet (20 sources) Opioid Agonist Start: 10-18-2024 take 1 tablet by mouth three times daily Start: 04-21-2024 End: 10-16-2024 take 1 tablet by mouth three times daily Hydrocodone-Acetaminophen 5-325 mg table t Discontinued 1 TAB PO Three times daily September 20, 2024 October 16, 2024 9:40am Start: 04-20-2024 End: 04-19-2024 take 1 tablet [...] 1 tablet by mouth at bedtime HYDROcodone-acetaminophen ([place]) 5-325 MG tablet Take 1 tablet by mouth in the morning and 1 tablet in the evening and 1 tablet before bedtime. Active albuterol 0.83 mg/ml inhalation solution (20 sources) beta2-Adrenergic Agonist Start: 06-26-2024 End: 09-03-2024 take 3 mL by inhalation every month as needed for wheezing Start: 04-15-2024 End: 06-26-2024 take 2.5 mg [...] Active amitriptyline hydrochloride 50 mg oral tablet (19 sources) Tricyclic Antidepressant Start: 03-29-2024 take 1 tablet b y mouth once daily at bedtime Start: 07-28-2023 End: 02-08-2024 take 1 tablet [...] Refills(s) 0 Start Date: 12/17/21 Status: Ordered azithromycin 500 mg oral tablet (1 source) Macrolide Antimicrobial Start: 10-04-2024 take 1 tablet by mouth once daily 24 hr buPROPion hydrochloride 300 mg extended release oral tablet (13 sources) Aminoketone Start: 04-15-2024 take 1 tablet by mouth once daily Start: 03-11-2024 End: 04-15-2024 take 1 tablet [...] Start Date: 12/17/21 Status: Ordered Fluticasone-Umecl idin-Vilanter (15 sources) Start: 04-15-2024 Start: 04-15-2024 Fluticasone-Um eclidin-Vilanter (Trelegy Ellipta) 200-62.5-25 mcg blister with device Active 1 INH INHALATION Daily April 15, 2024 4:40pm Rinse after use Start: 04-15-2024 Fluticasone-Um eclidin-Vilanter (Trelegy Ellipta) 200-62.5-25 mcg blister with device Active 1 INH INHALATION Daily April 15, 2024 3:40pm Rinse after use Start: 03-29-2024 End: 04-15-2024 Rqeurbvsyev-Iqqwjabhm-Wrvtvn er (Trelegy Ellipta) 200-62.5-25 mcg blister with device Discontinued 1 INH INHALATION Daily March 29, 2024 10:38am April 15, 2024 4:41pm Rinse after use Start: 03-29-2024 End: 04-15-2024 Hqtjemvxwcy-Pojyzksmg-Cqchjf er (Trelegy Ellipta) 200-62.5-25 mcg blister with device Discontinued 1 INH INHALATION Daily 60 March 29, 2024 9:38am April 15, 2024 3:41pm Rinse after use Start: 03-11-2024 End: 03-29-2024 Vfczoxbbpvq-Ipiqieqbp-Uzisaj er (Trelegy Ellipta) 200-62.5-25 mcg blister with device Discontinued 1 INH INHALATION Daily 180 March 11, 2024 1:00am March 29, 2024 10:38am Rinse after use Start: 03-11-2024 End: 03-29-2024 Spdegeuybzs-Kvrtudfzg-Ytgmwe er (Trelegy Ellipta) 200-62.5-25 mcg blister with device Discontinued 1 INH INHALATION Daily 180 March 11, 2024 12:00am March 29, 2024 9:38am Rinse after use omeprazole 20 mg delayed release oral capsule (9 sources) Proton Pump Inhibitor Start: 03-11-2024 take 1 capsule by mouth once daily Start: 12-22-2021 take 20 mg by mouth once daily Prilosec OTC 20 mg, Oral, Daily, Refills(s) 0 Start Date: 12/22/21 Status: Ordered ondansetron 4 mg disintegrating oral tablet (1 source) Serotonin-3 Receptor Antagonist Start: 09-27-2024 take 1 tablet by mouth every eight hours as needed for nausea and vomiting pantoprazole 40 mg delayed release oral tablet [...] Sig (Original) cefdinir 300 mg oral capsule (9 sources) Cephalosporin Antibacterial Start: 01-09-2024 End: 02-08-2024 take 1 capsule by mouth twice daily Cefdinir 300 mg capsule Discontinued 300 MG PO Twice daily January 09, 2024 12:00am February 08, 2024 1:53pm doxycycline hyclate 100 mg oral tablet (11 sources) Tetracycline-class Drug Start: 10-13-2023 End: 11-01-2023 [...] 13, 2023 3:47pm November 01, 2023 9:18am 120 actuat fluticasone propionate 0.044 mg/actuat metered dose inhaler (15 sources) Corticosteroid Start: 01-24-2024 End: 02-08-2024 take [...] Propionate Active 1 PUFF INHALATION Twice daily 01.13December 05, 2023 2:47pm administer with spacer Start: 11-01-2023 End: 02-08-2024 take 1 puff(s) by inhalation twice daily Fluticasone Propionate 44 mcg/actuation HFA aerosol inhaler Discontinued 1 PUFF INHALATION Twice daily 10.6 January 24, 2024 8:18am February 08, 2024 2:20pm administer with spacer Start: 11-01-2023 End: 12-05-2023 take 1 puff(s) by inhalation twice daily Fluticasone Propionate Discontinued 1 PUFF INHALATION Twice daily November 01, 2023 12:00am December 05, 2023 2:48pm administer with spacer Start: 11-01-2023 take 1 puff(s) by in halation twice daily Fluticasone Propionate Active 1 PUFF INHALATION Twice daily November 01, 2023 12:00am administer with spacer Fluticasone Propion-Salmeterol (17 sources) Corticosteroid, beta2-Adrenergic Agonist Start: 07-28-2023 End: [...] with spacer methylPREDNISolone 4 mg oral tablet (10 sources) Corticosteroid Start: 11-01-2023 End: 12-05-2023 Methylprednisolone [...] for 6 days Pneumoc 20-Agnes Conj-Dip Cr(Pf) (5 sources) Start: 03-11-2024 End: 03-29-2024 inject 1 [...] 2024 8:52am predniSONE 20 mg oral tablet (9 sources) Start: 01-09-2024 End: 02-08-2024 take 1 tablet by mouth twice daily Prednisone 20 mg tablet Discontinued 20 MG PO Twice daily 10 October 1st, 2024 12:00am February 08, 2024 1:53pm pregabalin 50 mg oral capsule (12 sources) Start: 07-31-2023 End: 07-31-2023 take 1 capsule by mouth twice daily Pregabalin (Lyrica) 50 mg capsule Discontinued 50 MG PO Twice daily 60 30 July 31, 2023 12:00am July 31, 2023 4:27pm Rsvpref3 Antigen-As01e (Pf) (1 source) Start: 03-11-2024 End: 03-29-2024 inject 1 mL by intramuscular injection once Rsvpref3 Antigen-As01e (Pf) (Arexvy (Pf)) 120 mcg/0.5 mL suspension for reconstitution Discontinued 0.5 ML IM Once March 11, 2024 1:00am March 29, 2024 10:04am Rsvpref3 Antigen-As01e (Pf) (Arexvy (Pf)) 120 mcg/0.5 [...] March 29, 2024 9:04am 60 actuat tiotropium 0.21767 mg/actuat inhalation spray (15 sources) Anticholinergic Start: 02-08-2024 End: 03-11-2024 take 1 puff(s) by inhalation once daily in the morning Tiotropium [place] (Spiriva Respimat) 1.25 mcg/actuation mist Discontinued 2 PUFF INHALATION Every morning March 08, 2024 10:50am March 11, 2024 4:50pm tiZANidine 4 mg oral tablet (20 sources) Central alpha-2 Adrenergic Agonist Start: 12-17-2021 End: 10-16-2024 take 1 tablet by mouth three times daily Tizanidine 4 mg tablet Discontinued 4 MG PO Three times daily 90 May 26, 2023 1:10pm August 28, 2023 3:10pm Problems Active Problems Problem Classification Problem Date Documented Da te Episodic/Chronic Abdominal hernia (1 source) Diaphragmatic hernia without obstruction or gangrene; Translations: [DIAPH HERNIA W/O OBST/GANGRENE] Onset: 2 Episodic Anal and rectal conditions (1 source) Rectal polyp; Translations: [RECTAL POLYP] Onset: 2 Episodic Asthma (20 sources) Asthma; Translations: [Uncomplicated moderate persistent asthma] [...] BL] Onset: 2 Chronic E Codes: Natural/environment (17 sources) Tick bite; Translations: [Bitten or stung [...] BLEEDING] Onset: 2 Chronic Headache; including migraine (17 sources) Headache; Translations: [Headache] Onset: 5 Resolved: 5 10-13-2023 Episodic Immunizations and screening for infectious disease (11 sources) Patient encounter status; Translations: [Encounter for immunization] Onset: 5 Resolved: 5 03-11-2024 Episodic Noninfectious gastroenteritis (2 sources) Gastroenteritis; Translations: [Noninfective gastroenteritis and colitis, unspecified] 10-08-2024 Episodic Osteoarthritis (18 sources) Primary gonarthrosis, bilateral; Translations: [Bilateral primary osteoarthritis of knee] Onset: 5 Resolved: 5 01-24-2024 Chronic Other aftercare (1 source) Other intermediate (current) drug therapy; Translations: [OTH FACILITIES MAINTENANCE ASSISTANT CURRENT DRUG THERAPY] Onset: 2 Episodic Other aftercare (7 sources) Long-term current use of inhaled steroid; Translations: [tower supervisor (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 of 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] Onset: 5 Resolved: 5 04-15-2024 Episodic Other aftercare (3 sources) tower supervisor (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 of 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; Translations: [Long-term (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 of steroids] 04-15-2024 Episodic Other bone disease and musculoskeletal deformities (1 source) Other specified disorders of bone density and structure, unspecified site; Translations: [OTH D/O BONE DEN STRUCT UNS SITE] Onset: 2 Episodic Other connective tissue disease (8 sources) Pain in right lower limb; Translations: [Pain in right leg] Onset: 5 Resolved: 5 03-29-2024 Episodic Other connective tissue disease (4 sources) Pain in right leg; Translations: [Pain in limb] 03-29-2024 Episodic Other fractures (8 sources) Fracture of rib; Translations: [Fracture of [...] skin] 04-01-2024 Episodic Other non-traumatic joint disorders (14 sources) Joint pain; Translations: [Pain in unspecified joint] Onset: 5 Resolved: 5 10-13-2023 Episodic Other non-traumatic joint disorders (3 sources) Pain in unspecified joint; Translations: [Pain in joint, site unspecified] 10-13-2023 Episodic Other screening for suspected conditions (not mental disorders or infectious disease) (15 sources) Screening for malignant neoplasm of colon done; Translations: [Encounter for screening for malignant neoplasm of colon] Onset: 2 Episodic Regional enteritis and ulcerative colitis (1 source) Ulcerative (chronic) pancolitis without complications; Translations: [Ulcerative (chronic) pancolitis without complications] Onset: 5 Chronic Residual codes; unclassified (1 source) Early satiety; Translations: [EARLY SATIETY] Onset: 2 Episodic Residual codes; unclassified (9 sources) Menopause present; Translations: [Asymptomatic menopausal state] Onset: 5 Resolved: 5 02-08-2024 Episodic Residual codes; unclassified (3 sources) Asymptomatic menopausal state; Translations: [Symptomatic menopausal or female climacteric states] 02-08-2024 Episodic Spondylosis; intervertebral disc disorders; other back problems (20 sources) Lumbar radiculopathy; Translations: [Radiculopathy, lumbar region] Onset: 5 Resolved: 5 07-31-2023 Episodic Substance-related disorders (16 sources) Nicotine dependence, cigarettes, uncomplicated; Translations: [Tobacco dependence caused by cigarettes] Onset: 2 Resolved: 5 03-11-2024 Chronic Thyroid disorders (14 sources) Thyroid nodule; Translations: [Nontoxic single thyroid [...] 06-05-2024 12-17-2021 Episodic Other non-traumatic joint disorders (19 sources) Pain in right knee; Translations: [Pain [...] Test Name Value Interpretation Reference Range Facility Laboratory - Chemistry and C hemistry - challengeOrdered By: Carlin Oleary on 11-03-2024 Bilirubin Ql (U) COLOR INTERFERENCE Abnormal NEGATIVE [facility] Ketones Ql (U) COLOR INTERFERENCE mg/dL Abnormal NEGATIVE [facility] Specific gravity (U) [Rel density] 1.015 1.005-1.025 [facility] Laboratory - Specimen inform ationOrdered By: Carlin Oleary on 11-03-2024 Appearance (U) CLOUDY Abnormal CLEAR [facility] Color (U) DK. RED YELLOW [facility] Laboratory - UrinalysisOrder ed By: Carlin Oleary on 11-03-2024 Leukocyte esterase Test strip Ql (U) COLOR INTERFERENCE Abnormal NEGATIVE [facility] Mucus Ql (Urine sed) NONE SEEN NONE SEEN [facility] Nitrite Ql (U) COLOR INTERFERENCE Abnormal NEGATIVE [place] Protein Ql (U) COLOR INTERFERENCE mg/dL Abnormal NEG/TRACE [facility] No Panel InformationOrdered By: Carlin Oleary on 11-03-2024 Urine Bacteria TRACE #/HPF Abnormal NONE SEEN [facility] Urine Culture Reflexed YES-[facility] Urine Glucose (UA) COLOR INTERFERENCE mg/dL Abnormal NEGATIVE [facility] Urine Occult Blood COLOR INTERFERENCE Abnormal NEGATIVE [facility] Urine Other Casts NONE SEEN #/LPF NONE SEEN [place] Urine Other Crystals None Seen #/HPF None Seen [facility] Urine pH COLOR INTERFERENCE Abnormal 5.0-9.0 [facility] Urine RBC >100 #/HPF Abnormal 0-2 [facility] Urine Squamous Epithelial Cells NONE SEEN #/LPF NONE/RARE [facility] Urine Urobilinogen COLOR INTERFERENCE EU/dL Abnormal 0.2-1.0 [facility] Urine WBC 20-50 #/HPF Abnormal NONE SEEN [facility] Urine Cultureon 11-03-2024 Bacteria identified Cx Nom (U) >100,000 colonies/ml mixed bacterial skin contaminants 2 Days PERFORMED BY: [facility] [address] [place] [address] PATHOLOGIST SUBGRADE ROLLER OPERATOR AKTHLEEN AGUAYO M.D. Normal [facility] Comment on above: Performed By: #### C UU #### [facility] [address] C DIFFICILE BY PCRon 025 027 NAP1 Negative Normal Presumptive Negative [facility] Comment on above: Result Comment: Batool cerrato methodology is nucleic acid amplification by real-time PCR for detection of C. difficile toxin gene sequences performed on [employer] Instrument System. Performed By: #### C DFPCR #### [facility] ([facility]) [address] [place] [address] VIR TOXIGENIC C DIFF Negative Normal Negative [facility] Comment on above: Performed By: #### C DFPCR #### [facility] ([facility]) [address] [place] [address] VIR CBC WITH AUTO DIFFERENTIALon 10-01-2024 BASOPHILS ABSOLUTE COUNT (10*3/UL) BY AUTOMATED COUNT 0.1 10*3/uL Normal 0.0-0.2 [facility] Comment on above: Performed By: #### C BCA #### [facility] ([address] [address] VIR BASOPHILS RELATIVE PERCENT BY AUTOMATED COUNT 0.7 % Normal [facility] Comment on above: Performed By: #### C BCA #### [facility] ([facility]) [address] [place] [address] VIR CELLAVISION DIFFERENTIAL TYPE AUTOMATED DIFFERENTIAL Normal [facility] Comment on above: Performed By: #### C BCA #### [facility] ([address] [address] VIR Eosinophils (Bld) [#/Vol] 0.1 10*3/uL Normal 0.0-0.4 [facility] Comment on above: Performed By: #### C BCA #### [facility] ([facility]) [address] [place] [address]. [place] [address] VIR EOSINOPHILS RELATIVE PERCENT BY AUTOMATED COUNT 1.2 % Normal [facility] Comment on above: Performed By: #### C BCA #### [facility] ([address] [address] VIR Erythrocyte distribution width (RBC) [Ratio] 13.2 % Normal 11.5-15 [facility] Comment on above: Performed By: #### C BCA #### [facility] ([address] [address] VIR Hematocrit (Bld) [Volume fraction] 41.7 % Normal 35-47 [facility] Comment on above: Performed By: #### C BCA #### [facility] ([address] [address] VIR Hemoglobin (Bld) [Mass/Vol] 14.1 g/dL Normal 11.7-15.5 [facility] Comment on above: Performed By: #### C BCA #### [facility] ([address] [address] VIR LYMPHOCYTES ABSOLUTE COUNT (10*3/UL) BY AUTOMATED COUNT 1.7 10*3/uL Normal 1.0-3.5 [facility] Comment on above: Performed By: #### C BCA #### [facility] ([address] [address] VIR LYMPHOCYTES RELATIVE PERCENT BY AUTOMATED COUNT 18.1 % Normal [facility] Comment on above: Performed By: #### C BCA #### [facility] ([address] [address] VIR MCH (RBC) [Entitic mass] 29.8 pg Normal 27-34 [facility] Comment on above: Performed By: #### C BCA #### [facility] ([address] [address] VIR MCHC (RBC) [Mass/Vol] 33.9 g/dL Normal 32-36 [facility] Comment on above: Performed By: #### C BCA #### [facility] ([address] [address] VIR MCV (RBC) [Entitic vol] 88 fL Normal 80-100 [facility] Comment on above: Performed By: #### C BCA #### [facility] ([address] [address] VIR MONOCYTES ABSOLUTE COUNT (10*3/UL) BY AUTOMATED COUNT 1.3 10*3/uL High 0.0-0.9 [facility] Comment on above: Performed By: #### C BCA #### [facility] ([address] [address] VIR MONOCYTES RELATIVE PERCENT BY AUTOMATED COUNT 14.3 % Normal [facility] Comment on above: Performed By: #### C BCA #### [facility] ([address] [address] VIR NEUTROPHILS ABSOLUTE COUNT BY AUTOMATED COUNT 6.1 10*3/uL Normal 1.5-6.6 [facility] Comment on above: Performed By: #### C BCA #### [facility] ([address] [address] VIR NEUTROPHILS RELATIVE PERCENT BY AUTOMATED COUNT 65.7 % Normal [facility] Comment on above: Performed By: #### C BCA #### [facility] ([address] [address] VIR Platelet mean volume (Bld) [Entitic vol] 7.7 fL Normal 7-12 [facility] Comment on above: Performed By: #### C BCA #### [facility] ([address] [address] VIR Platelets (Bld) [#/Vol] 376 10*3/uL Normal 150-450 [facility] Comment on above: Performed By: #### C BCA #### [facility] ([address] [place] [address] VIR RBC COUNT 4.74 X10E12/L Normal 3.8-5.2 [facility] Comment on above: Performed By: #### C BCA #### [facility] ([address] [place] [address] VIR WBC (Bld) [#/Vol] 9.3 10*3/uL Normal 4-11 [facility] Comment on above: Performed By: #### C BCA #### [facility] ([address] [place] [address] VIR COMPREHENSIVE METABOLIC PANE Dominick 10-01-2024 Albumin [Mass/Vol] 3.5 g/dL Normal 3.2-5.3 [facility] Comment on above: Performed By: #### C MP #### [facility] ([address] [place] [address] VIR ALP [Catalytic activity/Vol] 69 U/L Normal 39-130 [facility] Comment on above: Performed By: #### C MP #### [facility] ([address] [place] [address] VIR ALT [Catalytic activity/Vol] 20 U/L Normal <=31 [facility] Comment on above: Performed By: #### C MP #### [facility] ([address] [place] [address] VIR Anion gap [Moles/Vol] 10 mmol/L Normal 5-15 [facility] Comment on above: Performed By: #### C MP #### [facility] ([address] [place] [address] VIR AST [Catalytic activity/Vol] 14 U/L Normal <=41 [facility] Comment on above: Performed By: #### C MP #### [facility] ([address] [place] [address] VIR Bilirubin [Mass/Vol] 0.4 mg/dL Normal 0.3-1.2 [facility] Comment on above: Performed By: #### C MP #### [facility] ([facility]) [address] [place], [place] [address] [address] VIR Calcium [Mass/Vol] 8.9 mg/dL Normal 8.5-10.5 [facility] Comment on above: Performed By: #### C MP #### [facility] ([address] [place] [address] VIR Chloride [Moles/Vol] 102 mmol/L Normal 98-109 [facility] Comment on above: Performed By: #### C MP #### [facility] ([address] [place] [address] VIR CO2 [Moles/Vol] 25 mmol/L Normal 22-32 [facility] Comment on above: Performed By: #### C MP #### [facility] ([address] [place] [address] VIR Creatinine [Mass/Vol] 0.89 mg/dL Normal 0.40-1.00 [facility] Comment on above: Result Comment: METH OD TRACEABLE TO IDMS STANDARD Performed By: #### C MP #### [facility] ([address] [place] [address] VIR GFR/1.73 sq M.predicted among non-blacks MDRD (S/P/Bld) [Vol rate/Area] 72 mL/min/{1.73_m2} Normal >=60 [facility] Comment on above: Result Comment: eGFR not reported due to non-numeric value for Creatinine. Reported eGFR is based on the CKD-EPI 2020 equation that does not use a race coefficient. Performed By: #### C MP #### [facility] ([address] [place] [address] VIR Glucose [Mass/Vol] 111 mg/dL High 65-99 [facility] Comment on above: Performed By: #### C MP #### [facility] ([address] [place] [address] VIR Potassium [Moles/Vol] 3.4 mmol/L Low 3.5-5.0 [facility] Comment on above: Performed By: #### C MP #### [facility] ([address] [address] VIR Protein [Mass/Vol] 6.6 g/dL Normal 6.0-8.0 [facility] Comment on above: Performed By: #### C MP #### [facility] ([address] [address] VIR Sodium [Moles/Vol] 137 mmol/L Normal 134-146 [facility] Comment on above: Performed By: #### C MP #### [facility] ([address] [address] VIR Urea nitrogen [Mass/Vol] 20 mg/dL Normal 5-27 [facility] Comment on above: Performed By: #### C MP #### [facility] ([address] ABDOMEN AND PELVIS W CONT [...] Cordova MD on 10/01/2024 8:37 AM Normal [facility] GI PANEL STOOL PATHOGEN PANE Dominick 10-01-2024 ADENOVIRUS Not detected Normal Not Detected [facility] Comment on above: Performed By: #### G IP #### [facility] ([facility]) [address] [place] [address] VIR AGGREGATIVE E COLI Not detected Normal Not Detected [facility] Comment on above: Performed By: #### G IP #### [facility] ([facility]) [address] [place] [address] VIR ASTROVIRUS Not detected Normal Not Detected [facility] Comment on above: Performed By: #### G IP #### [facility] ([facility]) [address] [place] [address] VIR CAMPYLOBACTER Detected Abnormal Not Detected [facility] Comment on above: Result Comment: Dete cts the following: C. jejuni, C. coli, C. upsaliensis. Performed By: #### G IP #### [facility] ([facility]) [address] [place] [address] VIR CRYPTOSPORIDIUM Not detected Normal Not Detected [facility] Comment on above: Performed By: #### G IP #### [facility] ([facility]) [address] [place] [address] VIR CYCLOSPORA Not detected Normal Not Detected [facility] Comment on above: Performed By: #### G IP #### [facility] ([facility]) [address] [place] [address] VIR E HISTOLYTICA Not detected Normal Not Detected [facility] Comment on above: Performed By: #### G IP #### [facility] ([facility]) [address] [place] [address] VIR GIARDIA LAMBLIA Not detected Normal Not Detected [facility] Comment on above: Performed By: #### G IP #### [facility] ([facility]) [address] [place] [address] VIR NOROVIRUS Not detected Normal Not Detected [facility] Comment on above: Performed By: #### G IP #### [facility] ([facility]) [address] [place] [address] VIR PATHOGENIC E COLI Detected Abnormal Not Detected [facility] Comment on above: Result Comment: Ente ropathogenic Escherichia coli Performed By: #### G IP #### [facility] ([facility]) [address] [place] [address] VIR PLESIOMONAS Not detected Normal Not Detected [facility] Comment on above: Performed By: #### G IP #### [facility] ([facility]) [address] [place] [address] VIR ROTAVIRUS A Not detected Normal Not Detected [facility] Comment on above: Performed By: #### G IP #### [facility] ([facility]) [address] [place] [address] VIR SALMONELLA Not detected Normal Not Detected [facility] Comment on above: Performed By: #### G IP #### [place] [facility] ([facility]) [address] [place] [address] VIR SAPOVIRUS Not detected Normal Not Detected [facility] Comment on above: Performed By: #### G IP #### [facility] ([facility]) [address] [place] [address] VIR SHIGA TOXIN E COLI Not detected Normal Not Detected [facility] Comment on above: Performed By: #### G IP #### [facility] ([facility]) [address] [place] [address] VIR SHIGELLA-E COLI Not detected Normal Not Detected [facility] Comment on above: Performed By: #### G IP #### [facility] ([facility]) [address] [place] [address] VIR TOXIGENIC E COLI Not detected Normal Not Detected [facility] Comment on above: Performed By: #### G IP #### [facility] ([facility]) [address] [place] [address] VIR VIBRIO Not detected Normal Not Detected [facility] Comment on above: Performed By: #### G IP #### [facility] ([facility]) [address] [place] [address] VIR VIBRIO CHOLERAE Not detected Normal Not Detected [facility] Comment on above: Performed By: #### G IP #### [facility] ([facility]) [address] [place] [address] VIR Y. ENTEROCOLITICA Not detected Normal Not Detected [facility] Comment on above: Performed By: #### G IP #### [facility] ([facility]) [address] [place] [address] VIR LIPASEon 10-01-2024 Lipase [Catalytic activity/Vol] 32 U/L Normal 17-40 [facility] Comment on above: Performed By: #### L IPA #### [facility] ([address] [place] [address] VIR MAGNESIUMon 10-01-2024 Magnesium [Mass/Vol] 1.9 mg/dL Normal 1.8-2.6 [facility] Comment on above: Performed By: #### M G #### [facility] ([address] [place] [address] VIR POCT NURSING URINE MACROSCOP IC UAon 10-01-2024 BILIRUBIN SHANT Negative Normal Negative [facility] Comment on above: Performed By: #### N UM #### [facility] ([address] [place] [address] VIR BLOOD/HGB SHANT Moderate Abnormal Negative [facility] Comment on above: Performed By: #### N UM #### [facility] ([address] [place] [address] VIR GLUCOSE SHANT Negative Normal Negative [facility] Comment on above: Performed By: #### N UM #### [facility] ([address] [place] [address] VIR KETONES SHANT Negative Normal Negative [facility] Comment on above: Performed By: #### N UM #### [facility] ([address] [place] [address] VIR LEUKOCYTE ESTERASE SHANT Negative Normal Negative [facility] Comment on above: Performed By: #### N UM #### [facility] ([address] [place] [address] VIR NITRITE SHANT Negative Normal Negative [facility] Comment on above: Performed By: #### N UM #### [facility] ([address] [place] [address] VIR PH SHANT 6.0 Normal 5.0, 6.0, 6.5, 7.0, 7.5, 8.0, 8.5, 5.5 [facility] Comment on above: Performed By: #### N UM #### [facility] ([facility]) [address] [place] [address] [place] [address] VIR PROTEIN SHANT Trace Abnormal Negative [facility] Comment on above: Performed By: #### N UM #### [facility] ([facility]) [address] [place] [address] [place] [address] VIR SPECIFIC GRAVITY SHANT <=1.005 Abnormal 1.010, 1.015, 1.020, 1.025 [facility] Comment on above: Performed By: #### N UM #### [facility] ([address] [place] [address] VIR UROBILINOGEN SHANT 0.2 E.U./dL Normal [facility] Comment on above: Performed By: #### N UM #### [facility] ([address] [place] [address] Spine Lumbar Myelogram w/ Contraston [...] narrowing as detailed above. Radiation Dose Estimate: CTDI(mGy):0.000607 / / / kVp:120.363161 / mAs:0.684589 / / / DLP(mGy-cm):3.398354Ff dy Part: CTDI(mGy):21.997145 / / / kVp:120.977914 / mAs:230.670144 / / / DLP(mGy-cm):616.000952 Body Part: Final Dictated by: Alexey Morgan MD Dictated DT/TM: 07.30.2024 12:27 pm Signed by: Alexey Morgan MD Signed (Electronic Signature): 07.30.2024 12:38 pm (If Report Is Signed, Electronically Signed in Other Vendor System) Normal [facility] PTon 07-30-2024 INR Coag (PPP) [Relative time] 0.9 {INR} Normal <=3.5 [facility] Comment on above: Result Comment: INR has no normal range. INR Therapeutic range is: 2.0-3.0 (AF, CVA, TIAs, DVT prophylaxis, acute DVT) 2.5-3.5 ([facility] heart valves, recurrent thrombosis/emboli) Performed By: #### P TINR #### [address] [address] PT Coag (PPP) [Time] 10.4 s Normal 10.2-12.9 [facility] Comment on above: Performed By: #### P TINR #### [address] [address] PTTon 07-30-2024 aPTT Coag (Bld) [Time] 30.8 s Normal 25.1-36.5 [facility] Comment on above: Performed By: #### P TT #### [address] [address] Platelet Counton 07-30-2024 Platelet 313 x10*3/mcL Normal 150-450 [facility] Comment on above: Performed By: #### P TINR #### [address] [address] XR Myelography Lumbosacral S pine 07-30-2024 XR Myelography Lumbosacral Spine CLINICAL HISTORY: [...] Electronically Signed in Other Vendor System) [facility] Neurosurgery Office/Clinic N oteon 06-06-2024 Neurosurgery Office/Clinic Note Chief Complaint back follow up History of Present Illness The patient is a pleasant 64-year-old right-handed female with history of chronic nicotine use, asthma and recently diagnosed COPD for which she is planned to see a hide spreader in the near future. She also has history of decompression/discecto my T12-L1 by Dr. Ugarte in 2013 with [...] therapy without benefit. She is established with [facility] undergoing left L4-5 CARLOS and [...] though does not resolve. Oral narcotics including Perry which makes pain tolerable though does not resolve. Topical agents including lidocaine patches and Bengay with limited benefit. Pain management injection modalities years ago with temporary benefit lasting only a few days. Physical therapy years ago without significant benefit. Chiropractic manipulation x 1 visit without benefit therefore patient never returned. Activity modification [1] Pain management injection modalities through [facility]. Initial injection targeted left L4-5 which [...] included)... Normal [facility] Provider Letteron 06-06-2024 Provider Letter Cornelius Garrison MD [address] [place] [address], [facility] [place] [address] Re: Cristine Manley Date of Visit: 06/06/2024 [...] Note Normal [facility] Dominick 04-22-2024 L -- ---- Specimen: [id number] Received: 04/24/24 Status: OMAR Hayes Num: [id number] Spec Type: Cytology Subm Dr: Cornelius Garrison MD Tissues: A FNA SLIDES NOPATH (INF RT THY) Procedures: Cyto Int and Re, PAPSTN/5 ---- Age/ Patient Sex Location Account Attending Physician ---- Cristine Manley 64/F [place] [id number] Cornelius Garrison MD ---- SPEC NUM: [id number] RECD: 04/24/24 STATUS: OMAR HAYES NUM: [id number] TORI: 04/22/24- SUBM DR: Cornelius Garrison MD ENTERED: 04/24/[address] [facility] [address]: Les Lee MD SPEC TYPE: Cytology DEPT: KEN MINER ENTERED BY: [id number] RECV BY: [id number] ORDERED: Cyto Int and Re, PAPSTN/5 ORDERED: Cyto Int and Re, PAPSTN/5 Supplemental Report Addendum 1 Entered: 05/10/24-1132 Supplemental for findings of [facility] GENOMIC SEQUENCING INTERCELL CONNECTOR PLACER: -Ensemble Acid Condenser -Benign (risk of malignancy 4%) -Xpression [place] -N/A -Other Classifiers -BRAF p. V600E c. 1799T>A: Negative -RET/PTC1: Not detected -RET/PTC3: Not detected -MTC: Negative -Parathyroid: Negative TERT PROMOTER REGION: -Tests (2) not Performed (TNP) ---- Specimen: [id number] Received: 04/24/24 Status: OMAR Hayes Num: [id number] Spec Type: Cytology Subm Dr: Cornelius Garrison MD Tissues: A FNA SLIDES NOPATH (INF RT THY) Procedures: Cyto Int and Re, PAPSTN/5 ---- Patient: Cristine Manley [id number] (Continued) ---- Specimen: [id number] Received: 04/24/24 (Continued) Supplemental Report (Continued) Signed (signature on file) Gail Sheth MD 04/24/24 1439 ---- Specimen: [id number] Received: 04/24/24 Status: OMAR Lopestyree Num: [id number] Spec Type: Cytology Subm Dr: Cornelius Garrison MD Tissues: A FNA SLIDES NOPATH (INF RT THY) Procedures: Cyto Int and Re, PAPSTN/5 ---- Patient: Cristine Manley [id number] (Continued) ---- Specimen: [id number] Received: 04/24/24 (Continued) Supplemental Report (Continued) Addendum Signed (signature on file) Gail Sheth MD 05/10/24 1132 ---- Pathological Diagnosis Right thyroid nodule, inferior, FNA cytology -Adequate follicular groups in the ThinPrep smear, appropriate for assessment, consisting of small to occasionally slightly larger and reactive follicular cells, suggesting dimorphic population and the category 3 Makoti system, atypia of the undetermined significance, otherwise [...] vial stored at -20 for microscopic examination. (AK/nh) Microscopic Description Microscopic examinations are performed supporting the above interpretation CPT Codes 56419 ---- ---- Specimen: [id number] Received: 04/24/24 Status: OMAR Hayes Num: [id number] Spec Type: Cytology Subm Dr: Cornelius Garrison MD Tissues: A FNA SLIDES NOPATH (INF RT THY) Procedures: Cyto Int and Re, PAPSTN/5 ---- Patient: Cristine Manley [id number] (Continued) ---- Signed (signature on file) Chin-Diogenes Sheth MD 04/24/24 1439 Normal [facility] EMG 2 Extremitieson 04-01-20 EMG/NCS BLE Right L5/S1 radic Francisco S1/2 radic [facility] NVC 9-10 Nerveson 04-01-2024 EMG/NCS BLE Right L5/S1 radic Francisco S1/2 radic [facility] Provider Letteron 03-26-2024 Provider Letter Cornelius Garrison MD [address] [place] [address] [place] [address] Re: Cristine Manley Date of Visit: 03/25/2024 [...] Note Normal [facility] Neurosurgery Office/Clinic N oteon 03-25-2024 Neurosurgery Office/Clinic Note Chief Complaint CT thoracic, lumbar, XR lumbar, hips and neck review History of Present Illness The patient is a pleasant 64-year-old right-handed female with history of chronic nicotine use, asthma and recently diagnosed COPD for which she is planned to see a hide spreader in the near future. She also has history of decompression/discecto my T12-L1 by Dr. Ugarte in 2013 with [...] though does not resolve. Oral narcotics including Perry which makes pain tolerable though does not [...] included)... Normal [facility] Basophils Auto (Bld) [#/Vol] on 03-21-2024 Basophils (Bld) [#/Vol] Automated basophil count 0.0-0.1 [facility] Basophils/100 WBC Auto (Bld) on 03-21-2024 Basophils/100 WBC (Bld) Automated basophil % 0.2-2.0 [facility] Eosinophils/100 WBC Auto (Bl d)on 03-21-2024 Eosinophils/100 WBC (Bld) Automated eosinophil % 0.9-7.0 [facility] Erythrocyte distribution wid th Auto (RBC) [Ratio]on 03-21-2024 Erythrocyte distribution width (RBC) [Ratio] Erythrocyte distribution width [Ratio] by Automated count 11.0-15.0 [facility] Hematocrit Auto (Bld) [Volum e fraction]on 03-21-2024 Hematocrit (Bld) [Volume fraction] Hematocrit [Volume Fraction] of Blood by Automated count 36.0-48.0 [facility] Hemoglobin [Mass/volume] in Bloodon 03-21-2024 Hemoglobin (Bld) [Mass/Vol] Hemoglobin [Mass/volume] in Blood 12.0-16.0 [facility] IgE [Units/volume] in Serum or Plasmaon 03-21-2024 IgE Qn IgE [Units/volume] i n Serum or Plasma 6-495 [facility] Comment on above: Performed at: [address] [id number] Director: Levi Pedroza MD, Phone: [phone] Laboratory - Hematology and Cell countson 03-21-2024 Immature granulocytes/100 WBC (Bld) 0.1 % 0.0-0.5 [facility] Leukocytes [#/volume] correc shant for nucleated erythrocytes in Blood by Automated counon 03-21-2024 WBC corrected for nucl RBC Auto (Bld) [#/Vol] Leukocytes [#/volume] corrected for nucleated erythrocytes in Blood by Automated coun 4.0-11.0 [facility] Lymphocytes Auto (Bld) [#/Vo l]on 03-21-2024 Lymphocytes (Bld) [#/Vol] Lymphocytes [#/volume] in Blood by Automated count 1.2-3.8 [facility] Lymphocytes/100 WBC Auto (Bl d)on 03-21-2024 Lymphocytes/100 WBC (Bld) Lymphocytes/100 leukocytes in Blood by Automated count Low 20.5-60.0 [facility] MCH Auto (RBC) [Entitic mass ]on 03-21-2024 MCH (RBC) [Entitic mass] MCH [Entitic mass] by Automated count 26.7-34.0 [facility] MCHC Auto (RBC) [Mass/Vol]on 03-21-2024 MCHC (RBC) [Mass/Vol] MCHC [Mass/volume] by Automated count 29.9-35.2 [facility] MCV Auto (RBC) [Entitic vol] on 03-21-2024 MCV (RBC) [Entitic vol] MCV [Entitic volume] by Automated count 81.0-99.0 [facility] Monocytes Auto (Bld) [#/Vol] on 03-21-2024 Monocytes (Bld) [#/Vol] Automated blood monocyte count 0.3-0.8 [facility] Monocytes/100 WBC Auto (Bld) on 03-21-2024 Monocytes/100 WBC (Bld) Automated monocyte % 1.7-12.0 [facility] Neutrophils Auto (Bld) [#/Vo l]on 03-21-2024 Neutrophils (Bld) [#/Vol] Neutrophils [#/volume] in Blood by Automated count High 1.4-6.5 [facility] Neutrophils/100 WBC Auto (Bl d)on 03-21-2024 Neutrophils/100 WBC (Bld) Automated neutrophil % 43.0-75.0 [facility] No Panel Informationon 03-21 Eosinophils # (Auto) 0.1 10 3/uL 0.0-0.7 [facility] Immature Granulocyte # (Auto) 0.01 10 3/uL 0.00-0.03 [facility] Platelet mean volume Auto (B ld) [Entitic vol]on 03-21-2024 Platelet mean volume (Bld) [Entitic vol] Platelet mean volume [Entitic volume] in Blood by Automated count 9.5-13.5 [facility] Platelets Auto (Bld) [#/Vol] on 03-21-2024 Platelets (Bld) [#/Vol] Platelets [#/volume] in Blood by Automated count 150-450 [facility] RBC Auto (Bld) [#/Vol]on RBC (Bld) [#/Vol] Erythrocytes [#/volume] in Blood by Automated count 4.20-5.40 [facility] Provider Letteron 02-29-2024 Provider Letter Cornelius Whittaker [address] [facility], [place] [address] Re: Cristine Manley Date of Visit: 02/23/2024 Dear Cornelius Garrison MD, Please see attached results on this mutual patient you have with [facility] Result Name Current Result CT Spine Thoracic/Lumbar Myelogram w/Con 02/23/2024 Let me know if you have any questions or concerns. Sincerely, Jaclyn Bliss [facility] Clinical Lead Health Quality Eng C C Providers: Normal [facility] CT Spine Thoracic/Lumbar Mye logram w/Conon 02-27-2024 [...] System) Normal [facility] PTon 02-23-2024 INR Coag (PPP) [Relative time] 1.0 {INR} Normal <=3.5 [facility] Comment on above: Result Comment: INR has no normal range. INR Therapeutic range is: 2.0-3.0 (AF, CVA, TIAs, DVT prophylaxis, acute DVT) 2.5-3.5 ([facility] heart valves, recurrent thrombosis/emboli) Performed By: #### P TINR #### [address] [address] PT Coag (PPP) [Time] 10.3 s Normal 9.2-12.0 [facility] Comment on above: Performed By: #### P TINR #### [address] [address] PTTon 02-23-2024 aPTT Coag (Bld) [Time] 24.8 s Normal 19.5-28.2 [facility] Comment on above: Performed By: #### P TT #### [address] [address] Platelet Counton 02-23-2024 Platelet 300 x10*3/mcL Normal 150-450 [facility] Comment on above: Performed By: #### P LTS #### [address] [address] XR Hip 2-3 Views Lefton 02-08 XR Hip 2-3 Views Left EXAM: XR Hip 2-3 V iews Left, XR Spine Lumbosacral Bending 2-3 Views, [...] System) Normal [facility] XR Myelography Spine 2 or Mo re [...] System) Normal [facility] XR Spine Cervical 4 or 5 Vie [...] System) Normal [facility] XR Spine Lumbosacral Bending 2-3 Viewson 02-23-2024 [...] Electronically Signed in Other Vendor System) [facility] Neurosurgery Office/Clinic N oteon 02-13-2024 Neurosurgery Office/Clinic Note Chief Complaint Back lumbar pain radiculopathy consult History of Present Illness The patient is a pleasant 64-year-old right-handed female with history of chronic nicotine use, asthma and recently diagnosed COPD for which she is planned to see a hide spreader in the near future. She also has history of decompression/discecto my T12-L1 by Dr. Ugarte in 2013 with [...] though does not resolve. Oral narcotics including Perry which makes pain tolerable though does not [...] Newly diagnosed COPD, scheduled to see a hide spreader in the near future Chronic nicotine use Cataracts with plans for upcoming surgical removal. PAST SURGICAL HISTORY: Bilateral bunionectomies, 04/2016 T12-L1 decompression/discecto my by Dr. Ugarte in 2013 Oophorectomy, 1984 [...] marijuana use. 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 She denies any Worker's Comp. related claims regarding today's visit FAMILY HISTORY: Lung cancer: Father Diabetes mellitus: Mother Hypertension: Mother Review of Systems Constitutional: [No fevers, chills, sweats] Eye: [No recent visual problems] ENMT: [ (more content not included)... Normal [facility] Provider Letteron 02-13-2024 Provider Letter Cornelius Garrison MD [address] [place] [address], [facility] [place] [address] Re: Cristine Manley Date of Visit: 02/13/2024 Dear Cornelius Garrison MD, This patient was recently seen in the neurosurgical office. Please see attached note for further details. Let me know if you have any questions or concerns. Sincerely, Ofelia Adis, PA-C C C Providers: The following document(s) were included in the letter: February 13, 2024 09:39:53 EST - (02/13/2024) Neurosurgery Office Visit Note Normal [facility] XR knee BI 3V - NOT FOR ER U Sanam 01-24-2024 XR knee BI 3V - NOT FOR ER USE [facility] [address] [place] [address] XRay Report Signed Patient: Cristine Manley MR#: [id number] 53 : 1960 Acct:[id number] Age/Sex: 64 / F ADM Date: 01/24/24 Loc: [facility] Room: Type: [facility] Attending Dr: Alexandro Galvez DO Copies to: [...] Sunday Graham M.D.01/24/2024 3:45 PM Dictation Location: [place] [address] Transcribed By: [facility] 01/24/24 154 Dictated By: Sunday Graham II, MD 01/24/24 154 Signed By: 01/24/24 154 Normal [facility] Basophils Auto (Bld) [#/Vol] on 01-19-2024 Basophils (Bld) [#/Vol] 0.0 10 3/uL 0.0-0.1 [facility] Basophils (Bld) [#/Vol] Automated basophil count 0.0-0.1 [facility] Basophils/100 WBC Auto (Bld) on 01-19-2024 Basophils/100 WBC (Bld) 0.2 % 0.2-2.0 [facility] Basophils/100 WBC (Bld) Automated basophil % 0.2-2.0 [facility] Eosinophils/100 WBC Auto (Bl d)on 01-19-2024 Eosinophils/100 WBC (Bld) 4.3 % 0.9-7.0 [facility] Eosinophils/100 WBC (Bld) Automated eosinophil % 0.9-7.0 [facility] Erythrocyte distribution wid th Auto (RBC) [Ratio]on 01-19-2024 Erythrocyte distribution width (RBC) [Ratio] 13.1 % 11.0-15.0 [facility] Erythrocyte distribution width (RBC) [Ratio] Erythrocyte distribution width [Ratio] by Automated count 11.0-15.0 [facility] Estimated glomerular filtrat ion rate (GFR) non- Americanon 01-19-2024 GFR/1.73 sq M.predicted among non-blacks MDRD (S/P/Bld) [Vol rate/Area] mL/min/{1.73_m2} >=60 mL/min/1.73m 2 [facility] GFR/1.73 sq M.predicted among non-blacks MDRD (S/P/Bld) [Vol rate/Area] Estimated glomerular filtration rate (GFR) non- >=60 mL/min/1.73m 2 [facility] Fibrin D-dimer [Presence] in Platelet poor plasma by Latex agglutinationon 01-19-2024 Fibrin D-dimer LA Ql (PPP) 0.43 mg/L FEU <=0.59 [facility] Comment on above: Increases in D-Dimer [...] Platelet poor plasma by Latex agglutination <=0.59 [facility] Comment on above: Increases in D-Dimer [...] Hematocrit (Bld) [Volume fraction] 39.5 % 36.0-48.0 [facility] Hematocrit (Bld) [Volume fraction] Hematocrit [Volume Fraction] of Blood by Automated count 36.0-48.0 [facility] Hemoglobin [Mass/volume] in Bloodon 01-19-2024 Hemoglobin (Bld) [Mass/Vol] 12.8 g/dL 12.0-16.0 [facility] Hemoglobin (Bld) [Mass/Vol] Hemoglobin [Mass/volume] in Blood 12.0-16.0 [facility] - Chemistry and C hemistry - challengeon 01-19-2024 Calcium [Mass/Vol] 9.0 mg/dL 8.5-10.1 [facility] Chloride [Moles/Vol] 105 mmol/L 98-107 [facility] CO2 [Moles/Vol] 28.7 mmol/L 21.0-32.0 [facility] Creatinine [Mass/Vol] 0.92 mg/dL 0.55-1.02 [facility] GFR/1.73 sq M.predicted MDRD (S/P/Bld) [Vol rate/Area] mL/min/{1.73_m2} >=60 mL/min/1.73m 2 [facility] Glucose [Mass/Vol] 78 mg/dL 74-106 [facility] Potassium [Moles/Vol] 4.0 mmol/L 3.5-5.1 [facility] Sodium [Moles/Vol] 138 mmol/L 136-145 [facility] Urea nitrogen [Mass/Vol] 27.0 mg/dL High 7.0-18.0 [facility] Urea nitrogen/Creatinine [Mass ratio] 29.3 mg/mg [facility] - Hematology and Cell countson 01-19-2024 Immature granulocytes/100 WBC (Bld) 0.3 % 0.0-0.5 [facility] - Microbiology an d Antimicrobial susceptibilityon 01-19-2024 SARS-CoV-2 (COVID-19) RNA JOSELUIS+probe Ql (Unsp spec) Negative NEGATIVE [facility] Comment on above: This test has [...] (Bld) [#/Vol] 12.6 10 3/uL High 4.0-11.0 [facility] WBC corrected for nucl RBC Auto (Bld) [#/Vol] Leukocytes [#/volume] corrected for nucleated erythrocytes in Blood by Automated coun High 4.0-11.0 [facility] Lymphocytes Auto (Bld) [#/Vo l]on 01-19-2024 Lymphocytes (Bld) [#/Vol] 4.4 10 3/uL High 1.2-3.8 [facility] Lymphocytes (Bld) [#/Vol] Lymphocytes [#/volume] in Blood by Automated count High 1.2-3.8 [facility] Lymphocytes/100 WBC Auto (Bl d)on 01-19-2024 Lymphocytes/100 WBC (Bld) 35.0 % 20.5-60.0 [facility] Lymphocytes/100 WBC (Bld) Lymphocytes/100 leukocytes in Blood by Automated count 20.5-60.0 [facility] MCH Auto (RBC) [Entitic mass ]on 01-19-2024 MCH (RBC) [Entitic mass] 29.4 pg 26.7-34.0 [facility] MCH (RBC) [Entitic mass] MCH [Entitic mass] by Automated count 26.7-34.0 [facility] MCHC Auto (RBC) [Mass/Vol]on 01-19-2024 MCHC (RBC) [Mass/Vol] 32.4 g/dL 29.9-35.2 [facility] MCHC (RBC) [Mass/Vol] MCHC [Mass/volume] by Automated count 29.9-35.2 [facility] MCV Auto (RBC) [Entitic vol] on 01-19-2024 MCV (RBC) [Entitic vol] 90.6 fL 81.0-99.0 [facility] MCV (RBC) [Entitic vol] MCV [Entitic volume] by Automated count 81.0-99.0 [facility] Monocytes Auto (Bld) [#/Vol] on 01-19-2024 Monocytes (Bld) [#/Vol] 1.2 10 3/uL High 0.3-0.8 [facility] Monocytes (Bld) [#/Vol] Automated blood monocyte count High 0.3-0.8 [facility] Monocytes/100 WBC Auto (Bld) on 01-19-2024 Monocytes/100 WBC (Bld) 9.5 % 1.7-12.0 [facility] Monocytes/100 WBC (Bld) Automated monocyte % 1.7-12.0 [facility] Neutrophils Auto (Bld) [#/Vo l]on 01-19-2024 Neutrophils (Bld) [#/Vol] 6.4 10 3/uL 1.4-6.5 [facility] Neutrophils (Bld) [#/Vol] Neutrophils [#/volume] in Blood by Automated count 1.4-6.5 [facility] Neutrophils/100 WBC Auto (Bl d)on 01-19-2024 Neutrophils/100 WBC (Bld) 50.7 % 43.0-75.0 [facility] Neutrophils/100 WBC (Bld) Automated neutrophil % 43.0-75.0 [facility] No Panel Informationon 01-18 Bedside Influenza Type A Antigen Negative [facility] Comment on above: Negative for Flu A p rotein antigen. Infection due to Flu Acannot be ruled out. Flu A antigen in the sample may bebelow the detection limit of the test. Bedside Influenza Type B Antigen Negative [facility] Comment on above: Negative for Flu B p rotein antigen. Infection due to Flu Bcannot be ruled out. Flu B antigen in the sample may bebelow the detection limit of the test. Eosinophils # (Auto) 0.5 10 3/uL 0.0-0.7 [facility] Immature Granulocyte # (Auto) 0.04 10 3/uL High 0.00-0.03 [facility] Troponin I High Sensitivity 5.8 pg/mL 4.0-51.3 [facility] Comment on above: CUT-OFF POINTS HAVE [...] (Bld) [Entitic vol] 9.3 fL Low 9.5-13.5 [facility] Platelet mean volume (Bld) [Entitic vol] Platelet mean volume [Entitic volume] in Blood by Automated count Low 9.5-13.5 [facility] Platelets Auto (Bld) [#/Vol] on 10-11-2024 Platelets (Bld) [#/Vol] 304 10 3/uL 150-450 [facility] Platelets (Bld) [#/Vol] Platelets [#/volume] in Blood by Automated count 150-450 [facility] RBC Auto (Bld) [#/Vol]on RBC (Bld) [#/Vol] 4.36 10 6/uL 4.20-5.40 [facility] RBC (Bld) [#/Vol] Erythrocytes [#/volume] in Blood by Automated count 4.20-5.40 [facility] Serum or plasma anion gap de terminationon 01-19-2024 Anion gap [Moles/Vol] 8.3 mmol/L [facility] Anion gap [Moles/Vol] Serum or plasma an ion gap determination [facility] Borrelia burgdorferi IgG+IgM Ab [Presence] in Serum by Immunoassayon 10-13-2023 B. burgdorferi IgG+IgM IA Ql (S) Negative Negative [facility] Comment on above: Lyme antibodies not detected. Reflex testing is notindicated.No laboratory evidence of infection with B. burgdorferi(Lyme disease). Negative results may occur in patientsrecently infected (less than or equal to 14 days) with B.burgdorferi. If recent infection is suspected, repeattesting on a new sample collected in 7 to 14 days isrecommended.Performed at: [facility] [id number] Director: Jeovany Bazan PhD, Phone: [phone] [facility]on SARS-CoV-2 (COVID-19) RNA JOSELUIS+probe Ql (Unsp spec) Not detected Normal NOT DETECTED [facility] Comment on above: Result Comment: This test is not yet approved or cleared by the [place] FDA. When there are no FDA-approved or cleared tests available, and other criteria are met, FDA can make tests available under an emergency access mechanism called an Emergency Use Authorization (EUA). The EUA for this test is supported by the Set Designer of Health and Human Service's (HHS's) declaration [...] consistent with SARS-CoV-2. Performed By: #### C VDTBH #### [facility] [address] [place] [address] Dr. Pablo Sheth CBC AUTO DIFFon 12-17-2021 BASO # 0.1 103/ul Normal 0.0-0.1 [facility] Comment on above: Performed By: #### D ATCBC #### [facility] [address] [place] [address] Dr. Pablo Sheth Basophils/100 WBC (Bld) 0.4 % Normal 0.2-2.0 [facility] Comment on above: Performed By: #### D ATCBC #### [facility] [address] [place] [address] Dr. Pablo Sheth EO # 0.3 103/ul Normal 0.0-0.7 [facility] Comment on above: Performed By: #### D ATCBC #### [facility] [address] [place] [address] Dr. Pablo Sheth Eosinophils/100 WBC (Bld) 2.4 % Normal 0.9-7.0 [facility] Comment on above: Performed By: #### D ATCBC #### [facility] [address] [place] [address] Dr. Pablo Sheth Erythrocyte distribution width (RBC) [Ratio] 13.2 % Normal 11.0-15.0 [facility] Comment on above: Performed By: #### D ATCBC #### [facility] [address] [place] [address] Dr. Pablo Sheth Hematocrit (Bld) [Volume fraction] 42.6 % Normal 36.0-48.0 [facility] Comment on above: Performed By: #### D ATCBC #### [facility] [address] [place] [address] [address] Pablo Sheth Hemoglobin (Bld) [Mass/Vol] 13.7 g/dL Normal 12.0-16.0 [facility] Comment on above: Performed By: #### D ATCBC #### [facility] [address] [place] [address] [address] Pablo Sheth IG # 0.05 10e3/ul Critically high 0.00-0.03 [facility] Comment on above: Performed By: #### D ATCBC #### [facility] [address] [place] [address] [address] Pablo Sheth IG % 0.4 % Normal 0.0-0.5 [facility] Comment on above: Performed By: #### D ATCBC #### [facility] [address] [place] [address] [address] Pablo Sheth LYMPH # 2.8 103/ul Normal 1.2-3.8 [facility] Comment on above: Performed By: #### D ATCBC #### [facility] [address] [place] [address] [address] Pablo Sheth Lymphocytes/100 WBC (Bld) 20.9 % Normal 20.5-60.0 [facility] Comment on above: Performed By: #### D ATCBC #### [facility] [address] [place] [address] [address] Pablo Sheth MCH (RBC) [Entitic mass] 29.2 pg Normal 26.7-34.0 [facility] Comment on above: Performed By: #### D ATCBC #### [facility] [address] [place] [address] [address] Pablo Sheth MCHC (RBC) [Mass/Vol] 32.2 g/dL Normal 29.9-35.2 [facility] Comment on above: Performed By: #### D ATCBC #### [facility] [address] [place] [address] [address] Pablo Sheth MCV (RBC) [Entitic vol] 90.8 fL Normal 81.0-99.0 [facility] Comment on above: Performed By: #### D ATCBC #### [facility] [address] [place] [address] [address] Pablo Sheth MONO # 1.0 103/ul Critically high 0.3-0.8 [facility] Comment on above: Performed By: #### D ATCBC #### [facility] [address] [place] [address] [address] Pablo Sheth Monocytes/100 WBC (Bld) 7.5 % Normal 1.7-12.0 [facility] Comment on above: Performed By: #### D ATCBC #### [facility] [address] [place] [address] [address] Pablo Sheth NEUT # 9.2 103/ul Critically high 1.4-6.5 [facility] Comment on above: Performed By: #### D ATCBC #### [facility] [address] [place] [address] Dr. Pablo Sheth Neutrophils/100 WBC (Bld) 68.4 % Normal 43.0-75.0 [facility] Comment on above: Performed By: #### D ATCBC #### [facility] [address] [place] [address] [address] Pablo Sheth Platelet mean volume (Bld) [Entitic vol] 9.3 fL Critically low 9.5-13.5 [facility] Comment on above: Performed By: #### D ATCBC #### [facility] [address] [place] [address] [address] Pablo Sheth PLT 313 103/ul Normal 150-450 [facility] Comment on above: Performed By: #### D ATCBC #### [facility] [address] [place] [address] Dr. Pablo Sheth RBC 4.69 106/ul Normal 4.20-5.40 [facility] Comment on above: Performed By: #### D ATCBC #### [facility] [address] [place] [address] [address] Pablo Sheth WBC 13.4 103/ul Critically high 4.0-11.0 [facility] Comment on above: Performed By: #### D ATCBC #### [facility] [address] [place] [address] [address] Pablo Sheth BERKLEY - TSHon 12-17-2021 TSH 1.241 uIU/mL Normal 0.358-3.740 [facility] Comment on above: Performed By: #### D ATTTONYA, DATBMP #### [facility] [address] [place] [address] Dr. Pablo Sheth TSH RANGE SEE BELOW Normal [facility] Comment on above: Result Comment: <0.3 4 UIU/ml HYPERTHYROID 0.34-5.60 UIU/ml EUTHYROID >5.60 UIU/ml HYPOTHYROID Performed By: #### D JOSE J DATBMP #### [facility] [address] [place] [address] Dr. Pablo Sheth BERKLEY- BMP WITH LIPIDon 2021 Anion gap [Moles/Vol] 11.9 mmol/L Normal [facility] Comment on above: Performed By: #### D JOSE J DATBMP #### [facility] [address] [place] [address] Dr. Pablo Sheth Calcium [Mass/Vol] 9.1 mg/dL Normal 8.5-10.1 [facility] Comment on above: Performed By: #### D JOSE J DATBMP #### [facility] [address] [place] [address] Dr. Pablo Sheth Chloride [Moles/Vol] 104 mmol/L Normal 98-107 [facility] Comment on above: Performed By: #### D LISSETSH DATBMP #### [facility] [address] [place] [address] Dr. Pablo Sheth Cholesterol [Mass/Vol] 207 mg/dL Critically high <=200 [facility] Comment on above: Performed By: #### D ATTTONYA, DATBMP #### [facility] [address] [place] [address] Dr. Pablo Sheth Cholesterol in HDL [Mass/Vol] 52 mg/dL Normal 40-60 [facility] Comment on above: Performed By: #### D ATTSH, DATBMP #### [facility] [address] [address] [address] Pablo Sheth Cholesterol in LDL [Mass/Vol] 141.4 mg/dL Normal [facility] Comment on above: Performed By: #### D ATTSH, DATBMP #### [facility] [address] [place] [address] [address] Pablo Sheth CO2 [Moles/Vol] 29.3 mmol/L Normal 21.0-32.[address] [facility] Comment on above: Performed By: #### D ATTSH, DATBMP #### [facility] [address] [place] [address] [address] Pablo Sheth Creatinine [Mass/Vol] 0.77 mg/dL Normal 0.55-1.02 [facility] Comment on above: Performed By: #### D ATTSH, DATBMP #### [facility] [address] [place] [address] [address] Pablo Sheth EGFR-AF GUATEMALAN >60 Normal >=[address] [facility] Comment on above: Performed By: #### D ATTSH, DATBMP #### [facility] [address] [place] [address] [address] Pablo Sheth EGFR-NON AF GUATEMALAN >60 Normal >=60 [facility] Comment on above: Performed By: #### D ATTSH, DATBMP #### [facility] [address] [address] [address] Pablo Sheth Glucose [Mass/Vol] 109 mg/dL Critically high 74-106 [facility] Comment on above: Performed By: #### D ATTSH, DATBMP #### [facility] [address] [place] [address] [address] Pablo Sheth HDL NORMAL > or = 60 mg/dl - LO W CARDIOVASCULAR RISK <40 mg/dl - HIGH CARDIOVASCULAR RISK Normal [facility] Comment on above: Performed By: #### D ATTSH, DATBMP #### [facility] [address] [address] [address] Pablo Sheth LDL CALC NORMAL SEE BELOW Normal [facility] Comment on above: Result Comment: <100 mg/dl OPTIMAL 100 - 129 mg/dl NEAR OR ABOVE OPTIMAL 130 - 159 mg/dl BORDERLINE HIGH 160 - 189 mg/dl HIGH >190 mg/dl VERY HIGH Performed By: #### D JOSE J DATBMP #### [facility] [address] [place] [address] Dr. Pablo Sheth Potassium [Moles/Vol] 4.2 mmol/L Normal 3.5-5.1 [facility] Comment on above: Performed By: #### D JOSE J DATBMP #### [facility] [address] [place] [address] Dr. Pablo Sheth Sodium [Moles/Vol] 141 mmol/L Normal 136-145 [facility] Comment on above: Performed By: #### D JOSE J DATBMP #### [facility] [address] [place] [address] Dr. Pablo Sheth Triglyceride [Mass/Vol] 68 mg/dL Normal <=150 [facility] Comment on above: Performed By: #### D JOSE J DATBMP #### [facility] [address] [place] [address] Dr. Pablo Sheth Urea nitrogen [Mass/Vol] 26.0 mg/dL Critically high 7.0-18.0 [facility] Comment on above: Performed By: #### D JOSE J DATBMP #### [facility] [address] [place] [address] Dr. Pablo Sheth Urea nitrogen/Creatinine [Mass ratio] 33.8 mg/mg Normal [facility] Comment on above: Performed By: #### D JOSE J DATBMP #### [facility] [address] [place] [address] Dr. Pablo Sheth VLDL CALC 13.6 mg/dL Normal [facility] Comment on above: Performed By: #### D JOSE J DATBMP #### [facility] [address] [place] [address] Dr. Pablo Sheth Vital Signs Date Time Vital Sign Value Performing Clinician Facility 09-27-2024 14:55-0400 Diastolic blood pressure 77 mm[Hg] Cornelius Garrison MD Work Phone: [facility] 09-27-2024 14:55-0400 Heart rate 86 /min Cornelius Garrison MD Work Phone: [facility] 09-27-2024 14:55-0400 Systolic blood pressure 107 mm[Hg] Cornelius Garrison MD Work Phone: [facility] 09-27-2024 14:42-0400 Body height 170.18 cm Cornelius Garrison MD Work Phone: [facility] 09-27-2024 14:42-0400 Body mass index (BMI) [Ratio] 26.4 kg/m2 Cornelius Garrison MD Work Phone: [facility] 09-27-2024 14:42-0400 Body temperature 98.5 [degF] Cornelius Garrison MD Work Phone: [facility] 09-27-2024 14:42-0400 Body weight 76.65 kg Cornelius Garrison MD Work Phone: [facility] 09-27-2024 14:42-0400 SaO2% (BldA) [Mass fraction] 98 % Cornelius Garrison MD Work Phone: [facility] 06-26-2024 08:30-0400 Body height 170.18 cm Cornelius Garrison MD Work Phone: [facility] 06-26-2024 08:30-0400 Body mass index (BMI) [Ratio] 27.6 kg/m2 Cornelius Garrison MD Work Phone: [facility] 06-26-2024 08:30-0400 Body weight 79.94 kg Cornelius Garrison MD Work Phone: [facility] 06-26-2024 08:30-0400 Diastolic blood pressure 107 mm[Hg] Cornelius Garrison MD Work Phone: [facility] 06-26-2024 08:30-0400 Heart rate 80 /min Cornelius Garrison MD Work Phone: [facility] 06-26-2024 08:30-0400 Respiratory rate 12 /min Cornelius Garrison MD Work Phone: [facility] 06-26-2024 08:30-0400 SaO2% (BldA) [Mass fraction] 95 % Cornelius Garrison MD Work Phone: [facility] 06-26-2024 08:30-0400 Systolic blood pressure 168 mm[Hg] Cornelius Garrison MD Work Phone: [facility] 06-05-2024 14:11-0500 Body height 170.2 cm Geoff Walker DO Work Phone: [facility] 06-05-2024 14:11-0500 Body mass index (BMI) [Ratio] 27.72 kg/m2 Geoff Walker DO Work Phone: [facility] 06-05-2024 14:11-0500 Body weight 80.29 kg Geoff Moyergovindhenrietta DO Work Phone: [facility] 04-15-2024 15:14-0500 Body height 170.18 cm Cornelius Garrison MD Work Phone: [facility] 04-15-2024 15:14-0500 Body mass index (BMI) [Ratio] 27.7 kg/m2 Cornelius aGrrison MD Work Phone: [facility] 04-15-2024 15:14-0500 Body temperature 98.4 [degF] Cornelius Garrison MD Work Phone: [facility] 04-15-2024 15:14-0500 Body weight 80.28 kg Cornelius Garrison MD Work Phone: [facility] 04-15-2024 15:14-0500 Diastolic blood pressure 82 mm[Hg] Cornelius Garrison MD Work Phone: [facility] 04-15-2024 15:14-0500 Heart rate 83 /min Cornelius Garrison MD Work Phone: [facility] 04-15-2024 15:14-0500 Respiratory rate 20 /min Cornelius Garrisno MD Work Phone: [facility] 04-15-2024 15:14-0500 SaO2% (BldA) [Mass fraction] 96 % Cornelius Garrison MD Work Phone: [facility] 04-15-2024 15:14-0500 Systolic blood pressure 128 mm[Hg] Cornelius Garrison MD Work Phone: [facility] 03-29-2024 08:56-0500 Body height 170.18 cm Cornelius Garrison MD Work Phone: [facility] 03-29-2024 08:56-0500 Body mass index (BMI) [Ratio] 27.2 kg/m2 Cornelius Garrison MD Work Phone: [facility] 03-29-2024 08:56-0500 Body weight 78.92 kg Cornelius Garrison MD Work Phone: [facility] 03-29-2024 08:56-0500 Diastolic blood pressure 86 mm[Hg] Cornelius Garrison MD Work Phone: [facility] 03-29-2024 08:56-0500 Heart rate 91 /min Cornelius Garrison MD Work Phone: [facility] 03-29-2024 08:56-0500 SaO2% (BldA) [Mass fraction] 95 % Cornelius Garrison MD Work Phone: [facility] 03-29-2024 08:56-0500 Systolic blood pressure 124 mm[Hg] Cornelius Garrison MD Work Phone: [facility] 03-11-2024 15:29-0500 Body height 170.18 cm Cornelius Garrison MD Work Phone: [facility] 03-11-2024 15:29-0500 Body mass index (BMI) [Ratio] 27.8 kg/m2 Cornelius Garrison MD Work Phone: [facility] 03-11-2024 15:29-0500 Body temperature 97.6 [degF] Corenlius Garrison MD Work Phone: [facility] 03-11-2024 15:29-0500 Body weight 80.73 kg Cornelius Garrison MD Work Phone: [facility] 03-11-2024 15:29-0500 Diastolic blood pressure 80 mm[Hg] Cornelius Garrison MD Work Phone: [facility] 03-11-2024 15:29-0500 Heart rate 82 /min Cornelius Garrison MD Work Phone: [facility] 03-11-2024 15:29-0500 Respiratory rate 20 /min Cornelius Garrison MD Work Phone: [facility] 03-11-2024 15:29-0500 SaO2% (BldA) [Mass fraction] 98 % Cornelius Garrison MD Work Phone: [facility] 03-11-2024 15:29-0500 Systolic blood pressure 134 mm[Hg] Cornelius Garrison MD Work Phone: [facility] 02-08-2024 13:55-0400 Body height 170.18 cm MD Cornelius Garrison Work Phone: [facility] 02-08-2024 13:55-0400 Body mass index (BMI) [Ratio] 27.9 kg/m2 MD Cornelius Garrison Work Phone: [facility] 02-08-2024 13:55-0400 Body weight 80.9 kg MD Cornelius Garrison Work Phone: [facility] 02-08-2024 13:55-0400 Diastolic blood pressure 78 mm[Hg] MD Cornelius Garrison Work Phone: [facility] 02-08-2024 13:55-0400 Heart rate 74 /min MD Cornelius Garrison Work Phone: [facility] 02-08-2024 13:55-0400 SaO2% (BldA) [Mass fraction] 96 % MD Cornelius Garrison Work Phone: [facility] 02-08-2024 13:55-0400 Systolic blood pressure 110 mm[Hg] MD Cornelius Garrison Work Phone: [facility] 01-24-2024 14:35-0400 Body height 170.18 cm MD Cornelius Garrison Work Phone: [facility] 01-24-2024 14:35-0400 Body mass index (BMI) [Ratio] 28.3 kg/m2 MD Cornelius Garrison Work Phone: [facility] 01-24-2024 14:35-0400 Body weight 82.21 kg MD Cornelius Garrison Work Phone: [facility] 01-09-2024 15:17-0400 Body height 167.64 cm [facility] 01-09-2024 15:17-0400 Body mass index (BMI) [Ratio] 28.2 kg/m2 [facility] 01-09-2024 15:17-0400 Body weight 79.37 kg [facility] 01-09-2024 15:17-0400 Diastolic blood pressure 91 mm[Hg] [facility] 01-09-2024 15:17-0400 Heart rate 76 /min [facility] 01-09-2024 15:17-0400 SaO2% (BldA) [Mass fraction] 97 % [facility] 01-09-2024 15:17-0400 Systolic blood pressure 135 mm[Hg] [facility] 11-01-2023 08:57-0400 Body height 167.64 cm [facility] 11-01-2023 08:57-0400 Body mass index (BMI) [Ratio] 28.2 kg/m2 [facility] 11-01-2023 08:57-0400 Body weight 79.37 kg [facility] 11-01-2023 08:57-0400 Diastolic blood pressure 90 mm[Hg] [facility] 11-01-2023 08:57-0400 Heart rate 63 /min [facility] 11-01-2023 08:57-0400 Systolic blood pressure 136 mm[Hg] [facility] 10-13-2023 09:19-0400 Body height 167.64 cm [facility] 10-13-2023 09:19-0400 Body mass index (BMI) [Ratio] 28 kg/m2 [facility] 10-13-2023 09:19-0400 Body weight 78.92 kg [facility] 10-13-2023 09:19-0400 Diastolic blood pressure 76 mm[Hg] [facility] 10-13-2023 09:19-0400 Heart rate 78 /min [facility] 10-13-2023 09:19-0400 SaO2% (BldA) [Mass fraction] 98 % [facility] 10-13-2023 09:19-0400 Systolic blood pressure 118 mm[Hg] [facility] 07-31-2023 10:09-0400 Body height 167.64 cm [facility] 07-31-2023 10:09-0400 Body mass index (BMI) [Ratio] 28.8 kg/m2 [facility] 07-31-2023 10:09-0400 Body weight 80.9 kg [facility] 07-31-2023 10:09-0400 Diastolic blood pressure 89 mm[Hg] [facility] 07-31-2023 10:09-0400 Heart rate 74 /min [facility] 07-31-2023 10:09-0400 Systolic blood pressure 138 mm[Hg] [facility] 12-22-2021 14:20-0400 Blood Pressure Location Mihaela CASAS [facility] [place] 12-22-2021 14:20-0400 Diastolic blood pressure 80 mm[Hg] Mihaela CASAS [facility] [place] 12-22-2021 14:20-0400 Heart rate 72 /min Mihaela CASAS [facility] [place] 12-22-2021 14:20-0400 Respiratory rate 16 /min Mihaela CASAS [facility] 12-22-2021 14:20-0400 Systolic blood pressure 116 mm[Hg] Mihaela CASAS [facility] [place] Encounters Encounter Date Encounter Type Care Provider Facility Start: 11-18-2024 ambulatory CORNELIUS GARRISON Facility:[facility] [place] Start: 11-07-2024 ambulatory CORNELIUS GARRISON Facility:[facility] [place] Start: 11-03-2024 End: 11-03-2024 ambulatory Cornelius Garrison MD Work Phone: [facility] Work Phone: Start: 11-03-2024 End: 11-03-2024 Departed Referred Cornelius Garrison MD -[facility] Start: 11-03-2024 Non-patient / Non-visit Carlin kumari MD -[facility] Work Phone: Start: 10-02-2024 Non-patient / Non-visit Vera Peace [facility] Work Phone: Start: 10-01-2024 End: 10-01-2024 Emergency department patient visit CORNELIUS GARRISON [facility] Start: 09-27-2024 End: 09-27-2024 Patient encounter procedure Cornelius Garrison MD -[facility] Work Phone: Start: 07-30-2024 End: 07-30-2024 ambulatory Cornelius Garrison MD Facility:[facility] Start: 07-22-2024 End: 07-22-2024 ambulatory Cornelius Garrison MD Facility:[facility] [place] Start: 07-08-2024 End: 07-08-2024 ambulatory Duong Oreilly MD Facility:[facility] [place] Start: 06-26-2024 End: 06-26-2024 ambulatory Cornelius Garrison MD Work Phone: [facility] Work Phone: Start: 06-26-2024 End: 06-26-2024 Patient encounter procedure Cornelius Garrison MD Work Phone: [facility] Work Phone: Start: 06-17-2024 End: 06-17-2024 ambulatory Duong Oreilly MD Facility:[facility] [place] Start: 06-06-2024 End: 06-06-2024 ambulatory Cornelius Garrison MD Facility:[facility] Start: 06-05-2024 End: 06-05-2024 Office outpatient new 45 minutes Geoff Walker DO Work Phone: [facility] Comment on above: Thyroid nodule (CMS/ HCC) (Primary Dx) Start: 06-05-2024 End: 06-05-2024 Bamboo flowsheet Geoff Gregor Walker DO Work Phone: [facility] Start: 06-05-2024 End: 06-05-2024 Bamboo flowsheet Geoff Walker DO Work Phone: [facility] Start: 06-05-2024 End: 06-05-2024 ambulatory GEOFF WALKER Not Available Start: 05-13-2024 End: 05-13-2024 ambulatory Duong Oreilly MD Facility:[facility] [place] Start: 05-10-2024 ambulatory Cornelius Garrison MD Work Phone: [facility] Work Phone: Start: 05-10-2024 Non-patient / Non-visit Cornelius Garrison MD [facility] Work Phone: Start: 04-29-2024 End: 04-29-2024 ambulatory Duong Oreilly MD Facility:[facility] [place] Start: 04-22-2024 End: 04-22-2024 ambulatory Cornelius Garrison MD Work Phone: [facility] Work Phone: Start: 04-22-2024 End: 04-22-2024 Departed Referred Cornelius Garrison MD Work Phone: [facility] Start: 04-22-2024 End: 04-22-2024 ambulatory Cornelius Garrison MD Facility:[facility] [place] Start: 04-15-2024 End: 04-15-2024 ambulatory Cornelius Garrison MD Work Phone: [facility] Work Phone: Start: 04-15-2024 End: 04-15-2024 Patient encounter procedure Cornelius Garrison MD Work Phone: [facility] Work Phone: Start: 04-01-2024 End: [...] encounter procedure Cornelius Garrison MD Work Phone: [facility] Work Phone: Start: 03-25-2024 End: 03-25-2024 ambulatory Cornelius Garrison MD Facility:[facility] Start: 03-21-2024 Non-patient / Non-visit Cornelius Garrison MD Work Phone: [facility] Work Phone: Start: 03-11-2024 End: 03-11-2024 Patient encounter procedure Cornelius Garrison MD Work Phone: [facility] Work Phone: Start: 03-04-2024 Non-patient / Non-visit Cornelius Garrison MD Work Phone: [facility] Work Phone: Start: 03-04-2024 End: 03-04-2024 Patient encounter procedure Cornelius Garrison MD Work Phone: [facility] Work Phone: Start: 03-04-2024 End: 03-04-2024 ambulatory Cornelius Garrison Facility:[facility] Start: 02-23-2024 End: 02-23-2024 ambulatory Cornelius Garrison MD Facility:[facility] Start: 02-19-2024 End: 02-19-2024 ambulatory Cornelius Garrison MD Facility:[facility] Start: 02-13-2024 End: 02-13-2024 ambulatory Cornelius Garrison MD Facility:[facility] Start: 02-08-2024 End: 02-08-2024 ambulatory MD Cornelius Garrison Work Phone: [facility] Work Phone: Start: 02-08-2024 End: 02-08-2024 Patient encounter procedure MD Cornelius Garrison Work Phone: [facility] Work Phone: Start: 02-07-2024 Non-patient / Non-visit MD Mala Garrison Work Phone: [facility] Work Phone: Start: 02-01-2024 Non-patient / Non-visit Cornelius Garrison MD Work Phone: [facility] Work Phone: Start: 01-24-2024 End: 01-24-2024 ambulatory MD Cornelius Garrison Work Phone: [facility] Work Phone: Start: 01-24-2024 End: 01-24-2024 Patient encounter procedure MD Cornelius Garrison Work Phone: [facility] Work Phone: Start: 01-24-2024 End: 01-24-2024 Patient encounter procedure MD Cornelius Garrison Work Phone: [facility] Start: 01-24-2024 End: 01-24-2024 ambulatory MD Cornelius Garrison Work Phone: [facility] Work Phone: Start: 01-19-2024 Non-patient / Non-visit MD Mala Garrison Work Phone: [facility] Work Phone: Start: 01-19-2024 Non-patient / Non-visit MD Mala Garrison Work Phone: [facility] Work Phone: Start: 01-09-2024 End: 01-09-2024 ambulatory [facility] Work Phone: Start: 01-09-2024 End: 01-09-2024 Patient encounter procedure [facility] Work Phone: Start: 11-01-2023 End: 11-01-2023 ambulatory [facility] Work Phone: Start: 11-01-2023 End: 11-01-2023 Patient encounter procedure [facility] Work Phone: Start: 10-13-2023 End: 10-13-2023 ambulatory [facility] Work Phone: Start: 10-13-2023 End: 10-13-2023 Patient encounter procedure [facility] Work Phone: Start: 07-31-2023 End: 07-31-2023 ambulatory [facility] Work Phone: Start: 07-31-2023 End: 07-31-2023 Patient encounter procedure [facility] Work Phone: Start: 05-26-2023 Non-patient / Non-visit [facility] Work Phone: Start: 02-01-2022 End: 02-01-2022 Patient encounter procedure Mihaela CASAS [facility] [place] Start: 01-13-2022 Encounter for preprocedural laboratory examination DR MIHAELA CASAS [facility] Start: 01-12-2022 End: 01-12-[address] CORNELIUS GARRISON Facility:[facility] Start: 01-10-2022 End: 01-11-[address] MIHAELA CASAS Facility:[facility] Start: 01-10-2022 End: 01-11-2022 Encounter for preprocedural laboratory examination DR MIHAELA CASAS Facility:[facility] Start: 12-22-2021 End: 12-22-2021 Patient encounter procedure Mihaela CASAS General [facility] [place] Start: 12-17-2021 End: 12-18-[address] DOCTOR KAISER Facility:[facility] Procedures Date Procedure Procedure Detail Performing Clinician Start: 04-01-2024 End: 04-01-2024 Needle emg ea extremty w/paraspinl area complete Kane Perez DO Work Phone: Start: 01-24-2024 X-ray of both knees, three views MD Anoop Garrison Work Phone: Start: 01-12-2022 Colonoscopy Geoff Comfortshyann DO Work Phone: Start: 01-12-2022 Colonoscopy Mihaela NILShahriar Start: 01-12-2022 Esophagogastroduodenoscopy Mihaela NILL Bilateral oophorectomy Ebenezer CASAS Colonoscopy Mihaela NILL Decompression of thoracic spine Mihaela NILL Discectomy of spine Mihaela NILL Comment on above: T12-L1 T12-L1 Esophagogastroduodenoscopy Jax KERN[place] Excision of bunion Mihaela HALL Repair of vaginal tear Ebenezer shiv NILL Tonsillectomy Mihaela KERNL Plan of Treatment Date Care Activity Detail Author Start: 01-13-2032 Screening for malign ant neoplasm of colon [facility] Start: 06-10-2025 End: 06-10-2025 Patient encounter procedure 06/10/2025 8:45 AM EST Office Visit [facility] [address] [place] [id number] Geoff Walker, DO [address] [place] [address] [facility] Start: 11-03-2024 Bacteria identified in Urine by Culture Urine Culture [facility] Start: 11-03-2024 Urine culture [facility] Start: 06-26-2024 Patient referral [facility] Work Phone: Start: 06-05-2024 End: 06-05-2024 Patient encounter procedure 06/05/2024 2:30 PM EST Office Visit [facility] [address] [place] [phone] Geoff Walker, DO [address] [place] [address] Arrived [facility] Comment on above: Arrived Start: 05-10-2024 Patient referral [facility] Work Phone: Start: 04-05-2024 Patient referral [facility] Work Phone: Start: 04-01-2024 End: 04-01-2024 Patient encounter procedure 04/01/2024 3:00 PM EST Procedure [facility] [address] [place] [address] Kane Perez DO [address] [place] [address] Arrived [facility] Comment on above: Arrived Start: 01-24-2024 X-ray of both knees, three views XR knee BI 3V - NOT FOR ER USE [facility] Start: 01-24-2024 XR Knee - bilateral 3 Views [facility] Start: 01-22-2024 Pneumococcal Vaccine : 65+ Years (1 of 1 - PCV) Pneumococcal Vaccine: 65+ Years (1 of 1 - PCV) [facility] Start: 01-10-2024 Patient referral [facility] Work Phone: Start: 12-10-2023 Influenza vaccination Influenza Vacc ine (#1) [facility] Start: 1999 Screening for malign ant neoplasm of breast Mammogram [facility] Start: 1989 Screening for malign ant neoplasm of cervix [facility] Start: 01-22-1980 Screening for malign ant neoplasm of cervix Pap Smear [facility] Start: 1959 Screening for malign ant neoplasm of colon [facility] CT Unspecified body region [facility] CT Unspecified body region [facility] DXA Skeletal system.axial Views for bone density [facility] Patient Education Low back pain in adults [facility] Work Phone: Patient referral [facility] Work Phone: US Lower extremity v ein - right [facility] US Thyroid gland [facility] Immunizations Immunization Date Immunization Notes Care Provider Fa cility 03-11-2024 diphtheria, tetanus toxoids and acellular pertussis vaccine, unspecified formulation Cornelius Garrison MD Work Phone: [facility] 03-29-2021 COVID-19 mRNA, Comirnaty (Pfizer) [facility] 08-11-2020 COVID-19 mRNA, Comirnaty (Pfizer) [facility] 07-21-2020 COVID-19 mRNA, Comirnaty (Pfizer) [facility] 10-07-2018 diphtheria, tetanus toxoids and acellular pertussis vaccine, unspecified formulation [facility] 02-05-2014 tetanus and diphther ia toxoids, adsorbed, preservative free, for adult use (5 Lf of tetanus toxoid and 2 Lf of diphtheria toxoid) [facility] Payers Date Payer Category Payer Other GENERIC OTHER [id number] 2024 Unknown [id number] 2024 Medicare [id number] 2024 Medicare [id number] 2023 Unknown 1959 Self-pay [id number] 1959 Unknown [id number] 2.16.840.1.211854.3.579.2 .593 1959 Unknown [id number] 2.16.840.1.309209.3.579.2 .593 1959 Unknown [id number] 2.16.840.1.359464.3.579.2 .1259 1959 Unknown [id number] 2.16.840.1.839215.3.579.2 .1259 1959 Unknown [id number] 2.16.840.1.724785.3.579.2 .196 1959 Unknown [id number] 2.16.840.1.572232.3.579.2 .196 1959 Unknown [id number] 2.16.840.1.934933.3.579.2 .196 1959 Unknown [id number] 2.16.840.1.200760.3.579.2 .196 1959 Unknown [id number] 2.16.840.1.334291.3.579.2 .196 1959 Unknown [id number] 2.16.840.1.167101.3.579.2 .196 1959 Unknown [id number] 2.16.840.1.443523.3.579.2 .196 1959 Unknown [id number] 2.16.840.1.854205.3.579.2 .196 1959 Unknown [id number] 2.16.840.1.742196.3.579.2 .196 1959 Unknown [id number] 2.16.840.1.638706.3.579.2 .196 1959 Unknown [id number] 2.16.840.1.745854.3.579.2 .196 1959 Unknown [id number] 2.16.840.1.292776.3.579.2 .196 1959 Unknown [id number] 2.16.840.1.850787.3.579.2 .1286 1959 Unknown [id number] 2.16.840.1.929048.3.579.2 .727 Private Health Insurance [employer] MCR PFFS G [id number] Unknown [id number] Unknown [id number] 2.16.840.1.480565.3.579.2 .593 Unknown MMO [employer] [id number] Social History Date Type Detail Facility Start: 12-22-2021 Heavy tobacco smoker (finding) [facility] Start: 06-05-2024 Female General [facility] Start: 07-31-2023 End: 04-15-2024 Tobacco smoking status NHIS Smoker (finding) [facility] Start: 1960 Sex Assigned At Female [facility] Start: 1960 Sex assigned at Not on file [facility] Start: 04-15-2024 End: 06-26-2024 Sex Female (finding) [facility] Start: 04-15-2024 End: 06-05-2024 Tobacco smoking status [facility] Smokes tobacco daily [facility] History of tobacco use Cigarette Smoker [facility] Start: 06-05-2024 Tobacco use and exposure Smokeless tobacco non-user [facility] Start: 06-05-2024 Alcoholic beverage intake Ex-drinker (finding) [facility] Start: 06-05-2024 History of Social function [facility] Healthcare Functional Status Date Assessment Result Facility 12-22-2021 N/A [facility] [place] Clinical Notes 01-12-2022 to 09-27-2024 Note Date & Type Note Facility 09-27-2024 Evaluation note Diagnosis Onset Date Resolution Gastroenteritis acute September 2:23pm Lumbar radiculopathy, chronic acute September 27, 2024 2:23pm [facility] Work Phone: 1(379) 909-519902-26-2025 History of Present illness Narrative* Geoff Walker, - 06/05/2024 2:30 PM EST Subjective Patient ID: HPI 64-year-old female referred for a right thyroid mass. This was found during a workup for something else. Ultrasound was done showing a 2.8 cm inferior based right thyroid mass. FNA was performed which came back as Makoti III, Afirma testing was then done showing [...] nodules inferior, somewhat heterogeneous with no internal vascularityor calcification measuring 2.75 cm in greatest dimension. [...] back in 1 year documented in this encounterRusk [facility] [id number] Hospital Discharge instructionsAmbulatory Orders* Referral to ENT Time Frame: 05/10/24, Location: [facility] Work Phone: 1(864) 838-566712-23-2024 History of Present illness Narrative* BRENDA Nuñez - 04/01/2024 3:00 PM EST Images from the original note were not included. Reason for Appointment: EMG Patient: Cristine Manley : 1960 EMG Computer: [employer] Referring Physician: Ofelia Arceo PA-C EMG: BLE communications director: Daniel Dougherty RT(R) Office Location: [place] Reason for EMG: c/o numbness/tingling in bilateral feet, burning sensation in posterior left thigh,muscle spasms in bilateral legs L>R, low back pain that radiates down left leg. No hx of DM. Noton blood thinners. Comments: Procedure was explained to the patient who expressed understanding. Patient appeared to have tolerated the test well despite some discomfort due to the nature of the test. documented in this encounterRusk Rehabilitation [id number] Evaluation note* Diagnosis Onset Date Resolution Status Admit Date Lumbar radiculopathy, chronic acute March 29, 2024 8:45am Pain in posterior right lowe r extremity acute March 29, 024 8:45am Right thyroid nodule acute Dece mb2023 8:45am Cigarette nicotine dependenc e with nicotine-induced disorder acute J anuary 2024 3:12pm Encounter for screening for lung cancer acute April 15 3:12pm half-way (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 of 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 acute April 15 3:12pm Moderate persistent asthma, uncomplicated acute April 15 3:12pm Lumbar radiculopathy, chronic acute June 26, 2024 8:28am [facility] Work Phone: 1(968) 349-683012-02-2024 Evaluation note* Diagnosis Onset Date Resolution Status [...] for lung cancer acute April 15 3:12pm 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 Thank you for choosing [facility] for your care.[facility]10-31-2024 Evaluation note* Diagnosis Onset Date Resolution Status [...] for lung cancer acute April 15 3:12pm half-way (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 of 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 acute April 15 3:12pm Moderate persistent asthma, uncomplicated acute April 15 3:12pm [facility] Work Phone: 1(468) 190-386410-16-2024 Evaluation note* Diagnosis Onset Date Resolution Status [...] persistent asthma, uncomplicated acute April 15 3:12pm [facility] Work Phone: 1(951) 498-869710-05-2022 NoteOPERATIVE NOTE OPERATION DATE: 01/12/2022 PREOPERATIVE DIAGNOSIS: [...] of the polyp. CC: Cornelius Garrison M.D.[facility] No data available for this section [facility] [place] Evaluation note* Diagnosis Onset Date Resolution Status Lumbar radiculopathy, chronic acute [facility] Work Phone: Evaluation note* Diagnosis Onset Date Resolution Status Lumbar radiculopathy, chronic acute Headache acute Joint pain acute Tick bite [facility] Work Phone: Evaluation note* Diagnosis Onset Date Resolution Status Headache acute Joint pain acute Tick bite acute Chronic obstructive pulmonary disease, unspecified acute Lumbar radiculopathy, chronic acute [facility] Work Phone: Evaluation note* Diagnosis Onset Date Resolution Status Chronic obstructive pulmonary disease, unspecified acute Lumbar radiculopathy, chronic acute Bilateral knee pain acute COPD exacerbation acute Lumbar pain acute Lumbar radiculopathy, chronic acute Bilateral knee pain acute Primary osteoarthritis of both knees acute [facility] Work Phone: Evaluation note* Diagnosis Onset Date Resolution Status Bilateral knee pain acute COPD exacerbation acute Lumbar pain acute Lumbar radiculopathy, chronic acute Bilateral knee pain acute Primary osteoarthritis of both knees acute Menopause acute [facility] Work Phone: Evaluation note* Diagnosis Lumbosacral radiculopathy- Primary Thoracic or lumbosacral neuritis or radiculitis, unspecified Numbness and tingling Disturbance of skin sensation documented [facility] this [facility] Diagnosis Thyroid nodule (CMS/HCC)- Primary Nontoxic uninodular goiter documented [facility] this encounter [facility] instructions No data available for this section [facility] [place] [facility] Discharge instructionsAmbulatory Orders* Referral to Orthopedics Time Frame: 06/26/24, Location: None Selected [facility] Work Phone: Progress note No data available for this section [facility] [place] Reason for referral (narrative)No reason for referral [facility] Work Phone: Reason for visit Narrative* Other Medical (Routine) - Closed Specialty Diagnoses / Procedures Referred By Mallorie t Referred To Contact Neurology Diagnoses Neuralgia and neuritis, unspecified Procedures NV NEEDLE EMG EA EXTREMTY W/PARASPINL AREA COMPLETE NV NERVE CONDUCTION STUDIES 9-10 STUDIES Ofelia Arceo PA-C [address] [place] [address] Phone: tel: fax: Cecil Fields MD [address] [place] [address] Phone: tel: fax: Referral ID Status Reason Start Date Expiration Date V isits Requested Visits Authorized [id number] Closed Perform Procedure 03/27/2024 09/23/2024 1 1 [...] Back & Knee Pain-HIGH RISK March 8:45am 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 f/u Asthma COPD April 15, 2 025 3:12pm Reason for Visit Admit Date Bilateral knee pain January 24, 2024 2 :05pm Primary osteoarthritis of both knees Jan min2023 2:05pm COPD exacerbation February 08, 2024 1 [...] Back & Knee Pain-HIGH RISK March 8:45am 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 f/u Asthma COPD April 15 2 025 3:12pm Unknown April 22, 2024 [...] for lung cancer April 15, 2024 3:12pm half-way (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 of inhaled stero ids April 15, 2024 3:12pm Moderate persistent asthma, uncomplicate d April 15, 2024 3:12pm Chief Complaint Admit Date J44.1 March 04, 2024 2:34pm J44.1 March 04, 2024 6:43pm Ref: Dr. 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 f/u Asthma COPD April 15, [...] for lung cancer April 15, 2024 3:12pm half-way (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 of inhaled stero ids April 15, 2024 3:12pm Moderate persistent asthma, uncomplicate d April 15, 2024 3:12pm Lumbar radiculopathy, chronic June 8:28am Chief Complaint Admit Date check up September 27, 2024 2:23 pm Amb Documentation October 02, 2024 11:1 6am Unknown November 03, 2024 5:19 am Reason for Visit Admit Date Gastroenteritis September 27, 2024 2:23 pm Lumbar radiculopathy, chronic September 27, 2024 2:23pm Additional Source Comments Care Team (unrecognized sect [...] 13, 2023 End: October 13, 2023 Brittanie Rohrbacher , MANAGER OF SELECTION AND ASSESSMENT STRATEGIC CONSULTANT-C Attending Provider Act onesimo Start: October 13, [...] Provider Active S tart: January 24, 2024 Tectonophysicist Relationship Specialty Start Date End Date Cornelius Garrison MD [address] [place] [address] PCP - General Family Medicine 03/27/24 Ofelia Arceo MD [address] [address] Referring Physician Internal Medicine 03/27/24 Tectonophysicist Relationship Specialty Start Date End Date Cornelius Garrison MD [address] [place] [address] PCP - General Family Medicine 03/27/24 Ofelia Arceo MD [address] [address] Referring Physician Internal Medicine 03/27/24 Tectonophysicist Relationship Specialty Start Date End Date Cornelius Garrison MD [address] [place] [address] PCP - General Family Medicine 03/27/24 Ofelia Arceo MD [address] [facility] [address] [place] [address] Referring Physician Internal Medicine 03/27/24 Geoff Walker, DO [address] [place] [address] Otolaryngology 06/05/24 Tectonophysicist Relationship Specialty Start Date End Date Cornelius Garrison MD [address] [facility] [place] [address] PCP - General Family Medicine 03/27/24 Ofelia Arceo MD [address] [place] [address] Referring Physician Internal Medicine 03/27/24 Geoff Walker, DO [address] [place] [address] Otolaryngology 06/05/24 Team Status: Inactive Member Role Status Dates Cornelius Garrison MD Primary Care Provider Active Start: September 27, 2024 End: September 27, 2024 Cornelius Garrison MD Attending Provider Active art: September 27, 2024 End: September 27, 2024 Team Status: Active Member Role Status Dates Cornelius Garrison MD Primary Care Provider Active Start: October 02, 2024 Vera Hdez CMA Attending Provider Active Start: October 02, 2024 Team Status: Active Member Role Status Dates Cornelius Garrison MD Primary Care Provider Active Start: November 03, 2024 Carlin Oleary MD Attending Provider Active art: November 03, 2024 Team Status: Inactive Member Role Status Dates Cornelius Garrison MD Attending Provider Active art: November 03, 2024 End: November 03, 2024 INFORMATION SOURCE (unrecogn ized section and content) DATE CREATED AUTHOR 04/01/2022 [facility] DATE CREATED AUTHOR AUTHOR'S ORGANIZ ATION 06/07/2024 [facility] DATE CREATED AUTHOR AUTHOR'S ORGANIZ ATION 08/01/2024 [facility] DATE CREATED AUTHOR AUTHOR'S ORGANIZ ATION 10/02/2024 [facility] DATE CREATED AUTHOR AUTHOR'S ORGANIZ ATION 11/06/2024 [facility] DATE CREATED AUTHOR AUTHOR'S ORGANIZ ATION 11/09/2024 [facility] Goals (unrecognized section and content) Goals [...] BE BASED ON THE PRIMARY CLINICAL RECORDS. [facility]. provides no warranty or guarantee of the accuracy or completeness of information in this document.
--- OUTSIDE RECORDS SUMMARY | 2024-11-12 03:31 | XMS_ITS | Clinical Summary ---
Author Organization [facility] tem Address [id number] [address] [place] [address] Care Team Providers Care Clock And Watch Hands Dipper Name Role Phone Celia Blank MD Primary Care Provider [phone] Allergies Active Allergy Reactions Criticality Noted Date [...] EDT - 10/01/2024 11:16 AM EDT Emergency [facility] - Emergency [address] [place] [address] Carmen Alfred, Pancolitis ([facility]) (Primary Dx); Abnormal computed tomography of abdomen [...] CAMPYLOBACTER Detected(A) Not Detected 10/01/2024 3:31 PM [facility] Comment:Detects the followin g: C. jejuni, C. coli, C. upsaliensis. PLESIOMONAS Not Detected Not Detected 10/[facility]24 [facility] SALMONELLA Not Detected Not Detected 10/01/2024 3:31 PM [facility] VIBRIO Not Detected Not Detected 10/01/2024 3:[facility] VIB[facility]O CHOLERAE Not Detected Not Detected 10/01/2024 3:31 PM [facility] Y. ENTEROCOLITICA Not Detected Not Detected 10/01/2024 3:31 PM [facility] AGGREGATIVE E COLI Not Detected Not Detected 10/01/2024 3:31 PM [facility] PATHOGENIC E COLI Detected(A) Not Detected 10/01/2024 3:31 PM [facility] Comment:Enteropathogenic Esc herichia coli TOXIGENIC E COLI Not Detected Not Detected 10/01/2024 3:31 PM [facility] SHIGA TOXIN E COLI Not Detected Not Detected 10/01/2024 3:31 PM [facility] SHIGELLA-E COLI Not Detected Not Detected 10/01/2024 3:31 PM [facility] CRYPTOSPORIDIUM Not Detected Not Detected 10/01/2024 3:31 PM [facility] CYCLOSPORA Not Detected Not Detected 10/01/2024 3:31 PM [facility] E HISTOLYTICA Not Detected Not Detected 10/01/2024 3:31 PM [facility] GIARDIA LAMBLIA Not Detected Not Detected 10/01/2024 3:31 PM [facility] ADENOVIRUS Not Detected Not Detected 10/01/2024 3:31 PM [facility] ASTROVIRUS Not Detected Not Detected 10/01/2024 3:31 PM [facility] NOROVIRUS Not Detected Not Detected 10/01/2024 3:31 PM [facility] ROTAVIRUS A Not Detected Not Detected 10/01/2024 3:31 PM [facility] SAPOVIRUS Not Detected Not Detected 10/01/2024 3:31 PM EDT [facility] Stool Feces / Unknown Collection / Unknown 10/01/2024 10:49 AM EDT 10/01/2024 10:52 AM EDT Carmen Raineykhatib DO BODY FLUIDS AND STOOLS ORDER CASSANDRA Final Result Performing Organization Address [facility]/ZIP Co de Phone Number [facility] [address] [place] [address], [place] [phone] * C difficile by PCR (10/01/2024 10:49 AM EDT) Pathologist [facility] TOXIGENIC C DIFF Negative Negative 10/02/19 2:44 PM EDT [facility] 027 NAP1 Presumptive Negative Presumptive Negative 10/01/2024 2:44 PM EDT [facility] Comment:Assay methodology is nucleic acid amplification by real-time PCR for detection of C. difficile toxin gene sequences performed on [employer] System. Stool Feces / Unknown Collection / Unknown 10/01/2024 10:49 AM EDT 10/01/2024 10:52 AM EDT Carmen Alfred DO BODY FLUIDS AND STOOLS ORDER CASSANDRA Final Result Performing Organization Address City/[facility] Co de Phone Number [facility] [address] [place] [address], [place] [phone] * (ABNORMAL) POCT Nursing Urine Macroscopic UA (10/01/2024 9:27 AM EDT) POC Urine Specific [place] <=1.005(A) 1.010, 1.015, 1.020, 1.025 10/01/2024 9:21 AM EDT [facility] POC Urine Leukocyte Esterase Negative Negative 10/01/2024 9:21 AM EDT [facility] POC Urine Nitrite Negative Negative 10/01/2024 9:21 AM EDT [facility] POC Urine pH 6.0 5.0, 6.0, 6.5, 7.0, 7.5, 8.0, 8.5, 5.5 10/01/2024 9:21 AM EDT [facility] POC Urine Protein Trace(A) Negative 10/01/2024 9:21 AM EDT [facility] POC Urine Glucose Negative Negative 10/01/2024 9:21 AM EDT [facility] POC Urine Ketones Negative Negative 10/01/2024 9:21 AM EDT [facility] POC Urine Urobilinogen 0.2 E.U./dL 10/01/2024 9:21 AM EDT [facility] POC Urine Bilirubin Negative Negative 10/01/2024 9:21 AM EDT [facility] POC Urine Blood/HGB Moderate(A) Negative 10/01/2024 9:21 AM EDT [facility] Urine 10/01/2024 9:27 AM EDT 10/01/2024 9:21 AM EDT us Carmen Alfred DO POINT OF CARE TEST ORDERABLE S Final Result Performing Organization Address City/[facility] Co de Phone Number [address] [place] [address], [place] * Extra Urine Rociada (10/01/2024 9:16 AM EDT) Extra Tube Auto Resulted 10/01/2024 11:01 AM EDT [facility] Urine Urine specimen collection, clean catch / Unknown 10/01/2024 9:16 AM EDT 10/01/2024 9:41 AM EDT us Carmen Alfred DO URINE ORDERABLES Final Resul t Performing Organization Address City/[facility] Co de Phone Number [address] [place] [address], [place] * Extra Urine Culture (10/01/2024 9:16 AM EDT) Extra Tube Auto Resulted 10/01/2024 11:01 AM EDT [facility] Urine Urine specimen collection, clean catch / Unknown 10/01/2024 9:16 AM EDT 10/01/2024 9:41 AM EDT us Miladjarod Alfred DO URINE ORDERABLES Final Resul t Performing Organization Address [facility] de Phone Number [address] [place] [address], [place] * Extra Urine (10/01/2024 9:16 AM EDT) Extra Tube Auto Resulted 10/01/2024 11:01 AM EDT [facility] Urine Urine / Unknown 10/01/2024 9 :16 AM EDT 10/01/2024 9:41 AM EDT us Carmen Alfred DO URINE ORDERABLES Final Resul t Performing Organization Address [facility] de Phone Number [address] [place] [address], [place] * CT abdomen and pelvis with [...] Tube Auto Resulted 10/01/2024 9:01 AM EDT [facility] Blood Venous blood / Unknown 10/01/2024 7:38 AM EDT 10/01/2024 7:42 AM EDT us Carmen Alfred DO LAB BLOOD ORDERABLES Final R esult [facility] [address] [facility] [place] [address], [place] * (ABNORMAL) CBC auto differential (10/01/2024 7:38 AM EDT) WBC 9.3 4 - 11 x10E9/L 10/01/2024 7:50 AM EDT [facility] RBC Count 4.74 3.8 - 5.2 X10E12/L 10/01/2024 7:50 AM EDT [facility] Hemoglobin 14.1 11.7 - 15.5 g/dL 10/01/2024 7:50 AM EDT [facility] Hematocrit 41.7 35 - 47 % 10/01/2024 7:50 AM EDT [facility] MCV 88 80 - 100 fL 10/01/2024 7:50 AM EDT [facility] MCH 29.8 27 - 34 pg 10/01/2024 7:50 AM EDT [facility] MCHC 33.9 32 - 36 g/dL 10/01/2024 7:50 AM EDT [facility] RDW 13.2 11.5 - 15 % 10/01/2024 7:50 AM EDT [facility] Platelet Count 376 150 - 450 X10E9/L 10/01/2024 7:50 AM EDT [facility] MPV 7.7 7 - 12 fL 10/01/2024 7:50 AM EDT [facility] Neutrophils % 65.7 % 10/01/2024 7:50 AM EDT [facility] Lymphocytes % 18.1 % 10/01/2024 7:50 AM EDT [facility] Monocytes % 14.3 % 10/01/2024 7:50 AM EDT [facility] Eosinophils % 1.2 % 10/01/2024 7:50 AM EDT [facility] Basophils % 0.7 % 10/01/2024 7:50 AM EDT [facility] Neutrophils Absolute (A) 6.1 1.5 - 6.6 10*3/uL 10/01/2024 7:50 AM EDT [facility] Lymphocytes Absolute 1.7 1.0 - 3.5 10*3/uL 10/01/2024 7:50 AM EDT [facility] Monocytes Absolute 1.3(H) 0.0 - 0.9 10*3/uL 10/01/2024 7:50 AM EDT [facility] Eosinophils Absolute 0.1 0.0 - 0.4 10*3/uL 10/01/2024 7:50 AM EDT [facility] Basophils Absolute 0.1 0.0 - 0.2 10*3/uL 10/01/2024 7:50 AM EDT [facility] Differential Type AUTOMATED DIFFERENTIAL 10/01/2024 7:50 AM EDT [facility] Blood Venous blood / Unknown Venipuncture / Unknown 10/01/2024 7:38 AM EDT 10/01/2024 7:41 AM EDT us Carmen Alfred DO LAB BLOOD ORDERABLES Final R esult [address] [place] [address], [place] * Magnesium (10/01/2024 7:38 AM EDT) MAGNESIUM 1.9 1.8 - 2.6 mg/dL 10/01/2024 8:02 AM EDT [facility] Blood Venous blood / Unknown Venipuncture / Unknown 10/01/2024 7:38 AM EDT 10/01/2024 7:41 AM EDT us Carmen Alfred DO LAB BLOOD ORDERABLES Final R esult Performing Organization Address City/[facility]/ZIP Co de Phone Number [address] [place] [address], [place] * Lipase (10/01/2024 7:38 AM EDT) LIPASE 32 17 - 40 U/L 10/01/2024 8:00 AM EDT [facility] Blood Venous blood / Unknown Venipuncture / Unknown 10/01/2024 7:38 AM EDT 10/01/2024 7:41 AM EDT us Carmen Alfred DO LAB BLOOD ORDERABLES Final R esult Performing Organization Address City/[facility]/ZIP Co de Phone Number [address] [place] [address], [place] * (ABNORMAL) Comprehensive metabolic panel (10/01/2024 7:38 AM EDT) SODIUM 137 134 - 146 mmol/L 10/01/2024 8:02 AM EDT [facility] POTASSIUM 3.4(L) 3.5 - 5.0 mmol/L 10/01/2024 8:02 AM EDT [facility] CHLORIDE 102 98 - 109 mmol/L 10/01/2024 8:02 AM EDT [facility] CARBON DIOXIDE 25 22 - 32 mmol/L 10/01/2024 8:02 AM EDT [facility] ANION GAP 10 5 - 15 mmol/L 10/01/2024 8:02 AM EDT [facility] BLOOD UREA NITROGEN 20 5 - 27 mg/dL 10/01/2024 8:02 AM EDT [facility] CREATININE 0.89 0.40 - 1.00 mg/dL 10/01/2024 8:02 AM EDT [facility] Comment:METHOD TRACEABLE TO IDMS STANDARD GLUCOSE 111(H) 65 - 99 mg/dL 10/01/2024 8:02 AM EDT [facility] CALCIUM 8.9 8.5 - 10.5 mg/dL 10/01/2024 8:02 AM EDT [facility] TOTAL PROTEIN 6.6 6.0 - 8.0 g/dL 10/01/2024 8:02 AM EDT [facility] ALBUMIN 3.5 3.2 - 5.3 g/dL 10/01/2024 8:02 AM EDT [facility] ALKALINE PHOSPHATASE 69 39 - 130 U/L 10/01/2024 8:02 AM EDT [facility] AST 14 <=41 U/L 10/01/2024 8:02 AM EDT [facility] ALT 20 <=31 U/L 10/01/2024 8:02 AM EDT [facility] BILIRUBIN,TOTAL 0.4 0.3 - 1.2 mg/dL 10/01/2024 8:02 AM EDT [facility] EGFR Non-Race Dependent 72 >=60 ml/min/1.7 3sq.m 10/01/2024 8:02 AM EDT [facility] Comment: eGFR not reported due to non-numeric value for Creatinine. Reported eGFR is based on the CKD-EPI 2020 equation that does not use a race coefficient. Blood Venous blood / Unknown Venipuncture / Unknown 10/01/2024 7:38 AM EDT 10/01/2024 7:41 AM EDT us Carmen Alfred DO LAB BLOOD ORDERABLES Final R esult [facility] [address] [place] [address], from Last 3 Months Insurance MEDICARE COMMERCIAL Care Teams Clock And Watch Hands Dipper Relationship Specialty Start Date End Date Celia Blank MD [address] [place] [id number] PCP - General Family Medicine 10/01/24
--- OUTSIDE RECORDS SUMMARY | 2024-11-12 03:31 | XMS_ITS | Clinical Summary ---
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 06/05/2024 06/05/2024 [...] [facility] [address] [place] [id number] Geoff Walker, [address] [place] [address] Health Maintenance Due Date Last Done Comments CT Colonography 1959 FIT-DNA 1959 FIT 1959 FOBT 1959 Sigmoidoscopy 1959 Pap Smear 01/22/1980 Cervical Cancer Screening 1989 HPV/Cotest 1989 Mammogram 1999 Pneumococcal Vaccine: 65+ Years (1 of 1 - PCV) 009 Influenza Vaccine (#1) 2024 Colonoscopy 01/13/2032 01/12/2022 Colorectal Cancer Screening 01/13/2032 Insurance MEDICARE GENERIC OTHER Care Teams Diesel Inspector Relationship Specialty Start Date End Date Celia Blank MD PCP - General Family Medicine 03/27/24 Ofelia Arceo MD [address] [place] [address] Referring Physician Internal Medicine 03/27/24 Geoff Walker DO [address] [place] [address] Otolaryngology 06/05/24
[2024-11-12 03:46] LABS: Glucose Urine UA NEGATIVE (NEGATIVE)
[2024-11-12 03:52] LABS: Cast Seen? NONE SEEN #/LPF (NONE SEEN); Crystals Seen? None Seen #/HPF (None Seen); Urine Culture Indicated NO
--- NOTE | 2024-11-12 04:11 | ED.GENADUL1 ---
HPI HPI - General Adult General Chief complaint: Urogenital-Female Stated complaint: HAD UTI A WEEK AGO NOW CANT PEE Time Seen by Provider: 11/12/24 03:28 Source: patient Mode of arrival: walk-in Limitations: no limitations History of Present Illness HPI narrative: 64-year-old female presents because she is having trouble urinating. She states she cannot urinate. She has been on Macrobid for 9 days for UTI and she has been urinating some blood. No fever or injury. Related Data Home Medications ?Medication ?Instructions ?Recorded ?Confirmed albuterol sulfate 2.5 mg/3 mL 2.5 mg inhalation Q4H PRN 01/19/24 11/03/24 (0.083 %) solution for nebulization shortness of breath or wheezing albuterol sulfate 90 mcg/actuation 2 puff inhalation Q4H 01/19/24 11/03/24 aerosol inhaler hydrocodone 5 mg-acetaminophen 325 1 tab PO Q8H 01/19/24 11/03/24 mg tablet tizanidine 4 mg tablet 4 mg PO Q8H PRN muscle spasticity 01/19/24 11/03/24 omeprazole 20 mg capsule,delayed 20 mg PO DAILY 02/01/24 11/03/24 release bupropion HCl 150 mg 24 hr tablet, 150 mg PO DAILY 04/22/24 07/22/24 extended release fluticasone fur. 200 mcg-umeclid 1 inh inhalation DAILY 04/22/24 11/03/24 62.5 mcg-vilant 25 mcg inhalat.powder (Trelegy Ellipta) bupropion HCl 300 mg 24 hr tablet, 300 mg PO DAILY 09/30/24 11/03/24 extended release Allergies Allergy/AdvReac Type Severity Reaction Status Date / Time Sulfa (Sulfonamide Allergy Unknown Unknown Verified 11/12/24 03:34 Antibiotics) levofloxacin (From Levaquin) Allergy Rash Verified 11/12/24 03:34 acetaminophen (From Percocet) AdvReac Intermediate Vomiting Verified 11/12/24 03:34 oxycodone (From Percocet) AdvReac Intermediate Vomiting Verified 11/12/24 03:34 Opioid HPI Opioid Management Most Recent Opioid Data: Last Pain Scale 6 07/22/24, 08:20 Review of Systems ROS Narrative A ten point review of systems is negative except as noted above. 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 (ICD-10) Asthma ?J45.909 - Unspecified asthma, uncomplicated (ICD-10) Surgical History H/O fine needle aspiration with imaging guidance ?Z98.890 - Other specified postprocedural states (ICD-10) Status post discectomy ?Z98.890 - Other specified postprocedural states (ICD-10) History of bunionectomy ?Z98.890 - Other specified postprocedural states (ICD-10) H/O bilateral oophorectomy ?Z90.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, bilateral (ICD-10) History of tonsillectomy ?Z90.89 - Acquired absence of other organs (ICD-10) Social History Little interest or pleasure in doing things: not at all Feeling down, depressed, or hopeless: not at all Exam Narrative Exam Narrative: Nurses note and vital signs reviewed and patient is not hypoxic. General: The patient appears well and in no apparent distress. Patient is resting comfortably on cart. Skin: Warm, dry, no pallor noted. There is no rash noted. Head: Normocephalic, atraumatic Eye: Normal conjunctiva, no drainage Ears, Nose, Mouth, and Throat: oral mucosa is moist. Nares patent. Cardiovascular: Regular Rate and Rhythm Respiratory: Patient is in no distress, no accessory muscle use, lungs are clear to auscultation, no wheezing, rales or rhonchi Back: non-tender, no CVA tenderness bilaterally to percussion. GI: Soft and nontender Musculoskeletal: The patient has no evidence of calf tenderness, no pitting edema, symmetrical pulses noted bilaterally Neurological: A&O normal speech Psychiatric: Cooperative Constitutional Vital Signs, click to edit/add: Last Vital Signs Temp 98.2 F 11/12/24 03:34 Pulse 63 11/12/24 03:34 Resp 18 11/12/24 03:34 BP 150/83 H 11/12/24 05:00 Pulse Ox 97 11/12/24 05:00 O2 Del Method Room Air 11/12/24 03:34 Course Vital Signs Vital signs: Vital Signs Blood Pressure 182/101 H 11/12/24 03:30 Pulse Oximetry 98 11/12/24 03:30 Temperature 98.2 F 11/12/24 03:34 Pulse Rate 63 11/12/24 03:34 Respiratory Rate 18 11/12/24 03:34 Blood Pressure 150/83 H 11/12/24 05:00 Pulse Oximetry 97 11/12/24 05:00 Oxygen Delivery Method Room Air 11/12/24 03:34 Medical Decision Making MDM Narrative Medical decision making narrative: The patient was found to have acute urinary retention and a Lau catheter was inserted. Hematuria was noted. Culture was reviewed from her recent visit that resulted in her being placed on Macrobid and mixed elías was present. CT scan is ordered and the result is pending and the patient is signed out to Dr. Glass at change of shift. Differential Diagnosis Differential Diagnosis: Urinary retention, UTI, kidney stone, cystitis Lab Data Lab results reviewed: Yes I reviewed the patient's lab results Labs: Lab Results 11/12/24 11/12/24 Range/Units 03:41 04:30 WBC 7.7 (4.0-11.0) 10^3/uL RBC 3.90 L (4.20-5.40) 10^6/uL Hgb 11.4 L (12.0-16.0) g/dL Hct 35.5 L (36.0-48.0) % MCV 91.0 (81.0-99.0) fL MCH 29.2 (26.7-34.0) pg MCHC 32.1 (29.9-35.2) g/dL RDW 13.7 (11.0-15.0) % Plt Count 301 (150-450) 10^3/uL MPV 9.5 (9.5-13.5) fL Neut % (Auto) 54.6 (43.0-75.0) % Lymph % (Auto) 32.9 (20.5-60.0) % [place] % (Auto) 8.1 (1.7-12.0) % Eos % (Auto) 3.3 (0.9-7.0) % Baso % (Auto) 0.8 (0.2-2.0) % Neut # (Auto) 4.2 (1.4-6.5) 10^3/uL Lymph # (Auto) 2.5 (1.2-3.8) 10^3/uL [place] # (Auto) 0.6 (0.3-0.8) 10^3/uL Eos # (Auto) 0.3 (0.0-0.7) 10^3/uL Baso # (Auto) 0.1 (0.0-0.1) 10^3/uL Abs Immat Gran (auto) 0.02 (0.00-0.03) 10^3/uL Imm/Tot Granulo (auto) 0.3 (0.0-0.5) % Sodium 141 (136-145) mmol/L Potassium 3.5 (3.5-5.1) mmol/L Chloride 105 (98-107) mmol/L Carbon Dioxide 29.6 (21.0-32.0) mmol/L Anion Gap 9.9 BUN 20.0 H (7.0-18.0) mg/dL Creatinine 0.82 (0.55-1.02) mg/dL Est GFR ( Amer) >60 (>=60 mL/min/1.73m^2) Est GFR (Non-Af Amer) >60 (>=60 mL/min/1.73m^2) BUN/Creatinine Ratio 24.4 Glucose 107 H (74-106) mg/dL Calcium 9.9 (8.5-10.1) mg/dL Urine Color Dk. red (YELLOW) Urine Clarity Clear (CLEAR) Urine pH 7.0 (5.0-9.0) Ur Specific [place] 1.020 (1.005-1.025) Urine Protein >=300 A (NEG/TRACE) mg/dL Urine Glucose (UA) Negative (NEGATIVE) mg/dL Urine Ketones Trace A (NEGATIVE) mg/dL Urine Occult Blood Large A (NEGATIVE) Urine Nitrite Positive A (NEGATIVE) Urine Bilirubin Negative (NEGATIVE) Urine Urobilinogen 1.0 (0.2-1.0) EU/dL Ur Leukocyte Esterase Trace A (NEGATIVE) Urine RBC 50-75 A (0-2) #/HPF Urine WBC 0-2 A (NONE SEEN) #/HPF Ur Squamous Epith Cells None seen (NONE/RARE) #/LPF Urine Crystals None seen (None Seen) #/HPF Urine Bacteria None seen (NONE SEEN) #/HPF Urine Casts None seen (NONE SEEN) #/LPF Urine Mucus None seen (NONE SEEN) Ur Culture Indicated? No Discharge Plan Discharge Patient Disposition: Still a Patient
--- NOTE | 2024-11-12 04:17 | CT_ITS ---
The [address] [address] Patient Name: KARLENE JIMENEZ MRN: [id number] date: 1960 Sex: F Assigned Patient Location: ER Current Patient Location: [facility] Accession/Order Number: [id number] Exam Date: 11/12/2024 08:30 Report Date: 11/12/2024 08:38 At the request of: RAH SILVER MD Procedure: CT abdomen pelvis wo con CT abdomen pelvis wo con 11/12/2024 4:41 AM SIGNS AND SYMPTOMS: Hematuria, difficulty urinating recent UTI, possible bladder mass TECHNIQUE: Multidetector ct axial images of the abdomen and pelvis were obtained without IV contrast. Multiplanar reformats were performed and reviewed to further define anatomy and possible pathology. CT was performed with one or more of the following dose reduction techniques: Automated exposure control, adjustment of the mA and/or kV according to patient size, or use of iterative reconstruction technique. COMPARISON: None. FINDINGS: Lower Chest: Within normal limits. ABDOMEN: Liver: Within normal limits. Bile Ducts: Normal caliber. Gallbladder: No calcified gallstones. Normal caliber wall. Pancreas: Within normal limits. Spleen: Within normal limits. Adrenals: Within normal limits. 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 There is mild prominence of the renal collecting systems. Pelvis: Reproductive Organs: No pelvic masses. Ureters: Within normal limits. Bladder: A Lau catheter is present. There are areas of nodular hyperattenuation along the posterior wall of bladder measuring 6.5 x 2.7 cm in greatest dimension. While this may represents a blood clot given the history of hematuria, an underlying bladder mass should also be considered. Bowel: Uncomplicated colonic diverticula are present. The appendix has been previously removed Mesenteric Lymph Nodes: No enlarged mesenteric lymph nodes. Peritoneum: No ascites or free air, no fluid collection. Vessels: Atherosclerotic changes are noted in the abdominal aorta and its branches. Retroperitoneum: Within normal limits. Abdominal Wall: Within normal limits. Bones: Degenerative changes are noted in the thoracolumbar spine. Degenerative changes are noted in the hips and sacroiliac joints. CT/CT abdomen pelvis wo con IMPRESSION: There are areas of nodular hyperattenuation along the posterior wall of bladder measuring 6.5 x 2.7 cm in greatest dimension. While this may represents a blood clot given the history of hematuria, an underlying bladder mass should also be considered. A Lau catheter is present. There is mild prominence of the renal collecting systems. No obstructing renal or ureteral stone. No bowel obstruction. Uncomplicated colonic diverticula are noted. Impression dictated by: Sunday Graham M.D. 11/12/2024 8:38 AM Dictation Location: [place] [address] Electronically authenticated by: [id number] Y Date: 11/12/2024 08:38
[2024-11-12 04:39] LABS: Hematocrit 35.5 % (36.0-48.0); Hemoglobin 11.4 g/dL (12.0-16.0); Immature Granulocytes Abs Auto 0.02 10^3/uL (0.00-0.03); Immature Granulocytes Pct Auto 0.3 % (0.0-0.5); Lymphocytes Absolute Auto 2.5 10^3/uL (1.2-3.8); Mean Corpuscular HGB Conc 32.1 g/dL (29.9-35.2); Mean Corpuscular Hemoglobin 29.2 pg (26.7-34.0); Mean Corpuscular Volume 91.0 fL (81.0-99.0); Platelet Count 301 10^3/uL (150-450); Red Blood Count 3.90 10^6/uL (4.20-5.40); White Blood Count 7.7 10^3/uL (4.0-11.0)
[2024-11-12 04:49] LABS: Anion Gap 9.9; Blood Urea Nitrogen 20.0 mg/dL (7.0-18.0); Calcium 9.9 mg/dL (8.5-10.1); Carbon Dioxide 29.6 mmol/L (21.0-32.0); Chloride 105 mmol/L (98-107); Estimated GFR (African America >60 (>=60 mL/min/1.73m^2); Estimated GFR (Non-African Ame >60 (>=60 mL/min/1.73m^2); Glucose 107 mg/dL (74-106); Potassium 3.5 mmol/L (3.5-5.1); Sodium 141 mmol/L (136-145)
--- NOTE | 2024-11-12 04:51 | PC.NURSE ---
this patient just back from ct dept, this patient voices she feels much better since the Lau catheter placement. this patient is aware that now we are waiting on ct and blood draw test results to come back this patient voices no concerns, needs and shows no signs of distress
[2024-11-12] MEDS: KETOROLAC TROMETHAMINE 30 MG/ML VIAL 15 MG IVP (08:57)
[2024-11-12] MEDS: SODIUM CHLORIDE IRRIG SOLUTION 3,000 ML 3000 ML IRR ×14 (10:11→23:35)
--- NOTE | 2024-11-12 12:49 | PM.HP ---
HPI H&P: HPI History of Present Illness Chief complaint: HAD UTI A WEEK AGO NOW CANT PEE URINE RETENTION Narrative: This is a 64-year-old woman who came to the [facility] emergency room today with acute retention of urine in her bladder due to blood clots from gross hematuria. In the ER today three-way Lau catheter was inserted. She got continuous bladder irrigation. The ER made contact with urology and the plan is for the patient to go to the operating room for cystoscopy tomorrow. The patient explains that about 6 weeks ago she had a CT scan done at [place] and it showed a nodule in her bladder. At that time she was suffering from a gastrointestinal infection but she says that she did not require hospitalization. She says that she had temperatures as high as 103 ?F at home and she was told that she had E. coli and what sounds like Campylobacter and she was treated with erythromycin. In the ER today the CT scan read areas of nodular hyper attenuation along the posterior wall of the bladder measuring 6.5 x 2.7 cm in greatest dimension. While this may represent a blood clot given the history of hematuria and underlying bladder mass should also be considered. The patient says that she began having hematuria at least a couple weeks ago but it had never blocked the bladder outlet until early this morning. She says that at home she was sometimes passing blood clots that were as large as a quarter. She was consistently filling the toilet with copious amounts of red blood. She came to the emergency room about a week ago with some crampy abdominal pain and was diagnosed with a urinary tract infection and she has been taking Macrobid for about a week. However a urine sample at this hospital on 11/03/2024 which was labeled as urine, clean-catch has not had any bacterial growth. It did have greater than 100,000 colony-forming units of mixed bacterial skin contaminants. And I suspect that she was having so much hematuria that may not have been possible to catch the bacterial infection. After bladder irrigation was started the patient says that she has felt better. She has had less lower abdominal pain. No acute bladder spasms. She explains that her biggest medical problem is long-term low back pain due to lumbar spinal stenosis. She had surgery for that in the past. She says that she finally found a surgeon who will do surgery on this and she is scheduled to get this done in [place] sometime in January. She has completed all sorts of interventional pain management injections and procedures. She also has a history of an oophorectomy, bunionectomy, and a tonsillectomy as well as a fine-needle aspiration of her thyroid gland. Her past medical history includes asthma, she did have stomach ulcers when she took diclofenac. She has been getting long-term headaches so she has been using 4 Excedrin tablets (she believes this is Excedrin Migraine, but she admits that she takes different products) and at a low she will take 2 tablets a day ended a high she will take 6 tablets a day so at 4 tablets/day she is getting 1000 mg of ASPIRIN per day. I discussed with the patient that giving the acute bleeding in the bladder and the need for spinal surgery in the near future I recommend that she stop all aspirin products completely. She did express understanding. She says that she has tried ibuprofen and naproxen and they just do not help with the headaches. Long ago she did see urology with Dr. Tucker in [place]. That was microscopic hematuria per her report. She thinks it was from the cauda equina syndrome that was going on at that time. For her social history she does smoke 1 pack/day. She wants a nicotine patch as needed. She does not drink any alcohol. 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 She is hoping that nothing will happen that will delay her getting her lumbar spine surgery in January. Opioid HPI Opioid Management Most Recent Pain and Opioid Data: Last Pain Scale 6 Today, 13:01 Last Pain Assessment Today, 12:00 Last MAR Pain Assessment Today, 13:01 Last ORT Total Score 1 Today, 11:44 Last ORT Risk Category Low Risk Today, 11:44 Review of Systems ROS Narrative A 10 point review of systems is reviewed and is negative except as mentioned elsewhere in this documentation. 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 (ICD-10) Surgical History History of detached retina repair ?Z98.890 - Other specified postprocedural states (ICD-10) ?Z86.69 - Personal history of other diseases of the nervous system and sense organs (ICD-10) H/O fine needle aspiration with imaging guidance ?Z98.890 - Other specified postprocedural states (ICD-10) Status post discectomy ?Z98.890 - Other specified postprocedural states (ICD-10) History of bunionectomy ?Z98.890 - Other specified postprocedural states (ICD-10) H/O bilateral oophorectomy ?Z90.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, bilateral (ICD-10) History of tonsillectomy ?Z90.89 - Acquired absence of other organs (ICD-10) Family History (Updated 11/12/24 @ 13:02 by DEVIKA CHU) Father Cancer Mother Family history of diabetes mellitus Family history of hypertension Brother Family history of hypertension Brother Family history of hypertension Social History (Updated 11/12/24 @ 13:03 by DEVIKA CHU) Smoking status: Current every day smoker Nicotine containing products detail: 1 pack per day smoker. NO ETOH at all. Highest level of school completed/degree received: some college, no degree Little interest or pleasure in doing things: not at all Feeling down, depressed, or hopeless: not at all Meds Home Medications and Allergies Home Medications ?Medication ?Instructions ?Recorded ?Confirmed ?Type albuterol sulfate 2.5 mg/3 mL 2.5 mg inhalation Q6H PRN 01/19/24 11/12/24 History (0.083 %) solution for nebulization shortness of breath or wheezing albuterol sulfate 90 mcg/actuation 2 puff inhalation Q4H PRN 01/19/24 11/12/24 History aerosol inhaler shortness of breath or wheezing hydrocodone 5 mg-acetaminophen 325 1 tab PO Q8H 10/11/24 08/05/25 History mg tablet tizanidine 4 mg tablet 4 mg PO Q8H PRN muscle spasticity 01/19/24 11/12/24 History omeprazole 20 mg capsule,delayed 20 mg PO DAILY 02/01/24 11/12/24 History release fluticasone fur. 200 mcg-umeclid 1 inh inhalation DAILY 04/22/24 11/12/24 History 62.5 mcg-vilant 25 mcg inhalat.powder (Trelegy Ellipta) bupropion HCl 300 mg 24 hr tablet, 300 mg PO DAILY 09/30/24 11/12/24 History extended release nitrofurantoin 100 mg PO Q12H 11/12/24 11/12/24 History monohydrate/macrocrystals 100 mg capsule varenicline tartrate 0.5 mg (11)-1 1 ea PO BID 11/12/24 11/12/24 History mg (42) tablets in a dose pack Allergies Allergy/AdvReac Type Severity Reaction Status Date / Time Sulfa (Sulfonamide Allergy Unknown Unknown Verified 11/12/24 03:34 Antibiotics) levofloxacin (From Levaquin) Allergy Rash Verified 11/12/24 03:34 acetaminophen (From Percocet) AdvReac Intermediate Vomiting Verified 11/12/24 03:34 oxycodone (From Percocet) AdvReac Intermediate Vomiting Verified 11/12/24 03:34 Exam Narrative Exam Narrative: General: Lying flat on the bed in room 220. Awake. Alert. Very good medical resident. : Lau catheter is in place. Currently the three-way bladder irrigation is running at a brisk rate. The urine is a very light pink, such as raspberry lemonade. I do not see any clots. I do not see any fibrin or any other debris. Eyes: EOMI. PERRLA. Nose: External Notes structures are normal. Mouth: Dentition is good. Oropharynx is Mallampati grade 2. Tongue is midline. Neck: No thyromegaly. No lymph nodes that I can appreciate. Pulmonary: Clear to auscultation throughout. No wheezing. No rhonchi. No crackles. Cardiac: Regular rate and rhythm. No murmurs or rubs to auscultation. GI: Abdomen soft, nontender, slightly hypoactive bowel sounds, as she is just diffusely tender over the bladder but not in a focal spot. Lower extremities: No edema in the ankles. No swelling or knots or cords in the calves bilaterally. Constitutional Vital Signs, click to edit/add: Last Vital Signs Temp 98.3 F 11/12/24 11:59 Pulse 72 11/12/24 11:59 Resp 18 11/12/24 11:59 BP 139/89 11/12/24 11:59 Pulse Ox 94 L 11/12/24 11:59 O2 Del Method Room Air 11/12/24 11:59 Results Labs Labs: Short CBC 11/12/24 Range/Units 04:30 WBC 7.7 (4.0-11.0) 10^3/uL Hgb 11.4 L (12.0-16.0) g/dL Hct 35.5 L (36.0-48.0) % Plt Count 301 (150-450) 10^3/uL BMP 11/12/24 04:30 Sodium 141 Potassium 3.5 Chloride 105 Carbon Dioxide 29.6 BUN 20.0 H Creatinine 0.82 Glucose 107 H Calcium 9.9 Urine 11/12/24 Range/Units 03:41 Urine Color Dk. red (YELLOW) Urine Clarity Clear (CLEAR) Urine pH 7.0 (5.0-9.0) Ur Specific [place] 1.020 (1.005-1.025) Urine Protein >=300 A (NEG/TRACE) mg/dL Urine Glucose (UA) Negative (NEGATIVE) mg/dL Assessment and Plan Assessment and Plan (1) Gross hematuria: (2) Acute urinary retention: (3) Asthma: Qualifiers: Asthma severity: mild Asthma persistence: intermittent Asthma complication type: unspecified Qualified Code(s): J45.20 - Mild intermittent asthma, uncomplicated (4) GERD (gastroesophageal reflux disease): Qualifiers: Esophagitis presence: without esophagitis Qualified Code(s): K21.9 - Gastro-esophageal reflux disease without esophagitis (5) Persistent headaches: (6) Aspirin long-term use: Plan Assessment: Gross hematuria. Bladder abnormality seen on CT scan. Possible bacterial urinary tract infection. Use of between 500 mg and 1500 mg of aspirin daily at home in the form of Excedrin Migraine. GERD, with history of peptic ulcer disease. Asthma which is clinically stable and not exacerbated at this time. Severe low back pain with lumbar spine surgery planned in family in January. Plan: Hospital admission, inpatient status. Continue three-way bladder irrigation. This can be gradually titrated down as long as the hematuria is clearing. The emergency room did make contact with urology. N.p.o. after midnight for urologic procedure in the morning. BEN mejia for DVT prophylaxis. Continue the [place] that the patient takes at home for low back pain. Increase proton pump DepoDur up to 40 mg and do this IV twice daily here in the hospital. Check mag easy and with morning labs. Perhaps supplementing magnesium will decrease her headaches. I counseled the patient that she should stop taking Excedrin and any aspirin products if she is considering lumbar bar spine surgery. Recheck labs in the morning. Urinary Catheter Management Urinary Catheter Management Urethral: Cath placed during this visit: yes, but has since been removed by the nurse Insertion date: 11/12/24 Insertion time: 04:41 Removal date: 11/12/24 Removal time: 10:45 3-way Urethral: Cath placed during this visit: yes Urethral indwelling: Yes Reason for continuing: acute urinary retention Insertion date: 11/12/24 Insertion time: 04:41
[2024-11-12] MEDS: BUPROPION HCL 150 MG XL TABLET 24H 300 MG PO (13:01)
[2024-11-12] MEDS: HYDROCODONE/ACET 5-325 MG TABLET 1 TAB PO ×2 (13:01→18:22)
[2024-11-12] MEDS: PANTOPRAZOLE SODIUM 40 MG VIAL IV ×2 (13:01→20:20)
[2024-11-12] MEDS: TIZANIDINE HCL 4 MG TABLET PO ×2 (13:01→20:32)
--- NOTE | 2024-11-12 14:58 | SWNOTE1 ---
Important Message from [employer] discussed with patient. Pt verbalized understanding and signed paper. Copy placed in chart and original given to pt.
--- NOTE | 2024-11-12 14:59 | SWNOTE1 ---
I stopped in pt's room to discuss potential d/c needs. Pt is from home where she lives with her . She is very independent, she still works. Pt does not use any DME. She has never had home health services. Pt denies concerns for d/c at this time. SW to follow if needed.
[2024-11-12] MEDS: IPRATROPIUM/ALBUTEROL SULFATE 3 ML AMPUL.NEB IH ×2 (15:05→20:52)
--- NOTE | 2024-11-12 17:39 | PC.NURSE ---
patients catheter clotted off twice now, irrigated first time and got moderate amount of small clots, second irrigation scant amount of small clots. patient tolerated well
[2024-11-12] MEDS: BUDESONIDE 0.5 MG/2 ML AMPULE NEB IH (20:52)
[2024-11-13] VITALS (14 sets, daily range): BP systolic 115–156; BP diastolic 65–93; PULSE 55–77; TEMP 36.3–37.1; O2SAT 94–100
[2024-11-13] MEDS: HYDROCODONE/ACET 5-325 MG TABLET 1 TAB PO ×2 (00:29→11:19)
[2024-11-13] MEDS: SODIUM CHLORIDE IRRIG SOLUTION 3,000 ML 3000 ML IRR ×13 (00:30→08:11)
[2024-11-13] MEDS: TIZANIDINE HCL 4 MG TABLET PO ×2 (04:13→15:14)
[2024-11-13] MEDS: ACETAMINOPHEN 325 MG TABLET 650 MG PO (05:36)
[2024-11-13] MEDS: IPRATROPIUM/ALBUTEROL SULFATE 3 ML AMPUL.NEB IH ×2 (06:01→11:22)
--- NOTE | 2024-11-13 06:12 | PC.NURSE ---
Attempted to slow rate of CBI. Urine turned from light pink to cintron.
[2024-11-13 06:16] LABS: Hematocrit 33.7 % (36.0-48.0); Hemoglobin 11.0 g/dL (12.0-16.0); Immature Granulocytes Abs Auto 0.03 10^3/uL (0.00-0.03); Immature Granulocytes Pct Auto 0.3 % (0.0-0.5); Lymphocytes Absolute Auto 2.9 10^3/uL (1.2-3.8); Mean Corpuscular HGB Conc 32.6 g/dL (29.9-35.2); Mean Corpuscular Hemoglobin 29.5 pg (26.7-34.0); Mean Corpuscular Volume 90.3 fL (81.0-99.0); Platelet Count 295 10^3/uL (150-450); Red Blood Count 3.73 10^6/uL (4.20-5.40); White Blood Count 9.8 10^3/uL (4.0-11.0)
[2024-11-13 06:30] LABS: Anion Gap 10.9; Blood Urea Nitrogen 21.0 mg/dL (7.0-18.0); Calcium 8.9 mg/dL (8.5-10.1); Carbon Dioxide 28.2 mmol/L (21.0-32.0); Chloride 108 mmol/L (98-107); Estimated GFR (African America >60 (>=60 mL/min/1.73m^2); Estimated GFR (Non-African Ame >60 (>=60 mL/min/1.73m^2); Glucose 98 mg/dL (74-106); Potassium 4.1 mmol/L (3.5-5.1); Sodium 143 mmol/L (136-145)
[2024-11-13 06:32] LABS: INR 0.98; Partial Thromboplastin Time 25.6 sec (22.3-36.2); Prothrombin Time 10.4 sec (9.0-11.6)
[2024-11-13 06:39] LABS: Magnesium 2.0 mg/dL (1.8-2.4)
[2024-11-13] MEDS: PANTOPRAZOLE SODIUM 40 MG VIAL IV (08:06)
--- NOTE | 2024-11-13 09:50 | CM.NOTE ---
Rounds made with Dr. Mckeon, pt returns from OR procedure. RN updated Dr. Mckeon per Dr. Godfrey may wean CBI and pt can discharge to home this evening. Dr. Mckeon discusses with pt plan of care and discharge planning.
--- NOTE | 2024-11-13 10:14 | PM.URCN ---
Urology - CN: HPI Date of Consult Patient: new to practice Consult date: 11/13/24 Requesting Physician: GENOVEVA DOBBS DO Primary Care Provider: Celia Blank MD Consult Narrative Reason for consult IM: Gross hematuria Narrative: Patient is a 64-year-old female presenting with gross hematuria of 11-day duration. She states that initially she felt she had a urinary tract infection but continued to have gross hematuria with severe clot passage. Upon presentation to the emergency room a CT abdomen and pelvis obtained showed a large bladder tumor on the posterior bladder wall approximately 6 cm in size. She had a three-way Lau catheter placed with continuous bladder irrigation initiated. Of note, patient has an extensive smoking history greater than 50 pack years. No exposure to chemicals or toxins. No relevant history of gross hematuria. She has a remote history of nephrolithiasis. She states that she previously had a cystoscopy years ago no other relevant urological history. Denies any fevers, chills, nausea or vomiting, no bowel habit changes. 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 (ICD-10) Surgical History History of detached retina repair ?Z98.890 - Other specified postprocedural states (ICD-10) ?Z86.69 - Personal history of other diseases of the nervous system and sense organs (ICD-10) H/O fine needle aspiration with imaging guidance ?Z98.890 - Other specified postprocedural states (ICD-10) Status post discectomy ?Z98.890 - Other specified postprocedural states (ICD-10) History of bunionectomy ?Z98.890 - Other specified postprocedural states (ICD-10) H/O bilateral oophorectomy ?Z90.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, bilateral (ICD-10) History of tonsillectomy ?Z90.89 - Acquired absence of other organs (ICD-10) Family History (Updated 11/12/24 @ 13:02 by DEVIKA CHU) Father Cancer Mother Family history of diabetes mellitus Family history of hypertension Brother Family history of hypertension Brother Family history of hypertension Social History (Updated 11/12/24 @ 13:03 by DEVIKA CHU) Smoking status: Current every day smoker Nicotine containing products detail: 1 pack per day smoker. NO ETOH at all. Highest level of school completed/degree received: some college, no degree Little interest or pleasure in doing things: not at all Feeling down, depressed, or hopeless: not at all Meds Home Medications and Allergies Home Medications ?Medication ?Instructions ?Recorded ?Confirmed ?Type albuterol sulfate 2.5 mg/3 mL 2.5 mg inhalation Q6H PRN 01/19/24 11/12/24 History (0.083 %) solution for nebulization shortness of breath or wheezing albuterol sulfate 90 mcg/actuation 2 puff inhalation Q4H PRN 01/19/24 11/12/24 History aerosol inhaler shortness of breath or wheezing hydrocodone 5 mg-acetaminophen 325 1 tab PO Q8H 01/19/24 11/12/24 History mg tablet tizanidine 4 mg tablet 4 mg PO Q8H PRN muscle spasticity 01/19/24 11/12/24 History omeprazole 20 mg capsule,delayed 20 mg PO DAILY 02/01/24 11/12/24 History release fluticasone fur. 200 mcg-umeclid 1 inh inhalation DAILY 04/22/24 11/12/24 History 62.5 mcg-vilant 25 mcg inhalat.powder (Trelegy Ellipta) bupropion HCl 300 mg 24 hr tablet, 300 mg PO DAILY 09/30/24 11/12/24 History extended release nitrofurantoin 100 mg PO Q12H 11/12/24 11/12/24 History monohydrate/macrocrystals 100 mg capsule varenicline tartrate 0.5 mg (11)-1 1 ea PO BID 11/12/24 11/12/24 History mg (42) tablets in a dose pack Allergies Allergy/AdvReac Type Severity Reaction Status Date / Time Sulfa (Sulfonamide Allergy Unknown Unknown Verified 11/12/24 03:34 Antibiotics) levofloxacin (From Levaquin) Allergy Rash Verified 11/12/24 03:34 acetaminophen (From Percocet) AdvReac Intermediate Vomiting Verified 11/12/24 03:34 oxycodone (From Percocet) AdvReac Intermediate Vomiting Verified 11/12/24 03:34 Exam Narrative Exam Narrative: General: Alert and oriented x 3, NAD Cardiovascular: Regular rate and rhythm Lungs: Nonlabored breathing on room air Abdomen: Soft, nontender, nondistended with no guarding or rigidity noted : Three-way Lau catheter in place with light pink urine draining Skin: Warm and dry Extremities: No peripheral edema noted Constitutional Vital Signs, click to edit/add: Last Vital Signs Temp 98 F 11/13/24 07:53 Pulse 72 11/13/24 07:53 Resp 16 11/13/24 07:53 BP 125/83 11/13/24 07:53 Pulse Ox 97 11/13/24 07:53 O2 Del Method Room Air 11/13/24 07:53 Results Labs Labs: Short CBC 11/13/24 Range/Units 05:46 WBC 9.8 (4.0-11.0) 10^3/uL Hgb 11.0 L (12.0-16.0) g/dL Hct 33.7 L (36.0-48.0) % Plt Count 295 (150-450) 10^3/uL BMP 11/13/24 05:46 Sodium 143 Potassium 4.1 Chloride 108 H Carbon Dioxide 28.2 BUN 21.0 H Creatinine 0.65 Glucose 98 Calcium 8.9 Urology Assessment and Plan Assessment and Plan (1) Gross hematuria: Assessment and Plan: Likely secondary to bladder mass seen on CT scan. Will proceed to the operating room for cystoscopy, transurethral resection of bladder tumor. Risk, benefits, alternatives were discussed in extensive detail with the patient and we will proceed as such Transfuse for hemoglobin less than 7 Hold anticoagulation for now until gross hematuria resolves Maintain Lau catheter Medical management per primary team (2) Acute urinary retention: Assessment and Plan: Catheter will be kept in after surgery for a few days. She will follow-up in the office on Monday for cath removal Plan Assessment: Gross hematuria. Bladder abnormality seen on CT scan. Possible bacterial urinary tract infection. Use of between 500 mg and 1500 mg of aspirin daily at home in the form of Excedrin Migraine. GERD, with history of peptic ulcer disease. Asthma which is clinically stable and not exacerbated at this time. Severe low back pain with lumbar spine surgery planned in family in January. Plan: Hospital admission, inpatient status. Continue three-way bladder irrigation. This can be gradually titrated down as long as the hematuria is clearing. The emergency room did make contact with urology. N.p.o. after midnight for urologic procedure in the morning. BEN mejia for DVT prophylaxis. Continue the [place] that the patient takes at home for low back pain. Increase proton pump DepoDur up to 40 mg and do this IV twice daily here in the hospital. Check mag easy and with morning labs. Perhaps supplementing magnesium will decrease her headaches. I counseled the patient that she should stop taking Excedrin and any aspirin products if she is considering lumbar bar spine surgery. Recheck labs in the morning.
--- NOTE | 2024-11-13 10:19 | PM.URSON ---
Urology Surgery Operative Note Operative Note Procedure Date: 11/13/24 Pre-op Diagnosis: Bladder tumor Post-op Diagnosis: same as pre-op Anesthesia: DANICA Primary Surgeon: Rehan Mckay Complications: None Estimated blood loss (mL): 0 Findings: Large bladder tumor on posterior lateral wall extending over left ureteral orifice. Tumor greater than 5 cm in total burden Specimens: Bladder tumor chips Drains: 20 Par[place]ayan three-way Lau catheter with 20 cc in balloon on continuous bladder irrigation Incision: Cystoscopy, transurethral resection of bladder tumor LARGE CPT 14442 Indications for Procedures: The patient is 64-year-old female who presented with gross hematuria, large bladder tumor seen on CT abdomen pelvis. She presents for the aforementioned procedure which includes a cystoscopy, fulguration of bladder tumor, clot evacuation, bladder tumor resection large. Risk, benefits, alternatives were discussed in extensive detail with the patient and her and they decided to proceed. Detailed description of Procedure: Patient was brought to the operative suite and placed on continuous pulse oximetry and cardiac monitoring anesthesia. IV antibiotics including 1 g of Rocephin had already been administered on the floor. She was then placed in the dorsolithotomy position and prepped and draped in the normal sterile fashion. General anesthesia was induced. We began the procedure by inserting a 26 [place]ayan resectoscope Olympus. Upon entering the bladder we noted such we evacuated using the E leg evacuator. Approximately 50 cc of clot was evacuated. Once we did this we did a kapadia cystoscopy that revealed a large left lateral wall bladder tumor extending onto the left ureteral orifice. In a systematic fashion we then began resecting the tumor making sure to incorporate muscle in the specimen. Once this was done hemostasis was achieved with electrocautery. Patient bladder was then emptied. Hemostasis was persistent. We did place a 20 [place] three-way Lau catheter at the end with initiation of gentle CBI. This concluded the procedure. Patient was then awakened anesthesia and transferred to PACU stable condition. Plan: Patient will have the catheter in until Monday. She will follow-up in the [place] office for cath removal. Patient can be discharged home on antibiotics, stool softener, Levsin, Pyridium for catheter discomfort Hydrate vigorously with at least 2 L/day She will follow-up with me in 1 to 2 weeks to discuss pathology, neck steps. Post Operative care instructions: Patient will have catheter in until Monday. She will follow-up in [place] Urinary Catheter Management Urinary Catheter Management Urethral: Cath placed during this visit: yes, but has since been removed by the nurse Insertion date: 11/12/24 Insertion time: 04:41 Removal date: 11/12/24 Removal time: 10:45 3-way Urethral: Cath placed during this visit: yes Urethral indwelling: Yes Reason for continuing: acute urinary retention Insertion date: 11/13/24 Insertion time: 04:41
[2024-11-13] MEDS: BUPROPION HCL 150 MG XL TABLET 24H 300 MG PO (11:19)
--- NOTE | 2024-11-14 08:40 | CM.NOTE ---
Prescription not sent home with patient, called in to Pharmacy and notified patient.
--- NOTE | 2024-11-14 14:52 | CM.DCFOLLOWU ---
Person spoke with: patient How are you feeling? well How is your pain? feeling sore Did you understand your discharge instructions? yes Do you have any questions about your discharge instructions? no Were you given any prescriptions at discharge? yes Were you able to get your prescriptions filled? not yet picked up Do you understand how to take your medications as ordered? yes Do you have any questions about your follow up appointment and do you plan to keep your follow up appointment? no questions, will follow up Is there anything else that you would like to discuss? no Questions/Comments/Concerns/Other: none
--- NOTE | 2024-11-14 15:17 | PM.DS1 ---
DS: Providers Provider Date of admission: 11/12/24 11:30 Primary care physician: Celia Blank MD Consults: 11/12/24 10:15 Consult to Urology Routine Consulting Provider: Rehan Mckay Reason for consultation: gross hematuria DS: Diagnosis Discharge Diagnosis (1) Gross hematuria: (2) Acute urinary retention: DS: Summary Hospital Course Hospital Course: Miss Manley is a 64-year-old female with who was admitted to hospital the afternoon of November 12 with a chief complaint of hematuria. She was found to be taking over 1000 mg of aspirin a day secondary to her back pain as well as other NSAIDs. CT scan abdomen pelvis emergency room did show a possible mass in the bladder however was also possible to be a blood clot as the scan was performed without contrast. She was admitted to hospital and started on CBI, her hematuria did clear up at this. She was seen on urology consultation the following morning, she was taken for cystoscopy. On cystoscopy the area of question in the bladder did end up being a bladder mass, this was resected please see op note dated November 13 for details on that. The specimen was sent for pathology. The patient was transferred back to medical floor where she recovered from anesthesia without issues. She had a little bit of left-sided chest pain however it was reproducible with palpation directly under her left breast, this did improve on its own a couple hours after her surgery. The CBI was clear, she was subsequently discharged home with instructions to follow-up in urology office Monday. She will be maintained on a Lau catheter which will possibly be removed in urology office. It should be noted that the patient was admitted as inpatient due to concern for hematuria, this usually takes longer than 48 hours and/or 2 midnights in the hospital however we were able to get her to the urology suite and her urine cleared up. The patient improved much quicker than initially expected thus she was kept as inpatient upon discharge. Time Spent with Patient Time attestation: Total time spent providing and/or coordinating discharge services: Exam Narrative Exam Narrative: General: Awake and alert, no acute distress HEENT: Normocephalic, atraumatic, no scleral icterus noted Lungs: Clear to auscultation bilaterally Cardiac: Regular rate and rhythm, no murmurs appreciated GI: Soft, nontender, regular bowel sounds. Extremities: Active and passive range of motion intact throughout, no edema Neuro: Cranial nerves II through XII intact, no focal deficits noted Skin: No rashes or lesions, no signs of jaundice Constitutional Vital Signs, click to edit/add: Last Vital Signs Temp 97.8 F 11/13/24 11:45 Pulse 66 11/13/24 11:45 Resp 17 11/13/24 11:45 BP 134/72 11/13/24 11:45 Pulse Ox 95 11/13/24 11:45 O2 Del Method Room Air 11/13/24 11:45 Discharge Plan Discharge Disposition: Home, Self-Care Discharge Medications: New acetaminophen [Tylenol] 325 mg Tablet 650 mg PO Q4H PRN (Reason: pain) 30 Days Qty: 180 0RF Continued albuterol sulfate 2.5 mg /3 mL (0.083 %) solution for nebulization 2.5 mg inhalation Q6H PRN (Reason: shortness of breath or wheezing) albuterol sulfate 90 mcg/actuation HFA aerosol inhaler 2 puff INHALATION Q4H PRN (Reason: shortness of breath or wheezing) hydrocodone-acetaminophen 5-325 mg tablet 1 tab PO Q8H tizanidine 4 mg tablet 4 mg PO Q8H PRN (Reason: muscle spasticity) Trelegy Ellipta 200-62.5-25 mcg blister with device 1 inh INHALATION DAILY varenicline tartrate 0.5 mg (11)- 1 mg (42) tablets,dose pack 1 ea PO BID Rx Instructions: take 1mg BY MOUTH IN THE MORNING and IN THE EVENING thereafter nitrofurantoin monohyd/m-cryst 100 mg capsule 100 mg PO Q12H Rx Instructions: STARTED 11/03 omeprazole 20 mg capsule,delayed release(DR/EC) 20 mg PO DAILY bupropion HCl 300 mg tablet extended release 24 hr 300 mg PO DAILY Activity: increase activity as tolerated Diet: advance to your usual diet Print Language: Serbian Patient Instructions: Urinary Leg Bag (GEN), How to Change a Catheter Drainage Bag (DC) Forms: Portal Instructions Follow Up Appointments: 11/15 @ 2:45pm with Dr. Blank [phone] 11/18 @ 8:40am with [facility] ([place]) for catheter removal [address] [place] [address] [place] [address] [address] [phone] Tue. 11/26 @ 8:45am with Dr. Godfrey at [facility] ([place]) for follow up [address] [facility] [address] [place] [address] [address], [place] [phone] Discharge Date/Time: 11/13/24 16:30
--- NOTE | 2024-11-15 08:06 | CM.NOTE ---
Faxed Pathology report to [facility]
== END 2024-11-13 16:30 | disposition home or self-care (01) | DRG 670 ==
LOC: ER 10:12 → MS 11:36
PROVIDERS: Student in an Organized Health Care Education/Training Program; Admitting Provider Hospitalist; Emergency Provider Emergency Medicine; PCP Family Medicine; Visit Provider Internal Medicine
PROC: 0TBB8ZZ Excision of Bladder, Via Natural or Artificial Opening Endoscopic (ICD-10-PCS; principal; 2024-11-13 09:00)
DX: C67.2 Malignant neoplasm of lateral wall of bladder (principal); R31.0 Gross hematuria; Z79.51 Long term (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 of 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; Z88.1 Allergy status to other antibiotic agents; Z88.2 Allergy status to sulfonamides; Z90.722 Acquired absence of ovaries, bilateral; R33.8 Other retention of urine; M48.061 Spinal stenosis, lumbar region without neurogenic claudication; Z82.49 Family history of ischemic heart disease and other diseases of the circulatory system; Z79.891 Long term (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 of opiate analgesic; J45.20 Mild intermittent asthma, uncomplicated; K21.9 Gastro-esophageal reflux disease without esophagitis; Z79.82 Long term (current) use of aspirin; R51.9 Headache, unspecified; F17.210 Nicotine dependence, cigarettes, uncomplicated; Z87.442 Personal history of urinary calculi
CPT/HCPCS: 36415; 51702; 51798; 74176; 80048; 81001; 83735; 85025; 85610; 85730; 88307; 94640; 96365; 96375; 99285; 99406; J0696; J1100; J1885; J2250; J2405; J2704; J3010

== ENCOUNTER 2024-12-11 18:05 | Inpatient (IN) | payer MEDICARE, OTHER, SELFPAY ==
--- OUTSIDE RECORDS SUMMARY | 2024-07-15 13:02 | XMS_ITS ---
Author Organization [facility] in [place] Address [address] [place] [address] Care Team Providers Care Research Management Associate Name Role Phone Celia Blank Primary Care Provider Scott Cramer Unavailable [phone] REASON FOR VISIT [facility] Transfer Pulmonary Encounters Encounter Location Date Provider Diagnosis Pulmonary Medicine [facility] [address] [place] [address] 07/15/2024 Scott Dennis Plan Of Treatment No Information Progress Notes * Cristine MANLEY KDOB: (64 yo F)Acc No.[id number]:07/15/2024 Patient: Cristine ALEJANDRE :1960 A ge:64 Y S ex:Female Address:[address] [place] [address], [id number] * true * Date: Generated for Darya santiago/Alda/eTransmitting on: 0 12/11/2024 06:15 PM EDT
--- OUTSIDE RECORDS SUMMARY | 2024-10-16 05:43 | XMS_ITS ---
Author Organization [facility] in [place] Address [address] [place] [address] Care Team Providers Care Asset Card Clerk Name Role Phone Celia Blank Primary Care Provider Scott Cramer [phone] REASON FOR VISIT Appointment Encounters Encounter Location Date Provider Diagnosis Pulmonary Medicine [place] [address] [place] [address] 10/16/2024 Scott Dennis Plan Of Treatment No Information Progress Notes * Cristine MANLEY KDOB: (64 yo F)Acc No.[id number]:10/16/2024 Patient: Amanda ALEJANDREandrea Hairston :1960 A ge:64 Y S ex:Female Address:[address] [place] [address], [phone] * true * Date: Generated for Darya santiago/Alda/eTransmitting on: 0 12/11/2024 06:15 PM EDT
--- OUTSIDE RECORDS SUMMARY | 2024-10-17 11:00 | XMS_ITS ---
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 ASTHMA (FPG) Medications Medication SIG (Take, Route, Frequency, Duration) Notes Start Date End Date Status Albuterol Sulfate HFA 108 (90 Base) MCG/ACT 2 puffs as needed for SOB Inhalation every 4 hrs for 90 days Dispense #3 inhalers Active buPROPion HCl ER (XL) 300 MG 1 tablet Oral Once a day for 90 days Active Varenicline Tartrate(Continue) 1 MG 1 tablet after eating Orally Twice a day for 30 days Begin after completing starter pack 10/17/2024 Active HYDROcodone-Acetaminophen 5-325 MG Oral for 30 Days Active tiZANidine HCl 4 MG Oral for 30 Days Active Albuterol Sulfate (2.5 MG/3ML) 0.083% 3mL Inhalation QID for 90 days Active Trelegy Ellipta 200-62.5-25 MCG/ACT 1 puff Inhalation Once a day for 90 days Rinse after use ; Dispense #3 inhalers Active Varenicline Tartrate (Starter) 0.5 MG X 11 & 1 MG X 42 as directed Orally 10/17/2024 Active Social History Tobacco Use: Social History Observation Description Date Details (start date - stop date) Current Smoker NA - NA Tobacco Control (Standard) Question Answer Notes Tobacco use: Current every day smoker Additional Findings: Tobacco user Heavy cigarett e smoker (20-39 cigs/day) Problems Problem Type SNOMED Code ICD Code Onset Dates Problem Status W/U Status Risk Notes Problem Uncomplicated moderate persistent asthma (258823698) Moderate persistent asthma, uncomplicated (J45.40) Active confirmed Problem Mental disorder caused by drug (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) Cigarette nicotine dependence with nicotine-induced disorder (F17.219) Active confirmed Problem 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 (Z79.51) Active confirmed Problem Multiple pulmonary nodules (163382760) Multiple pulmonary nodules (R91.8) Active confirmed Vital Signs Temperature 96.6 degrees Fahrenheit 10/18/19 25 Blood pressure systolic 103 mm Hg 10/18/19 25 Blood pressure diastolic 67 mm Hg 025 Heart Rate 80 /min 10/17/2024 Respiratory Rate 18 /min 10/17/2024 Height 67.0 in 10/17/2024 Weight 171.8 lbs 10/17/2024 BMI 26.9 kg/m2 10/17/2024 Oximetry 95 % 10/17/2024 Procedures Procedure Date Ordered Date Performed Result Body Sit e Smoking/Tobacco Counseling 3 min up to 10-performed 10/17/2024 10/17/2024 N/A Encounters Encounter Location Date Provider Diagnosis Pulmonary Medicine [address] [address] 10/17/2024 Scott Dennis Moderate persistent asthma, uncomplicated J45.40 ; Cigarette nicotine dependence with nicotine-induced disorder F17.219 ; Multiple pulmonary nodules R91.8 ; correction (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 of 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 Z79.51 and Encounter for screening for malignant neoplasm of respiratory organs Z12.2 Assessments Encounter Date Diagnosis (ICD Code) Assessment Notes Treatment Notes Treatment Clinical Notes Section Notes 10/17/2024 Moderate persistent asthma, uncomplicated (ICD-10 - J45.40) Prior treatment: Trelegy 200 > Advair 250 > Spiriva 1.25 Patient has benefit from Trelegy 200, but remains symptomatic with frequent albuterol use (both HFA and neb). Reviewed testing from the past: eosinophils only 100 and IgE 41, so biologic treatments are limited. Ongoing symptoms most consistent with continued smoking. Smoking cessation is the best option at this point. Will need to look into alpha-1 antitrypsin (AAT) testing in the future. 10/17/2024 Cigarette nicotine dependence with nicotine-induced disorder (ICD-10 - F17.219) ~2ppd x 50 years Discussed smoking cessation for 5 minutes today. Has been on Wellbutrin XL first at 150mg dose then 300mg dose. Had some success decreasing to 1/2ppd but back to 1ppd. She believes that Wellbutrin isn't working but I asked her if she were trying hard enough not to smoke? She said she could try harder. Explained that no treatment will make her stop - it can take some of the urge or pleasure away, but she has to consciously stop smoking. She asked about Chantix. I said that is an option Discussed most common adverse effects include vivid dreams and nightmares. She also asked about using Chantix with Wellbutrin. There can be synergy with the two medications, but there could be potential augmentation of adverse effects. Will try both - Rx Chantix starter pack and then follow with continuing pack if covered and tolerated. If not covered, she should remain on Wellbutrin and work at stopping harder. Last LDCT done 03/21/2024 - Next LDCT is due 03/2025. 10/17/2024 Multiple pulmonary nodules (ICD-10 - R91.8) LDCT 03/21/2024 - RUL patchy scarring and scattered pulmonary nodules 3mm or less in size. According to current Fleischner Society Guidelines, no further imaging monitoring is required, but they will be followed with annual LDCT screening which is due 03/2025. 10/17/2024 correction (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 of 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 (ICD-10 - Z79.51) Patient was counseled to rinse & gargle with water after inhaled corticosteroid use. 10/17/2024 Encounter for screening for malignant neoplasm of respiratory organs (ICD-10 - Z12.2) Low-dose CT (LDCT) was recommended for lung cancer screening. The patient meets criteria including age 50-77, a smoking history of at least 20 pack-years, is currently smoking or has ceased smoking within the past 15 years, and has no signs or symptoms of lung cancer. Shared decision making performed with the patient. After LDCT has been completed, will review report and/or imaging and provide appropriate recommendations for the patient, including additional follow up if needed. Patient was counseled on smoking cessation/continued tobacco abstinence. LDCT due 03/2025. Plan Of Treatment Medication Medication Name Sig Start Date Stop Date Notes Albuterol Sulfate HFA 108 (9 0 Base) MCG/ACT 2 puffs as needed for SOB Inhalation every 4 hrs for 90 days buPROPion HCl ER (XL) 300 MG 1 tablet Or al Once a day for 90 days Varenicline Tartrate(Continu e) 1 MG 1 tablet after eating Orally Twice a day for 30 days 10/17/2024 Albuterol Sulfate (2.5 MG/3M L) 0.083% 3mL Inhalation QID for 90 days Trelegy Ellipta 200-62.5-25 MCG/ACT 1 puff Inhalation Once a day for 90 days Varenicline Tartrate (Starte r) 0.5 MG X 11 & 1 MG X 42 as directed Orally 10/17/2024 Treatment Notes Assessment Notes Moderate persistent asthma, uncomplicate d Prior treatment: Trelegy 200 > Advair 250 > Spiriva 1.25 Patient has benefit from Trelegy 200, but remains symptomatic with frequent albuterol use (both HFA and neb). Reviewed testing from the past: eosinophils only 100 and IgE 41, so biologic treatments are limited. Ongoing symptoms most consistent with continued smoking. Smoking cessation is the best option at this point. Will need to look into alpha-1 antitrypsin (AAT) testing in the future. Cigarette nicotine dependenc e with nicotine-induced disorder ~2ppd x 50 years Discussed smoking cessation for 5 minutes today. Has been on Wellbutrin XL first at 150mg dose then 300mg dose. Had some success decreasing to 1/2ppd but back to 1ppd. She believes that Wellbutrin isn't working but I asked her if she were trying hard enough not to smoke? She said she could try harder. Explained that no treatment will make her stop - it can take some of the urge or pleasure away, but she has to consciously stop smoking. She asked about Chantix. I said that is an option Discussed most common adverse effects include vivid dreams and nightmares. She also asked about using Chantix with Wellbutrin. There can be synergy with the two medications, but there could be potential augmentation of adverse effects. Will try both - Rx Chantix starter pack and then follow with continuing pack if covered and tolerated. If not covered, she should remain on Wellbutrin and work at stopping harder. Last LDCT done 03/21/2024 - Next LDCT is due 03/2025. Multiple pulmonary nodules LDCT 03/21/2024 - RUL patchy scarring and scattered pulmonary nodules 3mm or less in size. According to current Fleischner Society Guidelines, no further imaging monitoring is required, but they will be followed with annual LDCT screening which is due 03/2025. correction (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 of i nhaled steroids Patient was counseled to rinse & gargle with water after inhaled corticosteroid use. Encounter for screening for malignant neoplasm of respiratory organs Low-dose CT (LDCT) was recommended for lung cancer screening. The patient meets criteria including age 50-77, a smoking history of at least 20 pack-years, is currently smoking or has ceased smoking within the past 15 years, and has no signs or symptoms of lung cancer. Shared decision making performed with the patient. After LDCT has been completed, will review report and/or imaging and provide appropriate recommendations for the patient, including additional follow up if needed. Patient was counseled on smoking cessation/continued tobacco abstinence. LDCT due 03/2025. Future Test Test Name Order Date CT Chest Low Dose for Screening* 025 Next Appt Details Follow Up: 6 Months, Reason: Procedure Notes * Category Sub-Category Detail Notes PFT Data: 03/04/2024 -FEV1 /FVC: 73%-FEV1: 65%-FVC: 68%-TDJ66-39%: 56%-Bronchodilator response: Partial-RV: 118%-T%-DLCO: 77% Progress Notes * Cristine MANLEY KDOB: [birth year] (64 yo F)Acc No.[id number]:10/17/2024 Follow Up Patient: Cristine ALEJANDRE Provider: Aliya Dennis DO :1960 A ge:64 Y S ex:Female Date:10/17/2024 Address:[address] [place], [place] [id number] Pcp:Celia Blank Check In:02:52 PM ESTCheck O ut:03:42 PM EST Subjective: * Chief Complaints: * F /U-6 MO. ASTHMA ([facility]) * HPI: G eneral: TRANSFER FROM [facility] PULMONOLOGY Patient was last seen @ [facility] Pulmonology 04/15/2024. She had benefit with Trelegy 200 over Advair 250, but remained symptomatic most consistent with ongoing smoking. She has been on Wellbutrin XL 150 and then 300 for smoking cessation. Was able to cut down to 1/2ppd but is now back to 1ppd. Explained that no smoking cessation aid is going to make her stop - she has to cease buying the cigarettes and then lighting them up. She is asking about Chantix. MA Intake Comments:. Patient presents for a follow-up for Asthma. Patient was seen by at [facility] Pulmonary and requested to transfer to [facility] Pulmonary. Patient admits to smoking 1PPD. Patient complains of SOB with exertion & Cough. Patient is currently using Trelegy daily with benefit. Patient reports having to use Albuterol several times per week. Patient is currently on Wellbutrin to stop smoking but reports minimal benefit. Patient would like to discuss Chantix to help her stop smoking. * ROS: G eneral/Constitutional: Fever or sweats d enies. C hange of appetite d enies. C hills d enies. W eight Change d enies. H EENT: Dry mouth d enies. S ore throat d enies. O ral Ulcers d enies. P ost Nasal Drip D enies. C ongestion D enies. H oarseness?Denies. C ardiovascular: Tachycardia d enies. E hola D enies. C hest pain d enies. P alpitations d enies. R espiratory: Dyspnea w ith exertion. C ough p resent. W heezing d enies. G astrointestinal: Acid Reflux/GERD/Heartburn d enies. M usculoskeletal: Arthralgias/joint pain D enies. S kin: Easy bruising d enies. R elisa d enies. ? N eurologic: Seizures d enies. T remor d enies. H ematology: Abnormal Bleeding d enies. P sychiatric: Anxiety d enies. * Active Problem List J45.40 Moderate persistent asthma, uncomplicated Modified On:10/17/2024U Status:confirmed F17.219 Cigarette nicotine d ependence with nicotine-induced disorder Modified On:10/17/2024U Status:confirmed R91.8 Multiple pulmonary n odules Modified On:10/17/2024U Status:confirmed Z79.51 correction (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 of 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 Modified On:10/17/2024 Status:confirmed * Medical History: * Surgical History: o opherectomy tonsillectomy bunionectomy cataract-lens implants thoracic spine surgery * Hospitalization/Major Diagno stic Procedure: D enies Past Hospitalization * Family History: B rother(s): chronic obstructive pulmonary disease. F ather: diagnosed with Other malignant neoplasm of unspecified site. M other: diagnosed with Diabetes mellitus without mention of complication, type II or unspecified type, not stated as uncontrolled, Unspecified essential hypertension. 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 D rugs/Alcohol: D rugs H ave you used drugs other than those for medical reasons in the past 12 months? N o D oes the Patient have a History of Drug Abuse in the Past? N o Caffeine I ntake: 1 -2 cups per day Coffee Do you drink alcohol?: No. Do you smoke marijuana?: Denies. * Medications: T akingAlbuterol Sulfate (2.5 MG/3ML) 0.083% Nebulization Solution INHALE 3ml via NEBULIZER FOUR TIMES DAILY NEEDED SHORTNESS OF BREATH and FOR WHEEZING Inhalation Albuterol Sulfate HFA 108 (90 Base) MCG/ACT Aerosol Solution 2 puffs as needed Inhalation every 4 hrs buPROPion HCl ER (XL) 300 MG Tablet Extended Release 24 Hour Oral HYDROcodone-Acetaminophen 5-325 MG Tablet Oral tiZANidine HCl 4 MG Tablet Oral Trelegy Ellipta(Amqmempcwnx-Torxxpgzx-Lpdjtb) 200-62.5-25 MCG/ACT Aerosol Powder Breath Activated inhale 1 dose orally daily; Rinse after use Inhalation Medication List reviewed and reconciled with the patientTaking Albuterol Sulfate (2.5 MG/3ML) 0.083% Nebulization Solution INHALE 3ml via NEBULIZER FOUR TIMES DAILY NEEDED SHORTNESS OF BREATH and FOR WHEEZING Inhalation Taking Albuterol Sulfate HFA 108 (90 Base) MCG/ACT Aerosol Solution 2 puffs as needed Inhalation every 4 hrs Taking buPROPion HCl ER (XL) 300 MG Tablet Extended Release 24 Hour Oral Taking HYDROcodone-Acetaminophen 5-325 MG Tablet Oral Taking tiZANidine HCl 4 MG Tablet Oral Taking Trelegy Ellipta(Rlxjyjlsook-Mshmojfdp-Dxvkif) 200-62.5-25 MCG/ACT Aerosol Powder Breath Activated inhale 1 dose orally daily; Rinse after use Inhalation Medication List reviewed and reconciled with the patient * Allergies: L evaquin: rash - AllergySulfa Antibiotics: unknown - AllergyPercocet: nausea and vomiting - Allergyno[Allergies Verified] Objective: * Vitals: W t:171.8lbs, Ht:67.0in, BP:sittin/67mm Hg, Temp:Forehead:96.6F, HR:80/min, RR:18/min, BMI:26.9Index, Oxygen sat %:Room Air:95%, Ht-cm: 170.18 cm, Wt-k.93 kg. * Examination: E xam: GENERAL APPEARANCE: A ppears stated age. Skin N ormal. Mouth P ink and moist. Oropharynx M allampati Class II. Trachea M idline. Chest N ormal. Respiratory Normal M ovements, E ffort N ormal. Auscultation D iminished with coarse breath sounds and expiratory wheezes. Cardiac R egular rate and rhythm. Gastrointestinal N ormal. Vascular N o edema. Musculoskeletal N ormal posture. Neurological F ocal, intact. Psychiatric A lert and oriented x3. Mentation/Cognition N ormal. Assessment: * Assessment: 1. M oderate persistent asthma, uncomplicated - J45.40 (Primary) 2 . C igarette nicotine dependence with nicotine-induced disorder - F17.219 3 . M ultiple pulmonary nodules - R91.8 4 . L dave term (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 of 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 - Z79.51 5 . E ncounter for screening for malignant neoplasm of respiratory organs - Z12.2 Plan: * Treatment: 2. C igarette nicotine dependence with nicotine-induced disorder Refill buPROPion HCl ER (XL) Tablet Extended Release 24 Hour, 300 MG, 1 tablet, Oral, Once a day, 90 days, 90 Tablet, Refills 4; S tart Varenicline Tartrate (Starter) Tablet Therapy Pack, 0.5 MG X 11 & 1 MG X 42, as directed, Orally, 1 each, Refills 0; S tart Varenicline Tartrate(Continue) Tablet, 1 MG, 1 tablet after eating, Orally, Twice a day Begin after completing starter pack, 30 days, 60, Refills 5. I maging: CT Chest Low Dose for Screening* (Ordered for 03/10/2025) P rocedure: Smoking/Tobacco Counseling 3 min up to 10-performed Notes: ~2ppd x 50 years Discussed smoking cessation for 5 minutes today. Has been on Wellbutrin XL first at 150mg dose then 300mg dose. Had some success decreasing to 1/2ppd but back to 1ppd. She believes that Wellbutrin isn't working but I asked her if she were trying hard enough not to smoke? She said she could try harder. Explained that no treatment will make her stop - it can take some of the urge or pleasure away, but she has to consciously stop smoking. She asked about Chantix. I said that is an option Discussed most common adverse effects include vivid dreams and nightmares. She also asked about using Chantix with Wellbutrin. There can be synergy with the two medications, but there could be potential augmentation of adverse effects. Will try both - Rx Chantix starter pack and then follow with continuing pack if covered and tolerated. If not covered, she should remain on Wellbutrin and work at stopping harder. Last LDCT done 03/21/2024 - Next LDCT is due 03/2025. 3. M ultiple pulmonary nodules Notes: LDCT 03/21/2024 - RUL patchy scarring and scattered pulmonary nodules 3mm or less in size. According to current Fleischner Society Guidelines, no further imaging monitoring is required, but they will be followed with annual LDCT screening which is due 03/2025. 4. L dave term (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 of 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 Notes: Patient was counseled to rinse & gargle with water after inhaled corticosteroid use. 5. E ncounter for screening for malignant neoplasm of respiratory organs I maging: CT Chest Low Dose for Screening* (Ordered for 03/10/2025) Notes: Low-dose CT (LDCT) was recommended for lung cancer screening. The patient meets criteria including age 50-77, a smoking history of at least 20 pack-years, is currently smoking or has ceased smoking within the past 15 years, and has no signs or symptoms of lung cancer. Shared decision making performed with the patient. After LDCT has been completed, will review report and/or imaging and provide appropriate recommendations for the patient, including additional follow up if needed. Patient was counseled on smoking cessation/continued tobacco abstinence. LDCT due 03/2025. * Procedures: P FT: Data: 03/04/2024 -FEV1/FVC: 73% -FEV1: 65% -FVC: 68% -SMP98-63%: 56% -Bronchodilator response: Partial -RV: 118% -T% -DLCO: 77%. * Procedure Codes: 9 9406 SMOKING CESSATION, 3-10MIN * Preventive Medicine: COVID Vaccination: H as patient had COVID Vaccination? COVID Vaccination Y es 03/29/2021 Immunization Status: P neumovacc P t Refused. I nfluenza P t Refused. Screenings/Counseling: F ALL RISK SCREENING Fall Risk Assessment: O ne fall with injury in the past year Are you afraid of falling? N o T OBACCO ACTION PLAN Patient counselled on the dangers of tobacco use and urged to quit. 0 10/17/2024 Cessation counseling provided 0 10/17/2024 F KOFI EXCLUSION Reason: P atient Reason refused/declined Type of Patient Reason: D rug declined by patient B DE ACTION PLAN Above Normal BMI Follow-up D ietary management education, guidance, and counseling * Follow Up: 6 Months * * Sign off status: Completed Visit Status: C HK (Check Out) true * Provider: Aliya Dennis DO Date: 0 10/17/2024 Generated for Darya santiago/Alda/eTransmitting on: 0 12/11/2024 06:15 PM EDT History and Physical Notes * HPI (History of Present Illness) Category Sub-Category Detail Notes Category Not es General Patient present s for a follow-up for Asthma. Patient was seen by at [facility] Pulmonary and requested to transfer to [facility] Pulmonary. Patient admits to smoking 1PPD. Patient complains of SOB with exertion & Cough. Patient is currently using Trelegy daily with benefit. Patient reports having to use Albuterol several times per week. Patient is currently on Wellbutrin to stop smoking but reports minimal benefit. Patient would like to discuss Chantix to help her stop smoking. Examination Category Sub-Category Detail Notes Category Not es Exam GENERAL APPEARANCE: Appears stated age Skin Normal Mouth [place] and moist Trachea Midline Chest Normal Respiratory Normal Movements, Ef fort Normal Auscultation Diminished with coar se breath sounds and expiratory wheezes Cardiac Regular rate and rhy thm Gastrointestinal Normal Vascular No edema Musculoskeletal Normal posture Neurological Focal, intact Psychiatric Alert and oriented x 3 Mentation/Cognition Normal Oropharynx Mallampati Class II
--- OUTSIDE RECORDS SUMMARY | 2024-10-29 03:30 | XMS_ITS ---
Author Organization [facility] in [place] Address [address] [place] [address] Care Team Providers Care Packer Denture Name Role Phone Celia Blank Primary Care Provider Scott Cramer [phone] REASON FOR VISIT F/U-6 MO. ASTHMA (FPG) Encounters Encounter Location Date Provider Diagnosis Pulmonary Medicine [address] [address] 10/29/2024 Scott eDnnis Plan Of Treatment No Information Progress Notes * SINDHU Cristine KDOB: (64 yo F)Acc No.[id number]:10/29/2024 UNLOCKED PROGRESS NOTE Follow Up Patient: Cristine ALEJANDRE Provider: Alyia Dennis DO :1960 A ge:64 Y S ex:Female Date:10/29/2024 Address:[address] [place], [place] [address] Pcp:Celia Blank Subjective: * Chief Complaints: * 1 . F/U-6 MO. ASTHMA (FPG). * Medical History: Objective: * Vitals: Assessment: Plan: * Treatment: * * Electronic signature of Shilpa Dennis DO on 12/11/2024 at 06:15 PM EDT Sign off status: Pending Visit Status: R /S (Rescheduled) * Provider: Aliya Dennis DO Date: 0 10/29/2024 Generated for Printi ng/Faxing/eTransmitting on: 0 12/11/2024 06:15 PM EDT
[2024-12-11 18:09] VITALS: BP 139/87; PULSE 97; TEMP 37.3; O2SAT 95; BMI 25.4
--- OUTSIDE RECORDS SUMMARY | 2024-12-11 18:15 | XMS_ITS | Patient Health Record ---
Author Organization [facility] Address [address] [place] [address] Care Team Providers Care Machine Operator Cane Cutter Name Role Phone Celia Blank M.D. Primary Care Provider Unavail able Jose L Vance Unavailable [phone] Cecil Malik Unavailable [phone] Sravani Shafer Unavailable Allergies Allergen (clinical drug ingredient) Drug/Non Drug Allergy documented on EMR Reaction Allergy Type Onset Date Status BIAXIN (uncoded) Unknown Allergy Act onesimo LEVAQUIN (uncoded) Unknown Allergy A ctive SULPHA (uncoded) Unknown Allergy Act onesimo Percocet Unknown Drug Allergy Active Results Component Value Reference Range Notes CT Spine Lumbar Myelogram w/ Contrast Reviewed date:09/19/2024 11:52:34 AM Interpretation: Performing Lab: Notes/Report: Patient Name: Karlene Manley CLINICAL HISTORY: Pain and radiculopathy. XR Myelography Lumbosacral S pine Reviewed date:08/20/2024 10:10:32 AM Interpretation: Performing Lab: Notes/Report: Patient Name: Karlene Manley CLINICAL HISTORY: Radiculopathy. Platelet Count Reviewed date:08/20/2024 10:10:32 AM Interpretation: Performing Lab: Notes/Report: [facility] [address] [place] [address] Platelet 313 150-450 x10*3/mcL PT Reviewed date:08/20/2024 10:10:32 AM Interpretation: Performing Lab: Notes/Report: [facility] [address] [place] [address] PT 10.4 10.2-12.9 seconds INR 0.9 <=3.5 ratio INR has no normal range. INR Therapeutic range is: 2.0-3.0 (AF, CVA, TIAs, DVT prophylaxis, acute DVT) 2.5-3.5 ([facility] heart valves, recurrent thrombosis/emboli) PTT Reviewed date:08/20/2024 10:10:32 AM Interpretation: Performing Lab: Notes/Report: [facility] [address] [place] [address] PTT 30.8 25.1-36.5 seconds Reason For Referral Reason NO AUTH REQ......... ......................NOT SCHEDULED....................................[facility] ct lumbar myelogram to be done at [facility] Diagnosis 1 Retrolisthesis (M43. 10) Referral Organization [facility] Referring Provider First Name Jose L Referring Provider Last Name [facility] Tan Referring Provider Speciality Orthopedic Surgery Referred Organization [facility] Central Scheduling Procedure 1 CT lumbar spine; W/ contrast material (75455) General Notes Luiza Camilo 2024 10:01:53 AM >, Amira Bradford 07/12/2024 10:13:12 AM > MYELOGRAM OF WHAT PART?Leslee Dawn 07/12/2024 11:00:16 AM >SORRY LUMBARSanchez Kayla 07/12/2024 11:03:14 AM > THANK YOU, MEDICARE PARTS A & B ACTIVE AND EFFECTIVE 01/09/24 [facility] NO AUTHORIZATION REQUIRED. FAXED TO [place].Leslee Dawn 07/12/2024 01:28:10 PM >[facility] DOES NOT DO CT MYELOGARM, SO PATIENT WOULD LIKE TO GO TO [facility]. ORDER FAXED, Rozina Cruz 07/12/2024 02:45:10 PM [...] Problem Status W/U Status Risk Notes Problem [id number] Spondylolisthesi s, lumbar region (M43.16) Active confirmed Problem 8441612 Radiculopathy, lumbosacral region (M54.17) Active confirmed Problem 72344064 Lumbar stenosis with neurogenic claudication (M48.062) Active confirmed Problem 702120468 Neuroforaminal stenosis of lumbar spine (M48.061) Active confirmed Problem 39060040 Degeneration of intervertebral disc of lumbar region with discogenic back pain (M51.360) Active confirmed Vital Signs Height 5'7 in 07/12/2024 Weight 176 lbs 07/12/2024 BMI 27.56 07/12/2024 Encounters Encounter Location Date Provider Diagnosis [facility] [address] [place] [address] 07/12/2024 [facility] Spondylolisthesis, lumbar region M43.16 and Radiculopathy, lumbosacral region M54.17 [facility] Office [address] [place] [id number] 10/18/2024 [facility] [place] Degeneration of intervertebral disc of lumbar region with discogenic back pain M51.360 and Lumbar stenosis with neurogenic claudication M48.062 Assessments Encounter Date Diagnosis (ICD Code) Assessment [...] on 2 spondylolisthesis 3. L5-S1 radiculopathy 10/18/2024 Other Plan established by Dr. [...] with stenosis and radiculopathy Plan Of Treatment Pending Test Test Name Order Date CT Myelogram - Lumbar Spine 07/12/2024 Next Appt Details Provider Name:Jose L Severino, 03/04/2025 09:00:00 AM, [address] [facility], [place], [place], [id number], Insurance Providers Payer Name Payer Address Payer Phone Subscriber Number Group Number Insured Name Patient Relationship to Insured Coverage Start Date Coverage End Date [place] [address] [place] [address] [id number] KARLENE MANLEY Self - patient is the insured [employer] [address] [address] [place] [address] [id number] KARLENE MANLEY Self - patient is the [...]
--- OUTSIDE RECORDS SUMMARY | 2024-12-11 18:15 | XMS_ITS | Clinical Summary ---
Author Organization [facility] Address [address] [place] [address] Care Team Providers Care General Supervisor Name Role Phone Celia Blank MD Primary Care Provider [phone] Ofelia Arceo MD Unavailable Geoff Walker DO Unavailable [phone] Allergies Active Allergy Reactions Criticality Noted Date [...] MG DR capsule Oral Active HYDROcodone-yisel taminophen ([place]) 5-325 MG tablet Take 1 tablet by [...] 06/10/2025 8:45 AM EST Office Visit [facility] [address] [place] [id number] Geoff Walker, [address] [facility] [place] [address] Health Maintenance Due Date Last Done Comments CT Colonography 1959 FIT-DNA 1959 FIT 1959 FOBT 1959 Sigmoidoscopy 1959 Pap Smear 01/22/1980 Cervical Cancer Screening 1989 HPV/Cotest 1989 Mammogram 1999 Pneumococcal Vaccine: 65+ Years (1 of 1 - PCV) 009 Influenza Vaccine (#1) 2024 Colonoscopy 01/13/2032 01/12/2022 Colorectal Cancer Screening 01/13/2032 Insurance MEDICARE GENERIC OTHER Care Teams General Supervisor Relationship Specialty Start Date End Date Celia Blank MD PCP - General Family Medicine 03/27/24 Ofelia Arceo MD [address] [place] [address] Referring Physician Internal Medicine 03/27/24 Geoff Walker DO [address] [place] [address] Otolaryngology 06/05/24
--- OUTSIDE RECORDS SUMMARY | 2024-12-11 18:15 | XMS_ITS | Clinical Summary ---
Author Organization [facility] Address [address] [facility], [address] [place] [address] Care Team Providers Care Admitting Office Escort Name Role Phone Celia Blank MD Primary Care Provider [phone] Allergies Active Allergy Reactions Criticality Noted Date [...] on file Insurance [employer] Care Teams Admitting Office Escort Relationship Specialty Start Date End Date Celia Blank MD PCP - General Family Medicine 06/29/16
--- OUTSIDE RECORDS SUMMARY | 2024-12-11 18:15 | XMS_ITS | Patient Health Record ---
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 (Z79.51) Active confirmed Problem 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) Cigarette nicotine dependence with nicotine-induced disorder (F17.219) Active confirmed Problem Multiple pulmonary nodules (241187302) Multiple pulmonary nodules (R91.8) Active confirmed Vital Signs Heart Rate 80 /min 10/17/2024 Temperature 96.6 degrees Fahrenheit 10/17/2024 Respiratory Rate 18 /min 10/17/2024 Blood pressure diastolic 67 mm Hg 10/17/2024 Oximetry 95 % 10/17/2024 Height 67.0 in 10/17/2024 Blood pressure systolic 103 mm Hg 10/17/2024 Weight 171.8 lbs 10/17/2024 BMI 26.9 kg/m2 10/17/2024 Procedures Procedure Date Ordered Date Performed Result Body Sit e Smoking/Tobacco Counseling 3 min up to 10-performed 10/17/2024 10/17/2024 N/A Encounters Encounter Location Date Provider Diagnosis Pulmonary [place] [address] [place] [address] 07/15/2024 [facility] Pulmonary Medicine [place] [address] [place] [address] 10/16/2024 [facility] Pulmonary Medicine [place] [address] [place] [address] 10/17/2024 [facility] Moderate persistent asthma, uncomplicated J45.40 ; Cigarette nicotine dependence with nicotine-induced disorder F17.219 ; Multiple pulmonary nodules R91.8 ; [facility] (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 of 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 Z79.51 and [...] LDCT screening which is due 03/2025. 10/17/2024 medical terminologist (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 of 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 (ICD-10 - [...] End Date [place] [address] [place] [address] [id number] Cristine Manley Self - patient is the insured ALLSTATE MEDICARE SUPPLEMENT [address] [address] [place] [address] [id number] Cristine Manley Self - patient is the insured Medical (General) History Medical History History ICD Code Moderate persistent asthma, uncomplicate d J45.40 Multiple pulmonary nodules R91.8 OA (osteoarthritis) M19.90 Cigarette nicotine dependence with nicot ine-induced disorder F17.219 Surgical History Surgery Date(Month/Year) thoracic spine surgery cataract-lens implants bunionectomy tonsillectomy oopherectomy
--- OUTSIDE RECORDS SUMMARY | 2024-12-11 18:16 | XMS_ITS | Clinical Summary ---
Author Organization [facility] Address [address] [place] [address] Care Team Providers Care Lead Slot Technician Name Role Phone Celia Blank MD Primary Care Provider [phone] Allergies Active Allergy Reactions Criticality Noted Date [...] & 2 Ab (EIA) Non Reactive NR [facility] Comment: If results are indeterminate or [...] MD LABORATORY Final Result Performing Organization Address City/State/[facility] Co de Phone Number [facility] [address] [place] [address] * COMP METABOLIC PANEL (03/11/2010 3:48 PM EST) Pathologist [facility] Protein, Total 6.8 6.0 - 8.4 g/dL [facility] Albumin 4.7 3.5 - 5.0 g/dL [facility] Calcium 9.8 8.5 - 10.5 mg/dL [facility] Bilirubin, Total 0.3 0.0 - 1.5 mg/dL [facility] Alkaline Phosphatase 75 40 - 150 U/L [facility] AST 15 7 - 40 U/L [facility] Glucose 78 65 - 100 mg/dL [facility] BUN 17 8 - 25 mg/dL [facility] Creatinine 0.94 0.70 - 1.40 mg/dL [facility] Sodium 142 132 - 148 mmol/L [facility] Potassium 4.8 3.5 - 5.0 mmol/L [facility] Chloride 105 98 - 110 mmol/L [facility] CO2 27 23 - 32 mmol/L [facility] Anion Gap 10 0 - 15 mmol/L [facility] ALT 15 0 - 45 U/L [facility] eGFR- >60 [facility] eGFR-All Other Races >60 . [facility] Comment: eGFR (Estimated GFR) Units of [...] us Les Drew MD LABORATORY Final Result [facility] [address] [place] [address] from Last 3 Months or Most Recently Relevant to Health Maintenance Care Teams Lead Slot Technician Relationship Specialty Start Date End Date Celia Blank MD [address] [place] [address] PCP - General Family Medicine 03/09/10
--- OUTSIDE RECORDS SUMMARY | 2024-12-11 18:16 | XMS_ITS | Clinical Summary ---
Author Organization [facility] tem Address [id number] [address] [place] [address] Care Team Providers Care Medicine Assistant Name Role Phone Celia Blank MD Primary Care Provider [phone] Allergies Active Allergy Reactions Criticality Noted Date [...] EDT - 10/01/2024 11:16 AM EDT Emergency [facility] - Emergency [address] [address] Carmen Alfred, Pancolitis ([facility]) (Primary Dx); Abnormal computed tomography of abdomen [...] CAMPYLOBACTER Detected(A) Not Detected 10/01/2024 3:31 PM [facility] Comment:Detects the followin g: C. jejuni, C. coli, C. upsaliensis. PLESIOMONAS Not Detected Not Detected 10/01/2024 [facility] SALMONELLA Not Detected Not Detected 10/01/2024 3:31 PM [facility] VIBRIO Not Detected Not Detected 10/01/2024 3:31 PM [facility] VIBRIO CHOLERAE Not Detected Not Detected 10/01/2024 3:31 PM [facility] Y. ENTEROCOLITICA Not Detected Not Detected 10/01/2024 3:31 PM [facility] AGGREGATIVE E COLI Not Detected Not Detected 10/01/2024 3:31 PM [facility] PATHOGENIC E COLI Detected(A) Not Detected 10/01/2024 3:31 PM [facility] Comment:Enteropathogenic Esc herichia coli TOXIGENIC E COLI Not Detected Not Detected 10/01/2024 3:31 PM [facility] SHIGA TOXIN E COLI Not Detected Not Detected 10/01/2024 3:31 PM [facility] SHIGELLA-E COLI Not Detected Not Detected 10/01/2024 3:31 PM [facility] CRYPTOSPORIDIUM Not Detected Not Detected 10/01/2024 3:31 PM [facility] CYCLOSPORA Not Detected Not Detected 10/01/2024 3:31 PM [facility] E HISTOLYTICA Not Detected Not Detected 10/01/2024 3:31 PM [facility] GIARDIA LAMBLIA Not Detected Not Detected 10/01/2024 3:31 PM [facility] ADENOVIRUS Not Detected Not Detected 10/01/2024 3:31 PM [facility] ASTROVIRUS Not Detected Not Detected 10/01/2024 3:31 PM [facility] NOROVIRUS Not Detected Not Detected 10/01/2024 3:31 PM [facility] ROTAVIRUS A Not Detected Not Detected 10/01/2024 3:31 PM [facility] SAPOVIRUS Not Detected Not Detected 10/01/2024 3:[address] [facility] Stool Feces / Unknown Collection / Unknown 10/01/2024 10:49 AM EDT 10/01/2024 10:52 AM EDT Carmen Raineykhatib DO BODY FLUIDS AND STOOLS ORDER CASSANDRA Final Result Performing Organization Address [facility]/ZIP Co de Phone Number [facility] [address] [place] [address], [place] [phone] * C difficile by PCR (10/01/2024 10:49 AM EDT) Pathologist [facility] TOXIGENIC C DIFF Negative Negative 10/02/19 2:[address] [facility] 027 NAP1 Presumptive Negative Presumptive Negative 10/01/2024 2:[address] [facility] Comment:Assay methodology is nucleic acid amplification by real-time PCR for detection of C. difficile toxin gene sequences performed on [employer] Instrument System. Stool Feces / Unknown Collection / Unknown 10/01/2024 10:49 AM EDT 10/01/2024 10:52 AM EDT Carmen Alfred DO BODY FLUIDS AND STOOLS ORDER CASSANDRA Final Result Performing Organization Address City/[facility] Co de Phone Number [facility] [address] [place] [address], [place] [phone] * (ABNORMAL) POCT Nursing Urine Macroscopic UA (10/01/2024 9:27 AM EDT) POC Urine Specific [place] <=1.005(A) 1.010, 1.015, 1.020, 1.025 10/01/2024 9:21 AM EDT [facility] POC Urine Leukocyte Esterase Negative Negative 10/01/2024 9:21 AM EDT [facility] POC Urine Nitrite Negative Negative 10/01/2024 9:21 AM EDT [facility] POC Urine pH 6.0 5.0, 6.0, 6.5, 7.0, 7.5, 8.0, 8.5, 5.5 10/01/2024 9:21 AM EDT [facility] POC Urine Protein Trace(A) Negative 10/01/2024 9:21 AM EDT [facility] POC Urine Glucose Negative Negative 10/01/2024 9:21 AM EDT [facility] POC Urine Ketones Negative Negative 10/01/2024 9:21 AM EDT [facility] POC Urine Urobilinogen 0.2 E.U./dL 10/01/2024 9:21 AM EDT [facility] POC Urine Bilirubin Negative Negative 10/01/2024 9:21 AM EDT [facility] POC Urine Blood/HGB Moderate(A) Negative 10/01/2024 9:21 AM EDT [facility] Urine 10/01/2024 9:27 AM EDT 10/01/2024 9:21 AM EDT us Carmen Alfred DO POINT OF CARE TEST ORDERABLE S Final Result Performing Organization Address City/[facility] Co de Phone Number [address] [place] [address], [place] * Extra Urine [place] (10/01/2024 9:16 AM EDT) Extra Tube Auto Resulted 10/01/2024 11:01 AM EDT [facility] Urine Urine specimen collection, clean catch / Unknown 10/01/2024 9:16 AM EDT 10/01/2024 9:41 AM EDT us Carmen Alfred DO URINE ORDERABLES Final Resul t Performing Organization Address City/[facility] Co de Phone Number [address] [place] [address], [place] * Extra Urine Culture (10/01/2024 9:16 AM EDT) Extra Tube Auto Resulted 10/01/2024 11:01 AM EDT [facility] Urine Urine specimen collection, clean catch / Unknown 10/01/2024 9:16 AM EDT 10/01/2024 9:41 AM EDT us Miladjarod Alfred DO URINE ORDERABLES Final Resul t Performing Organization Address [facility] de Phone Number [address] [place] [address], [place] * Extra Urine (10/01/2024 9:16 AM EDT) Extra Tube Auto Resulted 10/01/2024 11:01 AM EDT [facility] Urine Urine / Unknown 10/01/2024 9 :16 AM EDT 10/01/2024 9:41 AM EDT us Carmen Alfred DO URINE ORDERABLES Final Resul t Performing Organization Address [facility] de Phone Number [address] [place] [address], [place] * CT abdomen and pelvis with [...] Tube Auto Resulted 10/01/2024 9:01 AM EDT [facility] Blood Venous blood / Unknown 10/01/2024 7:38 AM EDT 10/01/2024 7:42 AM EDT us Carmen Alfred DO LAB BLOOD ORDERABLES Final R esult [facility] [address] [place] [address], [place] * (ABNORMAL) CBC auto differential (10/01/2024 7:38 AM EDT) WBC 9.3 4 - 11 x10E9/L 10/01/2024 7:50 AM EDT [facility] RBC Count 4.74 3.8 - 5.2 X10E12/L 10/01/2024 7:50 AM EDT [facility] Hemoglobin 14.1 11.7 - 15.5 g/dL 10/01/2024 7:50 AM EDT [facility] Hematocrit 41.7 35 - 47 % 10/01/2024 7:50 AM EDT [facility] MCV 88 80 - 100 fL 10/01/2024 7:50 AM EDT [facility] MCH 29.8 27 - 34 pg 10/01/2024 7:50 AM EDT [facility] MCHC 33.9 32 - 36 g/dL 10/01/2024 7:50 AM EDT [facility] RDW 13.2 11.5 - 15 % 10/01/2024 7:50 AM EDT [facility] Platelet Count 376 150 - 450 X10E9/L 10/01/2024 7:50 AM EDT [facility] MPV 7.7 7 - 12 fL 10/01/2024 7:50 AM EDT [facility] Neutrophils % 65.7 % 10/01/2024 7:50 AM EDT [facility] Lymphocytes % 18.1 % 10/01/2024 7:50 AM EDT [facility] Monocytes % 14.3 % 10/01/2024 7:50 AM EDT [facility] Eosinophils % 1.2 % 10/01/2024 7:50 AM EDT [facility] Basophils % 0.7 % 10/01/2024 7:50 AM EDT [facility] Neutrophils Absolute (A) 6.1 1.5 - 6.6 10*3/uL 10/01/2024 7:50 AM EDT [facility] Lymphocytes Absolute 1.7 1.0 - 3.5 10*3/uL 10/01/2024 7:50 AM EDT [facility] Monocytes Absolute 1.3(H) 0.0 - 0.9 10*3/uL 10/01/2024 7:50 AM EDT [facility] Eosinophils Absolute 0.1 0.0 - 0.4 10*3/uL 10/01/2024 7:50 AM EDT [facility] Basophils Absolute 0.1 0.0 - 0.2 10*3/uL 10/01/2024 7:50 AM EDT [facility] Differential Type AUTOMATED DIFFERENTIAL 10/01/2024 7:50 AM EDT [facility] Blood Venous blood / Unknown Venipuncture / Unknown 10/01/2024 7:38 AM EDT 10/01/2024 7:41 AM EDT us Carmen Alfred DO LAB BLOOD ORDERABLES Final R esult [address] [place] [address], [place] * Magnesium (10/01/2024 7:38 AM EDT) MAGNESIUM 1.9 1.8 - 2.6 mg/dL 10/01/2024 8:02 AM EDT [facility] Blood Venous blood / Unknown Venipuncture / Unknown 10/01/2024 7:38 AM EDT 10/01/2024 7:41 AM EDT us Carmen Alfred DO LAB BLOOD ORDERABLES Final R esult Performing Organization Address City/[facility]/ZIP Co de Phone Number [address] [place] [address], [place] * Lipase (10/01/2024 7:38 AM EDT) LIPASE 32 17 - 40 U/L 10/01/2024 8:00 AM EDT [facility] Blood Venous blood / Unknown Venipuncture / Unknown 10/01/2024 7:38 AM EDT 10/01/2024 7:41 AM EDT us Carmen Alfred DO LAB BLOOD ORDERABLES Final R esult Performing Organization Address City/[facility]/ZIP Co de Phone Number [address] [place] [address], [place] * (ABNORMAL) Comprehensive metabolic panel (10/01/2024 7:38 AM EDT) SODIUM 137 134 - 146 mmol/L 10/01/2024 8:02 AM EDT [facility] POTASSIUM 3.4(L) 3.5 - 5.0 mmol/L 10/01/2024 8:02 AM EDT [facility] CHLORIDE 102 98 - 109 mmol/L 10/01/2024 8:02 AM EDT [facility] CARBON DIOXIDE 25 22 - 32 mmol/L 10/01/2024 8:02 AM EDT [facility] ANION GAP 10 5 - 15 mmol/L 10/01/2024 8:02 AM EDT [facility] BLOOD UREA NITROGEN 20 5 - 27 mg/dL 10/01/2024 8:02 AM EDT [facility] CREATININE 0.89 0.40 - 1.00 mg/dL 10/01/2024 8:02 AM EDT [facility] Comment:METHOD TRACEABLE TO IDMS STANDARD GLUCOSE 111(H) 65 - 99 mg/dL 10/01/2024 8:02 AM EDT [facility] CALCIUM 8.9 8.5 - 10.5 mg/dL 10/01/2024 8:02 AM EDT [facility] TOTAL PROTEIN 6.6 6.0 - 8.0 g/dL 10/01/2024 8:02 AM EDT [facility] ALBUMIN 3.5 3.2 - 5.3 g/dL 10/01/2024 8:02 AM EDT [facility] ALKALINE PHOSPHATASE 69 39 - 130 U/L 10/01/2024 8:02 AM EDT [facility] AST 14 <=41 U/L 10/01/2024 8:02 AM EDT [facility] ALT 20 <=31 U/L 10/01/2024 8:02 AM EDT [facility] BILIRUBIN,TOTAL 0.4 0.3 - 1.2 mg/dL 10/01/2024 8:02 AM EDT [facility] EGFR Non-Race Dependent 72 >=60 ml/min/1.7 3sq.m 10/01/2024 8:02 AM EDT [facility] Comment: eGFR not reported due to non-numeric value for Creatinine. Reported eGFR is based on the CKD-EPI 2020 equation that does not use a race coefficient. Blood Venous blood / Unknown Venipuncture / Unknown 10/01/2024 7:38 AM EDT 10/01/2024 7:41 AM EDT us Carmen Alfred DO LAB BLOOD ORDERABLES Final R esult [facility] [address] [place] [address], from Last 3 Months Insurance MEDICARE COMMERCIAL Care Teams Medicine Assistant Relationship Specialty Start Date End Date Celia Blank MD [address] [place] [id number] PCP - General Family Medicine 10/01/24
[2024-12-11 18:26] LABS: Glucose Urine UA NEGATIVE (NEGATIVE)
--- NOTE | 2024-12-11 18:27 | CT_ITS ---
The [address] [address] Patient Name: KARLENE JIMENEZ MRN: [id number] date: 1960 Sex: F Assigned Patient Location: ER Current Patient Location: ER Accession/Order Number: [id number] Exam Date: 12/11/2024 19:21 Report Date: 12/11/2024 19:50 At the request of: NOVA PALAFOX DO Procedure: CT abdomen pelvis w con CT Abdomen and Pelvis withcontrast TECHNIQUE: Axial imaging with 2-D reconstruction.100 cc of Omni 300. The CT exam was performed using one or more the following dose reduction techniques: Automated exposure control, adjustment of the MA and/or Kv according to patient size, or use of the iterative reconstruction technique. COMPARISON: 11/12/2024 History: Left flank pain. Possible UTI. History of bladder cancer surgery 4 weeks ago LIMITATIONS: None LOWER THORAX Unremarkable LIVER: Unremarkable GALLBLADDER: No gallbladder abnormality identified. BILE DUCTS: No dilatation SPLEEN: Unremarkable PANCREAS: Unremarkable ADRENAL GLANDS: Unremarkable KIDNEYS:5 mm nonobstructing right renal calculus. No obstructing stone. AORTA: No abdominal aortic aneurysm identified. Extensive atherosclerosis RETROPERITONEUM: No significant retroperitoneal abnormalities identified. MESENTERY:Unremarkable STOMACH:Unremarkable SMALL BOWEL: The small bowel loops are nondistended. APPENDIX: Appendectomy changes identified. COLON: Diverticulosis URINARY BLADDER: Nondistended REPRODUCTIVE SYSTEM: Removal of ovaries. PNEUMOPERITONEUM: None PERITONEAL FLUID:None BONY STRUCTURES: Degenerative change ABDOMINAL WALL: Unremarkable CT/CT abdomen pelvis w con IMPRESSION: No acute findings. No focal inflammatory changes. Diverticulosis. No obstructive uropathy. Impression dictated by: Delvin Burrell M.D. 12/11/2024 7:50 PM Dictation Location: [facility] Electronically authenticated by: [id number] Y Date: 12/11/2024 19:50
[2024-12-11 18:33] LABS: Crystals Seen? None Seen #/HPF (None Seen)
[2024-12-11 18:34] LABS: Cast Seen? NONE SEEN #/LPF (NONE SEEN); Urine Culture Indicated YES-FRMC
[2024-12-11] MEDS: 0.9 % SODIUM CHLORIDE 1,000 ML 1000 ML IV (18:51)
[2024-12-11 18:53] LABS: Hematocrit 31.2 % (36.0-48.0); Hemoglobin 10.1 g/dL (12.0-16.0); Immature Granulocytes Abs Auto 0.08 10^3/uL (0.00-0.03); Immature Granulocytes Pct Auto 0.5 % (0.0-0.5); Lymphocytes Absolute Auto 1.9 10^3/uL (1.2-3.8); Mean Corpuscular HGB Conc 32.4 g/dL (29.9-35.2); Mean Corpuscular Hemoglobin 28.3 pg (26.7-34.0); Mean Corpuscular Volume 87.4 fL (81.0-99.0); Platelet Count 529 10^3/uL (150-450); Red Blood Count 3.57 10^6/uL (4.20-5.40); White Blood Count 15.7 10^3/uL (4.0-11.0)
[2024-12-11 19:08] LABS: Alanine Aminotransferase 15 U/L (14-59); Albumin Globulin Ratio 0.6; Albumin Level 2.5 g/dL (3.4-5.0); Alkaline Phosphatase 90 U/L (46-116); Anion Gap 14.2; Aspartate Amino Transferase 8 U/L (15-37); Blood Urea Nitrogen 13.0 mg/dL (7.0-18.0); Calcium 8.7 mg/dL (8.5-10.1); Carbon Dioxide 27.5 mmol/L (21.0-32.0); Chloride 104 mmol/L (98-107); Estimated GFR (African America >60 (>=60 mL/min/1.73m^2); Estimated GFR (Non-African Ame 58 (>=60 mL/min/1.73m^2); Globulin 4.0 g/dL; Glucose 144 mg/dL (74-106); Potassium 3.7 mmol/L (3.5-5.1); Sodium 142 mmol/L (136-145); Total Protein 6.5 g/dL (6.4-8.2)
--- NOTE | 2024-12-11 19:09 | PC.NURSE ---
i walked into this patient's room to find this patient awake and alert lying on her right side on the bed. this patient updated that we continue your IV atb and iv fluids. this patient voices no concerns or needs and shows no signs of distress
--- NOTE | 2024-12-11 19:12 | ED.GENADUL1 ---
HPI HPI - General Adult General Chief complaint: Urogenital-Female Stated complaint: POSSIBLE UTI Time Seen by Provider: 12/11/24 18:19 Source: patient Mode of arrival: walk-in Limitations: no limitations History of Present Illness HPI narrative: Patient is a 64-year-old female, history significant for bladder cancer s/p tumor resection 1 month ago, presenting to the emergency department for concerns of UTI. Patient states that she was diagnosed with a UTI about a week ago. She just finished her course of antibiotics 2 days ago. However, she is having persistent symptoms. She states that she feels no better. She actually feels significantly worse. She states she feels hot and sweaty. She states she has worsening pain in the lower part of her abdomen and now includes the left flank. Denies dysuria or hematuria. No chest pain or shortness of breath. She is unsure of the antibiotic that she recently took. Related Data Home Medications ?Medication ?Instructions ?Recorded ?Confirmed albuterol sulfate 2.5 mg/3 mL 2.5 mg inhalation Q6H PRN 01/19/24 11/12/24 (0.083 %) solution for nebulization shortness of breath or wheezing albuterol sulfate 90 mcg/actuation 2 puff inhalation Q4H PRN 01/19/24 11/12/24 aerosol inhaler shortness of breath or wheezing hydrocodone 5 mg-acetaminophen 325 1 tab PO Q8H 01/19/24 11/12/24 mg tablet tizanidine 4 mg tablet 4 mg PO Q8H PRN muscle spasticity 01/19/24 11/12/24 omeprazole 20 mg capsule,delayed 20 mg PO DAILY 02/01/24 11/12/24 release fluticasone fur. 200 mcg-umeclid 1 inh inhalation DAILY 04/22/24 11/12/24 62.5 mcg-vilant 25 mcg inhalat.powder (Trelegy Ellipta) bupropion HCl 300 mg 24 hr tablet, 300 mg PO DAILY 09/30/24 11/12/24 extended release nitrofurantoin 100 mg PO Q12H 11/12/24 11/12/24 monohydrate/macrocrystals 100 mg capsule varenicline tartrate 0.5 mg (11)-1 1 ea PO BID 11/12/24 11/12/24 mg (42) tablets in a dose pack Previous Rx's ?Medication ?Instructions ?Recorded acetaminophen 325 mg tablet 650 mg (2 x 325 mg) PO Q4H PRN 11/13/24 (Tylenol) pain 30 days #180 tabs Allergies Allergy/AdvReac Type Severity Reaction Status Date / Time Sulfa (Sulfonamide Allergy Unknown Unknown Verified 11/12/24 03:34 Antibiotics) levofloxacin (From Levaquin) Allergy Rash Verified 11/12/24 03:34 acetaminophen (From Percocet) AdvReac Intermediate Vomiting Verified 11/12/24 03:34 oxycodone (From Percocet) AdvReac Intermediate Vomiting Verified 11/12/24 03:34 Opioid HPI Opioid Management Most Recent Opioid Data: Last Pain Scale 4 Today, 18:50 Last ED Pain Assessment Today, 18:50 Last ORT Total Score 1 11/12/24, 11:44 Last ORT Risk Category Low Risk 11/12/24, 11:44 Review of Systems ROS Status of ROS 10 or more systems reviewed and unremarkable except as noted in history and below PFSH [facility] Medical History (Updated 11/17/24 @ 00:00 by ) Aspirin long-term use ?Z79.82 - 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 (ICD-10) Persistent headaches ?R51.9 - Headache, unspecified (ICD-10) GERD (gastroesophageal reflux disease) ?K21.9 - Gastro-esophageal reflux disease without esophagitis (ICD-10) Gross hematuria ?R31.0 - Gross hematuria (ICD-10) Hematuria ?R31.9 - Hematuria, unspecified (ICD-10) Acute urinary retention ?R33.8 - Other retention of urine (ICD-10) Asthma ?J45.909 - Unspecified asthma, uncomplicated (ICD-10) Peptic ulcer ?K27.9 - Peptic ulcer, site unspecified, unspecified as acute or chronic, without hemorrhage or perforation (ICD-10) Lumbago ?M54.50 - Low back pain, unspecified (ICD-10) Cataract (lens) fragments in eye following cataract surgery ?H59.029 - Cataract (lens) fragments in eye following cataract surgery, unspecified eye (ICD-10) 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 (ICD-10) Surgical History History of detached retina repair ?Z98.890 - Other specified postprocedural states (ICD-10) ?Z86.69 - Personal history of other diseases of the nervous system and sense organs (ICD-10) H/O fine needle aspiration with imaging guidance ?Z98.890 - Other specified postprocedural states (ICD-10) Status post discectomy ?Z98.890 - Other specified postprocedural states (ICD-10) History of bunionectomy ?Z98.890 - Other specified postprocedural states (ICD-10) H/O bilateral oophorectomy ?Z90.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, bilateral (ICD-10) History of tonsillectomy ?Z90.89 - Acquired absence of other organs (ICD-10) Family History (Updated 11/12/24 @ 13:02 by DEVIKA CHU) Father Cancer Mother Family history of diabetes mellitus Family history of hypertension Brother Family history of hypertension Brother Family history of hypertension Social History (Updated 11/12/24 @ 13:03 by DEVIKA CHU) Smoking status: Current every day smoker Nicotine containing products detail: 1 pack per day smoker. NO ETOH at all. Highest level of school completed/degree received: some college, no degree Little interest or pleasure in doing things: not at all Feeling down, depressed, or hopeless: not at all Exam Narrative Exam Narrative: CONSTITUTIONAL: Patient appears ill but nontoxic. Answering questions and following commands appropriately. Feels warm to the touch. SKIN: Was warm and dry. EYES: No conjunctival pallor. No scleral icterus EARS, NOSE, THROAT: Moist oral mucosa RESPIRATORY: Clear to auscultation bilaterally, no wheezes, crackles, or stridor, no use of accessory muscles CARDIOVASCULAR: Normal rate and regular rhythm. There is no S3, S4, murmur, rub. GASTROINTESTINAL: There is tenderness to palpation in the suprapubic region without rebound tenderness or guarding. Positive left CVA tenderness. MUSCULOSKELETAL: No peripheral edema NEUROLOGIC: Patient is awake and alert. Facies were symmetrical. Constitutional Vital Signs, click to edit/add: Last Vital Signs Temp 99.1 F 12/11/24 18:09 Pulse 97 H 12/11/24 18:09 Resp 18 12/11/24 18:09 BP 139/87 12/11/24 18:09 Pulse Ox 95 12/11/24 18:09 O2 Del Method Room Air 12/11/24 18:09 Course Vital Signs Vital signs: Vital Signs Temperature 99.1 F 12/11/24 18:09 Pulse Rate 97 H 12/11/24 18:09 Respiratory Rate 18 12/11/24 18:09 Blood Pressure 139/87 12/11/24 18:09 Pulse Oximetry 95 12/11/24 18:09 Oxygen Delivery Method Room Air 12/11/24 18:09 Temperature 99.1 F 12/11/24 18:09 Pulse Rate 97 H 12/11/24 18:09 Respiratory Rate 18 12/11/24 18:09 Blood Pressure 139/87 12/11/24 18:09 Pulse Oximetry 95 12/11/24 18:09 Oxygen Delivery Method Room Air 12/11/24 18:09 Medical Decision Making MDM Narrative Medical decision making narrative: Patient is a 64-year-old female, history significant for bladder cancer s/p resection 4 weeks ago and recent treatment for UTI, presenting to the emergency department with worsening UTI symptoms including lower abdominal pain and left flank pain. Her vital signs are within normal limits. She is afebrile and hemodynamically stable. Examination as noted above, however is notable for suprapubic abdominal tenderness and left CVA tenderness. No peritoneal signs. Differential diagnosis includes pyelonephritis, cystitis, complications secondary to recent tumor resection, or other intra-abdominal pathologies. IV was established and laboratory studies were obtained. Repeat UA was obtained. CT abdomen/pelvis with IV contrast was ordered. She was given IV Zofran and 1 L bolus normal saline for symptomatic treatment Urinalysis was suggestive of persistent UTI with large occult blood, leukocyte esterase, 20-50 WBCs, small amount of bacteria. My shift is now coming to an end. She was given a dose of 1 g IV ceftriaxone for empiric treatment of her UTI. At the time of signout, CT abdomen/pelvis and the rest of her laboratory studies were pending Medical Records Medical records reviewed: Yes I reviewed the patient's medical records Lab Data Lab results reviewed: Yes I reviewed the patient's lab results Labs: Lab Results 12/11/24 12/11/24 Range/Units 18:16 18:40 WBC 15.7 H (4.0-11.0) 10^3/uL RBC 3.57 L (4.20-5.40) 10^6/uL Hgb 10.1 L (12.0-16.0) g/dL Hct 31.2 L (36.0-48.0) % MCV 87.4 (81.0-99.0) fL MCH 28.3 (26.7-34.0) pg MCHC 32.4 (29.9-35.2) g/dL RDW 14.2 (11.0-15.0) % Plt Count 529 H (150-450) 10^3/uL MPV 8.9 L (9.5-13.5) fL Neut % (Auto) 78.0 H (43.0-75.0) % Lymph % (Auto) 12.4 L (20.5-60.0) % Mills % (Auto) 8.5 (1.7-12.0) % Eos % (Auto) 0.3 L (0.9-7.0) % Baso % (Auto) 0.3 (0.2-2.0) % Neut # (Auto) 12.2 H (1.4-6.5) 10^3/uL Lymph # (Auto) 1.9 (1.2-3.8) 10^3/uL Mills # (Auto) 1.3 H (0.3-0.8) 10^3/uL Eos # (Auto) 0.1 (0.0-0.7) 10^3/uL Baso # (Auto) 0.1 (0.0-0.1) 10^3/uL Abs Immat Gran (auto) 0.08 H (0.00-0.03) 10^3/uL Imm/Tot Granulo (auto) 0.5 (0.0-0.5) % Sodium 142 (136-145) mmol/L Potassium 3.7 (3.5-5.1) mmol/L Chloride 104 (98-107) mmol/L Carbon Dioxide 27.5 (21.0-32.0) mmol/L Anion Gap 14.2 BUN 13.0 (7.0-18.0) mg/dL Creatinine 0.96 (0.55-1.02) mg/dL Est GFR ( Amer) >60 (>=60 mL/min/1.73m^2) Est GFR (Non-Af Amer) 58 L (>=60 mL/min/1.73m^2) BUN/Creatinine Ratio 13.5 Glucose 144 H (74-106) mg/dL Calcium 8.7 (8.5-10.1) mg/dL Total Bilirubin 0.2 (0.2-1.0) mg/dL AST 8 L (15-37) U/L ALT 15 (14-59) U/L Alkaline Phosphatase 90 (46-116) U/L Total Protein 6.5 (6.4-8.2) g/dL Albumin 2.5 L (3.4-5.0) g/dL Globulin 4.0 g/dL Albumin/Globulin Ratio 0.6 Urine Color Lt. yellow (YELLOW) Urine Clarity Clear (CLEAR) Urine pH 6.0 (5.0-9.0) Ur Specific [place] 1.010 (1.005-1.025) Urine Protein Trace (NEG/TRACE) mg/dL Urine Glucose (UA) Negative (NEGATIVE) mg/dL Urine Ketones Negative (NEGATIVE) mg/dL Urine Occult Blood Large A (NEGATIVE) Urine Nitrite Negative (NEGATIVE) Urine Bilirubin Negative (NEGATIVE) Urine Urobilinogen 0.2 (0.2-1.0) EU/dL Ur Leukocyte Esterase Moderate A (NEGATIVE) Urine RBC 0-2 (0-2) #/HPF Urine WBC 20-50 A (NONE SEEN) #/HPF Ur Squamous Epith Cells Few A (NONE/RARE) #/LPF Urine Crystals None seen (None Seen) #/HPF Urine Bacteria Small A (NONE SEEN) #/HPF Urine Casts None seen (NONE SEEN) #/LPF Urine Mucus Small A (NONE SEEN) Ur Culture Indicated? Yes-[facility] – [place] Discharge Plan Discharge Patient Disposition: Still a Patient
[2024-12-11 19:30] VITALS: BP 93/49; PULSE 72; O2SAT 95
--- OUTSIDE RECORDS SUMMARY | 2024-12-11 19:45 | XMS_ITS | CCD ---
Author Organization [facility] CliniSytn Care Team Providers Care Telemetry Rn Name Role Phone CORNELIUS GARRISON Primary Care [...] Care Provider DO Alexandro Galvez Attending Provider [phone] Cornelius Garrison MD Primary Care Provider Ofelia Arceo MD Unavailable Cornelius Garrison MD Primary Care Provider Alexandro Galvez DO Attending Provider [phone] Cornelius Garrison MD Attending Provider [phone] Cornelius Garrison MD Primary Care Provider [phone] Geoff Walker DO Unavailable GEOFF WALKER Attending Unavailable CORNELIUS GARRISON Referring Unavailable KANE PARKER Attending Unavailable OFELIA ARCEO Referring Unavailable Cornelius Garrison MD Attending Provider [phone] Denilson TAVERAS, Duong Wagoner Attending Unavailable Cornelius Garrison MD [facility] Care Gelava stephany Oreilly MD, Duong Wagoner Attending Unavailable Cornelius Garrison MD [facility] Gelava stephany Oreilly MD, Duong Wagoner Attending Unavailable Bladimir TAVERAS, [facility] Unava ilkrystal Garrison MD, [facility] Unava ilable Denilson TAVERAS, Duong Wagoner Attending Unavailable Bladimir TAVERAS, [facility] Unava ilable Denilson TAVERAS, Duong Wagoner Attending Unavailable Bladimir TAVERAS, [facility] Unava stephany Garrison MD, [facility] Adis PA-C, Ofelia Grace Attending Unavailab jass Garrison MD, [facility] Unava ilable Adis PA-C, Ofelia Grace Attending Unavailab jass Garrison MD, [facility] Unava ilable Adis PA-C, Ofelia Grace Attending Unavailab jass Garrison MD, [facility] Unava ilable Alexey Morgan MD Admitting Unavailable Garwood PA-C, Sravani Benson Attending U elizabeth Garrison MD, [facility] Unava ilable Adis PA-C, Ofelia Grace Admitting Unavailab le Adis PA-C, Ofelia Grace Attending Unavailab jass Garrison MD, [facility] Unava ilable Adis PA-C, Ofelia Grace Attending Unavailab jass Oreilly MD, Duong Wagoner Attending Unavailable Bladimir TAVERAS, [facility] Unava ilable CORNELIUS GARRISON Primary Care Unavailable TYRONE HAMM Attending Unavailable Bladimir TAVERAS, Cornelius Ward Primary Care Provider [phone] Cornelius Garrison MD Attending Provider Vera Hdez CMA Attending Provider Unavailtomas Oleary MD, Carlin Waldrop Attending Provider Delvin Campbell DO Attending Provider Gianni France DO Attending Provider Brie Mckay MD Attending Provider BRIE MCKAY Attending Unavail able Roselyn Shah Attending Unavailable BRIE MCKAY Attending Unavail able NKANSAH-AMANKRA, BRIE Referring Unavail able Roselyn Shah Attending Unavailable CORNELIUS GARRISON Referring Unavailable GalRoselyn saab Attending Unavailable CORNELIUS GARRISON Referring Unavailable Bladimir Cornelius E Primary Care Unavailable Alexandro Galvez Admitting Unavailable Alexandro Galvez Attending Unavailable Cornelius Garrison E Attending Unavailable Anoop Garrisonia E Admitting Unavailable Cornelius Garrison E Attending Unavailable Bladimir, Cornelius E Admitting Unavailable Nkansah-Amankra, Brie Admitting Unavail able Nkansah-Amankra, Brie Attending Unavail able Bladimir, Cornelius E Attending Unavailable Bladimir, Cornelius E Admitting Unavailable Garrison, Cornelius E Attending Unavailable Bladimir, Cornelius E Admitting Unavailable Bladimir, Cornelius E Primary Care Unavailable Allergies Allergy Classification Reported Allergen(s) Allergy Type Date of Onset Reaction(s) Facility (6 sources) Acetaminophen / oxyCODONE; Translations: [acetaminophen-oxy codone] Drug Allergy Nausea (finding) [facility] [place] (9 sources) Alendronate; Translations: [alendronate] Drug Allergy 03-29-20 Muscle pain (finding) [facility] [place] (20 sources) Clarithromycin; Translations: [clarithromycin] Drug Allergy 07-31-19 24 Unknown (qualifier value) [facility] [place] (20 sources) levoFLOXacin; Translations: [levofloxacin] Drug Allergy 07-31-19 24 Eruption of skin (disorder) [facility] [place] (7 sources) Sulfonamides (Antibiotic); Translations: [sulfa drugs] Drug allergy Unknown (qualifier value) [facility] [place] (1 source) Acetaminophen / oxyCODONE Drug Allergy 03-25-20 16 [facility] Rep[facility] (1 source) Alendronate Drug Allergy 03-18-20 16 [facility] (1 source) Clarithromycin Drug Allergy 03-25-20 16 [facility] (1 source) levoFLOXacin Drug Allergy 03-25-20 16 [facility] (1 source) Quinolones (Antibiotic) Drug allergy (disorder) 03-25-20 16 [facility] (1 source) Sulfonamides (Antibiotic) Drug allergy (disorder) 05-01-19 14 [facility] (1 source) Acetaminophen Drug Allergy 07-31-19 24 [facility] (17 sources) Alendronate Drug Allergy 07-31-19 24 [facility] (17 sources) oxyCODONE Drug Allergy 07-31-19 24 [facility] (18 sources) Sulfonamides (Antibiotic); Translations: [SULFA (SULFONAMIDE ANTIBIOTICS)] Allergy to substance 07-31-19 Comment:as a young child, pt. cannot recall reaction [facility] (17 sources) Biaxin XL *MACROLIDES* Allergy to substance 07-28-19 [facility] (4 sources) Acetaminophen / oxyCODONE; Translations: [OXYCODONE-ACETAMI NOPHEN] Drug Allergy 06-05-19 Nausea Only [facility] (3 sources) Clarithromycin Allergy to substance 03-29-20 [facility] (3 sources) Lactobacillus acidophilus Drug Allergy 06-05-19 [facility] (3 sources) Quinolones (Antibiotic) Drug Intolerance 03-11-20 10 Rash [facility] (3 sources) Sulfonamides (Antibiotic) Drug Intolerance 03-11-20 10 [facility] (1 source) Ciprofloxacin; Translations: [Cipro] Drug Allergy [facility] Repository (1 source) symbalta; Translations: [symbalta] Propensity to adverse reactions to drug (disorder) [facility] Repository (6 sources) fluoroquinolone antibiotics Allergy to substance 10-03-19 [facility] Medications Current Medications Medication Drug Class(es) Dates Sig (Normalized) Sig (Original) acetaminophen 325 mg / HYDROcodone bitartrate 5 mg oral tablet (20 sources) Opioid Agonist Start: 11-17-2024 take 1 tablet by mouth three times daily Hydrocodone-Aceta minophen 5-325 mg tablet Active 1 TAB PO Three times daily November 17, 2024 Complies with drug therapy Start: 10-18-2024 End: 11-15-2024 take 1 tablet by mouth three times daily Hydrocodone-Acetaminophen 5-325 mg table t Discontinued 1 TAB PO Three times daily October 18, 2024 November 15, 2024 3:06pm Start: 04-21-2024 End: 10-16-2024 take 1 tablet [...] April 19, 2024 2:01pm Start: 04-20-2024 End: 01-10-2025 take 1 tablet by mouth three times [...] Three times daily August 03, 2023 Start: 12-17-2021 End: 07-31-2023 take 1 tablet by mouth three times daily Hydrocodone-Acetaminophen 5-325 mg table t Discontinued 1 TAB PO Three times daily May 26, 2023 June 26, 2023 12:47pm take 1 tablet by margarito th in the morning, then take 1 tablet by mouth in the evening, then take 1 tablet by mouth at bedtime HYDROcodone-acetaminophen ([place]) 5-325 MG tablet Take 1 tablet by mouth in the morning and 1 tablet in the evening and 1 tablet before bedtime. Active amitriptyline hydrochloride 50 mg oral tablet (20 sources) Tricyclic Antidepressant Start: 03-29-2024 take 1 tablet by mouth once daily at bedtime Amitriptyline 50 mg tablet Active 50 MG PO Daily at bedtime March 29, 2024 10:36am FreeTextSi tablet at bedtime Orally Once a day; Note: Source Status: Start; Refills: 3; Qty: 90 Tablet; Provider: Bladimir Ward Complies with drug therapy Start: 12-17-2021 End: 02-08-2024 take 1 tablet by mouth once daily at bedtime Amitriptyline 50 mg tablet Discontinued 50 MG PO Daily at bedtime July 28, 2023 12:00am February 08, 2024 1:58pm FreeTextSi tablet at bedtime Orally Once a day; Note: Source Status: Start; Refills: 3; Qty: 90 Tablet; Provider: Bladimir Ward 24 hr buPROPion hydrochloride 300 mg extended release oral tablet (20 sources) Aminoketone Start: 04-15-2024 take 1 tablet by mouth once daily Bupropion Hcl 300 mg tablet extended release 24 hr Active 300 MG PO Daily April 15, 2024 1:00am Complies with drug therapy Start: 03-11-2024 End: 04-15-2024 take 1 tablet by mouth once daily Bupropion Hcl 150 mg tablet extended release 24 hr Discontinued 150 MG PO Daily March 11, 2024 1:00am April 15, 2024 4:39pm cefdinir 300 mg oral capsule (17 sources) Cephalosporin Antibacterial Start: 12-02-2024 take 1 capsule by mouth twice daily Cefdinir 300 mg capsule Active 300 MG PO Twice daily December 02, 2024 12:29pm Complies with drug therapy Start: 01-09-2024 End: 02-08-2024 take 1 capsule by mouth twice daily Cefdinir 300 mg capsule Discontinued 300 MG PO Twice daily January 09, 2024 12:00am February 08, 2024 1:53pm diclofenac potassium 50 mg oral tablet (1 source) Nonsteroidal Anti-inflammatory Drug Start: 12-17-2021 take 1 tablet by mouth twice daily diclofenac potassium 50 mg oral tablet 50 mg = 1 tab(s), Oral, BID, Refills(s) 0 Start Date: 12/17/21 Status: Ordered Fluticasone-Umecl idin-Vilanter (20 sources) Start: 04-15-2024 Fluticasone-Umec lidin-Vilanter (Trelegy Ellipta) 200-62.5-25 mcg blister with device Active 1 INH INHALATION Daily April 15, 2024 4:40pm Rinse after use Complies with drug therapy Start: 04-15-2024 Start: 04-15-2024 Fluticasone-Um eclidin-Vilanter (Trelegy Ellipta) 200-62.5-25 mcg blister with device Active 1 INH INHALATION Daily April 15, 2024 4:40pm Rinse after use Start: 04-15-2024 Fluticasone-Um eclidin-Vilanter (Trelegy Ellipta) 200-62.5-25 mcg blister with device Active 1 INH INHALATION Daily April 15, 2024 3:40pm Rinse after use Start: 03-29-2024 End: 04-15-2024 Wpjoyjrwhgu-Lbxogdtzy-Eulrcw er (Trelegy Ellipta) 200-62.5-25 mcg blister with device Discontinued 1 INH INHALATION Daily 60 March 29, 2024 10:38am April 15, 2024 4:41pm Rinse after use Start: 03-29-2024 End: 04-15-2024 Igjvbcmkngn-Aeoukyduv-Jarmzw er (Trelegy Ellipta) 200-62.5-25 mcg blister with device Discontinued 1 INH INHALATION Daily 60 March 29, 2024 9:38am April 15, 2024 3:41pm Rinse after use Start: 03-11-2024 End: 03-29-2024 Ijguomrhqrh-Xynenlqex-Pijdbo er (Trelegy Ellipta) 200-62.5-25 mcg blister with device Discontinued 1 INH INHALATION Daily 180 March 11, 2024 1:00am March 29, 2024 10:38am Rinse after use Start: 03-11-2024 End: 03-29-2024 Azghgwxqcnu-Kzpugvpov-Lppiuu er (Trelegy Ellipta) 200-62.5-25 mcg blister with device Discontinued 1 INH INHALATION Daily 180 March 11, 2024 12:00am March 29, 2024 9:38am Rinse after use nystatin [id number] unt/ml oral suspension (1 source) Polyene Antifungal Start: 12-06-2024 take 1 mL by mouth four times daily Nystatin 100,000 unit/mL suspension Active 5 ML PO Four times daily 60 December 06, 2024 12:00am swish and swallow Complies with drug therapy omeprazole 20 mg delayed release oral capsule (14 sources) Proton Pump Inhibitor Start: 03-11-2024 take 1 capsule by mouth once daily Omeprazole 20 mg capsule,delayed release(DR/EC) Active 20 MG PO Daily March 11, 2024 1:00am Complies with drug therapy Start: 12-22-2021 take 20 mg by mouth once daily Prilosec OTC 20 mg, Oral, Daily, Refills(s) 0 Start Date: 12/22/21 Status: Ordered ondansetron 4 mg disintegrating oral tablet (8 sources) Serotonin-3 Receptor Antagonist Start: 09-27-2024 End: 12-02-2024 take 1 tablet by mouth every eight hours as needed for nausea and vomiting Ondansetron 4 mg tablet,disintegrating Active 4 MG PO Q8H as needed for nausea and vomiting December 02, 2024 2:29pm Complies with drug therapy pantoprazole 40 mg delayed release oral tablet (4 sources) Proton Pump Inhibitor Start: 02-01-2022 take 1 tablet by mouth once daily Pantoprazole [address] Tab 40 mg = 1 tab(s), Oral, Daily, Refills(s) 0 Start Date: 02/01/22 Status: Ordered Repeat number: 1 ProAir HFA 90 mcg/inh inhalation aerosol (3 sources) Start: 12-17-2021 take 2 puff(s) by inhalation every four hours ProAir HFA 90 mcg/inh inhalation aerosol 2 puff(s), Inhalation, q4hr Shortness of breath or wheezing, Refill(s) 0 Start Date: 12/17/21 Status: Ordered Repeat number: 1 Sucralfate (4 sources) Aluminum Complex Start: 02-01-2022 sucralfate tab 1 gm = 1 tab(s), Oral, QIDACHS, Refills(s) 0 Start Date: 02/01/22 Status: Ordered Repeat number: 1 Start: 02-01-2022 sucralfate tab 1 gm = 1 tab(s), Oral, QIDACHS, Refills(s) 0 Start Date: 02/01/22 Status: Ordered Completed/Discontinued Medications Medication Drug Class(es) Dates Sig (Normalized) Sig (Original) albuterol 0.83 mg/ml inhalation solution (20 sources) beta2-Adrenergic Agonist Start: 06-26-2024 End: 09-03-2024 take 3 mL by inhalation every month as needed for wheezing Albuterol Sulfate 2.5 mg /3 mL (0.083 %) solution for nebulization Discontinued 2.5 MG INHALATION Four times daily as needed for shortness of breath or wheezing 360 July 15, 2024 3:15pm September 03, 2024 12:15pm 3ml x 120 doses/month Start: 04-15-2024 End: 06-26-2024 take 2.5 mg by inhalation four times daily as needed for wheezing Albuterol Sulfate 2.5 mg /3 mL (0.083 %) solution for nebulization Discontinued 2.5 MG INHALATION Four times daily as needed for shortness of breath or wheezing 75 June 10, 2024 2:02pm June 26, 2024 [...] every 4 (four) hours if needed Active azithromycin 500 mg oral tablet (6 sources) Macrolide Antimicrobial Start: 10-04-2024 End: 12-02-2024 take 1 tablet by mouth once daily Azithromycin 500 mg tablet Discontinued 500 MG PO Daily 5 October 04, 2024 12:00am December 02, 2024 12:29pm doxycycline hyclate 100 mg oral tablet (16 sources) Tetracycline-class Drug Start: 10-13-2023 End: 11-01-2023 [...] fluticasone propionate 0.044 mg/actuat metered dose inhaler (20 sources) Corticosteroid Start: 01-24-2024 End: 02-08-2024 take [...] 2023 12:00am administer with spacer Fluticasone Propion-Salmeterol (20 sources) Corticosteroid, beta2-Adrenergic Agonist Start: 07-28-2023 End: [...] Refill(s) 6 Start Date: 12/17/21 Status: Ordered Repeat number: 1 Start: 12-17-2021 take 2 puff(s) by in [...] with spacer methylPREDNISolone 4 mg oral tablet (15 sources) Corticosteroid Start: 11-01-2023 End: 12-05-2023 Methylprednisolone [...] for 6 days Pneumoc 20-Agnes Conj-Dip Cr(Pf) (10 sources) Start: 03-11-2024 End: 03-29-2024 inject 1 [...] 2024 8:52am predniSONE 20 mg oral tablet (14 sources) Start: 01-09-2024 End: 02-08-2024 take 1 tablet by mouth twice daily Prednisone 20 mg tablet Discontinued 20 MG PO Twice daily January 09, 2024 12:00am February 08, 2024 1:53pm pregabalin 50 mg oral capsule (17 sources) Start: 07-31-2023 End: 07-31-2023 take 1 capsule by mouth twice daily Pregabalin (Lyrica) 50 mg capsule Discontinued 50 MG PO Twice daily 60 30 July 31, 2023 12:00am July 31, 2023 4:27pm [id number] Antigen-As01e (Pf) (6 sources) Start: 03-11-2024 End: 03-29-2024 inject 1 [...] March 29, 2024 9:04am 60 actuat tiotropium 0.93842 mg/actuat inhalation spray (20 sources) Anticholinergic Start: 02-08-2024 End: 03-11-2024 take 1 puff(s) by inhalation once daily in the morning Tiotropium [place] (Spiriva Respimat) 1.25 mcg/actuation mist Discontinued 2 PUFF INHALATION Every morning March 08, 2024 10:50am March 11, 2024 4:50pm tiZANidine 4 mg oral tablet (20 sources) Central alpha-2 Adrenergic Agonist Start: 12-17-2021 End: 11-15-2024 take 1 tablet by mouth three times daily Tizanidine 4 mg tablet Discontinued 4 MG PO Three times daily May 26, 2023 1:10pm August 28, 2023 3:10pm Problems Active Problems Problem Classification Problem Date Documented Da te Episodic/Chronic Abdominal hernia (1 source) Diaphragmatic hernia without obstruction or gangrene; Translations: [DIAPH HERNIA W/O OBST/GANGRENE] Onset: 2 Episodic Abdominal pain (20 sources) Epigastric pain; Translations: [Epigastric pain] Onset: 2 Resolved: 5 Episodic Anal and rectal conditions (1 source) Rectal polyp; Translations: [RECTAL POLYP] Onset: 2 Episodic Asthma (20 sources) Asthma; Translations: [Uncomplicated moderate persistent asthma] Onset: 5 Resolved: 5 12-17-2021 Chronic Cancer of bladder (9 sources) Malignant tumor of urinary bladder; Translations: [Malignant neoplasm of bladder, unspecified] Onset: 5 Chronic Chronic obstructive pulmonary disease and bronchiectasis (20 sources) Chronic obstructive lung disease; Translations: [Chronic obstructive pulmonary disease, unspecified] Onset: 2 Resolved: 5 12-17-2021 Chronic Digestive congenital anomalies (1 source) Other specified congenital malformations of intestine; Translations: [OTH SPEC CONGEN MALFORM INTESTINE] Onset: 2 Chronic Disorders of lipid metabolism (8 sources) Very low density lipoprotinemia; Translations: [Pure hyperglyceridemia] Onset: 5 Resolved: 5 12-17-2021 Chronic Diverticulosis and diverticulitis (4 sources) Diverticulosis of large intestine without perforation or abscess without bleeding; Translations: [Diverticulosis of sigmoid colon] Onset: 2 02-21-2022 Chronic E Codes: Natural/environment (20 sources) Tick bite; Translations: [Bitten or stung by nonvenomous insect and other nonvenomous arthropods, initial encounter] Onset: 5 Resolved: 5 10-13-2023 Episodic Esophageal disorders (16 sources) Gastroesophageal reflux disease without esophagitis; Translations: [Gastro-esophageal reflux disease without esophagitis] Onset: 2 Resolved: 5 Chronic Fever of unknown origin (7 sources) Disorder characterized by fever; Translations: [Fever, unspecified] Onset: 5 12-02-2024 Episodic Gastritis and duodenitis (1 source) Unspecified chronic gastritis without bleeding; Translations: [UNS CHRONIC GASTRITIS W/O BLEEDING] Onset: 2 Chronic Gastroduodenal ulcer (except hemorrhage) (3 sources) Antral ulcer 02-21-2022 Chronic Genitourinary symptoms and ill-defined conditions (9 sources) Blood in urine; Translations: [Hematuria, unspecified] Onset: 5 11-04-2024 Episodic Headache; including migraine (20 sources) Headache; Translations: [Headache] Onset: 5 Resolved: 5 10-13-2023 Episodic Immunizations and screening for infectious disease (16 sources) Patient encounter status; Translations: [Encounter for immunization] Onset: 5 Resolved: 5 03-11-2024 Episodic Mood disorders (8 sources) Depressive disorder; Translations: [Depression] Onset: 5 Resolved: 5 12-17-2021 Chronic Noninfectious gastroenteritis (12 sources) Gastroenteritis; Translations: [Noninfective gastroenteritis and colitis, unspecified] 10-08-2024 Episodic Osteoarthritis (20 sources) Primary gonarthrosis, bilateral; Translations: [Bilateral primary osteoarthritis of knee] Onset: 5 Resolved: 5 01-24-2024 Chronic Other aftercare (1 source) Other superintendent terminal (current) drug therapy; Translations: [OTH [facility] CURRENT DRUG THERAPY] Onset: 2 Episodic Other aftercare (12 sources) Long-term current use of inhaled steroid; Translations: [superintendent terminal (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 of 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] Onset: 5 Resolved: 5 04-15-2024 Episodic Other aftercare (3 sources) superintendent terminal (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 of 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; Translations: [Long-term (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 of steroids] 04-15-2024 Episodic Other bone disease and musculoskeletal deformities (8 sources) Osteopenia; Translations: [Other specified disorders of bone density and structure, unspecified site] Onset: 5 Resolved: 5 12-17-2021 Episodic Other bone disease and musculoskeletal deformities (1 source) Other specified disorders of bone density and structure, unspecified site; Translations: [OTH D/O BONE DEN STRUCT UNS SITE] Onset: 2 Episodic Other connective tissue disease (13 sources) Pain in right lower limb; Translations: [Pain in right leg] Onset: 5 Resolved: 5 03-29-2024 Episodic Other connective tissue disease (4 sources) Pain in right leg; Translations: [Pain in limb] 03-29-2024 Episodic Other diseases of bladder and urethra (9 sources) Mass of urinary bladder; Translations: [Other specified disorders of bladder] 11-04-2024 Chronic Other fractures (13 sources) Fracture of rib; Translations: [Fracture of [...] skin] 04-01-2024 Episodic Other non-traumatic joint disorders (19 sources) Joint pain; Translations: [Pain in unspecified joint] Onset: 5 Resolved: 5 10-13-2023 Episodic Other non-traumatic joint disorders (3 sources) Pain in unspecified joint; Translations: [Pain in joint, site unspecified] 10-13-2023 Episodic Other non-traumatic joint disorders (20 sources) Pain in right knee; Translations: [Pain in both knees] Onset: 4 Resolved: 5 01-10-2024 Episodic Other nutritional; endocrine; and metabolic disorders (8 sources) Overweight in adulthood with body mass index of 25 or more but less than 30; Translations: [Body mass index (BMI) 27.0-27.9, adult] Onset: 5 Resolved: 5 12-22-2021 Episodic Other screening for suspected conditions (not mental disorders or infectious disease) (20 sources) Screening for malignant neoplasm of colon done; Translations: [Encounter for screening for malignant neoplasm of colon] Onset: 2 Episodic Regional enteritis and ulcerative colitis (1 source) Ulcerative (chronic) pancolitis without complications; Translations: [Ulcerative (chronic) pancolitis without complications] Onset: 5 Chronic Residual codes; unclassified (9 sources) Early satiety; Translations: [Early satiety] Onset: 2 Resolved: 5 Episodic Residual codes; unclassified (9 sources) Tobacco user; Translations: [Tobacco use] Onset: 2 Resolved: 5 Episodic Residual codes; unclassified (8 sources) Chronic back pain ; Translations: [Dorsalgia, unspecified] Onset: 5 Resolved: 5 12-17-2021 Episodic Residual codes; unclassified (1 source) Early satiety; Translations: [EARLY SATIETY] Onset: 2 Episodic Residual codes; unclassified (14 sources) Menopause present; Translations: [Asymptomatic menopausal state] Onset: 5 Resolved: 5 02-08-2024 Episodic Residual codes; unclassified (3 sources) Asymptomatic menopausal state; Translations: [Symptomatic menopausal or female climacteric states] 02-08-2024 Episodic Spondylosis; intervertebral disc disorders; other back problems (20 sources) Lumbar radiculopathy; Translations: [Radiculopathy, lumbar region] Onset: 5 Resolved: 5 07-31-2023 Episodic Substance-related disorders (20 sources) Nicotine dependence, cigarettes, uncomplicated; Translations: [Tobacco dependence caused by cigarettes] Onset: 2 Resolved: 5 03-11-2024 Chronic Thyroid disorders (19 sources) Thyroid nodule; Translations: [Nontoxic single thyroid nodule] Onset: 5 Resolved: 5 03-29-2024 Chronic Unclassified (5 sources) Patient encounter status 12-22-2021 Unclassified (1 source) CONTACT W/AND (SUSP) EXPOS COVID-19; Translations: [CONTACT W/AND (SUSP) EXPOS COVID-19] Onset: 2 Unclassified (1 source) Diarrhea, Abdominal Pain Onset: 5 Past or Other Problems Problem Classification Problem Date Documented Da te Episodic/Chronic Other non-traumatic joint disorders (1 source) Pain in left knee; Translations: [Pain in left knee] Onset: 01-24-2024 Episodic Results Test Name Value Interpretation Reference Range Facility Urine Cultureon 12-02-2024 Bacteria identified Cx Nom (U) ORGANISM: Pseudomonas aeruginosa (O:PSEAER) [place] Count >100,000 Aerobic EVE Charge ([id number]) SUSCEPTIBILITY ORGANISM: O:PSEAER ANTIBIOTIC INTERPRETATION EVE Amikacin S <16 Aztreonam I <4 Cefepime S <2 Ceftazidime I <1 Ceftazidime/Avibactam S <4 Ceftolozane/Tazobactam S <2 Ciprofloxacin S <0.25 Gentamicin S 4 Levofloxacin S <0.5 Meropenem S <1 Piperacillin/Tazobactam I <8 Tobramycin S <2 S = SUSCEPTIBLE I = INTERMEDIATE R = RESISTANT BLANK = DATA NOT AVAILABLE, OR DRUG NOT ADVISABLE OR TESTED R* = RESISTANCE DUE TO EXTENDED SPECTRUM BETA-LACTAMASES ESBL = EXTENDED SPECTRUM BETA-LACTAMASE TFG = THYMIDINE-DEPENDENT STRAIN XIOMARA = BETA-LACTAMASE POSITIVE IB = INDUCIBLE BETA-LACTAMASE. APPEARS IN PLACE OF 'S' WITH SPECIES KNOWN TO POSSESS INDUCIBLE BETA-LACTAMASES. POTENTIALLY THEY MAY BECOME RESISTANT TO ALL B-LACTAM DRUGS. PERFORMED BY: [facility] [address] [place] [address] PATHOLOGIST SUPERVISOR TYPESETTING KATHLEEN Woodard [facility] Comment on above: Performed By: #### C UU #### [address] Urine cultureOrdered By: Mala Garrison on 12-02-2024 Bacteria identified Cx Nom (U) Pseudomonas aeruginosa Abnormal [facility] Ambulatory Visit Summaryon 0 11-26-2024 Ambulatory Visit Summary Ambulatory Visit Summary CRISTINE MANLEY :1960 Visit Date:11/26/2024 Ambulatory Visit Instructions Your Diagnosis Bladder cancer Gross hematuria Incomplete bladder emptying Smoker Your Care Team Attending Physician - BRIE MCKAY MD Primary Care Physician - CORNELIUS GARRISON [...] thoracic spine, Discectomy of spine, EGD - Esophagogastroduodenoscopy , Repair of laceration of vagina, Tonsillectomy. Discharge Vitals Heart Rate (Peripheral) 79 Blood Pressure 136/84 Height 170 cm Height 67 in Weight 76.1 kg Weight 167.772 lb BMI 26.33 What to do next You Need to Schedule the Following Appointments Follow Up with BRIE MCKAY MD, URL When: Where: Medications What How Much When Instructions Unchanged [...] that you are currently receiving treatment for. Antral ulcer Asthma Bladder cancer BMI 27.0-27.9,adult Chronic back pain Chronic GERD Chronic obstructive pulmonary disease Depression Early satiety Epigastric pain GERD (gastroesophageal reflux disease) Gross hematuria Incomplete bladder emptying Osteopenia Screening for malignant neoplasm of colon Sigmoid diverticulosis Smoker Tobacco user Very low density lipoprotinemia Patient Survey You may receive a survey via text or e-mail asking about your office visit. Please share your experience with us by completing your survey. We appreciate your feedback and thank you for choosing us for your care. Education Materials Steps to Quit Smoking Smoking tobacco is the leading cause of preventable . It can affect almost every organ in the body. Smoking puts you and those around you at risk for developing many serious chronic diseases. Quitting smoking can be very challenging. Do not get discouraged if you are not successful the first time. Some people need to make many attempts to quit before they achieve long-term success. Do your best to stick to your quit plan, and talk with your health care provider if you have any questions or concerns. How do I get ready to quit? When you decide to quit smoking, create a plan to help you succeed. Before you quit: ??? Pick a date to quit. Set a date within the next 2 weeks to give you time to prepare. ??? Write down the reasons why you are quitting. Keep this list in places where you will see it often. ??? Tell your family, friends, and co-workers that you are quitting. Support from people you are close to can make quitting easier. ??? Talk with your health care provider about your options for quitting smoking. ??? Find out what treatment options are covered by your health insurance. ??? Identify people, places, things, and activities that make you want to smoke (triggers). Avoid them. What first steps can I take to quit smoking? Throw away all cigarettes at home, at work, and in your car. ??? Throw away smoking accessories, such as ashtrays and lighters. ??? Clean your car. Make sure to empty the ashtray. ??? Clean your home, including curtains and carpets. What strategies can I use t (more content not included)... [facility] Urology Office/Clinic Noteon 11-26-2024 Urology Office/Clinic Note Urology Office/Clinic Note Chief Complaint fu turbt HPI Staff 64 year old female s/p turbt 11/13 PVR: 100 mL She has been doing good since procedure, frequent urination History of Present Illness Tests reviewed: reviewed UA, CTs, ER notes, path. I have reviewed the previous health record information and history for this patient from Dr. Mack I have reviewed and verified the staff HPI to be accurate for this encounter. Review of Systems PHQ Score Initial Depression Screen Score: 0 SCORE ROS - Provider Constitutional: denies weight loss, denies hot flashes. Eyes: denies eye problems. Gastrointestinal: denies nausea, denies vomiting. Cardiovascular: denies chest pain or angina. Integumentary: no dryness Musculoskeletal: denies musculoskeletal symptoms. ENMT: denies otolaryngeal symptoms. Respiratory: no shortness of breath. Heme/Lymph: denies easy bleeding tendency, denies easy bruising tendency. Psychiatric: no confusion, no anxiety. Genitourinary: See HPI. Physical Exam Vitals & Measurements HR: 79(Peripheral) BP: 136/84 HT: 67 in HT: 170 cm WT: 167.772 lb WT: 76.1 kg BMI: 26.33 General Appearance: alert , no acute distress, well nourished, well developed female. Head: normocephalic . Eyes: normal orbit and globe. ENMT: normal examination of external ears. Chest: Lungs CTA, respirations non labored . Psychiatric: cooperative, affect appropriate for age, normal judgement, euthymic mood. Assessment/Plan 64 [address] referred by Dr. Cornelius Garrison for hematuria. BBSQ 11 Portions of this record may have been created with voice recognition artificial intelligence software, specifically [employer], [employer] and or [employer]. Substitutions may have occurred due to the inherent limitations of voice recognition and artificial intelligence software. 1. Bladder cancer (C67.9: Malignant neoplasm of bladder, unspecified) Extensive smoking history, >50 years. No exposure to chemicals or toxins. UCx 11/05/24 - >100k mixed skin contam CT AP w con 10/01/24 [facility] - Nodular lesion left aspect of the urinary bladder, 2.3 cm, suspect neoplasm, circumscribed morphology raises possibility for benign process, such as leiomyoma [diagnosis of exclusion]. Pt presented to [facility] ER 11/13/24 with gross hematuria of 11-day duration. Severe clot passage. Three-way Lau placed with CBI initiated. CT AP wo con 11/12/24 [facility] - There are areas of nodular hyperattenuation along the posterior wall of bladder measuring 6.5 x 2.7 cm in greatest dimension. While this may represents a blood clot given the history of hematuria, an underlying bladder mass should also be considered. There is mild prominence of the renal collecting systems. S/p cysto, TURBT (large) 11/13/24 - large bladder tumor on posterior lateral wall extending over left ureteral orifice. Tumor greater than 5 cm in total burden. Lau removed 11/18/24. Path ~low-grade papillary urothelial carcinoma. Muscularis propria present and uninvolved. Results diagnosed with pt in great detail. All questions and concerns addressed. Discussed next steps which includes cysto in 3 months. -Cysto in 3 mos. The risks and benefits for cystoscopy have been discussed. The risks include bleeding, infection, and irritation of the bladder and urinary channel, among others. The patient, after being informed of procedural details and after questions have been answered, wishes to proceed. Full informed consent has been obtained. Will order Local anesthesia. 2. Gross hematuria (R31.0: Gross hematuria) See #1. 3. Incomplete bladder emptying (R33.9: Retention of urine, unspecified) PVR 11/26/24 - 100 mL -Timed voids 4. Smoker (F17.200: Nicotine dependence, unspecified, uncomplicated) Cessation encouraged. Education attached. Patient is a 64-year-old with extensive smoking history presenting for a TURBT 2 weeks ago. Pathology returned as low-grade urothelial cell carcinoma of the bladder. Based on NCCN, AUA guidelines we will proceed with a cystoscopy in 3 months. We also did discuss that we will do cystoscopy 3 months, 6 months, 9 months then yearly if negative. Will repeat TURBT if recurrence of tumors. Follow-up With When Contact Information MIRA TAVERAS, BRIE, URL Additional Instructions: Cysto in 3 mos Patient Education Steps to Quit Smoking Bladder Cancer IElvia, personally scribed for Dr. Mack on 11/26/2024 09:29:58. . Documentation recorded by the scribe, Elvia Rey, accurately reflects the services(s) I performed and decisions made by me. Authenticated by Dr. Mckay on 11/26/2024 11:20:26. Problem List/Past Medical History Ongoing Antral ulcer Asthma Bladder cancer BMI 27.0-27.9,adult Chronic back pain Chronic GERD Chronic obstructive pulmonary disease Depression Early satiety Epigastric pain GERD (gastroesophagea (more content not included)... [facility] Comment on above: Result Comment: Elec tronically Signed By: BRIE MCKAY MD\.br\Date and Time Signed: 11/26/24 11:21 EDT\.br\Electronically Co-Signed By: Elvia Rey\.br\Date and Time Co-Signed: 11/26/24 09:30 EDT Ambulatory Visit Summaryon 0 11-18-2024 Ambulatory Visit Summary Ambulatory Visit Summary CRISTINE MANLEY :1960 Visit Date:11/18/2024 Ambulatory Visit Instructions Your Care Team Attending Physician - Pablo MENDEZ, Roselyn Meyer Primary Care Physician - CORNELIUS GARRISON MD This Is Your Medications List acetaminophen-hydrocodone (acetaminophen-hydrocodone 325 mg-5 mg oral tablet) albuterol (ProAir HFA 90 mcg/inh inhalation aerosol) amitriptyline (amitriptyline 50 mg Tab) fluticasone-salmeterol (Advair HFA 115 mcg-21 mcg Aerosol) pantoprazole (Pantoprazole [address] Tab) sucralfate (sucralfate tab) tizanidine (tiZANidine 4 mg Tab) Procedures Performed Colonoscopy (01/12/2022), EGD - Esophagogastroduodenoscopy (01/12/2022), Bilateral oophorectomy, Bunionectomy, Colonoscopy, Decompression of thoracic spine, Discectomy of spine, EGD - Esophagogastroduodenoscopy , Repair of laceration of vagina, Tonsillectomy. What to do next Scheduled Follow-Up Appointments Monday 8:45 AM EDT With: BRIE MCKAY MD Where: [facility] [address], [address] [place] [id number]- Medications What How Much When Instructions Unchanged acetaminophen-hydrocodone (acetaminophen-hydrocodone 325 mg-5 mg oral tablet) 1 Tablets By Mouth 3 times a day Unchanged albuterol (ProAir HFA 90 mcg/ inh inhalation aerosol) 2 Puffs Inhalation Every 4 hours as needed for Shortness of breath or wheezing Unchanged amitriptyline (amitriptyline 50 mg Tab) 1 Tablets By Mouth Once a day (at bedtime) Unchanged fluticasone-salmeterol (Advair HFA 115 mcg-21 mcg Aerosol) 2 Puffs Inhalation 2 times a day Unchanged pantoprazole (Pantoprazole [address] Tab) 1 Tablets By Mouth Every day Unchanged sucralfate (sucralfate tab) 1 Tablets By Mouth Four times a day (before meals and at bedtime) Unchanged tizanidine (tiZANidine 4 mg Tab) 1 Tablets By Mouth 3 times a day Allergies Biaxin (Unknown) Fosamax (Muscle pain) Levaquin (Rash) Percocet (Nausea) sulfa drugs (Unknown) Problems Ongoing - Any problem that you are currently receiving treatment for. Antral ulcer Asthma BMI 27.0-27.9,adult Chronic back pain Chronic GERD Chronic obstructive pulmonary disease Depression Early satiety Epigastric pain GERD (gastroesophageal reflux disease) Osteopenia Screening for malignant neoplasm of colon Sigmoid diverticulosis Tobacco user Very low density lipoprotinemia Patient Survey You may receive a survey via text or e-mail asking about your office visit. Please share your experience with us by completing your survey. We appreciate your feedback and thank you for choosing us for your care. Patient Portal You may access all of your results and other medical record information on our secure patient portal. If you are not signed up for this yet, please contact [employer] at [phone] to get signed up today. Language Information Language assistance services are available as needed. [facility] Activated partial thrombopla stin time (aPTT) in platelet poor plasma by coagulation aOrdered By: Gianni France on 11-13-2024 aPTT Coag (PPP) [Time] 25.6 s 22.3-36.2 [facility] Basophils Auto (Bld) [#/Vol] Ordered By: Gianni France on 11-13-2024 Basophils (Bld) [#/Vol] 0.1 10 3/uL 0.0-0.1 [facility] Basophils/100 WBC Auto (Bld) Ordered By: Gianni France on 11-13-2024 Basophils/100 WBC (Bld) 0.6 % 0.2-2.0 [facility] Eosinophils/100 WBC Auto (Bl d)Ordered By: Gianni France on 11-13-2024 Eosinophils/100 WBC (Bld) 2.1 % 0.9-7.0 [facility] Erythrocyte distribution wid th Auto (RBC) [Ratio]Ordered By: Gianni France on 11-13-2024 Erythrocyte distribution width (RBC) [Ratio] 13.8 % 11.0-15.0 [facility] Estimated glomerular filtrat ion rate (GFR) non- AmericanOrdered By: Gianni France on 11-13-2024 GFR/1.73 sq M.predicted among non-blacks MDRD (S/P/Bld) [Vol rate/Area] mL/min/{1.73_m2} >=60 mL/min/1.73m 2 [facility] Hematocrit Auto (Bld) [Volum e fraction]Ordered By: Gianni France on 11-13-2024 Hematocrit (Bld) [Volume fraction] 33.7 % Low 36.0-48.0 [facility] Hemoglobin [Mass/volume] in BloodOrdered By: Gianni France on 11-13-2024 Hemoglobin (Bld) [Mass/Vol] 11.0 g/dL Low 12.0-16.0 [facility] INR in Platelet poor plasma by Coagulation assayOrdered By: Gianni France on 11-13-2024 INR Coag (PPP) [Relative time] 0.98 {INR} [facility] Comment on above: DESIRED INR:2.0-3.0 CONDITIONS NOT LISTED BELOW2.5-3.5 FOR PROSTHETIC HEART VALVE REPLACEMENT2.5-3.5 RECURRENT THROMBOSIS Dominick 11-13-2024 L ------ Specimen: [id number] Received: 11/13/24 Status: OMAR Aceves Num: [id number] Spec Type: Surgical Subm Dr: Brie Mcaky MD Tissues: A Urinary Bladder - TUR (BLADDER TUMOR) Procedures: HE/6, Gross/Micro L5 Age/ Patient Sex Location Account Attending Physician Cristine Manley 64/F LABELL [id number] Brie Mckay MD SPEC NUM: [id number] RECD: 11/13/24 STATUS: OMAR ACEVES NUM: [id number] TORI: 11/13/[address] [facility] [address]: Brie Mckay MD ENTERED: 11/13/[address] [facility] [address]: Tracy Matta SPEC TYPE: Surgical DEPT: [facility] ENTERED BY: [id number] RECV BY: [id number] ORDERED: HE/6, Gross/Micro L5 ORDERED: HE/6, Gross/Micro L5 Pathological Diagnosis Bladder tumor, transurethral resection: - Low-grade papillary urothelial carcinoma. - No evidence of invasion into lamina propria identified. - Muscularis propria is present and negative for tumor. Clinical Information Bladder tumor Gross Description Received in formalin labeled with the patients name, date of , and bladder tumor are 8.6 grams of orozco-novak to pink, rubbery tissue chips, admixed with a small amount of hemorrhagic material, 7.2 x 4 x 0.3 cm in aggregate. The specimen is filtered, and entirely submitted in A1?A6. (6, ns, [id number] A)JG Microscopic Description Microscopic examination is performed. Specimen: [id number] Received: 11/13/24 Status: OMAR Aceves Num: [id number] Spec Type: Surgical Subm Dr: Brie Mckay MD Tissues: A Urinary Bladder - TUR (BLADDER TUMOR) Procedures: , Gross/Micro L5 Patient: Cristine Manley [id number] (Continued) Specimen: [id number] Received: 11/13/24 (Continued) Signed (signature on file) Gianni Hutchinson MD 11/14/24 1306 Specimen: [id number] Received: 11/13/24 Status: OMAR Aceves Num: [id number] Spec Type: Surgical Subm Dr: Brie Mckay MD Tissues: A Urinary Bladder - TUR (BLADDER TUMOR) Procedures: /, Gross/Micro L5 Patient: Cristine Manley [id number] (Continued) Specimen: [id number] Received: 11/13/24 (Continued) CPT Codes 88006 Specimen: [id number] Received: 11/13/24-1325 Status: OMAR Aceves Num: [id number] Spec Type: Surgical Subm Dr: Brie Mckay MD Tissues: A Urinary Bladder - TUR (BLADDER TUMOR) Procedures: HE/, Gross/Micro L5 Patient: Cristine Manley [id number] (Continued) Signed (signature on file) Gianni Hutchinson MD 11/14/24 1301 Normal [facility] Laboratory - Chemistry and C hemistry - challengeOrdered By: Gianni France on 11-13-2024 Calcium [Mass/Vol] 8.9 mg/dL 8.5-10.1 [facility] Chloride [Moles/Vol] 108 mmol/L High 98-[address] [facility] CO2 [Moles/Vol] 28.2 mmol/L 21.0-32.0 [facility] Creatinine [Mass/Vol] 0.65 mg/dL 0.55-1.02 [facility] GFR/1.73 sq M.predicted MDRD (S/P/Bld) [Vol rate/Area] mL/min/{1.73_m2} >=60 mL/min/1.73m 2 [facility] Glucose [Mass/Vol] 98 mg/dL 74-106 [facility] Magnesium [Mass/Vol] 2.0 mg/dL 1.8-2.[address] [facility] Potassium [Moles/Vol] 4.1 mmol/L 3.5-5.1 [facility] Sodium [Moles/Vol] 143 mmol/L 136-145 [facility] Urea nitrogen [Mass/Vol] 21.0 mg/dL High 7.0-18.0 [facility] Urea nitrogen/Creatinine [Mass ratio] 32.3 mg/mg [facility] Laboratory - Hematology and Cell countsOrdered By: Gianni France on 11-13-2024 Immature granulocytes/100 WBC (Bld) 0.3 % 0.0-0.5 [facility] Leukocytes [#/volume] correc shant for nucleated erythrocytes in Blood by Automated counOrdered By: Gianni France on 11-13-2024 WBC corrected for nucl RBC Auto (Bld) [#/Vol] 9.8 10 3/uL 4.0-11.0 [facility] Lymphocytes Auto (Bld) [#/Vo l]Ordered By: Gianni France on 11-13-2024 Lymphocytes (Bld) [#/Vol] 2.9 10 3/uL 1.2-3.8 [facility] Lymphocytes/100 WBC Auto (Bl d)Ordered By: Gianni France on 11-13-2024 Lymphocytes/100 WBC (Bld) 29.7 % 20.5-60.0 [facility] MCH Auto (RBC) [Entitic mass ]Ordered By: Gianni France on 11-13-2024 MCH (RBC) [Entitic mass] 29.5 pg 26.7-34.0 [facility] MCHC Auto (RBC) [Mass/Vol]Or dered By: Gianni France on 11-13-2024 MCHC (RBC) [Mass/Vol] 32.6 g/dL 29.9-35.2 [facility] MCV Auto (RBC) [Entitic vol] Ordered By: Gianni France on 11-13-2024 MCV (RBC) [Entitic vol] 90.3 fL 81.0-99.0 [facility] Monocytes Auto (Bld) [#/Vol] Ordered By: Gianni Farnce on 11-13-2024 Monocytes (Bld) [#/Vol] 0.6 10 3/uL 0.3-0.8 [facility] Monocytes/100 WBC Auto (Bld) Ordered By: Gianni France on 11-13-2024 Monocytes/100 WBC (Bld) 6.4 % 1.7-12.0 [facility] Neutrophils Auto (Bld) [#/Vo l]Ordered By: Gianni France on 11-13-2024 Neutrophils (Bld) [#/Vol] 6.0 10 3/uL 1.4-6.5 [facility] Neutrophils/100 WBC Auto (Bl d)Ordered By: Gianni France on 11-13-2024 Neutrophils/100 WBC (Bld) 60.9 % 43.0-75.0 [facility] No Panel InformationOrdered By: Gianni France on 11-13-2024 Eosinophils # (Auto) 0.2 10 3/uL 0.0-0.7 [facility] Immature Granulocyte # (Auto) 0.03 10 3/uL 0.00-0.03 [facility] Platelet mean volume Auto (B ld) [Entitic vol]Ordered By: Gianni France on 11-13-2024 Platelet mean volume (Bld) [Entitic vol] 9.8 fL 9.5-13.5 [facility] Platelets Auto (Bld) [#/Vol] Ordered By: Gianni France on 11-13-2024 Platelets (Bld) [#/Vol] 295 10 3/uL 150-450 [facility] Prothrombin time (PT)Ordered By: Gianni France on 11-13-2024 PT Coag (PPP) [Time] 10.4 s 9.0-11.[address] [facility] RBC Auto (Bld) [#/Vol]Ordere d By: Gianni France on 11-13-2024 RBC (Bld) [#/Vol] 3.73 10 6/uL Low 4.20-5.40 [facility] Serum or plasma anion gap de terminationOrdered By: Gianni France on 11-13-2024 Anion gap [Moles/Vol] 10.9 mmol/L [facility] Basophils Auto (Bld) [#/Vol] Ordered By: Delvin Campbell on 11-12-2024 Basophils (Bld) [#/Vol] 0.1 10 3/uL 0.0-0.1 [facility] Basophils/100 WBC Auto (Bld) Ordered By: Delvin Campbell on 11-12-2024 Basophils/100 WBC (Bld) 0.8 % 0.2-2.0 [facility] Eosinophils/100 WBC Auto (Bl d)Ordered By: Delvin Campbell on 11-12-2024 Eosinophils/100 WBC (Bld) 3.3 % 0.9-7.0 [facility] Erythrocyte distribution wid th Auto (RBC) [Ratio]Ordered By: Delvin Campbell on 11-12-2024 Erythrocyte distribution width (RBC) [Ratio] 13.7 % 11.0-15.0 [facility] Estimated glomerular filtrat ion rate (GFR) non- AmericanOrdered By: Delvin Campbell on 11-12-2024 GFR/1.73 sq M.predicted among non-blacks MDRD (S/P/Bld) [Vol rate/Area] mL/min/{1.73_m2} >=60 mL/min/1.73m 2 [facility] Hematocrit Auto (Bld) [Volum e fraction]Ordered By: Delvin Campbell on 11-12-2024 Hematocrit (Bld) [Volume fraction] 35.5 % Low 36.0-48.0 [facility] Hemoglobin [Mass/volume] in BloodOrdered By: Delvin Campbell on 11-12-2024 Hemoglobin (Bld) [Mass/Vol] 11.4 g/dL Low 12.0-16.0 [facility] Laboratory - Chemistry and C hemistry - challengeOrdered By: Delvin Campbell on 11-12-2024 Calcium [Mass/Vol] 9.9 mg/dL 8.5-10.1 [facility] Chloride [Moles/Vol] 105 mmol/L 98-[address] [facility] CO2 [Moles/Vol] 29.6 mmol/L 21.0-32.0 [facility] Creatinine [Mass/Vol] 0.82 mg/dL 0.55-1.02 [facility] GFR/1.73 sq M.predicted MDRD (S/P/Bld) [Vol rate/Area] mL/min/{1.73_m2} >=60 mL/min/1.73m 2 [facility] Glucose [Mass/Vol] 107 mg/dL High 74-106 [facility] Potassium [Moles/Vol] 3.5 mmol/L 3.5-5.1 [facility] Sodium [Moles/Vol] 141 mmol/L 136-145 [facility] Urea nitrogen [Mass/Vol] 20.0 mg/dL High 7.0-18.0 [facility] Urea nitrogen/Creatinine [Mass ratio] 24.4 mg/mg [facility] Bilirubin Ql (U) Negative NEGATIVE [facility] Glucose (U) [Mass/Vol] Negative NEGATIVE [facility] Ketones Ql (U) TRACE mg/dL Abnormal NEGATIVE [facility] pH (U) 7.0 [pH] 5.0-9.0 [facility] Specific gravity (U) [Rel density] 1.020 1.005-1.025 [facility] Urobilinogen Qn (U) 1.0 {Zoraida'U}/dL 0.2-1.0 [facility] Laboratory - Hematology and Cell countsOrdered By: Delvin Campbell on 11-12-2024 Immature granulocytes/100 WBC (Bld) 0.3 % 0.0-0.5 [facility] Laboratory - Specimen inform ationOrdered By: Delvin Campbell on 11-12-2024 Appearance (U) CLEAR CLEAR [facility] Color (U) DK. RED YELLOW [facility] Laboratory - UrinalysisOrder ed By: Delvin Campbell on 11-12-2024 Leukocyte esterase Test strip Ql (U) TRACE Abnormal NEGATIVE [facility] Mucus Ql (Urine sed) NONE SEEN NONE SEEN [facility] Nitrite Ql (U) Positive Abnormal NEGATIVE [facility] Protein Ql (U) >=300 mg/dL Abnormal NEG/TRACE [facility] Leukocytes [#/volume] correc shant for nucleated erythrocytes in Blood by Automated counOrdered By: Delvin Campbell on 11-12-2024 WBC corrected for nucl RBC Auto (Bld) [#/Vol] 7.7 10 3/uL 4.0-11.0 [facility] Lymphocytes Auto (Bld) [#/Vo l]Ordered By: Delvin Campbell on 11-12-2024 Lymphocytes (Bld) [#/Vol] 2.5 10 3/uL 1.2-3.8 [facility] Lymphocytes/100 WBC Auto (Bl d)Ordered By: Delvin Campbell on 11-12-2024 Lymphocytes/100 WBC (Bld) 32.9 % 20.5-60.0 [facility] MCH Auto (RBC) [Entitic mass ]Ordered By: Delvin Campbell on 11-12-2024 MCH (RBC) [Entitic mass] 29.2 pg 26.7-34.0 [facility] MCHC Auto (RBC) [Mass/Vol]Or dered By: Delvin Campbell on 11-12-2024 MCHC (RBC) [Mass/Vol] 32.1 g/dL 29.9-35.2 [facility] MCV Auto (RBC) [Entitic vol] Ordered By: Delvin Campbell on 11-12-2024 MCV (RBC) [Entitic vol] 91.0 fL 81.0-99.0 [facility] Monocytes Auto (Bld) [#/Vol] Ordered By: Delvin Campbell on 11-12-2024 Monocytes (Bld) [#/Vol] 0.6 10 3/uL 0.3-0.8 [facility] Monocytes/100 WBC Auto (Bld) Ordered By: Delvin Campbell on 11-12-2024 Monocytes/100 WBC (Bld) 8.1 % 1.7-12.0 [facility] Neutrophils Auto (Bld) [#/Vo l]Ordered By: Delvin Campbell on 11-12-2024 Neutrophils (Bld) [#/Vol] 4.2 10 3/uL 1.4-6.5 [facility] Neutrophils/100 WBC Auto (Bl d)Ordered By: Delvin Campbell on 11-12-2024 Neutrophils/100 WBC (Bld) 54.6 % 43.0-75.0 [facility] No Panel InformationOrdered By: Delvin Campbell on 11-12-2024 Eosinophils # (Auto) 0.3 10 3/uL 0.0-0.7 [facility] Immature Granulocyte # (Auto) 0.02 10 3/uL 0.00-0.03 [facility] Urine Bacteria NONE SEEN #/HPF NONE SEEN [facility] Urine Culture Reflexed NO [facility] Urine Occult Blood LARGE Abnormal NEGATIVE [facility] Urine Other Casts NONE SEEN #/LPF NONE SEEN [facility] Urine Other Crystals None Seen #/HPF None Seen [facility] Urine RBC 50-75 #/HPF Abnormal 0-2 [facility] Urine Squamous Epithelial Cells NONE SEEN #/LPF NONE/RARE [facility] Urine WBC 0-2 #/HPF Abnormal NONE SEEN [facility] Platelet mean volume Auto (B ld) [Entitic vol]Ordered By: Delvin Campbell on 11-12-2024 Platelet mean volume (Bld) [Entitic vol] 9.5 fL 9.5-13.5 [facility] Platelets Auto (Bld) [#/Vol] Ordered By: Delvin Campbell on 11-12-2024 Platelets (Bld) [#/Vol] 301 10 3/uL 150-450 [facility] RBC Auto (Bld) [#/Vol]Ordere d By: Delvin Campbell on 11-12-2024 RBC (Bld) [#/Vol] 3.90 10 6/uL Low 4.20-5.40 [facility] Serum or plasma anion gap de terminationOrdered By: Delvin Campbell on 11-12-2024 Anion gap [Moles/Vol] 9.9 mmol/L [facility] Laboratory - Chemistry and C hemistry - challengeOrdered By: Carlin Oleary on 11-03-2024 Bilirubin Ql (U) COLOR INTERFERENCE Abnormal NEGATIVE [facility] Ketones Ql (U) COLOR INTERFERENCE mg/dL Abnormal NEGATIV E [facility] Specific gravity (U) [Rel density] 1.015 1.005-1.025 [facility] Laboratory - Specimen inform ationOrdered By: Carlin Oleary on 11-03-2024 Appearance (U) CLOUDY Abnormal CLEAR [facility] Color (U) DK. RED YELLOW [facility] Laboratory - UrinalysisOrder ed By: Carlin Oleary on 11-03-2024 Leukocyte esterase Test strip Ql (U) COLOR INTERFERENCE Abnormal NEGATIVE [facility] Mucus Ql (Urine sed) NONE SEEN NONE SEEN [facility] Nitrite Ql (U) COLOR INTERFERENCE Abnormal NEGATIVE [facility] Protein Ql (U) COLOR INTERFERENCE mg/dL Abnormal NEG/TRA CE [facility] No Panel InformationOrdered By: Carlin Oleary on 11-03-2024 Urine Bacteria TRACE #/HPF Abnormal NONE SEEN [facility] Urine Culture Reflexed [facility] Urine Glucose (UA) COLOR INTERFERENCE mg/dL Abnormal NEG ATIVE [facility] Urine Occult Blood COLOR INTERFERENCE Abnormal NEGATIVE [facility] Urine Other Casts NONE SEEN #/LPF NONE SEEN [facility] Urine Other Crystals None Seen #/HPF None Seen [facility] Urine pH COLOR INTERFERENCE Abnormal 5.0-9.0 [facility] Urine RBC >100 #/HPF Abnormal 0-2 [facility] Urine Squamous Epithelial Cells NONE SEEN #/LPF NONE/RARE [facility] Urine Urobilinogen COLOR INTERFERENCE EU/dL Abnormal 0.2 -1.0 [facility] Urine WBC 20-50 #/HPF Abnormal NONE SEEN [facility] Urine Cultureon 11-03-2024 Bacteria identified Cx Nom (U) >100,000 colonies/ml mixed bacterial skin contaminants 2 Days PERFORMED BY: [address] [address] PATHOLOGIST SUPERVISOR TYPESETTING KATHLEEN AGUAYO M.D. Normal [facility] Comment on above: Performed By: #### C UU #### [facility] [address] [place], [place] [id number] [facility] Urine cultureOrdered By: Mala Garrison on 11-03-2024 Bacteria identified Cx Nom (U) 2 Days [facility] C DIFFICILE BY PCRon 025 027 NAP1 Negative Normal Presumptive Negative [facility] Comment on above: Result Comment: Batool cerrato methodology is nucleic acid amplification by real-time PCR for detection of C. difficile toxin gene sequences performed on [employer] Instrument System. Performed By: #### C DFPCR #### [facility] ([facility]) [address] [place] [address] VIR TOXIGENIC C DIFF Negative Normal Negative [facility] Comment on above: Performed By: #### C DFPCR #### [facility] ([facility]) [address] [place] [address] VIR CBC WITH AUTO DIFFERENTIALon 10-01-2024 BASOPHILS ABSOLUTE COUNT (10*3/UL) BY AUTOMATED COUNT 0.1 10*3/uL Normal 0.0-0.2 [facility] Comment on above: Performed By: #### C BCA #### [facility] ([address] [address] VIR BASOPHILS RELATIVE PERCENT BY AUTOMATED COUNT 0.7 % Normal [facility] Comment on above: Performed By: #### C BCA #### [facility] ([facility]) [address] [place] [address] VIR CELLAVISION DIFFERENTIAL TYPE AUTOMATED DIFFERENTIAL Normal [facility] Comment on above: Performed By: #### C BCA #### [facility] ([address] [address] VIR Eosinophils (Bld) [#/Vol] 0.1 10*3/uL Normal 0.0-0.4 [facility] Comment on above: Performed By: #### C BCA #### [facility] ([address] [address] VIR EOSINOPHILS RELATIVE PERCENT BY AUTOMATED COUNT 1.2 % Normal [facility] Comment on above: Performed By: #### C BCA #### [facility] ([address] [place] [address] VIR Erythrocyte distribution width (RBC) [Ratio] 13.2 % Normal 11.5-15 [facility] Comment on above: Performed By: #### C BCA #### [facility] ([address] [address] VIR Hematocrit (Bld) [Volume fraction] 41.7 % Normal 35-47 [facility] Comment on above: Performed By: #### C BCA #### [facility] ([address] [address] VIR Hemoglobin (Bld) [Mass/Vol] 14.1 g/dL Normal 11.7-15.5 [facility] Comment on above: Performed By: #### C BCA #### [facility] ([address] [address] VIR LYMPHOCYTES ABSOLUTE COUNT (10*3/UL) BY AUTOMATED COUNT 1.7 10*3/uL Normal 1.0-3.5 [facility] Comment on above: Performed By: #### C BCA #### [facility] ([address] [address] VIR LYMPHOCYTES RELATIVE PERCENT BY AUTOMATED COUNT 18.1 % Normal [facility] Comment on above: Performed By: #### C BCA #### [facility] ([address] [address] VIR MCH (RBC) [Entitic mass] 29.8 pg Normal 27-34 [facility] Comment on above: Performed By: #### C BCA #### [facility] ([address] [address] VIR MCHC (RBC) [Mass/Vol] 33.9 g/dL Normal 32-36 [facility] Comment on above: Performed By: #### C BCA #### [facility] ([address] [address] VIR MCV (RBC) [Entitic vol] 88 fL Normal 80-100 [facility] Comment on above: Performed By: #### C BCA #### [facility] ([address] [address] VIR MONOCYTES ABSOLUTE COUNT (10*3/UL) BY AUTOMATED COUNT 1.3 10*3/uL High 0.0-0.9 [facility] Comment on above: Performed By: #### C BCA #### [facility] ([address] [address] VIR MONOCYTES RELATIVE PERCENT BY AUTOMATED COUNT 14.3 % Normal [facility] Comment on above: Performed By: #### C BCA #### [facility] ([address] [address] VIR NEUTROPHILS ABSOLUTE COUNT BY AUTOMATED COUNT 6.1 10*3/uL Normal 1.5-6.6 [facility] Comment on above: Performed By: #### C BCA #### [facility] ([address] [address] VIR NEUTROPHILS RELATIVE PERCENT BY AUTOMATED COUNT 65.7 % Normal [facility] Comment on above: Performed By: #### C BCA #### [facility] ([address] [address] VIR Platelet mean volume (Bld) [Entitic vol] 7.7 fL Normal 7-12 [facility] Comment on above: Performed By: #### C BCA #### [facility] ([address] [address] VIR Platelets (Bld) [#/Vol] 376 10*3/uL Normal 150-450 [facility] Comment on above: Performed By: #### C BCA #### [facility] ([facility]) [address] [place] [address] VIR RBC COUNT 4.74 X10E12/L Normal 3.8-5.2 [facility] Comment on above: Performed By: #### C BCA #### [facility] ([address] [place] [address] VIR WBC (Bld) [#/Vol] 9.3 10*3/uL Normal 4-11 [facility] Comment on above: Performed By: #### C BCA #### [facility] ([facility]) [address] [place] [address] [place] [address] VIR COMPREHENSIVE METABOLIC PANE Dominick 10-01-2024 Albumin [Mass/Vol] 3.5 g/dL Normal 3.2-5.3 [facility] Comment on above: Performed By: #### C MP #### [facility] ([address] [place] [address] VIR ALP [Catalytic activity/Vol] 69 U/L Normal 39-130 [facility] Comment on above: Performed By: #### C MP #### [facility] ([address] [place] [address] VIR ALT [Catalytic activity/Vol] 20 U/L Normal <=31 [facility] Comment on above: Performed By: #### C MP #### [facility] ([address] [place] [address] VIR Anion gap [Moles/Vol] 10 mmol/L Normal 5-15 [facility] Comment on above: Performed By: #### C MP #### [facility] ([facility]) [address] [place], [place] [address] [place] [address] VIR AST [Catalytic activity/Vol] 14 U/L Normal <=41 [facility] Comment on above: Performed By: #### C MP #### [facility] ([address] [place] [address] VIR Bilirubin [Mass/Vol] 0.4 mg/dL Normal 0.3-1.[address] [facility] Comment on above: Performed By: #### C MP #### [facility] ([address] [place] [address] VIR Calcium [Mass/Vol] 8.9 mg/dL Normal 8.5-10.5 [facility] Comment on above: Performed By: #### C MP #### [facility] ([address] [place] [address] VIR Chloride [Moles/Vol] 102 mmol/L Normal 98-[address] [facility] Comment on above: Performed By: #### C MP #### [facility] ([address] [place] [address] VIR CO2 [Moles/Vol] 25 mmol/L Normal 22-32 [facility] Comment on above: Performed By: #### C MP #### [facility] ([address] [place] [address] VIR Creatinine [Mass/Vol] 0.89 mg/dL Normal 0.40-1.00 [facility] Comment on above: Result Comment: METH OD TRACEABLE TO IDMS STANDARD Performed By: #### C MP #### [facility] ([address] [place] [address] VIR GFR/1.73 sq M.predicted among non-blacks MDRD (S/P/Bld) [Vol rate/Area] 72 mL/min/{1.73_m2} Normal >=60 [facility] Comment on above: Result Comment: eGFR not reported due to non-numeric value for Creatinine. Reported eGFR is based on the CKD-EPI 2020 equation that does not use a race coefficient. Performed By: #### C MP #### [facility] ([address] [place] [address] VIR Glucose [Mass/Vol] 111 mg/dL High 65-99 [facility] Comment on above: Performed By: #### C MP #### [facility] ([facility]) [address] [place] [address] [place] [address] VIR Potassium [Moles/Vol] 3.4 mmol/L Low 3.5-5.0 [facility] Comment on above: Performed By: #### C MP #### [facility] ([facility]) [address] [place] [address] [place] [address] VIR Protein [Mass/Vol] 6.6 g/dL Normal 6.0-8.0 [facility] Comment on above: Performed By: #### C MP #### [facility] ([address] [place] [address] VIR Sodium [Moles/Vol] 137 mmol/L Normal 134-146 [facility] Comment on above: Performed By: #### C MP #### [facility] ([address] [place] [address] VIR Urea nitrogen [Mass/Vol] 20 mg/dL Normal 5-27 [facility] Comment on above: Performed By: #### C MP #### [facility] ([address] [place] [address] ABDOMEN AND PELVIS W CONT [...] as low as reasonably achievable. Finalized by Cihco Cordova MD on 10/01/2024 8:37 AM Normal [facility] GI PANEL STOOL PATHOGEN PANE Dominick 10-01-2024 ADENOVIRUS Not detected Normal Not Detected [facility] Comment on above: Performed By: #### G IP #### [facility] ([facility]) [address] [place] [address] VIR AGGREGATIVE E COLI Not detected Normal Not Detected [facility] Comment on above: Performed By: #### G IP #### [facility] ([facility]) [address] [place] [address] VIR ASTROVIRUS Not detected Normal Not Detected [facility] Comment on above: Performed By: #### G IP #### [facility] ([facility]) [address] [place] [address] VIR CAMPYLOBACTER Detected Abnormal Not Detected [facility] Comment on above: Result Comment: Dete cts the following: C. jejuni, C. coli, C. upsaliensis. Performed By: #### G IP #### [facility] ([facility]) [address] [place] [address] VIR CRYPTOSPORIDIUM Not detected Normal Not Detected [facility] Comment on above: Performed By: #### G IP #### [facility] ([facility]) [address] [place] [address] VIR CYCLOSPORA Not detected Normal Not Detected [facility] Comment on above: Performed By: #### G IP #### [facility] ([facility]) [address] [place] [address] VIR E HISTOLYTICA Not detected Normal Not Detected [facility] Comment on above: Performed By: #### G IP #### [facility] ([facility]) [address] [place] [address] VIR GIARDIA LAMBLIA Not detected Normal Not Detected [facility] Comment on above: Performed By: #### G IP #### [facility] ([facility]) [address] [place] [address] VIR NOROVIRUS Not detected Normal Not Detected [facility] Comment on above: Performed By: #### G IP #### [facility] ([facility]) [address] [place] [address] VIR PATHOGENIC E COLI Detected Abnormal Not Detected [facility] Comment on above: Result Comment: Ente ropathogenic Escherichia coli Performed By: #### G IP #### [facility] ([facility]) [address] [place] [address] VIR PLESIOMONAS Not detected Normal Not Detected [facility] Comment on above: Performed By: #### G IP #### [facility] ([facility]) [address] [place] [address] VIR ROTAVIRUS A Not detected Normal Not Detected [facility] Comment on above: Performed By: #### G IP #### [facility] ([facility]) [address] [place] [address] VIR SALMONELLA Not detected Normal Not Detected [facility] Comment on above: Performed By: #### G IP #### [facility] ([facility]) [address] [place] [address] VIR SAPOVIRUS Not detected Normal Not Detected [facility] Comment on above: Performed By: #### G IP #### [facility] ([facility]) [address] [place] [address] VIR SHIGA TOXIN E COLI Not detected Normal Not Detected [facility] Comment on above: Performed By: #### G IP #### [facility] ([facility]) [address] [place] [address] VIR SHIGELLA-E COLI Not detected Normal Not Detected [facility] Comment on above: Performed By: #### G IP #### [facility] ([facility]) [address] [place] [address] VIR TOXIGENIC E COLI Not detected Normal Not Detected [facility] Comment on above: Performed By: #### G IP #### [facility] ([facility]) [address] [place] [address] VIR VIBRIO Not detected Normal Not Detected [facility] Comment on above: Performed By: #### G IP #### [facility] ([facility]) [address] [place] [address] VIR VIBRIO CHOLERAE Not detected Normal Not Detected [facility] Comment on above: Performed By: #### G IP #### [facility] ([facility]) [address] [place] [address] VIR Y. ENTEROCOLITICA Not detected Normal Not Detected [facility] Comment on above: Performed By: #### G IP #### [facility] ([facility]) [address] [place] [address] VIR LIPASEon 10-01-2024 Lipase [Catalytic activity/Vol] 32 U/L Normal 17-40 [facility] Comment on above: Performed By: #### L IPA #### [facility] ([address] [place] [address] VIR MAGNESIUMon 10-01-2024 Magnesium [Mass/Vol] 1.9 mg/dL Normal 1.8-2.[address] [facility] Comment on above: Performed By: #### M G #### [facility] ([address] [place] [address] VIR POCT NURSING URINE MACROSCOP IC UAon 10-01-2024 BILIRUBIN SHANT Negative Normal Negative [facility] Comment on above: Performed By: #### N UM #### [facility] ([address] [place] [address] VIR BLOOD/HGB SHANT Moderate Abnormal Negative [facility] Comment on above: Performed By: #### N UM #### [facility] ([address] [place] [address] VIR GLUCOSE SHANT Negative Normal Negative [facility] Comment on above: Performed By: #### N UM #### [facility] ([address] [place] [address] VIR KETONES SHANT Negative Normal Negative [facility] Comment on above: Performed By: #### N UM #### [facility] ([address] [place] [address] VIR LEUKOCYTE ESTERASE SHANT Negative Normal Negative [facility] Comment on above: Performed By: #### N UM #### [facility] ([address] [place] [address] VIR NITRITE SHANT Negative Normal Negative [facility] Comment on above: Performed By: #### N UM #### [facility] ([address] [place] [address] VIR PH SHANT 6.0 Normal 5.0, 6.0, 6.5, 7.0, 7.5, 8.0, 8.5, 5.5 [facility] Comment on above: Performed By: #### N UM #### [facility] ([address] [address] VIR PROTEIN SHANT Trace Abnormal Negative [facility] Comment on above: Performed By: #### N UM #### [facility] ([address] [place] [address] VIR SPECIFIC GRAVITY SHANT <=1.005 Abnormal 1.010, 1.015, 1.020, 1.025 [facility] Comment on above: Performed By: #### N UM #### [facility] ([address] [address] VIR UROBILINOGEN SHANT 0.2 E.U./dL Normal [facility] Comment on above: Performed By: #### N UM #### [facility] ([address] Spine Lumbar Myelogram w/ Contraston [...] narrowing as detailed above. Radiation Dose Estimate: CTDI(mGy):0.463805 / / / kVp:120.155088 / mAs:0.417715 / / / DLP(mGy-cm):3.295314Mkno Part: CTDI(mGy):21.433668 / / / kVp:120.676544 / mAs:230.014376 / / / DLP(mGy-cm):616.739001Gmud Part: Final Dictated by: Alexey Morgan MD Dictated DT/TM: 07.30.2024 12:27 pm Signed by: Alexey Morgan MD Signed (Electronic Signature): 07.30.2024 12:38 pm (If Report Is Signed, Electronically Signed in Other Vendor System) Normal [facility] PTon 07-30-2024 INR Coag (PPP) [Relative time] 0.9 {INR} Normal <=3.[address] [facility] Comment on above: Result Comment: INR has no normal range. INR Therapeutic range is: 2.0-3.0 (AF, CVA, TIAs, DVT prophylaxis, acute DVT) 2.5-3.5 ([facility] heart valves, recurrent thrombosis/emboli) Performed By: #### P TINR #### [address] [address] PT Coag (PPP) [Time] 10.4 s Normal 10.2-12.9 [facility] Comment on above: Performed By: #### P TINR #### [address] [address] PTTon 07-30-2024 aPTT Coag (Bld) [Time] 30.8 s Normal 25.1-36.[address] [facility] Comment on above: Performed By: #### P TT #### [address] [address] Platelet Counton 07-30-2024 Platelet 313 x10*3/mcL Normal 150-[address] [facility] Comment on above: Performed By: #### P TINR #### [address] [address] XR Myelography Lumbosacral S pineon 07-30-2024 XR [...] Electronically Signed in Other Vendor System) Normal [facility] Neurosurgery Office/Clinic N oteon 06-06-2024 Neurosurgery Office/Clinic Note Chief Complaint back follow up History of Present Illness The patient is a pleasant 64-year-old right-handed female with history of chronic nicotine use, asthma and recently diagnosed COPD for which she is planned to see a wharf attendant in the near future. She also has [...] therapy without benefit. 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 Oral narcotics including [place] which makes pain tolerable though does not resolve. Topical agents including lidocaine patches and Bengay with limited benefit. Pain management injection modalities years ago with temporary benefit lasting only a few days. Physical therapy years ago without significant benefit. Chiropractic manipulation x 1 visit without benefit therefore patient never returned. Activity modification [1] Pain management injection modalities through [facility]. Initial injection targeted left L4-5 which she [...] No si (more content not included)... Normal [facility] Provider Letteron 06-06-2024 Provider Letter (Inserted Image. Gela ble to display) Cornelius Garrison MD [address] [place] [address], [facility] [place] [address] Re: Cristine Manley Date of Visit: 06/06/2024 Dear Cornelius Garrison MD, This patient was recently seen in the neurosurgical office. Please see attached note for further details. Let me know if you have any questions or concerns. Sincerely, DEMARCUS Gan Providers: The following document(s) were included in the letter: June 06, 2024 09:36:40 EST - (06/06/2024) Neurosurgery Office Visit Note Normal [facility] Dominick 04-22-2024 L ------ Specimen: [id number] Received: 04/24/24 Status: OMAR Aceves Num: [id number] Spec Type: Cytology Subm Dr: Cornelius Garrison MD Tissues: A FNA SLIDES NOPATH (INF RT THY) Procedures: Cyto Int and Re, PAPSTN/5 Age/ Patient Sex Location Account Attending Physician Cristine Manley 64/F LABELL [id number] Cornelius Garrison MD SPEC NUM: [id number] RECD: 04/24/24 STATUS: OMAR ACEVES NUM: [id number] TORI: 04/22/24- SUBM DR: Cornelius Garrison MD ENTERED: 04/24/24 [facility] DR: Les Lee MD SPEC TYPE: Cytology DEPT: KEN MINER ENTERED BY: [id number] RECV BY: [id number] ORDERED: Cyto Int and Re, PAPSTN/5 ORDERED: Cyto Int and Re, PAPSTN/5 Supplemental Report Addendum 1 Entered: 05/10/241132 Supplemental for findings of [facility] GENOMIC SEQUENCING CLAIM ANALYST: -Ensemble Firebrick Layer -Benign (risk of malignancy 4%) -Xpression Cubero -N/A -Other Classifiers -BRAF p. V600E c. 1799T>A: Negative -RET/PTC1: Not detected -RET/PTC3: Not detected -MTC: Negative -Parathyroid: Negative TERT PROMOTER REGION: -Tests (2) not Performed (TNP) Specimen: [id number] Received: 04/24/24 Status: OMAR Aceves Num: [id number] Spec Type: Cytology Subm Dr: Cornelius Garrison MD Tissues: A FNA SLIDES NOPATH (INF RT THY) Procedures: Cyto Int and Re, PAPSTN/5 Patient: Cristine Manley [id number] (Continued) Specimen: [id number] Received: 04/24/24 (Continued) Supplemental Report (Continued) Signed (signature on file) Gail Sheth MD 04/24/24 3711 Specimen: [id number] Received: 04/24/24 Status: OMAR Lopestyree Num: [id number] Spec Type: Cytology Subm Dr: Cornelius Garrison MD Tissues: A FNA SLIDES NOPATH (INF RT THY) Procedures: Cyto Int and Re, PAPSTN/5 Patient: Cristine Manley [id number] (Continued) Specimen: [id number] Received: 04/24/24 (Continued) Supplemental Report (Continued) Addendum Signed (signature on file) Gail Sheth MD 05/10/24 1132 Pathological Diagnosis Right thyroid nodule, inferior, FNA cytology -Adequate follicular groups in the ThinPrep smear, appropriate for assessment, consisting of small to occasionally slightly larger and reactive follicular cells, suggesting dimorphic population and the category 3 Meally system, atypia of the undetermined significance, otherwise [...] vial stored at -20 for microscopic examination. (CO/nm) Microscopic Description Microscopic examinations are performed supporting the above interpretation CPT Codes 41757 Specimen: [id number] Received: 04/24/24 Status: OMAR Aceves Num: [id number] Spec Type: Cytology Subm Dr: Cornelius Garrison MD Tissues: A FNA SLIDES NOPATH (INF RT THY) Procedures: Cyto Int and Re, PAPSTN/5 Patient: Cristine Manley [id number] (Continued) Signed (signature on file) Pedro-Diogenes Sheth MD 04/24/24 6879 Normal [facility] EMG 2 Extremitieson 04-01-20 EMG/NCS BLE Right L5/S1 radic Francisco S1/2 radic [facility] NVC 9-10 Nerveson 04-01-2024 EMG/NCS BLE Right L5/S1 radic Francisco S1/2 radic [facility] Provider Letteron 03-26-2024 Provider Letter (Inserted Image. Gela ble to display) Cornelius Garrison MD [address] [place] [address] [place] [address] Re: Cristine Manley Date of Visit: 03/25/2024 Dear Cornelius Garrison MD, This patient was recently seen in the neurosurgical office. Please see attached note for further details. Let me know if you have any questions or concerns. Sincerely, DEMARCUS Gan Providers: The following document(s) were included in the letter: March 25, 2024 17:40:13 EST - (03/25/2024) Neurosurgery Office Visit Note Normal [facility] Neurosurgery Office/Clinic N oteon 03-25-2024 Neurosurgery Office/Clinic Note Chief Complaint CT thoracic, lumbar, XR lumbar, hips and neck review History of Present Illness The patient is a pleasant 64-year-old right-handed female with history of chronic nicotine use, asthma and recently diagnosed COPD for which she is planned to see a wharf attendant in the near future. She also has [...] though does not resolve. Oral narcotics including [place] Run which makes pain tolerable though does not [...] increases slightl (more content not included)... Normal [facility] Basophils Auto (Bld) [#/Vol] on 03-21-2024 Basophils (Bld) [#/Vol] Automated basophil count 0.0-0.1 [facility] Basophils/100 WBC Auto (Bld) on 03-21-2024 Basophils/100 WBC (Bld) Automated basophil % 0.2-2.0 [facility] Eosinophils/100 WBC Auto (Bl d)on 03-21-2024 Eosinophils/100 WBC (Bld) Automated eosinophil % 0.9-7.0 [facility] Erythrocyte distribution wid th Auto (RBC) [Ratio]on 03-21-2024 Erythrocyte distribution width (RBC) [Ratio] Erythrocyte distribution width [Ratio] by Automated count 11.0-15.0 [facility] Hematocrit Auto (Bld) [Volum e fraction]on 03-21-2024 Hematocrit (Bld) [Volume fraction] Hematocrit [Volume Fraction] of Blood by Automated count 36.0-48.0 [facility] Hemoglobin [Mass/volume] in Bloodon 03-21-2024 Hemoglobin (Bld) [Mass/Vol] Hemoglobin [Mass/volume] in Blood 12.0-16.0 [facility] IgE [Units/volume] in Serum or Plasmaon 03-21-2024 IgE Qn IgE [Units/volume] i n Serum or Plasma 6-495 [facility] Comment on above: Performed at: [address] [id number] Director: Levi Pedroza MD, Phone: [phone] Laboratory - Hematology and Cell countson 03-21-2024 Immature granulocytes/100 WBC (Bld) 0.1 % 0.0-0.5 [facility] Leukocytes [#/volume] correc shant for nucleated erythrocytes in Blood by Automated counon 03-21-2024 WBC corrected for nucl RBC Auto (Bld) [#/Vol] Leukocytes [#/volume] corrected for nucleated erythrocytes in Blood by Automated coun 4.0-11.0 [facility] Lymphocytes Auto (Bld) [#/Vo l]on 03-21-2024 Lymphocytes (Bld) [#/Vol] Lymphocytes [#/volume] in Blood by Automated count 1.2-3.8 [facility] Lymphocytes/100 WBC Auto (Bl d)on 03-21-2024 Lymphocytes/100 WBC (Bld) Lymphocytes/100 leukocytes in Blood by Automated count Low 20.5-60.0 [facility] MCH Auto (RBC) [Entitic mass ]on 03-21-2024 MCH (RBC) [Entitic mass] MCH [Entitic mass] by Automated count 26.7-34.0 [facility] MCHC Auto (RBC) [Mass/Vol]on 03-21-2024 MCHC (RBC) [Mass/Vol] MCHC [Mass/volume] by Automated count 29.9-35.2 [facility] MCV Auto (RBC) [Entitic vol] on 03-21-2024 MCV (RBC) [Entitic vol] MCV [Entitic volume] by Automated count 81.0-99.0 [facility] Monocytes Auto (Bld) [#/Vol] on 03-21-2024 Monocytes (Bld) [#/Vol] Automated blood monocyte count 0.3-0.8 [facility] Monocytes/100 WBC Auto (Bld) on 03-21-2024 Monocytes/100 WBC (Bld) Automated monocyte % 1.7-12.0 [facility] Neutrophils Auto (Bld) [#/Vo l]on 03-21-2024 Neutrophils (Bld) [#/Vol] Neutrophils [#/volume] in Blood by Automated count High 1.4-6.5 [facility] Neutrophils/100 WBC Auto (Bl d)on 03-21-2024 Neutrophils/100 WBC (Bld) Automated neutrophil % 43.0-75.0 [facility] No Panel Informationon 03-21 Eosinophils # (Auto) 0.1 10 3/uL 0.0-0.7 [facility] Immature Granulocyte # (Auto) 0.01 10 3/uL 0.00-0.03 [facility] Platelet mean volume Auto (B ld) [Entitic vol]on 03-21-2024 Platelet mean volume (Bld) [Entitic vol] Platelet mean volume [Entitic volume] in Blood by Automated count 9.5-13.5 [facility] Platelets Auto (Bld) [#/Vol] on 03-21-2024 Platelets (Bld) [#/Vol] Platelets [#/volume] in Blood by Automated count 150-450 [facility] RBC Auto (Bld) [#/Vol]on RBC (Bld) [#/Vol] Erythrocytes [#/volu me] in Blood by Automated count 4.20-5.40 [facility] Provider Letteron 02-29-2024 Provider Letter (Inserted Image. Gela ble to display) Cornelius Whittaker [address] [facility] [address] [facility], [place] [address] Re: Cristine Manley Date of Visit: 02/23/2024 Dear Cornelius Garrison MD, Please see attached results on this mutual patient you have with [facility] Result Name Current Result CT Spine Thoracic/Lumbar Myelogram w/Con 02/23/2024 Let me know if you have any questions or concerns. Sincerely, Jaclyn Bliss [facility] Clinical [facility] [employer] Operator C C Providers: Normal [facility] CT Spine Thoracic/Lumbar Mye logram [...] Electronically Signed in Other Vendor System) Normal [facility] PTon 02-23-2024 INR Coag (PPP) [Relative time] 1.0 {INR} Normal <=3.[address] [facility] Comment on above: Result Comment: INR has no normal range. INR Therapeutic range is: 2.0-3.0 (AF, CVA, TIAs, DVT prophylaxis, acute DVT) 2.5-3.5 ([facility] heart valves, recurrent thrombosis/emboli) Performed By: #### P TINR #### [address] [address] PT Coag (PPP) [Time] 10.3 s Normal 9.2-12.0 [facility] Comment on above: Performed By: #### P TINR #### [address] [address] PTTon 02-23-2024 aPTT Coag (Bld) [Time] 24.8 s Normal 19.5-28.[address] [facility] Comment on above: Performed By: #### P TT #### [address] [address] Platelet Counton 02-23-2024 Platelet 300 x10*3/mcL Normal 150-[address] [facility] Comment on above: Performed By: #### P LTS #### [address] [address] XR Hip 2-3 Views Lefton 02-08 XR [...] Electronically Signed in Other Vendor System) Normal [facility] XR Myelography Spine 2 or [...] Electronically Signed in Other Vendor System) Normal [facility] XR Spine Cervical 4 or [...] Electronically Signed in Other Vendor System) Normal [facility] XR Spine Lumbosacral Bending 2-3 [...] Electronically Signed in Other Vendor System) Normal [facility] Neurosurgery Office/Clinic N sherry 02-13-2024 Neurosurgery Office/Clinic Note Chief Complaint Back lumbar pain radiculopathy consult History of Present Illness The patient is a pleasant 64-year-old right-handed female with history of chronic nicotine use, asthma and recently diagnosed COPD for which she is planned to see a wharf attendant in the near future. She also has [...] though does not resolve. Oral narcotics including Big Run which makes pain tolerable though does not [...] Newly diagnosed COPD, scheduled to see a wharf attendant in the near future Chronic nicotine use [...] marijuana use. 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 She denies any Worker's Comp. related claims regarding today's visit FAMILY HISTORY: Lung cancer: Father Diabetes mellitus: Mother Hypertension: Mother Review of Systems Constitutional: [No fevers, chills, sweats] Eye: [No recent visual problems] ENMT: [ (more content not included)... Normal [facility] Provider Letteron 02-13-2024 Provider Letter (Inserted Image. Gela ble to display) Cornelius Garrison MD [facility], [facility] [place] [address] Re: Cristine Manley Date of Visit: 02/13/2024 Dear Cornelius Garrison MD, This patient was recently seen in the neurosurgical office. Please see attached note for further details. Let me know if you have any questions or concerns. Sincerely, DEMARCUS Gan Providers: The following document(s) were included in the letter: February 13, 2024 09:39:53 EST - (02/13/2024) Neurosurgery Office Visit Note Normal [facility] XR knee BI 3V - NOT FOR ER U Sanam 01-24-2024 XR knee BI 3V - NOT FOR ER USE [facility] [address] [place] [address] XRay Report Signed Patient: Cristine Manley MR#: [id number] 54 : 1960 Acct:[id number] Age/Sex: 64 / F ADM Date: 01/24/24 Loc: [facility] Room: Type: [facility] Attending Dr: Alexandro Galvez DO [...] Sunday Graham M.D.01/24/2024 3:45 PM Dictation Location: [place] [address] Transcribed By: [facility] 01/24/24 154 Dictated By: Sunday Graham II, MD 01/24/24 154 Signed By: 01/24/241544 Normal [facility] Basophils Auto (Bld) [#/Vol] on 01-19-2024 Basophils (Bld) [#/Vol] 0.0 10 3/uL 0.0-0.1 [facility] Basophils (Bld) [#/Vol] Automated basophil count 0.0-0.1 [facility] Basophils/100 WBC Auto (Bld) on 01-19-2024 Basophils/100 WBC (Bld) 0.2 % 0.2-2.0 [facility] Basophils/100 WBC (Bld) Automated basophil % 0.2-2.0 [facility] Eosinophils/100 WBC Auto (Bl d)on 01-19-2024 Eosinophils/100 WBC (Bld) 4.3 % 0.9-7.0 [facility] Eosinophils/100 WBC (Bld) Automated eosinophil % 0.9-7.0 [facility] Erythrocyte distribution wid th Auto (RBC) [Ratio]on 01-19-2024 Erythrocyte distribution width (RBC) [Ratio] 13.1 % 11.0-15.0 [facility] Erythrocyte distribution width (RBC) [Ratio] Erythrocyte distribution width [Ratio] by Automated count 11.0-15.0 [facility] Estimated glomerular filtrat ion rate (GFR) non- Americanon 01-19-2024 GFR/1.73 sq M.predicted among non-blacks MDRD (S/P/Bld) [Vol rate/Area] mL/min/{1.73_m2} >=60 mL/min/1.73m 2 [facility] GFR/1.73 sq M.predicted among non-blacks MDRD (S/P/Bld) [Vol rate/Area] Estimated glomerular filtration rate (GFR) non- >=60 mL/min/1.73m 2 [facility] Fibrin D-dimer [Presence] in Platelet poor plasma by Latex agglutinationon 01-19-2024 Fibrin D-dimer LA Ql (PPP) 0.43 mg/L FEU <=0.59 [facility] Comment on above: Increases in D-Dimer [...] Platelet poor plasma by Latex agglutination <=0.59 [facility] Comment on above: Increases in D-Dimer [...] Hematocrit (Bld) [Volume fraction] 39.5 % 36.0-48.0 [facility] Hematocrit (Bld) [Volume fraction] Hematocrit [Volume Fraction] of Blood by Automated count 36.0-48.0 [facility] Hemoglobin [Mass/volume] in Bloodon 01-19-2024 Hemoglobin (Bld) [Mass/Vol] 12.8 g/dL 12.0-16.0 [facility] Hemoglobin (Bld) [Mass/Vol] Hemoglobin [Mass/volume] in Blood 12.0-16.0 [facility] Laboratory - Chemistry and C hemistry - challengeon 01-19-2024 Calcium [Mass/Vol] 9.0 mg/dL 8.5-10.1 [facility] Chloride [Moles/Vol] 105 mmol/L 98-[address] [facility] CO2 [Moles/Vol] 28.7 mmol/L 21.0-32.0 [facility] Creatinine [Mass/Vol] 0.92 mg/dL 0.55-1.02 [facility] GFR/1.73 sq M.predicted MDRD (S/P/Bld) [Vol rate/Area] mL/min/{1.73_m2} >=60 mL/min/1.73m 2 [facility] Glucose [Mass/Vol] 78 mg/dL 74-106 [facility] Potassium [Moles/Vol] 4.0 mmol/L 3.5-5.1 [facility] Sodium [Moles/Vol] 138 mmol/L 136-145 [facility] Urea nitrogen [Mass/Vol] 27.0 mg/dL High 7.0-18.0 [facility] Urea nitrogen/Creatinine [Mass ratio] 29.3 mg/mg [facility] Laboratory - Hematology and Cell countson 01-19-2024 Immature granulocytes/100 WBC (Bld) 0.3 % 0.0-0.5 [facility] Laboratory - Microbiology an d Antimicrobial susceptibilityon 01-19-2024 SARS-CoV-2 (COVID-19) RNA JOSELUIS+probe Ql (Unsp spec) Negative NEGATIVE [facility] Comment on above: This test has [...] (Bld) [#/Vol] 12.6 10 3/uL High 4.0-11.0 [facility] WBC corrected for nucl RBC Auto (Bld) [#/Vol] Leukocytes [#/volume] corrected for nucleated erythrocytes in Blood by Automated coun High 4.0-11.0 [facility] Lymphocytes Auto (Bld) [#/Vo l]on 01-19-2024 Lymphocytes (Bld) [#/Vol] 4.4 10 3/uL High 1.2-3.8 [facility] Lymphocytes (Bld) [#/Vol] Lymphocytes [#/volume] in Blood by Automated count High 1.2-3.8 [facility] Lymphocytes/100 WBC Auto (Bl d)on 01-19-2024 Lymphocytes/100 WBC (Bld) 35.0 % 20.5-60.0 [facility] Lymphocytes/100 WBC (Bld) Lymphocytes/100 leukocytes in Blood by Automated count 20.5-60.0 [facility] MCH Auto (RBC) [Entitic mass ]on 01-19-2024 MCH (RBC) [Entitic mass] 29.4 pg 26.7-34.0 [facility] MCH (RBC) [Entitic mass] MCH [Entitic mass] by Automated count 26.7-34.0 [facility] MCHC Auto (RBC) [Mass/Vol]on 01-19-2024 MCHC (RBC) [Mass/Vol] 32.4 g/dL 29.9-35.2 [facility] MCHC (RBC) [Mass/Vol] MCHC [Mass/volume] by Automated count 29.9-35.2 [facility] MCV Auto (RBC) [Entitic vol] on 01-19-2024 MCV (RBC) [Entitic vol] 90.6 fL 81.0-99.0 [facility] MCV (RBC) [Entitic vol] MCV [Entitic volume] by Automated count 81.0-99.0 [facility] Monocytes Auto (Bld) [#/Vol] on 01-19-2024 Monocytes (Bld) [#/Vol] 1.2 10 3/uL High 0.3-0.8 [facility] Monocytes (Bld) [#/Vol] Automated blood monocyte count High 0.3-0.8 [facility] Monocytes/100 WBC Auto (Bld) on 01-19-2024 Monocytes/100 WBC (Bld) 9.5 % 1.7-12.0 [facility] Monocytes/100 WBC (Bld) Automated monocyte % 1.7-12.0 [facility] Neutrophils Auto (Bld) [#/Vo l]on 01-19-2024 Neutrophils (Bld) [#/Vol] 6.4 10 3/uL 1.4-6.5 [facility] Neutrophils (Bld) [#/Vol] Neutrophils [#/volume] in Blood by Automated count 1.4-6.5 [facility] Neutrophils/100 WBC Auto (Bl d)on 01-19-2024 Neutrophils/100 WBC (Bld) 50.7 % 43.0-75.0 [facility] Neutrophils/100 WBC (Bld) Automated neutrophil % 43.0-75.0 [facility] No Panel Informationon 01-18 Bedside Influenza Type A Antigen Negative [facility] Comment on above: Negative for Flu A p rotein antigen. Infection due to Flu Acannot be ruled out. Flu A antigen in the sample may bebelow the detection limit of the test. Bedside Influenza Type B Antigen Negative [facility] Comment on above: Negative for Flu B p rotein antigen. Infection due to Flu Bcannot be ruled out. Flu B antigen in the sample may bebelow the detection limit of the test. Eosinophils # (Auto) 0.5 10 3/uL 0.0-0.7 [facility] Immature Granulocyte # (Auto) 0.04 10 3/uL High 0.00-0.03 [facility] Troponin I High Sensitivity 5.8 pg/mL 4.0-51.3 [facility] Comment on above: CUT-OFF POINTS HAVE [...] (Bld) [Entitic vol] 9.3 fL Low 9.5-13.5 [facility] Platelet mean volume (Bld) [Entitic vol] Platelet mean volume [Entitic volume] in Blood by Automated count Low 9.5-13.5 [facility] Platelets Auto (Bld) [#/Vol] on 01-19-2024 Platelets (Bld) [#/Vol] 304 10 3/uL 150-450 [facility] Platelets (Bld) [#/Vol] Platelets [#/volume] in Blood by Automated count 150-450 [facility] RBC Auto (Bld) [#/Vol]on RBC (Bld) [#/Vol] 4.36 10 6/uL 4.20-5.40 [facility] RBC (Bld) [#/Vol] Erythrocytes [#/volu me] in Blood by Automated count 4.20-5.40 [facility] Serum or plasma anion gap de terminationon 01-19-2024 Anion gap [Moles/Vol] 8.3 mmol/L [facility] Anion gap [Moles/Vol] Serum or plasma an ion gap determination [facility] Borrelia burgdorferi IgG+IgM Ab [Presence] in Serum by Immunoassayon 10-13-2023 B. burgdorferi IgG+IgM IA Ql (S) Negative Negative [facility] Comment on above: Lyme antibodies not detected. Reflex testing is notindicated.No laboratory evidence of infection with B. burgdorferi(Lyme disease). Negative results may occur in patientsrecently infected (less than or equal to 14 days) with B.burgdorferi. If recent infection is suspected, repeattesting on a new sample collected in 7 to 14 days isrecommended.Performed at: - Lab[address] [id number] Director: Jeovany Bazan PhD, Phone: [phone] Covid-19 PCR (CVDTB)on SARS-CoV-2 (COVID-19) RNA JOSELUIS+probe Ql (Unsp spec) Not detected Normal NOT DETECTED [facility] Comment on above: Result Comment: This test is not yet approved or cleared by the [place] FDA. When there are no FDA-approved or cleared tests available, and other criteria are met, FDA can make tests available under an emergency access mechanism called an Emergency Use Authorization (EUA). The EUA for this test is supported by the [place] of Health and Human Service's (HHS's) declaration [...] SARS-CoV-2. Performed By: #### C VDTBH #### [facility] [address] [place] [address] Dr. Pablo Sheth CBC AUTO DIFFon 12-17-2021 BASO # 0.1 103/ul Normal 0.0-0.1 [facility] Comment on above: Performed By: #### D ATCBC #### [facility] [address] [place] [address] Dr. Pablo Sheth Basophils/100 WBC (Bld) 0.4 % Normal 0.2-2.0 [facility] Comment on above: Performed By: #### D ATCBC #### [facility] [address] [place] [address] Dr. Pablo Sheth EO # 0.3 103/ul Normal 0.0-0.7 [facility] Comment on above: Performed By: #### D ATCBC #### [facility] [address] [place] [address] Dr. Pablo Sheth Eosinophils/100 WBC (Bld) 2.4 % Normal 0.9-7.0 [facility] Comment on above: Performed By: #### D ATCBC #### [facility] [address] [place] [address] Dr. Pablo Sheth Erythrocyte distribution width (RBC) [Ratio] 13.2 % Normal 11.0-15.0 [facility] Comment on above: Performed By: #### D ATCBC #### [facility] [address] [place] [address] Dr. Pablo Sheth Hematocrit (Bld) [Volume fraction] 42.6 % Normal 36.0-48.0 [facility] Comment on above: Performed By: #### D ATCBC #### [facility] [address] [place] [address] [address] Pablo Sheth Hemoglobin (Bld) [Mass/Vol] 13.7 g/dL Normal 12.0-16.0 [facility] Comment on above: Performed By: #### D ATCBC #### [facility] [address] [address] [address] Pablo Sheth IG # 0.05 10e3/ul Critically high 0.00-0.03 [facility] Comment on above: Performed By: #### D ATCBC #### [facility] [address] [address] [address] Pablo Sheth IG % 0.4 % Normal 0.0-0.5 [facility] Comment on above: Performed By: #### D ATCBC #### [facility] [address] [address] [address] Pablo Sheth LYMPH # 2.8 103/ul Normal 1.2-3.8 [facility] Comment on above: Performed By: #### D ATCBC #### [facility] [address] [address] [address] Pablo Sheth Lymphocytes/100 WBC (Bld) 20.9 % Normal 20.5-60.0 [facility] Comment on above: Performed By: #### D ATCBC #### [facility] [address] [address] [address] Pablo Sheth MCH (RBC) [Entitic mass] 29.2 pg Normal 26.7-34.0 [facility] Comment on above: Performed By: #### D ATCBC #### [facility] [address] [address] [address] Pablo Sheth MCHC (RBC) [Mass/Vol] 32.2 g/dL Normal 29.9-35.2 [facility] Comment on above: Performed By: #### D ATCBC #### [facility] [address] [address] [address] Pablo Sheth MCV (RBC) [Entitic vol] 90.8 fL Normal 81.0-99.0 [facility] Comment on above: Performed By: #### D ATCBC #### [facility] [address] [place] [address] Dr. Pablo Sheth MONO # 1.0 103/ul Critically high 0.3-0.8 [facility] Comment on above: Performed By: #### D ATCBC #### [facility] [address] [place] [address] Dr. Pablo Sheth Monocytes/100 WBC (Bld) 7.5 % Normal 1.7-12.0 [facility] Comment on above: Performed By: #### D ATCBC #### [facility] [address] [place] [address] Dr. Pablo Sheth NEUT # 9.2 103/ul Critically high 1.4-6.5 [facility] Comment on above: Performed By: #### D ATCBC #### [facility] [address] [place] [address] Dr. Pablo Sheth Neutrophils/100 WBC (Bld) 68.4 % Normal 43.0-75.0 [facility] Comment on above: Performed By: #### D ATCBC #### [facility] [address] [place] [address] Dr. Pablo Sheth Platelet mean volume (Bld) [Entitic vol] 9.3 fL Critically low 9.5-13.5 [facility] Comment on above: Performed By: #### D ATCBC #### [facility] [address] [place] [address] Dr. Pablo Sheth PLT 313 103/ul Normal 150-450 [facility] Comment on above: Performed By: #### D ATCBC #### [facility] [address] [place] [address] Dr. Pablo Sheth RBC 4.69 106/ul Normal 4.20-5.40 [facility] Comment on above: Performed By: #### D ATCBC #### [facility] [address] [place] [address] Dr. Pablo Sheth WBC 13.4 103/ul Critically high 4.0-11.0 [facility] Comment on above: Performed By: #### D ATCBC #### [facility] [address] [address] [address] Pablo Sheth BERKLEY - TSHon 12-17-2021 TSH 1.241 uIU/mL Normal 0.358-3.740 [facility] Comment on above: Performed By: #### D ATTSH, DATBMP #### [facility] [address] [place] [address] Dr. Pablo Sheth TSH RANGE SEE BELOW Normal [facility] Comment on above: Result Comment: <0.3 4 UIU/ml HYPERTHYROID 0.34-5.60 UIU/ml EUTHYROID >5.60 UIU/ml HYPOTHYROID Performed By: #### D ATTTONYA, DATBMP #### [facility] [address] [place] [address] Dr. Pablo Sheth BERKLEY- BMP WITH LIPIDon 2021 Anion gap [Moles/Vol] 11.9 mmol/L Normal [facility] Comment on above: Performed By: #### D ATTSH, DATBMP #### [facility] [address] [place] [address] Dr. Pablo Sheth Calcium [Mass/Vol] 9.1 mg/dL Normal 8.5-10.1 [facility] Comment on above: Performed By: #### D ATTSH, DATBMP #### [facility] [address] [place] [address] Dr. Pablo Sheth Chloride [Moles/Vol] 104 mmol/L Normal 98-107 [facility] Comment on above: Performed By: #### D ATTSH, DATBMP #### [facility] [address] [place] [address] Dr. Pablo Sheth Cholesterol [Mass/Vol] 207 mg/dL Critically high <=200 [facility] Comment on above: Performed By: #### D ATTSH, DATBMP #### [facility] [address] [place] [address] Dr. Pablo Sheth Cholesterol in HDL [Mass/Vol] 52 mg/dL Normal 40-60 [facility] Comment on above: Performed By: #### D ATTSH, DATBMP #### [facility] [address] [address] [address] Pablo Sheth Cholesterol in LDL [Mass/Vol] 141.4 mg/dL Normal [facility] Comment on above: Performed By: #### D ATTSH, DATBMP #### [facility] [address] [address] [address] Pablo Sheth CO2 [Moles/Vol] 29.3 mmol/L Normal 21.0-32.0 [facility] Comment on above: Performed By: #### D ATTSH, DATBMP #### [facility] [address] [address] [address] Pablo Sheth Creatinine [Mass/Vol] 0.77 mg/dL Normal 0.55-1.02 [facility] Comment on above: Performed By: #### D ATTSH, DATBMP #### [facility] [address] [address] [address] Pablo Sheth EGFR-AF MICRONESIAN >60 Normal >=60 [facility] Comment on above: Performed By: #### D ATTSH, DATBMP #### [facility] [address] [address] [address] Pablo Sheth EGFR-NON AF MICRONESIAN >60 Normal >=60 [facility] Comment on above: Performed By: #### D ATTSH, DATBMP #### [facility] [address] [address] [address] Pablo Sheth Glucose [Mass/Vol] 109 mg/dL Critically high 74-106 [facility] Comment on above: Performed By: #### D ATTSH, DATBMP #### [facility] [address] [address] [address] Pablo Sheth HDL NORMAL > or = 60 mg/dl - LO W CARDIOVASCULAR RISK <40 mg/dl - HIGH CARDIOVASCULAR RISK Normal [facility] Comment on above: Performed By: #### D ATTSH, DATBMP #### [facility] [address] [address] [address] Pablo Sheth LDL CALC NORMAL SEE BELOW Normal [facility] Comment on above: Result Comment: <100 mg/dl OPTIMAL 100 - 129 mg/dl NEAR OR ABOVE OPTIMAL 130 - 159 mg/dl BORDERLINE HIGH 160 - 189 mg/dl HIGH >190 mg/dl VERY HIGH Performed By: #### D ATTTONYA, DATBMP #### [facility] [address] [address] [address] Pablo Sheth Potassium [Moles/Vol] 4.2 mmol/L Normal 3.5-5.1 [facility] Comment on above: Performed By: #### D ATTSH, DATBMP #### [facility] [address] [address] [address] Pablo Sheth Sodium [Moles/Vol] 141 mmol/L Normal 136-145 [facility] Comment on above: Performed By: #### D ATTTONYA, DATBMP #### [facility] [address] [place] [address] Dr. Pablo Sheth Triglyceride [Mass/Vol] 68 mg/dL Normal <=150 [facility] Comment on above: Performed By: #### D JOSE J, DATBMP #### [facility] [address] [address] [address] Pablo Sheth Urea nitrogen [Mass/Vol] 26.0 mg/dL Critically high 7.0-18.0 [facility] Comment on above: Performed By: #### D JOSE J, DATBMP #### [facility] [address] [address] [address] Pablo Sheth Urea nitrogen/Creatinine [Mass ratio] 33.8 mg/mg Normal [facility] Comment on above: Performed By: #### D ATTTONYA, DATBMP #### [facility] [address] [address] [address] Pablo Sheth VLDL CALC 13.6 mg/dL Normal [facility] Comment on above: Performed By: #### D ATTSH, DATBMP #### [facility] [address] [address] [address] Pabol Sheth Vital Signs Date Time Vital Sign Value Performing Clinician Facility 12-06-2024 11:35-0400 Body height 170.18 cm Cornelius Garrison MD Work Phone: [facility] 12-06-2024 11:35-0400 Body mass index (BMI) [Ratio] 25.6 kg/m2 Cornelius Garrison MD Work Phone: [facility] 12-06-2024 11:35-0400 Body weight 74.16 kg Cornelius Garrison MD Work Phone: [facility] 12-06-2024 11:35-0400 Diastolic blood pressure 60 mm[Hg] Cornelius Garrison MD Work Phone: [facility] 12-06-2024 11:35-0400 Heart rate 63 /min Cornelius Garrison MD Work Phone: [facility] 12-06-2024 11:35-0400 Respiratory rate 14 /min Cornelius Garrison MD Work Phone: [facility] 12-06-2024 11:35-0400 SaO2% (BldA) [Mass fraction] 96 % Cornelius Garrison MD Work Phone: [facility] 12-06-2024 11:35-0400 Systolic blood pressure 92 mm[Hg] Cornelius Garrison MD Work Phone: [facility] 11-15-2024 14:38-0400 Body height 170.18 cm Cornelius Garrison MD Work Phone: [facility] 11-15-2024 14:38-0400 Body mass index (BMI) [Ratio] 26.6 kg/m2 Cornelius Garrison MD Work Phone: [facility] 11-15-2024 14:38-0400 Body weight 77.11 kg Cornelius Garrison MD Work Phone: [facility] 11-15-2024 14:38-0400 Diastolic blood pressure 77 mm[Hg] Cornelius Garrison MD Work Phone: [facility] 11-15-2024 14:38-0400 Heart rate 82 /min Cornelius Garrison MD Work Phone: [facility] 11-15-2024 14:38-0400 Systolic blood pressure 116 mm[Hg] Cornelius Garrison MD Work Phone: [facility] 09-27-2024 14:55-0400 Diastolic blood pressure 77 mm[Hg] Cornelius Garrison MD Work Phone: [facility] 09-27-2024 14:55-0400 Heart rate 86 /min Cornelius Garrison MD Work Phone: [facility] 09-27-2024 14:55-0400 Systolic blood pressure 107 mm[Hg] Cornelius Garrison MD Work Phone: [facility] 09-27-2024 14:42-0400 Body height 170.18 cm Cornelius Garrison MD Work Phone: [facility] 09-27-2024 14:42-0400 Body mass index (BMI) [Ratio] 26.4 kg/m2 Cornelius Garrison MD Work Phone: [facility] 09-27-2024 14:42-0400 Body temperature 98.5 [degF] Cornelius Garrison MD Work Phone: [facility] 09-27-2024 14:42-0400 Body weight 76.65 kg Cornelius Garrison MD Work Phone: [facility] 09-27-2024 14:42-0400 SaO2% (BldA) [Mass fraction] 98 % Cornelius Garrison MD Work Phone: [facility] 06-26-2024 08:30-0400 Body height 170.18 cm Cornelius Garrison MD Work Phone: [facility] 06-26-2024 08:30-0400 Body mass index (BMI) [Ratio] 27.6 kg/m2 Cornelius Garrison MD Work Phone: [facility] 06-26-2024 08:30-0400 Body weight 79.94 kg Cornelius Garrison MD Work Phone: [facility] 06-26-2024 08:30-0400 Diastolic blood pressure 107 mm[Hg] Cornelius Garrison MD Work Phone: [facility] 06-26-2024 08:30-0400 Heart rate 80 /min Cornelius Garrison MD Work Phone: [facility] 06-26-2024 08:30-0400 Respiratory rate 12 /min Cornelius Garrison MD Work Phone: [facility] 06-26-2024 08:30-0400 SaO2% (BldA) [Mass fraction] 95 % Cornelius Garrison MD Work Phone: [facility] 06-26-2024 08:30-0400 Systolic blood pressure 168 mm[Hg] Cornelius Garrison MD Work Phone: [facility] 06-05-2024 14:11-0500 Body height 170.2 cm Geoff Moyergovindhenrietta DO Work Phone: [facility] 06-05-2024 14:11-0500 Body mass index (BMI) [Ratio] 27.72 kg/m2 Geoff Comfortcek DO Work Phone: [facility] 06-05-2024 14:11-0500 Body weight 80.29 kg Geoff Moyershyann DO Work Phone: [facility] 04-15-2024 15:14-0500 Body height 170.18 cm Cornelius Garrison MD Work Phone: [facility] 04-15-2024 15:14-0500 Body mass index (BMI) [Ratio] 27.7 kg/m2 Cornelius Garrison MD Work Phone: [facility] 04-15-2024 15:14-0500 Body temperature 98.4 [degF] Cornelius Garrison MD Work Phone: [facility] 04-15-2024 15:14-0500 Body weight 80.28 kg Cornelius Garrison MD Work Phone: [facility] 04-15-2024 15:14-0500 Diastolic blood pressure 82 mm[Hg] Cornelius Garrison MD Work Phone: [facility] 04-15-2024 15:14-0500 Heart rate 83 /min Cornelius Garrison MD Work Phone: [facility] 04-15-2024 15:14-0500 Respiratory rate 20 /min Cornelius Garrison MD Work Phone: [facility] 04-15-2024 15:14-0500 SaO2% (BldA) [Mass fraction] 96 % Cornelius Garrison MD Work Phone: [facility] 04-15-2024 15:14-0500 Systolic blood pressure 128 mm[Hg] Cornelius Garrison MD Work Phone: [facility] 03-29-2024 08:56-0500 Body height 170.18 cm Cornelius Garrison MD Work Phone: [facility] 03-29-2024 08:56-0500 Body mass index (BMI) [Ratio] 27.2 kg/m2 Cornelius Garrison MD Work Phone: [facility] 03-29-2024 08:56-0500 Body weight 78.92 kg Cornelius Garrison MD Work Phone: [facility] 03-29-2024 08:56-0500 Diastolic blood pressure 86 mm[Hg] Cornelius Garrison MD Work Phone: [facility] 03-29-2024 08:56-0500 Heart rate 91 /min Cornelius Garrison MD Work Phone: [facility] 03-29-2024 08:56-0500 SaO2% (BldA) [Mass fraction] 95 % Cornelius Garrison MD Work Phone: [facility] 03-29-2024 08:56-0500 Systolic blood pressure 124 mm[Hg] Cornelius Garrison MD Work Phone: [facility] 03-11-2024 15:29-0500 Body height 170.18 cm Cornelius Garrison MD Work Phone: [facility] 03-11-2024 15:29-0500 Body mass index (BMI) [Ratio] 27.8 kg/m2 Cornelius Garrison MD Work Phone: [facility] 03-11-2024 15:29-0500 Body temperature 97.6 [degF] Cornelius Garrison MD Work Phone: [facility] 03-11-2024 15:29-0500 Body weight 80.73 kg Cornelius Garrison MD Work Phone: [facility] 03-11-2024 15:29-0500 Diastolic blood pressure 80 mm[Hg] Cornelius Garrison MD Work Phone: [facility] 03-11-2024 15:29-0500 Heart rate 82 /min Cornelius Garrison MD Work Phone: [facility] 03-11-2024 15:29-0500 Respiratory rate 20 /min Cornelius Garrison MD Work Phone: [facility] 03-11-2024 15:29-0500 SaO2% (BldA) [Mass fraction] 98 % Cornelius Garrison MD Work Phone: [facility] 03-11-2024 15:29-0500 Systolic blood pressure 134 mm[Hg] Cornelius Garrison MD Work Phone: [facility] 02-08-2024 13:55-0400 Body height 170.18 cm MD Cornelius Garrison Work Phone: [facility] 02-08-2024 13:55-0400 Body mass index (BMI) [Ratio] 27.9 kg/m2 MD Cornelius Garrison Work Phone: [facility] 02-08-2024 13:55-0400 Body weight 80.9 kg MD Cornelius Garrison Work Phone: [facility] 02-08-2024 13:55-0400 Diastolic blood pressure 78 mm[Hg] MD Cornelius Garrison Work Phone: [facility] 02-08-2024 13:55-0400 Heart rate 74 /min MD Cornelius Garrison Work Phone: [facility] 02-08-2024 13:55-0400 SaO2% (BldA) [Mass fraction] 96 % MD Cornelius Garrison Work Phone: [facility] 02-08-2024 13:55-0400 Systolic blood pressure 110 mm[Hg] MD Cornelius Garrison Work Phone: [facility] 01-24-2024 14:35-0400 Body height 170.18 cm MD Cornelius Garrison Work Phone: [facility] 01-24-2024 14:35-0400 Body mass index (BMI) [Ratio] 28.3 kg/m2 MD Cornelius Garrison Work Phone: [facility] 01-24-2024 14:35-0400 Body weight 82.21 kg MD Cornelius Garrison Work Phone: [facility] 01-09-2024 15:17-0400 Body height 167.64 cm [facility] 01-09-2024 15:17-0400 Body mass index (BMI) [Ratio] 28.2 kg/m2 [facility] 01-09-2024 15:17-0400 Body weight 79.37 kg [facility] 01-09-2024 15:17-0400 Diastolic blood pressure 91 mm[Hg] [facility] 01-09-2024 15:17-0400 Heart rate 76 /min [facility] 01-09-2024 15:17-0400 SaO2% (BldA) [Mass fraction] 97 % [facility] 01-09-2024 15:17-0400 Systolic blood pressure 135 mm[Hg] [facility] 11-01-2023 08:57-0400 Body height 167.64 cm [facility] 11-01-2023 08:57-0400 Body mass index (BMI) [Ratio] 28.2 kg/m2 [facility] 11-01-2023 08:57-0400 Body weight 79.37 kg [facility] 11-01-2023 08:57-0400 Diastolic blood pressure 90 mm[Hg] [facility] 11-01-2023 08:57-0400 Heart rate 63 /min [facility] 11-01-2023 08:57-0400 Systolic blood pressure 136 mm[Hg] [facility] 10-13-2023 09:19-0400 Body height 167.64 cm [facility] 10-13-2023 09:19-0400 Body mass index (BMI) [Ratio] 28 kg/m2 [facility] 10-13-2023 09:19-0400 Body weight 78.92 kg [facility] 10-13-2023 09:19-0400 Diastolic blood pressure 76 mm[Hg] [facility] 10-13-2023 09:19-0400 Heart rate 78 /min [facility] 10-13-2023 09:19-0400 SaO2% (BldA) [Mass fraction] 98 % [facility] 10-13-2023 09:19-0400 Systolic blood pressure 118 mm[Hg] [facility] 07-31-2023 10:09-0400 Body height 167.64 cm [facility] 07-31-2023 10:09-0400 Body mass index (BMI) [Ratio] 28.8 kg/m2 [facility] 07-31-2023 10:09-0400 Body weight 80.9 kg [facility] 07-31-2023 10:09-0400 Diastolic blood pressure 89 mm[Hg] [facility] 07-31-2023 10:09-0400 Heart rate 74 /min [facility] 07-31-2023 10:09-0400 Systolic blood pressure 138 mm[Hg] [facility] 12-22-2021 14:20-0400 Blood Pressure Location Mihaela CALVILLO [facility] [place] 12-22-2021 14:20-0400 Diastolic blood pressure 80 mm[Hg] Mihaela CALVILLO [facility] [place] 12-22-2021 14:20-0400 Heart rate 72 /min Mihaela NILL [facility] [place] 12-22-2021 14:20-0400 Respiratory rate 16 /min Mihaela CALVILLO [facility] [place] 12-22-2021 14:20-0400 Systolic blood pressure 116 mm[Hg] Mihaela CALVILLO [facility] [place] Encounters Encounter Date Encounter Type Care Provider Facility Start: 12-06-2024 End: 12-06-2024 ambulatory Cornelius Garrison MD Work Phone: [facility] Work Phone: Start: 12-06-2024 End: 12-06-2024 Patient encounter procedure Cornelius Garrison MD -[facility] Work Phone: Start: 12-02-2024 End: 12-02-2024 ambulatory Cornelius Garrison MD Work Phone: [facility] Work Phone: Start: 12-02-2024 End: 12-02-2024 Departed Referred Cornelius Garrison MD -[facility] Work Phone: Start: 12-02-2024 End: 12-02-2024 ambulatory Cornelius Garrison MD Work Phone: [facility] Work Phone: Start: 12-02-2024 End: 12-02-2024 Patient encounter procedure Cornelius Garrison MD -[facility] Work Phone: Start: 11-26-2024 End: 11-26-2024 ambulatory BRIE MCKAY Facility:[facility] Start: 11-26-2024 End: 11-26-2024 Patient encounter procedure BRIE MCKAY [facility] Start: 11-18-2024 End: 11-18-2024 ambulatory Roselyn Shah Facility:[facility] Start: 11-18-2024 End: 11-18-2024 Patient encounter procedure Roselyn Shah [facility] Start: 11-15-2024 End: 11-15-2024 ambulatory Cornelius Garrison MD Work Phone: [facility] Work Phone: Start: 11-15-2024 End: 11-15-2024 Patient encounter procedure Cornelius Garrisno MD -[facility] Work Phone: Start: 11-13-2024 Non-patient / Non-visit Vera Peace [facility] Work Phone: Start: 11-13-2024 End: 11-13-2024 ambulatory Cornelius Garrison MD Work Phone: [facility] Work Phone: Start: 11-13-2024 End: 11-13-2024 Departed Referred Brie Mckay MD -[facility] Start: 11-13-2024 Non-patient / Non-visit Jules France [facility] Work Phone: Start: 11-13-2024 End: 11-13-2024 ambulatory BRIE MCKAY Facility:[id number] Start: 11-12-2024 Non-patient / Non-visit Delvin Carlos [employer] [facility] Work Phone: Start: 11-07-2024 ambulatory BRIE MCKAY Facility:[facility] [place] Start: 11-04-2024 Non-patient / Non-visit Vera Peace [facility] Work Phone: Start: 11-03-2024 End: 11-03-2024 ambulatory Cornelius Garrison MD Work Phone: [facility] Work Phone: Start: 11-03-2024 End: 11-03-2024 Departed Referred Cornelius Garrison MD -[facility] Start: 11-03-2024 Non-patient / Non-visit Carlin kumari MD -[facility] Work Phone: Start: 10-02-2024 Non-patient / Non-visit Vera Choudhary evelyn [facility] Work Phone: Start: 10-01-2024 End: 10-01-2024 Emergency department patient visit CORNELIUS GARRISON [facility] Start: 09-27-2024 End: 09-27-2024 Patient encounter procedure Cornelius Garrison MD -[facility] Work Phone: Start: 07-30-2024 End: 07-30-2024 ambulatory Cornelius Garrison MD Facility:[facility] Start: 07-22-2024 End: 07-22-2024 ambulatory [facility] Start: 07-08-2024 End: 07-08-2024 ambulatory Duong Oreilly MD Facility: [facility] Start: 06-26-2024 End: 06-26-2024 ambulatory Cornelius Garrison MD Work Phone: [facility] Work Phone: Start: 06-26-2024 End: 06-26-2024 Patient encounter procedure Cornelius Garrison MD Work Phone: [facility] Work Phone: Start: 06-17-2024 End: 06-17-2024 ambulatory Duong Oreilly MD Facility:[facility] Start: 06-06-2024 End: 06-06-2024 ambulatory Cornelius Garrison MD Facility:[facility] Start: 06-05-2024 End: 06-05-2024 Office outpatient new 45 minutes Geoff Walker DO Work Phone: [facility] Comment on above: Thyroid nodule (CMS/ HCC) (Primary Dx) Start: 06-05-2024 End: 06-05-2024 Bamboo flowsheet Geoff Walker DO Work Phone: [facility] Start: 06-05-2024 End: 06-05-2024 Bamboo flowsheet Geoff Walker DO Work Phone: [facility] Start: 06-05-2024 End: 06-05-2024 ambulatory GEOFF WALKER Not Available Start: 05-13-2024 End: 05-13-2024 ambulatory Duong Oreilly MD Facility:[facility] Start: 05-10-2024 ambulatory Cornelius Garrison MD Work Phone: [facility] Work Phone: Start: 05-10-2024 Non-patient / Non-visit Cornelius Garrison MD Work Phone: [facility] Work Phone: Start: 04-29-2024 End: 04-29-2024 ambulatory Duong Oreilly MD Facility:[facility] Start: 04-22-2024 End: 04-22-2024 ambulatory Cornelius Garrison MD Work Phone: [facility] Work Phone: Start: 04-22-2024 End: 04-22-2024 Departed Referred Cornelius Garrison MD Work Phone: [facility] Start: 04-22-2024 End: 04-22-2024 ambulatory Cornelius Garrison MD Facility:[facility] Start: 04-15-2024 End: 04-15-2024 ambulatory Cornelius Garrison MD Work Phone: [facility] Work Phone: Start: 04-15-2024 End: 04-15-2024 Patient encounter procedure Cornelius Garrison MD Work Phone: [facility] Work Phone: Start: 04-01-2024 End: 04-01-2024 Patient encounter procedure Kane Parker DO Work Phone: [facility] Comment on above: Lumbosacral radiculo bakari (Primary Dx); Numbness and tingling Start: 04-01-2024 End: 04-01-2024 ambulatory KANE PARKER Not Available Start: 04-01-2024 End: 04-01-2024 Bamboo flowsheet Kane Parker DO Work Phone: [facility] Start: 04-01-2024 End: 04-01-2024 Bamboo flowsheet Kane Parker DO Work Phone: [facility] Start: 03-29-2024 End: 03-29-2024 Patient encounter procedure Cornelius Garrison MD Work Phone: [facility] Work Phone: Start: 03-25-2024 End: 03-25-2024 ambulatory Cornelius Garrison MD Facility:[facility] Start: 03-21-2024 Non-patient / Non-visit Cornelius Garrison MD Work Phone: [facility] Work Phone: Start: 03-11-2024 End: 03-11-2024 Patient encounter procedure Cornelius Garrison MD Work Phone: [facility] Work Phone: Start: 03-04-2024 Non-patient / Non-visit Cornelius Garrison MD Work Phone: [facility] Work Phone: Start: 03-04-2024 End: 03-04-2024 Patient encounter procedure Cornelius Garrison MD Work Phone: [facility] Work Phone: Start: 03-04-2024 End: 03-04-2024 ambulatory Cornelius Garrison Facility:[facility] Start: 02-23-2024 End: 02-23-2024 ambulatory Cornelius Garrison MD Facility:[facility] Start: 02-19-2024 End: 02-19-2024 ambulatory Cornelius Garrison MD Facility:[facility] Start: 02-13-2024 End: 02-13-2024 ambulatory Cornelius Garrison MD Facility:[facility] Start: 02-08-2024 End: 02-08-2024 ambulatory MD Cornelius Garrison Work Phone: [facility] Work Phone: Start: 02-08-2024 End: 02-08-2024 Patient encounter procedure MD Cornelius Garrison Work Phone: [facility] Work Phone: Start: 02-07-2024 Non-patient / Non-visit MD Mala Garrison Work Phone: [facility] Work Phone: Start: 02-01-2024 Non-patient / Non-visit Cornelius Garrison MD Work Phone: [facility] Work Phone: Start: 01-24-2024 End: 01-24-2024 ambulatory MD Cornelius Garrison Work Phone: [facility] Work Phone: Start: 01-24-2024 End: 01-24-2024 Patient encounter procedure MD Cornelius Garrison Work Phone: [facility] Work Phone: Start: 01-24-2024 End: 01-24-2024 Patient encounter procedure MD Cornelius Garrison Work Phone: [facility] Start: 01-24-2024 End: 01-24-2024 ambulatory MD Cornelius Garrison Work Phone: [facility] Work Phone: Start: 01-19-2024 Non-patient / Non-visit MD Mala Garrison Work Phone: [facility] Work Phone: Start: 01-19-2024 Non-patient / Non-visit MD Mala Garrison Work Phone: [facility] Work Phone: Start: 01-09-2024 End: 01-09-2024 ambulatory [facility] Work Phone: Start: 01-09-2024 End: 01-09-2024 Patient encounter procedure [facility] Work Phone: Start: 11-01-2023 End: 11-01-2023 ambulatory [facility] Work Phone: Start: 11-01-2023 End: 11-01-2023 Patient encounter procedure [facility] Work Phone: Start: 10-13-2023 End: 10-13-2023 ambulatory [facility] Work Phone: Start: 10-13-2023 End: 10-13-2023 Patient encounter procedure [facility] Work Phone: Start: 07-31-2023 End: 07-31-2023 ambulatory [facility] Work Phone: Start: 07-31-2023 End: 07-31-2023 Patient encounter procedure [facility] Work Phone: Start: 05-26-2023 Non-patient / Non-visit [facility] Work Phone: Start: 02-01-2022 End: 02-01-2022 Patient encounter procedure Mihaela CALVILLO General [facility] Start: 01-13-2022 Encounter for preprocedural laboratory examination DR MIHAELA CALVILLO [facility] Start: 01-12-2022 End: 01-12-[address] CORNELIUS GARRISON Facility:[facility] Start: 01-10-2022 End: 01-11-[address] MIHAELA CALVILLO Facility:[facility] Start: 01-10-2022 End: 01-11-2022 Encounter for preprocedural laboratory examination DR MIHAELA CALVILLO Facility:[facility] Start: 12-22-2021 End: 12-22-2021 Patient encounter procedure Mihaela Miguel Angel NILL General Surgery [facility] Start: 12-17-2021 End: 12-18-[address] DOCTOR HENRY Facility:[facility] Procedures Date Procedure Procedure Detail Performing Clinician Start: 12-02-2024 Urine culture Cornelius Garrison MD Work Phone: Start: 11-03-2024 Urine culture Cornelius Garrison MD Work Phone: Start: 04-01-2024 End: 04-01-2024 Needle emg ea [...] Mihaela HALL Repair of vaginal tear Ebenezer CALVILLO Tonsillectomy Mihaela CALVILLO Plan of Treatment Date Care Activity Detail Author Start: 01-13-2032 Screening for malign ant neoplasm of colon [facility] Start: 06-10-2025 End: 06-10-2025 Patient encounter procedure 06/10/2025 8:45 AM EST Office Visit [facility] [address] [place] [id number] Geoff Walker, DO [address] [place] [address] [facility] Start: 12-02-2024 Bacteria identified in Urine by Culture Urine Culture [facility] Start: 12-02-2024 Urine culture [facility] Start: 11-03-2024 Bacteria identified in Urine by Culture Urine Culture [facility] Start: 11-03-2024 Urine culture [facility] Start: 06-26-2024 Patient referral [facility] Work Phone: Start: 06-05-2024 End: 06-05-2024 Patient encounter procedure 06/05/2024 2:30 PM EST Office Visit [facility] [address] [place] [address] Geoff Walker, DO [address] [place] [address] Arrived [facility] KENDALL Comment on above: Arrived Start: 05-10-2024 Patient referral [facility] Work Phone: Start: 04-05-2024 Patient referral [facility] Work Phone: Start: 04-01-2024 End: 04-01-2024 Patient encounter procedure 04/01/2024 3:00 PM EST Procedure Visit [facility] [address] [place] [address] Kane Parker, [address] [place] [address] Arrived [facility] Comment on above: Arrived Start: 01-24-2024 X-ray of both knees, three views XR knee BI 3V - NOT FOR ER USE [facility] Start: 01-24-2024 XR Knee - bilateral 3 Views [facility] Start: 01-22-2024 Pneumococcal Vaccine : 65+ Years (1 of 1 - PCV) Pneumococcal Vaccine: 65+ Years (1 of 1 - PCV) [facility] Start: 01-10-2024 Patient referral [facility] Work Phone: Start: 12-10-2023 Influenza vaccination [...] [facility] CT Unspecified body region [facility] CT Unspecified body region [facility] DXA Skeletal system.axial Views for bone density [facility] Patient Education Low back pain in adults [facility] Work Phone: Patient referral [facility] Work Phone: Urine culture [facility] US Lower extremity v ein - right [facility] US Thyroid gland [facility] Immunizations Immunization Date Immunization Notes Care Provider Fa cility 03-11-2024 diphtheria, tetanus toxoids and acellular pertussis vaccine, unspecified formulation Cornelius Garrison MD Work Phone: [facility] 03-29-2021 COVID-19 mRNA, Comirnaty (Pfizer) [facility] 08-11-2020 COVID-19 mRNA, Comirnaty (Pfizer) [facility] 07-21-2020 COVID-19 mRNA, Comirnaty (Pfizer) [facility] 10-07-2018 diphtheria, tetanus toxoids and acellular pertussis vaccine, unspecified formulation [facility] 02-05-2014 tetanus and diphther ia toxoids, adsorbed, preservative free, for adult use (5 Lf of tetanus toxoid and 2 Lf of diphtheria toxoid) [facility] Payers Date Payer Category Payer Private Health Insurance [id number] 2024 Other GENERIC OTHER Sd mber [id number] 2024 Unknown [id number] 2024 Medicare [id number] 2024 Medicare [id number] 2023 Unknown 1959 Self-pay [id number] 1959 Unknown [id number] 2.16.840.1.644412.3.579.2 .593 1959 Unknown [id number] 2.16.840.1.201129.3.579.2 .593 1959 Unknown [id number] 2.16.840.1.951372.3.579.2 .1259 1959 Unknown [id number] 2.16.840.1.197639.3.579.2 .1259 1959 Unknown [id number] 2.16.840.1.305361.3.579.2 .196 1959 Unknown [id number] 2.16.840.1.438968.3.579.2 .196 1959 Unknown [id number] 2.16.840.1.299242.3.579.2 .196 1959 Unknown [id number] 2.16.840.1.471590.3.579.2 .196 1959 Unknown [id number] 2.16.840.1.945281.3.579.2 .196 1959 Unknown [id number] 2.16.840.1.687436.3.579.2 .196 1959 Unknown [id number] 2.16.840.1.382646.3.579.2 .196 1959 Unknown [id number] 2.16.840.1.701714.3.579.2 .196 1959 Unknown [id number] 2.16.840.1.535720.3.579.2 .196 1959 Unknown [id number] 2.16.840.1.947440.3.579.2 .196 1959 Unknown [id number] 2.16.840.1.353971.3.579.2 .196 1959 Unknown [id number] 2.16.840.1.750677.3.579.2 .196 1959 Unknown [id number] 2.16.840.1.737273.3.579.2 .1286 1959 Unknown [id number] 2.16.840.1.718146.3.579.2 .727 1959 Unknown [id number] 2.16.840.1.029411.3.579.2 .727 1959 Unknown [id number] 2.16.840.1.523550.3.579.2 .727 1959 Unknown [id number] 2.16.840.1.368443.3.579.2 .727 1959 Unknown [id number] 2.16.840.1.785403.3.579.2 .727 Private Health Insurance A[employer]na [facility] P[facility] G [id number] Unknown [id number] Unknown [id number] 2.16.840.1.791337.3.579.2 .593 Unknown MMO [employer] [id number] Social History Date Type Detail Facility Start: 12-22-2021 End: 11-26-2024 Heavy tobacco smoker (finding) [facility] Start: 06-05-2024 Female General [facility] Start: 07-31-2023 End: 04-15-2024 Tobacco smoking status NHIS Smoker (finding) [facility] Start: 1960 Sex Assigned At Female F [facility] Tobacco smoking stat us NYIS Tobacco smoking consumption unknown [facility] Start: 1960 Sex assigned at Not on file [facility] Start: 06-21-2022 End: 04-15-2024 Sex Female (finding) [facility] Start: 06-05-2024 End: 11-04-2024 Tobacco smoking status NYIS Smokes tobacco daily [facility] History of tobacco use Cigarette Smoker [facility] Start: 06-05-2024 Tobacco use and exposure Smokeless tobacco non-user [facility] Start: 06-05-2024 Alcoholic beverage intake Ex-drinker (finding) [facility] Start: 06-05-2024 History of Social function [facility] Sexual Orientation [facility] Functional Status Date Assessment Result Facility 12-22-2021 N/A [facility] Clinical Notes 01-12-2022 to 11-26-2024 Note Date & Type Note Facility 11-26-2024 Hospital Discharg e instructions Patient Education 11/26/2024 09:29:32 Steps to Quit Smoking Steps to Quit Smoking Smoking tobacco is the leading cause of preventable . It can affect almost every organ in the body. Smoking puts you and those around you at risk for developing many serious chronic diseases. Quitting smoking can be very challenging. Do not get discouraged if you are not successful the first time. Some people need to make many attempts to quit before they achieve long-term success. Do your best to stick to your quit plan, and talk with your health care provider if you have any questions or concerns. How do I get ready to quit? When you decide to quit smoking, create a plan to help you succeed. Before you quit: Pick a date to quit. Set a date within the next 2 weeks to give you time to prepare. Write down the reasons why you are quitting. Keep this list in places where you will see it often. Tell your family, friends, and co-workers that you are quitting. Support from people you are close to can make quitting easier. Talk with your health care provider about your options for quitting smoking. Find out what treatment options are covered by your health insurance. Identify people, places, things, and activities that make you want to smoke (triggers). Avoid them. What first steps can I take to quit smoking? Throw away all cigarettes at home, at work, and in your car. Throw away smoking accessories, such as ashtrays and lighters. Clean your car. Make sure to empty the ashtray. Clean your home, including curtains and carpets. What strategies can I use to quit smoking? Talk with your health care provider about combining strategies, such as taking medicines while you are also receiving in-person counseling. Using these two strategies together makes you more likely to succeed in quitting than if you used either strategy on its own. If you are or , talk with your health care provider about finding counseling or other support strategies to quit smoking. Do not take medicine to help you quit smoking unless your health care provider tells you to. Quit right away Quit smoking completely, instead of gradually reducing how much you smoke over a period of time. Stopping smoking right away may be more successful than gradually quitting. Attend in-person counseling to help you build problem-solving skills. You are more likely to succeed in quitting if you attend counseling sessions regularly. Even short sessions of 10 minutes can be effective. Take medicine You may take medicines to help you quit smoking. Some medicines require a prescription. You can also purchase uksy-snq-yrudrkb medicines. Medicines may have nicotine in them to replace the nicotine in cigarettes. Medicines may: Help to stop cravings. Help to relieve withdrawal symptoms. Your health care provider may recommend: Nicotine patches, gum, or lozenges. Nicotine inhalers or sprays. Non-nicotine medicine that you take by mouth. Find resources Find resources and support systems that can help you quit smoking and remain smoke-free after you quit. These resources are most helpful when you use them often. They include: Online chats with a counselor. Telephone quitlines. Printed self-help materials. Support groups or group counseling. Text messaging programs. Mobile phone apps or applications. Use apps that can help you stick to your quit plan by providing reminders, tips, and encouragement. Examples of free services include Quit Guide from the CDC and smokefree.gov What can I do to make it easier to quit? Reach out to your family and friends for support and encouragement. Call telephone quitlines, such as 8-207-QFVC-NOW, reach out to support groups, or work with a counselor for support. Ask people who smoke to avoid smoking around you. Avoid places that trigger you to smoke, such as bars, parties, or smoke-break areas at work. Spend time with people who do not smoke. Lessen the stress in your life. Stress can be a smoking trigger for some people. To lessen stress, try: ?Exercising regularly. ?Doing deep-breathing exercises. ?Doing yoga. ?Meditating. What benefits will I see if I quit smoking? Over time, you should start to see positive results, such as: Improved sense of smell and taste. Decreased coughing and sore throat. Slower heart rate. Lower blood pressure. Clearer and healthier skin. The ability to breathe more easily. Fewer sick days. Summary Quitting smoking can be very challenging. Do not get discouraged if you are not successful the first time. Some people need to make many attempts to quit before they achieve long-term success. When you decide to quit smoking, create a plan to help you succeed. Quit smoking right away, not slowly over a period of time. Find resources and support systems that can help you quit smoking and remain smoke-free after you quit. This information is not intended to replace advice given to you by your health care provider. Make sure you discuss any questions you have with your health care provider. Document Revised: 03/18/2022 Document Reviewed: 03/18/2022 [email or web address] Patient Education 2023 Trend[employer]. 11/26/2024 09:15:52 Bladder Cancer Bladder Cancer Bladder cancer is a condition where abnormal tissue (a tumor) grows in the bladder. The bladder is the organ that holds urine. Two tubes (ureters) carry urine from the kidneys to the bladder. The bladder wall is made of layers of tissue. Cancer that spreads through these layers of the bladder wall becomes more difficult to treat. What increases the risk? The following factors may make you more likely to develop this condition: Smoking. Working where there are risks (occupational exposures), such as working with rubber, leather, clothing fabric, dyes, chemicals, or paint. Being 55 years of age or older. Being male. Having long-term bladder inflammation. Having a history of cancer. This includes: ?A family history of bladder cancer. ?Having had bladder cancer before. ?Having had certain treatments for cancer before, such as: ?Medicines to kill cancer cells (chemotherapy). ?Strong X-ray beams or high-energy capsules to kill cancer cells and shrink tumors (radiation therapy). Having been exposed to arsenic. This is a poisonous substance. What are the signs or symptoms? Early symptoms of this condition include: Blood in your urine. Pain when urinating. Infections of your urinary system (urinary tract infections or UTIs) that happen often. Having to urinate sooner or more often than normal. Late symptoms of this condition include: Not being able to urinate. Pain on one side of your lower back. Loss of appetite. Weight loss. Tiredness (fatigue). Swelling in your feet. Bone pain. How is this diagnosed? This condition is diagnosed based on: Your medical history. A physical exam. Lab tests, such as urine tests. Imaging tests. Your symptoms. You may also have other tests or procedures, such as: A cystoscopy. This involves putting a narrow tube into your urethra. The urethra is the organ that carries urine from your bladder to the outside of your body. This procedure is done to view the lining of your bladder for tumors. A biopsy. This involves removing a tissue sample to look at under a microscope to check for cancer. Blood tests or imaging tests may be needed. These show how far into the bladder wall cancer has grown, and if cancer has spread to any other parts of your body. Tests may include: CT scan. MRI. Bone scan. X-ray. How is this treated? Your health care provider may recommend one or more types of treatment based on the stage of your cancer. The most common treatments are: Surgery to remove the cancer. Types of surgeries include: ?Removing a tumor on the inside wall of the bladder (transurethral resection). ?Removing the bladder (cystectomy). Radiation therapy. This is often combined with chemotherapy. Chemotherapy. Immunotherapy. This uses medicines to help your body's disease-fighting system (immune system) destroy cancer cells. Follow these instructions at home: Take qkct-wqm-ptnoarv and prescription medicines only as told by your health care provider. If you were prescribed an antibiotic medicine, take it as told by your health care provider. Do not stop using the antibiotic even if you start to feel better. Eat a healthy diet. Some treatments might affect your appetite. Do not use any products that contain nicotine or tobacco. These products include cigarettes, chewing tobacco, and vaping devices, such as e-cigarettes. If you need help quitting, ask your health care provider. Consider joining a support group. This may help you learn to deal with the stress of having bladder cancer. Tell your cancer care team if you develop side effects. Your team may be able to recommend ways to get relief. Keep all follow-up visits. This is important. Where to find more information [place] [employer] (ACS): cancer.org National Cancer [place] (NCI): cancer.gov Contact a health care provider if: You have symptoms of a UTI. These include: ?Fever. ?Chills. ?Weakness. ?Muscle aches. ?Pain in your abdomen. ?Urge to urinate that is stronger and happens more often than normal. ?Burning in the bladder or urethra when you urinate. Get help right away if: There is blood in your urine. You cannot urinate. You have severe pain or other symptoms that do not go away. Summary Bladder cancer is a condition where tumors grow in the bladder. Diagnosis is based on your medical history, a physical exam, lab tests, imaging tests, and your symptoms. Your health care provider may recommend one or more types of treatment based on the stage of your cancer. Consider joining a support group. This may help you learn to deal with the stress of having bladder cancer. This information is not intended to replace advice given to you by your health care provider. Make sure you discuss any questions you have with your health care provider. Document Revised: 03/07/2022 Document Reviewed: 03/07/2022 [email or web address] Patient Education 2023 Trendr. Follow Up Care 11/13/2024 13:19:08 With:BRIE MCKAY MD, URL Address: When: Unknown [facility] 11-26-2024 Note Patient Education Oncology Bladder Cancer Bladder cancer is a condition where abnormal tissue (a tumor) grows in the bladder. The bladder is the organ that holds urine. Two tubes (ureters) carry urine from the kidneys to the bladder. The bladder wall is made of layers of tissue. Cancer that spreads through these layers of the bladder wall becomes more difficult to treat. What increases the risk? The following factors may make you more likely to develop this condition: ??? Smoking. ??? Working where there are risks (occupational exposures), such as working with rubber, leather, clothing fabric, dyes, chemicals, or paint. ??? Being 55 years of age or older. ??? Being male. ??? Having long-term bladder inflammation. ??? Having a history of cancer. This includes: ? A family history of bladder cancer. ? Having had bladder cancer before. ? Having had certain treatments for cancer before, such as: ? Medicines to kill cancer cells (chemotherapy). ? Strong X-ray beams or high-energy capsules to kill cancer cells and shrink tumors (radiation therapy). ??? Having been exposed to arsenic. This is a poisonous substance. What are the signs or symptoms? Early symptoms of this condition include: ??? Blood in your urine. ??? Pain when urinating. ??? Infections of your urinary system (urinary tract infections or UTIs) that happen often. ??? Having to urinate sooner or more often than normal. Late symptoms of this condition include: ??? Not being able to urinate. ??? Pain on one side of your lower back. ??? Loss of appetite. ??? Weight loss. ??? Tiredness (fatigue). ??? Swelling in your feet. ??? Bone pain. How is this diagnosed? This condition is diagnosed based on: ??? Your medical history. ??? A physical exam. ??? Lab tests, such as urine tests. ??? Imaging tests. ??? Your symptoms. You may also have other tests or procedures, such as: ??? A cystoscopy. This involves putting a narrow tube into your urethra. The urethra is the organ that carries urine from your bladder to the outside of your body. This procedure is done to view the lining of your bladder for tumors. ??? A biopsy. This involves removing a tissue sample to look at under a microscope to check for cancer. Blood tests or imaging tests may be needed. These show how far into the bladder wall cancer has grown, and if cancer has spread to any other parts of your body. Tests may include: ??? CT scan. ??? MRI. ??? Bone scan. ??? X-ray. How is this treated? Your health care provider may recommend one or more types of treatment based on the stage of your cancer. The most common treatments are: ??? Surgery to remove the cancer. Types of surgeries include: ? Removing a tumor on the inside wall of the bladder (transurethral resection). ? Removing the bladder (cystectomy). ??? Radiation therapy. This is often combined with chemotherapy. ??? Chemotherapy. ??? Immunotherapy. This uses medicines to help your body's disease-fighting system (immune system) destroy cancer cells. Follow these instructions at home: ??? Take kqwr-cbe-rbyifbo and prescription medicines only as told by your health care provider. ??? If you were prescribed an antibiotic medicine, take it as told by your health care provider. Do not stop using the antibiotic even if you start to feel better. ??? Eat a healthy diet. Some treatments might affect your appetite. ??? Do not use any products that contain nicotine or tobacco. These products include cigarettes, chewing tobacco, and vaping devices, such as e-cigarettes. If you need help quitting, ask your health care provider. ??? Consider joining a support group. This may help you learn to deal with the stress of having bladder cancer. ??? Tell your cancer care team if you develop side effects. Your team may be able to recommend ways to get relief. ??? Keep all follow-up visits. This is important. Where to find more information ??? [place] [employer] (ACS): cancer.org ??? National Cancer [place] (NCI): cancer.gov Contact a health care provider if: ??? You have symptoms of a UTI. These include: ? Fever. ? Chills. ? Weakness. ? Muscle aches. ? Pain in your abdomen. ? Urge to urinate that is stronger and happens more often than normal. ? Burning in the bladder or urethra when you urinate. Get help right away if: ??? There is blood in your urine. ??? You cannot urinate. ??? You have severe pain or other symptoms that do not go away. Summary ??? Bladder cancer is a condition where tumors grow in the bladder. ??? Diagnosis is based on your medical history, a physical exam, lab tests, imaging tests, and your symptoms. ??? Your health care provider may recommend one or more types of treatment based on the stage of your cancer. ??? Consider joining a support group. This may help you learn to deal with the stress of having bladder cancer. This information is n (more content not included)... [facility] 09-27-2024 Evaluation note Diagnosis Onset Date Resolution Gastroenteritis acute September 2:23pm Lumbar radiculopathy, chronic acute September 27, 2024 2:23pm [facility] Work Phone: 1(292) 192-989206-20-2025 Evaluation note* Diagnosis Onset Date Resolution Status Admit Date Gastroenteritis acute September 2:23pm Lumbar radiculopathy, chronic acute September 27, 2024 2:23pm Bladder mass acute November 15, 2024 2:27pm [facility] Work Phone: 1(178) 490-802806-20-2025 Evaluation note* Diagnosis Onset Date Resolution Status Admit Date Gastroenteritis acute September 2:23pm Lumbar radiculopathy, chronic acute September 27, 2024 2:23pm Bladder mass acute November 15, 2024 2:27pm Lumbar radiculopathy, chronic acute November 15, 2024 2:27pm Bladder cancer acute November 11:24am Febrile illness acute December 022024 11:24am Left flank pain acute December 022024 11:24am [facility] Work Phone: 1(648) 499-395902-26-2025 History of Present illness Narrative* Geoff Walker, DO - 06/05/2024 2:30 PM EST Subjective Patient ID: HPI 64-year-old female referred for a right thyroid mass. This was found during a workup for something else. Ultrasound was done showing a 2.8 cm inferior based right thyroid mass. FNA was performed which came back as Meally III, Afirma testing was then done showing [...] back in 1 year documented in this encounterProgress [facility] [id number] Hospital Discharge instructionsAmbulatory Orders* Referral to ENT Time Frame: 05/10/24, Location: [facility] Work Phone: 1(430) 805-199912-23-2024 History of Present illness Narrative* BRENDA Nuñez - 04/01/2024 3:00 PM EST Images from the original note were not included. 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 documented in this encounterProgress West [id number] Evaluation note* Diagnosis Onset Date Resolution Status Admit Date Lumbar radiculopathy, chronic acute March 29, 2024 8:45am Pain in posterior right lowe r extremity acute March 29 2 024 8:45am Right thyroid nodule acute Dece 2023 8:45am Cigarette nicotine dependenc e with nicotine-induced disorder acute J anuary 2024 3:12pm Encounter for screening for lung cancer acute April 15 3:12pm shelter (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 of 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 acute April 15 3:12pm Moderate persistent asthma, uncomplicated acute April 15 3:12pm Lumbar radiculopathy, chronic acute June 26, 2024 8:28am [facility] Work Phone: 1(160) 891-489512-02-2024 Evaluation note* Diagnosis Onset Date Resolution Status [...] for lung cancer acute April 15 3:12pm 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 Thank you for choosing [facility] for your care.[facility]10-31-2024 Evaluation note* Diagnosis Onset Date Resolution [...] 2 024 8:45am Right thyroid nodule acute 2023 8:45am Cigarette nicotine dependenc e with nicotine-induced disorder acute J anuary 2024 3:12pm Encounter for screening for lung cancer acute April 15 3:12pm shelter (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 of 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 acute April 15 3:12pm Moderate persistent asthma, uncomplicated acute April 15 3:12pm [facility] Work Phone: 1(440) 172-254810-16-2024 Evaluation note* Diagnosis Onset Date Resolution Status [...] uncomplicated acute April 15 3:12pm [facility] Work Phone: 1(411) 432-260210-05-2022 NoteOPERATIVE NOTE OPERATION DATE: 01/12/2022 PREOPERATIVE DIAGNOSIS: Epigastric abdominal pain, as well as need for colorectal screening. POSTOPERATIVE DIAGNOSIS: Antral ulcers x2 with no active bleeding, small hiatal hernia, redundant colon with sigmoid diverticulosis, as well as 2 mm rectal polyp. PROCEDURE: EGD with antral biopsy x2 of antral ulcers, colonoscopy to cecum with cold forceps polypectomy x1 for rectal polyp. SURGEON: Mihaela Calvillo M.D. ANESTHESIA: Monitored anesthesia care. ESTIMATED BLOOD [...] of the polyp. CC: Cornelius Garrison M.D.[facility] + Plan note No data available for this section General Surgery [place] Evaluation + Plan note Future Appointments Appointment Date:11/26/2024 08:45:00 AM Scheduled Provider:BRIE MCKAY MD Location:[facility] Appointment Type:URO Office Visit [facility] evaluation + Plan note Future Appointments Appointment Date:03/07/2025 09:00:00 AM Scheduled Provider: Location:[facility] Appointment Type:Urology CALL PAT FT Appointment Date:03/10/2025 01:00:00 PM Scheduled Provider: Location:[facility] Appointment Type:Urology FT [facility] Evaluation note* Diagnosis Onset Date Resolution Status Lumbar radiculopathy, chronic acute [facility] Work Phone: evaluation note* Diagnosis Onset Date Resolution Status Lumbar radiculopathy, chronic acute Headache acute Joint pain acute Tick bite acute [facility] Work Phone: evaluation note* Diagnosis Onset Date Resolution Status Headache acute Joint pain acute Tick bite acute Chronic obstructive pulmonary disease, unspecified acute Lumbar radiculopathy, chronic acute [facility] Work Phone: evaluation note* Diagnosis Onset Date Resolution Status Chronic obstructive pulmonary disease, unspecified acute Lumbar radiculopathy, chronic acute Bilateral knee pain acute COPD exacerbation acute Lumbar pain acute Lumbar radiculopathy, chronic acute Bilateral knee pain acute Primary osteoarthritis of both knees acute [facility] Work Phone: evaluation note* Diagnosis Onset Date Resolution Status Bilateral knee pain acute COPD exacerbation acute Lumbar pain acute Lumbar radiculopathy, chronic acute Bilateral knee pain acute Primary osteoarthritis of both knees acute Menopause acute [facility] Work Phone: Evaluation note* Diagnosis Lumbosacral radiculopathy- Primary Thoracic or lumbosacral neuritis or radiculitis, unspecified Numbness and tingling Disturbance of skin sensation documented in this encounter [facility] HealthcareEvaluation note* Diagnosis Thyroid nodule (CMS/HCC)- Primary Nontoxic uninodular goiter documented in this encounter [facility] Discharge instructions No data available for this section General Surgery [place] [facility] Discharge instructionsAmbulatory Orders* Referral to Orthopedics Time Frame: 06/26/24, Location: None [facility] Work Phone: Progress note No data available for this section General Surgery [place] Reason for referral (narrative)No reason for referral information availableK[facility] Work Phone: Realss for visit Narrative* Other Medical (Routine) - Closed Specialty Diagnoses / Procedures Referred By Contac t Referred To Contact Neurology Diagnoses Neuralgia and neuritis, unspecified Procedures SC NEEDLE EMG EA EXTREMTY W/PARASPINL AREA COMPLETE SC NERVE CONDUCTION STUDIES 9-10 STUDIES Ofelia Arceo PA-C [address] [place] [address] Phone: tel: fax: Cecil Fields MD [address] [place] [address] Phone: tel: fax: Referral ID Status Reason Start Date Expiration Date V isits Requested Visits Authorized [id number] Closed Perform Procedure 03/27/2024 09/23/2024 1 1 [facility] Summary Purpose Family History Relationship Condition [...] Advance Directives No March 11, 2024 5:03pm Advance Directive Response Recorded Date/ Time Advance Directives No November 04 8:42am Chief Complaint and Reason for Visit Chief [...] Back & Knee Pain-HIGH RISK March 8:45am [employer]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 COPD April 15, [...] for lung cancer April 15, 2024 3:12pm shelter (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 of inhaled stero ids April [...] Lumbar radiculopathy, chronic September 27, 2024 2:23pm Chief Complaint Admit Date check up September 27, 2024 2:23 pm Amb Documentation October 02, 2024 11:1 6am Unknown November 03, 2024 5:19 am Amb Documentation November 04, 2024 8:45 am Unknown November 13, 2024 9:5 1am Amb Documentation November 13, 2024 1:4 3pm Chief Complaint Admit Date check up September 27, 2024 2:23 pm Amb Documentation October 02, 2024 11:1 6am Unknown November 03, 2024 5:19 am Amb Documentation November 04, 2024 8:45 am Unknown November 13, 2024 9:5 1am Amb Documentation November 13, 2024 1:4 3pm hospital follow up November 15, 2024 2:2 7pm Reason for Visit Admit Date Gastroenteritis September 27, 2024 2:23 pm Lumbar radiculopathy, chronic September 27, 2024 2:23pm Bladder mass November 15, 2024 2:2 7pm Chief Complaint Admit Date check up September 27, 2024 2:23 pm Amb Documentation October 02, 2024 11:1 6am Unknown November 03, 2024 5:19 am Amb Documentation November 04, 2024 8:45 am Unknown November 13, 2024 9:5 1am Amb Documentation November 13, 2024 1:4 3pm hospital follow up November 15, 2024 2:2 7pm Virtual, High Fever, Headache November 11:24am Reason for Visit Admit Date Gastroenteritis September 27, 2024 2:23 pm Lumbar radiculopathy, chronic September 27, 2024 2:23pm Bladder mass November 15, 2024 2:2 7pm Lumbar radiculopathy, chronic November 2:27pm Bladder cancer December 02, 2024 11 :24am Febrile illness December 02, 2024 11 :24am Left flank pain December 02, 2024 11 :24am Chief Complaint Admit Date check up September 27, 2024 2:23 pm Amb Documentation October 02, 2024 11:1 6am Unknown November 03, 2024 5:19 am Amb Documentation November 04, 2024 8:45 am Unknown November 13, 2024 9:5 1am Amb Documentation November 13, 2024 1:4 3pm hospital follow up November 15, 2024 2:2 7pm Virtual, High Fever, Headache November 11:24am R10.9, R50.9 December 02, 2024 1: 30pm difficulty swallowing, tongue raw December 06, 2024 11:34am Additional Source Comments Care Team (unrecognized sect [...] End: October 13, 2023 Brittanie Siu APRN 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-[employer] Attending Provider Act onesimo Start: October 13, [...] Provider Active S tart: January 24, 2024 Telemetry Rn Relationship Specialty Start Date End Date Cornelius Garrison MD [address] [place] [address] PCP - General Family Medicine 03/27/24 Ofelia Arceo MD [address] [address] Referring Physician Internal Medicine 03/27/24 Telemetry Rn Relationship Specialty Start Date End Date Cornelius Garrison MD [address] [place] [address] PCP - General Family Medicine 03/27/24 Ofelia Arceo MD [address] [address] Referring Physician Internal Medicine 03/27/24 Telemetry Rn Relationship Specialty Start Date End Date Cornelius Garrison MD [address] [place] [address] PCP - General Family Medicine 03/27/24 Ofelia Arceo MD [address] [address] Referring Physician Internal Medicine 03/27/24 Geoff Walker DO [address] [place] [address] Otolaryngology 06/05/24 Telemetry Rn Relationship Specialty Start Date End Date Cornelius Garrison MD [address] [facility] [place] [address] PCP - General Family Medicine 03/27/24 Ofelia Arceo MD [address] [place] [address] Referring Physician Internal Medicine 03/27/24 Geoff Walker DO [address] [facility] [address] [place] [address] Otolaryngology 06/05/24 Team Status: Inactive Member Role Status Dates Cornelius Garrison MD Primary Care Provider Active Start: September 27, 2024 End: September 27, 2024 Cornelius Garrison MD Attending Provider Active St art: September 27, 2024 End: September 27, 2024 Team Status: Active Member Role Status Dates Cornelius Garrison MD Primary Care Provider Active Start: October 02, 2024 Vera Hdez CMA Attending Provider Active Start: October 02, 2024 Team Status: Active Member Role Status Dates Cornelius Garrison MD Primary Care Provider Active Start: November 03, 2024 Carlin Oleary MD Attending Provider Active St art: November 03, 2024 Team Status: Inactive Member Role Status Dates Cornelius Garrison MD Attending Provider Active St art: November 03, 2024 End: November 03, 2024 Team Status: Active Member Role Status Dates Vera Hdez CMA Attending Provider Active Start: November 04, 2024 Team Status: Active Member Role Status Dates Delvin Campbell DO Attending Provider Active S tart: November 12, 2024 Team Status: Active Member Role Status Dates Gianni France DO Attending Provider Active Start: November 13, 2024 Team Status: Inactive Member Role Status Dates Brie Mckay MD Attending Provider Active Start: November 13, 2024 End: November 13, 2024 Team Status: Active Member Role Status Dates Vera Hdez CMA Attending Provider Active Start: November 13, 2024 Team Status: Inactive Member Role Status Dates Cornelius Garrison MD Primary Care Provider Active Start: November 15, 2024 End: November 15, 2024 Cornelius Garrison MD Attending Provider Active St art: November 15, 2024 End: November 15, 2024 Team Status: Inactive Member Role Status Dates Cornelius Garrison MD Primary Care Provider Active Start: December 02, 2024 End: December 02, 2024 Cornelius Garrison MD Attending Provider Active St art: December 02, 2024 End: December 02, 2024 Team Status: Inactive Member Role Status Dates Cornelius Garrison MD Attending Provider Active St art: December 02, 2024 End: December 02, 2024 Team Status: Inactive Member Role Status Dates Cornelius Garrison MD Primary Care Provider Active Start: December 06, 2024 End: December 06, 2024 Cornelius Garrison MD Attending Provider Active St art: December 06, 2024 End: December 06, 2024 INFORMATION SOURCE (unrecogn ized section and content) DATE CREATED AUTHOR 04/01/2022 [facility] DATE CREATED AUTHOR AUTHOR'S ORGANIZ ATION 06/07/2024 [facility] DATE CREATED AUTHOR AUTHOR'S ORGANIZ ATION 08/01/[address] [facility] DATE CREATED AUTHOR AUTHOR'S ORGANIZ ATION 10/02/2024 [facility] DATE CREATED AUTHOR AUTHOR'S ORGANIZ ATION 11/28/2024 [facility] DATE CREATED AUTHOR AUTHOR'S ORGANIZ ATION 12/04/2024 [facility] Goals (unrecognized section [...] BE BASED ON THE PRIMARY CLINICAL RECORDS. [email or web address]. provides no warranty or guarantee of the accuracy or completeness of information in this document.
--- NOTE | 2024-12-11 19:55 | PC.NURSE ---
lab rn in room to obtain blood cultures x 2
[2024-12-11 20:04] LABS: Lactate/Lactic Acid 1.2 mmol/L (0.4-2.0)
[2024-12-11 20:32] VITALS: BP 122/73; PULSE 66; TEMP 36.7; O2SAT 95
[2024-12-11] MEDS: ERTAPENEM SODIUM 1 GM in 0.9 % SODIUM CHLORIDE 50 ML IV (20:33)
--- OUTSIDE RECORDS SUMMARY | 2024-12-11 21:04 | XMS_ITS | CCD ---
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 Name Role Phone CORNELIUS GARRISON Primary Care Physician [phone] [address], DR [place] Primary Care Unavailable REQUEST, [...] Care Provider DO Alexandro Galvez Attending Provider [phone] Cornelius Garrison MD Primary Care Provider Ofelia Arceo MD Unavailable Cornelius Garrison MD Primary Care Provider Alexandro Galvez DO Attending Provider [phone] Cornelius Garrison MD Attending Provider [phone] Cornelius Garrison MD Primary Care Provider Geoff Walker DO Unavailable GEOFF WALKER Attending Unavailable CORNELIUS GARRISON Referring Unavailable KANE PARKER Attending Unavailable OFELIA ARCEO Referring Unavailable Cornelius Garrison MD Attending Provider [phone] Denilson TAVERAS, Duong Wagoner Attending Unavailable Cornelius Garrison MD [facility] Care Gelava stephany Oreilly MD, Duong Wagoner Attending Unavailable Cornelius Garrison MD [facility] Gelava stephany Oreilly MD, Duong Wagoner Attending Unavailable Bladimir TAVERAS, [facility] Unava ilkrystal Garrison MD, [facility] Unava ilable Denilson TAVERAS, Duong Wagoner Attending Unavailable Bladimir TAVERAS, [facility] Unava ilable Denilson TAVERAS, Duong Wagoner Attending Unavailable Bladimir TAVERAS, [facility] Unava stephany Garrison MD, [facility] il[facility] Adis PA-C, Ofelia Grace Attending Unavailab jass Garrison MD, [facility] Unava ilable Adis PA-C, Ofelia Grace Attending Unavailab jass Garrison MD, [facility] Unava ilable Adis PA-C, Ofelia Grace Attending Unavailab jass Garrison MD, [facility] Unava ilable Alexey Morgan MD Admitting Unavailable [place] PA-C, Sravani Benson Attending U elizabeth Garrison MD, [facility] Unava ilable Adis PA-C, Ofelia Grace Admitting Unavailab le Adis PA-C, Ofelia Grace Attending Unavailab jass Garrison MD, [facility] Unava ilable Adis PA-C, Ofelia Grace Attending Unavailab jass Oreilly MD, Duong Wagoner Attending Unavailable Bladimir TAVERAS, [facility] Unava ilable CORNELIUS GARRISON Primary Care Unavailable TYRONE HAMM Attending Unavailable Bladimir TAVERAS, Cornelius Ward Primary Care Provider Cornelius Garrison MD Attending Provider Vera Hdez CMA Attending Provider Unavailtomas Oleary MD, Carlin Waldrop Attending Provider [phone] Delvin Campbell DO Attending Provider Gianni France [...] codone] Drug Allergy Nausea (finding) [facility] [place] (9 sources) Alendronate; Translations: [alendronate] Drug Allergy 03-29-20 Muscle pain (finding) [facility] [place] (20 sources) Clarithromycin; Translations: [clarithromycin] Drug Allergy 07-31-19 24 Unknown (qualifier value) [facility] [place] (20 sources) levoFLOXacin; Translations: [levofloxacin] Drug Allergy 07-31-19 24 Eruption of skin (disorder) [facility] [place] (7 sources) Sulfonamides (Antibiotic); Translations: [sulfa drugs] Drug allergy Unknown (qualifier value) [facility] [place] (1 source) Acetaminophen / oxyCODONE Drug Allergy 03-25-20 16 [facility] (1 source) Alendronate Drug Allergy 03-18-20 16 [facility] (1 source) Clarithromycin Drug Allergy 03-25-20 16 [facility] (1 source) levoFLOXacin Drug Allergy 03-25-20 16 [facility] (1 source) Quinolones (Antibiotic) Drug allergy (disorder) 03-25-20 16 [facility] (1 source) Sulfonamides (Antibiotic) Drug allergy (disorder) 05-01-19 14 [facility] (1 source) Acetaminophen Drug Allergy 07-31-19 24 [facility] (17 sources) Alendronate Drug Allergy 07-31-19 24 [facility] (17 sources) oxyCODONE Drug Allergy 07-31-19 24 [facility] (18 sources) Sulfonamides (Antibiotic); Translations: [SULFA (SULFONAMIDE ANTIBIOTICS)] Allergy to substance 07-31-19 Comment:as a young child, pt. cannot recall reaction [facility] (17 sources) Biaxin XL *MACROLIDES* Allergy to substance 07-28-19 [facility] (4 sources) Acetaminophen / oxyCODONE; Translations: [OXYCODONE-ACETAMI NOPHEN] Drug Allergy 06-05-19 Nausea Only [facility] (3 sources) Clarithromycin Allergy to substance 03-29-20 [facility] (3 sources) Lactobacillus acidophilus Drug Allergy 06-05-19 [facility] (3 sources) Quinolones (Antibiotic) Drug Intolerance 03-11-20 10 Rash [facility] (3 sources) Sulfonamides (Antibiotic) Drug Intolerance 03-11-20 10 [facility] (1 source) Ciprofloxacin; Translations: [Cipro] Drug Allergy [facility] (1 source) symbalta; Translations: [symbalta] Propensity to adverse reactions to drug (disorder) [facility] (6 sources) fluoroquinolone antibiotics Allergy to substance 10-03-19 [facility] Medications Current Medications Medication Drug [...] 1 tablet by mouth at bedtime HYDROcodone-acetaminophen (Maddock) 5-325 MG tablet Take 1 tablet by [...] Rinse after use Start: 03-29-2024 End: 04-15-2024 Ukzexrwrzxy-Vkdxcrlzr-Kyjrbf er (Trelegy Ellipta) 200-62.5-25 mcg blister with device Discontinued 1 INH INHALATION Daily 60 March 29, 2024 10:38am April 15, 2024 4:41pm Rinse after use Start: 03-29-2024 End: 04-15-2024 Ovoqtymsrwr-Yqjmgnxhb-Pluina er (Trelegy Ellipta) 200-62.5-25 mcg blister with device Discontinued 1 INH INHALATION Daily 60 March 29, 2024 9:38am April 15, 2024 3:41pm Rinse after use Start: 03-11-2024 End: 03-29-2024 Fcikjndsuhc-Qklqgsvoj-Rbrqvn er (Trelegy Ellipta) 200-62.5-25 mcg blister with device Discontinued 1 INH INHALATION Daily 180 March 11, 2024 1:00am March 29, 2024 10:38am Rinse after use Start: 03-11-2024 End: 03-29-2024 Tbhyqfnogvg-Cdrowfbsl-Ratdwz er (Trelegy Ellipta) 200-62.5-25 mcg blister with device Discontinued 1 INH INHALATION Daily 180 March 11, 2024 12:00am March 29, 2024 9:38am Rinse after use nystatin 030395 unt/ml oral suspension (1 source) Polyene Antifungal [...] March 29, 2024 9:04am 60 actuat tiotropium 0.35340 mg/actuat inhalation spray (20 sources) Anticholinergic Start: 02-08-2024 End: 03-11-2024 take 1 puff(s) by inhalation once daily in the morning Tiotropium [place] (Spiriva Respimat) 1.25 mcg/actuation mist Discontinued 2 [...] 01-24-2024 Chronic Other aftercare (1 source) Other nuclear medicine officer (current) drug therapy; Translations: [OTH LONG-TERM CURRENT DRUG THERAPY] Onset: 2 Episodic Other aftercare (12 sources) Long-term current use of inhaled steroid; Translations: [channel man (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 of 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] Onset: 5 Resolved: 5 04-15-2024 Episodic Other aftercare (3 sources) channel man (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 of 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; Translations: [Long-term [...] Cx Nom (U) ORGANISM: Pseudomonas aeruginosa (O:PSEAER) Miller Count >100,000 Aerobic EVE Charge (NMIC56) SUSCEPTIBILITY [...] RESISTANT TO ALL B-LACTAM DRUGS. PERFORMED BY: [facility] [address] [place] [address] PATHOLOGIST DATABASE OPERATOR KATHLEEN Woodard [facility] Comment on above: Performed By: #### C UU #### [address] Urine cultureOrdered By: Mala Garrison on 12-02-2024 Bacteria identified Cx Nom (U) Pseudomonas aeruginosa Abnormal [facility] Ambulatory Visit Summaryon 0 11-26-2024 Ambulatory [...] use t (more content not included)... Normal [facility] Urology Office/Clinic Noteon 11-26-2024 Urology Office/Clinic Note [...] with voice recognition artificial intelligence software, specifically [employer] and or [employer]. Substitutions may have occurred due to the [...] leiomyoma [diagnosis of exclusion]. Pt presented to [facility] ER 11/13/24 with gross hematuria of 11-day duration. Severe clot passage. Three-way Lau placed with CBI initiated. CT AP wo con 11/12/24 [facility] - There are areas of nodular [...] GERD (gastroesophagea (more content not included)... Normal [facility] Comment on above: Result Comment: Elec [...] MCKAY MD Where: [facility] [address], [address] [place] [id number]- Medications What How Much When Instructions Unchanged [...] signed up for this yet, please contact [employer] at [phone] to get signed up today. Language Information Language assistance services are available as needed. Normal [facility] Activated partial thrombopla stin time (aPTT) in platelet poor plasma by coagulation aOrdered By: Gianni France on 11-13-2024 aPTT Coag (PPP) [Time] 25.6 s 22.3-36.2 [facility] Basophils Auto (Bld) [#/Vol] Ordered By: Gianni France on 11-13-2024 Basophils (Bld) [#/Vol] 0.1 10 3/uL 0.0-0.1 [facility] Basophils/100 WBC Auto (Bld) Ordered By: Gianni France on 11-13-2024 Basophils/100 WBC (Bld) 0.6 % 0.2-2.0 [facility] Eosinophils/100 WBC Auto (Bl d)Ordered By: Gianni France on 11-13-2024 Eosinophils/100 WBC (Bld) 2.1 % 0.9-7.0 [facility] Erythrocyte distribution wid th Auto (RBC) [Ratio]Ordered By: Gianni France on 11-13-2024 Erythrocyte distribution width (RBC) [Ratio] 13.8 % 11.0-15.0 [facility] Estimated glomerular filtrat ion rate (GFR) non- AmericanOrdered By: Gianni France on 11-13-2024 GFR/1.73 sq M.predicted among non-blacks MDRD (S/P/Bld) [Vol rate/Area] mL/min/{1.73_m2} >=60 mL/min/1.73m 2 [facility] Hematocrit Auto (Bld) [Volum e fraction]Ordered By: Gianni rFance on 11-13-2024 Hematocrit (Bld) [Volume fraction] 33.7 % Low 36.0-48.0 [facility] Hemoglobin [Mass/volume] in BloodOrdered By: Gianni France on 11-13-2024 Hemoglobin (Bld) [Mass/Vol] 11.0 g/dL Low 12.0-16.0 [facility] INR in Platelet poor plasma by Coagulation assayOrdered By: Gianni France on 11-13-2024 INR Coag (PPP) [Relative time] 0.98 {INR} [facility] Comment on above: DESIRED INR:2.0-3.0 CONDITIONS NOT LISTED BELOW2.5-3.5 FOR PROSTHETIC HEART VALVE REPLACEMENT2.5-3.5 RECURRENT THROMBOSIS Dominick 11-13-2024 L ------ Specimen: [id number] Received: 11/13/24 Status: OMAR Aceves Num: [id number] Spec Type: Surgical Subm Dr: Brie Mckay MD Tissues: A Urinary Bladder - TUR (BLADDER TUMOR) Procedures: HE/6, Gross/Micro L5 Age/ Patient Sex Location Account Attending Physician Cristine Manley 64/F LABELL [id number] Brie Mckay MD SPEC NUM: [id number] RECD: 11/13/24 STATUS: OMAR ACEVES NUM: [id number] TORI: 11/13/[address] [facility] DR: Brie Mckay MD ENTERED: 11/13/[address] [facility] DR: Tracy Matta SPEC TYPE: Surgical DEPT: KEN BULL ENTERED BY: [id number] RECV BY: [id number] ORDERED: HE/6, Gross/Micro L5 ORDERED: HE/6, Gross/Micro [...] and entirely submitted in A1?A6. (6, ns, [id number] A)JG Microscopic Description Microscopic examination is performed. Specimen: [id number] Received: 11/13/24 Status: OMAR Aceves Num: [id number] Spec Type: Surgical Subm Dr: Brie Mckay MD Tissues: A Urinary Bladder - TUR (BLADDER TUMOR) Procedures: , Gross/Micro L5 Patient: Cristine Manley [id number] (Continued) Specimen: [id number] Received: 11/13/24 (Continued) Signed (signature on file) Gianni Hutchinson MD 11/14/24 1307 Specimen: [id number] Received: 11/13/24 Status: OMAR Aceves Num: [id number] Spec Type: Surgical Subm Dr: Brie Mckay MD Tissues: A Urinary Bladder - TUR (BLADDER TUMOR) Procedures: /, Gross/Micro L5 Patient: Cristine Manley [id number] (Continued) Specimen: [id number] Received: 11/13/24 (Continued) CPT Codes 90162 Specimen: [id number] Received: 11/13/24-1325 Status: OMAR Aceves Num: [id number] Spec Type: Surgical Subm Dr: Brie Mckay MD Tissues: A Urinary Bladder - TUR (BLADDER TUMOR) Procedures: HE/, Gross/Micro L5 Patient: Cristine Manley [id number] (Continued) Signed (signature on file) Gianni Hutchinson MD 11/14/24 1301 Normal [facility] Laboratory - Chemistry and C hemistry - challengeOrdered By: Gianni France on 11-13-2024 Calcium [Mass/Vol] 8.9 mg/dL 8.5-10.1 [facility] Chloride [Moles/Vol] 108 mmol/L High 98-107 [facility] CO2 [Moles/Vol] 28.2 mmol/L 21.0-32.0 [facility] Creatinine [Mass/Vol] 0.65 mg/dL 0.55-1.02 [facility] GFR/1.73 sq M.predicted MDRD (S/P/Bld) [Vol rate/Area] mL/min/{1.73_m2} >=60 mL/min/1.73m 2 [facility] Glucose [Mass/Vol] 98 mg/dL 74-106 [facility] Magnesium [Mass/Vol] 2.0 mg/dL 1.8-2.4 [facility] Potassium [Moles/Vol] 4.1 mmol/L 3.5-5.1 [facility] Sodium [Moles/Vol] 143 mmol/L 136-145 [facility] Urea nitrogen [Mass/Vol] 21.0 mg/dL High 7.0-18.0 [facility] Urea nitrogen/Creatinine [Mass ratio] 32.3 mg/mg [facility] Laboratory - Hematology and Cell countsOrdered By: Gianni France on 11-13-2024 Immature granulocytes/100 WBC (Bld) 0.3 % 0.0-0.5 [facility] Leukocytes [#/volume] correc shant for nucleated erythrocytes in Blood by Automated counOrdered By: Gianni France on 11-13-2024 WBC corrected for nucl RBC Auto (Bld) [#/Vol] 9.8 10 3/uL 4.0-11.0 [facility] Lymphocytes Auto (Bld) [#/Vo l]Ordered By: Gianni France on 11-13-2024 Lymphocytes (Bld) [#/Vol] 2.9 10 3/uL 1.2-3.8 [facility] Lymphocytes/100 WBC Auto (Bl d)Ordered By: Gianni France on 11-13-2024 Lymphocytes/100 WBC (Bld) 29.7 % 20.5-60.0 [facility] MCH Auto (RBC) [Entitic mass ]Ordered By: Gianni France on 11-13-2024 MCH (RBC) [Entitic mass] 29.5 pg 26.7-34.0 [facility] MCHC Auto (RBC) [Mass/Vol]Or dered By: Gianni France on 11-13-2024 MCHC (RBC) [Mass/Vol] 32.6 g/dL 29.9-35.2 [facility] MCV Auto (RBC) [Entitic vol] Ordered By: Gianni France on 11-13-2024 MCV (RBC) [Entitic vol] 90.3 fL 81.0-99.0 [facility] Monocytes Auto (Bld) [#/Vol] Ordered By: Gianni France on 11-13-2024 Monocytes (Bld) [#/Vol] 0.6 10 3/uL 0.3-0.8 [facility] Monocytes/100 WBC Auto (Bld) Ordered By: Gianni France on 11-13-2024 Monocytes/100 WBC (Bld) 6.4 % 1.7-12.0 [facility] Neutrophils Auto (Bld) [#/Vo l]Ordered By: Gianni France on 11-13-2024 Neutrophils (Bld) [#/Vol] 6.0 10 3/uL 1.4-6.5 [facility] Neutrophils/100 WBC Auto (Bl d)Ordered By: Gianni France on 11-13-2024 Neutrophils/100 WBC (Bld) 60.9 % 43.0-75.0 [facility] No Panel InformationOrdered By: Gianni France on 11-13-2024 Eosinophils # (Auto) 0.2 10 3/uL 0.0-0.7 [facility] Immature Granulocyte # (Auto) 0.03 10 3/uL 0.00-0.03 [facility] Platelet mean volume Auto (B ld) [Entitic vol]Ordered By: Gianni France on 11-13-2024 Platelet mean volume (Bld) [Entitic vol] 9.8 fL 9.5-13.5 [facility] Platelets Auto (Bld) [#/Vol] Ordered By: Gianni France on 11-13-2024 Platelets (Bld) [#/Vol] 295 10 3/uL 150-450 [facility] Prothrombin time (PT)Ordered By: Gianni France on 11-13-2024 PT Coag (PPP) [Time] 10.4 s 9.0-11.6 [facility] RBC Auto (Bld) [#/Vol]Ordere d By: Gianni France on 11-13-2024 RBC (Bld) [#/Vol] 3.73 10 6/uL Low 4.20-5.40 [facility] Serum or plasma anion gap de terminationOrdered By: Gianni France on 11-13-2024 Anion gap [Moles/Vol] 10.9 mmol/L [facility] Basophils Auto (Bld) [#/Vol] Ordered By: Delvin Campbell on 11-12-2024 Basophils (Bld) [#/Vol] 0.1 10 3/uL 0.0-0.1 [facility] Basophils/100 WBC Auto (Bld) Ordered By: Delvin Campbell on 11-12-2024 Basophils/100 WBC (Bld) 0.8 % 0.2-2.0 [facility] Eosinophils/100 WBC Auto (Bl d)Ordered By: Delvin Campbell on 11-12-2024 Eosinophils/100 WBC (Bld) 3.3 % 0.9-7.0 [facility] Erythrocyte distribution wid th Auto (RBC) [Ratio]Ordered By: Delvin Campbell on 11-12-2024 Erythrocyte distribution width (RBC) [Ratio] 13.7 % 11.0-15.0 [facility] Estimated glomerular filtrat ion rate (GFR) non- AmericanOrdered By: Delvin Campbell on 11-12-2024 GFR/1.73 sq M.predicted among non-blacks MDRD (S/P/Bld) [Vol rate/Area] mL/min/{1.73_m2} >=60 mL/min/1.73m 2 [facility] Hematocrit Auto (Bld) [Volum e fraction]Ordered By: Delvin Campbell on 11-12-2024 Hematocrit (Bld) [Volume fraction] 35.5 % Low 36.0-48.0 [facility] Hemoglobin [Mass/volume] in BloodOrdered By: Delvin Campbell on 11-12-2024 Hemoglobin (Bld) [Mass/Vol] 11.4 g/dL Low 12.0-16.0 [facility] Laboratory - Chemistry and C hemistry - challengeOrdered By: Delvin Campbell on 11-12-2024 Calcium [Mass/Vol] 9.9 mg/dL 8.5-10.1 [facility] Chloride [Moles/Vol] 105 mmol/L 98-107 [facility] CO2 [Moles/Vol] 29.6 mmol/L 21.0-32.0 [facility] Creatinine [Mass/Vol] 0.82 mg/dL 0.55-1.02 [facility] GFR/1.73 sq M.predicted MDRD (S/P/Bld) [Vol rate/Area] mL/min/{1.73_m2} >=60 mL/min/1.73m 2 [facility] Glucose [Mass/Vol] 107 mg/dL High 74-106 [facility] Potassium [Moles/Vol] 3.5 mmol/L 3.5-5.1 [facility] Sodium [Moles/Vol] 141 mmol/L 136-145 [facility] Urea nitrogen [Mass/Vol] 20.0 mg/dL High 7.0-18.0 [facility] Urea nitrogen/Creatinine [Mass ratio] 24.4 mg/mg [facility] Bilirubin Ql (U) Negative NEGATIVE [facility] Glucose (U) [Mass/Vol] Negative NEGATIVE [facility] Ketones Ql (U) TRACE mg/dL Abnormal NEGATIVE [facility] pH (U) 7.0 [pH] 5.0-9.0 [facility] Specific gravity (U) [Rel density] 1.020 1.005-1.025 [facility] Urobilinogen Qn (U) 1.0 {Zoraida'U}/dL 0.2-1.0 [facility] Laboratory - Hematology and Cell countsOrdered By: Delvin Campbell on 11-12-2024 Immature granulocytes/100 WBC (Bld) 0.3 % 0.0-0.5 [facility] Laboratory - Specimen inform ationOrdered By: Delvin Campbell on 11-12-2024 Appearance (U) CLEAR CLEAR [facility] Color (U) DK. RED YELLOW [facility] Laboratory - UrinalysisOrder ed By: Delvin Campbell on 11-12-2024 Leukocyte esterase Test strip Ql (U) TRACE Abnormal NEGATIVE [facility] Mucus Ql (Urine sed) NONE SEEN NONE SEEN [facility] Nitrite Ql (U) Positive Abnormal NEGATIVE [facility] Protein Ql (U) >=300 mg/dL Abnormal NEG/TRACE [facility] Leukocytes [#/volume] correc shant for nucleated erythrocytes in Blood by Automated counOrdered By: Delvin Campbell on 11-12-2024 WBC corrected for nucl RBC Auto (Bld) [#/Vol] 7.7 10 3/uL 4.0-11.0 [facility] Lymphocytes Auto (Bld) [#/Vo l]Ordered By: Delvin Campbell on 11-12-2024 Lymphocytes (Bld) [#/Vol] 2.5 10 3/uL 1.2-3.8 [facility] Lymphocytes/100 WBC Auto (Bl d)Ordered By: Delvin Campbell on 11-12-2024 Lymphocytes/100 WBC (Bld) 32.9 % 20.5-60.0 [facility] MCH Auto (RBC) [Entitic mass ]Ordered By: Delvin Campbell on 11-12-2024 MCH (RBC) [Entitic mass] 29.2 pg 26.7-34.0 [facility] MCHC Auto (RBC) [Mass/Vol]Or dered By: Delvin Campbell on 11-12-2024 MCHC (RBC) [Mass/Vol] 32.1 g/dL 29.9-35.2 [facility] MCV Auto (RBC) [Entitic vol] Ordered By: Delvin Campbell on 11-12-2024 MCV (RBC) [Entitic vol] 91.0 fL 81.0-99.0 [facility] Monocytes Auto (Bld) [#/Vol] Ordered By: Delvin Campbell on 11-12-2024 Monocytes (Bld) [#/Vol] 0.6 10 3/uL 0.3-0.8 [facility] Monocytes/100 WBC Auto (Bld) Ordered By: Delvin Campbell on 11-12-2024 Monocytes/100 WBC (Bld) 8.1 % 1.7-12.0 [facility] Neutrophils Auto (Bld) [#/Vo l]Ordered By: Delvin Campbell on 11-12-2024 Neutrophils (Bld) [#/Vol] 4.2 10 3/uL 1.4-6.5 [facility] Neutrophils/100 WBC Auto (Bl d)Ordered By: Delvin Campbell on 11-12-2024 Neutrophils/100 WBC (Bld) 54.6 % 43.0-75.0 [facility] No Panel InformationOrdered By: Delvin Campbell on 11-12-2024 Eosinophils # (Auto) 0.3 10 3/uL 0.0-0.7 [facility] Immature Granulocyte # (Auto) 0.02 10 3/uL 0.00-0.03 [facility] Urine Bacteria NONE SEEN #/HPF NONE SEEN [facility] Urine Culture Reflexed NO [facility] Urine Occult Blood LARGE Abnormal NEGATIVE [facility] Urine Other Casts NONE SEEN #/LPF NONE SEEN [facility] Urine Other Crystals None Seen #/HPF None Seen [facility] Urine RBC 50-75 #/HPF Abnormal 0-2 [facility] Urine Squamous Epithelial Cells NONE SEEN #/LPF NONE/RARE [facility] Urine WBC 0-2 #/HPF Abnormal NONE SEEN [facility] Platelet mean volume Auto (B ld) [Entitic vol]Ordered By: Delvin Campbell on 11-12-2024 Platelet mean volume (Bld) [Entitic vol] 9.5 fL 9.5-13.5 [facility] Platelets Auto (Bld) [#/Vol] Ordered By: Delvin Campbell on 11-12-2024 Platelets (Bld) [#/Vol] 301 10 3/uL 150-450 [facility] RBC Auto (Bld) [#/Vol]Ordere d By: Delvin Campbell on 11-12-2024 RBC (Bld) [#/Vol] 3.90 10 6/uL Low 4.20-5.40 [facility] Serum or plasma anion gap de terminationOrdered By: Delvin Campbell on 11-12-2024 Anion gap [Moles/Vol] 9.9 mmol/L [facility] Laboratory - Chemistry and C hemistry - challengeOrdered By: Carlin Oleary on 11-03-2024 Bilirubin Ql (U) COLOR INTERFERENCE Abnormal NEGATIVE [facility] Ketones Ql (U) COLOR INTERFERENCE mg/dL Abnormal NEGATIV E [facility] Specific gravity (U) [Rel density] 1.015 1.005-1.025 [facility] Laboratory - Specimen inform ationOrdered By: Carlin Oleary on 11-03-2024 Appearance (U) CLOUDY Abnormal CLEAR [facility] Color (U) DK. RED YELLOW [facility] Laboratory - UrinalysisOrder ed By: Carlin Oleary on 11-03-2024 Leukocyte esterase Test strip Ql (U) COLOR INTERFERENCE Abnormal NEGATIVE [facility] Mucus Ql (Urine sed) NONE SEEN NONE SEEN [facility] Nitrite Ql (U) COLOR INTERFERENCE Abnormal NEGATIVE [facility] Protein Ql (U) COLOR INTERFERENCE mg/dL Abnormal NEG/TRA CE [facility] No Panel InformationOrdered By: Carlin Oleary on 11-03-2024 Urine Bacteria TRACE #/HPF Abnormal NONE SEEN [facility] Urine Culture Reflexed YES-[facility] Urine Glucose (UA) COLOR INTERFERENCE mg/dL Abnormal NEG ATIVE [facility] Urine Occult Blood COLOR INTERFERENCE Abnormal NEGATIVE [facility] Urine Other Casts NONE SEEN #/LPF NONE SEEN [facility] Urine Other Crystals None Seen #/HPF None Seen [facility] Urine pH COLOR INTERFERENCE Abnormal 5.0-9.0 [facility] Urine RBC >100 #/HPF Abnormal 0-2 [facility] Urine Squamous Epithelial Cells NONE SEEN #/LPF NONE/RARE [facility] Urine Urobilinogen COLOR INTERFERENCE EU/dL Abnormal 0.2 -1.0 [facility] Urine WBC 20-50 #/HPF Abnormal NONE SEEN [facility] Urine Cultureon 11-03-2024 Bacteria identified Cx Nom (U) >100,000 colonies/ml mixed bacterial skin contaminants 2 Days PERFORMED BY: [address] [address] PATHOLOGIST DATABASE OPERATOR KATHLEEN AGUAYO M.D. Normal [facility] Comment on above: Performed By: #### C UU #### [facility] [address] [place], [place] [id number] [facility] Urine cultureOrdered By: Mala Garrison on 11-03-2024 Bacteria identified Cx Nom (U) 2 Days [facility] C DIFFICILE BY PCRon 025 027 NAP1 Negative Normal Presumptive Negative [facility] Comment on above: Result Comment: Batool cerrato methodology is nucleic acid amplification by real-time PCR for detection of C. difficile toxin gene sequences performed on [employer] System. Performed By: #### C DFPCR #### [facility] ([facility]) [address] [place] [address] VIR TOXIGENIC C DIFF Negative Normal Negative [facility] Comment on above: Performed By: #### C DFPCR #### [facility] ([facility]) [address] [place] [address] VIR CBC WITH AUTO DIFFERENTIALon 10-01-2024 BASOPHILS ABSOLUTE COUNT (10*3/UL) BY AUTOMATED COUNT 0.1 10*3/uL Normal 0.0-0.2 [facility] Comment on above: Performed By: #### C BCA #### [facility] ([address] [address] VIR BASOPHILS RELATIVE PERCENT BY AUTOMATED COUNT 0.7 % Normal [facility] Comment on above: Performed By: #### C BCA #### [facility] ([facility]) [address] [place] [address] VIR CELLAVISION DIFFERENTIAL TYPE AUTOMATED DIFFERENTIAL Normal [facility] Comment on above: Performed By: #### C BCA #### [facility] ([address] [address] VIR Eosinophils (Bld) [#/Vol] 0.1 10*3/uL Normal 0.0-0.4 [facility] Comment on above: Performed By: #### C BCA #### [facility] ([address] [address] VIR EOSINOPHILS RELATIVE PERCENT BY AUTOMATED COUNT 1.2 % Normal [facility] Comment on above: Performed By: #### C BCA #### [facility] ([address] [place] [address] VIR Erythrocyte distribution width (RBC) [Ratio] 13.2 % Normal 11.5-15 [facility] Comment on above: Performed By: #### C BCA #### [facility] ([address] [address] VIR Hematocrit (Bld) [Volume fraction] 41.7 % Normal 35-47 [facility] Comment on above: Performed By: #### C BCA #### [facility] ([address] [address] VIR Hemoglobin (Bld) [Mass/Vol] 14.1 g/dL Normal 11.7-15.5 [facility] Comment on above: Performed By: #### C BCA #### [facility] ([address] [address] VIR LYMPHOCYTES ABSOLUTE COUNT (10*3/UL) BY AUTOMATED COUNT 1.7 10*3/uL Normal 1.0-3.5 [facility] Comment on above: Performed By: #### C BCA #### [facility] ([address] [address] VIR LYMPHOCYTES RELATIVE PERCENT BY AUTOMATED COUNT 18.1 % Normal [facility] Comment on above: Performed By: #### C BCA #### [facility] ([address] [address] VIR MCH (RBC) [Entitic mass] 29.8 pg Normal 27-34 [facility] Comment on above: Performed By: #### C BCA #### [facility] ([address] [address] VIR MCHC (RBC) [Mass/Vol] 33.9 g/dL Normal 32-36 [facility] Comment on above: Performed By: #### C BCA #### [facility] ([address] [address] VIR MCV (RBC) [Entitic vol] 88 fL Normal 80-100 [facility] Comment on above: Performed By: #### C BCA #### [facility] ([address] [address] VIR MONOCYTES ABSOLUTE COUNT (10*3/UL) BY AUTOMATED COUNT 1.3 10*3/uL High 0.0-0.9 [facility] Comment on above: Performed By: #### C BCA #### [facility] ([address] [address] VIR MONOCYTES RELATIVE PERCENT BY AUTOMATED COUNT 14.3 % Normal [facility] Comment on above: Performed By: #### C BCA #### [facility] ([address] [address] VIR NEUTROPHILS ABSOLUTE COUNT BY AUTOMATED COUNT 6.1 10*3/uL Normal 1.5-6.6 [facility] Comment on above: Performed By: #### C BCA #### [facility] ([address] [address] VIR NEUTROPHILS RELATIVE PERCENT BY AUTOMATED COUNT 65.7 % Normal [facility] Comment on above: Performed By: #### C BCA #### [facility] ([address] [address] VIR Platelet mean volume (Bld) [Entitic vol] 7.7 fL Normal 7-12 [facility] Comment on above: Performed By: #### C BCA #### [facility] ([address] [address] VIR Platelets (Bld) [#/Vol] 376 10*3/uL Normal 150-450 [facility] Comment on above: Performed By: #### C BCA #### [facility] ([facility]) [address] [place] [address] VIR RBC COUNT 4.74 X10E12/L Normal 3.8-5.2 [facility] Comment on above: Performed By: #### C BCA #### [facility] ([address] [place] [address] VIR WBC (Bld) [#/Vol] 9.3 10*3/uL Normal 4-11 [facility] Comment on above: Performed By: #### C BCA #### [facility] ([facility]) [address] [place] [address] [place] [address] VIR COMPREHENSIVE METABOLIC PANE Dominick 10-01-2024 Albumin [Mass/Vol] 3.5 g/dL Normal 3.2-5.3 [facility] Comment on above: Performed By: #### C MP #### [facility] ([address] [place] [address] VIR ALP [Catalytic activity/Vol] 69 U/L Normal 39-130 [facility] Comment on above: Performed By: #### C MP #### [facility] ([address] [place] [address] VIR ALT [Catalytic activity/Vol] 20 U/L Normal <=31 [facility] Comment on above: Performed By: #### C MP #### [facility] ([address] [place] [address] VIR Anion gap [Moles/Vol] 10 mmol/L Normal 5-15 [facility] Comment on above: Performed By: #### C MP #### [facility] ([facility]) [address] [place], [place] [address] [address] VIR AST [Catalytic activity/Vol] 14 U/L Normal <=41 [facility] Comment on above: Performed By: #### C MP #### [facility] ([address] [place] [address] VIR Bilirubin [Mass/Vol] 0.4 mg/dL Normal 0.3-1.[address] [facility] Comment on above: Performed By: #### C MP #### [facility] ([address] [place] [address] VIR Calcium [Mass/Vol] 8.9 mg/dL Normal 8.5-10.5 [facility] Comment on above: Performed By: #### C MP #### [facility] ([address] [place] [address] VIR Chloride [Moles/Vol] 102 mmol/L Normal 98-[address] [facility] Comment on above: Performed By: #### C MP #### [facility] ([address] [place] [address] VIR CO2 [Moles/Vol] 25 mmol/L Normal 22-32 [facility] Comment on above: Performed By: #### C MP #### [facility] ([address] [place] [address] VIR Creatinine [Mass/Vol] 0.89 mg/dL Normal 0.40-1.00 [facility] Comment on above: Result Comment: METH OD TRACEABLE TO IDMS STANDARD Performed By: #### C MP #### [facility] ([address] [place] [address] VIR GFR/1.73 sq M.predicted among non-blacks MDRD (S/P/Bld) [Vol rate/Area] 72 mL/min/{1.73_m2} Normal >=60 [facility] Comment on above: Result Comment: eGFR not reported due to non-numeric value for Creatinine. Reported eGFR is based on the CKD-EPI 2020 equation that does not use a race coefficient. Performed By: #### C MP #### [facility] ([address] [place] [address] VIR Glucose [Mass/Vol] 111 mg/dL High 65-99 [facility] Comment on above: Performed By: #### C MP #### [facility] ([facility]) [address] [place] [address] [place] [address] VIR Potassium [Moles/Vol] 3.4 mmol/L Low 3.5-5.0 [facility] Comment on above: Performed By: #### C MP #### [facility] ([facility]) [address] [place] [address] [place] [address] VIR Protein [Mass/Vol] 6.6 g/dL Normal 6.0-8.0 [facility] Comment on above: Performed By: #### C MP #### [facility] ([address] [place] [address] VIR Sodium [Moles/Vol] 137 mmol/L Normal 134-146 [facility] Comment on above: Performed By: #### C MP #### [facility] ([address] [place] [address] VIR Urea nitrogen [Mass/Vol] 20 mg/dL Normal 5-27 [facility] Comment on above: Performed By: #### C MP #### [facility] ([address] [place] [address] ABDOMEN AND PELVIS W CONT [...] Cordova MD on 10/01/2024 8:37 AM Normal [facility] GI PANEL STOOL PATHOGEN PANE Dominick 10-01-2024 ADENOVIRUS Not detected Normal Not Detected [facility] Comment on above: Performed By: #### G IP #### [facility] ([facility]) [address] [place] [address] VIR AGGREGATIVE E COLI Not detected Normal Not Detected [facility] Comment on above: Performed By: #### G IP #### [facility] ([facility]) [address] [place] [address] VIR ASTROVIRUS Not detected Normal Not Detected [facility] Comment on above: Performed By: #### G IP #### [facility] ([facility]) [address] [place] [address] VIR CAMPYLOBACTER Detected Abnormal Not Detected [facility] Comment on above: Result Comment: Dete cts the following: C. jejuni, C. coli, C. upsaliensis. Performed By: #### G IP #### [facility] ([facility]) [address] [place] [address] VIR CRYPTOSPORIDIUM Not detected Normal Not Detected [facility] Comment on above: Performed By: #### G IP #### [facility] ([facility]) [address] [place] [address] VIR CYCLOSPORA Not detected Normal Not Detected [facility] Comment on above: Performed By: #### G IP #### [facility] ([facility]) [address] [place] [address] VIR E HISTOLYTICA Not detected Normal Not Detected [facility] Comment on above: Performed By: #### G IP #### [facility] ([facility]) [address] [place] [address] VIR GIARDIA LAMBLIA Not detected Normal Not Detected [facility] Comment on above: Performed By: #### G IP #### [facility] ([facility]) [address] [place] [address] VIR NOROVIRUS Not detected Normal Not Detected [facility] Comment on above: Performed By: #### G IP #### [facility] ([facility]) [address] [place] [address] VIR PATHOGENIC E COLI Detected Abnormal Not Detected [facility] Comment on above: Result Comment: Ente ropathogenic Escherichia coli Performed By: #### G IP #### [facility] ([facility]) [address] [place] [address] VIR PLESIOMONAS Not detected Normal Not Detected [facility] Comment on above: Performed By: #### G IP #### [facility] ([facility]) [address] [place] [address] VIR ROTAVIRUS A Not detected Normal Not Detected [facility] Comment on above: Performed By: #### G IP #### [facility] ([facility]) [address] [place] [address] VIR SALMONELLA Not detected Normal Not Detected [facility] Comment on above: Performed By: #### G IP #### [facility] ([facility]) [address] [place] [address] VIR SAPOVIRUS Not detected Normal Not Detected [facility] Comment on above: Performed By: #### G IP #### [facility] ([facility]) [address] [place] [address] VIR SHIGA TOXIN E COLI Not detected Normal Not Detected [facility] Comment on above: Performed By: #### G IP #### [facility] ([facility]) [address] [place] [address] VIR SHIGELLA-E COLI Not detected Normal Not Detected [facility] Comment on above: Performed By: #### G IP #### [facility] ([facility]) [address] [place] [address] VIR TOXIGENIC E COLI Not detected Normal Not Detected [facility] Comment on above: Performed By: #### G IP #### [facility] ([facility]) [address] [place] [address] VIR VIBRIO Not detected Normal Not Detected [facility] Comment on above: Performed By: #### G IP #### [facility] ([facility]) [address] [place] [address] VIR VIBRIO CHOLERAE Not detected Normal Not Detected [facility] Comment on above: Performed By: #### G IP #### [facility] ([facility]) [address] [place] [address] VIR Y. ENTEROCOLITICA Not detected Normal Not Detected [facility] Comment on above: Performed By: #### G IP #### [facility] ([facility]) [address] [place] [address] VIR LIPASEon 10-01-2024 Lipase [Catalytic activity/Vol] 32 U/L Normal 17-40 [facility] Comment on above: Performed By: #### L IPA #### [facility] ([address] [place] [address] VIR MAGNESIUMon 10-01-2024 Magnesium [Mass/Vol] 1.9 mg/dL Normal 1.8-2.[address] [facility] Comment on above: Performed By: #### M G #### [facility] ([address] [place] [address] VIR POCT NURSING URINE MACROSCOP IC UAon 10-01-2024 BILIRUBIN SHANT Negative Normal Negative [facility] Comment on above: Performed By: #### N UM #### [facility] ([address] [place] [address] VIR BLOOD/HGB SHANT Moderate Abnormal Negative [facility] Comment on above: Performed By: #### N UM #### [facility] ([address] [place] [address] VIR GLUCOSE SHANT Negative Normal Negative [facility] Comment on above: Performed By: #### N UM #### [facility] ([address] [place] [address] VIR KETONES SHANT Negative Normal Negative [facility] Comment on above: Performed By: #### N UM #### [facility] ([address] [place] [address] VIR LEUKOCYTE ESTERASE SHANT Negative Normal Negative [facility] Comment on above: Performed By: #### N UM #### [facility] ([address] [place] [address] VIR NITRITE SHANT Negative Normal Negative [facility] Comment on above: Performed By: #### N UM #### [facility] ([address] [place] [address] VIR PH SHANT 6.0 Normal 5.0, 6.0, 6.5, 7.0, 7.5, 8.0, 8.5, 5.5 [facility] Comment on above: Performed By: #### N UM #### [facility] ([address] [address] VIR PROTEIN SHANT Trace Abnormal Negative [facility] Comment on above: Performed By: #### N UM #### [facility] ([address] [place] [address] VIR SPECIFIC GRAVITY SHANT <=1.005 Abnormal 1.010, 1.015, 1.020, 1.025 [facility] Comment on above: Performed By: #### N UM #### [facility] ([address] [address] VIR UROBILINOGEN SHANT 0.2 E.U./dL [facility] Comment on above: Performed By: #### N UM #### [facility] ([address] Spine Lumbar Myelogram w/ Contraston [...] narrowing as detailed above. Radiation Dose Estimate: CTDI(mGy):0.231182 / / / kVp:120.841049 / mAs:0.421873 / / / DLP(mGy-cm):3.684632Iwte Part: CTDI(mGy):21.308800 / / / kVp:120.162999 / mAs:230.593564 / / / DLP(mGy-cm):616.666050Plzw Part: Final Dictated by: Alexey Morgan MD Dictated DT/TM: 07.30.2024 12:27 pm Signed by: Alexey Morgan MD Signed (Electronic Signature): 07.30.2024 12:38 pm (If Report Is Signed, Electronically Signed in Other Vendor System) Normal [facility] PTon 07-30-2024 INR Coag (PPP) [Relative time] 0.9 {INR} Normal <=3.5 [facility] Comment on above: Result Comment: INR has no normal range. INR Therapeutic range is: 2.0-3.0 (AF, CVA, TIAs, DVT prophylaxis, acute DVT) 2.5-3.5 ([facility] heart valves, recurrent thrombosis/emboli) Performed By: #### P TINR #### [address] [address] PT Coag (PPP) [Time] 10.4 s Normal 10.2-12.9 [facility] Comment on above: Performed By: #### P TINR #### [address] [address] PTTon 07-30-2024 aPTT Coag (Bld) [Time] 30.8 s Normal 25.1-36.5 [facility] Comment on above: Performed By: #### P TT #### [address] [address] Platelet Counton 07-30-2024 Platelet 313 x10*3/mcL Normal 150-450 [facility] Comment on above: Performed By: #### P TINR #### [address] [address] XR Myelography Lumbosacral S pineon 07-30-2024 XR [...] Electronically Signed in Other Vendor System) Normal [facility] Neurosurgery Office/Clinic N oteon 06-06-2024 Neurosurgery Office/Clinic Note Chief Complaint back follow up History of Present Illness The patient is a pleasant 64-year-old right-handed female with history of chronic nicotine use, asthma and recently diagnosed COPD for which she is planned to see a wax ball knock out worker in the near future. She also has [...] therapy without benefit. 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 Oral narcotics including Maddock which makes pain tolerable though does not resolve. Topical agents including lidocaine patches and Bengay with limited benefit. Pain management injection modalities years ago with temporary benefit lasting only a few days. Physical therapy years ago without significant benefit. Chiropractic manipulation x 1 visit without benefit therefore patient never returned. Activity modification [1] Pain management injection modalities through [facility]. Initial injection targeted left [...] No si (more content not included)... Normal [facility] Provider Letteron 06-06-2024 Provider Letter (Inserted Image. Gela ble to display) Cornelius Garrison MD [address] [place] [address], [place] [address] Re: Cristine Manley Date of Visit: 06/06/2024 Dear Cornelius Garrison MD, This patient was recently seen in the neurosurgical office. Please see attached note for further details. Let me know if you have any questions or concerns. Sincerely, DEMARCUS Gan Providers: The following document(s) were included in the letter: June 06, 2024 09:36:40 EST - (06/06/2024) Neurosurgery Office Visit Note Normal [facility] Dominick 04-22-2024 L ------ Specimen: [id number] Received: 04/24/24 Status: OMAR Aceves Num: [id number] Spec Type: Cytology Subm Dr: Cornelius Garrison MD Tissues: A FNA SLIDES NOPATH (INF RT THY) Procedures: Cyto Int and Re, PAPSTN/5 Age/ Patient Sex Location Account Attending Physician Cristine Manley 64/F [place] [id number] Cornelius Garrison MD SPEC NUM: [id number] RECD: 04/24/24 STATUS: OMAR ACEVES NUM: [id number] TORI: 04/22/24- SUBM DR: Cornelius Garrison MD ENTERED: 04/24/[address] [facility] DR: Les Lee MD SPEC TYPE: Cytology DEPT: KEN MINER ENTERED BY: [id number] RECV BY: [id number] ORDERED: Cyto Int and Re, PAPSTN/5 ORDERED: Cyto Int and Re, PAPSTN/5 Supplemental Report Addendum 1 Entered: 05/10/241132 Supplemental for findings of [facility] GENOMIC SEQUENCING BLOCK CUBER: -[employer] Specialist -Benign (risk of malignancy 4%) -Xpression [place] -N/A -Other Classifiers -BRAF p. V600E c. 1799T>A: Negative -RET/PTC1: Not detected -RET/PTC3: Not detected -MTC: Negative -Parathyroid: Negative TERT PROMOTER REGION: -Tests (2) not Performed (TNP) Specimen: [id number] Received: 04/24/24 Status: OMAR Aceves Num: [id number] Spec Type: Cytology Subm Dr: Cornelius Garrison MD Tissues: A FNA SLIDES NOPATH (INF RT THY) Procedures: Cyto Int and Re, PAPSTN/5 Patient: Cristine Manley [id number] (Continued) Specimen: [id number] Received: 04/24/24 (Continued) Supplemental Report (Continued) Signed (signature on file) Gail Sheth MD 04/24/24 7041 Specimen: [id number] Received: 04/24/24 Status: OMAR [place] Num: [id number] Spec Type: Cytology Subm Dr: Cornelius Garrison MD Tissues: A FNA SLIDES NOPATH (INF RT THY) Procedures: Cyto Int and Re, PAPSTN/5 Patient: Cristine Manley [id number] (Continued) Specimen: [id number] Received: 04/24/24 (Continued) Supplemental Report (Continued) Addendum Signed (signature on file) Gail Sheth MD 05/10/24 1132 Pathological Diagnosis Right thyroid nodule, inferior, FNA cytology -Adequate follicular groups in the ThinPrep smear, appropriate for assessment, consisting of small to occasionally slightly larger and reactive follicular cells, suggesting dimorphic population and the category 3 [place] system, atypia of the undetermined significance, otherwise [...] vial stored at -20 for microscopic examination. (ID/ny) Microscopic Description Microscopic examinations are performed supporting the above interpretation CPT Codes 17403 Specimen: [id number] Received: 04/24/24 Status: OMAR Aceves Num: [id number] Spec Type: Cytology Subm Dr: Cornelius Garrison MD Tissues: A FNA SLIDES NOPATH (INF RT THY) Procedures: Cyto Int and Re, PAPSTN/5 Patient: Cristine Manley [id number] (Continued) Signed (signature on file) Pedro-Diogenes Sheth MD 04/24/24 8509 Normal [facility] EMG 2 Extremitieson 04-01-20 EMG/NCS BLE Right L5/S1 radic Francisco S1/2 radic [facility] NVC 9-10 Nerveson 04-01-2024 EMG/NCS BLE Right L5/S1 radic Francisco S1/2 radic [facility] Provider Letteron 03-26-2024 Provider Letter (Inserted Image. Gela ble to display) Cornelius Garrison MD [address] [place] [address] [place] [address] Re: Cristine Manley Date of Visit: 03/25/2024 Dear Cornelius Garrison MD, This patient was recently seen in the neurosurgical office. Please see attached note for further details. Let me know if you have any questions or concerns. Sincerely, DEMARCUS Gan Providers: The following document(s) were included in the letter: March 25, 2024 17:40:13 EST - (03/25/2024) Neurosurgery Office Visit Note Normal [facility] Neurosurgery Office/Clinic N oteon 03-25-2024 Neurosurgery Office/Clinic Note Chief Complaint CT thoracic, lumbar, XR lumbar, hips and neck review History of Present Illness The patient is a pleasant 64-year-old right-handed female with history of chronic nicotine use, asthma and recently diagnosed COPD for which she is planned to see a wax ball knock out worker in the near future. She also has [...] though does not resolve. Oral narcotics including Maddock which makes pain tolerable though does not [...] increases slightl (more content not included)... Normal [facility] Basophils Auto (Bld) [#/Vol] on 03-21-2024 Basophils (Bld) [#/Vol] Automated basophil count 0.0-0.1 [facility] Basophils/100 WBC Auto (Bld) on 03-21-2024 Basophils/100 WBC (Bld) Automated basophil % 0.2-2.0 [facility] Eosinophils/100 WBC Auto (Bl d)on 03-21-2024 Eosinophils/100 WBC (Bld) Automated eosinophil % 0.9-7.0 [facility] Erythrocyte distribution wid th Auto (RBC) [Ratio]on 03-21-2024 Erythrocyte distribution width (RBC) [Ratio] Erythrocyte distribution width [Ratio] by Automated count 11.0-15.0 [facility] Hematocrit Auto (Bld) [Volum e fraction]on 03-21-2024 Hematocrit (Bld) [Volume fraction] Hematocrit [Volume Fraction] of Blood by Automated count 36.0-48.0 [facility] Hemoglobin [Mass/volume] in Bloodon 03-21-2024 Hemoglobin (Bld) [Mass/Vol] Hemoglobin [Mass/volume] in Blood 12.0-16.0 [facility] IgE [Units/volume] in Serum or Plasmaon 03-21-2024 IgE Qn IgE [Units/volume] i n Serum or Plasma 6-495 [facility] Comment on above: Performed at: [address] [id number] Director: Levi Pedroza MD, Phone: [phone] Laboratory - Hematology and Cell countson 03-21-2024 Immature granulocytes/100 WBC (Bld) 0.1 % 0.0-0.5 [facility] Leukocytes [#/volume] correc shant for nucleated erythrocytes in Blood by Automated counon 03-21-2024 WBC corrected for nucl RBC Auto (Bld) [#/Vol] Leukocytes [#/volume] corrected for nucleated erythrocytes in Blood by Automated coun 4.0-11.0 [facility] Lymphocytes Auto (Bld) [#/Vo l]on 03-21-2024 Lymphocytes (Bld) [#/Vol] Lymphocytes [#/volume] in Blood by Automated count 1.2-3.8 [facility] Lymphocytes/100 WBC Auto (Bl d)on 03-21-2024 Lymphocytes/100 WBC (Bld) Lymphocytes/100 leukocytes in Blood by Automated count Low 20.5-60.0 [facility] MCH Auto (RBC) [Entitic mass ]on 03-21-2024 MCH (RBC) [Entitic mass] MCH [Entitic mass] by Automated count 26.7-34.0 [facility] MCHC Auto (RBC) [Mass/Vol]on 03-21-2024 MCHC (RBC) [Mass/Vol] MCHC [Mass/volume] by Automated count 29.9-35.2 [facility] MCV Auto (RBC) [Entitic vol] on 03-21-2024 MCV (RBC) [Entitic vol] MCV [Entitic volume] by Automated count 81.0-99.0 [facility] Monocytes Auto (Bld) [#/Vol] on 03-21-2024 Monocytes (Bld) [#/Vol] Automated blood monocyte count 0.3-0.8 [facility] Monocytes/100 WBC Auto (Bld) on 03-21-2024 Monocytes/100 WBC (Bld) Automated monocyte % 1.7-12.0 [facility] Neutrophils Auto (Bld) [#/Vo l]on 03-21-2024 Neutrophils (Bld) [#/Vol] Neutrophils [#/volume] in Blood by Automated count High 1.4-6.5 [facility] Neutrophils/100 WBC Auto (Bl d)on 03-21-2024 Neutrophils/100 WBC (Bld) Automated neutrophil % 43.0-75.0 [facility] No Panel Informationon 03-21 Eosinophils # (Auto) 0.1 10 3/uL 0.0-0.7 [facility] Immature Granulocyte # (Auto) 0.01 10 3/uL 0.00-0.03 [facility] Platelet mean volume Auto (B ld) [Entitic vol]on 03-21-2024 Platelet mean volume (Bld) [Entitic vol] Platelet mean volume [Entitic volume] in Blood by Automated count 9.5-13.5 [facility] Platelets Auto (Bld) [#/Vol] on 03-21-2024 Platelets (Bld) [#/Vol] Platelets [#/volume] in Blood by Automated count 150-450 [facility] RBC Auto (Bld) [#/Vol]on RBC (Bld) [#/Vol] Erythrocytes [#/volu me] in Blood by Automated count 4.20-5.40 [facility] Provider Letteron 02-29-2024 Provider Letter (Inserted Image. Gela ble to display) Cornelius Whittaker [address], [place] [address] Re: Cristine Manley Date of Visit: 02/23/2024 Dear Cornelius Garrison MD, Please see attached results on this mutual patient you have with [facility] Result Name Current Result CT Spine Thoracic/Lumbar Myelogram w/Con 02/23/2024 Let me know if you have any questions or concerns. Sincerely, Jaclyn Bliss [facility] Supervisor C C Providers: Normal [facility] CT Spine Thoracic/Lumbar Mye logram w/Conon 02-27-2024 [...] Electronically Signed in Other Vendor System) Normal [facility] PTon 02-23-2024 INR Coag (PPP) [Relative time] 1.0 {INR} Normal <=3.5 [facility] Comment on above: Result Comment: INR has no normal range. INR Therapeutic range is: 2.0-3.0 (AF, CVA, TIAs, DVT prophylaxis, acute DVT) 2.5-3.5 ([facility] heart valves, recurrent thrombosis/emboli) Performed By: #### P TINR #### [address] [address] PT Coag (PPP) [Time] 10.3 s Normal 9.2-12.0 [facility] Comment on above: Performed By: #### P TINR #### [address] [address] PTTon 02-23-2024 aPTT Coag (Bld) [Time] 24.8 s Normal 19.5-28.2 [facility] Comment on above: Performed By: #### P TT #### [address] [address] Platelet Counton 02-23-2024 Platelet 300 x10*3/mcL Normal 150-450 [facility] Comment on above: Performed By: #### P LTS #### [address] [address] XR Hip 2-3 Views Lefton 02-08 XR [...] Electronically Signed in Other Vendor System) Normal [facility] XR Myelography Spine 2 or Mo re [...] Electronically Signed in Other Vendor System) Normal [facility] XR Spine Cervical 4 or 5 Vie [...] Electronically Signed in Other Vendor System) Normal [facility] XR Spine Lumbosacral Bending 2-3 Viewson 02-23-2024 [...] Electronically Signed in Other Vendor System) Normal [facility] Neurosurgery Office/Clinic N sherry 02-13-2024 Neurosurgery Office/Clinic Note Chief Complaint Back lumbar pain radiculopathy consult History of Present Illness The patient is a pleasant 64-year-old right-handed female with history of chronic nicotine use, asthma and recently diagnosed COPD for which she is planned to see a wax ball knock out worker in the near future. She also has [...] though does not resolve. Oral narcotics including Maddock which makes pain tolerable though does not [...] Newly diagnosed COPD, scheduled to see a wax ball knock out worker in the near future Chronic nicotine use [...] marijuana use. 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 She denies any Worker's Comp. related claims regarding today's visit FAMILY HISTORY: Lung cancer: Father Diabetes mellitus: Mother Hypertension: Mother Review of Systems Constitutional: [No fevers, chills, sweats] Eye: [No recent visual problems] ENMT: [ (more content not included)... Normal [facility] Provider Letteron 02-13-2024 Provider Letter (Inserted Image. Gela ble to display) Cornelius Garrison MD [facility] [place] [address] Re: Cristine Manley Date of Visit: 02/13/2024 Dear Cornelius Garrison MD, This patient was recently seen in the neurosurgical office. Please see attached note for further details. Let me know if you have any questions or concerns. Sincerely, DEMARCUS Gan Providers: The following document(s) were included in the letter: February 13, 2024 09:39:53 EST - (02/13/2024) Neurosurgery Office Visit Note Normal [facility] XR knee BI 3V - NOT FOR ER U Sanam 01-24-2024 XR knee BI 3V - NOT FOR ER USE [facility] [address] [place] [address] XRay Report Signed Patient: Cristine Manley MR#: [id number] 53 : 1960 Acct:[id number] Age/Sex: 64 / F ADM Date: 01/24/24 Loc: [facility] Room: Type: [facility] Attending Dr: Alexandro Galvez DO Copies [...] Sunday Graham M.D.01/24/2024 3:45 PM Dictation Location: [place] [address] Transcribed By: [facility] 01/24/24 154 Dictated By: Sunday Graham II, MD 01/24/24 154 Signed By: 01/24/241544 Normal [facility] Basophils Auto (Bld) [#/Vol] on 01-19-2024 Basophils (Bld) [#/Vol] 0.0 10 3/uL 0.0-0.1 [facility] Basophils (Bld) [#/Vol] Automated basophil count 0.0-0.1 [facility] Basophils/100 WBC Auto (Bld) on 01-19-2024 Basophils/100 WBC (Bld) 0.2 % 0.2-2.0 [facility] Basophils/100 WBC (Bld) Automated basophil % 0.2-2.0 [facility] Eosinophils/100 WBC Auto (Bl d)on 01-19-2024 Eosinophils/100 WBC (Bld) 4.3 % 0.9-7.0 [facility] Eosinophils/100 WBC (Bld) Automated eosinophil % 0.9-7.0 [facility] Erythrocyte distribution wid th Auto (RBC) [Ratio]on 01-19-2024 Erythrocyte distribution width (RBC) [Ratio] 13.1 % 11.0-15.0 [facility] Erythrocyte distribution width (RBC) [Ratio] Erythrocyte distribution width [Ratio] by Automated count 11.0-15.0 [facility] Estimated glomerular filtrat ion rate (GFR) non- Americanon 01-19-2024 GFR/1.73 sq M.predicted among non-blacks MDRD (S/P/Bld) [Vol rate/Area] mL/min/{1.73_m2} >=60 mL/min/1.73m 2 [facility] GFR/1.73 sq M.predicted among non-blacks MDRD (S/P/Bld) [Vol rate/Area] Estimated glomerular filtration rate (GFR) non- >=60 mL/min/1.73m 2 [facility] Fibrin D-dimer [Presence] in Platelet poor plasma by Latex agglutinationon 01-19-2024 Fibrin D-dimer LA Ql (PPP) 0.43 mg/L FEU <=0.59 [facility] Comment on above: Increases in D-Dimer [...] Platelet poor plasma by Latex agglutination <=0.59 [facility] Comment on above: Increases in D-Dimer [...] Hematocrit (Bld) [Volume fraction] 39.5 % 36.0-48.0 [facility] Hematocrit (Bld) [Volume fraction] Hematocrit [Volume Fraction] of Blood by Automated count 36.0-48.0 [facility] Hemoglobin [Mass/volume] in Bloodon 01-19-2024 Hemoglobin (Bld) [Mass/Vol] 12.8 g/dL 12.0-16.0 [facility] Hemoglobin (Bld) [Mass/Vol] Hemoglobin [Mass/volume] in Blood 12.0-16.0 [facility] Laboratory - Chemistry and C hemistry - challengeon 01-19-2024 Calcium [Mass/Vol] 9.0 mg/dL 8.5-10.1 [facility] Chloride [Moles/Vol] 105 mmol/L 98-107 [facility] CO2 [Moles/Vol] 28.7 mmol/L 21.0-32.0 [facility] Creatinine [Mass/Vol] 0.92 mg/dL 0.55-1.02 [facility] GFR/1.73 sq M.predicted MDRD (S/P/Bld) [Vol rate/Area] mL/min/{1.73_m2} >=60 mL/min/1.73m 2 [facility] Glucose [Mass/Vol] 78 mg/dL 74-106 [facility] Potassium [Moles/Vol] 4.0 mmol/L 3.5-5.1 [facility] Sodium [Moles/Vol] 138 mmol/L 136-145 [facility] Urea nitrogen [Mass/Vol] 27.0 mg/dL High 7.0-18.0 [facility] Urea nitrogen/Creatinine [Mass ratio] 29.3 mg/mg [facility] Laboratory - Hematology and Cell countson 01-19-2024 Immature granulocytes/100 WBC (Bld) 0.3 % 0.0-0.5 [facility] - Microbiology an d Antimicrobial susceptibilityon 01-19-2024 SARS-CoV-2 (COVID-19) RNA JOSELUIS+probe Ql (Unsp spec) Negative NEGATIVE [facility] Comment on above: This test has [...] (Bld) [#/Vol] 12.6 10 3/uL High 4.0-11.0 [facility] WBC corrected for nucl RBC Auto (Bld) [#/Vol] Leukocytes [#/volume] corrected for nucleated erythrocytes in Blood by Automated coun High 4.0-11.0 [facility] Lymphocytes Auto (Bld) [#/Vo l]on 01-19-2024 Lymphocytes (Bld) [#/Vol] 4.4 10 3/uL High 1.2-3.8 [facility] Lymphocytes (Bld) [#/Vol] Lymphocytes [#/volume] in Blood by Automated count High 1.2-3.8 [facility] Lymphocytes/100 WBC Auto (Bl d)on 01-19-2024 Lymphocytes/100 WBC (Bld) 35.0 % 20.5-60.0 [facility] Lymphocytes/100 WBC (Bld) Lymphocytes/100 leukocytes in Blood by Automated count 20.5-60.0 [facility] MCH Auto (RBC) [Entitic mass ]on 01-19-2024 MCH (RBC) [Entitic mass] 29.4 pg 26.7-34.0 [facility] MCH (RBC) [Entitic mass] MCH [Entitic mass] by Automated count 26.7-34.0 [facility] MCHC Auto (RBC) [Mass/Vol]on 01-19-2024 MCHC (RBC) [Mass/Vol] 32.4 g/dL 29.9-35.2 [facility] MCHC (RBC) [Mass/Vol] MCHC [Mass/volume] by Automated count 29.9-35.2 [facility] MCV Auto (RBC) [Entitic vol] on 01-19-2024 MCV (RBC) [Entitic vol] 90.6 fL 81.0-99.0 [facility] MCV (RBC) [Entitic vol] MCV [Entitic volume] by Automated count 81.0-99.0 [facility] Monocytes Auto (Bld) [#/Vol] on 01-19-2024 Monocytes (Bld) [#/Vol] 1.2 10 3/uL High 0.3-0.8 [facility] Monocytes (Bld) [#/Vol] Automated blood monocyte count High 0.3-0.8 [facility] Monocytes/100 WBC Auto (Bld) on 01-19-2024 Monocytes/100 WBC (Bld) 9.5 % 1.7-12.0 [facility] Monocytes/100 WBC (Bld) Automated monocyte % 1.7-12.0 [facility] Neutrophils Auto (Bld) [#/Vo l]on 01-19-2024 Neutrophils (Bld) [#/Vol] 6.4 10 3/uL 1.4-6.5 [facility] Neutrophils (Bld) [#/Vol] Neutrophils [#/volume] in Blood by Automated count 1.4-6.5 [facility] Neutrophils/100 WBC Auto (Bl d)on 01-19-2024 Neutrophils/100 WBC (Bld) 50.7 % 43.0-75.0 [facility] Neutrophils/100 WBC (Bld) Automated neutrophil % 43.0-75.0 [facility] No Panel Informationon 01-18 Bedside Influenza Type A Antigen Negative [facility] Comment on above: Negative for Flu A p rotein antigen. Infection due to Flu Acannot be ruled out. Flu A antigen in the sample may bebelow the detection limit of the test. Bedside Influenza Type B Antigen Negative [facility] Comment on above: Negative for Flu B p rotein antigen. Infection due to Flu Bcannot be ruled out. Flu B antigen in the sample may bebelow the detection limit of the test. Eosinophils # (Auto) 0.5 10 3/uL 0.0-0.7 [facility] Immature Granulocyte # (Auto) 0.04 10 3/uL High 0.00-0.03 [facility] Troponin I High Sensitivity 5.8 pg/mL 4.0-51.3 [facility] Comment on above: CUT-OFF POINTS HAVE [...] (Bld) [Entitic vol] 9.3 fL Low 9.5-13.5 [facility] Platelet mean volume (Bld) [Entitic vol] Platelet mean volume [Entitic volume] in Blood by Automated count Low 9.5-13.5 [facility] Platelets Auto (Bld) [#/Vol] on 01-19-2024 Platelets (Bld) [#/Vol] 304 10 3/uL 150-450 [facility] Platelets (Bld) [#/Vol] Platelets [#/volume] in Blood by Automated count 150-450 [facility] RBC Auto (Bld) [#/Vol]on RBC (Bld) [#/Vol] 4.36 10 6/uL 4.20-5.40 [facility] RBC (Bld) [#/Vol] Erythrocytes [#/volu me] in Blood by Automated count 4.20-5.40 [facility] Serum or plasma anion gap de terminationon 01-19-2024 Anion gap [Moles/Vol] 8.3 mmol/L [facility] Anion gap [Moles/Vol] Serum or plasma an ion gap determination [facility] Borrelia burgdorferi IgG+IgM Ab [Presence] in Serum by Immunoassayon 10-13-2023 B. burgdorferi IgG+IgM IA Ql (S) Negative Negative [facility] Comment on above: Lyme antibodies not detected. Reflex testing is notindicated.No laboratory evidence of infection with B. burgdorferi(Lyme disease). Negative results may occur in patientsrecently infected (less than or equal to 14 days) with B.burgdorferi. If recent infection is suspected, repeattesting on a new sample collected in 7 to 14 days isrecommended.Performed at: - [address] [id number] Director: Jeovany Bazan PhD, Phone: [phone] Covid-19 PCR (CVDTB)on SARS-CoV-2 (COVID-19) RNA JOSELUIS+probe Ql (Unsp spec) Not detected Normal NOT DETECTED [facility] Comment on above: Result Comment: This test is not yet approved or cleared by the [place] FDA. When there are no FDA-approved or cleared tests available, and other criteria are met, FDA can make tests available under an emergency access mechanism called an Emergency Use Authorization (EUA). The EUA for this test is supported by the [place] of Health and Human Service's (HHS's) declaration [...] SARS-CoV-2. Performed By: #### C VDTBH #### [facility] [address] [place] [address] Dr. Pablo Sheth CBC AUTO DIFFon 12-17-2021 BASO # 0.1 103/ul Normal 0.0-0.1 [facility] Comment on above: Performed By: #### D ATCBC #### [facility] [address] [place] [address] Dr. Pablo Sheth Basophils/100 WBC (Bld) 0.4 % Normal 0.2-2.0 [facility] Comment on above: Performed By: #### D ATCBC #### [facility] [address] [place] [address] Dr. Pablo Sheth EO # 0.3 103/ul Normal 0.0-0.7 [facility] Comment on above: Performed By: #### D ATCBC #### [facility] [address] [place] [address] Dr. Pablo Sheth Eosinophils/100 WBC (Bld) 2.4 % Normal 0.9-7.0 [facility] Comment on above: Performed By: #### D ATCBC #### [facility] [address] [place] [address] Dr. Pablo Sheth Erythrocyte distribution width (RBC) [Ratio] 13.2 % Normal 11.0-15.0 [facility] Comment on above: Performed By: #### D ATCBC #### [facility] [address] [place] [address] Dr. Pablo Sheth Hematocrit (Bld) [Volume fraction] 42.6 % Normal 36.0-48.0 [facility] Comment on above: Performed By: #### D ATCBC #### [facility] [address] [place] [address] [address] Pablo Sheth Hemoglobin (Bld) [Mass/Vol] 13.7 g/dL Normal 12.0-16.0 [facility] Comment on above: Performed By: #### D ATCBC #### [facility] [address] [place] [address] [address] Pablo Sheth IG # 0.05 10e3/ul Critically high 0.00-0.03 [facility] Comment on above: Performed By: #### D ATCBC #### [facility] [address] [place] [address] [address] Pablo Sheth IG % 0.4 % Normal 0.0-0.5 [facility] Comment on above: Performed By: #### D ATCBC #### [facility] [address] [place] [address] [address] Pablo Sheth LYMPH # 2.8 103/ul Normal 1.2-3.8 [facility] Comment on above: Performed By: #### D ATCBC #### [facility] [address] [place] [address] [address] Pablo Sheth Lymphocytes/100 WBC (Bld) 20.9 % Normal 20.5-60.0 [facility] Comment on above: Performed By: #### D ATCBC #### [facility] [address] [place] [address] [address] Pablo Sheth MCH (RBC) [Entitic mass] 29.2 pg Normal 26.7-34.0 [facility] Comment on above: Performed By: #### D ATCBC #### [facility] [address] [place] [address] [address] Pablo Sheth MCHC (RBC) [Mass/Vol] 32.2 g/dL Normal 29.9-35.2 [facility] Comment on above: Performed By: #### D ATCBC #### [facility] [address] [place] [address] [address] Pablo Sheth MCV (RBC) [Entitic vol] 90.8 fL Normal 81.0-99.0 [facility] Comment on above: Performed By: #### D ATCBC #### [facility] [address] [place] [address] Dr. Pablo Sheth MONO # 1.0 103/ul Critically high 0.3-0.8 [facility] Comment on above: Performed By: #### D ATCBC #### [facility] [address] [place] [address] Dr. Pablo Sheth Monocytes/100 WBC (Bld) 7.5 % Normal 1.7-12.0 [facility] Comment on above: Performed By: #### D ATCBC #### [facility] [address] [place] [address] Dr. Pablo Sheth NEUT # 9.2 103/ul Critically high 1.4-6.5 [facility] Comment on above: Performed By: #### D ATCBC #### [facility] [address] [place] [address] Dr. Pablo Sheth Neutrophils/100 WBC (Bld) 68.4 % Normal 43.0-75.0 [facility] Comment on above: Performed By: #### D ATCBC #### [facility] [address] [place] [address] Dr. Pablo Sheth Platelet mean volume (Bld) [Entitic vol] 9.3 fL Critically low 9.5-13.5 [facility] Comment on above: Performed By: #### D ATCBC #### [facility] [address] [place] [address] Dr. Pablo Sheth PLT 313 103/ul Normal 150-450 [facility] Comment on above: Performed By: #### D ATCBC #### [facility] [address] [place] [address] Dr. Pablo Sheth RBC 4.69 106/ul Normal 4.20-5.40 [facility] Comment on above: Performed By: #### D ATCBC #### [facility] [address] [place] [address] Dr. Pablo Sheth WBC 13.4 103/ul Critically high 4.0-11.0 [facility] Comment on above: Performed By: #### D ATCBC #### [facility] [address] [place] [address] [address] Pablo Sheth BERKLEY - TSHon 12-17-2021 TSH 1.241 uIU/mL Normal 0.358-3.740 [facility] Comment on above: Performed By: #### D ATTSH, DATBMP #### [facility] [address] [place] [address] Dr. Pablo Sheth TSH RANGE SEE BELOW Normal [facility] Comment on above: Result Comment: <0.3 4 UIU/ml HYPERTHYROID 0.34-5.60 UIU/ml EUTHYROID >5.60 UIU/ml HYPOTHYROID Performed By: #### D ATTTONYA, DATBMP #### [facility] [address] [place] [address] Dr. Pablo Sheth BERKLEY- BMP WITH LIPIDon 2021 Anion gap [Moles/Vol] 11.9 mmol/L Normal [facility] Comment on above: Performed By: #### D ATTSH, DATBMP #### [facility] [address] [place] [address] Dr. Pablo Sheth Calcium [Mass/Vol] 9.1 mg/dL Normal 8.5-10.1 [facility] Comment on above: Performed By: #### D ATTSH, DATBMP #### [facility] [address] [place] [address] Dr. Pablo Sheth Chloride [Moles/Vol] 104 mmol/L Normal 98-107 [facility] Comment on above: Performed By: #### D ATTSH, DATBMP #### [facility] [address] [place] [address] Dr. Pablo Sheth Cholesterol [Mass/Vol] 207 mg/dL Critically high <=200 [facility] Comment on above: Performed By: #### D ATTSH, DATBMP #### [facility] [address] [place] [address] Dr. Pablo Sheth Cholesterol in HDL [Mass/Vol] 52 mg/dL Normal 40-60 [facility] Comment on above: Performed By: #### D ATTSH, DATBMP #### [facility] [address] [place] [address] [address] Pablo Sheth Cholesterol in LDL [Mass/Vol] 141.4 mg/dL Normal [facility] Comment on above: Performed By: #### D ATTSH, DATBMP #### [facility] [address] [place] [address] [address] Pablo Sheth CO2 [Moles/Vol] 29.3 mmol/L Normal 21.0-32.0 [facility] Comment on above: Performed By: #### D ATTSH, DATBMP #### [facility] [address] [place] [address] [address] Pablo Sheth Creatinine [Mass/Vol] 0.77 mg/dL Normal 0.55-1.02 [facility] Comment on above: Performed By: #### D ATTSH, DATBMP #### [facility] [address] [place] [address] [address] Pablo Sheth EGFR-AF SURINAMESE >60 Normal >=60 [facility] Comment on above: Performed By: #### D ATTSH, DATBMP #### [facility] [address] [place] [address] [address] Pablo Sheth EGFR-NON AF SURINAMESE >60 Normal >=60 [facility] Comment on above: Performed By: #### D ATTSH, DATBMP #### [facility] [address] [place] [address] [address] Pablo Sheth Glucose [Mass/Vol] 109 mg/dL Critically high 74-106 [facility] Comment on above: Performed By: #### D ATTSH, DATBMP #### [facility] [address] [place] [address] [address] Pablo Sheth HDL NORMAL > or = 60 mg/dl - LO W CARDIOVASCULAR RISK <40 mg/dl - HIGH CARDIOVASCULAR RISK Normal [facility] Comment on above: Performed By: #### D ATTSH, DATBMP #### [facility] [address] [address] [address] Pablo Sheth LDL CALC NORMAL SEE BELOW Normal [facility] Comment on above: Result Comment: <100 mg/dl OPTIMAL 100 - 129 mg/dl NEAR OR ABOVE OPTIMAL 130 - 159 mg/dl BORDERLINE HIGH 160 - 189 mg/dl HIGH >190 mg/dl VERY HIGH Performed By: #### D ATTTONYA, DATBMP #### [facility] [address] [place] [address] [address] Pablo Sheth Potassium [Moles/Vol] 4.2 mmol/L Normal 3.5-5.1 [facility] Comment on above: Performed By: #### D ATTSH, DATBMP #### [facility] [address] [place] [address] [address] Pablo Sheth Sodium [Moles/Vol] 141 mmol/L Normal 136-145 [facility] Comment on above: Performed By: #### D ATTTONYA, DATBMP #### [facility] [address] [place] [address] Dr. Pablo Sheth Triglyceride [Mass/Vol] 68 mg/dL Normal <=150 [facility] Comment on above: Performed By: #### D JOSE J, DATBMP #### [facility] [address] [place] [address] [address] Pablo Sheth Urea nitrogen [Mass/Vol] 26.0 mg/dL Critically high 7.0-18.0 [facility] Comment on above: Performed By: #### D JOSE J, DATBMP #### [facility] [address] [address] [address] Pablo Sheth Urea nitrogen/Creatinine [Mass ratio] 33.8 mg/mg Normal [facility] Comment on above: Performed By: #### D ATTTONYA, DATBMP #### [facility] [address] [address] [address] Pablo Sheth VLDL CALC 13.6 mg/dL Normal [facility] Comment on above: Performed By: #### D ATTSH, DATBMP #### [facility] [address] [address] [address] Pablo Sheth Vital Signs Date Time Vital Sign Value Performing Clinician Facility 12-06-2024 11:35-0400 Body height 170.18 cm Cornelius Garrison MD Work Phone: [facility] 12-06-2024 11:35-0400 Body mass index (BMI) [Ratio] 25.6 kg/m2 Cornelius Garrison MD Work Phone: [facility] 12-06-2024 11:35-0400 Body weight 74.16 kg Cornelius Garrison MD Work Phone: [facility] 12-06-2024 11:35-0400 Diastolic blood pressure 60 mm[Hg] Cornelius Garrison MD Work Phone: [facility] 12-06-2024 11:35-0400 Heart rate 63 /min Cornelius Garrison MD Work Phone: [facility] 12-06-2024 11:35-0400 Respiratory rate 14 /min Cornelius Garrison MD Work Phone: [facility] 12-06-2024 11:35-0400 SaO2% (BldA) [Mass fraction] 96 % Cornelius Garrison MD Work Phone: [facility] 12-06-2024 11:35-0400 Systolic blood pressure 92 mm[Hg] Cornelius Garrison MD Work Phone: [facility] 11-15-2024 14:38-0400 Body height 170.18 cm Cornelius Garrison MD Work Phone: [facility] 11-15-2024 14:38-0400 Body mass index (BMI) [Ratio] 26.6 kg/m2 Cornelius Garrison MD Work Phone: [facility] 11-15-2024 14:38-0400 Body weight 77.11 kg Cornelius Garrison MD Work Phone: [facility] 11-15-2024 14:38-0400 Diastolic blood pressure 77 mm[Hg] Cornelius Garrison MD Work Phone: [facility] 11-15-2024 14:38-0400 Heart rate 82 /min Cornelius Garrison MD Work Phone: [facility] 11-15-2024 14:38-0400 Systolic blood pressure 116 mm[Hg] Cornelius Garrison MD Work Phone: [facility] 09-27-2024 14:55-0400 Diastolic blood pressure 77 mm[Hg] Cornelius Garrison MD Work Phone: [facility] 09-27-2024 14:55-0400 Heart rate 86 /min Cornelius Garrison MD Work Phone: [facility] 09-27-2024 14:55-0400 Systolic blood pressure 107 mm[Hg] Cornelius Garrison MD Work Phone: [facility] 09-27-2024 14:42-0400 Body height 170.18 cm Cornelius Garrison MD Work Phone: [facility] 09-27-2024 14:42-0400 Body mass index (BMI) [Ratio] 26.4 kg/m2 Cornelius Garrison MD Work Phone: [facility] 09-27-2024 14:42-0400 Body temperature 98.5 [degF] Cornelius Garrison MD Work Phone: [facility] 09-27-2024 14:42-0400 Body weight 76.65 kg Cornelius Garrison MD Work Phone: [facility] 09-27-2024 14:42-0400 SaO2% (BldA) [Mass fraction] 98 % Cornelius Garrison MD Work Phone: [facility] 06-26-2024 08:30-0400 Body height 170.18 cm Cornelius Garrison MD Work Phone: [facility] 06-26-2024 08:30-0400 Body mass index (BMI) [Ratio] 27.6 kg/m2 Cornelius Garrison MD Work Phone: [facility] 06-26-2024 08:30-0400 Body weight 79.94 kg Cornelius Garrison MD Work Phone: [facility] 06-26-2024 08:30-0400 Diastolic blood pressure 107 mm[Hg] Cornelius Garrison MD Work Phone: [facility] 06-26-2024 08:30-0400 Heart rate 80 /min Cornelius Garrison MD Work Phone: [facility] 06-26-2024 08:30-0400 Respiratory rate 12 /min Cornelius Garrison MD Work Phone: [facility] 06-26-2024 08:30-0400 SaO2% (BldA) [Mass fraction] 95 % Cornelius Garrison MD Work Phone: [facility] 06-26-2024 08:30-0400 Systolic blood pressure 168 mm[Hg] Cornelius Garrison MD Work Phone: [facility] 06-05-2024 14:11-0500 Body height 170.2 cm Geoff Moyergovindhenrietta DO Work Phone: [facility] 06-05-2024 14:11-0500 Body mass index (BMI) [Ratio] 27.72 kg/m2 Geoff Comfortcek DO Work Phone: [facility] 06-05-2024 14:11-0500 Body weight 80.29 kg Geoff Moyershyann DO Work Phone: [facility] 04-15-2024 15:14-0500 Body height 170.18 cm Cornelius Garrison MD Work Phone: [facility] 04-15-2024 15:14-0500 Body mass index (BMI) [Ratio] 27.7 kg/m2 Cornelius Garrison MD Work Phone: [facility] 04-15-2024 15:14-0500 Body temperature 98.4 [degF] Cornelius Garrison MD Work Phone: [facility] 04-15-2024 15:14-0500 Body weight 80.28 kg Cornelius Garrison MD Work Phone: [facility] 04-15-2024 15:14-0500 Diastolic blood pressure 82 mm[Hg] Cornelius Garrison MD Work Phone: [facility] 04-15-2024 15:14-0500 Heart rate 83 /min Cornelius Garrison MD Work Phone: [facility] 04-15-2024 15:14-0500 Respiratory rate 20 /min Cornelius Garrison MD Work Phone: [facility] 04-15-2024 15:14-0500 SaO2% (BldA) [Mass fraction] 96 % Cornelius Garrison MD Work Phone: [facility] 04-15-2024 15:14-0500 Systolic blood pressure 128 mm[Hg] Cornelius Garrison MD Work Phone: [facility] 03-29-2024 08:56-0500 Body height 170.18 cm Cornelius Garrison MD Work Phone: [facility] 03-29-2024 08:56-0500 Body mass index (BMI) [Ratio] 27.2 kg/m2 Cornelius Garrison MD Work Phone: [facility] 03-29-2024 08:56-0500 Body weight 78.92 kg Cornelius Garrison MD Work Phone: [facility] 03-29-2024 08:56-0500 Diastolic blood pressure 86 mm[Hg] Cornelius Garrison MD Work Phone: [facility] 03-29-2024 08:56-0500 Heart rate 91 /min Cornelius Garrison MD Work Phone: [facility] 03-29-2024 08:56-0500 SaO2% (BldA) [Mass fraction] 95 % Cornelius Garrison MD Work Phone: [facility] 03-29-2024 08:56-0500 Systolic blood pressure 124 mm[Hg] Cornelius Garrison MD Work Phone: [facility] 03-11-2024 15:29-0500 Body height 170.18 cm Cornelius Garrison MD Work Phone: [facility] 03-11-2024 15:29-0500 Body mass index (BMI) [Ratio] 27.8 kg/m2 Cornelius Garrison MD Work Phone: [facility] 03-11-2024 15:29-0500 Body temperature 97.6 [degF] Cornelius Garrison MD Work Phone: [facility] 03-11-2024 15:29-0500 Body weight 80.73 kg Cornelius Garrison MD Work Phone: [facility] 03-11-2024 15:29-0500 Diastolic blood pressure 80 mm[Hg] Cornelius Garrison MD Work Phone: [facility] 03-11-2024 15:29-0500 Heart rate 82 /min Cornelius Garrison MD Work Phone: [facility] 03-11-2024 15:29-0500 Respiratory rate 20 /min Cornelius Garrison MD Work Phone: [facility] 03-11-2024 15:29-0500 SaO2% (BldA) [Mass fraction] 98 % Cornelius Garrison MD Work Phone: [facility] 03-11-2024 15:29-0500 Systolic blood pressure 134 mm[Hg] Cornelius Garrison MD Work Phone: [facility] 02-08-2024 13:55-0400 Body height 170.18 cm MD Cornelius Garrison Work Phone: [facility] 02-08-2024 13:55-0400 Body mass index (BMI) [Ratio] 27.9 kg/m2 MD Cornelius Garrison Work Phone: [facility] 02-08-2024 13:55-0400 Body weight 80.9 kg MD Cornelius Garrison Work Phone: [facility] 02-08-2024 13:55-0400 Diastolic blood pressure 78 mm[Hg] MD Cornelius Garrison Work Phone: [facility] 02-08-2024 13:55-0400 Heart rate 74 /min MD Cornelius Garrison Work Phone: [facility] 02-08-2024 13:55-0400 SaO2% (BldA) [Mass fraction] 96 % MD Cornelius Garrison Work Phone: [facility] 02-08-2024 13:55-0400 Systolic blood pressure 110 mm[Hg] MD Cornelius Garrison Work Phone: [facility] 01-24-2024 14:35-0400 Body height 170.18 cm MD Cornelius Garrison Work Phone: [facility] 01-24-2024 14:35-0400 Body mass index (BMI) [Ratio] 28.3 kg/m2 MD Cornelius Garrison Work Phone: [facility] 01-24-2024 14:35-0400 Body weight 82.21 kg MD Cornelius Garrison Work Phone: [facility] 01-09-2024 15:17-0400 Body height 167.64 cm [facility] 01-09-2024 15:17-0400 Body mass index (BMI) [Ratio] 28.2 kg/m2 [facility] 01-09-2024 15:17-0400 Body weight 79.37 kg [facility] 01-09-2024 15:17-0400 Diastolic blood pressure 91 mm[Hg] [facility] 01-09-2024 15:17-0400 Heart rate 76 /min [facility] 01-09-2024 15:17-0400 SaO2% (BldA) [Mass fraction] 97 % [facility] 01-09-2024 15:17-0400 Systolic blood pressure 135 mm[Hg] [facility] 11-01-2023 08:57-0400 Body height 167.64 cm [facility] 11-01-2023 08:57-0400 Body mass index (BMI) [Ratio] 28.2 kg/m2 [facility] 11-01-2023 08:57-0400 Body weight 79.37 kg [facility] 11-01-2023 08:57-0400 Diastolic blood pressure 90 mm[Hg] [facility] 11-01-2023 08:57-0400 Heart rate 63 /min [facility] 11-01-2023 08:57-0400 Systolic blood pressure 136 mm[Hg] [facility] 10-13-2023 09:19-0400 Body height 167.64 cm [facility] 10-13-2023 09:19-0400 Body mass index (BMI) [Ratio] 28 kg/m2 [facility] 10-13-2023 09:19-0400 Body weight 78.92 kg [facility] 10-13-2023 09:19-0400 Diastolic blood pressure 76 mm[Hg] [facility] 10-13-2023 09:19-0400 Heart rate 78 /min [facility] 10-13-2023 09:19-0400 SaO2% (BldA) [Mass fraction] 98 % [facility] 10-13-2023 09:19-0400 Systolic blood pressure 118 mm[Hg] [facility] 07-31-2023 10:09-0400 Body height 167.64 cm [facility] 07-31-2023 10:09-0400 Body mass index (BMI) [Ratio] 28.8 kg/m2 [facility] 07-31-2023 10:09-0400 Body weight 80.9 kg [facility] 07-31-2023 10:09-0400 Diastolic blood pressure 89 mm[Hg] [facility] 07-31-2023 10:09-0400 Heart rate 74 /min [facility] 07-31-2023 10:09-0400 Systolic blood pressure 138 mm[Hg] [facility] 12-22-2021 14:20-0400 Blood Pressure Location Mihaela CALVILLO [facility] [place] 12-22-2021 14:20-0400 Diastolic blood pressure 80 mm[Hg] Mihaela CALVILLO [facility] [place] 12-22-2021 14:20-0400 Heart rate 72 /min Mihaela NILL [facility] [place] 12-22-2021 14:20-0400 Respiratory rate 16 /min Mihaela CALVILLO [facility] [place] 12-22-2021 14:20-0400 Systolic blood pressure 116 mm[Hg] Mihaela CALVILLO [facility] [place] Encounters Encounter Date Encounter Type Care Provider Facility Start: 12-06-2024 End: 12-06-2024 ambulatory Cornelius Garrison MD Work Phone: [facility] Work Phone: Start: 12-06-2024 End: 12-06-2024 Patient encounter procedure Cornelius Garrison MD -[facility] Work Phone: Start: 12-02-2024 End: 12-02-2024 ambulatory Cornelius Garrison MD Work Phone: [facility] Work Phone: Start: 12-02-2024 End: 12-02-2024 Departed Referred Cornelius Garrison MD -[facility] Work Phone: Start: 12-02-2024 End: 12-02-2024 ambulatory Cornelius Garrison MD Work Phone: [facility] Work Phone: Start: 12-02-2024 End: 12-02-2024 Patient encounter procedure Cornelius Garrison MD -[facility] Work Phone: Start: 11-26-2024 End: 11-26-2024 ambulatory BRIE MCKAY Facility:[facility] Start: 11-26-2024 End: 11-26-2024 Patient encounter procedure BRIE MCKAY [facility] Start: 11-18-2024 End: 11-18-2024 ambulatory Roselyn Shah Facility:[facility] Start: 11-18-2024 End: 11-18-2024 Patient encounter procedure Roselyn Shah [facility] Start: 11-15-2024 End: 11-15-2024 ambulatory Cornelius Garrison MD Work Phone: [facility] Work Phone: Start: 11-15-2024 End: 11-15-2024 Patient encounter procedure Cornelius Garrison MD -[facility] Work Phone: Start: 11-13-2024 Non-patient / Non-visit Vera Peace [facility] Work Phone: Start: 11-13-2024 End: 11-13-2024 ambulatory Cornelius Garrison MD Work Phone: [facility] Work Phone: Start: 11-13-2024 End: 11-13-2024 Departed Referred Brie Mckay MD -[facility] Start: 11-13-2024 Non-patient / Non-visit Jules France [facility] Work Phone: Start: 11-13-2024 End: 11-13-2024 ambulatory BRIE MCKAY Facility:[id number] Start: 11-12-2024 Non-patient / Non-visit Delvin Carlos [facility] Work Phone: Start: 11-07-2024 ambulatory BRIE MCKAY Facility:[facility] [place] Start: 11-04-2024 Non-patient / Non-visit Vera Peace [facility] Work Phone: Start: 11-03-2024 End: 11-03-2024 ambulatory Cornelius Garrison MD Work Phone: [facility] Work Phone: Start: 11-03-2024 End: 11-03-2024 Departed Referred Cornelius Garrison MD -[facility] Start: 11-03-2024 Non-patient / Non-visit Carlin kumari MD -[facility] Work Phone: Start: 10-02-2024 Non-patient / Non-visit Vera Choudhary evelyn [facility] Work Phone: Start: 10-01-2024 End: 10-01-2024 Emergency department patient visit CORNELIUS GARRISON [facility] Start: 09-27-2024 End: 09-27-2024 Patient encounter procedure Cornelius Garrison MD -[facility] Work Phone: Start: 07-30-2024 End: 07-30-2024 ambulatory Cornelius Garrison MD Facility:[facility] Start: 07-22-2024 End: 07-22-2024 ambulatory [facility] Start: 07-08-2024 End: 07-08-2024 ambulatory Duong Oreilly MD Facility: [facility] Start: 06-26-2024 End: 06-26-2024 ambulatory Cornelius Garrison MD Work Phone: [facility] Work Phone: Start: 06-26-2024 End: 06-26-2024 Patient encounter procedure Cornelius Garrison MD Work Phone: [facility] Work Phone: Start: 06-17-2024 End: 06-17-2024 ambulatory Duong Oreilly MD Facility:[facility] [place] Start: 06-06-2024 End: 06-06-2024 ambulatory Cornelius Garrison MD Facility:[facility] Start: 06-05-2024 End: 06-05-2024 Office outpatient [...] End: 05-13-2024 ambulatory Duong Oreilly MD Facility:[facility] [place] Start: 05-10-2024 ambulatory Cornelius Garrison MD Work Phone: [facility] Work Phone: Start: 05-10-2024 Non-patient / Non-visit Cornelius Garrison MD Work Phone: [facility] Work Phone: Start: 04-29-2024 End: 04-29-2024 ambulatory Duong Oreilly MD Facility:[facility] [place] Start: 04-22-2024 End: 04-22-2024 ambulatory Cornelius Garrison MD Work Phone: [facility] Work Phone: Start: 04-22-2024 End: 04-22-2024 Departed Referred Cornelius Garrison MD Work Phone: [facility] Start: 04-22-2024 End: 04-22-2024 ambulatory Cornelius Garrison MD Facility:[facility] [place] Start: 04-15-2024 End: 04-15-2024 ambulatory Cornelius Garrison MD Work Phone: [facility] Work Phone: Start: 04-15-2024 End: 04-15-2024 Patient encounter procedure Cornelius Garrison MD Work Phone: [facility] Work Phone: Start: 04-01-2024 [...] encounter procedure Cornelius Garrison MD Work Phone: [facility] Work Phone: Start: 03-25-2024 End: 03-25-2024 ambulatory Cornelius Garrison MD Facility:[facility] Start: 03-21-2024 Non-patient / Non-visit Cornelius Garrison MD Work Phone: [facility] Work Phone: Start: 03-11-2024 End: 03-11-2024 Patient encounter procedure Cornelius Garrison MD Work Phone: [facility] Work Phone: Start: 03-04-2024 Non-patient / Non-visit Cornelius Garrison MD Work Phone: [facility] Work Phone: Start: 03-04-2024 End: 03-04-2024 Patient encounter procedure Cornelius Garrison MD Work Phone: [facility] Work Phone: Start: 03-04-2024 End: 03-04-2024 ambulatory Cornelius Garrison Facility:[facility] Start: 02-23-2024 End: 02-23-2024 ambulatory Cornelius Garrison MD Facility:[facility] Start: 02-19-2024 End: 02-19-2024 ambulatory Cornelius Garrison MD Facility:[facility] Start: 02-13-2024 End: 02-13-2024 ambulatory Cornelius Garrison MD Facility:[facility] Start: 02-08-2024 End: 02-08-2024 ambulatory MD Cornelius Garrison Work Phone: [facility] Work Phone: Start: 02-08-2024 End: 02-08-2024 Patient encounter procedure MD Cornelius Garrison Work Phone: [facility] Work Phone: Start: 02-07-2024 Non-patient / Non-visit MD Mala Garrison Work Phone: [facility] Work Phone: Start: 02-01-2024 Non-patient / Non-visit Cornelius Garrison MD Work Phone: [facility] Work Phone: Start: 01-24-2024 End: 01-24-2024 ambulatory MD Cornelius Garrison Work Phone: [facility] Work Phone: Start: 01-24-2024 End: 01-24-2024 Patient encounter procedure MD Cornelius Garrison Work Phone: [facility] Work Phone: Start: 01-24-2024 End: 01-24-2024 Patient encounter procedure MD Cornelius Garrison Work Phone: [facility] Start: 01-24-2024 End: 01-24-2024 ambulatory MD Cornelius Garrison Work Phone: [facility] Work Phone: Start: 01-19-2024 Non-patient / Non-visit MD Mala Garrison Work Phone: [facility] Work Phone: Start: 01-19-2024 Non-patient / Non-visit MD Mala Garrison Work Phone: [facility] Work Phone: Start: 01-09-2024 End: 01-09-2024 ambulatory [facility] Work Phone: Start: 01-09-2024 End: 01-09-2024 Patient encounter procedure [facility] [place] Work Phone: Start: 11-01-2023 End: 11-01-2023 ambulatory [facility] Work Phone: Start: 11-01-2023 End: 11-01-2023 Patient encounter procedure [facility] [place] Work Phone: Start: 10-13-2023 End: 10-13-2023 ambulatory [facility] Work Phone: Start: 10-13-2023 End: 10-13-2023 Patient encounter procedure [facility] Work Phone: Start: 07-31-2023 End: 07-31-2023 ambulatory [facility] Work Phone: Start: 07-31-2023 End: 07-31-2023 Patient encounter procedure [facility] [place] Work Phone: Start: 05-26-2023 Non-patient / Non-visit [facility] Work Phone: Start: 02-01-2022 End: 02-01-2022 Patient encounter procedure Mihaela CALVILLO [facility] Start: 01-13-2022 Encounter for preprocedural laboratory examination DR MIHAELA CALVILLO [facility] Start: 01-12-2022 End: 01-12-[address] CORNELIUS GARRISON Facility:[facility] Start: 01-10-2022 End: 01-11-[address] MIHAELA CALVILLO Facility:[facility] Start: 01-10-2022 End: 01-11-2022 Encounter for preprocedural laboratory examination DR MIHAELA CALVILLO Facility:[facility] Start: 12-22-2021 End: 12-22-2021 Patient encounter procedure Mihaela Miguel Angel NILL [facility] Start: 12-17-2021 End: 12-18-[address] DOCTOR [...] Screening for malign ant neoplasm of colon [facility] Start: 06-10-2025 End: 06-10-2025 Patient encounter procedure 06/10/2025 8:45 AM EST Office Visit [facility] [address] [place] [id number] Geoff Walker, DO [address] [place] [address] [facility] Start: 12-02-2024 Bacteria identified in Urine by Culture [facility] Start: 12-02-2024 Urine culture [facility] Start: 11-03-2024 Bacteria identified in Urine by Culture Urine [facility] Start: 11-03-2024 Urine culture [facility] Start: 06-26-2024 Patient referral [facility] Work Phone: Start: 06-05-2024 End: 06-05-2024 Patient encounter procedure 06/05/2024 2:30 PM EST Office Visit [facility]AIN[facility] KENDALL [address] [place] [address] Geoff Walker, DO [address] [place] [address] Arrived ZAIN[facility] KENDALL Comment on above: Arrived Start: 05-10-2024 Patient referral [facility] Work Phone: Start: 04-05-2024 Patient referral [facility] Work Phone: Start: 04-01-2024 End: 04-01-2024 Patient encounter procedure 04/01/2024 3:00 PM EST Procedure Visit [facility] [address] [place] [address] Kane Parker, [address] [place] [address] Arrived [facility] Comment on above: Arrived Start: 01-24-2024 X-ray of both knees, three views XR knee BI 3V - NOT FOR ER USE [facility] Start: 01-24-2024 XR Knee - bilateral 3 Views [facility] Start: 01-22-2024 Pneumococcal Vaccine : 65+ Years (1 of 1 - PCV) Pneumococcal Vaccine: 65+ Years (1 of 1 - PCV) [facility] Start: 01-10-2024 Patient referral [facility] Work Phone: Start: 12-10-2023 Influenza vaccination Influenza Vacc ine (#1) [facility] Start: 1999 Screening for malign ant neoplasm of breast Mammogram [facility] Start: 1989 Screening for malign ant neoplasm of cervix [facility] Start: 01-22-1980 Screening for malign ant neoplasm of cervix Pap Smear [facility] Start: 1959 Screening for malign ant neoplasm of colon [facility] CT Unspecified body region [facility] CT Unspecified body region [facility] DXA Skeletal system.axial Views for bone density [facility] Patient Education Low back pain in adults [facility] Work Phone: Patient referral [facility] Work Phone: Urine culture [facility] US Lower extremity v ein - right [facility] US Thyroid gland [facility] Immunizations Immunization Date Immunization Notes Care Provider Fa cility 03-11-2024 diphtheria, tetanus toxoids and acellular pertussis vaccine, unspecified formulation Cornelius Garrison MD Work Phone: [facility] 03-29-2021 COVID-19 mRNA, Comirnaty (Pfizer) [facility] 08-11-2020 COVID-19 mRNA, Comirnaty (Pfizer) [facility] 07-21-2020 COVID-19 mRNA, Comirnaty (Pfizer) [facility] 10-07-2018 diphtheria, tetanus toxoids and acellular pertussis vaccine, unspecified formulation [facility] 02-05-2014 tetanus and diphther ia toxoids, adsorbed, preservative free, for adult use (5 Lf of tetanus toxoid and 2 Lf of diphtheria toxoid) [facility] Payers Date Payer Category Payer Private Health Insurance [id number] 2024 Other GENERIC OTHER Nd mber [id number] 2024 Unknown [id number] 2024 Medicare [id number] 2024 Medicare [id number] 2023 Unknown 1959 Self-pay [id number] 1959 Unknown [id number] 2.16.840.1.122523.3.579.2 .593 1959 Unknown [id number] 2.16.840.1.659894.3.579.2 .593 1959 Unknown [id number] 2.16.840.1.474931.3.579.2 .1259 1959 Unknown [id number] 2.16.840.1.848286.3.579.2 .1259 1959 Unknown [id number] 2.16.840.1.816519.3.579.2 .196 1959 Unknown [id number] 2.16.840.1.917283.3.579.2 .196 1959 Unknown [id number] 2.16.840.1.621690.3.579.2 .196 1959 Unknown [id number] 2.16.840.1.209489.3.579.2 .196 1959 Unknown [id number] 2.16.840.1.386962.3.579.2 .196 1959 Unknown [id number] 2.16.840.1.404060.3.579.2 .196 1959 Unknown [id number] 2.16.840.1.990856.3.579.2 .196 1959 Unknown [id number] 2.16.840.1.188962.3.579.2 .196 1959 Unknown [id number] 2.16.840.1.857057.3.579.2 .196 1959 Unknown [id number] 2.16.840.1.378120.3.579.2 .196 1959 Unknown [id number] 2.16.840.1.629577.3.579.2 .196 1959 Unknown [id number] 2.16.840.1.694436.3.579.2 .196 1959 Unknown [id number] 2.16.840.1.203592.3.579.2 .1286 1959 Unknown [id number] 2.16.840.1.134229.3.579.2 .727 1959 Unknown [id number] 2.16.840.1.877244.3.579.2 .727 1959 Unknown [id number] 2.16.840.1.806513.3.579.2 .727 1959 Unknown [id number] 2.16.840.1.733388.3.579.2 .727 1959 Unknown [id number] 2.16.840.1.934088.3.579.2 .727 Private Health Insurance [employer] [facility] P[facility] G [id number] Unknown [id number] Unknown [id number] 2.16.840.1.962590.3.579.2 .593 Unknown MMO [employer] [id number] Social History Date Type Detail Facility Start: 12-22-2021 End: 11-26-2024 Heavy tobacco smoker (finding) [facility] Start: 06-05-2024 Female [facility] Start: 07-31-2023 End: 04-15-2024 Tobacco smoking status NHIS Smoker (finding) [facility] Start: 1960 Sex Assigned At Female [facility] Tobacco smoking stat us AKIS Tobacco smoking consumption unknown [facility] Start: 1960 Sex assigned at Not on file [facility] Start: 06-21-2022 End: 04-15-2024 Sex Female (finding) [facility] Start: 06-05-2024 End: 11-04-2024 Tobacco smoking status AKIS Smokes tobacco daily [facility] History of tobacco use Cigarette Smoker [facility] Start: 06-05-2024 Tobacco use and exposure Smokeless tobacco non-user [facility] Start: 06-05-2024 Alcoholic beverage intake Ex-drinker (finding) [facility] Start: 06-05-2024 History of Social function [facility] Sexual Orientation [facility] [place] Functional Status Date Assessment Result Facility 12-22-2021 N/A [facility] [place] Clinical Notes 01-12-2022 to 11-26-2024 Note Date [...] require a prescription. You can also purchase rwdy-usn-hxrjdgc medicines. Medicines may have nicotine in them [...] and encouragement. Call telephone quitlines, such as 4-311-PUWJ-NOW, reach out to support groups, or work [...] provider. Document Revised: 03/18/2022 Document Reviewed: 03/18/2022 [employer] Patient Education 2023 [employer]. 11/26/2024 09:15:52 Bladder Cancer Bladder Cancer Bladder [...] cells. Follow these instructions at home: Take tvjl-edb-jfodurj and prescription medicines only as told by [...] is important. Where to find more information [employer] [employer] (ACS): cancer.org National Cancer [place] (NCI): cancer.gov Contact a health care provider [...] provider. Document Revised: 03/07/2022 Document Reviewed: 03/07/2022 [employer] Patient Education 2023 [employer]. Follow Up Care 11/13/2024 13:19:08 With:BRIE MCKAY MD, URL Address: When: Unknown [facility] 11-26-2024 Note Patient Education Oncology Bladder [...] Follow these instructions at home: ??? Take cpxt-jwn-ypmwzqt and prescription medicines only as told by [...] important. Where to find more information ??? [employer] (ACS): cancer.org ??? National Cancer [place] (NCI): cancer.gov Contact a health care provider [...] is n (more content not included)... [facility] 09-27-2024 Evaluation note Diagnosis Onset Date Resolution Gastroenteritis acute September 2:23pm Lumbar radiculopathy, chronic acute September 27, 2024 2:23pm [facility] Work Phone: 1(135) 113-922206-20-2025 Evaluation note* Diagnosis Onset Date Resolution Status Admit Date Gastroenteritis acute September 2:23pm Lumbar radiculopathy, chronic acute September 27, 2024 2:23pm Bladder mass acute November 15, 2024 2:27pm [facility] Work Phone: 1(837) 200-619106-20-2025 Evaluation note* Diagnosis Onset Date Resolution Status Admit Date Gastroenteritis acute September 2:23pm Lumbar radiculopathy, chronic acute September 27, 2024 2:23pm Bladder mass acute November 15, 2024 2:27pm Lumbar radiculopathy, chronic acute November 15, 2024 2:27pm Bladder cancer acute November 11:24am Febrile illness acute December 022024 11:24am Left flank pain acute December 022024 11:24am [facility] Work Phone: 1(413) 662-255802-26-2025 History of Present illness Narrative* Geoff Walker, DO - 06/05/2024 2:30 PM EST Subjective Patient ID: HPI 64-year-old female referred for a right thyroid mass. This was found during a workup for something else. Ultrasound was done showing a 2.8 cm inferior based right thyroid mass. FNA was performed which came back as [place] III, Afirma testing was then done showing [...] back in 1 year documented in this encounterS[facility] [id number] Hospital Discharge instructionsAmbulatory Orders* Referral to ENT Time Frame: 05/10/24, Location: [facility] Work Phone: 1(431) 996-652912-23-2024 History of Present illness Narrative* BRENDA Nuñez - 04/01/2024 3:00 PM EST Images from the original note were not included. Reason for Appointment: EMG Patient: Cristine Manley : 1960 EMG Computer: [employer] Referring Physician: Ofelia Arceo PA-C EMG: MANISH knife finisher: Daniel Dougherty RT(R) Office Location: [place] Reason for EMG: c/o numbness/tingling in bilateral [...] nature of the test. documented in this encounterSainte Genevieve [facility] HospitalUxwhezlgzs24-08-2900 Evaluation note* Diagnosis Onset Date Resolution Status Admit Date Lumbar radiculopathy, chronic acute March 29, 2024 8:45am Pain in posterior right lowe r extremity acute March 29 2 024 8:45am Right thyroid nodule acute Dece 2023 8:45am Cigarette nicotine dependenc e with nicotine-induced disorder acute J anuary 2024 3:12pm Encounter for screening for lung cancer acute April 15 3:12pm prison (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 of 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 acute April 15 3:12pm Moderate persistent asthma, uncomplicated acute April 15 3:12pm Lumbar radiculopathy, chronic acute June 26, 2024 8:28am [facility] Work Phone: 1(883) 609-304512-02-2024 Evaluation note* Diagnosis Onset Date Resolution Status [...] for lung cancer acute April 15 3:12pm channel man (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 of 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 acute April 15 3:12pm Moderate persistent asthma, uncomplicated acute April 15 3:12pm [facility] Work Phone: 1([phone]) 485-456611-15-2024 NotePatient Education Materials Name: Cristine Manley Current [...] for continued care. Thank you for choosing [facility] for your care.[facility]10-31-2024 Evaluation note* Diagnosis Onset Date Resolution Status [...] for lung cancer acute April 15 3:12pm prison (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 of 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 acute April 15 3:12pm Moderate persistent asthma, uncomplicated acute April 15 3:12pm [facility] Work Phone: 1(391) 233-204810-16-2024 Evaluation note* Diagnosis Onset Date Resolution Status [...] persistent asthma, uncomplicated acute April 15 3:12pm [facility] Work Phone: 1(720) 141-700710-05-2022 NoteOPERATIVE NOTE OPERATION DATE: 01/12/2022 PREOPERATIVE DIAGNOSIS: [...] of the polyp. CC: Cornelius Garrison M.D.[facility] No data available for this section [facility] [place] Evaluation + Plan note Future Appointments Appointment Date:11/26/2024 08:45:00 AM Scheduled Provider:BRIE MCKAY MD Location:[facility] Appointment Type:URO Office Visit [facility] evaluation + Plan note Future Appointments Appointment Date:03/07/2025 09:00:00 AM Scheduled Provider: Location:[facility] Appointment Type:Urology CALL PAT FT Appointment Date:03/10/2025 01:00:00 PM Scheduled Provider: Location:[facility] Appointment Type:Urology FT [facility] Evaluation note* Diagnosis Onset Date Resolution Status Lumbar radiculopathy, chronic acute [facility] Work Phone: evaluation note* Diagnosis Onset Date Resolution Status Lumbar radiculopathy, chronic acute Headache acute Joint pain acute Tick bite acute [facility] Work Phone: evaluation note* Diagnosis Onset Date Resolution Status Headache acute Joint pain acute Tick bite acute Chronic obstructive pulmonary disease, unspecified acute Lumbar radiculopathy, chronic acute [facility] Work Phone: evaluation note* Diagnosis Onset Date Resolution Status Chronic obstructive pulmonary disease, unspecified acute Lumbar radiculopathy, chronic acute Bilateral knee pain acute COPD exacerbation acute Lumbar pain acute Lumbar radiculopathy, chronic acute Bilateral knee pain acute Primary osteoarthritis of both knees acute [facility] Work Phone: evaluation note* Diagnosis Onset Date Resolution Status Bilateral knee pain acute COPD exacerbation acute Lumbar pain acute Lumbar radiculopathy, chronic acute Bilateral knee pain acute Primary osteoarthritis of both knees acute Menopause acute [facility] Work Phone: Evaluation note* Diagnosis Lumbosacral radiculopathy- Primary Thoracic or lumbosacral neuritis or radiculitis, unspecified Numbness and tingling Disturbance of skin sensation documented in this encounter [facility] HealthcareEvaluation note* Diagnosis Thyroid nodule (CMS/HCC)- Primary Nontoxic uninodular goiter documented in this encounter [facility] Dis[facility] instructions No data available for this section [facility] [place] [facility] Discharge instructionsAmbulatory Orders* Referral to Orthopedics Time Frame: 06/26/24, Location: None [facility] Work Phone: Progress note No data available for this section [facility] [place] Reason for referral (narrative)No reason for referral information availableOhiohealth Work Phone: Remntx for visit Narrative* Other Medical (Routine) - Closed Specialty Diagnoses / Procedures Referred By Contac t Referred To Contact Neurology Diagnoses Neuralgia and neuritis, unspecified Procedures LA NEEDLE EMG EA EXTREMTY W/PARASPINL AREA COMPLETE LA NERVE CONDUCTION STUDIES 9-10 STUDIES Ofelia Arceo PA-C [address] [place] [address] Phone: tel: fax: Cecil Fields MD [address] [place] [address] Phone: tel: fax: Referral ID Status Reason Start Date Expiration Date V isits Requested Visits Authorized [id number] Closed Perform Procedure 03/27/2024 09/23/2024 1 1 [facility] Healthcare Summary Purpose Family History Relationship [...] Back & Knee Pain-HIGH RISK March 8:45am 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 COPD April 15, [...] for lung cancer April 15, 2024 3:12pm prison (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 of inhaled stero ids April [...] Provider Active Start: January 19, 2024 Delvin Cambpell , Attending Provider Active S tart: January [...] 11, 2024 End: March 11, 2024 Scott Dennsi DO Attending Provider Active St art: March [...] 2023 Team Status: Inactive Member Role Status Dmoinick Garrison MD Primary Care Provider Active Start: October 13, 2023 End: October 13, 2023 Brittanie Siu APRN [employer] Attending Provider Act onesimo Start: October 13, [...] Active S tart: January 24, 2024 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 Relationship Specialty Start Date End Date Cornelius Garrison MD [address] [place] [address] PCP - General Family Medicine 03/27/24 Ofelia Arceo MD [address] [address] Referring Physician Internal Medicine 03/27/24 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 Relationship Specialty Start Date End Date Cornelius Garrison MD [address] [place] [address] PCP - General Family Medicine 03/27/24 Ofelia Arceo MD [address] [address] Referring Physician Internal Medicine 03/27/24 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 Relationship Specialty Start Date End Date Cornelius Garrison MD [address] [place] [address] PCP - General Family Medicine 03/27/24 Ofelia Arceo MD [address] [address] Referring Physician Internal Medicine 03/27/24 Geoff Walker DO [address] [place] [address] Otolaryngology 06/05/24 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 Relationship Specialty Start Date End Date Cornelius Garrison MD [address] [facility] [place] [address] PCP - General Family Medicine 03/27/24 Ofelia Arceo MD [address] [place] [address] Referring Physician Internal Medicine 03/27/24 Geoff Walker DO [address] [facility] [address] [place] [address] Otolaryngology 06/05/24 Team Status: Inactive Member Role [...] and content) DATE CREATED AUTHOR 04/01/2022 [facility] DATE CREATED AUTHOR AUTHOR'S ORGANIZ ATION 06/07/2024 [facility] DATE CREATED AUTHOR AUTHOR'S ORGANIZ ATION 08/01/2024 [facility] DATE CREATED AUTHOR AUTHOR'S ORGANIZ ATION 10/02/2024 [facility] DATE CREATED AUTHOR AUTHOR'S ORGANIZ ATION 11/28/2024 [facility] DATE CREATED AUTHOR AUTHOR'S ORGANIZ ATION 12/04/2024 [facility] Goals (unrecognized section and [...] BE BASED ON THE PRIMARY CLINICAL RECORDS. [facility] provides no warranty or guarantee of the accuracy or completeness of information in this document.
[2024-12-11 21:06] VITALS: BP 132/72; PULSE 70; TEMP 36.4; O2SAT 96; BMI 26.0
[2024-12-11] MEDS: 0.9 % SODIUM CHLORIDE 1,000 ML 125 ML IV (22:21)
[2024-12-11] MEDS: ENOXAPARIN SODIUM 40 MG/0.4 ML SYRINGE SUBQ (22:21)
[2024-12-11] MEDS: ONDANSETRON 4 MG RAPDIS TABLET PO (22:21)
[2024-12-11] MEDS: ACETAMINOPHEN 325 MG TABLET 650 MG PO (22:22)
[2024-12-12] VITALS (8 sets, daily range): BP systolic 104–141; BP diastolic 64–93; PULSE 65–89; TEMP 36.8–37.7; O2SAT 91–95
[2024-12-12] MEDS: ACETAMINOPHEN 325 MG TABLET 650 MG PO (04:10)
[2024-12-12] MEDS: ONDANSETRON 4 MG RAPDIS TABLET PO (04:10)
--- NOTE | 2024-12-12 05:35 | ED.FEMALEGU1 ---
HPI - Female Genitourinary General Chief complaint: Urogenital-Female Stated complaint: POSSIBLE UTI Time Seen by Provider: 12/11/24 18:19 Source: patient Mode of arrival: walk-in Limitations: no limitations History of Present Illness HPI Narrative: This 64-year-old female who was recently diagnosed with a bladder tumor and had a tumor resection on November 13 and has been seen since that time for recurrent UTIs was signed out to me at shift change. Patient was pending CT scan at that time. She presents for evaluation of fevers, chills, left flank pain and urinary symptoms. Patient was seen and evaluated. She is currently receiving IV fluids Zofran and Rocephin. Her urine did show blood and white blood cells with leukocyte esterase. It was negative for nitrites. I reviewed her labs. She has an elevated white count at 15.7 with a mildly low hemoglobin of 10.1. Electrolytes are normal with a elevated glucose of 144. I added on lactic acid and blood cultures after seeing the patient who informed me that in the past week with fever 102-103 and started developing flank pain. Her lactic acid was normal at 1.2. She had already received a liter of fluid before this was ordered. CT scan of the abdomen pelvis does not show any acute findings including pyelonephritis. It does show a 5 mm stone in the right kidney but no ureteral stones or hydronephrosis. There was no mention of any bladder abnormality on the CT scan. The patient was unable to recall what antibiotic she had recently been on however we were able to access the pharmacy [facility] and she had been placed on cefdinir by her family physician which she finished earlier in the week. In light of this I discussed with the hospitalist additional antibiotic coverage. We decided on Invanz to add additional coverage to the cephalosporin coverage in light of the fact that we did not have any cultures available. She was admitted for further evaluation and treatment to the hospitalist service. Related Data Home Medications ?Medication ?Instructions ?Recorded ?Confirmed albuterol sulfate 2.5 mg/3 mL 2.5 mg inhalation Q6H PRN 01/19/24 12/11/24 (0.083 %) solution for nebulization shortness of breath or wheezing albuterol sulfate 90 mcg/actuation 2 puff inhalation Q4H PRN 01/19/24 12/11/24 aerosol inhaler shortness of breath or wheezing hydrocodone 5 mg-acetaminophen 325 1 tab PO Q8H 01/19/24 12/11/24 mg tablet tizanidine 4 mg tablet 4 mg PO Q8H PRN muscle spasticity 01/19/24 12/11/24 omeprazole 20 mg capsule,delayed 20 mg PO DAILY 02/01/24 12/11/24 release fluticasone fur. 200 mcg-umeclid 1 inh inhalation DAILY 04/22/24 12/11/24 62.5 mcg-vilant 25 mcg inhalat.powder (Trelegy Ellipta) bupropion HCl 300 mg 24 hr tablet, 300 mg PO DAILY 09/30/24 12/11/24 extended release varenicline tartrate 0.5 mg (11)-1 1 ea PO BID 11/12/24 12/11/24 mg (42) tablets in a dose pack Previous Rx's ?Medication ?Instructions ?Recorded acetaminophen 325 mg tablet 650 mg (2 x 325 mg) PO Q4H PRN 11/13/24 (Tylenol) pain 30 days #180 tabs Allergies Allergy/AdvReac Type Severity Reaction Status Date / Time Sulfa (Sulfonamide Allergy Unknown Unknown Verified 11/12/24 03:34 Antibiotics) levofloxacin (From Levaquin) Allergy Rash Verified 11/12/24 03:34 acetaminophen (From Percocet) AdvReac Intermediate Vomiting Verified 11/12/24 03:34 oxycodone (From Percocet) AdvReac Intermediate Vomiting Verified 11/12/24 03:34 PFSH PFSH Medical History Aspirin long-term use ?Z79.82 - technician terminal and repeater (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 of aspirin (ICD-10) Persistent headaches ?R51.9 - Headache, unspecified (ICD-10) GERD (gastroesophageal reflux disease) ?K21.9 - Gastro-esophageal reflux disease without esophagitis (ICD-10) Gross hematuria ?R31.0 - Gross hematuria (ICD-10) Hematuria ?R31.9 - Hematuria, unspecified (ICD-10) Acute urinary retention ?R33.8 - Other retention of urine (ICD-10) Asthma ?J45.909 - Unspecified asthma, uncomplicated (ICD-10) Peptic ulcer ?K27.9 - Peptic ulcer, site unspecified, unspecified as acute or chronic, without hemorrhage or perforation (ICD-10) Lumbago ?M54.50 - Low back pain, unspecified (ICD-10) Cataract (lens) fragments in eye following cataract surgery ?H59.029 - Cataract (lens) fragments in eye following cataract surgery, unspecified eye (ICD-10) 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 (ICD-10) Surgical History History of detached retina repair ?Z98.890 - Other specified postprocedural states (ICD-10) ?Z86.69 - Personal history of other diseases of the nervous system and sense organs (ICD-10) H/O fine needle aspiration with imaging guidance ?Z98.890 - Other specified postprocedural states (ICD-10) Status post discectomy ?Z98.890 - Other specified postprocedural states (ICD-10) History of bunionectomy ?Z98.890 - Other specified postprocedural states (ICD-10) H/O bilateral oophorectomy ?Z90.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, bilateral (ICD-10) History of tonsillectomy ?Z90.89 - Acquired absence of other organs (ICD-10) Family History Father Cancer Mother Family history of diabetes mellitus Family history of hypertension Brother Family history of hypertension Brother Family history of hypertension Social History Smoking status: Current every day smoker Nicotine containing products detail: 1 pack per day smoker. NO ETOH at all. Highest level of school completed/degree received: some college, no degree Little interest or pleasure in doing things: not at all Feeling down, depressed, or hopeless: not at all Exam Constitutional Vital Signs, click to edit/add: Last Vital Signs Temp 99.8 F 12/12/24 04:00 Pulse 89 12/12/24 04:00 Resp 18 12/12/24 04:00 BP 127/64 12/12/24 04:00 Pulse Ox 91 L 12/12/24 04:00 O2 Del Method Room Air 12/12/24 04:00 Course Vital Signs Vital signs: Vital Signs Temperature 99.1 F 12/11/24 18:09 Pulse Rate 97 H 12/11/24 18:09 Respiratory Rate 18 12/11/24 18:09 Blood Pressure 139/87 12/11/24 18:09 Pulse Oximetry 95 12/11/24 18:09 Oxygen Delivery Method Room Air 12/11/24 18:09 Temperature 99.8 F 12/12/24 04:00 Pulse Rate 89 12/12/24 04:00 Respiratory Rate 18 12/12/24 04:00 Blood Pressure 127/64 12/12/24 04:00 Pulse Oximetry 91 L 12/12/24 04:00 Oxygen Delivery Method Room Air 12/12/24 04:00 MDM - Female Genitourinary Medical Records Attestation: I reviewed the patient's medical records. Lab Data Attestation: I reviewed the patient's lab results. Labs: Lab Results 12/11/24 12/11/24 Range/Units 18:16 18:40 WBC 15.7 H (4.0-11.0) 10^3/uL RBC 3.57 L (4.20-5.40) 10^6/uL Hgb 10.1 L (12.0-16.0) g/dL Hct 31.2 L (36.0-48.0) % MCV 87.4 (81.0-99.0) fL MCH 28.3 (26.7-34.0) pg MCHC 32.4 (29.9-35.2) g/dL RDW 14.2 (11.0-15.0) % Plt Count 529 H (150-450) 10^3/uL MPV 8.9 L (9.5-13.5) fL Neut % (Auto) 78.0 H (43.0-75.0) % Lymph % (Auto) 12.4 L (20.5-60.0) % Branch % (Auto) 8.5 (1.7-12.0) % Eos % (Auto) 0.3 L (0.9-7.0) % Baso % (Auto) 0.3 (0.2-2.0) % Neut # (Auto) 12.2 H (1.4-6.5) 10^3/uL Lymph # (Auto) 1.9 (1.2-3.8) 10^3/uL Branch # (Auto) 1.3 H (0.3-0.8) 10^3/uL Eos # (Auto) 0.1 (0.0-0.7) 10^3/uL Baso # (Auto) 0.1 (0.0-0.1) 10^3/uL Abs Immat Gran (auto) 0.08 H (0.00-0.03) 10^3/uL Imm/Tot Granulo (auto) 0.5 (0.0-0.5) % Sodium 142 (136-145) mmol/L Potassium 3.7 (3.5-5.1) mmol/L Chloride 104 (98-107) mmol/L Carbon Dioxide 27.5 (21.0-32.0) mmol/L Anion Gap 14.2 BUN 13.0 (7.0-18.0) mg/dL Creatinine 0.96 (0.55-1.02) mg/dL Est GFR ( Amer) >60 (>=60 mL/min/1.73m^2) Est GFR (Non-Af Amer) 58 L (>=60 mL/min/1.73m^2) BUN/Creatinine Ratio 13.5 Glucose 144 H (74-106) mg/dL Lactate 1.2 (0.4-2.0) mmol/L Calcium 8.7 (8.5-10.1) mg/dL Total Bilirubin 0.2 (0.2-1.0) mg/dL AST 8 L (15-37) U/L ALT 15 (14-59) U/L Alkaline Phosphatase 90 (46-116) U/L Total Protein 6.5 (6.4-8.2) g/dL Albumin 2.5 L (3.4-5.0) g/dL Globulin 4.0 g/dL Albumin/Globulin Ratio 0.6 Urine Color Lt. yellow (YELLOW) Urine Clarity Clear (CLEAR) Urine pH 6.0 (5.0-9.0) Ur Specific [place] 1.010 (1.005-1.025) Urine Protein Trace (NEG/TRACE) mg/dL Urine Glucose (UA) Negative (NEGATIVE) mg/dL Urine Ketones Negative (NEGATIVE) mg/dL Urine Occult Blood Large A (NEGATIVE) Urine Nitrite Negative (NEGATIVE) Urine Bilirubin Negative (NEGATIVE) Urine Urobilinogen 0.2 (0.2-1.0) EU/dL Ur Leukocyte Esterase Moderate A (NEGATIVE) Urine RBC 0-2 (0-2) #/HPF Urine WBC 20-50 A (NONE SEEN) #/HPF Ur Squamous Epith Cells Few A (NONE/RARE) #/LPF Urine Crystals None seen (None Seen) #/HPF Urine Bacteria Small A (NONE SEEN) #/HPF Urine Casts None seen (NONE SEEN) #/LPF Urine Mucus Small A (NONE SEEN) Ur Culture Indicated? Yes[facility] [place] CT scan - abdomen: Radiologist's impression: ITS Impressions Abdomen/Pelvis CT 12/11/24 18:27 IMPRESSION: No acute findings. No focal inflammatory changes. Diverticulosis. No obstructive uropathy. Impression dictated by: Delvin Burrell M.D. 12/11/2024 7:50 PM Dictation Location: [place] [address] Electronically authenticated by: [id number] Y Date: 12/11/2024 19:50 Discharge Plan Discharge Chief Complaint: Urogenital-Female Clinical Impression: Urinary tract infection, Acute left flank pain Patient Disposition: Admitted as Observation Time of Disposition Decision: 20:15 Condition: Good Discharge Date/Time: 12/11/24 20:56
[2024-12-12 05:53] LABS: Anion Gap 14.0; Blood Urea Nitrogen 9.0 mg/dL (7.0-18.0); Calcium 8.3 mg/dL (8.5-10.1); Carbon Dioxide 27.6 mmol/L (21.0-32.0); Chloride 104 mmol/L (98-107); Estimated GFR (African America >60 (>=60 mL/min/1.73m^2); Estimated GFR (Non-African Ame >60 (>=60 mL/min/1.73m^2); Glucose 99 mg/dL (74-106); Potassium 3.6 mmol/L (3.5-5.1); Sodium 142 mmol/L (136-145)
[2024-12-12 05:54] LABS: Hematocrit 28.9 % (36.0-48.0); Hemoglobin 9.3 g/dL (12.0-16.0); Mean Corpuscular HGB Conc 32.2 g/dL (29.9-35.2); Mean Corpuscular Hemoglobin 28.2 pg (26.7-34.0); Mean Corpuscular Volume 87.6 fL (81.0-99.0); Platelet Count 489 10^3/uL (150-450); Red Blood Count 3.30 10^6/uL (4.20-5.40); White Blood Count 15.5 10^3/uL (4.0-11.0)
--- OUTSIDE RECORDS SUMMARY | 2024-12-12 06:11 | XMS_ITS | CCD ---
Author Organization [facility] CliniSynh Care Team Providers Care Elephant Tamer Name Role Phone CORNELIUS GARRISON Primary Care Physician [phone] MISC, DR [place] Primary Care Unavailable REQUEST, [...] Care Provider DO Alexandro Galvez Attending Provider [phone] Cornelius Garrison MD Primary Care Provider Ofelia Arceo MD Unavailable Cornelius Garrison MD Primary Care Provider [phone] Alexandro Galvez DO Attending Provider [phone] Cornelius Garrison MD Attending Provider [phone] Cornelius Garrison MD Primary Care Provider [phone] Geoff Walker DO Unavailable GEOFF WALKER Attending Unavailable CORNELIUS GARRISON Referring Unavailable KANE PARKER Attending Unavailable OFELIA ARCEO Referring Unavailable Cornelius Garrison MD Attending Provider [phone] Denilson TAVERAS, Duong Wagoner Attending Unavailable Cornelius Garrison MD [facility] Care Gelava stephany Oreilly MD, Duong Wagoner Attending Unavailable Cornelius Garrison MD [facility] Gelava stephany Oreilly MD, Duong Wagoner Attending Unavailable Bladimir TAVERAS, [facility] Unava ilkrystal Garrison MD, [facility] Unava ilable Denilson TAVERAS, Duong Wagoner Attending Unavailable Bladimir TAVERAS, [facility] Unava ilable Denilson TAVERAS, Duong Wagoner Attending Unavailable Bladimir TAVERAS, [facility] Unava stephany Garrison MD, [facility] Adis PA-C, Ofelia Grace Attending Unavailab jass Garrison MD, [facility] Unava ilable Adis PA-C, Ofelia Grace Attending Unavailab jass Garrison MD, [facility] Unava ilable Adis PA-C, Ofelia Grace Attending Unavailab jass Garrison MD, [facility] Unava ilable Alexey Morgan MD Admitting Unavailable [place] PA-C, Sravani Benson Attending U elizabeth Garrison MD, [facility] Unava ilable Adis PA-C, Ofelia Grace Admitting Unavailab le Adis PA-C, Ofelia Grace Attending Unavailab jass Garrison MD, [facility] Unava ilable Adis PA-C, Ofelia Grace Attending Unavailab jass Oreilly MD, Duong Wagoner Attending Unavailable Bladimir TAVERAS, [facility] Unava ilable CORNELIUS GARRISON Primary Care Unavailable TYRONE HAMM Attending Unavailable Bladimir TAVERAS, Cornelius Ward Primary Care Provider Cornelius Garrison MD Attending Provider [phone] Vera Hdez CMA Attending Provider Unavailtomas Oleary MD, Carlin Waldrop Attending Provider Delvin Campbell DO Attending Provider [phone] Gianni France DO Attending Provider Brie Mckay [...] Unavail able Nkansah-Amankra, Brie Attending Unavail able Bladiimr, Cornelius E Attending Unavailable Bladiimr, Cornelius E Admitting Unavailable Garrison, Cornelius E Attending Unavailable Bladimir, Cornelius E Admitting Unavailable Bladimir, Cornelius E Primary Care Unavailable Allergies Allergy Classification Reported Allergen(s) Allergy Type Date of Onset Reaction(s) Facility (6 sources) Acetaminophen / oxyCODONE; Translations: [acetaminophen-oxy codone] Drug Allergy Nausea (finding) [facility] [place] (9 sources) Alendronate; Translations: [alendronate] Drug Allergy 03-29-20 Muscle pain (finding) [facility] [place] (20 sources) Clarithromycin; Translations: [clarithromycin] Drug Allergy 07-31-19 24 Unknown (qualifier value) [facility] [place] (20 sources) levoFLOXacin; Translations: [levofloxacin] Drug Allergy 07-31-19 24 Eruption of skin (disorder) [facility] [place] (7 sources) Sulfonamides (Antibiotic); Translations: [sulfa drugs] Drug allergy Unknown (qualifier value) [facility] [place] (1 source) Acetaminophen / oxyCODONE Drug Allergy 03-25-20 16 [facility] (1 source) Alendronate Drug Allergy 03-18-20 16 [facility] (1 source) Clarithromycin Drug Allergy 03-25-20 16 [facility] (1 source) levoFLOXacin Drug Allergy 03-25-20 16 [facility] (1 source) Quinolones (Antibiotic) Drug allergy (disorder) 03-25-20 16 [facility] (1 source) Sulfonamides (Antibiotic) Drug allergy (disorder) 05-01-19 14 [facility] (1 source) Acetaminophen Drug Allergy 07-31-19 24 [facility] (17 sources) Alendronate Drug Allergy 07-31-19 24 [facility] (17 sources) oxyCODONE Drug Allergy 07-31-19 24 [facility] (18 sources) Sulfonamides (Antibiotic); Translations: [SULFA (SULFONAMIDE ANTIBIOTICS)] Allergy to substance 07-31-19 Comment:as a young child, pt. cannot recall reaction [facility] (17 sources) Biaxin XL *MACROLIDES* Allergy to substance 07-28-19 [facility] (4 sources) Acetaminophen / oxyCODONE; Translations: [OXYCODONE-ACETAMI NOPHEN] Drug Allergy 06-05-19 Nausea Only [facility] (3 sources) Clarithromycin Allergy to substance 03-29-20 [facility] (3 sources) Lactobacillus acidophilus Drug Allergy 06-05-19 [facility] (3 sources) Quinolones (Antibiotic) Drug Intolerance 03-11-20 10 Rash [facility] (3 sources) Sulfonamides (Antibiotic) Drug Intolerance 03-11-20 10 [facility] (1 source) Ciprofloxacin; Translations: [Cipro] Drug Allergy [facility] (1 source) symbalta; Translations: [symbalta] Propensity to adverse reactions to drug (disorder) [facility] (6 sources) fluoroquinolone antibiotics Allergy to substance 10-03-19 [facility] Medications Current Medications Medication Drug Class(es) [...] tablet by mouth at bedtime HYDROcodone-acetaminophen ([place]) 5-325 MG tablet Take 1 tablet by [...] Rinse after use Start: 03-29-2024 End: 04-15-2024 Zocvpgccrfy-Ezalbnnzi-Okmeew er (Trelegy Ellipta) 200-62.5-25 mcg blister with device Discontinued 1 INH INHALATION Daily 60 March 29, 2024 10:38am April 15, 2024 4:41pm Rinse after use Start: 03-29-2024 End: 04-15-2024 Hgnqnrsvndn-Qyygnopqr-Zgcxpr er (Trelegy Ellipta) 200-62.5-25 mcg blister with device Discontinued 1 INH INHALATION Daily 60 March 29, 2024 9:38am April 15, 2024 3:41pm Rinse after use Start: 03-11-2024 End: 03-29-2024 Yejwtbszgim-Exrbrxkdj-Nmqkvv er (Trelegy Ellipta) 200-62.5-25 mcg blister with device Discontinued 1 INH INHALATION Daily 180 March 11, 2024 1:00am March 29, 2024 10:38am Rinse after use Start: 03-11-2024 End: 03-29-2024 Ovlmjuyzewr-Gqqcrgync-Tdabxc er (Trelegy Ellipta) 200-62.5-25 mcg blister with device Discontinued 1 INH INHALATION Daily 180 March 11, 2024 12:00am March 29, 2024 9:38am Rinse after use nystatin 012398 unt/ml oral suspension (1 source) Polyene Antifungal [...] March 29, 2024 9:04am 60 actuat tiotropium 0.07878 mg/actuat inhalation spray (20 sources) Anticholinergic Start: 02-08-2024 End: 03-11-2024 take 1 puff(s) by inhalation once daily in the morning Tiotropium Tuttle (Spiriva Respimat) 1.25 mcg/actuation mist Discontinued 2 [...] Other aftercare (1 source) 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 PERFORMED BY: [facility] [address] [place] [address] PATHOLOGIST LENS GENERATOR KATHLEEN Woodard [facility] Comment on above: Performed By: #### C UU #### [address] Urine cultureOrdered By: Mala Garrison on 12-02-2024 Bacteria identified Cx Nom (U) Pseudomonas aeruginosa Abnormal [facility] Ambulatory Visit Summaryon 0 11-26-2024 [...] use t (more content not included)... Normal [facility] Urology Office/Clinic Noteon 11-26-2024 Urology Office/Clinic [...] with voice recognition artificial intelligence software, specifically Autotether, Contorion and or Revision3. Substitutions may have occurred due to the [...] leiomyoma [diagnosis of exclusion]. Pt presented to [facility] ER 11/13/24 with gross hematuria of 11-day duration. Severe clot passage. Three-way Lau placed with CBI initiated. CT AP wo con 11/12/24 [facility] - There are areas of nodular [...] GERD (gastroesophagea (more content not included)... Normal [facility] Comment on [...] BRIE MCKAY MD Where: [facility] [address], [address] [place] [id number]- Medications What How Much When Instructions Unchanged [...] signed up for this yet, please contact [employer] at [phone] to get signed up today. Language Information Language assistance services are available as needed. Normal [facility] Activated partial thrombopla stin time (aPTT) in platelet poor plasma by coagulation aOrdered By: Gianni France on 11-13-2024 aPTT Coag (PPP) [Time] 25.6 s 22.3-36.2 [facility] Basophils Auto (Bld) [#/Vol] Ordered By: Gianni France on 11-13-2024 Basophils (Bld) [#/Vol] 0.1 10 3/uL 0.0-0.1 [facility] Basophils/100 WBC Auto (Bld) Ordered By: Gianni France on 11-13-2024 Basophils/100 WBC (Bld) 0.6 % 0.2-2.0 [facility] Eosinophils/100 WBC Auto (Bl d)Ordered By: Gianni France on 11-13-2024 Eosinophils/100 WBC (Bld) 2.1 % 0.9-7.0 [facility] Erythrocyte distribution wid th Auto (RBC) [Ratio]Ordered By: Gianni France on 11-13-2024 Erythrocyte distribution width (RBC) [Ratio] 13.8 % 11.0-15.0 [facility] Estimated glomerular filtrat ion rate (GFR) non- AmericanOrdered By: Gianni France on 11-13-2024 GFR/1.73 sq M.predicted among non-blacks MDRD (S/P/Bld) [Vol rate/Area] mL/min/{1.73_m2} >=60 mL/min/1.73m 2 [facility] Hematocrit Auto (Bld) [Volum e fraction]Ordered By: Gianni France on 11-13-2024 Hematocrit (Bld) [Volume fraction] 33.7 % Low 36.0-48.0 [facility] Hemoglobin [Mass/volume] in BloodOrdered By: Gianni France on 11-13-2024 Hemoglobin (Bld) [Mass/Vol] 11.0 g/dL Low 12.0-16.0 [facility] INR in Platelet poor plasma by Coagulation assayOrdered By: Gianni France on 11-13-2024 INR Coag (PPP) [Relative time] 0.98 {INR} [facility] Comment on above: DESIRED INR:2.0-3.0 CONDITIONS NOT LISTED BELOW2.5-3.5 FOR PROSTHETIC HEART VALVE REPLACEMENT2.5-3.5 RECURRENT THROMBOSIS Dominick 11-13-2024 L ------ Specimen: [id number] Received: 11/13/24 Status: OMAR Aceves Num: [id number] Spec Type: Surgical Subm Dr: Brie Mckay MD Tissues: A Urinary Bladder - TUR (BLADDER TUMOR) Procedures: HE/6, Gross/Micro L5 Age/ Patient Sex Location Account Attending Physician Cristine Manley 64/F [facility] [id number] Brie Mckay MD SPEC NUM: [id number] RECD: 11/13/24 STATUS: OMAR ACEVES NUM: [id number] TORI: 11/13/24 [facility] DR: Brie Mckay MD ENTERED: 11/13/24 [facility] DR: Tracy Matta SPEC TYPE: Surgical DEPT: [facility] ENTERED BY: [id number] RECV BY: [id number] ORDERED: HE/6, Gross/Micro L5 ORDERED: HE/6, Gross/Micro [...] and entirely submitted in A1?A6. (6, ns, [id number] A)JG Microscopic Description Microscopic examination is performed. Specimen: [id number] Received: 11/13/24 Status: OMAR Aceves Num: [id number] Spec Type: Surgical Subm Dr: Brie Mckay MD Tissues: A Urinary Bladder - TUR (BLADDER TUMOR) Procedures: , Gross/Micro L5 Patient: Cristine Manley [id number] (Continued) Specimen: [id number] Received: 11/13/24 (Continued) Signed (signature on file) Gianni Hutchinson MD 11/14/24 1303 Specimen: [id number] Received: 11/13/24 Status: OMRA Aceves Num: [id number] Spec Type: Surgical Subm Dr: Brie Mckay MD Tissues: A Urinary Bladder - TUR (BLADDER TUMOR) Procedures: /, Gross/Micro L5 Patient: Cristine Manley [id number] (Continued) Specimen: [id number] Received: 11/13/24 (Continued) CPT Codes 87394 Specimen: [id number] Received: 11/13/24-1325 Status: OMAR Aceves Num: [id number] Spec Type: Surgical Subm Dr: Brie Mckay MD Tissues: A Urinary Bladder - TUR (BLADDER TUMOR) Procedures: HE/, Gross/Micro L5 Patient: Cristine Manley [id number] (Continued) Signed (signature on file) Gianni Hutchinson MD 11/14/24 1301 Normal [facility] Laboratory - Chemistry and C hemistry - challengeOrdered By: Gianni France on 11-13-2024 Calcium [Mass/Vol] 8.9 mg/dL 8.5-10.1 [facility] Chloride [Moles/Vol] 108 mmol/L High 98-107 [facility] CO2 [Moles/Vol] 28.2 mmol/L 21.0-32.0 [facility] Creatinine [Mass/Vol] 0.65 mg/dL 0.55-1.02 [facility] GFR/1.73 sq M.predicted MDRD (S/P/Bld) [Vol rate/Area] mL/min/{1.73_m2} >=60 mL/min/1.73m 2 [facility] Glucose [Mass/Vol] 98 mg/dL 74-106 [facility] Magnesium [Mass/Vol] 2.0 mg/dL 1.8-2.4 [facility] Potassium [Moles/Vol] 4.1 mmol/L 3.5-5.1 [facility] Sodium [Moles/Vol] 143 mmol/L 136-145 [facility] Urea nitrogen [Mass/Vol] 21.0 mg/dL High 7.0-18.0 [facility] Urea nitrogen/Creatinine [Mass ratio] 32.3 mg/mg [facility] Laboratory - Hematology and Cell countsOrdered By: Gianni France on 11-13-2024 Immature granulocytes/100 WBC (Bld) 0.3 % 0.0-0.5 [facility] Leukocytes [#/volume] correc hsant for nucleated erythrocytes in Blood by Automated counOrdered By: Gianni France on 11-13-2024 WBC corrected for nucl RBC Auto (Bld) [#/Vol] 9.8 10 3/uL 4.0-11.0 [facility] Lymphocytes Auto (Bld) [#/Vo l]Ordered By: Gianni France on 11-13-2024 Lymphocytes (Bld) [#/Vol] 2.9 10 3/uL 1.2-3.8 [facility] Lymphocytes/100 WBC Auto (Bl d)Ordered By: Gianni France on 11-13-2024 Lymphocytes/100 WBC (Bld) 29.7 % 20.5-60.0 [facility] MCH Auto (RBC) [Entitic mass ]Ordered By: Gianni France on 11-13-2024 MCH (RBC) [Entitic mass] 29.5 pg 26.7-34.0 [facility] MCHC Auto (RBC) [Mass/Vol]Or dered By: Gianni France on 11-13-2024 MCHC (RBC) [Mass/Vol] 32.6 g/dL 29.9-35.2 [facility] MCV Auto (RBC) [Entitic vol] Ordered By: Gianni France on 11-13-2024 MCV (RBC) [Entitic vol] 90.3 fL 81.0-99.0 [facility] Monocytes Auto (Bld) [#/Vol] Ordered By: Gianni France on 11-13-2024 Monocytes (Bld) [#/Vol] 0.6 10 3/uL 0.3-0.8 [facility] Monocytes/100 WBC Auto (Bld) Ordered By: Gianni France on 11-13-2024 Monocytes/100 WBC (Bld) 6.4 % 1.7-12.0 [facility] Neutrophils Auto (Bld) [#/Vo l]Ordered By: Gianni France on 11-13-2024 Neutrophils (Bld) [#/Vol] 6.0 10 3/uL 1.4-6.5 [facility] Neutrophils/100 WBC Auto (Bl d)Ordered By: Gianni France on 11-13-2024 Neutrophils/100 WBC (Bld) 60.9 % 43.0-75.0 [facility] No Panel InformationOrdered By: Gianni France on 11-13-2024 Eosinophils # (Auto) 0.2 10 3/uL 0.0-0.7 [facility] Immature Granulocyte # (Auto) 0.03 10 3/uL 0.00-0.03 [facility] Platelet mean volume Auto (B ld) [Entitic vol]Ordered By: Gianni France on 11-13-2024 Platelet mean volume (Bld) [Entitic vol] 9.8 fL 9.5-13.5 [facility] Platelets Auto (Bld) [#/Vol] Ordered By: Gianni France on 11-13-2024 Platelets (Bld) [#/Vol] 295 10 3/uL 150-450 [facility] Prothrombin time (PT)Ordered By: Gianni France on 11-13-2024 PT Coag (PPP) [Time] 10.4 s 9.0-11.6 [facility] RBC Auto (Bld) [#/Vol]Ordere d By: Gianni France on 11-13-2024 RBC (Bld) [#/Vol] 3.73 10 6/uL Low 4.20-5.40 [facility] Serum or plasma anion gap de terminationOrdered By: Gianni France on 11-13-2024 Anion gap [Moles/Vol] 10.9 mmol/L [facility] Basophils Auto (Bld) [#/Vol] Ordered By: Delvin Campbell on 11-12-2024 Basophils (Bld) [#/Vol] 0.1 10 3/uL 0.0-0.1 [facility] Basophils/100 WBC Auto (Bld) Ordered By: Delvin Campbell on 11-12-2024 Basophils/100 WBC (Bld) 0.8 % 0.2-2.0 [facility] Eosinophils/100 WBC Auto (Bl d)Ordered By: Delvin Campbell on 11-12-2024 Eosinophils/100 WBC (Bld) 3.3 % 0.9-7.0 [facility] Erythrocyte distribution wid th Auto (RBC) [Ratio]Ordered By: Delvin Campbell on 11-12-2024 Erythrocyte distribution width (RBC) [Ratio] 13.7 % 11.0-15.0 [facility] Estimated glomerular filtrat ion rate (GFR) non- AmericanOrdered By: Delvin Campbell on 11-12-2024 GFR/1.73 sq M.predicted among non-blacks MDRD (S/P/Bld) [Vol rate/Area] mL/min/{1.73_m2} >=60 mL/min/1.73m 2 [facility] Hematocrit Auto (Bld) [Volum e fraction]Ordered By: Delvin Campbell on 11-12-2024 Hematocrit (Bld) [Volume fraction] 35.5 % Low 36.0-48.0 [facility] Hemoglobin [Mass/volume] in BloodOrdered By: Delvin Campbell on 11-12-2024 Hemoglobin (Bld) [Mass/Vol] 11.4 g/dL Low 12.0-16.0 [facility] Laboratory - Chemistry and C hemistry - challengeOrdered By: Delvin Campbell on 11-12-2024 Calcium [Mass/Vol] 9.9 mg/dL 8.5-10.1 [facility] Chloride [Moles/Vol] 105 mmol/L 98-107 [facility] CO2 [Moles/Vol] 29.6 mmol/L 21.0-32.0 [facility] Creatinine [Mass/Vol] 0.82 mg/dL 0.55-1.02 [facility] GFR/1.73 sq M.predicted MDRD (S/P/Bld) [Vol rate/Area] mL/min/{1.73_m2} >=60 mL/min/1.73m 2 [facility] Glucose [Mass/Vol] 107 mg/dL High 74-106 [facility] Potassium [Moles/Vol] 3.5 mmol/L 3.5-5.1 [facility] Sodium [Moles/Vol] 141 mmol/L 136-145 [facility] Urea nitrogen [Mass/Vol] 20.0 mg/dL High 7.0-18.0 [facility] Urea nitrogen/Creatinine [Mass ratio] 24.4 mg/mg [facility] Bilirubin Ql (U) Negative NEGATIVE [facility] Glucose (U) [Mass/Vol] Negative NEGATIVE [facility] Ketones Ql (U) TRACE mg/dL Abnormal NEGATIVE [facility] pH (U) 7.0 [pH] 5.0-9.0 [facility] Specific gravity (U) [Rel density] 1.020 1.005-1.025 [facility] Urobilinogen Qn (U) 1.0 {Zoraida'U}/dL 0.2-1.0 [facility] Laboratory - Hematology and Cell countsOrdered By: Delvin Campbell on 11-12-2024 Immature granulocytes/100 WBC (Bld) 0.3 % 0.0-0.5 [facility] Laboratory - Specimen inform ationOrdered By: Delvin Campbell on 11-12-2024 Appearance (U) CLEAR CLEAR [facility] Color (U) DK. RED YELLOW [facility] Laboratory - UrinalysisOrder ed By: Delvin Campbell on 11-12-2024 Leukocyte esterase Test strip Ql (U) TRACE Abnormal NEGATIVE [facility] Mucus Ql (Urine sed) NONE SEEN NONE SEEN [facility] Nitrite Ql (U) Positive Abnormal NEGATIVE [facility] Protein Ql (U) >=300 mg/dL Abnormal NEG/TRACE [facility] Leukocytes [#/volume] correc shant for nucleated erythrocytes in Blood by Automated counOrdered By: Delvin Campbell on 11-12-2024 WBC corrected for nucl RBC Auto (Bld) [#/Vol] 7.7 10 3/uL 4.0-11.0 [facility] Lymphocytes Auto (Bld) [#/Vo l]Ordered By: Delvin Campbell on 11-12-2024 Lymphocytes (Bld) [#/Vol] 2.5 10 3/uL 1.2-3.8 [facility] Lymphocytes/100 WBC Auto (Bl d)Ordered By: Delvin Campbell on 11-12-2024 Lymphocytes/100 WBC (Bld) 32.9 % 20.5-60.0 [facility] MCH Auto (RBC) [Entitic mass ]Ordered By: Delvin Campbell on 11-12-2024 MCH (RBC) [Entitic mass] 29.2 pg 26.7-34.0 [facility] MCHC Auto (RBC) [Mass/Vol]Or dered By: Delvin Campbell on 11-12-2024 MCHC (RBC) [Mass/Vol] 32.1 g/dL 29.9-35.2 [facility] MCV Auto (RBC) [Entitic vol] Ordered By: Delvin Campbell on 11-12-2024 MCV (RBC) [Entitic vol] 91.0 fL 81.0-99.0 [facility] Monocytes Auto (Bld) [#/Vol] Ordered By: Delvin Campbell on 11-12-2024 Monocytes (Bld) [#/Vol] 0.6 10 3/uL 0.3-0.8 [facility] Monocytes/100 WBC Auto (Bld) Ordered By: Delvin Campbell on 11-12-2024 Monocytes/100 WBC (Bld) 8.1 % 1.7-12.0 [facility] Neutrophils Auto (Bld) [#/Vo l]Ordered By: Delvin Campbell on 11-12-2024 Neutrophils (Bld) [#/Vol] 4.2 10 3/uL 1.4-6.5 [facility] Neutrophils/100 WBC Auto (Bl d)Ordered By: Delvin Campbell on 11-12-2024 Neutrophils/100 WBC (Bld) 54.6 % 43.0-75.0 [facility] No Panel InformationOrdered By: Delvin Campbell on 11-12-2024 Eosinophils # (Auto) 0.3 10 3/uL 0.0-0.7 [facility] Immature Granulocyte # (Auto) 0.02 10 3/uL 0.00-0.03 [facility] Urine Bacteria NONE SEEN #/HPF NONE SEEN [facility] Urine Culture Reflexed NO [facility] Urine Occult Blood LARGE Abnormal NEGATIVE [facility] Urine Other Casts NONE SEEN #/LPF NONE SEEN [facility] Urine Other Crystals None Seen #/HPF None Seen [facility] Urine RBC 50-75 #/HPF Abnormal 0-2 [facility] Urine Squamous Epithelial Cells NONE SEEN #/LPF NONE/RARE [facility] Urine WBC 0-2 #/HPF Abnormal NONE SEEN [facility] Platelet mean volume Auto (B ld) [Entitic vol]Ordered By: Delvin Campbell on 11-12-2024 Platelet mean volume (Bld) [Entitic vol] 9.5 fL 9.5-13.5 [facility] Platelets Auto (Bld) [#/Vol] Ordered By: Delvin Campbell on 11-12-2024 Platelets (Bld) [#/Vol] 301 10 3/uL 150-450 [facility] RBC Auto (Bld) [#/Vol]Ordere d By: Delvin Campbell on 11-12-2024 RBC (Bld) [#/Vol] 3.90 10 6/uL Low 4.20-5.40 [facility] Serum or plasma anion gap de terminationOrdered By: Delvin Campbell on 11-12-2024 Anion gap [Moles/Vol] 9.9 mmol/L [facility] Laboratory - Chemistry and C hemistry - challengeOrdered By: Carlin Oleary on 11-03-2024 Bilirubin Ql (U) COLOR INTERFERENCE Abnormal NEGATIVE [facility] Ketones Ql (U) COLOR INTERFERENCE mg/dL Abnormal NEGATIV E [facility] Specific gravity (U) [Rel density] 1.015 1.005-1.025 [facility] Laboratory - Specimen inform ationOrdered By: Carlin Oleary on 11-03-2024 Appearance (U) CLOUDY Abnormal CLEAR [facility] Color (U) DK. RED YELLOW [facility] Laboratory - UrinalysisOrder ed By: Carlin Oleary on 11-03-2024 Leukocyte esterase Test strip Ql (U) COLOR INTERFERENCE Abnormal NEGATIVE [facility] Mucus Ql (Urine sed) NONE SEEN NONE SEEN [facility] Nitrite Ql (U) COLOR INTERFERENCE Abnormal NEGATIVE [facility] Protein Ql (U) COLOR INTERFERENCE mg/dL Abnormal NEG/TRA CE [facility] No Panel InformationOrdered By: Carlin Oleary on 11-03-2024 Urine Bacteria TRACE #/HPF Abnormal NONE SEEN [facility] Urine Culture Reflexed YES-[facility] Urine Glucose (UA) COLOR INTERFERENCE mg/dL Abnormal NEG ATIVE [facility] Urine Occult Blood COLOR INTERFERENCE Abnormal NEGATIVE [facility] Urine Other Casts NONE SEEN #/LPF NONE SEEN [facility] Urine Other Crystals None Seen #/HPF None Seen [facility] Urine pH COLOR INTERFERENCE Abnormal 5.0-9.0 [facility] Urine RBC >100 #/HPF Abnormal 0-2 [facility] Urine Squamous Epithelial Cells NONE SEEN #/LPF NONE/RARE [facility] Urine Urobilinogen COLOR INTERFERENCE EU/dL Abnormal 0.2 -1.0 [facility] Urine WBC 20-50 #/HPF Abnormal NONE SEEN [facility] Urine Cultureon 11-03-2024 Bacteria identified Cx Nom (U) >100,000 colonies/ml mixed bacterial skin contaminants 2 Days PERFORMED BY: [address] [address] PATHOLOGIST LENS GENERATOR KATHLEEN AGUAYO M.D. Normal [facility] Comment on above: Performed By: #### C UU #### [facility] [address] [place], [place] [id number] [facility] Urine cultureOrdered By: Mala Garrison on 11-03-2024 Bacteria identified Cx Nom (U) 2 Days [facility] C DIFFICILE BY PCRon 025 [id number] NAP1 Negative Normal Presumptive Negative [facility] Comment on above: Result Comment: Batool cerrato methodology is nucleic acid amplification by real-time PCR for detection of C. difficile toxin gene sequences performed on [employer]. Performed By: #### C DFPCR #### [facility] ([facility]) [address] [place] [address] VIR TOXIGENIC C DIFF Negative Normal Negative [facility] Comment on above: Performed By: #### C DFPCR #### [facility] ([facility]) [address] [place] [address] VIR CBC WITH AUTO DIFFERENTIALon 10-01-2024 BASOPHILS ABSOLUTE COUNT (10*3/UL) BY AUTOMATED COUNT 0.1 10*3/uL Normal 0.0-0.2 [facility] Comment on above: Performed By: #### C BCA #### [facility] ([address] [address] VIR BASOPHILS RELATIVE PERCENT BY AUTOMATED COUNT 0.7 % Normal [facility] Comment on above: Performed By: #### C BCA #### [facility] ([facility]) [address] [place] [address] VIR CELLAVISION DIFFERENTIAL TYPE AUTOMATED DIFFERENTIAL Normal [facility] Comment on above: Performed By: #### C BCA #### [facility] ([address] [address] VIR Eosinophils (Bld) [#/Vol] 0.1 10*3/uL Normal 0.0-0.4 [facility] Comment on above: Performed By: #### C BCA #### [facility] ([address] [address] VIR EOSINOPHILS RELATIVE PERCENT BY AUTOMATED COUNT 1.2 % Normal [facility] Comment on above: Performed By: #### C BCA #### [facility] ([address] [place] [address] VIR Erythrocyte distribution width (RBC) [Ratio] 13.2 % Normal 11.5-15 [facility] Comment on above: Performed By: #### C BCA #### [facility] ([address] [address] VIR Hematocrit (Bld) [Volume fraction] 41.7 % Normal 35-47 [facility] Comment on above: Performed By: #### C BCA #### [facility] ([address] [address] VIR Hemoglobin (Bld) [Mass/Vol] 14.1 g/dL Normal 11.7-15.5 [facility] Comment on above: Performed By: #### C BCA #### [facility] ([address] [address] VIR LYMPHOCYTES ABSOLUTE COUNT (10*3/UL) BY AUTOMATED COUNT 1.7 10*3/uL Normal 1.0-3.5 [facility] Comment on above: Performed By: #### C BCA #### [facility] ([address] [address] VIR LYMPHOCYTES RELATIVE PERCENT BY AUTOMATED COUNT 18.1 % Normal [facility] Comment on above: Performed By: #### C BCA #### [facility] ([address] [address] VIR MCH (RBC) [Entitic mass] 29.8 pg Normal 27-34 [facility] Comment on above: Performed By: #### C BCA #### [facility] ([address] [address] VIR MCHC (RBC) [Mass/Vol] 33.9 g/dL Normal 32-36 [facility] Comment on above: Performed By: #### C BCA #### [facility] ([address] [address] VIR MCV (RBC) [Entitic vol] 88 fL Normal 80-100 [facility] Comment on above: Performed By: #### C BCA #### [facility] ([address] [address] VIR MONOCYTES ABSOLUTE COUNT (10*3/UL) BY AUTOMATED COUNT 1.3 10*3/uL High 0.0-0.9 [facility] Comment on above: Performed By: #### C BCA #### [facility] ([address] [address] VIR MONOCYTES RELATIVE PERCENT BY AUTOMATED COUNT 14.3 % Normal [facility] Comment on above: Performed By: #### C BCA #### [facility] ([address] [address] VIR NEUTROPHILS ABSOLUTE COUNT BY AUTOMATED COUNT 6.1 10*3/uL Normal 1.5-6.6 [facility] Comment on above: Performed By: #### C BCA #### [facility] ([address] [address] VIR NEUTROPHILS RELATIVE PERCENT BY AUTOMATED COUNT 65.7 % Normal [facility] Comment on above: Performed By: #### C BCA #### [facility] ([address] [address] VIR Platelet mean volume (Bld) [Entitic vol] 7.7 fL Normal 7-12 [facility] Comment on above: Performed By: #### C BCA #### [facility] ([address] [address] VIR Platelets (Bld) [#/Vol] 376 10*3/uL Normal 150-450 [facility] Comment on above: Performed By: #### C BCA #### [facility] ([facility]) [address] [place] [address] VIR RBC COUNT 4.74 X10E12/L Normal 3.8-5.2 [facility] Comment on above: Performed By: #### C BCA #### [facility] ([address] [place] [address] VIR WBC (Bld) [#/Vol] 9.3 10*3/uL Normal 4-11 [facility] Comment on above: Performed By: #### C BCA #### [facility] ([facility]) [address] [place] [address] [place] [address] VIR COMPREHENSIVE METABOLIC PANE Dominick 10-01-2024 Albumin [Mass/Vol] 3.5 g/dL Normal 3.2-5.3 [facility] Comment on above: Performed By: #### C MP #### [facility] ([address] [place] [address] VIR ALP [Catalytic activity/Vol] 69 U/L Normal 39-130 [facility] Comment on above: Performed By: #### C MP #### [facility] ([address] [place] [address] VIR ALT [Catalytic activity/Vol] 20 U/L Normal <=31 [facility] Comment on above: Performed By: #### C MP #### [facility] ([address] [place] [address] VIR Anion gap [Moles/Vol] 10 mmol/L Normal 5-15 [facility] Comment on above: Performed By: #### C MP #### [facility] ([facility]) [address] [place], [place] [address] [address] VIR AST [Catalytic activity/Vol] 14 U/L Normal <=41 [facility] Comment on above: Performed By: #### C MP #### [facility] ([address] [place] [address] VIR Bilirubin [Mass/Vol] 0.4 mg/dL Normal 0.3-1.2 [facility] Comment on above: Performed By: #### C MP #### [facility] ([address] [place] [address] VIR Calcium [Mass/Vol] 8.9 mg/dL Normal 8.5-10.5 [facility] Comment on above: Performed By: #### C MP #### [facility] ([address] [place] [address] VIR Chloride [Moles/Vol] 102 mmol/L Normal 98-109 [facility] Comment on above: Performed By: #### C MP #### [facility] ([address] [place] [address] VIR CO2 [Moles/Vol] 25 mmol/L Normal 22-32 [facility] Comment on above: Performed By: #### C MP #### [facility] ([address] [place] [address] VIR Creatinine [Mass/Vol] 0.89 mg/dL Normal 0.40-1.00 [facility] Comment on above: Result Comment: METH OD TRACEABLE TO IDMS STANDARD Performed By: #### C MP #### [facility] ([address] [place] [address] VIR GFR/1.73 sq M.predicted among non-blacks MDRD (S/P/Bld) [Vol rate/Area] 72 mL/min/{1.73_m2} Normal >=60 [facility] Comment on above: Result Comment: eGFR not reported due to non-numeric value for Creatinine. Reported eGFR is based on the CKD-EPI 2020 equation that does not use a race coefficient. Performed By: #### C MP #### [facility] ([address] [place] [address] VIR Glucose [Mass/Vol] 111 mg/dL High 65-99 [facility] Comment on above: Performed By: #### C MP #### [facility] ([facility]) [address] [place] [address] [place] [address] VIR Potassium [Moles/Vol] 3.4 mmol/L Low 3.5-5.0 [facility] Comment on above: Performed By: #### C MP #### [facility] ([facility]) [address] [place] [address] [place] [address] VIR Protein [Mass/Vol] 6.6 g/dL Normal 6.0-8.0 [facility] Comment on above: Performed By: #### C MP #### [facility] ([address] [place] [address] VIR Sodium [Moles/Vol] 137 mmol/L Normal 134-146 [facility] Comment on above: Performed By: #### C MP #### [facility] ([address] [place] [address] VIR Urea nitrogen [Mass/Vol] 20 mg/dL Normal 5-27 [facility] Comment on above: Performed By: #### C MP #### [facility] ([address] [place] [address] ABDOMEN AND PELVIS W CONT [...] Cordova MD on 10/01/2024 8:37 AM Normal [facility] GI PANEL STOOL PATHOGEN PANE Dominick 10-01-2024 ADENOVIRUS Not detected Normal Not Detected [facility] Comment on above: Performed By: #### G IP #### [facility] ([facility]) [address] [place] [address] VIR AGGREGATIVE E COLI Not detected Normal Not Detected [facility] Comment on above: Performed By: #### G IP #### [facility] ([facility]) [address] [place] [address] VIR ASTROVIRUS Not detected Normal Not Detected [facility] Comment on above: Performed By: #### G IP #### [facility] ([facility]) [address] [place] [address] VIR CAMPYLOBACTER Detected Abnormal Not Detected [facility] Comment on above: Result Comment: Dete cts the following: C. jejuni, C. coli, C. upsaliensis. Performed By: #### G IP #### [facility] ([facility]) [address] [place] [address] VIR CRYPTOSPORIDIUM Not detected Normal Not Detected [facility] Comment on above: Performed By: #### G IP #### [facility] ([facility]) [address] [place] [address] VIR CYCLOSPORA Not detected Normal Not Detected [facility] Comment on above: Performed By: #### G IP #### [facility] ([facility]) [address] [place] [address] VIR E HISTOLYTICA Not detected Normal Not Detected [facility] Comment on above: Performed By: #### G IP #### [facility] ([facility]) [address] [place] [address] VIR GIARDIA LAMBLIA Not detected Normal Not Detected [facility] Comment on above: Performed By: #### G IP #### [facility] ([facility]) [address] [place] [address] VIR NOROVIRUS Not detected Normal Not Detected [facility] Comment on above: Performed By: #### G IP #### [facility] ([facility]) [address] [place] [address] VIR PATHOGENIC E COLI Detected Abnormal Not Detected [facility] Comment on above: Result Comment: Ente ropathogenic Escherichia coli Performed By: #### G IP #### [facility] ([facility]) [address] [place] [address] VIR PLESIOMONAS Not detected Normal Not Detected [facility] Comment on above: Performed By: #### G IP #### [facility] ([facility]) [address] [place] [address] VIR ROTAVIRUS A Not detected Normal Not Detected [facility] Comment on above: Performed By: #### G IP #### [facility] ([facility]) [address] [place] [address] VIR SALMONELLA Not detected Normal Not Detected [facility] Comment on above: Performed By: #### G IP #### [facility] ([facility]) [address] [place] [address] VIR SAPOVIRUS Not detected Normal Not Detected [facility] Comment on above: Performed By: #### G IP #### [facility] ([facility]) [address] [place] [address] VIR SHIGA TOXIN E COLI Not detected Normal Not Detected [facility] Comment on above: Performed By: #### G IP #### [facility] ([facility]) [address] [place] [address] VIR SHIGELLA-E COLI Not detected Normal Not Detected [facility] Comment on above: Performed By: #### G IP #### [facility] ([facility]) [address] [place] [address] VIR TOXIGENIC E COLI Not detected Normal Not Detected [facility] Comment on above: Performed By: #### G IP #### [facility] ([facility]) [address] [place] [address] VIR VIBRIO Not detected Normal Not Detected [facility] Comment on above: Performed By: #### G IP #### [facility] ([facility]) [address] [place] [address] VIR VIBRIO CHOLERAE Not detected Normal Not Detected [facility] Comment on above: Performed By: #### G IP #### [facility] ([facility]) [address] [place] [address] VIR Y. ENTEROCOLITICA Not detected Normal Not Detected [facility] Comment on above: Performed By: #### G IP #### [facility] ([facility]) [address] [place] [address] VIR LIPASEon 10-01-2024 Lipase [Catalytic activity/Vol] 32 U/L Normal 17-40 [facility] Comment on above: Performed By: #### L IPA #### [facility] ([address] [place] [address] VIR MAGNESIUMon 10-01-2024 Magnesium [Mass/Vol] 1.9 mg/dL Normal 1.8-2.6 [facility] Comment on above: Performed By: #### M G #### [facility] ([address] [place] [address] VIR POCT NURSING URINE MACROSCOP IC UAon 10-01-2024 BILIRUBIN SHANT Negative Normal Negative [facility] Comment on above: Performed By: #### N UM #### [facility] ([address] [place] [address] VIR BLOOD/HGB SHANT Moderate Abnormal Negative [facility] Comment on above: Performed By: #### N UM #### [facility] ([address] [place] [address] VIR GLUCOSE SHANT Negative Normal Negative [facility] Comment on above: Performed By: #### N UM #### [facility] ([address] [place] [address] VIR KETONES SHANT Negative Normal Negative [facility] Comment on above: Performed By: #### N UM #### [facility] ([address] [place] [address] VIR LEUKOCYTE ESTERASE SHANT Negative Normal Negative [facility] Comment on above: Performed By: #### N UM #### [facility] ([address] [place] [address] VIR NITRITE SHANT Negative Normal Negative [facility] Comment on above: Performed By: #### N UM #### [facility] ([address] [place] [address] VIR PH SHANT 6.0 Normal 5.0, 6.0, 6.5, 7.0, 7.5, 8.0, 8.5, 5.5 [facility] Comment on above: Performed By: #### N UM #### [facility] ([address] [address] VIR PROTEIN SHANT Trace Abnormal Negative [facility] Comment on above: Performed By: #### N UM #### [facility] ([address] [place] [address] VIR SPECIFIC GRAVITY SHANT <=1.005 Abnormal 1.010, 1.015, 1.020, 1.025 [facility] Comment on above: Performed By: #### N UM #### [facility] ([address] [address] VIR UROBILINOGEN SHANT 0.2 E.U./dL Normal [facility] Comment on above: Performed By: #### N UM #### [facility] ([address] Spine Lumbar Myelogram w/ Contraston [...] narrowing as detailed above. Radiation Dose Estimate: CTDI(mGy):0.881907 / / / kVp:120.212583 / mAs:0.424446 / / / DLP(mGy-cm):3.272431Vugy Part: CTDI(mGy):21.061052 / / / kVp:120.188185 / mAs:230.935031 / / / DLP(mGy-cm):616.784715Tljy Part: Final Dictated by: Alexey Morgan MD Dictated DT/TM: 07.30.2024 12:27 pm Signed by: Alexey Morgan MD Signed (Electronic Signature): 07.30.2024 12:38 pm (If Report Is Signed, Electronically Signed in Other Vendor System) Normal [facility] PTon 07-30-2024 INR Coag (PPP) [Relative time] 0.9 {INR} Normal <=3.5 [facility] Comment on above: Result Comment: INR has no normal range. INR Therapeutic range is: 2.0-3.0 (AF, CVA, TIAs, DVT prophylaxis, acute DVT) 2.5-3.5 ([facility] heart valves, recurrent thrombosis/emboli) Performed By: #### P TINR #### [address] [address] PT Coag (PPP) [Time] 10.4 s Normal 10.2-12.9 [facility] Comment on above: Performed By: #### P TINR #### [address] [address] PTTon 07-30-2024 aPTT Coag (Bld) [Time] 30.8 s Normal 25.1-36.5 [facility] Comment on above: Performed By: #### P TT #### [address] [address] Platelet Counton 07-30-2024 Platelet 313 x10*3/mcL Normal 150-450 [facility] Comment on above: Performed By: #### P TINR #### [address] [address] XR Myelography Lumbosacral S pineon 07-30-2024 XR [...] Electronically Signed in Other Vendor System) Normal [facility] Neurosurgery Office/Clinic N oteon 06-06-2024 Neurosurgery Office/Clinic Note Chief Complaint back follow up History of Present Illness The patient is a pleasant 64-year-old right-handed female with history of chronic nicotine use, asthma and recently diagnosed COPD for which she is planned to see a service delivery director in the near future. She also [...] therapy without benefit. 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 Oral narcotics including [place] which makes pain tolerable though does not resolve. Topical agents including lidocaine patches and [place] with limited benefit. Pain management injection modalities years ago with temporary benefit lasting only a few days. Physical therapy years ago without significant benefit. Chiropractic manipulation x 1 visit without benefit therefore patient never returned. Activity modification [1] Pain management injection modalities through [facility]. Initial injection targeted left L4-5 [...] No si (more content not included)... Normal [facility] Provider Letteron 06-06-2024 Provider Letter (Inserted Image. Gela ble to display) Cornelius Garrison MD [address] [place] [address], [place] [address] Re: Cristine Manley Date of Visit: 06/06/2024 Dear Cornelius Garrison MD, This patient was recently seen in the neurosurgical office. Please see attached note for further details. Let me know if you have any questions or concerns. Sincerely, DEMARCUS Gan Providers: The following document(s) were included in the letter: June 06, 2024 09:36:40 EST - (06/06/2024) Neurosurgery Office Visit Note Normal [facility] Dominick 04-22-2024 L ------ Specimen: [id number] Received: 04/24/24 Status: OMAR Aceves Num: [id number] Spec Type: Cytology Subm Dr: Cornelius Garrison MD Tissues: A FNA SLIDES NOPATH (INF RT THY) Procedures: Cyto Int and Re, PAPSTN/5 Age/ Patient Sex Location Account Attending Physician Cristine Manley 64/F [place] [id number] Cornelius Garrison MD SPEC NUM: [id number] RECD: 04/24/24 STATUS: OMAR ACEVES NUM: [id number] TORI: 04/22/24- SUBM DR: Cornelius Garrison MD ENTERED: 04/24/24 [facility] DR: Les Lee MD SPEC TYPE: Cytology DEPT: [facility] ENTERED BY: [id number] RECV BY: [id number] ORDERED: Cyto Int and Re, PAPSTN/5 ORDERED: Cyto Int and Re, PAPSTN/5 Supplemental Report Addendum 1 Entered: 05/10/241132 Supplemental for findings of [facility] GENOMIC SEQUENCING SMOKE CHASER: -[place] [facility] Coordinator -Benign (risk of malignancy 4%) -Xpression [place] -N/A -Other Classifiers -BRAF p. V600E c. 1799T>A: Negative -RET/PTC1: Not detected -RET/PTC3: Not detected -MTC: Negative -Parathyroid: Negative TERT PROMOTER REGION: -Tests (2) not Performed (TNP) Specimen: [id number] Received: 04/24/24 Status: OMAR Aceves Num: [id number] Spec Type: Cytology Subm Dr: Cornelius Garrison MD Tissues: A FNA SLIDES NOPATH (INF RT THY) Procedures: Cyto Int and Re, PAPSTN/5 Patient: Cristine Manley [id number] (Continued) Specimen: [id number] Received: 04/24/24 (Continued) Supplemental Report (Continued) Signed (signature on file) Gail Sheth MD 04/24/24 8680 Specimen: [id number] Received: 04/24/24 Status: OMAR [place] Num: [id number] Spec Type: Cytology Subm Dr: Cornelius Garrison MD Tissues: A FNA SLIDES NOPATH (INF RT THY) Procedures: Cyto Int and Re, PAPSTN/5 Patient: Cristine Manley [id number] (Continued) Specimen: [id number] Received: 04/24/24 (Continued) Supplemental Report (Continued) Addendum Signed (signature on file) Gail Sheth MD 05/10/24 1132 Pathological Diagnosis Right thyroid nodule, inferior, FNA cytology -Adequate follicular groups in the ThinPrep smear, appropriate for assessment, consisting of small to occasionally slightly larger and reactive follicular cells, suggesting dimorphic population and the category 3 [place] system, atypia of the undetermined significance, otherwise [...] vial stored at -20 for microscopic examination. (MS/hi) Microscopic Description Microscopic examinations are performed supporting the above interpretation CPT Codes 69439 Specimen: [id number] Received: 04/24/24 Status: OMAR Aceves Num: [id number] Spec Type: Cytology Subm Dr: Cornelius Garrison MD Tissues: A FNA SLIDES NOPATH (INF RT THY) Procedures: Cyto Int and Re, PAPSTN/5 Patient: Cristine Manley [id number] (Continued) Signed (signature on file) Pedro-Diogenes Sehth MD 04/24/24 9009 Normal [facility] EMG 2 Extremitieson 04-01-20 EMG/NCS BLE Right L5/S1 radic [place] S1/2 radic [facility] NVC 9-10 Nerveson 04-01-2024 EMG/NCS BLE Right L5/S1 radic [place] S1/2 radic [facility] Provider Letteron 03-26-2024 Provider Letter (Inserted Image. Gela ble to display) Cornelius Garrison MD [address] [place] [address] [place] [address] Re: Cristine Manley Date of Visit: 03/25/2024 Dear Cornelius Garrison MD, This patient was recently seen in the neurosurgical office. Please see attached note for further details. Let me know if you have any questions or concerns. Sincerely, DEMARCUS Gan Providers: The following document(s) were included in the letter: March 25, 2024 17:40:13 EST - (03/25/2024) Neurosurgery Office Visit Note Normal [facility] Neurosurgery Office/Clinic N oteon 03-25-2024 Neurosurgery Office/Clinic Note Chief Complaint CT thoracic, lumbar, XR lumbar, hips and neck review History of Present Illness The patient is a pleasant 64-year-old right-handed female with history of chronic nicotine use, asthma and recently diagnosed COPD for which she is planned to see a service delivery director in the near future. She also [...] does not resolve. Oral narcotics including [place] which makes pain tolerable though does not [...] increases slightl (more content not included)... Normal [facility] Basophils Auto (Bld) [#/Vol] on 03-21-2024 Basophils (Bld) [#/Vol] Automated basophil count 0.0-0.1 [facility] Basophils/100 WBC Auto (Bld) on 03-21-2024 Basophils/100 WBC (Bld) Automated basophil % 0.2-2.0 [facility] Eosinophils/100 WBC Auto (Bl d)on 03-21-2024 Eosinophils/100 WBC (Bld) Automated eosinophil % 0.9-7.0 [facility] Erythrocyte distribution wid th Auto (RBC) [Ratio]on 03-21-2024 Erythrocyte distribution width (RBC) [Ratio] Erythrocyte distribution width [Ratio] by Automated count 11.0-15.0 [facility] Hematocrit Auto (Bld) [Volum e fraction]on 03-21-2024 Hematocrit (Bld) [Volume fraction] Hematocrit [Volume Fraction] of Blood by Automated count 36.0-48.0 [facility] Hemoglobin [Mass/volume] in Bloodon 03-21-2024 Hemoglobin (Bld) [Mass/Vol] Hemoglobin [Mass/volume] in Blood 12.0-16.0 [facility] IgE [Units/volume] in Serum or Plasmaon 03-21-2024 IgE Qn IgE [Units/volume] i n Serum or Plasma 6-495 [facility] Comment on above: Performed at: [address] [id number] Director: Levi Pedroza MD, Phone: [phone] Laboratory - Hematology and Cell countson 03-21-2024 Immature granulocytes/100 WBC (Bld) 0.1 % 0.0-0.5 [facility] Leukocytes [#/volume] correc shant for nucleated erythrocytes in Blood by Automated counon 03-21-2024 WBC corrected for nucl RBC Auto (Bld) [#/Vol] Leukocytes [#/volume] corrected for nucleated erythrocytes in Blood by Automated coun 4.0-11.0 [facility] Lymphocytes Auto (Bld) [#/Vo l]on 03-21-2024 Lymphocytes (Bld) [#/Vol] Lymphocytes [#/volume] in Blood by Automated count 1.2-3.8 [facility] Lymphocytes/100 WBC Auto (Bl d)on 03-21-2024 Lymphocytes/100 WBC (Bld) Lymphocytes/100 leukocytes in Blood by Automated count Low 20.5-60.0 [facility] MCH Auto (RBC) [Entitic mass ]on 03-21-2024 MCH (RBC) [Entitic mass] MCH [Entitic mass] by Automated count 26.7-34.0 [facility] MCHC Auto (RBC) [Mass/Vol]on 03-21-2024 MCHC (RBC) [Mass/Vol] MCHC [Mass/volume] by Automated count 29.9-35.2 [facility] MCV Auto (RBC) [Entitic vol] on 03-21-2024 MCV (RBC) [Entitic vol] MCV [Entitic volume] by Automated count 81.0-99.0 [facility] Monocytes Auto (Bld) [#/Vol] on 03-21-2024 Monocytes (Bld) [#/Vol] Automated blood monocyte count 0.3-0.8 [facility] Monocytes/100 WBC Auto (Bld) on 03-21-2024 Monocytes/100 WBC (Bld) Automated monocyte % 1.7-12.0 [facility] Neutrophils Auto (Bld) [#/Vo l]on 03-21-2024 Neutrophils (Bld) [#/Vol] Neutrophils [#/volume] in Blood by Automated count High 1.4-6.5 [facility] Neutrophils/100 WBC Auto (Bl d)on 03-21-2024 Neutrophils/100 WBC (Bld) Automated neutrophil % 43.0-75.0 [facility] No Panel Informationon 03-21 Eosinophils # (Auto) 0.1 10 3/uL 0.0-0.7 [facility] Immature Granulocyte # (Auto) 0.01 10 3/uL 0.00-0.03 [facility] Platelet mean volume Auto (B ld) [Entitic vol]on 03-21-2024 Platelet mean volume (Bld) [Entitic vol] Platelet mean volume [Entitic volume] in Blood by Automated count 9.5-13.5 [facility] Platelets Auto (Bld) [#/Vol] on 03-21-2024 Platelets (Bld) [#/Vol] Platelets [#/volume] in Blood by Automated count 150-450 [facility] RBC Auto (Bld) [#/Vol]on RBC (Bld) [#/Vol] Erythrocytes [#/volu me] in Blood by Automated count 4.20-5.40 [facility] Provider Letteron 02-29-2024 Provider Letter (Inserted Image. Gela ble to display) Cornelius Whittaker [address], [place] [address] Re: Cristine Manley Date of Visit: 02/23/2024 Dear Cornelius Garrison MD, Please see attached results on this mutual patient you have with [facility] Result Name Current Result CT Spine Thoracic/Lumbar Myelogram w/Con 02/23/2024 Let me know if you have any questions or concerns. Sincerely, Jaclyn Bliss [facility] Clinical Lead Health Mailroom Clerk C C Providers: Normal [facility] CT Spine Thoracic/Lumbar Mye logram w/Conon [...] Electronically Signed in Other Vendor System) Normal [facility] PTon 02-23-2024 INR Coag (PPP) [Relative time] 1.0 {INR} Normal <=3.5 [facility] Comment on above: Result Comment: INR has no normal range. INR Therapeutic range is: 2.0-3.0 (AF, CVA, TIAs, DVT prophylaxis, acute DVT) 2.5-3.5 ([facility] heart valves, recurrent thrombosis/emboli) Performed By: #### P TINR #### [address] [address] PT Coag (PPP) [Time] 10.3 s Normal 9.2-12.0 [facility] Comment on above: Performed By: #### P TINR #### [address] [address] PTTon 02-23-2024 aPTT Coag (Bld) [Time] 24.8 s Normal 19.5-28.2 [facility] Comment on above: Performed By: #### P TT #### [address] [address] Platelet Counton 02-23-2024 Platelet 300 x10*3/mcL Normal 150-450 [facility] Comment on above: Performed By: #### P LTS #### [address] [address] XR Hip 2-3 Views Lefton 02-08 XR [...] Electronically Signed in Other Vendor System) Normal [facility] XR Myelography Spine 2 or Mo [...] Electronically Signed in Other Vendor System) Normal [facility] XR Spine Cervical 4 or 5 [...] Electronically Signed in Other Vendor System) Normal [facility] XR Spine Lumbosacral Bending 2-3 Viewson [...] Electronically Signed in Other Vendor System) Normal [facility] Neurosurgery Office/Clinic N sherry 02-13-2024 Neurosurgery Office/Clinic Note Chief Complaint Back lumbar pain radiculopathy consult History of Present Illness The patient is a pleasant 64-year-old right-handed female with history of chronic nicotine use, asthma and recently diagnosed COPD for which she is planned to see a service delivery director in the near future. She also [...] does not resolve. Oral narcotics including [place] which makes pain tolerable though does not [...] Newly diagnosed COPD, scheduled to see a service delivery director in the near future Chronic nicotine [...] marijuana use. 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 She denies any Worker's Comp. related claims regarding today's visit FAMILY HISTORY: Lung cancer: Father Diabetes mellitus: Mother Hypertension: Mother Review of Systems Constitutional: [No fevers, chills, sweats] Eye: [No recent visual problems] ENMT: [ (more content not included)... Normal [facility] Provider Letteron 02-13-2024 Provider Letter (Inserted Image. Gela ble to display) Cornelius Garrison MD [facility], [place] [address] Re: Cristine Manley Date of Visit: 02/13/2024 Dear Cornelius Garrison MD, This patient was recently seen in the neurosurgical office. Please see attached note for further details. Let me know if you have any questions or concerns. Sincerely, DEMARCUS Gan Providers: The following document(s) were included in the letter: February 13, 2024 09:39:53 EST - (02/13/2024) Neurosurgery Office Visit Note Normal [facility] XR knee BI 3V - NOT FOR ER U Sanam 01-24-2024 XR knee BI 3V - NOT FOR ER USE [facility] [address] [place] [address] XRay Report Signed Patient: Cristine Manley MR#: [id number] 53 : 1960 Acct:[id number] Age/Sex: 64 / F ADM Date: 01/24/24 [place] [facility] [place]: Type: [facility] Attending Dr: Alexandro Galvez DO Copies [...] Sunday Graham M.D.01/24/2024 3:45 PM Dictation Location: [place] [address] Transcribed By: [facility] 01/24/24 154 Dictated By: Sunday Graham II, MD 01/24/24 154 Signed By: 01/24/241544 Normal [facility] Basophils Auto (Bld) [#/Vol] on 01-19-2024 Basophils (Bld) [#/Vol] 0.0 10 3/uL 0.0-0.1 [facility] Basophils (Bld) [#/Vol] Automated basophil count 0.0-0.1 [facility] Basophils/100 WBC Auto (Bld) on 01-19-2024 Basophils/100 WBC (Bld) 0.2 % 0.2-2.0 [facility] Basophils/100 WBC (Bld) Automated basophil % 0.2-2.0 [facility] Eosinophils/100 WBC Auto (Bl d)on 01-19-2024 Eosinophils/100 WBC (Bld) 4.3 % 0.9-7.0 [facility] Eosinophils/100 WBC (Bld) Automated eosinophil % 0.9-7.0 [facility] Erythrocyte distribution wid th Auto (RBC) [Ratio]on 01-19-2024 Erythrocyte distribution width (RBC) [Ratio] 13.1 % 11.0-15.0 [facility] Erythrocyte distribution width (RBC) [Ratio] Erythrocyte distribution width [Ratio] by Automated count 11.0-15.0 [facility] Estimated glomerular filtrat ion rate (GFR) non- Americanon 01-19-2024 GFR/1.73 sq M.predicted among non-blacks MDRD (S/P/Bld) [Vol rate/Area] mL/min/{1.73_m2} >=60 mL/min/1.73m 2 [facility] GFR/1.73 sq M.predicted among non-blacks MDRD (S/P/Bld) [Vol rate/Area] Estimated glomerular filtration rate (GFR) non- >=60 mL/min/1.73m 2 [facility] Fibrin D-dimer [Presence] in Platelet poor plasma by Latex agglutinationon 01-19-2024 Fibrin D-dimer LA Ql (PPP) 0.43 mg/L FEU <=0.59 [facility] Comment on above: Increases in [...] Platelet poor plasma by Latex agglutination <=0.59 [facility] Comment on above: Increases in [...] Hematocrit (Bld) [Volume fraction] 39.5 % 36.0-48.0 [facility] Hematocrit (Bld) [Volume fraction] Hematocrit [Volume Fraction] of Blood by Automated count 36.0-48.0 [facility] Hemoglobin [Mass/volume] in Bloodon 01-19-2024 Hemoglobin (Bld) [Mass/Vol] 12.8 g/dL 12.0-16.0 [facility] Hemoglobin (Bld) [Mass/Vol] Hemoglobin [Mass/volume] in Blood 12.0-16.0 [facility] Laboratory - Chemistry and C hemistry - challengeon 01-19-2024 Calcium [Mass/Vol] 9.0 mg/dL 8.5-10.1 [facility] Chloride [Moles/Vol] 105 mmol/L 98-107 [facility] CO2 [Moles/Vol] 28.7 mmol/L 21.0-32.0 [facility] Creatinine [Mass/Vol] 0.92 mg/dL 0.55-1.02 [facility] GFR/1.73 sq M.predicted MDRD (S/P/Bld) [Vol rate/Area] mL/min/{1.73_m2} >=60 mL/min/1.73m 2 [facility] Glucose [Mass/Vol] 78 mg/dL 74-106 [facility] Potassium [Moles/Vol] 4.0 mmol/L 3.5-5.1 [facility] Sodium [Moles/Vol] 138 mmol/L 136-145 [facility] Urea nitrogen [Mass/Vol] 27.0 mg/dL High 7.0-18.0 [facility] Urea nitrogen/Creatinine [Mass ratio] 29.3 mg/mg [facility] Laboratory - Hematology and Cell countson 01-19-2024 Immature granulocytes/100 WBC (Bld) 0.3 % 0.0-0.5 [facility] Laboratory - Microbiology an d Antimicrobial susceptibilityon 01-19-2024 SARS-CoV-2 (COVID-19) RNA JOSELUIS+probe Ql (Unsp spec) Negative NEGATIVE [facility] Comment on above: This test [...] (Bld) [#/Vol] 12.6 10 3/uL High 4.0-11.0 [facility] WBC corrected for nucl RBC Auto (Bld) [#/Vol] Leukocytes [#/volume] corrected for nucleated erythrocytes in Blood by Automated coun High 4.0-11.0 [facility] Lymphocytes Auto (Bld) [#/Vo l]on 01-19-2024 Lymphocytes (Bld) [#/Vol] 4.4 10 3/uL High 1.2-3.8 [facility] Lymphocytes (Bld) [#/Vol] Lymphocytes [#/volume] in Blood by Automated count High 1.2-3.8 [facility] Lymphocytes/100 WBC Auto (Bl d)on 01-19-2024 Lymphocytes/100 WBC (Bld) 35.0 % 20.5-60.0 [facility] Lymphocytes/100 WBC (Bld) Lymphocytes/100 leukocytes in Blood by Automated count 20.5-60.0 [facility] MCH Auto (RBC) [Entitic mass ]on 01-19-2024 MCH (RBC) [Entitic mass] 29.4 pg 26.7-34.0 [facility] MCH (RBC) [Entitic mass] MCH [Entitic mass] by Automated count 26.7-34.0 [facility] MCHC Auto (RBC) [Mass/Vol]on 01-19-2024 MCHC (RBC) [Mass/Vol] 32.4 g/dL 29.9-35.2 [facility] MCHC (RBC) [Mass/Vol] MCHC [Mass/volume] by Automated count 29.9-35.2 [facility] MCV Auto (RBC) [Entitic vol] on 01-19-2024 MCV (RBC) [Entitic vol] 90.6 fL 81.0-99.0 [facility] MCV (RBC) [Entitic vol] MCV [Entitic volume] by Automated count 81.0-99.0 [facility] Monocytes Auto (Bld) [#/Vol] on 01-19-2024 Monocytes (Bld) [#/Vol] 1.2 10 3/uL High 0.3-0.8 [facility] Monocytes (Bld) [#/Vol] Automated blood monocyte count High 0.3-0.8 [facility] Monocytes/100 WBC Auto (Bld) on 01-19-2024 Monocytes/100 WBC (Bld) 9.5 % 1.7-12.0 [facility] Monocytes/100 WBC (Bld) Automated monocyte % 1.7-12.0 [facility] Neutrophils Auto (Bld) [#/Vo l]on 01-19-2024 Neutrophils (Bld) [#/Vol] 6.4 10 3/uL 1.4-6.5 [facility] Neutrophils (Bld) [#/Vol] Neutrophils [#/volume] in Blood by Automated count 1.4-6.5 [facility] Neutrophils/100 WBC Auto (Bl d)on 01-19-2024 Neutrophils/100 WBC (Bld) 50.7 % 43.0-75.0 [facility] Neutrophils/100 WBC (Bld) Automated neutrophil % 43.0-75.0 [facility] No Panel Informationon 01-18 Bedside Influenza Type A Antigen Negative [facility] Comment on above: Negative for Flu A p rotein antigen. Infection due to Flu Acannot be ruled out. Flu A antigen in the sample may bebelow the detection limit of the test. Bedside Influenza Type B Antigen Negative [facility] Comment on above: Negative for Flu B p rotein antigen. Infection due to Flu Bcannot be ruled out. Flu B antigen in the sample may bebelow the detection limit of the test. Eosinophils # (Auto) 0.5 10 3/uL 0.0-0.7 [facility] Immature Granulocyte # (Auto) 0.04 10 3/uL High 0.00-0.03 [facility] Troponin I High Sensitivity 5.8 pg/mL 4.0-51.3 [facility] Comment on above: CUT-OFF POINTS [...] (Bld) [Entitic vol] 9.3 fL Low 9.5-13.5 [facility] Platelet mean volume (Bld) [Entitic vol] Platelet mean volume [Entitic volume] in Blood by Automated count Low 9.5-13.5 [facility] Platelets Auto (Bld) [#/Vol] on 01-19-2024 Platelets (Bld) [#/Vol] 304 10 3/uL 150-450 [facility] Platelets (Bld) [#/Vol] Platelets [#/volume] in Blood by Automated count 150-450 [facility] RBC Auto (Bld) [#/Vol]on RBC (Bld) [#/Vol] 4.36 10 6/uL 4.20-5.40 [facility] RBC (Bld) [#/Vol] Erythrocytes [#/volu me] in Blood by Automated count 4.20-5.40 [facility] Serum or plasma anion gap de terminationon 01-19-2024 Anion gap [Moles/Vol] 8.3 mmol/L [facility] Anion gap [Moles/Vol] Serum or plasma an ion gap determination [facility] Borrelia burgdorferi IgG+IgM Ab [Presence] in Serum by Immunoassayon 10-13-2023 B. burgdorferi IgG+IgM IA Ql (S) Negative Negative [facility] Comment on above: Lyme antibodies not detected. Reflex testing is notindicated.No laboratory evidence of infection with B. burgdorferi(Lyme disease). Negative results may occur in patientsrecently infected (less than or equal to 14 days) with B.burgdorferi. If recent infection is suspected, repeattesting on a new sample collected in 7 to 14 days isrecommended.Performed at: - [address] [id number] Director: Jeovany Bazan PhD, Phone: [phone] Covid-19 PCR (CVDTB)on SARS-CoV-2 (COVID-19) RNA JOSELUIS+probe Ql (Unsp spec) Not detected Normal NOT DETECTED [facility] Comment on above: Result Comment: This test is not yet approved or cleared by the [place] FDA. When there are no FDA-approved or cleared tests available, and other criteria are met, FDA can make tests available under an emergency access mechanism called an Emergency Use Authorization (EUA). The EUA for this test is supported by the [place] of Health and Human Service's (HHS's) declaration [...] SARS-CoV-2. Performed By: #### C VDTBH #### [facility] [address] [place] [address] Dr. Pablo Sheth CBC AUTO DIFFon 12-17-2021 BASO # 0.1 103/ul Normal 0.0-0.1 [facility] Comment on above: Performed By: #### D ATCBC #### [facility] [address] [place] [address] Dr. Pablo Sheth Basophils/100 WBC (Bld) 0.4 % Normal 0.2-2.0 [facility] Comment on above: Performed By: #### D ATCBC #### [facility] [address] [place] [address] Dr. Pablo Sheth EO # 0.3 103/ul Normal 0.0-0.7 [facility] Comment on above: Performed By: #### D ATCBC #### [facility] [address] [place] [address] Dr. Pablo Sheth Eosinophils/100 WBC (Bld) 2.4 % Normal 0.9-7.0 [facility] Comment on above: Performed By: #### D ATCBC #### [facility] [address] [place] [address] Dr. Pablo Sheth Erythrocyte distribution width (RBC) [Ratio] 13.2 % Normal 11.0-15.0 [facility] Comment on above: Performed By: #### D ATCBC #### [facility] [address] [place] [address] Dr. Pablo Sheth Hematocrit (Bld) [Volume fraction] 42.6 % Normal 36.0-48.0 [facility] Comment on above: Performed By: #### D ATCBC #### [facility] [address] [place] [address] [address] Pablo Sheth Hemoglobin (Bld) [Mass/Vol] 13.7 g/dL Normal 12.0-16.0 [facility] Comment on above: Performed By: #### D ATCBC #### [facility] [address] [place] [address] [address] Pablo Sheth IG # 0.05 10e3/ul Critically high 0.00-0.03 [facility] Comment on above: Performed By: #### D ATCBC #### [facility] [address] [place] [address] [address] Pablo Sheth IG % 0.4 % Normal 0.0-0.5 [facility] Comment on above: Performed By: #### D ATCBC #### [facility] [address] [place] [address] [address] Pablo Sheth LYMPH # 2.8 103/ul Normal 1.2-3.8 [facility] Comment on above: Performed By: #### D ATCBC #### [facility] [address] [place] [address] [address] Pablo Sheth Lymphocytes/100 WBC (Bld) 20.9 % Normal 20.5-60.0 [facility] Comment on above: Performed By: #### D ATCBC #### [facility] [address] [place] [address] [address] Pablo Sheth MCH (RBC) [Entitic mass] 29.2 pg Normal 26.7-34.0 [facility] Comment on above: Performed By: #### D ATCBC #### [facility] [address] [place] [address] [address] Pablo Sheth MCHC (RBC) [Mass/Vol] 32.2 g/dL Normal 29.9-35.2 [facility] Comment on above: Performed By: #### D ATCBC #### [facility] [address] [place] [address] [address] Pablo Sheth MCV (RBC) [Entitic vol] 90.8 fL Normal 81.0-99.0 [facility] Comment on above: Performed By: #### D ATCBC #### [facility] [address] [place] [address] Dr. Pablo Sheth MONO # 1.0 103/ul Critically high 0.3-0.8 [facility] Comment on above: Performed By: #### D ATCBC #### [facility] [address] [place] [address] Dr. Pablo Sheth Monocytes/100 WBC (Bld) 7.5 % Normal 1.7-12.0 [facility] Comment on above: Performed By: #### D ATCBC #### [facility] [address] [place] [address] Dr. Pablo Sheth NEUT # 9.2 103/ul Critically high 1.4-6.5 [facility] Comment on above: Performed By: #### D ATCBC #### [facility] [address] [place] [address] Dr. Pablo Sheth Neutrophils/100 WBC (Bld) 68.4 % Normal 43.0-75.0 [facility] Comment on above: Performed By: #### D ATCBC #### [facility] [address] [place] [address] Dr. Pablo Sheth Platelet mean volume (Bld) [Entitic vol] 9.3 fL Critically low 9.5-13.5 [facility] Comment on above: Performed By: #### D ATCBC #### [facility] [address] [place] [address] Dr. Pablo Sheth PLT 313 103/ul Normal 150-450 [facility] Comment on above: Performed By: #### D ATCBC #### [facility] [address] [place] [address] Dr. Pablo Sheth RBC 4.69 106/ul Normal 4.20-5.40 [facility] Comment on above: Performed By: #### D ATCBC #### [facility] [address] [place] [address] Dr. Pablo Sheth WBC 13.4 103/ul Critically high 4.0-11.0 [facility] Comment on above: Performed By: #### D ATCBC #### [facility] [address] [place] [address] [address] Pablo Sheth BERKLEY - TSHon 12-17-2021 TSH 1.241 uIU/mL Normal 0.358-3.740 [facility] Comment on above: Performed By: #### D ATTSH, DATBMP #### [facility] [address] [place] [address] Dr. Pablo Sheth TSH RANGE SEE BELOW Normal [facility] Comment on above: Result Comment: <0.3 4 UIU/ml HYPERTHYROID 0.34-5.60 UIU/ml EUTHYROID >5.60 UIU/ml HYPOTHYROID Performed By: #### D ATTTONYA, DATBMP #### [facility] [address] [place] [address] Dr. Pablo Sheth BERKLEY- BMP WITH LIPIDon 2021 Anion gap [Moles/Vol] 11.9 mmol/L Normal [facility] Comment on above: Performed By: #### D ATTSH, DATBMP #### [facility] [address] [place] [address] Dr. aPblo Sheth Calcium [Mass/Vol] 9.1 mg/dL Normal 8.5-10.1 [facility] Comment on above: Performed By: #### D ATTSH, DATBMP #### [facility] [address] [place] [address] Dr. Pablo Sheth Chloride [Moles/Vol] 104 mmol/L Normal 98-107 [facility] Comment on above: Performed By: #### D ATTSH, DATBMP #### [facility] [address] [place] [address] Dr. Pablo Sheth Cholesterol [Mass/Vol] 207 mg/dL Critically high <=200 [facility] Comment on above: Performed By: #### D ATTSH, DATBMP #### [facility] [address] [place] [address] Dr. Pablo Sheth Cholesterol in HDL [Mass/Vol] 52 mg/dL Normal 40-60 [facility] Comment on above: Performed By: #### D ATTSH, DATBMP #### [facility] [address] [place] [address] [address] Pablo Sheth Cholesterol in LDL [Mass/Vol] 141.4 mg/dL Normal [facility] Comment on above: Performed By: #### D ATTSH, DATBMP #### [facility] [address] [address] [address] Pablo Sheth CO2 [Moles/Vol] 29.3 mmol/L Normal 21.0-32.0 [facility] Comment on above: Performed By: #### D ATTSH, DATBMP #### [facility] [address] [place] [address] [address] Pablo Sheth Creatinine [Mass/Vol] 0.77 mg/dL Normal 0.55-1.02 [facility] Comment on above: Performed By: #### D ATTSH, DATBMP #### [facility] [address] [address] [address] Pablo Sheth EGFR-AF BOTSWANAN >60 Normal >=60 [facility] Comment on above: Performed By: #### D ATTSH, DATBMP #### [facility] [address] [place] [address] [address] Pbalo Sheth EGFR-NON AF BOTSWANAN >60 Normal >=60 [facility] Comment on above: Performed By: #### D ATTSH, DATBMP #### [facility] [address] [address] [address] Pablo Sheth Glucose [Mass/Vol] 109 mg/dL Critically high 74-106 [facility] Comment on above: Performed By: #### D ATTSH, DATBMP #### [facility] [address] [address] [address] Pablo Sheth HDL NORMAL > or = 60 mg/dl - LO W CARDIOVASCULAR RISK <40 mg/dl - HIGH CARDIOVASCULAR RISK Normal [facility] Comment on above: Performed By: #### D ATTSH, DATBMP #### [facility] [address] [address] [address] Pablo Sheth LDL CALC NORMAL SEE BELOW Normal [facility] Comment on above: Result Comment: <100 mg/dl OPTIMAL 100 - 129 mg/dl NEAR OR ABOVE OPTIMAL 130 - 159 mg/dl BORDERLINE HIGH 160 - 189 mg/dl HIGH >190 mg/dl VERY HIGH Performed By: #### D ATTTONYA, DATBMP #### [facility] [address] [address] [address] Pablo Sheth Potassium [Moles/Vol] 4.2 mmol/L Normal 3.5-5.1 [facility] Comment on above: Performed By: #### D ATTSH, DATBMP #### [facility] [address] [address] [address] Pablo Sheth Sodium [Moles/Vol] 141 mmol/L Normal 136-145 [facility] Comment on above: Performed By: #### D ATTTONYA, DATBMP #### [facility] [address] [place] [address] Dr. Pablo Sheth Triglyceride [Mass/Vol] 68 mg/dL Normal <=150 [facility] Comment on above: Performed By: #### D JOSE J, DATBMP #### [facility] [address] [address] [address] Pablo Sheth Urea nitrogen [Mass/Vol] 26.0 mg/dL Critically high 7.0-18.0 [facility] Comment on above: Performed By: #### D JOSE J, DATBMP #### [facility] [address] [address] [address] Pablo Sheth Urea nitrogen/Creatinine [Mass ratio] 33.8 mg/mg Normal [facility] Comment on above: Performed By: #### D ATTTONYA, DATBMP #### [facility] [address] [address] [address] Pablo Sehth VLDL CALC 13.6 mg/dL Normal [facility] Comment on above: Performed By: #### D ATTSH, DATBMP #### [facility] [address] [address] [address] Pablo Sheth Vital Signs Date Time Vital Sign Value Performing Clinician Facility 12-06-2024 11:35-0400 Body height 170.18 cm Cornelius Garrison MD Work Phone: [facility] 12-06-2024 11:35-0400 Body mass index (BMI) [Ratio] 25.6 kg/m2 Cornelius Garrison MD Work Phone: [facility] 12-06-2024 11:35-0400 Body weight 74.16 kg Cornelius Garrison MD Work Phone: [facility] 12-06-2024 11:35-0400 Diastolic blood pressure 60 mm[Hg] Cornelius Garrison MD Work Phone: [facility] 12-06-2024 11:35-0400 Heart rate 63 /min Cornelius Garrison MD Work Phone: [facility] 12-06-2024 11:35-0400 Respiratory rate 14 /min Cornelius Garrison MD Work Phone: [facility] 12-06-2024 11:35-0400 SaO2% (BldA) [Mass fraction] 96 % Cornelius Garrison MD Work Phone: [facility] 12-06-2024 11:35-0400 Systolic blood pressure 92 mm[Hg] Cornelius Garrison MD Work Phone: [facility] 11-15-2024 14:38-0400 Body height 170.18 cm Cornelius Garrison MD Work Phone: [facility] 11-15-2024 14:38-0400 Body mass index (BMI) [Ratio] 26.6 kg/m2 Cornelius Garrison MD Work Phone: [facility] 11-15-2024 14:38-0400 Body weight 77.11 kg Cornelius Garrison MD Work Phone: [facility] 11-15-2024 14:38-0400 Diastolic blood pressure 77 mm[Hg] Cornelius Garrison MD Work Phone: [facility] 11-15-2024 14:38-0400 Heart rate 82 /min Cornelius Garrison MD Work Phone: [facility] 11-15-2024 14:38-0400 Systolic blood pressure 116 mm[Hg] Cornelius Garrison MD Work Phone: [facility] 09-27-2024 14:55-0400 Diastolic blood pressure 77 mm[Hg] Cornelius Garrison MD Work Phone: [facility] 09-27-2024 14:55-0400 Heart rate 86 /min Cornelius Garrison MD Work Phone: [facility] 09-27-2024 14:55-0400 Systolic blood pressure 107 mm[Hg] Cornelius Garrison MD Work Phone: [facility] 09-27-2024 14:42-0400 Body height 170.18 cm Cornelius Garrison MD Work Phone: [facility] 09-27-2024 14:42-0400 Body mass index (BMI) [Ratio] 26.4 kg/m2 Cornelius Garrison MD Work Phone: [facility] 09-27-2024 14:42-0400 Body temperature 98.5 [degF] Corenlius Garrison MD Work Phone: [facility] 09-27-2024 14:42-0400 Body weight 76.65 kg Cornelius Garrison MD Work Phone: [facility] 09-27-2024 14:42-0400 SaO2% (BldA) [Mass fraction] 98 % Cornelius Garrison MD Work Phone: [facility] 06-26-2024 08:30-0400 Body height 170.18 cm Cornelius Garrison MD Work Phone: [facility] 06-26-2024 08:30-0400 Body mass index (BMI) [Ratio] 27.6 kg/m2 Cornelius Garrison MD Work Phone: [facility] 06-26-2024 08:30-0400 Body weight 79.94 kg Cornelius Garrison MD Work Phone: [facility] 06-26-2024 08:30-0400 Diastolic blood pressure 107 mm[Hg] Cornelius Garrison MD Work Phone: [facility] 06-26-2024 08:30-0400 Heart rate 80 /min Cornelius Garrison MD Work Phone: [facility] 06-26-2024 08:30-0400 Respiratory rate 12 /min Cornelius Garrison MD Work Phone: [facility] 06-26-2024 08:30-0400 SaO2% (BldA) [Mass fraction] 95 % Cornelius Garrison MD Work Phone: [facility] 06-26-2024 08:30-0400 Systolic blood pressure 168 mm[Hg] Cornelius Garrison MD Work Phone: [facility] 06-05-2024 14:11-0500 Body height 170.2 cm Geoff Moyergovindhenrietta DO Work Phone: [facility] 06-05-2024 14:11-0500 Body mass index (BMI) [Ratio] 27.72 kg/m2 Geoff Comfortcek DO Work Phone: [facility] 06-05-2024 14:11-0500 Body weight 80.29 kg Geoff Moyershyann DO Work Phone: [facility] 04-15-2024 15:14-0500 Body height 170.18 cm Cornelius Garrison MD Work Phone: [facility] 04-15-2024 15:14-0500 Body mass index (BMI) [Ratio] 27.7 kg/m2 Cornelius Garrison MD Work Phone: [facility] 04-15-2024 15:14-0500 Body temperature 98.4 [degF] Cornelius Garrison MD Work Phone: [facility] 04-15-2024 15:14-0500 Body weight 80.28 kg Cornelius Garrison MD Work Phone: [facility] 04-15-2024 15:14-0500 Diastolic blood pressure 82 mm[Hg] Cornelius Garrison MD Work Phone: [facility] 04-15-2024 15:14-0500 Heart rate 83 /min Cornelius Garrison MD Work Phone: [facility] 04-15-2024 15:14-0500 Respiratory rate 20 /min Cornelius Garrison MD Work Phone: [facility] 04-15-2024 15:14-0500 SaO2% (BldA) [Mass fraction] 96 % Cornelius Garrison MD Work Phone: [facility] 04-15-2024 15:14-0500 Systolic blood pressure 128 mm[Hg] Cornelius Garrison MD Work Phone: [facility] 03-29-2024 08:56-0500 Body height 170.18 cm Cornelius Garrison MD Work Phone: [facility] 03-29-2024 08:56-0500 Body mass index (BMI) [Ratio] 27.2 kg/m2 Cornelius Garrison MD Work Phone: [facility] 03-29-2024 08:56-0500 Body weight 78.92 kg Cornelius Garrison MD Work Phone: [facility] 03-29-2024 08:56-0500 Diastolic blood pressure 86 mm[Hg] Cornelius Garrison MD Work Phone: [facility] 03-29-2024 08:56-0500 Heart rate 91 /min Cornelius Garrison MD Work Phone: [facility] 03-29-2024 08:56-0500 SaO2% (BldA) [Mass fraction] 95 % Cornelius Garrison MD Work Phone: [facility] 03-29-2024 08:56-0500 Systolic blood pressure 124 mm[Hg] Cornelius Garrison MD Work Phone: [facility] 03-11-2024 15:29-0500 Body height 170.18 cm Cornelius Garrison MD Work Phone: [facility] 03-11-2024 15:29-0500 Body mass index (BMI) [Ratio] 27.8 kg/m2 Cornelius Garrison MD Work Phone: [facility] 03-11-2024 15:29-0500 Body temperature 97.6 [degF] Cornelius Garrison MD Work Phone: [facility] 03-11-2024 15:29-0500 Body weight 80.73 kg Cornelius Garrison MD Work Phone: [facility] 03-11-2024 15:29-0500 Diastolic blood pressure 80 mm[Hg] Cornelius Garrison MD Work Phone: [facility] 03-11-2024 15:29-0500 Heart rate 82 /min Cornelius Garrison MD Work Phone: [facility] 03-11-2024 15:29-0500 Respiratory rate 20 /min Cornelius Garrison MD Work Phone: [facility] 03-11-2024 15:29-0500 SaO2% (BldA) [Mass fraction] 98 % Cornelius Garrison MD Work Phone: [facility] 03-11-2024 15:29-0500 Systolic blood pressure 134 mm[Hg] Cornelius Grarison MD Work Phone: [facility] 02-08-2024 13:55-0400 Body height 170.18 cm MD Cornelius Garrison Work Phone: [facility] 02-08-2024 13:55-0400 Body mass index (BMI) [Ratio] 27.9 kg/m2 MD Cornelius Garrison Work Phone: [facility] 02-08-2024 13:55-0400 Body weight 80.9 kg MD Cornelius Garrison Work Phone: [facility] 02-08-2024 13:55-0400 Diastolic blood pressure 78 mm[Hg] MD Cornelius Garrison Work Phone: [facility] 02-08-2024 13:55-0400 Heart rate 74 /min MD Cornelius Garrison Work Phone: [facility] 02-08-2024 13:55-0400 SaO2% (BldA) [Mass fraction] 96 % MD Cornelius Garrison Work Phone: [facility] 02-08-2024 13:55-0400 Systolic blood pressure 110 mm[Hg] MD Cornelius Garrison Work Phone: [facility] 01-24-2024 14:35-0400 Body height 170.18 cm MD Cornelius Garrison Work Phone: [facility] 01-24-2024 14:35-0400 Body mass index (BMI) [Ratio] 28.3 kg/m2 MD Cornelius Garrison Work Phone: [facility] 01-24-2024 14:35-0400 Body weight 82.21 kg MD Cornelius Garrison Work Phone: [facility] 01-09-2024 15:17-0400 Body height 167.64 cm [facility] 01-09-2024 15:17-0400 Body mass index (BMI) [Ratio] 28.2 kg/m2 [facility] 01-09-2024 15:17-0400 Body weight 79.37 kg [facility] 01-09-2024 15:17-0400 Diastolic blood pressure 91 mm[Hg] [facility] 01-09-2024 15:17-0400 Heart rate 76 /min [facility] 01-09-2024 15:17-0400 SaO2% (BldA) [Mass fraction] 97 % [facility] 01-09-2024 15:17-0400 Systolic blood pressure 135 mm[Hg] [facility] 11-01-2023 08:57-0400 Body height 167.64 cm [facility] 11-01-2023 08:57-0400 Body mass index (BMI) [Ratio] 28.2 kg/m2 [facility] 11-01-2023 08:57-0400 Body weight 79.37 kg [facility] 11-01-2023 08:57-0400 Diastolic blood pressure 90 mm[Hg] [facility] 11-01-2023 08:57-0400 Heart rate 63 /min [facility] 11-01-2023 08:57-0400 Systolic blood pressure 136 mm[Hg] [facility] 10-13-2023 09:19-0400 Body height 167.64 cm [facility] 10-13-2023 09:19-0400 Body mass index (BMI) [Ratio] 28 kg/m2 [facility] 10-13-2023 09:19-0400 Body weight 78.92 kg [facility] 10-13-2023 09:19-0400 Diastolic blood pressure 76 mm[Hg] [facility] 10-13-2023 09:19-0400 Heart rate 78 /min [facility] 10-13-2023 09:19-0400 SaO2% (BldA) [Mass fraction] 98 % [facility] 10-13-2023 09:19-0400 Systolic blood pressure 118 mm[Hg] [facility] 07-31-2023 10:09-0400 Body height 167.64 cm [facility] 07-31-2023 10:09-0400 Body mass index (BMI) [Ratio] 28.8 kg/m2 [facility] 07-31-2023 10:09-0400 Body weight 80.9 kg [facility] 07-31-2023 10:09-0400 Diastolic blood pressure 89 mm[Hg] [facility] 07-31-2023 10:09-0400 Heart rate 74 /min [facility] 07-31-2023 10:09-0400 Systolic blood pressure 138 mm[Hg] [facility] 12-22-2021 14:20-0400 Blood Pressure Location Mihaela CALVILLO [facility] [place] 12-22-2021 14:20-0400 Diastolic blood pressure 80 mm[Hg] Mihaela CALVILLO [facility] [place] 12-22-2021 14:20-0400 Heart rate 72 /min Mihaela NILL [facility] [place] 12-22-2021 14:20-0400 Respiratory rate 16 /min Mihaela CALVILLO [facility] [place] 12-22-2021 14:20-0400 Systolic blood pressure 116 mm[Hg] Mihaela CALVILLO [facility] [place] Encounters Encounter Date Encounter Type Care Provider Facility Start: 12-06-2024 End: 12-06-2024 ambulatory Cornelius Garrison MD Work Phone: [facility] Work Phone: Start: 12-06-2024 End: 12-06-2024 Patient encounter procedure Cornelius Garrison MD -[facility] Work Phone: Start: 12-02-2024 End: 12-02-2024 ambulatory Cornelius Garrison MD Work Phone: [facility] Work Phone: Start: 12-02-2024 End: 12-02-2024 Departed Referred Cornelius Garrison MD -[facility] Work Phone: Start: 12-02-2024 End: 12-02-2024 ambulatory Cornelius Garrison MD Work Phone: [facility] Work Phone: Start: 12-02-2024 End: 12-02-2024 Patient encounter procedure Cornelius Garrison MD -[facility] Work Phone: Start: 11-26-2024 End: 11-26-2024 ambulatory BRIE MCKAY Facility:[facility] Start: 11-26-2024 End: 11-26-2024 Patient encounter procedure BRIE MCKAY [facility] Start: 11-18-2024 End: 11-18-2024 ambulatory Roselyn Shah Facility:[facility] Start: 11-18-2024 End: 11-18-2024 Patient encounter procedure Roselyn Shah [facility] Start: 11-15-2024 End: 11-15-2024 ambulatory Cornelius Garrison MD Work Phone: [facility] Work Phone: Start: 11-15-2024 End: 11-15-2024 Patient encounter procedure Cornelius Garrison MD -[facility] Work Phone: Start: 11-13-2024 Non-patient / Non-visit Vera Peace [facility] Work Phone: Start: 11-13-2024 End: 11-13-2024 ambulatory Cornelius Garrison MD Work Phone: [facility] Work Phone: Start: 11-13-2024 End: 11-13-2024 Departed Referred Brie Mckay MD -[facility] Start: 11-13-2024 Non-patient / Non-visit Jules France [facility] Work Phone: Start: 11-13-2024 End: 11-13-2024 ambulatory BRIE MCKAY Facility:[id number] Start: 11-12-2024 Non-patient / Non-visit Delvin Carlos [facility] Work Phone: Start: 11-07-2024 ambulatory BRIE MCKAY Facility:[facility] [place] Start: 11-04-2024 Non-patient / Non-visit Vera Peace [facility] Work Phone: Start: 11-03-2024 End: 11-03-2024 ambulatory Cornelius Garrison MD Work Phone: [facility] Work Phone: Start: 11-03-2024 End: 11-03-2024 Departed Referred Cornelius Garrison MD -[facility] Start: 11-03-2024 Non-patient / Non-visit Carlin kumari MD -[facility] Work Phone: Start: 10-02-2024 Non-patient / Non-visit Vera Choudhary evelyn [facility] Work Phone: Start: 10-01-2024 End: 10-01-2024 Emergency department patient visit CORNELIUS GARRISON [facility] Start: 09-27-2024 End: 09-27-2024 Patient encounter procedure Cornelius Garrison MD -[facility] Work Phone: Start: 07-30-2024 End: 07-30-2024 ambulatory Cornelius Garrison MD Facility:[facility] Start: 07-22-2024 End: 07-22-2024 ambulatory [facility] Start: 07-08-2024 End: 07-08-2024 ambulatory Duong Oreilly MD Facility: [facility] Start: 06-26-2024 End: 06-26-2024 ambulatory Cornelius Garrison MD Work Phone: [facility] Work Phone: Start: 06-26-2024 End: 06-26-2024 Patient encounter procedure Cornelius Garrison MD Work Phone: [facility] Work Phone: Start: 06-17-2024 End: 06-17-2024 ambulatory Duong Oreilly MD Facility:[facility] Start: 06-06-2024 End: 06-06-2024 ambulatory Cornelius Garrison MD Facility:[facility] Start: 06-05-2024 End: 06-05-2024 Office outpatient [...] End: 05-13-2024 ambulatory Duong Oreilly MD Facility:[facility] [place] Start: 05-10-2024 ambulatory Cornelius Garrison MD Work Phone: [facility] Work Phone: Start: 05-10-2024 Non-patient / Non-visit Cornelius Garrison MD Work Phone: [facility] Work Phone: Start: 04-29-2024 End: 04-29-2024 ambulatory Duong Oreilly MD Facility:[facility] [place] Start: 04-22-2024 End: 04-22-2024 ambulatory Cornelius Garrison MD Work Phone: [facility] Work Phone: Start: 04-22-2024 End: 04-22-2024 Departed Referred Cornelius Garrison MD Work Phone: [facility] Start: 04-22-2024 End: 04-22-2024 ambulatory Cornelius Garrison MD Facility:[facility] [place] Start: 04-15-2024 End: 04-15-2024 ambulatory Cornelius Garrison MD Work Phone: [facility] Work Phone: Start: 04-15-2024 End: 04-15-2024 Patient encounter procedure Cornelius Garrison MD Work Phone: [facility] Work Phone: Start: 04-01-2024 End: [...] Phone: [facility] Work Phone: Start: 03-25-2024 End: 03-25-2024 ambulatory Cornelius Garrison MD Facility:[facility] Start: 03-21-2024 Non-patient / Non-visit Cornelius Garrison MD Work Phone: [facility] Work Phone: Start: 03-11-2024 End: 03-11-2024 Patient encounter procedure Cornelius Garrison MD Work Phone: [facility] Work Phone: Start: 03-04-2024 Non-patient / Non-visit Cornelius Garrison MD Work Phone: [facility] Work Phone: Start: 03-04-2024 End: 03-04-2024 Patient encounter procedure Cornelius Garrison MD Work Phone: [facility] Work Phone: Start: 03-04-2024 End: 03-04-2024 ambulatory Cornleius Garrison Facility[facility] Start: 02-23-2024 End: 02-23-2024 ambulatory Cornelius Garrison MD Facility:[facility] Start: 02-19-2024 End: 02-19-2024 ambulatory Cornelius Garrison MD Facility:[facility] Start: 02-13-2024 End: 02-13-2024 ambulatory Cornelius Garrison MD Facility:[facility] Start: 02-08-2024 End: 02-08-2024 ambulatory MD Cornelius Garrison Work Phone: [facility] Work Phone: Start: 02-08-2024 End: 02-08-2024 Patient encounter procedure MD Cornelius Garrison Work Phone: [facility] Work Phone: Start: 02-07-2024 Non-patient / Non-visit MD Mala Garrison Work Phone: [facility] Work Phone: Start: 02-01-2024 Non-patient / Non-visit Cornelius Garrison MD Work Phone: [facility] Work Phone: Start: 01-24-2024 End: 01-24-2024 ambulatory MD Cornelius Garrison Work Phone: [facility] Work Phone: Start: 01-24-2024 End: 01-24-2024 Patient encounter procedure MD Cornelius Garrison Work Phone: [facility] Work Phone: Start: 01-24-2024 End: 01-24-2024 Patient encounter procedure MD Cornelius Garrison Work Phone: [facility] Start: 01-24-2024 End: 01-24-2024 ambulatory MD Cornelius Garrison Work Phone: [facility] Work Phone: Start: 01-19-2024 Non-patient / Non-visit MD Mala Garrison Work Phone: [facility] Work Phone: Start: 01-19-2024 Non-patient / Non-visit MD Mala Garrison Work Phone: [facility] Work Phone: Start: 01-09-2024 End: 01-09-2024 ambulatory [facility] Work Phone: Start: 01-09-2024 End: 01-09-2024 Patient encounter procedure [facility] Work Phone: Start: 11-01-2023 End: 11-01-2023 ambulatory [facility] Work Phone: Start: 11-01-2023 End: 11-01-2023 Patient encounter procedure [facility] Work Phone: Start: 10-13-2023 End: 10-13-2023 ambulatory [facility] Work Phone: Start: 10-13-2023 End: 10-13-2023 Patient encounter procedure [facility] Work Phone: Start: 07-31-2023 End: 07-31-2023 ambulatory [facility] Work Phone: Start: 07-31-2023 End: 07-31-2023 Patient encounter procedure [facility] Work Phone: Start: 05-26-2023 Non-patient / Non-visit [facility] Work Phone: Start: 02-01-2022 End: 02-01-2022 Patient encounter procedure Mihaela CALVILLO [facility] Start: 01-13-2022 Encounter for preprocedural laboratory examination DR MIHAELA CALVILLO [facility] Start: 01-12-2022 End: 01-12-[address] CORNELIUS GARRISON Facility:[facility] Start: 01-10-2022 End: 01-11-[address] MIHAELA CALVILLO Facility:[facility] Start: 01-10-2022 End: 01-11-2022 Encounter for preprocedural laboratory examination DR MIHAELA CALVILLO Facility:[facility] Start: 12-22-2021 End: 12-22-2021 Patient encounter procedure Mihaela Miguel Angel NILL General Surgery [facility] Start: 12-17-2021 End: 12-18-[address] [...] Screening for malign ant neoplasm of colon [facility] Start: 06-10-2025 End: 06-10-2025 Patient encounter procedure 06/10/2025 8:45 AM EST Office Visit [facility] [address] [place] [id number] Geoff Walker, DO [address] [place] [address] [facility] Start: 12-02-2024 Bacteria identified in Urine by Culture [facility] Start: 12-02-2024 Urine culture [facility] Start: 11-03-2024 Bacteria identified in Urine by Culture U[facility] Start: 11-03-2024 Urine culture [facility] Start: 06-26-2024 Patient referral [facility] Work Phone: Start: 06-05-2024 End: 06-05-2024 Patient encounter procedure 06/05/2024 2:30 PM EST Office Visit [facility]AIN[facility] KENDALL [address] [place] [address] Geoff Walker, DO [address] [place] [address] Arrived ZAINAB KENDALL Comment on above: Arrived Start: 05-10-2024 Patient referral [facility] Work Phone: Start: 04-05-2024 Patient referral [facility] Work Phone: Start: 04-01-2024 End: 04-01-2024 Patient encounter procedure 04/01/2024 3:00 PM EST Procedure Visit [facility] [address] [place] [address] Kane Parker, [address] [place] [address] Arrived [facility] Comment on above: Arrived Start: 01-24-2024 X-ray of both knees, three views XR knee BI 3V - NOT FOR ER USE [facility] Start: 01-24-2024 XR Knee - bilateral 3 Views [facility] Start: 01-22-2024 Pneumococcal Vaccine : 65+ Years (1 of 1 - PCV) Pneumococcal Vaccine: 65+ Years (1 of 1 - PCV) [facility] Start: 01-10-2024 Patient referral [facility] Work Phone: Start: 12-10-2023 Influenza vaccination Influenza Vacc ine (#1) [facility] Start: 1999 Screening for malign ant neoplasm of breast Mammogram [facility] Start: 1989 Screening for malign ant neoplasm of cervix [facility] Start: 01-22-1980 Screening for malign ant neoplasm of cervix Pap Smear [facility] Start: 1959 Screening for malign ant neoplasm of colon [facility] CT Unspecified body region [facility] CT Unspecified body region [facility] DXA Skeletal system.axial Views for bone density [facility] Patient Education Low back pain in adults [facility] Work Phone: Patient referral [facility] Work Phone: Urine culture [facility] Lower extremity v ein - right [facility] US Thyroid gland [facility] Immunizations Immunization Date Immunization Notes Care Provider Fa cility 03-11-2024 diphtheria, tetanus toxoids and acellular pertussis vaccine, unspecified formulation Cornelius Garrison MD Work Phone: [facility] 03-29-2021 COVID-19 mRNA, Comirnaty (Pfizer) [facility] 08-11-2020 COVID-19 mRNA, Comirnaty (Pfizer) [facility] 07-21-2020 COVID-19 mRNA, Comirnaty (Pfizer) [facility] 10-07-2018 diphtheria, tetanus toxoids and acellular pertussis vaccine, unspecified formulation [facility] 02-05-2014 tetanus and diphther ia toxoids, adsorbed, preservative free, for adult use (5 Lf of tetanus toxoid and 2 Lf of diphtheria toxoid) [facility] Payers Date Payer Category Payer Private Health Insurance [id number] [address] mber [id number] 2024 Unknown [id number] 2024 Medicare [id number] 2024 Medicare [id number] 2023 Unknown 1959 Self-pay [id number] 1959 Unknown [id number] 2.16.840.1.583010.3.579.2 .593 1959 Unknown [id number] 2.16.840.1.928374.3.579.2 .593 1959 Unknown [id number] 2.16.840.1.240757.3.579.2 .1259 1959 Unknown [id number] 2.16.840.1.298905.3.579.2 .1259 1959 Unknown [id number] 2.16.840.1.962513.3.579.2 .196 1959 Unknown [id number] 2.16.840.1.568676.3.579.2 .196 1959 Unknown [id number] 2.16.840.1.729866.3.579.2 .196 1959 Unknown [id number] 2.16.840.1.376800.3.579.2 .196 1959 Unknown [id number] 2.16.840.1.303786.3.579.2 .196 1959 Unknown [id number] 2.16.840.1.371819.3.579.2 .196 1959 Unknown [id number] 2.16.840.1.087932.3.579.2 .196 1959 Unknown [id number] 2.16.840.1.854478.3.579.2 .196 1959 Unknown [id number] 2.16.840.1.419474.3.579.2 .196 1959 Unknown [id number] 2.16.840.1.899172.3.579.2 .196 1959 Unknown [id number] 2.16.840.1.432651.3.579.2 .196 1959 Unknown [id number] 2.16.840.1.572661.3.579.2 .196 1959 Unknown [id number] 2.16.840.1.598124.3.579.2 .1286 1959 Unknown [id number] 2.16.840.1.754429.3.579.2 .727 1959 Unknown [id number] 1960 Unknown [id number] 1960 Unknown [id number] 1960 Unknown [id number] Private Health Insurance [employer] [facility] G [id number] Unknown [id number] Unknown [id number] Unknown MMO [employer] [id number] Social History Date Type Detail Facility Start: 12-22-2021 End: 11-26-2024 Heavy tobacco smoker (finding) [facility] Start: 06-05-2024 Female General Love [facility] Start: 07-31-2023 End: 04-15-2024 Tobacco smoking status NHIS Smoker (finding) [facility] Start: 1960 Sex Assigned At Female F [facility] Tobacco smoking stat us PRIS Tobacco smoking consumption unknown [facility] Start: 1960 Sex assigned at Not on file [facility] Start: 06-21-2022 End: 04-15-2024 Sex Female (finding) [facility] Start: 06-05-2024 End: 11-04-2024 Tobacco smoking status PRIS Smokes tobacco daily [facility] History of tobacco use Cigarette Smoker [facility] Start: 06-05-2024 Tobacco use and exposure Smokeless tobacco non-user [facility] Start: 06-05-2024 Alcoholic beverage intake Ex-drinker (finding) [facility] Start: 06-05-2024 History of Social function [facility] Sexual Orientation [facility] Functional Status Date Assessment Result Facility 12-22-2021 N/A [facility] [place] Clinical Notes 01-12-2022 to 11-26-2024 Note Date [...] require a prescription. You can also purchase cjmt-xdy-zcgqabg medicines. Medicines may have nicotine in them [...] and encouragement. Call telephone quitlines, such as 0-592-EDSB-NOW, reach out to support groups, or work [...] provider. Document Revised: 03/18/2022 Document Reviewed: 03/18/2022 [employer] Patient Education 2023 [employer]. 11/26/2024 09:15:52 Bladder Cancer Bladder Cancer Bladder [...] cells. Follow these instructions at home: Take thea-qpr-gmyeiii and prescription medicines only as told by [...] is important. Where to find more information [place] [employer] Society (ACS): cancer.org National Cancer Reserve (NCI): cancer.gov Contact a health care provider [...] provider. Document Revised: 03/07/2022 Document Reviewed: 03/07/2022 [employer]a Patient Education 2023 [employer]. Follow Up Care 11/13/2024 13:19:08 With:BRIE MCKAY MD, URL Address: When: Unknown [facility] 11-26-2024 Note Patient Education Oncology Bladder Cancer [...] Follow these instructions at home: ??? Take uobe-uvh-wyfssla and prescription medicines only as told by [...] important. Where to find more information ??? [place] [employer] (ACS): cancer.org ??? National Cancer Reserve (NCI): cancer.gov Contact a health care provider [...] is n (more content not included)... [facility] 09-27-2024 Evaluation note Diagnosis Onset Date Resolution Gastroenteritis acute September 2:23pm Lumbar radiculopathy, chronic acute September 27, 2024 2:23pm [facility] Work Phone: 1(609) 868-404906-20-2025 Evaluation note* Diagnosis Onset Date Resolution Status Admit Date Gastroenteritis acute September 2:23pm Lumbar radiculopathy, chronic acute September 27, 2024 2:23pm Bladder mass acute November 15, 2024 2:27pm [facility] Work Phone: 1(519) 287-566906-20-2025 Evaluation note* Diagnosis Onset Date Resolution Status Admit Date Gastroenteritis acute September 2:23pm Lumbar radiculopathy, chronic acute September 27, 2024 2:23pm Bladder mass acute November 15, 2024 2:27pm Lumbar radiculopathy, chronic acute November 15, 2024 2:27pm Bladder cancer acute November 11:24am Febrile illness acute December 022024 11:24am Left flank pain acute December 022024 11:24am [facility] Work Phone: 1(973) 507-963802-26-2025 History of Present illness Narrative* Geoff Walker, DO - 06/05/2024 2:30 PM EST Subjective Patient ID: HPI 64-year-old female referred for a right thyroid mass. This was found during a workup for something else. Ultrasound was done showing a 2.8 cm inferior based right thyroid mass. FNA was performed which came back as [place] III, Afirma testing was then done showing [...] back in 1 year documented in this encounterKindred [id number] Hospital Discharge instructionsAmbulatory Orders* Referral to ENT Time Frame: 05/10/24, Location: [facility] Work Phone: 1(293) 971-590612-23-2024 History of Present illness Narrative* BRENDA Nuñez - 04/01/2024 3:00 PM EST Images from the original note were not included. Reason for Appointment: EMG Patient: Cristine Manley : 1960 EMG Computer: InstantQ Referring Physician: Ofelia Arceo PA-C EMG: MANISH learning technologies specialist: Daniel Dougherty RT(R) Office Location: [place] Reason for EMG: c/o numbness/tingling in bilateral [...] nature of the test. 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 acute April 15 3:12pm Moderate persistent asthma, uncomplicated acute April 15 3:12pm Lumbar radiculopathy, chronic acute June 26, 2024 8:28am [facility] Work Phone: 1(274) 150-154412-02-2024 Evaluation note* Diagnosis Onset Date Resolution Status [...] for lung cancer acute April 15 3:12pm 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 CC: Cornelius Garrison M.D.[facility] No data available for this section [facility] [place] Evaluation + Plan note Future Appointments Appointment Date:11/26/2024 08:45:00 AM Scheduled Provider:BRIE MCKAY MD Location:[facility] Appointment Type:URO Office Visit [facility] evaluation + Plan note Future Appointments Appointment Date:03/07/2025 09:00:00 AM Scheduled Provider: Location:[facility] Appointment Type:Urology CALL PAT FT Appointment Date:03/10/2025 01:00:00 PM Scheduled Provider: Location:[facility] Appointment Type:Urology FT [facility] Evaluation note* Diagnosis Onset Date Resolution Status Lumbar radiculopathy, chronic acute [facility] Work Phone: evaluation note* Diagnosis Onset Date Resolution Status Lumbar radiculopathy, chronic acute Headache acute Joint pain acute Tick bite acute [facility] Work Phone: evaluation note* Diagnosis Onset Date Resolution Status Headache acute Joint pain acute Tick bite acute Chronic obstructive pulmonary disease, unspecified acute Lumbar radiculopathy, chronic acute [facility] Work Phone: evaluation note* Diagnosis Onset Date Resolution Status Chronic obstructive pulmonary disease, unspecified acute Lumbar radiculopathy, chronic acute Bilateral knee pain acute COPD exacerbation acute Lumbar pain acute Lumbar radiculopathy, chronic acute Bilateral knee pain acute Primary osteoarthritis of both knees acute [facility] Work Phone: evaluation note* Diagnosis Onset Date Resolution Status Bilateral knee pain acute COPD exacerbation acute Lumbar pain acute Lumbar radiculopathy, chronic acute Bilateral knee pain acute Primary osteoarthritis of both knees acute Menopause acute [facility] Work Phone: Evaluation note* Diagnosis Lumbosacral radiculopathy- Primary Thoracic or lumbosacral neuritis or radiculitis, unspecified Numbness and tingling Disturbance of skin sensation documented in this encounter [facility] HealthcareEvaluation note* Diagnosis Thyroid nodule (CMS/HCC)- Primary Nontoxic uninodular goiter documented in this encounter [facility] No data available for this section [facility] [place] [facility] Discharge instructionsAmbulatory Orders* Referral to Orthopedics Time Frame: 06/26/24, Location: None [facility] Work Phone: Progress note No data available for this section [facility] [place] Reason for referral (narrative)No reason for referral information availableMemorial Hospital Work Phone: Rekbcc for visit Narrative* Other Medical (Routine) - Closed Specialty Diagnoses / Procedures Referred By Contac t Referred To Contact Neurology Diagnoses Neuralgia and neuritis, unspecified Procedures IL NEEDLE EMG EA EXTREMTY W/PARASPINL AREA COMPLETE IL NERVE CONDUCTION STUDIES 9-10 STUDIES Ofelia Arceo PA-C [address] [place] [address] Phone: tel: fax: Cecil Fields MD [address] [place] [address] Phone: tel: fax: Referral ID Status Reason Start Date Expiration Date V isits Requested Visits Authorized [id number] Closed Perform Procedure 03/27/2024 09/23/2024 1 1 [facility] Healthcare Summary Purpose Family History [...] Back & Knee Pain-HIGH RISK March 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 COPD April 15 [...] Back & Knee Pain-HIGH RISK March 8:45am 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 COPD April 15, [...] Back & Knee Pain-HIGH RISK March 8:45am 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 COPD April 15, [...] Back & Knee Pain-HIGH RISK March 8:45am 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 COPD April 15, [...] End: October 13, 2023 Brittanie Siu APRN T[employer] WAGON OPERATOR-Quoc Attending Provider Act onesimo Start: October 13, [...] Provider Active S tart: January 24, 2024 Elephant Tamer Relationship Specialty Start Date End Date Cornelius Garrison MD [address] [place] [address] PCP - General Family Medicine 03/27/24 Ofelia Arceo MD [address] [address] Referring Physician Internal Medicine 03/27/24 Elephant Tamer Relationship Specialty Start Date End Date Cornelius Garrison MD [address] [place] [address] PCP - General Family Medicine 03/27/24 Ofelia Arceo MD [address] [address] Referring Physician Internal Medicine 03/27/24 Elephant Tamer Relationship Specialty Start Date End Date Cornelius Garrison MD [address] [place] [address] PCP - General Family Medicine 03/27/24 Ofelia Arceo MD [address] [address] Referring Physician Internal Medicine 03/27/24 Geoff Walker DO [address] [place] [address] Otolaryngology 06/05/24 Elephant Tamer Relationship Specialty Start Date End Date Cornelius Garrison MD [address] [facility] [place] [address] PCP - General Family Medicine 03/27/24 Ofelia Arceo MD [address] [place] [address] Referring Physician Internal Medicine 03/27/24 Geoff Walker DO [address] [facility] [address] [place] [address] Otolaryngology 06/05/24 Team Status: Inactive Member Role [...] and content) DATE CREATED AUTHOR 04/01/2022 [facility] pital DATE CREATED AUTHOR AUTHOR'S ORGANIZ ATION 06/07/2024 [facility] DATE CREATED AUTHOR AUTHOR'S ORGANIZ ATION 08/01/2024 [facility] DATE CREATED AUTHOR AUTHOR'S ORGANIZ ATION 10/02/2024 [facility] DATE CREATED AUTHOR AUTHOR'S ORGANIZ ATION 11/28/2024 [facility] DATE CREATED AUTHOR AUTHOR'S ORGANIZ ATION 12/04/2024 [facility] ysician Group Goals (unrecognized section and [...] BE BASED ON THE PRIMARY CLINICAL RECORDS. [facility]. provides no warranty or guarantee of the accuracy or completeness of information in this document.
[2024-12-12 06:23] LABS: Band Neutrophils Absolute 0.0 10^3/uL (0.0-0.3); Basophils Abs Manual 0.15 10^3/uL (0.00-0.10); Basophils Percent Manual 1.0 % (0.2-2.0); Eosinophils Absolute Manual 0.00 10^3/uL (0.00-0.70); Eosinophils Percent Manual 0.0 % (0.9-7.0); Lymphocytes Absolute Manual 1.08 10^3/uL (1.20-3.80); Lymphocytes Percent Manual 7.0 % (20.5-60.0); Monocytes Absolute Manual 3.10 10^3/uL (0.30-0.80); Monocytes Percent Manual 20.0 % (1.7-12.0); Segmented Neut Absolute Manual 11.16 10^3/uL (1.4-6.5); Segmented Neutrophils % Manual 72.0 (43.0-75.0)
[2024-12-12 06:24] LABS: Giant Platelets 1+
[2024-12-12 06:25] LABS: Hypochromasia 2+; Polychromasia 1+; RBC Morphology ABNORMAL
[2024-12-12] MEDS: 0.9 % SODIUM CHLORIDE 1,000 ML 125 ML IV (06:38)
--- NOTE | 2024-12-12 07:52 | PC.NURSE ---
Offered to give pt her PRN Zanaflex for her muscle spasms/pain. Pt declined and wants to wait and see if the provider orders her different pain medication.
[2024-12-12] MEDS: PANTOPRAZOLE SODIUM 40 MG TABLET.DR PO (08:27)
[2024-12-12] MEDS: BUPROPION HCL 150 MG XL TABLET 24H 300 MG PO (08:27)
[2024-12-12] MEDS: ALBUTEROL SULFATE 2.5 MG/3 ML VIAL NEB IH (08:35)
[2024-12-12] MEDS: TIZANIDINE HCL 4 MG TABLET PO ×2 (09:22→21:53)
[2024-12-12] MEDS: HYDROCODONE/ACET 5-325 MG TABLET 1 TAB PO ×3 (09:22→21:53)
--- NOTE | 2024-12-12 10:00 | CM.NOTE ---
Rounds made with Dr. Mckeon, pt continues to c/o lower abdominal pain and L flank pain. Pt also has decreased appetite. Dr. Mckeon discussed diagnosis and plan of care with pt.
--- NOTE | 2024-12-12 10:22 | PM.IMHP1 ---
Internal Medicine - H&P: HPI History of Present Illness Chief complaint: abdominal and back pain Narrative: Miss Manley is a 64-year-old female with a past medical history notable for back pain, lumbar radiculopathy, COPD, and GERD who presents to hospital last night with a chief complaint of abdominal and back pain. The pain is started roughly 1 week prior if not before that, she had chills at home and also had a fever up to 103 degrees she said did see her primary issue and who started her on cefdinir which was confirmed in the full history on December 02. She did not notice any improvement in her pain and actually continued to feel worse. She also endorses changes in food texture, says that all her food tastes bland. She denies any nausea or vomiting diarrhea or constipation. Review of Systems ROS Status of ROS 10 or more systems reviewed and unremarkable except as noted in history and below [facility] Medical History (Updated 12/12/24 @ 10:27 by GENOVEVA DOBBS DO) Aspirin long-term use ?Z79.82 - [facility] (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 of aspirin (ICD-10) Persistent headaches ?R51.9 - Headache, unspecified (ICD-10) GERD (gastroesophageal reflux disease) ?K21.9 - Gastro-esophageal reflux disease without esophagitis (ICD-10) Gross hematuria ?R31.0 - Gross hematuria (ICD-10) Hematuria ?R31.9 - Hematuria, unspecified (ICD-10) Acute urinary retention ?R33.8 - Other retention of urine (ICD-10) Asthma ?J45.909 - Unspecified asthma, uncomplicated (ICD-10) Peptic ulcer ?K27.9 - Peptic ulcer, site unspecified, unspecified as acute or chronic, without hemorrhage or perforation (ICD-10) Lumbago ?M54.50 - Low back pain, unspecified (ICD-10) Cataract (lens) fragments in eye following cataract surgery ?H59.029 - Cataract (lens) fragments in eye following cataract surgery, unspecified eye (ICD-10) 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 (ICD-10) Surgical History History of detached retina repair ?Z98.890 - Other specified postprocedural states (ICD-10) ?Z86.69 - Personal history of other diseases of the nervous system and sense organs (ICD-10) H/O fine needle aspiration with imaging guidance ?Z98.890 - Other specified postprocedural states (ICD-10) Status post discectomy ?Z98.890 - Other specified postprocedural states (ICD-10) History of bunionectomy ?Z98.890 - Other specified postprocedural states (ICD-10) H/O bilateral oophorectomy ?Z90.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, bilateral (ICD-10) History of tonsillectomy ?Z90.89 - Acquired absence of other organs (ICD-10) Family History Father Cancer Mother Family history of diabetes mellitus Family history of hypertension Brother Family history of hypertension Brother Family history of hypertension Social History Smoking status: Current every day smoker Nicotine containing products detail: 1 pack per day smoker. NO ETOH at all. Highest level of school completed/degree received: some college, no degree Little interest or pleasure in doing things: not at all Feeling down, depressed, or hopeless: not at all Meds Home Medications and Allergies Home Medications ?Medication ?Instructions ?Recorded ?Confirmed ?Type albuterol sulfate 2.5 mg/3 mL 2.5 mg inhalation Q6H PRN 01/19/24 12/11/24 History (0.083 %) solution for nebulization shortness of breath or wheezing hydrocodone 5 mg-acetaminophen 325 1 tab PO Q8H 01/19/24 12/11/24 History mg tablet tizanidine 4 mg tablet 4 mg PO Q8H PRN muscle spasticity 01/19/24 12/11/24 History omeprazole 20 mg capsule,delayed 20 mg PO DAILY 02/01/24 12/11/24 History release fluticasone fur. 200 mcg-umeclid 1 inh inhalation DAILY 04/22/24 12/11/24 History 62.5 mcg-vilant 25 mcg inhalat.powder (Trelegy Ellipta) bupropion HCl 300 mg 24 hr tablet, 300 mg PO DAILY 09/30/24 12/11/24 History extended release acetaminophen 325 mg tablet 650 mg (2 x 325 mg) PO Q4H PRN 11/13/24 12/11/24 Rx (Tylenol) pain 30 days #180 tabs Allergies Allergy/AdvReac Type Severity Reaction Status Date / Time Sulfa (Sulfonamide Allergy Unknown Unknown Verified 11/12/24 03:34 Antibiotics) levofloxacin (From Levaquin) Allergy Rash Verified 11/12/24 03:34 acetaminophen (From Percocet) AdvReac Intermediate Vomiting Verified 11/12/24 03:34 oxycodone (From Percocet) AdvReac Intermediate Vomiting Verified 11/12/24 03:34 Exam Narrative Exam Narrative: General: Awake and alert, mild distress HEENT: Normocephalic, atraumatic, no scleral icterus noted Lungs: Clear to auscultation bilaterally Cardiac: Regular rate and rhythm, no murmurs appreciated Back: Left-sided costovertebral angle tenderness noted with percussion and palpation, this does radiate around her left flank and down into her suprapubic region GI: Soft, diffuse tenderness in her suprapubic region from left and right sides however it is concentrated in the mid region. Regular bowel sounds. Extremities: Active and passive range of motion intact throughout, no edema Neuro: Cranial nerves II through XII intact, no focal deficits noted Skin: No rashes or lesions, no signs of jaundice Constitutional Vital Signs, click to edit/add: Last Vital Signs Temp 99.4 F 12/12/24 08:20 Pulse 76 12/12/24 08:20 Resp 18 12/12/24 08:20 BP 141/93 H 12/12/24 08:20 Pulse Ox 91 L 12/12/24 08:42 O2 Del Method Room Air 12/12/24 08:42 Internal Medicine - H&P: Reslt Labs Labs: Short CBC 12/11/24 12/12/24 Range/Units 18:40 04:52 WBC 15.7 H 15.5 H (4.0-11.0) 10^3/uL Hgb 10.1 L 9.3 L (12.0-16.0) g/dL Hct 31.2 L 28.9 L (36.0-48.0) % Plt Count 529 H 489 H (150-450) 10^3/uL BMP 12/11/24 12/12/24 18:40 04:52 Sodium 142 142 Potassium 3.7 3.6 Chloride 104 104 Carbon Dioxide 27.5 27.6 BUN 13.0 9.0 Creatinine 0.96 0.62 Glucose 144 H 99 Calcium 8.7 8.3 L Liver Function 12/11/24 Range/Units 18:40 Total Bilirubin 0.2 (0.2-1.0) mg/dL AST 8 L (15-37) U/L ALT 15 (14-59) U/L Alkaline Phosphatase 90 (46-116) U/L Albumin 2.5 L (3.4-5.0) g/dL Urine 12/11/24 Range/Units 18:16 Urine Color Lt. yellow (YELLOW) Urine Clarity Clear (CLEAR) Urine pH 6.0 (5.0-9.0) Ur Specific [place] 1.010 (1.005-1.025) Urine Protein Trace (NEG/TRACE) mg/dL Urine Glucose (UA) Negative (NEGATIVE) mg/dL Assessment and Plan Assessment and Plan (1) Pyelonephritis: Assessment and Plan: ? Admit to the hospital, inpatient status with telemetry ? Blood cultures obtained in the emergency room ? Urinalysis consistent with infection ? Physical exam consistent with a diagnosis of pyelonephritis ?She did not necessarily meet the requirements for sepsis on admission though she was febrile at home with evidence of an infection, she did receive care per sepsis protocol in the emergency room. ? Continue IV fluids today, plan to DC this assuming she is tolerating food which as of now she is not eating much ? She failed outpatient cefdinir, continue Invanz 1 g every 24 hours. ? Follow blood cultures ? Encourage ambulation ? I will add on a CPK, her urinalysis was consistent with a large amount of blood though the RBCs were negative. ?Trend labs. (2) Acute left flank pain: Assessment and Plan: Secondary to pyelonephritis, see above (3) Urinary tract infection: Assessment and Plan: See above (4) Thoracic radiculopathy: Assessment and Plan: Continue her home medications (5) COPD (chronic obstructive pulmonary disease): Assessment and Plan: No medications, currently not in acute exacerbation Plan ? DVT prophylaxis addressed ? Regular diet, encourage oral intake ? Full code
[2024-12-12 10:31] LABS: Creatine Kinase 30 U/L (26-192)
[2024-12-12 11:06] LABS: SARS-CoV-2 Ag NEGATIVE (NEGATIVE)
[2024-12-12] MEDS: KETOROLAC TROMETHAMINE 30 MG/ML VIAL 15 MG IVP (18:38)
[2024-12-12] MEDS: ENOXAPARIN SODIUM 40 MG/0.4 ML SYRINGE SUBQ (21:54)
[2024-12-12] MEDS: ERTAPENEM SODIUM 1 GM in 0.9 % SODIUM CHLORIDE 50 ML IV (21:54)
[2024-12-13] VITALS (7 sets, daily range): BP systolic 90–132; BP diastolic 50–83; PULSE 57–70; TEMP 36.5–36.7; O2SAT 92–95
[2024-12-13] MEDS: KETOROLAC TROMETHAMINE 30 MG/ML VIAL 15 MG IVP ×2 (03:45→18:52)
[2024-12-13 05:32] LABS: Hematocrit 28.2 % (36.0-48.0); Hemoglobin 8.8 g/dL (12.0-16.0); Mean Corpuscular HGB Conc 31.2 g/dL (29.9-35.2); Mean Corpuscular Hemoglobin 27.6 pg (26.7-34.0); Mean Corpuscular Volume 88.4 fL (81.0-99.0); Platelet Count 405 10^3/uL (150-450); Red Blood Count 3.19 10^6/uL (4.20-5.40); White Blood Count 12.2 10^3/uL (4.0-11.0)
[2024-12-13 05:46] LABS: Anion Gap 11.1; Blood Urea Nitrogen 10.0 mg/dL (7.0-18.0); Calcium 8.5 mg/dL (8.5-10.1); Carbon Dioxide 27.6 mmol/L (21.0-32.0); Chloride 108 mmol/L (98-107); Estimated GFR (African America >60 (>=60 mL/min/1.73m^2); Estimated GFR (Non-African Ame >60 (>=60 mL/min/1.73m^2); Glucose 88 mg/dL (74-106); Magnesium 1.8 mg/dL (1.8-2.4); Potassium 3.7 mmol/L (3.5-5.1); Sodium 143 mmol/L (136-145)
[2024-12-13] MEDS: HYDROCODONE/ACET 5-325 MG TABLET 1 TAB PO ×3 (06:12→21:08)
[2024-12-13] MEDS: TIZANIDINE HCL 4 MG TABLET PO ×3 (06:15→21:09)
--- NOTE | 2024-12-13 08:40 | CM.NOTE ---
Rounds made with Dr. Mckeon, discussed plan of care with pt and change in antibiotic therapy. Dr. Mckeon also will consult urology for further recommendations.
[2024-12-13] MEDS: BUPROPION HCL 150 MG XL TABLET 24H 300 MG PO (08:43)
[2024-12-13] MEDS: VILANTEROL IH (08:43)
[2024-12-13] MEDS: FLUTICASONE FUROATE IH (08:43)
[2024-12-13] MEDS: PANTOPRAZOLE SODIUM 40 MG TABLET.DR PO (08:43)
[2024-12-13] MEDS: UMECLIDINIUM IH (08:43)
--- NOTE | 2024-12-13 08:46 | SWNOTE1 ---
Important Message from Medicare reviewed and discussed with patient. Pt. verbalized understanding and signed the form. Original given to patient and copy placed in patient?s chart. This was completed on 12/12/24.
--- NOTE | 2024-12-13 08:47 | SWNOTE1 ---
SW did meet with pt on 12/12/24 to discuss dc plans. Pt lives at home with her , he was in room as well. Pt is independent at home and does not have any services coming in. Pt voiced she has no anticipated discharge needs. SW to follow as needed.
--- NOTE | 2024-12-13 10:04 | P.CN_ITS ---
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 Mckay. Pt had virtual visit with PCP on 12/02/24 for reported high fevers 103F at home all weekend, headaches, dry heaves, malaise and left flank pain. Increased urinary frequency a few days prior. Urine was sent for culture and patient started on cefdinir. UCx grew pseudomonas UTI, sensitive to cefepime, fluoroquinolones, gentamicin and meropenem. Pt presented [facility] ER and admitted on 12/11/24 with worsening flank pain and subjective fevers. Workup revealed WBC 15.7, now 12.2, Cr wnl, UA mod leuks, WBCs and small bacteria. UCx pending, growing gram neg bacilli. BCx NGTD. Started on ertapenem. Urology consulted due to drop in hemoglobin from 10 on admission to 8.8, history of gross hematuria with recent TURBT and persistent UTI. CT AP does not show any acute or concerning findings. 5 mm right renal stone, non obstructing and actually within parenchyma. After discussion with hospitalist regarding outside culture, pt now on imipenem/cilastatin (based on hospital availability and pt allergies). Pt feeling better today, still with suprapubic radiating to back pain, and nausea. No fevers while here. Denies emesis, chills, dysuria, hematuria, urgency/frequency, or constipation. She does note feeling of incomplete bladder emptying, which she thinks is getting better. History of severe pyelonephritis in her 20s. Denies issues with retention or voiding in the past. 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 (ICD-10) Persistent headaches ?R51.9 - Headache, unspecified (ICD-10) GERD (gastroesophageal reflux disease) ?K21.9 - Gastro-esophageal reflux disease without esophagitis (ICD-10) Gross hematuria ?R31.0 - Gross hematuria (ICD-10) Hematuria ?R31.9 - Hematuria, unspecified (ICD-10) Acute urinary retention ?R33.8 - Other retention of urine (ICD-10) Asthma ?J45.909 - Unspecified asthma, uncomplicated (ICD-10) Peptic ulcer ?K27.9 - Peptic ulcer, site unspecified, unspecified as acute or chronic, without hemorrhage or perforation (ICD-10) Lumbago ?M54.50 - Low back pain, unspecified (ICD-10) Cataract (lens) fragments in eye following cataract surgery ?H59.029 - Cataract (lens) fragments in eye following cataract surgery, unspecified eye (ICD-10) 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 (ICD-10) Surgical History History of detached retina repair ?Z98.890 - Other specified postprocedural states (ICD-10) ?Z86.69 - Personal history of other diseases of the nervous system and sense organs (ICD-10) H/O fine needle aspiration with imaging guidance ?Z98.890 - Other specified postprocedural states (ICD-10) Status post discectomy ?Z98.890 - Other specified postprocedural states (ICD-10) History of bunionectomy ?Z98.890 - Other specified postprocedural states (ICD-10) H/O bilateral oophorectomy ?Z90.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, bilateral (ICD-10) History of tonsillectomy ?Z90.89 - Acquired absence of other organs (ICD-10) Family History Father Cancer Mother Family history of diabetes mellitus Family history of hypertension Brother Family history of hypertension Brother Family history of hypertension Social History Smoking status: Current every day smoker Nicotine containing products detail: 1 pack per day smoker. NO ETOH at all. Highest level of school completed/degree received: some college, no degree Little interest or pleasure in doing things: not at all Feeling down, depressed, or hopeless: not at all Meds Home Medications and Allergies Home Medications ?Medication ?Instructions ?Recorded ?Confirmed ?Type albuterol sulfate 2.5 mg/3 mL 2.5 mg inhalation Q6H UT N 01/19/24 12/11/24 History (0.083 %) solution for nebulization shortness of breat h or wheezing hydrocodone 5 mg-acetaminophen 325 1 tab PO Q8H 12/11/24 History mg tablet tizanidine 4 mg tablet 4 mg PO Q8H PRN muscle spast icity 01/19/24 12/11/24 History omeprazole 20 mg capsule,delayed 20 mg PO DAILY 12/11/24 History release fluticasone fur. 200 mcg-umeclid 1 inh inhalation LUKASZ Y 04/22/24 12/11/24 History 62.5 mcg-vilant 25 mcg inhalat.powder (Trelegy Ellipta) bupropion HCl 300 mg 24 hr tablet, 300 mg PO DAILY 12/11/24 History extended release acetaminophen 325 mg tablet 650 mg (2 x 325 mg) PO Q4H PRN 11/13/24 12/11/24 Rx (Tylenol) pain 30 days #180 tabs Allergies Allergy/AdvReac Type Severity Reaction Status Date / Time Sulfa (Sulfonamide Allergy Unknown Unknown Verified 11/12/24 03:34 Antibiotics) levofloxacin (From Levaquin) Allergy Rash Verified 11/12/24 03:34 acetaminophen (From Percocet) AdvReac Intermediate Vomiting Verified 11/12/24 03:34 oxycodone (From Percocet) AdvReac Intermediate Vomiting Verified 11/12/24 03:34 Exam Narrative Exam Narrative: No acute distress, appears nontoxic Nonlabored respirations, symmetric chest rise, on room air Normal rate and rhythm, no peripheral edema BL lower quadrant tenderness to palpation, non distended Suprapubic tenderness palpation, mid lower back L>R TTP, bladder non palpable Moves all extremities, no deformities Alert and oriented x 4, no acute focal deficits Skin dry, intact Appropriate, cooperative Constitutional Vital Signs, click to edit/add: Last Vital Signs Temp 97.7 F 12/13/24 07:51 Pulse 57 L 12/13/24 07:51 Resp 18 12/13/24 07:51 BP 90/50 12/13/24 07:51 Pulse Ox 95 12/13/24 07:51 O2 Del Method Room Air 12/13/24 07:51 Results Labs Labs: Short CBC 12/13/24 Range/Units 04:50 WBC 12.2 H (4.0-11.0) 10^3/uL Hgb 8.8 L (12.0-16.0) g/dL Hct 28.2 L (36.0-48.0) % Plt Count 405 (150-450) 10^3/uL BMP 12/13/24 04:50 Sodium 143 Potassium 3.7 Chloride 108 H Carbon Dioxide 27.6 BUN 10.0 Creatinine 0.81 Glucose 88 Calcium 8.5 Cardiac Enzymes 12/12/24 Range/Units 04:52 Total Creatine Kinase 30 (26-192) U/L Additional Findings Additional findings: 12/11/24 - CT AP w/ IV contrast reviewed as above Assessment and Plan Assessment and Plan (1) Pyelonephritis: (2) Acute left flank pain: (3) Urinary tract infection: (4) Anemia: Plan 64-year-old female with recently diagnosed 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 Keith Godfrey admitted with complicated UTI and pyelonephritis secondary to untreated pseudomonas UTI, and anemia. Discussed outside cultures and treatment with patient, leading to worsening of symptoms. Patient is now on appropriate treatment and should be getting better soon. Repeat urine culture pending, discussed how abx may change based on those results. Discussed potential for IV abx due to her allergies and limited PO options for pseudomonas. Pt without gross hematuria. Microhematuria expected in setting of infection, and does not cause anemia. Anemia unlikely due to urologic source that requires intervention. -Cont imipenem/cilastatin per outside cultures pending updated UCx from this stay. Recommend 10 day treatment. -Cont PO > IV hydration -Bladder scan to ensure emptying well, pt complaining of incomplete emptying. Insert [place] for PVR >200 cc for maximal decompression in setting of UTI and pyelonephritis -Follow up with Dr. Mack as scheduled for surveillance of bladder cancer
--- NOTE | 2024-12-13 10:53 | PM.PN ---
Progress Note: Subjective Subjective Interval history: Seen and evaluated this morning, she endorses feeling better. Her back pain is a little bit better though there is still some residual pain from admission. Did have a long discussion with her and her this morning regarding her cultures. She had a urine culture from [facility] showing that her urine grew Pseudomonas. She has an allergy to levofloxacin and we do not carry her cefepime in this hospital thus explained that she will be getting Primaxin and that her first dose of actual treatment for her infection will be today. Our cultures from this hospitalization remain pending. Also discussed this case with urology, she is well-known to them and in fact the urologist is the one who told me about her urine cultures this morning. Exam Narrative Exam Narrative: General: Awake and alert, no acute distress HEENT: Normocephalic, atraumatic, no scleral icterus noted Lungs: Clear to auscultation bilaterally Cardiac: Regular rate and rhythm, no murmurs appreciated GI: Soft, nontender, regular bowel sounds. Back: Some slight CVA tenderness noted, improvement admission Extremities: Active and passive range of motion intact throughout, no edema Neuro: Cranial nerves II through XII intact, no focal deficits noted Skin: No rashes or lesions, no signs of jaundice Constitutional Vital Signs, click to edit/add: Last Vital Signs Temp 97.7 F 12/13/24 07:51 Pulse 57 L 12/13/24 07:51 Resp 18 12/13/24 07:51 BP 90/50 12/13/24 07:51 Pulse Ox 95 12/13/24 07:51 O2 Del Method Room Air 12/13/24 07:51 Progress Note: Objective Labs Labs: Short CBC 12/13/24 Range/Units 04:50 WBC 12.2 H (4.0-11.0) 10^3/uL Hgb 8.8 L (12.0-16.0) g/dL Hct 28.2 L (36.0-48.0) % Plt Count 405 (150-450) 10^3/uL BMP 12/13/24 04:50 Sodium 143 Potassium 3.7 Chloride 108 H Carbon Dioxide 27.6 BUN 10.0 Creatinine 0.81 Glucose 88 Calcium 8.5 Progress Note: A&P Assessment and Plan (1) Pyelonephritis: Assessment and Plan: ? Her urine culture from [facility] grew Pseudomonas ? Allergy to Levaquin ? Discontinue Invanz, will initiate Primaxin today. Did discuss this with the pharmacy. We do not have cefepime here on formulary. I will forward the culture results to my partner who are taking over tomorrow ? Follow urine cultures, they are still pending as well as blood cultures (2) Acute left flank pain: Assessment and Plan: See above (3) Urinary tract infection: Assessment and Plan: See above (4) Thoracic radiculopathy: (5) COPD (chronic obstructive pulmonary disease): (6) Blood loss anemia: Assessment and Plan: ? She has known bladder cancer which was discovered at this hospital roughly 1 month ago, her baseline hemoglobin is 11-11.5, she has been steadily trending down. On admission here she was 10.1, there was blood in her urine however his CPK was normal, her hemoglobin has continued to trend down and is 8.8 this morning. She denies any carmina bright red blood in her urine, she has no issues with retention and denies any clots, will repeat urinalysis this morning and already did discuss her with urology who will evaluate her today. ? No need for CBI at this point in time. Plan ? DVT prophylaxis addressed ? Regular diet ? Full code
[2024-12-13] MEDS: IMIPENEM/CILASTATIN SODIUM 500 MG in 0.9 % SODIUM CHLORIDE 100 ML 200 MG IV ×2 (11:05→18:52)
[2024-12-13] MEDS: PNEUMOC 20-VAL CONJ-DIP CRM/PF 0.5 ML SYRINGE IM (11:06)
[2024-12-13 11:10] LABS: Glucose Urine UA NEGATIVE (NEGATIVE)
[2024-12-13] MEDS: 0.9 % SODIUM CHLORIDE 250 ML 10 ML IV (12:40)
--- NOTE | 2024-12-13 12:50 | CM.NOTE ---
Dr. Mckeon aware of positive urine gram negative bacilli, no organism yet.
[2024-12-13] MEDS: ALBUTEROL SULFATE 2.5 MG/3 ML VIAL NEB IH (14:01)
--- NOTE | 2024-12-13 18:48 | PC.NURSE ---
PVR 57ml
[2024-12-13] MEDS: ENOXAPARIN SODIUM 40 MG/0.4 ML SYRINGE SUBQ (21:09)
[2024-12-14] VITALS: BP 141/77; PULSE 67; TEMP 36.6; O2SAT 93
[2024-12-14] MEDS: KETOROLAC TROMETHAMINE 30 MG/ML VIAL 15 MG IVP (02:35)
[2024-12-14] MEDS: IMIPENEM/CILASTATIN SODIUM 500 MG in 0.9 % SODIUM CHLORIDE 100 ML 200 MG IV ×3 (02:37→18:31)
[2024-12-14 03:33] VITALS: BP 121/72; PULSE 62; O2SAT 92
[2024-12-14 05:12] LABS: Vitamin B12 486 pg/mL (232-1245)
[2024-12-14] MEDS: HYDROCODONE/ACET 5-325 MG TABLET 1 TAB PO ×3 (06:05→22:16)
[2024-12-14] MEDS: TIZANIDINE HCL 4 MG TABLET PO ×3 (06:07→22:16)
[2024-12-14 06:19] LABS: Hematocrit 29.3 % (36.0-48.0); Hemoglobin 9.5 g/dL (12.0-16.0); Mean Corpuscular HGB Conc 32.4 g/dL (29.9-35.2); Mean Corpuscular Hemoglobin 28.3 pg (26.7-34.0); Mean Corpuscular Volume 87.2 fL (81.0-99.0); Platelet Count 441 10^3/uL (150-450); Red Blood Count 3.36 10^6/uL (4.20-5.40); White Blood Count 11.3 10^3/uL (4.0-11.0)
[2024-12-14 06:27] LABS: Anion Gap 10.5; Blood Urea Nitrogen 8.0 mg/dL (7.0-18.0); Calcium 8.8 mg/dL (8.5-10.1); Carbon Dioxide 31.5 mmol/L (21.0-32.0); Chloride 108 mmol/L (98-107); Estimated GFR (African America >60 (>=60 mL/min/1.73m^2); Estimated GFR (Non-African Ame >60 (>=60 mL/min/1.73m^2); Glucose 84 mg/dL (74-106); Magnesium 1.7 mg/dL (1.8-2.4); Potassium 4.0 mmol/L (3.5-5.1); Sodium 146 mmol/L (136-145)
[2024-12-14 08:00] VITALS: BP 131/85; PULSE 63; TEMP 36.6; O2SAT 91
[2024-12-14] MEDS: PANTOPRAZOLE SODIUM 40 MG TABLET.DR PO (08:35)
[2024-12-14] MEDS: FLUTICASONE FUROATE IH (08:35)
[2024-12-14] MEDS: UMECLIDINIUM IH (08:35)
[2024-12-14] MEDS: BUPROPION HCL 150 MG XL TABLET 24H 300 MG PO (08:35)
[2024-12-14] MEDS: VILANTEROL IH (08:35)
[2024-12-14] MEDS: ALBUTEROL SULFATE 2.5 MG/3 ML VIAL NEB IH ×2 (10:44→18:22)
[2024-12-14 10:45] VITALS: PULSE 79; O2SAT 97
--- NOTE | 2024-12-14 11:56 | PM.PN ---
Progress Note: Subjective Subjective Interval history: This patient is known to me from when I admitted her here to [facility] about a month ago when she had gross hematuria and the next day urology did excise a bladder tumor. Today the patient is accompanied in the room by her and a friend. The patient really wants to go home. Today is a Monday. I told her that she must stay in the hospital until Monday. She is frustrated by this but did understand the medical explanation. The patient says that she is improving a little bit every day. She has less abdominal pain she has less nausea. The flank pain seems to be better. She says that she is voiding urine pretty well. No chest pain. No shortness of breath. No headache. The patient discussed her allergies. It sounds like she does have a bad allergy to Levaquin. This was done many years ago when she was having spine problems. They were treating her empirically for possible urinary tract infection. She says that she got redness around her mouth and redness all over her skin. She was advised not to take any Levaquin or any elías quinolones and was told that if she got anthrax it would be better to from anthrax then to take the antibiotic. She also has an allergy to sulfa. I have the urine culture results, not from the computer system here in [place] but sent over to me from [facility]. The only antibiotics that would work on this are amikacin, cefepime, ceftazidime/avibactam, ceftaroline/tazobactam, gentamicin, Levaquin, meropenem, and tobramycin. So with her fairly alarming allergy to Levaquin and all fluoroquinolones the only option she had is IV antibiotic therapy. I did explain this to the patient and her family members in general and in layman's terms. She will need 10 days of antibiotic therapy so ideally on Monday she can get a midline infusion catheter placed and then have case management work with her insurance company to find out if home health would be able to do the antibiotics or if she would need to come to the infusion center. Exam Narrative Exam Narrative: General: Reclining in bed. Cardiac: Regular rate rhythm with no murmurs. Pulmonary: Clear to auscultation throughout. No wheezing. No rhonchi. No crackles. GI: Normal bowel sounds to auscultation. Moderately discomfort over the bladder. But the patient reports that this is much improved. Skin: Warm and dry and well-perfused. Constitutional Vital Signs, click to edit/add: Last Vital Signs Temp 97.9 F 12/14/24 08:00 Pulse 79 12/14/24 10:45 Resp 18 12/14/24 08:00 BP 131/85 12/14/24 08:00 Pulse Ox 97 12/14/24 10:45 O2 Del Method Room Air 12/14/24 10:45 Progress Note: Objective Labs Labs: Short CBC 12/14/24 Range/Units 06:03 WBC 11.3 H (4.0-11.0) 10^3/uL Hgb 9.5 L (12.0-16.0) g/dL Hct 29.3 L (36.0-48.0) % Plt Count 441 (150-450) 10^3/uL BMP 12/14/24 06:03 Sodium 146 H Potassium 4.0 Chloride 108 H Carbon Dioxide 31.5 BUN 8.0 Creatinine 0.71 Glucose 84 Calcium 8.8 Progress Note: A&P Assessment and Plan (1) Pyelonephritis: (2) Acute left flank pain: (3) Urinary tract infection: Qualifiers: Urinary tract infection type: acute pyelonephritis Qualified Code(s): N10 - Acute pyelonephritis (4) Anemia: Qualifiers: Anemia type: other cause Other causes of anemia: other cause, not classified Qualified Code(s): D64.89 - Other specified anemias Plan Assessment: Acute pyelonephritis. Acute bacterial cystitis, due to: Complicated bacterial urinary tract infection with Pseudomonas aeruginosa. Strong patient allergy to Levaquin and fluoroquinolones. Only option to treat this bacterial infection is IV antibiotics. Long-term medical problems: Thoracic radiculopathy. Plans to have surgery in the month of February. COPD. Currently this is stable. Anemia due to chronic blood loss and blood loss from previous bladder cancer. Plan: Continue stay in the hospital. Continue Primaxin. Ideally on the outpatient basis this could be treated with cefepime or meropenem. A third line option would be IV or ertapenem if needed for infusion center or home health convenience. Recheck labs tomorrow morning.
[2024-12-14 18:22] VITALS: PULSE 69; O2SAT 94
[2024-12-14] MEDS: 0.9 % SODIUM CHLORIDE 250 ML 10 ML IV (18:31)
[2024-12-14] MEDS: ACETAMINOPHEN 325 MG TABLET 650 MG PO (18:33)
[2024-12-14 19:41] VITALS: BP 132/80; PULSE 75; TEMP 36.7; O2SAT 96
[2024-12-14] MEDS: ENOXAPARIN SODIUM 40 MG/0.4 ML SYRINGE SUBQ (22:16)
[2024-12-15] VITALS (8 sets, daily range): BP systolic 90–161; BP diastolic 54–99; PULSE 64–85; TEMP 36.6–36.8; O2SAT 91–98
[2024-12-15] MEDS: ACETAMINOPHEN 325 MG TABLET 650 MG PO (02:44)
[2024-12-15] MEDS: IMIPENEM/CILASTATIN SODIUM 500 MG in 0.9 % SODIUM CHLORIDE 100 ML 200 MG IV ×3 (02:44→18:14)
[2024-12-15] MEDS: HYDROCODONE/ACET 5-325 MG TABLET 1 TAB PO ×3 (05:55→22:00)
[2024-12-15] MEDS: TIZANIDINE HCL 4 MG TABLET PO ×3 (05:55→22:02)
[2024-12-15 06:51] LABS: Hematocrit 31.7 % (36.0-48.0); Hemoglobin 10.1 g/dL (12.0-16.0); Immature Granulocytes Abs Auto 0.04 10^3/uL (0.00-0.03); Immature Granulocytes Pct Auto 0.4 % (0.0-0.5); Lymphocytes Absolute Auto 2.0 10^3/uL (1.2-3.8); Mean Corpuscular HGB Conc 31.9 g/dL (29.9-35.2); Mean Corpuscular Hemoglobin 27.7 pg (26.7-34.0); Mean Corpuscular Volume 87.1 fL (81.0-99.0); Platelet Count 506 10^3/uL (150-450); Red Blood Count 3.64 10^6/uL (4.20-5.40); White Blood Count 11.1 10^3/uL (4.0-11.0)
[2024-12-15 07:00] LABS: Anion Gap 12.0; Blood Urea Nitrogen 7.0 mg/dL (7.0-18.0); Calcium 9.3 mg/dL (8.5-10.1); Carbon Dioxide 31.0 mmol/L (21.0-32.0); Chloride 105 mmol/L (98-107); Estimated GFR (African America >60 (>=60 mL/min/1.73m^2); Estimated GFR (Non-African Ame >60 (>=60 mL/min/1.73m^2); Glucose 83 mg/dL (74-106); Potassium 4.0 mmol/L (3.5-5.1); Sodium 144 mmol/L (136-145)
[2024-12-15] MEDS: BUPROPION HCL 150 MG XL TABLET 24H 300 MG PO (08:25)
[2024-12-15] MEDS: PANTOPRAZOLE SODIUM 40 MG TABLET.DR PO (08:26)
[2024-12-15] MEDS: UMECLIDINIUM IH (10:03)
[2024-12-15] MEDS: VILANTEROL IH (10:03)
[2024-12-15] MEDS: FLUTICASONE FUROATE IH (10:03)
[2024-12-15] MEDS: ALBUTEROL SULFATE 2.5 MG/3 ML VIAL NEB IH (11:24)
[2024-12-15] MEDS: SENNOSIDES 8.6 MG TABLET PO (14:11)
--- NOTE | 2024-12-15 14:19 | P.PN_ITS ---
Progress Note: Subjective Subjective Interval history: Today the patient says she continues to feel better. She is having limited nausea. She has not had a bowel movement in a few days. She explains that she normally drinks at least 8 ounces of prune juice at home to help her move her bowels. She is drinking some prune juice now. She says that she is passing urine well. No blood in the urine. No purulence in the urine. The urine continues to clear up. No other complaints at this time. No headache. No lightheadedness. No dizziness. No chest pain. No shortness of breath or cough. We once again discussed the plan which I think would include ideally a midline catheter and IV cefepime, most likely through home health services. This will have to be determined on Monday when case management is present to run this through her insurance and find out exactly how things might go. I told the pa osmin an alternative would be that she would go to the wound care center and she could get ertapenem daily but I think that ertapenem is much stronger and broader antibiotic than she really needs for her Pseudomonas UTI. I recommended that the patient use a good multivitamin (a women's multivitamin with iron) at home to help her heal up before she gets her spine surgery in February. She does have iron deficiency and anemia, likely from how bad her hematuria was from the bladder cancer last month. 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 Exam Narrative Exam Narrative: General: Awake and alert and oriented x 3. Sitting in a chair. Pulmonary: Clear to auscultation throughout. No wheezing. Cardiac: Regular rate and rhythm. No murmurs to auscultation. GI: Abdomen soft, normal bowel sounds to auscultation. Constitutional Vital Signs, click to edit/add: Last Vital Signs Temp 97.9 F 12/15/24 08:00 Pulse 64 12/15/24 11:25 Resp 18 12/15/24 08:00 BP 90/54 12/15/24 08:00 Pulse Ox 98 12/15/24 11:25 O2 Del Method Room Air 12/15/24 11:25 Progress Note: Objective Labs Labs: Short CBC 12/15/24 Range/Units 05:54 WBC 11.1 H (4.0-11.0) 10^3/uL Hgb 10.1 L (12.0-16.0) g/dL Hct 31.7 L (36.0-48.0) % Plt Count 506 H (150-450) 10^3/uL BMP 12/15/24 05:54 Sodium 144 Potassium 4.0 Chloride 105 Carbon Dioxide 31.0 BUN 7.0 Creatinine 0.82 Glucose 83 Calcium 9.3 Progress Note: A&P Assessment and Plan (1) Pyelonephritis: (2) Acute left flank pain: (3) Urinary tract infection: Qualifiers: Urinary tract infection type: acute pyelonephritis Qualified Code(s): N10 - Acute pyelonephritis (4) Anemia: Qualifiers: Anemia type: other cause Other causes of anemia: other cause, not classified Qualified Code(s): D64.89 - Other specified anemias Plan Assessment: Acute pyelonephritis. Acute bacterial cystitis, due to: Complicated bacterial urinary tract infection with Pseudomonas aeruginosa. Strong patient allergy to Levaquin and fluoroquinolones. Only option to treat this bacterial infection is IV antibiotics. Long-term medical problems: Thoracic radiculopathy. Plans to have surgery in the month of February. COPD. Currently this is stable. Anemia due to chronic blood loss and blood loss from previous bladder cancer. Bladder cancer, excised here a month ago on 11/12/2024 during a TURBT showing a papillary low-grade urothelial bladder cancer. Plan: Continue stay in the hospital. Continue IV Primaxin. Ideally on the outpatient basis this could be treated with cefepime or meropenem. A third line option would be IV or ertapenem if needed for infusion center or home health convenience. Patient is drinking prune juice. Senna as needed for additional constipation. Further care will be provided by my hospitalist colleague taking over tomorrow on Monday.
[2024-12-15] MEDS: ENOXAPARIN SODIUM 40 MG/0.4 ML SYRINGE SUBQ (22:00)
[2024-12-16 00:22] VITALS: BP 112/71; PULSE 68; TEMP 36.6; O2SAT 92
[2024-12-16] MEDS: ACETAMINOPHEN 325 MG TABLET 650 MG PO (01:20)
[2024-12-16] MEDS: 0.9 % SODIUM CHLORIDE 250 ML 10 ML IV (03:08)
[2024-12-16] MEDS: IMIPENEM/CILASTATIN SODIUM 500 MG in 0.9 % SODIUM CHLORIDE 100 ML 200 MG IV ×2 (03:38→10:00)
[2024-12-16 04:45] VITALS: BP 141/84; PULSE 62; TEMP 36.7; O2SAT 92
[2024-12-16 05:13] VITALS: PULSE 63; O2SAT 95
[2024-12-16] MEDS: ALBUTEROL SULFATE 2.5 MG/3 ML VIAL NEB IH ×2 (05:13→13:30)
[2024-12-16] MEDS: TIZANIDINE HCL 4 MG TABLET PO ×3 (06:36→22:30)
[2024-12-16] MEDS: HYDROCODONE/ACET 5-325 MG TABLET 1 TAB PO ×3 (06:36→21:35)
--- NOTE | 2024-12-16 08:08 | PM.PN ---
Progress Note: Subjective Subjective Interval history: Patient is feeling better and requesting to be discharged home. No abdominal pain. No nausea or vomiting. No dysuria. No frequency of urination. No hematuria Exam Narrative Exam Narrative: [pt is awake and alert. oriented to place, time and person HEENT: [place] conjunctiva and NL buccal mucosa Neck: Supple, no tenderness Endocrine: No Thyromegaly. Vascular: No JVD or carotid bruit. Lymphatic: No cervical lymphadenopathy. Chest: CTA no DTP. Heart RRR, no extra sound or murmur. Abd: Soft, no tenderness, no rebound and no rigidity. Increase abd girth therefore clinically I could not exclude the possibility of intra abd mass or organomegaly. LE: No cyanosis or clubbing, no varices or edema. Neuro: A A O. Nl speech, comprehension and attention. Nl and symetrical motor and tone examination through out. []] Constitutional Vital Signs, click to edit/add: Last Vital Signs Temp 98.1 F 12/16/24 04:45 Pulse 63 12/16/24 05:13 Resp 16 12/16/24 05:13 BP 141/84 12/16/24 04:45 Pulse Ox 95 12/16/24 05:13 O2 Del Method Room Air 12/16/24 05:13 Progress Note: A&P Assessment and Plan (1) Pyelonephritis: (2) Acute left flank pain: (3) Urinary tract infection: Qualifiers: Urinary tract infection type: acute pyelonephritis Qualified Code(s): N10 - Acute pyelonephritis (4) Anemia: Qualifiers: Anemia type: other cause Other causes of anemia: other cause, not classified Qualified Code(s): D64.89 - Other specified anemias Plan Pseudomonas cystitis Patient had received 4 days of intravenous Primaxin. Patient is allergic to Levaquin. She develops rash. I discussed options with the patient including the discharge on IV antibiotic, staying in the hospital and IV antibiotic versus trial of Cipro to see if she would develop any reaction. The plan is to proceed with oral Cipro for 24 hours and monitor for any reaction. History of bladder CVA. Patient is to follow-up with urology Anemia, no evidence of acute blood loss. Patient will likely require to have anemia workup to be done in the outpatient setting to be handled by PCP in collaboration with other needed outpatient providers. This may include but not limited to EGD, colonoscopy, referral to see hematology and other needed age-appropriate cancer screening. COPD, no exacerbation Chronic medical conditions not listed above, incidental findings seen on labs and imaging. These would need to be addressed. Could be addressed when time and condition are appropriate. Could be addressed in the outpatient setting by PCP collaboration with other needed outpatient providers.
--- NOTE | 2024-12-16 08:09 | CM.NOTE ---
Rounds made with Dr. Gonsalves, discussed plan of care with pt. Pt will start on P.O antibiotic today and discharge to home tomorrow.
[2024-12-16 08:45] VITALS: BP 135/85; PULSE 73; TEMP 36.7; O2SAT 96
[2024-12-16] MEDS: PANTOPRAZOLE SODIUM 40 MG TABLET.DR PO (08:46)
[2024-12-16] MEDS: BUPROPION HCL 150 MG XL TABLET 24H 300 MG PO (08:46)
[2024-12-16] MEDS: CIPROFLOXACIN HCL 500 MG TABLET PO ×2 (08:46→21:35)
[2024-12-16] MEDS: FLUTICASONE FUROATE IH (09:06)
[2024-12-16] MEDS: UMECLIDINIUM IH (09:06)
[2024-12-16] MEDS: VILANTEROL IH (09:06)
[2024-12-16 16:34] VITALS: BP 132/78; PULSE 72; TEMP 36.8; O2SAT 93
[2024-12-16 20:00] VITALS: BP 101/63; PULSE 70; TEMP 36.8; O2SAT 93
[2024-12-16] MEDS: ENOXAPARIN SODIUM 40 MG/0.4 ML SYRINGE SUBQ (21:35)
[2024-12-17] VITALS: BP 109/71; PULSE 57; TEMP 36.6; O2SAT 95
[2024-12-17] MEDS: ACETAMINOPHEN 325 MG TABLET 650 MG PO (03:10)
[2024-12-17 03:11] VITALS: BP 121/73; PULSE 60; TEMP 36.4; O2SAT 94
[2024-12-17] MEDS: TIZANIDINE HCL 4 MG TABLET PO (06:32)
[2024-12-17] MEDS: HYDROCODONE/ACET 5-325 MG TABLET 1 TAB PO (06:32)
[2024-12-17 07:38] VITALS: BP 106/74; PULSE 56; TEMP 36.7; O2SAT 96
[2024-12-17] MEDS: ALBUTEROL SULFATE 2.5 MG/3 ML VIAL NEB IH (08:06)
[2024-12-17] MEDS: FLUTICASONE FUROATE IH (08:48)
[2024-12-17] MEDS: UMECLIDINIUM IH (08:48)
[2024-12-17] MEDS: CIPROFLOXACIN HCL 500 MG TABLET PO (08:48)
[2024-12-17] MEDS: BUPROPION HCL 150 MG XL TABLET 24H 300 MG PO (08:48)
[2024-12-17] MEDS: PANTOPRAZOLE SODIUM 40 MG TABLET.DR PO (08:48)
[2024-12-17] MEDS: VILANTEROL IH (08:48)
--- NOTE | 2024-12-17 08:57 | SWNOTE1 ---
2nd notice of IMM provided and reviewed with pt. No questions at this time.
--- NOTE | 2024-12-17 09:00 | CM.NOTE ---
Rounds made with Dr. Gonsalves, pt will discharge today on oral cipro. Pt will f/u with urologist and PCP, appointments will be scheduled prior to pt's discahrge.
--- NOTE | 2024-12-17 09:41 | P.DS_ITS ---
DS: Providers Provider Date of admission: 12/11/24 20:56 Primary care physician: Celia Blank MD Consults: 12/11/24 Consult to Dietitian Routine Reason for consultation: protocol for admission assessment with change of appetite Has provider been notified: No 12/13/24 08:47 Consult to Urology Routine Consulting Provider: Aubree Perez Reason for consultation: hematuria DS: Diagnosis Discharge Diagnosis (1) Pyelonephritis: (2) Acute left flank pain: (3) Urinary tract infection: Qualifiers: Urinary tract infection type: acute pyelonephritis Qualified Code(s): N10 - Acute pyelonephritis (4) Anemia: Qualifiers: Anemia type: other cause Other causes of anemia: other cause, not classified Qualified Code(s): D64.89 - Other specified anemias (5) Pseudomonas aeruginosa infection: Plan As listed above, below and others that are not listed DS: Summary Hospital Course Hospital Course: Mrs. Manley is a 64-year-old female who came in with flank pain and was found to have the following Pseudomonas cystitis and pyelonephritis Patient had received 4 days of intravenous Primaxin. Patient is allergic to Levaquin. She develops rash. Patient has received 3 doses of Cipro orally without any adverse reaction. Patient will be discharged on Cipro floxacillin 500 mg twice a day for 6 days. That will complete 10 days of antibiotic course. History of bladder CVA. Patient is to follow-up with urology Anemia, no evidence of acute blood loss. Patient will likely require to have anemia workup to be done in the outpatient setting to be handled by PCP in collaboration with other needed outpatient providers. This may include but not limited to EGD, colonoscopy, referral to see hematology and other needed age-appropriate cancer screening. COPD, no exacerbation Chronic medical conditions not listed above, incidental findings seen on labs and imaging. These would need to be addressed. Could be addressed when time and condition are appropriate. Could be addressed in the outpatient setting by PCP collaboration with other needed outpatient providers. Patient has multiple medical issues as listed above and others that are not listed. All appear to be stable. I do not have any clear or strong clinical justification to extend inpatient hospitalization. Patient however will require close and frequent monitoring as well as additional work-up, investigation and therapeutic intervention that could take place from this point on post discharge. That is to prevent relapse, decompensation, rehospitalization and other medical implications. I instructed patient to ask her primary care doctor to obtain [facility] record entirely to address abnormalities seen on labs and imaging that I have and have not addressed during this hospitalization, follow-up on pending blood work, imaging and pathology is if available and to follow-up on needed medical care in the outpatient setting. Time Spent with Patient Time attestation: Total time spent providing and/or coordinating discharge services: Exam Narrative Exam Narrative: [pt is awake and alert. oriented to place, time and person HEENT: [place] conjunctiva and NL buccal mucosa Neck: Supple, no tenderness Endocrine: No Thyromegaly. Vascular: No JVD or carotid bruit. Lymphatic: No cervical lymphadenopathy. Chest: CTA no DTP. Heart RRR, no extra sound or murmur. Abd: Soft, no tenderness, no rebound and no rigidity. Increase abd girth therefore clinically I could not exclude the possibility of intra abd mass or organomegaly. LE: No cyanosis or clubbing, no varices or edema. Neuro: A A O. Nl speech, comprehension and attention. Nl and symetrical motor and tone examination through out. []] Constitutional Vital Signs, click to edit/add: Last Vital Signs Temp 98.1 F 12/17/24 07:38 Pulse 56 L 12/17/24 07:38 Resp 18 12/17/24 07:38 BP 106/74 12/17/24 07:38 Pulse Ox 96 12/17/24 07:38 O2 Del Method Room Air 12/17/24 08:06 DS: Data Data Completed and Pending Labs on day of discharge: Preliminary micro results at discharge 12/11/24 19:57 Blood Culture Result 2 - Preliminary Blood - Left Antecubital NO GROWTH AT 36-48 HOURS. FINAL TO FOLLOW. 12/11/24 20:07 Blood Culture Result 1 - Preliminary Blood - Right Forearm NO GROWTH AT 36-48 HOURS. FINAL TO FOLLOW. 12/11/24 18:16 Urine Culture - Preliminary Urine,Clean Catch Pending - Specimen sent to [facility] Discharge Plan Discharge Disposition: Home, Self-Care Condition: Good Discharge Medications: New ciprofloxacin HCl 500 mg Tablet 500 mg PO BID Qty: 12 0RF Continued albuterol sulfate 2.5 mg /3 mL (0.083 %) solution for nebulization 2.5 mg inhalation Q6H PRN (Reason: shortness of breath or wheezing) hydrocodone-acetaminophen 5-325 mg tablet 1 tab PO Q8H Trelegy Ellipta 200-62.5-25 mcg blister with device 1 inh INHALATION DAILY acetaminophen [Tylenol] 325 mg Tablet 650 mg PO Q4H PRN (Reason: pain) 30 Days Qty: 180 0RF omeprazole 20 mg capsule,delayed release(DR/EC) 20 mg PO DAILY bupropion HCl 300 mg tablet extended release 24 hr 300 mg PO DAILY Held tizanidine 4 mg tablet 4 mg PO Q8H PRN (Reason: muscle spasticity) Hold Instructions: Resume on 12/25/24. Print Language: Hungarian Activity Restrictions/Additional Instructions: I may not have addressed or treated all of your medical illnesses or the abnormal blood work or imaging studies during this hospitalization. Please ask your primary care provider to obtain [facility] records entirely to follow up on all of the abnormal physical, laboratory, and imaging findings that I have not addressed. Please return back to the emergency room or seek medical attention if your symptoms worsen or return. Discharging you from [facility] does not mean that your medical care ends here and now. You may still need additional monitoring, work up, investigation, and treatment plan to be handled from this point on by out patient providers including your primary care provider and specialists. For any medication question, please contact your retail pharmacist or your primary care provider. Thank you. Forms: Portal Instructions Referrals: Celia Blank MD [Primary Care Provider, Family Practice] Rehan Mckay MD [Physician, Urology]
--- NOTE | 2024-12-17 16:05 | NUTR.NU ---
Diet consult completed. Pt states she has lost 17# x 1-3 months (she cannot remember exactly) d/t experiencing ?food poisoning? (campylobacter infection) ~2 months ago, which resulted in food tasting ?extremely burned,? and current UTI/renal infection which made food taste bitter. PO intakes are good in-house, averaging 79%. Recommended she try Mrs. Mondragon blends to add flavor to foods without adding salt. Provided list of iron-rich foods d/t anemia, Ensure coupons, and ?Planning Healthy Meals? handout. Also provided Dietitian contact information for any questions or concerns. Will continue to follow PRN.
--- NOTE | 2024-12-18 15:02 | CM.DCFOLLOWU ---
Person spoke with:patient How are you feeling? feeling very well How is your pain? none Did you understand your discharge instructions? yes Do you have any questions about your discharge instructions? no Were you given any prescriptions at discharge?yes Were you able to get your prescriptions filled?yes Do you understand how to take your medications as ordered?yes Do you have any questions about your follow up appointment and do you plan to keep your follow up appointment? no questions, reviewed follow up apts with patient Is there anything else that you would like to discuss? no Questions/Comments/Concerns/Other:none
== END 2024-12-17 11:33 | disposition home or self-care (01) | DRG 690 ==
LOC: ER 20:15 → MS 22:15
PROVIDERS: Hospitalist; Internal Medicine; Student in an Organized Health Care Education/Training Program; Admitting Provider Internal Medicine; Emergency Provider Emergency Medicine; PCP Family Medicine; Visit Provider Internal Medicine
DX: N10 Acute pyelonephritis (principal); N30.00 Acute cystitis without hematuria; R10.9 Unspecified abdominal pain; M54.14 Radiculopathy, thoracic region; J44.9 Chronic obstructive pulmonary disease, unspecified; C67.9 Malignant neoplasm of bladder, unspecified; K21.9 Gastro-esophageal reflux disease without esophagitis; Z87.440 Personal history of urinary (tract) infections; D50.0 Iron deficiency anemia secondary to blood loss (chronic); Z88.1 Allergy status to other antibiotic agents; D64.89 Other specified anemias; B96.5 Pseudomonas (aeruginosa) (mallei) (pseudomallei) as the cause of diseases classified elsewhere; R11.0 Nausea; Z90.722 Acquired absence of ovaries, bilateral; M54.16 Radiculopathy, lumbar region; N20.0 Calculus of kidney; F17.200 Nicotine dependence, unspecified, uncomplicated
CPT/HCPCS: 36415; 51798; 74177; 80048; 80053; 81001; 81003; 82550; 82607; 83605; 83735; 85007; 85025; 85027; 87040; 87086; 87088; 87186; 87811; 90677; 94640; 96365; 96367; 96375; 99285; 99406; J0696; J0743; J1335; J1650; J1885; J2405; Q0162; Q9967

== ENCOUNTER 2025-02-03 07:31 | Outpatient (OUT) | payer MEDICARE, OTHER, SELFPAY ==
--- OUTSIDE RECORDS SUMMARY | 2024-10-29 03:30 | XMS_ITS ---
Author Organization [facility] in [place] Address [address] [place] [address] Care Team Providers Care Salesperson Pianos And Organs Name Role Phone Celia Blank Primary Care Provider Scott Cramer [phone] REASON FOR VISIT F/U-6 MO. ASTHMA (FPG) Encounters Encounter Location Date Provider Diagnosis Pulmonary Medicine [place] [address] [place] [address] 10/29/2024 Scott Dennis Plan Of Treatment No Information Progress Notes * Cristine MANLEY KDOB: [birth year] (65 yo F)Acc No.[id number]:10/29/2024 UNLOCKED PROGRESS NOTE Follow Up Patient: Cristine ALEJANDRE :?Scottly Dennis DODOB:1960???Age:64 Y ???Sex:FemaleDate:10/29/2024Phone:[phone]:9 [facility]Pcp:Celia Blank Subjective: * Chief Complaints: * 1 . F/U-6 MO. ASTHMA (FPG). * Medical History: Objective: * Vitals: Assessment: Plan: * Treatment: * * Electronic signature of Scott Dennis DO on 02/03/2025 at 07:33 AM EDTSign off status: PendingVisit Status:?R/S (Rescheduled) * Provider: Aliya Dennis DO Date: 0 10/29/2024 Generated for Printing/Faxing/eTransmitting on:?02/03/2025 07:33 AM EDT
--- OUTSIDE RECORDS SUMMARY | 2025-01-29 07:42 | XMS_ITS ---
Author Organization [facility] Address [address] [place] [address] Care Team Providers Care Photoresist Contact Printer Name Role Phone Celia Blank M.D. Primary Care Provider Unavail able Jose L Vance Unavailable [phone] REASON FOR VISIT PRE OP LABS Procedures Procedure Date Ordered Date Performed Result Body Sit e EKG 01/29/2025 N/A Encounters Encounter Location Date Provider Diagnosis [facility] [address] [place] [address] 01/29/[address] [facility] Radiculopathy, lumbosacral region M54.17 ; Lumbar stenosis with neurogenic claudication M48.062 ; Degeneration of intervertebral disc of lumbar region with discogenic back pain M51.360 and Spondylolisthesis, lumbar region M43.16 Assessments Encounter Date Diagnosis (ICD Code) Assessment Notes Treatment Notes Treatment Clinical Notes Section Notes 01/29/2025 Radiculopathy, lumbosacral regio n (ICD-10 - M54.17) 01/29/2025Lumbar stenosis with neurogenic claudication (ICD-10 - M48.062) 01/29/2025Degeneration of intervertebral disc of lumbar region with discogenic back pain (ICD-10 - M51.360)01/29/2025Spondylolisthesis, lumbar region (ICD-10 - M43.16) Plan Of Treatment Pending Test Test Name Order Date Chest 2 views - 09111 01/29/2025 CBC 01/29/2025 PT/PTT 01/29/2025 BMP 01/29/2025 MRSA (Bilateral Nares) PCR 01/29/2025 EKG 01/29/2025 Next Appt Details Provider Name:Jose L Reed air, 02/06/2025 12:20:00 PM, [address] [place] [address], [place], [address], Provider Name:Jose L Severino, 02/27/2025 09:10:00 AM, [address] [place] [address], [phone], Provider Name:Jose L Severino, 03/04/2025 11:30:00 AM, [address] [facility], [place], [place], [phone], Provider Name:Jose L Booker air, 04/17/2025 01:30:00 PM, [address] [place] [address], [phone], Progress Notes * KARLENE MANLEY KDOB: (65 yo F)Acc No.[id number]:01/29/2025 Patient:?KARLENE MANLEY Yovanny :1960???Age:65 Y???Sex:FemalePhone:[phone] Address:[address] [place] [address] Subjective: * Chief Complaints: * P RE OP LABS * Medical History: * Surgical History: * Hospitalization/Major Diagno stic Procedure: * Medications: Objective: * Vitals: * Physical Examination: ??? Assessment: * Assessment: 1.?Radiculopathy, lumbosacral region - M54.17 (Primary)???2.?Lumbar stenosis with neurogenic claudication - M48.062???3.?Degeneration of intervertebral disc of lumbar region with discogenic back pain - M51.360???4.?Spondylolisthesis, l umbar region - M43.16??? Plan: * Treatment: ?LAB: CBC ?LAB: PT/PTT ?LAB: BMP ?LAB: MRSA (Bilateral Nares) PCR ?Imaging: Chest 2 views - 85162 ?Procedure: EKG * Procedure Codes: 7 1046 X-RAY EXAM CHEST 2 VIEWS * true * Date:?Generated for Printing/Faxing/eTransmitting on:?02/03/2025 07:33 AM EDT
--- OUTSIDE RECORDS SUMMARY | 2025-02-03 07:33 | XMS_ITS | Patient Health Record ---
Author Organization [facility] [place] Address [address] [place] [address] Care Team Providers Care Supervisor Throwing Department Name Role Phone Celia Blank Primary Care Provider Scott Cramer [phone] Allergies Allergen (clinical drug ingredient) Drug/Non Drug Allergy documented on EMR Reaction Allergy Type Onset Date Status LevaquinrashDrug AllergyActiveacetaminophen / oxycodonePercocetnausea and vomitingDrug AllergyActiveSubstance with sulfonamide structure and antibacterial mechanism of action (substance)Sulfa AntibioticsunknownDrug AllergyActive Reason For Referral No Information Medications Medication SIG (Take, Route, Frequency, Duration) Notes Start Date End Date Status Albuterol Sulfate HFA 108 (9 0 Base) MCG/ACT 2 puffs as needed for SOB Inhalation every 4 hrs; Duration: 90 days Dispense #3 inhalers ActivebuPROPion HCl ER (XL) 300 MG1 tablet Oral Once a day; Duration: 90 days ActiveVarenicline Tartrate(Continue) 1 MG 1 tablet after eating Orally Twice a day; Duration: 30 days Begin after completing starter pack 5ActiveHYDROcodone-Acetaminophen 5-325 MGOral; Duration: 30 DaysActive tiZANidine HCl 4 MGOral; Duration: 30 DaysActiveAlbuterol Sulfate (2.5 MG/3ML) 0.083%3mL Inhalation QID; Duration: 90 daysActiveTrelegy Ellipta 200-62.5-25 MCG/ACT 1 puff Inhalation Once a day; Duration: 90 days Rinse after use ; Dispense #3 inhalers ActiveVarenicline Tartrate (Starter) 0.5 MG X 11 & 1 MG X 42as directed Orally 5Active Immunizations Vaccine Route Administration Date Status Comme nts SARS-COV-2 (COVID 19 Pfizer 30mcg/0.3mL) Unknown 03/29/2021 Administered Social History Tobacco Use: Social History Observation Description Date Details (start date - stop date) Current Smoker NA - NA Tobacco Control (Standard) Question Answer Notes Tobacco use: Current every day smoker Additional Findings: Tobacco userHeavy cigarette smoker (20-39 cigs/day) Problems Problem Type SNOMED Code ICD Code Onset Dates Problem Status W/U Status Risk Notes Problem Uncomplicated modera te persistent asthma (084503307) Moderate persistent asthma, uncomplicated (J45.40) ActiveconfirmedProblemLong-term current use of inhaled steroid (736909822)tank terminal gauger (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 of 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 (Z79.51)ActiveconfirmedProblemMental disorder caused by drug (615877837)Cigarette nicotine dependence with nicotine- induced disorder (F17.219)ActiveconfirmedProblemMultiple pulmonary nodules (224177105)Multiple pulmonary nodules (R91.8)Activeconfirmed Vital Signs Heart Rate 80 /min 10/17/2024 Kmqyyrunydv54.6 degrees Uyqyeobcxk94/10/2025Respiratory Rate18 /min10/17/2024 Pdcdejbx51 %10/17/2024lood pressure mhdowgdzq51 mm Hg10/17/20243612Qenohu76.0 in 10/17/2024lood pressure zizajdcp439 mm Hg10/17/20246098Feugyc709.8 lbs10/17/2024MI 26.9 kg/m210/17/2024 Procedures Procedure Date Ordered Date Performed Result Body Sit e Smoking/Tobacco Counseling 3 min up to 10-performed 10/17/2024 10/17/2024 N/A Encounters Encounter Location Date Provider Diagnosis [facility] [address] [place] [address] 10/17/2024 Scottly Dennis Moderate persistent asthma, uncomplicated J45.40 ; Cigarette nicotine dependence with nicotine-induced disorder F17.219 ; Multiple pulmonary nodules R91.8 ; penitentiary (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 of 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 Z79.51 and Encounter for screening for malignant neoplasm of respiratory organs Z12.2 [facility] [address] [place] [address] 07/15/2024 [facility] [address] [place] [address]/09/2025 [facility] Assessments Encounter Date Diagnosis (ICD Code) Assessment Notes Treatment Notes Treatment Clinical Notes Section Notes 10/17/2024 Moderate persistent asthma, unco mplicated (ICD-10 - J45.40) Prior treatment: Trelegy 200 > Advair 250 > Spiriva 1.25 Patient has benefit from Trelegy 200, but remains symptomatic with frequent albuterol use (both HFAand neb). Reviewed testing from the past: eosinophils only 100 and IgE 41, so biologic treatments are limited. Ongoing symptoms most consistent with continued smoking. Smoking cessation is the best option at this point. Will need to look into alpha-1 antitrypsin (AAT) testing in the future. 10/17/2024igarette nicotine dependence with nicotine-induced disorder (ICD-10 - F17.219) ~2ppd x 50 years Discussed smoking cessation for 5 minutes today. Has been on Wellbutrin XL first at 150mg dose [id number] dose. Had some success decreasing to 1/2ppd [...] potential augmentation of adverse effects. Will try both- Rx Chantix starter pack and then follow with continuing pack if covered and tolerated. If not cove red, she should remain on Wellbutrin and work at stopping harder. Last LDCT done 03/21/2024 - Next LDCT is due 03/2025. 10/17/2024Multiple pulmonary nodules (ICD-10 - R91.8) LDCT 03/21/2024 - RUL patchy scarring and scattered pulmonary nodules 3mm or less in size. According to current Fleischner Society Guidelines, no further imaging monitoring is required, but they willbe followed with annual LDCT screening which is due 03/2025. 10/17/2024Long term (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 of 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 (ICD-10 - Z79.51) Patient was counseled to rinse & gargle with water after inhaled corticosteroid use. 10/17/2024Encounter for screening for malignant neoplasm of respiratory [...] End Date [place]ICARE [place] [address] [place] [place] [address] [id number] Karina Manley - patient is the insuredALLSTATE MEDICARE SUPPLEMENTPO B[address] [address] [place] [phone], DianeSelf - patient is the insured Medical (General) History Medical History History ICD Code Moderate persistent asthma, uncomplicate d J45.40 Multiple pulmonary nodules R91.8 OA (osteoarthritis) M19.90 Cigarette nicotine dependence with nicot ine-induced disorder F17.219 Surgical History Surgery Date(Month/Year) oopherectomy tonsillectomybunionectomycataract-lens implantsthoracic spine surgery
--- OUTSIDE RECORDS SUMMARY | 2025-02-03 07:33 | XMS_ITS | Clinical Summary ---
Author Organization [facility] Address [address], [address] [place] [address] Care Team Providers Care Email Manager Name Role Phone Celia Blank MD Primary Care Provider [phone] Allergies Active AllergyReactionsCriticalityNoted DateCommentsLevofloxacinOther (See Comments)Low03/11/20104417LbdshusqyoAdivVos73/11/2011Sulfa AntibioticsOther (See Comments)03/11/2010 Medications MedicationSigDispense QuantityRefillsLast FilledStart DateEnd DateStatus HYDROcodone-acetaminophen (NORCO) 5-325 MG per tablet Take 1 tablet by mouth .Active tiZANidine (ZANAFLEX) 4 MG tablet Take 4 mg by mouth03/09/2016Active diclofenac (CATAFLAM) 50 MG tablet Take 50 mg by mouthActive omeprazole (PRILOSEC) 20 MG delayed release capsule Take by mouth03/11/2010ctive amitriptyline (ELAVIL) 25 MG tablet Take 25 mg by mouth01/18/2011ctive fluticasone-salmeterol (ADVAIR DISKUS) 250-50 MCG/DOSE AEPB Inhale 1 puff into the lungsActive Encounters DateTypeDepartmentCare WrnkFeepihxbeah99/22/2025Telephone [facility] Pulmonology [address] [place] [address] Scott Dennis DO Pulmonary Clearancefrom Last 3 Months Social History Tobacco UseTypesPacks/DayYears UsedDateSmoking Tobacco: Every DayCigarettes Alcohol UseStandard Drinks/WeekCommentsNo0 (1 standard drink = 0.6 oz pure alcohol)CommentsNoSex and Gender InformationValueDate RecordedSex Assigned at BirthNot on fileLegal YqmPmpqml46/01/2013 2:49 PM ESTGender Identity Not on fileSexual OrientationNot on file Last Filed Vital Signs Vital SignReadingTime TakenCommentsBlood Zwpgpfdg376/9906/29/2016 4:51 PM EDT Kiqpz113606/29/2016 4:51 PM LRNBadnvnvbjvq96.3 ??C (99.1 ??F)06/29/2016 4:51 PM EDTRespiratory Gamk882406/29/2016 4:51 PM EDTOxygen Kmgjwlcukj60%06/29/2016 4:51 PM EDTInhaled Oxygen Concentration--Weight--Height--Body Mass Index-- Plan of Treatment DateTypeDepartmentCare Team (Latest Contact Info)Lzeqjwtexir17/31/2025 1:00 PM EDTOffice Visit [facility] Pulmon[facility] [address] [place] [address] [address] [place] [address] Scott Dennis [address] [place] [address] [address] [place] [address] [facility] Insurance Care Teams Team MemberRelationshipSpecialtyStart DateEnd Date Celia Blank MD PCP - GeneralFamily Medicine06/29/16
--- OUTSIDE RECORDS SUMMARY | 2025-02-03 07:33 | XMS_ITS | Clinical Summary ---
Author Organization [facility] Address [address] [place] [address] Care Team Providers Care Needle Punch Operator Name Role Phone Celia Blank MD Primary Care Provider [phone] Ofelia Arceo MD Unavailable Geoff Walker DO Unavailable [phone] Allergies Active AllergyReactionsCriticalityNoted GdmiOwoyqqcsOeshgvzsrta39/20/2024 Other Reaction(s): Hives, Muscle pain Wtcgmcjibhirxk93/20/2024 Other Reaction(s): Hives, Unknown Odtgkcrtydkfb64/26/2025 Other Reaction(s): Unknown Oxycodone-AcetaminophenNausea Only06/05/20240236NmvrvzmchdWrtxCzq45/02/2010 Other Reaction(s): Hives, Other (See Comments), Unknown, Unknown Sulfa Bbgsodfzwad13/02/2010 Other Reaction(s): Other (See Comments), Unknown Medications MedicationSigDispense QuantityRefillsLast FilledStart DateEnd DateStatus albuterol (2.5 MG/3ML) 0.083% nebulizer solution INHALE 3ml via NEBULIZER FOUR TIMES DAILY NEEDED SHORTNESS OF BREATH and FOR WHEEZINGActive albuterol HFA 90 mcg/act inhaler Inhale 2 puffs every 4 (four) hours if neededActive buPROPion XL (Wellbutrin XL) 150 MG 24 hr tablet Take 150 mg by mouth Daily03/11/2024ctive Fluticasone-Salmeterol 250-50 MCG/ACT aerosol powder Inhale 1 puffActive tiZANidine (Zanaflex) 4 MG tablet Take 4 mg by mouth in the morning and 4 mg in the evening and 4 mg before bedtime.Active omeprazole (PriLOSEC) [address] capsule OralActive HYDROcodone-acetaminophen ([place]) 5-325 MG tablet Take 1 tablet by mouth in the morning and 1 tablet in the evening and 1 tablet before bedtime.Active Resolved Problems ProblemNoted DateDiagnosed DateResolved GuaaRqemgy78ilateral knee painMI 27.0-27.9,adulthronic back painhronic GERDhronic obstructive pulmonary disease, ccdfbuoidon17igarette nicotine dependence with nicotine-induced ndkvfqml41Depression Early bqodxmv66Epigastric painHeadache Joint painLong term (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 of inhaled ffutevcb69Lumbar radiculopathy, pwfsyws3806/05/2024 06/05/20249616Llewdbxea91Moderate persistent asthma, uncomplicated Osteoarthritis of right wristOsteopenia Pain in posterior right lower kebpqqvim88 Primary osteoarthritis of both kneesRib triebmvp21/26/2025 06/05/2024Right thyroid xevnen58Encounter for immunization Tick bite5006/05/2024Tobacco user06/05/2024 06/05/2024Very low density fjsazuvlcmlrzv70/26/80512506/05/2024 Immunizations ImmunizationAdministration DatesNext DueDTaP, Exhyfjfvybk21/30/2019Pfizer Purple Cap SARS-CoV-2 Wfhepcsdtyz40/20/2021,08/11/2020,07/21/2020Td (adult), 5 Lf tetanus toxoid, preservative free, /29/2014 Social History Tobacco UseTypesPacks/DayYears UsedDateSmoking Tobacco: Every DayCigarettes Smokeless Tobacco: Never Tobacco Cessation:Ready to Q uit: Not Asked; Counseling Given: Not Answered Alcohol UseStandard Drinks/WeekCommentsNot Currently0 (1 standard drink = 0.6 oz pure alcohol)CommentsUnknownSex and Gender InformationValueDate Recorded Sex Assigned at BirthNot on fileLegal AevNvngor62/15/2023 6:39 PM EDTGender IdentityNot on fileSexual OrientationNot on file Last Filed Vital Signs Vital SignReadingTime TakenCommentsBlood Pressure--Pulse--Temperature-- Respiratory Rate--Oxygen Saturation--Inhaled Oxygen Concentration--Cxuwwa99.3 kg (177 lb)06/05/2024 2:11 PM JWEQpvigg001.2 cm (5' 7 )06/05/2024 2:11 PM ESTBody Mass Index27.72006/05/2024 2:11 PM EST Plan of Treatment DateTypeDepartmentCare Team (Latest Contact Info)Umvyymuxueh69/03/2026 8:45 AM ESTOffice Visit [facility] [address] [place] [address] Geoff Walker, DO [address] [place] [address] Health MaintenanceDue DateLast DoneCommentsCT Fzwqdogwgggq1959FIT-DNA 1960FIT1960FOBT1960 3567Uxsqyobiitwuv91/14/3661Bxwlecbnb01/14/1999 Pneumococcal Vaccine: 65+ Years (1 of 1 - PCV)2009Influenza Vaccine (#1) 2311Iomwhbkrhdi792Colorectal Cancer Dgismvzyw29/05/2032 Insurance Care Teams Team MemberRelationshipSpecialtyStart DateEnd Celia Blank MD PCP - GeneralFamily Uzjmtzek74/18/24 Ofelia Arceo MD [address] [place] [address] Referring PhysicianInternal Gytrqtub74/18/24 Geoff Walker DO [address] [place] [address] Otolaryngology2/
--- OUTSIDE RECORDS SUMMARY | 2025-02-03 07:34 | XMS_ITS | Clinical Summary ---
Author Organization [employer] Address [id number] [address] [place] [address] Care Team Providers Care Payable Representative Name Role Phone Celia Blank MD Primary Care Provider [phone] Allergies Active AllergyReactionsCriticalityNoted IuwaHzzlfcilAxybyurgypfe48/24/2025 Oxycodone-Wpmdgznqdiwkx03/24/2025Sulfa (Sulfonamide Antibiotics)10/01/2024 Medications MedicationSigDispense QuantityRefillsLast FilledStart DateEnd DateStatus HYDROcodone-ibuprofen (VICOPROFEN) 5-200 mg per tablet Take 1 tablet by mouth every 8 (eight) hours as needed for pain. Max Daily Amount: 3 tabletsActive tiZANidine (ZANAFLEX) 4 mg tablet Take 1 tablet (4 mg total) by mouth every 6 (six) hours as needed for muscle spasms.Active omeprazole (PriLOSEC) 20 mg capsule Take 1 capsule (20 mg total) by mouth in the morning.Active zujesgmynxm-naepjlyqy-xzsbitqg (TRELEGY ELLIPTA) 100-62.5-25 mcg blister with device Inhale 1 puff in the morning.Active albuterol (PROVENTIL HFA;VENTOLIN HFA) 90 mcg/actuation inhaler Inhale 2 puffs every 6 (six) hours as needed for wheezing.Active buPROPion SR (WELLBUTRIN SR) 150 mg 12 hr tablet Take 2 tablets (300 mg total) by mouth in the morning and 2 tablets (300 mg total) before bedtime.Active Social History Tobacco UseTypesPacks/DayYears UsedDateSmoking Tobacco: Never AssessedChildcare AnswerDate JwmvfuecQseqhcuocKyzvjxw83/12/2019EmploymentAnswerDate Recorded TnfqbppjopPhzcdcr62/12/2019Hunger ScreeningAnswerDate RecordedWithin the past 12 months we worried whether our food would run out before we got money to buy more.Never True10/01/2024Within the past 12 months the food we bought just didn't last and we didn't have money to get more.Never True10/01/2024 CommentsUnknownSex and Gender InformationValueDate RecordedSex Assigned at Not on fileLegal VlzXbyiqy26/06/2015 12:10 PM EDTGender IdentityNot on file Sexual OrientationNot on file Last Filed Vital Signs Vital SignReadingTime TakenCommentsBlood Uommzgre570/76010/01/2024 10:30 AM EDT Aeugd273510/01/2024 9:59 AM HXQRfszvuwawhf21.9 ??C (98.5 ??F)10/01/2024 7:26 AM EDTRespiratory Dzus526110/01/2024 8:45 AM EDTOxygen Hgszyvrkhd60%10/01/2024 10:30 AM EDTInhaled Oxygen Concentration--Hqemyx21.7 kg (169 lb)10/01/2024 7:26 AM EDT Ccidsy091.2 cm (5' 7 )10/01/2024 7:26 AM EDTBody Mass Index26.47010/01/2024 7:26 AM EDT Plan of Treatment Health MaintenanceDue DateLast DoneCommentsDepression Uvkiddwfc36/14/1971Tobacco Icvlesplp52/14/1971Adult BMI Follow Up Plan1977Zoster (Shingles) Vaccine (1 of 2)2009Fall Risk Ptqkcfhmg33/14/2024COVID-19 Vaccine ( season)/, 08/11/2020, 07/21/2020Influenza Etknbqe9912/09/2024 Adult BMI Ryztdkque70DTaP,Tdap and Td Vaccines (3 - Td or Tdap), 02/05/2014 Medical Devices Not on file Insurance Care Teams Team MemberRelationshipSpecialtyStart DateEnd Celia Blank MD [address] [place] [id number] PCP - GeneralFamily Medicine10/01/24
--- OUTSIDE RECORDS SUMMARY | 2025-02-03 07:34 | XMS_ITS | Encounter Summary ---
Author Organization [facility] [place] [facility]AC[facility]andra Address [address], [address] [place] [address] Care Team Providers Care Auto Leasing Manager Name Role Phone Celia Blank MD Primary Care Provider [phone] Reason for Visit * ReasonOnset DateCommentsPulmonary Dlpdgchxt52/22/2025 Encounter Details DateTypeDepartmentCare Team (Latest Contact Info)Mqdbcqslrsl45/22/2025Telephone [facility] Pulmonology [address] [place] [address] [place] [address] [facility], [address] [address] Pulmonary Clearance Social History Tobacco UseTypesPacks/DayYears UsedDateSmoking Tobacco: Every DayCigarettes Alcohol UseStandard Drinks/WeekCommentsNo0 (1 standard drink = 0.6 oz pure alcohol)CommentsNoSex and Gender InformationValueDate RecordedSex Assigned at BirthNot on fileLegal CpnJctitv96/10/2013 2:49 PM ESTGender Identity Not on fileSexual OrientationNot on filedocumented as of this encounter Plan of Treatment DateTypeDepartmentCare Team (Latest Contact Info)Uirjfhthngh51/31/2025 1:00 PM EDTOffice Visit [facility] [address] [place] [address] [place] [phone] [facility], [address] [address] PULM CLEARANCE-TX FROM TBHdocumented as of this encounter Visit Diagnoses Not on filedocumented in this encounter Care Teams Team MemberRelationshipSpecialtyStart DateEnd Date Celia Blank MD PCP - GeneralFamily Medicine06/29/16documented as of this encounter
--- OUTSIDE RECORDS SUMMARY | 2025-02-03 07:34 | XMS_ITS | CCD ---
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 Name Role Phone CORNELIUS GARRISON Primary Care Physician [phone] MISC, DR MIDDLETON Primary Care Unavailable REQUEST, DR REYES LISTED Attending Unavaila ble REQUEST, DR REYES LISTED Consulting Unavaila ble REQUEST, DR REYES LISTED Admitting Unavaila manish GARRISON, DR CORNELIUS Ward Primary Care Unavailable [...] Provider Cornelius Garrison MD Primary Care Provider Ofelia Arceo MD Unavailable Cornelius Garrison MD Primary Care Provider Alexandro Galvez DO Attending Provider [phone] Cornelius Garrison MD Attending Provider Cornelius Garrison MD Primary Care Provider Geoff Walker DO Unavailable [phone] GEOFF WALKER Attending Unavailable CORNELIUS GARRISON Referring Unavailable KANE PARKER Attending Unavailable OFELIA ARCEO Referring Unavailable Cornelius Garrison MD Attending Provider CORNELIUS GARRISON Primary Care Unavailable TYRONE HAMM Attending Unavailable Cornelius Garrison MD Primary Care Provider Cornelius Garrison MD Attending Provider Vera Hdez CMA Attending Provider Unavailtomas Oleary MD, Carlin Waldrop Attending Provider Delvin Campbell DO Attending Provider [phone] Gianni France DO Attending Provider Brie Mckay MD Attending Provider Сергей Arnett DO Attending Provider Jone Gonsalves MD Attending Provider Raheem Mckeon DO Attending Provider [phone] NKANSAH-AMANKRA, BRIE Attending Unavail able Roselyn Shah Attending Unavailable Roselyn Shah Attending Unavailable CORNELIUS GARRISON Referring Unavailable NKANSAH-AMANKRA, BRIE Referring Unavail able NKANSAH-AMANKRA, BRIE Attending Unavail able Aubree Perez Attending Unavailable Aubree Perez Referring Unavailable Roselyn Shah Attending Unavailable CORNELIUS GARRISON Referring Unavailable NKANSAH-AMANK, BRIE Attending Unavail able Cornelius Garrison MD Primary Care Provider Cornelius Garrison MD Attending Provider Vera Hdez CMA Attending Provider Unavaila ble Cornelius Garrison Admitting Unavailable Cornelius Garrison Attending Unavailable Cornelius Garrison E Admitting Unavailable Cornelius Garrison Attending Unavailable Nkansah-Amankra, Brie Admitting Unavail able Nkansah-Amankra, Brie Attending Unavail able Cornelius Garrison E Primary Care Unavailable Сергей Arnett Admitting Unavailable Сергей Arnett Attending Unavailable Garrison, Cornelius E Primary Care Unavailable GarrisonCornelius E Attending Unavailable Bladimir Cornelius E Admitting Unavailable GarrisonCornelius E Attending Unavailable Bladimir, Cornelius E Admitting Unavailable Alexandro Galvez Admitting Unavailable Alexandro Galvez Attending Unavailable Bladimir, Cornelius E Primary Care Unavailable Bladimir, Cornelius E Admitting Unavailable Garrison, Cornelius E Primary Care Unavailable Cornelius Garrison Attending Unavailable Denilson TAVERAS, Duong Wagoner Attending Unavailable Cornelius Garrison MD Primary Care Unava ilkrystal Oreilly MD, Duong Wagoner Attending Unavailable Garrison MD, [facility] Unava ilable Denilson TAVERAS, Duong Wagoner Attending Unavailable Bladimir TAVERAS, [facility] Unava ilable Denilson TAVERAS, Duong Wagoner Attending Unavailable Bladimir TAVERAS, [facility] Unava ilable Adis PA-C, Ofelia Grace Attending Unavailab Tuan TAVERAS, [facility] Unava ilable Bladimir TAVERAS, [facility] Unava ilable Adis PA-C, Ofelia Grace Attending Unavailab Tuan TAVERAS, [facility] Unava ilable Adis PA-C, Ofelia Grace Attending Unavailab jass Garrison MD, [facility] Unava ilable St Britney TAVERAS, Jose L Dawn Attending Unavaildusty Garrison MD, [facility] Unava ilable Hinton PA-C, Sravani Benson Attending U elizabeth Garrison MD, [facility] Unava ilable Alexey Morgan Admitting Unavailable Adis PA-C, Ofelia Grace Attending Unavailab Tuan TAVERAS, [facility] Unava ilable Adis PA-C, Ofelia Grace Admitting Unavailab le Adis PA-C, Ofelia Grace Attending Unavailab Tuan TAVERAS, [facility] Unava ilable Denilson TAVERAS, Duong Wagoner Attending Unavailable Bladimir TAVERAS, [facility] Unava ilable Denilson TAVERAS, Duong Wagoner Attending Unavailable Bladimir TAVERAS, [facility] Unava ilable Allergies Allergy ClassificationReported Allergen(s)Allergy TypeDate of OnsetReaction(s) Facility (7 sources)Acetaminophen / oxyCODONE; Translations: [acetaminophen-oxycodone] Drug AllergyNausea (finding)[facility] [place] (10 sources)Alendronate; Translations: [alendronate]Drug Hzwpefp31-53-6861Rmgaor pain (finding)[facility] [place] (20 sources)Clarithromycin; Translations: [clarithromycin]Drug Kxhxnzq78-81-4563 Unknown (qualifier value)[facility] [place] (20 sources)levoFLOXacin; Translations: [levofloxacin]Drug Juwktjv67-34-1094 Eruption of skin (disorder)[facility] [place] (8 sources)Sulfonamides (Antibiotic); Translations: [sulfa drugs]Drug allergy Unknown (qualifier value)[facility] [place] (1 source)Acetaminophen / oxyCODONEDrug Tcjaior84-26-3727Dtl [facility] (1 source)AlendronateDrug Iatdhrb61-48-5686Ztc [facility] (1 source)ClarithromycinDrug Gzsrixn96-29-3181Pfb [facility] (1 source)levoFLOXacinDrug Ayeuvxe06-36-6950Xib [facility] (1 source)Quinolones (Antibiotic)Drug allergy (disorder)70-60-1795Xfy [facility] (1 source)Sulfonamides (Antibiotic)Drug allergy (disorder)95-93-4730Elq [facility] (1 source)AcetaminophenDrug Gxcajwb49-98-7703DugroRosvdjvmiUniversity Hospitals Ahuja [facility] (20 sources)AlendronateDrug Jbvgebm56-40-4474MrugtNihdmdsxsUniversity Hospitals Ahuja [facility] Center (20 sources)oxyCODONEDrug Sefmcna71-86-4142CxvcpWjbjtotqcUniversity Hospitals Ahuja Medical Center (20 sources)Sulfonamides (Antibiotic); Translations: [SULFA (SULFONAMIDE ANTIBIOTICS)]Allergy to xgnfxgalk69-30-1938Fekaagl:as a young child, pt. cannot recall [facility] (20 sources)Biaxin XL *MACROLIDES*Allergy to dpbfweiyz60-97-9920RmvhmLsughhncmUniversity Hospitals Ahuja Medical Center (4 sources)Acetaminophen / oxyCODONE; Translations: [OXYCODONE-ACETAMINOPHEN] Drug Zfbbkcy88-00-0282Suoiqk OnlyNOPike [facility] (3 sources)ClarithromycinAllergy to hzqzhreox81-64-2763ZWFU [facility] (3 sources)Lactobacillus acidophilusDrug Cpfivxs83-60-2088AOSV [facility] (3 sources)Quinolones (Antibiotic)Drug Mkioglfiuks64-18-6138FhuqQABD Healthcare (3 sources)Sulfonamides (Antibiotic)Drug Opwzkibvzoh35-84-2767R[facility] (7 sources)fluoroquinolone antibioticsAllergy to ihhnqccfc96-26-7504NmqfnPremier Health [facility] (1 source)Ciprofloxacin; Translations: [Cipro]Drug [facility]ergy[facility] (1 source)symbalta; Translations: [symbalta]Propensity to adverse reactions to drug (disorder)[facility] Medications Current Medications MedicationDrug Class(es)DatesSig (Normalized)Sig (Original)acetaminophen 325 mg / HYDROcodone bitartrate 5 mg oral tablet (20 sources)Opioid AgonistStart: 11-17-2024 End: 92-60-2491prko 1 tablet by mouth three times dailyStart: 10-18-2024 End: 92-65-4044illc 1 tablet by mouth three times dailyHydrocodone-Acetaminophen 5-325 mg tablet Discontinued 1 TAB PO Three times daily October 18, 2024 November 15, 2024 3:06pmStart: 04-21-2024 End: 78-83-0389crpb 1 tablet by mouth three times dailyHydrocodone-Acetaminophen 5-325 mg tablet Discontinued 1 TAB PO Three times daily September 20, 2024 October 16, 2024 9:40amStart: 04-20-2024 End: 04-60-1901tsej 1 tablet by mouth three times dailyHydrocodone-Acetaminophen 5-325 mg tablet Discontinued 1 TAB PO Three times daily April 20, 2024 April 19, 2024 3:01pmStart: 04-20-2024 End: 55-77-7367xhpi 1 tablet by mouth three times dailyHydrocodone-Acetaminophen 5-325 mg tablet Discontinued 1 TAB PO Three times daily April 20, 2024 April 19, 2024 3:01pmStart: 04-20-2024 End: 02-96-2984kwgo 1 tablet by mouth three times dailyHydrocodone-Acetaminophen 5-325 mg tablet Discontinued 1 TAB PO Three times daily April 20, 2024 April 19, 2024 3:01pmStart: 04-20-2024 End: 07-92-3253rpts 1 tablet by mouth three times dailyHydrocodone-Acetaminophen 5-325 mg tablet Discontinued 1 TAB PO Three times daily April 20, 2024 April 19, 2024 3:01pmStart: 04-20-2024 End: 62-45-4021cxmz 1 tablet by mouth three times dailyHydrocodone-Acetaminophen 5-325 mg tablet Discontinued 1 TAB PO Three times daily April 20, 2024 April 19, 2024 3:01pmStart: 04-20-2024 End: 27-32-2391blqt 1 tablet by mouth three times dailyHydrocodone-Acetaminophen 5-325 mg tablet Discontinued 1 TAB PO Three times daily April 20, 2024 April 19, 2024 3:01pmStart: 04-20-2024 End: 36-06-4544gnws 1 tablet by mouth three times dailyHydrocodone-Acetaminophen 5-325 mg tablet Discontinued 1 TAB PO Three times daily April 20, 2024 April 19, 2024 3:01pmStart: 04-20-2024 End: 52-43-2441wheo 1 tablet by mouth three times dailyHydrocodone-Acetaminophen 5-325 mg tablet Discontinued 1 TAB PO Three times daily April 20, 2024 April 19, 2024 3:01pmStart: 04-20-2024 End: 61-86-3444llgp 1 tablet by mouth three times dailyHydrocodone-Acetaminophen 5-325 mg tablet Discontinued 1 TAB PO Three times daily April 20, 2024 April 19, 2024 3:01pmStart: 04-20-2024 End: 30-37-4671lubg 1 tablet by mouth three times dailyHydrocodone-Acetaminophen 5-325 mg tablet Discontinued 1 TAB PO Three times daily April 20, 2024 April 19, 2024 3:01pmStart: 04-20-2024 End: 38-73-2281ggki 1 tablet by mouth three times dailyHydrocodone-Acetaminophen 5-325 mg tablet Discontinued 1 TAB PO Three times daily April 20, 2024 April 19, 2024 3:01pmStart: 04-20-2024 End: 09-23-5497yqso 1 tablet by mouth three times dailyHydrocodone-Acetaminophen 5-325 mg tablet Discontinued 1 TAB PO Three times daily April 20, 2024 April 19, 2024 2:01pmStart: 04-20-2024 End: 85-43-9489poee 1 tablet by mouth three times dailyHydrocodone-Acetaminophen 5-325 mg tablet Discontinued 1 TAB PO Three times daily April 20, 2024 April 19, 2024 2:01pmStart: 08-03-2023 End: 35-98-8423tkvx 1 tablet by mouth three times dailyHydrocodone-Acetaminophen 5-325 mg tablet Discontinued 1 TAB PO Three times daily March 22, 2024 April 19, 2024 3:01pmStart: 72-26-1894cipn 1 tablet by mouth three times dailyHydrocodone-Acetaminophen Active 1 TAB PO Three times daily August 03, 2023Start: 12-17-2021 End: 21-15-8702fhus 1 tablet by mouth three times dailyHydrocodone-Acetaminophen 5-325 mg tablet Discontinued 1 TAB PO Three times daily May 26, 2023 June 26, 2023 12:47pmtake 1 tablet by mouth in the morning, then take 1 tablet by mouth in the evening, then take 1 tablet by mouth at bedtime HYDROcodone-acetaminophen ([place]) 5-325 MG tablet Take 1 tablet by mouth in the morning and 1 tablet in the evening and 1 tablet before bedtime. Active amitriptyline hydrochloride 50 mg oral tablet (20 sources)Tricyclic AntidepressantStart: 80-19-5866rkrx 1 tablet by mouth once daily at bedtimeStart: 12-17-2021 End: 27-40-7085srbn 1 tablet by mouth once daily at bedtimeAmitriptyline 50 mg tablet Discontinued 50 MG PO Daily at bedtime July 28, 2023 12:00am January 102023 1:58pm FreeTextSi tablet at bedtime Orally Once a day; Note: Source Status: Start; Refills: 3; Qty: 90 Tablet; Provider: Bladimir Yang E24 hr buPROPion hydrochloride 300 mg extended release oral tablet (20 sources)AminoketoneStart: 22-28-5066bkpr 1 tablet by mouth once dailyStart: 03-11-2024 End: 11-91-9113hrlg 1 tablet by mouth once dailyBupropion Hcl 150 mg tablet extended release 24 hr Discontinued 150 MG PO Daily March 1:00am April 15, 2024 4:39pmcefdinir 300 mg oral capsule (20 sources)Cephalosporin AntibacterialStart: 34-57-8215wpsi 1 capsule by mouth twice dailyStart: 01-09-2024 End: 18-08-8094felw 1 capsule by mouth twice dailyCefdinir 300 mg capsule Discontinued 300 MG PO Twice daily January 09, 2024 12:00am February 08, 2024 1:53pmdiclofenac potassium 50 mg oral tablet (1 source)Nonsteroidal Anti-inflammatory DrugStart: 75-97-9658ubvv 1 tablet by mouth twice dailydiclofenac potassium 50 mg oral tablet 50 mg = 1 tab(s), Oral, BID, Refills(s) 0 Start Date: 12/17/21Status: Orderedfluconazole 150 mg oral tablet (3 sources)Azole AntifungalStart: 72-59-2741Xpkpcyjkaig-Umeclidin-Vilanter (20 sources)Start: 45-37-6865Jfmjwhkqpws-Umeclidin-Vilanter (Trelegy Ellipta) 200-62.5-25 mcg blister with device Active 1 INH INHALATION Daily 3 April 15, 2024 4:40pm Rinse after use Complies with drug therapyStart: 04-15-2024 Start: 42-54-0065Fppmpuavgew-Umeclidin-Vilanter (Trelegy Ellipta) 200-62.5-25 mcg blister with device Active 1 INH INHALATION Daily 3 April 15, 2024 4:40pm Rinse after useStart: 37-16-4633Fwcsidesbir-Umeclidin-Vilanter (Trelegy Ellipta) 200-62.5-25 mcg blister with device Active 1 INH INHALATION Daily 3 April 15, 2024 3:40pm Rinse after useStart: 03-29-2024 End: 08-04-1709Vapobjveyem-Umeclidin-Vilanter (Trelegy Ellipta) 200-62.5-25 mcg blister with device Discontinued 1INH INHALATION Daily 60 March 29, 2024 10:38am April 15, 2024 4:41pm Rinse after useStart: 03-29-2024 End: 29-29-2513Hqnwercvsda-Umeclidin-Vilanter (Trelegy Ellipta) 200-62.5-25 mcg blister with device Discontinued 1INH INHALATION Daily 60 March 29, 2024 9:38am April 15, 2024 3:41pm Rinse after useStart: 03-11-2024 End: 62-82-9799Cubmetwddwv-Umeclidin-Vilanter (Trelegy Ellipta) 200-62.5-25 mcg blister with device Discontinued 1INH INHALATION Daily 180 90 March 11, 2024 1:00am March 29, 2024 10:38am Rinse after useStart: 03-11-2024 End: 42-54-0883Anhfejalnhy-Umeclidin-Vilanter (Trelegy Ellipta) 200-62.5-25 mcg blister with device Discontinued 1INH INHALATION Daily 180 90 March 11, 2024 12:00am March 29, 2024 9:38am Rinse after usenystatin 096791 unt/ml oral suspension (5 sources)Polyene AntifungalStart: 97-97-3877oxsp 1 mL by mouth four times dailyomeprazole 20 mg delayed release oral capsule (18 sources)Proton Pump InhibitorStart: 00-45-5824fetp 1 capsule by mouth once dailyStart: 43-52-9232crva 20 mg by mouth once dailyPrilosec OTC 20 mg, Oral, Daily, Refills(s) 0 Start Date: 12/22/21 Status: Orderedondansetron 4 mg disintegrating oral tablet (16 sources)Serotonin-3 Receptor AntagonistStart: 09-27-2024 End: 96-00-4452vefb 1 tablet by mouth every eight hours as needed for nausea and vomitingpantoprazole 40 mg delayed release oral tablet (5 sources)Proton Pump InhibitorStart: 92-82-8868xonf 1 tablet by mouth once dailyPantoprazole [address] Tab 40 mg = 1 tab(s), Oral, Daily, Refills(s) 0 Start Date: 02/01/22 Status: Ordered Repeat number: 1ProAir HFA 90 mcg/inh inhalation aerosol (4 sources)Start: 29-96-7530ezpz 2 puff(s) by inhalation every four hoursProAir HFA 90 mcg/inh inhalation aerosol 2 puff(s), Inhalation, q4hr Shortness of breath or wheezing, Refill(s) 0 Start Date: 12/17/21 Status: Ordered Repeat number: 1Sucralfate (5 sources)Aluminum ComplexStart: 37-59-6611vzlwexfuuj tab 1 gm = 1 tab(s), Oral, QIDACHS, Refills(s) 0 Start Date: 02/01/22 Status: Ordered Repeat number: 1Start: 33-51-2570yfshvvatzi tab 1 gm = 1 tab(s), Oral, QIDACHS, Refills(s) 0 Start Date: 02/01/22 Status: Ordered Completed/Discontinued Medications MedicationDrug Class(es)DatesSig (Normalized)Sig (Original)albuterol 0.83 mg/ml inhalation solution (20 sources)beta2-Adrenergic AgonistStart: 06-26-2024 End: 02-24-1875looz 3 mL by inhalation every month as needed for wheezing Albuterol Sulfate 2.5 mg /3 mL (0.083 %) solution for nebulization Discontinued 2.5 MG INHALATION Four times daily as needed for shortness of breath or wheezing 360 July 15, 2024 3:15pm September 03, 2024 12:15pm 3ml x 120 doses/monthStart: 04-15-2024 End: 52-65-1104rfjt 2.5 mg by inhalation four times daily as needed for wheezing Albuterol Sulfate 2.5 mg /3 mL (0.083 %) solution for nebulization Discontinued 2.5 MG INHALATION Four times daily as needed for shortness of breath or wheezing 75 June 10, 2024 2:02pm June 26, 2024 8:50amStart: 01-23-2024 End: 58-06-2404yojr 1 dose by inhalation every four to six hours as needed Albuterol Sulfate 2.5 mg /3 mL (0.083 %) solution for nebulization Discontinued 0 .ROUTE .COMPLEX 90 March 18, 2024 5:52pm April 15, 2024 4:17pm INHALE 1 vial via NEBULIZER EVERY 4 TO 6 HOURS NEEDEDStart: 01-09-2024 End: 61-11-3861lfto 2.5 mg by inhalation every four to six hours as needed Albuterol Sulfate 2.5 mg /3 mL (0.083 %) solution for nebulization Discontinued 2.5 MG INHALATION EVERY 4-6 HOURS as needed for bronchospasm 90 January 09, 2024 12:00am January 23, 2024 10:48amStart: 09-08-2023 End: 05-01-0459hkoy 1 puff(s) by inhalation every four hours as neededAlbuterol Sulfate 90 mcg/actuation HFA aerosol inhaler Discontinued 2 PUFF INHALATION Every 4 hoursas needed for bronchospasm 8.5 November 01, 2023 9:22am December 05, 2023 2:48pmStart: 07-28-2023 End: 76-32-8421esef 2 puff(s) by inhalation every four hours as neededAlbuterol Sulfate 90 mcg/actuation HFA aerosol inhaler Discontinued 2 PUFF INHALATION Every 4 hoursApril 2023 12:00am September 08, 2023 10:39am FreeTextSi puff Inhalation every 4 hrs prn; Note: Source Status: Refill; Refills: 2; Provider: Bladimir Hernandezart: 12-46-2492wjub 2 puff(s) by inhalation every four hours ProAir HFA 90 mcg/inh inhalation aerosol 2 puff(s), Inhalation, q4hr Shortness of breath or wheezing, Refill(s) 0 Start Date: 12/17/21 Status: Orderedtake 2 puff(s) by inhalation every four hoursalbuterol HFA 90 mcg/act inhaler Inhale 2 puffs every 4 (four) hours if needed Activeazithromycin 500 mg oral tablet (10 sources)Macrolide AntimicrobialStart: 10-04-2024 End: 26-28-7300rnaa 1 tablet by mouth once dailyAzithromycin 500 mg tablet Discontinued 500 MG PO Daily 5 5 October 04, 2024 12:00am December 02, 2024 12:29pmdoxycycline hyclate 100 mg oral tablet (20 sources)Tetracycline-class DrugStart: 10-13-2023 End: 95-69-3567mmby 1 tablet by mouth twice dailyDoxycycline Hyclate 100 mg tablet Discontinued 100 MG PO Twice daily 20 October 13, 2023 12:00am November 01, 2023 9:02amDULoxetine 60 mg delayed release oral capsule (20 sources)Serotonin and Norepinephrine Reuptake InhibitorStart: 11-01-2023 End: 51-17-4763ecwj 1 capsule by mouth once dailyDuloxetine 60 mg capsule,delayed release(DR/EC) Discontinued 60 MG PO Daily December 05, 2023 2:48pm January 09, 2024 3:24pmStart: 07-31-2023 End: 03-79-3642ghuk 1 capsule by mouth once dailyDuloxetine (Cymbalta) 30 mg capsule,delayed release(DR/EC) Discontinued 30 MG PO Daily October 3:47pm November 01, 2023 9:89af182 actuat fluticasone propionate 0.044 mg/actuat metered dose inhaler (20 sources)CorticosteroidStart: 01-24-2024 End: 20-84-8128ktqs 1 puff(s) by inhalation twice dailyFluticasone Propionate Discontinued 1 PUFF INHALATION Twice daily 10.January 24, 2024 8:18am Oct min 2023 2:20pm administer with spacerStart: 32-79-9355yrzd 1 puff(s) by inhalation twice dailyFluticasone Propionate Active 1 PUFF INHALATION Twice daily .January 24, 2024 8:18am administer with spacerStart: 12-05-2023 End: 88-95-5254thov 1 puff(s) by inhalation twice dailyFluticasone Propionate Discontinued 1 PUFF INHALATION Twice daily 10.December 05, 2023 2:47pm January 24, 2024 8:18am administer with spacerStart: 81-89-0505xiha 1 puff(s) by inhalation twice dailyFluticasone Propionate Active 1 PUFF INHALATION Twice daily 10.December 05, 2023 2:47pm administer with spacerStart: 11-01-2023 End: 38-15-3220pmgg 1 puff(s) by inhalation twice dailyFluticasone Propionate 44 mcg/actuation HFA aerosol inhaler Discontinued 1 PUFF INHALATION Twice daily .January 24, 2024 8:18am February 08, 2024 2:20pm administer with spacer Start: 11-01-2023 End: 35-44-7814cbrd 1 puff(s) by inhalation twice dailyFluticasone Propionate Discontinued 1 PUFF INHALATION Twice daily November 01, 2023 12:00am December 05, 2023 2:48pm administer with spacerStart: 56-56-6706qyjz 1 puff(s) by inhalation twice dailyFluticasone Propionate Active 1 PUFF INHALATION Twice daily November 01, 2023 12:00am administer withspacerFluticasone Propion-Salmeterol (20 sources)Corticosteroid, beta2-Adrenergic AgonistStart: 07-28-2023 End: 50-77-7666udeu 1 puff(s) by inhalation twice dailyFluticasone Propion- Salmeterol 250-50 mcg/dose blister with device Discontinued 1 INH INHALATION Twi ce daily July 28, 2023 12:00am November 01, 2023 9:03am FreeTextSi puff Inhalation Twice a day; Note: Source Status: Start; Refills: 3; Provider: Bladimir Hernandezart: 07-28-2023 End: 16-63-4848yfnl 1 puff(s) by inhalation twice dailyFluticasone Propion- Salmeterol 250-50 mcg/dose blister with device Discontinued 1 INH INHALATION Twi ce daily July 27, 2023 11:00pm November 01, 2023 8:03am FreeTextSi puff Inhalation Twice a day; Note: Source Status: Start; Refills: 3; Provider: Bladimir Yang EStart: 07-28-2023 End: 54-39-2657xdoh 1 puff(s) by inhalation twice dailyFluticasone Propion- Salmeterol Discontinued 1 INH INHALATION Twice daily July 28, 2023 12:00am Ju 2023 9:03am FreeTextSi puff Inhalation Twice a day; Note: Source Status: Start; Refills: 3; Provider: Bladimir Hernandezart: 47-17-6176ebbt 1 puff(s) by inhalation twice dailyFluticasone Propion-Salmeterol Active 1 INH INHALATION Twice daily July 28, 2023 12:00am FreeTextSi puff Inhalation Twice a day; Note: Source Status: Start; Refills: 3; Provider: Bladimir Ward Start: 70-79-8870mkvg 2 puff(s) by inhalation twice dailyAdvair HFA 115 mcg-21 mcg Aerosol 2 puff(s), Inhalation, BID, Refill(s) 6 Start Date: 12/17/21 Status: Ordered Repeat number: 1Start: 55-69-3608zxgc 2 puff(s) by inhalation twice dailyAdvair HFA 115 mcg-21 mcg Aerosol 2 puff(s), Inhalation, BID, Refill(s) 6 Start Date: 12/17/21 Status: OrderedFluticasone-Salmeterol 250-50 MCG/ACT aerosol powder Inhale 1 puff ActiveFluticasone Propionate 44 mcg/actuation HFA aerosol inhaler (12 sources)Start: 01-24-2024 End: 91-86-2641zokp 1 puff(s) by inhalation twice dailyFluticasone Propionate 44 mcg/actuation HFA aerosol inhaler Discontinued 1 PUFF INHALATION Twice daily 10.6 January 24, 2024 8:18am February 08, 2024 2:20pm administer with spacer Start: 01-24-2024 End: 36-18-5795prfa 1 puff(s) by inhalation twice dailyFluticasone Propionate 44 mcg/actuation HFA aerosol inhaler Discontinued 1 PUFF INHALATION Twice daily 10.6 January 24, 2024 7:18am February 08, 2024 1:20pm administer with spacer Start: 12-05-2023 End: 23-13-0933slpw 1 puff(s) by inhalation twice dailyFluticasone Propionate 44 mcg/actuation HFA aerosol inhaler Discontinued 1 PUFF INHALATION Twice daily 10.6 December 05, 2023 2:47pm January 24, 2024 8:18am administer with spacer Start: 12-05-2023 End: 18-29-9693qcfl 1 puff(s) by inhalation twice dailyFluticasone Propionate 44 mcg/actuation HFA aerosol inhaler Discontinued 1 PUFF INHALATION Twice daily 10.6 December 05, 2023 1:47pm January 24, 2024 7:18am administer with spacer Start: 11-01-2023 End: 36-60-5382eiyl 1 puff(s) by inhalation twice dailyFluticasone Propionate 44 mcg/actuation HFA aerosol inhaler Discontinued 1 PUFF INHALATION Twice daily November 01, 2023 12:00am December 05, 2023 2:48pm administer with spacerStart: 11-01-2023 End: 53-31-3692crdd 1 puff(s) by inhalation twice dailyFluticasone Propionate 44 mcg/actuation HFA aerosol inhaler Discontinued 1 PUFF INHALATION Twice daily October 31, 2023 11:00pm December 05, 2023 1:48pm administer with spacer methylPREDNISolone 4 mg oral tablet (19 sources)CorticosteroidStart: 11-01-2023 End: 71-97-5928Jkycowbbdvdvcblocb 4 mg tablets,dose pack Discontinued 0 PO per package directions November 01, 2023 12:00am December 05, 2023 2:48pm PO PER PKG DIR for 6 daysStart: 11-01-2023 End: 36-14-0975Extpobezhjeexkmzlb Discontinued 0 PO per package directions November 01, 2023 12:00am November 2:48pm PO PER PKG DIR for 6 daysStart: 31-21-5095Bqlwwxicbjycxffgdn Active 0 PO per package directions November 01, 2023 12:00am PO PER PKG DIR for6 daysPneumoc 20-Agnes Conj-Dip Cr(Pf) (14 sources)Start: 03-11-2024 End: 22-06-6059tjhyzt 1 mL by intramuscular injection oncePneumoc 20-Agnes Conj- Dip Cr(Pf) (Prevnar 20 (Pf)) 0.5 mL syringe Discontinued 0.5 ML IM Once 0.5 [facility] 2023 1:00am March 29, 2024 9:52amStart: 03-11-2024 End: 76-04-8966naabae 1 mL by intramuscular injection oncePneumoc 20-Agnes Conj- Dip Cr(Pf) (Prevnar 20 (Pf)) 0.5 mL syringe Discontinued 0.5 ML IM Once 0.5 [facility] 2023 12:00am March 29, 2024 8:52ampredniSONE 20 mg oral tablet (18 sources)Start: 01-09-2024 End: 79-64-3790sfuf 1 tablet by mouth twice dailyPrednisone 20 mg tablet Discontinued 20 MG PO Twice daily January 09, 2024 12:00am February 08, 2024 1:53pmpregabalin 50 mg oral capsule (20 sources)Start: 07-31-2023 End: 00-16-5508pygp 1 capsule by mouth twice dailyPregabalin (Lyrica) 50 mg capsule Discontinued 50 MG PO Twice daily 60 July 31, 2023 12:00am July 31, 2023 4:37ppKnllhby3 Antigen-As01e (Pf) (10 sources)Start: 03-11-2024 End: 29-18-6409ypjmgb 1 mL by intramuscular injection onceRsvpref3 Antigen-As01e (Pf) (Arexvy (Pf)) 120 mcg/0.5 mL suspension for reconstitution Discontinued0.5 ML IM Once March 11, 2024 1:00am March 29, 2024 10:19fjEfoxreo2 Antigen-As01e (Pf) (Arexvy (Pf)) 120 mcg/0.5 mL suspension for reconstitution (4 sources)Start: 03-11-2024 End: 17-46-5685bmjanz 1 mL by intramuscular injection onceRsvpref3 Antigen-As01e (Pf) (Arexvy (Pf)) 120 mcg/0.5 mL suspension for reconstitution Discontinued0.5 ML IM Once March 11, 2024 1:00am March 29, 2024 10:04amStart: 03-11-2024 End: 99-63-0533zjzlat 1 mL by intramuscular injection onceRsvpref3 Antigen-As01e (Pf) (Arexvy (Pf)) 120 mcg/0.5 mL suspension for reconstitution Discontinued0.5 ML IM Once March 11, 2024 12:00am March 29, 2024 9:04am60 actuat tiotropium 0.50889 mg/actuat inhalation spray (20 sources)AnticholinergicStart: 02-08-2024 End: 80-22-1930llyn 1 puff(s) by inhalation once daily in the morningTiotropium [place] (Spiriva Respimat) 1.25 mcg/actuation mist Discontinued 2 PUFF INHALATION Every morning March 08, 2024 10:50am March 11, 2024 4:50pm tiZANidine 4 mg oral tablet (20 sources)Central alpha-2 Adrenergic AgonistStart: 12-17-2021 End: 26-84-7603hfoe 1 tablet by mouth three times dailyTizanidine 4 mg tablet Discontinued 4 MG PO Three times daily November 15, 2024 2:52pm December 102024 1:13pm Problems Active Problems Problem ClassificationProblemDateDocumented DateEpisodic/ChronicAbdominal hernia (1 source)Diaphragmatic hernia without obstruction or gangrene; Translations: [DIAPH HERNIA W/O OBST/GANGRENE]Onset: 28-09-2507PjeoxbswIsnjbzgrq pain (20 sources)Epigastric pain; Translations: [Epigastric pain]Onset: 12-22-2021 Resolved: 65-77-3751HqcsxcvtAigs and rectal conditions (1 source)Rectal polyp; Translations: [RECTAL POLYP]Onset: 59-96-2431Abcrkhyw Asthma (20 sources)Asthma; Translations: [Uncomplicated moderate persistent asthma] Onset: 06-05-2024 Resolved: 106847-72-3558UnoxnfnWhqhbyhx of urinary tract (2 sources)Kidney stone; Translations: [Calculus of kidney]Onset: 12-24-2024 EpisodicCancer of bladder (20 sources)Malignant tumor of urinary bladder; Translations: [Malignant neoplasm of bladder, unspecified]Onset: 55-61-8902BbmxrvhBcdpljd obstructive pulmonary disease and bronchiectasis (20 sources)Chronic obstructive lung disease; Translations: [Chronic obstructive pulmonary disease, unspecified]Onset: 01-17-2022 Resolved: 277468-82-8766MsyxncyEchluyqww congenital anomalies (1 source)Other specified congenital malformations of intestine; Translations: [OTH SPEC CONGEN MALFORM INTESTINE]Onset: 18-81-9863KbjbvedLhkcudhok of lipid metabolism (9 sources)Very low density lipoprotinemia; Translations: [Pure hyperglyceridemia]Onset: 06-05-2024 Resolved: 136004-85-5300LlgpittDicsruhriefihh and diverticulitis (5 sources)Diverticulosis of large intestine without perforation or abscess without bleeding; Translations: [Diverticulosis of sigmoid colon]Onset: 817793-68-6239IiikoegG Codes: Natural/environment (20 sources)Tick bite; Translations: [Bitten or stung by nonvenomous insect and other nonvenomous arthropods, initial encounter]Onset: 06-05-2024 Resolved: 239570-93-0741GotbdyocEdcdkpthrs disorders (18 sources)Gastroesophageal reflux disease without esophagitis; Translations: [Gastro-esophageal reflux disease without esophagitis]Onset: 12-22-2021 Resolved: 22-35-8135YgdzpasKugwf of unknown origin (15 sources)Disorder characterized by fever; Translations: [Fever, unspecified] Onset: 960107-35-2282ZpiohywsGjjgjpoiw and duodenitis (1 source)Unspecified chronic gastritis without bleeding; Translations: [UNS CHRONIC GASTRITIS W/O BLEEDING]Onset: 45-77-8539KyejfygWkuidrpnmbwrpx ulcer (except hemorrhage) (4 sources)Antral qkkyq71-85-7259GjhvosdDmbtkrespmhbu symptoms and ill-defined conditions (19 sources)Blood in urine; Translations: [Hematuria, unspecified]Onset: 711553-79-1214QlbxegfzNodulhjp; including migraine (20 sources)Headache; Translations: [Headache]Onset: 06-05-2024 Resolved: 271320-58-3721YvbamjguPvuqyqgbdvxbt and screening for infectious disease (20 sources)Patient encounter status; Translations: [Encounter for immunization] Onset: 06-05-2024 Resolved: 911214-29-6098HxaeprvaMftp disorders (9 sources)Depressive disorder; Translations: [Depression]Onset: 06-05-2024 Resolved: 724830-20-7742ZvwsgamPynihii (12 sources)Candidiasis of mouth; Translations: [Candidal stomatitis]12-11-2024 EpisodicNoninfectious gastroenteritis (18 sources)Gastroenteritis; Translations: [Noninfective gastroenteritis and colitis, unspecified]87-79-9237KuwbotzjRonafhdfehpxhz (20 sources)Primary gonarthrosis, bilateral; Translations: [Bilateral primary osteoarthritis of knee]Onset: 06-05-2024 Resolved: 061424-41-8343GblpbgvBdgpz aftercare (1 source)Other fci (current) drug therapy; Translations: [OTH SNF CURRENT DRUG THERAPY]Onset: 35-42-1975HodubkyeOuyoj aftercare (16 sources)Long-term current use of inhaled steroid; 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]Onset: 06-05-2024 Resolved: 627645-94-6226JxbmyguzUjbru aftercare (3 sources)care home (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 of 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; Translations: [Long-term (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 of steroids]18-38-6001UcybmymsLffte bone disease and musculoskeletal deformities (9 sources)Osteopenia; Translations: [Other specified disorders of bone density and structure, unspecified site]Onset: 06-05-2024 Resolved: 730549-80-9808JtmmtcdySkyyj bone disease and musculoskeletal deformities (1 source)Other specified disorders of bone density and structure, unspecified site; Translations: [OTH D/O BONE DEN STRUCT UNS SITE]Onset: 07-84-1960Wohcnujb Other connective tissue disease (17 sources)Pain in right lower limb; Translations: [Pain in right leg]Onset: 06-05-2024 Resolved: 639108-91-5357HyzktdrfVwmyr connective tissue disease (4 sources)Pain in right leg; Translations: [Pain in limb]78-47-5283Lzapqgoe Other diseases of bladder and urethra (17 sources)Mass of urinary bladder; Translations: [Other specified disorders of bladder]85-89-5858IcrdpjyDilwi fractures (17 sources)Fracture of rib; Translations: [Fracture of one rib, unspecified side, initial encounter for closedfracture]Onset: 06-05-2024 Resolved: 826159-05-0853KtenxldvNppuk fractures (2 sources)Fracture of one rib, unspecified side, initial encounter for closed fracture; Translations: [Closedfracture of rib(s), unspecified]02-08-2024 EpisodicOther gastrointestinal disorders (1 source)Diarrhea, unspecified; Translations: [Diarrhea, unspecified]Onset: 31-99-1528HtmwkoryZanbe gastrointestinal disorders (1 source)DiarrheaOnset: 17-30-5317FbnghrpfUdioe nervous system disorders (1 source)Numbness and tingling sensation of skin; Translations: [Anesthesia of skin]57-05-9332RyjwvxuaWzvtl non-traumatic joint disorders (20 sources)Joint pain; Translations: [Pain in unspecified joint]Onset: 06-05-2024 Resolved: 554215-70-1745TgxzcqtyUmjup non-traumatic joint disorders (3 sources)Pain in unspecified joint; Translations: [Pain in joint, site unspecified]58-79-6266AmffyrmiNkuks nutritional; endocrine; and metabolic disorders (9 sources)Overweight in adulthood with body mass index of 25 or more but less than 30; Translations: [Body mass index (BMI) 27.0-27.9, adult]Onset: 06-05-2024 Resolved: 468445-64-5947TplkenxpMhqin screening for suspected conditions (not mental disorders or infectious disease) (20 sources)Screening for malignant neoplasm of colon done; Translations: [Encounter for screening for malignant neoplasm of colon]Onset: 12-22-2021 EpisodicRegional enteritis and ulcerative colitis (1 source)Ulcerative (chronic) pancolitis without complications; Translations: [Ulcerative (chronic) pancolitis without complications]Onset: 52-96-5883Bteolum Residual codes; unclassified (10 sources)Early satiety; Translations: [Early satiety]Onset: 12-22-2021 Resolved: 25-17-3156TuumxuriJgtmjfek codes; unclassified (10 sources)Tobacco user; Translations: [Tobacco use]Onset: 12-22-2021 Resolved: 32-65-8701MhnwuubaSeaskftr codes; unclassified (9 sources)Chronic back pain ; Translations: [Dorsalgia, unspecified]Onset: 06-05-2024 Resolved: 296599-00-4912KhkmjpdvUmhhvmbg codes; unclassified (1 source)Early satiety; Translations: [EARLY SATIETY]Onset: 85-51-1678Umdtvhcn Residual codes; unclassified (18 sources)Menopause present; Translations: [Asymptomatic menopausal state] Onset: 06-05-2024 Resolved: 591160-17-1019PzmdwiepMpvxlnrq codes; unclassified (3 sources)Asymptomatic menopausal state; Translations: [Symptomatic menopausal or female climacteric states]35-87-0953SzalmpmtPgojfyfyfnh; intervertebral disc disorders; other back problems (20 sources)Lumbar radiculopathy; Translations: [Radiculopathy, lumbar region] Onset: 06-05-2024 Resolved: 920608-59-9424TxandloeDohnxnjem-gqtlyil disorders (20 sources)Nicotine dependence, cigarettes, uncomplicated; Translations: [Tobacco dependence caused by cigarettes]Onset: 01-17-2022 Resolved: 070737-78-5111BhdlhbvMieppww disorders (20 sources)Thyroid nodule; Translations: [Nontoxic single thyroid nodule]Onset: 06-05-2024 Resolved: 028673-12-4726AdjrvduEcylcsfnqohq (6 sources)Patient encounter ymcswl27-33-6774Tazgxzdjxbtb (1 source)CONTACT W/AND (SUSP) EXPOS COVID-19; Translations: [CONTACT W/AND (SUSP) EXPOS COVID-19]Onset: 73-41-2203Hwwnglsinckd (1 source)Diarrhea, Abdominal PainOnset: 57-03-0645Vgnlsgk tract infections (14 sources)Urinary tract infectious disease; Translations: [Urinary tract infection, site not specified]Onset: 164915-83-5913Nevfxnjw Past or Other Problems Problem ClassificationProblemDateDocumented DateEpisodic/ChronicOther non- traumatic joint disorders (20 sources)Pain in right knee; Translations: [Pain in both knees]Onset: 01-24-2024 Resolved: 362698-18-8081TikxbrofBwqqe non-traumatic joint disorders (1 source)Pain in left knee; Translations: [Pain in left knee]Onset: 01-24-2024 Episodic Results Test NameValueInterpretationReference RangeFacilityUrine Cultureon 01-01-2025 Bacteria identified Cx Nom (U)No Growth 2 Days PERFORMED BY: [place] [address] PATHOLOGIST ORGANIC CHEMISTRY TEACHER KATHLEEN AGUAYO M.D.NormalHca Florida Blake Hospital Physician GroupComment on above: Performed By: #### CUU #### [facility] [address] [place] [address] USAAmbulatory Visit Summaryon 48-20-9374Yytywnierc Visit SummaryAmbulatory Visit Summary CRISTINE MANLEY :1960 Visit Date:12/24/2024 Ambulatory Visit Instructions Your Diagnosis Bladder cancer Gross hematuria History of UTI Incomplete bladder emptying Smoker Kidney stone Your Care Team Attending Physician - BRIE [...] of laceration of vagina, Tonsillectomy. Discharge Vitals Height 170 cm Height 67 in Weight 74.8 kg Weight 164.906 lb BMI 25.88 What to do next Scheduled Follow-Up Appointments Monday 9:00 AM EST Where: [facility] Monday 1:00 PM EST Where: [facility] You Need to Schedule the Following Appointments Follow Up with MIRA TAVERAS, GERALDO BAIRD When: Where: Medications What How Much When Instructions Unchanged acetaminophen-hydrocodone (acetaminophen-hydrocodone 325 mg-5 mg oral tablet) 1 Tablets By Mouth 3 times a day Contact prescribing physician if questions or concerns Unchanged albuterol (ProAir HFA 90 mcg/ inh inhalation aerosol) 2 Puffs Inhalation Every 4 hours asneeded for Shortness of breath or wheezing Contact [...] 1 Tablets By Mouth Every day Contact prescribingphysician if questions or concerns Unchanged sucralfate (sucralfate [...] pain GERD (gastroesophageal reflux disease) Gross hematuria History of UTI Incomplete bladder emptying Kidney stone Osteopenia Screening for malignant neoplasm of colon [...] health care provider if you have any questionsor concerns. How do I get ready to [...] at work, and in your car. ??? (more content not included)...NormalPaulding County HospitalUrology Office/Clinic Noteon 76-71-4791Qsxlbov Office/Clinic NoteUrology Office/Clinic Note Chief Complaint F/U HPI Staff 64 year old female her for 1-2 wk F/U to cysto done 12/13/24 Previous DX: bladder cancer, gross hematuria, incomplete bladder emptying and smoker S/P Cysto/TURBT 11/13/24 Pt. was in [facility] ER on 12/11/24 for flank pain and fever BBSQ 8 Pt. denies having incontinence Pt. having pain with urination, Pt. states having some discomfort when she has to urinate Pt. denies having gross hematuria Pt. denies having abd pain Pt. having flank pain, only when she has to urinate History of Present Illness Tests reviewed: reviewed UA, ER notes, CT, ucx I have reviewed the previous health record information and history for this patient from external providers, Dr. Perez, and Dr. Mckay. I have reviewed and verified the staff [...] See HPI. Physical Exam Vitals & Measurements HT: 67 in HT: 170 cm WT: 74.8 kg WT: 164.906 lb BMI: 25.88 General Appearance: alert , no acute distress, well nourished, well developed female. Assessment/Plan 64 yo F initially referred by Dr. Cornelius Garrison for hematuria, here for f/u to [facility] urology consult for persistent UTI with hematuria. BBSQ 8 (11) 1. Bladder cancer (C67.9: Malignant neoplasm of bladder, unspecified) Extensive smoking history, >50 years. No exposure to chemicals or toxins. UCx 11/05/24 - >100k mixed skin contam CT AP w con 10/01/24 [facility] - Nodular lesion left aspect of the urinary bladder, 2.3 cm, suspectneoplasm, circumscribed morphology raises possibility for benign process, such as leiomyoma [diagnosis of exclusion]. Pt presented to [facility] ER 11/13/24 with gross hematuria of 11-day duration. Severe clot passage. Three-way Lau placed with CBI initiated. CT AP wo con 11/12/24 [facility] - There are areas of nodular hyperattenuation along the posterior wall ofbladder measuring 6.5 x 2.7 cm in greatest [...] urothelial carcinoma. Muscularis propria present and uninvolved. [1] -Has surveillance cysto scheduled 03/10/25 2. Gross hematuria (R31.0: Gross hematuria) UCx 12/02/24 - >100k Pseudomonas aeruginosa. CT AP w con 12/11/24 [facility] - Neg. CMP 12/14/24 - BUN 8, Cr 0.71, GFR >60 CBC 12/14/24 - Hgb 9.5 12/15/24 - Hgb 10.1 Urology consult 12/13/24 by KML due to flank pain, fevers, hematuria, persistent UTI, and had drop in hgb from 10 to 8.8 after TURBT. Was switched from ertapenem to imipenem/cilastatin. Shares she was in hospital x6 days for UTI. Was discharged with Cipro. UA shows small blood wo signs of infection. Asx. -Cont sx monitoring. Pt knows to notify the office if she were to experience gross hematuria or clots. 3. History of UTI (Z87.440: Personal history of urinary (tract) infections) See #2. 4. Incomplete bladder emptying (R33.9: Retention of urine, unspecified) PVR 11/26/24 - 100 mL -Timed voids [2] 5. Smoker (F17.200: Nicotine dependence, unspecified, uncomplicated) Cessation encouraged. Education attached. 6. Kidney stone (N20.0: Calculus of kidney) CT AP w con 12/11/24 [facility] - 5 mm R renal stone. No obstructing stone. Patient is a 64-year-old male with low-grade urothelial cell carcinoma of the bladder status post TURBT. She subsequently developed Pseudomonas aeruginosa UTI requiring IV antibiotics with completionof Cipro oral yesterday. She is currently doing well. She denies any fevers, chills, burning urination. Patient will follow-up with me as scheduled for her surveillance cystoscopy. Follow-up With When Contact Information MIRA TAVERAS, BRIE, GERALDO Additional Instructions: surveillance cysto 03/2025 Patient Education Cystoscopy Steps to Quit Smoking Amy Patel, personally scribed for Dr. Mckay on 12/24/2024 10:11:56. . Portions of this record may have been created with voice recognition artificial intelligence software, specifically [employer], [employer] and or zhouwu. Substitutions may have occu (more content not included)...Fisher-Titus Medical CenterComment on above:Result Comment: Electronically Signed By: BRIE MCKAY MD\.br\Date and Time Signed: 12/24/24 10:16 EDT\.br\Electronically Co-Signed By: Amy Luciano.br\Date and Time Co-Signed: 12/24/2509:12 EDTBasophils Auto (Bld) [#/Vol]Ordered By: Gianni France on 31-30-5653Crgomvemr (Bld) [#/Vol]0.0 10 3/uL0.0-0.1 [facility] HospitalBasophils/100 WBC Auto (Bld)Ordered By: Gianni France on 33-89-3449Cawxadcmx/100 WBC (Bld)0.4 %0.2-2.0[facility] HospitalEosinophils/100 WBC Auto (Bld)Ordered By: Gianni France on 27-59-6951Tzmkmzwbflf/100 WBC (Bld)2.4 %0.9-7.0[facility] HospitalErythrocyte distribution width Auto (RBC) [Ratio]Ordered By: Gianni France on 65-82-2888Vbjjpyhhneq distribution width (RBC) [Ratio] 14.0 %11.0-15.0[facility] HospitalGlomerular filtration rate (GFR) estimation in non- AmericanOrdered By: Gianni France on 67-41-0714LHZ/1.73 sq M.predicted among non-blacks MDRD (S/P/Bld) [Vol rate/Area]mL/min/{1.73_m2}>=60 mL/min/1.73m 2FCorey Hospital Hematocrit Auto (Bld) [Volume fraction]Ordered By: Gianni France on 12-93-0029Objsezmjnh (Bld) [Volume fraction]31.7 %Low36.0-48.0[facility] HospitalHemoglobin [Mass/volume] in BloodOrdered By: Gianni France on 19-95-1752Lhxwqgscgl (Bld) [Mass/Vol]10.1 g/dLLow12.0-16.0[facility] HospitalLaboratory - Chemistry and Chemistry - challengeOrdered By: Gianni France on 55-22-5984Sxgbsmo [Mass/Vol]9.3 mg/dL8.5-10.1FCorey HospitalChloride [Moles/Vol]105 mmol/R83-070NluyzttcaToledo HospitalCO2 [Moles/Vol]31.0 mmol/L21.0-32.0[facility] HospitalCreatinine [Mass/Vol]0.82 mg/dL0.55-1.02[facility] GFR/1.73 sq M.predicted MDRD (S/P/Bld) [Vol rate/Area]mL/min/{1.73_m2}>=60 mL/min/1.73m 2FCorey HospitalGlucose [Mass/Vol]83 mg/nW10-364 [facility] HospitalPotassium [Moles/Vol]4.0 mmol/L3.5-5.1FOhioHealth Van Wert Hospitalodium [Moles/Vol]144 mmol/N403-665TmckzugfdToledo HospitalUrea nitrogen [Mass/Vol]7.0 mg/dL7.0-18.0[facility] HospitalUrea nitrogen/Creatinine [Mass ratio]8.5 mg/mgToledo HospitalLaboratory - Hematology and Cell countsOrdered By: Gianni France on 69-90-8800Ypgtffyn granulocytes/100 WBC (Bld)0.4 %0.0-0.5FCorey HospitalLeukocytes [#/volume] corrected for nucleated erythrocytes in Blood by Automated counOrdered By: Gianni France on 57-48-9819VAJ corrected for nucl RBC Auto (Bld) [#/Vol]11.1 10 3/uLHigh4.0-11.0 [facility] HospitalLymphocytes Auto (Bld) [#/Vol]Ordered By: Gianni France on 32-61-8092Gpocjlbvqzt (Bld) [#/Vol]2.0 10 3/uL1.2-3.8 [facility] HospitalLymphocytes/100 WBC Auto (Bld)Ordered By: Gianni France on 35-36-0372Pxwwgereebg/100 WBC (Bld)18.0 %Low20.5-60.0 [facility] HospitalMCH Auto (RBC) [Entitic mass]Ordered By: Gianni France on 48-59-8196KUL (RBC) [Entitic mass]27.7 pg26.7-34.0 [facility] HospitalMCHC Auto (RBC) [Mass/Vol]Ordered By: Gianni France on 33-28-2223AHHU (RBC) [Mass/Vol]31.9 g/dL29.9-35.2 [facility] HospitalMCV Auto (RBC) [Entitic vol]Ordered By: Gianni France on 99-43-7547LPJ (RBC) [Entitic vol]87.1 fL81.0-99.0 [facility] HospitalMonocytes Auto (Bld) [#/Vol]Ordered By: Gianni France on 01-51-0026Jrcusteil (Bld) [#/Vol]0.7 10 3/uL0.3-0.8 [facility] HospitalMonocytes/100 WBC Auto (Bld)Ordered By: Gianni France on 55-21-7569Hjezofmko/100 WBC (Bld)6.4 %1.7-12.0[facility] HospitalNeutrophils Auto (Bld) [#/Vol]Ordered By: Gianni France on 72-65-7908Ojrxmtsvnrg (Bld) [#/Vol]8.0 10 3/uLHigh1.4-6.5FCorey HospitalNeutrophils/100 WBC Auto (Bld)Ordered By: Gianni France on 48-33-9394Lergbotzkev/100 WBC (Bld)72.4 %43.0-75.0[facility] HospitalNo Panel InformationOrdered By: Gianni France on 93-17-9106Aafphbkocfa # (Auto)0.3 10 3/uL0.0-0.7FCorey HospitalImmature Granulocyte # (Auto)0.04 10 3/uLHigh0.00-0.03[facility] HospitalPlatelet mean volume Auto (Bld) [Entitic vol]Ordered By: Gianni France on 28-67-5166Yvtxcure mean volume (Bld) [Entitic vol]9.6 fL 9.5-13.5FCorey HospitalPlatelets Auto (Bld) [#/Vol]Ordered By: Gianni France on 74-55-3390Anijzggoc (Bld) [#/Vol]506 10 3/wFDhvk543-809 [facility] HospitalRBC Auto (Bld) [#/Vol]Ordered By: Gianni France on 67-89-9071CGL (Bld) [#/Vol]3.64 10 6/uLLow4.20-5.40OhioHealth Grant Medical Centererum or plasma anion gap determinationOrdered By: Gianni France on 03-06-0258Houce gap [Moles/Vol]12.0 mmol/LFCorey HospitalErythrocyte distribution width Auto (RBC) [Ratio]Ordered By: Raheem Mckeon on 36-48-9474Tzqprhcmgty distribution width (RBC) [Ratio]13.9 % 11.0-15.0[facility] HospitalGlomerular filtration rate (GFR) estimation in non- AmericanOrdered By: Raheem Mckeon on 72-02-9481LGK/1.73 sq M.predicted among non-blacks MDRD (S/P/Bld) [Vol rate/Area]mL/min/{1.73_m2} >=60 mL/min/1.73m 2FCorey HospitalHematocrit Auto (Bld) [Volume fraction]Ordered By: Raheem Mckeon on 98-33-7207Ajhzrumkjt (Bld) [Volume fraction]29.3 %Low36.0-48.0[facility] HospitalHemoglobin [Mass/volume] in BloodOrdered By: Raheem Mckeon on 01-73-9513Zgaxwcyoxr (Bld) [Mass/Vol]9.5 g/dLLow12.0-16.0[facility] HospitalLaboratory - Chemistry and Chemistry - challengeOrdered By: Raheem Mckeon on 60-86-3254Vbqhgnn [Mass/Vol]8.8 mg/dL8.5-10.1FCorey HospitalChloride [Moles/Vol]108 mmol/UPjzo03-797AakaalywnToledo HospitalCO2 [Moles/Vol] 31.5 mmol/L21.0-32.0[facility] HospitalCreatinine [Mass/Vol]0.71 mg/dL0.55-1.02[facility] HospitalGFR/1.73 sq M.predicted MDRD (S/P/Bld) [Vol rate/Area]mL/min/{1.73_m2}>=60 mL/min/1.73m 2FCorey HospitalGlucose [Mass/Vol]84 mg/iU71-266XsqunaowbToledo Hospital Magnesium [Mass/Vol]1.7 mg/dLLow1.8-2.4FCorey Hospital Potassium [Moles/Vol]4.0 mmol/L3.5-5.1FOhioHealth Van Wert Hospitalodium [Moles/Vol]146 mmol/XIjvl915-373PzlwitrcyToledo HospitalUrea nitrogen [Mass/Vol]8.0 mg/dL7.0-18.0[facility] HospitalUrea nitrogen/Creatinine [Mass ratio]11.3 mg/mgToledo Hospital Leukocytes [#/volume] corrected for nucleated erythrocytes in Blood by Automated counOrdered By: Raheem Mckeon on 72-61-8711UNE corrected for nucl RBC Auto (Bld) [#/Vol]11.3 10 3/uLHigh4.0-11.0[facility] Auto (RBC) [Entitic mass]Ordered By: Raheem Mckeon on 85-70-3857KTX (RBC) [Entitic mass]28.3 pg26.7-34.0[facility] HospitalHC Auto (RBC) [Mass/Vol]Ordered By: Raheem Mckeon on 63-21-3041IXPO (RBC) [Mass/Vol]32.4 g/dL29.9-35.2FCorey HospitalMCV Auto (RBC) [Entitic vol]Ordered By: Raheem Mckeon on 15-39-7184WOA (RBC) [Entitic vol]87.2 fL81.0-99.0[facility] HospitalPlatelet mean volume Auto (Bld) [Entitic vol]Ordered By: Raheem Mckeon on 31-81-4767Xbwcsdmf mean volume (Bld) [Entitic vol]9.1 fLLow9.5-13.5FCorey HospitalPlatelets Auto (Bld) [#/Vol]Ordered By: Raheem Mckeon on 56-19-3917Lqhhkngyj (Bld) [#/Vol]441 10 3/sE324-795DbymylmxbToledo HospitalRBC Auto (Bld) [#/Vol]Ordered By: Raheem Mckeon on 23-73-0510LYE (Bld) [#/Vol]3.36 10 6/uLLow4.20-5.40OhioHealth Grant Medical Centererum or plasma anion gap determinationOrdered By: Raheem Mckeon on 68-37-0692Hzlcr gap [Moles/Vol]10.5 mmol/LFCorey HospitalErythrocyte distribution width Auto (RBC) [Ratio]Ordered By: Raheem Mckeon on 55-21-1022Ovjurljnloy distribution width (RBC) [Ratio]14.1 %11.0-15.0[facility] Glomerular filtration rate (GFR) estimation in non- AmericanOrdered By: Raheem Mckeon on 99-95-1396FRV/1.73 sq M.predicted among non-blacks MDRD (S/P/Bld) [Vol rate/Area]mL/min/{1.73_m2}>=60 mL/min/1.73m 2FCorey HospitalHematocrit Auto (Bld) [Volume fraction]Ordered By: Raheem Mckeon on 27-32-9662Wxixyruxue (Bld) [Volume fraction]28.2 %Low36.0-48.0[facility] HospitalHemoglobin [Mass/volume] in BloodOrdered By: Raheem Mckeon on 74-65-4139Zbqmaumvpb (Bld) [Mass/Vol]8.8 g/dLLow12.0-16.0[facility] HospitalLaboratory - Chemistry and Chemistry - challengeOrdered By: Raheem Mckeon on 65-80-3387Qmielwwct (Vitamin B12) [Mass/Vol]486 pg/aJ834-5267BfemwonqsToledo HospitalComment on above:Performed at: [facility] [id number] Director: Jeovany Bazan PhD, Phone: [phone] Ql (U)NegativeNEGATIVEToledo Hospital Glucose (U) [Mass/Vol]NegativeNEGATIVEToledo HospitalKetones Ql (U)TRACE mg/dLAbnormalNEGATIVEToledo HospitalpH (U)6.0 [pH] 5.0-9.0[facility] Centerpecific gravity (U) [Rel density]1.020 1.005-1.025T[facility]edo HospitalUrobilinogen Qn (U)1.0 {Zoraida'U}/dL0.2-1.0[facility] HospitalCalcium [Mass/Vol]8.5 mg/dL8.5-10.1FCorey HospitalChloride [Moles/Vol]108 mmol/LHigh 98-107T[facility] HospitalCO2 [Moles/Vol]27.6 mmol/L21.0-32.0 [facility] HospitalCreatinine [Mass/Vol]0.81 mg/dL0.55-1.02 [facility] HospitalGFR/1.73 sq M.predicted MDRD (S/P/Bld) [Vol rate/Area]mL/min/{1.73_m2}>=60 mL/min/1.73m 2FCorey Hospital Glucose [Mass/Vol]88 mg/nB90-746NzywkzxwsToledo HospitalMagnesium [Mass/Vol]1.8 mg/dL1.8-2.4FCorey HospitalPotassium [Moles/Vol] 3.7 mmol/L3.5-5.1FOhioHealth Van Wert Hospitalodium [Moles/Vol]143 mmol/L 136-145T[facility] HospitalUrea nitrogen [Mass/Vol]10.0 mg/dL 7.0-18.0[facility] HospitalUrea nitrogen/Creatinine [Mass ratio] 12.3 mg/mgToledo HospitalLaboratory - Specimen information Ordered By: Raheem cMkeon on 44-58-6876Pdrwjntpqz (U)CLEARCLEARFCorey HospitalColor (U)YELLOWYELLOWToledo HospitalLaboratory - UrinalysisOrdered By: Raheem Mckeon on 52-47-5345Urecdgful esterase Test strip Ql (U)TRACEAbnormalNEGATIVEToledo HospitalNitrite Ql (U)Negative NEGATIVEToledo HospitalProtein Ql (U)30 mg/dLAbnormalNEG/TRACE [facility] HospitalLeukocytes [#/volume] corrected for nucleated erythrocytes in Blood by Automated counOrdered By: Raheem Mckeon on 51-79-3370NFV corrected for nucl RBC Auto (Bld) [#/Vol]12.2 10 3/uLHigh4.0-11.0[facility] HospitalH Auto (RBC) [Entitic mass]Ordered By: Raheem Mckeon on 77-25-2656SMF (RBC) [Entitic mass]27.6 pg26.7-34.0[facility] HospitalMCHC Auto (RBC) [Mass/Vol]Ordered By: Raheem Mckeon on 65-92-2971GFBA (RBC) [Mass/Vol]31.2 g/dL29.9-35.2FCorey HospitalMCV Auto (RBC) [Entitic vol]Ordered By: Raheem Mckeon on 46-84-3088CTC (RBC) [Entitic vol]88.4 fL81.0-99.0[facility] HospitalNo Panel InformationOrdered By: Raheem Mckeon on 18-17-3739Cpmfy Occult BloodMODERATEAbnormalNEGATIVEToledo HospitalPlatelet mean volume Auto (Bld) [Entitic vol]Ordered By: Raheem Mckeon on 17-14-9215Efnnjueg mean volume (Bld) [Entitic vol]9.1 fLLow 9.5-13.5FCorey HospitalPlatelets Auto (Bld) [#/Vol]Ordered By: Raheem Mckeon on 89-05-1208Pdcrcegmo (Bld) [#/Vol]405 10 3/nN998-835JbqfyzidnToledo HospitalRBC Auto (Bld) [#/Vol]Ordered By: Raheem Mckeon on 26-95-5984DRW (Bld) [#/Vol]3.19 10 6/uLLow4.20-5.40[facility] Medical Centererum or plasma anion gap determinationOrdered By: Raheem Mckeon on 75-02-5548Tsjxi gap [Moles/Vol]11.1 mmol/LFCorey Hospital Basophils/100 WBC Manual cnt (Bld)Ordered By: Jone Gonsalves on 12-12-2024 Basophils/100 WBC (Bld)1.0 %0.2-2.0[facility] Eosinophils/100 WBC Manual cnt (Bld)Ordered By: Jone Gonsalves on 12-12-2024 Eosinophils/100 WBC (Bld)0.0 %Low0.9-7.0[facility] Erythrocyte distribution width Auto (RBC) [Ratio]Ordered By: Jone Gonsalves on 31-61-3903Xsxwotwuhlm distribution width (RBC) [Ratio]14.1 %11.0-15.0[facility] HospitalGlomerular filtration rate (GFR) estimation in non- AmericanOrdered By: Jone Gonsalves on 77-52-5160LKJ/1.73 sq M.predicted among non-blacks MDRD (S/P/Bld) [Vol rate/Area]mL/min/{1.73_m2}>=60 mL/min/1.73m 2FCorey HospitalHematocrit Auto (Bld) [Volume fraction]Ordered By: Jone Gonsalves on 59-51-6881Xtaiwsmxwi (Bld) [Volume fraction]28.9 %Low 36.0-48.0[facility] HospitalHemoglobin [Mass/volume] in Blood Ordered By: Jone Gonsalves on 30-56-0106Ryyywqyylk (Bld) [Mass/Vol]9.3 g/dLLow 12.0-16.0[facility] HospitalHypochromia LM Ql (Bld)Ordered By: Jone Gonsalves on 33-74-2045Mnpqlmvfxoe Ql (Bld)2+[facility] HospitalLaboratory - Chemistry and Chemistry - challengeOrdered By: Jone Gonsalves on 12-64-9544Dgzdnnf [Mass/Vol]8.3 mg/dLLow8.5-10.1FCorey HospitalChloride [Moles/Vol]104 mmol/U35-946NrdgsviaoToledo HospitalCO2 [Moles/Vol]27.6 mmol/L21.0-32.0[facility] HospitalCreatinine [Mass/Vol]0.62 mg/dL0.55-1.02[facility] HospitalGFR/1.73 sq M.predicted MDRD (S/P/Bld) [Vol rate/Area]mL/min/{1.73_m2}>=60 mL/min/1.73m 2 [facility] HospitalGlucose [Mass/Vol]99 mg/yH10-548QylontdltToledo HospitalPotassium [Moles/Vol]3.6 mmol/L3.5-5.1FOhioHealth Van Wert Hospitalodium [Moles/Vol]142 mmol/D298-883YtkibjsmzToledo HospitalUrea nitrogen [Mass/Vol]9.0 mg/dL7.0-18.0[facility] Urea nitrogen/Creatinine [Mass ratio]14.5 mg/mgToledo Hospital Laboratory - Chemistry and Chemistry - challengeOrdered By: Raheem Mckeon on 71-59-3496KF [Catalytic activity/Vol]30 U/I00-531MiujwmaxmToledo HospitalLaboratory - Hematology and Cell countsOrdered By: Jone Gonsalves on 11-36-5126Geyc form neutrophils/100 WBC (Bld)0.0 %0-5FCorey HospitalLymphocytes/100 WBC (Bld)7.0 %Low20.5-60.0[facility] HospitalMonocytes/100 WBC (Bld)20.0 %High1.7-12.0[facility] - Microbiology and Antimicrobial susceptibilityOrdered By: Raheem Mckeon on 35-04-7158GYFM-CoV-2 (COVID-19) RNA JOSELUIS+probe Ql (Unsp spec)Negative NEGATIVEToledo HospitalComment on above:This test has not been FDA cleared or approved, but has beenauthorized [...] diagnosis of Covid-19 under section 564(b)(1) of theSamaritan Healthcare, U.[place].C. 360bbb- 3(b)(1), unless the declaration isterminated or authorization is revoked sooner. Leukocytes [#/volume] corrected for nucleated erythrocytes in Blood by Automated counOrdered By: Jone Gonsalves on 89-54-7736ZRD corrected for nucl RBC Auto (Bld) [#/Vol]15.5 10 3/uLHigh4.0-11.0[facility] Auto (RBC) [Entitic mass]Ordered By: Jone Gonsalves on 14-36-3395LSY (RBC) [Entitic mass]28.2 pg26.7-34.0[facility] HospitalHC Auto (RBC) [Mass/Vol] Ordered By: Jone Gonsalves on 02-48-5527NBZX (RBC) [Mass/Vol]32.2 g/dL29.9-35.2 [facility] HospitalV Auto (RBC) [Entitic vol]Ordered By: Jone Gonsalves on 94-58-1330TCX (RBC) [Entitic vol]87.6 fL81.0-99.0[facility] HospitalNo Panel InformationOrdered By: Jone Gonsalves on 12-12-2024 Absolute Basophils (Manual)0.15 10 3/uLHigh0.00-0.10T[facility] HospitalBand Neutrophils # (Manual)0.0 10 3/uL0.0-0.3FCorey HospitalClumped PlateletsRAREFCorey HospitalEosinophils # (Manual)0.00 10 3/uL0.00-0.70T[facility] HospitalGiant Platelets1+ [facility] HospitalLymphocytes # (Manual)1.08 10 3/uLLow1.20-3.80 [facility] HospitalMonocytes # (Manual)3.10 10 3/uLHigh0.30-0.80 [facility] HospitalPlatelet CommentABNORMALOhioHealth Grant Medical Centeregmented Neutrophils # (Manual)11.16 10 3/uLHigh1.4-6.5FCorey HospitalPlatelet mean volume Auto (Bld) [Entitic vol]Ordered By: Jone Gonsalves on 35-13-5873Vhiddmzz mean volume (Bld) [Entitic vol]9.4 fLLow 9.5-13.5FCorey HospitalPlatelets Auto (Bld) [#/Vol]Ordered By: Jone Gonsalves on 93-08-0826Urumeduxc (Bld) [#/Vol]489 10 3/bDUuhe121-299 [facility] HospitalPolychromasia [Presence] in Blood by Light microscopyOrdered By: Jone Gonsalves on 87-27-3280Rwlpfjnnxtkae LM Ql (Bld)1+ [facility] HospitalRBC Auto (Bld) [#/Vol]Ordered By: Jone Gonsalves on 68-20-2178VVP (Bld) [#/Vol]3.30 10 6/uLLow4.20-5.40T[facility] HospitalRBC morphologyOrdered By: Jone Gonsalves on 80-39-1080ZVE morphology finding Nom (Bld)ABNORMALOhioHealth Grant Medical Centeregmented neutrophils/100 WBC Manual cnt (Bld)Ordered By: Jone Gonsalves on 12-12-2024 Segmented neutrophils/100 WBC (Bld)72.0 %43.0-75.0[facility] Medical Centererum or plasma anion gap determinationOrdered By: Jone Gonsalves on 60-09-6011Psoix gap [Moles/Vol]14.0 mmol/LFCorey Hospital Basophils Auto (Bld) [#/Vol]Ordered By: Сергей Arnett on 11-18-8925Pupfzefiu (Bld) [#/Vol]0.1 10 3/uL0.0-0.1FCorey HospitalBasophils/100 WBC Auto (Bld)Ordered By: Сергей Arnett on 51-58-5296Ansvdahpn/100 WBC (Bld)0.3 % 0.2-2.0[facility] HospitalEosinophils/100 WBC Auto (Bld)Ordered By: Сергей Arnett on 69-86-0613Wlvfnreuivd/100 WBC (Bld)0.3 %Low0.9-7.0[facility] HospitalErythrocyte distribution width Auto (RBC) [Ratio]Ordered By: Сергей Arnett on 55-50-0761Rthweiwvxul distribution width (RBC) [Ratio]14.2 % 11.0-15.0[facility] HospitalGlobulin Calc (S) [Mass/Vol]Ordered By: Сергей Arnett on 12-65-7519Fzgazrhu (S) [Mass/Vol]4.0 g/dLToledo HospitalGlomerular filtration rate (GFR) estimation in non- AmericanOrdered By: Сергей Arnett on 63-67-7970BFF/1.73 sq M.predicted among non- blacks MDRD (S/P/Bld) [Vol rate/Area]58 mL/min/{1.73_m2}Low>=60 mL/min/1.73m 2 [facility] HospitalHematocrit Auto (Bld) [Volume fraction]Ordered By: Сергей Arnett on 84-79-3145Aboiibueqd (Bld) [Volume fraction]31.2 %Low 36.0-48.0[facility] HospitalHemoglobin [Mass/volume] in Blood Ordered By: Сергей Arnett on 09-91-5940Lxqpgoenow (Bld) [Mass/Vol]10.1 g/dLLow 12.0-16.0[facility] HospitalLaboratory - Chemistry and Chemistry - challengeOrdered By: Сергей Arnett on 14-06-2596Gqspscs [Mass/Vol]2.5 g/dLLow 3.4-5.0[facility] HospitalALP [Catalytic activity/Vol]90 U/L46-116 [facility] HospitalALT [Catalytic activity/Vol]15 U/L14-59 [facility] HospitalAST [Catalytic activity/Vol]8 U/HIjk02-95 [facility] HospitalBilirubin [Mass/Vol]0.2 mg/dL0.2-1.0[facility] HospitalCalcium [Mass/Vol]8.7 mg/dL8.5-10.1FCorey HospitalChloride [Moles/Vol]104 mmol/O40-612VzwnffgmnToledo HospitalCO2 [Moles/Vol]27.5 mmol/L21.0-32.0[facility] Creatinine [Mass/Vol]0.96 mg/dL0.55-1.02[facility] GFR/1.73 sq M.predicted MDRD (S/P/Bld) [Vol rate/Area]mL/min/{1.73_m2}>=60 mL/min/1.73m 2FCorey HospitalGlucose [Mass/Vol]144 mg/dLHigh 74-106T[facility] HospitalPotassium [Moles/Vol]3.7 mmol/L3.5-5.1 [facility] HospitalProtein [Mass/Vol]6.5 g/dL6.4-8.2FOhioHealth Van Wert Hospitalodium [Moles/Vol]142 mmol/T225-368HbullqoaoToledo HospitalUrea nitrogen [Mass/Vol]13.0 mg/dL7.0-18.0[facility] HospitalUrea nitrogen/Creatinine [Mass ratio]13.5 mg/mgToledo HospitalBilirubin Ql (U)NegativeNEGATIVEToledo Hospital Glucose (U) [Mass/Vol]NegativeNEGATIVEToledo HospitalKetones Ql (U)NegativeNEGATIVEToledo HospitalpH (U)6.0 [pH]5.0-9.0 [facility] Centerpecific gravity (U) [Rel density]1.010 1.005-1.025T[facility] HospitalUrobilinogen Qn (U)0.2 {Zoraida'U}/dL0.2-1.0[facility] HospitalLaboratory - Chemistry and Chemistry - challengeOrdered By: Susie Marker on 59-37-7361Qniieee [Moles/Vol] 1.2 mmol/L0.4-2.0[facility] HospitalLaboratory - Hematology and Cell countsOrdered By: Сергей Arnett on 56-50-6588Bxfzsufu granulocytes/100 WBC (Bld)0.5 %0.0-0.5FCorey HospitalLaboratory - Specimen informationOrdered By: Сергей Arnett on 72-06-1662Pdfidymobz (U)CLEARCLEAR [facility] HospitalColor (U)LT. YELLOWYELLOWToledo HospitalLaboratory - UrinalysisOrdered By: Сергей Arnett on 12-11-2024 Leukocyte esterase Test strip Ql (U)MODERATEAbnormalNEGATIVEToledo HospitalMucus Ql (Urine sed)SMALLAbnormalNONE SEENToledo HospitalNitrite Ql (U)NegativeNEGATIVEToledo Hospital Protein Ql (U)TRACE mg/dLNEG/TRACEToledo HospitalLeukocytes [#/volume] corrected for nucleated erythrocytes in Blood by Automated coun Ordered By: Сергей Arnett on 84-98-8525LZW corrected for nucl RBC Auto (Bld) [#/Vol]15.7 10 3/uLHigh4.0-11.0[facility] HospitalLymphocytes Auto (Bld) [#/Vol]Ordered By: Сергей Arnett on 13-91-7652Ldmmcskkktn (Bld) [#/Vol]1.9 10 3/uL1.2-3.8[facility] HospitalLymphocytes/100 WBC Auto (Bld) Ordered By: Сергей Arnett on 86-58-7304Eueqdxmjwej/100 WBC (Bld)12.4 %Low20.5-60.0 [facility] Auto (RBC) [Entitic mass]Ordered By: Сергей Arnett on 46-55-8045YFE (RBC) [Entitic mass]28.3 pg26.7-34.0[facility] HospitalMCHC Auto (RBC) [Mass/Vol]Ordered By: Сергей Arnett on 12-11-2024 MCHC (RBC) [Mass/Vol]32.4 g/dL29.9-35.2FCorey HospitalMCV Auto (RBC) [Entitic vol]Ordered By: Сергей Arnett on 40-00-0089XVE (RBC) [Entitic vol] 87.4 fL81.0-99.0[facility] HospitalMonocytes Auto (Bld) [#/Vol] Ordered By: Сергей Arnett on 48-28-7071Tkqwrgypx (Bld) [#/Vol]1.3 10 3/uLHigh 0.3-0.8[facility] HospitalMonocytes/100 WBC Auto (Bld)Ordered By: Сергей Arnett on 00-87-2566Oelqkoihk/100 WBC (Bld)8.5 %1.7-12.0[facility] HospitalNeutrophils Auto (Bld) [#/Vol]Ordered By: Сергей Arnett on 25-85-0056Twghdzektvt (Bld) [#/Vol]12.2 10 3/uLHigh1.4-6.5FCorey HospitalNeutrophils/100 WBC Auto (Bld)Ordered By: Сергей Arnett on 44-27-6597Wsksesqaafm/100 WBC (Bld)78.0 %High43.0-75.0[facility] HospitalNo Panel InformationOrdered By: Сергей Arnett on 58-94-5278Elqgxtrxilt # (Auto)0.1 10 3/uL0.0-0.7FCorey HospitalImmature Granulocyte # (Auto)0.08 10 3/uLHigh0.00-0.03[facility] HospitalUrine Bacteria SMALL #/HPFAbnormalNONE [facility] HospitalUrine Culture ReflexedYES-FRMercy Health Kings Mills HospitalUrine Occult BloodLARGEAbnormal NEGATIVEToledo HospitalUrine Other CastsNONE SEEN #/LPFNONE [facility] HospitalUrine Other CrystalsNone Seen #/HPFNone [facility] HospitalUrine RBC0-2 #/HPF0-2FCorey HospitalUrine Squamous Epithelial CellsFEW #/LPFAbnormalNONE/RAREToledo HospitalUrine ZEZ57-13 #/HPFAbnormalNONE [facility] HospitalPlatelet mean volume Auto (Bld) [Entitic vol]Ordered By: Сергей Arnett on 67-27-3614Epkqpfkr mean volume (Bld) [Entitic vol]8.9 fLLow9.5-13.5 [facility] HospitalPlatelets Auto (Bld) [#/Vol]Ordered By: Сергей Arnett on 40-59-2592Zvftwsdfv (Bld) [#/Vol]529 10 3/vORhfl336-564CemjyjntiToledo HospitalRBC Auto (Bld) [#/Vol]Ordered By: Сергей Melquiades on 13-71-6992RRG (Bld) [#/Vol]3.57 10 6/uLLow4.20-5.40[facility] Medical Centererum or plasma albumin/globulin mass ratioOrdered By: Сергей Arnett on 42-48-0522Fugerbi/Globulin [Mass ratio]0.6 {ratio}[facility] Medical Centererum or plasma anion gap determinationOrdered By: Сергей Arnett on 33-67-0614Zfkfq gap [Moles/Vol]14.2 mmol/LFCorey HospitalUrine Cultureon 17-14-6786Vawwexiq identified Cx Nom (U)ORGANISM: Pseudomonas aeruginosa (O:PSEAER) [place] Count 75,000 Aerobic EVE Charge (NMIC56) SUSCEPTIBILITY ORGANISM: O:PSEAER ANTIBIOTIC INTERPRETATION EVE Amikacin S <16 Aztreonam I 8 Cefepime I 16 Ceftazidime R 16 Ceftazidime/Avibactam S <4 Ceftolozane/Tazobactam S <2 Ciprofloxacin S <0.25 Gentamicin S 4 Levofloxacin S <0.5 Meropenem S <1 Piperacillin/Tazobactam I 16 Tobramycin S <2 S = SUSCEPTIBLE I [...] RESISTANT TO ALL B-LACTAM DRUGS. PERFORMED BY: [place] [address] PATHOLOGIST ORGANIC CHEMISTRY TEACHER KATHLEEN AGUAYO M.D.NormalHca Florida Blake Hospital Physician GroupComment on above: Performed By: #### [facility] #### [place] [address] USAUrine Cultureon 61-94-6870Znfptdof identified Cx Nom (U) ORGANISM: Pseudomonas aeruginosa (O:PSEAER) [place] Count >100,000 Aerobic EVE Charge (NMIC56) SUSCEPTIBILITY [...] RESISTANT TO ALL B-LACTAM DRUGS. PERFORMED BY: [place] [address] PATHOLOGIST ORGANIC CHEMISTRY TEACHER KATHLEEN AGUAYO M.D.[facility] Physician GroupComment on above: Performed By: #### [facility] #### [place] [address] USAUrine cultureOrdered By: Cornelius Garrison on 12-02-2024 Bacteria identified Cx Nom (U)Pseudomonas aeruginosaAbnoUniversity Hospitals TriPoint Medical CenterAmbulatory Visit Summaryon 27-45-2026Xteuzremeo Visit Summary Ambulatory Visit Summary CRISTINE MANLEY :1960 Visit Date:11/26/2024 Ambulatory Visit Instructions Your Diagnosis Bladder cancer Gross hematuria Incomplete bladder emptying Smoker Your Care Team Attending Physician - MIRA TAVERAS, BRIE Primary Care Physician - CORNELIUS GARRISON MD [...] Schedule the Following Appointments Follow Up with MIRA TAVERAS, GERALDO BAIRD When: Where: Medications What How Much When Instructions Unchanged acetaminophen-hydrocodone (acetaminophen-hydrocodone 325 mg-5 mg oral tablet) 1 Tablets By Mouth 3 times a day Contact prescribing physician if questions or concerns Unchanged albuterol (ProAir HFA 90 mcg/ inh inhalation aerosol) 2 Puffs Inhalation Every 4 hours asneeded for Shortness of breath or wheezing Contact [...] 1 Tablets By Mouth Every day Contact prescribingphysician if questions or concerns Unchanged sucralfate (sucralfate [...] health care provider if you have any questionsor concerns. How do I get ready to [...] can I use t (more content not included)...[facility] CenterUrology Office/Clinic Noteon 07-22-9055Wdxtvqh Office/Clinic Note Urology Office/Clinic Note Chief Complaint [...] with voice recognition artificial intelligence software, specifically Clerk, [employer] and or zhouwu. Substitutions may have occurred due to the [...] suspectneoplasm, circumscribed morphology raises possibility for benign process, such as leiomyoma [diagnosis of exclusion]. Pt presented to [facility] ER 11/13/24 with gross hematuria of 11-day duration. Severe clot passage. Three-way Lau placed with CBI initiated. CT AP wo con 11/12/24 [facility] - There are areas of nodular hyperattenuation along the posterior wall ofbladder measuring 6.5 x 2.7 cm in greatest [...] questions have been answered, wishes to proceed. Fullinformed consent has been obtained. Will order Local [...] discuss that we will do cystoscopy 3 months,6 months, 9 months then yearly if negative. Will repeat TURBT if recurrence of tumors. Follow-up With When Contact Information MIRA TAVERAS, BRIE, URL Additional Instructions: Cysto in 3 mos Patient Education Steps to Quit Smoking Bladder Cancer I, Elvia Rey, personally scribed for Dr. Mack on 11/26/2024 09:29:58. . Documentation recorded by the Elvia stapleton, accurately reflects the services(s) I performed and decisions made by me. Authenticated by Dr. Keith Godfrey on 11/26/2024 11:20:26. Problem List/Past Medical History Ongoing Antral ulcer Asthma Bladder cancer BMI 27.0-27.9,adult Chronic back pain Chronic GERD Chronic obstructive pulmonary disease Depression Early satiety Epigastric pain GERD (gastroesophagea (more content not included)...[facility] Medical CenterComment on above:Result Comment: Electronically Signed By: BRIE MCKAY MD\.br\Date and Time Signed: 11/26/24 11:21 EDT\.br\Electronically Co- Signed By: Elvia Rey\.br\Date and Time Co-Signed: 11/26/24 09:30 EDT Ambulatory Visit Summaryon 82-14-6536Aqzfibnpzn Visit SummaryAmbulatory Visit Summary CRISTINE MANLEY :1960 Visit Date:11/18/2024 Ambulatory Visit Instructions Your Care Team Attending Physician - Roselyn Leon Primary Care Physician - CORNELIUS GARRISON MD [...] Esophagogastroduodenoscopy, Repair of laceration of vagina, Tonsillectomy. What to do next Scheduled Follow-Up Appointments Monday 8:45 AM EDT With: BRIE MCKAY MD Where: [facility] [address], [address] [place] [address]- Medications What How Much When Instructions Unchanged acetaminophen-hydrocodone (acetaminophen-hydrocodone 325 mg-5 mg oral tablet) 1 Tablets By Mouth 3 times a day Unchanged albuterol (ProAir HFA 90 mcg/ inh inhalation aerosol) 2 Puffs Inhalation Every 4 hours asneeded for Shortness of breath or wheezing Unchanged [...] signed up for this yet, please contact [employer] at [phone] to get signed up today. Language Information Language assistance services are available as needed. [facility] Medical CenterActivated partial thromboplastin time (aPTT) in platelet poor plasma by coagulation aOrdered By: Gianni France on 96-47-5467aPAO Coag (PPP) [Time]25.6 s22.3-36.2FCorey HospitalBasophils Auto (Bld) [#/Vol]Ordered By: Gianni France on 90-35-5224Dmwsbnsme (Bld) [#/Vol]0.1 10 3/uL0.0-0.1FCorey HospitalBasophils/100 WBC Auto (Bld)Ordered By: Gianni France on 11-13-2024 Basophils/100 WBC (Bld)0.6 %0.2-2.0[facility] Eosinophils/100 WBC Auto (Bld)Ordered By: Gianni France on 11-13-2024 Eosinophils/100 WBC (Bld)2.1 %0.9-7.0[facility] Erythrocyte distribution width Auto (RBC) [Ratio]Ordered By: Gianni France on 22-20-4131Bheasjhapyb distribution width (RBC) [Ratio]13.8 % 11.0-15.0[facility] HospitalEstimated glomerular filtration rate (GFR) non- AmericanOrdered By: Gianni France on 70-04-9682WNE/1.73 sq M.predicted among non-blacks MDRD (S/P/Bld) [Vol rate/Area]mL/min/{1.73_m2} >=60 mL/min/1.73m 2FCorey HospitalHematocrit Auto (Bld) [Volume fraction]Ordered By: Gianni France on 90-77-7888Begewrpxyh (Bld) [Volume fraction]33.7 %Low36.0-48.0[facility] HospitalHemoglobin [Mass/volume] in BloodOrdered By: Gianni France on 28-84-6593Hzaqgxkwai (Bld) [Mass/Vol]11.0 g/dLLow12.0-16.0T[facility] HospitalINR in Platelet poor plasma by Coagulation assayOrdered By: Gianni France on 14-70-5082UOX Coag (PPP) [Relative time]0.98 {INR}[facility] HospitalComment on above:DESIRED INR:2.0-3.0 CONDITIONS NOT LISTED BELOW2.5-3.5 FOR PROSTHETIC HEART VALVE REPLACEMENT2.5-3.5 RECURRENT THROMBOSISLon 11-13-2024 L Specimen: [id number] Received: 11/13/24 Status: OMAR Lopestyree Num: [id number] Spec Type: Surgical Subm Dr: Brie Mckay MD Tissues: A Urinary Bladder - TUR (BLADDER TUMOR) Procedures: RIMA/Devonte Queen/Rylee L5 Age/ Patient Sex Location Account Attending Physician Cristine Manley 64/F [facility] [id number] Brie Mckay MD SPEC NUM: [id number] RECD: 11/13/24 STATUS: OMAR ACEVES NUM: [id number] TORI: 11/13/[address] [facility] [address]: Brie Mckay MD ENTERED: 11/13/[address] [facility] [address]: Tracy Matta SPEC TYPE: Surgical DEPT: KEN BULL ENTERED BY: [id number] RECV BY: [id number] ORDERED: HE/6, Gross/Micro L5 ORDERED: HE/6, Gross/Micro [...] and entirely submitted in A1?A6. (6, ns, [id number]) Microscopic Description Microscopic examination is performed. Specimen: [id number] Received: 11/13/24 Status: OMAR Freddy Num: [id number] Spec Type: Surgical Subm Dr: Brie Mckay MD Tissues: A Urinary Bladder - TUR (BLADDER TUMOR) Procedures: HE/6, Gross/Micro L5 Patient: Cristine Manley [id number] (Continued) Specimen: [id number] Received: 11/13/24 (Continued) Signed (signature on file) Gianni Hutchinson MD 11/14/24 1301 Specimen: [id number] Received: 11/13/24 Status: OMAR Aceves Num: [id number] Spec Type: Surgical Subm Dr: Brie Mckay MD Tissues: A Urinary Bladder - TUR (BLADDER TUMOR) Procedures: RIMA/Devonte Queen/Rylee L5 Patient: Cristine Manley [id number] (Continued) Specimen: [id number] Received: 11/13/24 (Continued) CPT Codes 72290 Specimen: [id number] Received: 11/13/24 Status: OMAR Aceves Num: [id number] Spec Type: Surgical Subm Dr: Brie Mckay MD Tissues: A Urinary Bladder - TUR (BLADDER TUMOR) Procedures: HE/Bernice Gross/Micro L5 Patient: Cristine Manley [id number] (Continued) Signed (signature on file) Gianni Hutchinson MD 11/14/24 1301Normal [facility] Chemistry and Chemistry - challenge Ordered By: Gianni France on 49-80-1670Rspvjwb [Mass/Vol]8.9 mg/dL 8.5-10.1FCorey HospitalChloride [Moles/Vol]108 mmol/LHigh 98-107[facility] HospitalCO2 [Moles/Vol]28.2 mmol/L21.0-32.0 [facility] HospitalCreatinine [Mass/Vol]0.65 mg/dL0.55-1.02 [facility] HospitalGFR/1.73 sq M.predicted MDRD (S/P/Bld) [Vol rate/Area]mL/min/{1.73_m2}>=60 mL/min/1.73m 2FCorey Hospital Glucose [Mass/Vol]98 mg/aJ11-973RgwwyluinToledo HospitalMagnesium [Mass/Vol]2.0 mg/dL1.8-2.4FCorey HospitalPotassium [Moles/Vol] 4.1 mmol/L3.5-5.1FOhioHealth Van Wert Hospitalodium [Moles/Vol]143 mmol/L 136-145[facility] HospitalUrea nitrogen [Mass/Vol]21.0 mg/dLHigh 7.0-18.0[facility] HospitalUrea nitrogen/Creatinine [Mass ratio] 32.3 mg/mgToledo HospitalLaboratory - Hematology and Cell countsOrdered By: Gianni France on 24-35-4800Btqklfqy granulocytes/100 WBC (Bld)0.3 %0.0-0.5FCorey HospitalLeukocytes [#/volume] corrected for nucleated erythrocytes in Blood by Automated counOrdered By: Gianni France on 68-39-0901ZTN corrected for nucl RBC Auto (Bld) [#/Vol] 9.8 10 3/uL4.0-11.0[facility] HospitalLymphocytes Auto (Bld) [#/Vol]Ordered By: Gianni France on 59-95-6373Nfkizmhkmpt (Bld) [#/Vol] 2.9 10 3/uL1.2-3.8[facility] HospitalLymphocytes/100 WBC Auto (Bld)Ordered By: Gianni France on 58-78-8110Ouyrltkvvlp/100 WBC (Bld)29.7 %20.5-60.0[facility] Auto (RBC) [Entitic mass]Ordered By: Gianni France on 82-08-3426BUY (RBC) [Entitic mass]29.5 pg26.7-34.0 [facility] HospitalMCHC Auto (RBC) [Mass/Vol]Ordered By: Gianni France on 84-56-3482EVTF (RBC) [Mass/Vol]32.6 g/dL29.9-35.2 [facility] HospitalMCV Auto (RBC) [Entitic vol]Ordered By: Gianni France on 00-93-6620DYQ (RBC) [Entitic vol]90.3 fL81.0-99.0 [facility] HospitalMonocytes Auto (Bld) [#/Vol]Ordered By: Gianni France on 62-58-8434Kuekugjqh (Bld) [#/Vol]0.6 10 3/uL0.3-0.8 [facility] HospitalMonocytes/100 WBC Auto (Bld)Ordered By: Gianni France on 16-68-7379Wqhnvtgkj/100 WBC (Bld)6.4 %1.7-12.0[facility] HospitalNeutrophils Auto (Bld) [#/Vol]Ordered By: Gianni France on 77-58-7767Psygrsngsgt (Bld) [#/Vol]6.0 10 3/uL1.4-6.5[facility] Medical CenterNeutrophils/100 WBC Auto (Bld)Ordered By: Gianni France on 07-83-0003Gprcnmpswur/100 WBC (Bld)60.9 %43.0-75.0[facility] HospitalNo Panel InformationOrdered By: Gianni France on 32-09-7740Embxwrlezdx # (Auto)0.2 10 3/uL0.0-0.7FCorey HospitalImmature Granulocyte # (Auto)0.03 10 3/uL0.00-0.03[facility] HospitalPlatelet mean volume Auto (Bld) [Entitic vol]Ordered By: Gianni France on 70-45-7793Ggelimsb mean volume (Bld) [Entitic vol]9.8 fL 9.5-13.5FCorey HospitalPlatelets Auto (Bld) [#/Vol]Ordered By: Gianni France on 47-19-1024Rcucwuwhr (Bld) [#/Vol]295 10 3/jP602-956 [facility] HospitalProthrombin time (PT)Ordered By: Gianni France on 84-57-9128PC Coag (PPP) [Time]10.4 s9.0-11.6FCorey HospitalRBC Auto (Bld) [#/Vol]Ordered By: Gianni France on 84-89-8251OTU (Bld) [#/Vol]3.73 10 6/uLLow4.20-5.40OhioHealth Grant Medical Centererum or plasma anion gap determinationOrdered By: Gianni France on 37-92-6798Yweqf gap [Moles/Vol]10.9 mmol/LFCorey Hospital Basophils Auto (Bld) [#/Vol]Ordered By: Delvin Campbell on 22-88-7852Muohgymey (Bld) [#/Vol]0.1 10 3/uL0.0-0.1FCorey HospitalBasophils/100 WBC Auto (Bld)Ordered By: Delvin Campbell on 15-78-3615Qjuuexion/100 WBC (Bld)0.8 %0.2-2.0[facility] HospitalEosinophils/100 WBC Auto (Bld)Ordered By: Delvin Campbell on 31-26-8077Yetncmeiaqa/100 WBC (Bld)3.3 %0.9-7.0[facility] HospitalErythrocyte distribution width Auto (RBC) [Ratio]Ordered By: Delvin Campbell on 47-56-0316Uwcgbhjnzhm distribution width (RBC) [Ratio]13.7 %11.0-15.0[facility] HospitalEstimated glomerular filtration rate (GFR) non- AmericanOrdered By: Delvin Campbell on 36-90-6505PHP/1.73 sq M.predicted among non-blacks MDRD (S/P/Bld) [Vol rate/Area]mL/min/{1.73_m2}>=60 mL/min/1.73m 2FCorey HospitalHematocrit Auto (Bld) [Volume fraction]Ordered By: Delvin Campbell on 41-30-2036Ezlvczgrnf (Bld) [Volume fraction]35.5 %Low36.0-48.0[facility] HospitalHemoglobin [Mass/volume] in BloodOrdered By: Delvin Campbell on 57-36-3413Jaibivzzrs (Bld) [Mass/Vol]11.4 g/dLLow12.0-16.0[facility] HospitalLaboratory - Chemistry and Chemistry - challengeOrdered By: Delvin Campbell on 11-12-2024 Calcium [Mass/Vol]9.9 mg/dL8.5-10.1FCorey HospitalChloride [Moles/Vol]105 mmol/E30-688WjlmndkebToledo HospitalCO2 [Moles/Vol]29.6 mmol/L21.0-32.0[facility] HospitalCreatinine [Mass/Vol]0.82 mg/dL 0.55-1.02[facility] HospitalGFR/1.73 sq M.predicted MDRD (S/P/Bld) [Vol rate/Area]mL/min/{1.73_m2}>=60 mL/min/1.[address]m [address] [place], [place] [address]Glucose [Mass/Vol]107 mg/dHSlns49-229IpkjyodbmToledo Hospital Potassium [Moles/Vol]3.5 mmol/L3.5-5.1FOhioHealth Van Wert Hospitalodium [Moles/Vol]141 mmol/P041-142XgfhibqbeToledo HospitalUrea nitrogen [Mass/Vol]20.0 mg/dLHigh7.0-18.0[facility] HospitalUrea nitrogen/Creatinine [Mass ratio]24.4 mg/mgToledo Hospital Bilirubin Ql (U)NegativeNEGATIVEToledo HospitalGlucose (U) [Mass/Vol]NegativeNEGATIVEToledo HospitalKetones Ql (U)TRACE mg/dLAbnormalNEGMemorial Health System Selby General HospitalpH (U)7.0 [pH]5.0-9.0 [facility] Medical Centerpecific gravity (U) [Rel density]1.020 1.005-1.025T[facility] HospitalUrobilinogen Qn (U)1.0 {Zoraida'U}/dL0.2-1.0[facility] HospitalLaboratory - Hematology and Cell countsOrdered By: Delvin Campbell on 04-06-3102Ihwkmtue granulocytes/100 WBC (Bld)0.3 %0.0-0.5FCorey HospitalLaboratory - Specimen informationOrdered By: Delvin Campbell on 53-24-3454Wkxwiabvyx (U)CLEARCLEAR [facility] HospitalColor (U)DK. REDYELLOWToledo HospitalLaboratory - UrinalysisOrdered By: Delvin Campbell on 11-12-2024 Leukocyte esterase Test strip Ql (U)TRACEAbnormalNEGMemorial Health System Selby General HospitalMucus Ql (Urine sed)NONE SEENNONE SEENToledo HospitalNitrite Ql (U)PositiveAbnormalNEGMemorial Health System Selby General Hospital Protein Ql (U)>=300 mg/dLAbnormalNEG/TRACEToledo Hospital Leukocytes [#/volume] corrected for nucleated erythrocytes in Blood by Automated counOrdered By: Delvin Campbell on 42-49-3775DWC corrected for nucl RBC Auto (Bld) [#/Vol]7.7 10 3/uL4.0-11.0[facility] HospitalLymphocytes Auto (Bld) [#/Vol]Ordered By: Delvin Campbell on 21-68-2938Wwkfpnpzfmp (Bld) [#/Vol]2.5 10 3/uL1.2-3.8[facility] HospitalLymphocytes/100 WBC Auto (Bld)Ordered By: Delvin Campbell on 71-54-6923Nlpyscsexas/100 WBC (Bld)32.9 % 20.5-60.0[facility] HospitalH Auto (RBC) [Entitic mass]Ordered By: Delvin Campbell on 03-27-6085IEU (RBC) [Entitic mass]29.2 pg26.7-34.0[facility] HospitalMCHC Auto (RBC) [Mass/Vol]Ordered By: Delvin Campbell on 16-48-0938DLIX (RBC) [Mass/Vol]32.1 g/dL29.9-35.2FCorey HospitalMCV Auto (RBC) [Entitic vol]Ordered By: Delvin Campbell on 18-36-2732UYF (RBC) [Entitic vol]91.0 fL81.0-99.0[facility] HospitalMonocytes Auto (Bld) [#/Vol]Ordered By: Delvin Campbell on 62-98-6257Qnoahoghc (Bld) [#/Vol] 0.6 10 3/uL0.3-0.8[facility] HospitalMonocytes/100 WBC Auto (Bld) Ordered By: Delvin Campbell on 97-61-3204Yoftgbfos/100 WBC (Bld)8.1 %1.7-12.0 [facility] HospitalNeutrophils Auto (Bld) [#/Vol]Ordered By: Delvin Campbell on 87-72-5919Vpofnpjzcao (Bld) [#/Vol]4.2 10 3/uL1.4-6.5FCorey HospitalNeutrophils/100 WBC Auto (Bld)Ordered By: Delvin Campbell on 07-07-5535Whoypqnrbow/100 WBC (Bld)54.6 %43.0-75.0[facility] HospitalNo Panel InformationOrdered By: Delvin Campbell on 21-65-4073Cissqsijuwn # (Auto)0.3 10 3/uL0.0-0.7FCorey HospitalImmature Granulocyte # (Auto)0.02 10 3/uL0.00-0.03[facility] HospitalUrine BacteriaNONE SEEN #/HPFNONE SEENToledo HospitalUrine Culture ReflexedNO [facility] HospitalUrine Occult BloodLARGEAbnormalNEGATIVE [facility] HospitalUrine Other CastsNONE SEEN #/LPFNONE SEEN [facility] HospitalUrine Other CrystalsNone Seen #/HPFNone Seen [facility] HospitalUrine EIU23-63 #/HPFAbnormal0-2FCorey HospitalUrine Squamous Epithelial CellsNONE SEEN #/LPFNONE/RARE [facility] HospitalUrine WBC0-2 #/HPFAbnormalNONE SEENToledo HospitalPlatelet mean volume Auto (Bld) [Entitic vol]Ordered By: Delvin Campbell on 64-64-3561Sshtnltp mean volume (Bld) [Entitic vol]9.5 fL 9.5-13.5FCorey HospitalPlatelets Auto (Bld) [#/Vol]Ordered By: Delvin Campbell on 83-01-2225Ribehupna (Bld) [#/Vol]301 10 3/vF978-985ArfaydcglToledo HospitalRBC Auto (Bld) [#/Vol]Ordered By: Delvin Campbell on 43-85-3860MDP (Bld) [#/Vol]3.90 10 6/uLLow4.20-5.40OhioHealth Grant Medical Centererum or plasma anion gap determinationOrdered By: Delvin Campbell on 64-42-8392Ztkhj gap [Moles/Vol]9.9 mmol/LFCorey Hospital Laboratory - Chemistry and Chemistry - challengeOrdered By: Carlin Oleary on 99-45-1190Ennmfpwpr Ql (U)COLOR INTERFERENCEAbnormalNEGMemorial Health System Selby General HospitalKetones Ql (U)COLOR INTERFERENCE mg/dLAbnormalNEGUniversity Hospitals Portage Medical Centerpecific gravity (U) [Rel density]1.0151.005-1.025 [facility] HospitalLaboratory - Specimen informationOrdered By: Carlin Oleary on 62-92-4272Rzzziqrzlx (U)CLOUDYAbnormalCLEKettering Health Behavioral Medical CenterColor (U)DK. REDYELLOWToledo HospitalLaboratory - UrinalysisOrdered By: Carlin Oleary on 36-87-7396Mfviayevx esterase Test strip Ql (U)COLOR INTERFERENCEAbnormalNEGMemorial Health System Selby General HospitalMucus Ql (Urine sed)NONE SEENNONE [facility] HospitalNitrite Ql (U) COLOR INTERFERENCEAbnormalNEGMemorial Health System Selby General HospitalProtein Ql (U)COLOR INTERFERENCE mg/dLAbnormalNEG/TRACEToledo HospitalNo Panel InformationOrdered By: Carlin Oleary on 83-77-1879Priku BacteriaTRACE #/HPF AbnormalNONE [facility] HospitalUrine Culture ReflexedYES-[facility] Hospital - DublinUrine Glucose (UA)COLOR INTERFERENCE mg/dL AbnormalNEGMemorial Health System Selby General HospitalUrine Occult BloodCOLOR INTERFERENCEAbnormalNEGMemorial Health System Selby General HospitalUrine Other Casts NONE SEEN #/LPFNONE [facility] HospitalUrine Other Crystals None Seen #/HPFNone [facility] HospitalUrine pHCOLOR INTERFERENCEAbnormal5.0-9.0[facility] HospitalUrine RBC>100 #/HPF Abnormal0-2FCorey HospitalUrine Squamous Epithelial CellsNONE SEEN #/LPFNONE/RAREToledo HospitalUrine UrobilinogenCOLOR INTERFERENCE EU/dLAbnormal0.2-1.0[facility] HospitalUrine WXK05-20 #/HPFAbnormalNONE [facility] HospitalUrine Cultureon 25-49-9398Syrsxszy identified Cx Nom (U)>100,000 colonies/ml mixed bacterial skin contaminants 2 Days PERFORMED BY: [address] [address] [place] [address] PATHOLOGIST ORGANIC CHEMISTRY TEACHER KATHLEEN AGUAYO M.D.NormalThe On License Of Unc Medical Center Physician GroupComment on above: Performed By: #### CUU #### [facility] [address] [id number] USAUrine cultureOrdered By: Cornelius Garrison on 11-03-2024 Bacteria identified Cx Nom (U)2 DaysToledo HospitalC DIFFICILE BY PCRon ROS9KbpmjkeoUgxbejMwqsyeomwmp NegativeProParkland Memorial HospitalComment on above:Result Comment: Assay methodology is nucleic acid amplification by real-time PCR for detection of C. difficile toxin gene sequences performed on [employer].Performed By: #### CDFPCR #### [facility] ([facility]) [address] [place] [address] VIRTOXIGENIC C DIFFNegativeNormalNegativeProParkland Memorial HospitalComment on above:Performed By: #### CDFPCR #### [facility] ([facility]) [address] [place] [address] VIRCBC WITH AUTO DIFFERENTIALon 61-48-7426ZGNRMJZVF ABSOLUTE COUNT (10*3/UL) BY AUTOMATED COUNT0.1 10*3/uLNormal0.0-0.2POhioHealth O'Bleness HospitalComment on above:Performed By: #### CBCA #### [facility] ([facility]) [address] [place] [address] VIRBASOPHILS RELATIVE PERCENT BY AUTOMATED COUNT0.7 %Normal [facility] HospitalComment on above:Performed By: #### CBCA #### [facility] ([facility]) [address] [place] [address] [place] [address] VIRCELLAVISION DIFFERENTIAL TYPEAUTOMATED DIFFERENTIALNormal [facility] HospitalComment on above:Performed By: #### CBCA #### [facility] ([facility]) [address] [place] [address] VIREosinophils (Bld) [#/Vol]0.1 10*3/uLNormal0.0-0.4L[facility] Memorial HospitalComment on above:Performed By: #### CBCA #### [facility] ([address] [place] [address] VIREOSINOPHILS RELATIVE PERCENT BY AUTOMATED COUNT1.2 %Normal [facility] HospitalComment on above:Performed By: #### CBCA #### [facility] ([address] [place] [address] VIRErythrocyte distribution width (RBC) [Ratio]13.2 %Normal 11.5-15ProParkland Memorial HospitalComment on above:Performed By: #### CBCA #### [facility] ([address] [place] [address] VIRHematocrit (Bld) [Volume fraction]41.7 %Mkktey64-47 [facility] HospitalComment on above:Performed By: #### CBCA #### [facility] ([address] [place] [address] VIRHemoglobin (Bld) [Mass/Vol]14.1 g/aQQfiaxa82.7-15.5 [facility] HospitalComment on above:Performed By: #### CBCA #### [facility] ([address] [place] [address] VIRLYMPHOCYTES ABSOLUTE COUNT (10*3/UL) BY AUTOMATED COUNT1.7 10*3/uLNormal1.0-3.5PPlaquemines Parish Medical Centerica Fresno Surgical HospitalComment on above:Performed By: #### CBCA #### [facility] ([address] [place] [address] VIRLYMPHOCYTES RELATIVE PERCENT BY AUTOMATED COUNT18.1 %Normal [facility] HospitalComment on above:Performed By: #### CBCA #### [facility] ([address] [place] [address] VIRMCH (RBC) [Entitic mass]29.8 yjDoyweo53-20BbwHhaikzLicking Memorial HospitalComment on above:Performed By: #### CBCA #### [facility] ([facility]) [address] [place], [place] [address]. [place] [address] VIRMCHC (RBC) [Mass/Vol]33.9 g/sLTsqmdc02-31ObnGbautwParkland Memorial HospitalComment on above:Performed By: #### CBCA #### [facility] ([address] [place] [address] VIRMCV (RBC) [Entitic vol]88 eOGmedqp53-137LdkFkivol [facility] HospitalComment on above:Performed By: #### CBCA #### [facility] ([address] [place] [address] VIRMONOCYTES ABSOLUTE COUNT (10*3/UL) BY AUTOMATED COUNT1.3 10*3/uLHigh0.0-0.9[facility] Memorial HospitalCombeaumont hospital on above:Performed By: #### CBCA #### [facility] ([address] [place] [address] VIRMONOCYTES RELATIVE PERCENT BY AUTOMATED COUNT14.3 %Normal [facility] HospitalCombeaumont hospital on above:Performed By: #### CBCA #### [facility] ([address] [place] [address] VIRNEUTROPHILS ABSOLUTE COUNT BY AUTOMATED COUNT6.1 10*3/uL Normal1.5-6.6L[facility] Memorial HospitalCombeaumont hospital on above:Performed By: #### CBCA #### [facility] ([address] [place] [address] VIRNEUTROPHILS RELATIVE PERCENT BY AUTOMATED COUNT65.7 %Normal [facility] HospitalCombeaumont hospital on above:Performed By: #### CBCA #### [facility] ([address] [place] [address] VIRPlatelet mean volume (Bld) [Entitic vol]7.7 fLNormal7-12 [facility] HospitalComment on above:Performed By: #### CBCA #### [facility] ([address] [place] [address] VIRPlatelets (Bld) [#/Vol]376 10*3/wANjycvm775-726EzcDhgzff [facility] HospitalComment on above:Performed By: #### CBCA #### [facility] ([address] [place] [address] VIRRBC COUNT4.74 X10E12/LNormal3.8-5.2POhioHealth O'Bleness HospitalComment on above:Performed By: #### CBCA #### [facility] ([address] [place] [address] VIRWBC (Bld) [#/Vol]9.3 10*3/uLNormal4-11ProParkland Memorial HospitalComment on above:Performed By: #### CBCA #### [facility] ([address] [place] [address] VIRCOMPREHENSIVE METABOLIC PANELon 93-95-9142Dtpmhht [Mass/Vol]3.5 g/dLNormal3.2-5.3POhioHealth O'Bleness HospitalComment on above: Performed By: #### CMP #### [facility] ([address] [place] [address] VIRALP [Catalytic activity/Vol]69 U/UErmcjq72-717DqbGbkvlfParkland Memorial HospitalComment on above:Performed By: #### CMP #### [facility] ([address] [place] [address] VIRALT [Catalytic activity/Vol]20 U/LNormal<=31POhioHealth O'Bleness HospitalComment on above:Performed By: #### CMP #### [facility] ([address] [place] [address] VIRAnion gap [Moles/Vol]10 mmol/LNormal5-15ProParkland Memorial HospitalComment on above:Performed By: #### CMP #### [facility] ([address] [place] [address] VIRAST [Catalytic activity/Vol]14 U/LNormal<=41ProParkland Memorial HospitalComment on above:Performed By: #### CMP #### [facility] ([address] [place] [address] VIRBilirubin [Mass/Vol]0.4 mg/dLNormal0.3-1.2POhioHealth O'Bleness HospitalComment on above:Performed By: #### CMP #### [facility] ([address] [place] [address] VIRCalcium [Mass/Vol]8.9 mg/dLNormal8.5-10.5POhioHealth O'Bleness HospitalComment on above:Performed By: #### CMP #### [facility] ([address] [place] [address] VIRChloride [Moles/Vol]102 mmol/MKbgpzc58-778WdfRmgsilParkland Memorial HospitalComment on above:Performed By: #### CMP #### [facility] ([address] [place] [address] VIRCO2 [Moles/Vol]25 mmol/IKjdoct39-14UpiByjsfuOhioHealth O'Bleness HospitalComment on above:Performed By: #### CMP #### [facility] ([address] [place] [address] VIRCreatinine [Mass/Vol]0.89 mg/dLNormal0.40-1.00ProParkland Memorial HospitalComment on above:Result Comment: METHOD TRACEABLE TO IDMS STANDARDPerformed By: #### CMP #### [facility] ([address] [place] [address] VIRGFR/1.73 sq M.predicted among non-blacks MDRD (S/P/Bld) [Vol rate/Area]72 mL/min/{1.73_m2}Normal>=60ProParkland Memorial HospitalComment on above:Result Comment: eGFR not reported due to non-numeric value for Creatinine. Reported eGFR is based on the CKD-EPI 2020 equation that does not use a race coefficient.Performed By: #### CMP #### [facility] ([address] [address] VIRGlucose [Mass/Vol]111 mg/cYSpfq18-30BsjWzkeaaParkland Memorial HospitalComment on above:Performed By: #### CMP #### [address] [address] VIRPotassium [Moles/Vol]3.4 mmol/LLow3.5-5.0ProParkland Memorial HospitalComment on above:Performed By: #### CMP #### [address] [address] VIRProtein [Mass/Vol]6.6 g/dLNormal6.0-8.0ProParkland Memorial HospitalComment on above:Performed By: #### CMP #### [address] [address] VIRSodium [Moles/Vol]137 mmol/CItjydk812-111RgrPpkoqy [facility] HospitalComment on above:Performed By: #### CMP #### [address] [address] VIRUrea nitrogen [Mass/Vol]20 mg/dLNormal5-27ProParkland Memorial HospitalComment on above:Performed By: #### CMP #### [address] [address] VIRCT ABDOMEN AND PELVIS W CONTon 96-38-4945WH ABDOMEN AND PELVIS W CONTCT ABDOMEN AND PELVIS W CONT CT ABDOMEN [...] volume loss right interpolar kidney, associated dystrophic calcification,0.6 cm. Moderate severe atherosclerotic disease abdominal aorta. [...] by Chico Cordova MD on 10/01/2024 8:37 AMNormalLicking Memorial HospitalGI PANEL STOOL PATHOGEN PANELon 78-92-0009QDHLUZFXCHVxy detectedNormal Not DetectedProParkland Memorial HospitalComment on above:Performed By: #### GIP #### [facility] ([facility]) [address] [place] [address] VIRAGGREGATIVE E COLINot detectedNormalNot DetectedProParkland Memorial HospitalComment on above:Performed By: #### GIP #### [facility] ([facility]) [address] [place] [address] VIRASTROVIRUSNot detectedNormalNot DetectedProParkland Memorial HospitalComment on above:Performed By: #### GIP #### [facility] ([facility]) [address] [place] [address] VIRCAMPYLOBACTERDetectedAbnormalNot DetectedProParkland Memorial HospitalComment on above:Result Comment: Detects the following: C. jejuni, C. coli, C. upsaliensis.Performed By: #### GIP #### [facility] ([facility]) [address] [place] [address] VIRCRYPTOSPORIDIUMNot detectedNormalNot DetectedProParkland Memorial HospitalComment on above:Performed By: #### GIP #### [facility] ([facility]) [address] [place] [address] VIRCYCLOSPORANot detectedNormalNot DetectedProParkland Memorial HospitalComment on above:Performed By: #### GIP #### [facility] ([facility]) [address] [place] [address] VIRE HISTOLYTICANot detectedNormalNot DetectedProParkland Memorial HospitalComment on above:Performed By: #### GIP #### [facility] ([facility]) [address] [place] [address] VIRGIARDIA LAMBLIANot detectedNormalNot DetectedProFulton County Health Center HospitalComment on above:Performed By: #### GIP #### [facility] ([facility]) [address] [place] [address] VIRNOROVIRUSNot detectedNormalNot DetectedProFulton County Health Center HospitalComment on above:Performed By: #### GIP #### [facility] ([facility]) [address] [place] [address] VIRPATHOGENIC E COLIDetectedAbnormalNot DetectedProParkland Memorial HospitalComment on above:Result Comment: Enteropathogenic Escherichia coliPerformed By: #### GIP #### [facility] ([facility]) [address] [place] [address] VIRPLESIOMONASNot detectedNormalNot DetectedProFulton County Health Center HospitalComment on above:Performed By: #### GIP #### [facility] ([facility]) [address] [place] [address] VIRROTAVIRUS ANot detectedNormalNot DetectedProFulton County Health Center HospitalComment on above:Performed By: #### GIP #### [facility] ([facility]) [address] [place] [address] VIRSALMONELLANot detectedNormalNot DetectedProFulton County Health Center HospitalComment on above:Performed By: #### GIP #### [facility] ([facility]) [address] [place] [address] VIRSAPOVIRUSNot detectedNormalNot DetectedProFulton County Health Center HospitalComment on above:Performed By: #### GIP #### [facility] ([facility]) [address] [place] [address] VIRSHIGA TOXIN E COLINot detectedNormalNot DetectedProFulton County Health Center HospitalComment on above:Performed By: #### GIP #### [facility] ([facility]) [address] [place] [address] VIRSHIGELLA-E COLINot detectedNormalNot DetectedProFulton County Health Center HospitalComment on above:Performed By: #### GIP #### [facility] ([facility]) [address] [place] [address] VIRTOXIGENIC E COLINot detectedNormalNot DetectedProFulton County Health Center HospitalComment on above:Performed By: #### GIP #### [facility] ([facility]) [address] [place] [address] VIRVIBRIONot detectedNormalNot DetectedProFulton County Health Center HospitalComment on above:Performed By: #### GIP #### [facility] ([facility]) [address] [place] [address] VIRVIBRIO CHOLERAENot detectedNormalNot DetectedProParkland Memorial HospitalComment on above:Performed By: #### GIP #### [facility] ([facility]) [address] [place] [address] JURGEN. ENTEROCOLITICANot detectedNormalNot DetectedProParkland Memorial HospitalComment on above:Performed By: #### GIP #### [facility] ([facility]) [address] [place] [address] VIRLIPASEon [id number] [Catalytic activity/Vol]32 U/L Vivihz99-66BexSoxtyzLicking Memorial HospitalComment on above:Performed By: #### LIPA #### [facility] ([address] [address] VIRMAGNESIUMon 62-19-2221Zxpakwicn [Mass/Vol]1.9 mg/dLNormal 1.8-2.6ProParkland Memorial HospitalComment on above:Performed By: #### MG #### [address] [address] VIRPOCT NURSING URINE MACROSCOPIC UAon 20-48-4877FXCVFALAF SHANT NegativeNormalNegativeLicking Memorial HospitalComment on above:Performed By: #### NUM #### [address] [address] VIRBLOOD/HGB NURModerateAbnormalNegativeLicking Memorial HospitalComment on above:Performed By: #### NUM #### [facility] ([address] [address] VIRGLUCOSE NURNegativeNormalNegativeLicking Memorial Hospital Comment on above:Performed By: #### NUM #### [facility] ([address] [address] VIRKETONES NURNegativeNormalNegativeLicking Memorial Hospital Comment on above:Performed By: #### NUM #### [facility] ([address] [place] [address] VIRLEUKOCYTE ESTERASE NURNegativeNormalNegativeLicking Memorial HospitalComment on above:Performed By: #### NUM #### [facility] ([address] [address] VIRNITRITE NURNegativeNormalNegativeLicking Memorial Hospital Comment on above:Performed By: #### NUM #### [facility] ([address] [address] VIRPH NUR6.6Nubzxd2.0, 6.0, 6.5, 7.0, 7.5, 8.0, 8.5, 5.5 Licking Memorial HospitalComment on above:Performed By: #### NUM #### [facility] ([address] [address] VIRPROTEIN NURTraceAbnormalNegativeLicking Memorial Hospital Comment on above:Performed By: #### NUM #### [facility] ([address] [address] VIRSPECIFIC GRAVITY SHANT<=1.818Txrmvlmz7.010, 1.015, 1.020, 1.025Licking Memorial HospitalComment on above:Performed By: #### NUM #### [facility] ([address] [address] VIRUROBILINOGEN NUR0.2 E.U./dLNormOhioHealth Van Wert Hospital Comment on above:Performed By: #### NUM #### [facility] ([address] [place] [place] [address] VIRCT Spine Lumbar Myelogram w/ Contraston 43-74-7633GV Spine Lumbar Myelogram w/ ContrastCLINICAL HISTORY: Pain and radiculopathy. EXAMINATION: Contiguous axial images were obtained through the lumbar spine following the intrathecal administration of contrast as previously described. This is supplemented with reformatted coronal and sagittalimages and compared to a previous examination dated 02/23/2024. FINDINGS: Vertebral body heights and alignment are maintained. There is no acute fracture or dislocation. There is minimal endplate bone spurring throughout the lumbar spine. There is loss of disc space heightwith sclerosis and vacuum disc effect at T11-T12. [...] dimension at and has not significantly changed. Thereis facet arthropathy. There is disc and spur effacing the thecal sac. The central canal and neural foramina remain patent. L1-L2: There is moderate facet arthropathy and ligamentous hypertrophy. There is constriction of the lateral recesses. There is mild broad-based disc bulge. There is mild bilateral neural foraminal narrowing. L2-L3: There is moderate facet arthropathy and ligamentous hypertrophy. There is mild disc and spurextend into the neural foramina. There is mild left neural foraminal narrowing. L3-L4: There is moderate facet arthropathy and ligamentous hypertrophy. There is constriction of the lateral recesses. There is moderate to severe right neural foraminal narrowing and minimal left neural foraminal narrowing. L4-L5: There is marked facet arthropathy and moderate ligamentous atrophy. There is constriction ofthe lateral recesses. There is moderate bilateral neural foraminal narrowing, greater on the right. L5-S1: There is mild facet arthropathy and ligamentous hypertrophy. There is broad-based disc bulgeextending into the neural foramina. There is mild to moderate bilateral neural foraminal narrowing,greater on the left. IMPRESSION: 1. 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 This has not significantly changed. 2. Degenerative changes resulting in varying degrees of neural foraminal narrowing as detailed above. Radiation Dose Estimate: CTDI(mGy):0.137482 / / / kVp:120.687452 / mAs:0.240339 / / / DLP(mGy- cm):3.148122Nojw Part: CTDI(mGy):21.593110 / / / kVp:120.741802 / mAs:230.537356 / / / DLP(mGy- cm):616.468683Xatq Part: Final Dictated by: Alexey Morgan MD Dictated DT/TM: 07.30.2024 12:27 pm Signed by: Alexey Morgan MD Signed (Electronic Signature): 07.30.2024 12:38 pm (If Report Is Signed, Electronically Signed in Other Vendor System)Normal [facility] 90-68-4839AAX Coag (PPP) [Relative time]0.9 {INR}Normal<=3.5BSelect Medical Specialty Hospital - CincinnatiComment on above:Result Comment: INR has no normal range. INR Therapeutic range is: 2.0-3.0 (AF, CVA, TIAs, DVT prophylaxis, acute DVT) 2.5-3.5 ([facility] heart valves, recurrent thrombosis/emboli)Performed By: #### PTINR #### [address] [address]AG Coag (PPP) [Time]10.4 cBqvwhb11.2-12.9BSelect Medical Specialty Hospital - CincinnatiComment on above:Performed By: #### PTINR #### [address] [address]FZGlt 12-60-8365rWMJ Coag (Bld) [Time]30.8 tOfeupe61.1-36.5 [facility] Anderson HospitalComment on above:Performed By: #### PTT #### [address] [address]Izzklfws Counton 27-19-2401Klpikbmr560 x10*3/xkTKitvkc690-737 [facility] Anderson HospitalComment on above:Performed By: #### PTINR #### [address] [address]XW Myelography Lumbosacral Spineon 71-97-1626MC Myelography Lumbosacral SpineCLINICAL HISTORY: Radiculopathy. EXAMINATION: A fluoroscopically guided lumbar [...] was completed. The skin was anesthetized with 2%lidocaine. Under fluoroscopic guidance, a 22-gauge spinal needle was inserted into the thecal sac. A small amount of contrast was injected and flowed freely around the nerve roots. Approximately 13 cc of Omnipaque 180 was injected into the thecal sac. There was no myelographic block. The needle wasremoved and hemostasis was achieved. The patient was placed in the left lateral decubitus position and a lateral image of the lumbar spine was obtained. The patient was sent immediately to CT. Pleasesee CT report for further diagnostic details. IMPRESSION: Successful and uneventful fluoroscopically guided lumbar myelogram. Final Dictated by: Alexey Morgan MD Dictated DT/TM: 07/30/2024 12:27 pm Signed by: Alexey Morgan MD Signed (Electronic Signature): 07/30/2024 12:27 pm (If Report Is Signed, Electronically Signed in Other Vendor System)Normal [facility] HospitalNeurosurgery Office/Clinic Noteon 06-06-2024 Neurosurgery Office/Clinic NoteChief Complaint back follow up History of Present Illness The patient is a pleasant 64-year-old right-handed female with history of chronic nicotine use, asthma and recently diagnosed COPD for which she is planned to see a data warehouse consultant in the near future. 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 There is multileveldegenerative disc disease and vacuum disc phenomenon throughout the mid to lower thoracic spine as well as varying degrees of neuroforaminal stenosis including right T9-10 as well as left T6-7, 7-8 and 8-9. In regards to the lumbar spine, there is moderate facet arthropathy though relatively intactdisc heights and not significant central canal stenosis. [...] therapy without benefit. She is established with [facility] pain management undergoing left L4-5 CARLOS and left sacroiliac joint injection with results of injections detailed below. Overall, she denies any significant change in symptom profile since the time of her last visit. Shedescribes pain throughout the lumbar area, particularly left sided with radiation into the gluteal area, posterior thigh to the knee, and lateral hip. By the end of the day, she notes that the pain also radiates around the lower abdomen. She describes burning sensation within the left posterior thigh particularly when laying in bed at night. 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 When her hip locks up, she feels that she is unable to get up from where she is laying and finds difficulty walking until the hip pops or releases allowing her to return to normal walking. She describes intermittent cramping in the anteromedial thighs bilaterally, left more so than right.She denies any lower extremity weakness or numbness She denies any catching of her toes or slappingof her feet with walking. She notes urinary frequency and incomplete bladder emptying though deniesurinary incontinence. She denies bowel incontinence or saddle paresthesia. Conservative measures: Oral anti-inflammatory medication including ibuprofen and Tylenol with limited benefit. Oral muscle relaxants including tizanidine which helps pain to be more tolerable though does not resolve. Oral narcotics including [place] which makes pain tolerable though does not resolve. Topical agents including lidocaine patches and Bengay with limited benefit. Pain management injection modalities years ago with temporary benefit lasting only a few days. Physical therapy years ago without significant benefit. Chiropractic manipulation x 1 visit without benefit therefore patient never returned. Activity modification [1] Pain management injection modalities through [facility]. Initial injection targeted left L4-5 which she states locked her left hip and provided no benefit pain. Second injection targeted theleft sacroiliac joint which she states benefited her left lower extremity pain for approximately 1 hour before returning. She is planned to undergo trial injections for nerve ablation though is unsure if this is targeting the sacroiliac joint or lumbosacral facets. She also states that she has beenoffered possible spinal cord stimulator though she does not wish to entertain this idea. Recent imaging (provider interpretation): CT myelogram thoracolumbar spine 02/23/2024 reveals multilevel degenerative disc disease throughoutthe thoracic spine with vacuum disc phenomenon at multiple levels including T5-6, T9-10, T10-11, T11-12. There is anterior bridging osteophytosis at multiple levels particularly T7-8, T8-9 and T9-10.Varying degrees of neuroforaminal stenosis throughout the thoracic spine particularly right T9-10, left T6-7, T7-8 and T8-9. 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 No si (more content not included)...NormalMercy Health Anderson HospitalProvider Letteron 06-06-2024 Provider Letter Cornelius Garrison MD [facility] [facility], [place] [address] Re: Cristine Manley Date of Visit: 06/06/2024 Dear Cornelius Garrison MD, This patient was recently seen in the neurosurgical office. Please see attached note for further details. Let me know if you have any questions or concerns. Sincerely, DEMARCUS Gan Providers: The following document(s) were included in the letter: June 06, 2024 09:36:40 EST - (06/06/2024) Neurosurgery Office Visit Note [facility] 04-22-2024 Specimen: [id number] Received: 04/24/24 Status: OMAR Lopestyree Num: [id number] Spec Type: Cytology Subm Dr: Cornelius Garrison MD Tissues: A FNA SLIDES NOPATH (INF RT THY) Procedures: Cyto Int and Re, PAPSTN/5 Age/ Patient Sex Location Account Attending Physician Manley,Cristine K 64/F LABELL [id number] Cornelius Garrison MD SPEC NUM: [id number] RECD: 04/24/24 STATUS: OMAR REQ NUM: [id number] TORI: 04/22/24- DR: Cornelius Garrison MD ENTERED: 04/24/[address] [facility] [address]: Les Lee MD SPEC TYPE: Cytology DEPT: [facility] ENTERED BY: [id number] RECV BY: [id number] ORDERED: Cyto Int and Re, PAPSTN/5 ORDERED: Cyto Int and Re, PAPSTN/5 Supplemental Report Addendum 1 Entered: 05/10/24 Supplemental for findings of [facility] GENOMIC SEQUENCING MINE PATROL: -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 V600E c. 1799T>A: Negative -RET/PTC1: Not detected -RET/PTC3: Not detected -MTC: Negative -Parathyroid: Negative TERT PROMOTER REGION: -Tests (2) not Performed (TNP) Specimen: [id number] Received: 04/24/24 Status: OMAR Freddy Num: [id number] Spec Type: Cytology Subm Dr: Cornelius Garrison MD Tissues: A FNA SLIDES NOPATH (INF RT THY) Procedures: Cyto Int and Re, PAPSTN/5 Patient: Cristine Manley [id number] (Continued) Specimen: [id number] Received: 04/24/24 (Continued) Supplemental Report (Continued) Signed (signature on file) Gail Sheth MD 04/24/24 1439 Specimen: [id number] Received: 04/24/24 Status: OMAR Aceves Num: [id number] Spec Type: Cytology Subm Dr: Cornelius Garrison MD Tissues: A FNA SLIDES NOPATH (INF RT THY) Procedures: Cyto Int and Re, PAPSTN/5 Patient: Cristine Manley [id number] (Continued) Specimen: [id number] Received: 04/24/24 (Continued) Supplemental Report (Continued) Addendum Signed (signature on file) Pedro-Diogenes Sheth MD 05/10/24 1132 Pathological Diagnosis Right thyroid nodule, inferior, FNA cytology -Adequate follicular groups in the ThinPrep smear, appropriate for assessment, consisting of small to occasionally slightly larger and reactive follicular cells, suggesting dimorphic population and the category 3 [employer] system, atypia of the undetermined significance, otherwise [...] vial stored at -20 for microscopic examination. ([place]/nh) Microscopic Description Microscopic examinations are performed supporting the above interpretation CPT Codes 86153 Specimen: [id number] Received: 04/24/24 Status: OMAR Aceves Num: [id number] Spec Type: Cytology Subm Dr: Cornelius Garrison MD Tissues: A FNA SLIDES NOPATH (INF RT THY) Procedures: Cyto Int and Re, PAPSTN/5 Patient: Cristine Manley [id number] (Continued) Signed (signature on file) Pedro-Diogenes Sheth MD 04/24/[address] [place] [address] Physician GroupEMG 2 Extremitieson 34-59-9022ZZU/NCS BLE Right L5/S1 radic Francisco S1/2 radicNOMS HealthcareNOSD HealthcareNVC 9-10 Nerveson 92-34-7492FZW/NCS BLE Right L5/S1 radic Francisco S1/2 radicNOMS HealthcareNOSD HealthcareProvider Letteron 26-89-0347Tgsxdoxn Letter Cornelius Garrison MD [address] [facility], [place] [address] Re: Cristine Manley Date of Visit: 03/25/2024 Dear Cornelius Garrison MD, This patient was recently seen in the neurosurgical office. Please see attached note for further details. Let me know if you have any questions or concerns. Sincerely, DEMARCUS Gan Providers: The following document(s) were included in the letter: March 25, 2024 17:40:13 EST - (03/25/2024) [facility]on 03-25-[facility]24 Neurosurgery Office/Clinic NoteChief Complaint CT thoracic, lumbar, XR lumbar, hips and neck review History of Present Illness The patient is a pleasant 64-year-old right-handed female with history of chronic nicotine use, asthma and recently diagnosed COPD for which she is planned to see a data warehouse consultant in the near future. She also has [...] neurosurgical office having undergone additional imaging including thoracolumbarCT myelogram, lumbar flexion/extension x-rays, left hip x-rays [...] emptying though denies urinary incontinence. She denies bowelincontinence or saddle paresthesia. The patient reports cervicalgia [...] though does not resolve. Oral narcotics including [place] which makes pain tolerable though does not [...] spine 02/23/2024 reveals multilevel degenerative disc disease throughoutthe thoracic spine with vacuum disc phenomenon at multiple levels including T5-6, T9-10, T10-11, T11-12. There is anterior bridging osteophytosis at multiple levels particularly T7-8, T8-9 and T9-10.Varying degrees of neuroforaminal stenosis throughout the thoracic spine particularly right T9-10, left T6-7, T7-8 and T8-9. 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 Listhesis increases slightl (more content not included)...NormalMercy Health Anderson HospitalBasophils Auto (Bld) [#/Vol]on 95-37-4426Ptaboimdc (Bld) [#/Vol]Automated basophil count0.0-0.1FCorey HospitalBasophils/100 WBC Auto (Bld)on 61-15-3819Qilusfzxq/100 WBC (Bld)Automated basophil %0.2-2.0[facility] HospitalEosinophils/100 WBC Auto (Bld)on 03-21-2024 Eosinophils/100 WBC (Bld)Automated eosinophil %0.9-7.0[facility] HospitalErythrocyte distribution width Auto (RBC) [Ratio]on 20-84-0538Tlkfodawfxc distribution width (RBC) [Ratio]Erythrocyte distribution width [Ratio] by Automated count11.0-15.0[facility] HospitalHematocrit Auto (Bld) [Volume fraction]on 02-82-2713Iflgzrxoos (Bld) [Volume fraction]Hematocrit [Volume Fraction] of Blood by Automated count36.0-48.0[facility] HospitalHemoglobin [Mass/volume] in Bloodon 79-10-4630Codmclsjok (Bld) [Mass/Vol] Hemoglobin [Mass/volume] in Blood12.0-16.0[facility] HospitalIgE [Units/volume] in Serum or Plasmaon 98-10-6898QnZ QnIgE [Units/volume] in Serum or Plasma6-495T[facility]edo HospitalComment on above:Performed at: [facility] Lab[address] [id number] Director: Levi Pedroza MD, Phone: [phone] - Hematology and Cell countson 74-58-7107Lehvkkmn granulocytes/100 WBC (Bld)0.1 %0.0-0.5FCorey HospitalLeukocytes [#/volume] corrected for nucleated erythrocytes in Blood by Automated counon 85-01-0954APB corrected for nucl RBC Auto (Bld) [#/Vol]Leukocytes [#/volume] corrected for nucleated erythrocytes in Blood by Automated coun4.0-11.0[facility] HospitalLymphocytes Auto (Bld) [#/Vol]on 15-44-4042Wrfuaiwvqjz (Bld) [#/Vol]Lymphocytes [#/volume] in Blood by Automated count1.2-3.8[facility] HospitalLymphocytes/100 WBC Auto (Bld)on 24-43-2380Fpxjijqpjdh/100 WBC (Bld)Lymphocytes/100 leukocytes in Blood by Automated fphuuVfg23.5-60.0[facility] HospitalH Auto (RBC) [Entitic mass]on 20-55-6033POY (RBC) [Entitic mass]MCH [Entitic mass] by Automated count26.7-34.0[facility] HospitalMCHC Auto (RBC) [Mass/Vol]on 26-10-6192DLDU (RBC) [Mass/Vol]MCHC [Mass/volume] by Automated count29.9-35.2FCorey HospitalMCV Auto (RBC) [Entitic vol]on 12-03-2733BGZ (RBC) [Entitic vol]MCV [Entitic volume] by Automated count 81.0-99.0[facility] HospitalMonocytes Auto (Bld) [#/Vol]on 22-42-2954Bqywqebnn (Bld) [#/Vol]Automated blood monocyte count0.3-0.8[facility] HospitalMonocytes/100 WBC Auto (Bld)on 36-73-9353Sgmfuxcmn/100 WBC (Bld)Automated monocyte %1.7-12.0[facility] Neutrophils Auto (Bld) [#/Vol]on 57-61-4630Wvgznwspktx (Bld) [#/Vol]Neutrophils [#/volume] in Blood by Automated countHigh1.4-6.5FCorey HospitalNeutrophils/100 WBC Auto (Bld)on 53-38-5809Fsfenxrrwog/100 WBC (Bld) Automated neutrophil %43.0-75.0T[facility]edo HospitalNo Panel Informationon 00-94-3403Oheuoyvlmck # (Auto)0.1 10 3/uL0.0-0.7FCorey HospitalImmature Granulocyte # (Auto)0.01 10 3/uL0.00-0.03[facility] HospitalPlatelet mean volume Auto (Bld) [Entitic vol]on 07-92-7757Iemohcjv mean volume (Bld) [Entitic vol]Platelet mean volume [Entitic volume] in Blood by Automated count9.5-13.5FCorey Hospital Platelets Auto (Bld) [#/Vol]on 34-04-8249Qhzzoeccj (Bld) [#/Vol]Platelets [#/volume] in Blood by Automated oigxk640-825OyykgbjhrToledo Hospital RBC Auto (Bld) [#/Vol]on 03-91-1227DDV (Bld) [#/Vol]Erythrocytes [#/volume] in Blood by Automated count4.20-5.40[facility] HospitalProvider Letteron 52-88-8667Muhssvpe Letter Cornelius Whittaker [address] [facility], [place] [address] Re: Cristine Manley Date of Visit: 02/23/2024 Dear Cornelius Garrison MD, Please see attached results on this mutual patient you have with [facility] Result Name Current Result CT Spine Thoracic/Lumbar Myelogram w/Con 02/23/2024 Let me know if you have any questions or concerns. Sincerely, Jaclyn Bliss [facility] HospitalN [facility] [employer] C C Providers:NormalBlanchard Valley Health SystemCT Spine Thoracic/Lumbar Myelogram w/Conon 77-82-1510VK Spine Thoracic/Lumbar Myelogram w/ConEXAMINATION: CT Spine Thoracic/Lumbar Myelogram w/Con HISTORY: Thoracic [...] using automated exposure control and/or adjustment of mAand/or kV according to patient size and/or use [...] laminectomy with additional resection of the inferior facetof T12 and superior facet of L1 on [...] pseudomeningocele, with opacified fluid collection in the posteriorparaspinal tissues contiguous with the thecal sac at [...] Is Signed, Electronically Signed in Other Vendor System)Normal [facility] HospitalPTon 70-35-1060XTI Coag (PPP) [Relative time]1.0 {INR}Normal<=3.5BSelect Medical Specialty Hospital - CincinnatiComment on above:Result Comment: INR has no normal range. INR Therapeutic range is: 2.0-3.0 (AF, CVA, TIAs, DVT prophylaxis, acute DVT) 2.5-3.5 ([facility] heart valves, recurrent thrombosis/emboli)Performed By: #### PTINR #### [facility] [address] [place], [place] [address]QO Coag (PPP) [Time]10.3 sNormal9.2-12.0Mer[facility] Health Anderson HospitalComment on above:Performed By: #### PTINR #### [address] [address]GERdt 11-86-9716oVNN Coag (Bld) [Time]24.8 nIyjfme94.5-28.2 [facility] HospitalComment on above:Performed By: #### PTT #### [address] [address]Hebtxswd Counton 80-16-2240Bifhehwo205 x10*3/cnRXgrapp024-136 [facility] HospitalComment on above:Performed By: #### PLTS #### [address] [address]BF Hip 2-3 Views Lefton 64-41-7029UM Hip 2-3 Views LeftEXAM: XR Hip 2-3 Views Left, XR Spine [...] Is Signed, Electronically Signed in Other Vendor System)Normal [facility] HospitalXR Myelography Spine 2 or More Areason 02-23-2024 XR Myelography Spine 2 or More AreasCLINICAL HISTORY: Radiculopathy. EXAMINATION: A fluoroscopically guided thoracolumbar [...] was completed. The skin was anesthetized with 2%lidocaine. Under fluoroscopic guidance, a 22-gauge spinal needle was inserted into the thecal sac. A small amount of contrast was injected and flowed freely around the nerve roots. Approximately 13 cc of Omnipaque 180 was injected into the thecal sac. There was no myelographic block. The needle wasremoved and hemostasis was achieved. The patient was [...] Is Signed, Electronically Signed in Other Vendor System)Normal [facility] Anderson HospitalXR Spine Cervical 4 or 5 Viewson 50-14-8619XU Spine Cervical 4 or 5 ViewsEXAM: XR Hip 2-3 Views Left, XR Spine [...] Is Signed, Electronically Signed in Other Vendor System)[facility] CenterXR Spine Lumbosacral Bending 2-3 Viewson 17-01-9784MJ Spine Lumbosacral Bending 2-3 ViewsEXAM: XR Hip 2-3 Views Left, XR Spine [...] Is Signed, Electronically Signed in Other Vendor System)[facility] CenterNeurosurgery Office/Clinic Noteon 02-13-2024 Neurosurgery Office/Clinic NoteChief Complaint Back lumbar pain radiculopathy consult History of Present Illness The patient is a pleasant 64-year-old right-handed female with history of chronic nicotine use, asthma and recently diagnosed COPD for which she is planned to see a data warehouse consultant in the near future. She also has [...] walking. She notes urinary frequency and incomplete bladderemptying though denies urinary incontinence. She denies bowel [...] though does not resolve. Oral narcotics including [place] which makes pain tolerable though does not [...] Newly diagnosed COPD, scheduled to see a data warehouse consultant in the near future Chronic nicotine use [...] marijuana use. 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 She denies any Worker's Comp. related claims regarding today's visit FAMILY HISTORY: Lung cancer: Father Diabetes mellitus: Mother Hypertension: Mother Review of Systems Constitutional: [No fevers, chills, sweats] Eye: [No recent visual problems] ENMT: [ (more content not included)...[facility] Provider Letteron 11-69-6930Ibwcsbvr Letter Cornelius Garrison MD [address] [place] [address] Re: Cristine Manley Date of Visit: 02/13/2024 Dear Cornelius Garrison MD, This patient was recently seen in the neurosurgical office. Please see attached note for further details. Let me know if you have any questions or concerns. Sincerely, DEMARCUS Gan Providers: The following document(s) were included in the letter: February 13, 2024 09:39:53 EST - (02/13/2024) Neurosurgery Office Visit Note [facility] HospitalXR knee BI 3V - NOT FOR ER USEon 01-24-2024 XR knee BI 3V - [facility] [address] [place] [address] XRay Report Signed Patient: Cristine Manley MR#: [id number] 53 : 1960 Acct:[id number] Age/Sex: 64 / F ADM Date: 01/24/24 Loc: [facility]XD Room: Type: [facility] Attending Dr: Alexandro Galvez DO [...] Sunday Graham M.D.01/24/2024 3:45 PM Dictation Location: [place] [address] Transcribed By: [place] 01/24/24 1545 Dictated By: Sunday Graham II, MD 01/24/24 154 Signed By: 01/24/24 154[facility] Physician GroupBasophils Auto (Bld) [#/Vol]on 08-07-0639Dpekuzhbh (Bld) [#/Vol]0.0 10 3/uL0.0-0.1FCorey HospitalBasophils (Bld) [#/Vol]Automated basophil count0.0-0.1FCorey HospitalBasophils/100 WBC Auto (Bld)on 05-49-2981Jmymngojf/100 WBC (Bld) 0.2 %0.2-2.0[facility] HospitalBasophils/100 WBC (Bld)Automated basophil %0.2-2.0[facility] HospitalEosinophils/100 WBC Auto (Bld) on 18-59-2873Tbqzfhempmt/100 WBC (Bld)4.3 %0.9-7.0[facility] HospitalEosinophils/100 WBC (Bld)Automated eosinophil %0.9-7.0[facility] HospitalErythrocyte distribution width Auto (RBC) [Ratio]on 01-19-2024 Erythrocyte distribution width (RBC) [Ratio]13.1 %11.0-15.0[facility] HospitalErythrocyte distribution width (RBC) [Ratio]Erythrocyte distribution width [Ratio] by Automated count11.0-15.0[facility] HospitalEstimated glomerular filtration rate (GFR) non- Americanon 32-10-4674KEI/1.73 sq M.predicted among non-blacks MDRD (S/P/Bld) [Vol rate/Area]mL/min/{1.73_m2}>=60 mL/min/1.73m 2FCorey Hospital GFR/1.73 sq M.predicted among non-blacks MDRD (S/P/Bld) [Vol rate/Area]Estimated glomerular filtration rate (GFR) non->=60 mL/min/1.73m 2 [facility] HospitalFibrin D-dimer [Presence] in Platelet poor plasma by Latex agglutinationon 50-22-0856Ofwsnd D-dimer LA Ql (PPP)0.43 mg/L FEU<=0.59T[facility] HospitalComment on above:Increases in D-Dimer concentration observed withthromboembolic events can be variable due to localiz ation,size, and age of the thrombus. Therefore, a thromboembolicevent cannot be diagnosed with certainty on the basis of thereference range. D-Dimers may also be elevated for a varietyof disorders including advanced age, , coronarydisease, cancer, liver disease, infection, inflammation,hematoma, DIC, trauma, post-surgery, diabetes, thrombolyticor anticoagulant therapy, stress, and generalizedhospitalization.Fibrin D-dimer LA Ql (PPP)Fibrin D-dimer [Presence] in Platelet poor plasma by Latex agglutination<=0.59T[facility] HospitalComment on above:Increases in D-Dimer concentration observed withthromboembolic events can be variable due to localization,size, and age of the thrombus. Therefore, a thromboembolicevent cannot be diagnosed with certainty on the basis of thereference range. D-Dimers may also be elevated for a varietyof disorders including advanced age, , coronarydisease, cancer, liver disease, infection, inflammation,hematoma, DIC, trauma, post- surgery, diabetes, thrombolyticor anticoagulant therapy, stress, and general izedhospitalization.Hematocrit Auto (Bld) [Volume fraction]on 01-19-2024 Hematocrit (Bld) [Volume fraction]39.5 %36.0-48.0[facility] HospitalHematocrit (Bld) [Volume fraction]Hematocrit [Volume Fraction] of Blood by Automated count36.0-48.0[facility] HospitalHemoglobin [Mass/volume] in Bloodon 58-31-9586Qpffmruvqh (Bld) [Mass/Vol]12.8 g/dL12.0-16.0 [facility] HospitalHemoglobin (Bld) [Mass/Vol]Hemoglobin [Mass/volume] in Blood12.0-16.0[facility] HospitalLaboratory - Chemistry and Chemistry - challengeon 12-90-0056Jsvyvsc [Mass/Vol]9.0 mg/dL 8.5-10.1FCorey HospitalChloride [Moles/Vol]105 mmol/L98-107 [facility] HospitalCO2 [Moles/Vol]28.7 mmol/L21.0-32.0[facility] HospitalCreatinine [Mass/Vol]0.92 mg/dL0.55-1.02[facility] HospitalGFR/1.73 sq M.predicted MDRD (S/P/Bld) [Vol rate/Area] mL/min/{1.73_m2}>=60 mL/min/1.73m 2FCorey HospitalGlucose [Mass/Vol]78 mg/bN51-953IhnprkqtkToledo HospitalPotassium [Moles/Vol] 4.0 mmol/L3.5-5.1FOhioHealth Van Wert Hospitalodium [Moles/Vol]138 mmol/L 136-145T[facility] HospitalUrea nitrogen [Mass/Vol]27.0 mg/dLHigh 7.0-18.0[facility] HospitalUrea nitrogen/Creatinine [Mass ratio] 29.3 mg/mgToledo HospitalLaboratory - Hematology and Cell countson 37-76-1465Zhivcjyv granulocytes/100 WBC (Bld)0.3 %0.0-0.5FOhioHealth Doctors Hospitaloratory - Microbiology and Antimicrobial susceptibilityon 33-76-6277DTOE-CoV-2 (COVID-19) RNA JOSELUIS+probe Ql (Unsp spec) NegativeNEGATIVEToledo HospitalComment on above:This test has not been FDA cleared or approved, but has beenauthorized by the FDA under an Emergency Use Authorization(EUA) for use by authorized laboratories certified underIA that meet the requirements to perform moderate or highcomplexity testing. This test has been authorized only forthe detection of proteins from SARS-CoV-2, not for any otherviruses or pathogens. The emergency use of this t est isauthorized for the duration of the declaration thatcircumstances exist justifying the authorization ofemergency use of in vitro diagnostic tests for detectionand/or diagnosis of Covid-19 under section 564(b)(1) of theAct, 21 U.S.C. 360bbb-3(b)(1), unless the declaration isterminated or authorization is revoked sooner.Leukocytes [#/volume] corrected for nucleated erythrocytes in Blood by Automated counon 15-14-1342MQZ corrected for nucl RBC Auto (Bld) [#/Vol]12.6 10 3/uLHigh4.0-11.0[facility] HospitalWBC corrected for nucl RBC Auto (Bld) [#/Vol]Leukocytes [#/volume] corrected for nucleated erythrocytes in Blood by Automated counHigh4.0-11.0[facility] HospitalLymphocytes Auto (Bld) [#/Vol]on 33-42-0700Berhsdcwbrk (Bld) [#/Vol]4.4 10 3/uLHigh1.2-3.8[facility] HospitalLymphocytes (Bld) [#/Vol] Lymphocytes [#/volume] in Blood by Automated countHigh1.2-3.8[facility] HospitalLymphocytes/100 WBC Auto (Bld)on 33-37-8500Ljgjkcmbsvl/100 WBC (Bld)35.0 %20.5-60.0[facility] HospitalLymphocytes/100 WBC (Bld) Lymphocytes/100 leukocytes in Blood by Automated count20.5-60.0[facility] Auto (RBC) [Entitic mass]on 32-66-4378KJU (RBC) [Entitic mass]29.4 pg26.7-34.0[facility] (RBC) [Entitic mass]MCH [Entitic mass] by Automated count26.7-34.0[facility] HospitalHC Auto (RBC) [Mass/Vol]on 95-44-5090YGKO (RBC) [Mass/Vol]32.4 g/dL29.9-35.2FClinton Memorial HospitalHC (RBC) [Mass/Vol]MCHC [Mass/volume] by Automated count29.9-35.2FClinton Memorial HospitalV Auto (RBC) [Entitic vol]on 83-95-1405FNA (RBC) [Entitic vol]90.6 fL81.0-99.0 [facility] HospitalV (RBC) [Entitic vol]MCV [Entitic volume] by Automated count81.0-99.0[facility] HospitalMonocytes Auto (Bld) [#/Vol]on 83-72-6265Mvwwccocq (Bld) [#/Vol]1.2 10 3/uLHigh0.3-0.8[facility] HospitalMonocytes (Bld) [#/Vol]Automated blood monocyte countHigh 0.3-0.8[facility] HospitalMonocytes/100 WBC Auto (Bld)on 97-70-3984Bditgtxau/100 WBC (Bld)9.5 %1.7-12.0[facility] Monocytes/100 WBC (Bld)Automated monocyte %1.7-12.0[facility] HospitalNeutrophils Auto (Bld) [#/Vol]on 80-45-3846Frdrigmpwqv (Bld) [#/Vol]6.4 10 3/uL1.4-6.5FCorey HospitalNeutrophils (Bld) [#/Vol] Neutrophils [#/volume] in Blood by Automated count1.4-6.5FCorey HospitalNeutrophils/100 WBC Auto (Bld)on 23-82-8860Jmtsuwrkmyp/100 WBC (Bld)50.7 %43.0-75.0[facility] HospitalNeutrophils/100 WBC (Bld) Automated neutrophil %43.0-75.0[facility] HospitalNo Panel Informationon 07-08-5042Rhshjzf Influenza Type A AntigenNegativeToledo HospitalComment on above:Negative for Flu A protein antigen. Infection due to Flu Acannot be ruled out. Flu A antigen in thesample may bebelow the detection limit of the test.Bedside Influenza Type B AntigenNegative [facility] HospitalComment on above:Negative for Flu B protein antigen. Infection due to Flu Bcannot be ruled out. Flu B antigen in thesample may bebelow the detection limit of the test.Eosinophils # (Auto)0.5 10 3/uL 0.0-0.7FCorey HospitalImmature Granulocyte # (Auto)0.04 10 3/uLHigh0.00-0.03[facility] HospitalTroponin I High Sensitivity5.8 pg/mL4.0-51.3FCorey HospitalComment on above:CUT-OFF POINTS HAVE BEEN ESTABLISHED BASED ON THE FOURTHUNIVERSAL DEFINITION OF MYOCARDIAL INFARCTION. THE UPPERREFERENCE LIMIT (URL) OF TROPONIN, DEFINED THE 99THPERCENTILE OF cTnI DISTRIBUTION IN A REFERENCE POPULATION,HAS BEEN CONFIRMED THE DECISION THRESHOLD FOR MIDIAGNOSIS.99TH PERCENTILE = 51.4 PG/MLNOTE: HIGH-SENSITIVITY TROPONIN ASSAY IS NOT INTENDED TO BEUSED IN ISOLATION BUT SHOULD BE INTERPRETED IN CONJUNCTIONWITH OTHER DIAGNOSTIC AND CLINICAL INFORMATION.Platelet mean volume Auto (Bld) [Entitic vol]on 22-34-8371Mddwwoxi mean volume (Bld) [Entitic vol]9.3 fLLow9.5-13.5FCorey HospitalPlatelet mean volume (Bld) [Entitic vol]Platelet mean volume [Entitic volume] in Blood by Automated countLow9.5-13.5[facility] Platelets Auto (Bld) [#/Vol]on 98-13-8041Omfmkvqsv (Bld) [#/Vol]304 10 3/uL 150-450T[facility] HospitalPlatelets (Bld) [#/Vol]Platelets [#/volume] in Blood by Automated -763SxgfupkfkToledo Hospital RBC Auto (Bld) [#/Vol]on 91-98-4221TOI (Bld) [#/Vol]4.36 10 6/uL4.20-5.40 [facility] HospitalRBC (Bld) [#/Vol]Erythrocytes [#/volume] in Blood by Automated count4.20-5.40[facility] Medical Centererum or plasma anion gap determinationon 53-73-5195Pxwkn gap [Moles/Vol]8.3 mmol/L [facility] HospitalAnion gap [Moles/Vol]Serum or plasma anion gap determinationToledo HospitalBorrelia burgdorferi IgG+IgM Ab [Presence] in Serum by Immunoassayon 4B. burgdorferi IgG+IgM IA Ql (S) NegativeNegativeToledo HospitalComment on above:Lyme antibodies not detected. Reflex testing is notindicated.No laboratory evidence of infection with B. burgdorferi(Lyme disease). Negative results may occur in patientsrecently infected (less than or equal to 14 days) with B.burgdorferi. If recent infection is suspected, repeattesting on a new sample collected in 7 to 14 days isrecommended.Performed at: [facility] [id number] Director: Jeovany Bazan PhD, Phone: [phone]-15 PCR ([facility]VDMIL[facility])on 02-56-7377PIYB-CoV-2 (COVID-19) RNA JOSELUIS+probe Ql (Unsp spec)Not detectedNormalNOT DETECTEDThe [facility] HealthComment on above:Result Comment: This test is not yet approved or cleared by the [place] FDA. When there are no FDA-approved or cleared tests available, and other criteria are met, FDA can make tests available under an emergency access mechanism called an Emergency Use Authorization (EUA). The EUA for this test is supported by the Instrumentation And Controls Technician of Health and Human Service's (HHS's) declaration [...] of clinical signs and symptoms consistent with SARS-CoV-2.Performed By: #### CVDTBH #### [facility] [address] [place] [address] Dr. Pablo Moore AUTO DIFFon 63-61-1730WBFJ #0.1 103/ulNormal0.0-0.1[facility] HospitalComment on above:Performed By: #### DATCBC #### [facility] [address] [place] [address] Dr. Pablo ShethBasophils/100 WBC (Bld)0.4 %Normal0.2-2.0[facility] Comment on above:Performed By: #### DATCBC #### [facility] [address] [place] [address] Dr. Pablo Sebastian #0.3 103/ulNormal0.0-0.7The [facility] HealthComment on above: Performed By: #### DATCBC #### [facility] [address] [place] [address] Dr. Pablo Bridgesosinophils/100 WBC (Bld)2.4 %Normal0.9-7.0[facility] Comment on above:Performed By: #### DATCBC #### [facility] [address] [place] [address] Dr. Pablo Bridgesrythrocyte distribution width (RBC) [Ratio]13.2 %Plzbek21.0-15.0 [facility] HospitalComment on above:Performed By: #### DATCBC #### [facility] [address] [place] [address] Dr. Yilan ChangHematocrit (Bld) [Volume fraction]42.6 %Esfhsl79.0-48.0The [facility] HealthComment on above:Performed By: #### DATCBC #### [facility] [address] [place] [address] Dr. Pablo ShethHemoglobin (Bld) [Mass/Vol]13.7 g/jNBpkkbz68.0-16.0The [facility] HealthComment on above:Performed By: #### DATCBC #### [facility] [address] [place] [address] Dr. Pablo ShethIG #0.05 10e3/ulCritically high0.00-0.03The [facility] Comment on above:Performed By: #### DATCBC #### [facility] [address] [place] [address] Dr. Pablo Mckeon %0.4 %Normal0.0-0.5The [facility] HealthComment on above: Performed By: #### DATCBC #### [facility] [address] [place] [address] Dr. Pablo SparksH #2.8 103/ulNormal1.2-3.8The [facility] HealthComment on above:Performed By: #### DATCBC #### [facility] [address] [place] [address] Dr. Pablo Carlislemphocytes/100 WBC (Bld)20.9 %Jpnvtj76.5-60.0The [facility] HealthComment on above:Performed By: #### DATCBC #### [facility] [address] [place] [address] Dr. Pablo Ott (RBC) [Entitic mass]29.2 bfIkoxcs62.7-34.0The [facility] HealthComment on above:Performed By: #### DATCBC #### [facility] [address] [place] [address] Dr. Pablo Ott (RBC) [Mass/Vol]32.2 g/dHSqsnai53.9-35.2The [facility] HealthComment on above:Performed By: #### DATCBC #### [facility] [address] [place] [address] Dr. Pablo OttV (RBC) [Entitic vol]90.8 bOKlejqx97.0-99.0The [facility] HealthComment on above:Performed By: #### DATCBC #### [facility] [address] [place] [address] Dr. Pablo Mcgovern #1.0 103/ulCritically high0.3-0.8The [facility] Comment on above:Performed By: #### DATCBC #### [facility] [address] [place] [address] Dr. Pablo Rodocytes/100 WBC (Bld)7.5 %Normal1.7-12.0[facility] Comment on above:Performed By: #### DATCBC #### [facility] [address] [place] [address] Dr. Pablo Cui #9.2 103/ulCritically high1.4-6.5The [facility] Comment on above:Performed By: #### DATCBC #### [facility] [address] [place] [address] Dr. Pablo Ambrocioutrophils/100 WBC (Bld)68.4 %Qyynrg59.0-75.0The [facility] HealthComment on above:Performed By: #### DATCBC #### [facility] [address] [place] [address] Dr. Pablo Strausslet mean volume (Bld) [Entitic vol]9.3 fLCritically low 9.5-13.5The [facility] HealthComment on above:Performed By: #### DATCBC #### [facility] [address] [place] [address] Dr. Pablo ShethPLT313 103/srIoxyfg522-604Jkr [facility] HealthComment on above: Performed By: #### DATCBC #### [facility] [address] [place] [address] Dr. Pablo ShethRBC4.69 106/ulNormal4.20-5.40The [facility] HealthComment on above:Performed By: #### BERKLEYCBC #### [facility] [address] [place] [address] Dr. Pablo CortezBC13.4 103/ulCritically high4.0-11.0The [facility] HealthComment on above:Performed By: #### BERKLEYCBC #### [facility] [address] [place] [address] Dr. Pablo Dumont - TSHon 09-61-3309QAL6.241 uIU/mLNormal0.358-3.740The [facility] HealthComment on above:Performed By: #### MERYL BLANCOP #### [facility] [address] [place] [address] Dr. Pablo Linares [facility] HospitalComment on above: Result Comment: <0.34 UIU/ml HYPERTHYROID 0.34-5.60 UIU/ml EUTHYROID >5.60 UIU/ml HYPOTHYROIDPerformed By: #### BERKLEY BLANCOBMP #### [facility] [address] [place] [address] Dr. Pablo Dumont- BMP WITH LIPIDon 16-60-1083Vjxlv gap [Moles/Vol]11.9 mmol/L NormalThe [facility] HealthComment on above:Performed By: #### BERKLEY BLANCOBMP #### [facility] [address] [place] [address] Dr. Pablo ShethCalcium [Mass/Vol]9.1 mg/dLNormal8.5-10.1The [facility] Comment on above:Performed By: #### BERKLEY BLANCOBMP #### [facility] [address] [place] [address] Dr. Pablo ShethChloride [Moles/Vol]104 mmol/WThydxy78-990VmrCleveland Clinic Euclid Hospital Comment on above:Performed By: #### BERKLEY BLANCOBMP #### [facility] [address] [place] [address] Dr. Yilan ChangCholesterol [Mass/Vol]207 mg/dLCritically high<=200The [facility] Hospitalment on above:Performed By: #### DATTSH, DATBMP #### [facility] [address] [address] [address] Pablo ShethCholesterol in HDL [Mass/Vol]52 mg/nFNfsias11-26Pvc [facility] on above:Performed By: #### DATTSH, DATBMP #### [facility] [address] [address] [address] Pablo ShethCholesterol in LDL [Mass/Vol]141.4 mg/dLNormalThe [facility] on above:Performed By: #### DATTSH, DATBMP #### [facility] [address] [address] [address] Pablo ShethCO2 [Moles/Vol]29.3 mmol/KHqtach47.0-32.0The [facility] Comment on above:Performed By: #### DATTSH, DATBMP #### [facility] [address] [address] [address] Pablo ShethCreatinine [Mass/Vol]0.77 mg/dLNormal0.55-1.02The [facility] on above:Performed By: #### DATTSH, DATBMP #### [facility] [address] [place] [address] Dr. Pablo BridgesGFR-AF MOZAMBICAN>60Normal>=60The [facility] on above:Performed By: #### DATTSH, DATBMP #### [facility] [address] [place] [address] Dr. Pablo BridgesGFR-NON AF MOZAMBICAN>60Normal>=60The [facility] Hospitalment on above:Performed By: #### DATTSH, DATBMP #### [facility] [address] [address] [address] Pablo ShethGlucose [Mass/Vol]109 mg/dLCritically kgzr63-907Nnl [facility] HospitalComment on above:Performed By: #### DATTSH, DATBMP #### [facility] [address] [address] [address] Pablo Ortega NORMAL> or = 60 mg/dl - LOW CARDIOVASCULAR RISK <40 mg/dl - HIGH CARDIOVASCULAR RISKOhioHealth Dublin Methodist HospitalComment on above:Performed By: #### DATTSH, DATBMP #### [facility] [address] [address] [address] Pablo ShethLDL CALC NORMALSEE BELOWOhioHealth Dublin Methodist HospitalComment on above:Result Comment: <100 mg/dl OPTIMAL 100 - 129 mg/dl NEAR OR ABOVE OPTIMAL 130 - 159 mg/dl BORDERLINE HIGH 160 - 189 mg/dl HIGH >190 mg/dl VERY HIGH Performed By: #### DATTSH, DATBMP #### [facility] [address] [address] [address] Pablo ShethPotassium [Moles/Vol]4.2 mmol/LNormal3.5-5.1The [facility] Comment on above:Performed By: #### DATTSH, DATBMP #### [facility] [address] [address] [address] Pablo ShethSodium [Moles/Vol]141 mmol/VXxvube842-285Kjv [facility] Comment on above:Performed By: #### DATTSH, DATBMP #### [facility] [address] [address] [address] Pablo ShethTriglyceride [Mass/Vol]68 mg/dLNormal<=150The [facility] Comment on above:Performed By: #### DATTSH, DATBMP #### [facility] [address] [address] [address] Pablo ShethUrea nitrogen [Mass/Vol]26.0 mg/dLCritically high7.0-18.0The [facility] HealthComment on above:Performed By: #### DATTSH, DATBMP #### [facility] [address] [address] [address] Pablo ShethUrea nitrogen/Creatinine [Mass ratio]33.8 mg/mgNoKettering HealthComment on above:Performed By: #### DATTSH, DATBMP #### [facility] [address] [address] [address] Pablo ShethVLDL CALC13.6 mg/dLNoKettering HealthComment on above: Performed By: #### DATTSH, DATBMP #### [facility] [address] [address] [address] Pablo Sheth Vital Signs Date TimeVital SignValuePerforming QtatwnlzbHhrtlada41-53-7885 14:29-0400Body uenxgf353.18 cmCornelius Garrison MD Work Phone: [phone])[address] [place], [place] 6608009-15-2025 14:29-0400 Body mass index (BMI) [Ratio]25.8 kg/p4TjnhhgCornelius Garrison MD Work Phone: [phone])[address] [place], [place] 6608009-15-2025 14:29-0400 Body tfiers95.84 kgCornelius Garrison MD Work Phone: [phone])[address] [place], [place] 6608009-15-2025 14:29-0400 Diastolic blood nizirsed60 mm[Hg]Cornelius Garrison MD Work Phone: [phone] [place], [place] 6608009-15-2025 14:29-0400 Heart rate97 /minCornelius Garrison MD Work Phone: [phone])[address] [place], [place] 6608009-15-2025 14:29-0400 Systolic blood glzqmziu707 mm[Hg]Cornelius Garrison MD Work Phone: [phone])[address] [place], [place] 6608008-29-2025 11:35-0400 Body .18 cmCornelius Garrison MD Work Phone: [phone])[address] [place], [place] 6608008-29-2025 11:35-0400 Body mass index (BMI) [Ratio]25.6 kg/u4KpyzgbCornelius Garrison MD Work Phone: [phone])[address]08-29-2025 11:35-0400 Body ujhpro53.16 kgCornelius Garrison MD Work Phone: [phone])[address]08-29-2025 11:35-0400 Diastolic blood mm[Hg]Cornelius Garrison MD Work Phone: [phone])[address]08-29-2025 11:35-0400 Heart rate63 /Steven Garrison MD Work Phone: [phone])[address] [place], [place] 6608008-29-2025 11:35-0400 Respiratory rate14 /Steven Garrison MD Work Phone: [phone])[address] [place], [place] 6608008-29-2025 11:35-0400 SaO2% (BldA) [Mass fraction]96 %Cornelius Garrison MD Work Phone: [phone])[address] [place], [place] 6608008-29-2025 11:35-0400 Systolic blood qgnohufk91 mm[Hg]Cornelius Garrison MD Work Phone: 1(495)[address] [place], [place] 6608008-08-2025 14:38-0400 Body .18 cmCornelius Garrison MD Work Phone: [phone])[address]08-08-2025 14:38-0400 Body mass index (BMI) [Ratio]26.6 kg/c7OsfrflCornelius Garrison MD Work Phone: 1(798)[address] [place], [place] 6608008-08-2025 14:38-0400 Body xaxouk62.11 kgCornelius Garrison MD Work Phone: [phone])[address]08-08-2025 14:38-0400 Diastolic blood vtxjhwuq49 mm[Hg]Cornelius Garrison MD Work Phone: [phone])[address]08-08-2025 14:38-0400 Heart rate82 /Steven Garrison MD Work Phone: [phone])[address]08-08-2025 14:38-0400 Systolic blood wzcezjgd258 mm[Hg]Cornelius Garrison MD Work Phone: [phone])[address]06-20-2025 14:55-0400 Diastolic blood ybwlweit88 mm[Hg]Cornelius Garrison MD Work Phone: [phone])04399 [address]06-20-2025 14:55-0400 Heart rate86 /Steven Garrison MD Work Phone: [phone])[address]06-20-2025 14:55-0400 Systolic blood rngqvker127 mm[Hg]Cornelius Garrison MD Work Phone: [phone])[address]06-20-2025 14:42-0400 Body qwujca825.18 cmCornelius Garrison MD Work Phone: [phone])[address]06-20-2025 14:42-0400 Body mass index (BMI) [Ratio]26.4 kg/m4EvcmiwCornelius Garrison MD Work Phone: [phone]06-20-2025 14:42-0400 Body glhpmbcjyoa82.5 [degF]Cornelius Garrison MD Work Phone: [phone])[address]199 [address]06-20-2025 14:42-0400 Body almqzo02.65 kgCornelius Garrison MD Work Phone: [phone])23699 [address]06-20-2025 14:42-0400 SaO2% (BldA) [Mass fraction]98 %Cornelius Garrison MD Work Phone: [phone])[address]199 [address]03-19-2025 08:30-0400 Body .18 cmCornelius Garrison MD Work Phone: [phone]03-19-2025 08:30-0400 Body mass index (BMI) [Ratio]27.6 kg/o4FsgjwwCornelius Garrison MD Work Phone: [phone])[address]03-19-2025 08:30-0400 Body oqrjig60.94 kgCornelius Garrison MD Work Phone: [phone])32499 [address]03-19-2025 08:30-0400 Diastolic blood njplpxpy038 mm[Hg]Cornelius Garrison MD Work Phone: [phone])[address]99 [address]03-19-2025 08:30-0400 Heart rate80 /Steven Garrison MD Work Phone: 1(419)483-[address] [place], [place] 4968003-19-2025 08:30-0400 Respiratory rate12 /Steven Garrison MD Work Phone: 1([phone])853-[address] [place], [place] 4968003-19-2025 08:30-0400 SaO2% (BldA) [Mass fraction]95 %Cornelius Garrison MD Work Phone: [phone]03-19-2025 08:30-0400 Systolic blood utsuuhru741 mm[Hg]Cornelius Garrison MD Work Phone: 1([phone])696-[address] [place], [place] 4968002-26-2025 14:11-0500 Body rybrdc101.2 cmBenjamin Murcek DO Work Phone: [phone] HospitalDtorkdyqmp39-10-5458 14:11-0500Body mass index (BMI) [Ratio]27.72 kg/y6Jhsjuymo Murcek DO Work Phone: 1([phone])5-[facility]'s HospitalHibeattlnr44-67-1985 14:11-0500Body ztlfro42.29 kgBenjamin Murcek DO Work Phone: [phone])228[facility] HospitalNshdajnuzi85-09-9412 15:14-0500Body .18 cmCornelius Garrison MD Work Phone: [phone])[address]01-06-2025 15:14-0500 Body mass index (BMI) [Ratio]27.7 kg/r7OiltnzCornelius Garrison MD Work Phone: 1([phone])875-[address] [place], [place] 4968001-06-2025 15:14-0500 Body iguobryaynp88.4 [degF]Cornelius Garrison MD Work Phone: [phone])[address]01-06-2025 15:14-0500 Body qqeagj32.28 kgCornelius Garrison MD Work Phone: 1(413)155-[address] [place], [place] 4968001-06-2025 15:14-0500 Diastolic blood mm[Hg]Cornelius Garrison MD Work Phone: [phone])22899 [address]01-06-2025 15:14-0500 Heart rate83 /Steven Garrison MD Work Phone: 1(808)[address] [place], [place] 6608001-06-2025 15:14-0500 Respiratory rate20 /Steven Garrison MD Work Phone: [phone])[address] [place], [place] 6608001-06-2025 15:14-0500 SaO2% (BldA) [Mass fraction]96 %Cornelius Garrison MD Work Phone: [phone] [place] 6608001-06-2025 15:14-0500 Systolic blood cprznpyf854 mm[Hg]Cornelius Garrison MD Work Phone: 1(172)[address] [place], [place] 6608012-20-2024 08:56-0500 Body uajpvh580.18 cmCornelius Garrison MD Work Phone: 1(922)[address] [place], [place] 6608012-20-2024 08:56-0500 Body mass index (BMI) [Ratio]27.2 kg/j6ObfislCornelius Garrison MD Work Phone: 1(625)[address] [place], [place] 6608012-20-2024 08:56-0500 Body aawsdw67.92 kgCornelius Garrison MD Work Phone: 1(312)[address] [place], [place] 6608012-20-2024 08:56-0500 Diastolic blood gevdmmfu81 mm[Hg]Cornelius Garrison MD Work Phone: 1(033)[address] [place], [place] 6608012-20-2024 08:56-0500 Heart rate91 /Steven Garrison MD Work Phone: 1(534)[address] [place], [place] 6608012-20-2024 08:56-0500 SaO2% (BldA) [Mass fraction]95 %Cornelius Garrison MD Work Phone: 1(641)[address] [place], [place] 6608012-20-2024 08:56-0500 Systolic blood ysafgmbf543 mm[Hg]Cornelius Garrison MD Work Phone: 1(455)[address] [place], [place] 6608012-02-2024 15:29-0500 Body fykemc353.18 cmCornelius Garrison MD Work Phone: 1(660)[address] [place], [place] 6608012-02-2024 15:29-0500 Body mass index (BMI) [Ratio]27.8 kg/h4AywibjCornelius Garrison MD Work Phone: [phone]12-02-2024 15:29-0500 Body btixktwmeaa13.6 [degF]Cornelius Garrison MD Work Phone: 1(485)[address] [place], [place] 6608012-02-2024 15:29-0500 Body ehwjyd43.73 kgCornelius Garrison MD Work Phone: 1(880)[address] [place], [place] 6608012-02-2024 15:29-0500 Diastolic blood blzzruli31 mm[Hg]Cornelius Garrison MD Work Phone: 1(765)[address] [place], [place] 6608012-02-2024 15:29-0500 Heart rate82 /Steven Garrison MD Work Phone: 1(933)[address] [place], [place] 6608012-02-2024 15:29-0500 Respiratory rate20 /Steven Garrison MD Work Phone: 1(526)[address] [place], [place] 6608012-02-2024 15:29-0500 SaO2% (BldA) [Mass fraction]98 %Cornelius Garrison MD Work Phone: 1(033)[address] [place], [place] 6608012-02-2024 15:29-0500 Systolic blood alnspzqk420 mm[Hg]Cornelius Garrison MD Work Phone: 1(828)[address] [place], [place] 6608010-31-2024 13:55-0400 Body dxocrw268.18 cmMD Cornelius Garrison Work Phone: 1(093)[address] [place], [place] 6608010-31-2024 13:55-0400 Body mass index (BMI) [Ratio]27.9 kg/m2MD Cornelius Garrison Work Phone: 1(952)[address]10-31-2024 13:55-0400 Body msgcdy93.9 kgMD Cornelius Garrison Work Phone: 1(790)[address] [place], [place] 6608010-31-2024 13:55-0400 Diastolic blood taxxgabn75 mm[Hg]MD Cornelius Garrison Work Phone: 1(958)[address]10-31-2024 13:55-0400 Heart rate74 /minMD Cornelius Garrison Work Phone: [facility]10-31-2024 13:55-0400 SaO2% (BldA) [Mass fraction]96 %MD Cornelius Garrison Work Phone: [facility]10-31-2024 13:55-0400 Systolic blood evbivpzd682 mm[Hg]MD Cornelius Garrison Work Phone: [facility]10-16-2024 14:35-0400 Body yznpoe546.18 cmMD Cornelius Garrison Work Phone: [phone]10-16-2024 14:35-0400 Body mass index (BMI) [Ratio]28.3 kg/m2MD Cornelius Garrison Work Phone: [facility]10-16-2024 14:35-0400 Body sazble57.21 kgMD Cornelius Garrison Work Phone: [facility]10-01-2024 15:17-0400 Body .64 cmT[facility]10-01-2024 15:17-0400Body mass index (BMI) [Ratio]28.2 kg/d5TrraqmzenToledo Hospital10-01-2024 15:17-0400Body jgegnq81.37 kgT[facility]10-01-2024 15:17-0400Diastolic blood qesdvqmr97 mm[Hg][facility] 01-09-2024 15:17-0400Heart rate76 /minT[facility] 01-09-2024 15:17-4443JnE3% (BldA) [Mass fraction]97 %[facility]10-01-2024 15:17-0400Systolic blood qvaxtxea503 mm[Hg][facility]07-24-2024 08:57-0400Body hupfel153.64 cmT[facility] Hospital07-24-2024 08:57-0400Body mass index (BMI) [Ratio]28.2 kg/m2 [facility]07-24-2024 08:57-0400Body .37 kg [facility]07-24-2024 08:57-0400Diastolic blood mm[Hg][facility]07-24-2024 08:57-0400Heart rate63 /min [facility]07-24-2024 08:57-0400Systolic blood kmveotpq968 mm[Hg][facility]07-05-2024 09:19-0400Body obifyt359.64 cmT[facility] Hospital07-05-2024 09:19-0400Body mass index (BMI) [Ratio]28 kg/l1NohkwoekrToledo Hospital07-05-2024 09:19-0400Body weight 78.92 kgToledo Hospital07-05-2024 09:19-0400Diastolic blood piqvizue31 mm[Hg][facility]07-05-2024 09:19-0400Heart rate78 /[facility]07-05-2024 09:19-1515PuG7% (BldA) [Mass fraction]98 %[facility]07-05-2024 09:19-0400 Systolic blood dwyteorl039 mm[Hg][facility]04-22-2024 10:09-0400Body ygandb237.64 cmT[facility] Hospital04-22-2024 10:09-0400Body mass index (BMI) [Ratio]28.8 kg/j9TuxftnvguToledo Hospital04-22-2024 10:09-0400Body ferqte65.9 kgT[facility] 07-31-2023 10:09-0400Diastolic blood aqgffbwk78 mm[Hg][facility]04-22-2024 10:09-0400Heart rate74 /[facility] 07-31-2023 10:09-0400Systolic blood fnzoynby831 mm[Hg][facility]09-14-2022 14:20-0400Blood Pressure LocationMichael NILL [facility] Surgery Fhcuqglw41-57-0465 14:20-0400Diastolic blood tflismei13 mm[Hg]Mihaela CALVILLO General Surgery Nqpgctle51-88-9245 14:20-0400Heart rate 72 /minMichael NILL General Surgery Qaahqqpg13-93-7322 14:20-0400 Respiratory rate16 /minMichael NILL General Surgery Wxpwznox82-80-3481 14:20-0400Systolic blood gqmaacjg317 mm[Hg]Mihaela NILL General Surgery [place] Encounters Encounter DateEncounter TypeCare ProviderFacilityStart: 04-32-6932zwtfcfqodvtuan Vance MDFacility:[facility]art: 01-01-2025 End: 23-31-6958Ttrahpw encounter procedureCornelius Garrison MD-[facility] Work Phone: Start: 01-01-2025 End: 76-25-6229cxxakfpinaLlpqnr E Braun MD Work Phone: [facility] Work Phone: Start: 01-01-2025 End: 58-96-6739Owqhwiwo ReferredCornelius Garrison MD-[facility] Work Phone: Start: 12-24-2024 End: 81-11-4299eedsieuqcpJWYKONA NKANSAH-AMANKRAFacility:EU [facility] Hospitaltart: 12-24-2024 End: 17-50-6398Pdqwdbg encounter procedureBRIE MCKAY [facility] Start: 12-23-2024 End: 10-62-6679cbqdmxtcpkKppffy E Braun MD Work Phone: [facility] Work Phone: Start: 12-23-2024 End: 97-25-7120Pijoism encounter Brendne Garrison MD-[facility] Work Phone: Start: 83-33-0471Ydk-patient / Non-visitCatmelissa Lemuel HIDALGO-[facility] Work Phone: Start: 87-70-8475Ozf-patient / Non-visitGianni Shahriar Keenajasper DO-[facility] Work Phone: Start: 10-59-4277Iks-patient / Non-visitSelizabethtamiko Mckeon -[facility] Work Phone: Start: 63-56-1369Qev-patient / Non-visitSsavanna Mitch Mike [facility] Work Phone: Start: 12-13-2024 End: 57-06-2834jgwmummfdfMvnbq M. LueFacility:CD:[id number]: 35-09-0698Tpp- patient / Non-visitRadeondre Gonsalves MD-[facility] Work Phone: Start: 12-11-2024 End: 33-01-5597welwogjyqySgkwvd E BraunFacility:[facility] Centertart: 43-75-3881Txj-patient / Non-visitСергей Camara -[facility] Work Phone: Start: 12-06-2024 End: 61-20-4243bblimbcyvkSbfhqd E Braun MD Work Phone: [facility] Work Phone: Start: 12-06-2024 End: 26-08-3192Efdrznq encounter procedureCornelius Garrison MD-[facility] Work Phone: Start: 12-02-2024 End: 02-86-9996oidtsmyqkxKlbudk E Braun MD Work Phone: [facility] Work Phone: Start: 12-02-2024 End: 38-42-5215Uotsjghz ReferredCornelius Garrison MD-[facility] [place] Work Phone: start: 12-02-2024 End: 84-66-9214nxsidfgizzOmofgd E Braun MD Work Phone: [facility] Work Phone: Start: 12-02-2024 End: 49-95-2317Tvaribj encounter procedureCornelius Garrison MD-[facility] Work Phone: Start: 11-26-2024 End: 42-71-8982rivtmwzijfQOFXKAP NKANSAH-TIMURFacility:EU [place]walkStart: 11-26-2024 End: 32-89-1293Wixwpah encounter procedureBRIE MACK-TIMUR [facility] Start: 11-18-2024 End: 35-11-9514ekoqjiwhvqTsgluk J GaleaFacility:EU [place]vueStart: 11-18-2024 End: 02-81-2724Mqfnmtf encounter procedureAlysha J Galea [facility] start: 11-15-2024 End: 65-10-3669twjzicqxemPilgds E Braun MD Work Phone: [facility] Work Phone: Start: 11-15-2024 End: 85-29-0159Eabxttd encounter procedureCornelius Garrison MD-[facility] Work Phone: Start: 24-69-9481Gvk-patient / Non-visitCatherine Lemuel HIDALGO-[facility] Work Phone: Start: 11-13-2024 End: 10-65-4420cwtkhiaomgGmaffa E Braun MD Work Phone: [facility] Work Phone: Start: 11-13-2024 End: 50-18-7506Kbtlloiu Alec Mckay MD-[facility] [place] HospStart: 60-31-8576Lgz-patient / Non-visitGianni Shahriar Keenajasper [facility] Work Phone: Start: 11-13-2024 End: 70-48-9169fsijwxeswuCBFDAFVSydni MCKAYFacility:CD:[id number]: 97-14-1134Rtl-patient / Non-visitDelvin Carlos [facility] Work Phone: Start: 66-83-0202jxtsesrqicTUZDOTITasha MCKAY Facility:EU [facility]ueStart: 95-52-8946Slf-patient / Non-visitCatherine Lemuel [facility]- [facility] Work Phone: Start: 11-03-2024 End: 02-24-9187geggzwnonoDstpsd E Braun MD Work Phone: [facility] Work Phone: Start: 11-03-2024 End: 81-78-7091Ugfvagda Meenakshi Garrison MD-[facility] Start: 35-62-8729Rxd-patient / Non-visitDaviviana Oleary MD-[facility] Work Phone: Start: 20-83-4073Abm-patient / Non-visitCatherine Lemuel [facility] Work Phone: Start: 10-01-2024 End: 64-20-1538Whkfbyfnu department patient visitCORNELIUS Esteves [facility] HospitalStart: 09-27-2024 End: 20-40-2274Lppsbkn encounter procedureCornelius Garrison MD-[facility] Work Phone: Start: 07-30-2024 End: 96-13-7421tqdynomsvzQoclztnvRobert Traylor [place]-CFacility:[facility]ertart: 07-22-2024 End: 61-14-6509gfiivlgpiiLwuerar Vytautas Giedraitis MDFacility:[facility] [place] Start: 07-08-2024 End: 16-90-1309bnblcdldmvLueezrz Vytautas Giedraitis MDFacility:[facility] [place] Start: 06-26-2024 End: 88-39-8051viknbutodnZtrysj Braun MD Work Phone: [facility] Work Phone: Start: 06-26-2024 End: 69-07-9522Rhfflad encounter Brenden Garrison MD Work Phone: On [facility] Work Phone: Start: 06-17-2024 End: 41-43-2881ssystotelkGxvdfyh Vytautas Giedraitis MDFacility:[facility] [place] Start: 06-06-2024 End: 29-92-3603vysanzmrpdZqwlf Marie King PA-CFacility:[facility] CenterStart: 06-05-2024 End: 17-87-0945Bcfhis outpatient new 45 minutesBenjamin W Murcek DO Work Phone: noms ENT SANDUSKYComment on above:Thyroid nodule (CMS/HCC) (Primary Dx)Start: 06-05-2024 End: 23-95-5966Utjrtt flowsheetBenjamin W Murcek DO Work Phone: [facility] ENT SANDUSKYStart: 06-05-2024 End: 69-80-6688Uyhthd flowsheetBenjamin W Murcek DO Work Phone: [facility] ENT SANDUSKYStart: 06-05-2024 End: 47-76-8584mxjudoztyoNJITTXAO W MURCEKNot AvailableStart: 05-13-2024 End: 77-96-3470ealfmrixktGidkcyz Vytautas Giedraitis MDFacility:PM [place] Start: 38-75-1378arjxczmloeEkbzpd E Braun MD Work Phone: [facility] Work Phone: Start: 45-52-7416Fiu-patient / Non-visitCornelius Garrison MD Work Phone: [facility] Work Phone: Start: 04-29-2024 End: 58-92-2937ttwomwzldzIbcdlqg Rizwana Oreilly MDFacility:[facility] [place] Start: 04-22-2024 End: 66-71-3553xcwkxxdlvgGutwwt E Braun MD Work Phone: [facility] Work Phone: Start: 04-22-2024 End: 40-37-3839Kddkzxrn ReferredCornelius Garrison MD Work Phone: [facility]-LAB Path Spec [place] HospStart: 04-22-2024 End: 03-23-6552niydynrmyvCdqkork Rizwana Oreilly MDFacility:[facility] [place] Start: 04-15-2024 End: 79-97-2136ahrwyzcvsiIuxgtr E Braun MD Work Phone: [facility] Work Phone: Start: 04-15-2024 End: 29-72-5731Rutrygn encounter procedureCornelius Garrison MD Work Phone: [facility]At[facility] Work Phone: Start: 04-01-2024 End: 72-37-6809Nckypvk encounter procedureNicole Keith DO Work Phone: noms NE NEUROComment on above:Lumbosacral radiculopathy (Primary Dx); Numbness and tinglingStart: 04-01-2024 End: 68-03-1540nrxxvpbptdQUPPNM DANNERNot AvailableStart: 04-01-2024 End: 78-87-0944Pjfddg flowsheetNicole Keith DO Work Phone: [facility]OMS NE NEUROStart: 04-01-2024 End: 47-33-8032Oqbnrm flowsheetNicole Keith DO Work Phone: noms NE NEUROStart: 03-29-2024 End: 87-26-8008Iwefysz encounter procedureCornelius Garrison MD Work Phone: [facility]sent[facility] GroupGrand [facility] Work Phone: Start: 03-25-2024 End: 62-15-4705rlwrtisuraZwmvf Marie King PA-CFacility:[facility] CenterStart: 31-95-9346Xyq-patient / Non-visitCornelius Garrison MD Work Phone: On [facility]Prov[facility] Work Phone: Start: 03-11-2024 End: 91-71-8579Adgnahg encounter procedureCornelius Garrison MD Work Phone: On License [facility] Work Phone: Start: 71-13-4562Ggo-patient / Non-visitCornelius Garrison MD Work Phone: On License Of [facility] Work Phone: Start: 03-04-2024 End: 81-70-3927Hrsgphj encounter Brenden Garrison MD Work Phone: [facility]-Respiratory Therapy Work Phone: Start: 03-04-2024 End: 97-70-1075yhnlsrceuyIefqdg E BraunFacility:[facility] Centertart: 02-23-2024 End: 68-74-6719guwedeensiLhwji Marie King PACFacility:[facility] Start: 02-19-2024 End: 91-90-8718eiepgqnwqwMjhsyMeadowview Regional Medical CenterCFacility:[facility] Start: 02-13-2024 End: 25-09-4937lwtbldnzelBpalz Marie King PACFacility:[facility] CenterStart: 02-08-2024 End: 23-08-1983bbxjsrsvusNT Cornelius Garrison Work Phone: [facility] Work Phone: Start: 02-08-2024 End: 21-68-6047Rdyfbnm encounter procedureMD Cornelius Garrison Work Phone: On License [facility] Work Phone: Start: 13-33-3904Znt-patient / Non-visitMD Cornelius Garrison Work Phone: On [facility] GroupGrand [facility] Work Phone: Start: 35-50-8186Qso-patient / Non-visitCornelius Garrison MD Work Phone: [facility] Work Phone: Start: 01-24-2024 End: 29-49-1814rttmegxfaiUV Cornelius Garrison Work Phone: [facility] Work Phone: Start: 01-24-2024 End: 29-11-7602Ptdeujv encounter procedureMD Cornelius Garrison Work Phone: On License Of [facility] Physician [facility] Work Phone: Start: 01-24-2024 End: 22-71-3500Sklcmmh encounter procedureMD Cornelius Garrison Work Phone: [facility] Start: 01-24-2024 End: 40-27-1785cawnvxyshyGS Cornelius Garrison Work Phone: [facility] Work Phone: Start: 76-33-1857Rhj-patient / Non-visitMD Cornelius Garrison Work Phone: [facility] Work Phone: Start: 23-16-4757Qcz-patient / Non-visitMD Cornelius Garrison Work Phone: [facility] GroupProv[facility] Work Phone: Start: 01-09-2024 End: 73-68-3904zilprrnthdChvoqcxafCoshocton Regional [facility] Center Work Phone: Start: 01-09-2024 End: 88-35-9854Uhmnmlq encounter procedureOn License Of [facility] GroupGrand [facility] Work Phone: Start: 11-01-2023 End: 88-44-7684tjdvyxlccvOukzjzpzvCoshocton Regional Medical Center Work Phone: Start: 11-01-2023 End: 25-34-9336Ujtehxa encounter procedureOn License Of [facility] GroupGrand [facility] Work Phone: Start: 10-13-2023 End: 16-60-3368hnoqindhjyGpnilqsxvCoshocton Regional Medical Center Work Phone: Start: 10-13-2023 End: 12-35-7618Mrjwncm encounter procedureOn License Of [facility] GroupGrand [facility] Work Phone: Start: 07-31-2023 End: 30-66-3605qixwmqyofyCbghgdjilCoshocton Regional Medical Center Work Phone: Start: 07-31-2023 End: 42-62-7425Vrmnxbm encounter procedureOn License Of [facility] GroupGrand [facility] Work Phone: Start: 88-02-1168Mtb-patient / Non-visitOn License Of [facility] GroupProv[facility] Work Phone: Start: 02-01-2022 End: 12-17-4327Qtwvhmr encounter procedureMichael R NILL General Surgery Nill/Said [place] Start: 27-05-6278Zltthlcsf for preprocedural laboratory examinationDR MIHAELA Banerjee Luther[facility] Hospitaltart: 01-12-2022 End: 68-84-1720nttowygyueTP CORNELIUS GARRISONFacility:D2Ljhaf: 01-10-2022 End: 90-83-4440xjnqullcsbYE MIHAELA RAJINDERFacility:X1Acdiy: 01-10-2022 End: 11-65-3780Ngsovjuio for preprocedural laboratory examinationDR MIHAELA CALVILLO Facility:I6Cpnpk: 12-22-2021 End: 18-54-2196Pafucan encounter procedureMichael R NILL General Surgery Nill/Said [place] Start: 12-17-2021 End: 01-52-6301flnutycuwwAJ DOCTOR MISCFacility:H1 Procedures DateProcedureProcedure DetailPerforming ClinicianStart: 10-06-5683Icgxn culture Cornelius Garrison MD Work Phone: Start: 29-20-0275Nrjco Nat Garrison MD Work Phone: Start: 04-01-2024 End: 31-06-6390Wfbiww emg ea extremty w/paraspinl area completeNicole Keith DO Work Phone: Start: 46-59-3097P-ray of both knees, three viewsMD Cornelius Garrison Work Phone: Start: 79-53-2512FffcgwqfkgmPvewnyly Murcek DO Work Phone: start: 16-63-2840IpnqdgvgliqEvhewsb NILL Start: 92-98-9597MqbmnpkbrnvuocjfdvmrmffxogLwvcfeo NILL Bilateral oophorectomyMichael NILL ColonoscopyMichael NILL Decompression of thoracic spineMichael NILL Discectomy of spineMichael NILL Comment on above:[id number]dpj Mihaela KERNL Excision of bunionMichael NILL Repair of vaginal tearMichael NILL TonsillectomyMichael NILL Plan of Treatment DateCare ActivityDetailAuthorStart: 26-45-3406Tjgtfhlpe for malignant neoplasm of colonNOMS HealthcareStart: 06-10-2025 End: 10-12-2075Ctzfgsr encounter tovjzwyrp09/03/2026 8:45 AM EST Office Visit NOMJonathan [place] [address] [place] [phone] Geoff Walker, DO [address] [place] [address] NOMS KEVYN DEVIYStart: 84-93-3620Acvva culture [facility] Centertart: 07-38-2109Lvujeplc identified in Urine by CultureUrine [facility] Hospitaltart: 85-23-7365Qhmhl [facility] Centertart: 18-14-9663Utmktnmh identified in Urine by CultureUrine [facility] Hospitaltart: 12-02-[address] [facility] Centertart: 92-55-5616Wsuzqutm identified in Urine by CultureWVUMedicine [facility] Start: 61-87-2405Ldmdm [facility] Centertart: 06-26-2024 [facility] Work Phone: Start: 06-05-2024 End: 51-74-8411Itvnckn encounter thklkixri77/26/2025 2:30 PM EST Office Visit NOMJonathan [place] [address] [place] [phone] Geoff Walker, DO [address] [place] [address] ArrivedNOMS ENT SANDUSKYComment on above:ArrivedStart: 10-29-5900Pnkasda referralTr[facility] Work Phone: Start: 67-13-7753Cxxgayx referralTr[facility] Work Phone: Start: 04-01-2024 End: 03-92-1188Fygvgmk encounter umrkmqrxc03/23/2024 3:00 PM EST Procedure Visit [facility] [place] [address] [place] [phone] Kane Parker, [address] [place] [address] ArrivedNOSD NE NEUROComment on above:ArrivedStart: 81-62-8209A-ray of both knees, three viewsXR knee BI 3V - NOT FOR ER USEOhioHealth Grant Medical Centertart: 61-48-6969CH Knee - bilateral 3 ViewsOhioHealth Grant Medical Centertart: 97-39-3236Mhpjxkylqwnu Vaccine: 65+ Years (1 of 1 - PCV) Pneumococcal Vaccine: 65+ Years (1 of 1 - PCV)[facility] HealthcareStart: 01-10-2024 Patient [facility]Tr[facility] Work Phone: Start: 76-30-6141Ftyebbpoz vaccinationInfluenza Vaccine (#1)[facility] HealthcareStart: 91-45-7100Djnwcehfc for malignant neoplasm of breastMammogramNOMS HealthcareStart: 42-25-2367Jdopmpfba for malignant neoplasm of cervixNOMS HealthcareStart: 83-97-3493Riqgplgga for malignant neoplasm of cervixPap SmearNOMS HealthcareStart: 70-57-8986Ivsgchwuf for malignant neoplasm of colonNOMS HealthcareCT Unspecified body regionToledo HospitalCT Unspecified body regionToledo HospitalDXA Skeletal system.axial Views for bone densityToledo HospitalPatient EducationLow back pain in adultsTrinity Health System [facility] Work Phone: Patient referralTr[facility] Health [facility] Work Phone: Urine cultureToledo HospitalUrine [facility] CenterUrine cultureToledo HospitalUS Lower extremity vein - rightToledo HospitalUS Thyroid glandShasta Regional Medical Center Immunizations Immunization DateImmunizationNotesCare BgfqrlqyNzvvabor50-07-4769hdvbxgattd, tetanus toxoids and acellular pertussis vaccine, unspecified formulationCornelius Garrison MD Work Phone: [facility]12-20-2021COVID-19 mRNA, Comirnaty (Pfizer)[facility]05-04-2021COVID-19 mRNA, Comirnaty (BeauCoo)[facility]04-13-2021COVID-19 mRNA, Comirnaty (BeauCoo)[facility]06-30-2019diphtheria, tetanus toxoids and acellular pertussis vaccine, unspecified formulation [facility]10-29-2014tetanus and diphtheria toxoids, adsorbed, preservative free, for adult use (5 Lf of tetanus toxoid and 2 Lf of diphtheria toxoid)[facility] Payers DatePayer CategoryPayerPolicy [id number] Health Insurance [id number] OTHER Member Subscriber Plan / Payer (Effective 2024-Present) Name: Cristine Manley Ak mber ID: [id number] Relation to Subscriber: Self Name: Cristine Manley Payer ID: Not on file Group ID: Not on file Type: Not on file Address: [place] [id number] [id number] 2024Medicare [id number] Saxm-[id number] 2.16.840.1.203457.3.579.2.593 [id number] 2.16.840.1.627144.3.57[id number] 2.16.840.1.836140.3.57[id number] 2.16.840.1.896376.3.57[id number] 2.16.840.1.155183.3.57[id number] 2.16.840.1.086188.3.579.2.55415-32-8316Vddngte55481298 2.16.840.1.422880.3.579.2.35942-24-6328Eauwnnr58414974 2.16.840.1.234407.3.579.2.68168-68-5373Hqrlesl17527755 2.16.840.1.378059.3.579.2.45105-09-3553Dioymre05595117 2.16.840.1.195928.3.579.2.26334-06-2862Wkfeeru02671467 2.16.840.1.119270.3.579.2.85307-47-5079Avosmqn80842685 2.16.840.1.520874.3.579.2.51343-24-9490Bipwkbk228638309 2.16.840.1.632973.3.579.2.97924-42-6345Shlpund134093913 2.16.840.1.439825.3.579.2.62392-90-9014Fwkozzw241622720 2.16.840.1.374199.3.579.2.25015-92-1696Fukcvdj466379068 2.16.840.1.762809.3.579.2.68681-41-8717Gnfrphl355971064 2.16.840.1.560432.3.579.2.35405-25-3536Jfvgrhb201619236 2.16.840.1.508476.3.579.2.22389-84-5387Itrszhy557761643 2.16.840.1.519268.3.579.2.66463-13-2646Acwifim315976814 2.16.840.1.200205.3.579.2.93878-24-4160Zznopmj544446344 [id number] Health InsuranceAetna [facility] [id number] Netrerek [id number] Social History DateTypeDetailFacilityStart: 12-22-2021 End: 72-92-0743Gglwd tobacco smoker (finding)General [facility]: 51-53-7204BtiqawPnrmvxg Surgery [place] Start: 07-31-2023 End: 14-81-0328Qqbgvmz smoking status NHISSmoker (finding)[facility]: 04-59-8578Uuf [facility] At [facility]FeC[facility] HospitalTobacco smoking status NHISTobacco smoking consumption unknownNOMS HealthcareStart: 65-93-1488Nhv assigned at birthNot on fileNOMS Healthcare Start: 06-21-2022 End: 20-76-6697KndEwsmdm (finding)[facility]: 06-05-2024 End: 46-63-7088Gggdocd smoking status NHISSmokes tobacco dailyNOMS Healthcare History of tobacco useCigarette SmokerNOMS HealthcareStart: 92-56-0960Ocbyhrz use and exposureSmokeless tobacco non-userNOMS HealthcareStart: 06-05-2024 Alcoholic beverage intakeEx-drinker (finding)[facility]OMS HealthcareStart: 06-05-2024 History of Social functionNOMS HealthcareSexual OrientationExecutive [facility] of [facility] Functional Status QalpYnbabexzpsYoowzzDodstper36-75-8964V/AGeneral Surgery [place] Clinical Notes 01-12-2022 to 12-24-2024 Note Date & VcmcFfkwAmnvfytu87-27-7327 Hospital Discharge instructions Patient Education 12/24/2024 10:11:35 Cystoscopy Cystoscopy Cystoscopy is a procedure that is used to help diagnose and sometimes treat conditions that affect the lower urinary tract. The lower urinary tract includes the bladder and the urethra. The urethra is the tube that drains urine from the bladder. Cystoscopy is done using a thin, tube-shaped instrument with a light and camera at the end (cystoscope). The cystoscope may be hard or flexible, depending on the goal of the procedure. The cystoscope is inserted through the urethra, into the bladder. Cystoscopy may be recommended if you have: Urinary tract infections that keep coming back. Blood in the urine (hematuria). An inability to control when you urinate (urinary incontinence) or an overactive bladder. Unusual cells found in a urine sample. A blockage in the urethra, such as a urinary stone. Painful urination. An abnormality in the bladder found during an intravenous pyelogram (IVP) or CT scan. Cystoscopy may also be done to remove a sample of tissue to be examined under a microscope (biopsy). Tell a health care provider about: Any allergies you have. All medicines you are taking, including vitamins, herbs, eye drops, creams, and hegw-hqi-zhdzoqb medicines. Any problems you or family members have had with anesthetic medicines. Any blood disorders you have. Any surgeries you have had. Any medical conditions you have. Whether you are or may be . What are the risks? Generally, this is a safe procedure. However, problems may occur, including: Infection. Bleeding. Allergic reactions to medicines. Damage to other structures or organs. What happens before the procedure? Medicines Ask your health care provider about: Changing or stopping your regular medicines. This is especially important if you are taking diabetes medicines or blood thinners. Taking medicines such as aspirin and ibuprofen. These medicines can thin your blood. Do not take these medicines unless your health care provider tells you to take them. Taking tnmw-atn-xmofysp medicines, vitamins, herbs, and supplements. Tests You may have an exam or testing, such as: X-rays of the bladder, urethra, or kidneys. CT scan of the abdomen or pelvis. Urine tests to check for signs of infection. General instructions Follow instructions from your health care provider about eating or drinking restrictions. Ask your health care provider what steps will be taken to help prevent infection. These steps may include: ?Washing skin with a germ-killing soap. ?Taking antibiotic medicine. Plan to have a responsible adult take you home from the hospital or clinic. What happens during the procedure? You will be given one or more of the following: ?A medicine to help you relax (sedative). ?A medicine to numb the area (local anesthetic). The area around the opening of your urethra will be cleaned. The cystoscope will be passed through your urethra into your bladder. Germ-free (sterile) fluid will flow through the cystoscope to fill your bladder. The fluid will stretch your bladder so that your health care provider can clearly examine your bladder melendrez. Your doctor will look at the urethra and bladder. Your doctor may take a biopsy or remove stones. The cystoscope will be removed, and your bladder will be emptied. The procedure may vary among health care providers and hospitals. What can I expect after the procedure? After the procedure, it is common to have: Some soreness or pain in your abdomen and urethra. Urinary symptoms. These include: ?Mild pain or burning when you urinate. Pain should stop within a few minutes after you urinate. This may last for up to 1 week. ?A small amount of blood in your urine for several days. ?Feeling like you need to urinate but producing only a small amount of urine. Follow these instructions at home: Medicines Take hiok-tla-tqhfufx and prescription medicines only as told by your health care provider. If you were prescribed an antibiotic medicine, take it as told by your health care provider. Do notstop taking the antibiotic even if you start to feel better. General instructions Return to your normal activities as told by your health care provider. Ask your health care provider what activities are safe for you. If you were given a sedative during the procedure, it can affect you for several hours. Do not drive or operate machinery until your health care provider says that it is safe. Watch for any blood in your urine. If the amount of blood in your urine increases, call your healthcare provider. Follow instructions from your health care provider about eating or drinking restrictions. If a tissue sample was removed for testing (biopsy) during your procedure, it is up to you to get your test results. Ask your health care provider, or the department that is doing the test, when yourresults will be ready. Drink enough fluid to keep your urine pale yellow. Keep all follow-up visits. This is important. Contact a health care provider if: You have pain that gets worse or does not get better with medicine, especially pain when you urinate. You have trouble urinating. You have more blood in your urine. Get help right away if: You have blood clots in your urine. You have abdominal pain. You have a fever or chills. You are unable to urinate. Summary Cystoscopy is a procedure that is used to help diagnose and sometimes treat conditions that affect the lower urinary tract. Cystoscopy is done using a thin, tube-shaped instrument with a light and camera at the end. After the procedure, it is common to have some soreness or pain in your abdomen and urethra. Watch for any blood in your urine. If the amount of blood in your urine increases, call your healthcare provider. If you were prescribed an antibiotic medicine, take it as told by your health care provider. Do notstop taking the antibiotic even if you start to feel better. This information is not intended to replace advice given to you by your health care provider. Make sure you discuss any questions you have with your health care provider. Document Revised: 12/08/2021 Document Reviewed: 11/06/2020 [employer] Patient Education 2023 [employer]. 12/24/2024 09:53:01 Steps to Quit Smoking Steps to Quit [...] health care provider if you have any questionsor concerns. How do I get ready to [...] require a prescription. You can also purchase tlgn-wcn-ynomsiw medicines. Medicines may have nicotine in them [...] and encouragement. Call telephone quitlines, such as 4-738-PBFC-NOW, reach out to support groups, or work [...] provider. Document Revised: 03/18/2022 Document Reviewed: 03/18/2022 [employer] Patient Education 2023 [employer]. Follow Up Care 12/17/2024 10:08:14 With:MIRA TAVERAS, BRIE, URL Address: When: Unknown [facility] 09-16-2025 NotePatient Education Pulmonary Medicine Steps to Quit Smoking Smoking tobacco is [...] health care provider if you have any questionsor concerns. How do I get ready to [...] provider tells you to. Quit right away ??? Quit smoking completely, instead of gradually reducing how much you smoke over a period of time. Stopping smoking right away may be more successful than gradually quitting. ??? Attend in-person counseling to help you build problem-solving skills. You are more likely to succeed in quitting if you attend counseling sessions regularly. Even short sessions of 10 minutes canbe effective. Take medicine You may take medicines to help you quit smoking. Some medicines require a prescription. You can also purchase pnjf-bgp-juypuog medicines. Medicines may have nicotine in them to replace the nicotine in cigarettes. Medicines may: ??? Help to stop cravings. ??? Help to relieve withdrawal symptoms. Your health care provider may recommend: ??? Nicotine patches, gum, or lozenges. ??? Nicotine inhalers or sprays. ??? Non-nicotine medicine that you take by mouth. Find resources Find resources and support systems that can help you quit smoking and remain smoke-free after you quit. These resources are most helpful when you use them often. They include: ??? Online chats with a counselor. ??? Telephone quitlines. ??? Printed self-help materials. ??? Support groups or group counseling. ??? Text messaging programs. ??? Mobile phone apps or applications. Use apps that can help you stick to your quit plan by providing reminders, tips, and encouragement. Examples of free services include Quit Guide from the CDC and smokefree.gov What can I do to make it easier to quit? Reach out to your family and friends for support and encouragement. Call telephone quitlines, such as 1-711-KSTA-NOW, reach out to support groups, or work with a counselor for support. ??? Ask people who smoke to avoid smoking around you. ??? Avoid places that trigger you to smoke, such as bars, parties, or smoke- break areas at work. ??? Spend time with people who do not smoke. ??? Lessen the stress in your life. Stress can be a smoking trigger for some people. To lessen stress, try: ? Exercising regularly. ? Doing deep-breathing exercises. ? Doing yoga. ? Meditating. What benefits will I see if I quit smoking? Over time, you should start to see positive results, such as: ??? Improved sense of smell and taste. ??? Decreased coughing and sore throat. ??? Slower heart rate. ??? Lower blood pressure. ??? Clearer and healthier skin. ??? The ability to breathe more easily. ??? Fewer sick days. Summary ??? Quitting smoking can be very challenging. Do not get discouraged if you are not successful the first time. Some people need to make many attempts to quit before they achieve long-term success. ??? When you decide to quit smoking, create a plan to help you succeed. ??? Quit smoking right away, not s (more content not included)...[facility]08-19-2025 Hospital Discharge instructions Patient Education 11/26/2024 09:29:32 Steps to [...] health care provider if you have any questionsor concerns. How do I get ready to [...] require a prescription. You can also purchase purk-cid-jcauzlf medicines. Medicines may have nicotine in them [...] and encouragement. Call telephone quitlines, such as 3-390-VFRR-NOW, reach out to support groups, or work [...] provider. Document Revised: 03/18/2022 Document Reviewed: 03/18/2022 [employer] Patient Education 2023 [employer]. 11/26/2024 09:15:52 Bladder Cancer Bladder Cancer Bladder [...] cells. Follow these instructions at home: Take nzka-ebc-yaofzlj and prescription medicines only as told by your health care provider. If you were prescribed an antibiotic medicine, take it as told by your health care provider. Do notstop using the antibiotic even if you start to feel better. Eat a healthy diet. Some treatments might affect your appetite. Do not use any products that contain nicotine or tobacco. These products include cigarettes, chewing tobacco, and vaping devices, such as e-cigarettes. If you need help quitting, ask your health careprovider. Consider joining a support group. This may help you learn to deal with the stress of having bladdercancer. Tell your cancer care team if you develop side effects. Your team may be able to recommend ways to get relief. Keep all follow-up visits. This is important. Where to find more information [place] [employer] (ACS): cancer.org National Cancer Norman (NCI): cancer.gov Contact a health care provider [...] to deal with the stress of having bladdercancer. This information is not intended to replace advice given to you by your health care provider. Make sure you discuss any questions you have with your health care provider. Document Revised: 03/07/2022 Document Reviewed: 03/07/2022 [employer] Patient Education 2023 [employer]. Follow Up Care 11/13/2024 13:19:08 With:BRIE MCKAY MD, URL Address: When: Unknown [facility] 08-19-2025 NotePatient Education Oncology Bladder Cancer Bladder cancer is [...] Follow these instructions at home: ??? Take ppfa-itd-grsyvaz and prescription medicines only as told by your health care provider. ??? If you were prescribed an antibiotic medicine, take it as told by your health care provider. Donot stop using the antibiotic even if you [...] Your team may be able to recommend waysto get relief. ??? Keep all follow-up visits. This is important. Where to find more information ??? [place] [employer] (ACS): cancer.org ??? National Cancer Norman (NCI): cancer.gov Contact a health care provider [...] physical exam, lab tests, imaging tests, and yoursymptoms. ??? Your health care provider may recommend one or more types of treatment based on the stage of your cancer. ??? Consider joining a support group. This may help you learn to deal with the stress of having bladder cancer. This information is n (more content not included)...[facility] 11-15-2024 Evaluation note* Diagnosis Onset Date Resolution Status Admit Date Bladder mass acuteAugust 2024 2:27pmLumbar radiculopathy, chronicacuteAugust 2024 2:27pmBladder canceracuteAugust 2024 11:24amFebrile illnessacuteAugust 2024 11:24amLeft flank painacuteAugust 2024 11:24amThrushacuteAugust 2024 11:34amUTI (urinary tract infection)acuteAugust 2024 11:34am Bladder canceracuteSeptember 2024 2:26pmLumbar radiculopathy, chronicacute Jessica 2024 2:26pmUTI (urinary tract infection)acuteSeptember 2024 2:26pmVaginal yeast infectionacuteSept2024 2:26pmUTI (urinary tract infection)acuteSeptember 2024 9:57am [facility] Work Phone: 1(607) 257-887806-20-2025 Evaluation note* Diagnosis Onset Date Resolution Status Admit Date Gastroenteritis acuteJune 2024 2:23pmLumbar radiculopathy, chronicacuteJune 2024 2:23pm [facility] Work Phone: 1(324) 573-457606-20-2025 Evaluation note* Diagnosis Onset Date Resolution Status Admit Date Gastroenteritis acuteJune 2024 2:23pmLumbar radiculopathy, chronicacuteJune 2024 2:23pmBladder massacuteAugust 2024 2:27pm [facility] Work Phone: 1(369) 992-501306-20-2025 Evaluation note* Diagnosis Onset Date Resolution Status Admit Date Gastroenteritis acuteJune 2024 2:23pmLumbar radiculopathy, chronicacuteJune 2024 2:23pmBladder massacuteAugust 2024 2:27pmLumbar radiculopathy, chronicacute November 15, 2024 2:27pmBladder canceracuteAugust 2024 11:24amFebrile illnessacuteAugust 2024 11:24amLeft flank painacuteAugust 2024 11:24am [facility] Work Phone: 1(182) 451-820706-20-2025 Evaluation note* Diagnosis Onset Date Resolution Status Admit Date Gastroenteritis acuteJune 2024 2:23pmLumbar radiculopathy, chronicacuteJune 2024 2:23pmBladder massacuteAugust 2024 2:27pmLumbar radiculopathy, chronicacute November 15, 2024 2:27pmBladder canceracuteAugust 2024 11:24amFebrile illnessacuteAugust 2024 11:24amLeft flank painacuteAugust 2024 11:24amThrushacuteAugust 2024 11:34amUTI (urinary tract infection)acute December 06, 2024 11:34am [facility] Work Phone: 1(911) 981-514806-20-2025 Evaluation note* Diagnosis Onset Date Resolution Status Admit Date Gastroenteritis acuteJune 2024 2:23pmLumbar radiculopathy, chronicacuteJune 2024 2:23pmBladder massacuteAugust 2024 2:27pmLumbar radiculopathy, chronicacute November 15, 2024 2:27pmBladder canceracuteAugust 2024 11:24amFebrile illnessacuteAugust 2024 11:24amLeft flank painacuteAugust 2024 11:24amThrushacuteAugust 2024 11:34amUTI (urinary tract infection)acute December 06, 2024 11:34amUTI (urinary tract infection)acuteSeptember 2024 2:26pm [facility] Work Phone: 1(464) 350-869102-26-2025 History of Present illness Narrative* Geoff Walker, - 06/05/2024 2:30 PM EST Subjective Patient ID: HPI 64-year-old female referred for a right thyroid mass. This was found during a workup for something else. Ultrasound was done showing a 2.8 cm inferior based right thyroid mass. FNA was performed which came back as [employer], Afirma testing was then done showing [...] back in 1 year documented in this encounterSaint Luke's HospitalHynoducqdg85-55-9261 Hospital Discharge instructionsAmbulatory Orders* Referral to ENT Time Frame: 05/10/24, Location: [facility] Work Phone: 1(322) 208-610412-23-2024 History of Present illness Narrative* NEEMA NuñezT - 04/01/2024 3:00 PM EST Images from the original note were not included. Reason for Appointment: EMG Patient: Cristine Manley : 1960 EMG Computer: [employer] Referring Physician: Ofelia Arceo PA-C EMG: MANISH counselor nurses' association: Daniel Dougherty RT(R) Office Location: [place] Reason for EMG: c/o numbness/tingling in bilateral [...] nature of the test. 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 2024 3:12pmModerate persistent asthma, uncomplicatedacuteJanuary 2024 3:12pmLumbar radiculopathy, chronicacuteMarch 2024 8:28am [facility] Work Phone: 1(316) 511-266112-02-2024 Evaluation note* Diagnosis Onset Date Resolution Status Admit Date Cigarette nicotine dependence with nicot ine-induced disorder acuteDecember 2023 3:14pmEncounter for immunizationacuteDecember 2023 3:14pmEncounter for screening for lung canceracuteDecember 2023 3:14pm Moderate persistent asthma, uncomplicatedacuteDecember 2023 3:14pmLumbar radiculopathy, chronicacuteDecember 2023 8:45amPain in posterior right lower extremityacuteDeceer 2023 8:45amRight thyroid noduleacuteDecember 2023 8:45amCigarette nicotine dependence with nicotine-induced disorder acuteJanuary 2024 3:12pmEncounter for screening for lung canceracuteJanuary 2024 3:12pmLong term (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 of 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acuteJanuary 2024 3:12pmModerate persistent asthma, uncomplicatedacuteJanuary 2024 3:12pm [facility] Work Phone: 1(325) 302-212311-15-2024 NotePatient Education Materials Name: Cristine Manley Current Date: 02/23/2024 07:10:10 [place] : 1960 [facility]: [id number] The following sheet(s) are the Patient Education [...] for continued care. Thank you for choosing [facility] for your care.[facility]10-31-2024 Evaluation note* Diagnosis Onset Date Resolution Status Admit Date COPD exacerbation acuteOctober 2023 1:31pmLumbar radiculopathy, chronicacuteOctober 2023 1:31pmMenopauseacuteOctober 2023 1:31pmRib fractureacuteOctober 2023 1:31pmCigarette nicotine dependence with nicotine-induced disorderacute March 11, 2024 3:14pmEncounter for immunizationacuteDecemb2023 3:14pmEncounter for screening for lung canceracuteDecember 2023 3:14pm Moderate persistent asthma, uncomplicatedacuteDecember 2023 3:14pmLumbar radiculopathy, chronicacuteDecember 2023 8:45amPain in posterior right lower extremityacuteDecember 2023 8:45amRight thyroid noduleacuteDecember 2023 8:45amCigarette nicotine dependence with nicotine-induced disorder acuteJanuary 2024 3:12pmEncounter for screening for lung canceracuteJanuary 2024 3:12pmLong term (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 of 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acuteJanuary 2024 3:12pmModerate persistent asthma, uncomplicatedacuteJanuary 2024 3:12pm [facility] Work Phone: 1(239) 423-497310-16-2024 Evaluation note* Diagnosis Onset Date Resolution Status Admit Date Bilateral knee pain acuteOctober 2023 2:05pmPrimary osteoarthritis of both kneesacuteOctober 2023 2:05pmCOPD exacerbationacuteOctober 2023 1:31pmLumbar radiculopathy, chronicacuteOctober 2023 1:31pmMenopauseacuteOctober 2023 1:31pmRib fractureacuteOctober 2023 1:31pmCigarette nicotine dependence with nicotine-induced disorderacuteDecember 2023 3:14pmEncounter for immunizationacuteDecember 2023 3:14pmEncounter for screening for lung canceracuteDecember 2023 3:14pmModerate persistent asthma, uncomplicated acuteDecember 2023 3:14pmLumbar radiculopathy, chronicacuteDecember 2023 8:45amPain in posterior right lower extremityacuteDecember 2023 8:45amRight thyroid noduleacuteDecember 2023 8:45amCigarette nicotine dependence with nicotine-induced disorderacuteJanuary 2024 3:12pmEncounter for screening for lung canceracuteJanuary 2024 3:12pmModerate persistent asthma, uncomplicatedacuteJanuary 2024 3:12pm [facility] Work Phone: 1(456) 922-898710-05-2022 NoteOPERATIVE NOTE OPERATION DATE: 01/12/2022 PREOPERATIVE DIAGNOSIS: [...] of the polyp. CC: Cornelius Garrison M.D.[facility] No data available for this section General Surgery [place] Evaluation + Plan note Future Appointments Appointment Date:11/26/2024 08:45:00 AM Scheduled Provider:BRIE MCKAY MD Location:[facility] Appointment Type:URO Office Visit [facility] evaluation + Plan note Future Appointments Appointment Date:03/07/2025 09:00:00 AM Scheduled Provider: Location:[facility] Appointment Type:Urology CALL PAT FT Appointment Date:03/10/2025 01:00:00 PM Scheduled Provider: Location:[facility] Appointment Type:Urology FT [facility] Evaluation + Plan note Future Appointments Appointment Date:02/24/2025 01:00:00 PM Scheduled Provider: Location:[facility] Appointment Type:Urology FT Appointment Date:03/07/2025 09:00:00 AM Scheduled Provider: Location:[facility] Appointment Type:Urology CALL PAT FT [facility] Evaluation note* Diagnosis Onset Date Resolution Status Lumbar radiculopathy, chronic acute [facility] Work Phone: Evaluation note* Diagnosis Onset Date Resolution Status Lumbar radiculopathy, chronic acuteHeadacheacuteJoint painacuteTick biteacute [facility] Work Phone: Evaluation note* Diagnosis Onset Date Resolution Status Headache acuteJoint painacuteTick biteacuteChronic obstructive pulmonary disease, unspecifiedacuteLumbar radiculopathy, chronicacute [facility] Work Phone: Evaluation note* Diagnosis Onset Date Resolution Status Chronic obstructive pulmonary disease, u nspecified acuteLumbar radiculopathy, chronicacuteBilateral knee painacuteCOPD exacerbation acuteLumbar painacuteLumbar radiculopathy, chronicacuteBilateral knee painacute Primary osteoarthritis of both kneesacute [facility] Work Phone: Evaluation note* Diagnosis Onset Date Resolution Status Bilateral knee pain acuteCOPD exacerbationacuteLumbar painacuteLumbar radiculopathy, chronicacute Bilateral knee painacutePrimary osteoarthritis of both kneesacuteMenopauseacute [facility] Work Phone: Evaluation note* Diagnosis Lumbosacral radiculopathy- Primary Thoracic or lumbosacral neuritis or radiculitis, unspecified Numbness and tingling Disturbance of skin sensation documented in this encounter [facility] HealthcareEvaluation note* Diagnosis Thyroid nodule (CMS/HCC)- Primary Nontoxic uninodular goiter documented in this encounter [facility] HealthcareHospital Discharge instructions No data available for this section General Surgery [facility] Discharge instructionsAmbulatory Orders* Referral to Orthopedics Time Frame: 06/26/24, Location: None Selected [facility] Work Phone: Progress note No data available for this section General Surgery [place] Reason for referral (narrative)No reason for referral information [facility] Work [facility]: Reason for visit Narrative* Other Medical (Routine) - ClosedSpecialtyDiagnoses / ProceduresReferred By ContactReferred To Contact Neurology Diagnoses Neuralgia and neuritis, unspecified Procedures MA NEEDLE EMG EA EXTREMTY W/PARASPINL AREA COMPLETE MA NERVE CONDUCTION STUDIES 9-10 STUDIES Ofelia Arceo PA-C [address] [place] [address] Phone: tel: fax: Cecil Fields MD [address] [place] [address] Phone: tel: fax: Referral IDStatusReasonStart DateExpiration DateVisits RequestedVisits [id number] Perform Procedure / [facility] Healthcare Summary Purpose Family History No Family History Records Found Relationship Condition Age at Onset Recorded Date/T tyron Not Specified Diabetes mellitus Unknown HypertensionUnknownfatherMalignant neoplasmUnknown Relationship Condition Age at Onset Recorded Date/T tyron mother Diabetes mellitus Unknown HypertensionUnknownfatherMalignant neoplasmUnknown Advance Directives No Advanced Directives Records Found [...] for Visit Chief Complaint Amb Documentation Medication CheckReason for VisitLumbar radiculopathy, chronic Chief Complaint Medication Check tick biteReason for VisitLumbar radiculopathy, chronic Headache Joint pain Tick bite Chief Complaint tick bite 3 month follow upReason for VisitHeadache Joint pain Tick bite Chronic obstructive pulmonary disease, unspecified Lumbar radiculopathy, chronic Chief Complaint tick bite 3 month follow up Back Issues/Knee PainReason for VisitHeadache Joint pain Tick bite Chronic obstructive pulmonary disease, unspecified Lumbar radiculopathy, chronic Chief Complaint 3 month follow up Back Issues/Knee Pain M25.561 - Pain in right knee CONSULT DR. BLADIMIR TIRADO KNEE PAIN, NXReason for VisitChronic obstructive pulmonary disease, unspecified Lumbar radiculopathy, chronic Bilateral knee pain COPD exacerbation Lumbar pain Lumbar radiculopathy, chronic Bilateral knee pain Primary osteoarthritis of both knees Chief Complaint Back Issues/Knee Lindsay n M25.561 - Pain in right knee CONSULT DR. 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 April [...] swallowing, tongue raw December 06, 2024 11:34am Reason for Visit Admit Date Gastroenteritis September 27, 2024 2:23 pm Lumbar radiculopathy, chronic September 27, 2024 2:23pm Bladder mass November 15, 2024 2:2 7pm Lumbar radiculopathy, chronic November 2:27pm Bladder cancer December 02, 2024 11 :24am Febrile illness December 02, 2024 11 :24am Left flank pain December 02, 2024 11 :24am Thrush December 06, 2024 11 :34am UTI (urinary tract infection) November 11:34am Chief Complaint Admit Date check up September [...] swallowing, tongue raw December 06, 2024 11:34am Amb Documentation December 17, 2024 10:26am TB follow up December 23, 2024 2:26pm Reason for Visit Admit Date Gastroenteritis September 27, 2024 2:23 pm Lumbar radiculopathy, chronic September 27, 2024 2:23pm Bladder mass November 15, 2024 2:2 7pm Lumbar radiculopathy, chronic November 2:27pm Bladder cancer December 02, 2024 11 :24am Febrile illness December 02, 2024 11 :24am Left flank pain December 02, 2024 11 :24am Thrush December 06, 2024 11 :34am UTI (urinary tract infection) November 11:34am UTI (urinary tract infection) December 23, 2024 2:26pm Chief Complaint Admit Date Unknown November 03, 2024 5:19 am Amb Documentation November 04, 2024 8:45 am Unknown November 13, 2024 9:5 1am Amb Documentation November 13, 2024 1:4 3pm hospital follow up November 15, 2024 2:2 7pm Virtual, High Fever, Headache November 11:24am R10.9, R50.9 December 02, 2024 1: 30pm difficulty swallowing, tongue raw December 06, 2024 11:34am Amb Documentation December 17, 2024 10:26am TBH follow up December 23, 2024 2:26pm UA January 01, 2025 9:57am Reason for Visit Admit Date Bladder mass November 15, 2024 2:2 7pm Lumbar radiculopathy, chronic November 2:27pm Bladder cancer December 02, 2024 11 :24am Febrile illness December 02, 2024 11 :24am Left flank pain December 02, 2024 11 :24am Thrush December 06, 2024 11 :34am UTI (urinary tract infection) November 11:34am Bladder cancer December 23, 2024 2:26pm Lumbar radiculopathy, chronic December 23, 2024 2:26pm UTI (urinary tract infection) December 23, 2024 2:26pm Vaginal yeast infection December 23, 2024 2:26pm UTI (urinary tract infection) January 01, 2025 9:57am Additional Source Comments Care Team (unrecognized sect ion and content) Team Status: Active Member Role Status Dates Cornelius Garrison MD Primary Care Provider Active Team Status: Active Member Role Status Dates Cornelius Garrison MD Primary Care Provider Active Start: November 03, 2024 Matthew Klein ProviderActiveStart: November 03, 2024 Team Status: Inactive Member [...] Start: November 15, 2024 End: November 15, 2024Marcia E Garrison , MDAttending ProviderActiveStart: November 15, 2024 End: November 15, 2024 Team Status: Inactive Member Role Status Dominick Garrison MD Primary Care Provider Active Start: December 02, 2024 End: December 02, 2024Cornelius Garrison MDAttending ProviderActiveStart: December 02, 2024 End: December 02, 2024 Team Status: Inactive Member Role Status Dominick Garrison MD Attending Provider Active St art: December 02, 2024 End: December 02, 2024 Team Status: Inactive Member Role Status Dominick Garrison MD Primary Care Provider Active Start: December 06, 2024 End: December 06, 2024Cornelius Garrison MDAttending ProviderActiveStart: December 06, 2024 End: December 06, 2024 Team Status: Active Member Role Status Dominick Garrison MD Primary Care Provider Active Start: December 11, 2024 Сергей Arnett , DOAttending ProviderActiveStart: December 11, 2024 Team Status: Active Member Role Status Dominick Garrison MD Primary Care Provider Active Start: December 12, 2024 Jone Gonsalves MDAttending ProviderActiveStart: December 12, 2024 Team Status: Active Member Role Status Dominick Garrison MD Primary Care Provider Active Start: December 13, 2024 Raheem Mckeon DOAttending ProviderActiveStart: December 13, 2024 Team Status: Active Member Role Status Dominick Garrison MD Primary Care Provider Active Start: December 14, 2024 Raheem Mckeon DOAttending ProviderActiveStart: December 14, 2024 Team Status: Active Member Role Status Dominick Garrison MD Primary Care Provider Active Start: December 15, 2024 Gianni France DOAttending ProviderActiveStart: December 15, 2024 Team Status: Active Member Role Status Dominick Garrison MD Primary Care Provider Active Start: December 17, 2024 Vera Hdez CMAAttending ProviderActiveStart: December 17, 2024 Team Status: Inactive Member Role Status Dominick Garrison MD Primary Care Provider Active Start: December 23, 2024 End: December 23, 2024Cornelius Garrison MDAttending ProviderActiveStart: December 23, 2024 End: December 23, 2024 Team Status: Inactive Member Role Status Dominick Garrison MD Primary Care Provider Active Start: January 01, 2025 End: January 01, 2025Cornelius Garrison MDAttdavid ProviderActiveStart: January 01, 2025 End: January 01, 2025 Team Status: Inactive Member Role Status Dominick Garrison MD Primary Care Provide r, Attending Provider Active Start: March 29, 2024 End: March 29, 2024 Team Status: Inactive Member Role Status Dominick Garrison MD Primary Care Provider Active Start: April 15, 2024 End: April 15, 2024Scott Dennis , DOAttending ProviderActiveStart: April 15, 2024 End: April 15, 2024 [...] Start: January 19, 2024 Delvin Campbell , DOAttending ProviderActiveStart: January 19, 2024 Team Status: Active Member Role Status Dominick Garrison MD Primary Care Provider Active Start: January 19, 2024 Ran Orlando ProviderActiveStart: January 19, 2024 Team Status: Inactive Member Role Status Dominick Garrison MD Primary Care Provider Active Start: January 24, 2024 End: January 24, 2024Alexandro Galvez DOAttending ProviderActiveStart: January 24, 2024 End: January 24, 2024 Team Status: Active Member Role Status Dominick Garrison MD Primary Care Provider Active Start: February 01, 2024 Geoff Rock DOAttending ProviderActiveStart: February 01, 2024 Team Status: Active Member [...] Active Start: March 04, 2024 Reynaldo Tee , MDAttending ProviderActiveStart: March 04, 2024 Team Status: Inactive Member Role Status Dates Cornelius Garrison MD Primary Care Provide r, Referring Provider Active Start: March 11, 2024 End: March 11, 2024Natly Dennis , DOAttending ProviderActiveStart: March 11, 2024 End: March 11, 2024 Team Status: Active Member Role Status Dates Cornelius Garrison MD Primary Care Provider Active Start: March 21, 2024 Scottly Dennis , DOAttending ProviderActiveStart: March 21, 2024 Team Status: Inactive Member Role Status Dates Cornelius Garrison MD Primary Care Provide r, Attending Provider Active Start: July 31, 2023 End: July 31, 2023 Team Status: Inactive Member Role Status Dates Cornelius Garrison MD Primary Care Provider Active Start: October 13, 2023 End: October 13, 2023Brittanie Siu APRN CLOTH PRINTER HELPER-CAttending ProviderActiveStart: October 13, 2023 End: October 13, 2023 Team Status: Active Member Role Status Dates Cornelius Garrison MD Primary Care Provider Active Start: May 26, 2023 Terri Luis ProviderActiveStart: May 26, 2023 Team Status: Inactive Member [...] Active Start: January 24, 2024 Alexandro Galvez DOAttending ProviderActiveStart: January 24, 2024 Team MemberRelationshipSpecialtyStart DateEnd Date Cornelius Garrison MD [address] [facility] [place] [phone] PCP - GeneralFamily Nqxtpoyi64/18/24 Ofelia Arceo MD [address] [place] [address] Referring PhysicianInternal Pgctorgw89/18/24Team MemberRelationshipSpecialty Start DateEnd Date Cornelius Garrison MD [address] [facility] [place] [phone] PCP - GeneralFamily Mhdgpqhj68/18/24 Ofelia Arceo MD [address] [place] [address] Referring PhysicianInternal Aojvpdqu05/18/24Team MemberRelationshipSpecialty Start DateEnd Date Cornelius Garrison MD [address] [facility] [place] [phone] PCP - GeneralFamily Pptvxtus76/18/24 Ofelia Arceo MD [address] [place] [address] Referring PhysicianInternal Wqzreogq99/18/24 Geoff Walker DO [address] [place] [address] Otolaryngology2/Team MemberRelationshipSpecialtyStart DateEnd Date Cornelius Garrison MD [address] [facility] [place] [phone] PCP - GeneralFamily Dytbvabl10/18/24 Ofelia Acreo MD [address] [place] [address] Referring PhysicianInternal Hqlgcmgj78/18/24 Geoff Walker DO [address] [place] [address] Otolaryngology2 Team Status: Inactive Member Role Status Dates Cornelius Garrison MD Primary Care Provider Active Start: September 27, 2024 End: September 27, 2024Cornelius Garrison MDAttdavid ProviderActiveStart: September 27, 2024 End: September 27, 2024 Team Status: Active Member Role Status Dates Cornelius Garrison MD Primary Care Provider Active Start: October 02, 2024 Vera Hdez CMAAttending ProviderActiveStart: October 02, 2024 INFORMATION SOURCE (unrecogn ized section and content) DATE CREATED AUTHOR 04/01/2022 [facility] DATE CREATED AUTHOR AUTHOR'S ORGANIZ ATION 06/07/2024 [facility] DATE CREATED AUTHOR AUTHOR'S ORGANIZ ATION 10/02/2024 [facility] DATE CREATED AUTHOR AUTHOR'S ORGANIZ ATION 12/26/2024 [facility] DATE CREATED AUTHOR AUTHOR'S ORGANIZ ATION 01/10/2025 [facility] DATE CREATED AUTHOR AUTHOR'S ORGANIZ ATION 02/02/2025 [facility] Goals (unrecognized section and content) Goals may be documented in a n alternate section Reason for Visit (unrecogniz ed section and content) ReasonCommentsThyroid NoduleNew patient : thyroid nodule / FNA done FOR RECORDS PERTAINING [...] BE BASED ON THE PRIMARY CLINICAL RECORDS. [facility], [facility]. provides no warranty or guarantee of the accuracy or completeness of information in this document.
--- OUTSIDE RECORDS SUMMARY | 2025-02-03 07:34 | XMS_ITS | Clinical Summary ---
Author Organization [facility] Address [address] [place] [address] Care Team Providers Care Talent Development Analyst Name Role Phone Celia Blank MD Primary Care Provider [phone] Allergies Active AllergyReactionsCriticalityNoted DateCommentsLevofloxacinUnknown 03/11/20102566JvvxhueerqSkdgwwy31/11/2011Sulfa (Sulfonamide Antibiotics)Unknown 03/11/2010 Medications MedicationSigDispense QuantityRefillsLast FilledStart DateEnd DateStatus fluticasone-salmeterol (ADVAIR DISKUS) 250-50 mcg/dose INHALATION DsDv Indications:Hypothyroidism,Burning pain,Neck swelling,Neck stiffness,Shortness of breath,History of smoking,Disturbance of skin sensationUses once daily0 03/11/2010ctive omeprazole (PRILOSEC) 20 mg ORAL capsule Indications:Hypothyroidism,Burning pain,Neck swelling,Neck stiffness,Shortness of breath,History of smoking,Disturbance of skin sensationTake one(1) capsule daily.ctive tizanidine (ZANAFLEX) 4 mg ORAL tablet Take 4 mg by mouth every 8 hours as needed.Active amitriptyline 25 mg ORAL tablet Take 1 tablet by mouth daily at bedtime.ctive diclofenac potassium (CATAFLAM) 50 mg tablet Take 50 mg by mouth twice daily.Active HYDROcodone-acetaminophen (NORCO) 5-325 mg per tablet Take 1 tablet by mouth every 6 hours as needed.Active albuterol HFA (PROAIR HFA) 90 mcg/actuation inhaler Inhale 2 Puffs as instructed every 4 hours as needed.Active fluticasone-salmeterol (ADVAIR DISKUS) 250-50 mcg/dose dsdv Inhale 1 Puff as instructed twice daily.Active Active Problems No known active problems Family History Medical HistoryRelationCommentsHeartBrother 1CHFHypertensionBrother 1 HypertensionBrother 2CancerFatherLungs (unsure of primary)Tremor [Other]Father ArthritisMotherCoronary Artery DiseaseMotherDiabetesMotherdementia [Other]Mother RelationStatusCommentsBrother 1Brother 2FatherMother Social History Tobacco UseTypesPacks/DayYears UsedDateSmoking Tobacco: Every ZdeEdnnkhdcak813 Smokeless Tobacco: NeverAlcohol UseStandard Drinks/WeekCommentsNo0 (1 standard drink = 0.6 oz pure alcohol)quit 30 years priorCommentsNoSex and Gender InformationValueDate RecordedSex Assigned at BirthNot on fileLegal SexFemale 03/11/2012 8:33 AM ESTGender IdentityNot on fileSexual OrientationNot on file Last Filed Vital Signs Vital SignReadingTime TakenCommentsBlood Mrdgercp183/7211 1:14 PM EST Ayjhi7549 1:14 PM ESTTemperature--Respiratory Hgch0277 1:14 PM ESTOxygen Rnqeldcyyo10%03/09/2016 1:14 PM ESTInhaled Oxygen Concentration-- Zqfvpb60.5 kg (173 lb)03/09/2016 1:14 PM EIGVduqhm342.2 cm (5' 7 )03/09/2016 1:14 PM ESTBody Mass Index27.111 1:14 PM EST Plan of Treatment Health MaintenanceDue DateLast DoneCommentsAnxiety Jshnytfey68/14/1977Depression Tjjhubwyc28/14/1977Hepatitis C Buljcjfgq03/14/1977DTaP,Tdap,Td Vaccine (1 - Tdap)1978Mammogram Nxjunojri71/14/1999CT Dvjbmzstdyhg69/14/2004Cologuard (FIT-DNA)01/22/20048336Tkrymcuqgpg00/14/2004Colorectal Cancer Xmogmswsv47/14/2004 Fecal Occult Blood01/22/2004Lipid Bccgyljeh85/14/3787Thnbjnqtvqwfw59/14/2004 Pneumococcal Vaccine: 50+ (1 of 1 - PCV)2009Shingrix Vaccine (1 of 2) 2009Diabetes Yxdwucimt40, 03/11/2010one Density Gvzxoxpay42/14/2024dvance Directive Zftfuxftfk96/01/2025ovid-19 Vaccine ( - 2024- season)2024Influenza Vaccine (#1)2024RSV Vaccine (1 - 1-dose 75+ series)2034 Procedures Procedure NamePriorityDate/TimeAssociated DiagnosisCommentsCOMPREHENSIVE METABOLIC WXXGAWbxonlk99/02/2010 3:48 PM EST Hypothyroidism Burning pain Neck swelling Neck stiffness Shortness of breath History of smoking Disturbance of skin sensation from Last 3 Months or Most Recently Relevant to Health Maintenance Results * COMP METABOLIC PANEL (03/11/2010 3:48 PM EST)ComponentValueRef RangeTest MethodAnalysis TimePerformed AtPathologist SignatureProtein, Total6.86.0 - 8.4 g/dLBRECKSVILLE VA / CRILLE [facility] LABORATORYAlbumin4.73.5 - 5.0 g/dLBRECKSVILLE VA / [facility]IL[facility] LABORATORYCalcium9.88.5 - 10.5 mg/dLBRECKSVILLE VA [facility] Bilirubin, Total0.30.0 - 1.5 mg/dLBRECKSVILLE VA / [facility]IL[facility] LABORATORYAlkaline Josmprsfgmh5945 - 150 U/LCW[facility] QXGIRJOPUDHQM078 - 40 U/L [facility] ODTADKWWGVWccmkpu1022 - 100 mg/dLBRECKSVILLE [facility] CJSYTPHAUEATL497 - 25 mg/dLBRECKSVILLE [facility] LABORATORYCreatinine0.940.70 - 1.40 mg/dLBRECKSVILLE [facility] CHFUZXJKIKOjddlj931291 - 148 mmol/LCWILSON [facility] MAIN LABORATORYPotassium4.83.5 - 5.0 mmol/LCWIL[facility] RSYMTIYLBVLinztvom75612 - 110 mmol/LC[facility] FHRTEGELMIXW96723 - 32 mmol/LCWIL[facility]IN LABORATORYAnion Ssl271 - 15 mmol/LC[facility] UFKZXQVSFLXLG977 - 45 U/LCWIL[facility]IN LABORATORYeGFR- >60H[facility] LABORATORYeGFR-All Other Races>60. [facility] LABORATORYComment: eGFR (Estimated GFR) Units of measure: mL/min/1.73 meters squared eGFR is derived from the reexpressed MDRD Study equation using the following parameters: serum creatinine, age, gender and race. The creatinine assay has been calibrated to be traceable to IDMS. An eGFR <60 mL/min/1.73m2 for >3 months is consistent with chronic kidney disease. Refer to KDOQI guidelines for clinical interpretation. Specimen (Source)Anatomical Location / LateralityCollection Method / Volume Collection TimeReceived TimeBlood specimen (specimen)BLOOD SPECIMEN / Unknown 03/11/2010 3:48 PM EST03/11/2010 5:06 PM EST Narrative Authorizing ProviderResult TypeResult StatusDavihanna Drew MDLABORATORYFinal ResultPerforming OrganizationAddressCity/State/ZIP CodePhone Number [facility] [address] [place] [address] from Last 3 Months or Most Recently Relevant to Health Maintenance Care Teams Team MemberRelationshipSpecialtyStart DateEnd Date Celia Blank MD [address] [place] [phone] PCP - GeneralFamily Elbtkxzd22/30/10
--- OUTSIDE RECORDS SUMMARY | 2025-02-03 07:34 | XMS_ITS | Patient Health Record ---
Author Organization [facility] Address [address] [place] [address] Care Team Providers Care Mechanical Oxidizer Name Role Phone Celia Blank M.D. Primary Care Provider Unavail able Jose L Vance Unavailable [phone] Cecil Malik Unavailable [phone] xxSravani Traylor Unavailable Allergies Allergen (clinical drug ingredient) Drug/Non Drug Allergy documented on EMR Reaction Allergy Type Onset Date Status BIAXIN (uncoded)UnknownAllergyActiveLEVAQUIN (uncoded)UnknownAllergyActiveSULPHA (uncoded)UnknownAllergyActivePercocetUnknownDrug AllergyActive Results Component Value Reference Range Notes Surgery Scheduling (Not yet reviewed by provider) Interpretation: Performing Lab: Notes/Report: Primary Insurance Company: MEDICARE Surgeon/Assist:ST NAVARRETE/CECIL OR ALEXISSsanty Location:[facility] Date & Time: 03/04/25 @ 11:30AMMHosp arrival time day of:9:30AMSurgery End Time:2:30PM Procedure:L3-S1 DECOMPRESSION AND FUSION, L5-S1 TLIFSpecial Equipment:SSEP, CELL SAVER, PRONE, MARTHA TABLE, SURGALIGNDiagnosis:M48.062 STENOSISAdmission Type: INPATIENTAnesthesia Type/CPNB:GENERALPost-op Appointment Date:04/17/25 @ 1:30PM FINDLAYLab [facility] Date/Time:ASAPScheduler:GAYLElearance Physician:DR BLANK 02/12/25 @ 11AMClearance Appt Date/TSAMSA 02/07/25 @ 1PM ([place])History & Physical Appointment Date/:02/27/25 @ 9:10AM FINDLAYCT Spine Lumbar Myelogram w/ Contrast Reviewed date:09/19/2024 11:52:34 AM Interpretation: Performing Lab: Notes/Report: Patient Name: Cristine Manley CLINICAL HISTORY: Pain and radiculopathy.XR Myelography Lumbosacral Spine Reviewed date:08/20/2024 10:10:32 AM Interpretation: Performing Lab: Notes/Report: Patient Name: Cristine Manley CLINICAL HISTORY: Radiculopathy.Platelet Count Reviewed date:08/20/2024 10:10:32 AM Interpretation: Performing Lab: Notes/Report: [address] [id number] x10*3/mcLPT Reviewed date:08/20/2024 10:10:32 AM Interpretation: Performing Lab: Notes/Report: [address] [address]DI12.410.2-12.9 secondsINR0.9<=3.5 ratio INR has no normal range. INR Therapeutic range is: 2.0-3.0 (AF, CVA, TIAs, DVT prophylaxis, acute DVT) 2.5-3.5 ([facility] heart valves, recurrent thrombosis/emboli) PTT Reviewed date:08/20/2024 10:10:32 AM Interpretation: Performing Lab: Notes/Report: [address] [address]HLV72.825.1-36.5 seconds Reason For Referral Reason NO AUTH REQ......... ......................NOT SCHEDULED....................................MCR/ALLSTATE ct lumbar myelogram to be done at [facility] Diagnosis 1 Retrolisthesis (M43. 10) Referral Organization [facility] Referring Provider First Name Jose L Referring Provider Last Name St aNvarrete Referring Provider Speciality Orthopedic Surgery Referred Organization [facility] Central Scheduling Procedure 1 CT lumbar spine; W/ contrast material (88721) General Notes Luiza Camilo 2024 10:01:53 AM >, Amira Bradford 07/12/2024 10:13:12 AM > MYELOGRAM OF WHAT PART?, Luiza Camilo 07/12/2024 11:00:16 AM >SORRY LUMBAR, Amira Bradford 07/12/2024 11:03:14 AM > THANK YOU, MEDICARE PARTS A & B ACTIVE AND EFFECTIVE 01/09/24 PER [employer] WITH [employer] SECONDARY. NO AUTHORIZATION REQUIRED. FAXED TO [facility].Leslee Dawn 07/12/2024 01:28:10 PM >[facility] DOES NOT DO CT MYELOGARM, SO PATIENT WOULD LIKE TO GO TO [facility]. ORDER FAXED, Rozina Cruz 07/12/2024 02:45:10 PM > Referral Priority Routine Reason CHECK 02/10/25.........................................03/04/25........................ ...............[facility] Readz L3-S1 DECOMPRESSION AND FUSION, L5-S1 TLIF 48250, 35323 x2, 10984, 185[address], 76083, 30827, 48773, [address]7536 Diagnos is 1 Lumbar stenosis with neurogenic claudica tion (M48.062) Diagnos is 2 Radiculopathy, lumbosacral region (M54.1 7) Diagnos is 3 Degeneration of intervertebral disc of l umbar region with discogenic back pain (M51.360) Diagnos is 4 Spondylolisthesis, lumbar region (M43.16 ) Referra l [facility] Referri jack Provide r First Name Jose L santiago Provide r Last Name St Britney santiago Provide r Special ity Orthopedic Surgery Referre d [facility] Referre d Address [address] [place] [id number] [facility], General Notes Luiza Camilo 01/29/2025 08:34:14 AM >, Luiza Camilo 01/29/2025 10:52:25 AM > Referra l Priorit y Routine Medications Medication SIG (Take, Route, Frequency, Duration) Notes Start Date End Date Status albuterol ActiveTrelegy ElliptaActivePriLOSECActivebuPROPionActivetiZANidineActive HYDROcodoneActive Social History Tobacco Use: Social History Observation [...] Problem Status W/U Status Risk Notes Problem [id number] Spondylolisthesis, lumbar region (M43.16) EkfsdqnpelxitvzYwbsnxv0270614Waldcoeegxlhf, lumbosacral region (M54.17)Active zwrgdgkiiPyqsavn10807824Wlnrur stenosis with neurogenic claudication (M48.062) LiqgenxqtrkbypjIjbuuqw211691504Asowchepkgncka stenosis of lumbar spine (M48.061) XqbxnavgdaxvojeUddlzmd75848718Vlfelcsxnfpc of intervertebral disc of lumbar region with discogenic back pain (M51.360)Activeconfirmed Vital Signs Height 5'7 in 07/12/2024 Qzcnhp444 lbs07/12/2024BMI27.56007/12/2024 Procedures Procedure Date Ordered Date Performed Result Body Sit e EKG 01/29/2025 N/A Encounters Encounter Location Date Provider Diagnosis [facility] Office [address] [place] [address] 07/12/2024 Sravani [facility] Spondylolisthesis, lumbar region M43.16 and Radiculopathy, lumbosacral region M54.17 [facility] [facility] [address] [place] [address] 10/18/2024 Cecil Malik Degeneration of intervertebral disc of lumbar region with discogenic back pain M51.360 and Lumbar stenosis with neurogenic claudication M48.062 [facility] [place] [address] [place] [address] 01/29/2025 Jose L Vance Radiculopathy, lumbosacral region M54.17 ; Lumbar stenosis with neurogenic claudication M48.062 ; Degeneration of intervertebral disc of lumbar region with discogenic back pain M51.360 and Spondylolisthesis, lumbar region M43.16 Assessments Encounter Date Diagnosis (ICD Code) Assessment Notes Treatment Notes Treatment Clinical Notes Section Notes 07/12/2024 Spondylolisthesis, lumbar region (ICD-10 - M43.16) 1. Prior T12-L1 left hemilaminectomy and facetectomy 2. L1 on 2 spondylolisthesis 3. L5-S1 radiculopathy 07/12/2024Radiculopathy, lumbosacral region (ICD-10 - M54.17) 1. Prior T12-L1 left hemilaminectomy and facetectomy 2. L1 on 2 spondylolisthesis 3. L5-S1 radiculopathy 10/18/2024Lumbar stenosis with neurogenic claudication (ICD-10 - M48.062)1. L3- S1 degenerative disc disease and facet arthropathy with stenosis and ortykhlpvdjrq42/11/2025Degeneration of intervertebral disc of lumbar region with discogenic back pain (ICD-10 - M51.360)1. L3-S1 degenerative disc disease and facet arthropathy with stenosis and gsawbozeaosrv32/22/2025Radiculopathy, lumbosacral region (ICD-10 - M54.17)01/29/2025Lumbar stenosis with neurogenic claudication (ICD-10 - M48.062)01/29/2025Degeneration of intervertebral disc of lumbar region with discogenic back pain (ICD-10 - M51.360)01/29/2025 Spondylolisthesis, lumbar region (ICD-10 - M43.16)07/12/2024Other For the patient's symptoms of her bilateral [...] L1 on 2 spondylolisthesis 3. L5-S1 radiculopathy 10/18/2024Other Plan established by Dr. Lee. At this [...] Name Order Date Chest 2 views - [id number] 01/29/2025 CBC 01/29/2025 PT/PTT 01/29/2025 BMP 01/29/2025 Surgery Scheduling 01/29/2025 MRSA (Bilateral Nares) PCR 01/29/2025 EKG 01/29/2025 CT Myelogram - Lumbar Spine 07/12/2024 Next Appt Details Provider Name:Jose L Dawn [facility], 02/06/2025 12:20:00 PM, [address] [place] [address], [phone], Provider Name:Jose L Dawn [facility], 02/27/2025 09:10:00 AM, [address] [place] [address], [phone], Provider Name:Jose L Dawn [facility], 03/04/2025 11:30:00 AM, [address] [place], [place], [phone], Provider Name:Jose L Severino, 04/17/2025 01:30:00 PM, [address] [facility], [place], [address], Insurance Providers Payer Name Payer Address Payer Phone Subscriber Number Group Number Insured Name Patient Relationship to Insured Coverage Start Date Coverage End [place] [address] [place] [address] [id number] ACTINA MANLEYelf - patient is the insuredCritical Access HospitalPO [address] [address] [place] [id number], DIANESelf - patient is the [id number] 2024 Medical (General) History Medical History History ICD Code Asthma/Emphysema/Wheezing: Yes COPD: : YesCPAP Machine:: NoHealthcare worker: NoLatex Allergy: NoOsteoporosis: YesOvarian Cysts: YesSciatica: YesStomach ulcers: YesHave you been in close contact with someone who has had MRSA within the last year?: NoHave you ever had or presently have MRSA?: NoHave you been seen by a dentist in the last year?: YesDo you have any dental problems i.e. Broken, loose, or chipped teeth, absess, gum disease?: NoSurgical History Surgery Date(Month/Year) Bunionectomy Ovaries removedTonsillectomyBack surgery T12/V9Vxrpqbomnujnptq History Reason Date(Month/Year) Ovaries Removed Kidney infectionBack surgery
--- NOTE | 2025-02-03 07:36 | XR_ITS ---
The [address] [address] Patient Name: KARLENE JIMENEZ MRN: [id number] date: 1960 Sex: F Assigned Patient Location: CARD Current Patient Location: CARD Accession/Order Number: [id number] Exam Date: 02/03/2025 07:45 Report Date: 02/03/2025 08:32 At the request of: JOYCE MACARIO MD Procedure: XR chest 2V PA AND LATERAL CHEST: CLINICAL HISTORY: Preoperative clearance. History of tobacco use. COMPARISON: 01/19/[address] 03/21/2024 Right apical scarring is noted. There is no focal parenchymal consolidation, effusion or pneumothorax. The heart is normal size. The aorta is tortuous. There is mild left tracheal deviation related to right thyroid enlargement on CT. There is no vascular congestion. The visualized bony thorax is intact. End plate spurring is present spine. XR/XR chest 2V IMPRESSION: NO ACUTE CARDIOPULMONARY ABNORMALITY. Impression dictated by: Sophia Coker M.D. 02/03/2025 8:32 AM Dictation Location: [place] [address] Electronically authenticated by: [id number] Y Date: 02/03/2025 08:32
--- NOTE | 2025-02-03 07:40 | ECG_ITS ---
The [facility] Test Date: 2025-02-03 Pat Name: KARLENE JIMENEZ Department: Room: - Gender: Female Weigher Bulker: : 1960 Requested By: [id number] Order Number: [id number] [place] MD: MARIO ALBERTO TEJEDA M.D. Measurements Intervals [place] Rate: 63 P: 65 CA: 165 QRS: 36 QRSD: 81 T: 44 QT: 391 QTc: 401 Interpretive Statements SINUS RHYTHM SEPTAL MYOCARDIAL INFARCTION [40+ ms Q WAVE IN V1/V2], PROBABLY OLD Abnormal ECG Compared to ECG 02/01/2024 00:21:40 Myocardial infarct finding now present Electronically Signed On 02-03-2025 18:05:14 EDT by MARIO ALBERTO TEJEDA M.D.
[2025-02-03 16:48] LABS: Hematocrit 37.5 % (36.0-48.0); Hemoglobin 11.9 g/dL (12.0-16.0); Immature Granulocytes Abs Auto 0.01 10^3/uL (0.00-0.03); Immature Granulocytes Pct Auto 0.1 % (0.0-0.5); Lymphocytes Absolute Auto 2.5 10^3/uL (1.2-3.8); Mean Corpuscular HGB Conc 31.7 g/dL (29.9-35.2); Mean Corpuscular Hemoglobin 27.3 pg (26.7-34.0); Mean Corpuscular Volume 86.0 fL (81.0-99.0); Platelet Count 291 10^3/uL (150-450); Red Blood Count 4.36 10^6/uL (4.20-5.40); White Blood Count 8.9 10^3/uL (4.0-11.0)
[2025-02-03 16:54] LABS: Anion Gap 13.4; Blood Urea Nitrogen 28.0 mg/dL (7.0-18.0); Calcium 8.8 mg/dL (8.5-10.1); Carbon Dioxide 27.5 mmol/L (21.0-32.0); Chloride 106 mmol/L (98-107); Estimated GFR (African America >60 (>=60 mL/min/1.73m^2); Estimated GFR (Non-African Ame 55 (>=60 mL/min/1.73m^2); Glucose 100 mg/dL (74-106); Potassium 3.9 mmol/L (3.5-5.1); Sodium 143 mmol/L (136-145)
[2025-02-03 16:57] LABS: INR 1.00; Partial Thromboplastin Time 27.5 sec (22.3-36.2); Prothrombin Time 10.6 sec (9.0-11.6)
== END 2025-02-03 07:32 | disposition home or self-care (01) ==
LOC: CARD 07:31
PROVIDERS: PCP Family Medicine; Visit Provider Orthopaedic Surgery Orthopaedic Surgery of the Spine
DX: M48.062 Spinal stenosis, lumbar region with neurogenic claudication (principal); Z01.810 Encounter for preprocedural cardiovascular examination; Z01.812 Encounter for preprocedural laboratory examination
CPT/HCPCS: 36415; 71046; 80048; 85025; 85610; 85730; 87081; 93005

== ENCOUNTER 2025-02-20 07:40 | Outpatient (OUT) | payer MEDICARE, OTHER, SELFPAY ==
--- OUTSIDE RECORDS SUMMARY | 2024-10-29 02:30 | XMS_ITS ---
Author Organization [facility] in [place] Address [address] [place] [address] Care Team Providers Care Arabic Teacher Name Role Phone Celia Blank MD Primary Care Provider Unavailab Scott Mcmillan Unavailable [phone] REASON FOR VISIT F/U-6 MO. ASTHMA ([facility]) Encounters Encounter Location Date Provider Diagnosis Pulmonary Medicine [place] [address] [place] [address] 10/29/2024 Scott Dennis Plan Of Treatment No Information Progress Notes * Cristine MANLEY KDOB: (65 yo F)Acc No.[id number]:10/29/2024 UNLOCKED PROGRESS NOTE Follow Up Patient: Cristine ALEJANDRE :?Scott Ferrer DODOB:1960???Age:64 Y ???Sex:FemaleDate:10/29/2024Phone:[phone]:[address] [facility]Pcp:Celia Blank MD Subjective: * Chief Complaints: * 1 . F/U-6 MO. ASTHMA ([facility]). * Medical History: Objective: * Vitals: Assessment: Plan: * Treatment: * * Electronic signature of Scott Dennis DO on 02/20/2025 at 07:42 AM ESTSign off status: PendingVisit Status:?R/S (Rescheduled) * Provider: Aliay Dennis DO Date: 0 10/29/2024 Generated for Printing/Faxing/eTransmitting on:?02/20/2025 07:42 AM EST
--- OUTSIDE RECORDS SUMMARY | 2025-02-06 07:20 | XMS_ITS ---
Author Organization [facility] Address [address] [place] [address] Care Team Providers Care Trouble Dispatcher Name Role Phone Celia Blank M.D. Primary Care Provider Unavail able Jose L Vance Unavailable [phone] Helena Cecil Unavailable [phone] Allergies Allergen (clinical drug ingredient) Drug/Non Drug Allergy documented on EMR Reaction Allergy Type Onset Date Status BIAXIN (uncoded)UnknownAllergyActiveLEVAQUIN (uncoded)UnknownAllergyActiveSULPHA (uncoded)UnknownAllergyActivePercocetUnknownDrug AllergyActive REASON FOR VISIT Lumbar recheck Medications Medication SIG (Take, Route, Frequency, Duration) Notes Start Date End Date Status tiZANidine ActiveHYDROcodoneActiveTrelegy ElliptaActivePriLOSECActivebuPROPionActive albuterolActive Social History Tobacco Use: Social History Observation Description Date Details (start date - stop date) Light tobacco s moker NA - NA Smoking History Question Answer Notes Smoking Status light tobacco smoker AUDIT-C (Standard) Question Answer Notes Did you have a drink containing alcohol in the p ast year? No Vital Signs Height 5'7 in 02/06/2025 Weight 176 lbs 02/06/2025 BMI 27.56 02/06/2025 Encounters Encounter Location Date Provider Diagnosis [facility] [address] [place] [address] 02/06/2025 Cecil Malik Lumbar stenosis with neurogenic claudication M48.062 ; Radiculopathy, lumbosacral region M54.17 ; Degeneration of intervertebral disc of lumbar region with discogenic back pain M51.360 and Spondylolisthesis, lumbar region M43.16 Assessments Encounter Date Diagnosis (ICD Code) Assessment Notes Treatment Notes Treatment Clinical Notes Section Notes 02/06/2025 Lumbar stenosis with neurogenic claudication (ICD-10 - M48.062) 1. L3-S1 degenerative disc disease and facet arthropathy with stenosis and clmzlfsphkfmo38/30/2025Radiculopathy, lumbosacral region (ICD-10 - M54.17)1. L3- S1 degenerative disc disease and facet arthropathy with stenosis and mcrydztucdfzt11/30/2025Degeneration of intervertebral disc of lumbar region with discogenic back pain (ICD-10 - M51.360)1. L3-S1 degenerative disc disease and facet arthropathy with stenosis and lquoqetzgpoug23/30/2025Spondylolisthesis, lumbar region (ICD-10 - M43.16)1. L3-S1 degenerative disc disease and facet arthropathy with stenosis and huvdhcbjkqrhq62/30/2025Other Plan established by Dr. Lee. At this time, as discussed with the patient L3-S1 decompression and fusion with an L5-S1 transforaminal lumbar interbody fusion. Surgical risk, benefits, and alternatives were discussed at this time the patient would like to proceed with surgery. Patient will needmedical clearance before surgery, therefore we will see the patient back in the office after medically cleared. Patient seems satisfied the recommendation and encounter. The patient is very much in agreement [...] established by Dr. Lee. At this time, as discussed with the patient L3-S1 decompression and fusion with an L5-S1 transforaminal lumbar interbody fusion. Surgical risk, benefits, and alternatives were discussed at this time the patient would like to proceed with surgery. Patient will need medical clearance before surgery, therefore we will see the patient back in the office after medically cleared. Patient seems satisfied the recommendation and encounter. The patient is very much in agreement with the treatment and/or diagnostic plan set forth and all questions were answered to the patient's satisfaction. Thanks once again. If we can be of further service to your patients with disorders of the spine, cervical, thoracic, or lumbar, please do not hesitate to contact Dr. Lee. Best regards, Next Appt Details Follow Up: SCHEDULED, Jossie son: Provider Name:Jose L Booker , 02/27/2025 09:10:00 AM, [address] [place] [address], [phone], Provider Name:Jose L Booker , 03/04/2025 01:20:00 PM, [address] [place], [place], [phone], Provider Name:Jose L Booker [facility], 04/17/2025 01:30:00 PM, [address] [place] [address], [phone], Progress Notes * KARLENE MANLEY KDOB: (65 yo F)Acc No.[id number]:02/06/2025 Patient:?KARLENE MANLEY :?BLU HedrickCDOB:1960???Age:65 Y ???Sex:FemaleDate:02/06/2025Phone:[phone]:[address] [place] [address]Pcp:Celia Blank M.D. Subjective: * Chief Complaints: * 1 . Lumbar recheck. * HPI: ???General Info per Patient Report:? Dictated by Cecli Malik PA-C Patient returns to the office today 3 months since her last appointment. Patient continues to have chronic lumbar pain with pain into the bilateral lower extremities, left greater than right. Patientreport is mainly down to the bilateral posterior legs. Denies bladder or bowel dysfunction. Denies carmina weakness in the extremities. * Medical History: A sthma/Emphysema/Wheezing: Yes, COPD: [...] S moking Status l ight tobacco smoker. E xercise regularly D o you exercise? N o. W hat is your place of residence? W here do you live? P rivate home. A KACIE-C (Standard) D id you have a drink containing alcohol in the past year? N o. * Medications: T aking albuterol , Taking Trelegy Ellipta , Taking PriLOSEC , Taking buPROPion , Taking tiZANidine , Taking HYDROcodone , Medication List reviewed and reconciled with the patient * Allergies: L EVAQUIN, SULPHA, Percocet, BIAXIN. Objective: * Vitals: H t: 5'7 , Wt: 176 lbs, BMI:27.56. * Examination: ???General examination: ???On examination, the patient is well-developed, well-nourished, well-groomed, alert and oriented x3, normal mood.. Limited lumbar ROM. Tender over the lumbar spine. 5/5 muscle strength bilateral lower extremities. Sensory intact lower extremities. ??? Assessment: * Assessment: 1.?Lumbar stenosis with neurogenic claudication - M48.062 (Primary)???2.?Ra diculopathy, lumbosacral region - M54.17???3.?Degeneration of intervertebral dis c of lumbar region with discogenic back pain - M51.360???4.?Spondylolisthesis, l umbar region - M43.16???1. L3-S1 degenerative disc disease and facet arthropathy with stenosis and radiculopathy. Plan: * Treatment: Notes: Plan established by Dr. Lee. At this time, as discussed with the patient L3-S1 decompression and fusion with an L5-S1 transforaminal lumbar interbody fusion. Surgical risk, benefits, andalternatives were discussed at this time the patient would like to proceed with surgery. Patient will need medical clearance before surgery, therefore we will see the patient back in the office aftermedically cleared. Patient seems satisfied the recommendation and encounter. The patient is very much in agreement with the treatment and/or diagnostic plan set forth and all questions were answered to the patient's satisfaction. Thanks once again. If we can be of further service to your patients with disorders of the spine, cervical, thoracic, or lumbar, please do not hesitate to contact Dr. Lee. Best regards, ?? * Follow Up: A S SCHEDULED Forms: * Images: * Electronic signature of Cecil Malik PA-C on 02/20/2025 at 07:43 AM ESTSign off status: Pending * Provider: Jonathan Malik PA-C Date: Generated for Printing/Faxing/eTransmitting on:?02/20/2025 07:43 AM EST History and Physical Notes * HPI (History of Present Illness) CategorySub-CategoryDetailNotesCategory NotesGeneral Info per Patient Report Dictated by Cecil Malik PA-C Patient returns to the office today 3 months since her last appointment. Patient continues to have chronic lumbar pain with pain into the bilateral lower extremities, left greater than right. Patientreport is mainly down to the bilateral posterior legs. Denies bladder or bowel dysfunction. Deniesfrank weakness in the extremities. Examination CategorySub-CategoryDetailNotesCategory NotesGeneral examinationOn examination, the patient is well-developed, well-nourished, well-groomed, alert and oriented x3,normal mood.. Limited lumbar ROM. Tender over the lumbar spine. 5/5 muscle strength bilateral lowerextremities. Sensory intact lower extremities.
--- OUTSIDE RECORDS SUMMARY | 2025-02-07 12:00 | XMS_ITS | Encounter Summary ---
Author Organization [facility] Address [address], [address] [place] [address] Care Team Providers Care Parachute Repairer Name Role Phone Celia Blank MD Primary Care Provider [phone] Reason for Referral * Imaging (Routine) - OpenSpecialtyDiagnoses / ProceduresReferred By Contact Referred To ContactRadiology Diagnoses Cigarette nicotine dependence with nicotine-induced disorder Encounter for screening for lung cancer Procedures CT LUNG CANCER SCREENING (INITIAL/ANNUAL) Scott Dennis DO [facility] [facility] [address] [place] [address] Phone: tel: fax: Referral IDStatusReasonStart DateExpiration DateVisits RequestedVisits [id number] Reason for Visit * ReasonCommentsFollow-upPatient presents for Pulmonary Clearance. Patient is scheduled for Lumbar Fusion on 03/04/[address]25 [address]. Patient admits to smoking 1PPD. Patient denies any complaints with her breathing today. Patient is using Trelegy daily with great benefit. 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 Social History Tobacco UseTypesPacks/DayYears UsedDateSmoking Tobacco: Every QabZgsbhgfbxy019 Started: 02/06/1975Passive Smoke Exposure: CurrentSmokeless Tobacco: Never Tobacco Cessation:Ready to Q uit: Yes; Counseling Given: Yes Alcohol UseStandard Drinks/WeekCommentsNo0 (1 standard drink = 0.6 oz pure alcohol)CommentsNoSex and Gender InformationValueDate RecordedSex Assigned at BirthNot on fileLegal XpqHbhwre04/10/2013 2:49 PM ESTGender Identity Not on fileSexual OrientationNot on fileOccupationIndustryJob Start DateJob End DateBoat maintenanceNot on fileNot on fileNot on fileSeamstressNot on fileNot on fileNot on filedocumented as of this encounter Last Filed Vital Signs Vital SignReadingTime TakenCommentsBlood Shimweee664/8810 1:03 PM EDT Jqmdo718602/07/2025 1:03 PM TWNPhfvzcgykfb18 ??C (96.8 ??F)02/07/2025 1:03 PM EDT Respiratory Lbhg8363 1:03 PM EDTOxygen Nbtviqwazp98%02/07/2025 1:03 PM EDTon room airInhaled Oxygen Concentration--Uuhaxr91.2 kg (165 lb 12.8 oz) 02/07/2025 1:03 PM UTSEgbjtj505.2 cm (5' 7 )02/07/2025 1:03 PM EDTBody Mass Index25.9702/07/2025 1:03 PM EDTdocumented in this encounter Patient Instructions * Patient Instructions* Scott Dennis DO - 02/07/2025 1:37 PM EDT Continue Trelegy every day and albuterol as needed. Work on stopping smoking! documented in this encounter Progress Notes * Scott Dennis, - 02/07/2025 1:00 PM EDT Images from the original note were not included. Date of encounter: 02/07/25 Cristine Manley 1960 (65 y.o.) [address] [facility] [id number] Cristine Manley was seen today in the office by me. Below is my assessment and plan of the patient: Assessment & Plan Encounter for preoperative pulmonary examination Planned surgery for L3-S1 decompression & fusion and L5-S1 transforaminal lumbar interbody fusion (TLIF). Neurosurgery would be considered high pulmonary risk. General anesthesia would be necessary. Patient had prior spinal surgery, albeit ~15 years ago, without complication. She has some recent health issues, but her asthma remained well-controlled without any signs or symptoms of exacerbation. Explained the main issue from a pulmonary standpoint is her continued tobacco abuse at 1ppd. This increases of risk of perioperative pulmonary complications, as well as increased risk of impaired wound healing. She voiced understanding about these risks. Overall, I feel she is at an acceptable pulmonary risk to proceed with surgery. I recommend she take her Trelegy the morning of the surgery and continue it (or equivalent combination of medications during her hospital stay) along with perioperative/postoperative albuterol for any bronchospasm. Moderate persistent asthma, uncomplicated Prior treatment: Trelegy 200 > Advair 250 > Spiriva 1.25 Symptoms were worse when I saw her this past summer, but since then, her breathing has been better controlled with albuterol use only once a week. Previously evaluated her for Biologics, but she doesnot appear to be a candidate for anti-IL-5 his eosinophils were only 100, and IgE was only 41. I once again stressed the importance of smoking cessation. Patient states she does not want to use albuterol HFA; she prefers albuterol nebulized via her portable nebulizer. She denies any systemic adverse effects such as tremors or tachycardia or palpitations. Trelegy 200 and albuterol nebs were refilled today; I did not refill her HFA per her request. Screening for alpha-1 antitrypsin (AAT) deficiency was performed today in the office. Literature explaining AAT and complications regarding its deficiency were provided to the patient. Appropriate follow-up is dependent on the identified AAT genotype. Orders: albuterol (PROVENTIL) (2.5 MG/3ML) 0.083% nebulizer solution; Take 3 mLs by nebulization 4 times daily qmrvehqkzvl-rmaqkkpvx-jfsgsu (TRELEGY ELLIPTA) 200-62.5-25 MCG/ACT AEPB inhaler; Inhale 1 puff intothe lungs daily Cigarette nicotine dependence with nicotine-induced disorder Patient was counseled on smoking cessation today for 4 minutes. Previously on Wellbutrin XL 300, which helped her cut back from 1ppd to 1/2ppd. Last visit, Rx'd Chantix. She filled the Chantix, but did not use it. She remains on Wellbutrin. As above, explained the risks of continued tobacco abuse including worsening asthma/development of asthma-COPD overlap, impaired wound healing postoperatively, and risk of lung cancer. Last LDCT was March 2024. It is due 2024. This may be delayed due to her surgery. Orders: buPROPion (WELLBUTRIN XL) 300 MG extended release tablet; Take 1 tablet by mouth Daily CT LUNG CANCER SCREENING (INITIAL/ANNUAL) Encounter for screening for lung cancer The patient was evaluated for low-dose CT (LDCT) for lung cancer screening. Current Medicare-accepted eligibility criteria were reviewed. - Age 50-77 years: Patient's age = 65 y.o. - Asymptomatic (no signs or symptoms of lung cancer): Yes - Tobacco Use Smoking status: Every Day Packs/day: 1.00 Years: 2.0 packs/day for 50.0 years (98.2 ttl pk-yrs) Types: Cigarettes Start date: 02/06/1975 Passive exposure: Current Smokeless tobacco: Never Based on the above, she is a candidate for LDCT screening. LDCT screening was strongly recommended.The patient voiced agreement to proceed with LDCT screening. After the LDCT is completed, the findings will be discussed with the patient and provide appropriate recommendations based on those findings. Shared decision making with the patient today. LDCT due 03/2025. Orders: CT LUNG CANCER SCREENING (INITIAL/ANNUAL) Multiple pulmonary nodules LDCT 03/21/2024 - RUL patchy scarring and scattered pulmonary nodules 3mm or less in size. 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 Planned follow-up: Return in about 6 months (around 08/07/2025) for Asthma. Data: PFT: -Date: 03/04/2024 -FEV1/FVC: 73% -FEV1: 65% -FVC: 68% -HTF09-97%: 56% -Bronchodilator response: Partial -RV: 118% -T% -DLCO: 77% Subjective: Cristine Manley was previously established with me at [facility] and is now establishing with me at [facility]. She was last seen by me on 10/17/2024. Her records from [facility] were reviewed. Since her last visit, she has had multiple issues going on, including a retinal tear and food poisoning. She has been several days in the hospital. Despite these issues, she states her asthma is very well-controlled. She says Trelegy has helped her breathe well. She has no exacerbations. She uses a portable nebulizeropposed to the albuterol HFA. She prefers the nebulizer. She uses that about once a week. She continues to smoke unfortunately 1 pack a day. We had a lengthy discussion last visit about adding Chantix. She states she received it from the pharmacy, but put it in her medicine cabinet and has not touched it yet. She continues to use Wellbutrin XL 300. She is here for pulmonary pre-op evaluation. She is planning on having L3-S1 decompression & fusion and L5-S1 transforaminal lumbar interbody fusion (TLIF) by Dr. Lee. She had a higher level spinal surgery about 15 years ago without any complications. Review of systems: Review of Systems Constitutional: Negative for fatigue, fever and unexpected weight change. Respiratory: Negative for cough, chest tightness, shortness of breath and wheezing. Cardiovascular: Negative for chest pain. Musculoskeletal: Positive for back pain. Exam: BP 120/88 (BP Site: Right Upper Arm, Patient Position: Sitting, BP Cuff Size: Medium Adult) Pulse62 Temp 96.8 ??F (36 ??C) (Infrared) Resp 18 Ht 1.702 m (5' 7 ) Wt 75.2 kg (165 lb 12.8 oz) SpO2 99% Comment: on room air BMI 25.97 kg/m?? Physical Exam Constitutional: Appearance: Normal appearance. HENT: Mouth/Throat: Mouth: Mucous membranes are moist. Pharynx: Oropharynx is clear. Comments: Mallampati II Cardiovascular: Rate and Rhythm: Normal rate and regular rhythm. Pulmonary: Effort: No respiratory distress. Breath sounds: No wheezing or rhonchi. Comments: Breath sounds are diminished but clear Neurological: Mental Status: She is alert. Psychiatric: Mood and Affect: Mood normal. Behavior: Behavior normal. Medical history: Past Medical History: Diagnosis Date Antral ulcer 02/06/2025 Cigarette nicotine dependence with nicotine-induced disorder Depression 02/06/2025 GERD (gastroesophageal reflux disease) 02/06/2025 Kidney stone 02/06/2025 Malignant neoplasm of urinary bladder (HCC) 02/06/2025 Moderate persistent asthma, uncomplicated Multiple pulmonary nodules OA (osteoarthritis) Osteopenia 02/06/2025 Right thyroid nodule 02/06/2025 Sigmoid diverticulosis 02/06/2025 Past Surgical History: Procedure Laterality Date BLADDER SURGERY BUNIONECTOMY CATARACT REMOVAL WITH IMPLANT OVARY REMOVAL THORACIC SPINE SURGERY TONSILLECTOMY Allergies Allergen Reactions Sulfa Antibiotics Other (See Comments) Unknown - she was told not to take it d/t unknown reaction as a child Alendronate Sodium Myalgia Levofloxacin Rash Oxycodone Nausea And Vomiting Percocet Current Outpatient Medications Medication Sig Dispense Refill buPROPion (WELLBUTRIN XL) 300 MG extended release tablet Take 1 tablet by mouth Daily 90 tablet 4 albuterol (PROVENTIL) (2.5 MG/3ML) 0.083% nebulizer solution Take 3 mLs by nebulization 4 times daily 1080 mL 4 xsizwgfxbeg-dqykbzybo-zpbcfx (TRELEGY ELLIPTA) 200-62.5-25 MCG/ACT AEPB inhaler Inhale 1 puff into the lungs daily 3 each 4 HYDROcodone-acetaminophen (NORCO) 5-325 MG per tablet Take 1 tablet by mouth . tiZANidine (ZANAFLEX) 4 MG tablet Take 4 mg by mouth omeprazole (PRILOSEC) 20 MG delayed release capsule Take by mouth No current facility-administered medications for this visit. Immunization History Administered Date(s) Administered COVID-19, Inactive, PFIZER PURPLE top, DILUTE for use, (age 12 y+) 07/21/2020, 08/11/2020, 03/29/2021 DTaP vaccine 10/07/2018 Pneumococcal, PCV20, PREVNAR 20, (age 6w+), IM, 0.5mL 12/13/2024 TD 5LF, TENIVAC, (age 7y+), IM, 0.5mL 02/05/2014 Social History Tobacco Use Smoking status: Every Day Current packs/day: 1.00 Average packs/day: 2.0 packs/day for 50.0 years (98.2 ttl pk-yrs) Types: Cigarettes Start date: 02/06/1975 Passive exposure: Current Smokeless tobacco: Never Substance Use Topics Alcohol use: No Family History Problem Relation Age of Onset Diabetes type 2 Mother Hypertension Mother Cancer Father COPD Brother An electronic signature was used to authenticate this note. -Scott Dennis DO, PharmD, FACOI documented in this encounter Plan of Treatment DateTypeDepartmentCare Team (Latest Contact Info)Qfsoeddipbq21/28/2026 2:30 PM EDTOffice Visit [facility] Pulmonology [address] [place] [address] Scott Dennis DO [address] [phone] FU ASTHMANameTypePriorityAssociated DiagnosesOrder ScheduleCT LUNG CANCER SCREENING (INITIAL/ANNUAL)ImagingRoutine Cigarette nicotine dependence with nicotine-induced disorder Encounter For Screening For Lung Cancer Ordered: 02/07/2025documented as of this encounter Visit Diagnoses Diagnosis Encounter for preoperative pulmonary examination- Primary Moderate persistent asthma, uncomplicated Unspecified asthma Cigarette nicotine dependence with nicotine-induced disorder Unspecified drug-induced mental disorder Encounter for screening for lung cancer Multiple pulmonary nodules 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
--- OUTSIDE RECORDS SUMMARY | 2025-02-12 06:10 | XMS_ITS | Continuity of Care Document ---
Author Organization [facility] Address [address] [place] [address] Phone Care Team Providers Care [employer]ator Name Role Phone Celia Blank MD Primary Care Provider Celia Blank MD Attending Provider Сергей Arnett DO Attending Provider [phone] Jone Gonsalves MD Attending Provider Raheem Mckeon DO Attending Provider [phone] Gianni France DO Attending Provider Vera Hdez CMA Attending Provider Nelsy Jose L Patrick MD Attending Provider Care Teams Patient Care Team Team Status: Active Member Role/Relationship Status Dates Celia Blank MD Primary Care Provider Active Visit Care Team Team Status: Inactive Member Role/Relationship Status Dates Celia Blank MD Primary Care Provider Active Start: November 15, 2024 End: November 15, 2024Matthew Root ProviderActiveStart: November 15, 2024 End: November 15, 2024 Visit Care Team Team Status: Inactive Member Role/Relationship Status Dates Celia Blank MD Primary Care Provider Active Start: December 02, 2024 End: December 02, 2024Matthew Root ProviderActiveStart: December 02, 2024 End: December 02, 2024 Visit Care Team Team Status: Inactive Member Role/Relationship Status Dates Celia Blank MD Attending Provider Active St art: December 02, 2024 End: December 02, 2024 Visit Care Team Team Status: Inactive Member Role/Relationship Status Dates Celia Blank MD Primary Care Provider Active Start: December 06, 2024 End: December 06, 2024Celia Blank MDAttending ProviderActiveStart: December 06, 2024 End: December 06, 2024 Visit Care Team Team Status: Active Member Role/Relationship Status Dominick Blank MD Primary Care Provider Active Start: December 11, 2024 Сергей Camara Walton , DOAttending ProviderActiveStart: December 11, 2024 Visit Care Team Team Status: Active Member Role/Relationship Status Dates Celia Blank MD Primary Care Provider Active Start: December 12, 2024 Jone Gonsalves MDAttending ProviderActiveStart: December 12, 2024 Visit Care Team Team Status: Active Member Role/Relationship Status Dominick Blank MD Primary Care Provider Active Start: December 13, 2024 Raheem Mckeon DOAttending ProviderActiveStart: December 13, 2024 Visit Care Team Team Status: Active Member Role/Relationship Status Dominick Blank MD Primary Care Provider Active Start: December 14, 2024 Raheem Mckeon DOAttending ProviderActiveStart: December 14, 2024 Visit Care Team Team Status: Active Member Role/Relationship Status Dominick Blank MD Primary Care Provider Active Start: December 15, 2024 Gianni France DOAttending ProviderActiveStart: December 15, 2024 Visit Care Team Team Status: Active Member Role/Relationship Status Dominick Blank MD Primary Care Provider Active Start: December 17, 2024 Vera Hdez CMAAttending ProviderActiveStart: December 17, 2024 Visit Care Team Team Status: Inactive Member Role/Relationship Status Dominick Blank MD Primary Care Provider Active Start: December 23, 2024 End: December 23, 2024Celia Blank MDAttending ProviderActiveStart: December 23, 2024 End: December 23, 2024 Visit Care Team Team Status: Inactive Member Role/Relationship Status Dominick Blank MD Primary Care Provider Active Start: January 01, 2025 End: January 01, 2025Celia Blank MDAttending ProviderActiveStart: January 01, 2025 End: January 01, 2025 Visit Care Team Team Status: Inactive Member Role/Relationship Status Dominick Blank MD Primary Care Provider Active Start: January 01, 2025 End: January 01, 2025Matthew Root ProviderActiveStart: January 01, 2025 End: January 01, 2025 Visit Care Team Team Status: Active Member Role/Relationship Status Dates Celia Blank MD Primary Care Provider Active Start: February 03, 2025 Jose L Meza Matthew ProviderActiveStart: February 03, 2025 Patient Care Team Team Status: Inactive Member Role/Relationship Status Dates Celia Blank MD Primary Care Provider Active Start: February 12, 2025 End: February 12, 2025Matthew Root ProviderActiveStart: February 12, 2025 End: February 12, 2025 Chief Complaint and Reason for Visit Chief Complaint Admit Date hospital follow up November 15, 2024 2:2 7pm Virtual, High Fever, Headache November 11:24am R10.9, R50.9 December 02, 2024 1: 30pm difficulty swallowing, tongue raw December 06, 2024 11:34am Amb Documentation December 17, 2024 10:26am [facility] follow up December 23, 2024 2:26pm n30.01 January 01, 2025 9:00am UA January 01, 2025 9:57am Surgical Clearance (Dr. Dennis) February 12, 2025 10:40am Reason for Visit Admit Date Bladder mass [...] (urinary tract infection) January 01, 2025 9:57am Allergies, Adverse Reactions, Alerts Allergen Type Severity Reaction Last Updated Verified Status alendronate sodium Allergy Unknown Hives Novemb 2024 10:45am Yes Active clarithromycin Allergy Unknown Hives February 122024 10:45am Yes Active levofloxacin Allergy Unknown Hives February 10:45am Yes Active oxycodone Allergy Unknown Hives February 12, 2025 10:45am Yes Active Sulfa (Sulfonamide Antibiotics) Allergy Unknown Comment:as a young child, pt. cannot recall reaction February 12, 2025 10:45am Yes Active Biaxin XL *MACROLIDES* Allergy Unknown Hives Ap ril 2023 3:27pm No Active Social History Smoking Status Status Start Date End Date Date of Observa tion Smokes tobacco daily (finding) November 04, 2024 8:42am Observation Status Observation Response Date of Response Legal Sex Female (finding) [facility] Family History Relationship Condition Age at Onset Recorded Date/T tyron mother Diabetes mellitus Unknown HypertensionUnknownfatherMalignant neoplasmUnknown Problems Active Problems Problem Diagnosis/Recorded Date Onset Date Stat us Lumbar radiculopathy, chronic July 31, 2023 9:29am Unknown Active UTI (urinary tract infection) December 11, 2024 1:10 pm Unknown Active Right thyroid nodule March 29, 2024 9:21am Unknow n Active Encounter for immunization March 11, 2024 3:57pm U nknown Active intermediate (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 of i nhaled steroids April 15, 2024 4:04pm Unknown Active Cigarette nicotine dependenc e with nicotine-induced disorder March 11, 2024 3:56pm Unknown Active Moderate persistent asthma, uncomplicated March 11, 2024 3:42pm Unknown Active Menopause February 08, 2024 1:25pm Unknown Ac tive Primary osteoarthritis of both knees January 23 2:08pm Unknown Active Rib fracture February 18, 2024 6:40am Unknown A ctive Thrush December 11, 2024 1:10pm Unknown A ctive Vaginal yeast infection December 23, 2024 2:56pm Un known Active Joint pain October 13, 2023 8:37am Unknown Active Hematuria November 04, 2024 12:53pm Unknown Acti ve Bladder cancer December 02, 2024 11:28am Unknown Active Pain in posterior right lower extremity March 29, 2024 9:31am Unknown Active Gastroenteritis October 08, 2024 11:57am Unknown Ac tive Headache October 13, 2023 8:37am Unknown Active Tick bite October 13, 2023 8:37am Unknown Active Lumbar pain May 26, 2023 12:09pm Unknown Active Left flank pain December 02, 2024 11:28am Unknown Active Bilateral knee pain January 10, 2024 8:31am Unknown Active Chronic obstructive pulmonar y disease, unspecified July 28, 2023 3:30pm Unknown Active Encounter for screening for lung cancer March 11, 2024 4:02pm Unknown Active COPD exacerbation January 10, 2024 8:36am Unknown Active Bladder mass November 04, 2024 12:54pm Unknown Acti ve Febrile illness December 02, 2024 11:28am Unknown Active Medications Medication Status Dose Units Route Directions Qty Days Refills S tart Date Stop Date End Date Reason(s) Instructions Adherence Hydrocodone-Acetaminophen 5- 325 mg tablet Discontinued 1 TAB PO Three times daily 90 30 0 June 26, 2023 July 27, 2023 3:12pmLumbar back pain Low back pain, unspecifiedHydrocodone-Acetaminophen 5-325 mg tabletDiscontinued1 TABPOThree times nrtxu2303Tazyi pril 2023 9:38amLumbar back pain Low back pain, unspecifiedDuloxetine (Cymbalta) 30 mg capsule,delayed release(DR/EC)Noxqstguxekr93XFHMGedqt456Wpaxk 2023 11:00pmMay 2023 11:31amDuloxetine (Cymbalta) 30 mg capsule,delayed release(DR/EC)Fimuzkukvkao53 MTOMWxeej875Dqx 2023 11:31amJuly 2023 2:48pmTizanidine 4 mg tablet Cunpekrxnukj0OZJPJosnu times wlbac900Myg2023 2:10pmJuly 2023 11:48amHydrocodone-Acetaminophen 5-325 mg zegaeiVrrthprwxeyj3OEJWEYfrbk times iysir69360Iif 2023June 2023 7:37amLumbar back pain Low back pain, unspecifiedAlbuterol Sulfate 90 mcg/actuation HFA aerosol inhaler Suoibhwdqyqu9UPJELIXTLKXHWTSdyyi 4 hours as needed for bronchospasm8.52May 2023 9:39amJuly 2023 8:22amHydrocodone-Acetaminophen 5-325 mg tablet Aselovdlptnn0RDPPHGbnku times psqii63586Wqkw 2023July 2023 9:28am Lumbar back pain Low back pain, unspecifiedTizanidine 4 mg mxxutlZgdahrpailxn4PTMDDwxra times lesib404Ipjm 2023 11:48amAugust 2023 7:43amHydrocodone-Acetaminophen 5-325 mg fgtepoDlyarnfuryyw3TOENPEnkah times auhxd73693Ervw ugust 2023 7:43amLumbar back pain Low back pain, unspecifiedTizanidine 4 mg dwylhqZorabdeffdyq5PGMZPxtiw times vtqfl338Lpapdh 2023 7:43amSeptember 2023 12:40pmHydrocodone- Acetaminophen 5-325 mg qisjdrIyftipaajkge2CSHPFRircv times fdblx41593Yhmqzo 2023September 2023 12:40pmLumbar back pain Low back pain, unspecifiedFluticasone Propionate 44 mcg/actuation HFA aerosol chcivwwFizevbmxrajb5GCLSFRNWGDMSZEPikaa daily10.62August 2023 1:47pm January 24, 2024 7:18amadminister with spacerAlbuterol Sulfate 90 mcg/actuation HFA aerosol jsfllpmUdlvrwtddqhl6LLLHBUCBVXNZIWSykqs 4 hours as needed for bronchospasm8.52August 2023 1:47pmOctober 2023 7:18am Duloxetine 60 mg capsule,delayed release(DR/EC)Exchbvhptuox82VHCLYzikc452Jpvfng 2023 1:48pmOctober 2023 2:24pmTizanidine 4 mg prrluuRfoixbwmevwl3GIEI Three times hlqya188Yiwnbcviu 2023 12:40pmOctober 2023 7:18am Hydrocodone-Acetaminophen 5-325 mg uyyazbPcihdfvbucdd3NJITOEutve times mfgqj6896 0September 2023October 2023 7:18amLumbar back pain Low back pain, unspecifiedAlbuterol Sulfate 2.5 mg /3 mL (0.083 %) solution for nebulizationDiscontinued0.ROUTE.HUELONC813Yjjihni 2023 9:48am[facility] 4:52pmINHALE 1 vial via NEBULIZER EVERY 4 TO 6 HOURS NEEDEDHydrocodone- Acetaminophen 5-325 mg rjutjhKcffwslmovim0JUWZZRzrad times snxxq85841Joedqzk 2023Novdign[facility] 2023 10:24amLumbar back pain Low back pain, unspecifiedFluticasone Propionate 44 mcg/actuation HFA aerosol mlokzalWylujpqkqfjv1UDGHUYEGLULREQYrmer daily10.62[facility] 2023 7:18am February 08, 2024 1:20pmadminister with spacerAlbuterol Sulfate 90 mcg/actuation HFA aerosol bpdjcbyGrghuipzkbec7ZNHCTDMAVUZARVQzpdl 4 hours as needed for bronchospasm8.52[facility] 2023 7:18amDeprescott [facility] 2023 9:00am Tizanidine 4 mg pvmpyqVfvripyogwct2VFNSCyvlk times iisna056Doigglt 2023 7:18am[facility] 2023 10:24amTizanidine 4 mg iwftegGlnoqpidssps8ZRUPGkgap times xyrwc872Cwejgddk 2023 10:23amDecebarrow [facility] institute 2023 8:40amHydrocodone- Acetaminophen 5-325 mg zpbbajIatqkgufxrch4SNDYFQbkvp times crdjg87999Wwikyrox ecebarrow [facility] institute 2023 8:40amLumbar back pain Low back pain, unspecifiedTiotropium [place] (Spiriva Respimat) 1.25 mcg/actuation irdvYcnohkhhunbx9COAMRJASOYNURMDxado pbbfoug81Dloamxmj 29th, 2024 7:52amNovebarrow neurological institute 2023 9:51amTiotropium [place] (Spiriva Respimat) 1.25 mcg/actuation pievGrrjkayigmmz9KJPNNAEIUFOOYIJoyzf qwnggwg32Licjlwap 2023 9:50amDecemb2023 3:50pmAlbuterol Sulfate 90 mcg/actuation HFA aerosol xgybcdeEpgjcd4CBCLHZQAXBQHJTBvzhk 4 hours as needed for bronchospasm8.2023 9:00amComplies with drug therapyAlbuterol Sulfate 2.5 mg /3 mL (0.083 %) solution for nebulizationDiscontinued0.ROUTE.FPDRCGB781Cxhehozp 2023 4:52pmJanuary 2024 3:17pmINHALE 1 vial via NEBULIZER EVERY 4 TO 6 HOURS NEEDEDTizanidine 4 mg srgwyvRnpexbiuuail6XRLWDzluh times eyzul078Wqpyqbzs 2023 8:40amJanuary 2024 2:01pmHydrocodone-Acetaminophen 5-325 mg tablet Royewevoswik6NAFNXEexhn times tnyny66255Vpqlglol 2023January 2024 2:01pmLumbar back pain Low back pain, unspecifiedTizanidine 4 mg ivgjirObzknxvhdpos8UIEQLqdzg times mphkc073Nfopxiy 2024 2:00pmFebruary 2024 12:55pmHydrocodone- Acetaminophen 5-325 mg thtzkiNjenrttprfkz7NPOAHAilqt times npgya55916Ijluukk 2024January 2024 2:01pmLumbar back pain Low back pain, unspecifiedHydrocodone-Acetaminophen 5-325 mg tabletDiscontinued1 TABPOThree times ccily17855Mfpulyt 2024February 2024 12:55pmLumbar back pain Low back pain, unspecifiedAlbuterol Sulfate 2.5 mg /3 mL (0.083 %) solution for nebulizationDiscontinued2.5MGINHALATIONFour times daily as needed for shortness of breath or jnggvcmn140Bflqbfnt 2024 11:38amMarch 2024 1:03pm Tizanidine 4 mg excnwhSjfhukvjzano7JEOWCaehn times iltry232Spuexumf 2024 12:55pmMarch 2024 12:48pmHydrocodone-Acetaminophen 5-325 mg tablet Mxvvevpqbgzf1DRUXQVyolg times dlixc60059Wppxcnmf 2024March 2024 12:48pmLumbar back pain Low back pain, unspecifiedAlbuterol Sulfate 2.5 mg /3 mL (0.083 %) solution for nebulizationDiscontinued2.5MGINHALATIONFour times daily as needed for shortness of breath or apofrslb060Slfbi 2024 1:02pmMarch 2024 7:50am Hydrocodone-Acetaminophen 5-325 mg hbujgyNrpwhasdszgn1CHCUVPwufy times sxeuf8423 0March pril 2024 7:29amLumbar back pain Low back pain, unspecifiedTizanidine 4 mg bojmxnHmxatpoapzye6YOSJTmuqp times pzohc141Bupmw 2024 12:48pmApril 2024 7:29amAlbuterol Sulfate 2.5 mg /3 mL (0.083 %) solution for nebulizationDiscontinued2.5MGINHALATIONFour times daily as needed for shortness of breath or kitwzuxw7043Uhjry 2024 2:15pmMay 2024 11:12zo1sv x 120 doses/monthTizanidine 4 mg yrqjunOyreqlgxxhpt9HHZJ Three times uimng819Rjchq 2024 7:28amMay 2024 11:47amHydrocodone- Acetaminophen 5-325 mg unfnosYztnqlljvine3RFRKKGjfgs times fsiaa74717Nuwjh 2024Ma2024 11:47amLumbar back pain Low back pain, unspecifiedTizanidine 4 mg tlxrgwUzphydctttyq5FDTWHrvwi times skjqr441Icc 2024 11:47amJune 2024 8:27amHydrocodone-Acetaminophen 5- 325 mg jjuyraZpnvilsakqpe3QKJBLZfloa times xghml28418Oit 2024June 2024 8:27amLumbar back pain Low back pain, unspecifiedAlbuterol Sulfate 2.5 mg /3 mL (0.083 %) solution for nebulizationActive2.5MGINHALATIONFour times daily as needed for shortness of breath or iufnxtoq0561Efl 2024 11:89kl5uf x 120 doses/monthComplies with drug therapyHydrocodone-Acetaminophen 5-325 mg czlypvGivfpmtezjqh9QGCABFrvjb times rwqkx87212Ffdb 2024July 2024 8:40amLumbar back pain Low back pain, unspecifiedTizanidine 4 mg tmhjgzMbrkyexnufrj0RIVZFluaz times qykko877Apib 2024 8:26amJuly 2024 8:40amAzithromycin 500 mg tablet Tmfjtzhitcfx644DPFGUuxhi672Rvta 2024 11:00pmAugust 2024 11:29am Tizanidine 4 mg ihfgycQoesadzvcmrk4ULRQGdqsy times ipumq434Iuil 2024 8:40am November 15, 2024 2:06pmHydrocodone-Acetaminophen 5-325 mg zcaqwnNvnblecsmdwn2XOS POThree times phoez93526Mfhc ugust 2024 2:06pmLumbar back pain Low back pain, unspecifiedTizanidine 4 mg cyijvjNhngbcalbmzm1CJQTBhfgy times zarkc299Zbettyyvc 2024 12:13pmOctober 2024 7:27amHydrocodone- Acetaminophen 5-325 mg whhjbeYqvazh8KZBDJKusif times iqgfd03390Dqnamle 2024Lumbar back pain Low back pain, unspecifiedComplies with drug therapyTizanidine 4 mg tabletActive 4MGPOThree times hwldt220Ydmkldi 2024 7:27amComplies with drug therapy Doxycycline Hyclate 100 mg khgmnkHxjjbudabpdv213JIUUCxgny jttuc38912Ytay 2023 11:00pmJuly 2023 8:02amTick bite Arthralgia Headache Pain in unspecified joint Headache, unspecifiedDuloxetine (Cymbalta) 30 mg capsule,delayed release(DR/EC) Svbelwehclso97COZUZzijh619Kbmz 2023 2:47pmJuly 2023 8:18amFluticasone Propionate 44 mcg/actuation HFA aerosol llthyasYnyyejlyznql1VZGHUMKYFYOFGGDabht dailyJuly 2023 11:00pmAugust 2023 1:48pmadminister with spacer Methylprednisolone 4 mg tablets,dose mgchGljsnboigrdp1OSrof package ohcdzwoqdl20 0July 2023 11:00pmAugust 2023 1:48pmPO PER PKG DIR for 6 days Duloxetine 60 mg capsule,delayed release(DR/EC)Nwbkawyujgbt65JMNEXteye434Upgm 2023 8:18amAugu2023 1:48pmAlbuterol Sulfate 90 mcg/actuation HFA aerosol lkvaqboYffzidmvrgnt6XNGGBXRBJCHDMZPevhs 4 hours as needed for bronchospasm8.52July 2023 8:22amAugu2023 1:48pmPrednisone 20 mg mgkhufTvkazkdqdbdh59OKFAIsqga xfrko939Qtuggoria2023 11:00pmOctober 2023 12:53pmAlbuterol Sulfate 2.5 mg /3 mL (0.083 %) solution for nebulization Discontinued2.5MGINHALATIONEVERY 4-6 HOURS as needed for ddssqtpazxmj664 January 08, 2024 11:00pmOctober 2023 9:48amCefdinir 300 mg capsule Hwqkhrvvjqhh414JIJRQyzdr ovtad901Crunigxmi 30th, 2024 11:00pmOctober 2023 12:53pmTiotropium [place] (Spiriva Respimat) 1.25 mcg/actuation mistDiscontinued 2PUFFINHALATIONEvery cublxcs51Ychunne 30th, 2024 11:00pmNovember 2023 7:52amOmeprazole 20 mg capsule,delayed release(DR/EC)Hsjthb72IAORZrvpiLdglgvli 2023 12:00amComplies with drug dmksdbfIfwyftymxdt-Bslrndxio-Rjxhsudz (Trelegy Ellipta) 200-62.5-25 mcg blister with zykatuRazhgbzsonyj8XLNURSNWBJRGJ Ddvdi218382Dztsxeyg 2023 12:00amDecember 2023 9:38amModerate persistent asthma without complication Moderate persistent asthma, uncomplicatedRinse after useBupropion Hcl 150 mg tablet extended release 24 vbFakvuskilnst584WNPTTilrz18100Smgbyqkp 2023 12:00amJanuary 2024 3:39pmCigarette nicotine dependence with nicotine- induced disorder Nicotine dependence, cigarettes, with unspecified nicotine-induced disorders Rsvpref3 Antigen-As01e (Pf) (Arexvy (Pf)) 120 mcg/0.5 mL suspension for reconstitutionDiscontinued0.6VCZAKcho37Rycgoosc 2023 12:00amDecemb2023 9:04amEncounter for immunization Encounter for immunizationPneumoc 20-Agnes Conj-Dip Cr(Pf) (Prevnar 20 (Pf)) 0.5 mL syringeDiscontinued0.9NBYQLqog5.50December 2023 12:00amDecemb2023 8:52amEncounter for immunization Encounter for immunizationDiphth,Pertus(Acell),Tetanus (Boostrix Tdap) 2.5-8-5 Lf-mcg-Lf/0.5mL syringeDiscontinued0.3BGNXHuqb9.50December 2023 12:00am March 29, 2024 8:52amEncounter for immunization Encounter for immunizationAlbuterol Sulfate 2.5 mg /3 mL (0.083 %) solution for nebulizationDiscontinued2.5MGINHALATIONFour times daily as needed for shortness of breath or wheezingJanuary 2024 3:16pmFebruary 2024 11:39am Bupropion Hcl 300 mg tablet extended release 24 zfOiinmw591QOQQHgqyj97180Innwajb 2024 12:00amCigarette nicotine dependence with nicotine-induced disorder Nicotine dependence, cigarettes, with unspecified nicotine-induced disorders Complies with drug wqbzhgnQncjxpwzvnu-Qrpwzuarp-Fmroevug (Trelegy Ellipta) 200-62.5-25 mcg blister with langehTwmjdr1RDWALZELMEIPVOwqsi2404Kidmmve 2024 3:40pmModerate persistent asthma without complication Moderate persistent asthma, uncomplicatedRinse after useComplies with drug therapyHydrocodone-Acetaminophen 5-325 mg qehqwbTwlmohmyqpnn2FYNVQZoyso times idpwx2Fjiwfdwi 2023 12:00amFebruary 2023 12:12pmTizanidine 4 mg wduuyyClygwtectwzy7GRJDZdtpo times dailyFebruary 2023 12:00amFebruary 2023 12:12pmHydrocodone-Acetaminophen 5-325 mg qdnvfwQfkpaiuufzff4ZYJLL Three times qeljx52238Mdzqtgju 2023March 2023 11:47amLumbar back pain Low back pain, unspecifiedTizanidine 4 mg oqixvxWsfezekoiwon3KTIHDdxug times mduxa055Urcfobwi 2023 12:10pmMay 2023 2:10pmAlbuterol Sulfate 90 mcg/actuation HFA aerosol bmvzauoSdegvnmybgeq1PCPEYLBNMVGISGLyyrq 4 hoursApril 2023 11:00pmMay 2023 9:39amFreeTextSi puff Inhalation every 4 hrs prn; Note: Source Status: Refill; Refills: 2; Provider: Abhay Ward Amitriptyline 50 mg eygnygVfycgwjwxdag52BELFCxzen at bedtimeApril 2023 11:00pmOctober 2023 12:58pmFreeTextSi tablet at bedtime Orally Once a day; Note: Source Status: Start; Refills: 3; Qty: 90Tablet; Provider: Abhay Yang EFluticasonfadi Propion-Salmeterol 250-50 mcg/dose blister with device Ukgmmcgrbfcu5OMJDHQSBGSYEKAmhwp dailyApril 2023 11:00pmJuly 2023 8:03amFreeTextSi puff Inhalation Twice a day; Note: Source Status: Start; Refills: 3; Provider: Samara EPregabalin (Lyrica) 50 mg capsuleDiscontinued 50MGPOTwice zyzlt50104Vttzj 2023 11:00pmApril 2023 3:27pmChronic lumbar radiculopathy Radiculopathy, lumbar regionHydrocodone-Acetaminophen 5-325 mg tablet Ibasejesqwbj0SSPJIKmwio times zogne56394Owmdo 2023May 2023 2:16pm Lumbar back pain Low back pain, unspecifiedAmitriptyline 50 mg dzxvptAlxfpgqujywm84WFQKPxakn at koahapm845Happerht 20th, 2024 9:36amNovember 2024 10:45amFreeTextSi tablet at bedtime Orally Once a day; Note: Source Status: Start; Refills: 3; Qty: 90Tablet; Provider: Abhay Yang JXlytvmyylra-Xxovcxviu-Wnuxcmsy (Trelegy Ellipta) 200-62.5-25 mcg blister with fpkjmuZpxvlihxyjpr4XGLRLIHHMUBOUViwvc16253 March 29, 2024 9:38amJanuary 2024 3:41pmModerate persistent asthma without complication Moderate persistent asthma, uncomplicatedRinse after useAlbuterol Sulfate 2.5 mg /3 mL (0.083 %) solution for nebulizationDiscontinued2.5MGINHALATIONFour times daily as needed for shortness of breath or scarssti909Vpewt 2024 7:47am July 15, 2024 2:33xn8fr x 120 doses/monthOndansetron 4 mg tablet,otueznvagnqvmdPszagzmspuil6UEQNO3R as needed for nausea and pahcizkg237 September 26, 2024 11:00pmAugust 2024 1:29pmHydrocodone-Acetaminophen 5-325 mg bldrmoPjwprdmpnqsj7DEACCPudmd times jytmy86592Pfxpbk 2024September 2024 1:50pmLumbar back pain Low back pain, unspecifiedTizanidine 4 mg vnctafCvfmiajaauvk5TVFFJglhc times coqdf829Xgajlo 8th, 2025 1:52pmSeptember 2024 12:13pmCefdinir 300 mg wxunrdfCzrqcgiuhnlh589TOPHRipvb guzwv685Fdebdf 2024 11:29amNovember 2024 10:46amOndansetron 4 mg tablet,tgmzlunovvoxbaXjnwzcxdexjd7YRERW6A as needed for nausea and putlbzgf534Kwygyg 25th, 2025 1:29pmNovember 2024 11:05am Nystatin 100,000 unit/mL aynjxgcwllKzudnkiuyarf5NTJFYijg times uoqej096Oyujgx 2024 11:00pmNov2024 10:46amswish and swallowFluconazole 150 mg rljrqzPmhxmpxrzmky958TRKFP4G10Kvczlelev 2024 11:00pmNov2024 10:46amHydrocodone-Acetaminophen 5-325 mg jicfjqMnuohtqecinc6YEXRQZhdsy times jotfp82697Aqhuktryb 2024October 2024 7:30amLumbar back pain Low back pain, unspecified Immunizations Immunization Event Date Not Given Reason Dose Number Marketing Assistant Lot Number Reason(s) Given Vaccine Information Statement (VIS) Detail Administration Location COVID-19 mRNA, [employer] ([employer]) July 21 COVID-19 mRNA, [facility])irnaty ([employer])August 11OVID-19 mRNA, [facility] ([employer]) March 29Tap, unspecifiedJune 2018Tetanus, Diphtheria adult, 5 Lf pres free absOctober 2013 Procedures Procedure Date Performed Status Urine Culture January 01, 2025 completed Urine Culture December 02, 2024 completed Relevant Diagnostic Tests and/or Laboratory Data Laboratory Results Test Collection Date/Time Result Date/Time Result Interpretation Reference Range Result Comment Performing Site Urine Culture Reflexed December 11, 2024 5:16p m YES-FRMCLactic Acid LevelSept2024 5:40pmSept2024 5:40pm1.2 mmol/L0.4-2.0Anion GapSept2024 5:40pmSeptember 2024 5:40pm14.2 Basophils # (Auto)December 11, 2024 5:40pmSept2024 5:40pm0.1 10 3/uL0.0-0.1Total Creatine KinaseSept2024 3:52amSeptember 2024 3:52am30 U/H69-092Skzw Neutrophils # (Manual)December 12, 2024 3:52amSeptember 2024 3:52am0.0 10 3/uL0.0-0.3HematocritSeptember 2024 3:52am28.9 % Below low .0-48.0Anion GapSept2024 3:52amSept2024 3:52am14.0SARS-CoV-2 Ag (CV2AG)December 12, 2024 9:44amSept2024 9:44amNEGATIVENEGATIVEThis test has not been FDA cleared or approved, but has beenauthorized by the FDA under an Emergency Use Authorization(EUA) for use by authorized laboratories certified [facility] that meet the requirements to perform moderate or highcomplexity testing. This test has been authorized only forthe detection of proteins from SARS-CoV-2, not for any otherviruses or pathogens. The emergency use of this test isauthorized for the duration of the declaration thatcircumstances exist justifying the authorization ofemergency use of in vitro diagnostic tests for detectionand/or diagnosis of Covid-19 under s ection 564(b)(1) of theAct, 21 U.S.C. 360bbb-3(b)(1), unless the declaration isterminated or authorization is revoked sooner.Magnesium LevelSept2024 3:50amSept2024 3:50am1.8 mg/dL1.8-2.4Anion GapS2024 3:50amSept2024 3:50am11.1HematocritSept2024 3:50am December 13, 2024 3:50am28.2 %Below low ahggoz83.0-48.0Urine Bilirubin December 13, 2024 9:49amSept2024 9:49amNEGATIVENEGATIVEVitamin B12 LevelSept2024 11:33amSept2024 11:04yf248 pg/[id number] Performed at: [facility] [id number] Director: Jeovany Bazan PhD, Phone: [phone] LevelSept2024 5:03amSept2024 5:03am1.7 mg/dLBelow low normal1.8-2.4Anion Gap December 14, 2024 5:03amSept2024 5:03am10.5HematocritSept2024 5:03amSept2024 5:03am29.3 %Below low .0-48.0Anion Gap December 15, 2024 4:54amSeptember 2024 4:54am12.0Basophils # (Auto) December 15, 2024 4:54amSeptember 2024 4:54am0.0 10 3/uL0.0-0.1Urine ColorSept2024 9:02amSeptember 2024 9:04amyellowBasophils # (Auto)February 03, 2025 3:38pmOctober 2024 3:38pm0.0 10 3/uL0.0-0.1 Activated Partial Thromboplast TimeOct2024 3:38pmOctober 2024 3:38pm27.5 sec22.3-36.2Prothromb Time International RatioOct2024 3:38pmOctober 2024 3:38pm1.00DESIRED INR:2.0-3.0 CONDITIONS NOT LISTED BELOW2.5-3.5 FOR PROSTHETIC HEART VALVE REPLACEMENT2.5-3.5 RECURRENT THROMBOSIS Anion GapOctober 2024 3:38pmOctober 2024 3:38pm13.4Urine Other Casts December 11, 2024 5:16pmNONE SEEN #/LPFNONE SEENAlbumin/Globulin Ratio December 11, 2024 5:40pmSept2024 5:40pm0.6Basophils (%) (Auto) December 11, 2024 5:40pmSept2024 5:40pm0.3 %0.2-2.0Band Neutrophils %December 12, 2024 3:52amSept2024 3:52am0.0 %0-5HemoglobinSept2024 3:52am9.3 g/dLBelow low .0-16.0BUN/Creatinine RatioSept2024 3:52amSeptember 2024 3:52am14.5BUN/Creatinine RatioSeptember 2024 3:50amSeptember 2024 3:50am12.3HemoglobinSeptember 2024 3:50am December 13, 2024 3:50am8.8 g/dLBelow low pocklf70.0-16.0Urine Occult Blood December 13, 2024 9:49amSept2024 9:49amMODERATEAbnormal (applies to non-numeric results)NEGATIVEBUN/Creatinine RatioSeptember 2024 5:03am December 14, 2024 5:03am11.3HemoglobinSeptember 2024 5:03amSeptember 2024 5:03am9.5 g/dLBelow low sveurm39.0-16.0BUN/Creatinine RatioSeptember 2024 4:54amSeptember 2024 4:54am8.5Basophils (%) (Auto)December 15, 2024 4:54amSeptember 2024 4:54am0.4 %0.2-2.0Urine AppearanceSept2024 9:02amSeptember 2024 9:04amclearBasophils (%) (Auto)February 03, 2025 3:38pmOctober 2024 3:38pm0.3 %0.2-2.0Prothrombin TimeOct2024 3:38pmOctober 2024 3:38pm10.6 sec9.0-11.6BUN/Creatinine RatioOctober 2024 3:38pmOctober 2024 3:38pm27.7Urine Other CrystalsSept2024 5:16pmNone Seen #/HPFNone SeenAlbuminSept2024 5:40pmSeptember 2024 5:40pm2.5 g/dLBelow low normal3.4-5.0Eosinophils # (Auto)December 11, 2024 5:40pmSeptember 2024 5:40pm0.1 10 3/uL0.0-0.7Absolute Basophils (Manual)December 12, 2024 3:52amSeptember 2024 3:52am0.15 10 3/uLAbove high normal0.00-0.10Mean Corpuscular HemoglobinSeptember 2024 3:52am28.2 pg 26.7-34.0Blood Urea NitrogenSeptember 2024 3:52amSeptember 2024 3:52am 9.0 mg/dL7.0-18.0Blood Urea NitrogenSeptember 2024 3:50amSeptember 2024 3:50am10.0 mg/dL7.0-18.0Mean Corpuscular HemoglobinSeptember 2024 3:50amSeptember 2024 3:50am27.6 pg26.7-34.0Urine AppearanceSeptember 2024 9:49amSeptember 2024 9:49amCLEARCLEARBlood Urea NitrogenSeptember 2024 5:03amSeptember 2024 5:03am8.0 mg/dL7.0-18.0Mean Corpuscular HemoglobinSeptember 2024 5:03amSeptember 2024 5:03am28.3 pg26.7-34.0 Blood Urea NitrogenSeptember 2024 4:54amSeptember 2024 4:54am7.0 mg/dL 7.0-18.0Eosinophils # (Auto)December 15, 2024 4:54amSeptember 2024 4:54am 0.3 10 3/uL0.0-0.7Urine Specific GravitySeptember 2024 9:02amSeptember 2024 9:04am1.000Eosinophils # (Auto)February 03, 2025 3:38pmOctober 2024 3:38pm0.1 10 3/uL0.0-0.7Blood Urea NitrogenOctober 2024 3:38pmOctober 2024 3:38pm28.0 mg/dLAbove high normal7.0-18.0Urine BacteriaSept2024 5:16pmSMALL #/HPFAbnormal (applies to non-numeric results)NONE SEENAlkaline PhosphataseSept2024 5:40pmSept2024 5:40pm90 U/L46-116 Eosinophils (%) (Auto)December 11, 2024 5:40pmSept2024 5:40pm0.3 % Below low normal0.9-7.0Basophils %December 12, 2024 3:52amSeptember 2024 3:52am1.0 %0.2-2.0Mean Corpuscular Hemoglobin ConcentSept2024 3:52am 32.2 g/dL29.9-35.2Calcium LevelSept2024 3:52amSeptember 2024 3:52am8.3 mg/dLBelow low normal8.5-10.1Calcium LevelSept2024 3:50am December 13, 2024 3:50am8.5 mg/dL8.5-10.1Mean Corpuscular Hemoglobin Concent December 13, 2024 3:50amSeptember 2024 3:50am31.2 g/dL29.9-35.2Urine ColorSept2024 9:49amSeptember 2024 9:49amYELLOWYELLOWCalcium LevelSept2024 5:03amSept2024 5:03am8.8 mg/dL8.5-10.1Mean Corpuscular Hemoglobin ConcentSept2024 5:03amSeptember 2024 5:03am32.4 g/dL29.9-35.2Calcium LevelSeptember 2024 4:54amSept2024 4:54am9.3 mg/dL8.5-10.1Eosinophils (%) (Auto)December 15, 2024 4:54am December 15, 2024 4:54am2.4 %0.9-7.0Urine pHSept2024 9:02am January 01, 2025 9:90xz1Ucrkxoeebjj (%) (Auto)February 03, 2025 3:38pm February 03, 2025 3:38pm1.2 %0.9-7.0Calcium LevelOctober 2024 3:38pm February 03, 2025 3:38pm8.8 mg/dL8.5-10.1Urine BilirubinSept2024 5:16pmNEGATIVENEGATIVEAlanine Aminotransferase (ALT/SGPT)December 11, 2024 5:40pmSept2024 5:40pm15 U/L08-61ZwtwekssqaGryvqriff 3rd, 2025 5:40pm December 11, 2024 5:40pm31.2 %Below low pkoxdc96.0-48.0Eosinophils # (Manual) December 12, 2024 3:52amSeptember 2024 3:52am0.00 10 3/uL0.00-0.70Mean Corpuscular VolumeSeptember 2024 3:52am87.6 fL81.0-99.0Chloride Level December 12, 2024 3:52amSeptember 2024 3:09cm751 mmol/U84-038Ithzgzxg LevelSeptember 2024 3:50amSeptember 2024 3:98ra436 mmol/LAbove high ghpcix57-591Xwwz Corpuscular VolumeSeptember 2024 3:50amSeptember 2024 3:50am88.4 fL81.0-99.0Urine Glucose (UA)December 13, 2024 9:49amSeptember 2024 9:49amNEGATIVE mg/dLNEGATIVEChloride LevelSeptember 2024 5:03am December 14, 2024 5:57hy361 mmol/LAbove high -565Tluw Corpuscular VolumeSeptember 2024 5:03amSeptember 2024 5:03am87.2 fL81.0-99.0 Chloride LevelSeptember 2024 4:54amSeptember 2024 4:23uu235 mmol/L 98-107HematocritSeptember 2024 4:54amSeptember 2024 4:54am31.7 %Below low sndtev10.0-48.0Urine Leukocyte EsteraseSeptember 2024 9:02amSeptember 2024 9:04amnegativeHematocritOctober 2024 3:38pmOctober 2024 3:38pm37.5 %36.0-48.0Chloride LevelOctober 2024 3:38pmOctober 2024 3:82ve507 mmol/L70-989Dljay Occult BloodSeptember 2024 5:16pmLARGEAbnormal (applies to non-numeric results)NEGATIVEAspartate Amino Transf (AST/SGOT) December 11, 2024 5:40pmSeptember 2024 5:40pm8 U/LBelow low uznxdv01-91 HemoglobinSeptember 2024 5:40pmSeptember 2024 5:40pm10.1 g/dLBelow low .0-16.0Eosinophils %December 12, 2024 3:52amSeptember 2024 3:52am 0.0 %Below low normal0.9-7.0Mean Platelet VolumeSeptember 2024 3:52am9.4 fL Below low normal9.5-13.5Carbon Dioxide LevelSeptember 2024 3:52amSeptember 2024 3:52am27.6 mmol/L21.0-32.0Carbon Dioxide LevelSeptember 2024 3:50amSeptember 2024 3:50am27.6 mmol/L21.0-32.0Mean Platelet Volume December 13, 2024 3:50amSeptember 2024 3:50am9.1 fLBelow low normal 9.5-13.5Urine KetonesSept2024 9:49amSeptember 2024 9:49amTRACE mg/dLAbnormal (applies to non-numeric results)NEGATIVECarbon Dioxide Level December 14, 2024 5:03amSeptember 2024 5:03am31.5 mmol/L21.0-32.0Mean Platelet VolumeSeptember 2024 5:03amSeptember 2024 5:03am9.1 fLBelow low normal9.5-13.5Carbon Dioxide LevelSeptember 2024 4:54amSeptember 2024 4:54am31.0 mmol/L21.0-32.0HemoglobinSeptember 2024 4:54amSeptember 2024 4:54am10.1 g/dLBelow low suvszf27.0-16.0Urine NitriteSeptember 2024 9:02amSeptember 2024 9:04amNegativeHemoglobinOctober 2024 3:38pmOctober 2024 3:38pm11.9 g/dLBelow low uvypkq02.0-16.0Carbon Dioxide LevelOctober 2024 3:38pmOctober 2024 3:38pm27.5 mmol/L21.0-32.0Urine AppearanceSeptember 2024 5:16pmCLEARCLEARBUN/Creatinine RatioSeptember 2024 5:40pmSeptember 2024 5:40pm13.5Immature Granulocyte # (Auto)December 11, 2024 5:40pmSeptember 2024 5:40pm0.08 10 3/uLAbove high normal0.00-0.03 Giant PlateletsSeptember 2024 3:52amSeptember 2024 3:52am1+Platelet CountSeptember 2024 3:94tb227 10 3/uLAbove high hplbwi202-338Qdfdsujjjz December 12, 2024 3:52amSeptember 2024 3:52am0.62 mg/dL0.55-1.02 CreatinineSeptember 2024 3:50amSeptember 2024 3:50am0.81 mg/dL 0.55-1.02Platelet CountSeptember 2024 3:50amSeptember 2024 3:39zq769 10 3/pI757-855Fhyet Leukocyte EsteraseSeptember 2024 9:49amSeptember 2024 9:49amTRACEAbnormal (applies to non-numeric results)NEGATIVECreatinine December 14, 2024 5:03amSeptember 2024 5:03am0.71 mg/dL0.55-1.02Platelet CountSeptember 2024 5:03amSeptember 2024 5:02uw497 10 3/sI603-058 CreatinineSeptember 2024 4:54amSeptember 2024 4:54am0.82 mg/dL 0.55-1.02Immature Granulocyte # (Auto)December 15, 2024 4:54amSeptember 2024 4:54am0.04 10 3/uLAbove high normal0.00-0.03Urine ProteinSeptember 2024 9:02amSeptember 2024 9:04amnegativeImmature Granulocyte # (Auto) February 03, 2025 3:38pmOctober 2024 3:38pm0.01 10 3/uL0.00-0.03 CreatinineOctober 2024 3:38pmOctober 2024 3:38pm1.01 mg/dL0.55-1.02 Urine ColorSeptember 2024 5:16pmLT. YELLOWYELLOWBlood Urea Nitrogen December 11, 2024 5:40pmSeptember 2024 5:40pm13.0 mg/dL7.0-18.0Immature Granulocyte % (Auto)December 11, 2024 5:40pmSeptember 2024 5:40pm0.5 % 0.0-0.5HypochromasiaSeptember 2024 3:52amSeptember 2024 3:52am2+Red Blood CountSeptember 2024 3:52am3.30 10 6/uLBelow low normal4.20-5.40 Estimated GFR ()December 12, 2024 3:52amSeptember 2024 3:52am>60>=60 mL/min/1.73m 2Estimated GFR ()December 13, 2024 3:50amSeptember 2024 3:50am>60>=60 mL/min/1.73m 2Red Blood CountSeptember 2024 3:50amSeptember 2024 3:50am3.19 10 6/uLBelow low normal4.20-5.40 Urine NitriteSeptember 2024 9:49amSeptember 2024 9:49amNEGATIVE NEGATIVEEstimated GFR ()December 14, 2024 5:03amSeptember 5 5:03am>60>=60 mL/min/1.73m 2Red Blood CountSept2024 5:03am December 14, 2024 5:03am3.36 10 6/uLBelow low normal4.20-5.40Estimated GFR ()December 15, 2024 4:54amSeptember 2024 4:54am>60>=60 mL/min/1.73m 2Immature Granulocyte % (Auto)December 15, 2024 4:54amSeptember 2024 4:54am0.4 %0.0-0.5Urine Glucose (UA)January 01, 2025 9:02am January 01, 2025 9:04amnegativeImmature Granulocyte % (Auto)February 03, 2025 3:38pmOctober 2024 3:38pm0.1 %0.0-0.5Estimated GFR () February 03, 2025 3:38pmOctober 2024 3:38pm>60>=60 mL/min/1.73m 2Urine Glucose (UA)December 11, 2024 5:16pmNEGATIVE mg/dLNEGATIVECalcium Level December 11, 2024 5:40pmSept2024 5:40pm8.7 mg/dL8.5-10.1Lymphocytes # (Auto)December 11, 2024 5:40pmSeptember 2024 5:40pm1.9 10 3/uL1.2-3.8 Lymphocytes # (Manual)December 12, 2024 3:52amSeptember 2024 3:52am1.08 10 3/uLBelow low normal1.20-3.80Red Cell Distribution WidthSept2024 3:52am14.1 %11.0-15.0Estimated GFR (Non- AmericanSept2024 3:52amSeptember 2024 3:52am>60>=60 mL/min/1.73m 2Estimated GFR (Non- AmericanSept2024 3:50amSeptember 2024 3:50am>60>=60 mL/min/1.73m 2Red Cell Distribution WidthSeptember 2024 3:50amSeptember 2024 3:50am 14.1 %11.0-15.0Urine pHSept2024 9:49amSeptember 2024 9:49am6.0 5.0-9.0Estimated GFR (Non- AmericanSept2024 5:03amSeptember 2024 5:03am>60>=60 mL/min/1.73m 2Red Cell Distribution WidthSept2024 5:03amSeptember , 2024 5:03am13.9 %11.0-15.0Estimated GFR (Non- AmericanSeptember 2024 4:54amSeptember 2024 4:54am>60>=60 mL/min/1.73m 2Lymphocytes # (Auto)December 15, 2024 4:54amSeptember 2024 4:54am2.0 10 3/uL1.2-3.8Urine KetonesSeptember 2024 9:02amSeptember 2024 9:04am negativeLymphocytes # (Auto)February 03, 2025 3:38pmOctober 2024 3:38pm 2.5 10 3/uL1.2-3.8Estimated GFR (Non- AmericanOctober 2024 3:38pm February 03, 2025 3:28rc99Mzyni low normal>=60 mL/min/1.73m 2Urine Ketones December 11, 2024 5:16pmNEGATIVE mg/dLNEGATIVEChloride LevelSept2024 5:40pmSept2024 5:10mv471 mmol/O52-535Rdoutevyizt (%) (Auto) December 11, 2024 5:40pmSept2024 5:40pm12.4 %Below low normal 20.5-60.0Lymphocytes %December 12, 2024 3:52amSept2024 3:52am7.0 % Below low .5-60.0Corrected White Blood CountSept2024 3:52am 15.5 10 3/uLAbove high normal4.0-11.0Glucose LevelSeptember 2024 3:52am December 12, 2024 3:52am99 mg/lA17-216Ovpdzno LevelSeptember 2024 3:50am December 13, 2024 3:50am88 mg/bL87-286Hqgrmiioc White Blood CountSeptember 2024 3:50amSept2024 3:50am12.2 10 3/uLAbove high normal4.0-11.0 Urine ProteinSept2024 9:49amSept2024 9:49am30 mg/dL Abnormal (applies to non-numeric results)NEG/TRACEGlucose LevelSeptember 2024 5:03amSept2024 5:03am84 mg/kK97-010Ehuzxycin White Blood Count December 14, 2024 5:03amSept2024 5:03am11.3 10 3/uLAbove high normal4.0-11.0Glucose LevelSeptember 2024 4:54amSeptember 2024 4:54am 83 mg/uO62-647Mhackzyjpvk (%) (Auto)December 15, 2024 4:54amSept2024 4:54am18.0 %Below low weqrtt06.5-60.0Urine UrobilinogenSeptember 2024 9:02amSeptember 2024 9:04am0.2Lymphocytes (%) (Auto)February 03, 2025 3:38pmOctober 2024 3:38pm28.1 %20.5-60.0Glucose LevelOctober 2024 3:38pmOctober 2024 3:95eu955 mg/dD34-637Dmeje Leukocyte EsteraseSeptember 2024 5:16pmMODERATEAbnormal (applies to non-numeric results)NEGATIVECarbon Dioxide LevelSeptember 2024 5:40pmSeptember 2024 5:40pm27.5 mmol/L 21.0-32.0Mean Corpuscular HemoglobinSeptember 2024 5:40pmSeptember 2024 5:40pm28.3 pg26.7-34.0Monocytes # (Manual)December 12, 2024 3:52am December 12, 2024 3:52am3.10 10 3/uLAbove high normal0.30-0.80Potassium Level December 12, 2024 3:52amSept2024 3:52am3.6 mmol/L3.5-5.1Potassium LevelSeptember 2024 3:50amSeptember 2024 3:50am3.7 mmol/L3.5-5.1Urine Specific GravitySeptember 2024 9:49amSeptember 2024 9:49am1.020 1.005-1.025Potassium LevelSeptember 2024 5:03amSeptember 2024 5:03am 4.0 mmol/L3.5-5.1Potassium LevelSeptember 2024 4:54amSeptember 2024 4:54am4.0 mmol/L3.5-5.1Mean Corpuscular HemoglobinSeptember 2024 4:54am December 15, 2024 4:54am27.7 pg26.7-34.0Urine BilirubinSeptember 2024 9:02amSeptember 2024 9:04amnegativeMean Corpuscular HemoglobinOctober 2024 3:38pmOctober 2024 3:38pm27.3 pg26.7-34.0Potassium LevelOctober 2024 3:38pmOctober 2024 3:38pm3.9 mmol/L3.5-5.1Urine MucusSeptember 2024 5:16pmSMALLAbnormal (applies to non-numeric results)NONE SEEN CreatinineSeptember 2024 5:40pmSeptember 2024 5:40pm0.96 mg/dL 0.55-1.02Mean Corpuscular Hemoglobin ConcentSeptember 2024 5:40pmSeptember 2024 5:40pm32.4 g/dL29.9-35.2Monocytes %December 12, 2024 3:52amSept2024 3:52am20.0 %Above high normal1.7-12.0Sodium LevelSeptember 2024 3:52amSeptember 2024 3:07ma806 mmol/S953-163Bvrmua LevelSeptember 2024 3:50amSeptember 2024 3:17ib034 mmol/V140-836Wyitm UrobilinogenSeptember 2024 9:49amSeptember 2024 9:49am1.0 EU/dL0.2-1.0Sodium LevelSeptember 2024 5:03amSeptember 2024 5:29ee920 mmol/LAbove high eirdkg960-918 Sodium LevelSeptember 2024 4:54amSeptember 2024 4:05ry677 mmol/L 136-145Mean Corpuscular Hemoglobin ConcentSeptember 2024 4:54amSeptember 2024 4:54am31.9 g/dL29.9-35.2Urine Occult BloodSeptember 2024 9:02am January 01, 2025 9:04am++Mean Corpuscular Hemoglobin ConcentOctober 2024 3:38pmOctober 2024 3:38pm31.7 g/dL29.9-35.2Sodium LevelOctober 2024 3:38pmOctober 2024 3:19ej747 mmol/T962-861Zzczp NitriteSeptember 2024 5:16pmNEGATIVENEGATIVEEstimated GFR ()December 11, 2024 5:40pmSeptember 2024 5:40pm>60>=60 mL/min/1.73m 2Mean Corpuscular Volume December 11, 2024 5:40pmSeptember 2024 5:40pm87.4 fL81.0-99.0Segmented Neutrophils # (Manual)December 12, 2024 3:52amSept2024 3:52am11.16 10 3/uLAbove high normal1.4-6.5Mean Corpuscular VolumeSeptember 2024 4:54am December 15, 2024 4:54am87.1 fL81.0-99.0Mean Corpuscular VolumeOctober 2024 3:38pmOctober 2024 3:38pm86.0 fL81.0-99.0Urine pHSept2024 5:16pm6.05.0-9.0Estimated GFR (Non- AmericanSept2024 5:40pm December 11, 2024 5:65nt42Pvjzh low normal>=60 mL/min/1.73m 2Monocytes # (Auto)December 11, 2024 5:40pmSept2024 5:40pm1.3 10 3/uLAbove high normal0.3-0.8Segmented NeutrophilsSept2024 3:52amSeptember 2024 3:52am72.043.0-75.0Monocytes # (Auto)December 15, 2024 4:54amSept2024 4:54am0.7 10 3/uL0.3-0.8Monocytes # (Auto)February 03, 2025 3:38pmOctober 2024 3:38pm0.7 10 3/uL0.3-0.8Urine ProteinSeptember 2024 5:16pmTRACE mg/dLNEG/TRACEGlobulinSept2024 5:40pmSept2024 5:40pm4.0 g/dLMonocytes (%) (Auto)December 11, 2024 5:40pmSept2024 5:40pm8.5 %1.7-12.0Clumped PlateletsSept2024 3:52amSeptember 2024 3:52am RAREMonocytes (%) (Auto)December 15, 2024 4:54amSeptember 2024 4:54am6.4 %1.7-12.0Monocytes (%) (Auto)February 03, 2025 3:38pmOctober 2024 3:38pm 8.1 %1.7-12.0Urine RBCSept2024 5:87rq3-2 #/HPF0-2Glucose Level December 11, 2024 5:40pmSept2024 5:53je635 mg/dLAbove high normal 74-106Mean Platelet VolumeSeptember 2024 5:40pmSeptember 2024 5:40pm 8.9 fLBelow low normal9.5-13.5Platelet CommentSept2024 3:52am December 12, 2024 3:52amABNORMALMean Platelet VolumeSeptember 2024 4:54am December 15, 2024 4:54am9.6 fL9.5-13.5Mean Platelet VolumeOctober 2024 3:38pmOctober 2024 3:38pm9.3 fLBelow low normal9.5-13.5Urine Specific GravitySept2024 5:16pm1.0101.005-1.025Potassium LevelSept2024 5:40pmSept2024 5:40pm3.7 mmol/L3.5-5.1Neutrophils # (Auto) December 11, 2024 5:40pmSept2024 5:40pm12.2 10 3/uLAbove high normal1.4-6.5PolychromasiaSept2024 3:52amSeptember 2024 3:52am1+ Neutrophils # (Auto)December 15, 2024 4:54amSept2024 4:54am8.0 10 3/uLAbove high normal1.4-6.5Neutrophils # (Auto)February 03, 2025 3:38pmOctober 2024 3:38pm5.5 10 3/uL1.4-6.5Urine Squamous Epithelial CellsSept2024 5:16pmFEW #/LPFAbnormal (applies to non-numeric results)NONE/RARESodium LevelSept2024 5:40pmSept2024 5:80sg030 mmol/G448-456 Neutrophils (%) (Auto)December 11, 2024 5:40pmSept2024 5:40pm78.0 % Above high uturch23.0-75.0Red Blood Cell MorphologySept2024 3:52am December 12, 2024 3:52amABNORMALNeutrophils (%) (Auto)December 15, 2024 4:54amSept2024 4:54am72.4 %43.0-75.0Neutrophils (%) (Auto)February 03, 2025 3:38pmOctober 2024 3:38pm62.2 %43.0-75.0Urine Urobilinogen December 11, 2024 5:16pm0.2 EU/dL0.2-1.0Total BilirubinSept2024 5:40pmSept2024 5:40pm0.2 mg/dL0.2-1.0Platelet CountSept2024 5:40pmSept2024 5:10ep861 10 3/uLAbove high pbgyah594-974Wlwrfykn CountSept2024 4:54amSept2024 4:92ia727 10 3/uLAbove high bbqywo029-974Hyvnwafd CountOct2024 3:38pmOctober 2024 3:53fw307 10 3/qZ753-625Nqvxo WBCSept2024 5:19ro48-99 #/HPFAbnormal (applies to non-numeric results)NONE SEENTotal ProteinSept2024 5:40pmSept2024 5:40pm6.5 g/dL6.4-8.2Red Blood CountSept2024 5:40pm December 11, 2024 5:40pm3.57 10 6/uLBelow low normal4.20-5.40Red Blood Count December 15, 2024 4:54amSept2024 4:54am3.64 10 6/uLBelow low normal 4.20-5.40Red Blood CountOctober 2024 3:38pmOctober 2024 3:38pm4.36 10 6/uL4.20-5.40Red Cell Distribution WidthSept2024 5:40pmSept2024 5:40pm14.2 %11.0-15.0Red Cell Distribution WidthSept2024 4:54amSept2024 4:54am14.0 %11.0-15.0Red Cell Distribution Width February 03, 2025 3:38pmOctober 2024 3:38pm14.8 %11.0-15.0Corrected White Blood CountSept2024 5:40pmSept2024 5:40pm15.7 10 3/uLAbove high normal4.0-11.0Corrected White Blood CountS2024 4:54am December 15, 2024 4:54am11.1 10 3/uLAbove high normal4.0-11.0Corrected White Blood CountOctober 2024 3:38pmOctober 2024 3:38pm8.9 10 3/uL4.0-11.0 Microbiology Results Procedure Source Result Collection Date/Time Result Date/Time Result Comment Performing Site Urine Culture Urine Pseudomonas aeruginosa Augu 2024 1:30pm December 04, 2024 9:21am [facility] [id number] [address] [facility] [id number] CultureUrineNo Growth 2 DaysSept2024 9:00am January 04, 2025 [facility] [id number] [address] [facility] [address] Vital Signs Vital Reading Result Reference Range Collection Date/Time Height 67 [in_i] November 15, 2024 1:34gaXsbpes89.11 kgAugust 2024 1:38pmHeart Rate82 /min 60-100August 2024 1:38pmBP Csrljbei101 mm[Hg]100-140August 2024 1:38pm BP Ilnaayvmr50 mm[Hg]60-100August 2024 1:38pmBMI (Body Mass Index)26.6 kg/c8Bqjeen2024 1:32qaWvhecs45 [in_i]December 06, 2024 10:20lvNezymw60.16 kgAugust 2024 10:35amHeart Rate63 /dal91-082Uyqzxz 2024 10:35am Respiratory rate14 /ysj61-60Umsmvr 2024 10:35amOxygen saturation by Pulse ijmtlwuc03 %95-100August 2024 10:35amBP Cbrqjzyt47 mm[Hg]100-140August 2024 10:35amBP Jljkomfxy47 mm[Hg]60-100August 2024 10:35amBMI (Body Mass Index)25.6 kg/f1Zywsdn 2024 10:65chAflrro31 [in_i]December 23, 2024 1:59ozAehvzx44.84 kgSeptember 2024 1:29pmHeart Rate97 /sxk48-622 December 23, 2024 1:29pmBP Uwuzcsuq429 mm[Hg]100-140September 2024 1:29pmBP Cpiqlyzyx81 mm[Hg]60-100September 2024 1:29pmBMI (Body Mass Index)25.8 kg/i5Hogloqxpp 2024 1:07awMuxieu70 [in_i]February 12, 2025 10:29miYqqvqm39.53 kgNov2024 10:44amHeart Rate80 /plg40-247AcmsmwjtFebruary 12, 2025 10:55amBP Mzhhyahn335 mm[Hg]100-140Nov2024 10:55amBP Hzcizuyfj29 mm[Hg]60-100Nov2024 10:55amBMI (Body Mass Index)25.4 kg/x5BklqbcwwFebruary 12, 2025 10:44am Advance Directives Advance Directive Response Recorded Date/ Time Advance Directives No November 04 7:42am Insurance Providers Guarantor Cristine Manley Address [address] [facility] [address]ed[place]xww Info.Home Phone: Payer Group Member ID Coverage Type Subscriber Relationship to Subscriber Effective Date Expiration Date [employer] [address] [address] [facility] [address] Work Phone: [id number] Id: Gerson [id number] K Weaver Id: [id number] [address] [facility] [address] Home Phone: Self Encounters Encounter Location(s) Arrival/Admit Date Discharge/Departure Date Discharge/Departure Disposition Provider(s) Departed Physician/ Provider Office Visit -[facility] November 15, 2024 2:27pm November 15, 2024 3:01pm Discharged to home care or self care (routine discharge) Celia Blank MD Departed Physician/ Provider Office Visit -[facility] December 02, 2024 11:24am December 02, 2024 12:58pm Discharged to home care or self care (routine discharge) Celia Blank MD Departed Referred -[facility] December 02, 2024 1:30pm December 02, 2024 1:31pm Discharged to home care or self care (routine discharge) Celia Blank MD Departed Physician/ Provider Office Visit -[facility] December 06, 2024 11:34am December 06, 2024 12:10pm Discharged to home care or self care (routine discharge) Celia Blank MD Non-patient / Non-visit -[facility] 20[facility] 6:16pm Jax Gannon-patient / Yov-eqnpu-[facility]qu [facility]24 4:52amLamont Ponce-patient / Eph-yipfw-Rhkou [facility] 2024 4:50amSShasta Machado-patient / Luu-cuwxc-Ykqra [facility] 2024 6:03amSShasta Machado-patient / Xoj-tizof-Qecmv [facility] 5:54am Shasta Gannon-[facility] / [facility] December 17, 2024 10:26amLauryn Diamondpartnicholas Physician/[facility] 2:26pmSept2024 3:09pmDischarged to home care or self care (routine discharge)JESUS Rooteparted [facility] 2024 9:01amDischarged to home care or self care (routine discharge)Celia E Blank , MDDeparted Physician/Provider Office Visit-[facility] January 01, 2025 9:57amSeptember 2024 10:36amDischarged to home care or self care (routine discharge)Celia Blank MDNon-patient / Ivw-pyuxy-Starw [facility] 2024 4:38pmSelvon F St Tan , MDDeparted Physician/[facility] 10[facility]40amNovember 2024 11:08amDischarged to home care or self care (routine discharge)Celia Blank MD Recent Diagnosis Onset Date Admit Date Bladder mass Unknown November 15, 2024 2:27pm Lumbar radiculopathy, chronic Unknown Au [facility]ant[facility] 2024 2:27pm Bladder cancer Unknown December 02 11:24am Febrile illness Unknown December 02 11:24am Left flank pain Unknown December 02 11:24am Thrush Unknown December 06 11:34am UTI (urinary tract infection) Unknown Au [facility] 2024 11:34am Bladder cancer Unknown December 23, 2024 2:26pm Lumbar radiculopathy, chronic Unknown Se ptember 2024 2:26pm UTI (urinary tract infection) Unknown Se ptember 2024 2:26pm Vaginal yeast infection Unknown r 2024 2:26pm UTI (urinary tract infection) Unknown Se ptember 2024 9:57am Assessments Diagnosis Onset Date Resolution Status Admit Date Bladder mass acuteAugust 2024 2:27pmLumbar radiculopathy, chronicacuteAugust 2024 2:27pmBladder canceracuteAugust 2024 11:24amFebrile illnessacuteAugust 2024 11:24amLeft flank painacuteAugust 2024 11:24amThrushacuteAugust 2024 11:34amUTI (urinary tract infection)acuteAugust 2024 11:34am Bladder canceracuteSeptember 2024 2:26pmLumbar radiculopathy, chronicacute December 23, 2024 2:26pmUTI (urinary tract infection)acuteSeptember 2024 2:26pmVaginal yeast infectionacuteSeptember 2024 2:26pmUTI (urinary tract infection)acuteSept2024 9:57am Plan of Treatment Author eClia Blank [facility] 2024 2:06pmCancer noted on path report. Followup w Urology on Monday. Reviewed OARRS. Signed pain med contract earlier this year. UDS obtained in July. Followup w specialist as scheduled. In past, we have increased cymbalta for nerve related pain - it was not helpful. [facility] is not scheduling surgery at this time. She is waiting to hear from [facility] Pain mgmt about the RFA. Hoping for back surgery w Dr. Vance on 02/04/25 Takes tizanidine and norco tid every day. Denies over sedation. Followup in 3 months Author Celia Blank [facility] 2024 12:28pmWill prescribed antibiotic, send culture and share information w her Urologist. Rx sent to pharmacy. Stay hydrated. Author Celia Blank [facility] 2024 1:10pmNystatin as prescribed. Finish antibiotic for UTI. Author Celia Blank [facility] 2024 2:57pmRepeat Culture 12/27 or 12/30 to make sure infection has resolved. Followup w Urology tomorrow Reviewed OARRS. Signed pain med contract earlier this year. UDS obtained in July. Followup w specialist as scheduled. In past, we have increased cymbalta for nerve related pain - it was not helpful. Hoping for back surgery w Dr. Vance on 02/04/25 Takes tizanidine and norco tid every day. Denies over sedation. Followup in 3 months 2 doses of fluconazole sent to pharmacy. Future Tests Future scheduled test information is unavailable Pending Tests Pending diagnostic test information is unavailable Future Visits Future appointment information is unavailable Future Procedures Future procedure information is unavailable Future Medications Future medication information is unavailable Patient Instructions Patient instructions are unavailable
--- OUTSIDE RECORDS SUMMARY | 2025-02-19 09:00 | XMS_ITS | Encounter Summary ---
Author Organization [facility] Address [address] [place] [address] Care Team Providers Care Supply Crib Attendant Name Role Phone Celia Blank MD Primary Care Provider [phone] Reason for Referral * Imaging (Routine) - Pending ReviewSpecialtyDiagnoses / ProceduresReferred By ContactReferred To ContactCardiology Diagnoses Preoperative clearance Dyspnea on exertion Procedures Transthoracic echo (TTE) complete Tessa Brannon MD [address] [facility] [address] Phone: tel: fax: Referral IDStatusReasonStart DateExpiration DateVisits RequestedVisits [id number] Review Perform Procedure Encounter Details DateTypeDepartmentCare Team (Latest Contact Info)Iukhnnvzcwc65/12/2025 9:00 AM ESTOffice Visit [facility] [place] [address] [place] [address] Tessa Brannon MD [address] [facility] [address] Preoperative clearance (Primary Dx); Dyspnea on exertion; Chronic obstructive pulmonary disease, unspecified COPD type (CMS/HCC) Social History Tobacco UseTypesPacks/DayYears UsedDateSmoking Tobacco: Every DayCigarettes Smokeless Tobacco: NeverCommentsUnknownSex and Gender InformationValue Date RecordedSex Assigned at AbyipPpbvax85/07/2025 10:59 AM ESTLegal SexFemale 02/12/2025 12:01 PM ESTGender IdkbhtquNtsrek88/07/2025 10:59 AM ESTSexual OrientationHeterosexual or Dvdlgoto22/07/2025 10:59 AM ESTdocumented as of this encounter Last Filed Vital Signs Vital SignReadingTime TakenCommentsBlood Ffxhehjp346/80104/21/2024 8:58 AM EST Ifvda327602/19/2025 8:58 AM ESTTemperature--Respiratory Rate--Oxygen Ixjroxicmx29% 02/19/2025 8:58 AM ESTInhaled Oxygen Concentration--Xhgcqc27.4 kg (164 lb) 02/19/2025 8:58 AM VNVQwbxxz216.2 cm (5' 7 )02/19/2025 8:58 AM ESTBody Mass Index25.6902/19/2025 8:58 AM ESTdocumented in this encounter Functional Status * BPAnswerDate of OlhhuyoqlcHxmgqs858/80104/21/2024 8:58 AM Karrie Peng MA * PulseAnswerDate of IjxipdlpdfOdttta1268/12/2025 8:58 AM Karrie Peng MA * Audit Alcohol ScreeningQuestionAnswerDate of AssessmentAuthorHow often do you have a drink containing alcohol? 9:06 AM Karrie Peng MA * Patient PositionAnswerDate of TazjvvbnuzLatdyqAgyophu81/12/2025 8:58 AM Karrie Duncan MA * BPAnswerDate of ZcdfdbqjihIwrimi086/80104/21/2024 8:58 AM Karrie Peng MA * PulseAnswerDate of OgxndrhhnaSqdtns1761/12/2025 8:58 AM Karrie Peng MA * LoG7SvcwuxLrez of YtbtzriwziPuhoyu4107/12/2025 8:58 AM Karrie Peng MA * BP LocationAnswerDate of AssessmentAuthorRight arm02/19/2025 8:58 AM Karrie Duncan MA * Audit Alcohol ScreeningQuestionAnswerDate of AssessmentAuthorHow often do you have a drink containing alcohol? 9:06 AM Karrie Peng MA * Patient PositionAnswerDate of HskezxhpesYjtmhqMrwnfvr22/12/2025 8:58 AM Karrie Duncan MA documented as of this encounter Progress Notes * Tessa Brannon MD - 02/19/2025 9:00 AM EST Images from the original note were not included. [facility] Cardiology Clinic Note Chief Complaint: Patient is here today as a new patient to establish care with cardiology. Patient is having lumbar fusion surgery L3 to S1 OIO with Dr. Lee. Patient had pre op testing with abnormal EKG. Patient denies chest pain, leg swelling, palpitations/racing heart, dizziness/lightheaded, abnormal bleeding/bruising, Patient has SOB/GOLDBERG due to copd Review of Systems Cardiovascular: Positive for dyspnea on exertion. Respiratory: Positive for shortness of breath. HPI: Cristine Manley is a 65 y.o. female with a history of longstanding COPD on inhaler therapy here for preoperative evaluation The patient requires lumbar spine surgery She is able to walk up and down a flight of stairs with some stable shortness of breath but no chest pain or chest pressure. She has no orthopnea, no paroxysmal external dyspnea, and no lower extremity edema. She denies palpitations. She has no known history of coronary artery disease, congestive heart failure, or peripheral vascular disease. Past medical history: She has no history of diabetes mellitus, hypertension, or dyslipidemia Social history: She continues to smoke Cardiology ROS: GENERAL: Denies fever, chills, night sweats, weight loss. HEENT: Denies changes in vision, photophobia, changes in hearing, epistaxis, oral bleeding. CARDIOVASCULAR: Denies chest pain, exertional dyspnea, orthopnea/PND, lower extremity edema, palpitations, lightheadedness/dizziness. RESPIRATORY: Denies SOB, coughing, wheezing GI: Denies abdominal pain, nausea/vomiting, heartburn, melena/hematochezia. RENAL: Denies dysuria, hematuria, flank pain. MSK: Denies muscle weakness/pain, arthralgias/joint pain. NEUROLOGIC: Denies LOC, weakness, numbness, headaches. SKIN: Denies abnormal rashes or bleeding. PSYCH: Denies significant anxiety, depression, sleep disturbances. Past Medical History She has a past medical history of COPD (chronic obstructive pulmonary disease) ([facility]) and GERD (gastroesophageal reflux disease). Surgical History She has a past surgical history that includes Bladder surgery; Tonsillectomy; Oophorectomy; Neck surgery; and Bunionectomy. Social History She reports that she has been smoking cigarettes. She does not have any smokeless tobacco history on file. No history on file for alcohol use and drug use. Family History Family History[1] Allergies Sulfa (sulfonamide antibiotics), Alendronate sodium, Clarithromycin, Lactobacillus, Oxycodone-acetaminophen, Oxycodone, and Quinolones Medications Current Medications[2] Last Recorded Vitals BP 135/80 (BP Location: Right arm, Patient Position: Sitting) Pulse 71 Ht 1.702 m (5' 7 ) Wt 74.4 kg (164 lb) SpO2 97% BMI 25.69 kg/m?? Physical Examination: GENERAL: alert and oriented x3, well developed, in no acute distress. HEAD: atraumatic, normocephalic. EYES: YVETTE, EOMI. NECK: trachea midline, no JVD present, no carotid bruits present. CARDIAC: S1, S2 present. RRR. No murmur, rubs, or gallops. RESPIRATORY: CTAB, no increased effort of breathing, no rales, rhonchi, or wheezing. ABDOMEN: soft, nontender, nondistended. EXTREMITIES: no lower extremity edema, peripheral pulses are 2+ bilaterally. No rash/skin discoloration present. NEURO: strength/sensation equal and symmetric in bilateral upper and lower extremities. PSYCH: appropriate mood, affect, and judgement. Investigations: 12-lead EKG 02/03/2025 Sinus rhythm Septal myocardial infarct age-indeterminate Abnormal EKG Assessment: Preoperative evaluation Shortness of breath likely related to COPD Abnormal EKG Current smoker Plan: Will order an echocardiogram; if no wall motion abnormalities, and no significant structural disorders, she would be at acceptable risk to proceed with spine surgery. Recommend strict heart rate and blood pressure control and avoidance of major fluid shifts perioperatively. If any abnormalities are seen on echocardiography, she would likely need further testing either in the form of a stress test or cardiac catheterization. Tessa Brannon MD, MPH, [facility] Interventional Cardiology Pager Email: [email or web address] [1] No family history on file. [2] No current outpatient medications on file. documented in this encounter Plan of Treatment NameTypePriorityAssociated DiagnosesOrder ScheduleTransthoracic echo (TTE) completeEchocardiographyRoutine Preoperative clearance Dyspnea on exertion Expected: 02/19/2025 (Approximate), Expires: 02/19/2027documented as of this encounter Visit Diagnoses Diagnosis Preoperative clearance- Primary Unspecified pre-operative examination Dyspnea on exertion Other dyspnea and respiratory abnormality Chronic obstructive pulmonary disease, unspecified COPD type (CMS/HCC) documented in this encounter Care Teams Team MemberRelationshipSpecialtyStart DateEnd Date Celia Blank MD [address] [facility] [address] PCP - Tplfxow47/5/25documented as of this encounter
--- OUTSIDE RECORDS SUMMARY | 2025-02-20 07:43 | XMS_ITS | Clinical Summary ---
Author Organization [facility] Address [address], [address] [place] [address] Care Team Providers Care Horticultural Specialty Grower Inside Name Role Phone Celia Blank MD Primary Care Provider [phone] Allergies Active AllergyReactionsCriticalityNoted DateCommentsAlendronate SodiumMyalgia 12/23/20243439UlfafxjzwjisXfebBqp84/02/2010OxycodoneNausea And RruylvfzYfs79/30/2025 Percocet Sulfa AntibioticsOther (See Comments)Lxudkf6803/11/2010 Unknown - she was told not to take it d/t unknown reaction as a child Medications MedicationSigDispense QuantityRefillsLast FilledStart DateEnd DateStatus HYDROcodone-acetaminophen (NORCO) 5-325 MG per tablet Take 1 tablet by mouth .Active tiZANidine (ZANAFLEX) 4 MG tablet Take 4 mg by mouth03/09/2016Active omeprazole (PRILOSEC) 20 MG delayed release capsule Take by mouth03/11/2010ctive buPROPion (WELLBUTRIN XL) 300 MG extended release tablet Indications:Cigarette nicotine dependence with nicotine-induced disorderTake 1 tablet by mouth Daily 90 tablet 5Active albuterol (PROVENTIL) (2.5 MG/3ML) 0.083% nebulizer solution Indications:Moderate persistent asthma, uncomplicatedTake 3 mLs by nebulization 4 times daily 1080 mL 5Active hfxvaypiyvc-yusrivrlc-rqxuog (TRELEGY ELLIPTA) 200-62.5-25 MCG/ACT AEPB inhaler Indications:Moderate persistent asthma, uncomplicatedInhale 1 puff into the lungs daily 3 each 5Active diclofenac (CATAFLAM) 50 MG tablet Take 50 mg by mouth02/07/2025Discontinued(LIST CLEANUP) amitriptyline (ELAVIL) 25 MG tablet Take 25 mg by mouthDiscontinued(LIST CLEANUP) fluticasone-salmeterol (ADVAIR DISKUS) 250-50 MCG/DOSE AEPB Inhale 1 puff into the lungs02/07/2025Discontinued(LIST CLEANUP) albuterol sulfate HFA (PROVENTIL;VENTOLIN;PROAIR) 108 (90 Base) MCG/ACT inhaler Inhale 2 puffs into the lungs every 6 hours as lwajnt7602/07/2025Discontinued (Patient Choice) albuterol (PROVENTIL) (2.5 MG/3ML) 0.083% nebulizer solution Take 3 mLs by nebulization every 4 hours as qzymbp44 Discontinued(REORDER) buPROPion (WELLBUTRIN SR) 150 MG extended release tablet Take 2 tablets by mouth Daily02/07/2025Discontinued(ERROR) TRELEGY ELLIPTA 200-62.5-25 MCG/ACT AEPB inhaler Inhale 1 puff into the lungs daily02/07/2025Discontinued(REORDER) Active Problems ProblemNoted DateDiagnosed DateLong term (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 of 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 02/06/2025 Assessment & Plan (02/07/2025 1:58 PM EDT): The patient was counseled to rinse and gargle after use of her steroid- containing inhaler to reducethe risk of oral candidiasis and other potential adverse effects. Moderate persistent asthma, uncomplicated Assessment & Plan (02/07/2025 1:58 PM EDT): Prior treatment: Trelegy 200 > Advair 250 [...] 3 mLs by nebulization 4 times daily ddsqguaqkgp-tmedksubs-shinhf (TRELEGY ELLIPTA) 200-62.5-25 MCG/ACT AEPB inhaler; Inhale 1 puff intothe lungs daily Cigarette nicotine dependence with nicotine-induced disorder Assessment & Plan (02/07/2025 1:58 PM EDT): Patient was counseled on smoking cessation today [...] mouth Daily CT LUNG CANCER SCREENING (INITIAL/ANNUAL) Multiple pulmonary nodules Assessment & Plan (02/07/2025 1:58 PM EDT): LDCT 03/21/2024 - RUL patchy scarring and scattered pulmonary nodules 3mm or less in size. According to current Fleischner Society Guidelines, no further imaging monitoring is required Resolved Problems ProblemNoted DateDiagnosed DateResolved DateAntral ulcerGERD (gastroesophageal reflux disease)Depression02/06/2025 02/06/2025Kidney stoneMalignant neoplasm of urinary bladder OsteopeniaRight thyroid rlgysn5402/06/2025 02/06/2025Sigmoid Encounters DateTypeDepartmentCare VfshQucxlmpurpd25/31/2025 1:00 PM EDTOffice Visit [facility] Pulmonology [address] [place] [address] [place] [address] Scott Dennis DO Encounter for preoperative pulmonary examination (Primary Dx); Moderate persistent asthma, uncomplicated; Cigarette nicotine dependence with nicotine-induced disorder; Encounter for screening for lung cancer; Multiple pulmonary nodules; 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 inhaled pzbfmuli33/30/2025bstract [facility] Pulmonology [address] [place] [address] Scott Dennis DO 01/29/2025Telephone [facility] Pulmonology [address] [place] [address] [place] [address] Scott Dennis DO Pulmonary Clearancefrom Last 3 Months Immunizations ImmunizationAdministration DatesNext DueDTaP ltcaxqc8710/07/2018Pneumococcal, PCV20, PREVNAR 20, (age 6w+), IM, 0.5mL12/13/2024TD 5LF, TENIVAC, (age 7y+), IM, 0.5mL02/05/2014 Family History Medical HistoryRelationNameCommentsCOPDBrotherCancerFatherDiabetes type 2Mother HypertensionMotherRelationNameStatusCommentsBrotherFatherMother Social History Tobacco UseTypesPacks/DayYears UsedDateSmoking Tobacco: Every LrsPgszenujli255 Started: 02/06/1975Passive Smoke Exposure: CurrentSmokeless Tobacco: Never Tobacco Cessation:Ready to Q uit: Yes; Counseling Given: Yes Alcohol UseStandard Drinks/WeekCommentsNo0 (1 standard drink = 0.6 oz pure alcohol)CommentsNoSex and Gender InformationValueDate RecordedSex Assigned at BirthNot on fileLegal VmpCiprja29/10/2013 2:49 PM ESTGender Identity Not on fileSexual OrientationNot on fileOccupationIndustryJob Start DateJob End DateBoat maintenanceNot on fileNot on fileNot on fileSeamstressNot on fileNot on fileNot on file Last Filed Vital Signs Vital SignReadingTime TakenCommentsBlood Oitypyok576/8802/07/2025 1:03 PM EDT Oyvqg230602/07/2025 1:03 PM ROSMzzsshvrfpt65 ??C (96.8 ??F)02/07/2025 1:03 PM EDT Respiratory Csgj1143 1:03 PM EDTOxygen Kpoqqroomk56%02/07/2025 1:03 PM EDTon room airInhaled Oxygen Concentration--Ustzrr98.2 kg (165 lb 12.8 oz) 02/07/2025 1:03 PM DXTTbxcfz819.2 cm (5' 7 )02/07/2025 1:03 PM EDTBody Mass Index25.9702/07/2025 1:03 PM EDT Plan of Treatment DateTypeDepartmentCare Team (Latest Contact Info)Zzskxfydlxa98/28/2026 2:30 PM EDTOffice Visit [facility] Pulmonology [address] [place] [address] [address] [place] [address] [place] [address] [place] [address] [address] [place] [address] FU ASTHMAHealth MaintenanceDue DateLast DoneCommentsDepression Uftmed5601/21/1971 Hepatitis C zdnbgt7201/21/1977Diabetes icrghp3601/21/1994Breast cancer screen 01/21/19995169Mbjfls25/14/4183Vdrypwjgnef55/14/2004Colorectal Cancer Screen 01/22/2004FIT/FOBT: Average risk01/22/2004Fecal-DNA (Cologuard): Average risk 01/22/2004Sigmoidoscopy/CT /14/2004Lung Cancer Screening &/or Wugtjuoark65/14/2009Shingles vaccine (1 of 2)2009DEXA (modify frequency per FRAX score)2014Respiratory Syncytial Virus (RSV) or age 60 yrs+ (1 - Risk 60-74 years 1-dose series)2019Annual Wellness Visit (Medicare Advantage)04/10/2024Flu vaccine (#1)5COVID-19 Vaccine (4 - season)/, 08/11/2020, 1DTaP/Tdap/Td vaccine (2 - Tdap), 02/05/2014Pneumococcal 50+ years Vaccine Tymsimrea12/05/2025Hepatitis A vaccineAged OutNo longer eligible based on patient's age to complete this topicHepatitis B vaccineAged OutNo longer eligible based on patient's age to complete this topicHib vaccineAged OutNo longer eligible based on patient's age to complete this topicMeningococcal (ACWY) vaccineAged OutNo longer eligible based on patient's age to complete this topicMeningococcal B vaccineAged OutNo longer eligible based on patient's age to complete this topicPolio vaccineAged OutNo longer eligible based on patient's age to complete this topic Insurance Advance Directives NameRelationshipHealthcare Agent RelationshipCommunicationJeff Anujbanner gold[facility] medical centerSpouse Primary Decision Maker* Care Teams Team MemberRelationshipSpecialtyStart DateEnd Date Celia Blank MD PCP - GeneralFamily Medicine06/29/16
--- OUTSIDE RECORDS SUMMARY | 2025-02-20 07:43 | XMS_ITS | Clinical Summary ---
Author Organization [facility] Address [address] [place] [address] Care Team Providers Care Plant Tech Name Role Phone Celia Blank MD Primary Care Provider [phone] Ofelia Arceo MD Unavailable Geoff Walker DO Unavailable [phone] Allergies Active AllergyReactionsCriticalityNoted MvyoTnlodomkTjjporcnfwc41/20/2024 Other Reaction(s): Hives, Muscle pain Kdthjgnloegsrm14/20/2024 Other Reaction(s): Hives, Unknown Pjnefeptabtnz04/26/2025 Other Reaction(s): Unknown Oxycodone-AcetaminophenNausea Only06/05/20248892IffiiifehgFymeFle90/02/2010 Other Reaction(s): Hives, Other (See Comments), Unknown, Unknown Sulfa Rpxsydtzyud86/02/2010 Other Reaction(s): Other (See Comments), Unknown Medications [...] (PriLOSEC) [address] capsule OralActive HYDROcodone-acetaminophen (Freeland) 5-325 MG tablet Take 1 tablet by mouth in the morning and 1 tablet in the evening and 1 tablet before bedtime.Active Resolved Problems ProblemNoted DateDiagnosed DateResolved OiniUltfmk49ilateral knee painMI 27.0-27.9,adulthronic back painhronic GERDhronic obstructive pulmonary disease, ndpovgrpigm98igarette nicotine dependence with nicotine-induced elbuyakf12Depression Early qbblbzr85Epigastric painHeadache Joint painLong term (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 of inhaled ssdmnclg78Lumbar radiculopathy, gxuwmwn8306/05/2024 06/05/20248703Knoxelksp40Moderate persistent asthma, uncomplicated Osteoarthritis of right wristOsteopenia Pain in posterior right lower ymyfpaltu10 Primary osteoarthritis of both kneesRib fhscguii44/26/2025 06/05/2024Right thyroid qxrdzh02Encounter for immunization Tick bite5006/05/2024Tobacco user06/05/2024 06/05/2024Very low density tbxnkwjesvdrso07/26/32790206/05/2024 Immunizations ImmunizationAdministration DatesNext DueDTaP, Iceetlatsvq63/30/2019Pfizer Purple Cap SARS-CoV-2 Gnrvcklrgmi43/20/2021,08/11/2020,07/21/2020Td (adult), 5 Lf tetanus toxoid, preservative free, emfmbbwt83/29/2014 Social History Tobacco UseTypesPacks/DayYears UsedDateSmoking Tobacco: Every DayCigarettes Smokeless Tobacco: Never Tobacco Cessation:Ready to Q uit: Not Asked; Counseling Given: Not Answered Alcohol UseStandard Drinks/WeekCommentsNot Currently0 (1 standard drink = 0.6 oz pure alcohol)CommentsUnknownSex and Gender InformationValueDate Recorded Sex Assigned at BirthNot on fileLegal JaaQpikbd75/15/2023 6:39 PM EDTGender IdentityNot on fileSexual OrientationNot on file Last Filed Vital Signs Vital SignReadingTime TakenCommentsBlood Pressure--Pulse--Temperature-- Respiratory Rate--Oxygen Saturation--Inhaled Oxygen Concentration--Sfkvqi01.3 kg (177 lb)06/05/2024 2:11 PM YKBWlhime753.2 cm (5' 7 )06/05/2024 2:11 PM ESTBody Mass Index27.72006/05/2024 2:11 PM EST Plan of Treatment DateTypeDepartmentCare Team (Latest Contact Info)Hpxvrxmstnq51/03/2026 8:45 AM ESTOffice Visit [facility] [address] [place] [address] Geoff Walker, DO [address] [place] [address] Health MaintenanceDue DateLast DoneCommentsCT Szrpxvduwdld1959FIT-DNA 1959FIT1959FOBT1959 4074Ybjlkkkcicjzy53/14/1093Hfputmzne84/14/1999 Pneumococcal Vaccine: 65+ Years (1 of 1 - PCV)2009COVID-19 Vaccine ( - 2024- season), 08/11/2020, 07/21/2020Influenza Vaccine (#1)6033Jtmuqxbexzx472Colorectal Cancer Screening 01/13/2032 Insurance Care Teams Team MemberRelationshipSpecialtyStart DateEnd Celia Blank MD PCP - GeneralFamily Ueczyaxw03/18/24 Ofelia Arceo MD [address] [facility] [address] [place] [address] Referring PhysicianInternal Edmzkpem80/18/24 Geoff Walker DO [address] [place] [address] Otolaryngology2/
--- OUTSIDE RECORDS SUMMARY | 2025-02-20 07:43 | XMS_ITS | Encounter Summary ---
Author Organization [facility] Address [address], [address] [place] [address] Care Team Providers Care Last Pattern Grader Name Role Phone Celia Blank MD Primary Care Provider [phone] Encounter Details DateTypeDepartmentCare Team (Latest Contact Info)Pecmgcaioqk84/30/2025bstract [facility] Pulmonology [address] [place] [address] [address] [address] [address] Social History Tobacco UseTypesPacks/DayYears UsedDateSmoking Tobacco: Every TlyFdqpeansmz096 Started: 02/06/1975Alcohol UseStandard Drinks/WeekCommentsNo0 (1 standard drink = 0.6 oz pure alcohol)CommentsNoSex and Gender InformationValueDate RecordedSex Assigned at BirthNot on fileLegal GqqQieqxe58/10/2013 2:49 PM EST Gender IdentityNot on fileSexual OrientationNot on fileOccupationIndustryJob Start DateJob End DateBoat maintenanceNot on fileNot on fileNot on file SeamstressNot on fileNot on fileNot on filedocumented as of this encounter Plan of Treatment DateTypeDepartmentCare Team (Latest Contact Info)Srtsgbtrjvi85/28/2026 2:30 PM EDTOffice Visit [facility] Pulmonology [address] [place] [address] [address] [place] [address] Scott Dennis DO [address] [place] [address] FU ASTHMAdocumented as of this encounter Visit Diagnoses Not on filedocumented in this encounter Care Teams Team MemberRelationshipSpecialtyStart DateEnd Date Celia Blank MD PCP - GeneralFamily Medicine06/29/16documented as of this encounter
--- OUTSIDE RECORDS SUMMARY | 2025-02-20 07:43 | XMS_ITS | Clinical Summary ---
Author Organization MySongToYous tem Address [id number] [address] [place] [address] Care Team Providers Care Passenger Solicitor Name Role Phone Celia Blank MD Primary Care Provider [phone] Allergies Active AllergyReactionsCriticalityNoted TiuqCucfmllpOwmjrzowbmwo31/24/2025 Oxycodone-Clpfjbhsolrzo81/24/2025Sulfa (Sulfonamide Antibiotics)10/01/2024 Medications MedicationSigDispense QuantityRefillsLast FilledStart DateEnd [...] mg total) by mouth in the morning.Active aekckvculrf-zmiedlkam-emkvsfoz (TRELEGY ELLIPTA) 100-62.5-25 mcg blister with device [...] Tobacco UseTypesPacks/DayYears UsedDateSmoking Tobacco: Never AssessedChildcare AnswerDate OtrgcueuJhchonlhkAymilkm58/12/2019EmploymentAnswerDate Recorded YnehkcojhgNpddeyy51/12/2019Hunger ScreeningAnswerDate RecordedWithin the past 12 months we worried whether our food would run out before we got money to buy more.Never True10/01/2024Within the past 12 months the food we bought just didn't last and we didn't have money to get more.Never True10/01/2024 CommentsUnknownSex and Gender InformationValueDate RecordedSex Assigned at Not on fileLegal RvgYufqoq74/06/2015 12:10 PM EDTGender IdentityNot on file Sexual OrientationNot on file Last Filed Vital Signs Vital SignReadingTime TakenCommentsBlood Tyquluiw506/76010/01/2024 10:30 AM EDT Ikehn894510/01/2024 9:59 AM FUVItclsdahclw10.9 ??C (98.5 ??F)10/01/2024 7:26 AM EDTRespiratory Ozty323610/01/2024 8:45 AM EDTOxygen Zmuybmsagi60%10/01/2024 10:30 AM EDTInhaled Oxygen Concentration--Ywhruw21.7 kg (169 lb)10/01/2024 7:26 AM EDT Kkbcdn049.2 cm (5' 7 )10/01/2024 7:26 AM EDTBody Mass Index26.47010/01/2024 7:26 AM EDT Plan of Treatment Health MaintenanceDue DateLast DoneCommentsDepression Kgadczslc21/14/1971Tobacco Uuxzdtfel15/14/1971Adult BMI Follow Up Plan1977Zoster (Shingles) Vaccine (1 of 2)2009Fall Risk Dntehwnhs73/14/2024COVID-19 Vaccine (2024- season)512/, 08/11/2020, 07/21/2020Influenza Yovhtod1412/09/2024 Adult BMI Wedskqith08/24/34029810/01/2024DTaP,Tdap and Td Vaccines (2 - Tdap) 9010/07/2018, 02/05/2014RSV ( or age 60+ yrs) (1 - 1-dose 75+ series)2034 Medical Devices Not on file Insurance Care Teams Team MemberRelationshipSpecialtyStart DateEnd Date Celia Blank MD [address] [place] [address] PCP - GeneralFamily Medicine10/01/24
--- OUTSIDE RECORDS SUMMARY | 2025-02-20 07:43 | XMS_ITS | Clinical Summary ---
Author Organization [facility] Address [address] [place] [address] Care Team Providers Care Appeals Reviewer Veteran Name Role Phone Celia Blank MD Primary Care Provider [phone] Allergies Active AllergyReactionsCriticalityNoted DateCommentsLevofloxacinUnknown 03/11/20109189IggxgsopuuNwyelcp46/11/2011Sulfa (Sulfonamide Antibiotics)Unknown 03/11/2010 Medications MedicationSigDispense QuantityRefillsLast FilledStart [...] Social History Tobacco UseTypesPacks/DayYears UsedDateSmoking Tobacco: Every VqhYauyeuwmzr910 Smokeless Tobacco: NeverAlcohol UseStandard Drinks/WeekCommentsNo0 (1 standard drink = 0.6 oz pure alcohol)quit 30 years priorCommentsNoSex and Gender InformationValueDate RecordedSex Assigned at BirthNot on fileLegal SexFemale 03/11/2012 8:33 AM ESTGender IdentityNot on fileSexual OrientationNot on file Last Filed Vital Signs Vital SignReadingTime TakenCommentsBlood Qnkgnnfn380/7211 1:14 PM EST Jwhoo8213 1:14 PM ESTTemperature--Respiratory Tsfy7917 1:14 PM ESTOxygen Npcgaumxke76%03/09/2016 1:14 PM ESTInhaled Oxygen Concentration-- Dlheau57.5 kg (173 lb)03/09/2016 1:14 PM LZTTfgiyn855.2 cm (5' 7 )03/09/2016 1:14 PM ESTBody Mass Index27.111 1:14 PM EST Plan of Treatment Health MaintenanceDue DateLast DoneCommentsAnxiety Rkzlqbykm66/14/1977Depression Ljrszulzk25/14/1977Hepatitis C Uypuiyowz59/14/1977DTaP,Tdap,Td Vaccine (1 - Tdap)1978Mammogram Oawgdoouc60/14/1999CT Tacnvzjvvrwq02/14/2004Cologuard (FIT-DNA)01/22/20040122Efnhlknvazf93/14/2004Colorectal Cancer Oouhukjhc00/14/2004 Fecal Occult Blood01/22/2004Lipid Vjrxkwamj23/14/1559Kbzoropusmypu92/14/2004 Pneumococcal Vaccine: 50+ (1 of 1 - PCV)2009Shingrix Vaccine (1 of 2) 2009Diabetes Bicnylmuw24, 03/11/2010one Density Jbvofgewl28/14/2024dvance Directive Gxaqkvkpoh03/01/2025ovid-19 Vaccine ( - 2024- season)2024Influenza Vaccine (#1)2024RSV Vaccine (1 - 1-dose 75+ series)2034 Procedures Procedure NamePriorityDate/TimeAssociated DiagnosisCommentsCOMPREHENSIVE METABOLIC FPTMVIxiiuyf83/02/2010 3:48 PM EST Hypothyroidism Burning pain Neck swelling Neck stiffness Shortness of breath History of smoking Disturbance of skin sensation from Last 3 Months or Most Recently Relevant to Health Maintenance Results * COMP METABOLIC PANEL (03/11/2010 3:48 PM EST)ComponentValueRef RangeTest MethodAnalysis TimePerformed AtPathologist SignatureProtein, Total6.86.0 - 8.4 g/dLKINDRED [facility] LABORATORYAlbumin4.73.5 - 5.0 g/dLKINDRED [facility] LABORATORYCalcium9.88.5 - 10.5 mg/dLKINDRED HOS[facility] Bilirubin, Total0.30.0 - 1.5 mg/dLKINDRED [facility]OS[facility] LABORATORYAlkaline Rvtrrlblska5994 - 150 U/LCD[facility] BWIVCLISFXVHJ659 - 40 U/L [facility] QBQAOWLZYHKrmpqbx8287 - 100 mg/dLKINDRED [facility] KMAXNVFJHYQYW186 - 25 mg/dLKINDRED [facility] LABORATORYCreatinine0.940.70 - 1.40 mg/dLKINDRED HOS[facility]ITAL [facility] SKQBPHKMGIRlynpm677506 - 148 mmol/LCDETWILER [facility] MAIN LABORATORYPotassium4.83.5 - 5.0 mmol/LCDETWIL[facility] ZKJIZQKHTJFfbiltsr93485 - 110 mmol/LCDETWIL[facility] BVVMCUTETUCI26275 - 32 mmol/LCDETWIL[facility] MAIN LABORATORYAnion Cfy745 - 15 mmol/LCD[facility] LWIDHLRIGEATU058 - 45 U/LCDETWILER [facility] MAIN LABORATORYeGFR- >60[facility] LABORATORYeGFR-All Other Races>60. [facility] MAIN LABORATORYComment: eGFR (Estimated GFR) Units of [...] StatusDavihanna Drew MDLABORATORYFinal ResultPerforming OrganizationAddressCity/State/ZIP CodePhone Number [facility] [address] [place] [address] from Last 3 Months or Most Recently Relevant to Health Maintenance Care Teams Team MemberRelationshipSpecialtyStart DateEnd Date Celia Blank MD [address] [place] [address] PCP - GeneralFamily Aransbsu08/30/10
--- OUTSIDE RECORDS SUMMARY | 2025-02-20 07:43 | XMS_ITS | Clinical Summary ---
Author Organization [facility] Address [address] [place] [address] Care Team Providers Care Labor Relations Worker Name Role Phone Celia Blank MD Primary Care Provider [phone] Allergies Active AllergyReactionsCriticalityNoted DateCommentsAlendronate SodiumHives, Hslyzhj1712/23/2024larithromycinHives,Ieemfpk0703/29/2024 Other Reaction(s): Hives, Unknown DhkdekyyujruiMvcrmia31/26/2025 Other Reaction(s): Unknown OxycodoneHives,Nausea And TqaxgbsaLgw73/30/2025 Percocet Oxycodone-AcetaminophenNausea Only06/05/2024QuinolonesHives,Rash,UnknownLow 03/11/2010 Other Reaction(s): Hives, Other (See Comments), Unknown, Unknown Sulfa (Sulfonamide Antibiotics)Unknown,SybcjGssszg44/02/2010 Unknown - she was told not to take it d/t unknown reaction as a child Other Reaction(s): Other (See Comments), Unknown Medications MedicationSigDispense QuantityRefillsLast FilledStart DateEnd DateStatus dezqzocidts-bwdiycxwx-nuignimq (Trelegy Ellipta) 200-62.5-25 mcg blister with device Inhale 1 puff in the morning.5Active albuterol 90 mcg/actuation inhaler Inhale 2 puffs every 4 (four) hours if needed.4Active buPROPion XL (Wellbutrin XL) 300 mg 24 hr tablet Take 300 mg by mouth in the morning.5Active HYDROcodone-acetaminophen ([place]) 5-325 mg tablet Take 1 tablet by mouth every 6 (six) hours if needed.12/17/2021ctive omeprazole (PriLOSEC) [address] capsule Take 20 mg by mouth in the morning.03/11/2010ctive Zanaflex 4 mg tablet 4 mg every 6 (six) hours if needed.03/09/2016Active Active Problems ProblemNoted DateDiagnosed DateAntral ulcer02/17/20255382Npgeow03/10/2025ilateral knee pain02/17/2025ladder epglcr0502/17/2025ladder mass02/17/2025MI 27.0-27.9,adult02/17/2025hronic back pain02/17/2025hronic obstructive pulmonary disease, kujrzukrcfa17/10/2025igarette nicotine dependence with nicotine-induced xbqifzuy51/10/9417Yyosdpdmiw36/10/2025Early fjccjjc2902/17/2025 Encounter for nmtraavuicxr06/10/2025Epigastric pain02/17/2025Febrile illness 02/17/20251231Sznpvupxhggnfia74/10/2025hronic GERD02/17/2025Gross hematuria 02/17/20259293Ujkfjhoc50/10/2964Mnzgbctdm61/10/2025History of UTI02/17/2025 Incomplete bladder vartwvch65/10/2025Joint pain02/17/2025Kidney stone02/17/2025 Left flank pain02/17/2025Lumbar radiculopathy, oqevdmi5802/17/2025Menopause 02/17/2025Moderate persistent asthma, vcjdlrksqcojg55/10/2025Multiple pulmonary mitstql8102/17/20256324Xpurnncmra48/10/2025Pain in posterior right lower extremity 02/17/2025Primary osteoarthritis of both knees02/17/2025Rib pyeftnhj60/10/2025 Right thyroid mmiude5102/17/2025Sigmoid pazifnkvrzplxd50/10/5069Clodzk87/10/2025 Tick bite02/17/20250456Nyarlw85/10/2025UTI (urinary tract infection)02/17/2025 Vaginal yeast dlgvbrvto49/10/2025Very low density gmkhdjmtekfimh77/10/2025Long term (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 of inhaled zscjntud76/30/2025 Encounters DateTypeDepartmentCare ErhtThtagtdvcty31/12/2025 9:00 AM ESTOffice Visit [facility] [address] [place] [address] Tessa Brannon MD Preoperative clearance (Primary Dx); Dyspnea on exertion; Chronic obstructive pulmonary disease, unspecified COPD type (CMS/HCC)from Last 3 Months Family History RelationNameStatusCommentsFatherDeceasedMotherDeceased Social History Tobacco UseTypesPacks/DayYears UsedDateSmoking Tobacco: Every DayCigarettes Smokeless Tobacco: NeverCommentsUnknownSex and Gender InformationValue Date RecordedSex Assigned at MtfjeBgzeyb09/07/2025 10:59 AM ESTLegal SexFemale 02/12/2025 12:01 PM ESTGender IwljvluzCgrouo21/07/2025 10:59 AM ESTSexual OrientationHeterosexual or Vzyydfsy32/07/2025 10:59 AM EST Last Filed Vital Signs Vital SignReadingTime TakenCommentsBlood Kdcmejqp565/80104/21/2024 8:58 AM EST Jfsfa588502/19/2025 8:58 AM ESTTemperature--Respiratory Rate--Oxygen Amzcrauwfw27% 02/19/2025 8:58 AM ESTInhaled Oxygen Concentration--Grkytg64.4 kg (164 lb) 02/19/2025 8:58 AM AUHWuszah616.2 cm (5' 7 )02/19/2025 8:58 AM ESTBody Mass Index25.6902/19/2025 8:58 AM EST Plan of Treatment Health MaintenanceDue DateLast DoneCommentsCT Ginhnvekvmlf1959FIT-DNA 1959FIT1959FOBT1959Medicare Annual Wellness (AWV)1959 Nwdyrklqihsug1959Depression Zqdfmfgvn65/14/5203Yrnaerost72/14/1999Zoster Vaccines (1 of 2)2009Fall Risk Sitdppsbn57/14/2024dult Kogicgk3202/06/2024 02/05/2014COVID-19 Vaccine (4 - 2025-26 season)5105/30/2020, 08/11/2020, 07/21/2020Influenza Vaccine (#1)12/09/20246559Madrhnivebk79 Colorectal Cancer Vmefxunoq79/05/2032neumococcal Vaccine: 50+ YearsCompleted 12/13/2024HIB VaccinesAged OutNo longer eligible based on patient's age to complete this topicHPV VaccinesAged OutNo longer eligible based on patient's age to complete this topicIPV VaccinesAged OutNo longer eligible based on patient's age to complete this topicMeningococcal B VaccineAged OutNo longer eligible based on patient's age to complete this topicMeningococcal VaccineAged OutNo longer eligible based on patient's age to complete this topicRotavirus Vaccines Aged OutNo longer eligible based on patient's age to complete this topic Insurance MemberSubscriberPlan / Payer (Effective 2025-Present)Name:Cristine Manley Member ID:[id number] Relation to Subscriber:SelfName:Cristine Manley Subscriber ID:[id number] Payer ID:[id number] Group ID:Not on file Type:Medicare Address: [facility] [place] [id number] Care Teams Team MemberRelationshipSpecialtyStart DateEnd Date Celia Blank MD [address] PCP - Eoybggc14/5/25
--- OUTSIDE RECORDS SUMMARY | 2025-02-20 07:43 | XMS_ITS | Patient Health Record ---
Author Organization [facility] Address [address] [place] [address] Care Team Providers Care Infirmary Attendant Name Role Phone Celia Garrison M.D. Primary Care Provider Unavail able Jose L Vance Unavailable [phone] Cecil Malik Unavailable [phone] xxSravani Traylor Unavailable [phone] Allergies Allergen (clinical drug ingredient) Drug/Non Drug [...] SAVER, PRONE, MARTHA TABLE, SURGALIGNDiagnosis:M48.062 STENOSISAdmission Type: OUTPATIENTAnesthesia Type/CPNB:GENERALPost-op Appointment Date:04/17/25 @ 1:30PM FINDLAYLab [facility] Date/Time:ASAPScheduler:GAYLElearance Physician:DR GARRISON 02/12/25 @ 11AMClearance Appt Date/TSAMSA 02/07/25 @ [...] 10:10:32 AM Interpretation: Performing Lab: Notes/Report: [place] [address] [phone] x10*3/mcLPT Reviewed date:08/20/2024 10:10:32 AM Interpretation: Performing Lab: Notes/Report: [place] [address] [place], [place] [address]PT10.410.2-12.9 secondsINR0.9<=3.5 ratio INR has no normal range. INR Therapeutic range is: 2.0-3.0 (AF, CVA, TIAs, DVT prophylaxis, acute DVT) 2.5-3.5 ([facility] heart valves, recurrent thrombosis/emboli) PTT Reviewed date:08/20/2024 10:10:32 AM Interpretation: Performing Lab: Notes/Report: [place] [address] [facility]OSPITALPTT30.825.1-36.5 seconds Reason For Referral Reason NO AUTH REQ......... ......................NOT SCHEDULED....................................MCR/ALLSTATE ct lumbar myelogram to be done at [facility] Diagnosis 1 Retrolisthesis (M43. 10) Referral Organization [facility] Referring Provider First Name Jose L Referring Provider Last Name St Navarrete Referring Provider Speciality Orthopedic Surgery Referred Organization [facility] Scheduling Procedure 1 CT lumbar spine; W/ contrast material (89510) General Notes Luiza Camilo 2024 10:01:53 AM >, Amira Bradford 07/12/2024 10:13:12 AM > MYELOGRAM OF WHAT PART?, Luiza Camilo 07/12/2024 11:00:16 AM >SORRY LUMBAR, Shari Bradfordyla 07/12/2024 11:03:14 AM > THANK YOU, MEDICARE PARTS A & B ACTIVE AND EFFECTIVE 01/09/24 PER [employer] WITH [employer] SECONDARY. NO AUTHORIZATION REQUIRED. FAXED TO ISABE[facility]A.Leslee Dawn 07/12/2024 01:28:10 PM >[facility] DOES NOT DO CT MYELOGARM, SO PATIENT WOULD LIKE TO GO TO [facility]. ORDER FAXED, Rozina Cruz 07/12/2024 02:45:10 PM > Referral Priority Routine Reason NO AUTH REQ.........................................03/04/25............................ ...........[facility]/Zafu L3-S1 DECOMPRESSION AND FUSION, L5-S1 TLIF 69187, 71849 x2, 96842, 92707, 79948, 04077, 38999, 22142 Diagnos is 1 Lumbar stenosis with neurogenic claudica tion (M48.062) Diagnos is 2 Radiculopathy, lumbosacral region (M54.1 7) Diagnos is 3 Degeneration of intervertebral disc of l umbar region with discogenic back pain (M51.360) Diagnos is 4 Spondylolisthesis, lumbar region (M43.16 ) Referra l [facility] Referri jack Provide r First Name Jose L santiago Provide r Last Name St Britney santiago Provide r Special ity Orthopedic Surgery Referre d [facility] Referre d Address [address] [place] [address] 214,[place] Procedu re 1 Arthrodesis, PLIF w/ PSF including shane ectomy and/or discectomy, sufficient to prepare interspace (other than for decompression), single interspace and segment; lumbar (35236) Procedu re 2 Arthrodesis single, each addn'l level, p osteriolateral technique (26896) Procedu re 3 TRAN FACETC/FRMT ARTHRD LUM 1 (89193) Procedu re 4 Laminectomy, facetectomy and foraminotom y single lumbar (83485) Procedu re 5 Laminectomy, facetectomy and foraminotom y additional vertebral segment (80662) Procedu re 6 Posterior segmental instrumentation, 3 t o 6 segments (87216) Procedu re 7 INSJ BIOMECHANICAL DEVICE (41514) Procedu re 8 Autograft for spine surgery only; local obtained from same incision (11564) General Notes Luiza Camilo 01/29/2025 08:34:14 AM >, Luiza Camilo 01/29/2025 10:52:25 AM >, Amira Bradford 02/06/2025 10:19:38 AM > MEDICARE PARTS A & B ACTIVE AND EFFECTIVE 01/09/24 PER [employer]AILITY WITH [employer] SECONDARY. NO AUTHORIZATION REQUIRED. THIS NEEDS TO BE OUTPATIENT, PLEASE CHANGE AND SEND BACK., Luiza Camilo 02/11/2025 08:10:08 AM >CHANGED TO OUTPATIENT WITH Sanchez COOK Kayla 02/11/2025 09:45:03 AM > THANK YOU, FAXED OVER TO [facility]. Referra levon Ceron y Routine Medications Medication SIG (Take, Route, Frequency, Duration) Notes Start Date End Date Status tiZANidine ActiveHYDROcodoneActivealbuterolActiveTrelegy ElliptaActivePriLOSECActive buPROPionActive Social History Tobacco Use: Social History Observation Description Date Details (start date - stop date) Light tobacco s hortencia NA - NA Smoking History Question Answer Notes Smoking Status light tobacco smoker AUDIT-C (Standard) Question Answer Notes Did you have a drink containing alcohol in the p ast year? No Problems Problem Type SNOMED Code ICD Code Onset Dates Problem Status W/U Status Risk Notes Problem Acquired spondylolis thesis (285864786) Spondylolisthesis, lumbar region (M43.16) ActiveconfirmedProblemLumbosacral radiculopathy (4308093)Radiculopathy, lumbosacral region (M54.17)ActiveconfirmedProblemNeurogenic claudication (383557855)Lumbar stenosis with neurogenic claudication (M48.062)Activeconfirmed ProblemAcquired deformity of spine (68274073)Neuroforaminal stenosis of lumbar spine (M48.061)ActiveconfirmedProblemDegeneration of intervertebral disc of lumbar region with discogenic back pain (M51.360)Activeconfirmed Vital Signs Height 5'7 in 02/06/2025 Uqjcno275 lbs1MI27.561 Procedures Procedure Date Ordered Date Performed Result Body Sit e EKG 01/29/2025 N/A Encounters Encounter Location Date Provider Diagnosis [facility] Office [address] [place] [phone] 02/06/2025 Cecil Malik Lumbar stenosis with neurogenic claudication M48.062 ; Radiculopathy, lumbosacral region M54.17 ; Degeneration of intervertebral disc of lumbar region with discogenic back pain M51.360 and Spondylolisthesis, lumbar region M43.16 [facility] Office [address] [place] [address] [place] [address] 07/12/2024 [facility] Spondylolisthesis, lumbar region M43.16 and Radiculopathy, lumbosacral region M54.17 [facility] Office [address] [place] [address] 10/18/2024 Cecil Malik Degeneration of intervertebral disc of lumbar region with discogenic back pain M51.360 and Lumbar stenosis with neurogenic claudication M48.062 [facility] [address] [place] [address] 01/29/2025 Jose L Vance Radiculopathy, lumbosacral region [...] disease and facet arthropathy with stenosis and tuuqeoxpgfulk95/11/2025Degeneration of intervertebral disc of lumbar region with discogenic back pain (ICD-10 - M51.360)1. L3-S1 degenerative disc disease and facet arthropathy with stenosis and zynhjxcqgpanj77/22/2025Radiculopathy, lumbosacral region (ICD-10 - M54.17)01/29/2025Lumbar stenosis with neurogenic claudication (ICD-10 - M48.062)02/06/2025Radiculopathy, lumbosacral region (ICD- 10 - M54.17)1. L3-S1 degenerative disc disease and facet arthropathy with stenosis and scjlhfeqvsghj81/30/2025Lumbar stenosis with neurogenic claudication (ICD-10 - M48.062)1. L3-S1 degenerative disc disease and facet arthropathy with stenosis and tilxtocpngjsx80/30/2025Degeneration of intervertebral disc of lumbar region with discogenic back pain (ICD-10 - M51.360)1. L3-S1 degenerative disc disease and facet arthropathy with stenosis and byrwdqqivrvzk39/22/2025 Degeneration of intervertebral disc of lumbar region with discogenic back pain (ICD-10 - M51.360)02/06/2025Spondylolisthesis, lumbar region (ICD-10 - M43.16)1. L3-S1 degenerative disc disease and facet arthropathy with stenosis and gotbykscmnyew86/22/2025Spondylolisthesis, lumbar region (ICD-10 - M43.16) 02/06/2025Other Plan established by Dr. Lee. At this [...] disease and facet arthropathy with stenosis and jxpwsefpoclga77/04/2025Other For the patient's symptoms of her bilateral [...] Name Order Date Chest 2 views - [id number] 01/29/2025 CBC 01/29/2025 PT/PTT 01/29/2025 BMP 01/29/2025 Surgery Scheduling 01/29/2025 MRSA (Bilateral Nares) PCR 01/29/2025 EKG 01/29/2025 CT Myelogram - Lumbar Spine 07/12/2024 Next Appt Details Provider Name:Jose L Booker Cl air, 02/27/2025 09:10:00 AM, [address] [place] [address], [phone], Provider Name:Jose L Danw St Cl air, 03/04/2025 01:20:00 PM, [facility] [place], [place], [phone], Provider Name:Jose L Dawn St [facility], 04/17/2025 01:30:00 PM, [address] [place] [address], [phone], Insurance Providers Payer Name Payer Address Payer Phone Subscriber Number Group Number Insured Name Patient Relationship to Insured Coverage Start Date Coverage End [place] [address] [place] [address] [id number] CATINA MANLEYelf - patient [facility] the [facility] [address] [address] [place] [id number], DIANESelf - patient is the [id number] 2024 Medical (General) History Medical History History [...] History Surgery Date(Month/Year) Bunionectomy Ovaries removedTonsillectomyBack surgery T12/R2Bqdjaztirggajcq History Reason Date(Month/Year) Kidney infection Back surgeryOvaries Removed
--- OUTSIDE RECORDS SUMMARY | 2025-02-20 07:43 | XMS_ITS | Patient Health Record ---
Author Organization [facility] in [place] Address [address] [place] [address] Care Team Providers Care Field Sales Executive Name Role Phone Celia Blank MD Primary Care Provider Scott Juan Unavailable [phone] Allergies Allergen (clinical drug ingredient) Drug/Non Drug [...] Notes Problem Uncomplicated modera te persistent asthma (373976500) Moderate persistent asthma, uncomplicated (J45.40) ActiveconfirmedProblemLong-term current use of inhaled steroid (029206288)residential (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 of 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 (Z79.51)ActiveconfirmedProblemMental disorder caused by drug (836693381)Cigarette nicotine dependence with nicotine- induced disorder (F17.219)ActiveconfirmedProblemMultiple pulmonary nodules (974992026)Multiple pulmonary nodules (R91.8)Activeconfirmed Vital Signs Heart Rate 80 /min 10/17/2024 Aijwbqykgwc54.6 degrees Bkgiebpeam58/10/2025Respiratory Rate18 /min10/17/2024 Mevqtyiz65 %10/17/2024lood pressure mm Hg10/17/20249503Bjjmin59.0 in 10/17/2024lood pressure tjjmebco649 mm Hg10/17/20248022Kotupb258.8 lbs10/17/2024MI 26.9 kg/m210/17/2024 Procedures Procedure Date Ordered Date Performed Result Body Sit e Smoking/Tobacco Counseling 3 min up to 10-performed 10/17/2024 10/17/2024 N/A Encounters Encounter Location Date Provider Diagnosis [facility] [address] [place] [address] 10/17/2024 Scott Dennis Moderate persistent asthma, uncomplicated J45.40 ; Cigarette nicotine dependence with nicotine-induced disorder F17.219 ; Multiple pulmonary nodules R91.8 ; residential (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 of 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 Z79.51 and Encounter for screening for malignant neoplasm of respiratory organs Z12.2 [facility] [address] [place] [address] 07/15/2024 [facility] [id number] [place] [address]/09/2025 [facility] Assessments Encounter Date Diagnosis (ICD Code) [...] on Wellbutrin XL first at 150mg dose [id number] dose. Had some success decreasing to 1/2ppd [...] End Date [place] [address] [place] [address] [id number] Karina Manley - patient is the insuredALLSTATE MEDICARE SUPPLEMENTPO [address] [address] [place] [id number], DianeSelf - patient is the insured Medical (General) History Medical History History ICD Code Moderate persistent asthma, uncomplicate d J45.40 Multiple pulmonary nodules R91.8 OA (osteoarthritis) M19.90 Cigarette nicotine dependence with nicot ine-induced disorder F17.219 Surgical History Surgery Date(Month/Year) thoracic spine surgery cataract-lens implantsbunionectomytonsillectomyoopherectomy
--- OUTSIDE RECORDS SUMMARY | 2025-02-20 07:44 | XMS_ITS | CCD ---
Author Organization [facility] CliniSyfl Care Team Providers Care Fur Pointer Name Role Phone CORNELIUS GARRISON Primary Care Physician [phone] MISC, DR MIDDLETON Primary Care Unavailable REQUEST, DR REYES LISTED Attending Unavaila ble REQUEST, DR REYES LISTED Consulting Unavaila ble REQUEST, DR REYES LISTED Admitting Unavaila skyler GARRISON, DR CORNELIUS Ward Primary Care Unavailable [...] Provider Cornelius Garrison MD Primary Care Provider [phone] Ofelia Arceo MD Unavailable Cornelius Garrison MD Primary Care Provider Alexandro Galvez DO Attending Provider Cornelius Garrison MD Attending Provider Cornelius Garrison MD Primary Care Provider Geoff Walker DO Unavailable [phone] GEOFF WALKER Attending Unavailable CORNELIUS GARRISON Referring Unavailable KANE PARKER Attending Unavailable OFELIA ARCEO Referring Unavailable Cornelius Garrison MD Attending Provider CORNELIUS GARRISON Primary Care Unavailable TYRONE HAMM Attending Unavailable Cornelius Garrison MD Primary Care Provider [phone] Cornelius Garrison MD Attending Provider Vera Hdez CMA Attending Provider Unavailtomas Oleary MD, Carlin Waldrop Attending Provider Delvin Campbell DO Attending Provider Gianni France DO Attending Provider Woody TAVERAS, Brie Attending Provider Сергей Arnett DO Attending Provider Jone Gonsalves MD Attending Provider Raheem Mckeon DO Attending Provider NKANSAH-AMANKRA, BRIE Attending Unavail able Roselyn Shah Attending Unavailable GalRoselyn saab Attending Unavailable CORNELIUS GARRISON Referring Unavailable NKANSAH-AMANKRA, BRIE Referring Unavail able NKANSAH-AMANKRA, BRIE Attending Unavail able Aubree Perez Attending Unavailable Aubree Perez Referring Unavailable GalRoselyn saab Attending Unavailable CORNELIUS GARRISON Referring Unavailable NKANSAH-AMANKRA, BRIE Attending Unavail able Cornelius Garrison MD Primary Care Provider Cornelius Garrison MD Attending Provider [phone] Vera Hdez CMA Attending Provider Unavaila ble Cornelius Garrison Admitting Unavailable Cornelius Garrison Attending Unavailable Bladimir, Cornelius E Admitting Unavailable Garrison Cornelius E Attending Unavailable Nkansah-Amankra, Brie Admitting Unavail able Nkansah-Amankra, Brie Attending Unavail able Cornelius Garrison E Primary Care Unavailable Сергей Arnett Admitting Unavailable Сергей Arnett Attending Unavailable Garrison, Cornelius E Primary Care Unavailable GarrisonCornelius E Attending Unavailable Garrison, Cornelius E Admitting Unavailable GarrisonCornelius E Attending Unavailable Garrison, Cornelius E Admitting Unavailable Alexandro Galvez Admitting Unavailable Alexandro Galvez Attending Unavailable Bladimir, Cornelius E Primary Care Unavailable Garrison, Cornelius E Admitting Unavailable Garrison, Cornelius E Primary Care Unavailable Cornelius Garrison Attending Unavailable Cornelius Garrison MD Primary Care Provider Cornelius Garrison MD Attending Provider [phone] Сергей Arnett DO Attending Provider Jone Gonsalves MD Attending Provider Raheem Mckeon DO Attending Provider Gianni France DO Attending Provider Vera Hdez CMA Attending Provider UnavailJose L Lopez MD Attending Provider Denilson TAVERAS, Andrius Wagoner Attending Unavailable Bladimir TAVERAS, [facility] Unava ilable Denilson TAVERAS, Andrius Wagoner Attending Unavailable Bladimir TAVERAS, [facility] Unava ilable Denilson TAVERAS, Andrius Wagoner Attending Unavailable Bladimir TAVERAS, [facility] Unava ilable Bladimir TAVERAS, [facility] Unava ilable Denilson TAVERAS, Andrius Wagoner Attending Unavailable Denilson TAVERAS, Andrius Wagoner Attending Unavailable Bladimir TAVERAS, [facility] Unava ilkrystal Garrison MD, [facility] Unava ilable Denilson TAVERAS, Duong Wagoner Attending Unavailable King DEMARCUS, Ofelia Grace Attending Unavailab Tuan TAVERAS, [facility] Unava ilkrystal Garrison MD, [facility] Unava ilable King DEMARCUS, Ofelia Grace Attending Unavailab jass Vance MD, Jose L Dawn Attending Unavaildusty Garrison MD, [facility] Unava ilable King DEMARCUS, Ofelia Grace Attending Unavailab jass Garrison MD, [facility] Unava ilable Ofelia Arceo PA-C Admitting Unavailab Tuan TAVERAS, [facility] Unava ilable Alexey Morgan Admitting Unavailable Layton TRACY, Sravani Benson Attending U navailable Allergies Allergy ClassificationReported Allergen(s)Allergy TypeDate of OnsetReaction(s) Facility (7 sources)Acetaminophen / oxyCODONE; Translations: [acetaminophen-oxycodone] Drug AllergyNausea (finding)[facility] [place] (10 sources)Alendronate; Translations: [alendronate]Drug Ylnrrin90-14-0247Ozqkwt pain (finding)[facility] [place] (20 sources)Clarithromycin; Translations: [clarithromycin]Drug Cqpkyqw07-19-5512 Unknown (qualifier value)[facility] (20 sources)levoFLOXacin; Translations: [levofloxacin]Drug Smekxso98-56-8929 Eruption of skin (disorder)[facility] (8 sources)Sulfonamides (Antibiotic); Translations: [sulfa drugs]Drug allergy Unknown (qualifier value)[facility] (1 source)Acetaminophen / oxyCODONEDrug Abgdeom58-00-7003[facility] (1 source)AlendronateDrug Zdvthos84-34-5048EkoZanes[facility] (1 source)ClarithromycinDrug Phdymwx95-16-6195HuzZanes[facility] (1 source)levoFLOXacinDrug Fsgkmff70-58-4335UwpZanesville City [facility] (1 source)Quinolones (Antibiotic)Drug allergy (disorder)82-90-6730Ptg [facility] (1 source)Sulfonamides (Antibiotic)Drug allergy (disorder)17-28-3010Yxg [facility] (1 source)AcetaminophenDrug Grfgpwe76-67-8627YosxwDxfgmsjbcMercy Hospital (20 sources)AlendronateDrug Ipuheic74-00-2972UcnjfIuciretmpMercy Hospital (20 sources)oxyCODONEDrug Qlkxsny52-82-8906UtvamOancjtcyxMercy Hospital (20 sources)Sulfonamides (Antibiotic); Translations: [SULFA (SULFONAMIDE ANTIBIOTICS)]Allergy to dybpmxmck54-75-9867Axtzxnt:as a young child, pt. cannot recall [facility] (20 sources)Biaxin XL *MACROLIDES*Allergy to traeoladp77-41-9605CwqbhArjunhpsmMercy [facility] (4 sources)Acetaminophen / oxyCODONE; Translations: [OXYCODONE-ACETAMINOPHEN] Drug Nzjwfhi52-82-9923Ihipxn OnlyNOS[facility] (3 sources)ClarithromycinAllergy to ytyyinuse98-10-0700[facility] (3 sources)Lactobacillus acidophilusDrug Kbesuuu01-53-5839[facility] (3 sources)Quinolones (Antibiotic)Drug Mykhbesondq46-38-6220GvnvSCQD Healthcare (3 sources)Sulfonamides (Antibiotic)Drug Rqjjpytprwa40-83-1770[facility] (7 sources)fluoroquinolone antibioticsAllergy to aydjqobia43-62-2475NgnqjWvumedicine [facility] (1 source)Ciprofloxacin; Translations: [Cipro]Drug [facility]ergy[facility] ([facility] source)symbalta; Translations: [symbalta]Propensity to adverse reactions to drug (disorder)[facility] Medications Current Medications MedicationDrug Class(es)DatesSig (Normalized)Sig (Original)acetaminophen 325 mg / HYDROcodone bitartrate 5 mg oral tablet (20 sources)Opioid AgonistStart: 11-17-2024 End: 57-49-8046szdw 1 tablet by mouth three times dailyHydrocodone-Acetaminophen 5-325 mg tablet Active 1 TAB PO Three times daily 90 30 0 2025 Lumbar back pain Low back pain, unspecified Complies with drug therapyStart: 10-18-2024 End: 03-21-5341dold 1 tablet by mouth three times dailyHydrocodone-Acetaminophen 5-325 mg tablet Discontinued 1 TAB PO Three times daily 90 30 0 October 18, 2024 November 15, 2024 2:06pm Lumbar back pain Low back pain, unspecifiedStart: 04-21-2024 End: 65-96-1852tddm 1 tablet by mouth three times dailyHydrocodone-Acetaminophen 5-325 mg tablet Discontinued 1 TAB PO Three times daily 90 30 0 September 20, 2024 October 16, 2024 8:40am Lumbar back pain Low back pain, unspecifiedStart: 04-20-2024 End: 63-54-2578xray 1 tablet by mouth three times dailyHydrocodone-Acetaminophen 5-325 mg tablet Discontinued 1 TAB PO Three times daily 90 30 0 April 20, 2024 April 19, 2024 2:01pm Lumbar back pain Low back pain, unspecifiedStart: 04-20-2024 End: 35-92-1233jmfn 1 tablet by mouth three times dailyHydrocodone-Acetaminophen 5-325 mg tablet Discontinued 1 TAB PO Three times daily 90 30 April 20, 2024 April 19, 2024 3:01pmStart: 04-20-2024 End: 58-75-5694idrk 1 tablet by mouth three times dailyHydrocodone-Acetaminophen 5-325 mg tablet Discontinued 1 TAB PO Three times daily April 20, 2024 April 19, 2024 3:01pmStart: 04-20-2024 End: 04-54-9501otvp 1 tablet by mouth three times dailyHydrocodone-Acetaminophen 5-325 mg tablet Discontinued 1 TAB PO Three times daily April 20, 2024 April 19, 2024 3:01pmStart: 04-20-2024 End: 17-67-8903nwwr 1 tablet by mouth three times dailyHydrocodone-Acetaminophen 5-325 mg tablet Discontinued 1 TAB PO Three times daily April 20, 2024 April 19, 2024 3:01pmStart: 04-20-2024 End: 43-06-6482trwl 1 tablet by mouth three times dailyHydrocodone-Acetaminophen 5-325 mg tablet Discontinued 1 TAB PO Three times daily April 20, 2024 April 19, 2024 3:01pmStart: 04-20-2024 End: 24-87-7883jbcg 1 tablet by mouth three times dailyHydrocodone-Acetaminophen 5-325 mg tablet Discontinued 1 TAB PO Three times daily April 20, 2024 April 19, 2024 3:01pmStart: 04-20-2024 End: 98-01-2437ksdq 1 tablet by mouth three times dailyHydrocodone-Acetaminophen 5-325 mg tablet Discontinued 1 TAB PO Three times daily April 20, 2024 April 19, 2024 3:01pmStart: 04-20-2024 End: 45-85-3872xyhh 1 tablet by mouth three times dailyHydrocodone-Acetaminophen 5-325 mg tablet Discontinued 1 TAB PO Three times daily April 20, 2024 April 19, 2024 3:01pmStart: 04-20-2024 End: 51-81-2404jlfm 1 tablet by mouth three times dailyHydrocodone-Acetaminophen 5-325 mg tablet Discontinued 1 TAB PO Three times daily April 20, 2024 April 19, 2024 3:01pmStart: 04-20-2024 End: 36-00-4797emcm 1 tablet by mouth three times dailyHydrocodone-Acetaminophen 5-325 mg tablet Discontinued 1 TAB PO Three times daily April 20, 2024 April 19, 2024 3:01pmStart: 04-20-2024 End: 33-90-6523ulnr 1 tablet by mouth three times dailyHydrocodone-Acetaminophen 5-325 mg tablet Discontinued 1 TAB PO Three times daily April 20, 2024 April 19, 2024 3:01pmStart: 04-20-2024 End: 10-02-7905axxq 1 tablet by mouth three times dailyHydrocodone-Acetaminophen 5-325 mg tablet Discontinued 1 TAB PO Three times daily April 20, 2024 April 19, 2024 2:01pmStart: 04-20-2024 End: 63-83-4670lkbz 1 tablet by mouth three times dailyHydrocodone-Acetaminophen 5-325 mg tablet Discontinued 1 TAB PO Three times daily April 20, 2024 April 19, 2024 2:01pmStart: 08-03-2023 End: 33-39-0868ccjs 1 tablet by mouth three times dailyHydrocodone-Acetaminophen 5-325 mg tablet Discontinued 1 TAB PO Three times daily 30 March 22, 2024 April 19, 2024 2:01pm Lumbar back pain Low back pain, unspecifiedStart: 70-86-4810ngmj 1 tablet by mouth three times dailyHydrocodone-Acetaminophen Active 1 TAB PO Three times daily August 03, 2023Start: 12-17-2021 End: 87-69-9469kivu 1 tablet by mouth three times dailyHydrocodone-Acetaminophen 5-325 mg tablet Discontinued 1 TAB PO Three times daily 30 May 26, 2023 June 26, 2023 11:47am Lumbar back pain Low back pain, unspecifiedtake 1 tablet by mouth in the morning, then take 1 tablet by mouth in the evening, then take 1 tablet by mouth at bedtimeHYDROcodone-acetaminophen (Points) 5-325 MG tablet Take 1 tablet by mouth in the morning and 1 tablet in the evening and 1 tablet before bedtime. Ddcmas40 hr buPROPion hydrochloride 300 mg extended release oral tablet (20 sources)AminoketoneStart: 15-50-8393zfhv 1 tablet by mouth once daily Bupropion Hcl 300 mg tablet extended release 24 hr Active 300 MG PO Daily 90 90 4 [place] [address], 960281:00am Cigarette nicotine dependence with nicotine-induced disorder Nicotine dependence, cigarettes, with unspecified nicotine-induced disorders Complies with drug therapyStart: 03-11-2024 End: 60-94-2023wyag 1 tablet by mouth once dailyBupropion Hcl 150 mg tablet extended release 24 hr Discontinued 150 MG PO Daily March 11, 2024 12:00am April 15, 2024 3:39pm Cigarette nicotine dependence with nicotine- induced disorder Nicotine dependence, cigarettes, with unspecified nicotine- induced disordersdiclofenac potassium 50 mg oral tablet (1 source)Nonsteroidal Anti-inflammatory DrugStart: 01-91-2110ofhy 1 tablet by mouth twice dailydiclofenac potassium 50 mg oral tablet 50 mg = 1 tab(s), Oral, BID, Refills(s) 0 Start Date: 12/17/21Status: Ordered Xenmkohgzxy-Cipuxdqay-Txceucrr (20 sources)Start: 42-06-8661Xxbxgxowtwh-Umeclidin-Vilanter (Trelegy Ellipta) 200-62.5-25 mcg blister with device Active 1 INH INHALATION Daily April 15, 2024 3:40pm Moderate persistent asthma without complication Moderate persistent asthma, uncomplicated Rinse after use Complies with drug therapy Start: 42-80-1786Jxgqtoaowhs-Umeclidin-Vilanter (Trelegy Ellipta) 200-62.5-25 mcg blister with device Active 1 INH INHALATION Daily April 15, 2024 4:40pm Rinse after use Complies with drug therapyStart: 99-61-7094Zxviu: 77-86-2190Gxtxcejlsgh-Umeclidin-Vilanter (Trelegy Ellipta) 200-62.5-25 mcg blister with device Active 1 INH INHALATION Daily April 15, 2024 4:40pm Rinse after useStart: 63-18-5314Ijwboskehxc-Umeclidin-Vilanter (Trelegy Ellipta) 200-62.5-25 mcg blister with device Active 1 INH INHALATION Daily April 15, 2024 3:40pm Rinse after useStart: 03-29-2024 End: 11-23-2779Krjjbyteavc-Umeclidin-Vilanter (Trelegy Ellipta) 200-62.5-25 mcg blister with device Discontinued 1INH INHALATION Daily 60 30 0 March 29, 2024 9:38am April 15, 2024 3:41pm Moderate persistent asthma without complication Moderate persistent asthma, uncomplicated Rinse after useStart: 03-29-2024 End: 92-31-1498Yluedrmcids-Umeclidin-Vilanter (Trelegy Ellipta) 200-62.5-25 mcg blister with device Discontinued 1INH INHALATION Daily 60 March 29, 2024 10:38am April 15, 2024 4:41pm Rinse after useStart: 03-29-2024 End: 97-74-6497Vptbulaiqvm-Umeclidin-Vilanter (Trelegy Ellipta) 200-62.5-25 mcg blister with device Discontinued 1INH INHALATION Daily 60 March 29, 2024 9:38am April 15, 2024 3:41pm Rinse after useStart: 03-11-2024 End: 63-91-6457Wtaopiavaox-Umeclidin-Vilanter (Trelegy Ellipta) 200-62.5-25 mcg blister with device Discontinued 1INH INHALATION Daily 180 90 4 March 11, 2024 12:00am March 29, 2024 9:38am Moderate persistent asthma without complication Moderate persistent asthma, uncomplicated Rinse after useStart: 03-11-2024 End: 75-36-0978Vggfcdcoebn-Umeclidin-Vilanter (Trelegy Ellipta) 200-62.5-25 mcg blister with device Discontinued 1INH INHALATION Daily 180 90 March 11, 2024 1:00am March 29, 2024 10:38am Rinse after useStart: 03-11-2024 End: 32-96-9523Nercjzzeysi-Umeclidin-Vilanter (Trelegy Ellipta) 200-62.5-25 mcg blister with device Discontinued 1INH INHALATION Daily 180 90 March 11, 2024 12:00am March 29, 2024 9:38am Rinse after useomeprazole 20 mg delayed release oral capsule (19 sources)Proton Pump InhibitorStart: 21-08-4366tfud 1 capsule by mouth once dailyOmeprazole 20 mg capsule,delayed release(DR/EC) Active 20 MG PO Daily March 11, 2024 12:00am Complies with drug therapyStart: 09-83-3214zfne 20 mg by mouth once dailyPrilosec OTC 20 mg, Oral, Daily, Refills(s) 0 Start Date: 12/22/21 Status: Orderedpantoprazole 40 mg delayed release oral tablet (5 sources)Proton Pump InhibitorStart: 68-35-5320loaa 1 tablet by mouth once dailyPantoprazole [address] Tab 40 mg = 1 tab(s), Oral, Daily, Refills(s) 0 Start Date: 02/01/22 Status: Ordered Repeat number: 1ProAir HFA 90 mcg/inh inhalation aerosol (4 sources)Start: 58-79-6211vtmv 2 puff(s) by inhalation every four hoursProAir HFA 90 mcg/inh inhalation aerosol 2 puff(s), Inhalation, q4hr Shortness of breath or wheezing, Refill(s) 0 Start Date: 12/17/21 Status: Ordered Repeat number: 1Sucralfate (5 sources)Aluminum ComplexStart: 68-71-1145jojpireyel tab 1 gm = 1 tab(s), Oral, QIDACHS, Refills(s) 0 Start Date: 02/01/22 Status: Ordered Repeat number: 1Start: 69-21-9999tiiropfxsj tab 1 gm = 1 tab(s), Oral, QIDACHS, Refills(s) 0 Start Date: 02/01/22 Status: Ordered Completed/Discontinued Medications MedicationDrug Class(es)DatesSig (Normalized)Sig (Original)albuterol 0.83 mg/ml inhalation solution (20 sources)beta2-Adrenergic AgonistStart: 06-26-2024 End: 45-27-4849ufyc 3 mL by inhalation every month as needed for wheezing Albuterol Sulfate 2.5 mg /3 mL (0.083 %) solution for nebulization Discontinued 2.5 MG INHALATION Four times daily as needed for shortness of breath or wheezing 360 1 July 15, 2024 2:15pm August 11:15am 3ml x 120 doses/monthStart: 04-15-2024 End: 89-47-1215fqvg 2.5 mg by inhalation four times daily as needed for wheezing Albuterol Sulfate 2.5 mg /3 mL (0.083 %) solution for nebulization Discontinued 2.5 MG INHALATION Four times daily as needed for shortness of breath or wheezing 75 1 June 10, 2024 1:02pm June 26, 2024 7:50amStart: 01-23-2024 End: 74-95-3929jbaz 1 dose by inhalation every four to six hours as needed Albuterol Sulfate 2.5 mg /3 mL (0.083 %) solution for nebulization Discontinued 0 .ROUTE .COMPLEX 90 5 March 18, 2024 4:52pm April 15, 2024 3:17pm INHALE 1 vial via NEBULIZER EVERY 4 TO 6 HOURS NEEDEDStart: 01-09-2024 End: 42-47-5332dlbs 2.5 mg by inhalation every four to six hours as needed Albuterol Sulfate 2.5 mg /3 mL (0.083 %) solution for nebulization Discontinued 2.5 MG INHALATION EVERY 4-6 HOURS as needed for bronchospasm 90 0 January 08, 2024 11:00pm January 23, 2024 9:48amStart: 09-08-2023 End: 51-26-6176xret 1 puff(s) by inhalation every four hours as neededAlbuterol Sulfate 90 mcg/actuation HFA aerosol inhaler Discontinued 2 PUFF INHALATION Every 4 hoursas needed for bronchospasm 8.5 2 November 01, 2023 8:22am December 05, 2023 1:48pmStart: 07-28-2023 End: 57-38-9299ocmg 2 puff(s) by inhalation every four hours as neededAlbuterol Sulfate 90 mcg/actuation HFA aerosol inhaler Discontinued 2 PUFF INHALATION Every 4 hoursApr2023 11:00pm September 08, 2023 9:39am FreeTextSi puff Inhalation every 4 hrs prn; Note: Source Status: Refill; Refills: 2; Provider: Bladimir Yang EStart: 72-04-3287oyfs 2 puff(s) by inhalation every four hours ProAir HFA 90 mcg/inh inhalation aerosol 2 puff(s), Inhalation, q4hr Shortness of breath or wheezing, Refill(s) 0 Start Date: 12/17/21 Status: Orderedtake 2 puff(s) by inhalation every four hoursalbuterol HFA 90 mcg/act inhaler Inhale 2 puffs every 4 (four) hours if needed Activeamitriptyline hydrochloride 50 mg oral tablet (20 sources)Tricyclic AntidepressantStart: 03-29-2024 End: 77-07-8215tavg 1 tablet by mouth once daily at bedtimeAmitriptyline 50 mg tablet Discontinued 50 MG PO Daily at bedtime March 29, 2024 9:36am No vem2024 10:45am FreeTextSi tablet at bedtime Orally Once a day; Note: Source Status: Start; Refills: 3; Qty: 90 Tablet; Provider: Bladimir Ward Start: 12-17-2021 End: 21-29-9352fvoz 1 tablet by mouth once daily at bedtimeAmitriptyline 50 mg tablet Discontinued 50 MG PO Daily at bedtime July 27, 2023 11:00pm January 102023 12:58pm FreeTextSi tablet at bedtime Orally Once a day; Note: Source Status: Start; Refills: 3; Qty: 90 Tablet; Provider: Bladimir Ward azithromycin 500 mg oral tablet (11 sources)Macrolide AntimicrobialStart: 10-04-2024 End: 59-49-4795bqux 1 tablet by mouth once dailyAzithromycin 500 mg tablet Discontinued 500 MG PO Daily 5 October 03, 2024 11:00pm December 02, 2024 11:29amcefdinir 300 mg oral capsule (20 sources)Cephalosporin AntibacterialStart: 12-02-2024 End: 69-71-9015hkqz 1 capsule by mouth twice dailyCefdinir 300 mg capsule Discontinued 300 MG PO Twice daily December 02, 2024 11:29am February 12, 2025 10:46amStart: 01-09-2024 End: 39-72-2163pqrh 1 capsule by mouth twice dailyCefdinir 300 mg capsule Discontinued 300 MG PO Twice daily January 08, 2024 11:00pm February 08, 2024 12:53pmdoxycycline hyclate 100 mg oral tablet (20 sources)Tetracycline-class DrugStart: 10-13-2023 End: 10-10-9427para 1 tablet by mouth twice dailyDoxycycline Hyclate 100 mg tablet Discontinued 100 MG PO Twice daily 20 10 0 October 12, 2023 11:00pmJuly 2023 8:02am Tick bite Arthralgia Headache Pain in unspecified joint Headache, unspecifiedDULoxetine 60 mg delayed release oral capsule (20 sources)Serotonin and Norepinephrine Reuptake InhibitorStart: 11-01-2023 End: 34-72-9138nsnr 1 capsule by mouth once dailyDuloxetine 60 mg capsule,delayed release(DR/EC) Discontinued 60 MG PO Daily 30 0 December 05, 2023 1:48pm January 09, 2024 2:24pmStart: 07-31-2023 End: 40-09-5699pwzf 1 capsule by mouth once dailyDuloxetine (Cymbalta) 30 mg capsule,delayed release(DR/EC) Discontinued 30 MG PO Daily 30 0 October 13, 2023 2:47pm November 01, 2023 8:18amfluconazole 150 mg oral tablet (4 sources)Azole AntifungalStart: 12-23-2024 End: 98-76-8838Holxrbgajqq 150 mg tablet Discontinued 150 MG PO Q3D 2 0 December 22, 2024 11:00pm February 10:73ni347 actuat fluticasone propionate 0.044 mg/actuat metered dose inhaler (20 sources)CorticosteroidStart: 01-24-2024 End: 48-16-7669grfh 1 puff(s) by inhalation twice dailyFluticasone Propionate Discontinued 1 PUFF INHALATION Twice daily .January 24, 2024 8:18am Oct min 2023 2:20pm administer with spacerStart: 84-27-0256qphl 1 puff(s) by inhalation twice dailyFluticasone Propionate Active 1 PUFF INHALATION Twice daily .January 24, 2024 8:18am administer with spacerStart: 12-05-2023 End: 27-54-2664lbet 1 puff(s) by inhalation twice dailyFluticasone Propionate Discontinued 1 PUFF INHALATION Twice daily .December 05, 2023 2:47pm January 24, 2024 8:18am administer with spacerStart: 33-13-9645djwj 1 puff(s) by inhalation twice dailyFluticasone Propionate Active 1 PUFF INHALATION Twice daily .December 044 2:47pm administer with spacerStart: 11-01-2023 End: 12-42-6966vyfn 1 puff(s) by inhalation twice dailyFluticasone Propionate 44 mcg/actuation HFA aerosol inhaler Discontinued 1 PUFF INHALATION Twice daily 10.6 2 January 24, 2024 7:18am February 08, 2024 1:20pm administer with spacerStart: 11-01-2023 End: 87-46-7339cbxp 1 puff(s) by inhalation twice dailyFluticasone Propionate Discontinued 1 PUFF INHALATION Twice daily November 01, 2023 12:00am December 05, 2023 2:48pm administer with spacerStart: 50-11-3223ynrn 1 puff(s) by inhalation twice dailyFluticasone Propionate Active 1 PUFF INHALATION Twice daily November 01, 2023 12:00am administer withspacerFluticasone Propion-Salmeterol (20 sources)Corticosteroid, beta2-Adrenergic AgonistStart: 07-28-2023 End: 72-17-5757qlcc 1 puff(s) by inhalation twice dailyFluticasone Propion- Salmeterol 250-50 mcg/dose blister with device Discontinued 1 INH INHALATION Twi ce daily July 28, 2023 12:00am November 01, 2023 9:03am FreeTextSi puff Inhalation Twice a day; Note: Source Status: Start; Refills: 3; Provider: Bladimir Hernandezart: 07-28-2023 End: 89-83-5894tibh 1 puff(s) by inhalation twice dailyFluticasone Propion- Salmeterol 250-50 mcg/dose blister with device Discontinued 1 INH INHALATION Twi ce daily July 27, 2023 11:00pm November 01, 2023 8:03am FreeTextSi puff Inhalation Twice a day; Note: Source Status: Start; Refills: 3; Provider: Bladimir Breaux: 07-28-2023 End: 26-14-1303eara 1 puff(s) by inhalation twice dailyFluticasone Propion- Salmeterol Discontinued 1 INH INHALATION Twice daily July 28, 2023 12:00am Ju 2023 9:03am FreeTextSi puff Inhalation Twice a day; Note: Source Status: Start; Refills: 3; Provider: Bladimir Yang EStart: 23-02-3396oiip 1 puff(s) by inhalation twice dailyFluticasone Propion-Salmeterol Active 1 INH INHALATION Twice daily July 28, 2023 12:00am FreeTextSi puff Inhalation Twice a day; Note: Source Status: Start; Refills: 3; Provider: Bladimir Ward Start: 53-32-9460vpwh 2 puff(s) by inhalation twice dailyAdvair HFA 115 mcg-21 mcg Aerosol 2 puff(s), Inhalation, BID, Refill(s) 6 Start Date: 12/17/21 Status: Ordered Repeat number: 1Start: 23-54-6736bllr 2 puff(s) by inhalation twice dailyAdvair HFA 115 mcg-21 mcg Aerosol 2 puff(s), Inhalation, BID, Refill(s) 6 Start Date: 12/17/21 Status: OrderedFluticasone-Salmeterol 250-50 MCG/ACT aerosol powder Inhale 1 puff ActiveFluticasone Propionate 44 mcg/actuation HFA aerosol inhaler (12 sources)Start: 01-24-2024 End: 18-44-0743ezdt 1 puff(s) by inhalation twice dailyFluticasone Propionate 44 mcg/actuation HFA aerosol inhaler Discontinued 1 PUFF INHALATION Twice daily 10.January 24, 2024 8:18am February 08, 2024 2:20pm administer with spacer Start: 01-24-2024 End: 43-32-7431pjjz 1 puff(s) by inhalation twice dailyFluticasone Propionate 44 mcg/actuation HFA aerosol inhaler Discontinued 1 PUFF INHALATION Twice daily 10.January 24, 2024 7:18am February 08, 2024 1:20pm administer with spacer Start: 12-05-2023 End: 62-79-1546papl 1 puff(s) by inhalation twice dailyFluticasone Propionate 44 mcg/actuation HFA aerosol inhaler Discontinued 1 PUFF INHALATION Twice daily .December 05, 2023 2:47pm January 24, 2024 8:18am administer with spacer Start: 12-05-2023 End: 52-16-4042spga 1 puff(s) by inhalation twice dailyFluticasone Propionate 44 mcg/actuation HFA aerosol inhaler Discontinued 1 PUFF INHALATION Twice daily 10.6 December 05, 2023 1:47pm January 24, 2024 7:18am administer with spacer Start: 11-01-2023 End: 96-99-6500hrlx 1 puff(s) by inhalation twice dailyFluticasone Propionate 44 mcg/actuation HFA aerosol inhaler Discontinued 1 PUFF INHALATION Twice daily November 01, 2023 12:00am December 05, 2023 2:48pm administer with spacerStart: 11-01-2023 End: 99-19-2957xzxj 1 puff(s) by inhalation twice dailyFluticasone Propionate 44 mcg/actuation HFA aerosol inhaler Discontinued 1 PUFF INHALATION Twice daily October 31, 2023 11:00pm December 05, 2023 1:48pm administer with spacer methylPREDNISolone 4 mg oral tablet (20 sources)CorticosteroidStart: 11-01-2023 End: 17-57-6484Ezoeultvncncjqsecq 4 mg tablets,dose pack Discontinued 0 PO per package directions 21 0 October 31, 2023 11:00pm December 05, 2023 1:48pm PO PER PKG DIR for 6 daysStart: 11-01-2023 End: 86-72-2191Ftxykeoejlkmlssnzp Discontinued 0 PO per package directions November 01, 2023 12:00am November 2:48pm PO PER PKG DIR for 6 daysStart: 72-18-8093Aqoxvgorirvfnregqn Active 0 PO per package directions November 01, 2023 12:00am PO PER PKG DIR for6 daysnystatin 131925 unt/ml oral suspension (6 sources)Polyene AntifungalStart: 12-06-2024 End: 05-40-3367juod 1 mL by mouth four times dailyNystatin 100,000 unit/mL suspension Discontinued 5 ML PO Four times daily 60 0 December 05, 2024 11:00pm February 12, 2025 10:46am swish and swallowondansetron 4 mg disintegrating oral tablet (18 sources)Serotonin-3 Receptor AntagonistStart: 09-27-2024 End: 03-37-9195kdxk 1 tablet by mouth every eight hours as needed for nausea and vomitingOndansetron 4 mg tablet,disintegrating Discontinued 4 MG PO Q8H as needed for nausea and vomiting 15 0 December 02, 2024 1:29pm February 12, 2025 11:05amPneumoc 20-Agnes Conj-Dip Cr(Pf) (15 sources)Start: 03-11-2024 End: 89-33-9682fpjwjg 1 mL by intramuscular injection oncePneumoc 20-Agnes Conj- Dip Cr(Pf) (Prevnar 20 (Pf)) 0.5 mL syringe Discontinued 0.5 ML IM Once 0.5 0 De [facility] 2023 12:00am March 29, 2024 8:52am Encounter for immunization Encounter for immunizationStart: 03-11-2024 End: 45-03-6231zhlqkf 1 mL by intramuscular injection oncePneumoc 20-Agnes Conj- Dip Cr(Pf) (Prevnar 20 (Pf)) 0.5 mL syringe Discontinued 0.5 ML IM Once 0.5 Dece [facility] 2023 1:00am March 29, 2024 9:52amStart: 03-11-2024 End: 63-10-1125fimbns 1 mL by intramuscular injection oncePneumoc 20-Agnes Conj- Dip Cr(Pf) (Prevnar 20 (Pf)) 0.5 mL syringe Discontinued 0.5 ML IM Once 0.5 Dece [facility] 2023 12:00am March 29, 2024 8:52ampredniSONE 20 mg oral tablet (19 sources)Start: 01-09-2024 End: 10-22-4990fbrj 1 tablet by mouth twice dailyPrednisone 20 mg tablet Discontinued 20 MG PO Twice daily 10 0 January 08, 2024 11:00pm 2023 12:53pmpregabalin 50 mg oral capsule (20 sources)Start: 07-31-2023 End: 19-55-8903izgh 1 capsule by mouth twice dailyPregabalin (Lyrica) 50 mg capsule Discontinued 50 MG PO Twice daily 60 30 0 July 30, 2023 11:00pm July 31, 2023 3:27pm Chronic lumbar radiculopathy Radiculopathy, lumbar region Rsvpref3 Antigen-As01e (Pf) (11 sources)Start: 03-11-2024 End: 15-95-7943tminxc 1 mL by intramuscular injection onceRsvpref3 Antigen-As01e (Pf) (Arexvy (Pf)) 120 mcg/0.5 mL suspension for reconstitution Discontinued0.5 ML IM Once 1 March 11, 2024 12:00am March 29, 2024 9:04am Encounter for immunizationEncounter for immunizationStart: 03-11-2024 End: 09-49-7924otwcms 1 mL by intramuscular injection onceRsvpref3 Antigen-As01e (Pf) (Arexvy (Pf)) 120 mcg/0.5 mL suspension for reconstitution Discontinued0.5 ML IM Once March 11, 2024 1:00am March 29, 2024 10:99muZyqxacj6 Antigen-As01e (Pf) (Arexvy (Pf)) 120 mcg/0.5 mL suspension for reconstitution (4 sources)Start: 03-11-2024 End: 08-51-7552rvxmrv 1 mL by intramuscular injection onceRsvpref3 Antigen-As01e (Pf) (Arexvy (Pf)) 120 mcg/0.5 mL suspension for reconstitution Discontinued0.5 ML IM Once March 11, 2024 1:00am March 29, 2024 10:04amStart: 03-11-2024 End: 41-66-4454ongalt 1 mL by intramuscular injection onceRsvpref3 Antigen-As01e (Pf) (Arexvy (Pf)) 120 mcg/0.5 mL suspension for reconstitution Discontinued0.5 ML IM Once March 11, 2024 12:00am March 29, 2024 9:04am60 actuat tiotropium 0.47073 mg/actuat inhalation spray (20 sources)AnticholinergicStart: 02-08-2024 End: 34-28-0837jcss 1 puff(s) by inhalation once daily in the morningTiotropium Arden (Spiriva Respimat) 1.25 mcg/actuation mist Discontinued 2 PUFF INHALATION Every morning March 08, 2024 9:50am March 11, 2024 3:50pmtiZANidine 4 mg oral tablet (20 sources)Central alpha-2 Adrenergic AgonistStart: 12-17-2021 End: 85-23-4175xjpe 1 tablet by mouth three times dailyTizanidine 4 mg tablet Discontinued 4 MG PO Three times daily 90 0 November 15, 2024 1:52pm December 30, 2024 12:13pm Problems Active Problems Problem ClassificationProblemDateDocumented DateEpisodic/ChronicAbdominal hernia (1 source)Diaphragmatic hernia without obstruction or gangrene; Translations: [DIAPH HERNIA W/O OBST/GANGRENE]Onset: 26-42-9229XekvykwrWxtfawplq pain (20 sources)Epigastric pain; Translations: [Epigastric pain]Onset: 12-22-2021 Resolved: 20-41-4062EqixxqkkWwhh and rectal conditions (1 source)Rectal polyp; Translations: [RECTAL POLYP]Onset: 82-44-6864Yevijjcc Asthma (20 sources)Asthma; Translations: [Uncomplicated moderate persistent asthma] Onset: 06-05-2024 Resolved: 479951-38-6220AhzffzfUqqqsmnz of urinary tract (2 sources)Kidney stone; Translations: [Calculus of kidney]Onset: 12-24-2024 EpisodicCancer of bladder (20 sources)Malignant tumor of urinary bladder; Translations: [Malignant neoplasm of bladder, unspecified]Onset: 58-11-7408DizxmnpGqywxvs obstructive pulmonary disease and bronchiectasis (20 sources)Chronic obstructive lung disease; Translations: [Chronic obstructive pulmonary disease, unspecified]Onset: 01-17-2022 Resolved: 923966-88-4200RrqukpzRmuxcfdtb congenital anomalies (1 source)Other specified congenital malformations of intestine; Translations: [OTH SPEC CONGEN MALFORM INTESTINE]Onset: 49-79-0725MzfbvfqDsptbirnm of lipid metabolism (9 sources)Very low density lipoprotinemia; Translations: [Pure hyperglyceridemia]Onset: 06-05-2024 Resolved: 221745-82-5877KzdvexxYlmgmvawiokhst and diverticulitis (5 sources)Diverticulosis of large intestine without perforation or abscess without bleeding; Translations: [Diverticulosis of sigmoid colon]Onset: 971375-92-8817KiarweyR Codes: Natural/environment (20 sources)Tick bite; Translations: [Bitten or stung by nonvenomous insect and other nonvenomous arthropods, initial encounter]Onset: 06-05-2024 Resolved: 141636-14-8789ZtmzhslrRqtwoyozur disorders (18 sources)Gastroesophageal reflux disease without esophagitis; Translations: [Gastro-esophageal reflux disease without esophagitis]Onset: 12-22-2021 Resolved: 70-60-7648CnmzjtgHdrpg of unknown origin (17 sources)Disorder characterized by fever; Translations: [Fever, unspecified] Onset: 744507-13-2911ClqsflpoHnwgbmjge and duodenitis (1 source)Unspecified chronic gastritis without bleeding; Translations: [UNS CHRONIC GASTRITIS W/O BLEEDING]Onset: 94-77-5077OygulxvFxujsbmrmekdrj ulcer (except hemorrhage) (4 sources)Antral -36-5746JawsvlbJgsfvhecqmtvh symptoms and ill-defined conditions (20 sources)Blood in urine; Translations: [Hematuria, unspecified]Onset: 102516-69-2656LidfnzhwOpcuclpz; including migraine (20 sources)Headache; Translations: [Headache]Onset: 06-05-2024 Resolved: 508400-91-6165LrfosvlzZtbscekvfsqyi and screening for infectious disease (20 sources)Patient encounter status; Translations: [Encounter for immunization] Onset: 06-05-2024 Resolved: 780063-00-4281OavdfledQxjg disorders (9 sources)Depressive disorder; Translations: [Depression]Onset: 06-05-2024 Resolved: 460450-44-2194ZrokyylEgwhwqx (16 sources)Candidiasis of mouth; Translations: [Candidal stomatitis]12-11-2024 EpisodicNoninfectious gastroenteritis (19 sources)Gastroenteritis; Translations: [Noninfective gastroenteritis and colitis, unspecified]12-20-2756XqbmuyafAcwnckwfldajuu (20 sources)Primary gonarthrosis, bilateral; Translations: [Bilateral primary osteoarthritis of knee]Onset: 06-05-2024 Resolved: 347707-38-5577YuboaijSftlm aftercare (1 source)Other intermediate designer (current) drug therapy; Translations: [OTH TEST ANALYST CURRENT DRUG THERAPY]Onset: 77-32-2708NfwtehplQjycc aftercare (17 sources)Long-term current use of inhaled steroid; Translations: [predatory animal exterminator (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 of 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]Onset: 06-05-2024 Resolved: 154466-66-1229WejfbtelOnxab aftercare (3 sources)jail (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 of 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; Translations: [Long-term (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 of steroids]74-73-9488MttyviysPowrg bone disease and musculoskeletal deformities (9 sources)Osteopenia; Translations: [Other specified disorders of bone density and structure, unspecified site]Onset: 06-05-2024 Resolved: 801274-10-4287UrziyyjgFetdk bone disease and musculoskeletal deformities (1 source)Other specified disorders of bone density and structure, unspecified site; Translations: [OTH D/O BONE DEN STRUCT UNS SITE]Onset: 48-72-1725Zoxpzpcy Other connective tissue disease (18 sources)Pain in right lower limb; Translations: [Pain in right leg]Onset: 06-05-2024 Resolved: 817612-33-5718CvqrswewVjxhm connective tissue disease (4 sources)Pain in right leg; Translations: [Pain in limb]31-72-0282Ongsgnea Other diseases of bladder and urethra (19 sources)Mass of urinary bladder; Translations: [Other specified disorders of bladder]11-05-1257DvwpkxmQhwxc fractures (18 sources)Fracture of rib; Translations: [Fracture of one rib, unspecified side, initial encounter for closedfracture]Onset: 06-05-2024 Resolved: 330906-62-7306SedghdsrTylxh fractures (2 sources)Fracture of one rib, unspecified side, initial encounter for closed fracture; Translations: [Closedfracture of rib(s), unspecified]02-08-2024 EpisodicOther gastrointestinal disorders (1 source)Diarrhea, unspecified; Translations: [Diarrhea, unspecified]Onset: 57-02-6759AavzmkpaCbobe gastrointestinal disorders (1 source)DiarrheaOnset: 91-91-4667SsxqhiwgWnfwm nervous system disorders (1 source)Numbness and tingling sensation of skin; Translations: [Anesthesia of skin]78-06-6460CkfyznzdPpvok non-traumatic joint disorders (20 sources)Joint pain; Translations: [Pain in unspecified joint]Onset: 06-05-2024 Resolved: 661641-94-5271LhvukfxoMyswq non-traumatic joint disorders (3 sources)Pain in unspecified joint; Translations: [Pain in joint, site unspecified]54-17-9349LpzgnmstOihkn non-traumatic joint disorders (20 sources)Pain in right knee; Translations: [Pain in both knees]Onset: 01-24-2024 Resolved: 543428-45-2542SdnblknfTivrs nutritional; endocrine; and metabolic disorders (9 sources)Overweight in adulthood with body mass index of 25 or more but less than 30; Translations: [Body mass index (BMI) 27.0-27.9, adult]Onset: 06-05-2024 Resolved: 038219-88-9596VanfhsaeLnowx screening for suspected conditions (not mental disorders or infectious disease) (20 sources)Screening for malignant neoplasm of colon done; Translations: [Encounter for screening for malignant neoplasm of colon]Onset: 12-22-2021 EpisodicRegional enteritis and ulcerative colitis (1 source)Ulcerative (chronic) pancolitis without complications; Translations: [Ulcerative (chronic) pancolitis without complications]Onset: 28-81-1526Iczgcxy Residual codes; unclassified (10 sources)Early satiety; Translations: [Early satiety]Onset: 12-22-2021 Resolved: 77-79-0682DmlmkklqChzukgub codes; unclassified (10 sources)Tobacco user; Translations: [Tobacco use]Onset: 12-22-2021 Resolved: 04-34-0646JhzjivleIajahmlu codes; unclassified (9 sources)Chronic back pain ; Translations: [Dorsalgia, unspecified]Onset: 06-05-2024 Resolved: 986461-40-0114NzhxxxgyBtqggwfx codes; unclassified (1 source)Early satiety; Translations: [EARLY SATIETY]Onset: 33-61-3685Wbalcnah Residual codes; unclassified (19 sources)Menopause present; Translations: [Asymptomatic menopausal state] Onset: 06-05-2024 Resolved: 580970-88-4191NxpyowyoSjljephx codes; unclassified (3 sources)Asymptomatic menopausal state; Translations: [Symptomatic menopausal or female climacteric states]17-35-4937FuuojrckMpibkkbhdhu; intervertebral disc disorders; other back problems (20 sources)Lumbar radiculopathy; Translations: [Radiculopathy, lumbar region] Onset: 06-05-2024 Resolved: 123187-70-8738VncecosdHfzhwntti-jpzwvqm disorders (20 sources)Nicotine dependence, cigarettes, uncomplicated; Translations: [Tobacco dependence caused by cigarettes]Onset: 01-17-2022 Resolved: 678603-94-6713VufefoeJnqwhfg disorders (20 sources)Thyroid nodule; Translations: [Nontoxic single thyroid nodule]Onset: 06-05-2024 Resolved: 605352-02-4155SxyxnvdLjdxaitcwdcw (6 sources)Patient encounter ndithe41-30-0808Njbncnfblkfe (1 source)CONTACT W/AND (SUSP) EXPOS COVID-19; Translations: [CONTACT W/AND (SUSP) EXPOS COVID-19]Onset: 33-38-6257Jqkpznybibvd (1 source)Diarrhea, Abdominal PainOnset: 07-26-5298Xvairay tract infections (18 sources)Urinary tract infectious disease; Translations: [Urinary tract infection, site not specified]Onset: 279529-44-7363Dfvptvbf Past or Other Problems Problem ClassificationProblemDateDocumented DateEpisodic/ChronicOther non- traumatic joint disorders (1 source)Pain in left knee; Translations: [Pain in left knee]Onset: 01-24-2024 Episodic Results Test NameValueInterpretationReference RangeFacilityActivated partial thromboplastin time (aPTT) in platelet poor plasma by coagulation aOrdered By: Jose L Tan on 29-65-9414zGDZ Coag (PPP) [Time]27.5 s22.3-36.2FMercer County Community HospitalBasophils Auto (Bld) [#/Vol]Ordered By: Jose L Tan on 85-38-3110Lcczdjqru (Bld) [#/Vol]0.0 10 3/uL0.0-0.1FMercer County Community HospitalBasophils/100 WBC Auto (Bld)Ordered By: Jose L Tan on 02-03-2025 Basophils/100 WBC (Bld)0.3 %0.2-2.0[facility] Eosinophils/100 WBC Auto (Bld)Ordered By: Jose L Tan on 02-03-2025 Eosinophils/100 WBC (Bld)1.2 %0.9-7.0[facility] Erythrocyte distribution width Auto (RBC) [Ratio]Ordered By: Jose L Tan on 67-78-7571Rhikplmuzoi distribution width (RBC) [Ratio]14.8 %11.0-15.0[facility] HospitalGlomerular filtration rate (GFR) estimation in non- AmericanOrdered By: Jose L Tan on 24-16-2629XPA/1.73 sq M.predicted among non-blacks MDRD (S/P/Bld) [Vol rate/Area]55 mL/min/{1.73_m2}Low>=60 mL/min/1.73m 2FMercer County Community HospitalHematocrit Auto (Bld) [Volume fraction]Ordered By: Jose L Tan on 56-08-1414Tjyxnumahz (Bld) [Volume fraction]37.5 %36.0-48.0[facility] HospitalHemoglobin [Mass/volume] in BloodOrdered By: Jose L Tan on 26-50-9563Fpifrqilzr (Bld) [Mass/Vol]11.9 g/dLLow12.0-16.0[facility] HospitalINR in Platelet poor plasma by Coagulation assayOrdered By: Jose L Tan on 08-38-3261UWN Coag (PPP) [Relative time]1.00 {INR}[facility] HospitalComment on above:DESIRED INR:2.0-3.0 CONDITIONS NOT LISTED BELOW2.5-3.5 FOR PROSTHETIC HEART VALVE REPLACEMENT2.5-3.5 RECURRENT THROMBOSISLaboratory - Chemistry and Chemistry - challengeOrdered By: Jose L Tan on 90-64-4675Wbbaexe [Mass/Vol]8.8 mg/dL8.5-10.1FMercer County Community HospitalChloride [Moles/Vol]106 mmol/L 98-107[facility] HospitalCO2 [Moles/Vol]27.5 mmol/L21.0-32.0 [facility] HospitalCreatinine [Mass/Vol]1.01 mg/dL0.55-1.02 [facility] HospitalGFR/1.73 sq M.predicted MDRD (S/P/Bld) [Vol rate/Area]mL/min/{1.73_m2}>=60 mL/min/1.73m 2FMercer County Community Hospital Glucose [Mass/Vol]100 mg/jD45-989NzafzbcdbClinton Memorial HospitalPotassium [Moles/Vol]3.9 mmol/L3.5-5.1FMercer County Community Hospitalodium [Moles/Vol] 143 mmol/E872-431NitjtwmrxClinton Memorial HospitalUrea nitrogen [Mass/Vol]28.0 mg/dLHigh7.0-18.0[facility] HospitalUrea nitrogen/Creatinine [Mass ratio]27.7 mg/mgClinton Memorial HospitalLaboratory - Hematology and Cell countsOrdered By: Jose L Tan on 89-39-8928Txkoakdp granulocytes/100 WBC (Bld)0.1 %0.0-0.5FMercer County Community HospitalLeukocytes [#/volume] corrected for nucleated erythrocytes in Blood by Automated counOrdered By: Jose L Tan on 13-47-7098OVI corrected for nucl RBC Auto (Bld) [#/Vol]8.9 10 3/uL4.0-11.0[facility] HospitalLymphocytes Auto (Bld) [#/Vol] Ordered By: Jose L Tan on 35-54-8039Pvsotkvoimo (Bld) [#/Vol]2.5 10 3/uL 1.2-3.8[facility] HospitalLymphocytes/100 WBC Auto (Bld)Ordered By: Jose L Tan on 00-90-3987Bkyujvaznyw/100 WBC (Bld)28.1 %20.5-60.0[facility] Auto (RBC) [Entitic mass]Ordered By: Jose L Tan on 06-92-1557LBP (RBC) [Entitic mass]27.3 pg26.7-34.0[facility] HospitalMCHC Auto (RBC) [Mass/Vol]Ordered By: Selgabriela Buckir on 10-69-7330CRQB (RBC) [Mass/Vol]31.7 g/dL29.9-35.2FMercer County Community HospitalMCV Auto (RBC) [Entitic vol]Ordered By: Seltavon Britney on 41-17-5878XRY (RBC) [Entitic vol]86.0 fL81.0-99.0[facility] HospitalMonocytes Auto (Bld) [#/Vol]Ordered By: Aronn Britney on 16-90-6284Utmondtzl (Bld) [#/Vol]0.7 10 3/uL0.3-0.8[facility] HospitalMonocytes/100 WBC Auto (Bld)Ordered By: Jose L Buckir on 05-33-8848Nooxsadrp/100 WBC (Bld)8.1 %1.7-12.0[facility] Neutrophils Auto (Bld) [#/Vol]Ordered By: Jose L Buckir on 34-35-2632Zvpundplqgi (Bld) [#/Vol]5.5 10 3/uL1.4-6.5FMercer County Community HospitalNeutrophils/100 WBC Auto (Bld)Ordered By: Jose L Tan on 24-81-6689Dajwrlnjtuw/100 WBC (Bld) 62.2 %43.0-75.0[facility] HospitalNo Panel InformationOrdered By: Jose L Tan on 69-82-3082Cmjgaqdhhbo # (Auto)0.1 10 3/uL0.0-0.7FMercer County Community HospitalImmature Granulocyte # (Auto)0.01 10 3/uL0.00-0.03 [facility] HospitalPlatelet mean volume Auto (Bld) [Entitic vol] Ordered By: Jose L Tan on 64-87-1389Osddtzpa mean volume (Bld) [Entitic vol] 9.3 fLLow9.5-13.5FMercer County Community HospitalPlatelets Auto (Bld) [#/Vol] Ordered By: Jose L Tan on 62-96-8105Scdgexrgb (Bld) [#/Vol]291 10 3/vP519-949 [facility] HospitalProthrombin time (PT)Ordered By: Jose L Tan on 94-01-7263OF Coag (PPP) [Time]10.6 s9.0-11.6FMercer County Community Hospital RBC Auto (Bld) [#/Vol]Ordered By: Jose L Tan on 98-09-9656GTT (Bld) [#/Vol] 4.36 10 6/uL4.20-5.40[facility] Centererum or plasma anion gap determinationOrdered By: Jose L Tan on 07-28-3069Merjh gap [Moles/Vol]13.4 mmol/LFMercer County Community HospitalLaboratory - Chemistry and Chemistry - challengeOrdered By: Cornelius Garrison on 01-10-3445Fyjjzalgf Ql (U)NegativeClinton Memorial HospitalGlucose (U) [Mass/Vol]NegativeClinton Memorial HospitalKetones Ql (U)[facility] CenterpH (U)5 [pH] [facility] Centerpecific gravity (U) [Rel density]1.000 [facility] HospitalUrobilinogen (U) [Mass/Vol]0.2 mg/dLClinton Memorial HospitalLaboratory - Specimen informationOrdered By: Cornelius Garrison on 38-98-9708Ntbvyhocnu (U)clearClinton Memorial HospitalColor (U) yellowClinton Memorial HospitalLaboratory - UrinalysisOrdered By: Cornelius Garrison on 94-33-5018Souezaoho esterase Test strip Ql (U)[facility] CenterNitrite Ql (U)[facility] Protein Ql (U)[facility] CenterNo Panel Information Ordered By: Cornelius Garrison on 51-79-2409Uqhfh Occult Blood++[facility] HospitalUrine Cultureon 78-46-7562Rqrsmgkz identified Cx Nom (U)No Growth 2 Days PERFORMED BY: [place] [address] PATHOLOGIST PETROL TANKER DRIVER KATHLEEN PuentesBroward Health Medical Center Physician GroupComment on above: Performed By: #### CUU #### [facility] [address] [id number] USAUrine cultureOrdered By: Cornelius Garrison on 01-01-2025 Bacteria identified Cx Nom (U)No Growth 2 DaysClinton Memorial Hospital Ambulatory Visit Summaryon 81-72-3251Upspsiooaz Visit SummaryAmbulatory Visit Summary CRISTINE MANLEY :1960 Visit Date:12/24/2024 Ambulatory Visit Instructions Your Diagnosis Bladder cancer Gross hematuria History of UTI Incomplete bladder emptying Smoker Kidney stone Your Care Team Attending Physician - WOODY TAVERAS, BRIE Primary Care Physician - CORNELIUS [...] Schedule the Following Appointments Follow Up with WOODY TAVERAS, GERALDO BAIRD When: Where: Medications What [...] in your car. ??? (more content not included)...[facility] HamiltonUrology Office/Clinic Noteon 69-50-5613Irsiaje Office/Clinic NoteUrology Office/Clinic Note Chief Complaint F/U HPI Staff 64 year old female her for 1-2 wk F/U to cysto done 12/13/24 Previous DX: bladder cancer, gross hematuria, incomplete bladder emptying and smoker S/P Cysto/TURBT 11/13/24 Pt. was in [facility] ER on 12/11/24 for flank pain and [...] Garrison for hematuria, here for f/u to [facility] urology consult for persistent UTI with hematuria. [...] leiomyoma [diagnosis of exclusion]. Pt presented to [facility] ER 11/13/24 with gross hematuria of 11-day duration. Severe clot passage. Three-way Lau placed with CBI initiated. CT AP wo con 11/12/24 [facility] - There are areas of nodular [...] Pseudomonas aeruginosa. CT AP w con 12/11/24 [facility] - Neg. CMP 12/14/24 - BUN 8, [...] surveillance cystoscopy. Follow-up With When Contact Information BRIE MCKAY MD, GERALDO Additional Instructions: surveillance cysto 03/2025 Patient Education Cystoscopy Steps to Quit Smoking Amy Patel, personally scribed for Dr. Mckay on 12/24/2024 10:11:56. . Portions of this record may have been created with voice recognition artificial intelligence software, specifically [employer], [employer] [place] [employer] [place] and or [employer]. Substitutions may have occu (more content not included)...[facility] HamiltonComment on above:Result Comment: Electronically Signed By: BRIE MCKAY MD\.br\Date and Time Signed: 12/24/24 10:16 EDT\.br\Electronically Co-Signed By: Amy Luciano\.br\Date and Time Co-Signed: 12/24/2509:12 EDTBasophils Auto (Bld) [#/Vol]Ordered By: Gianni France on 03-87-6365Rccxcpmsp (Bld) [#/Vol]0.0 10 3/uL0.0-0.1 [facility] HospitalBasophils/100 WBC Auto (Bld)Ordered By: Gianni France on 30-83-8669Uapzckllk/100 WBC (Bld)0.4 %0.2-2.0[facility] HospitalEosinophils/100 WBC Auto (Bld)Ordered By: Gianni France on 43-96-4547Bnaruezhohw/100 WBC (Bld)2.4 %0.9-7.0[facility] HospitalErythrocyte distribution width Auto (RBC) [Ratio]Ordered By: Gianni France on 23-23-7795Jycnhznhpxq distribution width (RBC) [Ratio] 14.0 %11.0-15.0[facility] HospitalGlomerular filtration rate (GFR) estimation in non- AmericanOrdered By: Gianni France on 28-59-6426OLG/1.73 sq M.predicted among non-blacks MDRD (S/P/Bld) [Vol rate/Area]mL/min/{1.73_m2}>=60 mL/min/1.73m 2FMercer County Community Hospital Hematocrit Auto (Bld) [Volume fraction]Ordered By: Gianni France on 53-67-7293Kgkgpqvzhu (Bld) [Volume fraction]31.7 %Low36.0-48.0[facility] HospitalHemoglobin [Mass/volume] in BloodOrdered By: Gianni France on 90-49-2893Huqhsiouat (Bld) [Mass/Vol]10.1 g/dLLow12.0-16.0[facility] HospitalLaboratory - Chemistry and Chemistry - challengeOrdered By: Gianni France on 94-56-6213Mjabfuh [Mass/Vol]9.3 mg/dL8.5-10.1FMercer County Community HospitalChloride [Moles/Vol]105 mmol/D16-707DjqrwtwsbClinton Memorial HospitalCO2 [Moles/Vol]31.0 mmol/L21.0-32.0[facility] HospitalCreatinine [Mass/Vol]0.82 mg/dL0.55-1.02[facility] GFR/1.73 sq M.predicted MDRD (S/P/Bld) [Vol rate/Area]mL/min/{1.73_m2}>=60 mL/min/1.73m 2FMercer County Community HospitalGlucose [Mass/Vol]83 mg/yV67-489 [facility] HospitalPotassium [Moles/Vol]4.0 mmol/L3.5-5.1FMercer County Community Hospitalodium [Moles/Vol]144 mmol/V652-848ArsbzngwwClinton Memorial HospitalUrea nitrogen [Mass/Vol]7.0 mg/dL7.0-18.0[facility] HospitalUrea nitrogen/Creatinine [Mass ratio]8.5 mg/mgClinton Memorial HospitalLaboratory - Hematology and Cell countsOrdered By: Gianni France on 99-21-3587Ikqspega granulocytes/100 WBC (Bld)0.4 %0.0-0.5FMercer County Community HospitalLeukocytes [#/volume] corrected for nucleated erythrocytes in Blood by Automated counOrdered By: Gianni France on 69-53-8482IYN corrected for nucl RBC Auto (Bld) [#/Vol]11.1 10 3/uLHigh4.0-11.0 [facility] HospitalLymphocytes Auto (Bld) [#/Vol]Ordered By: Gianni France on 48-61-9270Thszhdslcyk (Bld) [#/Vol]2.0 10 3/uL1.2-3.8 [facility] HospitalLymphocytes/100 WBC Auto (Bld)Ordered By: Gianni France on 98-82-4162Pgalkxiwitz/100 WBC (Bld)18.0 %Low20.5-60.0 [facility] Auto (RBC) [Entitic mass]Ordered By: Gianni France on 55-74-0823DZR (RBC) [Entitic mass]27.7 pg26.7-34.0 [facility] CenterHC Auto (RBC) [Mass/Vol]Ordered By: Gianni France on 12-33-6049RIKV (RBC) [Mass/Vol]31.9 g/dL29.9-35.2 [facility] CenterV Auto (RBC) [Entitic vol]Ordered By: Gianni France on 16-31-3617EKR (RBC) [Entitic vol]87.1 fL81.0-99.0 [facility] HospitalMonocytes Auto (Bld) [#/Vol]Ordered By: Gianni France on 60-88-9064Ljiqqqbtg (Bld) [#/Vol]0.7 10 3/uL0.3-0.8 [facility] HospitalMonocytes/100 WBC Auto (Bld)Ordered By: Gianni France on 41-42-6808Lvfzziuvx/100 WBC (Bld)6.4 %1.7-12.0[facility] HospitalNeutrophils Auto (Bld) [#/Vol]Ordered By: Gianni France on 21-59-4321Abpsusldfdy (Bld) [#/Vol]8.0 10 3/uLHigh1.4-6.5FMercer County Community HospitalNeutrophils/100 WBC Auto (Bld)Ordered By: Gianni France on 14-00-9452Gfpddbxookh/100 WBC (Bld)72.4 %43.0-75.0[facility] HospitalNo Panel InformationOrdered By: Gianni France on 76-77-1713Mvmjuhyqgyn # (Auto)0.3 10 3/uL0.0-0.7FMercer County Community HospitalImmature Granulocyte # (Auto)0.04 10 3/uLHigh0.00-0.03[facility] HospitalPlatelet mean volume Auto (Bld) [Entitic vol]Ordered By: Gianni France on 46-02-0307Izisledt mean volume (Bld) [Entitic vol]9.6 fL 9.5-13.5FMercer County Community HospitalPlatelets Auto (Bld) [#/Vol]Ordered By: Gianni France on 44-66-2181Pwlsnfyyz (Bld) [#/Vol]506 10 3/vHFwgs605-555 [facility] HospitalRBC Auto (Bld) [#/Vol]Ordered By: Gianni France on 25-86-8250AIO (Bld) [#/Vol]3.64 10 6/uLLow4.20-5.40[facility] Centererum or plasma anion gap determinationOrdered By: Gianni France on 73-31-7038Mfnzx gap [Moles/Vol]12.0 mmol/LFMercer County Community HospitalErythrocyte distribution width Auto (RBC) [Ratio]Ordered By: Raheem Mckeon on 94-32-3278Xyrrsrwlfnj distribution width (RBC) [Ratio]13.9 % 11.0-15.0[facility] HospitalGlomerular filtration rate (GFR) estimation in non- AmericanOrdered By: Raheem Mckeon on 41-22-4913QVO/1.73 sq M.predicted among non-blacks MDRD (S/P/Bld) [Vol rate/Area]mL/min/{1.73_m2} >=60 mL/min/1.73m 2FMercer County Community HospitalHematocrit Auto (Bld) [Volume fraction]Ordered By: Raheem Mckeon on 40-73-7172Lxcfldsnab (Bld) [Volume fraction]29.3 %Low36.0-48.0[facility] HospitalHemoglobin [Mass/volume] in BloodOrdered By: Raheem Mckeon on 15-75-1952Ozxnibadct (Bld) [Mass/Vol]9.5 g/dLLow12.0-16.0[facility] HospitalLaboratory - Chemistry and Chemistry - challengeOrdered By: Raheem Mckeon on 98-63-9389Whzhbeu [Mass/Vol]8.8 mg/dL8.5-10.1FMercer County Community HospitalChloride [Moles/Vol]108 mmol/CAwgl70-829CfdhmjudbClinton Memorial HospitalCO2 [Moles/Vol] 31.5 mmol/L21.0-32.0[facility] HospitalCreatinine [Mass/Vol]0.71 mg/dL0.55-1.02[facility] HospitalGFR/1.73 sq M.predicted MDRD (S/P/Bld) [Vol rate/Area]mL/min/{1.73_m2}>=60 mL/min/1.73m 2FMercer County Community HospitalGlucose [Mass/Vol]84 mg/oD96-256VxhxnqlosClinton [facility] Hospital Magnesium [Mass/Vol]1.7 mg/dLLow1.8-2.4FMercer County Community Hospital Potassium [Moles/Vol]4.0 mmol/L3.5-5.1FMercer County Community Hospitalodium [Moles/Vol]146 mmol/GSvdz207-066UcpqdsmroClinton Memorial HospitalUrea nitrogen [Mass/Vol]8.0 mg/dL7.0-18.0[facility] HospitalUrea nitrogen/Creatinine [Mass ratio]11.3 mg/mgCl[facility] Hospital Leukocytes [#/volume] corrected for nucleated erythrocytes in Blood by Automated counOrdered By: Raheem Mckeon on 18-69-2191NMI corrected for nucl RBC Auto (Bld) [#/Vol]11.3 10 3/uLHigh4.0-11.0[facility] Auto (RBC) [Entitic mass]Ordered By: Raheem Mckeon on 44-02-6891AOT (RBC) [Entitic mass]28.3 pg26.7-34.0[facility] HospitalMCHC Auto (RBC) [Mass/Vol]Ordered By: Raheem Mckeon on 28-57-8985DIEI (RBC) [Mass/Vol]32.4 g/dL29.9-35.2FMercer County Community HospitalMCV Auto (RBC) [Entitic vol]Ordered By: Raheem Mckeon on 61-17-4720WUY (RBC) [Entitic vol]87.2 fL81.0-99.0[facility] HospitalPlatelet mean volume Auto (Bld) [Entitic vol]Ordered By: Raheem Mckeon on 18-59-6440Ucbwfcqt mean volume (Bld) [Entitic vol]9.1 fLLow9.5-13.5FMercer County Community HospitalPlatelets Auto (Bld) [#/Vol]Ordered By: Raheem Mckeon on 03-06-2167Vorfzhdzx (Bld) [#/Vol]441 10 3/eW633-571SlzyfwoicClinton Memorial HospitalRBC Auto (Bld) [#/Vol]Ordered By: Raheem Mckeon on 51-58-7341ERU (Bld) [#/Vol]3.36 10 6/uLLow4.20-5.40[facility] Centererum or plasma anion gap determinationOrdered By: Raheem Mckeon on 29-37-2217Rrand gap [Moles/Vol]10.5 mmol/[facility] HospitalErythrocyte distribution width Auto (RBC) [Ratio]Ordered By: Raheem Mckeon on 54-42-7504Mxkldbqhcni distribution width (RBC) [Ratio]14.1 %11.0-15.0[facility] Glomerular filtration rate (GFR) estimation in non- AmericanOrdered By: Raheem Mckeon on 43-71-8088QEH/1.73 sq M.predicted among non-blacks MDRD (S/P/Bld) [Vol rate/Area]mL/min/{1.73_m2}>=60 mL/min/1.73m 2FMercer County Community HospitalHematocrit Auto (Bld) [Volume fraction]Ordered By: Raheem Mckeon on 74-56-3797Ctfteiqzif (Bld) [Volume fraction]28.2 %Low36.0-48.0[facility] HospitalHemoglobin [Mass/volume] in BloodOrdered By: Raheem Mckeon on 54-31-8703Dscpelskon (Bld) [Mass/Vol]8.8 g/dLLow12.0-16.0[facility] HospitalLaboratory - Chemistry and Chemistry - challengeOrdered By: Raheem Mckeon on 88-68-7674Brngdthxb (Vitamin B12) [Mass/Vol]486 pg/oY460-5290YscyxqcplClinton Memorial HospitalComment on above:Performed at: - [facility] [address] [id number] Director: Jeovany Bazan PhD, Phone: [phone] Ql (U)NegativeNEGATIVEClinton Memorial Hospital Glucose (U) [Mass/Vol]NegativeNEGATIVEClinton Memorial HospitalKetones Ql (U)TRACE mg/dLAbnormalNEGATIVEClinton Memorial HospitalpH (U)6.0 [pH] 5.0-9.0[facility] Centerpecific gravity (U) [Rel density]1.020 1.005-1.025Cl[facility] HospitalUrobilinogen Qn (U)1.0 {Zoraida'U}/dL0.2-1.0[facility] HospitalCalcium [Mass/Vol]8.5 mg/dL8.5-10.1FMercer County Community HospitalChloride [Moles/Vol]108 mmol/LHigh 98-107[facility] HospitalCO2 [Moles/Vol]27.6 mmol/L21.0-32.0 [facility] HospitalCreatinine [Mass/Vol]0.81 mg/dL0.55-1.02 [facility] HospitalGFR/1.73 sq M.predicted MDRD (S/P/Bld) [Vol rate/Area]mL/min/{1.73_m2}>=60 mL/min/1.73m 2FMercer County Community Hospital Glucose [Mass/Vol]88 mg/uS01-567LufdmribwClinton Memorial HospitalMagnesium [Mass/Vol]1.8 mg/dL1.8-2.4FMercer County Community HospitalPotassium [Moles/Vol] 3.7 mmol/L3.5-5.1FMercer County Community Hospitalodium [Moles/Vol]143 mmol/L 136-145[facility] HospitalUrea nitrogen [Mass/Vol]10.0 mg/dL 7.0-18.0[facility] HospitalUrea nitrogen/Creatinine [Mass ratio] 12.3 mg/mgClinton Memorial HospitalLaboratory - Specimen information Ordered By: Raheem Mckeon on 90-15-4278Gnqkqgtuxf (U)CLEARCLEARFMercer County Community HospitalColor (U)YELLOWYELLOWClinton Memorial HospitalLaboratory - UrinalysisOrdered By: Raheem Mckeon on 79-80-1492Kquwczzsf esterase Test strip Ql (U)TRACEAbnormalNEGATIVEClinton Memorial HospitalNitrite Ql (U)Negative NEGATIVEClinton Memorial HospitalProtein Ql (U)30 mg/dLAbnormalNEG/TRACE [facility] HospitalLeukocytes [#/volume] corrected for nucleated erythrocytes in Blood by Automated counOrdered By: Raheem Mckeon on 57-79-5687SLP corrected for nucl RBC Auto (Bld) [#/Vol]12.2 10 3/uLHigh4.0-11.0[facility] Auto (RBC) [Entitic mass]Ordered By: Raheem Mckeon on 71-93-5562JMJ (RBC) [Entitic mass]27.6 pg26.7-34.0[facility] CenterHC Auto (RBC) [Mass/Vol]Ordered By: Raheem Mckeon on 26-94-0063YSCS (RBC) [Mass/Vol]31.2 g/dL29.9-35.2FMercer County Community HospitalMCV Auto (RBC) [Entitic vol]Ordered By: Raheem Mckeon on 76-59-3352RNT (RBC) [Entitic vol]88.4 fL81.0-99.0[facility] HospitalNo Panel InformationOrdered By: Raheem Mckeon on 45-09-2004Fbzsk Occult BloodMODERATEAbnormalNEGMercy Health Defiance HospitalPlatelet mean volume Auto (Bld) [Entitic vol]Ordered By: Raheem Mckeon on 17-23-5995Ccpibhmq mean volume (Bld) [Entitic vol]9.1 fLLow 9.5-13.5FMercer County Community HospitalPlatelets Auto (Bld) [#/Vol]Ordered By: Raheem Mckeon on 79-99-9479Dwqxafctm (Bld) [#/Vol]405 10 3/jW676-067NmkydefxcClinton Memorial HospitalRBC Auto (Bld) [#/Vol]Ordered By: Raheem Mckeon on 79-73-2242ZAT (Bld) [#/Vol]3.19 10 6/uLLow4.20-5.40[facility] Centererum or plasma anion gap determinationOrdered By: Raheem Mckeon on 47-53-6577Xkvdq gap [Moles/Vol]11.1 mmol/[facility] Basophils/100 WBC Manual cnt (Bld)Ordered By: Jone Gonsalves on 12-12-2024 Basophils/100 WBC (Bld)1.0 %0.2-2.0[facility] Eosinophils/100 WBC Manual cnt (Bld)Ordered By: Jone Gonsalves on 12-12-2024 Eosinophils/100 WBC (Bld)0.0 %Low0.9-7.0[facility] Erythrocyte distribution width Auto (RBC) [Ratio]Ordered By: Jone Gonsalves on 47-29-9869Zexhhlzthtt distribution width (RBC) [Ratio]14.1 %11.0-15.0[facility] HospitalGlomerular filtration rate (GFR) estimation in non- AmericanOrdered By: Jone Gonsalves on 10-87-5092IFG/1.73 sq M.predicted among non-blacks MDRD (S/P/Bld) [Vol rate/Area]mL/min/{1.73_m2}>=60 mL/min/1.73m 2FMercer County Community HospitalHematocrit Auto (Bld) [Volume fraction]Ordered By: Jone Gonsalves on 43-64-2369Selcnmeqgh (Bld) [Volume fraction]28.9 %Low 36.0-48.0[facility] HospitalHemoglobin [Mass/volume] in Blood Ordered By: Jone Gonsalves on 42-62-5036Dbhkxashxl (Bld) [Mass/Vol]9.3 g/dLLow 12.0-16.0[facility] HospitalHypochromia LM Ql (Bld)Ordered By: Jone Gonsalves on 22-54-4443Rvqqocpwphl Ql (Bld)2+[facility] HospitalLaboratory - Chemistry and Chemistry - challengeOrdered By: Jone Gonsalves on 60-37-9062Vvavruv [Mass/Vol]8.3 mg/dLLow8.5-10.1FMercer County Community HospitalChloride [Moles/Vol]104 mmol/V56-790VmwvaiyizClinton Memorial HospitalCO2 [Moles/Vol]27.6 mmol/L21.0-32.0[facility] HospitalCreatinine [Mass/Vol]0.62 mg/dL0.55-1.02[facility] HospitalGFR/1.73 sq M.predicted MDRD (S/P/Bld) [Vol rate/Area]mL/min/{1.73_m2}>=60 mL/min/1.73m 2 [facility] HospitalGlucose [Mass/Vol]99 mg/iL76-970NjheatnlqClinton Memorial HospitalPotassium [Moles/Vol]3.6 mmol/L3.5-5.1FMercer County Community Hospitalodium [Moles/Vol]142 mmol/A726-464GxmbiafxhClinton Memorial HospitalUrea nitrogen [Mass/Vol]9.0 mg/dL7.0-18.0[facility] Urea nitrogen/Creatinine [Mass ratio]14.5 mg/mgCl[facility] Hospital Laboratory - Chemistry and Chemistry - challengeOrdered By: Raheem Mckeon on 20-41-7585CX [Catalytic activity/Vol]30 U/P91-241WbxfbljegClinton Memorial HospitalLaboratory - Hematology and Cell countsOrdered By: Jone Gonsalves on 56-80-9169Vxuc form neutrophils/100 WBC (Bld)0.0 %0-5FMercer County Community HospitalLymphocytes/100 WBC (Bld)7.0 %Low20.5-60.0[facility] HospitalMonocytes/100 WBC (Bld)20.0 %High1.7-12.0[facility] Laboratory - Microbiology and Antimicrobial susceptibilityOrdered By: Raheem Mckeon on 41-86-1800EFXJ-CoV-2 (COVID-19) RNA JOSELUIS+probe Ql (Unsp spec)Negative NEGATIVEClinton Memorial HospitalComment on above:This test has not been [...] under section 564(b)(1) of theAct, 21 U.S.C. 360bbb- 3(b)(1), unless the declaration isterminated or authorization is revoked sooner. Leukocytes [#/volume] corrected for nucleated erythrocytes in Blood by Automated counOrdered By: Jone Gonsalves on 37-69-7805HLU corrected for nucl RBC Auto (Bld) [#/Vol]15.5 10 3/uLHigh4.0-11.0[facility] Auto (RBC) [Entitic mass]Ordered By: Jone Gonsalves on 59-34-7832CPF (RBC) [Entitic mass]28.2 pg26.7-34.0[facility] CenterHC Auto (RBC) [Mass/Vol] Ordered By: Jone Gonsalves on 86-02-4231VXBJ (RBC) [Mass/Vol]32.2 g/dL29.9-35.2 [facility] HospitalMCV Auto (RBC) [Entitic vol]Ordered By: Jone Gonsalves on 32-36-0447KCJ (RBC) [Entitic vol]87.6 fL81.0-99.0[facility] HospitalNo Panel InformationOrdered By: Jone Gonsalves on 12-12-2024 Absolute Basophils (Manual)0.15 10 3/uLHigh0.00-0.10[facility] HospitalBand Neutrophils # (Manual)0.0 10 3/uL0.0-0.3FMercer County Community HospitalClumped PlateletsRAREFMercer County Community HospitalEosinophils # (Manual)0.00 10 3/uL0.00-0.70[facility] HospitalGiant Platelets1+ [facility] HospitalLymphocytes # (Manual)1.08 10 3/uLLow1.20-3.80 [facility] HospitalMonocytes # (Manual)3.10 10 3/uLHigh0.30-0.80 [facility] HospitalPlatelet CommentABNORMALLakeHealth Beachwood Medical Centeregmented Neutrophils # (Manual)11.16 10 3/uLHigh1.4-6.5FMercer County Community HospitalPlatelet mean volume Auto (Bld) [Entitic vol]Ordered By: Jone Gonsalves on 27-51-0699Jxgbemzv mean volume (Bld) [Entitic vol]9.4 fLLow 9.5-13.5FMercer County Community HospitalPlatelets Auto (Bld) [#/Vol]Ordered By: Jone Gonsalves on 46-62-7364Isqfvpdhx (Bld) [#/Vol]489 10 3/aZVbry097-005 [facility] HospitalPolychromasia [Presence] in Blood by Light microscopyOrdered By: Jone Gonsalves on 79-84-0608Azhkxmusdaevf LM Ql (Bld)1+ [facility] HospitalRBC Auto (Bld) [#/Vol]Ordered By: Jone Gonsalves on 25-42-2929IYT (Bld) [#/Vol]3.30 10 6/uLLow4.20-5.40[facility] HospitalRBC morphologyOrdered By: Jone Gonsalves on 20-98-1812YSS morphology finding Nom (Bld)ABNORMALLakeHealth Beachwood Medical Centeregmented neutrophils/100 WBC Manual cnt (Bld)Ordered By: Jone Gonsalves on 12-12-2024 Segmented neutrophils/100 WBC (Bld)72.0 %43.0-75.0[facility] Centererum or plasma anion gap determinationOrdered By: Jone Gonsalves on 51-57-2521Osvwz gap [Moles/Vol]14.0 mmol/LFMercer County Community Hospital Basophils Auto (Bld) [#/Vol]Ordered By: Сергей Arnett on 76-16-2243Qivdrrfdi (Bld) [#/Vol]0.1 10 3/uL0.0-0.1FMercer County Community HospitalBasophils/100 WBC Auto (Bld)Ordered By: Срегей Arnett on 96-95-0114Bggkhneww/100 WBC (Bld)0.3 % 0.2-2.0[facility] HospitalEosinophils/100 WBC Auto (Bld)Ordered By: Сергей Arnett on 20-60-4242Gqhajfxnyma/100 WBC (Bld)0.3 %Low0.9-7.0[facility] HospitalErythrocyte distribution width Auto (RBC) [Ratio]Ordered By: Сергей Arnett on 92-30-0993Xdvpgbsdscl distribution width (RBC) [Ratio]14.2 % 11.0-15.0[facility] HospitalGlobulin Calc (S) [Mass/Vol]Ordered By: Сергей Arnett on 19-79-1196Immjkfeg (S) [Mass/Vol]4.0 g/dLClinton Memorial HospitalGlomerular filtration rate (GFR) estimation in non- AmericanOrdered By: Сергей Arnett on 27-16-4610YNK/1.73 sq M.predicted among non- blacks MDRD (S/P/Bld) [Vol rate/Area]58 mL/min/{1.73_m2}Low>=60 mL/min/1.73m 2 [facility] HospitalHematocrit Auto (Bld) [Volume fraction]Ordered By: Сергей Arnett on 26-70-1816Otkekkzqrr (Bld) [Volume fraction]31.2 %Low 36.0-48.0[facility] HospitalHemoglobin [Mass/volume] in Blood Ordered By: Сергей Arnett on 40-62-7652Ysmhtplcpj (Bld) [Mass/Vol]10.1 g/dLLow 12.0-16.0[facility] HospitalLaboratory - Chemistry and Chemistry - challengeOrdered By: Сергей Arnett on 14-45-9204Stpoxhw [Mass/Vol]2.5 g/dLLow 3.4-5.0[facility] HospitalALP [Catalytic activity/Vol]90 U/L46-116 [facility] HospitalALT [Catalytic activity/Vol]15 U/L14-59 [facility] HospitalAST [Catalytic activity/Vol]8 U/YQil26-06 [facility] HospitalBilirubin [Mass/Vol]0.2 mg/dL0.2-1.0[facility] HospitalCalcium [Mass/Vol]8.7 mg/dL8.5-10.1FMercer County Community HospitalChloride [Moles/Vol]104 mmol/H18-416EbxyodkfqClinton Memorial HospitalCO2 [Moles/Vol]27.5 mmol/L21.0-32.0[facility] Creatinine [Mass/Vol]0.96 mg/dL0.55-1.02[facility] GFR/1.73 sq M.predicted MDRD (S/P/Bld) [Vol rate/Area]mL/min/{1.73_m2}>=60 mL/min/1.73m 2FMercer County Community HospitalGlucose [Mass/Vol]144 mg/dLHigh 74-106Cl[facility] HospitalPotassium [Moles/Vol]3.7 mmol/L3.5-5.1 [facility] HospitalProtein [Mass/Vol]6.5 g/dL6.4-8.2FMercer County Community Hospitalodium [Moles/Vol]142 mmol/Z652-897GrjboikgdClinton Memorial HospitalUrea nitrogen [Mass/Vol]13.0 mg/dL7.0-18.0[facility] HospitalUrea nitrogen/Creatinine [Mass ratio]13.5 mg/mgClinton Memorial HospitalBilirubin Ql (U)NegativeNEGATIVECl[facility] Hospital Glucose (U) [Mass/Vol]NegativeNEGATIVEClinton Memorial HospitalKetones Ql (U)NegativeNEGATIVEClinton Memorial HospitalpH (U)6.0 [pH]5.0-9.0 [facility] Centerpecific gravity (U) [Rel density]1.010 1.005-1.025Cl[facility] HospitalUrobilinogen Qn (U)0.2 {Zoraida'U}/dL0.2-1.0[facility] HospitalLaboratory - Chemistry and Chemistry - challengeOrdered By: Susie Bravo on 55-31-3108Xjpvzeb [Moles/Vol] 1.2 mmol/L0.4-2.0[facility] HospitalLaboratory - Hematology and Cell countsOrdered By: Сергей Arnett on 73-36-9967Ycjkpywb granulocytes/100 WBC (Bld)0.5 %0.0-0.5FMercer County Community HospitalLaboratory - Specimen informationOrdered By: Сергей Arnett on 25-07-1434Iximcwmbon (U)CLEARCLEAR [facility] HospitalColor (U)LT. YELLOWYELLOWClinton Memorial HospitalLaboratory - UrinalysisOrdered By: Сергей Arnett on 12-11-2024 Leukocyte esterase Test strip Ql (U)MODERATEAbnormalNEGATIVEClinton Memorial HospitalMucus Ql (Urine sed)SMALLAbnormalNONE SEENClinton Memorial HospitalNitrite Ql (U)NegativeNEGATIVECl[facility] Hospital Protein Ql (U)TRACE mg/dLNEG/TRACEClinton Memorial HospitalLeukocytes [#/volume] corrected for nucleated erythrocytes in Blood by Automated coun Ordered By: Сергей Arnett on 29-24-0635GZF corrected for nucl RBC Auto (Bld) [#/Vol]15.7 10 3/uLHigh4.0-11.0[facility] HospitalLymphocytes Auto (Bld) [#/Vol]Ordered By: Сергей Arnett on 31-59-6267Eegjhfqhtuc (Bld) [#/Vol]1.9 10 3/uL1.2-3.8[facility] HospitalLymphocytes/100 WBC Auto (Bld) Ordered By: Сергей Arnett on 29-74-1769Wbagctxxhnv/100 WBC (Bld)12.4 %Low20.5-60.0 [facility] Auto (RBC) [Entitic mass]Ordered By: Сергей Arnett on 61-46-7152HFX (RBC) [Entitic mass]28.3 pg26.7-34.0[facility] Auto (RBC) [Mass/Vol]Ordered By: Сергей Arnett on 12-11-2024 MCHC (RBC) [Mass/Vol]32.4 g/dL29.9-35.2FMercer County Community HospitalMCV Auto (RBC) [Entitic vol]Ordered By: Сергей Arnett on 40-04-6803LXU (RBC) [Entitic vol] 87.4 fL81.0-99.0[facility] HospitalMonocytes Auto (Bld) [#/Vol] Ordered By: Сергей Arnett on 55-26-1781Mijdsdimu (Bld) [#/Vol]1.3 10 3/uLHigh 0.3-0.8[facility] HospitalMonocytes/100 WBC Auto (Bld)Ordered By: Сергей Arnett on 53-64-7927Kumqpkbay/100 WBC (Bld)8.5 %1.7-12.0[facility] HospitalNeutrophils Auto (Bld) [#/Vol]Ordered By: Сергей Arnett on 04-46-5923Oxmhifzqemx (Bld) [#/Vol]12.2 10 3/uLHigh1.4-6.5FMercer County Community HospitalNeutrophils/100 WBC Auto (Bld)Ordered By: Сергей Arnett on 42-16-5784Itvkicbkuru/100 WBC (Bld)78.0 %High43.0-75.0[facility] HospitalNo Panel InformationOrdered By: Сергей Arnett on 16-17-9751Cikgrfxktko # (Auto)0.1 10 3/uL0.0-0.7FMercer County Community HospitalImmature Granulocyte # (Auto)0.08 10 3/uLHigh0.00-0.03[facility] HospitalUrine Bacteria SMALL #/HPFAbnormalNONE SEENClinton Memorial HospitalUrine Culture ReflexedYES-FRMCClinton Memorial HospitalUrine Occult BloodLARGEAbnormal NEGATIVEClinton Memorial HospitalUrine Other CastsNONE SEEN #/LPFNONE SEENClinton Memorial HospitalUrine Other CrystalsNone Seen #/HPFNone [facility] CenterUrine RBC0-2 #/HPF0-2FMercer County Community HospitalUrine Squamous Epithelial CellsFEW #/LPFAbnormalNONE/RAREClinton Memorial HospitalUrine OEP03-95 #/HPFAbnormalNONE SEENClinton Memorial HospitalPlatelet mean volume Auto (Bld) [Entitic vol]Ordered By: Сергей Arnett on 46-70-5504Fyrzdzcs mean volume (Bld) [Entitic vol]8.9 fLLow9.5-13.5 [facility] HospitalPlatelets Auto (Bld) [#/Vol]Ordered By: Сергей Arnett on 72-31-1488Tqjbuttrk (Bld) [#/Vol]529 10 3/gSUyil326-638SltvhxlacClinton Memorial HospitalRBC Auto (Bld) [#/Vol]Ordered By: Сергей Arnett on 54-15-5739EYN (Bld) [#/Vol]3.57 10 6/uLLow4.20-5.40[facility] Medical Centererum or plasma albumin/globulin mass ratioOrdered By: Сергей Arnett on 81-73-5183Srpgjvw/Globulin [Mass ratio]0.6 {ratio}[facility] Centererum or plasma anion gap determinationOrdered By: Сергей Arnett on 13-18-0974Snsvp gap [Moles/Vol]14.2 mmol/LFMercer County Community HospitalUrine Cultureon 56-67-1555Brppvzay identified Cx Nom (U)ORGANISM: Pseudomonas aeruginosa (O:PSEAER) [place] Count 75,000 Aerobic EVE Charge (NMIC56) SUSCEPTIBILITY [...] RESISTANT TO ALL B-LACTAM DRUGS. PERFORMED BY: [place] [address] PATHOLOGIST [employer] TANKER DRIVER KATHLEEN AGUAYO M.D.[facility] Emergency Physician GroupComment on above: Performed By: #### [facility] #### [place] [id number] USAUrine Cultureon [id number] identified Cx Nom (U) ORGANISM: Pseudomonas aeruginosa (O:PSEAER) [place] Count >100,000 Aerobic EVE Charge (NMIC56) SUSCEPTIBILITY [...] RESISTANT TO ALL B-LACTAM DRUGS. PERFORMED BY: [place] [address] PATHOLOGIST [employer] TANKER DRIVER KATHLEEN AGUAYO M.D.[facility] Emergency Physician GroupComment on above: Performed By: #### [facility] #### [address]Urine cultureOrdered By: Cornelius Garrison on 12-02-2024 Bacteria identified Cx Nom (U)Pseudomonas aeruginosaAbParkview Health Bryan HospitalBacteria identified Cx Nom (U)Pseudomonas aeruginosaAbCleveland Clinic Euclid HospitalAmbulatory Visit Summaryon [id number] Visit SummaryAmbulatory Visit Summary CRISTINE MANLEY :1960 Visit Date:11/26/2024 Ambulatory Visit Instructions Your Diagnosis Bladder cancer Gross hematuria Incomplete bladder emptying Smoker Your Care Team Attending Physician - WOODY TAVERAS, BRIE Primary Care Physician - CORNELIUS [...] Schedule the Following Appointments Follow Up with WOODY TAVERAS, GERALDO BAIRD When: Where: Medications What [...] can I use t (more content not included)...[facility] HamiltonUrology Office/Clinic Noteon [id number] Office/Clinic Note Urology Office/Clinic Note Chief Complaint [...] with voice recognition artificial intelligence software, specifically [employer], [place] and or [employer]. Substitutions may have occurred due to the [...] leiomyoma [diagnosis of exclusion]. Pt presented to [facility] ER 11/13/24 with gross hematuria of 11-day duration. Severe clot passage. Three-way Lau placed with CBI initiated. CT AP wo con 11/12/24 [facility] - There are areas of nodular [...] of tumors. Follow-up With When Contact Information WOODY TAVERAS, BRIE, URL Additional Instructions: Cysto in 3 mos Patient Education Steps to Quit Smoking Bladder Cancer IElvia, personally scribed for Dr. Mack on 11/26/2024 09:29:58. . Documentation recorded by the [facility] ward, accurately reflects the services(s) I performed and decisions made by me. Authenticated by Dr. Keith Godfrey on 11/26/2024 11:20:26. Problem List/Past Medical History Ongoing Antral ulcer Asthma Bladder cancer BMI 27.0-27.9,adult Chronic back pain Chronic GERD Chronic obstructive pulmonary disease Depression Early satiety Epigastric pain GERD (gastroesophagea (more content not included)...[facility] Health HamiltonComment on above:Result Comment: Electronically Signed By: BRIE MCKAY MD\.br\Date and Time Signed: 11/26/24 11:21 EDT\.br\Electronically Co- Signed By: Elvia Rey\.br\Date and Time Co-Signed: 11/26/24 09:30 EDT Ambulatory Visit Summaryon 40-32-5731Azodhlafto Visit SummaryAmbulatory Visit Summary TONY CRISTINE Hairston :1960 Visit Date:11/18/2024 Ambulatory Visit Instructions Your [...] BRIE MCKAY MD Where: [facility] [address], [address] [place] [address]- Medications What How Much When Instructions Unchanged [...] signed up for this yet, please contact [employer]) at [phone] to get signed up today. Language Information Language assistance services are available as needed. [facility] Health HamiltonActivated partial thromboplastin time (aPTT) in platelet poor plasma by coagulation aOrdered By: Gianni France on 66-54-0256fDOS Coag (PPP) [Time]25.6 s22.3-36.2FMercer County Community HospitalBasophils Auto (Bld) [#/Vol]Ordered By: Gianni France on 32-60-4539Svrzemncm (Bld) [#/Vol]0.1 10 3/uL0.0-0.1FMercer County Community HospitalBasophils/100 WBC Auto (Bld)Ordered By: Gianni France on 11-13-2024 Basophils/100 WBC (Bld)0.6 %0.2-2.0[facility] Eosinophils/100 WBC Auto (Bld)Ordered By: Gianni France on 11-13-2024 Eosinophils/100 WBC (Bld)2.1 %0.9-7.0[facility] Erythrocyte distribution width Auto (RBC) [Ratio]Ordered By: Gianni France on 16-25-7382Wgxmzkhuykr distribution width (RBC) [Ratio]13.8 % 11.0-15.0[facility] HospitalEstimated glomerular filtration rate (GFR) non- AmericanOrdered By: Gianni France on 44-60-3544JPF/1.73 sq M.predicted among non-blacks MDRD (S/P/Bld) [Vol rate/Area]mL/min/{1.73_m2} >=60 mL/min/1.73m 2FMercer County Community HospitalHematocrit Auto (Bld) [Volume fraction]Ordered By: Gianni France on 67-55-5621Ylmayxxrjt (Bld) [Volume fraction]33.7 %Low36.0-48.0[facility] HospitalHemoglobin [Mass/volume] in BloodOrdered By: Gianni France on 06-46-7141Wisdhrhdzy (Bld) [Mass/Vol]11.0 g/dLLow12.0-16.0[facility] HospitalINR in Platelet poor plasma by Coagulation assayOrdered By: Gianni Franec on 54-41-8379MIF Coag (PPP) [Relative time]0.98 {INR}[facility] HospitalComment on above:DESIRED INR:2.0-3.0 CONDITIONS NOT LISTED BELOW2.5-3.5 FOR PROSTHETIC HEART VALVE REPLACEMENT2.5-3.5 RECURRENT THROMBOSISLon 11-13-2024 L Specimen: [id number] Received: 11/13/24 Status: OMAR Aceves Num: [id number] Spec Type: Surgical Subm Dr: Brie Mckay MD Tissues: A Urinary Bladder - TUR (BLADDER TUMOR) Procedures: HE/6, Gross/Micro L5 Age/ Patient Sex Location Account Attending Physician Cristine Manley 64/F LABELL [id number] Brie Mckay MD SPEC NUM: [id number] RECD: 11/13/24 STATUS: OMAR ACEVES NUM: [id number] TORI: 11/13/[address] [facility] [address]: Brie Mckay MD ENTERED: 11/13/[address]: Tracy Matta SPEC TYPE: Surgical DEPT: [facility]EN [facility] ENTERED BY: [id number] RECV BY: [id number] ORDERED: HE/6, Gross/Micro L5 ORDERED: HE/6, Gross/Micro [...] and entirely submitted in A1?A6. (6, ns, [id number])J Microscopic Description Microscopic examination is performed. Specimen: [id number] Received: 11/13/24 Status: OMAR Aceves Num: [id number] Spec Type: Surgical Subm Dr: Brie Mckay MD Tissues: A Urinary Bladder - TUR (BLADDER TUMOR) Procedures: HE/, Gross/Micro L5 Patient: Cristine Manley [id number] (Continued) Specimen: [id number] Received: 11/13/24 (Continued) Signed (signature on file) Gianni Hutchinson MD 11/14/24 1301 Specimen: [id number] Received: 11/13/24 Status: OMAR Aceves Num: [id number] Spec Type: Surgical Subm Dr: Brie Mckay MD Tissues: A Urinary Bladder - TUR (BLADDER TUMOR) Procedures: HE/6, Gross/Micro L5 Patient: Cristine Manley [id number] (Continued) Specimen: [id number] Received: 11/13/24 (Continued) CPT Codes 63243 Specimen: [id number] Received: 11/13/24 Status: OMAR Aceves Num: [id number] Spec Type: Surgical Subm Dr: Brie Mckay MD Tissues: A Urinary Bladder - TUR (BLADDER TUMOR) Procedures: HE/6, Gross/Micro L5 Patient: Cristine Manley [id number] (Continued) Signed (signature on file) Gianni Hutchinson MD 11/14/24 1301Normal [facility] GroupLaboratory - Chemistry and Chemistry - challenge Ordered By: Gianni France on 28-87-0260Ndiklgu [Mass/Vol]8.9 mg/dL 8.5-10.1FMercer County Community HospitalChloride [Moles/Vol]108 mmol/LHigh 98-107[facility] HospitalCO2 [Moles/Vol]28.2 mmol/L21.0-32.0 [facility] HospitalCreatinine [Mass/Vol]0.65 mg/dL0.55-1.02 [facility] HospitalGFR/1.73 sq M.predicted MDRD (S/P/Bld) [Vol rate/Area]mL/min/{1.73_m2}>=60 mL/min/1.73m 2FMercer County Community Hospital Glucose [Mass/Vol]98 mg/kQ56-967GwwkrvhgiClinton Memorial HospitalMagnesium [Mass/Vol]2.0 mg/dL1.8-2.4FMercer County Community HospitalPotassium [Moles/Vol] 4.1 mmol/L3.5-5.1FMercer County Community Hospitalodium [Moles/Vol]143 mmol/L 136-145[facility] HospitalUrea nitrogen [Mass/Vol]21.0 mg/dLHigh 7.0-18.0[facility] HospitalUrea nitrogen/Creatinine [Mass ratio] 32.3 mg/mgClinton Memorial HospitalLaboratory - Hematology and Cell countsOrdered By: Gianni France on 61-79-5339Ddntbtkj granulocytes/100 WBC (Bld)0.3 %0.0-0.5FMercer County Community HospitalLeukocytes [#/volume] corrected for nucleated erythrocytes in Blood by Automated counOrdered By: Gianni France on 12-86-0460BUP corrected for nucl RBC Auto (Bld) [#/Vol] 9.8 10 3/uL4.0-11.0[facility] HospitalLymphocytes Auto (Bld) [#/Vol]Ordered By: Gianni France on 71-21-3999Ckpmdybkres (Bld) [#/Vol] 2.9 10 3/uL1.2-3.8[facility] HospitalLymphocytes/100 WBC Auto (Bld)Ordered By: Gianni France on 18-89-3036Dsinwdvcxii/100 WBC (Bld)29.7 %20.5-60.0[facility] HospitalMCH Auto (RBC) [Entitic mass]Ordered By: Gianni France on 31-61-4287HCS (RBC) [Entitic mass]29.5 pg26.7-34.0 [facility] HospitalMCHC Auto (RBC) [Mass/Vol]Ordered By: Gianni France on 14-87-6228HADC (RBC) [Mass/Vol]32.6 g/dL29.9-35.2 [facility] HospitalMCV Auto (RBC) [Entitic vol]Ordered By: Gianni France on 25-09-3659OHJ (RBC) [Entitic vol]90.3 fL81.0-99.0 [facility] HospitalMonocytes Auto (Bld) [#/Vol]Ordered By: Gianni France on 56-34-1152Qwbxmqjlp (Bld) [#/Vol]0.6 10 3/uL0.3-0.8 [facility] HospitalMonocytes/100 WBC Auto (Bld)Ordered By: Gianni France on 67-28-6533Zumbrldud/100 WBC (Bld)6.4 %1.7-12.0[facility] HospitalNeutrophils Auto (Bld) [#/Vol]Ordered By: Gianni France on 86-53-3041Pumwdsttjed (Bld) [#/Vol]6.0 10 3/uL1.4-6.5FMercer County Community HospitalNeutrophils/100 WBC Auto (Bld)Ordered By: Gianni France on 55-86-6939Dcmdfggbttd/100 WBC (Bld)60.9 %43.0-75.0[facility] HospitalNo Panel InformationOrdered By: Gianni France on 48-78-6370Ykatwrdmcga # (Auto)0.2 10 3/uL0.0-0.7FMercer County Community HospitalImmature Granulocyte # (Auto)0.03 10 3/uL0.00-0.03[facility] HospitalPlatelet mean volume Auto (Bld) [Entitic vol]Ordered By: Gianni France on 44-03-1555Ubrvfvls mean volume (Bld) [Entitic vol]9.8 fL 9.5-13.5FMercer County Community HospitalPlatelets Auto (Bld) [#/Vol]Ordered By: Gianni France on 86-07-2696Fbherhzxn (Bld) [#/Vol]295 10 3/nN847-334 [facility] HospitalProthrombin time (PT)Ordered By: Gianni France on 20-14-2323BT Coag (PPP) [Time]10.4 s9.0-11.6FMercer County Community HospitalRBC Auto (Bld) [#/Vol]Ordered By: Gianni France on 83-43-9659WBI (Bld) [#/Vol]3.73 10 6/uLLow4.20-5.40L[facility] Beachwood Medical Centererum or plasma anion gap determinationOrdered By: Gianni France on 99-55-3112Uocgx gap [Moles/Vol]10.9 mmol/LFMercer County Community Hospital Basophils Auto (Bld) [#/Vol]Ordered By: Delvin Campbell on 07-85-5421Ttattxbdg (Bld) [#/Vol]0.1 10 3/uL0.0-0.1FMercer County Community HospitalBasophils/100 WBC Auto (Bld)Ordered By: Delvin Campbell on 37-41-9006Wpkddahsu/100 WBC (Bld)0.8 %0.2-2.0[facility] HospitalEosinophils/100 WBC Auto (Bld)Ordered By: Delvin Campbell on 54-37-4750Hxkdkbcodoh/100 WBC (Bld)3.3 %0.9-7.0[facility] HospitalErythrocyte distribution width Auto (RBC) [Ratio]Ordered By: Delvin Campbell on 17-39-7770Pvfigijwket distribution width (RBC) [Ratio]13.7 %11.0-15.0[facility] HospitalEstimated glomerular filtration rate (GFR) non- AmericanOrdered By: Delvin Campbell on 90-25-1341OMJ/1.73 sq M.predicted among non-blacks MDRD (S/P/Bld) [Vol rate/Area]mL/min/{1.73_m2}>=60 mL/min/1.73m 2FMercer County Community HospitalHematocrit Auto (Bld) [Volume fraction]Ordered By: Delvin Campbell on 36-80-9526Fcrssmmixt (Bld) [Volume fraction]35.5 %Low36.0-48.0[facility] HospitalHemoglobin [Mass/volume] in BloodOrdered By: Delvin Campbell on 10-85-3788Vpgtwmygaw (Bld) [Mass/Vol]11.4 g/dLLow12.0-16.0[facility] CenterLaboratory - Chemistry and Chemistry - challengeOrdered By: Delvin Campbell on 11-12-2024 Calcium [Mass/Vol]9.9 mg/dL8.5-10.1FMercer County Community HospitalChloride [Moles/Vol]105 mmol/L18-864DrimhgchaClinton Memorial HospitalCO2 [Moles/Vol]29.6 mmol/L21.0-32.0[facility] HospitalCreatinine [Mass/Vol]0.82 mg/dL 0.55-1.02[facility] HospitalGFR/1.73 sq M.predicted MDRD (S/P/Bld) [Vol rate/Area]mL/min/{1.73_m2}>=60 mL/min/1.73m 2FMercer County Community HospitalGlucose [Mass/Vol]107 mg/vCJykg86-097ElvmwmbczCl[facility] Hospital Potassium [Moles/Vol]3.5 mmol/L3.5-5.1FMercer County Community Hospitalodium [Moles/Vol]141 mmol/M348-902RtcuwfjmnClinton Memorial HospitalUrea nitrogen [Mass/Vol]20.0 mg/dLHigh7.0-18.0[facility] HospitalUrea nitrogen/Creatinine [Mass ratio]24.4 mg/mgCl[facility] Hospital Bilirubin Ql (U)NegativeNEGATIVEClinton Memorial HospitalGlucose (U) [Mass/Vol]NegativeNEGATIVEClinton Memorial HospitalKetones Ql (U)TRACE mg/dLAbnormalNEGATIVEClinton Memorial HospitalpH (U)7.0 [pH]5.0-9.0 [facility] Medical Centerpecific gravity (U) [Rel density]1.020 1.005-1.025Cl[facility] HospitalUrobilinogen Qn (U)1.0 {Zoraida'U}/dL0.2-1.0[facility] HospitalLaboratory - Hematology and Cell countsOrdered By: Delvin Campbell on 31-45-0785Xieruwff granulocytes/100 WBC (Bld)0.3 %0.0-0.5FMercer County Community HospitalLaboratory - Specimen informationOrdered By: Delvin Campbell on 00-84-9186Fouhcdqyjr (U)CLEARCLEAR [facility] HospitalColor (U)DK. REDYELLOWClinton Memorial HospitalLaboratory - UrinalysisOrdered By: Delvin Campbell on 11-12-2024 Leukocyte esterase Test strip Ql (U)TRACEAbnormalNEGATIVEClinton Memorial HospitalMucus Ql (Urine sed)NONE SEENNONE SEENClinton Memorial HospitalNitrite Ql (U)PositiveAbnormalNEGATIVEClinton [facility] Hospital Protein Ql (U)>=300 mg/dLAbnormalNEG/TRACECl[facility] Hospital Leukocytes [#/volume] corrected for nucleated erythrocytes in Blood by Automated counOrdered By: Delvin Campbell on 17-55-8625ODC corrected for nucl RBC Auto (Bld) [#/Vol]7.7 10 3/uL4.0-11.0[facility] HospitalLymphocytes Auto (Bld) [#/Vol]Ordered By: Delvin Campbell on 82-87-7063Sfgckvwpmrh (Bld) [#/Vol]2.5 10 3/uL1.2-3.8[facility] HospitalLymphocytes/100 WBC Auto (Bld)Ordered By: Delvin Campbell on 33-96-0585Dzwcpmczrgd/100 WBC (Bld)32.9 % 20.5-60.0[facility] Auto (RBC) [Entitic mass]Ordered By: Delvin Campbell on 64-45-8060CEM (RBC) [Entitic mass]29.2 pg26.7-34.0[facility] HospitalMCHC Auto (RBC) [Mass/Vol]Ordered By: Delvin Campbell on 90-59-7816ADZW (RBC) [Mass/Vol]32.1 g/dL29.9-35.2FMercer County Community HospitalMCV Auto (RBC) [Entitic vol]Ordered By: Delvin Campbell on 98-58-9662ZHA (RBC) [Entitic vol]91.0 fL81.0-99.0[facility] HospitalMonocytes Auto (Bld) [#/Vol]Ordered By: Delvin Campbell on 71-86-2991Nhqamlyen (Bld) [#/Vol] 0.6 10 3/uL0.3-0.8[facility] HospitalMonocytes/100 WBC Auto (Bld) Ordered By: Delvin Campbell on 18-18-8003Kbrfxotci/100 WBC (Bld)8.1 %1.7-12.0 [facility] HospitalNeutrophils Auto (Bld) [#/Vol]Ordered By: Delvin Campbell on 88-23-2107Jgehqkwlipi (Bld) [#/Vol]4.2 10 3/uL1.4-6.5FMercer County Community HospitalNeutrophils/100 WBC Auto (Bld)Ordered By: Delvin Campbell on 94-96-4596Tacsflwhtfj/100 WBC (Bld)54.6 %43.0-75.0[facility] HospitalNo Panel InformationOrdered By: Delvin Campbell on 87-64-5164Ndgzrzpiipx # (Auto)0.3 10 3/uL0.0-0.7FMercer County Community HospitalImmature Granulocyte # (Auto)0.02 10 3/uL0.00-0.03[facility] HospitalUrine BacteriaNONE SEEN #/HPFNONE SEENClinton Memorial HospitalUrine Culture ReflexedNO [facility] HospitalUrine Occult BloodLARGEAbnormalNEGATIVE [facility] HospitalUrine Other CastsNONE SEEN #/LPFNONE SEEN [facility] HospitalUrine Other CrystalsNone Seen #/HPFNone Seen [facility] HospitalUrine YWW69-97 #/HPFAbnormal0-2FMercer County Community HospitalUrine Squamous Epithelial CellsNONE SEEN #/LPFNONE/RARE [facility] HospitalUrine WBC0-2 #/HPFAbnormalNONE SEENClinton Memorial HospitalPlatelet mean volume Auto (Bld) [Entitic vol]Ordered By: Delvin Campbell on 29-63-4658Hysrskgs mean volume (Bld) [Entitic vol]9.5 fL 9.5-13.5FMercer County Community HospitalPlatelets Auto (Bld) [#/Vol]Ordered By: Delvin Campbell on 86-06-9923Lbxkajjzk (Bld) [#/Vol]301 10 3/oR695-095LdkvnhgifClinton Memorial HospitalRBC Auto (Bld) [#/Vol]Ordered By: Delvin Campbell on 88-94-6021HWO (Bld) [#/Vol]3.90 10 6/uLLow4.20-5.40L[facility] Beachwood Medical Centererum or plasma anion gap determinationOrdered By: Delvin Campbell on 59-63-5897Ilovt gap [Moles/Vol]9.9 mmol/LFMercer County Community Hospital Laboratory - Chemistry and Chemistry - challengeOrdered By: Carlin Oleary on 22-07-6962Nqrrdnozw Ql (U)COLOR INTERFERENCEAbnormalNEGMercy Health Defiance HospitalKetones Ql (U)COLOR INTERFERENCE mg/dLAbnormLakeHealth Beachwood Medical Centerpecific gravity (U) [Rel density]1.0151.005-1.025 [facility] HospitalLaboratory - Specimen informationOrdered By: Carlin Oleary on 99-36-9059Tzntmmdhfx (U)CLOUDYAbnormalCLEARFMercer County Community HospitalColor (U)DK. REDYELLOWClinton Memorial HospitalLaboratory - UrinalysisOrdered By: Carlin Oleary on 41-04-9797Dhsoqybsy esterase Test strip Ql (U)COLOR INTERFERENCEAbnoecu health roanoke-chowan hospitalNEGMercy Health Defiance HospitalMucus Ql (Urine sed)NONE [facility] HospitalNitrite Ql (U) COLOR INTERFERENCEAbnormalFayette County Memorial HospitalProtein Ql (U)COLOR INTERFERENCE mg/dLAbnormalNEG/TRACEClinton Memorial HospitalNo Panel InformationOrdered By: Carlin Oleary on 46-26-6580Dnwgq BacteriaTRACE #/HPF AbnormalNONE [facility] HospitalUrine Culture ReflexedYES-Togus VA Medical CenterUrine Glucose (UA)COLOR INTERFERENCE mg/dL AbnormalNEGMercy Health Defiance HospitalUrine Occult BloodCOLOR INTERFERENCEAbnormnvNEGMercy Health Defiance HospitalUrine Other Casts NONE SEEN #/LPFNONE [facility] HospitalUrine Other Crystals None Seen #/HPFNone [facility] CenterUrine pHCOLOR INTERFERENCEAbnormal5.0-9.0[facility] HospitalUrine RBC>100 #/HPF Abnormal0-2FMercer County Community HospitalUrine Squamous Epithelial CellsNONE SEEN #/LPFNONE/RAREClinton Memorial HospitalUrine UrobilinogenCOLOR INTERFERENCE EU/dLAbnormal0.2-1.0[facility] HospitalUrine UDH27-37 #/HPFAbnormalNONE SEENClinton Memorial HospitalUrine Cultureon 43-23-1869Yxvqiksp identified Cx Nom (U)>100,000 colonies/ml mixed bacterial skin contaminants 2 Days PERFORMED BY: [facility] [address] [place] [address] PATHOLOGIST [employer] TANKER DRIVER KATHLEEN AGUAYO M.D.NormalBroward Health Medical Center Physician GroupComment on above: Performed By: #### CUU #### [facility] [address] [place] [address] USAUrine cultureOrdered By: Cornelius Garrison on 11-03-2024 Bacteria identified Cx Nom (U)2 DaysClinton Memorial HospitalC DIFFICILE BY PCRon [id number] KEW9EedxsxsjXynkclMxdbxjphbdo NegativeProFalls Community Hospital And ClinicComment on above:Result Comment: Assay methodology is nucleic acid amplification by real-time PCR for detection of C. difficile toxin gene sequences performed on [employer] Instrument System.Performed By: #### CDFPCR #### [facility] ([facility]) [address] [place] [address] VIRTOXIGENIC C DIFFNegativeNormalNegativeProFalls Community Hospital And ClinicComment on above:Performed By: #### CDFPCR #### [facility] ([facility]) [address] [place] [address] VIRCBC WITH AUTO DIFFERENTIALon 00-03-2911PSPAWLNNA ABSOLUTE COUNT (10*3/UL) BY AUTOMATED COUNT0.1 10*3/uLNormal0.0-0.2ProMedica Santa Barbara Cottage HospitalComment on above:Performed By: #### CBCA #### [facility] ([facility]) [address] [place] [address] VIRBASOPHILS RELATIVE PERCENT BY AUTOMATED COUNT0.7 %Normal White HospitalComment on above:Performed By: #### CBCA #### [facility] ([address] [place] [address] VIRCELLAVISION DIFFERENTIAL TYPEAUTOMATED DIFFERENTIALNormal White HospitalComment on above:Performed By: #### CBCA #### [facility] ([address] [place] [address] VIREosinophils (Bld) [#/Vol]0.1 10*3/uLNormal0.0-0.4White HospitalComment on above:Performed By: #### CBCA #### [address] [place] [address] VIREOSINOPHILS RELATIVE PERCENT BY AUTOMATED COUNT1.2 %Normal White HospitalComment on above:Performed By: #### CBCA #### [facility] ([address] [place] [address] VIRErythrocyte distribution width (RBC) [Ratio]13.2 %Normal 11.5-15White HospitalComment on above:Performed By: #### CBCA #### [address] [place] [address] VIRHematocrit (Bld) [Volume fraction]41.7 %Yigwiv21-16 White HospitalComment on above:Performed By: #### CBCA #### [facility] ([address] [place] [address] VIRHemoglobin (Bld) [Mass/Vol]14.1 g/vRYqzurq55.7-15.5 [facility] HospitalComment on above:Performed By: #### CBCA #### [address] [place] [address] VIRLYMPHOCYTES ABSOLUTE COUNT (10*3/UL) BY AUTOMATED COUNT1.7 10*3/uLNormal1.0-3.5PWVUMedicine Barnesville HospitalComment on above:Performed By: #### CBCA #### [facility] ([address] [place] [address] VIRLYMPHOCYTES RELATIVE PERCENT BY AUTOMATED COUNT18.1 %Normal White HospitalComment on above:Performed By: #### CBCA #### [facility] ([address] [place] [address] VIRMCH (RBC) [Entitic mass]29.8 vdCcbhno32-34PwiKumvymFalls Community Hospital And ClinicComment on above:Performed By: #### CBCA #### [facility] ([address] [place] [address] VIRMCHC (RBC) [Mass/Vol]33.9 g/aTKhugop75-22YogBptdkrWhite HospitalComment on above:Performed By: #### CBCA #### [facility] ([address] [place] [address] VIRMCV (RBC) [Entitic vol]88 rGRttzpd30-309LizSofkcp [facility]remont HospitalComment on above:Performed By: #### CBCA #### [facility] ([address] [place] [address] VIRMONOCYTES ABSOLUTE COUNT (10*3/UL) BY AUTOMATED COUNT1.3 10*3/uLHigh0.0-0.9White HospitalComment on above:Performed By: #### CBCA #### [facility] ([address] [place] [address] VIRMONOCYTES RELATIVE PERCENT BY AUTOMATED COUNT14.3 %Normal White HospitalComment on above:Performed By: #### CBCA #### [facility] ([address] [place] [address] VIRNEUTROPHILS ABSOLUTE COUNT BY AUTOMATED COUNT6.1 10*3/uL Normal1.5-6.6White HospitalComment on above:Performed By: #### CBCA #### [facility] ([facility]) [address] [place] [address] [place] [address] VIRNEUTROPHILS RELATIVE PERCENT BY AUTOMATED COUNT65.7 %Normal White HospitalComment on above:Performed By: #### CBCA #### [facility] ([address] [place] [address] VIRPlatelet mean volume (Bld) [Entitic vol]7.7 fLNormal7-12 White HospitalComment on above:Performed By: #### CBCA #### [facility] ([address] [place] [address] VIRPlatelets (Bld) [#/Vol]376 10*3/iFHdzyft264-981TenNanyha [facility]remont HospitalComment on above:Performed By: #### CBCA #### [facility] ([address] [place] [address] VIRRBC COUNT4.74 X10E12/LNormal3.8-5.2PWVUMedicine Barnesville HospitalComment on above:Performed By: #### CBCA #### [facility] ([address] [place] [address] VIRWBC (Bld) [#/Vol]9.3 10*3/uLNormal4-11White HospitalComment on above:Performed By: #### CBCA #### [facility] ([address] [place] [address] VIRCOMPREHENSIVE METABOLIC PANELon 96-89-0100Ehremwe [Mass/Vol]3.5 g/dLNormal3.2-5.3PWVUMedicine Barnesville HospitalComment on above: Performed By: #### CMP #### [facility] ([place] [address] [place] [address] VIRALP [Catalytic activity/Vol]69 U/UYwwwlb18-293SomDtfuuwFalls Community Hospital And ClinicComment on above:Performed By: #### CMP #### [facility] ([place] [address] [place] [address] VIRALT [Catalytic activity/Vol]20 U/LNormal<=31ProMedI-70 Community Hospital HospitalComment on above:Performed By: #### CMP #### [facility] ([place] [address] [facility] [address] VIRAnion gap [Moles/Vol]10 mmol/LNormal5-15ProFalls Community Hospital And ClinicComment on above:Performed By: #### CMP #### [facility] ([place] [address] [place] [address] VIRAST [Catalytic activity/Vol]14 U/LNormal<=41ProFalls Community Hospital And ClinicComment on above:Performed By: #### CMP #### [facility] ([place] [address] [place] [address] VIRBilirubin [Mass/Vol]0.4 mg/dLNormal0.3-1.2PWVUMedicine Barnesville HospitalComment on above:Performed By: #### CMP #### [facility] ([place] [address] [place] [address] VIRCalcium [Mass/Vol]8.9 mg/dLNormal8.5-10.5PChildren's Hospital Colorado, Colorado Springs HospitalComment on above:Performed By: #### CMP #### [facility] ([place] [address] [place] [address] VIRChloride [Moles/Vol]102 mmol/HCcvrat53-182TcoOlzlrfFalls Community Hospital And ClinicComment on above:Performed By: #### CMP #### [facility] ([address] [address] VIRCO2 [Moles/Vol]25 mmol/WYnbjdm78-81KxmLojjgn [facility] HospitalComment on above:Performed By: #### CMP #### [address] [address] VIRCreatinine [Mass/Vol]0.89 mg/dLNormal0.40-1.00ProFalls Community Hospital And ClinicComment on above:Result Comment: METHOD TRACEABLE TO IDMS STANDARDPerformed By: #### CMP #### [address] [address] VIRGFR/1.73 sq M.predicted among non-blacks MDRD (S/P/Bld) [Vol rate/Area]72 mL/min/{1.73_m2}Normal>=60ProFalls Community Hospital And ClinicComment on above:Result Comment: eGFR not reported due to non-numeric value for Creatinine. Reported eGFR is based on the CKD-EPI 2021 equation that does not use a race coefficient.Performed By: #### CMP #### [address] [address] VIRGlucose [Mass/Vol]111 mg/kXSite38-62NcvTlutvgFalls Community Hospital And ClinicComment on above:Performed By: #### CMP #### [address] [address] VIRPotassium [Moles/Vol]3.4 mmol/LLow3.5-5.0ProFalls Community Hospital And ClinicComment on above:Performed By: #### CMP #### [address] [address] VIRProtein [Mass/Vol]6.6 g/dLNormal6.0-8.0ProFalls Community Hospital And ClinicComment on above:Performed By: #### CMP #### [address] [place] [address] VIRSodium [Moles/Vol]137 mmol/HFddtjb593-472BwhNztdch Fremont HospitalComment on above:Performed By: #### CMP #### [facility] ([facility]) [address] [place] [address] VIRUrea nitrogen [Mass/Vol]20 mg/dLNormal5-27ProFalls Community Hospital And ClinicComment on above:Performed By: #### CMP #### [facility] ([facility]) [address] [place] [address] VIRCT ABDOMEN AND PELVIS W CONTon 60-46-1905RF ABDOMEN AND PELVIS W CONTCT ABDOMEN AND [...] by Chico Cordova MD on 10/01/2024 8:37 AMNormalWhite HospitalGI PANEL STOOL PATHOGEN PANELon 60-70-6107YJXDBIXODGPai detectedNormal Not DetectedProFalls Community Hospital And ClinicComment on above:Performed By: #### GIP #### [facility] ([facility]) [address] [place] [address] VIRAGGREGATIVE E COLINot detectedNormalNot DetectedProFalls Community Hospital And ClinicComment on above:Performed By: #### GIP #### [facility] ([facility]) [address] [place] [address] VIRASTROVIRUSNot detectedNormalNot DetectedWhite HospitalComment on above:Performed By: #### GIP #### [facility] ([facility]) [address] [place] [address] VIRCAMPYLOBACTERDetectedAbnormalNot DetectedProFalls Community Hospital And ClinicComment on above:Result Comment: Detects the following: C. jejuni, C. coli, C. upsaliensis.Performed By: #### GIP #### [facility] ([facility]) [address] [place] [address] VIRCRYPTOSPORIDIUMNot detectedNormalNot DetectedProFalls Community Hospital And ClinicComment on above:Performed By: #### GIP #### [facility] ([facility]) [address] [place] [address] VIRCYCLOSPORANot detectedNormalNot DetectedProFalls Community Hospital And ClinicComment on above:Performed By: #### GIP #### [facility] ([facility]) [address] [place] [address] VIRE HISTOLYTICANot detectedNormalNot DetectedProFalls Community Hospital And ClinicComment on above:Performed By: #### GIP #### [facility] ([facility]) [address] [place] [address] VIRGIARDIA LAMBLIANot detectedNormalNot DetectedProCommunity Memorial Hospital HospitalComment on above:Performed By: #### GIP #### [facility] ([facility]) [address] [place] [address] VIRNOROVIRUSNot detectedNormalNot DetectedProCommunity Memorial Hospital HospitalComment on above:Performed By: #### GIP #### [facility] ([facility]) [address] [place] [address] VIRPATHOGENIC E COLIDetectedAbnormalNot DetectedProFalls Community Hospital And ClinicComment on above:Result Comment: Enteropathogenic Escherichia coliPerformed By: #### GIP #### [facility] ([facility]) [address] [place] [address] VIRPLESIOMONASNot detectedNormalNot DetectedProCommunity Memorial Hospital HospitalComment on above:Performed By: #### GIP #### [facility] ([facility]) [address] [place] [address] VIRROTAVIRUS ANot detectedNormalNot DetectedProCommunity Memorial Hospital HospitalComment on above:Performed By: #### GIP #### [facility] ([facility]) [address] [place] [address] VIRSALMONELLANot detectedNormalNot DetectedProCommunity Memorial Hospital HospitalComment on above:Performed By: #### GIP #### [facility] ([facility]) [address] [place] [address] VIRSAPOVIRUSNot detectedNormalNot DetectedProCommunity Memorial Hospital HospitalComment on above:Performed By: #### GIP #### [facility] ([facility]) [address] [place] [address] VIRSHIGA TOXIN E COLINot detectedNormalNot DetectedProCommunity Memorial Hospital HospitalComment on above:Performed By: #### GIP #### [facility] ([facility]) [address] [place] [address] VIRSHIGELLA-E COLINot detectedNormalNot DetectedProFalls Community Hospital And ClinicComment on above:Performed By: #### GIP #### [facility] ([facility]) [address] [place] [address] VIRTOXIGENIC E COLINot detectedNormalNot DetectedProFalls Community Hospital And ClinicComment on above:Performed By: #### GIP #### [facility]) [address] [place] [address] VIRVIBRIONot detectedNormalNot DetectedProFalls Community Hospital And ClinicComment on above:Performed By: #### GIP #### [facility]) [address] [place] [address] VIRVIBRIO CHOLERAENot detectedNormalNot DetectedProFalls Community Hospital And ClinicComment on above:Performed By: #### GIP #### [facility]) [address] [place] [address] JURGEN. ENTEROCOLITICANot detectedNormalNot DetectedProFalls Community Hospital And ClinicComment on above:Performed By: #### GIP #### [facility]) [address] [place] [address] VIRLIPASEon 39-46-4657Ggqmxu [Catalytic activity/Vol]32 U/L Ouumwa18-88WbtJlwqlcFalls Community Hospital And ClinicComment on above:Performed By: #### LIPA #### [facility] ([facility]) [address] [place] [address] VIRMAGNESIUMon 93-44-2071Doqyoarva [Mass/Vol]1.9 mg/dLNormal 1.8-2.6ProFalls Community Hospital And ClinicComment on above:Performed By: #### MG #### [facility] ([facility]) [address] [place] [address] VIRPOCT NURSING URINE MACROSCOPIC UAon 39-18-9741ZLALRTTKK SHANT NegativeNormalNegativeProFalls Community Hospital And ClinicComment on above:Performed By: #### NUM #### [facility] ([address] [address] VIRBLOOD/HGB NURModerateAbnormalNegativeWhite HospitalCombeaumont hospital on above:Performed By: #### NUM #### [facility] ([address] [address] VIRGLUCOSE NURNegativeNerstrandNegativeWhite Hospital Comment on above:Performed By: #### NUM #### [facility] ([address] [address] VIRKETONES NURNegativeNormnvNegativeWhite Hospital Comment on above:Performed By: #### NUM #### [facility] ([address] [address] VIRLEUKOCYTE ESTERASE NURNegativeNormalNegativeWhite HospitalComment on above:Performed By: #### NUM #### [facility] ([address] [address] VIRNITRITE NURNegativeNoecu health roanoke-chowan hospitalNegDayton Children's Hospital Comment on above:Performed By: #### NUM #### [facility] ([address] [address] VIRPH NUR6.3Djnvgn7.0, 6.0, 6.5, 7.0, 7.5, 8.0, 8.5, 5.5 White HospitalComment on above:Performed By: #### NUM #### [facility] ([address] [place] [address] VIRPROTEIN NURTraceAbbeaumontNegativeWhite Hospital Comment on above:Performed By: #### NUM #### [facility] ([address] [place] [address] VIRSPECIFIC GRAVITY SHANT<=1.969Ovdyecui0.010, 1.015, 1.020, 1.025White HospitalComment on above:Performed By: #### NUM #### [facility] ([facility]) [address] [place] [address] [place] [address] VIRUROBILINOGEN NUR0.2 E.U./dLNormalProFalls [facility] Comment on above:Performed By: #### NUM #### [facility] ([facility]) [address] [place] [address] VIRCT Spine Lumbar Myelogram w/ Contraston 85-34-0024AQ Spine Lumbar Myelogram w/ ContrastCLINICAL HISTORY: Pain [...] narrowing as detailed above. Radiation Dose Estimate: CTDI(mGy):0.323680 / / / kVp:120.622481 / mAs:0.308832 / / / DLP(mGy- cm):3.919365Dfsr Part: CTDI(mGy):21.828045 / / / kVp:120.526022 / mAs:230.658794 / / / DLP(mGy- cm):616.038102Dxfm Part: Final Dictated by: Alexey Morgan MD Dictated DT/TM: 07.30.2024 12:27 pm Signed by: Alexey Morgan MD Signed (Electronic Signature): 07.30.2024 12:38 pm (If Report Is Signed, Electronically Signed in Other Vendor System)Normal [facility] - DublinPTon 68-77-2520AZN Coag (PPP) [Relative time]0.9 {INR}Normal<=3.5BMercy Health Willard HospitalComment on above:Result Comment: INR has no normal range. INR Therapeutic range is: 2.0-3.0 (AF, CVA, TIAs, DVT prophylaxis, acute DVT) 2.5-3.5 ([facility] heart valves, recurrent thrombosis/emboli)Performed By: #### PTINR #### [address] [address] Coag (PPP) [Time]10.4 iPtqybk62.2-12.9BMercy Health Willard HospitalComment on above:Performed By: #### PTINR #### [address] [address]NUMni 44-19-3344nIXR Coag (Bld) [Time]30.8 wNmpfun08.1-36.5 [facility] - DublinComment on above:Performed By: #### PTT #### [address] [address]Wtkmaakb Counton 02-37-4530Yvcgxpol024 x10*3/ioEUpkayz488-634 [facility] - DublinComment on above:Performed By: #### PLTS #### [address] [address] Myelography Lumbosacral Spineon 87-37-4752VN Myelography Lumbosacral SpineCLINICAL HISTORY: Radiculopathy. EXAMINATION: A [...] Is Signed, Electronically Signed in Other Vendor System)[facility] HospitalNeurosurgery Office/Clinic Noteon 06-06-2024 Neurosurgery Office/Clinic NoteChief Complaint back follow up History of Present Illness The patient is a pleasant 64-year-old right-handed female with history of chronic nicotine use, asthma and recently diagnosed COPD for which she is planned to see a neuropathologist in the near future. She also has [...] therapy without benefit. 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 Oral narcotics including Points which makes pain tolerable though does not resolve. Topical agents including lidocaine patches and Bengay with limited benefit. Pain management injection modalities years ago with temporary benefit lasting only a few days. Physical therapy years ago without significant benefit. Chiropractic manipulation x 1 visit without benefit therefore patient never returned. Activity modification [1] Pain management injection modalities through [facility]. Initial injection targeted left L4-5 which [...] cm craniocaudally. No si (more content not included)...[facility] HospitalProvider Letteron 06-06-2024 Provider Letter Cornelius Garrison MD [address] [place] [address] [place] [address] Re: Cristine Manley Date of Visit: 06/06/2024 Dear Cornelius Garrison MD, This patient was recently seen in the neurosurgical office. Please see attached note for further details. Let me know if you have any questions or concerns. Sincerely, DEMARCUS Gan Providers: The following document(s) were included in the letter: June 06, 2024 09:36:40 EST - (06/06/2024) [facility] HospitalLon [facility]L Specimen: [id number] Received: 04/24/24 Status: OMAR Aceves Num: [id number] Spec Type: Cytology Subm Dr: Cornelius Garrison MD Tissues: A FNA SLIDES NOPATH (INF RT THY) Procedures: Cyto Int and Re, PAPSTN/5 Age/ Patient Sex Location Account Attending Physician Cristine Manley 64/F LABELL [id number] Cornelius Garrison MD SPEC NUM: [id number] RECD: 04/24/24 STATUS: OMAR ACEVES NUM: [id number] TORI: 04/22/24- SUBM DR: Cornelius Garrison MD ENTERED: 04/24/[address] [facility] [address]: Les Lee MD SPEC TYPE: Cytology DEPT: KEN NCYT ENTERED BY: [id number] RECV BY: [id number] ORDERED: Cyto Int and Re, PAPSTN/5 ORDERED: Cyto Int and Re, PAPSTN/5 Supplemental Report Addendum 1 Entered: 05/10/24-1132 Supplemental for findings of [facility]ITALA GENOMIC SEQUENCING ASSEMBLY MACHINE FEEDER: -Ensemble Seo Professional -Benign (risk of malignancy 4%) -Xpression [place] -N/A -Other Classifiers -BRAF p. V600E c. 1799T>A: Negative -RET/PTC1: Not detected -RET/PTC3: Not detected -MTC: Negative -Parathyroid: Negative TERT PROMOTER REGION: -Tests (2) not Performed (TNP) Specimen: [id number] Received: 04/24/24 Status: OMAR Lopestyree Num: [id number] Spec Type: Cytology Subm Dr: Cornelius Garrison MD Tissues: A FNA SLIDES NOPATH (INF RT THY) Procedures: Cyto Int and Re, PAPSTN/5 Patient: Cristine Manley [id number] (Continued) Specimen: [id number] Received: 04/24/24 (Continued) Supplemental Report (Continued) Signed (signature on file) Gail Sheth MD 04/24/24 1439 Specimen: [id number] Received: 04/24/24 Status: OMAR Aceves Num: [id number] Spec Type: Cytology Subm Dr: Cornelius Garrison MD Tissues: A FNA SLIDES NOPATH (INF RT THY) Procedures: Cyto Int and Re, PAPSTN/5 Patient: Cristine Manley [id number] (Continued) Specimen: [id number] Received: 04/24/24 (Continued) Supplemental Report (Continued) Addendum Signed (signature on file) Pedro-Diogenes Sheth MD 05/10/24 1132 Pathological Diagnosis Right thyroid nodule, inferior, FNA cytology -Adequate follicular groups in the ThinPrep smear, appropriate for assessment, consisting of small to occasionally slightly larger and reactive follicular cells, suggesting dimorphic population and the category 3 [place] system, atypia of the undetermined significance, otherwise [...] vial stored at -20 for microscopic examination. (LA/ok) Microscopic Description Microscopic examinations are performed supporting the above interpretation CPT Codes 06908 Specimen: [id number] Received: 04/24/24 Status: OMAR Aceves Num: [id number] Spec Type: Cytology Subm Dr: Cornelius Garrison MD Tissues: A FNA SLIDES NOPATH (INF RT THY) Procedures: Cyto Int and Re, PAPSTN/5 Patient: Cristine Manley Yovanny [id number] (Continued) Signed (signature on file) Pedro-Diogenes Sheth MD 04/24/[address] [place] [address] Physician GroupEMG 2 Extremitieson 53-43-5903RVV/NCS BLE Right L5/S1 radic Francisco S1/2 radicNOMS HealthcareNOMS HealthcareNVC 9-10 Nerveson 00-93-8137NTE/NCS BLE Right L5/S1 radic Francisco S1/2 radicNOMS HealthcareNOMS HealthcareProvider Letteron 20-46-1535Dianlmtx Letter Cornelius Garrison MD [address] [place] [address] [place] [address] Re: Cristine Manley Date of Visit: 03/25/2024 Dear Cornelius Garrison MD, This patient was recently seen in the neurosurgical office. Please see attached note for further details. Let me know if you have any questions or concerns. Sincerely, DEMARCUS Gan Providers: The following document(s) were included in the letter: March 25, 2024 17:40:13 EST - (03/25/2024) [facility]surgery [facility] HospitalNeuro[facility] Office/Clinic Noteon 03-25-2024 Neurosurgery Office/Clinic NoteChief Complaint CT thoracic, lumbar, XR lumbar, hips and neck review History of Present Illness The patient is a pleasant 64-year-old right-handed female with history of chronic nicotine use, asthma and recently diagnosed COPD for which she is planned to see a neuropathologist in the near future. She also has [...] though does not resolve. Oral narcotics including Points which makes pain tolerable though does not [...] C4-5. Listhesis increases slightl (more content not included)...NormalSelect [facility] Rehabilitation Hospital - DublinBasophils Auto (Bld) [#/Vol]on 97-30-9320Qhfxookjp (Bld) [#/Vol]Automated basophil count0.0-0.1FMercer County Community HospitalBasophils/100 WBC Auto (Bld)on 64-20-9037Owfhbcswf/100 WBC (Bld)Automated basophil %0.2-2.0[facility] HospitalEosinophils/100 WBC Auto (Bld)on 03-21-2024 Eosinophils/100 WBC (Bld)Automated eosinophil %0.9-7.0[facility] HospitalErythrocyte distribution width Auto (RBC) [Ratio]on 90-27-5512Ptnkfredshc distribution width (RBC) [Ratio]Erythrocyte distribution width [Ratio] by Automated count11.0-15.0[facility] HospitalHematocrit Auto (Bld) [Volume fraction]on 14-38-5174Ezafcwbjvq (Bld) [Volume fraction]Hematocrit [Volume Fraction] of Blood by Automated count36.0-48.0[facility] HospitalHemoglobin [Mass/volume] in Bloodon 73-06-0231Uzquzqqolc (Bld) [Mass/Vol] Hemoglobin [Mass/volume] in Blood12.0-16.0[facility] HospitalIgE [Units/volume] in Serum or Plasmaon 17-62-2200MuJ QnIgE [Units/volume] in Serum or Plasma6-495Cl[facility] Memorial HospitalComment on above:Performed at: - [facility] [id number] Director: Levi Pedroza MD, Phone: [phone] - Hematology and Cell countson 92-01-2804Vhmftjch granulocytes/100 WBC (Bld)0.1 %0.0-0.5FMercer County Community HospitalLeukocytes [#/volume] corrected for nucleated erythrocytes in Blood by Automated counon 88-23-3696SUF corrected for nucl RBC Auto (Bld) [#/Vol]Leukocytes [#/volume] corrected for nucleated erythrocytes in Blood by Automated coun4.0-11.0[facility] HospitalLymphocytes Auto (Bld) [#/Vol]on 25-80-7510Kmbbnmcknph (Bld) [#/Vol]Lymphocytes [#/volume] in Blood by Automated count1.2-3.8[facility] HospitalLymphocytes/100 WBC Auto (Bld)on 79-44-9708Lvidydiwdyp/100 WBC (Bld)Lymphocytes/100 leukocytes in Blood by Automated mjxmaMvv03.5-60.0[facility] HospitalMCH Auto (RBC) [Entitic mass]on 02-23-5871WHG (RBC) [Entitic mass]MCH [Entitic mass] by Automated count26.7-34.0[facility] HospitalMCHC Auto (RBC) [Mass/Vol]on 66-12-1579FNGT (RBC) [Mass/Vol]MCHC [Mass/volume] by Automated count29.9-35.2FMercer County Community HospitalMCV Auto (RBC) [Entitic vol]on 27-14-8562IKS (RBC) [Entitic vol]MCV [Entitic volume] by Automated count 81.0-99.0[facility] HospitalMonocytes Auto (Bld) [#/Vol]on 82-69-8917Pyqevxtxs (Bld) [#/Vol]Automated blood monocyte count0.3-0.8[facility] HospitalMonocytes/100 WBC Auto (Bld)on 28-44-2232Uskqymjna/100 WBC (Bld)Automated monocyte %1.7-12.0[facility] Neutrophils Auto (Bld) [#/Vol]on 48-28-7592Jxlqdrwneab (Bld) [#/Vol]Neutrophils [#/volume] in Blood by Automated countHigh1.4-6.5FMercer County Community HospitalNeutrophils/100 WBC Auto (Bld)on 83-77-5549Skkqdrcbjnf/100 WBC (Bld) Automated neutrophil %43.0-75.0[facility] HospitalNo Panel Informationon 35-21-9281Mjcfjxfqese # (Auto)0.1 10 3/uL0.0-0.7FMercer County Community HospitalImmature Granulocyte # (Auto)0.01 10 3/uL0.00-0.03[facility] HospitalPlatelet mean volume Auto (Bld) [Entitic vol]on 49-43-7333Pcqvrgjx mean volume (Bld) [Entitic vol]Platelet mean volume [Entitic volume] in Blood by Automated count9.5-13.5FMercer County Community Hospital Platelets Auto (Bld) [#/Vol]on 68-90-2324Jcgkzsfqa (Bld) [#/Vol]Platelets [#/volume] in Blood by Automated ydryq543-299IapubzpieClinton Memorial Hospital RBC Auto (Bld) [#/Vol]on 48-84-1744QOP (Bld) [#/Vol]Erythrocytes [#/volume] in Blood by Automated count4.20-5.40[facility] HospitalProvider Letteron 48-37-8801Euogfpgr Letter Cornelius Whittaker [address] [facility] [facility], [address] [place] [id number] Re: Cristine Manley Date of Visit: 02/23/2024 Dear Cornelius Garrison MD, Please see attached results on this mutual patient you have with [facility] Result Name Current Result CT Spine Thoracic/Lumbar Myelogram w/Con 02/23/2024 Let me know if you have any questions or concerns. Sincerely, Jaclyn Bliss [facility]N [facility] Lead Health Roll Off Driver C C Providers:[facility] HospitalCT Spine Thoracic/Lumbar Myelogram w/Conon 13-02-7170QE Spine Thoracic/Lumbar Myelogram w/ConEXAMINATION: CT Spine Thoracic/Lumbar [...] Signed, Electronically Signed in Other Vendor System)Normal [facility] - DublinPTon 71-01-9222FHH Coag (PPP) [Relative time]1.0 {INR}Normal<=3.5BMercy Health Willard HospitalComment on above:Result Comment: INR has no normal range. INR Therapeutic range is: 2.0-3.0 (AF, CVA, TIAs, DVT prophylaxis, acute DVT) 2.5-3.5 ([facility] heart valves, recurrent thrombosis/emboli)Performed By: #### PTINR #### [address] [address]IN Coag (PPP) [Time]10.3 sNormal9.2-12.0[facility] Hospital - DublinComment on above:Performed By: #### PTINR #### [address] [address]RATjs 07-41-7786xLHQ Coag (Bld) [Time]24.8 wEziitk82.5-28.2 [facility] Hospital - DublinComment on above:Performed By: #### PTT #### [address] [address]Xixmffvi Counton 26-60-0008Fqaytrpo372 x10*3/isUQazins858-300 [facility] Hospital - DublinComment on above:Performed By: #### PLTS #### [address] [address]BF Myelography Spine 2 or More Areason 01-62-7458NQ Myelography Spine 2 or More AreasCLINICAL HISTORY: [...] Signed, Electronically Signed in Other Vendor System)Normal [facility] - DublinXR knee BI 3V - NOT FOR ER USEon 53-42-5801QI knee BI 3V - NOT FOR ER USEOHIOHEALTH [facility] [address] [place] [address] XRay Report Signed Patient: Cristine Manley MR#: [id number] 53 : 1960 Acct:[id number] Age/Sex: 64 / F ADM Date: 01/24/24 Loc: [facility] Room: Type: [facility] Attending Dr: Alexandro Galvez DO Copies to: [...] Sunday Graham M.D.01/24/2024 3:45 PM Dictation Location: [place] [address] Transcribed By: [facility] 01/24/24 154 Dictated By: Sunday Graham II, MD 01/24/24 154 Signed By: 01/24/24 1545[facility] Phys[facility] GroupBasophils Auto (Bld) [#/Vol]on 93-57-7783Pwydsslok (Bld) [#/Vol]0.0 10 3/uL0.0-0.1FMercer County Community HospitalBasophils (Bld) [#/Vol]Automated basophil count0.0-0.1FMercer County Community HospitalBasophils/100 WBC Auto (Bld)on 14-55-8065Detffyrqd/100 WBC (Bld) 0.2 %0.2-2.0[facility] HospitalBasophils/100 WBC (Bld)Automated basophil %0.2-2.0[facility] HospitalEosinophils/100 WBC Auto (Bld) on 60-47-2391Avoikvmbgfo/100 WBC (Bld)4.3 %0.9-7.0[facility] HospitalEosinophils/100 WBC (Bld)Automated eosinophil %0.9-7.0[facility] HospitalErythrocyte distribution width Auto (RBC) [Ratio]on 01-19-2024 Erythrocyte distribution width (RBC) [Ratio]13.1 %11.0-15.0[facility] HospitalErythrocyte distribution width (RBC) [Ratio]Erythrocyte distribution width [Ratio] by Automated count11.0-15.0[facility] HospitalEstimated glomerular filtration rate (GFR) non- Americanon 17-65-1849EWG/1.73 sq M.predicted among non-blacks MDRD (S/P/Bld) [Vol rate/Area]mL/min/{1.73_m2}>=60 mL/min/1.73m 2FMercer County Community Hospital GFR/1.73 sq M.predicted among non-blacks MDRD (S/P/Bld) [Vol rate/Area]Estimated glomerular filtration rate (GFR) non->=60 mL/min/1.73m 2 [facility] Memorial HospitalFibrin D-dimer [Presence] in Platelet poor plasma by Latex agglutinationon 37-87-8364Rghfum D-dimer LA Ql (PPP)0.43 mg/L FEU<=0.59[facility] HospitalComment on above:Increases in D-Dimer concentration observed [...] [Presence] in Platelet poor plasma by Latex agglutination<=0.59[facility] HospitalComment on above:Increases in D-Dimer concentration observed [...] [Volume fraction]on 01-19-2024 Hematocrit (Bld) [Volume fraction]39.5 %36.0-48.0[facility] HospitalHematocrit (Bld) [Volume fraction]Hematocrit [Volume Fraction] of Blood by Automated count36.0-48.0[facility] HospitalHemoglobin [Mass/volume] in Bloodon 88-11-8069Bydcqvvjlf (Bld) [Mass/Vol]12.8 g/dL12.0-16.0 [facility] HospitalHemoglobin (Bld) [Mass/Vol]Hemoglobin [Mass/volume] in Blood12.0-16.0[facility] HospitalLaboratory - Chemistry and Chemistry - challengeon 24-81-6467Lahdrwa [Mass/Vol]9.0 mg/dL 8.5-10.1FMercer County Community HospitalChloride [Moles/Vol]105 mmol/L98-107 [facility] HospitalCO2 [Moles/Vol]28.7 mmol/L21.0-32.0[facility] HospitalCreatinine [Mass/Vol]0.92 mg/dL0.55-1.02[facility] HospitalGFR/1.73 sq M.predicted MDRD (S/P/Bld) [Vol rate/Area] mL/min/{1.73_m2}>=60 mL/min/1.73m 2FMercer County Community HospitalGlucose [Mass/Vol]78 mg/fN54-077NqfonciidClinton Memorial HospitalPotassium [Moles/Vol] 4.0 mmol/L3.5-5.1FMercer County Community Hospitalodium [Moles/Vol]138 mmol/L 136-145[facility] HospitalUrea nitrogen [Mass/Vol]27.0 mg/dLHigh 7.0-18.0[facility] HospitalUrea nitrogen/Creatinine [Mass ratio] 29.3 mg/mgClinton Memorial HospitalLaboratory - Hematology and Cell countson 41-86-1065Lgqpeztj granulocytes/100 WBC (Bld)0.3 %0.0-0.5FMercer County Community HospitalLaboratory - Microbiology and Antimicrobial susceptibilityon 15-19-1066DIXC-CoV-2 (COVID-19) RNA JOSELUIS+probe Ql (Unsp spec) NegativeNEGATIVEClinton Memorial HospitalComment on above:This test has not been [...] nucleated erythrocytes in Blood by Automated counon 44-02-6212VWP corrected for nucl RBC Auto (Bld) [#/Vol]12.6 10 3/uLHigh4.0-11.0[facility] HospitalWBC corrected for nucl RBC Auto (Bld) [#/Vol]Leukocytes [#/volume] corrected for nucleated erythrocytes in Blood by Automated counHigh4.0-11.0[facility] HospitalLymphocytes Auto (Bld) [#/Vol]on 76-11-1490Bmxkvoegmga (Bld) [#/Vol]4.4 10 3/uLHigh1.2-3.8[facility] HospitalLymphocytes (Bld) [#/Vol] Lymphocytes [#/volume] in Blood by Automated countHigh1.2-3.8[facility] HospitalLymphocytes/100 WBC Auto (Bld)on 81-28-2671Ankaizxmjfe/100 WBC (Bld)35.0 %20.5-60.0[facility] HospitalLymphocytes/100 WBC (Bld) Lymphocytes/100 leukocytes in Blood by Automated count20.5-60.0[facility] Auto (RBC) [Entitic mass]on 02-37-0897WGD (RBC) [Entitic mass]29.4 pg26.7-34.0[facility] (RBC) [Entitic mass]MCH [Entitic mass] by Automated count26.7-34.0[facility] Auto (RBC) [Mass/Vol]on 20-22-9000ORFE (RBC) [Mass/Vol]32.4 g/dL29.9-35.2FMetroHealth Cleveland Heights Medical CenterHC (RBC) [Mass/Vol]MCHC [Mass/volume] by Automated count29.9-35.2FMetroHealth Cleveland Heights Medical CenterV Auto (RBC) [Entitic vol]on 59-23-6406BZI (RBC) [Entitic vol]90.6 fL81.0-99.0 [facility] CenterV (RBC) [Entitic vol]MCV [Entitic volume] by Automated count81.0-99.0[facility] HospitalMonocytes Auto (Bld) [#/Vol]on 36-21-1477Pgmflyytq (Bld) [#/Vol]1.2 10 3/uLHigh0.3-0.8[facility] HospitalMonocytes (Bld) [#/Vol]Automated blood monocyte countHigh 0.3-0.8[facility] HospitalMonocytes/100 WBC Auto (Bld)on 05-81-4468Niixzabde/100 WBC (Bld)9.5 %1.7-12.0[facility] Monocytes/100 WBC (Bld)Automated monocyte %1.7-12.0[facility] HospitalNeutrophils Auto (Bld) [#/Vol]on 16-40-0067Wxinzlldoqe (Bld) [#/Vol]6.4 10 3/uL1.4-6.5FMercer County Community HospitalNeutrophils (Bld) [#/Vol] Neutrophils [#/volume] in Blood by Automated count1.4-6.5FMercer County Community HospitalNeutrophils/100 WBC Auto (Bld)on 46-57-2506Qnmbqedhcwx/100 WBC (Bld)50.7 %43.0-75.0[facility] HospitalNeutrophils/100 WBC (Bld) Automated neutrophil %43.0-75.0[facility] HospitalNo Panel Informationon 91-79-8795Eqxwmxv Influenza Type A AntigenNegativeClinton Memorial HospitalComment on above:Negative for Flu A protein antigen. Infection due to Flu Acannot be ruled out. Flu A antigen in thesample may bebelow the detection limit of the test.Bedside Influenza Type B AntigenNegative [facility] HospitalComment on above:Negative for Flu B protein antigen. Infection due to Flu Bcannot be ruled out. Flu B antigen in thesample may bebelow the detection limit of the test.Eosinophils # (Auto)0.5 10 3/uL 0.0-0.7FMercer County Community HospitalImmature Granulocyte # (Auto)0.04 10 3/uLHigh0.00-0.03[facility] HospitalTroponin I High Sensitivity5.8 pg/mL4.0-51.3FMercer County Community HospitalComment on above:CUT-OFF POINTS HAVE BEEN ESTABLISHED [...] INFORMATION.Platelet mean volume Auto (Bld) [Entitic vol]on 28-65-1628Efybwzie mean volume (Bld) [Entitic vol]9.3 fLLow9.5-13.5FMercer County Community HospitalPlatelet mean volume (Bld) [Entitic vol]Platelet mean volume [Entitic volume] in Blood by Automated countLow9.5-13.5FMercer County Community Hospital Platelets Auto (Bld) [#/Vol]on 72-03-2897Eszuvkflo (Bld) [#/Vol]304 10 3/uL 150-450[facility] HospitalPlatelets (Bld) [#/Vol]Platelets [#/volume] in Blood by Automated -163FsvwropobClinton Memorial Hospital RBC Auto (Bld) [#/Vol]on 52-28-3046FBY (Bld) [#/Vol]4.36 10 6/uL4.20-5.40 [facility] HospitalRBC (Bld) [#/Vol]Erythrocytes [#/volume] in Blood by Automated count4.20-5.40[facility] Medical Centererum or plasma anion gap determinationon 06-30-5994Ntiae gap [Moles/Vol]8.3 mmol/L [facility] HospitalAnion gap [Moles/Vol]Serum or plasma anion gap determinationClinton Memorial HospitalBorrelia burgdorferi IgG+IgM Ab [Presence] in Serum by Immunoassayon 4B. burgdorferi IgG+IgM IA Ql (S) NegativeNegativeClinton Memorial HospitalComment on above:Lyme antibodies not detected. Reflex testing is notindicated.No laboratory evidence of infection with B. burgdorferi(Lyme disease). Negative results may occur in patientsrecently infected (less than or equal to 14 days) with B.burgdorferi. If recent infection is suspected, repeattesting on a new sample collected in 7 to 14 days isrecommended.Performed at: [facility] [id number] Director: Jeovany Bazan PhD, Phone: [phone]-18 PCR (CVDTB)on 72-20-2694RMFU-CoV-2 (COVID-19) RNA JOSELUIS+probe Ql (Unsp spec)Not detectedNormalNOT DETECTEDThe [facility] HospitalComment on above:Result Comment: This test is not yet approved or cleared by the [place] FDA. When there are no FDA-approved or cleared tests available, and other criteria are met, FDA can make tests available under an emergency access mechanism called an Emergency Use Authorization (EUA). The EUA for this test is supported by the [place] of Health and Human Service's (HHS's) declaration [...] consistent with SARS-CoV-2.Performed By: #### CVDTBH #### [facility] [address] [place] [address] Dr. Pablo Moore AUTO DIFFon 96-70-7950BIAM #0.1 103/ulNormal0.0-0.1The [facility] Community HospitalComment on above:Performed By: #### DATCBC #### [facility] [address] [place] [address] Dr. Pablo ShethBasophils/100 WBC (Bld)0.4 %Normal0.2-2.0The [facility] Comment on above:Performed By: #### DATCBC #### [facility] [address] [place] [address] Dr. Pablo Sebastian #0.3 103/ulNormal0.0-0.7The [facility] HospitalComment on above: Performed By: #### DATCBC #### [facility] [address] [place] [address] Dr. Pablo Bridgesosinophils/100 WBC (Bld)2.4 %Normal0.9-7.0The [facility] Comment on above:Performed By: #### DATCBC #### [facility] [address] [place] [address] Dr. Pablo Bridgesrythrocyte distribution width (RBC) [Ratio]13.2 %Hbgako37.0-15.0 The [facility] HospitalComment on above:Performed By: #### DATCBC #### [facility] [address] [place] [address] Dr. Pablo ShethHematocrit (Bld) [Volume fraction]42.6 %Cyoxhy88.0-48.0The [facility] HospitalComment on above:Performed By: #### DATCBC #### [facility] [address] [place] [address] Dr. Pablo ShethHemoglobin (Bld) [Mass/Vol]13.7 g/qGBhppvy45.0-16.0The [facility] HospitalComment on above:Performed By: #### DATCBC #### [facility] [address] [place] [address] Dr. Pablo Mckeon #0.05 10e3/ulCritically high0.00-0.03[facility] Comment on above:Performed By: #### DATCBC #### [facility] [address] [place] [address] Dr. Pablo Mckeon %0.4 %Normal0.0-0.5ThOhioHealth Grant Medical CenterComment on above: Performed By: #### DATCBC #### [facility] [address] [place] [address] Dr. Pablo Mclean #2.8 103/ulNormal1.2-3.8ThOhioHealth Grant Medical CenterComment on above:Performed By: #### DATCBC #### [facility] [address] [place] [address] Dr. Pablo Ceballoshocytes/100 WBC (Bld)20.9 %Zbjgsv07.5-60.0The [facility] HospitalComment on above:Performed By: #### DATCBC #### [facility] [address] [place] [address] Dr. Pablo Ott (RBC) [Entitic mass]29.2 dqQjlmia39.7-34.0The [facility] HospitalComment on above:Performed By: #### DATCBC #### [facility] [address] [place] [address] Dr. Pablo Ott (RBC) [Mass/Vol]32.2 g/sOOcdkaa70.9-35.2The [facility] HospitalComment on above:Performed By: #### DATCBC #### [facility] [address] [place] [address] Dr. Pablo Ott (RBC) [Entitic vol]90.8 tERsbxqe55.0-99.0The [facility] HospitalComment on above:Performed By: #### DATCBC #### [facility] [address] [place] [address] Dr. Pablo Mcgovern #1.0 103/ulCritically high0.3-0.8The [facility] Comment on above:Performed By: #### DATCBC #### [facility] [address] [place] [address] Dr. Pablo Rodocytes/100 WBC (Bld)7.5 %Normal1.7-12.0The [facility] Comment on above:Performed By: #### DATCBC #### [facility] [address] [place] [address] Dr. Pablo GalanUT #9.2 103/ulCritically high1.4-6.5The [facility] Comment on above:Performed By: #### DATCBC #### [facility] [address] [place] [address] Dr. Pablo Galanutrophils/100 WBC (Bld)68.4 %Pvwzdg33.0-75.0The [facility] HospitalComment on above:Performed By: #### DATCBC #### [facility] [address] [place] [address] Dr. Pablo ShethPlatelet mean volume (Bld) [Entitic vol]9.3 fLCritically low 9.5-13.5The [facility] HospitalComment on above:Performed By: #### DATCBC #### [facility] [address] [place] [address] Dr. Pablo ShethPLT313 103/knKpqqvy851-585Smu [facility] HospitalComment on above: Performed By: #### DATCBC #### [facility] [address] [place] [address] Dr. Pablo ShethRBC4.69 106/ulNormal4.20-5.40The [facility] HospitalComment on above:Performed By: #### DATCBC #### [facility] [address] [place] [address] Dr. Pablo ShethWBC13.4 103/ulCritically high4.0-11.0The [facility] HospitalComment on above:Performed By: #### DATCBC #### [facility] [address] [place] [address] Dr. Pablo Dumont - [facility] EDMONDSalisson 19-66-9000WTK1.241 uIU/mLNormal0.358-3.740The [facility] HospitalComment on above:Performed By: #### DATTSRoseanne DATBMP #### [facility] [address] [place] [address] Dr. Pablo Linares [facility] HospitalComment on above: Result Comment: <0.34 UIU/ml HYPERTHYROID 0.34-5.60 UIU/ml EUTHYROID >5.60 UIU/ml HYPOTHYROIDPerformed By: #### DATTSH, DATBMP #### [facility] [address] [place] [address] Dr. Pablo Dumont- [place] WITH LIPIDon 93-71-1266Gkikg gap [Moles/Vol]11.9 mmol/L NormalThe [facility] HospitalComment on above:Performed By: #### DATCLIFTON DATBMP #### [facility] [address] [place] [address] Dr. Pablo ShethCalcium [Mass/Vol]9.1 mg/dLNormal8.5-10.1The [facility] Comment on above:Performed By: #### BELLA DATBMP #### [facility] [address] [place] [address] Dr. Pablo ShethChloride [Moles/Vol]104 mmol/VHpevth81-842Zzr [facility] Comment on above:Performed By: #### BELLA, DATBMP #### [facility] [address] [place] [address] Dr. Pablo Acunaesterol [Mass/Vol]207 mg/dLCritically high<=200The [facility] HospitalComment on above:Performed By: #### DATTSRoseanne, DATBMP #### [facility] [address] [place] [address] Dr. Pablo Acunaesterol in HDL [Mass/Vol]52 mg/yRRyroog19-18Gvz [facility] HospitalComment on above:Performed By: #### DATTSH, DATBMP #### [facility] [address] [place] [address] Dr. Yilan ChangCholesterol in LDL [Mass/Vol]141.4 mg/dLSelect Medical Specialty Hospital - TrumbullComment on above:Performed By: #### DATTSH, DATBMP #### [facility] [address] [address] [address] Pablo ShethCO2 [Moles/Vol]29.3 mmol/EFhmpwf92.0-32.0The [facility] Comment on above:Performed By: #### DATTSH, DATBMP #### [facility] [address] [place] [address] Dr. Pablo ShethCreatinine [Mass/Vol]0.77 mg/dLNormal0.55-1.02The [facility] HospitalComment on above:Performed By: #### DATTSH, DATBMP #### [facility] [address] [place] [address] Dr. Pablo BridgesGFR-AF SIERRA LEONEAN>60Normal>=60The [facility] HospitalComment on above:Performed By: #### DATTSH, DATBMP #### [facility] [address] [place] [address] Dr. Pablo BridgesGFR-NON AF SIERRA LEONEAN>60Normal>=60The [facility] HospitalComment on above:Performed By: #### DATTSH, DATBMP #### [facility] [address] [place] [address] Dr. Pablo ShethGlucose [Mass/Vol]109 mg/dLCritically xolf89-220Lva [facility] HospitalComment on above:Performed By: #### DATTSH, DATBMP #### [facility] [address] [place] [address] Dr. Pablo ShethHDL NORMAL> or = 60 mg/dl - LOW CARDIOVASCULAR RISK <40 mg/dl - HIGH CARDIOVASCULAR RISKSelect Medical Specialty Hospital - TrumbullCombeaumont hospital on above:Performed By: #### DATTSH, DATBMP #### [facility] [address] [place] [address] Dr. Pablo ShethLDL CALC NORMALSEE BELOWSelect Medical Specialty Hospital - TrumbullComment on above:Result Comment: <100 mg/dl OPTIMAL 100 - 129 mg/dl NEAR OR ABOVE OPTIMAL 130 - 159 mg/dl BORDERLINE HIGH 160 - 189 mg/dl HIGH >190 mg/dl VERY HIGH Performed By: #### BELLA DATBMP #### [facility] [address] [place] [address] Dr. Pablo ShethPotassium [Moles/Vol]4.2 mmol/LNormal3.5-5.1The [facility] Comment on above:Performed By: #### BELLA DATBMP #### [facility] [address] [place] [address] Dr. Pablo ShethSodium [Moles/Vol]141 mmol/QAjvniw918-881Xeb [facility] Comment on above:Performed By: #### BELLA DATBMP #### [facility] [address] [place] [address] Dr. Pablo ShethTriglyceride [Mass/Vol]68 mg/dLNormal<=150The [facility] Comment on above:Performed By: #### BELLA DATBMP #### [facility] [address] [place] [address] Dr. Pablo ShethUrea nitrogen [Mass/Vol]26.0 mg/dLCritically high7.0-18.0The [facility] HospitalComment on above:Performed By: #### BELLA DATBMP #### [facility] [address] [place] [address] Dr. Pablo ShethUrea nitrogen/Creatinine [Mass ratio]33.8 mg/mgNoLouis Stokes Cleveland VA Medical CenterComment on above:Performed By: #### BELLA DATBMP #### [facility] [address] [place] [address] Dr. Pablo ShethVLDL CALC13.6 mg/dLNoLouis Stokes Cleveland VA Medical CenterComment on above: Performed By: #### BELLA, DATBMP #### [facility] [address] [place] [address] Dr. Pablo Sheth Vital Signs Date TimeVital SignValuePerforming WmfsqpyvnGrpcavxx06-12-3709 10:55-0500 Diastolic blood nzpcaqox13 mm[Hg]Cornelius Garrison MD Work Phone: [phone])[address]11-05-2025 10:55-0500 Heart rate80 /Steven Garrison MD Work Phone: [phone])[address]11-05-2025 10:55-0500 Systolic blood peslkmax938 mm[Hg]Cornelius Garrison MD Work Phone: [phone]11-05-2025 10:44-0500 Body ibkbza121.18 cmCornelius Garrison MD Work Phone: [phone])[address]11-05-2025 10:44-0500 Body mass index (BMI) [Ratio]25.4 kg/c7RhqmoyCornelius Garrison MD Work Phone: [phone])[address]11-05-2025 10:44-0500 Body ytbtvj27.53 kgCornelius Garrison MD Work Phone: [phone])14612 [address]09-15-2025 14:29-0400 Body yvyqml493.18 cmCornelius Garrison MD Work Phone: [phone])[address] [place], [place] [address]09-15-2025 14:29-0400 Body mass index (BMI) [Ratio]25.8 kg/q5PvekxnCornelius Garrison MD Work Phone: [phone])[address] [place], [place] [address]09-15-2025 14:29-0400 Body .84 kgCornelius Garrison MD Work Phone: [phone])37612 [address]09-15-2025 14:29-0400 Diastolic blood audbjuid96 mm[Hg]Cornelius Garrison MD Work Phone: [phone])46012 [address]09-15-2025 14:29-0400 Heart rate97 /Steven Garrison MD Work Phone: [phone])62212 [address]09-15-2025 14:29-0400 Systolic blood yslehfvj320 mm[Hg]Cornelius Garrison MD Work Phone: [phone])[address] [place], [place] [address]08-29-2025 11:35-0400 Body ysuxyg878.18 cmCornelius Garrison MD Work Phone: [phone])76112 [address]08-29-2025 11:35-0400 Body mass index (BMI) [Ratio]25.6 kg/f4YxjtvxCornelius Garrison MD Work Phone: [phone])90412 [address]08-29-2025 11:35-0400 Body .16 kgCornelius Garrison MD Work Phone: 1([phone])81412 [address]08-29-2025 11:35-0400 Diastolic blood vutpbqnk61 mm[Hg]Cornelius Garrison MD Work Phone: 1(567)[address] [place], [place] [address]08-29-2025 11:35-0400 Heart rate63 /Steven Garrison MD Work Phone: [phone])[address] [place], [place] [address]08-29-2025 11:35-0400 Respiratory rate14 /Steven Garrison MD Work Phone: [phone] [place], [place] 402[address]08-29-2025 11:35-0400 SaO2% (BldA) [Mass fraction]96 %Cornelius Garrison MD Work Phone: [phone])[address] [place], [place] [address]08-29-2025 11:35-0400 Systolic blood mm[Hg]Cornelius Garrison MD Work Phone: [phone] [address]08-08-2025 14:38-0400 Body fthnau491.18 cmCornelius Garrison MD Work Phone: [phone])[address]08-08-2025 14:38-0400 Body mass index (BMI) [Ratio]26.6 kg/w5OszywxCornelius Garrison MD Work Phone: [phone])[address]08-08-2025 14:38-0400 Body sywzvd70.11 kgCornelius Garrison MD Work Phone: [phone])[address]08-08-2025 14:38-0400 Diastolic blood dwzsjhaz92 mm[Hg]Cornelius Garrison MD Work Phone: [phone] [address]08-08-2025 14:38-0400 Heart rate82 /Steven Garrison MD Work Phone: [phone]08-08-2025 14:38-0400 Systolic blood tpianqzd973 mm[Hg]Cornelius Garrison MD Work Phone: [phone])[address] [place], [place] [address]06-20-2025 14:55-0400 Diastolic blood mm[Hg]Cornelius Garrison MD Work Phone: [phone] [place], [place] [address]06-20-2025 14:55-0400 Heart rate86 /Steven Garrison MD Work Phone: [phone])[address] [place], [place] [address]06-20-2025 14:55-0400 Systolic blood tjobyvql256 mm[Hg]Cornelius Garrison MD Work Phone: [phone] [place], [place] [address]06-20-2025 14:42-0400 Body lorvvx627.18 cmCornelius Garrison MD Work Phone: [phone])[address] [place], [place] [address]06-20-2025 14:42-0400 Body mass index (BMI) [Ratio]26.4 kg/w9LdqskhCronelius Garrison MD Work Phone: [phone])[address] [place], [place] [address]06-20-2025 14:42-0400 Body lfhqqgxeeyz99.5 [degF]Cornelius Garrison MD Work Phone: [phone] [place], [place] [address]06-20-2025 14:42-0400 Body .65 kgCornelius Garrison MD Work Phone: [phone] [place], [place] [address]06-20-2025 14:42-0400 SaO2% (BldA) [Mass fraction]98 %Cornelius Garrison MD Work Phone: [phone] [place], [place] 402[address]03-19-2025 08:30-0400 Body ytnvmt833.18 cmCornelius Garrison MD Work Phone: [phone] [address]03-19-2025 08:30-0400 Body mass index (BMI) [Ratio]27.6 kg/a0KyoivyCornelius Garrison MD Work Phone: [phone])[address] [place], [place] [address]03-19-2025 08:30-0400 Body rtkxoe77.94 kgCornelius Garrison MD Work Phone: [phone] [place], [place] 2795703-19-2025 08:30-0400 Diastolic blood dhuygxoi675 mm[Hg]Cornelius Garrison MD Work Phone: 1([phone])048-[address] [place], [place] 2795703-19-2025 08:30-0400 Heart rate80 /Steven Garrison MD Work Phone: [phone])[address]03-19-2025 08:30-0400 Respiratory rate12 /Steven Garrison MD Work Phone: 1(055)[address] [place], [place] 402[address]03-19-2025 08:30-0400 SaO2% (BldA) [Mass fraction]95 %Cornelius Garrison MD Work Phone: 1(213)[address] [place], [place] [address]03-19-2025 08:30-0400 Systolic blood vkpyjble538 mm[Hg]Cornelius Garrison MD Work Phone: [phone] [address]02-26-2025 14:11-0500 Body tyclvu940.2 cmBenjamin Murcek DO Work Phone: 1([phone])[address]02-26-2025 14:11-0500Body mass index (BMI) [Ratio]27.72 kg/y8Dvybhvgc Murcek DO Work Phone: 1(039)[address]02-26-2025 14:11-0500Body ywcafz59.29 kgBenjamin Murcek DO Work Phone: 1(103)[address]01-06-2025 15:14-0500Body baneko196.18 cmCornelius Garrison MD Work Phone: [phone]01-06-2025 15:14-0500 Body mass index (BMI) [Ratio]27.7 kg/q8TwpohxCornelius Garrison MD Work Phone: [phone]36[facility]01-06-2025 15:14-0500 Body ldkenwbifyn47.4 [degF]Cornelius Garrison MD Work Phone: [phone]01-06-2025 15:14-0500 Body .28 kgCornelius Garrison MD Work Phone: 1(000)[address] [place], [place] 402[address]01-06-2025 15:14-0500 Diastolic blood mm[Hg]Cornelius Garrison MD Work Phone: 1(570)[address] [place], [place] [address]01-06-2025 15:14-0500 Heart rate83 /Steven Garrison MD Work Phone: 1(056)[address] [place], [place] [address]01-06-2025 15:14-0500 Respiratory rate20 /Steven Garrison MD Work Phone: 1([phone])[address] [place], [place] [address]01-06-2025 15:14-0500 SaO2% (BldA) [Mass fraction]96 %Cornelius Garrison MD Work Phone: 1(171)[address] [place], [place] [address]01-06-2025 15:14-0500 Systolic blood siadjnir988 mm[Hg]Cornelius Garrison MD Work Phone: 1(592)[address] [place], [place] 402[address]12-20-2024 08:56-0500 Body qnetwp493.18 cmCornelius Garrison MD Work Phone: [phone])[address] [place], [place] 402[address]12-20-2024 08:56-0500 Body mass index (BMI) [Ratio]27.2 kg/y5LmnjexCornelius Garrison MD Work Phone: 1(028)[address] [place], [place] 402[address]12-20-2024 08:56-0500 Body .92 kgCornelius Garrison MD Work Phone: 1(302)[address] [place], [place] 402[address]12-20-2024 08:56-0500 Diastolic blood uaqsdbom07 mm[Hg]Cornelius Garrison MD Work Phone: 1(511)[address] [place], [place] 402[address]12-20-2024 08:56-0500 Heart rate91 /Steven Garrison MD Work Phone: 1(880)[address] [place], [place] [address]12-20-2024 08:56-0500 SaO2% (BldA) [Mass fraction]95 %Cornelius Garrison MD Work Phone: 1([phone])850-[address] [place], [place] [address]95712-20-2024 08:56-0500 Systolic blood mm[Hg]Cornelius Garrison MD Work Phone: [phone] [address] Street12-02-2024 15:29-0500 Body jypzzo307.18 cmCornelius Garrison MD Work Phone: [phone])[address]12-02-2024 15:29-0500 Body mass index (BMI) [Ratio]27.8 kg/c5YlmvrkCornelius Garrison MD Work Phone: 1([phone])[address]12-02-2024 15:29-0500 Body mxpfbfhtqqo76.6 [degF]Cornelius Garrison MD Work Phone: 1(787)[address] [place], [place] 4029912-02-2024 15:29-0500 Body gaczts83.73 kgCornelius Garrison MD Work Phone: 1(393)[address] [place], [place] 4029912-02-2024 15:29-0500 Diastolic blood zfehywau08 mm[Hg]Cornelius Garrison MD Work Phone: 1(996)[address] [place], [place] 4029912-02-2024 15:29-0500 Heart rate82 /Steven Garrison MD Work Phone: 1(723)[address] [place], [place] 4029912-02-2024 15:29-0500 Respiratory rate20 /Steven Garrison MD Work Phone: 1(168)[address] [place], [place] 4029912-02-2024 15:29-0500 SaO2% (BldA) [Mass fraction]98 %Cornelius Garrison MD Work Phone: [phone])[address]12-02-2024 15:29-0500 Systolic blood qocduxws011 mm[Hg]Cornelius Garrison MD Work Phone: 1(230)[address] [place], [place] 4029910-31-2024 13:55-0400 Body gnmnre077.18 cmMD Cornelius Garrison Work Phone: 1(545)[address]10-31-2024 13:55-0400 Body mass index (BMI) [Ratio]27.9 kg/m2MD Cornelius Garrison Work Phone: [facility]10-31-2024 13:55-0400 Body .9 kgMD Cornelius Garrison Work Phone: [phone]10-31-2024 13:55-0400 Diastolic blood pcteomld84 mm[Hg]MD Cornelius Garrison Work Phone: 1(867)[address]10-31-2024 13:55-0400 Heart rate74 /minMD Cornelius Garrison Work Phone: 1([phone])[address]10-31-2024 13:55-0400 SaO2% (BldA) [Mass fraction]96 %MD Cornelius Garrison Work Phone: [phone]92[facility]10-31-2024 13:55-0400 Systolic blood xsjfkuqn063 mm[Hg]MD Cornelius Garrison Work Phone: 1([phone])[address]10-16-2024 14:35-0400 Body becgzm665.18 cmMD Cornelius Garrison Work Phone: 1(760)[address]10-16-2024 14:35-0400 Body mass index (BMI) [Ratio]28.3 kg/m2 Cornelius Garrison Work Phone: [phone])387[facility]30[facility]10-16-2024 14:35-0400 Body hytvlo64.21 kgMD Cornelius Garrison Work Phone: [phone]10-01-2024 15:17-0400 Body .64 [facility]10-01-2024 15:17-0400Body mass index (BMI) [Ratio]28.2 kg/e5EbqlrqlvfCl[facility]10-01-2024 15:17-0400Body adwpxo14.37 kgCl[facility]10-01-2024 15:17-0400Diastolic blood eotdgewq07 mm[Hg][facility] 01-09-2024 15:17-0400Heart rate76 /minCl[facility] 01-09-2024 15:17-0389BaJ4% (BldA) [Mass fraction]97 %[facility]10-01-2024 15:17-0400Systolic blood avapvhfs134 mm[Hg][facility]07-24-2024 08:57-0400Body prblir732.64 cmCl[facility]07-24-2024 08:57-0400Body mass index (BMI) [Ratio]28.2 kg/m2 [facility]07-24-2024 08:57-0400Body dxozmx13.37 kg [facility]07-24-2024 08:57-0400Diastolic blood miclsvxf96 mm[Hg][facility]07-24-2024 08:57-0400Heart rate63 /min [facility]07-24-2024 08:57-0400Systolic blood gwocmkzn732 mm[Hg][facility]07-05-2024 09:19-0400Body opmpdu453.64 cmCl[facility]07-05-2024 09:19-0400Body mass index (BMI) [Ratio]28 kg/o9KnqeaaaduCl[facility] Memorial Hospital07-05-2024 09:19-0400Body weight 78.92 kgCl[facility]07-05-2024 09:19-0400Diastolic blood vlgxmeka21 mm[Hg][facility]07-05-2024 09:19-0400Heart rate78 /minCl[facility]07-05-2024 09:19-7968GbM6% (BldA) [Mass fraction]98 %[facility]07-05-2024 09:19-0400 Systolic blood zzjecgoz834 mm[Hg][facility]04-22-2024 10:09-0400Body udfdpl737.64 cmCl[facility]04-22-2024 10:09-0400Body mass index (BMI) [Ratio]28.8 kg/w8YsxrvzxzfClinton Memorial Hospital04-22-2024 10:09-0400Body xaztad35.9 kgCl[facility] 07-31-2023 10:09-0400Diastolic blood zitqcuka59 mm[Hg][facility]04-22-2024 10:09-0400Heart rate74 /minCl[facility] 07-31-2023 10:09-0400Systolic blood tuybmrvp463 mm[Hg][facility]09-14-2022 14:20-0400Blood Pressure LocationMichael NILL [facility] Abmyekoq78-15-9039 14:20-0400Diastolic blood nruvsvey85 mm[Hg]Mihaela NILL General Surgery Ippnnffs58-54-3850 14:20-0400Heart rate 72 /minMichael NILL [facility] Fiaroqzm23-71-5415 14:20-0400 Respiratory rate16 /minMichael NILL [facility] Wjowfiil56-01-3806 14:20-0400Systolic blood ahsoavds447 mm[Hg]Mihaela NILL General Surgery [place] Encounters Encounter DateEncounter TypeCare ProviderFacilityStart: 26-70-8662pjrgzpqyoq Jose L Vance MDFacility:[facility]tart: 02-12-2025 End: 50-44-3230qxekxvjmqhFjnbqg E Braun MD Work Phone: [facility] 02-12-2025 End: 25-63-6423Tixjodv encounter procedureCornelius Garrison MD-[facility] Work Phone: Start: 06-82-7102Ezu-patient / Non-visitSamie Vance MD-[facility] Work Phone: Start: 01-01-2025 End: 52-05-2655Nsgzmzx encounter procedureCornelius Garrison MD-[facility] Work Phone: Start: 01-01-2025 End: 24-43-7679jvmgvxktdrYvnncz E Braun MD Work Phone: [facility] Work Phone: Start: 01-01-2025 End: 62-96-6424Dbvjcknl ReferredCornelius Garrison MD-[facility] Work Phone: Start: 12-24-2024 End: 32-70-6559oegybtepwqXYSXYCI NKHARMONYKRISTINAFRANKIEFacility:EU [facility] Centertart: 12-24-2024 End: 06-06-2255Ejmgseb encounter procedureBRIE WOODY [facility] Start: 12-23-2024 End: 97-33-6029oariznurxwYikbcd E Braun MD Work Phone: [facility] Work Phone: Start: 12-23-2024 End: 45-81-8217Hoevrqs encounter Brenden Garrison MD-[facility] Work Phone: Start: 07-86-8994Nfb-patient / Non-visitCataixa Hdez CMA-[facility] Work Phone: Start: 58-97-0862Npe-patient / Non-visitGianni France -[facility] Work Phone: Start: 50-27-3867Szv-patient / Non-visitSsavanna Mckeon DOAst[facility] Work Phone: Start: 79-14-3448Rck-patient / Non-visitSsavanna Mckeon [facility] Work Phone: Start: 12-13-2024 End: 57-47-2697yimybmmgcxQnbid M. LueFacility:CD:[id number]: 00-07-3951Wmn- patient / Non-visitRadeondre Gonsalves MD-[facility] Work Phone: Start: 12-11-2024 End: 74-53-2911geivumybgzFxjjer E BraunFacility:[facility] Centertart: 79-46-9316Shf-patient / Non-visitGamaliellizeth Melquiades Camara DO-[facility] Work Phone: Start: 12-06-2024 End: 86-45-6627qhtvqyttkoHzxinw E Braun MD Work Phone: [facility] Work Phone: Start: 12-06-2024 End: 42-05-6351Lyqsenb encounter procedureCornelius Garrison MD-[facility] Work Phone: Start: 12-02-2024 End: 12-42-1964sebvpdbaqhZmhrwh E Braun MD Work Phone: [facility] Work Phone: Start: 12-02-2024 End: 10-05-5327Bkaibufv Meenakshi Garrison MD-[facility] Work Phone: Start: 12-02-2024 End: 94-25-8008amhuihlnobNiiaro E Braun MD Work Phone: [facility] Work Phone: Start: 12-02-2024 End: 78-22-3874Jwyffjh encounter procedureCornelius Garrison MD-[facility] Work Phone: Start: 11-26-2024 End: 43-92-3467tivtlqwabhQSFFJSG NKANSAH-TIMURFacility:EU NorthiagokStart: 11-26-2024 End: 88-44-4698Dawhglh encounter procedureKAGUSTÍN MACK-AMANKRA [facility] Start: 11-18-2024 End: 23-51-1246fqhsddnyamHiluta J GaleaFacility:EU BellevueStart: 11-18-2024 End: 58-04-2293Ahuhrzx encounter procedureRoselyn Shah [facility] [place] start: 11-15-2024 End: 46-59-6883qhhflmnztqWiuein E Braun MD Work Phone: [facility] Work Phone: Start: 11-15-2024 End: 71-53-8975Oedgwjm encounter procedureCornelius Garrison MD-[facility] Work Phone: Start: 45-64-4154Fxg-patient / Non-visitCatherine Lemuel [facility] Work Phone: Start: 11-13-2024 End: 96-70-2090szmqifvaqlEwjfbm E Braun MD Work Phone: [facility] Work Phone: Start: 11-13-2024 End: 48-87-4220Pftakjyo Alec Mckay MD-[facility] [place] HospStart: 08-79-7477Xlj-patient / Non-visitGianni France DO- [facility] Work Phone: Start: 11-13-2024 End: 45-32-6557ziqjzxvyecBXVWKTRTasha MCKAYFacility:CD:[phone]: 20-53-1261Raq-patient / Non-visitDelvin Carlos [facility] Work Phone: Start: 67-01-9095djylswczrbOPERCBMTasha MCKAY [facility] FallsueStart: 30-71-3336Xkn-patient / Non-visitCatherine Lemuel [facility]- [facility] Work Phone: Start: 11-03-2024 End: 89-76-9865qoglufonlxKhcwkz E Braun MD Work Phone: [facility] Work Phone: start: 11-03-2024 End: 44-65-5612Ztgmdcpj ReferredCornelius Garrison MD-[facility] [place] [facility] Start: 43-98-0719Mkp-patient / Non-visitDaryl Palma Oleray MD-[facility] Work Phone: Start: 36-28-2293Pew-patient / Non-visitCatherine Lemuel [facility] Work Phone: Start: 10-01-2024 End: 36-76-6212Grumwowlx department patient visitCORNELIUS GARRISONProMedica Kaiser Permanente Medical Centertart: 09-27-2024 End: 08-67-7719Rubpqgz encounter procedureCornelius Garrison MD-[facility] Work Phone: Start: 07-30-2024 End: 83-10-2811wzzqteedsyXlntdvKana Garrison MDFacility:[facility] Hospitaltart: 07-22-2024 End: 62-70-1236eiljdlzqkaFdvlunRandall Garrison MDFacility:PM BellevueStart: 07-08-2024 End: 10-42-2130fnodxklwslXdxhshdDaniel Oreilly MDFacility:PM [place] Start: 06-26-2024 End: 44-55-8793ytczymcncpXpviin Braun MD Work Phone: [facility] Work Phone: Start: 06-26-2024 End: 99-12-8152Uyjidcu encounter procedureCornelius Garrison MD Work Phone: [facility] Work Phone: Start: 06-17-2024 End: 08-95-6559qbgvihdvixCtupvpRandall Garrison MDFacility:PM BellueStart: 06-06-2024 End: 34-22-1496lfrxogynewNouwtcRandall Garrison MDFacility:[facility] InstituteStart: 06-05-2024 End: 42-85-8770Uaaull outpatient new 45 minutesBengamalielmin W Murcek DO Work Phone: [facility] ENT SANDUSKYComment on above:Thyroid nodule (CMS/HCC) (Primary Dx)Start: 06-05-2024 End: 63-62-5097Exayce flowsheetBenjamin W Murcek DO Work Phone: [facility] SANDUSKYStart: 06-05-2024 End: 50-22-4207Zuhdoj flowsheetBenjamin W Murcek DO Work Phone: [facility] E[facility] SANDUSKYStart: 06-05-2024 End: 64-86-9875pduexlpoyyJLMAYEGM W OSIRISKNot AvailableStart: 05-13-2024 End: 78-80-5311xwrkjytfxwLplbvks Vytautas Giedraitis MDFacility:[facility] [place] Start: 38-35-0154dqxwuektxgAyndzz E Braun MD Work Phone: [facility] Work Phone: Start: 78-43-5797Czw-patient / Non-visitCornelius Garrison MD Work Phone: [facility] GroupAst[facility] Work Phone: Start: 04-29-2024 End: 24-41-3537xasunznoecAlqlzkr Vytautas Giedraitis MDFacility:[facility] [place] Start: 04-22-2024 End: 07-12-5183gghywcspngFrvojz E Braun MD Work Phone: [facility] Work Phone: Start: 04-22-2024 End: 98-55-3608Thgbazhw ReferredCornelius Garrison MD Work Phone: [facility] [place] HospStart: 04-22-2024 End: 09-80-8534slfqprdzppLjcnuhh Vytautas Giedraitis MDFacility:[facility] [place] Start: 04-15-2024 End: 35-98-1744byohrohrurAhtktr E Braun MD Work Phone: [facility] Work Phone: Start: 04-15-2024 End: 42-56-6643Cjgttam encounter procedureCornelius Garrison MD Work Phone: [facility] Work Phone: Start: 04-01-2024 End: 52-51-6776Ppeyiwa encounter procedureNicole Keith DO Work Phone: noms NE NEUROComment on above:Lumbosacral radiculopathy (Primary Dx); Numbness and tinglingStart: 04-01-2024 End: 37-87-6739btqgirbrraCWEJYX DANNERNot AvailableStart: 04-01-2024 End: 69-58-4699Dsphnr flowsheetNicole Keith DO Work Phone: [facility] NE NEUROStart: 04-01-2024 End: 08-14-8274Ygegmh flowsheetNicole Keith DO Work Phone: [facility] NE NEUROStart: 03-29-2024 End: 95-17-8517Bvxfvwp encounter procedureCornelius Garrison MD Work Phone: [facility] GroupPark[facility] Work Phone: Start: 03-25-2024 End: 49-30-5154vboyruomjiLphrp Marie King PA-CFacility:[facility] HospitalStart: 39-46-3272Bio-patient / Non-visitCornelius Garrison MD Work Phone: [facility] GroupAst[facility] Work Phone: Start: 03-11-2024 End: 06-47-8605Ryaapoi encounter Brenden Garrison MD Work Phone: [facility] GroupUn[facility] Work Phone: Start: 61-15-8969Xrt-patient / Non-visitCornelius Garrison MD Work Phone: [facility] GroupUn[facility] Work Phone: Start: 03-04-2024 End: 91-57-1227Gnalebw encounter procedureCornelius Garrison MD Work Phone: [facility]-Respiratory Therapy Work Phone: Start: 03-04-2024 End: 84-62-3784kylrvektijQgcymx E BraunFacility:[facility] Centertart: 02-23-2024 End: 43-96-5086iqfjepdkmiFcxcy Marie King PA-CFacility:[facility] Start: 02-08-2024 End: 90-73-0437qcphjpfsyzPY Marcia E Braun Work Phone: [facility] Work Phone: Start: 02-08-2024 End: 76-35-5963Qhkpjyd encounter procedureMD Cornelius Garrison Work Phone: [facility] Work Phone: Start: 35-26-1782Bis-patient / Non-visitMD Cornelius Garrison Work Phone: [facility] Work Phone: Start: 26-15-0309Vxl-patient / Non-visitCornelius Garrison MD Work Phone: [facility] Work Phone: Start: 01-24-2024 End: 13-04-2177cgyzehqzixNT Marcia E Braun Work Phone: [facility] Work Phone: Start: 01-24-2024 End: 06-13-7587Hdvvqzm encounter procedureMD Cornelius Garrison Work Phone: [facility] Work Phone: Start: 01-24-2024 End: 95-18-1235Qxsdwkn encounter procedureMD Cornelius Bladimir Work Phone: [facility] [place] Start: 01-24-2024 End: 64-60-7057lmtmydpubjHK Cornelius Ward Bladimir Work Phone: [facility] Work Phone: Start: 58-49-2793Vic-patient / Non-visitMD Cornelius Bladimir Work Phone: [facility] Work Phone: Start: 04-69-0234Dvy-patient / Non-visitMD Cornelius Bldaimir Work Phone: [facility] Work Phone: Start: 01-09-2024 End: 30-26-6027grwpfrvripXmfooosvwWyandot Memorial Hospital Work Phone: Start: 01-09-2024 End: 85-96-6308Yeaodas encounter procedureFirdeath valleys Physician Group-[facility] Work Phone: Start: 11-01-2023 End: 73-60-8225ajmuimurpuVnsvnzngbWyandot Memorial Hospital Work Phone: Start: 11-01-2023 End: 16-01-2759Dnncqmz encounter procedureFirdeath valleys Physician Group-[facility] Work Phone: Start: 10-13-2023 End: 70-31-9121ebksotggaeFijaeepjsWyandot Memorial Hospital Work Phone: Start: 10-13-2023 End: 96-10-6689Vxjznox encounter procedureFirelands Physician Group-[facility] Work Phone: Start: 07-31-2023 End: 65-70-3572sznhvotnbtXjagmdugyWyandot Memorial Hospital Work Phone: Start: 07-31-2023 End: 93-73-0451Qspayfv encounter procedureFirdeath valleys [facility]ician [facility] Work Phone: Start: 59-07-0211Tlv-patient / Non-visitRonnie Physician Group-[facility] Work Phone: Start: 02-01-2022 End: 28-30-0157Wfdjxya encounter procedureMichael R NILL General Surgery Nill/Said [place] Start: 97-29-2060Ijyngobtn for preprocedural laboratory examinationDR MIHAELA Banerjee [place] HospitalStart: 01-12-2022 End: 43-12-3039zeionnkgccSW MARCIA E BRAUNFacility:T5Mksox: 01-10-2022 End: 45-16-2566umakjwjledKE MICHAEL NILLFacility:W9Nqung: 01-10-2022 End: 78-34-0184Zjnlpulih for preprocedural laboratory examinationDR MIHAELA KERNShahriar Facility:O0Qhgnn: 12-22-2021 End: 67-38-7395Zjgawys encounter procedureMichael R NILL General Surgery Nill/Said [place] Start: 12-17-2021 End: 30-89-8428uhtoevoldzOP DOCTOR MISCFacility:H1 Procedures DateProcedureProcedure DetailPerforming ClinicianStart: 90-05-4925Uwshd culture Cornelius Garrison MD Work Phone: Start: 01-57-0622Kkezf Nat Garrison MD Work Phone: Start: 28-25-5643Yvoer Nat Garrison MD Work Phone: Start: 04-01-2024 End: 37-61-7086Cozdpx emg ea extremty w/paraspinl area completeNicole Keith DO Work Phone: Start: 77-84-4580I-ray of both knees, three viewsMD Cornelius Garrison Work Phone: Start: 71-13-7960AvfwwqrgmgmRvaxfbzx Murcek DO Work Phone: start: 58-53-4042KnanqzoeqxwHdknkqp NILL Start: 73-54-5029VkcqojvvgojzwrpatwrobclkzrTlgdusv NILL Bilateral oophorectomyMichael NILL ColonoscopyMichael NILL Decompression of thoracic spineMichael NILL Discectomy of spineMichael NILL Comment on above:[id number]w Mihaela NILL Excision of bunionMichael NILL Repair of vaginal tearMichael NILL TonsillectomyMichael NILL Plan of Treatment DateCare ActivityDetailAuthorStart: 02-08-1810Kplzmxajk for malignant neoplasm of colonNOMS HealthcareStart: 06-10-2025 End: 05-61-1723Ueycksj encounter azhpklumz98/03/2026 8:45 AM EST Office Visit [facility] KEVYN [place] [address] [place] [phone] Geoff Walker, DO [address] [place] [address] [facility] KEVYN MELENDEZYStart: 50-07-0440Smyps culture [facility] Centertart: 30-57-4578Coywxweb identified in Urine by CultureUrine [facility] Centertart: 54-69-2654Nyxrh [facility] Hospitaltart: 78-60-6927Qpwltmxr identified in Urine by CultureUrine [facility] Centertart: 12-02-2024 Urine cultureLakeHealth Beachwood Medical Centertart: 36-49-8582Lzcluhzr identified in Urine by CultureUrine CultureCl[facility] Hospital Start: 14-80-0811Fuwch [facility] Hospitaltart: 06-26-2024 [facility] Work Phone: Start: 06-05-2024 End: 97-76-5272Wyscpoj encounter hbqzlqfyv55/26/2025 2:30 PM EST Office Visit [facility] KEVYN KENDALL [address] [place] [phone] Geoff Walker, DO [address] [facility] [place] [address] ArrivedNOMS ENT SANDUSKYComment on above:ArrivedStart: 61-57-3392Fvselpl referralAv[facility] Work Phone: Start: 78-06-5402Giyxwof [facility] Work Phone: Start: 04-01-2024 End: 90-48-1434Rmqkddk encounter yvhdzbgcx08/23/2024 3:00 PM EST Procedure Visit NOMJonathan REDDY NEURO [address] [place] [phone] Kane Parker, DO [address] [place], [place] [id number] ArrivedNOMS NE NEUROComment on above:ArrivedStart: 62-50-1350A-ray of both knees, three viewsXR knee BI 3V - NOT FOR ER USELakeHealth Beachwood Medical Centertart: 69-82-0812WR Knee - bilateral 3 ViewsLakeHealth Beachwood Medical Centertart: 39-71-7646Ztwnjaznqvto Vaccine: 65+ Years (1 of 1 - PCV) Pneumococcal Vaccine: 65+ Years (1 of 1 - PCV)NOMS HealthcareStart: 01-10-2024 Patient [facility]Av[facility] Work Phone: Start: 86-41-9739Nzuysybhz vaccinationInfluenza Vaccine (#1)[facility] HealthcareStart: 45-18-5879Yhjcgfixg for malignant neoplasm of breastMammogramNOMS HealthcareStart: 62-57-6333Tkegyklgl for malignant neoplasm of cervixNOMS HealthcareStart: 69-70-7261Mbhtwqzsr for malignant neoplasm of cervixPap SmearNOMS HealthcareStart: 79-62-8133Vhydjnori for malignant neoplasm of colonNOMS HealthcareCT Unspecified body regionClinton Memorial HospitalCT Unspecified body [facility] HospitalDXA Skeletal system.axial Views for bone densityClinton Memorial HospitalPatient EducationLow back pain in adultsAvita Health System [facility] Work Phone: Patient referralAvita Health System [facility] Work Phone: Urine [facility] HospitalUrine [facility] HospitalUrine [facility] HospitalUS Lower extremity vein - rightClinton Memorial HospitalUS Thyroid glandBellwood General Hospital Immunizations Immunization DateImmunizationNotesCare OwbjpbpqSmstmvxd26-34-8155oovqdsptmv, tetanus toxoids and acellular pertussis vaccine, unspecified formulationCornelius Garrison MD Work Phone: [facility]12-20-2021COVID-19 mRNA, Comirnaty (Pfizer)[facility]05-04-2021COVID-19 mRNA, Comirnaty (Pfizer)[facility]04-13-2021COVID-19 mRNA, Comirnaty (Pfizer)[facility]06-30-2019diphtheria, tetanus toxoids and acellular pertussis vaccine, unspecified formulation [facility]10-29-2014tetanus and diphtheria toxoids, adsorbed, preservative free, for adult use (5 Lf of tetanus toxoid and 2 Lf of diphtheria toxoid)[facility] Payers DatePayer CategoryPayerPolicy [id number] Insurance [id number] OTHER [id number] [id number] 2024Medicare [id number] Deex-[id number] 2..840.1.963159.3.579.2.593 [id number] 2.16840.1.186185.3.57[id number] 2.16.840.1.388813.3.57[id number] 2.16.840.1.184063.3.57[id number] 2.16.840.1.151159.3.57[id number] 2.16840.1.522952.3.57[id number] 2.16.840.1.604932.3.57[id number] 2.16.840.1.566386.3.57[id number] 2.16.840.1.510233.3.57[id number] 2.16.840.1.242999.3.57[id number] 2.16.840.1.324913.3.57[id number] 2.16.840.1.725909.3.57[id number] 2.16.840.1.008945.3.57[id number] 2.16.840.1.230595.3.57[id number] 2.16.840.1.127166.3.57[id number] 2.16.840.1.492610.3.57[id number] 2.16.840.1.189853.3.57[id number] 2.16.840.1.826897.3.57[id number] 2.16.840.1.317813.3.579.[id number] 2.16.840.1.648812.3.57[id number] 2.16.840.1.320549.3.57[id number] 2.16.840.1.203268.3.579.[id number] 2.16.840.1.065629.3.579.2.196Private Health InsuranceAeSaint [facility] MNVUWN83/9826 [id number]-[id number] 2.16.840.1.6[id number] 5za5a473-wc87-1756-u562-e94132gx47a4 Social History DateTypeDetailFacilityStart: 12-22-2021 End: 37-50-1373Briza tobacco smoker (finding)[facility] [place]: 58-97-9485IoqahgPxlxqty Surgery [place] Start: 07-31-2023 End: 39-24-0333Rlbitjl smoking status NHISSmoker (finding)[facility]: [id number] Assigned At BirthFeMercy Health Fairfield HospitalTobacco smoking status NHISTobacco smoking consumption unknownNOMS HealthcareStart: 11-91-6431Hbz assigned at birthNot on fileNOMS Healthcare Start: 06-21-2022 End: 79-44-1407HzsEjpatc (finding)[facility]art: 06-05-2024 End: 37-68-5901Zwsiwfa smoking status NHISSmokes tobacco dailyNOMS Healthcare History of tobacco useCigarette SmokerNOMS HealthcareStart: [id number] use and exposureSmokeless tobacco non-userNOMS HealthcareStart: 06-05-2024 Alcoholic beverage intakeEx-drinker (finding)[facility]OMS HealthcareStart: 06-05-2024 History of Social functionNOMS HealthcareSexual OrientationExecutive [facility]rology of [facility] Sigrid Functional Status FzekQyldnohxdnYrlnbkDfnnyyfs85-37-3868Q/AGeneral Surgery [place] Clinical Notes 01-12-2022 to 12-24-2024 Note Date & KejsLphrUzrpdbcb53-17-0675 Hospital Discharge instructions Patient Education 12/24/2024 10:11:35 [...] including vitamins, herbs, eye drops, creams, and qyni-cuv-pafjrao medicines. Any problems you or family members [...] provider tells you to take them. Taking eiua-oub-mfgqmpj medicines, vitamins, herbs, and supplements. Tests You [...] Follow these instructions at home: Medicines Take jyka-abj-nvllzpx and prescription medicines only as told by [...] provider. Document Revised: 12/08/2021 Document Reviewed: 11/06/2020 [employer] Patient Education 2023 [employer] vascular solution. 12/24/2024 09:53:01 Steps to Quit Smoking Steps [...] require a prescription. You can also purchase uhpl-qol-qwyeapk medicines. Medicines may have nicotine in them [...] and encouragement. Call telephone quitlines, such as 7-872-WSJM-NOW, reach out to support groups, or work [...] provider. Document Revised: 03/18/2022 Document Reviewed: 03/18/2022 [employer] Patient Education 2023 [employer] Follow Up Care 12/17/2024 10:08:14 With:BRIE MCKAY MD, URL Address: When: Unknown [facility] 09-16-2025 NotePatient Education Pulmonary Medicine Steps to [...] require a prescription. You can also purchase zvez-fab-ivuwukf medicines. Medicines may have nicotine in them [...] and encouragement. Call telephone quitlines, such as 6-569-NVDR-NOW, reach out to support groups, or work [...] right away, not s (more content not included)...[facility]08-19-2025 Hospital Discharge instructions Patient Education 11/26/2024 [...] require a prescription. You can also purchase hrdb-sno-ayfnnmd medicines. Medicines may have nicotine in them [...] and encouragement. Call telephone quitlines, such as 2-418-SBTK-NOW, reach out to support groups, or work [...] provider. Document Revised: 03/18/2022 Document Reviewed: 03/18/2022 [employer] Patient Education 2023 [employer] vascular solution. 11/26/2024 09:15:52 Bladder Cancer Bladder Cancer Bladder [...] cells. Follow these instructions at home: Take ziyt-ueo-fxjsfoc and prescription medicines only as told by [...] is important. Where to find more information [place] [employer] (ACS): cancer.org National Cancer Sharon (NCI): cancer.gov Contact a health care provider [...] provider. Document Revised: 03/07/2022 Document Reviewed: 03/07/2022 [employer] Patient Education 2023 [employer] vascular solution. Follow Up Care 11/13/2024 13:19:08 With:WOODY TAVERAS, GERALDO BAIRD Address: When: Unknown [facility] 08-19-2025 NotePatient Education Oncology Bladder Cancer Bladder [...] Follow these instructions at home: ??? Take mmwz-ueh-vbyfsja and prescription medicines only as told by [...] important. Where to find more information ??? [place] [employer] (ACS): cancer.org ??? National Cancer Sharon (NCI): cancer.gov Contact a health care provider [...] This information is n (more content not included)...[facility] 11-15-2024 Evaluation note* Diagnosis Onset Date Resolution Status Admit Date Bladder mass acuteAugust 2024 2:27pmLumbar radiculopathy, chronicacuteAugust 2024 2:27pmBladder canceracuteAugust 2024 11:24amFebrile illnessacuteAugust 2024 11:24amLeft flank painacuteAugust 2024 11:24amThrushacuteAugust 2024 11:34amUTI (urinary tract infection)acuteAugust 2024 11:34am Bladder canceracuteSeptember 2024 2:26pmLumbar radiculopathy, chronicacute December 23, 2024 2:26pmUTI (urinary tract infection)acuteSept2024 2:26pmVaginal yeast infectionacuteSept2024 2:26pmUTI (urinary tract infection)acuteSept2024 9:57am [facility] Work Phone: 1(346) 530-981806-20-2025 Evaluation note* Diagnosis Onset Date Resolution Status Admit Date Gastroenteritis acuteJune 2024 2:23pmLumbar radiculopathy, chronicacuteJune 2024 2:23pm [facility] Work Phone: 1(494) 648-832206-20-2025 Evaluation note* Diagnosis Onset Date Resolution Status Admit Date Gastroenteritis acuteJune 2024 2:23pmLumbar radiculopathy, chronicacuteJune 2024 2:23pmBladder massacuteAugust 2024 2:27pm [facility] Work Phone: 1(846) 656-923606-20-2025 Evaluation note* Diagnosis Onset Date Resolution Status Admit Date Gastroenteritis acuteJune 2024 2:23pmLumbar radiculopathy, chronicacuteJune 2024 2:23pmBladder massacuteAugust 2024 2:27pmLumbar radiculopathy, chronicacute November 15, 2024 2:27pmBladder canceracuteAugust 2024 11:24amFebrile illnessacuteAugust 2024 11:24amLeft flank painacuteAugust 2024 11:24am [facility] Work Phone: 1(648) 478-627506-20-2025 Evaluation note* Diagnosis Onset Date Resolution Status Admit Date Gastroenteritis acuteJune 2024 2:23pmLumbar radiculopathy, chronicacuteJune 2024 2:23pmBladder massacuteAugust 2024 2:27pmLumbar radiculopathy, chronicacute November 15, 2024 2:27pmBladder canceracuteAugust 2024 11:24amFebrile illnessacuteAugust 2024 11:24amLeft flank painacuteAugust 2024 11:24amThrushacuteAugust 2024 11:34amUTI (urinary tract infection)acute December 06, 2024 11:34am [facility] Work Phone: 1(690) 738-868006-20-2025 Evaluation note* Diagnosis Onset Date Resolution Status Admit Date Gastroenteritis acuteJune 2024 2:23pmLumbar radiculopathy, chronicacuteJune 2024 2:23pmBladder massacuteAugust 2024 2:27pmLumbar radiculopathy, chronicacute November 15, 2024 2:27pmBladder canceracuteAugust 2024 11:24amFebrile illnessacuteAugust 2024 11:24amLeft flank painacuteAugust 2024 11:24amThrushacuteAugust 2024 11:34amUTI (urinary tract infection)acute December 06, 2024 11:34amUTI (urinary tract infection)acuteSeptember 2024 2:26pm [facility] Work Phone: 1(477) 460-252202-26-2025 History of Present illness Narrative* Geoff Walker, - 06/05/2024 2:30 PM EST Subjective Patient ID: HPI 64-year-old female referred for a right thyroid mass. This was found during a workup for something else. Ultrasound was done showing a 2.8 cm inferior based right thyroid mass. FNA was performed which came back as [place] III, Afirma testing was then done showing [...] back in 1 year documented in this encounterSt. Louis Children's HospitalScjpawpxfd60-00-1031 Hospital Discharge instructionsAmbulatory Orders* Referral to ENT Time Frame: 05/10/24, Location: None [facility] Work Phone: 1(403) 573-664312-23-2024 History of Present illness Narrative* BRENDA Nuñez - 04/01/2024 3:00 PM EST Images from the original note were not included. 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 documented in this encounterSt. Louis Children's HospitalVownnxowjx28-81-2626 Evaluation note* Diagnosis Onset Date Resolution Status Admit Date Lumbar radiculopathy, chronic acuteDecember 2023 8:45amPain in posterior right lower extremityacute March 29, 2024 8:45amRight thyroid noduleacuteDecember 2023 8:45am Cigarette nicotine dependence with nicotine-induced disorderacuteJanuary 2024 3:12pmEncounter for screening for lung canceracuteJanuary 2024 3:12pm predatory animal exterminator (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 of 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acuteJanuary 2024 3:12pmModerate persistent asthma, uncomplicatedacuteJanuary 2024 3:12pmLumbar radiculopathy, chronicacuteMarch 2024 8:28am [facility] Work Phone: 1(583) 164-898012-02-2024 Evaluation note* Diagnosis Onset Date Resolution Status [...] 2024 3:12pmModerate persistent asthma, uncomplicatedacuteJanuary 2024 3:12pm [facility] Work Phone: 1(322) 693-792511-15-2024 NotePatient Education Materials Name: Cristine Manley Current [...] for continued care. Thank you for choosing [facility] for your care.[facility]10-31-2024 Evaluation note* Diagnosis Onset Date Resolution Status Admit Date COPD exacerbation acuteOctober 2023 1:31pmLumbar radiculopathy, chronicacuteOctober 2023 1:31pmMenopauseacuteOctober 2023 1:31pmRib fractureacuteOctober 2023 1:31pmCigarette nicotine dependence with nicotine-induced disorderacute [place] 2023 3:14pmEncounter for immunizationacuteDecember 2023 3:14pmEncounter for screening for lung canceracuteDecember 2023 3:14pm Moderate persistent asthma, uncomplicatedacuteDecember 2023 3:14pmLumbar radiculopathy, chronicacuteDecember 2023 8:45amPain in posterior right lower extremityacuteDecember 2023 8:45amRight thyroid noduleacuteDecember 2023 8:45amCigarette nicotine dependence with nicotine-induced disorder acuteJanuary 2024 3:12pmEncounter for screening for lung canceracuteJanuary 2024 3:12pmLong term (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 of 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acuteJanuary 2024 3:12pmModerate persistent asthma, uncomplicatedacuteJanuary 2024 3:12pm [facility] Work Phone: 1([phone]) 901-944910-16-2024 Evaluation note* Diagnosis Onset Date Resolution Status Admit Date Bilateral knee pain acuteOctober 2023 2:05pmPrimary osteoarthritis of both kneesacuteOctober 2023 2:05pmCOPD exacerbationacuteOctober 2023 1:31pmLumbar radiculopathy, chronicacuteOctober 2023 1:31pmMenopauseacuteOctober 2023 1:31pmRib fractureacuteOctober 2023 1:31pmCigarette nicotine dependence with nicotine-induced disorderacutecember 2023 3:14pmEncounter for immunizationacuteDecember 2023 3:14pmEncounter for screening for lung canceracuteDecember 2023 3:14pmModerate persistent asthma, uncomplicated acuteDecember 2023 3:14pmLumbar radiculopathy, chronicacuteDecember 2023 8:45amPain in posterior right lower extremityacuteDecember 2023 8:45amRight thyroid noduleacuteDecember 2023 8:45amCigarette nicotine dependence with nicotine-induced disorderacuteJanuary 2024 3:12pmEncounter for screening for lung canceracuteJanuary 2024 3:12pmModerate persistent asthma, uncomplicatedacuteJanuary 2024 3:12pm [facility] Work Phone: 1(404) 185-235510-05-2022 NoteOPERATIVE NOTE OPERATION DATE: 01/12/2022 PREOPERATIVE DIAGNOSIS: [...] of the polyp. CC: Cornelius Garrison M.D.[facility] Plan note No data available for this section General Surgery [place] Evaluation + Plan note Future Appointments Appointment Date:11/26/2024 08:45:00 AM Scheduled Provider:BRIE MCKAY MD Location:[facility] Appointment Type:URO Office Visit [facility] evaluation + Plan note Future Appointments Appointment Date:03/07/2025 09:00:00 AM Scheduled Provider: Location:[facility] Appointment Type:Urology CALL PAT FT Appointment Date:03/10/2025 01:00:00 PM Scheduled Provider: Location:[facility] Appointment Type:Urology FT [facility] Evaluation + Plan note Future Appointments Appointment Date:02/24/2025 01:00:00 PM Scheduled Provider: Location:[facility] Appointment Type:Urology FT Appointment Date:03/07/2025 09:00:00 AM Scheduled Provider: Location:[facility] Appointment Type:Urology CALL PAT FT [facility] Evaluation note* Diagnosis Onset Date Resolution Status Lumbar radiculopathy, chronic acute [facility] Work Phone: Evaluation note* Diagnosis Onset Date Resolution Status Lumbar radiculopathy, chronic acuteHeadacheacuteJoint painacuteTick biteacute [facility] Work Phone: Evaluation note* Diagnosis Onset Date Resolution Status Headache acuteJoint painacuteTick biteacuteChronic obstructive pulmonary disease, unspecifiedacuteLumbar radiculopathy, chronicacute [facility] Work Phone: Evaluation note* Diagnosis Onset Date Resolution Status Chronic obstructive pulmonary disease, u nspecified acuteLumbar radiculopathy, chronicacuteBilateral knee painacuteCOPD exacerbation acuteLumbar painacuteLumbar radiculopathy, chronicacuteBilateral knee painacute Primary osteoarthritis of both kneesacute [facility] Work Phone: Evaluation note* Diagnosis Onset Date Resolution Status Bilateral knee pain acuteCOPD exacerbationacuteLumbar painacuteLumbar radiculopathy, chronicacute Bilateral knee painacutePrimary osteoarthritis of both kneesacuteMenopauseacute [facility] Work Phone: Evaluation note* Diagnosis Lumbosacral radiculopathy- Primary Thoracic or lumbosacral neuritis or radiculitis, unspecified Numbness and tingling Disturbance of skin sensation documented in this encounter [facility] HealthcareEvaluation note* Diagnosis Thyroid nodule (CMS/HCC)- Primary Nontoxic uninodular goiter documented in this encounter [facility] HealthcareHospital Discharge instructions No data available for this section General Surgery [place] [facility] Discharge instructionsAmbulatory Orders* Referral to Orthopedics Time Frame: 06/26/24, Location: None Selected [facility] Work Phone: Progress note No data available for this section General Surgery [place] Reason for referral (narrative)No reason for referral information availableMetrohealth [facility] Work Phone: Reniwp for visit Narrative* Other Medical (Routine) - ClosedSpecialtyDiagnoses / ProceduresReferred By ContactReferred To Contact Neurology Diagnoses Neuralgia and neuritis, unspecified Procedures CO NEEDLE EMG EA EXTREMTY W/PARASPINL AREA COMPLETE CO NERVE CONDUCTION STUDIES 9-10 STUDIES Ofelia Arceo PA-C [address] [place] [address] Phone: tel: fax: Cecil Fields MD [address] [place] [address] Phone: tel: fax: Referral IDStatusReasonStart DateExpiration DateVisits RequestedVisits [id number] Perform Procedure / 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 Dennis) February 12, 2025 10:40am Additional Source Comments Care Team (unrecognized sect ion and content) Team Status: Active Member Role Status Dates Cornelius Garrison MD Primary Care Provider Active Team Status: Active Member Role Status Dates Cornelius Garrison MD Primary Care Provider Active Start: November 03, 2024 Carlin Oleary MDAttending ProviderActiveStart: November 03, 2024 Team Status: Inactive [...] Start: December 06, 2024 End: December 06, 2024Matthew Root ProviderActiveStart: December 06, 2024 End: December 06, 2024 Team Status: Active Member Role Status Dominick Garrison MD Primary Care Provider Active Start: December 11, 2024 Сергей Arnett DOAttending ProviderActiveStart: December 11, 2024 Team Status: Active Member Role Status Dates Cornelius Garrison MD Primary Care Provider Active Start: December 12, 2024 Jone Quinteromary , MDAttending ProviderActiveStart: December 12, 2024 Team Status: Active Member Role Status Dates Cornelius Garrison MD Primary Care Provider Active Start: December 13, 2024 Raheem Mckeon , DOAttending ProviderActiveStart: December 13, 2024 Team Status: Active Member Role Status Dates Cornelius Garrison MD Primary Care Provider Active Start: December 14, 2024 Raheem Mckeon , DOAttending ProviderActiveStart: December 14, 2024 Team Status: Active Member Role Status Dates Cornelius Garrison MD Primary Care Provider Active Start: December 15, 2024 Gianni France , DOAttending ProviderActiveStart: December 15, 2024 Team Status: [...] 01, 2025 End: January 01, 2025Cornelius Garrison MDAttending ProviderActiveStart: January 01, 2025 End: January 01, 2025 Team Status: Inactive Member Role Status Dates Cornelius Garrison MD Primary Care Provide r, Attending Provider Active Start: March 29, 2024 End: March 29, 2024 Team Status: Inactive Member Role Status Dates Cornelius Garrison MD Primary Care Provider Active Start: April 15, 2024 End: April 15, 2024Scott Dennis DOAttending ProviderActiveStart: April 15, 2024 End: April [...] Active Start: January 19, 2024 Geoff Rock DOAttending ProviderActiveStart: January 19, 2024 Team Status: Inactive Member Role Status Dates Cornelius Garrison MD Primary Care Provider Active Start: January 24, 2024 End: January 24, 2024Alexandro Galvez , DOAttending ProviderActiveStart: January 24, 2024 End: January [...] Active Start: March 04, 2024 Reynaldo Tee MDAttending ProviderActiveStart: March 04, 2024 Team Status: Inactive Member Role Status Dominick Garrison MD Primary Care Provide r, Referring Provider Active Start: March 11, 2024 End: March 11, 2024Scott Dennis DOAttending ProviderActiveStart: March 11, 2024 End: March 11, 2024 Team Status: Active Member Role Status Dates Cornelius Garrison MD Primary Care Provider Active Start: March 21, 2024 Scott Dennis DOAttending ProviderActiveStart: March 21, 2024 Team Status: Inactive Member Role Status Dates Cornelius Garrison MD Primary Care Provide r, Attending Provider Active Start: July 31, 2023 End: July 31, 2023 Team Status: Inactive Member Role Status Dates Cornelius Garrison MD Primary Care Provider Active Start: October 13, 2023 End: October 13, 2023Zuhairgenethalie Siu APRN LOAD CHECKER-CAttenmanfred ProviderActiveStart: October 13, 2023 End: October 13, 2023 Team Status: Active Member Role Status Dates Cornelius Garrison MD Primary Care Provider Active Start: May 26, 2023 MONIE LuisAAtdebra ProviderActiveStart: May 26, 2023 Team Status: Inactive [...] Care Provider Active Start: January 24, 2024 Ran Bennett ProviderActiveStart: January 24, 2024 Team MemberRelationshipSpecialtyStart DateEnd Date Cornelius Garrison MD [address] [place] [id number] [facility] - [facility] Tptglhet28/18/24 Ofelia Arceo MD [address] [address] Referring PhysicianInternal Vgeqjmle79/18/24Team MemberRelationshipSpecialty [place] [address] [place] [id number] [facility]CP - GeneralFagaebler [facility] Tpbkfmxv17/18/24 Ofelia Arceo MD [address] [address] Referring PhysicianInternal Sohbrjxt32/18/24Team MemberRelationshipSpecialty Start DateEnd Date Cornelius Garrison MD [address] [place] [address] PCP - GeneralFamily Swclbhzi09/18/24 Ofelia Arceo MD [address] [address] Referring PhysicianInternal Ciylivlx60/18/24 Geoff Walker DO [address] [place] [place] [address] Otolaryngology2Team MemberRelationshipSpecialtyStart DateEnd Date Cornelius Garrison MD [address] [place] [address] PCP - GeneralFamily Pwknwjpt25/18/24 Ofelia Arceo MD [address] [address] Referring PhysicianInternal Mnqdasvr11/18/24 Geoff Walker DO [address] [place] [address] Otolaryngology2 Team Status: Inactive Member Role Status Dates Cornelius Garrison MD Primary Care Provider Active Start: September 27, 2024 End: September 27, 2024Cornelius Garrison MDAttdavid ProviderActiveStart: September 27, 2024 End: September 27, 2024 Team Status: Active Member Role Status Dates Cornelius Garrison MD Primary Care Provider Active Start: October 02, 2024 Heide Diamond ProviderActiveStart: October 02, 2024 Team Status: Active Member Role/Relationship Status Dates Cornelius Garrison MD Primary Care Provider Active Team Status: Inactive Member Role/Relationship Status Dates Cornelius Garrison MD Primary Care Provider Active Start: November 15, 2024 End: November 15, 2024Cornelius Garrison MDAttending ProviderActiveStart: November 15, 2024 End: November 15, 2024 Team Status: Inactive Member Role/Relationship Status Dates Cornelius Garrison MD Primary Care Provider Active Start: December 02, 2024 End: December 02, 2024Cornelius Garrison MDAttending ProviderActiveStart: December 02, 2024 End: December 02, 2024 Team Status: Inactive Member Role/Relationship Status Dates Cornelius Garrison MD Attending Provider Active St art: December 02, 2024 End: December 02, 2024 Team Status: Inactive Member Role/Relationship Status Dates Cornelius Garrison MD Primary Care Provider Active Start: December 06, 2024 End: December 06, 2024Cornelius Garrison MDAttending ProviderActiveStart: December 06, 2024 End: December 06, 2024 Team Status: Active Member Role/Relationship Status Dates Cornelius Garrison MD Primary Care Provider Active Start: December 11, 2024 Сергей Arnett DOAttending ProviderActiveStart: December 11, 2024 Team Status: Active Member Role/Relationship Status Dates Cornelius Garrison MD Primary Care Provider Active Start: December 12, 2024 Jone Gonsalves MDAttending ProviderActiveStart: December 12, 2024 Team Status: Active Member Role/Relationship Status Dates Cornelius Garrison MD Primary Care Provider Active Start: December 13, 2024 Raheem Mckeon DOAttending ProviderActiveStart: December 13, 2024 Team Status: Active Member Role/Relationship Status Dates Cornelius Garrison MD Primary Care Provider Active Start: December 14, 2024 Raheem Mckeon DOAttending ProviderActiveStart: December 14, 2024 Team Status: Active Member Role/Relationship Status Dates Cornelius Garrison MD Primary Care Provider Active Start: December 15, 2024 Gianni France DOAttending ProviderActiveStart: December 15, 2024 Team Status: Active Member Role/Relationship Status Dates Cornelius Garrison MD Primary Care Provider Active Start: December 17, 2024 Vera Hdez CMAAttending ProviderActiveStart: December 17, 2024 Team Status: Inactive Member Role/Relationship Status Dates Cornelius Garrison MD Primary Care Provider Active Start: December 23, 2024 End: December 23, 2024Clair Rootending ProviderActiveStart: December 23, 2024 End: December 23, 2024 Team Status: Inactive Member Role/Relationship Status Dates Cornelius Garrison MD Primary Care Provider Active Start: January 01, 2025 End: January 01, 2025Matthew Root ProviderActiveStart: January 01, 2025 End: January 01, 2025 Team Status: Inactive Member Role/Relationship Status Dates Cornelius Garrison MD Primary Care Provider Active Start: January 01, 2025 End: January 01, 2025Matthew Root ProviderActiveStart: January 01, 2025 End: January 01, 2025 Team Status: Active Member Role/Relationship Status Dates Cornelius Garrison MD Primary Care Provider Active Start: February 03, 2025 Jose L Meza MDAttending ProviderActiveStart: February 03, 2025 Team Status: Inactive Member Role/Relationship Status Dates Cornelius Garrison MD Primary Care Provider Active Start: February 12, 2025 End: February 12, 2025Matthew Root ProviderActiveStart: February 12, 2025 End: February 12, 2025 INFORMATION SOURCE (unrecogn ized section and content) DATE CREATED AUTHOR 04/01/2022 [facility] DATE CREATED AUTHOR AUTHOR'S ORGANIZ ATION 06/07/2024 [facility] DATE CREATED AUTHOR AUTHOR'S ORGANIZ ATION 10/02/2024 [facility] DATE CREATED AUTHOR AUTHOR'S ORGANIZ ATION 12/26/2024 [facility] DATE CREATED AUTHOR AUTHOR'S ORGANIZ ATION 01/10/2025 [facility] DATE CREATED AUTHOR AUTHOR'S ORGANIZ ATION 02/19/2025 [facility] Goals (unrecognized section and content) Goals may [...] BE BASED ON THE PRIMARY CLINICAL RECORDS. [facility] [employer] [facility]. provides no warranty or guarantee of the accuracy or completeness of information in this document.
--- NOTE | 2025-02-20 07:51 | CA_ITS ---
Patient Name: KARLENE JIMENEZ MR#: [id number] : 1960 Exam Date: 02/20/2025 Ordering Doctor: DR JAYDEN GALE M.D. ECHOCARDIOGRAM REPORT PROCEDURE: CA ECHO DOPPLER COMPLETE INDICATIONS: Pre op, Abnormal EKG, GOLDBERG COMPARISON: None. DESCRIPTION: COMPLETE ECHOCARDIOGRAM Real-time transthoracic echocardiography with 2D, M-mode, spectral and color flow Doppler performed. QUALITY: Technical quality was good. LEFT VENTRICLE: Normal chamber size. Thickened septal wall. Mild concentric hypertrophy. Global left ventricular systolic function is normal. Estimated left ventricular ejection fraction is 60%. LV EF: Normal left ventricular ejection fraction, (>55%). DIASTOLIC: Grade I diastolic dysfunction. ATRIAL SEPTUM: LEFT ATRIUM: Mild dilatation. RIGHT ATRIUM: Mild dilatation. RIGHT VENTRICLE: Normal chamber size. Normal right ventricular systolic function. TRICUSPID VALVE: Normal mobility and thickness. No stenosis with Mild pulmonary hypertension. The RVSP is 40 mmHg. MITRAL VALVE: Mildly thickened with normal mobility. No evidence of mitral valve stenosis. There is no mitral annular calcification. Trivial mitral regurgitation. AORTIC VALVE: Normal trileaflet appearance. No visible sclerosis. Normal leaflet mobility. No evidence of aortic valve stenosis. Trivial aortic regurgitation. AORTIC ROOT: Normal diameter and appearance. The aortic root measures 3.5 cm. The ascending aorta is normal in size and measures 3.1 cm. PULMONIC VALVE: Normal thickness and mobility. No stenosis. No regurgitation. PERICARDIUM: No evidence of pericardial effusion. IVC: Collapses with inspiration. Mild dilation of the IVC measuring 2.2 cm PLEURA: CONCLUSION: 1. Mild concentric left ventricular hypertrophy with normal systolic function. Estimated LVEF is 60%. 2. Normal right ventricular size and systolic function. 3. Mild diastolic dysfunction. 4. No significant valvular dysfunction. 5. Mild biatrial dilatation. 6. Mildly elevated right-sided pressures. Adult Echocardiography Procedure Report Left Ventricle LVEDD (3.7 - 5.6 cm): 4.05 cm LVESD (2.2 - 4.0 cm): 3.22 cm LVIVS thickness (0.6 - 1.2 cm): 1.38 cm LVPW thickness (0.5 - 1.0 cm): 0.98 cm e': 0.06 m/s E - e': 8.28 LVOT Max Gradient: 3.37 mm[Hg] LVOT Area (cm2): 0.92 m/s Peak Velocity (LVOT): 0.92 m/s Mean Velocity (LVOT): 0.59 m/s LVOT Diameter 2.07 cm Left Ventricular Ejection Fraction: 60 % Left Atrium LA Volume Index (2D A2C): 37.33 ml/m2 Left Atrium Systolic Dimension: 3.52 cm Mitral Valve MV E to A Ratio: 0.48 Mitral Valve A-Wave Peak Velocity: 1.07 m/s Mitral Valve E-Wave Peak Velocity: 0.51 m/s Right Ventricle RV Internal Diastolic Dimension: 2.91 cm Aorta AO Root Diam: 3.51 cm Ascending Ao Diam: 3.07 cm Aortic Valve AoV Area (Peak Ernesto): 2.77 cm2, 2.77 cm2 AoV Area (VTI): 2.93 cm2, 2.93 cm2 Peak Velocity(Antegrade Flow): 1.12 m/s Peak Gradient(Antegrade Flow): 5.00 mm[Hg] Mean Velocity(Antegrade Flow): 0.78 m/s Mean Gradient(Antegrade Flow): 2.76 mm[Hg] Velocity Time Integral: 23.00 cm Tricuspid Valve Peak Velocity (Regurgitant Flow): 2.17 m/s, 2.81 m/s, 2.80 m/s, 2.62 m/s Pulmonic Valve Mean Gradient: 0.95 mm[Hg] Mean Velocity: 0.44 m/s Peak Velocity: 0.70 m/s, 0.81 m/s Peak Gradient: 1.94 mm[Hg], 2.65 mm[Hg] Right Atrium Right Atrium Systolic Pressure: 48.39 ml, 48.39 ml Dictated by: Buthc Burks M.D. on 02/20/2025 at 19:03 Approved by: Butch Burks M.D. on 02/20/2025 at 19:06
== END 2025-02-20 07:41 | disposition home or self-care (01) ==
LOC: CARD 07:40
PROVIDERS: PCP Family Medicine; Visit Provider Internal Medicine Interventional Cardiology
DX: Z01.818 Encounter for other preprocedural examination (principal); R06.09 Other forms of dyspnea
CPT/HCPCS: 93306